=== PATIENT | male | born 1970 | race Caucasian/White ===

== ENCOUNTER 2023-08-09 13:11 | Inpatient (IN) ==
[2023-08-09] MEDS ORDERED: MULTI-VITAMIN INFUSION 10 ML, THIAMINE HCL 100 MG, FOLIC ACID 1 MG in SODIUM CHLORIDE 0... IV ONE (13:28)
[2023-08-09] MEDS ORDERED: SODIUM CHLORIDE 0.9% 1,000 ML IV ONE ×2 (13:28→15:31)
[2023-08-09] MEDS ORDERED: THIAMINE HCL 200 MG in SODIUM CHLORIDE 0.9% 50 ML IV STA (13:28)
[2023-08-09] MEDS ORDERED: ALBUT/IPRATROP 3MG/0.5MG NEB 3 ML VIAL NEB STA (13:29)
[2023-08-09] MEDS ORDERED: ALBUT/IPRATROP 3MG/0.5MG NEB 3 ML VIAL NEB SCH (13:29)
[2023-08-09] MEDS ORDERED: guaiFENesin 600 MG TABCR PO STA (13:29)
[2023-08-09] MEDS ORDERED: SODIUM CHLORIDE 0.65% NA SOLN 45 ML (OCEAN) ONE (13:29)
[2023-08-09] MEDS ORDERED: guaiFENesin 600 MG TABCR PO SCH (13:29)
[2023-08-09] MEDS ORDERED: SODIUM CHLORIDE 0.65% NA SOLN 45 ML (OCEAN) SCH (13:29)
--- NOTE | 2023-08-09 13:49 | Emergency Department Note ---
Impression & Plan Sepsis, Multifocal pneumonia, Hypokalemia, Hyponatremia, Hypomagnesemia, Influenza A, Pancytopenia, Hypoxia, Alcohol use ED Provider Note NAME: INDERJIT LO AGE: 52 SEX: M ARRIVES VIA: Walk-In INFORMANT: Patient ED PROVIDER(S): Garfield Haddad MD CHIEF COMPLAINT: Shortness of breath PLAN: Disposition: Admit MEDICAL DECISION MAKING: The patient is a pleasant 52-year-old gentleman with a past medical history of everyday smoking, frequent alcohol use, homelessness who presents to emergency department via walk-in for evaluation of worsening cough congestion, shortness of breath, body aches that he reports been going on for the past 2 weeks. He reports he also had a mechanical fall approximately 2 weeks ago when he tripped over a parking pillar hitting his face. He did not seek medical attention at that time. He reports over the past week his symptoms have worsened associated nausea vomiting diarrhea. He reports tightness in his chest where it is difficult to take a full breath. Of note, the patient did arrive to emergency department during time of high volume, acuity and prolonged emergency department waiting times. On my evaluation the patient is uncomfortable but no acute distress, afebrile with blood pressure initially 90s/60s in triage with heart in the 90s. O2 saturation was 90% on room air. He appears clinically dry. He has wheezes and rhonchi bilateral lower lung hare with normal respiratory effort. He has subacute left gita-obital ecchymosis and subacute 1cm linear left eyebrow laceration that has healed on its own. There is suspected possible old nasal fracture as well without nasal laceration. EKG without overt acute ischemia. Chest x-ray demonstrates multifocal pneumonia. WBC 4.4K with lymphopenia 0.72. There is mild left shift of 0.24 K. H/H 9.7/25.7 and platelets 66 K all without prior for comparison though could be related to viral illness as well as alcohol use. VBG is unremarkable. Chemistry without metabolic acidosis. Sodium 127 with relatively normal glucose likely related to poor solute intake and alcohol consumption. Potassium 2.8 with IV repletion initiated. Magnesium is 1.6 and phosphorus 1.9 with IV repletion initiated. LFTs with total Rishi 3.0 and direct bilirubin 1.6 with AST 75 but with normal alk phos and so nonspecific. Initial high-sensitivity troponin is 23, mildly above upper limit of normal with repeat 26.7, essentially unchanged. Lipase is not elevated. Procalcitonin is elevated at 0.9 consistent with suspicion for bacterial pneumonia in the setting of influenza A H1 2009 infection confirmed on PCR testing. Patient was treated with IV fluid hydration with 30 cc/kg including 2 L of normal saline and 1 L of normal saline via banana bag. Blood pressure had stabilized and heart rate improved to the 80s. Patient was treated for pneumonia with initial dose of IV Zosyn as well as IV doxycycline for atypical coverage. MRSA swab was ordered. Additional treatment with DuoNeb and Solu- Medrol for component of COPD exacerbation. Findings reviewed with the patient and he does agree with plan for admission for further management. CT imaging ordered for additional characterization of the patient's presentation. Case was discussed with Rosalba Viramontes, with Dr. Brent cmcraryist who will evaluate the patient for admission. Respiratory viral panel/[employer] did subsequently result was positive for influenza A per above. Admitting team was aware. Additionally, CT of the head was negative for ICH. Note is made of likely subacute nasal fracture given the clinical context. Pansinus disease is also seen. CT of the chest was negative for PE. Multifocal pneumonia is further characterized. Lymphadenopathy likely reactive to this. CT of the abdomen pelvis was negative for acute intra- abdominal process. Note is made of hepatic steatosis as well as cholelithiasis without evidence of cholecystitis. Trace small amount of ascites is noted. Further management per admitting team. Triage Nursing notes reviewed and agree them. Prior/external medical records reviewed Vital Signs: reviewed Differential diagnosis: Sepsis, UTI, pneumonia, metabolic, electrolyte abnormalities, cardiac sources, intracerebral event, toxicologic, neurologic, as well as other pathologies. ER treatment provided: See below. Diagnostics interpreted by me: ECG: Sinus rhythm with PACs, 86 bpm, no ectopy, no overt ST elevation or depression, QTc 509, QRS 102. Cardiac Monitoring: An order for continuous cardiac monitoring was placed and demonstrated Sinus rhythm with PACs, 86 bpm, no ectopy. Laboratory studies: See below Imaging studies: See below Consultation(s): Rosalba Viramontes, with Dr. Brent Navarrete hospitalist HPI: The patient is a pleasant 52-year-old gentleman with a past medical history of everyday smoking, frequent alcohol use, homelessness who presents to emergency department via walk-in for evaluation of worsening cough congestion, shortness of breath, body aches that he reports been going on for the past 2 weeks. He reports he also had a mechanical fall approximately 2 weeks ago when he tripped over a parking pillar hitting his face. He did not seek medical attention at that time. He reports over the past week his symptoms have worsened associated nausea vomiting diarrhea. He reports tightness in his chest where it is difficult to take a full breath. ROS: See above HPI for pertinent positives & negatives. A total of 10 systems reviewed and were otherwise negative. VITALS:See Below PHYSICAL EXAMINATION: GENERAL: Awake, alert, unkempt, ill-appearing, in no distress HENT: Normocephalic, atraumatic. Subacute left gita-obital ecchymosis and subacute 1cm linear left eyebrow laceration that has healed on its own. There is suspected possible old nasal fracture as well without nasal laceration. Oropharynx with dry mucous membranes and otherwise unremarkable. EYES: Normal conjunctiva. Sclera non-icteric. NECK: Supple. No nuchal rigidity. FROM. No JVD. RESPIRATORY: Wheezing rhonchi bilateral lower lung hare. No significant increased work of breathing. CARDIAC: Regular rate, normal rhythm. Extremities warm and well perfused. Pulses equal. ABDOMEN: Soft, non-distended. No tenderness to palpation. No rebound or guarding. No masses. RECTAL: Deferred. MUSCULOSKELETAL: Chest examination reveals no tenderness. The back is symmetrical on inspection without obvious abnormality. There is no CVA tenderness to palpation. No joint edema. LOWER EXTREMITIES: Calves are equal size bilaterally and non-tender. No edema. No discoloration. NEURO: Normal sensorium. No sensory or motor deficits noted. SKIN: No rash or jaundice noted. ED COURSE: Critical Care: I have personally spent greater than 65 minutes of critical care time in the direct management of this patient. This includes bedside care, interpretation of diagnostic studies, and testing, discussion with consultants, patient, and family members, and other required patient management activities. This 65 minutes is in excess of all separately billable procedures. Garfield Haddad MD Past Med/Surg History Medical History Homeless Current every day smoker Alcohol use Patient denies significant medical history Surgical History S/P cataract extraction right eye History of tonsillectomy History of hernia surgery INFANCY Family History Mother Stroke Diabetes Other Colorectal cancer Heart disease Social History Smoking Status: Current every day smoker Cigarettes Per Day: 1 PPD/ADVISED NPO; Second Hand Exposure: No; Do You Dip or Chew Tobacco: No; Hx Alcohol Use: Yes (6 PACK PER WEEK) Hx Substance Use: No Preferred Language: Lao Communication Ability: Effective Imitation Marble Mechanic Required: No Beliefs That Will Affect Care: None Current Living Situation: Other Current Living Situation Comment: STAYING BETWEEN PEOPLE NOW FAMILY/FRIENDS Feels Safe at Home: Yes Safety Concerns: Feels Safe At This Time Assistive Devices: None Allergies Allergies Allergy/AdvReac Type Severity Reaction Status Date / Time Penicillins Allergy Unknown PT WOULD Verified 08/09/23 16:03 NOT SAY WHAT HIS REACTION WAS. Home Meds Home Medications Medication Instructions Recorded Confirmed No Known Home Medications 08/09/23 08/09/23 Results & Data (ED) Vital Signs Vital Signs - 24 hr 08/09/23 13:15 08/09/23 14:12 08/09/23 14:14 Temperature 36.1 C L Temperature Source Temporal Artery Scan Pulse Rate 92 H Pulse Rate [Apical] 83 Respiratory Rate 20 22 Blood Pressure 96/66 L Blood Pressure [Right Arm] 119/76 Blood Pressure Mean 76 Blood Pressure Mean [Right Arm] 90 Pulse Oximetry 90 91 91 Oxygen Delivery Method Room Air Room Air Room Air Sepsis Recent Fever Within 48 Hours No Sepsis New/Unexplained Change in Mental Status N/A Sepsis Action Taken by Nursing No Action Required 08/09/23 14:27 Temperature Temperature Source Pulse Rate 80 Pulse Rate [Apical] Respiratory Rate Blood Pressure Blood Pressure [Right Arm] Blood Pressure Mean Blood Pressure Mean [Right Arm] Pulse Oximetry Oxygen Delivery Method Sepsis Recent Fever Within 48 Hours Sepsis New/Unexplained Change in Mental Status Sepsis Action Taken by Nursing Laboratory Data Attestation: I reviewed the patient's lab results. 08/09/23 13:45 01/10/24 13:45 Lab Results 08/09/23 08/09/23 08/09/23 Range/Units 13:45 14:15 14:49 WBC 4.48 L (4.8-10.8) K/ul RBC 2.28 L (4.70-6.10) M/uL Hgb 9.7 L (14.0-18.0) g/dl Hct 25.7 L (42.0-52.0) % MCV 112.7 H (80.0-100.0) fL MCH 42.5 H (25.0-34.0) pg MCHC 37.7 H (32.0-36.0) g/dL RDW Std Deviation 65.6 H (36.4-46.3) fL RDW Coeff of Ham 16.0 H (11.5-14.5) % Plt Count 66 L (130-400) K/uL MPV 12.0 (9.4-12.4) fL Immature Gran % (Auto) 5.4 % Neut % (Auto) 73.0 % Lymph % (Auto) 16.1 % Hodgeman % (Auto) 4.7 % Eos % (Auto) 0.4 % Baso % (Auto) 0.4 % Neut # (Auto) 3.27 (1.40-6.50) K/uL Lymph # (Auto) 0.72 L (1.20-3.40) K/uL Hodgeman # (Auto) 0.21 (0.11-0.59) K/uL Eos # (Auto) 0.02 (0.00-0.50) K/uL Baso # (Auto) 0.02 (0.00-0.20) K/uL Immature Gran # (Auto) 0.24 H (0.01-0.20) K/uL Absolute Nucleated RBC 0.11 (0.00-0.12) K/uL Nucleated RBC % (auto) 2.5 % Dohle Bodies 1+ Platelet Estimate Decreased L (Normal) Polychromasia 1+ Macrocytosis Present VBG pH 7.39 (7.36-7.41) VBG pCO2 48 (38-50) mmHg VBG pO2 21 mmHg VBG HCO3 29 mmol/L VBG O2 Saturation < 60.0 % VBG Base Excess 3.3 mEq/L Sodium 127 L (136-145) mmol/L Potassium 2.8 L (3.5-5.1) mmol/L Chloride 89 L (98-107) mmol/L Carbon Dioxide 27 (21-32) mmol/L Anion Gap 11 (3-11) BUN 18 (6-23) mg/dl Creatinine 1.18 (0.6-1.4) mg/dl Est Cr Clr Drug Dosing 91.4 ml/min Est GFR ( Amer) 82.9 ml/min Est GFR (Non-Af Amer) 71.5 ml/min BUN/Creatinine Ratio 15.3 (10-20) Glucose 119 H (70-99(Fasting)) mg/dl Osmolality 270 L (280-300) mOsm/kg Lactate 3.9 H* (0.4-2.0) mmol/L Calcium 7.4 L (8.6-10.3) mg/dl Phosphorus 1.9 L (2.5-4.9) mg/dl Magnesium 1.6 L (1.7-2.4) mg/dl Total Bilirubin 3.0 H (0.2-1.0) mg/dl Direct Bilirubin 1.6 H (0-0.2) mg/dl AST 75 H (13-39) U/L ALT 25 (7-52) U/L Alkaline Phosphatase 37 (34-104) U/L Troponin I High Sens 23.9 H (0-20) pg/ml Total Protein 6.1 (6.0-8.3) gm/dl Albumin 2.6 L (3.4-5.0) gm/dl Lipase 21 (11-82) U/L Vitamin B12 (180-914) pg/ml Folate (>5.38) ng/ml Procalcitonin 0.90 H (0-0.5) ng/ml TSH 0.840 (0.300-4.500) uIu/ml Nasal Influ A H1 2008 PCR DETECTED A* (NotDetected) Ethyl Alcohol mg/dL < 10.0 (<10.0) mg/dl Adenovirus (PCR) Not Detected (NotDetected) Anaplasma Smear See Comment Babesia Smear See Comment B. pertussis DNA (PCR) Not Detected (NotDetected) B.parapertussis DNA PCR Not Detected (NotDetected) Lyme Disease IgG Ab Negative (Negative) Lyme Disease IgM Ab Negative (Negative) C. pneumoniae DNA (PCR) Not Detected (NotDetected) Coronavirus OC43 (PCR) Not Detected (NotDetected) Coronavirus HKU1 (PCR) Not Detected (NotDetected) Coronavirus 229E (PCR) Not Detected (NotDetected) SARS-CoV-2 (PCR) Not Detected (NotDetected) Coronavirus NL63 (PCR) Not Detected (NotDetected) Human Metapneumovir PCR Not Detected (NotDetected) Influenza Type B (PCR) Not Detected (NotDetected) M. pneumoniae (PCR) Not Detected (NotDetected) Parainfluenza 1 (PCR) Not Detected (NotDetected) Parainfluenza 2 (PCR) Not Detected (NotDetected) Parainfluenza 3 (PCR) Not Detected (NotDetected) Parainfluenza 4 (PCR) Not Detected (NotDetected) RSV (PCR) Not Detected (NotDetected) Entero/Rhino (PCR) Not Detected (NotDetected) 08/09/23 Range/Units 15:25 WBC (4.8-10.8) K/ul RBC (4.70-6.10) M/uL Hgb (14.0-18.0) g/dl Hct (42.0-52.0) % MCV (80.0-100.0) fL MCH (25.0-34.0) pg MCHC (32.0-36.0) g/dL RDW Std Deviation (36.4-46.3) fL RDW Coeff of Ham (11.5-14.5) % Plt Count (130-400) K/uL MPV (9.4-12.4) fL Immature Gran % (Auto) % Neut % (Auto) % Lymph % (Auto) % Hodgeman % (Auto) % Eos % (Auto) % Baso % (Auto) % Neut # (Auto) (1.40-6.50) K/uL Lymph # (Auto) (1.20-3.40) K/uL Hodgeman # (Auto) (0.11-0.59) K/uL Eos # (Auto) (0.00-0.50) K/uL Baso # (Auto) (0.00-0.20) K/uL Immature Gran # (Auto) (0.01-0.20) K/uL Absolute Nucleated RBC (0.00-0.12) K/uL Nucleated RBC % (auto) % Dohle Bodies Platelet Estimate (Normal) Polychromasia Macrocytosis VBG pH (7.36-7.41) VBG pCO2 (38-50) mmHg VBG pO2 mmHg VBG HCO3 mmol/L VBG O2 Saturation % VBG Base Excess mEq/L Sodium (136-145) mmol/L Potassium (3.5-5.1) mmol/L Chloride (98-107) mmol/L Carbon Dioxide (21-32) mmol/L Anion Gap (3-11) BUN (6-23) mg/dl Creatinine (0.6-1.4) mg/dl Est Cr Clr Drug Dosing ml/min Est GFR ( Amer) ml/min Est GFR (Non-Af Amer) ml/min BUN/Creatinine Ratio (10-20) Glucose (70-99(Fasting)) mg/dl Osmolality (280-300) mOsm/kg Lactate (0.4-2.0) mmol/L Calcium (8.6-10.3) mg/dl Phosphorus (2.5-4.9) mg/dl Magnesium (1.7-2.4) mg/dl Total Bilirubin (0.2-1.0) mg/dl Direct Bilirubin 1.6 H (0-0.2) mg/dl AST (13-39) U/L ALT (7-52) U/L Alkaline Phosphatase (34-104) U/L Troponin I High Sens 26.7 H (0-20) pg/ml Total Protein (6.0-8.3) gm/dl Albumin (3.4-5.0) gm/dl Lipase (11-82) U/L Vitamin B12 1012 H (180-914) pg/ml Folate 7.08 (>5.38) ng/ml Procalcitonin (0-0.5) ng/ml TSH (0.300-4.500) uIu/ml Nasal Influ A H1 2008 PCR (NotDetected) Ethyl Alcohol mg/dL (<10.0) mg/dl Adenovirus (PCR) (NotDetected) Anaplasma Smear Babesia Smear B. pertussis DNA (PCR) (NotDetected) B.parapertussis DNA PCR (NotDetected) Lyme Disease IgG Ab (Negative) Lyme Disease IgM Ab (Negative) C. pneumoniae DNA (PCR) (NotDetected) Coronavirus OC43 (PCR) (NotDetected) Coronavirus HKU1 (PCR) (NotDetected) Coronavirus 229E (PCR) (NotDetected) SARS-CoV-2 (PCR) (NotDetected) Coronavirus NL63 (PCR) (NotDetected) Human Metapneumovir PCR (NotDetected) Influenza Type B (PCR) (NotDetected) M. pneumoniae (PCR) (NotDetected) Parainfluenza 1 (PCR) (NotDetected) Parainfluenza 2 (PCR) (NotDetected) Parainfluenza 3 (PCR) (NotDetected) Parainfluenza 4 (PCR) (NotDetected) RSV (PCR) (NotDetected) Entero/Rhino (PCR) (NotDetected) Administered Medications Albuterol (Albut/Ipratrop 3mg/0.5mg Neb 3 Ml Vial) 3 ml NEB Q4R FOR[facility]LY [facility], 1928–1983; Protocol Stop: 09/08/23 18:59 Last Admin: 08/09/23 19:41 Dose: 3 ml Documented By: FLORESITA Benzonatate (Benzonatate 100 Mg Capsule) 100 mg PO TID FOR[facility]LY [facility], [facility]–1983 Stop: 09/08/23 20:59 Last Admin: 08/09/23 20:39 Dose: 100 mg Documented By: DAMASO Sodium Chloride (Nss) 1,000 mls @ 125 mls/hr IV .Q8H FOR[facility], [facility]–1983 Stop: 08/10/23 02:07 Last Admin: 08/09/23 20:06 Dose: 125 mls/hr Documented By: DAMASO Potassium Chloride (Potassium Chloride Crtab 20 Meq Tabcr) 40 meq PO Q4H FOR[facility], 1928–1983 Stop: 08/09/23 23:31 Last Admin: 08/09/23 20:39 Dose: 40 meq Documented By: DAMASO Discontinued Medications Albuterol (Albut/Ipratrop 3mg/0.5mg Neb 3 Ml Vial) 3 ml NEB TODAY@1329 FOR[facility], 1928–1983; Protocol Stop: 08/09/23 18:00 Last Admin: 08/09/23 16:23 Dose: 3 ml Documented By: CHASTITY Guaifenesin (Guaifenesin 600 Mg Tabcr) 1,200 mg PO TODAY@1329 FOR[facility], [facility]–1983 Stop: 08/09/23 18:00 Last Admin: 08/09/23 16:23 Dose: 1,200 mg Documented By: CHASTITY Sodium Chloride (Nss) 1,000 mls @ 999 mls/hr IV .Q1H1M ONE Stop: 08/09/23 14:28 Last Infusion: 08/09/23 15:36 Dose: Infused Documented By: Admin: 08/09/23 14:09 Dose: 999 mls/hr Documented By: CAYDEN Multivitamins 10 ml/ Thiamine HCl 100 mg/ Folic Acid 1 mg/Sodium Chloride 1,011.2 mls @ 500 mls/hr IV .Q2H2M ONE Stop: 08/09/23 15:29 Last Infusion: 08/09/23 16:17 Dose: Infused Documented By: Admin: 08/09/23 14:09 Dose: 500 mls/hr Documented By: CAYDEN Thiamine HCl 200 mg/ Sodium (Chloride) 52 mls @ 210 mls/hr IV NOW STA Stop: 08/09/23 13:42 Last Infusion: 08/09/23 16:17 Dose: Infused Documented By: Admin: 08/09/23 15:55 Dose: 210 mls/hr Documented By: CHASTITY Doxycycline Hyclate 100 mg/ (Dextrose) 100 mls @ 50 mls/hr IV NOW STA Stop: 08/09/23 16:45 Last Infusion: 08/09/23 19:45 Dose: Infused Documented By: Admin: 08/09/23 15:59 Dose: 50 mls/hr Documented By: CHASTITY Cefepime HCl (Maxipime) 2,000 mg in 20 mls @ 5 mls/min IV NOW STA; Protocol Stop: 08/09/23 14:50 Last Admin: 08/09/23 15:53 Dose: 5 mls/min Documented By: CHASTITY Potassium Chloride (K Jani / Wtr) 10 meq in 100 mls @ 100 mls/hr IV Q1H GAIL Stop: 08/09/23 17:59 Last Admin: 08/09/23 20:34 Dose: 100 mls/hr Documented By: DAMASO Potassium Phosphate 9 mmol/ (Sodium Chloride) 253 mls @ 88 mls/hr IV ONE ONE Stop: 08/09/23 17:52 Last Infusion: 08/09/23 19:59 Dose: Infused Documented By: Admin: 08/09/23 16:48 Dose: 88 mls/hr Documented By: NRB Sodium Chloride (Nss) 1,000 mls @ 999 mls/hr IV .Q1H1M ONE Stop: 08/09/23 16:31 Last Admin: 08/09/23 19:18 Dose: Not Given Documented By: DTT Magnesium Sulfate/Dextrose (Magnesium Sulfate / D5w) 1 gm in 100 mls @ 200 mls/hr IV TODAY@1444,1514 [facility], [facility]–1983 Stop: 08/09/23 18:00 Last Infusion: 08/09/23 20:30 Dose: Infused Documented By: Admin: 08/09/23 20:00 Dose: 200 mls/hr Documented By: Infusion: 08/09/23 19:19 Dose: Infused Documented By: Admin: 08/09/23 18:40 Dose: 200 mls/hr Documented By: DTT Potassium Phosphate 15 mmol/ (Sodium Chloride) 255 mls @ 88 mls/hr IV ONE ONE Stop: 08/09/23 21:23 Last Admin: 08/09/23 20:03 Dose: 88 mls/hr Documented By: DAMASO Ioversol (Optiray 320 125ml) 116 ml IV ONCE ONE Stop: 08/09/23 15:43 Last Admin: 08/09/23 15:42 Dose: 116 ml Documented By: GEP Sodium Chloride (Sodium Chloride 0.65% Na Soln 45 Ml ([place])) 2 sprays NA TODAY@1329 FOR[facility], [facility]–1983 Stop: 08/09/23 18:00 Last Admin: 08/09/23 16:28 Dose: Not Given Documented By: NRB Imaging Data Radiologist's Impression: Chest X-Ray 08/09/23 13:24 XR chest 1V portable CLINICAL HISTORY: Sepsis. COMPARISON STUDY: Chest radiograph May 21, 2012. FINDINGS: Lung volumes are normal. No pneumothorax or pleural effusion is present. Bilateral lower lobe airspace opacities greater on the right. Patchy right upper lobe airspace opacity is also present. There is no evidence for pulmonary edema. Suspected hiatal hernia is present. IMPRESSION: Multifocal airspace opacities, greatest within the right lower lung. The findings favor multifocal pneumonia. Post radiographs to ensure resolution are recommended. ACT 112: Negative or not required by law. Electronically signed by: Frank Blevins M.D. 08/09/2023 1:59 PM Abdomen/Pelvis CT 08/09/23 14:47 CT OF THE ABDOMEN AND PELVIS WITH CONTRAST CLINICAL HISTORY: Sepsis, nausea and vomiting. COMPARISON STUDY: None. TECHNIQUE: Following IV administration of 116 mL of Optiray, axial images of the abdomen and pelvis were obtained from the lung bases to the proximal femurs. Images were reviewed in the axial, sagittal, and coronal planes. IV contrast was administered without complication. Automated exposure control was utilized for the study. A dose lowering technique was utilized adhering to the principles of ALARA. FINDINGS: Multifocal airspace opacities are noted within the visualized lungs. Please note that the chest CT will be reported separately. A small hiatal hernia is present. Several mildly enlarged lymph nodes within the inferior mediastinum measure up to 1.3 x 1.1 cm. No pneumatosis, free air or portal venous gas is present. There is hepatic steatosis. The liver is heterogeneous. There is no biliary or pancreatic ductal dilatation. Gallstones within the gallbladder are present. There is no evidence for acute cholecystitis. A small amount of abdominal and pelvic ascites is present. There is no proptosis. A 3 cm cystic lesion within the right kidney contains several septations with slightly thickened calcifications. No enhancing component is identified. Additional subcentimeter renal lesions are too small to characterize. There is sigmoid diverticulosis. No evidence for acute diverticulitis. No acute fractures are identified within the visualized skeletal structures IMPRESSION: 1. Findings suggestive of multifocal pneumonia, better depicted on the chest CT. Mildly enlarged mediastinal lymph nodes which are probably reactive but a follow-up chest CT in 3 months to ensure resolution is recommended. 2. No bowel obstruction. No bowel wall thickening. Colonic diverticulosis without evidence for acute diverticulitis. 3. Hepatic steatosis. Small amount of ascites within the abdomen and pelvis. 4. 3 cm cystic lesion within the lower pole of the right kidney. This reflects a mildly complicated cyst. This is considered Bosniak 2F. Follow-up renal protocol CT in 6 months to ensure stability is recommended. 5. Cholelithiasis. ACT 112: Positive. There are findings on this exam that require communication between the performing entity and the patient following Patient Test Result Information Act ([place] Act 112) guidelines. Electronically signed by: Frank Blevins M.D. 08/09/2023 4:41 PM Chest CTA 08/09/23 14:47 CHEST CTA for PULMONARY ARTERIES [address] DOSE: 3203.38 mGy.cm HISTORY: Shortness of breath, elevated troponin, r/o PE TECHNIQUE: Multiaxial CT images of the chest were performed following the intravenous administration of contrast to evaluate the pulmonary arteries. 3D/Maximal intensity projection images were also obtained. Sagittal and coronal reformations were also reviewed. A dose lowering technique was utilized adhering to the principles of ALARA. COMPARISON STUDY: Chest 08/09/2023. FINDINGS: The abdominal structures will be reported on the same day abdomen and pelvis CT. Normal caliber esophagus. The thyroid gland enhances normally. The heart is top normal in size. No pleural or pericardial effusions. Borderline enlarged mediastinal and bilateral hilar lymph nodes. Moderate coronary artery calcifications are present. There is distal paraesophageal lymphadenopathy with the dominant lymph node measuring 15 x 11 mm. Small fat-containing hiatal hernia is present. Normal caliber thoracic aorta with no evidence for a dissection. There is respiratory motion artifact. This results in nondiagnostic evaluation of the majority of the bilateral lower lobe subsegmental pulmonary arteries. However, the remaining pulmonary arteries show no filling defects to suggest a pulmonary embolus. No acute fractures within the chest. No pneumothorax. Mild paraseptal emphysema noted within the lung apices. Central bronchial wall thickening. There are multifocal patchy and nodular bilateral airspace opacities seen within the lungs. This is most pronounced within the right middle lobe. This favors a pneumonia. Dominant nodule within the right middle lobe on image 118 measures 7 mm. This likely represents a component of the inflammatory/infectious change. However, all recommended to ensure stability/resolution. IMPRESSION: 1. No evidence for a pulmonary embolus with limitations as described above. 2. Multifocal bilateral groundglass and nodular airspace opacities most pronounced within the right middle lobe. This favors a pneumonia. [address] follow-up recommended to ensure resolution of the small nodular densities. 3. Borderline enlarged mediastinal and bilateral hilar lymph nodes. There is also mild distal paraesophageal lymphadenopathy. This may be reactive. This also requires follow-up to ensure resolution/stability. ACT 112: Positive. There are findings on this exam that require communication between the performing entity and the patient following Patient Test Result Information Act ([place] Act 112) guidelines. Electronically signed by: Anil Lugo M.D. 08/09/2023 4:[address] 08/09/23 14:47 CT SCAN OF THE BRAIN WITHOUT IV CONTRAST CLINICAL HISTORY: Fall. COMPARISON STUDY: CT of the brain dated 05/19/2012. TECHNIQUE: Unenhanced axial CT scan of the brain is performed from the vertex to the skull base. A dose lowering technique was utilized adhering to the principles of ALARA. FINDINGS: Brain parenchyma: The brain parenchyma is normal in appearance. There is no hemorrhage, mass effect, or evidence of acute territorial ischemia by CT criteria. Delgadillo-white matter differentiation is preserved. No extra-axial fluid collection is seen. Ventricles, sulci, cisterns: Normal in configuration. Intracranial vasculature: There is atherosclerotic calcification of the cavernous carotid arteries. Calvarium: There is no depressed calvarial fracture. Age indeterminate nasal bone fractures are noted. Sinuses and mastoids: There is subtotal opacification of the maxillary, ethmoid, sphenoid, and left frontal sinuses. Thickening and sclerosis of the sinus john indicating chronicity. The mastoid air cells are well pneumatized. Orbits: The bony orbits are grossly intact. IMPRESSION: 1 No acute intracranial abnormality. 2. Pansinus disease as above. 3. Age indeterminate nasal bone fractures. Correlate clinically. ACT 112: Negative or not required by law. Electronically signed by: Taran Tam M.D. 08/09/2023 3:55 PM Discharge Plan Visit Data Chief Complaint: Flu Like Symptoms Stated Complaint: CONGESTION, FEVER ED Provider: Garfield Haddad Discharge Problem: Sepsis, Multifocal pneumonia, Hypokalemia, Hyponatremia, Hypomagnesemia, Influenza A, Pancytopenia, Hypoxia, Alcohol use Patient Disposition: Admitted As Inpatient Discharge Instructions Interventions: ED Discharge Assessment Last Done: 08/09/23 17:36 Discharge Problem: Sepsis Qualifiers: Sepsis type: sepsis due to unspecified organism Sepsis acute organ dysfunction status: unspecified Qualified Code(s): A41.9 - Sepsis, unspecified organism
--- NOTE | 2023-08-09 14:00 | XRay Report ---
XR chest 1V portable CLINICAL HISTORY: Sepsis. COMPARISON STUDY: Chest radiograph May 21, 2012. FINDINGS: Lung volumes are normal. No pneumothorax or pleural effusion is present. Bilateral lower lo be airspace opacities greater on the right. Patchy right upper lobe airspace opacity is also present. There is no evidence for pulmonary edema. Suspected hiatal hernia is present. IMPRESSION: Multifocal airspace opacities, greatest within the right lower lung. The findings favor multifocal pneumonia. Post radiographs to ensure resolution are recommended. ACT 112: Negative or not required by law. Electronically signed by: Frank Blevins M.D. 08/09/2023 1:59 PM
[2023-08-09 14:30] LABS: Albumin Level 2.6 gm/dl (3.4-5.0); BUN Creatinine Ratio 15.3 (10-20); Bilirubin Direct 1.6 mg/dl (0-0.2); Calcium 7.4 mg/dl (8.6-10.3); Creatinine Clr Calc Pharmacy 91.4 ml/min; Est GFR (African American) 82.9 ml/min; Est GFR (Non-African American) 71.5 ml/min; Magnesium 1.6 mg/dl (1.7-2.4); Phosphorus 1.9 mg/dl (2.5-4.9); Potassium 2.8 mmol/L (3.5-5.1); Total Protein 6.1 gm/dl (6.0-8.3)
[2023-08-09 14:34] LABS: Troponin I High Sensitivity 23.9 pg/ml (0-20)
[2023-08-09] MEDS ORDERED: POTASSIUM PHOS 3 MMOL/1 ML INFUSION IV STA ×2 (14:43→18:08)
[2023-08-09 14:44] LABS: Thyroid Stimulating Hormone 0.84 uIu/ml (0.300-4.500)
[2023-08-09] MEDS ORDERED: MAGNESIUM SULFATE / D5W 1 GM/100 ML BAG IV SCH (14:44)
[2023-08-09] MEDS ORDERED: DOXYCYCLINE HYCLATE 100 MG in DEXTROSE 5% MINI-B 100 ML IV STA (14:46)
[2023-08-09] MEDS ORDERED: CEFEPIME 2,000 MG/20 ML VIAL IV STA (14:47)
[2023-08-09 15:00] LABS: Base Excess VBG 3.3 mEq/L; HCO3 VBG 29 mmol/L; Oxygen Saturation VBG < 60.0 %; PCO2 VBG 48 mmHg (38-50); PO2 VBG 21 mmHg; pH VBG 7.39 (7.36-7.41)
[2023-08-09] MEDS ORDERED: POTASSIUM PHOSPHATE 9 MMOL in SODIUM CHLORIDE 0.9% 250 ML IV ONE (15:00)
[2023-08-09 15:17] LABS: Hematocrit (blood only) 25.7 % (42.0-52.0); Hemoglobin 9.7 g/dl (14.0-18.0); Mean Corpuscular Hemoglobin 42.5 pg (25.0-34.0); Mean Corpuscular Hgb Conc 37.7 g/dL (32.0-36.0); Mean Corpuscular Volume 112.7 fL (80.0-100.0); Nucleated RBC # (auto) 0.11 K/uL (0.00-0.12); Nucleated RBC % (auto) 2.5 %; Platelet Count 66 K/uL (130-400); RDW Standard Deviation 65.6 fL (36.4-46.3); Red Blood Count 2.28 M/uL (4.70-6.10); White Blood Count 4.48 K/ul (4.8-10.8)
[2023-08-09 15:27] LABS: Adenovirus PCR Not Detected (NotDetected); Bordetella parapertussis PCR Not Detected (NotDetected); Bordetella pertussis PCR Not Detected (NotDetected); Chlamydia pneumoniae PCR Not Detected (NotDetected); Coronavirus 229E PCR Not Detected (NotDetected); Coronavirus CoV-2 (COVID19)PCR Not Detected (NotDetected); Coronavirus HKU1 PCR Not Detected (NotDetected); Coronavirus NL63 PCR Not Detected (NotDetected); Coronavirus OC43PCR Not Detected (NotDetected); Human Metapneumovirus PCR Not Detected (NotDetected); Influenza B PCR Not Detected (NotDetected); Mycoplasma pneumoniae PCR Not Detected (NotDetected); Parainfluenza Virus 1 PCR Not Detected (NotDetected); Parainfluenza Virus 2 PCR Not Detected (NotDetected); Parainfluenza Virus 3 PCR Not Detected (NotDetected); Parainfluenza Virus 4 PCR Not Detected (NotDetected); Respiratory Syncytial VirusPCR Not Detected (NotDetected); Rhinovirus/Enterovirus PCR Not Detected (NotDetected)
[2023-08-09 15:38] LABS: Influenza A (H1 2009) PCR DETECTED (NotDetected)
[2023-08-09 15:41] LABS: Basophils # (auto) 0.02 K/uL (0.00-0.20); Basophils % (auto) 0.4 %; Dohle Bodies 1+; Eosinophils # (auto) 0.02 K/uL (0.00-0.50); Eosinophils % (auto) 0.4 %; Immature Granulocytes # (auto) 0.24 K/uL (0.01-0.20); Immature Granulocytes % (auto) 5.4 %; Lymphocytes # (auto) 0.72 K/uL (1.20-3.40); Lymphocytes % (auto) 16.1 %; Macrocytosis Present; Monocytes # (auto) 0.21 K/uL (0.11-0.59); Monocytes % (auto) 4.7 %; Neutrophils # (auto) 3.27 K/uL (1.40-6.50); Platelet Estimate Decreased (Normal); Polychromasia 1+
[2023-08-09] MEDS ORDERED: OPTIRAY 320 125ml IV ONE (15:42)
--- NOTE | 2023-08-09 15:49 | History & Physical Report ---
Date of Service August 09, 2023 Assessment & Plan (1) Sepsis: (2) Hypoxia: (3) Multifocal pneumonia: (4) Influenza A: Plan: - Admit to tele - CXR reviewed personally showing: Multifocal airspace opacities, greatest within the right lower lung. - CTA chest was reviewed personally, negative for pulmonary embolism, shows borderline enlarged mediastinal and bilateral hilar lymph nodes, should have follow-up chest imaging in 6 months to show that this resolves - Influenza A positive on serology - Upon my eval, pt hypoxic with O2 at 88% on room air, will add O2 via oximask as he has tissue placed up nostrils bilaterally as reports severe rhinorrhea/congestion recently - Hypotensive initially with BP 90s/60s improved s/p 2 L fluids, continue NSS at 125ml/hr, lactic acid initially 3.9, recheck 2.4 - Noted all CBC counts are pancytopenic : wbc 4.48, hgb 9.7, plt 66 - may be explained by acute viral illness? checking tick borne illnesses, check peripheral smear, folic acid, thiamine - Continue supportive care with mucinex, incentive spirometry, flutter, tessalon pearls, duonebs, no tamiflu as pt with sx x 10 days - Started on cefepime and doxycycline IV, continue - Pro-Henry 0.9 (5) Fall: Plan: - CT head obtained due to fall with Left orbital ecchymosis, shows age indeterminate nasal fracture and sinus opacification - thickening/sclerosis - Seizure precautions - Consult oromaxillofacial surg for evaluation (6) Hypokalemia: (7) Hyponatremia: (8) Hypomagnesemia: Plan: - Replace electolyte abnormalities, monitor on tele - Given in the ED: K 2.8-- 20 meq IV, Mag 1.6--2 g IV o, phos 1.9 --potassium phos 9 mmol... Will add additional 15 mmol potassium phosphate IV - Na 127 - fluids as above already given, urine osm, urine sodium ordered in the ER, add urine creatinine - Recheck lytes on labs at 2200 - EKG without acute abnormalities, QTc is noted to be prolonged at 509, repeat am EKG, hold QTc prolonging agents such as Zofran, pt is not on meds that would have caused such - Consider Echo (9) Pancytopenia: Plan: - MCV elevated, anemia present - check folic acid and thiamine levels now - Peripheral smear in am - Possibly due to alcohol use? Follow tick borne illnesses (10) Tobacco use: Plan: - Nicotine patch ordered, smokes 1/2 ppd currently, weaning himself down. Started smoking at age 17, cessation encouraged at bedside (11) Alcohol use: Plan: -Patient states he drinks every 4 to days on average, several beers, Last drink he reports was over 7 days ago, alcohol level on admission is zero. Denies hx of withdrawal. - Alcohol withdrawal scoring ordered, monitor - cessation encouraged DVT PPx: teds, scds Lines: 2 PIV FEN/GI allow heart healthy diet CODE: Conditional: Okay with CPR, no intubation or BiPAP Dispo: Homeless, stays in the Out of the cold half-way, likely to remain in the hospital x 1-2 days History of Present Illness Chief Complaint: Flu like symptoms x 2 weeks Primary Care Provider: NO PCP This is a 52 yo M with PMHX of chronic tobacco use, homelessness and is helped by "Out of the Cold", smokes 1/2 ppd and is attempting to wean down, alcohol use occasionally with beer ( last drink was over a week ago), and sustained a fall on Jul 31 due to coughing very hard after taking 2 drags off a cigarette, and fell down outside hitting his face. He has a ecchymotic area under the left eye orbit who presents with worsening flulike symptoms including cough, congestion, fever/chills, nausea and vomiting for the past 10 days. He states that he feels very ill, generalized malaise, and has had difficulty with keeping down oral intake, states that every time he attempts to eat or drink something he feels dry heaves and has vomited. Feels dehydrated currently. Denies any abdominal pain, no diarrhea or constipation. He admits to having fevers although does not have a thermometer to take his temperature. He does not take any medications routinely. He states overall he has been a very healthy person in life, has never had something like this happen before. Findings upon initial presentation to the ER significant as the patient is pancytopenic with a WBC of 4.48, Hgb 9.7, HCT 25.7, platelets 66, hyponatremic 127, hypokalemic 2.8, Phos 1.9 and magnesium of 1.6. He has elevated bilirubin of 3.0, direct 1.6, AST 75 concerning for for alcohol use although that is negative upon presentation today. His procalcitonin is 0.9 and troponin is mildly elevated at 23.9 he has been started on prophylactic antibiotics with IV Zosyn for concern for possible aspiration, has been administered 2 L of fluids, 1 was a banana bag. Lactic acid of 3.[address] abdomen pelvis and head are pending.Respiratory bio fire is positive for influenza. Initially he was hypotensive at 90s/60s, which has improved status post fluid administration to L. Allergies Allergy/AdvReac Type Severity Reaction Status Date / Time Penicillins Allergy Unknown PT WOULD Verified 08/09/23 16:03 NOT SAY WHAT HIS REACTION WAS. Home Medications Medication Instructions Recorded Confirmed Type No Known Home Medications 08/09/23 08/09/23 History Past Med/Surg History Medical History Homeless Current every day smoker Alcohol use Patient denies significant medical history Surgical History S/P cataract extraction right eye History of tonsillectomy History of hernia surgery INFANCY Family History Mother Stroke Diabetes Other Colorectal cancer Heart disease Social History Smoking Status: Current every day smoker Cigarettes Per Day: 1 PPD/ADVISED NPO; Second Hand Exposure: No; Do You Dip or Chew Tobacco: No; Hx Alcohol Use: Yes (6 PACK PER WEEK) Hx Substance Use: No Preferred Language: Japanese Communication Ability: Effective Authorization Representative Required: No Beliefs That Will Affect Care: None Current Living Situation: Other Current Living Situation Comment: STAYING BETWEEN PEOPLE NOW FAMILY/FRIENDS Feels Safe at Home: Yes Safety Concerns: Feels Safe At This Time Assistive Devices: None Review of Systems Review of Systems: Constitutional: + fever, sweats and chills, + generalized malaise, +fatigue Eyes: No diplopia, no worsening or blurred vision ENT: normal hearing, no trouble swallowing Respiratory: +cough, sputum is yellow/green, no hemoptysis, dyspnea on exertion Cardiovascular: No chest pain, tightness or palpitations Abdomen: No pain, +poor oral intake, + nausea, +vomiting, no diarrhea or constipation Musculoskeletal: No joint pain, calf pain, swelling Neurologic: As per HPI, + recent fall, + generalized weakness, no numbness/tingling, or balance problems Psychiatric: No anxiety or depression Skin: No rash or itch Physical Exam Physical Exam: General: awake, alert, no apparent distress, white, male Head: Normocephalic, ecchymosis around the left orbit status post fall ENT: PERRL, EOMI, no pharyngeal exudate, mucous membranes very dry Chest: On room air patient has O2 sats at 88%, will place on oxygen, rales at right lower lobe, diminished breath sounds throughout, no wheeze or rhonchi Cardiac: Regular rate and rhythm, no murmur, no JVD, normal peripheral pulses, good capillary refill Abdominal: NABS x 4 quadrants, soft, nondistended, nontender to palpation, no rebound or guarding Extremities: Normal inspection, no peripheral edema or erythema, calfs nontender to palpation Psych: Normal mood and affect Neuro: AAO x 3, strength intact bilaterally and rated 5/5, no motor deficits, speech is clear, no peripheral sensory deficits Results & Data Results & Data Vital Signs (Past 12 Hours) Vital Signs Temp Pulse Pulse Resp BP BP Pulse Ox 08/09/23 14:27 80 08/09/23 14:14 91 08/09/23 14:12 83 22 119/76 91 08/09/23 13:15 36.1 C L 92 H 20 96/66 L 90 O2 Del Method 08/09/23 14:27 08/09/23 14:14 Room Air 08/09/23 14:12 Room Air 08/09/23 13:15 Room Air Laboratory Results 08/09/23 14:49 Aerobic Blood Culture - Pending Blood Anaerobic Blood Culture - Pending 08/09/23 13:45 Aerobic Blood Culture - Pending Blood Anaerobic Blood Culture - Pending 08/09/23 08/09/23 08/09/23 15:25 14:49 14:15 WBC RBC Hgb Hct MCV MCH MCHC RDW Std Deviation RDW Coeff of Ham Plt Count MPV Immature Gran % (Auto) Neut % (Auto) Lymph % (Auto) [place] % (Auto) Eos % (Auto) Baso % (Auto) Neut # (Auto) Lymph # (Auto) [place] # (Auto) Eos # (Auto) Baso # (Auto) Immature Gran # (Auto) Absolute Nucleated RBC Nucleated RBC % (auto) Dohle Bodies Platelet Estimate Polychromasia Macrocytosis VBG pH 7.39 VBG pCO2 48 VBG pO2 21 VBG HCO3 29 VBG O2 Saturation < 60.0 VBG Base Excess 3.3 Sodium Potassium Chloride Carbon Dioxide Anion Gap BUN Creatinine Est Cr Clr Drug Dosing Est GFR ( Amer) Est GFR (Non-Af Amer) BUN/Creatinine Ratio Glucose Osmolality Lactate Calcium Phosphorus Magnesium Total Bilirubin Direct Bilirubin 1.6 H AST ALT Alkaline Phosphatase Troponin I High Sens 26.7 H Total Protein Albumin Lipase Procalcitonin TSH Nasal Influ A H1 2008 PCR DETECTED A* Ethyl Alcohol mg/dL Adenovirus (PCR) Not Detected Anaplasma Smear Babesia Smear B. pertussis DNA (PCR) Not Detected B.parapertussis DNA PCR Not Detected C. pneumoniae DNA (PCR) Not Detected Coronavirus OC43 (PCR) Not Detected Coronavirus HKU1 (PCR) Not Detected Coronavirus 229E (PCR) Not Detected SARS-CoV-2 (PCR) Not Detected Coronavirus NL63 (PCR) Not Detected Human Metapneumovir PCR Not Detected Influenza Type B (PCR) Not Detected M. pneumoniae (PCR) Not Detected Parainfluenza 1 (PCR) Not Detected Parainfluenza 2 (PCR) Not Detected Parainfluenza 3 (PCR) Not Detected Parainfluenza 4 (PCR) Not Detected RSV (PCR) Not Detected Entero/Rhino (PCR) Not Detected 08/09/23 13:45 WBC 4.48 L RBC 2.28 L Hgb 9.7 L Hct 25.7 L MCV 112.7 H MCH 42.5 H MCHC 37.7 H RDW Std Deviation 65.6 H RDW Coeff of Ham 16.0 H Plt Count 66 L MPV 12.0 Immature Gran % (Auto) 5.4 Neut % (Auto) 73.0 Lymph % (Auto) 16.1 [place] % (Auto) 4.7 Eos % (Auto) 0.4 Baso % (Auto) 0.4 Neut # (Auto) 3.27 Lymph # (Auto) 0.72 L [place] # (Auto) 0.21 Eos # (Auto) 0.02 Baso # (Auto) 0.02 Immature Gran # (Auto) 0.24 H Absolute Nucleated RBC 0.11 Nucleated RBC % (auto) 2.5 Dohle Bodies 1+ Platelet Estimate Decreased L Polychromasia 1+ Macrocytosis Present VBG pH VBG pCO2 VBG pO2 VBG HCO3 VBG O2 Saturation VBG Base Excess Sodium 127 L Potassium 2.8 L Chloride 89 L Carbon Dioxide 27 Anion Gap 11 BUN 18 Creatinine 1.18 Est Cr Clr Drug Dosing 91.4 Est GFR ( Amer) 82.9 Est GFR (Non-Af Amer) 71.5 BUN/Creatinine Ratio 15.3 Glucose 119 H Osmolality 270 L Lactate 3.9 H* Calcium 7.4 L Phosphorus 1.9 L Magnesium 1.6 L Total Bilirubin 3.0 H Direct Bilirubin 1.6 H AST 75 H ALT 25 Alkaline Phosphatase 37 Troponin I High Sens 23.9 H Total Protein 6.1 Albumin 2.6 L Lipase 21 Procalcitonin 0.90 H TSH 0.840 Nasal Influ A H1 2008 PCR Ethyl Alcohol mg/dL < 10.0 Adenovirus (PCR) Anaplasma Smear See Comment Babesia Smear See Comment B. pertussis DNA (PCR) B.parapertussis DNA PCR C. pneumoniae DNA (PCR) Coronavirus OC43 (PCR) Coronavirus HKU1 (PCR) Coronavirus 229E (PCR) SARS-CoV-2 (PCR) Coronavirus NL63 (PCR) Human Metapneumovir PCR Influenza Type B (PCR) M. pneumoniae (PCR) Parainfluenza 1 (PCR) Parainfluenza 2 (PCR) Parainfluenza 3 (PCR) Parainfluenza 4 (PCR) RSV (PCR) Entero/Rhino (PCR) Diagnostic Findings Chest X-Ray 08/09/23 13:24 XR chest 1V portable CLINICAL HISTORY: Sepsis. COMPARISON STUDY: Chest radiograph May 21, 2012. FINDINGS: Lung volumes are normal. No pneumothorax or pleural effusion is present. Bilateral lower lobe airspace opacities greater on the right. Patchy right upper lobe airspace opacity is also present. There is no evidence for pulmonary edema. Suspected hiatal hernia is present. IMPRESSION: Multifocal airspace opacities, greatest within the right lower lung. The findings favor multifocal pneumonia. Post radiographs to ensure resolution are recommended. ACT 112: Negative or not required by law. Electronically signed by: Frank Blevins M.D. 08/09/2023 1:59 PM Chest CTA 08/09/23 14:47 CHEST CTA for PULMONARY ARTERIES CT DOSE: 3203.38 mGy.cm HISTORY: Shortness of breath, elevated troponin, r/o PE TECHNIQUE: Multiaxial CT images of the chest were performed following the intravenous administration of contrast to evaluate the pulmonary arteries. 3D/Maximal intensity projection images were also obtained. Sagittal and coronal reformations were also reviewed. A dose lowering technique was utilized adhering to the principles of ALARA. COMPARISON STUDY: Chest 08/09/2023. FINDINGS: The abdominal structures will be reported on the same day abdomen and pelvis CT. Normal caliber esophagus. The thyroid gland enhances normally. The heart is top normal in size. No pleural or pericardial effusions. Borderline enlarged mediastinal and bilateral hilar lymph nodes. Moderate coronary artery calcifications are present. There is distal paraesophageal lymphadenopathy with the dominant lymph node measuring 15 x 11 mm. Small fat-containing hiatal hernia is present. Normal caliber thoracic aorta with no evidence for a dissection. There is respiratory motion artifact. This results in nondiagnostic evaluation of the majority of the bilateral lower lobe subsegmental pulmonary arteries. However, the remaining pulmonary arteries show no filling defects to suggest a pulmonary embolus. No acute fractures within the chest. No pneumothorax. Mild paraseptal emphysema noted within the lung apices. Central bronchial wall thickening. There are multifocal patchy and nodular bilateral airspace opacities seen within the lungs. This is most pronounced within the right middle lobe. This favors a pneumonia. Dominant nodule within the right middle lobe on image 118 measures 7 mm. This likely represents a component of the inflammatory/infectious change. However, all recommended to ensure stability/resolution. IMPRESSION: 1. No evidence for a pulmonary embolus with limitations as described above. 2. Multifocal bilateral groundglass and nodular airspace opacities most pronounced within the right middle lobe. This favors a pneumonia. [address] follow-up recommended to ensure resolution of the small nodular densities. 3. Borderline enlarged mediastinal and bilateral hilar lymph nodes. There is also mild distal paraesophageal lymphadenopathy. This may be reactive. This also requires follow-up to ensure resolution/stability. ACT 112: Positive. There are findings on this exam that require communication between the performing entity and the patient following Patient Test Result Information Act ([place] Act 112) guidelines. Electronically signed by: Anil Lugo M.D. 08/09/2023 4:[address] 08/09/23 14:47 CT SCAN OF THE BRAIN WITHOUT IV CONTRAST CLINICAL HISTORY: Fall. COMPARISON STUDY: CT of the brain dated 05/19/2012. TECHNIQUE: Unenhanced axial CT scan of the brain is performed from the vertex to the skull base. A dose lowering technique was utilized adhering to the principles of ALARA. FINDINGS: Brain parenchyma: The brain parenchyma is normal in appearance. There is no hemorrhage, mass effect, or evidence of acute territorial ischemia by CT criteria. Delgadillo-white matter differentiation is preserved. No extra-axial fluid collection is seen. Ventricles, sulci, cisterns: Normal in configuration. Intracranial vasculature: There is atherosclerotic calcification of the cavernous carotid arteries. Calvarium: There is no depressed calvarial fracture. Age indeterminate nasal bone fractures are noted. Sinuses and mastoids: There is subtotal opacification of the maxillary, ethmoid, sphenoid, and left frontal sinuses. Thickening and sclerosis of the sinus john indicating chronicity. The mastoid air cells are well pneumatized. Orbits: The bony orbits are grossly intact. IMPRESSION: 1 No acute intracranial abnormality. 2. Pansinus disease as above. 3. Age indeterminate nasal bone fractures. Correlate clinically. ACT 112: Negative or not required by law. Electronically signed by: Taran aTm M.D. 08/09/2023 3:55 PM ECG Additional Comments: Reviewed personally showing sinus, few PACs, prolonged QTc of 509 Code Status & VTE Plan Code Status -Conditional code: Patient is okay with CPR and IV medications but does not want intubation or BiPAP Supervising Physician Co-Signing Physician Notes I have seen and examined the patient and have discussed the case with the provider above. I agree with the assessment and plan as stated. 52-year-old homeless man who smokes presented with 10 days of persistent respiratory symptoms secondary to flu pneumonia. Clinical picture may be consistent with possible bacterial infection or aspiration pneumonia. Multiple electrolyte abnormalities were present. Patient reports access to food but reports low appetite and vomiting as a result of illness. He was resuscitated in the ER wit h IV fluids and placed on broad-spectrum antibiotics. Lactate was elevated. Imaging including chest abdomen pelvis CT with contrast reveals multifocal pneumonia, enlarged mediastinal lymph nodes, fatty liver, mild complicated cyst on the right kidney. Follow-up CT in 3 months is recommended for abnormalities noted above. He is hypoxic on exam and requiring supplemental oxygen via nasal cannula. He sounds congested. Wheezing and rhonchi are heard throughout all lung hare. As an aside, RN at bedside reports that when he took his oxygen off his oxygen saturations plummeted and is documented at 78%, improved with replacing oxygen supplementation. Cardiac exam is within normal limits. Patient is euvolemic to dry. He is fatigued and not fully participating with the exam. Pancytopenia with macrocytic anemia noted on CBC. Multiple electrolyte abnormalities as noted above including sodium 127, potassium 2.8, chloride 89, BUN 18, creatinine 1.18, mag of 1.6, Phos of 1.9. His elevated lactate is improving. 1. Severe sepsis secondary to multifocal flu pneumonia 2. Acute respiratory failure secondary to flu pneumonia. 3. Syncope with subsequent traumatic nasal fracture and periorbital ecchymosis on the left I 4. Multiple electrolyte abnormalities noted above 5. Pancytopenia with macrocytosis 6. Smoking 7. Homelessness/food insecurity No indication for Tamiflu given length of symptoms, continue with broad-spectrum antibiotics as noted above, continue oxygen supplementation. Patient does report a history of coughing with recently walking out in the cold and taking a few puffs of his cigarette prior to syncopal episode. Story does not seem consistent with seizures and he has no history of that. Continue telemetry monitoring. Mild elevation in trop without rise over time. Doubt any ACS with mild elevated troponin likley consistent with demand ischemia in the setting of sepsis. Echo pending. Cont replacement of electrolytes and advance diet as tolerated. Uncertain chronicity of pancytopenia. Trend CBC and anemia workup as noted above with peripheral smear. DO Brent (5) Fall Encounter type: initial encounter Qualified Code(s): W19.XXXA - Unspecified fall, initial encounter
--- NOTE | 2023-08-09 15:57 | CT Scan Report ---
CT SCAN OF THE BRAIN WITHOUT IV CONTRAST CLINICAL HISTORY: Fall. COMPARISON STUDY: CT of the brain dated 05/19/2012. TECHNIQUE: Unenhanced axial CT scan of the brain is performed from the vertex to the skull base. A d ose lowering technique was utilized adhering to the principles of ALARA. FINDINGS: Brain parenchyma: The brain parenchyma is normal in appearance. There is no hemorrhage, mass effect, or evidence of acute territorial ischemia by CT criteria. Delgadillo-white matter differentiation is preser rupali. No extra-axial fluid collection is seen. Ventricles, sulci, cisterns: Normal in configuration. Intracranial vasculature: There is atherosclerotic calcification of the cavernous carotid arteries. Calvarium: There is no depressed calvarial fracture. Age indeterminate nasal bone fractures are noted . Sinuses and mastoids: There is subtotal opacification of the maxillary, ethmoid, sphenoid, and left f rontal sinuses. Thickening and sclerosis of the sinus john indicating chronicity. The mastoid air ce lls are well pneumatized. Orbits: The bony orbits are grossly intact. IMPRESSION: 1 No acute intracranial abnormality. 2. Pansinus disease as above. 3. Age indeterminate nasal bone fractures. Correlate clinically. ACT 112: Negative or not required by law. Electronically signed by: Taran Tam M.D. 08/09/2023 3:55 PM
--- NOTE | 2023-08-09 15:59 | Electrocardiogram Report ---
Test Reason : Blood Pressure : / mmHG Vent. Rate : 086 BPM Atrial Rate : 086 BPM P-R Int : 174 ms QRS Dur : 102 ms QT Int : 426 ms P-R-T Axes : 055 064 066 degrees QTc Int : 509 ms Sinus rhythm with Premature atrial complexes Prolonged QT Abnormal ECG When compared with ECG of 21-MAY-2012 21:33, Premature atrial complexes are now Present QT has lengthened Confirmed by Ken Baumann ([id number]) on 08/09/2023 3:58:47 PM Referred By: REFERRED SELF Confirmed By:Ken Baumann
[2023-08-09 16:04] LABS: Bilirubin Direct 1.6 mg/dl (0-0.2)
--- NOTE | 2023-08-09 16:08 | CT Scan Report ---
CHEST CTA for PULMONARY ARTERIES CT DOSE: 3203.38 mGy.cm HISTORY: Shortness of breath, elevated troponin, r/o PE TECHNIQUE: Multiaxial CT images of the chest were performed following the intravenous administration of contrast to evaluate the pulmonary arteries. 3D/Maximal intensity projection images were also obta ined. Sagittal and coronal reformations were also reviewed. A dose lowering technique was utilized a dhering to the principles of ALARA. COMPARISON STUDY: Chest 08/09/2023. FINDINGS: The abdominal structures will be reported on the same day abdomen and pelvis CT. Normal filippo iber esophagus. The thyroid gland enhances normally. The heart is top normal in size. No pleural or p ericardial effusions. Borderline enlarged mediastinal and bilateral hilar lymph nodes. Moderate coron tremaine artery calcifications are present. There is distal paraesophageal lymphadenopathy with the domina nt lymph node measuring 15 x 11 mm. Small fat-containing hiatal hernia is present. Normal caliber tho racic aorta with no evidence for a dissection. There is respiratory motion artifact. This results in nondiagnostic evaluation of the majority of the bilateral lower lobe subsegmental pulmonary arteries. However, the remaining pulmonary arteries show no filling defects to suggest a pulmonary embolus. No acute fractures within the chest. No pneumothorax. Mild paraseptal emphysema noted within the lung a pices. Central bronchial wall thickening. There are multifocal patchy and nodular bilateral airspace opacities seen within the lungs. This is most pronounced within the right middle lobe. This favors a pneumonia. Dominant nodule within the right middle lobe on image 118 measures 7 mm. This likely repre sents a component of the inflammatory/infectious change. However, all recommended to ensure stability /resolution. IMPRESSION: 1. No evidence for a pulmonary embolus with limitations as described above. 2. Multifocal bilateral groundglass and nodular airspace opacities most pronounced within the right m iddle lobe. This favors a pneumonia. [address] follow-up recommended to ensure resolution of t he small nodular densities. 3. Borderline enlarged mediastinal and bilateral hilar lymph nodes. There is also mild distal paraeso phageal lymphadenopathy. This may be reactive. This also requires follow-up to ensure resolution/stab ility. ACT 112: Positive. There are findings on this exam that require communication between the performing entity and the patient following Patient Test Result Information Act ([place] Act 112) guidelines. Electronically signed by: Anil Lugo M.D. 08/09/2023 4:07 PM
[2023-08-09 16:09] LABS: Troponin I High Sensitivity 26.7 pg/ml (0-20)
--- NOTE | 2023-08-09 16:42 | CT Scan Report ---
CT OF THE ABDOMEN AND PELVIS WITH CONTRAST CLINICAL HISTORY: Sepsis, nausea and vomiting. COMPARISON STUDY: None. TECHNIQUE: Following IV administration of 116 mL of Optiray, axial images of the abdomen and pelvis w ere obtained from the lung bases to the proximal femurs. Images were reviewed in the axial, sagittal, and coronal planes. IV contrast was administered without complication. Automated exposure control w as utilized for the study. A dose lowering technique was utilized adhering to the principles of GLADIS Carter. FINDINGS: Multifocal airspace opacities are noted within the visualized lungs. Please note that the c hest CT will be reported separately. A small hiatal hernia is present. Several mildly enlarged lymph nodes within the inferior mediastinum measure up to 1.3 x 1.1 cm. No pneumatosis, free air or portal venous gas is present. There is hepatic steatosis. The liver is heterogeneous. There is no biliary or pancreatic ductal dilatation. Gallstones within the gallbladder are present. There is no evidence fo r acute cholecystitis. A small amount of abdominal and pelvic ascites is present. There is no proptos is. A 3 cm cystic lesion within the right kidney contains several septations with slightly thickened calcifications. No enhancing component is identified. Additional subcentimeter renal lesions are too small to characterize. There is sigmoid diverticulosis. No evidence for acute diverticulitis. No acut e fractures are identified within the visualized skeletal structures IMPRESSION: 1. Findings suggestive of multifocal pneumonia, better depicted on the chest CT. Mildly enlarged medi astinal lymph nodes which are probably reactive but a follow-up chest CT in 3 months to ensure resolu tion is recommended. 2. No bowel obstruction. No bowel wall thickening. Colonic diverticulosis without evidence for acute diverticulitis. 3. Hepatic steatosis. Small amount of ascites within the abdomen and pelvis. 4. 3 cm cystic lesion within the lower pole of the right kidney. This reflects a mildly complicated c yst. This is considered Bosniak 2F. Follow-up renal protocol CT in 6 months to ensure stability is re commended. 5. Cholelithiasis. ACT 112: Positive. There are findings on this exam that require communication between the performing entity and the patient following Patient Test Result Information Act ([place] Act 112) guidelines. Electronically signed by: Frank Blevins M.D. 08/09/2023 4:41 PM
[2023-08-09 17:06] LABS: Lyme Ab IgG w/WB Rflx Negative (Negative); Lyme Ab IgM w/WB Rflx Negative (Negative)
[2023-08-09] MEDS ORDERED: ACETAMINOPHEN 325 MG TAB PO PRN (18:08)
[2023-08-09] MEDS ORDERED: SODIUM CHLORIDE 0.9% 1,000 ML IV SCH (18:08)
[2023-08-09] MEDS ORDERED: POTASSIUM PHOSPHATE 15 MMOL in SODIUM CHLORIDE 0.9% 250 ML IV ONE (18:30)
[2023-08-09] MEDS: MAGNESIUM SULFATE / D5W 1 GM/100 ML BAG IV SCH ×2 (18:40→20:00)
[2023-08-09 19:33] LABS: Folate (Folic Acid),Ser orPlas 7.08 ng/ml (>5.38)
[2023-08-09] MEDS: ALBUT/IPRATROP 3MG/0.5MG NEB 3 ML VIAL NEB SCH ×2 (19:41→23:08)
[2023-08-09 20:24] LABS: Amphetamines+Metham, Urine Neg (Neg); Barbiturates, Urine Neg (Neg); Benzodiazepine, Urine Neg (Neg); Cocaine, Urine Neg (Neg); MDMA (Ecstacy), Urine Neg (Neg); Marijuana, Urine Neg (Neg); Methadone, Urine Neg (Neg); Opiate, Urine Neg (Neg); Phencyclidine, Urine Neg (Neg)
[2023-08-09] MEDS: POTASSIUM CHLORIDE / WTR 10 MEQ/100 ML PLCT IV SCH ×2 (20:34→22:04)
[2023-08-09] MEDS: BENZONATATE 100 MG CAPSULE PO SCH (20:39)
[2023-08-09] MEDS: POTASSIUM CHLORIDE CRTAB 20 MEQ TABCR PO SCH (20:39)
[2023-08-10] MEDS: POTASSIUM CHLORIDE CRTAB 20 MEQ TABCR PO SCH (00:02)
[2023-08-10] MEDS: CEFEPIME 2,000 MG in SYRINGE 0 ML IV SCH ×4 (00:02→23:29)
[2023-08-10 00:15] LABS: BUN Creatinine Ratio 17.2 (10-20); Calcium 6.7 mg/dl (8.6-10.3); Est GFR (African American) 110.6 ml/min; Est GFR (Non-African American) 95.4 ml/min; Magnesium 2.1 mg/dl (1.7-2.4); Phosphorus 2.8 mg/dl (2.5-4.9); Potassium 3.1 mmol/L (3.5-5.1)
[2023-08-10 00:22] LABS: Troponin I High Sensitivity 19.8 pg/ml (0-20)
[2023-08-10 01:03] LABS: Appearance Urine Clear (Clear); Bacteria Urine Automated Negative (Negative); Blood Urine Negative (Negative); Cast Urine Automated 0 /lpf (0-5); Color Urine Orange; Glucose Urine UA Negative (Negative); Ketones Urine Trace (Negative); Leukocyte Esterase Urine Negative (Negative); Nitrite Urine Negative (Negative); Protein Urine Trace (Negative); Specific Gravity Urine > 1.045 (1.000-1.030); Urobilinogen Urine Negative (Negative); pH Urine 6.5 (4.5-7.5)
[2023-08-10 01:12] LABS: Bilirubin Urine 1+ (Negative)
[2023-08-10] MEDS: ALBUT/IPRATROP 3MG/0.5MG NEB 3 ML VIAL NEB SCH ×6 (03:24→22:55)
[2023-08-10] MEDS: DOXYCYCLINE HYCLATE 100 MG in DEXTROSE 5% MINI-B 100 ML IV SCH ×2 (04:08→16:58)
[2023-08-10 07:12] LABS: Estimated Average Glucose 97 mg/dl
[2023-08-10 07:15] LABS: Anion Gap 9 (3-11); BUN Creatinine Ratio 19.5 (10-20); Blood Urea Nitrogen 16 mg/dl (6-23); Calcium 6.9 mg/dl (8.6-10.3); Carbon Dioxide 24 mmol/L (21-32); Chloride 98 mmol/L (98-107); Cholesterol 41 mg/dl (0-200); Creatinine Clr Calc Pharmacy 131.1 ml/min; Est GFR (African American) 119.5 ml/min; Est GFR (Non-African American) 103.1 ml/min; Ferritin 1191.9 ng/ml (8-388); Glucose 117 mg/dl (70-99(Fasting)); HDL Cholesterol < 3 mg/dl; Iron 146 mcg/dl (35-175); Magnesium 2.1 mg/dl (1.7-2.4); Phosphorus 2.3 mg/dl (2.5-4.9); Potassium 3.1 mmol/L (3.5-5.1); Sodium 131 mmol/L (136-145); Transferrin 115 mg/dl (200-360); Triglycerides 133 mg/dl (0-150); VLDL Cholesterol 27 mg/dl (0-30)
[2023-08-10 07:27] LABS: Hematocrit (blood only) 22.5 % (42.0-52.0); Mean Corpuscular Hgb Conc 35.6 g/dL (32.0-36.0); Mean Corpuscular Volume 112.5 fL (80.0-100.0); Mean Platelet Volume 11.5 fL (9.4-12.4); Platelet Count 55 K/uL (130-400); RDW Coefficient of Variation 16.2 % (11.5-14.5); RDW Standard Deviation 64.2 fL (36.4-46.3); White Blood Count 4.15 K/ul (4.8-10.8)
[2023-08-10 07:28] LABS: Platelet Estimate Decreased (Normal)
[2023-08-10] MEDS: FOLIC ACID 400 MCG TAB PO SCH (08:57)
[2023-08-10] MEDS: BENZONATATE 100 MG CAPSULE PO SCH ×3 (08:57→20:26)
[2023-08-10] MEDS: NICOTINE 14 MG/24 HR PATCH TD SCH (08:57)
[2023-08-10] MEDS: MULTIVITAMIN TAB PO SCH (08:57)
[2023-08-10] MEDS: THIAMINE HCL 100 MG TAB PO SCH (08:57)
[2023-08-10] MEDS ORDERED: POTASSIUM CHLORIDE CRTAB 20 MEQ TABCR PO STA (10:15)
[2023-08-10] MEDS ORDERED: POTASSIUM PHOS 3 MMOL/1 ML INFUSION IV STA (12:15)
[2023-08-10] MEDS ORDERED: POTASSIUM PHOSPHATE 15 MMOL in SODIUM CHLORIDE 0.9% 250 ML IV ONE (12:30)
--- NOTE | 2023-08-10 12:31 | Electrocardiogram Report ---
Test Reason : Blood Pressure : / mmHG Vent. Rate : 077 BPM Atrial Rate : 077 BPM P-R Int : 176 ms QRS Dur : 102 ms QT Int : 448 ms P-R-T Axes : 064 057 054 degrees QTc Int : 506 ms Normal sinus rhythm Low voltage QRS Prolonged QT Abnormal ECG When compared with ECG of 09-AUG-2023 13:38, Premature atrial complexes are no longer Present Confirmed by Ken Baumann ([id number]) on 08/10/2023 12:30:51 PM Referred By: REFERRED SELF Confirmed By:Ken Baumann
--- NOTE | 2023-08-10 13:02 | Hospitalist Progress Note ---
Date of Service August 10, 2023 Assessment & Plan (1) Multifocal pneumonia: Plan 52-year-old male with PMH of chronic tobacco use, homelessness and is helped by "out of the Cold", smokes half PPD/attempting to wean down, alcohol use occasionally with beer who sustained a fall on July 31 and fell down outside hitting his face/ecchymotic area under the left eye orbit presented to the ED 08/09 with complaint of worsening flulike symptoms including cough/congestion/fever/chills/nausea and vomiting for the past 10 days [employer]ER [employer]. He is being managed for the following: Multifocal pneumonia Superimposed bacterial pneumonia Influenza A positive Severe sepsis POA: Likely secondary to superimposed bacterial pneumonia. Respiratory rate/temperature/lactate elevated at presentation. Patient coming in with worsening flulike symptoms. See above. Admitting CXR with multifocal airspace opacities, greater in the right lower lobe. Admitting CT chest with no evidence of PE, CTA chest positive for multifocal bilateral airspace opacities most pronounced within the right middle lobe. Patient was hypoxic at presentation at 88% on room air. Continue with cefepime and doxycycline started 08/09. Patient reports improvement in his condition, improvement in his cough. WBC closer to normal, patient afebrile, blood pressure improving. Wean down oxygen as tolerated. Continue symptomatic management for influenza A. No tamiflu as patient with symptoms for 10 days. Continue with Mucinex, incentive spirometer, flutter, Tessalon Perles, DuoNebs. Follow-up CT scan of the chest in 3 months recommended. Sputum culture sent, follow admitting blood culture. Renal cyst: Admitting CTAP with 3 mm cystic lesion within the lower pole of the right kidney. Follow-up renal protocol CT scan in 6 months to ensure stability. Fall/Nasal bone fracture: CT head with no acute intracranial abnormality but suggestive of age-indeterminate nasal bone fracture. OMFS consulted, await recommendation. Electrolytes abnormalities [hypokalemia/hyponatremia/hypomagnesemia]: Admitting EKG without acute abnormalities, QTc prolonged at 509. Monitor and replete. Hyponatremia, likely secondary to poor appetite. Improving. Pancytopenia: MCV elevated, vitamin B12 level normal, folate low normal. Likely secondary to alcohol use. Will continue with folic acid supplement. Follow-up tickborne serology. Monitor. Tobacco use: Smokes half packs daily, currently weaning down by self. Nicotine patch. Cessation encouraged. Alcohol use: Drinks every 3 to 4 days on average, several beers, denies history of withdrawal or seizures. Continue with alcohol withdrawal scoring and monitoring. Cessation encouraged. DVT prophylaxis: SCDs, teds CODE STATUS: Conditional -okay with CPR, no intubation or BiPAP Dispo: Homeless, stays in the [facility] of the [facility] detention, likely to remain in the hospital x 2-3 days Admission and Anticipated Discharge Date Admission Date: August 09, 2023 Subjective Patient was seen and examined at bedside. Patient was lying in bed, on 5 L oxygen via nasal cannula, NAD, resting comfortably. Patient reports feeling better, reports improving cough. Patient reports eating okay and moving bowels okay. Physical Exam Physical Exam: GENERAL: Alert and oriented x3. NAD, on 5L O2 via NC. Appears ill/frail/weak. HEENT: No pallor, no icterus. Pupils equal, round and reactive to light. Oral mucosa moist. ecchymosis around the left orbit, stable. NECK: No JVD, no neck masses. HEART: S1 and S2 heard. Regular rate and rhythm. No murmur, no gallop. RESPIRATORY SYSTEM: Normal AP diameter. No accessory muscle use. No wheezing, bl crackles. ABDOMEN: Soft, bowel sounds present, nontender, no distention. CENTRAL NERVOUS SYSTEM: No facial droop. Speech is clear. Obeys simple commands. Moves extremities. EXTREMITIES: trace ble edema, no erythema seen. Results & Data Results & Data Vital Signs (Past 12 Hours) Vital Signs Temp Pulse Pulse Resp BP Pulse Ox O2 Del Method 08/10/23 11:48 36.8 C 84 20 111/62 93 Nasal Cannula 08/10/23 11:02 77 18 94 Nasal Cannula 08/10/23 09:00 Nasal Cannula 08/10/23 09:00 77 08/10/23 08:00 36.6 C 79 20 105/77 93 Nasal Cannula 08/10/23 06:41 77 22 96 Nasal Cannula 08/10/23 04:05 88 24 113/62 92 Nasal Cannula 08/10/23 03:47 37.9 C H 80 26 H 83/53 L 93 Room Air 08/10/23 03:24 80 22 92 Nasal Cannula O2 Flow Rate 08/10/23 11:48 5.0 01/11/24 11:02 5 08/10/23 09:00 5 08/10/23 09:00 08/10/23 08:00 5.0 08/10/23 06:41 5 08/10/23 04:05 6 08/10/23 03:47 08/10/23 03:24 6
[2023-08-10 13:53] LABS: Hematocrit (blood only) 23.8 % (42.0-52.0); Hemoglobin 8.6 g/dl (14.0-18.0)
[2023-08-10] MEDS ORDERED: COUGH DROP (SUGAR FREE) LOZ 24 LOZ/1 BOX BUCCAL PRN (15:26)
[2023-08-10] MEDS: guaiFENesin 600 MG TABCR PO SCH (20:27)
[2023-08-11] MEDS: DOXYCYCLINE HYCLATE 100 MG in DEXTROSE 5% MINI-B 100 ML IV SCH ×2 (03:20→15:59)
[2023-08-11] MEDS: ALBUT/IPRATROP 3MG/0.5MG NEB 3 ML VIAL NEB SCH ×4 (03:23→15:30)
[2023-08-11 06:12] LABS: Hematocrit (blood only) 21.6 % (42.0-52.0); Hemoglobin 7.8 g/dl (14.0-18.0); Mean Corpuscular Hemoglobin 42.4 pg (25.0-34.0); Mean Corpuscular Hgb Conc 36.1 g/dL (32.0-36.0); Mean Corpuscular Volume 117.4 fL (80.0-100.0); Mean Platelet Volume 12.5 fL (9.4-12.4); Nucleated RBC # (auto) 0.05 K/uL (0.00-0.12); Nucleated RBC % (auto) 0.8 %; Platelet Count 61 K/uL (130-400); RDW Coefficient of Variation 16.4 % (11.5-14.5); RDW Standard Deviation 70.4 fL (36.4-46.3); Red Blood Count 1.84 M/uL (4.70-6.10); White Blood Count 6.02 K/ul (4.8-10.8)
[2023-08-11 06:32] LABS: Calcium 7.2 mg/dl (8.6-10.3); Potassium 3.1 mmol/L (3.5-5.1)
[2023-08-11 06:38] LABS: BUN Creatinine Ratio 16.9 (10-20); Creatinine Clr Calc Pharmacy 151.4 ml/min; Est GFR (African American) 126.8 ml/min; Est GFR (Non-African American) 109.4 ml/min
[2023-08-11 06:42] LABS: Phosphorus 1.4 mg/dl (2.5-4.9)
[2023-08-11] MEDS ORDERED: POTASSIUM PHOS 3 MMOL/1 ML INFUSION IV STA (06:46)
[2023-08-11] MEDS ORDERED: POTASSIUM CHLORIDE CRTAB 20 MEQ TABCR PO STA (06:46)
[2023-08-11] MEDS ORDERED: POTASSIUM PHOSPHATE 40 MMOL in SODIUM CHLORIDE 0.9% 1,000 ML IV ONE (07:10)
[2023-08-11] MEDS: NICOTINE 14 MG/24 HR PATCH TD SCH (07:48)
[2023-08-11] MEDS: FOLIC ACID 400 MCG TAB PO SCH (07:49)
[2023-08-11] MEDS: guaiFENesin 600 MG TABCR PO SCH (07:49)
[2023-08-11] MEDS: THIAMINE HCL 100 MG TAB PO SCH (07:49)
[2023-08-11] MEDS: BENZONATATE 100 MG CAPSULE PO SCH ×3 (07:49→20:04)
[2023-08-11] MEDS: MULTIVITAMIN TAB PO SCH (07:50)
[2023-08-11] MEDS: CEFEPIME 2,000 MG in SYRINGE 0 ML IV SCH ×3 (08:45→22:50)
[2023-08-11 12:01] LABS: Toxic Granulation 1+
[2023-08-11 14:52] LABS: Hematocrit (blood only) 22.8 % (42.0-52.0); Hemoglobin 8.2 g/dl (14.0-18.0)
--- NOTE | 2023-08-11 16:17 | Hospitalist Progress Note ---
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 He is being managed for the following: Multifocal pneumonia Superimposed bacterial pneumonia Influenza A positive Severe sepsis POA: Likely secondary to superimposed bacterial pneumonia. Respiratory rate/temperature/lactate elevated at presentation. Patient coming in with worsening flulike symptoms. See above. Admitting CXR with multifocal airspace opacities, greater in the right lower lobe. Admitting CT chest with no evidence of PE, CTA chest positive for multifocal bilateral airspace opacities most pronounced within the right middle lobe. Patient was hypoxic at presentation at 88% on room air. Continue with cefepime and doxycycline started 08/09. Patient still with significant cough causing his abdominal pain. WBC WNL, patient afebrile, hemodynamically stable. Wean down oxygen as tolerated. Continue symptomatic management for influenza A. No tamiflu as patient with symptoms for 10 days. Continue with Mucinex, incentive spirometer, flutter, Tessalon Perles, DuoNebs. Follow-up CT scan of the chest in 3 months recommended. Sputum culture sent, follow admitting blood culture. Renal cyst: Admitting CTAP with 3 mm cystic lesion within the lower pole of the right kidney. Follow-up renal protocol CT scan in 6 months to ensure stability. Fall/Nasal bone fracture: CT head with no acute intracranial abnormality but suggestive of age-indeterminate nasal bone fracture. OMFS consulted, await recommendation. Electrolytes abnormalities [hypokalemia/hyponatremia/hypomagnesemia]: Admitting EKG without acute abnormalities, QTc prolonged at 509. Monitor and replete. Hyponatremia, likely secondary to poor appetite. Improving. Pancytopenia: MCV elevated, vitamin B12 level normal, folate low normal. Likely secondary to alcohol use. Will continue with folic acid supplement. Follow-up tickborne serology. Monitor. Tobacco use: Smokes half packs daily, currently weaning down by self. Nicotine patch. Cessation encouraged. Alcohol use: Drinks every 3 to 4 days on average, several beers, denies history of withdrawal or seizures. Continue with alcohol withdrawal scoring and monitoring. Cessation encouraged. DVT prophylaxis: SCDs, teds CODE STATUS: Conditional -okay with CPR, no intubation or BiPAP Dispo: Homeless, stays in the Out of the [facility] residential, likely to remain in the hospital x 2-3 days Admission and Anticipated Discharge Date Admission Date: August 09, 2023 Subjective Patient was seen and examined at bedside. Patient was lying in bed, on 5 L oxygen via nasal cannula, NAD, resting comfortably. Patient is eating okay and moving bowels okay, has a still cough and shortness o f breath. Reports abdominal pain from coughing. Will use antitussives. Physical Exam Physical Exam: GENERAL: Alert and oriented x3. NAD, on 5L O2 via NC. Appears ill/frail/weak. HEENT: No pallor, no icterus. Pupils equal, round and reactive to light. Oral mucosa moist. ecchymosis around the left orbit, stable. NECK: No JVD, no neck masses. HEART: S1 and S2 heard. Regular rate and rhythm. No murmur, no gallop. RESPIRATORY SYSTEM: Normal AP diameter. No accessory muscle use. No wheezing, bl crackles. ABDOMEN: Soft, bowel sounds present, nontender, no distention. CENTRAL NERVOUS SYSTEM: No facial droop. Speech is clear. Obeys simple commands. Moves extremities. EXTREMITIES: trace ble edema, no erythema seen. Results & Data Results & Data Vital Signs (Past 12 Hours) Vital Signs Temp Pulse Pulse Resp BP BP Pulse Ox 08/11/23 11:35 36.8 C 90 18 126/84 97 08/11/23 09:00 08/11/23 09:00 76 08/11/23 08:00 36.6 C 88 20 124/79 93 08/11/23 07:10 90 18 90 O2 Del Method O2 Flow Rate 08/11/23 11:35 Nasal Cannula 5 08/11/23 09:00 Nasal Cannula 5 08/11/23 09:00 08/11/23 08:00 Nasal Cannula 5 08/11/23 07:10 Nasal Cannula 5
[2023-08-11] MEDS ORDERED: ALBUT/IPRATROP 3MG/0.5MG NEB 3 ML VIAL NEB PRN (17:48)
[2023-08-11] MEDS: guaiFENesin/DEXTROM SYRUP 100MG/10MG 5ML UDC PO PRN (18:09)
[2023-08-12] MEDS: DOXYCYCLINE HYCLATE 100 MG in DEXTROSE 5% MINI-B 100 ML IV SCH ×2 (03:18→15:50)
[2023-08-12] MEDS: BENZONATATE 100 MG CAPSULE PO SCH ×3 (07:57→20:06)
[2023-08-12] MEDS: MULTIVITAMIN TAB PO SCH (07:57)
[2023-08-12] MEDS: FOLIC ACID 400 MCG TAB PO SCH (07:58)
[2023-08-12] MEDS: THIAMINE HCL 100 MG TAB PO SCH (07:58)
[2023-08-12] MEDS: NICOTINE 14 MG/24 HR PATCH TD SCH (07:58)
[2023-08-12] MEDS: guaiFENesin/DEXTROM SYRUP 100MG/10MG 5ML UDC PO PRN ×2 (08:02→14:25)
[2023-08-12 08:12] LABS: BUN Creatinine Ratio 14.8 (10-20); Calcium 7.2 mg/dl (8.6-10.3); Est GFR (Non-African American) 116.4 ml/min; Magnesium 1.8 mg/dl (1.7-2.4); Phosphorus 1.9 mg/dl (2.5-4.9); Potassium 3.5 mmol/L (3.5-5.1)
[2023-08-12] MEDS: CEFEPIME 2,000 MG in SYRINGE 0 ML IV SCH ×3 (08:15→23:43)
[2023-08-12] MEDS ORDERED: POTASSIUM PHOS 3 MMOL/1 ML INFUSION IV STA (08:16)
[2023-08-12 08:19] LABS: Hematocrit (blood only) 22.3 % (42.0-52.0); Hemoglobin 8.1 g/dl (14.0-18.0); Mean Corpuscular Hemoglobin 42.9 pg (25.0-34.0); Mean Corpuscular Hgb Conc 36.3 g/dL (32.0-36.0); Mean Platelet Volume 12.3 fL (9.4-12.4); Nucleated RBC # (auto) 0.04 K/uL (0.00-0.12); Nucleated RBC % (auto) 0.4 %; Platelet Count 82 K/uL (130-400); RDW Coefficient of Variation 17.2 % (11.5-14.5); RDW Standard Deviation 73.4 fL (36.4-46.3); Red Blood Count 1.89 M/uL (4.70-6.10); White Blood Count 10.87 K/ul (4.8-10.8)
[2023-08-12] MEDS ORDERED: POTASSIUM PHOSPHATE 15 MMOL in SODIUM CHLORIDE 0.9% 250 ML IV ONE (08:45)
--- NOTE | 2023-08-12 13:39 | Hospitalist Progress Note ---
Date of Service August 12, 2023 Assessment & Plan (1) Multifocal pneumonia: Plan 52-year-old male with PMH of chronic tobacco use, homelessness and is helped by "out of the Cold", smokes half PPD/attempting to wean down, alcohol use occasionally with beer who sustained a fall on July 31 and fell down outside hitting his face/ecchymotic area under the left eye orbit presented to the ED 08/09 with complaint of worsening flulike symptoms including cough/congestion/fever/chills/nausea and vomiting for the past 10 days [employer]. He is being managed for the following: Multifocal pneumonia Superimposed bacterial pneumonia Influenza A positive Severe sepsis POA: Likely secondary to superimposed bacterial pneumonia. Respiratory rate/temperature/lactate elevated at presentation. Patient coming in with worsening flulike symptoms. See above. Admitting CXR with multifocal airspace opacities, greater in the right lower lobe. Admitting CT chest with no evidence of PE, CTA chest positive for multifocal bilateral airspace opacities most pronounced within the right middle lobe. Patient was hypoxic at presentation at 88% on room air. Continue with cefepime and doxycycline started 08/09. Patient still with significant cough causing his abdominal pain. WBC WNL, patient afebrile, hemodynamically stable. Wean down oxygen as tolerated. Continue symptomatic management for influenza A. No tamiflu as patient with symptoms for 10 days. Continue with Mucinex, incentive spirometer, flutter, Tessalon Perles, DuoNebs. Follow-up CT scan of the chest in 3 months recommended. Sputum culture sent, follow admitting blood culture. Renal cyst: Admitting CTAP with 3 mm cystic lesion within the lower pole of the right kidney. Follow-up renal protocol CT scan in 6 months to ensure stability. Fall/Nasal bone fracture: CT head with no acute intracranial abnormality but suggestive of age-indeterminate nasal bone fracture. OMFS consulted, await recommendation. Electrolytes abnormalities [hypokalemia/hyponatremia/hypomagnesemia]: Admitting EKG without acute abnormalities, QTc prolonged at 509. Monitor and replete. Hyponatremia, likely secondary to poor appetite. Improving. Pancytopenia: MCV elevated, vitamin B12 level normal, folate low normal. Likely secondary to alcohol use. Will continue with folic acid supplement. Follow-up tickborne serology. Monitor. Tobacco use: Smokes half packs daily, currently weaning down by self. Nicotine patch. Cessation encouraged. Alcohol use: Drinks every 3 to 4 days on average, several beers, denies history of withdrawal or seizures. Continue with alcohol withdrawal scoring and monitoring. Cessation encouraged. DVT prophylaxis: SCDs, teds CODE STATUS: Conditional -okay with CPR, no intubation or BiPAP Dispo: Homeless, [facility], likely DC tomorrow pending clinical improvement. Admission and Anticipated Discharge Date Admission Date: August 09, 2023 Subjective Patient was seen and examined at bedside. Patient was lying in bed, on room air, feels lethargic/tired/wiped out. WBC slightly elevated today, will send procalcitonin. Patient is eating okay and moving bowels okay, cough minimally better. Physical Exam Physical Exam: GENERAL: Alert and oriented x3. NAD, on room air. Appears ill/frail/weak. HEENT: No pallor, no icterus. Pupils equal, round and reactive to light. Oral mucosa moist. ecchymosis around the left orbit, stable. NECK: No JVD, no neck masses. HEART: S1 and S2 heard. Regular rate and rhythm. No murmur, no gallop. RESPIRATORY SYSTEM: Normal AP diameter. No accessory muscle use. No wheezing, bl crackles. ABDOMEN: Soft, bowel sounds present, nontender, no distention. CENTRAL NERVOUS SYSTEM: No facial droop. Speech is clear. Obeys simple commands. Moves extremities. EXTREMITIES: trace ble edema, no erythema seen. Results & Data Results & Data Vital Signs (Past 12 Hours) Vital Signs Temp Pulse Pulse Resp BP Pulse Ox O2 Del Method 08/12/23 11:45 37.2 C 83 121/91 93 Room Air 08/12/23 11:03 37.2 C 83 19 96/62 L 93 Room Air 08/12/23 09:00 Room Air 08/12/23 09:00 77 08/12/23 07:41 37.0 C 84 19 132/95 90 Room Air 08/12/23 03:00 36.9 C 86 18 134/93 92 Nasal Cannula
[2023-08-13] MEDS: DOXYCYCLINE HYCLATE 100 MG in DEXTROSE 5% MINI-B 100 ML IV SCH ×2 (03:53→15:51)
[2023-08-13 06:29] LABS: Hematocrit (blood only) 22.3 % (42.0-52.0); Hemoglobin 8.4 g/dl (14.0-18.0); Mean Corpuscular Hemoglobin 43.1 pg (25.0-34.0); Mean Corpuscular Hgb Conc 37.7 g/dL (32.0-36.0); Mean Corpuscular Volume 114.4 fL (80.0-100.0); Mean Platelet Volume 11.6 fL (9.4-12.4); Nucleated RBC # (auto) 0.02 K/uL (0.00-0.12); Nucleated RBC % (auto) 0.1 %; Platelet Count 133 K/uL (130-400); RDW Coefficient of Variation 17.7 % (11.5-14.5); RDW Standard Deviation 73.9 fL (36.4-46.3); Red Blood Count 1.95 M/uL (4.70-6.10); White Blood Count 13.37 K/ul (4.8-10.8)
[2023-08-13 06:44] LABS: BUN Creatinine Ratio 15.6 (10-20); Calcium 7.5 mg/dl (8.6-10.3); Creatinine Clr Calc Pharmacy 167.7 ml/min; Est GFR (African American) 132.3 ml/min; Est GFR (Non-African American) 114.2 ml/min; Magnesium 1.8 mg/dl (1.7-2.4); Phosphorus 2.3 mg/dl (2.5-4.9); Potassium 3.6 mmol/L (3.5-5.1)
[2023-08-13] MEDS: NICOTINE 14 MG/24 HR PATCH TD SCH (08:15)
[2023-08-13] MEDS: CEFEPIME 2,000 MG in SYRINGE 0 ML IV SCH ×2 (08:15→15:51)
[2023-08-13] MEDS: MULTIVITAMIN TAB PO SCH (08:16)
[2023-08-13] MEDS: FOLIC ACID 400 MCG TAB PO SCH (08:16)
[2023-08-13] MEDS: THIAMINE HCL 100 MG TAB PO SCH (08:16)
[2023-08-13] MEDS: BENZONATATE 100 MG CAPSULE PO SCH ×3 (08:16→19:52)
[2023-08-13] MEDS: POT PHOSPHATE MONOBASIC W/ SOD TAB PO SCH ×4 (08:35→19:56)
[2023-08-13] MEDS: metroNIDAZOLE 500 MG/100 ML BAG IV SCH ×2 (10:07→18:03)
--- NOTE | 2023-08-13 15:25 | Hospitalist Progress Note ---
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 Respiratory rate/temperature/lactate elevated at presentation. Patient coming in with worsening flulike symptoms. See above. Admitting CXR with multifocal airspace opacities, greater in the right lower lobe. Admitting CT chest with no evidence of PE, CTA chest positive for multifocal bilateral airspace opacities most pronounced within the right middle lobe. Patient was hypoxic at presentation at 88% on room air. Continue with cefepime and doxycycline started 08/09. Added metron 08/13 due to uptrending wbc. Patient still with significant cough causing his abdominal pain. WBC uptrending, patient afebrile, hemodynamically stable. Looks tired/wiped out. Repeat CXR to ro Complication of pneumonia Continue symptomatic management for influenza A. No tamiflu as patient with symptoms for 10 days. Continue with Mucinex, incentive spirometer, flutter, Tessalon Perles, DuoNebs. Follow-up CT scan of the chest in 3 months recommended. Follow admitting blood culture. Renal cyst: Admitting CTAP with 3 mm cystic lesion within the lower pole of the right kidney. Follow-up renal protocol CT scan in 6 months to ensure stability. Fall/Nasal bone fracture: CT head with no acute intracranial abnormality but suggestive of age-indeterminate nasal bone fracture. OMFS consulted, await recommendation. Electrolytes abnormalities [hypokalemia/hyponatremia/hypomagnesemia]: Admitting EKG without acute abnormalities, QTc prolonged at 509. Monitor and replete. Hyponatremia, likely secondary to poor appetite. Improving. Pancytopenia: MCV elevated, vitamin B12 level normal, folate low normal. Likely secondary to alcohol use. Will continue with folic acid supplement. Follow-up tickborne serology. Monitor. Tobacco use: Smokes half packs daily, currently weaning down by self. Nicotine patch. Cessation encouraged. Alcohol use: Drinks every 3 to 4 days on average, several beers, denies history of withdrawal or seizures. Continue with alcohol withdrawal scoring and monitoring. Cessation encouraged. DVT prophylaxis: SCDs, teds CODE STATUS: Conditional -okay with CPR, no intubation or BiPAP Dispo: Homeless, stays in the [facility], pending clinical improvement. Admission and Anticipated Discharge Date Admission Date: August 09, 2023 Subjective Patient was seen and examined at bedside. Patient was lying in bed, on room air, feels lethargic/tired/wiped out. WBC uptrending, will add anaerobic coverage. Labs in AM. Patient reports ongoing cough but with clear mucus now. Patient is eating okay and moving bowels okay. Physical Exam Physical Exam: GENERAL: Alert and oriented x3. NAD, on room air. Appears ill/frail/weak. HEENT: No pallor, no icterus. Pupils equal, round and reactive to light. Oral mucosa moist. ecchymosis around the left orbit, stable. NECK: No JVD, no neck masses. HEART: S1 and S2 heard. Regular rate and rhythm. No murmur, no gallop. RESPIRATORY SYSTEM: Normal AP diameter. No accessory muscle use. No wheezing, bl crackles --improving. ABDOMEN: Soft, bowel sounds present, nontender, no distention. CENTRAL NERVOUS SYSTEM: No facial droop. Speech is clear. Obeys simple commands. Moves extremities. EXTREMITIES: trace ble edema, no erythema seen. Results & Data Results & Data Vital Signs (Past 12 Hours) Vital Signs Temp Pulse Pulse Resp BP BP Pulse Ox 08/13/23 11:36 36.3 C L 80 20 110/60 89 L 08/13/23 08:00 79 08/13/23 08:00 08/13/23 07:30 36.5 C 84 21 101/65 90 O2 Del Method 08/13/23 11:36 Room Air 08/13/23 08:00 08/13/23 08:00 Room Air 08/13/23 07:30 Room Air
--- NOTE | 2023-08-13 16:16 | XRay Report ---
SINGLE VIEW CHEST CLINICAL HISTORY: Follow-up pneumonia FINDINGS: An AP, portable, upright chest radiograph is compared to chest x-ray and chest CT dated 07/31. The heart is mildly enlarged noting atherosclerotic calcification of the thoracic aorta. Agai n seen is multifocal airspace consolidation with a lower lobe predominance. This has modestly cleared as compared to 08/09/2023. No large pleural effusion is identified. No pneumothorax is seen. The bony thorax is grossly intact. IMPRESSION: Lower lung predominant multifocal airspace consolidation has partially cleared as compare d to 08/09/2023. Continued follow-up to complete resolution is recommended. ACT 112: Negative or not required by law. Electronically signed by: Taran Tam M.D. 08/13/2023 4:14 PM
[2023-08-14] MEDS: CEFEPIME 2,000 MG in SYRINGE 0 ML IV SCH ×3 (00:17→16:03)
[2023-08-14] MEDS: metroNIDAZOLE 500 MG/100 ML BAG IV SCH ×3 (00:17→17:41)
[2023-08-14] MEDS: DOXYCYCLINE HYCLATE 100 MG in DEXTROSE 5% MINI-B 100 ML IV SCH ×2 (04:03→16:03)
[2023-08-14] MEDS: FOLIC ACID 400 MCG TAB PO SCH (08:22)
[2023-08-14] MEDS: THIAMINE HCL 100 MG TAB PO SCH (08:22)
[2023-08-14] MEDS: NICOTINE 14 MG/24 HR PATCH TD SCH (08:22)
[2023-08-14] MEDS: BENZONATATE 100 MG CAPSULE PO SCH ×3 (08:22→21:02)
[2023-08-14] MEDS: MULTIVITAMIN TAB PO SCH (08:22)
[2023-08-14 08:52] LABS: BUN Creatinine Ratio 16.7 (10-20); Calcium 7.5 mg/dl (8.6-10.3); Creatinine Clr Calc Pharmacy 149.1 ml/min; Est GFR (African American) 126.1 ml/min; Est GFR (Non-African American) 108.8 ml/min; Magnesium 1.8 mg/dl (1.7-2.4); Phosphorus 3.1 mg/dl (2.5-4.9)
[2023-08-14 08:55] LABS: Hematocrit (blood only) 21.8 % (42.0-52.0); Hemoglobin 7.9 g/dl (14.0-18.0); Mean Corpuscular Hemoglobin 42.7 pg (25.0-34.0); Mean Corpuscular Hgb Conc 36.2 g/dL (32.0-36.0); Mean Corpuscular Volume 117.8 fL (80.0-100.0); Platelet Count 161 K/uL (130-400); RDW Coefficient of Variation 18.1 % (11.5-14.5); RDW Standard Deviation 77.6 fL (36.4-46.3); Red Blood Count 1.85 M/uL (4.70-6.10); White Blood Count 13.24 K/ul (4.8-10.8)
[2023-08-14] MEDS: POT PHOSPHATE MONOBASIC W/ SOD TAB PO SCH ×4 (09:00→21:02)
[2023-08-14 09:31] LABS: Basophils # (auto) 0.05 K/uL (0.00-0.20); Basophils % (auto) 0.4 %; Eosinophils # (auto) 0.21 K/uL (0.00-0.50); Eosinophils % (auto) 1.6 %; Immature Granulocytes # (auto) 1.16 K/uL (0.01-0.20); Immature Granulocytes % (auto) 8.8 %; Lymphocytes # (auto) 1.59 K/uL (1.20-3.40); Macrocytosis Present; Monocytes # (auto) 0.66 K/uL (0.11-0.59); Neutrophils # (auto) 9.57 K/uL (1.40-6.50); Neutrophils % (auto) 72.2 %; Polychromasia 2+; Target Cells 2+
[2023-08-14 10:12] LABS: Ehrlichia chaff DNA Bld Negative (Negative)
[2023-08-14] MEDS: HEPARIN SOD 5,000 UNIT/0.5 ML VIAL SQ SCH ×2 (14:05→21:02)
--- NOTE | 2023-08-14 14:49 | Hospitalist Progress Note ---
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 Respiratory rate/temperature/lactate elevated at presentation. Patient coming in with worsening flulike symptoms. See above. Admitting CXR with multifocal airspace opacities, greater in the right lower lobe. Admitting CT chest with no evidence of PE, CTA chest positive for multifocal bilateral airspace opacities most pronounced within the right middle lobe. Patient was hypoxic at presentation at 88% on room air. Continue with cefepime and doxycycline started 08/09. Added metron 08/13 due to uptrending wbc and not improving cough. Today WBC though elevated disease stable, patient reports improvement in his cough. Patient is afebrile. Still looks tired/wiped out Repeat CXR to ro Complication of pneumonia -improving. Continue symptomatic management for influenza A. No tamiflu as patient with symptoms for 10 days. Continue with Mucinex, incentive spirometer, flutter, Tessalon Perles, DuoNebs. Follow-up CT scan of the chest in 3 months recommended. Follow admitting blood culture. Renal cyst: Admitting CTAP with 3 mm cystic lesion within the lower pole of the right kidney. Follow-up renal protocol CT scan in 6 months to ensure stability. Fall/Nasal bone fracture: CT head with no acute intracranial abnormality but suggestive of age-indeterminate nasal bone fracture. OMFS consulted, await recommendation. Electrolytes abnormalities [hypokalemia/hyponatremia/hypomagnesemia]: Admitting EKG without acute abnormalities, QTc prolonged at 509. Monitor and replete. Hyponatremia, likely secondary to poor appetite. Improving. Pancytopenia: MCV elevated, vitamin B12 level normal, folate low normal. Likely secondary to alcohol use. Will continue with folic acid supplement. Follow-up tickborne serology. Monitor. Tobacco use: Smokes half packs daily, currently weaning down by self. Nicotine patch. Cessation encouraged. Alcohol use: Drinks every 3 to 4 days on average, several beers, denies history of withdrawal or seizures. Continue with alcohol withdrawal scoring and monitoring. Cessation encouraged. DVT prophylaxis: SCDs, teds CODE STATUS: Conditional -okay with CPR, no intubation or BiPAP Dispo: Homeless, stays in the Out of the cold assisted, likely tomorrow. Patient encouraged to participate with physical therapy evaluation. Admission and Anticipated Discharge Date Admission Date: August 09, 2023 Subjective Patient was seen and examined at bedside. Patient was lying in bed, on room air, continues to feel lethargic/tired/wiped out. Declined PT per RN. WBC stable/high today,c/w anaerobic coverage. Labs in AM. Patient reports improving cough now. Patient is eating okay and moving bowels okay. Physical Exam Physical Exam: GENERAL: Alert and oriented x3. NAD, on room air. Appears ill/frail/weak. HEENT: No pallor, no icterus. Pupils equal, round and reactive to light. Oral mucosa moist. ecchymosis around the left orbit, stable. NECK: No JVD, no neck masses. HEART: S1 and S2 heard. Regular rate and rhythm. No murmur, no gallop. RESPIRATORY SYSTEM: Normal AP diameter. No accessory muscle use. No wheezing, bl crackles --improving. ABDOMEN: Soft, bowel sounds present, nontender, no distention. CENTRAL NERVOUS SYSTEM: No facial droop. Speech is clear. Obeys simple commands. Moves extremities. EXTREMITIES: trace ble edema, no erythema seen. Results & Data Results & Data Vital Signs (Past 12 Hours) Vital Signs Temp Pulse Pulse Resp BP BP Pulse Ox 08/14/23 11:53 36.6 C 80 20 136/87 92 08/14/23 08:00 08/14/23 07:49 36.6 C 74 21 113/67 90 08/14/23 07:09 85 08/14/23 02:59 36.4 C L 71 25 H 96/67 L 91 O2 Del Method 08/14/23 11:53 Room Air 08/14/23 08:00 Room Air 08/14/23 07:49 Room Air 08/14/23 07:09 08/14/23 02:59 Room Air
[2023-08-15] MEDS: metroNIDAZOLE 500 MG/100 ML BAG IV SCH ×2 (00:09→08:58)
[2023-08-15] MEDS: CEFEPIME 2,000 MG in SYRINGE 0 ML IV SCH ×2 (00:11→08:56)
[2023-08-15] MEDS: DOXYCYCLINE HYCLATE 100 MG in DEXTROSE 5% MINI-B 100 ML IV SCH (04:34)
[2023-08-15] MEDS: HEPARIN SOD 5,000 UNIT/0.5 ML VIAL SQ SCH ×2 (05:53→14:38)
[2023-08-15 06:48] LABS: Hematocrit (blood only) 22.8 % (42.0-52.0); Hemoglobin 8.1 g/dl (14.0-18.0); Mean Corpuscular Hemoglobin 42.9 pg (25.0-34.0); Mean Corpuscular Hgb Conc 35.5 g/dL (32.0-36.0); Mean Corpuscular Volume 120.6 fL (80.0-100.0); Mean Platelet Volume 10.6 fL (9.4-12.4); Platelet Count 196 K/uL (130-400); RDW Coefficient of Variation 17.6 % (11.5-14.5); Red Blood Count 1.89 M/uL (4.70-6.10); White Blood Count 11.55 K/ul (4.8-10.8)
[2023-08-15 07:16] LABS: BUN Creatinine Ratio 19.7 (10-20); Calcium 7.4 mg/dl (8.6-10.3); Creatinine Clr Calc Pharmacy 151.2 ml/min; Est GFR (African American) 126.8 ml/min; Est GFR (Non-African American) 109.4 ml/min; Magnesium 1.7 mg/dl (1.7-2.4); Phosphorus 3.2 mg/dl (2.5-4.9); Potassium 3.5 mmol/L (3.5-5.1)
[2023-08-15] MEDS: THIAMINE HCL 100 MG TAB PO SCH (08:57)
[2023-08-15] MEDS: MULTIVITAMIN TAB PO SCH (08:57)
[2023-08-15] MEDS: BENZONATATE 100 MG CAPSULE PO SCH ×2 (08:57→15:11)
[2023-08-15] MEDS: FOLIC ACID 400 MCG TAB PO SCH (08:57)
[2023-08-15] MEDS: NICOTINE 14 MG/24 HR PATCH TD SCH (08:58)
--- NOTE | 2023-08-15 12:34 | Discharge Summary ---
Date of Service August 15, 2023 Admission HPI Per Admitting Provider This is a 52 yo M with PMHX of chronic tobacco use, homelessness and is helped by "Out of the Cold", smokes 1/2 ppd and is attempting to wean down, alcohol use occasionally with beer ( last drink was over a week ago), and sustained a fall on Jul 31 due to coughing very hard after taking 2 drags off a cigarette, and fell down outside hitting his face. He has a ecchymotic area under the left eye orbit who presents with worsening flulike symptoms including cough, congestion, fever/chills, nausea and vomiting for the past 10 days. He states that he feels very ill, generalized malaise, and has had difficulty with keeping down oral intake, states that every time he attempts to eat or drink something he feels dry heaves and has vomited. Feels dehydrated currently. Denies any abdominal pain, no diarrhea or constipation. He admits to having fevers although does not have a thermometer to take his temperature. He does not take any medications routinely. He states overall he has been a very healthy person in life, has never had something like this happen before. Findings upon initial presentation to the ER significant as the patient is pancytopenic with a WBC of 4.48, Hgb 9.7, HCT 25.7, platelets 66, hyponatremic 127, hypokalemic 2.8, Phos 1.9 and magnesium of 1.6. He has elevated bilirubin of 3.0, direct 1.6, AST 75 concerning for for alcohol use although that is negative upon presentation today. His procalcitonin is 0.9 and troponin is mildly elevated at 23.9 he has been started on prophylactic antibiotics with IV Zosyn for concern for possible aspiration, has been administered 2 L of fluids, 1 was a banana bag. Lactic acid of 3.[address] abdomen pelvis and head are pending.Respiratory bio fire is positive for influenza. Initially he was hypotensive at 90s/60s, which has improved status post fluid administration to L. Admission Exam Per Admitting Provider General: awake, alert, no apparent distress, white, male Head: Normocephalic, ecchymosis around the left orbit status post fall ENT: PERRL, EOMI, no pharyngeal exudate, mucous membranes very dry Chest: On room air patient has O2 sats at 88%, will place on oxygen, rales at right lower lobe, diminished breath sounds throughout, no wheeze or rhonchi Cardiac: Regular rate and rhythm, no murmur, no JVD, normal peripheral pulses, good capillary refill Abdominal: NABS x 4 quadrants, soft, nondistended, nontender to palpation, no rebound or guarding Extremities: Normal inspection, no peripheral edema or erythema, calfs nontender to palpation Psych: Normal mood and affect Neuro: AAO x 3, strength intact bilaterally and rated 5/5, no motor deficits, speech is clear, no peripheral sensory deficits Principal Diagnosis Multifocal pneumonia Influenza A URTI Superimposed bacterial pneumonia Severe sepsis POA Renal cyst Nasal bone fracture Pancytopenia Discharge Exam GENERAL: Alert and oriented x3. NAD, on room air. HEENT: No pallor, no icterus. Pupils equal, round and reactive to light. Oral mucosa moist. ecchymosis around the left orbit, stable. NECK: No JVD, no neck masses. HEART: S1 and S2 heard. Regular rate and rhythm. No murmur, no gallop. RESPIRATORY SYSTEM: Normal AP diameter. No accessory muscle use. No wheezing, bl crackles --improving. ABDOMEN: Soft, bowel sounds present, nontender, no distention. CENTRAL NERVOUS SYSTEM: No facial droop. Speech is clear. Obeys simple commands. Moves extremities. EXTREMITIES: trace ble edema, no erythema seen. Discharge Data Allergies Allergy/AdvReac Type Severity Reaction Status Date / Time Penicillins Allergy Unknown PT WOULD Verified 08/09/23 16:03 NOT SAY WHAT HIS REACTION WAS. Consultations 08/09/23 15:31 ED Decision to Admit Stat 08/09/23 17:23 Consult Oromaxillofacial Surgery Routine Ordered Studies 08/09/23 14:47 CT abd pelvis IV con only Stat CT angio chest PE protocol Stat CT head/brain wo con Stat Hospital Course (1) Multifocal pneumonia: Plan 52-year-old male with PMH of chronic tobacco use, homelessness and is helped by "out of the Cold", smokes half PPD/attempting to wean down, alcohol use occasionally with beer who sustained a fall on July 31 and fell down outside hitting his face/ecchymotic area under the left eye orbit presented to the ED 08/09 with complaint of worsening flulike symptoms including cough/congest ion/fever/chills/nausea and 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 Respiratory rate/temperature/lactate elevated at presentation. Patient coming in with worsening flulike symptoms. See above. Admitting CXR with multifocal airspace opacities, greater in the right lower lobe. Admitting CT chest with no evidence of PE, CTA chest positive for multifocal bilateral airspace opacities most pronounced within the right middle lobe. Patient was hypoxic at presentation at 88% on room air. Continue with cefepime and doxycycline started 08/09. Added metron 08/13 due to uptrending wbc and not improving cough. Leukocytosis improved, patient reports improvement in his cough. Patient is afebrile. Patient able to make several laps around the nurses station with no shortness of breath. Repeat CXR to ro Complication of pneumonia -improving. Continue symptomatic management for influenza A. No tamiflu as patient with symptoms for 10 days. Continue with Mucinex, incentive spirometer, flutter, Tessalon Perles, DuoNebs. Follow-up CT scan of the chest in 3 months recommended. Patient has been made aware. Admitting blood culture negative. Renal cyst: Admitting CTAP with 3 mm cystic lesion within the lower pole of the right kidney. Follow-up renal protocol CT scan in 6 months to ensure stability. Patient has been made aware. He voiced understanding. Fall/Nasal bone fracture: CT head with no acute intracranial abnormality but suggestive of age-indeterminate nasal bone fracture. Patient to follow-up with ENT upon discharge. Patient has been made aware. Electrolytes abnormalities [hypokalemia/hyponatremia/hypomagnesemia]: Admitting EKG without acute abnormalities, QTc prolonged at 509. Monitor and replete. Hyponatremia, likely secondary to poor appetite. Improving. Pancytopenia: MCV elevated, vitamin B12 level normal, folate low normal. Likely secondary to alcohol use. Will continue with folic acid supplement. Improved cell lines. Patient advised to refrain from drinking alcohol and follow-up with PCP for long-term monitoring. Tobacco use: Smokes half packs daily, currently weaning down by self. Nicotine patch. Cessation encouraged. Alcohol use: Drinks every 3 to 4 days on average, several beers, denies history of withdrawal or seizures. Continue with alcohol withdrawal scoring and monitoring. Cessation encouraged. DVT prophylaxis: SCDs, teds CODE STATUS: Conditional -okay with CPR, no intubation or BiPAP Patient is being discharged with following instruction at the point of discharge: Follow-up with your primary care physician within a week time and likely you will need labs CBC/CMP/magnesium/phosphorus. You will be discharged on antibiotic to complete the course for your pneumonia. You will need repeat CT scan of the chest in 3 months to document resolution of pneumonia. For your nasal bone fracture, you will need follow-up with ENT surgeon as an outpatient. Coordinate with your PCP office to set up the referral. For your right lower pole kidney cyst, you will need follow-up renal protocol CT scan in 6 months to ensure stability. Coordinate with your PCP office to set up the test. For your pancytopenia, recommend complete cessation of alcohol. Recommend complete cessation of tobacco use. Take your medications as prescribed. Please make sure that you are able to get your medications today by calling your pharmacy before you leave the hospital so that your treatment continuity is not broken. Home Health Attestation I certify that this patient is under my care and that I, or a physicians mailing machine assistant working with me, had a face to-face encounter that meets the home health [id number] encounter requirements with this patient. The encounter with the patient was in whole, or in part, for the following medical condition, which is the primary reason for home health care (list medical condition): I certify that, based on my findings, the following services are medically necessary home health services: My clinical findings support the need for the above services because: Further, I certify that my clinical findings support that this patient is homebound (i.e. absences from home require considerable and taxing effort and are for medical reasons or restoration services or infrequently or of short duration when for other reasons) because: Certification for Home Health Services: Based on the above findings, I certify that this patient is confined to the home and needs intermittent residential care, physical therapy and/or speech therapy or continues to need occupational therapy. The patient is under my care, and I have initiated the establishment of the plan of care. This patient will be followed by a physician who will periodically review the plan of care. Total Time Total Time Spent Total Time Spent (In Minutes): 35 Discharge Plan Discharge Items Patient Disposition: Home - Self-Care Reason For Visit: SEPSIS, MULTIFOCAL PNA, FLU Discharge Diagnosis: Multifocal pneumonia Influenza A URTI Superimposed bacterial pneumonia Severe sepsis POA Renal cyst Nasal bone fracture Pancytopenia Activity: Resume your previous activity Non-emergency contact: Primary Care Provider Call non-emergency contact if: you have any medication questions, your symptoms worsen and your temperature is above 101.5 Follow-up/Referrals: PCP,NO [Primary Care Provider] - Diet: Heart Healthy Addtl Attending Provider Instructions: Follow-up with your primary care physician within a week time and likely you will need labs CBC/CMP/magnesium/phosphorus. You will be discharged on antibiotic to complete the course for your pneumonia. You will need repeat CT scan of the chest in 3 months to document resolution of pneumonia. For your nasal bone fracture, you will need follow-up with ENT surgeon as an outpatient. Coordinate with your PCP office to set up the referral. For your right lower pole kidney cyst, you will need follow-up renal protocol CT scan in 6 months to ensure stability. Coordinate with your PCP office to set up the test. For your pancytopenia, recommend complete cessation of alcohol. Recommend complete cessation of tobacco use. Take your medications as prescribed. Please make sure that you are able to get your medications today by calling your pharmacy before you leave the hospital so that your treatment continuity is not broken. Pending Studies at Discharge: Yes Stand-Alone Forms: My [facility], Smoking Cessation Medications and DC Order Prescriptions: New benzonatate 100 mg Capsule 100 mg PO TID 5 Days Qty: 15 0RF dextromethorphan-guaifenesin 10-100 mg/5 mL Syrup 5 ml PO Q6H PRN (Reason: cough) 5 Days Qty: 237 0RF multivitamin with folic acid [Daily-Irlanda (with folic acid)] 400 mcg Tablet 1 tab PO QAM Qty: 30 0RF thiamine HCl (vitamin B1) 100 mg Tablet 100 mg PO QAM 15 Days Qty: 15 0RF folic acid 1 mg tablet 1 mg PO DAILY Qty: 30 0RF cefdinir 300 mg capsule 300 mg PO BID 4 Days Qty: 8 0RF doxycycline hyclate 100 mg tablet 100 mg PO BID 4 Days Qty: 8 0RF metronidazole 500 mg tablet 500 mg PO TID 4 Days Qty: 12 0RF Probiotic 3 billion cell capsule 3,000 mmu cells PO DAILY 7 Days Qty: 7 0RF Rx Instructions: administer with a meal Discharge Orders: Discharge Order (Routine); Ordered 08/15/23 Ordered By: Ha Rodriguez Admission Data Admit Date/Time: 08/09/23 15:54 Attending Provider: Ha Rodriguez Admit Provider: Jolly Kennedy Primary Care Provider: PCP,NO Other Providers: Jolly Kennedy; Matias Ayala
[2023-08-15 22:52] LABS: Babesia microti DNA Not Detected (Not Detected); Q Fever IgG, Phase I NEGATIVE; Q Fever Phase I IgM Antibody NEGATIVE; Q Fever Phase II IgG Antibody NEGATIVE; Q Fever Phase II IgM Antibody NEGATIVE; R. typhi IgG Ab NOT DETECTED; R. typhi IgM Ab NOT DETECTED; RMSF IgG Ab NOT DETECTED; RMSF IgM Ab NOT DETECTED
== END 2023-08-15 16:30 | disposition home or self-care (01) | DRG 871 ==
LOC: ED 13:11 → 2E 15:54 → SUATTDRO 15:54 → 2E 17:36

== ENCOUNTER 2024-02-25 16:09 | Inpatient (IN) ==
--- OUTSIDE RECORDS SUMMARY | 2024-02-25 16:15 | External Medical Summary | Summary of Care ---
Author Name Unknown Organization [facility] Address [address] [place] [address] Phone [phone] Care Team Providers Care Loan Review Analyst Name Role Phone Kelsey PIERRE MD, John E Primary Care Provider [phone] Reason for Visit * Reason Onset Date Comments Test Results 11/22/2023 Encounter Details Date Type Department Care Team (Late st Contact Info) Description 11/22/2023 Telephone Family Practice [facility] [address] [place] [address] Fadi Cole III, MD [address] [place] [address] Test Results Allergies Active Allergy Reactions Criticality Noted Date Comments Penicillins Unknown 08/09/2023 documented as of this encounter (statuses as of 02/21/2024) Medications Medication Sig Dispensed Refills Start Date End Date Status Folic Acid 5 MG Oral Capsule Take 1 Capsule by mouth in the morning. 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 (Adult - for ages 18 years and over) Not on file 01/16/2024 Is your family able to pay t he heat, water, or electric bill? (Household - for ages 0-17 years) Not on file 01/16/2024 Does your family have access to good internet? (Household - for ages 0-17 years) Not on file 01/16/2024 Social Connections Answer Date Recorded How often do you feel lonely or isolated from those around you? (Adult - for ages 18 years and over) Not on file 01/16/2024 Sex and Gender Information Value Date Recorded Sex Assigned at Not on file Gender Identity Not on file Sexual Orientation Not on file Job Start Date Occupation Industry Not on file Not on file Not on file documented as of this encounter Miscellaneous Notes * Telephone Encounter - Lizy Cotter LPN - 11/22/2023 10:54 AM EDT ----- Message from Fadi Cole III, MD sent at 11/22/2023 10:10 AM EDT ----- Pulmonary function showing moderate obstructive lung disease let us know how the Anoro Ellipta inhaler is working Patient informed. Has been taking the anoro elipta. He has not noticed a difference as of yet. He has an upcoming appointment on December 17. He will continue with it and let us know then. documented in this encounter Plan of Treatment Upcoming Encounters Date Type Department Care Team (Late st Contact Info) Description 03/20/2024 2:20 PM EDT Office Visit Family Practice [facility] [address] [place], [place] [address] Rina Neil PA-C [address] [place] [address] 04/05/2024 1:00 PM EDT Office Visit Hepatology, [facility] [address] [facility] [place] [address] Sari Holder MD [address] [place] [address] 04/19/2024 2:00 PM EDT Telemedicine Nephrology, [place] [address] [place] [address] Victoria Boateng MD [address] [place] [address] 01/13/2025 1:45 PM EDT Imaging Radiology [facility] [address] [facility] [place] [address] 01/16/2025 3:00 PM EDT Office Visit Urology, [place] [address], [place] [id number] Brianna Segovia PA-C [address], [place] [id number] Health Maintenance Due Date Last Done Comments DISCUSS TOBACCO CESSATION (REFER TO SMARTSET #[id number]) 1972 Lipid Panel 1972 Pneumococcal Vaccine: Pediatrics (0 to 5 Years) and At-Risk Patients (6 to 64 Years) (1 of 2 - PCV) 1978 Depression Screening 1984 HIV Screening 1987 Alpha-1 Antitrypsin 1990 DTaP,Tdap,and Td Vaccines (1 - Tdap) 1991 Hepatitis B Vaccine (1 of 3 - 19+ 3-dose series) 1991 Cologuard 2017 Colonoscopy 2017 Colorectal Cancer Screening 2017 Fecal Occult Blood Test 2017 Sigmoidoscopy 2017 Lung Cancer Screening 2022 Zoster Vaccines (1 of 2) 2022 COVID-19 Vaccine ( - 2022-24 season) 2023 *CXR OR CT FOR COPD EVER 02/11/2024 *COPD SEVERITY VERIFIED BY PFT 02/15/2024 Influenza Vaccine (FLU shot) (#1) 2024 O2 ASSESSMENT COMPLETED IN PAST YEAR FOR COPD 02/13/2025 02/14/2024 Diabetes Screening 01/01/2027 01/02/2024, 0 12/26/2023, 12/19/2023, Additional history exists HPV (Gardasil) Vaccine Aged Out No lo nger eligible based on patient's age to complete this topic MENINGOCOCCAL (MENACTRA/MENVEO) Aged Out No longer eligible based on patient's age to complete this topic documented as of this encounter Medical Devices Not on filedocumented as of this encounter Additional Health Concerns Infection Onset Date Last Indicated Resolved Time C. difficile Rule-Out 12/20/2023 12/20/20232023 7:02 PM EDT Gastrointestinal Rule-Out 12/20/2023 12/20/2023 9:53 AM EDT documented as of this encounter Care Teams Loan Review Analyst Relationship Specialty Start Date End Date Fadi Cole III, MD [address] [place] [address] PCP - General Family Medicine 10/20/23 documented as of this encounter
--- OUTSIDE RECORDS SUMMARY | 2024-02-25 16:15 | External Medical Summary | Summary of Care ---
Author Name Unknown Organization [facility] Address [address] [place] [address] Phone [phone] Care Team Providers Care Ripsaw Operator Name Role Phone Kelsey PIERRE MD, Fadi Barker Primary Care Provider [phone] Reason for Visit * Reason Onset Date Comments Appointment 01/09/2024 Referral for Com plex renal cyst/ PT is requesting closer than [place]. Please advise. Encounter Details Date Type Department Care Team (Late st Contact Info) Description 01/09/2024 Telephone Urology, [facility] [address] [facility] [place] [address] Eduard Titus MD [address] [facility] [address] [place] [address] Appointment (Referral for Complex renal cy... Allergies Active Allergy Reactions Criticality Noted Date Comments Penicillins Unknown 08/09/2023 documented as of this encounter (statuses as of 01/09/2024) Medications Medication Sig Dispensed Refills Start Date End Date Status Folic Acid 5 MG Oral Capsule Take 1 Capsule by mouth in the morning. 100 Capsule 3 11/16/2023 Active Spironolactone 50 MG Oral Tablet (Aldactone)Indicatio ns:Localized edema Take 1 Tablet by mouth in the morning. 30 Tablet 11 12/19/2023 Active Midodrine HCl 5 MG Oral Tablet (Proamatine) Take 1 Tablet by mouth in the morning and 1 Tablet at noon and 1 Tablet in the evening. 90 Tablet 3 01/05/2024 Active Fluticasone Furoate 100 MCG/ACT Inhalation Aerosol Powder Breath Activated (ARNUITY ellipta) Inhale 1 Puff by mouth in the morning. 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 documented as of this encounter (statuses as of 01/09/2024) Social History Tobacco Use Types Packs/Day Years Used Date Smoking Tobacco: Every Day Cigarettes 1 33.4 Started: 1990 Smokeless Tobacco: Never Alcohol Use Standard Drinks/Week Comments Yes 0 (1 standard drink = 0.6 oz pur e alcohol) occasional Sex and Gender Information Value Date Recorded Sex Assigned at Not on file Gender Identity Not on file Sexual Orientation Not on file Job Start Date Occupation Industry Not on file Not on file Not on file documented as of this encounter Miscellaneous Notes * Telephone Encounter - Dian Morrison OSA - 01/09/2024 2:44 PM EDT I contacted patient to schedule. I Offered next opening to patient which is July, Pt declined and took opening in [place] on January 15 * Telephone Encounter - Jennifer Jeffery OSA - 01/09/2024 11:52 AM EDT Referral for Complex renal cyst/ PT is requesting closer than [place]. Please advise. documented in this encounter Plan of Treatment Upcoming Encounters Date Type Department Care Team (Late st Contact Info) Description 01/16/2024 2:00 PM EDT Office Visit Urology, [place] [address] [place] [facility] [place] [address] Brianna Segovia PA-C [address] [facility] [place] [address] 02/14/2024 10:20 AM EDT Office Visit Family Practice [place] [address] [place] [address] Rina Neil PA-C [address] [place] [address] 04/05/2024 1:00 PM EDT Office Visit Hepatology, [facility] [address] [place] [address] Sari Holder MD [address] [place] [phone] Health Maintenance Due Date Last Done Comments DISCUSS TOBACCO CESSATION (REFER TO SMARTSET #3290) 1972 Lipid Panel 1972 Pneumococcal Vaccine: Pediatrics (0 to 5 Years) and At-Risk Patients (6 to 64 Years) (1 of 2 - PCV) 1978 Depression Screening 1984 HIV Screening 1987 Alpha-1 Antitrypsin 1990 DTaP,Tdap,and Td Vaccines (1 - Tdap) 1991 Hepatitis B (1 of 3 - 19+ 3-dose series) 1991 Cologuard 2017 Colonoscopy 2017 Colorectal Cancer Screening 2017 Fecal Occult Blood Test 2017 Sigmoidoscopy 2017 Lung Cancer Screening 2022 Zoster Vaccines (1 of 2) 2022 COVID-19 Vaccine ( - season) 2023 Influenza Vaccine (FLU shot) (Season Ended) 2024 O2 ASSESSMENT COMPLETED IN PAST YEAR FOR COPD 01/01/2025 01/02/2024 Diabetes Screening 01/01/2027 01/02/2024, 0 12/26/2023, 12/19/2023, Additional history exists GARDASIL-HPV IMMUNIZATION SERIES Aged Out No longer eligible based on patient's age to complete this topic MENINGOCOCCAL (MENACTRA/MENVEO) Aged Out No longer eligible based on patient's age to complete this topic documented as of this encounter Medical Devices Not on filedocumented as of this encounter Care Teams Ripsaw Operator Relationship Specialty Start Date End Date Fadi Cole III, MD [address] [place] [address] PCP - General Family Medicine 10/20/23 documented as of this encounter
--- OUTSIDE RECORDS SUMMARY | 2024-02-25 16:15 | External Medical Summary | Summary of Care ---
Author Name Unknown Organization [facility] Address [address] [facility] [place] [address] Phone [phone] Care Team Providers Care Perioperative Manager Name Role Phone Kelsey PIERRE MD, Fadi Barker Primary Care Provider [phone] Reason for Visit * Reason Comments Follow Up Patient is here for a 4 week follow-up. Patient states that b/l legs feel like his legs are going numb and medication is not working for him. Encounter Details Date Type Department Care Team (Late st Contact Info) Description 02/14/2024 10:20 AM EDT Office Visit Family Practice [facility] [place] [address] [facility] [place] [address] Rina Neil PA-C [address] [facility] [place] [address] Alcoholic cirrhosis of liver with ascites (HCC)*; Localized edema; Ascites due to alcoholic cirrhosis (HCC); COPD, mild (HCC); Chronic bilateral low back pain with bilateral sciatica; Paresthesias Allergies Active Allergy Reactions Criticality Noted Date Comments Penicillins Unknown 08/09/2023 documented as of this encounter (statuses as of 02/14/2024) Medications Medication Sig Dispensed Refills Start Date End Date Status Folic Acid 5 MG Oral Capsule Take 1 Capsule by mouth in the morning. 100 Capsule 3 11/16/2023 Active Fluticasone Furoate 100 MCG/ACT Inhalation Aerosol Powder Breath Activated (ARNUITY ellipta) Inhale 1 Puff by mouth in the morning. 30 Each 5 01/05/2024 Active Midodrine HCl 5 MG Oral Tablet (Proamatine) Take 1 Tablet by mouth in the morning and 1 Tablet at noon and 1 Tablet in the evening. 90 Tablet 3 02/14/2024 Active Gabapentin 300 MG Oral Capsule (Neurontin)Nanda cations:Chronic bilateral low back pain with bilateral sciatica,Parest hesias Take 1 Capsule by mouth in the morning and 1 Capsule at noon and 1 Capsule before bedtime. 90 Capsule 5 02/14/2024 Active Spironolactone 100 MG Oral Tablet (Aldactone) Take 1 Tablet by mouth in the morning. 30 Tablet 11 02/14/2024 Active Spironolactone 50 MG Oral Tablet (Aldactone)Nanda cations:Localiz ed edema Take 1 Tablet by mouth in the morning. 30 Tablet 11 12/19/2023 4 Discontinued(Refi ll) Midodrine HCl 5 MG Oral Tablet (Proamatine) Take 1 Tablet by mouth in the morning and 1 Tablet at noon and 1 Tablet in the evening. 90 Tablet 3 01/05/2024 4 Discontinued(Refi ll) Spironolactone 50 MG Oral Tablet (Aldactone)Nanda cations:Localiz ed edema Take 1 Tablet by mouth in the morning. 90 Tablet 3 02/14/2024 4 Discontinued documented as of this encounter (statuses as of 02/14/2024) Active Problems Problem Noted Date Diagnosed Date Alcoholic cirrhosis 12/19/2023 Ascites due to alcoholic cirrhosis 12/19/2023 COPD, 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 documented as of this encounter (statuses as of 02/14/2024) Social History Tobacco Use Types Packs/Day Years Used Date Smoking Tobacco: Every Day Cigarettes 1 33.5 Started: 1990 Smokeless Tobacco: Never Alcohol Use [...] on file documented as of this encounter Last Filed Vital Signs Vital Sign Reading Time Taken Comments Blood Pressure 110/72 02/14/2024 10:47 AM EDT Pulse 79 02/14/2024 10:47 AM EDT Temperature 36.2 C (97.1 F) 02/14/2024 10:47 AM E DT Respiratory Rate 17 02/14/2024 10:47 AM EDT Oxygen Saturation 96% 02/14/2024 10:47 AM EDT Inhaled Oxygen Concentration - - Weight 108.9 kg (240 lb) 02/14/2024 10:47 AM EDT Height 173.5 cm (5' 8.31") 02/14/2024 10:47 AM E DT Body Mass Index 36.16 02/14/2024 10:47 AM EDT documented in this encounter Progress Notes * Rina Neil PA-C - 02/14/2024 11:09 AM EDT Images from the original note were not included. History of Present Illness Santiago Amador is a 53 year old male that presents for Follow Up (Patient is here for a 4 week follow-up. Patient states that b/l legs feel like his legs are going numb and medication is not working for him.) Patient is a 53 year old male who presents for a follow up. States swelling has gone down in his legs but now notes numbness in both legs.notes burning in legs. Has back pain Has cut smoking down to 5 cigarettes a day Etoh consumption almost daily. States is less. Declines therapy. Denies chest pain, sob. Palpitations, headaches, dizzy Appetite good Sleep diminish Urination/ bowel movements good. Significant other states he continues to drink alcohol Physical Exam Vitals: 02/14/24 1047 Temp: 36.2 C (97.1 F) Pulse: 79 Resp: 17 SpO2: 96% BP: 110/72 BMI: 36.16 BP Readings from Last 3 Encounters: 02/14/24 110/72 01/16/24 125/85 01/02/24 98/60 Wt Readings from Last 3 Encounters: 02/14/24 108.9 kg (240 lb) 01/02/24 109.8 kg (242 lb 1.9 oz) 12/19/23 111.6 kg (246 lb 0.6 oz) General: alert, no distress, well nourished, well developed, cooperative, and mild jaundice Head: Normocephalic, No masses, lesions, tenderness or abnormalities Eye Exam: PERRLA, extraocular movements intact, conjunctiva are pink and non- injected, sclera clear Oropharynx: no exudate, no erythema, lips, buccal mucosa, and tongue normal, and mucous membranes are moist Neck: supple, no adenopathy, no bruits, thyroid normal size, non-tender, without nodularity Heart: regular rate & rhythm, no murmur, and no gallops Lungs: chest symmetric with normal AP diameter, no chest deformities noted, normal respiratory rateand rhythm, no chest wall tenderness, diaphragmatic excursion normal, lungs clear to auscultation Abdomen: abdomen soft, non-tender, obese, normal bowel sounds, no rebound or guarding, no CVA tenderness, no bladder distention identified, and ascites Extremities: less than 2 second capillary refill, no joint deformities, effusion, or inflammation, no skin discoloration, no clubbing, no cyanosis, moderate bilateral lower extremity edema I have reviewed the following results: CMP and CBC Assessment and Plan Alcoholic cirrhosis of liver with ascites (HCC) (Primary) - COMPREHENSIVE METABOLIC PANEL; Future; Expected date: 02/14/2024 - CBC; Future; Expected date: 02/14/2024 Localized edema Ascites due to alcoholic cirrhosis (HCC) COPD, mild (HCC) Chronic bilateral low back pain with bilateral sciatica - XR L SPINE AP AND LATERAL - Gabapentin 300 MG Oral Capsule (Neurontin); Take 1 Capsule by mouth in the morning and 1 Capsule at noon and 1 Capsule before bedtime. Paresthesias - XR L SPINE AP AND LATERAL - Gabapentin 300 MG Oral Capsule (Neurontin); Take 1 Capsule by mouth in the morning and 1 Capsule at noon and 1 Capsule before bedtime. Other orders - Midodrine HCl 5 MG Oral Tablet (Proamatine); Take 1 Tablet by mouth in the morning and 1 Tablet at noon and 1 Tablet in the evening. - Spironolactone 100 MG Oral Tablet (Aldactone); Take 1 Tablet by mouth in the morning. Follow Up: Return in about 4 weeks (around 03/13/2024). Wrap-Up Time: I spent a total of 30-39 minutes (exact time 38 mins) on the date of service in preparation, delivery, and documentation of the care provided to Santiago Amador excluding any time spent in the performance of separately billed services. documented in this encounter Nursing Notes * Gayatri Villa MED ASSIST - 02/14/2024 10:46 AM EDT Chief Complaint Patient presents with Follow Up Patient is here for a 4 week follow-up. Patient states that b/l legs feel like his legs are going numb and medication is not working for him. documented in this encounter Plan of Treatment Upcoming Encounters Date Type Department Care Team (Late st Contact Info) Description 03/20/2024 2:20 PM EDT Office Visit Family Practice [facility] [address] [facility] [place] [address] Rina Neil PA-C [address] [facility] [place] [address] 04/05/2024 1:00 PM EDT Office Visit Hepatology, [facility] 132 [facility] [place] [address] Sari Holder MD 310 [facility] [place] [address] 04/19/2024 2:00 PM EDT Telemedicine Nephrology, [place] [address] [place] [address] Victoria Boateng MD [address] [place] [address] 01/13/2025 1:45 PM EDT Imaging Radiology [facility] [address] [place] [address] 01/16/2025 3:00 PM EDT Office Visit Urology, [place] [address] [place] [address] Brianna Segovia PA-C [address] [facility] [place] [address] Scheduled Orders Name Type Priority Associated Diagnoses Orde r Schedule XR L SPINE AP AND LATERAL Medical Imaging Routine Chronic bilateral low back pain with bilateral sciatica Paresthesias Ordered: 02/14/2024 COMPREHENSIVE METABOLIC PANEL Lab Routine Alcoholic cirrhosis of liver with ascites (HCC) Expected: 02/14/2024 (Approximate), Expires: 02/13/2025 CBC Lab Routine Alcoholic cirrhosis of liver with ascites (HCC) Expected: 02/14/2024 (Approximate), Expires: 02/13/2025 Health Maintenance Due Date Last Done Comments DISCUSS TOBACCO CESSATION (REFER TO SMARTSET #4093) 1972 Lipid Panel 1972 Pneumococcal Vaccine: Pediatrics [...] Vaccines (1 of 2) 2022 COVID-19 Vaccine (1 - 2022-24 season) 2023 *CXR OR CT FOR COPD EVER 02/11/2024 Influenza Vaccine (FLU shot) (#1) 2024 O2 [...] Not on filedocumented as of this encounter Visit Diagnoses Diagnosis Alcoholic cirrhosis of liver with ascites (HCC)- Primary Alcoholic cirrhosis of liver Localized edema Edema Ascites due to alcoholic cirrhosis (HCC) COPD, mild (HCC) Chronic airway obstruction, not elsewhere classified Chronic bilateral low back pain with bilateral sciatica Paresthesias Disturbance of skin sensation documented in this encounter Care Teams Perioperative Manager Relationship Specialty Start Date End Date Fadi Cole III, MD [address] [place] [address] PCP - General Family Medicine 10/20/23 documented as of this encounter
--- OUTSIDE RECORDS SUMMARY | 2024-02-25 16:15 | External Medical Summary | Summary of Care ---
Author Name Unknown Organization [facility] Address [address] [place] [address] Phone [phone] Care Team Providers Care Pepper Cutter Name Role Phone Kelsey PIERRE MD, John E Primary Care Provider [phone] Encounter Details Date Type Department Care Team (Late st Contact Info) Description 10/18/2023 Telephone Family Practice [facility] [place] [address] [place] [address] Fadi Cole III, MD [address] [facility] [address] Allergies Active Allergy Reactions Criticality Noted Date Comments Penicillins Unknown 08/09/2023 documented as of this encounter (statuses as of 01/17/2024) Medications No known medicationsdocumented as of this encounter (statuses as of 01/17/2024) Active Problems Problem Noted Date Diagnosed Date Alcoholic cirrhosis 12/19/2023 Ascites due to alcoholic cirrhosis 12/19/2023 COPD, 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 documented as of this encounter (statuses as of 01/17/2024) Social History Tobacco Use Types Packs/Day Years [...] encounter Miscellaneous Notes * Telephone Encounter - Fadi Cole III, MD - 10/18/2023 8:05 AM EDT Attempted to call read CT scan lab work has moderate ascites changes of cirrhosis patchy areas in the liver the radiologist has recommended an MR I of the belly abdomen to further assess the liver's will send ask a doc message to Urology in regards to the kidney lesion documented in this encounter Plan of Treatment Upcoming Encounters Date Type Department Care Team (Late st Contact Info) Description 02/14/2024 10:20 AM EDT Office Visit Family Practice [facility] [address] [facility] [place] [address] Rina Neil PA-C [address] [facility] [place] [address] 04/05/2024 1:00 PM EDT Office Visit Hepatology, [facility] [address] [place] [address] Sari Holder MD 310 [facility] [place] [address] 01/13/2025 1:45 PM EDT Imaging Radiology [facility] [address] [place] [address] 01/16/2025 3:00 PM EDT Office Visit Urology, [place] [address] [facility] [place] [address] Brianna Segovia PARachidC [address] [place] [address] Health Maintenance Due Date Last Done Comments DISCUSS TOBACCO CESSATION (REFER TO SMARTSET #3803) 1972 Lipid Panel 1972 Pneumococcal Vaccine: Pediatrics [...] documented as of this encounter Care Teams Pepper Cutter Relationship Specialty Start Date End Date Fadi Cole III, MD [address] [place] [address] PCP - General Family Medicine 10/20/23 documented as of this encounter
--- OUTSIDE RECORDS SUMMARY | 2024-02-25 16:15 | External Medical Summary | Summary of Care ---
Author Name Unknown Organization [facility] Address [address] [place] [address] Phone [phone] Care Team Providers Care Storage Manager Name Role Phone Kelsey PIERRE MD, John E Primary Care Provider Reason for Visit * Reason Onset Date Comments Other 01/05/2024 Status Check 01/05/2024 Encounter Details Date Type Department Care Team (Late st Contact Info) Description 01/05/2024 Telephone Family Practice [facility] [place] 200 [facility] [place] [address] Fadi Cole III, MD [address] [facility] [address] Other; Status Check Allergies Active Allergy Reactions Criticality Noted Date Comments Penicillins Unknown 08/09/2023 documented as of this encounter (statuses as of 01/05/2024) Medications Medication Sig Dispensed Refills Start Date End Date Status Folic Acid 5 MG Oral Capsule Take 1 Capsule by mouth in the morning. 100 Capsule 3 11/16/2023 Active Spironolactone 50 MG Oral Tablet (Aldactone)Indicat ions:Localized edema Take 1 Tablet by mouth in the morning. 30 Tablet 11 12/19/2023 Active Fluticasone Propionate HFA 110 MCG/ACT Inhalation Aerosol Inhale 2 Puffs by mouth in the morning and 2 Puffs before bedtime. 11 g 5 12/19/2023 Active Additional Information Patient not taking.Reported on 01/02/2024 Midodrine HCl 5 MG Oral Tablet (Proamatine) Take 1 Tablet by mouth in the morning and 1 Tablet at noon and 1 Tablet in the evening. 90 Tablet 3 12/28/2023 Active documented as of this encounter (statuses as of 01/05/2024) Active Problems Problem Noted Date Diagnosed Date Alcoholic cirrhosis 12/19/2023 Ascites due to alcoholic cirrhosis 12/19/2023 COPD, 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 documented as of this encounter (statuses as of 01/05/2024) Social History Tobacco Use Types Packs/Day Years [...] encounter Miscellaneous Notes * Telephone Encounter - Nancy Blevins OSA - 01/05/2024 1:10 PM EDT Pt.'s roommate has called in states she went to the pharmacy to sweet pickle maker a medication that was supposed to be filled for patient for an alternative & needs also the fluticasone inhalant. Please advise. Roommate Cheri states if this can be mailed to the pt. That would be great so she's not runningaround. * Telephone Encounter - Cyndi Ortiz CPhT - 01/05/2024 11:48 AM EDT Pt calling to check on status of a request for an alternative medication of Fluticasone Propionate HFA 110 MCG/ACT Inhalation Aerosol . Caller can be reached at [phone]. Thank you, Kirsten Ortiz CPhT Looper Operator II [facility] [address] [place] [address], [address] [place] [address] [phone] * Telephone Encounter - Barbara Garvey CPhT - 01/05/2024 11:39 AM EDT Patient calling in for another alternative for his Rx Fluticasone Propionate HFA 110 MCG/ACT Inhalation Aerosol . Rx would need a PA and pt stated he would rather another alternative to be sent into pharmacy. Please advise at your earliest convenience. Thank you, Barbara Garvey Ship Scaler [facility] 01/05/2024, 11:43 AM documented in this encounter Plan of Treatment Upcoming Encounters Date Type Department Care Team (Late st Contact Info) Description 02/14/2024 10:20 AM EDT Office Visit Family Practice [facility] 200 [place] [place] [address] Rina Neil PA-C 200 [facility] [place] [address] 04/05/2024 1:00 PM EDT Office Visit Hepatology, [facility] 132 [facility] [place] [address] Sari Holder MD [address] [place] [phone] Health Maintenance Due Date Last Done Comments DISCUSS TOBACCO CESSATION (REFER TO SMARTSET #3107) 1972 Lipid Panel 1972 Pneumococcal Vaccine: Pediatrics [...] of 2) 2022 COVID-19 Vaccine (1 - season) 2023 Influenza Vaccine (FLU shot) [...] filedocumented as of this encounter Care Teams Storage Manager Relationship Specialty Start Date End Date Fadi Cole III, MD 200 [facility] [place] [address] PCP - General Family Medicine 10/20/23 documented as of this encounter
--- OUTSIDE RECORDS SUMMARY | 2024-02-25 16:15 | External Medical Summary | Summary of Care ---
Author Name Unknown Organization [facility] Address [address] [place] [address] Phone [phone] Care Team Providers Care Dining Car Conductor Name Role Phone Kelsey PIERRE MD, John E Primary Care Provider Reason for Visit * Reason Onset Date Comments Other 01/05/2024 Status Check 01/05/2024 Encounter Details Date Type Department Care Team (Late st Contact Info) Description 01/05/2024 Telephone Family Practice [facility] [place] 200 [facility] [place] [address] Fadi Cole III, MD 200 [place] [address] Other; Status Check Allergies Active Allergy Reactions Criticality Noted Date Comments Penicillins Unknown 08/09/2023 documented as of this encounter (statuses as of 01/05/2024) Medications Medication Sig Dispensed Refills Start Date End Date Status Folic Acid 5 MG Oral Capsule Take 1 Capsule by mouth in the morning. 100 Capsule 3 11/16/2023 Active Spironolactone 50 MG Oral Tablet (Aldactone)Nanda [...] the morning. 30 Each 5 01/05/2024 Active Fluticasone Propionate HFA 110 MCG/ACT Inhalation Aerosol Inhale 2 Puffs by mouth in the morning and 2 Puffs before bedtime. 11 g 5 12/19/2023 06/07/202 4 Discontinued Midodrine HCl 5 MG Oral Tablet (Proamatine) Take 1 Tablet by mouth in the morning and 1 Tablet at noon and 1 Tablet in the evening. 90 Tablet 3 12/28/2023 4 Discontinued(Refi ll) documented as of this encounter (statuses as [...] as of this encounter Miscellaneous Notes * Addendum Note - Elizabeth Apodaca DO - 01/05/2024 3:01 PM EDTAddended by: ELIZABETH APODACA on: 01/05/2024 03:01 PM Modules accepted: Orders * Telephone Encounter - Elizabeth Apodaca DO - 01/05/2024 2:55 PM EDT I called over and discussed this with Santiago. We discussed his different meds. I resent Midodrine and sent for a different inhaler as his original one was not covered. * Telephone Encounter - Nancy Blevins OSA - 01/05/2024 1:10 PM EDT Pt.'s roommate has called in states she went to the pharmacy to moss picker a medication that was supposed to be [...] Aerosol . Caller can be reached at [phone]. Thank you, Kirsten Ortiz CPhT Residential Mortgage Manager II [facility] [address] [place] [address], [address] [place] [address] [place] [phone] * Telephone Encounter - Barbara Garvey CPhT - 01/05/2024 11:39 AM EDT Patient calling in for another alternative for his Rx Fluticasone Propionate HFA 110 MCG/ACT Inhalation Aerosol . Rx would need a PA and pt stated he would rather another alternative to be sent into pharmacy. Please advise at your earliest convenience. Thank you, Barbara Garvey Restaurant Kitchen Manager [facility] 01/05/2024, 11:43 AM documented in this encounter Plan of Treatment Upcoming Encounters Date Type Department Care Team (Late st Contact Info) Description 02/14/2024 10:20 AM EDT Office Visit Family Practice [facility] 200 [facility] [place] [address] Rina Neil PA-C [address] [facility] [place] [address] 04/05/2024 1:00 PM EDT Office Visit Hepatology, [facility] [address] [facility] [place] [address] Sari Holder MD 310 [facility] [place] [address] Health Maintenance Due Date Last Done Comments DISCUSS TOBACCO CESSATION (REFER TO SMARTSET #5485) 1972 Lipid Panel 1972 Pneumococcal Vaccine: Pediatrics [...] filedocumented as of this encounter Care Teams Dining Car Conductor Relationship Specialty Start Date End Date Fadi Cole III, MD 200 [facility] [place] [address] PCP - General Family Medicine 10/20/23 documented as of this encounter
--- OUTSIDE RECORDS SUMMARY | 2024-02-25 16:15 | External Medical Summary | Summary of Care ---
Author Name Unknown Organization [facility] Address [address] [place] [address] Phone [phone] Care Team Providers Care Real Estate Legal Assistant Name Role Phone Kelsey PIERRE MD, Fadi Barker Primary Care Provider [phone] Reason for Visit * Reason Comments Follow Up * Evaluate & Treat - Unlimited Visits (Within 10 days (routine)) - Authorized Specialty Diagnoses / Procedures Referred By Rick rodriguez Referred To Contact Urology Diagnoses Complex renal cyst Fadi Cole III, MD [address] [place] [address] Referral ID Status Reason Start Date Expiration Date Visits Requested Visits Authorized [id number] Authorized Specialty Services Required 10/18/2023 10/17/2024 [id number] Encounter Details Date Type Department Care Team (Late st Contact Info) Description 01/16/2024 2:00 PM EDT [facility] [address] [place] [address] Brianna Segovia PA-C [address] [place] [address] Complex renal cyst* Allergies Active Allergy Reactions Criticality Noted Date Comments Penicillins Unknown 08/09/2023 documented as of this encounter (statuses as of 01/16/2024) Medications Medication Sig Dispensed Refills Start Date [...] as of this encounter (statuses as of 01/16/2024) Active Problems Problem Noted Date Diagnosed Date Alcoholic cirrhosis 12/19/2023 Ascites due to alcoholic cirrhosis 12/19/2023 COPD, 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 documented as of this encounter (statuses as of 01/16/2024) Social History Tobacco Use Types Packs/Day Years [...] Sign Reading Time Taken Comments Blood Pressure 125/85 01/16/2024 2:10 PM EDT Pulse 97 01/16/2024 2:10 PM EDT Temperature 36.7 C (98 F) 01/16/2024 2:10 PM EDT Respiratory Rate - - Oxygen Saturation - - Inhaled Oxygen Concentration - - Weight - - Height - - Body Mass Index - - documented in this encounter Progress Notes * Brianna Segovia PA-C - 01/16/2024 2:06 PM EDT NEW PATIENT EXAMINATION - Urology Name: Santiago Amador Date: 01/16/2024 Time: 2:06 PM PCP: Fadi Cole III, MD 200 [place] [address] C/c complex renal cyst HPI: This 53 year old male presents to the clinic today 01/16/2024 for evaluation of complex renal cyst right. Pmhx significant for cirrhosis, smoking, ascites, COPD. He is smoking 1/2 ppd of cigarettes. He arrives to clinic alone. He states he cannot void in the office. No dysuria, no hematuria. Hestates as soon as he urinates, he will have to have a BM at the same time. CT ABD/PELVIS W IV AND W ORAL CONTRAST DATE and TIME: 10/17/2023 - 10/17/2023 2:10 pm KIDNEYS/URETERS: 3.2 cm complex cystic lesion in the lower pole of the right kidney with internal septations. Additional bilateral renal cyst. MRI ABDOMEN W WO CONTRAST IMPRESSION 1. Liver iron concentration is provided above. 2. Hepatic cirrhosis. Small foci of fat infiltration adjacent to the gallbladder fossa. The liver is diffusely heterogeneous. The dynamic sequences were significantly degraded by patient breathing motion artifacts. The liver was not adequately evaluated for HCC on this exam. A follow-up [address] or MRI is suggested for re-evaluation of the liver for HCC. 3. Gallstone and probable sludge in the gallbladder. 4. A mildly complex cyst with thin septations in the lower pole of the right kidney measuring 2.8 x2.9 cm. Consider continued surveillance. 5. Moderate ascites. Today, patient reports feeling not bad tired. Denies h/a, c/p, SOB, HALLMAN, Abdominal pain, N/V/D/C. Hx is as below. Denies h/o TIA/CVA, MA, pneumonia, sleep apnea, DVT/PE, DM, other cancers. Positive dialysis, constipation, pneumonia PAST MEDICAL HISTORY: Past Medical History: Diagnosis Date Alcoholic cirrhosis (HCC) 12/19/2023 Ascites due to alcoholic cirrhosis (HCC) 12/19/2023 COPD, mild (HCC) 12/19/2023 Current smoker Family history of colon cancer paternal grandfather PMHx has been reviewed and updated. PAST SURGICAL HISTORY: Past Surgical History: Procedure Laterality Date REMOVAL OF TONSILS, UNDER AGE 14 PSHx has been reviewed and updated. FAMILY HISTORY: Family History Problem Relation Name Age of Onset Stroke Mother Hypertension Mother Diabetes Mother Colon cancer Grandfather (Paternal) FMHx has been reviewed and updated. SOCIAL HISTORY: Works As: not working Lives with: roommates Social History Tobacco Use Smoking status: Every Day Current packs/day: 0.50 Average packs/day: 1 pack/day for 33.5 years (32.2 ttl pk-yrs) Types: Cigarettes Start date: 1990 Smokeless tobacco: Never Vaping Use Vaping status: Never Used Substance Use Topics Alcohol use: Yes Comment: occasional Drug use: Never SHx has been reviewed Current Outpatient Medications Medication Sig Dispense Refill Folic Acid 5 MG Oral Capsule Take 1 Capsule by mouth in the morning. 100 Capsule 3 Spironolactone 50 MG Oral Tablet (Aldactone) Take 1 Tablet by mouth in the morning. 30 Tablet 11 Midodrine HCl 5 MG Oral Tablet (Proamatine) Take 1 Tablet by mouth in the morning and 1 Tablet at noon and 1 Tablet in the evening. 90 Tablet 3 Fluticasone Furoate 100 MCG/ACT Inhalation Aerosol Powder Breath Activated (ARNUITY ellipta) Inhale1 Puff by mouth in the morning. 30 Each 5 No current facility-administered medications for this visit. Review of patient's allergies indicates: Allergen Reactions Penicillins Unknown ROS EXAM: CONSTITUTIONAL: No change in weight, No weakness, No fatigue, and No fevers, sweats, or chills ENT: (+) vertigo and (-) otherwise negative NECK: No lumps or masses, No swollen glands, No recent swelling in thyroid area, No significant pain in neck, and No h/o goiter or thyroid disease CARDIOVASCULAR: No chest pain and Positive for SOB, HALLMAN, lower extremity edema PULMONARY: No cough, sputum, or hemoptysis, No wheezing, No rales, No shortness of breath, and No recent change in breathing GASTROINTESTINAL: No abdominal pain, No change in bowel habits, and No significant heartburn : As above MUSCULOSKELETAL: (-) negative: no pain NEUROLOGIC: Decreased balance, No headaches, No seizures, and Positive for weakness, had recent fall tripped over cat Skin: Denies sweatiness, rash, itching, new/changing skin lesions, or bleeding All other systems normal/negative PHYSICAL EXAMINATION: Most Recent Vital Signs: BP 125/85 (BP Site: Right Arm, BP Position: Sitting, BP Cuff Size: Regular) | Pulse 97 | Temp 36.7 C (98 F) (Tympanic) General: alert, awake, oriented to person and place and situation Eyes: no scleral icterus, normal conjunctiva, Extra ocular muscles intact. No obvious pupil asymmetry. Skin: Warm, dry, w/o rash or diaphoresis Ears nose mouth throat: Normocephalic, atraumatic no masses Cardiovascular regular rate, regular rhythm, no murmur Respiratory: clear to auscultation bilaterally GI: soft, non-tender, palpable ascites, normal bowel sounds Musculoskeletal: no costo-vertebral angle tenderness 2+ pitting edema Urine Culture: he was unable to void in clinic Impression: 1. Right complex renal cyst 2. Current smoker 3. Cirrhosis 4. COPD 5. GRACIELA Plan: Strongly encouraged smoking cessation Referral to hepatology has been previously placed by hematology, I advised him to make an appointment His risk of cancer is higher given his smoking history Rtc in 1 year with renal US Patient discussed with Dr. Amy Segovia PA-C Department of Urology [facility] 01/16/2024 2:06 PM documented in this encounter Plan of Treatment Upcoming Encounters Date Type Department Care Team (Late st Contact Info) Description 02/14/2024 10:20 AM EDT Office Visit Family Practice [facility] 200 [facility] [place] [address] Rina Neil PA-C 200 [facility] [place] [address] 04/05/2024 1:00 PM EDT Office Visit Hepatology, [facility] [address] Sari Holder MD [address] [place], [place] [address] [address] 01/13/2025 1:45 PM EDT Imaging Radiology [facility] [address] 01/16/2025 3:00 PM EDT Office Visit Urology, [place] [address] [place] [address] Brianna Segovia PA-C [address] [place] [address] Scheduled Orders Name Type Priority Associated Diagnoses Orde r Schedule US RENAL Medical Imaging Routine Complex renal cyst Expected: 01/15/2025, Expires: 02/14/2025 Health Maintenance Due Date Last Done Comments DISCUSS TOBACCO CESSATION (REFER TO SMARTSET #3291) 1972 Lipid Panel 1972 Pneumococcal Vaccine: Pediatrics [...] as of this encounter Visit Diagnoses Diagnosis Complex renal cyst- Primary Other specified congenital cystic kidney disease documented in this encounter Care Teams Real Estate Legal Assistant Relationship Specialty Start Date End Date Fadi Cole III, MD 200 [place] [address] PCP - General Family Medicine 10/20/23 documented as of this encounter"
--- OUTSIDE RECORDS SUMMARY | 2024-02-25 16:15 | External Medical Summary | Summary of Care ---
Author Name Unknown Organization [facility] Address [address] [place] [address] Phone [phone] Care Team Providers Care Fire Behavior Analyst Name Role Phone Kelsey PIERRE MD, John E Primary Care Provider Reason for Visit * Reason Onset Date Comments Other 01/05/2024 Status Check 01/05/2024 Encounter Details Date Type Department Care Team (Late st Contact Info) Description 01/05/2024 Telephone Family Practice [facility] [place] 200 [facility] [place] [address] Fadi Cole III, MD [facility] [address] Other; Status Check Allergies Active Allergy Reactions [...] encounter Miscellaneous Notes * Telephone Encounter - Cyndi Ortiz CPhT - 01/05/2024 11:48 AM EDT Pt calling to check on status of a request for an alternative medication of Fluticasone Propionate HFA 110 MCG/ACT Inhalation Aerosol . Caller can be reached at [phone]. Thank you, Kirsten Ortiz CPhT Senior Inspector II [facility] [address] [place] [address], [address] [phone] * Telephone Encounter - Barbara Garvey CPhT - 01/05/2024 11:39 AM EDT Patient calling in for another alternative for his Rx Fluticasone Propionate HFA 110 MCG/ACT Inhalation Aerosol . Rx would need a PA and pt stated he would rather another alternative to be sent into pharmacy. Please advise at your earliest convenience. Thank you, Barbara Garvey Emergency Nurse [facility] 01/05/2024, 11:43 AM documented in this encounter Plan of Treatment Upcoming Encounters Date Type Department Care Team (Late st Contact Info) Description 02/14/2024 10:20 AM EDT Office Visit [facility] [address] [place] [address] [place] [address] Rina Neil PA-C [address] [place] [address] 04/05/2024 1:00 PM EDT Office Visit Hepatology, [facility] [address] [place] [address] Sari Holder MD [address] [place] [address] Health Maintenance Due Date Last Done Comments DISCUSS TOBACCO CESSATION (REFER TO SMARTSET #4307) 1972 Lipid Panel 1972 Pneumococcal Vaccine: Pediatrics [...] filedocumented as of this encounter Care Teams Fire Behavior Analyst Relationship Specialty Start Date End Date Fadi Cole III, MD [address] [place] [address] PCP - General Family Medicine 10/20/23 documented as of this encounter
--- OUTSIDE RECORDS SUMMARY | 2024-02-25 16:16 | External Medical Summary | Summary of Care ---
Author Name Unknown Organization [facility] Address [address] [place] [address] Phone [phone] Care Team Providers Care Lpn Care Manager Name Role Phone Kelsey PIERRE MD, Fadi Barker Primary Care Provider [phone] Reason for Visit * Reason Comments Outpatient Testing Encounter Details Date Type Department Care Team (Late st Contact Info) Description 12/20/2023 1:30 PM EDT Laboratory Laboratory [facility] [place] [address] [place] [phone] [place] [address] [place] [address] Diarrhea, unspecified type Allergies Active Allergy Reactions Criticality Noted Date Comments Penicillins Unknown 08/09/2023 documented as of this encounter (statuses as of 12/21/2023) Medications Medication Sig Dispensed Refills Start Date [...] before bedtime. 11 g 5 12/19/2023 Active documented as of this encounter (statuses as of 12/21/2023) Active Problems Problem Noted Date Diagnosed Date Alcoholic cirrhosis 12/19/2023 Ascites due to alcoholic cirrhosis 12/19/2023 COPD, 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 documented as of this encounter (statuses as of 12/21/2023) Social History Tobacco Use Types Packs/Day Years Used Date Smoking Tobacco: Every Day Cigarettes 1 33.4 Started: 1991 Smokeless Tobacco: Never Alcohol Use Standard Drinks/Week [...] as of this encounter Miscellaneous Notes * Result Encounter Note - Rina Neil PA-C - 12/20/2023 7:05 PM EDT Please send a lab letter stating results normal. documented in this encounter Plan of Treatment Upcoming Encounters Date Type Department Care Team (Late st Contact Info) Description 01/02/2024 1:00 PM EDT Office Visit Family Practice [facility] 200 [place] [address] Rina Neil PA-C 200 [facility] [place] [address] 04/05/2024 1:00 PM EDT Office Visit Hepatology, [facility] 132 [facility] [place] [address] Sari Holder MD [address] [place] [address] Pending Results Name Type Priority Associated Diagnoses Date /Time GASTROINTESTINAL PATHOGEN PANEL, STOOL Lab Routine Diarrhea, unspecified type 12/20/2023 1:28 PM EDT GASTROINTESTINAL PATHOGEN PANEL PCR Lab Routine Diarrhea, unspecified type 12/20/2023 1:28 PM EDT GASTROINTESTINAL PATHOGEN PANEL CULTURE Lab Routine Diarrhea, unspecified type 12/20/2023 1:28 PM EDT Health Maintenance Due Date Last Done Comments DISCUSS TOBACCO CESSATION (REFER TO SMARTSET #1280) 1972 Lipid Panel 1972 Pneumococcal Vaccine: Pediatrics [...] of 2) 2022 COVID-19 Vaccine (1 - 2022-2 4 season) 2023 Influenza Vaccine (FLU shot) (Season Ended) 2024 O2 ASSESSMENT COMPLETED IN PAST YEAR FOR COPD 12/18/2024 12/19/2023 Diabetes Screening 12/18/2026 12/19/2023, 10/17/2023 GARDASIL-HPV IMMUNIZATION SERIES Aged Out No longer eligible b ased on patient's age to complete this topic MENINGOCOCCAL (MENACTRA/MENVEO) Aged Out No longer eligible b ased on patient's age to complete this topic documented as of this encounter Medical Devices Not on filedocumented as of this encounter Procedures Procedure Name Priority Date/Time Associated Diagnosis Comments CLOSTRIDIUM DIFFICILE, PCR Routine 12/20/2023 1:28 PM EDT Diarrhea, unspecified type documented in this encounter Results * CLOSTRIDIUM DIFFICILE, PCR (12/20/2023 1:28 PM EDT) Stool Consistency Semi-liquid 12/20/2023 7:02 PM EDT [facility] Clostridium difficile Result Negative. No C. difficile toxin B gene DNA detected by PCR (Amplified Probe). Negative 12/20/2023 7:02 PM EDT [facility] Stool Stool specimen / Unknown Non-blood Collection / Unknown 12/20/2023 1:28 PM EDT 12/20/2023 1:28 PM EDT October Jolynn NEW LAB MICRO - GENERAL ORDERABLES [facility] [address] [place] [address] documented in this encounter Visit Diagnoses Diagnosis Diarrhea, unspecified type documented in this encounter Additional Health Concerns Infection Onset Date Last Indicated Resolved Time C. difficile Rule-Out 12/20/2023 12/20/20232023 7:02 PM EDT Gastrointestinal Rule-Out 12/20/2023 12/20/2023 documented as of this encounter Care Teams Lpn Care Manager Relationship Specialty Start Date End Date Fadi Cole III, MD [address] [place] [address] PCP - General Family Medicine 10/20/23 documented as of this encounter
--- OUTSIDE RECORDS SUMMARY | 2024-02-25 16:16 | External Medical Summary ---
Author Name Unknown Address Unknown Organization K09:[facility] [place] [address] Laboratory Report Ordering Provider Test Date Status CONSTANZA JOHNSON 12/26/2023 12:17:04 Final Observation Date Value Abnormality Reference (Units ) Status WBC, Total 12/26/2023 12:17:04 10.10 4.00-10.8 0 (K/uL) Final RBC 12/26/2023 12:17:04 1.99 4.50-5.25 (M/uL) Final Hemoglobin 12/26/2023 12:17:04 7.5 Below low normal 14 .0-16.8 (g/dL) Final HCT 12/26/2023 12:17:04 22.7 Below low normal 40. 0-48.4 (%) Final MCV 12/26/2023 12:17:04 114.1 82.0-99.5 (fL) Final MCH 12/26/2023 12:17:04 37.7 27.0-34.0 (pg) Final MCHC 12/26/2023 12:17:04 33.0 32.0-36.0 (g/dL) Final RDW 12/26/2023 12:17:04 15.2 11.5-15.5 (%) Final Platelets 12/26/2023 12:17:04 194 140-400 (K /uL) Final MPV 12/26/2023 12:17:04 9.9 6.6-11.1 ( fL) Final Performing Location [facility] [address]
--- OUTSIDE RECORDS SUMMARY | 2024-02-25 16:16 | External Medical Summary | Summary of Care ---
Author Name Unknown Organization [facility] Address [address] [place] [facility] [place] [place] [address] Phone [phone] Care Team Providers Care Red Hat Linux Administrator Name Role Phone Kelsey PIERRE MD, Fadi Barker Primary Care Provider [phone] [phone] Encounter Details Date Type Department Care Team (Late st Contact Info) Description 12/22/2023 Telephone Family Practice [facility] [place] [address] [facility] [place] [address] Shahram Booth, 200 [facility] [place] [address] Allergies Active Allergy Reactions Criticality Noted Date Comments Penicillins Unknown 08/09/2023 documented as of this encounter (statuses as of 12/22/2023) Medications Medication Sig Dispensed Refills Start Date [...] as of this encounter (statuses as of 12/22/2023) Active Problems Problem Noted Date Diagnosed Date Alcoholic cirrhosis 12/19/2023 Ascites due to alcoholic cirrhosis 12/19/2023 COPD, 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 documented as of this encounter (statuses as of 12/22/2023) Social History Tobacco Use Types Packs/Day Years [...] encounter Miscellaneous Notes * Telephone Encounter - Shahram Booth DO - 12/22/2023 12:37 PM EDT I called over to Mr. Amador. He has more energy and his swelling has gone down drastically. He says the last 2 days he feels better than he has in months. He says he cut back quite a bit on alcohol. 2 glasses spread through the day is much better from him. Considering his ARF and low blood count I considered sending him to the hospital. I'm really encouraged by the difference that less alcohol and adding aldactone has made. We discussed the risks of not cutting back more and not getting immediate care. He will come in for repeat blood work tomorrow at or Monday at and has close follow-up scheduled. * Telephone Encounter - Shahram Booth DO - 12/22/2023 12:29 PM EDT ----- Message from Rina Neil sent at 12/21/2023 9:33 PM EDT ----- Cody Omalley, This is the patient we talked about with the alcoholic cirrhosis. Should I send him to the ER for a transfusion. ?? ----- Message ----- From: Linda Rodríguez Automated Processing Sent: 12/19/2023 1:26 PM EDT To: Rina Neil PA-C documented in this encounter Plan of Treatment Upcoming Encounters Date Type Department Care Team (Late st Contact Info) Description 01/02/2024 1:00 PM EDT Office Visit Family [facility] Aime Manning [address] [place] [address] Rina Neil PA-C [address] [place] [address] [address] 04/05/2024 1:00 PM EDT Office Visit Hepatology, [facility] [address] [place] [address] Sari Holder MD [address] [place] [phone] Scheduled Orders Name Type Priority Associated Diagnoses Orde r Schedule COMPREHENSIVE METABOLIC PANEL Lab Routine Alcoholic cirrhosis of liver with ascites (HCC) Expected: 12/22/2023 (Approximate), Expires: 12/21/2024 CBC Lab Routine Alcoholic cirrhosis of liver with ascites (HCC) Expected: 12/22/2023 (Approximate), Expires: 12/21/2024 PT INR Lab Routine Alcoholic cirrhosis of liver with ascites (HCC) Expected: 12/22/2023 (Approximate), Expires: 12/21/2024 Health Maintenance Due Date Last Done Comments DISCUSS TOBACCO CESSATION (REFER TO SMARTSET #0939) 1972 Lipid Panel 1972 Pneumococcal Vaccine: Pediatrics [...] ascites (HCC)- Primary Alcoholic cirrhosis of liver documented in this encounter Care Teams Red [employer] Linux Administrator Relationship Specialty Start Date End Date Fadi Cole III, MD [address] [place] [address] PCP - General Family Medicine 10/20/23 documented as of this encounter
--- OUTSIDE RECORDS SUMMARY | 2024-02-25 16:16 | External Medical Summary | Summary of Care ---
Author Name Unknown Organization [facility] Address [address] [place] [facility] [place] [address] Phone [phone] Care Team Providers Care Cigarette Lighter Repairer Name Role Phone Kelsey PIERRE MD, John E Primary Care Provider [phone] Reason for Visit * Reason Onset Date Comments Test Results 11/22/2023 Encounter Details Date Type Department Care Team (Late st Contact Info) Description 11/22/2023 Telephone Family Practice [facility] [place] [address] [facility] [place] [address] Fadi Cole III, MD 200 [facility] [place] [address] Test Results Allergies Active Allergy Reactions Criticality Noted Date Comments Penicillins Unknown 08/09/2023 documented as of this encounter (statuses as of 11/22/2023) Medications Medication Sig Dispensed Refills Start Date End Date Status Folic Acid 5 MG Oral Capsule Take 1 Capsule by mouth in the morning. 100 Capsule 3 11/16/2023 Active Anoro Ellipta 62.5-25 MCG/ACT Inhalation Aerosol Powder Breath Activated (umeclidinium-vilant bill) Inhale 1 Puff by mouth in the morning. 30 Each 11 11/16/2023 Active documented as of this encounter (statuses as of 11/22/2023) Active Problems No known active problems documented as of this encounter (statuses as of 11/22/2023) Social History Tobacco Use Types Packs/Day Years Used Date Smoking Tobacco: Every Day Cigarettes 1 33.3 Started: 1990 Smokeless Tobacco: Never Alcohol Use [...] encounter Miscellaneous Notes * Telephone Encounter - Gayatri Villa MED ASSIST - 11/22/2023 10:52 AM EDT ----- Message from Fadi Cole III, MD sent at 11/22/2023 10:10 AM EDT ----- Pulmonary function showing moderate obstructive lung disease let us know how the Anoro Ellipta inhaler is working * Telephone Encounter - Fadi Cole III, MD - 11/22/2023 10:47 AM EDT This should be a message from Hematology that has already been sent back to the box in regards to the MR I please notify patient * Telephone Encounter - Jaimie Sauer LPN - 11/22/2023 9:56 AM EDT TEST RESULTS REQUEST Who is requesting: patient Test results that are being requested: MRI Date of testin11/20/23 Location of test: [facility] Ordering provider: Dr Pierce Results available in chart: Yes finalized documented in this encounter Plan of Treatment Upcoming Encounters Date Type Department Care Team (Late st Contact Info) Description 12/18/2023 11:40 AM EDT Office Visit Family Practice [facility] 200 [place] [address] Juana Elder PA-C 200 [place] [address] 04/05/2024 1:00 PM EDT Office Visit Hepatology, [facility] 132 [facility] [place] [address] Sari Holder MD [address] [place] [address] [place] [phone] Health Maintenance Due Date Last Done Comments Lipid Panel 1972 Pneumococcal Vaccine: Pediat rics (0 to 5 Years) and At-Risk Patients (6 to 64 Years) (1 of 2 - PCV) 1978 Depression Screening 1984 HIV Screening 1987 DTaP,Tdap,and Td Vaccines (1 - Tdap) 1991 Hepatitis B (1 of 3 - 19+ 3- dose series) 1991 Cologuard 2017 Colonoscopy 2017 Colorectal Cancer Screening 2017 Fecal Occult Blood Test 2017 Sigmoidoscopy 2017 Lung Cancer Screening 2022 Zoster Vaccines (1 of 2) 2022 COVID-19 Vaccine (1 - 2022-2 4 season) 2023 Influenza Vaccine (FLU shot) (Season Ended) 2024 Diabetes Screening 10/16/2026 10/17/2023 GARDASIL-HPV IMMUNIZATION SERIES Aged Out No longer eligible based on patient's age to complete this topic MENINGOCOCCAL (MENACTRA/MENVEO) Aged Out No longer eligible based on patient's age to complete this topic documented as of this encounter Medical Devices Not on filedocumented as of this encounter Care Teams Cigarette Lighter Repairer Relationship Specialty Start Date End Date Fadi Cole III, MD [address] [place] [address] PCP - General Family Medicine 10/20/23 documented as of this encounter
--- OUTSIDE RECORDS SUMMARY | 2024-02-25 16:16 | External Medical Summary | Summary of Care ---
Author Name Unknown Organization [facility] Address [address] [place] [address] Phone [phone] Care Team Providers Care Crack Off Person Name Role Phone Kelsey PIERRE MD, Fadi Barker Primary Care Provider [phone] Reason for Visit * Reason Comments Outpatient Testing Encounter Details Date Type Department Care Team (Late st Contact Info) Description 01/02/2024 1:40 PM EDT Laboratory Laboratory [facility] [place] [address] [place] [phone] [place], Lab Scenery [address] [place] [address] Anemia, unspecified type; Ascites due to alcoholic cirrhosis (HCC) Allergies Active Allergy Reactions Criticality Noted Date Comments Penicillins Unknown 08/09/2023 documented as of this encounter (statuses as of 01/02/2024) Medications Medication Sig Dispensed Refills Start Date [...] as of this encounter (statuses as of 01/02/2024) Active Problems Problem Noted Date Diagnosed Date Alcoholic cirrhosis 12/19/2023 Ascites due to alcoholic cirrhosis 12/19/2023 COPD, 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 documented as of this encounter (statuses as of 01/02/2024) Social History Tobacco Use Types Packs/Day Years [...] on file documented as of this encounter Plan of Treatment Upcoming Encounters Date Type Department Care Team (Late st Contact Info) Description 02/14/2024 11:40 AM EDT Office Visit Family Practice [facility] 200 [facility] [place] [address] Rina Neil PA-C 200 [facility] [place] [address] 04/05/2024 1:00 PM EDT Office Visit Hepatology, [facility] 132 [facility] [place] [address] Sari Holder MD 310 [facility] [place] [address] Pending Results Name Type Priority Associated Diagnoses Date /Time CBC Lab Routine Anemia, unspecified type 01/02/2024 1:41 PM EDT COMPREHENSIVE METABOLIC PANEL Lab Routine Ascites due to alcoholic cirrhosis (HCC) 01/02/2024 1:41 PM EDT Health Maintenance Due Date Last Done Comments DISCUSS TOBACCO CESSATION (REFER TO SMARTSET #6415) 1972 Lipid Panel 1972 Pneumococcal Vaccine: Pediatrics [...] YEAR FOR COPD 01/01/2025 01/02/2024 Diabetes Screening 12/25/2026 12/26/2023, 12/19/2023, 10/17/2023 GARDASIL-HPV IMMUNIZATION SERIES Aged Out No longer eligible b ased on patient's age to complete this topic MENINGOCOCCAL (MENACTRA/MENVEO) Aged Out No longer eligible b ased on patient's age to complete this topic documented as of this encounter Medical Devices Not on filedocumented as of this encounter Visit Diagnoses Diagnosis Anemia, unspecified type Ascites due to alcoholic cirrhosis (HCC) documented in this encounter Care Teams Crack Off Person Relationship Specialty Start Date End Date Fadi Cole III, MD [address] [place] [address] PCP - General Family Medicine 10/20/23 documented as of this encounter
--- OUTSIDE RECORDS SUMMARY | 2024-02-25 16:16 | External Medical Summary ---
Author Name Unknown Address Unknown Organization [id number] [address] [place] [address] Laboratory Report Ordering Provider Test Date Status 12/19/2023 13:03:49 Final Observation Date Value Abnormality Reference (Units ) Status BUN 12/19/2023 13:03:49 30 Above high normal 6-20 (mg/dL) Final Creatinine 12/19/2023 13:03:49 2.1 Above high normal 0.6-1.2 (mg/dL) Final Glomerular filtration rate/1.73 sq M.predicted [Volume Rate/Area] in Serum, Plasma or Blood by Creatinine-based formula (CKD-EPI) 12/19/2023 13:03:49 39 Below low normal >=60 (mL/min) Final eGFR is calculated based on the CKD-EPI 2020 equation Sodium 12/19/2023 13:03:49 133 Below low normal 135 -146 (mmol/L) Final Potassium 12/19/2023 13:03:49 3.3 Below low normal 3.5 -5.1 (mmol/L) Final Cl 12/19/2023 13:03:49 94 Below low normal 98- 107 (mmol/L) Final CO2 12/19/2023 13:03:49 25 22-32 (mmo l/L) Final Anion gap 12/19/2023 13:03:49 14 7-15 (mmol /L) Final Glucose 12/19/2023 13:03:49 97 70-120 (mg /dL) Final Albumin 12/19/2023 13:03:49 2.7 Below low normal 3.8 -5.0 (g/dL) Final AST (Aspartate aminotransferase) 12/19/2023 13:03:49 42 10-50 (U/L) Fin al Alk Phos 12/19/2023 13:03:49 65 35-130 (U/ L) Final Bilirubin, Total 12/19/2023 13:03:49 2.1 Above high no rmal <=1.2 (mg/dL) Final Calcium 12/19/2023 13:03:49 8.6 8.4-10.2 ( mg/dL) Final Protein 12/19/2023 13:03:49 7.2 6.0-8.3 (g /dL) Final ALT (Alanine aminotransferase) 12/19/2023 13:03:49 15 10-50 (U/L) Yohan thomas Performing Location [facility] [place] [address]
--- OUTSIDE RECORDS SUMMARY | 2024-02-25 16:16 | External Medical Summary ---
Author Name Unknown Address Unknown Organization [facility] [place] [address] [place] [address] Laboratory Report Ordering Provider Test Date Status CONSTANZA JOHNSON 12/26/2023 12:17:04 Final Warfarin Therapy
INR: 2 .0-3.0 conventional anticoagulation
INR: 2.5- 3.5 high intensity anticoagulation Observation Date Value Abnormality Reference (Units ) Status PT 12/26/2023 12:17:04 19.4 Above high normal 11 .6-15.2 (seconds) Final INR 12/26/2023 12:17:04 1.6 Above high normal 0. 8-1.2 Final Performing Location [facility] [place] [address]
--- OUTSIDE RECORDS SUMMARY | 2024-02-25 16:16 | External Medical Summary | Summary of Care ---
Author Name Unknown Organization [facility] Address [address] [place] [address] Phone [phone] Care Team Providers Care Cook Restaurant Name Role Phone Kelsey PIERRE MD, Fadi Barker Primary Care Provider [phone] Reason for Visit * Reason Comments Outpatient Testing Encounter Details Date Type Department Care Team (Late st Contact Info) Description 12/20/2023 1:30 PM EDT Laboratory Laboratory [facility] [place] [address] [place] [phone] [place], Lab Scenery [address] [place] [address] Diarrhea, unspecified type Allergies Active Allergy Reactions [...] Encounter Note - Rina Neil PA-C - 12/21/2023 9:01 PM EDT Please send a lab letter stating results normal. * Result Encounter Note - Rina Neil PA-C - 12/20/2023 7:05 PM EDT Please send a lab letter stating results normal. documented in this encounter Plan of Treatment Upcoming Encounters Date Type Department Care Team (Late st Contact Info) Description 01/02/2024 1:00 PM EDT Office Visit Family Practice [facility] 200 [facility] [place] [address] Rina Neil PA-C 200 [facility] [place] [address] 04/05/2024 1:00 PM EDT Office Visit Hepatology, [facility] 132 [facility] [place] [address] Sari Holder MD [address] [facility] [place] [address] Pending Results Name Type Priority Associated Diagnoses Date /Time GASTROINTESTINAL PATHOGEN PANEL, STOOL Lab Routine Diarrhea, unspecified type 12/20/2023 1:28 PM EDT GASTROINTESTINAL PATHOGEN PANEL CULTURE Lab Routine Diarrhea, unspecified type 12/20/2023 1:28 PM EDT Health Maintenance Due Date Last Done Comments DISCUSS TOBACCO CESSATION (REFER TO SMARTSET #6811) 1972 Lipid Panel 1972 Pneumococcal Vaccine: Pediatrics [...] Procedure Name Priority Date/Time Associated Diagnosis Comments GASTROINTESTINAL PATHOGEN PANEL PCR Routine 12/20/2023 1:28 PM EDT Diarrhea, unspecified type CLOSTRIDIUM DIFFICILE, PCR Routine 12/20/2023 1:28 PM EDT Diarrhea, unspecified type documented in this encounter Results * GASTROINTESTINAL PATHOGEN PANEL PCR (12/20/2023 1:28 PM EDT) Campylobacter group by PCR Negative Negative 12/21/2023 9:53 AM EDT [facility] Salmonella species by PCR Negative Negative 12/21/2023 9:53 AM EDT [facility] Shigella species by PCR Negative Negative 12/21/2023 9:53 AM EDT [facility] Vibrio group by PCR Negative Negative 12/21/2023 9:53 AM EDT [facility] Yersinia enterocolitica by PCR Negative Negative 12/21/2023 9:53 AM EDT [facility] Shiga Toxin 1 Gene by PCR Negative Negative 12/21/2023 9:53 AM EDT [facility] Shiga Toxin 2 Gene by PCR Negative Negative 12/21/2023 9:53 AM EDT [facility] Norovirus by PCR Negative Negative 12/21/19 9:53 AM EDT [facility] Rotavirus by PCR Negative Negative 12/21/19 9:53 AM EDT [facility] Stool Stool specimen / Unknown Non-blood Collection / Unknown 12/20/2023 1:28 PM EDT 12/20/2023 1:28 PM EDT Rina Raul Neil PA-C LAB MICRO - GENERAL ORDERABLES [facility] [address] [place] [address] * CLOSTRIDIUM DIFFICILE, PCR (12/20/2023 1:28 PM EDT) Stool Consistency Semi-liquid 12/20/2023 7:02 PM EDT [facility] Clostridium difficile Result Negative. No C. difficile toxin B gene DNA detected by PCR (Amplified Probe). Negative 12/20/2023 7:02 PM EDT LABORATORY C Stool Stool specimen / Unknown Non-blood Collection / Unknown 12/20/2023 1:28 PM EDT 12/20/2023 1:28 PM EDT Rina Neil PA-C LAB MICRO - GENERAL ORDERABLES [facility] [address] [place] [address] documented in this encounter Visit Diagnoses Diagnosis Diarrhea, unspecified type documented in this encounter Additional Health Concerns Infection Onset Date Last Indicated Resolved Time C. difficile Rule-Out 12/20/2023 12/20/20232023 7:02 PM EDT Gastrointestinal Rule-Out 12/20/2023 12/20/2023 9:53 AM EDT documented as of this encounter Care Teams Cook Restaurant Relationship Specialty Start Date End Date Fadi Cole III, MD [address] [place] [address] PCP - General Family Medicine 10/20/23 documented as of this encounter
--- OUTSIDE RECORDS SUMMARY | 2024-02-25 16:16 | External Medical Summary | Summary of Care ---
Author Name Unknown Organization [facility] Address [address] [place] [address] Phone [phone] Care Team Providers Care Company Doctor Name Role Phone Kelsey PIERRE MD, Fadi Barker Primary Care Provider [phone] Reason for Visit * Reason Comments Outpatient Testing Encounter Details Date Type Department Care Team (Late st Contact Info) Description 12/26/2023 12:20 PM EDT Laboratory Laboratory [facility] [place] [address] [place] [phone] [place], Lab Scenery [address] [place] [address] Alcoholic cirrhosis of liver with ascites (HCC) Allergies Active Allergy Reactions Criticality Noted Date Comments Penicillins Unknown 08/09/2023 documented as of this encounter (statuses as of 12/26/2023) Medications Medication Sig Dispensed Refills Start Date [...] as of this encounter (statuses as of 12/26/2023) Active Problems Problem Noted Date Diagnosed Date Alcoholic cirrhosis 12/19/2023 Ascites due to alcoholic cirrhosis 12/19/2023 COPD, 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 [place] [address] Sari Holder MD [address] [place] [phone] Pending Results Name Type Priority Associated Diagnoses Date /Time COMPREHENSIVE METABOLIC PANEL Lab Routine Alcoholic cirrhosis of liver with ascites (HCC) 12/26/2023 12:17 PM EDT PT INR Lab Routine Alcoholic cirrhosis of liver with ascites (HCC) 12/26/2023 12:17 PM EDT Health Maintenance Due Date Last Done Comments DISCUSS TOBACCO CESSATION (REFER TO SMARTSET #1365) 1972 Lipid Panel 1972 Pneumococcal Vaccine: Pediatrics [...] Procedure Name Priority Date/Time Associated Diagnosis Comments CBC Routine 12/26/2023 12:17 PM EDT Alcoholic cirrhosis of liver with ascites (HCC) documented in this encounter Results * (ABNORMAL) CBC (12/26/2023 12:17 PM EDT) WBC 10.10 4.00 - 10.80 K/uL 12/26/2023 12:27 PM EDT [facility]- RBC 1.99 4.50 - 5.25 M/uL 12/26/2023 12:27 PM EDT [facility] 56 HGB 7.5(L) 14.0 - 16.8 g/dL 12/26/2023 12:27 PM EDT [facility] 56- HCT 22.7(L) 40.0 - 48.4 % 12/26/2023 12:27 PM EDT [facility] 56- MCV 114.1 82.0 - 99.5 fL 12/26/2023 12:27 PM EDT [facility] 56- MCH 37.7 27.0 - 34.0 pg 12/26/2023 12:27 PM EDT [facility] 56- MCHC 33.0 32.0 - 36.0 g/dL 12/26/2023 12:27 PM EDT [facility] 56- RDW 15.2 11.5 - 15.5 % 12/26/2023 12:27 PM EDT [facility] 56- PLT 194 140 - 400 K/uL 12/26/2023 12:27 PM EDT [facility] MPV 9.9 6.6 - 11.1 fL 12/26/2023 12:27 PM EDT [facility] Blood Venous blood specimen / Unknown Venipuncture / Unknown 12/26/2023 12:17 PM EDT 12/26/2023 12:17 PM EDT Shahram Booth DO LAB BLOOD ORDERABLE S [facility] [address] [facility] [address] documented in this encounter Visit Diagnoses Diagnosis Alcoholic cirrhosis of liver with ascites (HCC) Alcoholic cirrhosis of liver documented in this encounter Care Teams Company Doctor Relationship Specialty Start Date End Date Fadi Cole III, MD 200 [facility] [place] [address] PCP - General Family Medicine 10/20/23 documented as of this encounter
--- OUTSIDE RECORDS SUMMARY | 2024-02-25 16:16 | External Medical Summary ---
Author Name Unknown Address Unknown Organization K01:[facility] - [address] [facility] [place] [address] Laboratory Report Ordering Provider Test Date Status 12/20/2023 13:28:25 Final Observation Date Value Abnormality Reference (Units ) Status Campylobacter sp DNA.diarrheagenic [Presence] in Stool by TALHA with probe detection 12/20/2023 13:28:25 Negative Negative Final Salmonella sp rpoD gene [Presence] in Stool by TALHA with probe detection 12/20/2023 13:28:25 Negative Negative Final Shigella species+EIEC invasion plasmid antigen H ipaH gene [Presence] in Stool by TALHA with probe detection 12/20/2023 13:28:25 Negative Negative Final Vibrio sp DNA [Identifier] in Specimen by TALHA with probe detection 12/20/2023 13:28:25 Negative Negative Final Yersinia enterocolitica recN gene [Presence] in Stool by TALHA with probe detection 12/20/2023 13:28:25 Negative Negative Final Escherichia coli Stx1 toxin stx1 gene [Presence] in Stool by TALHA with probe detection 12/20/2023 13:28:25 Negative Negative Final Escherichia coli Stx2 toxin stx2 gene [Presence] in Stool by TALHA with probe detection 12/20/2023 13:28:25 Negative Negative Final Norovirus genogroups I and II RNA panel - Stool by TALHA with probe detection 12/20/2023 13:28:25 Negative Negative Final Rotavirus A RNA [Presence] in Stool by TALHA with probe detection 12/20/2023 13:28:25 Negative Negative Final Performing Location LAB[facility]ATORY [facility] - [address] [place] [address]
--- OUTSIDE RECORDS SUMMARY | 2024-02-25 16:16 | External Medical Summary ---
Author Name Unknown Address Unknown Organization K09:[facility] [place] [address] [place] [address] Laboratory Report Ordering Provider Test Date Status 12/19/2023 13:03:49 Final Observation Date Value Abnormality Reference (Units ) Status WBC, Total 12/19/2023 13:03:49 10.40 4.00-10.8 0 (K/uL) Final RBC 12/19/2023 13:03:49 1.94 4.50-5.25 (M/uL) Final Hemoglobin 12/19/2023 13:03:49 7.3 Below low normal 14 .0-16.8 (g/dL) Final HCT 12/19/2023 13:03:49 22.8 Below low normal 40. 0-48.4 (%) Final MCV 12/19/2023 13:03:49 117.5 82.0-99.5 (fL) Final MCH 12/19/2023 13:03:49 37.6 27.0-34.0 (pg) Final MCHC 12/19/2023 13:03:49 32.0 32.0-36.0 (g/dL) Final RDW 12/19/2023 13:03:49 14.6 11.5-15.5 (%) Final Platelets 12/19/2023 13:03:49 197 140-400 (K /uL) Final MPV 12/19/2023 13:03:49 10.4 6.6-11.1 ( fL) Final Performing Location [facility] [place] [address]
--- OUTSIDE RECORDS SUMMARY | 2024-02-25 16:16 | External Medical Summary | Summary of Care ---
Author Name Unknown Organization [facility] Address [address] [place] [address] Phone [phone] Care Team Providers Care Trucking Contractor Name Role Phone Kelsey PIERRE MD, Fadi Barker Primary Care Provider [phone] Reason for Visit * Reason Comments Outpatient Testing Encounter Details Date Type Department Care Team (Late st Contact Info) Description 12/20/2023 1:30 PM EDT Laboratory Laboratory [facility] [place] [address] [place] [phone] [place], [address] [place] [address] Diarrhea, unspecified type Allergies Active Allergy Reactions Criticality Noted Date Comments Penicillins Unknown 08/09/2023 documented as of this encounter (statuses as of 12/20/2023) Medications Medication Sig Dispensed Refills Start Date [...] as of this encounter (statuses as of 12/20/2023) Active Problems Problem Noted Date Diagnosed Date Alcoholic cirrhosis 12/19/2023 Ascites due to alcoholic cirrhosis 12/19/2023 COPD, 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 132 [facility] [place] [address] Sari Holder MD [address] [place] [id number] Pending Results Name Type Priority Associated Diagnoses Date /Time CLOSTRIDIUM DIFFICILE, PCR Lab Routine Diarrhea, unspecified type 12/20/2023 1:28 PM EDT GASTROINTESTINAL PATHOGEN PANEL, STOOL Lab Routine Diarrhea, unspecified type 12/20/2023 1:28 PM EDT GASTROINTESTINAL PATHOGEN PANEL PCR Lab Routine Diarrhea, unspecified type 12/20/2023 1:28 PM EDT GASTROINTESTINAL PATHOGEN PANEL CULTURE Lab Routine Diarrhea, unspecified type 12/20/2023 1:28 PM EDT Health Maintenance Due Date Last Done Comments DISCUSS TOBACCO CESSATION (REFER TO SMARTSET #1703) 1972 Lipid Panel 1970 Pneumococcal Vaccine: Pediatrics [...] Vaccines (1 of 2) 2022 COVID-19 Vaccine (2022-2 4 season) 2023 Influenza Vaccine (FLU shot) [...] as of this encounter Visit Diagnoses Diagnosis Diarrhea, unspecified type documented in this encounter Additional Health Concerns Infection Onset Date Last Indicated Resolved Time C. difficile Rule-Out 12/20/2023 12/20/2023 Gastrointestinal Rule-Out 12/20/2023 12/20/2023 documented as of this encounter Care Teams Trucking Contractor Relationship Specialty Start Date End Date Fadi Cole III, MD 200 [facility] [place] [address] PCP - General Family Medicine 10/20/23 documented as of this encounter
--- OUTSIDE RECORDS SUMMARY | 2024-02-25 16:16 | External Medical Summary | Summary of Care ---
Author Name Unknown Organization [facility] Address [address] [place] [facility] [place] [place] [address] Phone [phone] Care Team Providers Care New Vehicle Sales Consultant Name Role Phone Kelsey PIERRE MD, Fadi Barker Primary Care Provider [phone] Reason for Visit * Reason Comments Follow Up 2 week follow up, pt states the swelling has gone down a lot; diarrhea has also improved; pt states he has not started midodrine or spironolactone yet. Encounter Details Date Type Department Care Team (Late st Contact Info) Description 01/02/2024 1:00 PM EDT Office Visit Family Practice [facility] [place] 200 [facility] [place] [address] Rina Neil PA-C 200 [facility] [place] [address] Ascites due to alcoholic cirrhosis (HCC)*; Anemia, unspecified type; Alcoholic cirrhosis of liver with ascites (HCC) [...] Sign Reading Time Taken Comments Blood Pressure 98/60 01/02/2024 1:06 PM EDT Pulse 84 01/02/2024 1:06 PM EDT Temperature 36.4 C (97.6 F) 01/02/2024 1:06 PM ED T Respiratory Rate - - Oxygen Saturation 97% 01/02/2024 1:06 PM EDT Inhaled Oxygen Concentration - - Weight 109.8 kg (242 lb 1.9 oz) 01/02/2024 1:06 PM EDT Height - - Body Mass Index 36.48 12/19/2023 12:00 PM EDT documented in this encounter Progress Notes * Rina Neil PA-C - 01/02/2024 1:16 PM EDT Images from the original note were not included. History of Present Illness Santiago Amador is a 53 year old male that presents for Follow Up (2 week follow up, pt states the swelling has gone down a lot; diarrhea has also improved; pt states he has not started midodrine or spironolactone yet. ) Patient is a 53 year old male who presents for a follow up. States he has not started his medication yet. Not feeling bad.he still feels heavy like everything weighs a ton. Denies sob, chest pain, palpitations, headaches, dizzy, nausea, vomiting, constipation. Less stooling. Urination normal Swelling in legs less. Physical Exam Vitals: 01/02/24 1306 Temp: 36.4 C (97.6 F) Pulse: 84 SpO2: 97% BP: 98/60 BP Readings from Last 3 Encounters: 01/02/24 98/60 12/19/23 112/70 11/16/23 110/70 Wt Readings from Last 3 Encounters: 01/02/24 109.8 kg (242 lb 1.9 oz) 12/19/23 111.6 kg (246 lb 0.6 oz) 11/16/23 107.4 kg (236 lb 12.8 oz) General: alert, no distress, well nourished, well developed, cooperative, and jaundice Head: Normocephalic, No masses, lesions, tenderness [...] soft, non-tender, obese, normal bowel sounds, no masses or organomegaly, no rebound or guarding, no CVA tenderness, and ascites Back: back symmetric, no curvature, no costovertebral angle tenderness, range of motion is normal Extremities: less than 2 second capillary refill, no joint deformities, effusion, or inflammation, no skin discoloration, no clubbing, no cyanosis, lower extremity edema I have reviewed the following results: CMP and CBC Assessment and Plan Ascites due to alcoholic cirrhosis (HCC) (Primary) - COMPREHENSIVE METABOLIC PANEL; Future; Expected date: 01/02/2024 Anemia, unspecified type - CBC; Future; Expected date: 01/02/2024 Alcoholic cirrhosis of liver with ascites (HCC) Follow Up: Return in about 4 weeks (around 01/30/2024) for Clinic Visit/ for 40. | For: Clinic Visit/for 40 Reinforced abstinence from alcohol and start medication. Wrap-Up Time: I spent a total of 30-39 minutes (exact time 35 mins) on the date of service in preparation, delivery, and documentation of the care provided to Santiago Amador excluding any time spent in the performance of separately billed services. documented in this encounter Plan of Treatment Upcoming Encounters Date Type Department Care Team (Late st Contact Info) Description 02/14/2024 11:40 AM EDT Office Visit Family Practice [facility] 200 [facility] [place] [address] Rina Neil PA-C 200 [facility] [place] [address] 04/05/2024 1:00 PM EDT Office Visit Hepatology, [facility] 132 [facility] [place] [address] Sari Holder MD 310 [facility] [place] [address] Pending Results Name Type Priority Associated Diagnoses Date /Time CBC Lab Routine Anemia, unspecified type 01/02/2024 1:41 PM EDT COMPREHENSIVE METABOLIC PANEL Lab Routine Ascites due to alcoholic cirrhosis (HCC) 01/02/2024 1:41 PM EDT Scheduled Orders Name Type Priority Associated Diagnoses Orde r Schedule CBC Lab Routine Anemia, unspecified type Expected: 01/02/2024 (Approximate), Expires: 01/01/2025 COMPREHENSIVE METABOLIC PANEL Lab Routine Ascites due to alcoholic cirrhosis (HCC) Expected: 01/02/2024 (Approximate), Expires: 01/01/2025 Health Maintenance Due Date Last Done Comments DISCUSS TOBACCO CESSATION (REFER TO SMARTSET #1628) 1972 Lipid Panel 1972 Pneumococcal Vaccine: Pediatrics [...] as of this encounter Visit Diagnoses Diagnosis Ascites due to alcoholic cirrhosis (HCC)- Primary Anemia, unspecified type Alcoholic cirrhosis of liver with ascites (HCC) Alcoholic cirrhosis of liver documented in this encounter Care Teams New Vehicle Sales Consultant Relationship Specialty Start Date End Date Fadi Cole III, MD 200 [place] [address] PCP - General Family Medicine 10/20/23 documented as of this encounter"
--- OUTSIDE RECORDS SUMMARY | 2024-02-25 16:16 | External Medical Summary | Summary of Care ---
Author Name Unknown Organization [facility] Address [address] [place] [address] Phone [phone] Care Team Providers Care Energy Attorney Name Role Phone Kelsey PIERRE MD, Fadi Barker Primary Care Provider [phone] Reason for Visit * Reason Comments Follow Up Patient is here for a 1 month follow-up Immunizations Patient would like t o receive Shingrix, Tdap, Hepatitis B, and Pneumococcal immunizations Encounter Details Date Type Department Care Team (Late st Contact Info) Description 12/19/2023 11:40 AM EDT Office Visit Family Practice [facility] 200 [place] [address] Rina Neil PA-C 200 [place] [address] Diarrhea, unspecified type*; Localized edema; Ascites due to alcoholic cirrhosis (HCC); Alcoholic cirrhosis of liver with ascites (HCC); COPD, mild (HCC) Allergies Active Allergy Reactions Criticality Noted Date Comments Penicillins Unknown 08/09/2023 documented as of this encounter (statuses as of 12/19/2023) Medications Medication Sig Dispensed Refills Start Date End Date Status Folic Acid 5 MG Oral Capsule Take 1 Capsule by mouth in the morning. 100 Capsule 3 11/16/2023 Active Spironolactone 50 MG Oral Tablet (Aldactone)Indica tions:Localized edema Take 1 Tablet by mouth in the morning. 30 Tablet 11 12/19/2023 Active Fluticasone Propionate HFA 110 MCG/ACT Inhalation Aerosol Inhale 2 Puffs by mouth in the morning and 2 Puffs before bedtime. 11 g 5 12/19/2023 Active Anoro Ellipta 62.5-25 MCG/ACT Inhalation Aerosol Powder Breath Activated (umeclidinium-cristian anterol) Inhale 1 Puff by mouth in the morning. 30 Each 11 11/16/2023 12/19/2023 Discontinued (Medication List Clean Up) documented as of this encounter (statuses as of 12/19/2023) Active Problems Problem Noted Date Diagnosed Date Alcoholic cirrhosis 12/19/2023 Ascites due to alcoholic cirrhosis 12/19/2023 COPD, 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 documented as of this encounter (statuses as of 12/19/2023) Social History Tobacco Use Types Packs/Day Years [...] Sign Reading Time Taken Comments Blood Pressure 112/70 12/19/2023 12:00 PM EDT Pulse 89 12/19/2023 12:00 PM EDT Temperature 36.1 C (97 F) 12/19/2023 12: 00 PM EDT Respiratory Rate - - Oxygen Saturation 96% 12/19/2023 12: 00 PM EDT Inhaled Oxygen Concentration - - Weight 111.6 kg (246 lb 0.6 oz) 024 12:00 PM EDT Height 173.5 cm (5' 8.31") 12/19/2023 1 2:00 PM EDT Body Mass Index 37.07 12/19/2023 12:00 PM EDT documented in this encounter Progress Notes * Rina Neil PA-C - 12/19/2023 12:14 PM EDT Images from the original note were not included. History of Present Illness Santiago Amador is a 53 year old male that presents for Follow Up (Patient is here for a 1 month follow-up) and Immunizations (Patient would like to receive Shingrix, Tdap, Hepatitis B, and Pneumococcal immunizations ) Patient is a 53 yearold male who presents for a follow up. He is concerned about swelling in his legs. Also swelling in his lower extremities. Diarrhea for months; 6 bms per day, stools don't have form. Denies sob, chest pain , headaches, dizzy Appetite good Sleep good Urination good Physical Exam Vitals: 12/19/23 1200 Temp: 36.1 C (97 F) Pulse: 89 SpO2: 96% BP: 112/70 BMI: 37.07 BP Readings from Last 3 Encounters: 12/19/23 112/70 11/16/23 110/70 10/31/23 108/72 Wt Readings from Last 3 Encounters: 12/19/23 111.6 kg (246 lb 0.6 oz) 11/16/23 107.4 kg (236 lb 12.8 oz) 11/14/23 104.4 kg (230 lb 2.6 oz) General: alert, no distress, well nourished, well developed, cooperative, and jaundiced Head: Normocephalic, No masses, lesions, tenderness or abnormalities Eye Exam: PERRLA, extraocular movements intact, conjunctiva are pink and non- injected, sclera clear Neck: supple, no adenopathy, no bruits, thyroid normal size, non-tender, without nodularity Heart: regular rate & rhythm, no murmur, and no gallops Lungs: chest symmetric with normal AP diameter, no chest deformities noted, normal respiratory rateand rhythm, no chest wall tenderness, diaphragmatic excursion normal, lungs clear to auscultation Abdomen: abdomen soft, non-tender, normal bowel sounds, no masses or organomegaly, no rebound or guarding, no CVA tenderness, no bladder distention identified, and ascites Extremities: less than 2 second capillary refill, no joint deformities, effusion, or inflammation, no skin discoloration, no clubbing, no cyanosis, moderate bilateral lower extremity edema. Neuro Exam: alert & oriented x 3 with fluent speech, no focal motor/sensory deficits I have reviewed the following results: CMP and CBC Assessment and Plan Diarrhea, unspecified type (Primary) - COMPREHENSIVE METABOLIC PANEL; Future; Expected date: 12/19/2023 - CBC; Future; Expected date: 12/19/2023 - CLOSTRIDIUM DIFFICILE, PCR; Future; Expected date: 12/19/2023 - GASTROINTESTINAL PATHOGEN PANEL, STOOL; Future; Expected date: 12/19/2023 Localized edema - Spironolactone 50 MG Oral Tablet (Aldactone); Take 1 Tablet by mouth in the morning. Ascites due to alcoholic cirrhosis (HCC) Alcoholic cirrhosis of liver with ascites (HCC) COPD, mild (HCC) Other orders - Fluticasone Propionate HFA 110 MCG/ACT Inhalation Aerosol; Inhale 2 Puffs by mouth in the morningand 2 Puffs before bedtime. Follow Up: Return in about 2 weeks (around 01/02/2024) for Clinic Visit for 40 . | For: Clinic Visit for 40 Continue current medications. Wrap-Up Time: I spent a total of 30-39 minutes (exact time 39 mins) on the date of service in preparation, delivery, and documentation of the care provided to Santiago Amador excluding any time spent in the performance of separately billed services. documented in this encounter Nursing Notes * Gayatri Villa MED ASSIST - 12/19/2023 12:00 PM EDT Chief Complaint Patient presents with Follow Up Patient is here for a 1 month follow-up Immunizations Patient would like to receive Shingrix, Tdap, Hepatitis B, and Pneumococcal immunizations documented in this encounter Plan of Treatment Upcoming Encounters Date Type Department Care Team (Late st Contact Info) Description 01/02/2024 1:00 PM EDT Office Visit Family Practice [facility] 200 [facility] [place] [address] Rina Neil PA-C 200 [facility] [place] [address] 04/05/2024 1:00 PM EDT Office Visit Hepatology, [facility] 132 [facility] [place] [address] Sari Holder MD [address] [place] [address] Scheduled Orders Name Type Priority Associated Diagnoses Orde r Schedule CLOSTRIDIUM DIFFICILE, PCR Lab Routine Diarrhea, unspecified type Expected: 12/19/2023 (Approximate), Expires: 12/18/2024 GASTROINTESTINAL PATHOGEN PANEL, STOOL Lab Routine Diarrhea, unspecified type Expected: 12/19/2023 (Approximate), Expires: 12/18/2024 Health Maintenance Due Date Last Done Comments DISCUSS TOBACCO CESSATION (REFER TO SMARTSET #[id number]) 1972 Lipid Panel 1972 Pneumococcal Vaccine: Pediatrics [...] Not on filedocumented as of this encounter Results * (ABNORMAL) CBC (12/19/2023 1:03 PM EDT) WBC 10.40 4.00 - 10.80 K/uL 12/19/2023 1:26 PM EDT [facility] [place] 56-02 RBC 1.94 4.50 - 5.25 M/uL 12/19/2023 1:26 PM EDT [facility] [place] 56-02 HGB 7.3(L) 14.0 - 16.8 g/dL 12/19/2023 1:26 PM EDT [facility] 56-02 HCT 22.8(L) 40.0 - 48.4 % 12/19/2023 1:26 PM EDT [facility] MCV 117.5 82.0 - 99.5 fL 12/19/2023 1:26 PM EDT [place] [address] MCH 37.6 27.0 - 34.0 pg 12/19/2023 1:26 PM EDT [place] [address] MCHC 32.0 32.0 - 36.0 g/dL 12/19/2023 1:26 PM EDT [place] [address] RDW 14.6 11.5 - 15.5 % 12/19/2023 1:26 PM EDT [place] [address] PLT 197 140 - 400 K/uL 12/19/2023 1:26 PM EDT [place] [address] MPV 10.4 6.6 - 11.1 fL 12/19/2023 1:26 PM EDT [facility] Blood Venous blood specimen / Unknown Venipuncture / Unknown 12/19/2023 1:03 PM EDT 12/19/2023 1:03 PM EDT October Jolynn NEW LAB BLOOD ORDERABLES [facility] [address] [place], [place] [id number] * (ABNORMAL) COMPREHENSIVE METABOLIC PANEL (12/19/2023 1:03 PM EDT) BUN 30(H) 6 - 20 mg/dL 12/19/2023 2:32 PM EDT [facility] Creatinine 2.1(H) 0.6 - 1.2 mg/dL 12/19/2023 2:32 PM EDT [facility] Estimated Glomerular Filtration Rate 39(L) >=60 mL/min 12/19/2023 2:32 PM EDT [facility] Comment:eGFR is calculated b ased on the CKD-EPI 2020 equation Sodium 133(L) 135 - 146 mmol/L 12/19/2023 2:32 PM EDT [facility] Potassium 3.3(L) 3.5 - 5.1 mmol/L 12/19/2023 2:32 PM EDT [facility] 56 Chloride 94(L) 98 - 107 mmol/L 12/19/2023 2:[address]T [address] CO2 25 22 - 32 mmol/L 12/19/2023 2:32 PM EDT [address] Anion Gap 14 7 - 15 mmol/L 12/19/2023 2:32 PM [address]T [address] Glucose 97 70 - 120 mg/dL 12/19/2023 2:32 PM EDT [address] Albumin 2.7(L) 3.8 - 5.0 g/dL 12/19/2023 2:[address] AST 42 10 - 50 U/L 12/19/2023 2:32 PM EDT [facility] 56 Alkaline Phosphatase 65 35 - 130 U/L 12/19/2023 2:32 PM EDT [address] Bilirubin, Total 2.1(H) <=1.2 mg/dL 12/19/2023 2:32 PM EDT [address] Calcium 8.6 8.4 - 10.2 mg/dL 12/19/2023 2:32 PM EDT [address] Protein 7.2 6.0 - 8.3 g/dL 12/19/2023 2:32 PM EDT [facility] 56 ALT 15 10 - 50 U/L 12/19/2023 2:32 PM EDT [facility] 56 Blood Venous blood specimen / Unknown Venipuncture / Unknown 12/19/2023 1:03 PM EDT 12/19/2023 1:03 PM EDT October Raul Neil PA-C LAB BLOOD ORDERABLES [facility] [address] [place] [address] documented in this encounter Visit Diagnoses Diagnosis Diarrhea, unspecified type- Primary Localized edema Edema Ascites due to alcoholic cirrhosis (HCC) Alcoholic cirrhosis of liver with ascites (HCC) Alcoholic cirrhosis of liver COPD, mild (HCC) Chronic airway obstruction, not elsewhere classified documented in this encounter Care Teams Energy Attorney Relationship Specialty Start Date End Date Fadi Cole III, MD 200 [place] [address] PCP - General Family Medicine 10/20/23 documented as of this encounter
--- OUTSIDE RECORDS SUMMARY | 2024-02-25 16:16 | External Medical Summary | Summary of Care ---
Author Name Unknown Organization [facility] Address [address] [facility] [place] [address] Phone [phone] Care Team Providers Care Crutching Contractor Name Role Phone Kelsey PIERRE MD, John E Primary Care Provider [phone] Reason for Visit * Reason Comments Follow Up Encounter Details Date Type Department Care Team (Late st Contact Info) Description 11/16/2023 11:40 AM EDT Office Visit Family Practice [place] 200 [facility] [place] [address] Fadi Cole III, MD [address] [facility] [place] [address] Edema, unspecified type*; COPD, mild (HCC); Alcoholic cirrhosis of liver with ascites (HCC) Allergies Active Allergy Reactions Criticality Noted Date Comments Penicillins Unknown 08/09/2023 documented as of this encounter (statuses as of 11/19/2023) Medications Medication Sig Dispensed Refills Start Date End Date Status Folic Acid 5 MG Oral Capsule Take 1 Capsule by mouth in the morning. 100 Capsule 3 11/16/2023 Active Anoro Ellipta 62.5-25 MCG/ACT Inhalation Aerosol Powder Breath Activated (umeclidinium-vilant bill) Inhale 1 Puff by mouth in the morning. 30 Each 11 11/16/2023 Active documented as of this encounter (statuses as of 11/19/2023) Active Problems No known active problems documented as of this encounter (statuses as of 11/19/2023) Social History Tobacco Use Types Packs/Day Years [...] Sign Reading Time Taken Comments Blood Pressure 110/70 11/16/2023 11:29 AM EDT Pulse 92 11/16/2023 11:29 AM EDT Temperature 36.9 C (98.5 F) 11/16/2023 1 1:29 AM EDT Respiratory Rate 16 11/16/2023 11:2 9 AM EDT Oxygen Saturation 93% 11/16/2023 11: 29 AM EDT Inhaled Oxygen Concentration - - Weight 107.4 kg (236 lb 12.8 oz) 2023 11:29 AM EDT Height - - Body Mass Index 35.68 11/14/2023 1:13 PM EDT documented in this encounter Progress Notes * Fadi Cole III, MD - 11/16/2023 12:12 PM EDT Santiago Amador is a 53 year old male. Chief Complaint Patient presents with Follow Up HPI: Follow-up hepatic cirrhosis alcohol related ascites status post PFTs preliminary reviewed consistent with at least mild COPD does have some dyspnea on exertion folate level was low iron saturation high but HFE testing negative hepatitis-C testing negative does have some swelling of his ankles denies chest pains PMH: There is no problem list on file for this patient. Current Outpatient Medications Medication Sig Dispense Refill Folic Acid 5 MG Oral Capsule Take 1 Capsule by mouth in the morning. 100 Capsule 3 Anoro Ellipta 62.5-25 MCG/ACT Inhalation Aerosol Powder Breath Activated (umeclidinium-vilanterol) Inhale 1 Puff by mouth in the morning. 30 Each 11 No current facility-administered medications for this visit. Review of patient's allergies indicates: Allergen Reactions Penicillins Unknown No past medical history on file. No past surgical history on file. Objective: The patient is a 53 year old male BP 110/70 | Pulse 92 | Temp 36.9 C (98.5 F) (Tympanic) | Resp 16 | Wt 107.4 kg (236 lb 12.8 oz)| SpO2 93% | BMI 35.68 kg/m | BSA 2.28 m General: alert and no distress Eye Exam: PERRLA, extraocular movements intact, conjunctiva are pink and non- injected, sclera clear Oropharynx: no exudate, no erythema, lips, buccal mucosa, and tongue normal, and mucous membranes are moist Lungs: Clear to auscultation Cor: Regular rate without murmur gallop or rub Abdomen somewhat distended no organomegaly appreciated possible fluid wave Extremities: Trace to +1 edema ASSESSMENT: R60.9 Edema, unspecified type (primary encounter diagnosis) J44.9 COPD, mild (HCC) K70.31 Alcoholic cirrhosis of liver with ascites (HCC) PLAN: Begin folate 5 mg daily Anoro Ellipta 1 puff daily has MRI pending Follow up in 1 month(s). Fadi Cole III, MD documented in this encounter Nursing Notes * Michaela Balbuena LPN - 11/16/2023 11:22 AM EDT Santiago Amador presents for 2 week recheck. Medications & HM reviewed. documented in this encounter Plan of Treatment Upcoming Encounters Date Type Department Care Team (Late st Contact Info) Description 11/20/2023 3:15 PM EDT Imaging Radiology [facility] [address] [place] [address] 12/18/2023 11:40 AM EDT Office Visit Family Practice [facility] [address] [facility] [place] [address] Juana Elder PA-C [address] [facility] [place] [address] 04/05/2024 1:00 PM EDT Office Visit Hepatology, [facility] 132 [facility] [place] [address] Sari Holder MD [address] [place] [address] Health Maintenance Due Date Last Done Comments [...] as of this encounter Visit Diagnoses Diagnosis Edema, unspecified type- Primary COPD, mild (HCC) Chronic airway obstruction, not elsewhere classified Alcoholic cirrhosis of liver with ascites (HCC) Alcoholic cirrhosis of liver documented in this encounter Care Teams Crutching Contractor Relationship Specialty Start Date End Date Fadi Cole III, MD [address] [facility] [place] [place] [address] PCP - General Family Medicine 10/20/23 documented as of this encounter"
--- OUTSIDE RECORDS SUMMARY | 2024-02-25 16:16 | External Medical Summary ---
Author Name Unknown Address Unknown Organization K09:[facility] [address] [place] [address] Laboratory Report Ordering Provider Test Date Status 01/02/2024 13:41:22 Final Observation Date Value Abnormality Reference (Units ) Status BUN 01/02/2024 13:41:22 30 Above high normal 6-20 (mg/dL) Final Creatinine 01/02/2024 13:41:22 2.8 Above high normal 0.6-1.2 (mg/dL) Final Glomerular filtration rate/1.73 sq M.predicted [Volume Rate/Area] in Serum, Plasma or Blood by Creatinine-based formula (CKD-EPI) 01/02/2024 13:41:22 26 Below low normal >=60 (mL/min) Final eGFR is calculated based on the CKD-EPI 2020 equation Sodium 01/02/2024 13:41:22 136 135-146 (m mol/L) Final Potassium 01/02/2024 13:41:22 3.9 3.5-5.1 (m mol/L) Final Cl 01/02/2024 13:41:22 97 Below low normal 98- 107 (mmol/L) Final CO2 01/02/2024 13:41:22 24 22-32 (mmo l/L) Final Anion gap 01/02/2024 13:41:22 15 7-15 (mmol /L) Final Glucose 01/02/2024 13:41:22 90 70-120 (mg /dL) Final Albumin 01/02/2024 13:41:22 2.7 Below low normal 3.8 -5.0 (g/dL) Final AST (Aspartate aminotransferase) 01/02/2024 13:41:22 41 10-50 (U/L) Fin al Alk Phos 01/02/2024 13:41:22 77 35-130 (U/ L) Final Bilirubin, Total 01/02/2024 13:41:22 2.6 Above high no rmal <=1.2 (mg/dL) Final Calcium 01/02/2024 13:41:22 8.6 8.4-10.2 ( mg/dL) Final Protein 01/02/2024 13:41:22 7.1 6.0-8.3 (g /dL) Final ALT (Alanine aminotransferase) 01/02/2024 13:41:22 13 10-50 (U/L) Yohan thomas Performing Location [facility] [address] [place] [address]
--- OUTSIDE RECORDS SUMMARY | 2024-02-25 16:16 | External Medical Summary ---
Author Name Unknown Address Unknown Organization K01:[facility] - [address] [place] [address] Laboratory Report Ordering Provider Test Date Status 12/20/2023 13:28:09 Final Observation Date Value Abnormality Reference (Units) Status Source 12/20/2023 13:28:09 Semi-liquid Final Clostridioides difficile toxin and [id number] strain DNA panel - Stool by TALHA with probe detection 12/20/2023 13:28:09 Negative. No C. difficile toxin B gene DNA detected by PCR (Amplified Probe). Negative Final Performing Location [facility] - [address] [place] [address]
--- OUTSIDE RECORDS SUMMARY | 2024-02-25 16:16 | External Medical Summary ---
Author Name Unknown Address Unknown Organization K09:[facility] [place] [address] Laboratory Report Ordering Provider Test Date Status 01/02/2024 13:41:22 Final Observation Date Value Abnormality Reference (Units ) Status WBC, Total 01/02/2024 13:41:22 11.40 Above high normal 4 .00-10.80 (K/uL) Final RBC 01/02/2024 13:41:22 1.99 4.50-5.25 (M/uL) Final Hemoglobin 01/02/2024 13:41:22 7.1 Below low normal 14 .0-16.8 (g/dL) Final HCT 01/02/2024 13:41:22 22.2 Below low normal 40. 0-48.4 (%) Final MCV 01/02/2024 13:41:22 111.6 82.0-99.5 (fL) Final MCH 01/02/2024 13:41:22 35.7 27.0-34.0 (pg) Final MCHC 01/02/2024 13:41:22 32.0 32.0-36.0 (g/dL) Final RDW 01/02/2024 13:41:22 15.6 11.5-15.5 (%) Final Platelets 01/02/2024 13:41:22 192 140-400 (K /uL) Final MPV 01/02/2024 13:41:22 10.6 6.6-11.1 ( fL) Final Performing Location [facility] [place] [address]
--- OUTSIDE RECORDS SUMMARY | 2024-02-25 16:16 | External Medical Summary | Summary of Care ---
Author Name Unknown Organization [facility] Address [address] [place] [address] Phone [phone] Care Team Providers Care Human Resources Associate Name Role Phone Kelsey PIERRE MD, Fadi Barker Primary Care Provider [phone] Encounter Details Date Type Department Care Team (Late st Contact Info) Description 12/25/2023 Orders Only PATIENT PORTAL DO NOT DELETE THIS DEPT USED BY [place] [id number] Allergies Active Allergy Reactions Criticality Noted Date Comments Penicillins Unknown 08/09/2023 documented as of this encounter (statuses as of 12/25/2023) Medications Medication Sig Dispensed Refills Start Date [...] as of this encounter (statuses as of 12/25/2023) Active Problems Problem Noted Date Diagnosed Date Alcoholic cirrhosis 12/19/2023 Ascites due to alcoholic cirrhosis 12/19/2023 COPD, 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 documented as of this encounter (statuses as of 12/25/2023) Social History Tobacco Use Types Packs/Day Years [...] 1:00 PM EDT Office Visit Family Practice [facility] [address] [place] [address] Rina Neil PA-C [address] [place] [address] 04/05/2024 1:00 PM EDT Office Visit Hepatology, [facility] [address] [place] [address] Sari Holder MD [address] [place] [address] Health Maintenance Due Date Last Done Comments DISCUSS TOBACCO CESSATION (REFER TO SMARTSET #5882) 1972 Lipid Panel 1970 Pneumococcal Vaccine: Pediatrics [...] filedocumented as of this encounter Care Teams Human Resources Associate Relationship Specialty Start Date End Date Fadi Cole III, MD 200 [facility] [place] [address] PCP - General Family Medicine 10/20/23 documented as of this encounter
--- OUTSIDE RECORDS SUMMARY | 2024-02-25 16:16 | External Medical Summary ---
Author Name Unknown Address Unknown Organization K01:[facility] - [address] [place] [address] Laboratory Report Ordering Provider Test Date Status 12/20/2023 13:28:25 Final Observation Date Value Abnormality Reference (Units) Status Bacteria identified in Specimen by Culture 12/20/2023 13:28:25 No Aeromonas species or Plesiomonas species isolated. Final Test: Gastrointestinal Patho gen Panel Culture
Specimen Source: Stool
Specimen Type: Stool
Specimen Date: 12/20/2023 1328
Result Date: 12/23/2023 1041
Result Status: Final result
Resulting Lab: [facility]
[address]
[place] [address]

CULTURE

No Aeromonas species or Plesiomonas species isolated.

null Performing Location [facility] - [address] [place] [address]
--- OUTSIDE RECORDS SUMMARY | 2024-02-25 16:16 | External Medical Summary | Summary of Care ---
Author Name Unknown Organization [facility] Address [address] [facility] [place] [address] Phone [phone] Care Team Providers Care Special Education Teachers Name Role Phone Kelsey PIERRE MD, John E Primary Care Provider [phone] Reason for Visit * Reason Onset Date Comments Test Results 12/22/2023 Encounter Details Date Type Department Care Team (Late st Contact Info) Description 12/22/2023 Telephone Family Practice [facility] [place] [address] [facility] [place] [address] Fadi [facility] III, MD [facility] [address] Test Results Allergies Active Allergy Reactions Criticality [...] encounter Miscellaneous Notes * Telephone Encounter - Alba Mathews LPN - 12/22/2023 9:12 AM EDT Letter sent. * Telephone Encounter - Alba Mathews LPN - 12/22/2023 9:12 AM EDT ----- Message from Rina Neil sent at 12/21/2023 9:01 PM EDT ----- Please send a lab letter stating results normal. documented in this encounter Plan of Treatment Upcoming Encounters Date Type Department Care Team (Late st Contact Info) Description 01/02/2024 1:00 PM EDT Office Visit Family Practice [facility] [address] [place] [address] Rina Neil PA-C 200 [place] [address] 04/05/2024 1:00 PM EDT Office Visit Hepatology, [facility] [address] [facility] [place] [address] Sari Holder MD [address] [place] [address] Health Maintenance Due Date Last Done Comments DISCUSS TOBACCO CESSATION (REFER TO SMARTSET #[id number]) 1970 Lipid Panel 1970 Pneumococcal Vaccine: Pediatrics [...] filedocumented as of this encounter Care Teams Special Education Teachers Relationship Specialty Start Date End Date Fadi Cole III, MD [address] [place] [address] PCP - General Family Medicine 10/20/23 documented as of this encounter
--- OUTSIDE RECORDS SUMMARY | 2024-02-25 16:16 | External Medical Summary | Summary of Care ---
Author Name Unknown Organization [facility] Address [address] [place] [address] Phone [phone] Care Team Providers Care Coverage Specialist Name Role Phone Kelsey PIERRE MD, aFdi Barker Primary Care Provider [phone] Reason for Visit * Reason Comments Outpatient Testing Encounter Details Date Type Department Care Team (Late st Contact Info) Description 12/19/2023 1:00 PM EDT Laboratory Laboratory [facility] [place] [address] [place] [phone] [place], [address] [place] [address] Diarrhea, unspecified type Allergies Active Allergy Reactions [...] 1:00 PM EDT Office Visit Family Practice [facility] 200 [facility] [place] [address] Rina Neil PA-C [address] [place] [address] 04/05/2024 1:00 PM EDT Office Visit Hepatology, [facility] 132 [facility] [place] [address] Sari Holder MD [address] [place] [phone] Pending Results Name Type Priority Associated Diagnoses Date /Time COMPREHENSIVE METABOLIC PANEL Lab Routine Diarrhea, unspecified type 12/19/2023 1:03 PM EDT CBC Lab Routine Diarrhea, unspecified type 12/19/2023 1:03 PM EDT Health Maintenance Due Date Last Done Comments DISCUSS TOBACCO CESSATION (Deonna HENSON SMARTSET #6120) 1970 Lipid Panel 1970 Pneumococcal Vaccine: Pediat rics [...] of 2) 2022 COVID-19 Vaccine (1 - 3-2 4 season) 2023 Influenza Vaccine (FLU shot) (Season Ended) 2024 O2 ASSESSMENT COMPLETED IN P AST YEAR FOR COPD 12/18/2024 12/19/2023 Diabetes Screening 10/16/2026 10/17/2023 GARDASIL-HPV IMMUNIZATION SERIES Aged Out No longer eligible based on patient's age to complete this topic MENINGOCOCCAL (MENACTRA/MENVEO) Aged Out No longer eligible based on patient's age to complete this topic documented as of this encounter Medical Devices Not on filedocumented as of this encounter Visit Diagnoses Diagnosis Diarrhea, unspecified type documented in this encounter Care Teams Coverage Specialist Relationship Specialty Start Date End Date Fadi Cole III, MD 200 [place] [address] PCP - General Family Medicine 10/20/23 documented as of this encounter
--- OUTSIDE RECORDS SUMMARY | 2024-02-25 16:16 | External Medical Summary | Summary of Care ---
Author Name Unknown Organization [facility] Address [address] [place] [address] Phone [phone] Care Team Providers Care Vba Developer Name Role Phone Kelsey PIERRE MD, Fadi Barker Primary Care Provider [phone] Reason for Visit * Reason Comments Outpatient Testing Encounter Details Date Type Department Care Team (Late st Contact Info) Description 12/19/2023 1:00 PM EDT Laboratory Laboratory [facility] [place] [address] [place] [phone] [place], [address] [place] [address] Diarrhea, unspecified type Allergies Active Allergy Reactions [...] 1:00 PM EDT Office Visit Family Practice [facility] 200 [facility] [place] [address] Rina Neil PA-C [address] [place] [address] 04/05/2024 1:00 PM EDT Office Visit Hepatology, [facility] 132 [facility] [place] [address] Sari Holder MD [address] [place] [phone] Pending Results Name Type Priority Associated Diagnoses Date /Time COMPREHENSIVE METABOLIC PANEL Lab Routine Diarrhea, unspecified type 12/19/2023 1:03 PM EDT CBC Lab Routine Diarrhea, unspecified type 12/19/2023 1:03 PM EDT Health Maintenance Due Date Last Done Comments DISCUSS TOBACCO CESSATION ([place]onna HENSON SMARTSET #[id number]) 1972 Lipid Panel 1972 Pneumococcal Vaccine: Pediat [...] type documented in this encounter Care Teams Vba Developer Relationship Specialty Start Date End Date Fadi Cole III, MD 200 [place] [address] PCP - General Family Medicine 10/20/23 documented as of this encounter
--- OUTSIDE RECORDS SUMMARY | 2024-02-25 16:16 | External Medical Summary ---
Author Name Unknown Address Unknown Organization K09:[facility] [address] [place] [address] Laboratory Report Ordering Provider Test Date Status NED JOHNSONDeonna 12/26/2023 12:17:04 Final Observation Date Value Abnormality Reference (Units ) Status BUN 12/26/2023 12:17:04 29 Above high normal 6-20 (mg/dL) Final Creatinine 12/26/2023 12:17:04 2.0 Above high normal 0.6-1.2 (mg/dL) Final Glomerular filtration rate/1.73 sq M.predicted [Volume Rate/Area] in Serum, Plasma or Blood by Creatinine-based formula (CKD-EPI) 12/26/2023 12:17:04 40 Below low normal >=60 (mL/min) Final eGFR is calculated based on the CKD-EPI 2020 equation Sodium 12/26/2023 12:17:04 137 135-146 (m mol/L) Final Potassium 12/26/2023 12:17:04 3.6 3.5-5.1 (m mol/L) Final Cl 12/26/2023 12:17:04 99 98-107 (mm ol/L) Final CO2 12/26/2023 12:17:04 27 22-32 (mmo l/L) Final Anion gap 12/26/2023 12:17:04 11 7-15 (mmol /L) Final Glucose 12/26/2023 12:17:04 107 70-120 (mg /dL) Final Albumin 12/26/2023 12:17:04 2.5 Below low normal 3.8 -5.0 (g/dL) Final AST (Aspartate aminotransferase) 12/26/2023 12:17:04 37 10-50 (U/L) Fin al Alk Phos 12/26/2023 12:17:04 68 35-130 (U/ L) Final Bilirubin, Total 12/26/2023 12:17:04 2.7 Above high no rmal <=1.2 (mg/dL) Final Calcium 12/26/2023 12:17:04 8.4 8.4-10.2 ( mg/dL) Final Protein 12/26/2023 12:17:04 6.7 6.0-8.3 (g /dL) Final ALT (Alanine aminotransferase) 12/26/2023 12:17:04 12 10-50 (U/L) Yohan thomas Performing Location [facility] [address] [place] [address]
--- OUTSIDE RECORDS SUMMARY | 2024-02-25 16:17 | External Medical Summary ---
Author Name Unknown Address Unknown Organization K01:[facility] - [address] [place] [address] Laboratory Report Ordering Provider Test Date Status TALAT MONTENEGRO III 10/17/2023 14:22:40 Final Observation Date Value Abnormality Reference (Units ) Status Erythrocyte sedimentation rate by Photometric method 10/17/2023 14:22:40 20 Above high normal <20 (mm/hour) Final Performing Location [facility] - [address] [place] [address]
--- OUTSIDE RECORDS SUMMARY | 2024-02-25 16:17 | External Medical Summary | Summary of Care ---
Author Name Unknown Organization [facility] Address [address] [place] [address] Phone [phone] Care Team Providers Care Assurance Senior Manager Insurance Name Role Phone Unavailable Primary Care Provider Unavailabl e Reason for Referral * Precert (Within 10 days (routine)) - Authorized Specialty Diagnoses / Procedures Referred By Rick rodriguez Referred To Contact Radiology Diagnoses Loss of weight LLQ pain Procedures CT ABD/PELVIS W IV AND W ORAL CONTRAST Fadi Cole III, MD 200 [facility] [place] [address] Referral ID Status Reason Start Date Expiration Date V isits Requested Visits Authorized [id number] Authorized Precert 10/17/2023 12/16/2023 999 999 Reason for Visit * Reason Comments NEW PATIENT Encounter Details Date Type Department Care Team (Late st Contact Info) Description 10/17/2023 9:40 AM EDT Office Visit Family Practice [facility] [place] 200 [facility] [place] [place] [address] Fadi Cole III, MD 200 [facility] [place] [address] Routine medical exam*; Loss of weight; LLQ pain; Dysphagia, unspecified type; Acquired renal cyst of right kidney Allergies No known active allergiesdocumented as of this encounter (statuses as of 10/23/2023) Medications No known medicationsdocumented as of this encounter (statuses as of 10/23/2023) Active Problems No known active problems documented as of this encounter (statuses as of 10/23/2023) Social History Tobacco Use Types Packs/Day Years Used Date Smoking Tobacco: Every Day Cigarettes 1 33.2 Started: 1990 Smokeless Tobacco: Never Alcohol Use [...] Sign Reading Time Taken Comments Blood Pressure 120/84 10/17/2023 9:56 AM EDT Pulse 86 10/17/2023 9:56 AM EDT Temperature 36.7 C (98.1 F) 10/17/2023 9:56 AM ED T Respiratory Rate 16 10/17/2023 9:56 AM EDT Oxygen Saturation 98% 10/17/2023 9:56 AM EDT Inhaled Oxygen Concentration - - Weight 104.6 kg (230 lb 9.6 oz) 10/17/2023 9:56 AM EDT Height 172.7 cm (5' 8") 10/17/2023 9:56 AM EDT Body Mass Index 35.06 10/17/2023 9:56 AM EDT documented in this encounter Progress Notes * Fadi Cole III, MD - 10/17/2023 10:55 AM EDT Subjective: Santiago Amador is a 53 year old male. Chief Complaint Patient presents with NEW PATIENT HPI: New patient physical examination concerns today are weight loss lost about 30 some lb over thelast 3-4 months was hospitalized for multifocal pneumonia back in July found to have a right kidney cyst follow-up CT scans were recommended has lower abdominal pain it seems to be titer down there has not noticed any bleeding urine or bowels still smoking about a half pack per alcohol 2 Monday and Monday nights not through the rest of the week has not noticed any bleeding urine or bowels noactual dysuria 1-2 bowel movements her previous had been much looser now more firm hospital discharge notes reviewed has diverticulosis can eat a lot feels full like things are catching in his throat PMH: There is no problem list on file for this patient. No current outpatient medications on file. No current facility-administered medications for this visit. Review of patient's allergies indicates: No Known Allergies No past medical history on file. No past surgical history on file. Objective: The patient is a 53 year old male BP 120/84 | Pulse 86 | Temp 36.7 C (98.1 F) (Tympanic) | Resp 16 | Ht 1.727 m (5' 8") | Wt 104.6 kg (230 lb 9.6 oz) | SpO2 98% | BMI 35.06 kg/m | BSA 2.24 m General: alert Eye Exam: PERRLA, extraocular movements intact, conjunctiva are pink and non- injected, sclera clear Ears: External ears normal, Canals clear, TM's Normal Oropharynx: no exudate, no erythema, lips, buccal mucosa, and tongue normal, and mucous membranes are moist Neck: supple, no adenopathy, no bruits, thyroid normal size, non-tender, without nodularity Heart: regular rate & rhythm, no murmur, and no gallops Lungs: lungs clear to auscultation Abdomen: normal bowel sounds, no masses or organomegaly, and lower abdominal tenderness most prominent on the left guarding and rebound tenderness on the left Extremities: no clubbing, no cyanosis, trace edema bilaterally ASSESSMENT: Z00.00 Routine medical exam (primary encounter diagnosis) R63.4 Loss of weight R10.32 LLQ pain R13.10 Dysphagia, unspecified type N28.1 Acquired renal cyst of right kidney PLAN: Get CT of the abdomen pelvis lab work video swallow Follow up in 2 week(s). Fadi Cole III, MD documented in this encounter Nursing Notes * Michaela Balbuena LPN - 10/17/2023 9:50 AM EDT Santiago Amador presents as new patient to get established. Medications & HM reviewed/updated. C/O losing muscle mass, no appetite has to force himself to eat, fatigue has no energy. Was in hospital in July for walking pneumonia. States he has lost over 30 pounds since July. Wanting xray to make sure pneumonia is cleared up. Hospital seen a mass in his back on xray he is concerned with documented in this encounter Plan of Treatment Upcoming Encounters Date Type Department Care Team (Late st Contact Info) Description 10/31/2023 10:20 AM EDT Office Visit [facility] Practice [facility] 200 [facility] [place] [address] Fadi Cole III, MD 200 [facility] [place] [address] 11/20/2023 3:15 PM EDT Imaging Radiology [facility] 1st [facility] 132 [facility] [place] [address] Scheduled Orders Name Type Priority Associated Diagnoses Orde r Schedule URINALYSIS, REFLEX TO MICROSCOPIC Lab Routine Loss of weight LLQ pain Dysphagia, unspecified type Expected: 10/17/2023, Expires: 10/16/2024 FLUORO SWALLOWING FUNCTION W VIDEO CINE Medical Imaging Routine Loss of weight LLQ pain Dysphagia, unspecified type Ordered: 10/17/2023 Health Maintenance Due Date Last Done Comments Lipid Panel 1972 Pneumococcal Vaccine: Pediat rics (0 to 5 Years) and At-Risk Patients (6 to 64 Years) (1 of 2 - PCV) 1978 Depression Screening 1984 HIV Screening 1987 Hepatitis C Screening 1990 DTaP,Tdap,and Td Vaccines (1 - Tdap) 1991 Hepatitis B (1 of 3 - 19+ 3- dose series) 1991 Cologuard 2017 Colonoscopy 2017 Colorectal Cancer Screening 2017 Fecal Occult Blood Test 2017 Sigmoidoscopy 2017 LUNG CANCER SCREENING - USE SMARTSET 80184 2022 Zoster Vaccines (1 of 2) 2022 COVID-19 Vaccine (1 - 2022-2 4 season) 2023 Influenza Vaccine (FLU shot) (#1) 2023 Diabetes Screening 10/16/2026 10/17/2023 GARDASIL-HPV IMMUNIZATION SERIES Aged Out No longer eligible based on patient's age to complete this topic MENINGOCOCCAL (MENACTRA/MENVEO) Aged Out No longer eligible based on patient's age to complete this topic documented as of this encounter Medical Devices Not on filedocumented as of this encounter Results * (ABNORMAL) VITAMIN B12 (10/17/2023 2:22 PM EDT) Vitamin B12 1,267(H) 232 - 1,245 pg/mL 10/18/2023 2:03 AM EDT [facility] Blood Venous blood specimen / Unknown Venipuncture / Unknown 10/17/2023 2:22 PM EDT 10/17/2023 2:22 PM EDT Fadi Cole III, MD LAB BLOOD ORDERABLE S Performing Organization Address [facility] de Phone Number LABORATORY [facility] [address] [place] [address] * (ABNORMAL) IRON SCREEN, INCLUDING TIBC (10/17/2023 2:22 PM EDT) Iron 103 45 - 176 ug/dL 10/18/2023 1:34 AM EDT [facility] Iron Binding Capacity 120(L) 250 - 425 ug/dL 10/18/2023 1:34 AM EDT [facility] Transferrin Saturation Percent 86(H) 15 - 55 % 10/18/2023 1:34 AM EDT [facility] Blood Venous blood specimen / Unknown Venipuncture / Unknown 10/17/2023 2:22 PM EDT 10/17/2023 2:22 PM EDT Fadi Cole III, MD LAB BLOOD ORDERABLE S Performing Organization Address [facility] de Phone Number LABORATORY [facility] [address] [place] [address] * PHOSPHORUS (10/17/2023 2:22 PM EDT) Phosphorus 3.9 2.5 - 4.8 mg/dL 10/18/2023 1:12 AM EDT [facility] Blood Venous blood specimen / Unknown Venipuncture / Unknown 10/17/2023 2:22 PM EDT 10/17/2023 2:22 PM EDT Fadi Cole III, MD LAB BLOOD ORDERABLE S Performing Organization Address City/[facility]/ZIP Co de Phone Number LABORATORY [facility] [address] [place] [address] * MAGNESIUM (10/17/2023 2:22 PM EDT) Pathologist [facility] Magnesium 1.5 1.5 - 2.6 mg/dL 10/18/2023 1:12 AM EDT LABORATORY [facility] Blood Venous blood specimen / Unknown Venipuncture / Unknown 10/17/2023 2:22 PM EDT 10/17/2023 2:22 PM EDT Fadi Cole III, MD LAB BLOOD ORDERABLE S Performing Organization Address [facility] Co de Phone Number LABORATORY [facility] [address] [place] [address] * (ABNORMAL) COMPREHENSIVE METABOLIC PANEL (10/17/2023 2:22 PM EDT) Pathologist [facility] BUN 18 6 - 20 mg/dL 10/17/2023 3:45 PM EDT LAB[facility]ATORY [place] [facility] Creatinine 1.0 0.6 - 1.2 mg/dL 10/17/2023 3:45 PM EDT LAB[facility]ATORY [place] [facility] Estimated Glomerular Filtration Rate >90 >=60 mL/min 10/17/2023 3:45 PM EDT LAB[facility]ATORY [place] [facility] Comment:eGFR is calculated b ased on the CKD-EPI 2020 equation Sodium 128(L) 135 - 146 mmol/L 10/17/2023 3:45 PM EDT LAB[facility]ATORY [place] [facility] Potassium 3.6 3.5 - 5.1 mmol/L 10/17/2023 3:45 PM EDT LAB[facility]ORY [place] [facility] Chloride 88(L) 98 - 107 mmol/L 10/17/2023 3:45 PM EDT LAB[facility]ORY [place] [facility] CO2 29 22 - 32 mmol/L 10/17/2023 3:45 PM EDT LAB[facility]ORY [place] [facility] Anion Gap 11 7 - 15 mmol/L 10/17/2023 3:45 PM EDT LAB[facility]ORY [place] [facility] Glucose 106 70 - 120 mg/dL 10/17/2023 3:45 PM EDT LAB[facility]ORY [place] [facility] Albumin 2.8(L) 3.8 - 5.0 g/dL 10/17/2023 3:45 PM EDT LAB[facility]ORY [place] [facility] AST 42 10 - 50 U/L 10/17/2023 3:45 PM EDT [facility] [place] [facility] Alkaline Phosphatase 59 35 - 130 U/L 10/17/2023 3:45 PM EDT [facility] [place] [facility] Bilirubin, Total 2.1(H) <=1.2 mg/dL 10/17/2023 3:45 PM EDT LAB[facility] [place] [facility] Calcium 8.1(L) 8.4 - 10.2 mg/dL 10/17/2023 3:45 PM EDT LAB[facility]ORY [place] [facility] Protein 6.4 6.0 - 8.3 g/dL 10/17/2023 3:45 PM EDT LAB[facility] [place] [facility] ALT 11 10 - 50 U/L 10/17/2023 3:45 PM EDT [facility] [place] [facility] Blood Venous blood specimen / Unknown Venipuncture / Unknown 10/17/2023 2:22 PM EDT 10/17/2023 2:22 PM EDT Fadi Cole III, MD LAB BLOOD ORDERABLE S LABORATORY [place] [address] [place] [id number] * (ABNORMAL) ERYTHROCYTE SEDIMENTATION RATE (ESR) (10/17/2023 2:22 PM EDT) ESR 20(H) <20 mm/hour 10/18/2023 1:14 AM EDT LABORATORY [facility] Blood Venous blood specimen / Unknown Venipuncture / Unknown 10/17/2023 2:22 PM EDT 10/17/2023 2:22 PM EDT Fadi Cole III, MD LAB BLOOD ORDERABLE S [facility] [address] [place] [address] * CT ABD/PELVIS W IV AND W ORAL CONTRAST (10/17/2023 2:10 PM EDT) Anatomical Region Laterality Modality Body, Abdomen, Pelvis Computed T omography 10/17/2023 2:18 PM EDT Impressions 10/17/2023 2:16 PM EDT IMPRESSION 1. Hepatic cirrhosis with diffuse heterogeneity and low attenuation areas within the liver. This may reflect steatosis, though underlying mass lesions difficult to exclude. Recommend MRI abdomen with gadolinium for further assessment. 2. Moderate ascites. Narrative 10/17/2023 2:16 PM EDT EXAM EXAM: CT ABD/PELVIS W IV AND W ORAL CONTRAST DATE and TIME: 10/17/2023 - 10/17/2023 2:10 pm HISTORY "LLQ PAIN REBOUND" TECHNIQUE Oral Contrast: Oral contrast was administered. IV Contrast: IV contrast was used. Abdomen/Pelvis: with intravenous contrast COMPARISON None. FINDINGS LOWER CHEST: HEART (visualized): Normal in size. LUNG BASES: Mild bibasilar atelectasis. Small hiatal hernia. Fluid within the hiatal hernia. ABDOMEN/PELVIS: LINES AND DEVICES: None. LIVER: Cirrhosis. Diffuse heterogeneity of the liver with areas of hypodensity, which may represent patchy areas of steatosis, though mass lesions cannot be excluded. BILE DUCTS: Unremarkable. GALLBLADDER: Cholelithiasis. PANCREAS: Unremarkable. SPLEEN: Unremarkable. ADRENALS: Unremarkable. KIDNEYS/URETERS: 3.2 cm complex cystic lesion in the lower pole of the right kidney with internal septations. Additional bilateral renal cyst. BLADDER: Unremarkable. BOWEL: Colonic diverticulosis. No bowel wall thickening or bowel obstruction. LYMPH NODES: No intra-abdominal or intrapelvic lymphadenopathy. VESSELS: Abdominal aorta is normal in caliber. REPRODUCTIVE ORGANS: Unremarkable. PERITONEUM/RETROPERITONEUM: Moderate ascites. No free air. ABDOMINAL WALL/SOFT TISSUES: Unremarkable. BONES: Mild degenerative changes in the spine. Procedure Note Theodore Kumari MD - 10/17/2023 EXAM EXAM: CT ABD/PELVIS W IV AND W ORAL CONTRAST DATE and TIME: 10/17/2023 - 10/17/2023 2:10 pm HISTORY "LLQ PAIN REBOUND" TECHNIQUE Oral Contrast: Oral contrast was administered. IV Contrast: IV contrast was used. Abdomen/Pelvis: with intravenous contrast COMPARISON None. FINDINGS LOWER CHEST: HEART (visualized): Normal in size. LUNG BASES: Mild bibasilar atelectasis. Small hiatal hernia. Fluid within the hiatal hernia. ABDOMEN/PELVIS: LINES AND DEVICES: None. LIVER: Cirrhosis. Diffuse heterogeneity of the liver with areas ofhypodensity, which may represent patchy areas of steatosis, though masslesions cannot be excluded. BILE DUCTS: Unremarkable. GALLBLADDER: Cholelithiasis. PANCREAS: Unremarkable. SPLEEN: Unremarkable. ADRENALS: Unremarkable. KIDNEYS/URETERS: 3.2 cm complex cystic lesion in the lower pole of theright kidney with internal septations. Additional bilateral renal cyst. BLADDER: Unremarkable. BOWEL: Colonic diverticulosis. No bowel wall thickening or bowelobstruction. LYMPH NODES: No intra-abdominal or intrapelvic lymphadenopathy. VESSELS: Abdominal aorta is normal in caliber. REPRODUCTIVE ORGANS: Unremarkable. PERITONEUM/RETROPERITONEUM: Moderate ascites. No free air. ABDOMINAL WALL/SOFT TISSUES: Unremarkable. BONES: Mild degenerative changes in the spine. IMPRESSION IMPRESSION 1. Hepatic cirrhosis with diffuse heterogeneity and low attenuation areaswithin the liver. This may reflect steatosis, though underlying masslesions difficult to exclude. Recommend MRI abdomen with gadolinium forfurther assessment. 2. Moderate ascites. Fadi Cole III, MD RAD CT documented in this encounter Visit Diagnoses Diagnosis Routine medical exam- Primary Routine general medical examination at a health care facility Loss of weight LLQ pain Abdominal pain, left lower quadrant Dysphagia, unspecified type Acquired renal cyst of right kidney Acquired cyst of kidney Loss of weight LLQ pain Abdominal pain, left lower quadrant documented in this encounter
--- OUTSIDE RECORDS SUMMARY | 2024-02-25 16:17 | External Medical Summary ---
Author Name Unknown Address Unknown Organization [id number]:[facility] - [address] [place] [address] Laboratory Report Ordering Provider Test Date Status TALAT MONTENEGRO III 10/17/2023 14:22:40 Final Observation Date Value Abnormality Reference (Units ) Status Ferritin 10/17/2023 14:22:40 1207 Above high normal 30 -400 (ng/mL) Final Performing Location [facility] - [address] [place] [address]
--- OUTSIDE RECORDS SUMMARY | 2024-02-25 16:17 | External Medical Summary | Summary of Care ---
Author Name Unknown Organization [facility] Address [address] [place] [address] Phone [phone] Care Team Providers Care Rehab Therapy Manager Name Role Phone Kelsey PIERRE MD, Fadi Barker Primary Care Provider [phone] Reason for Visit * Reason Comments Pulmonary Function Test Spirogram withou t bronchodilator Encounter Details Date Type Department Care Team (Latest Contact Info) Description 11/14/2023 1:00 PM EDT PulmDiagnostic Pulmonary Function Lab, [facility] [address] [facility] [place] [address] [place], [address] [facility] [place] [address] Dyspnea, unspecified type*; Cigarette smoker Allergies Active Allergy Reactions Criticality Noted Date Comments Penicillins Unknown 08/09/2023 documented as of this encounter (statuses as of 11/14/2023) Medications No known medicationsdocumented as of this encounter (statuses as of 11/14/2023) Active Problems No known active problems documented as of this encounter (statuses as of 11/14/2023) Social History Tobacco Use Types Packs/Day Years Used Date Smoking Tobacco: Every Day Cigarettes 1 33.3 Started: 1990 Smokeless Tobacco: Never Tobacco Cessation:Ready to Q uit: Not Asked; Counseling Given: Not Answered Alcohol Use Standard Drinks/Week Comments Yes 0 [...] Sign Reading Time Taken Comments Blood Pressure - - Pulse - - Temperature - - Respiratory Rate - - Oxygen Saturation - - Inhaled Oxygen Concentration - - Weight 104.4 kg (230 lb 2.6 oz) 11/14/2023 1:13 PM EDT Height 173.5 cm (5' 8.31") 11/14/2023 1:13 PM ED T Body Mass Index 34.68 11/14/2023 1:13 PM EDT documented in this encounter Nursing Notes * Bharti Panchal RRT - 11/14/2023 1:14 PM EDT Santiago Amador was identified by name, Date of : (1970), and . Vitals were obtained for testing. Body mass index is 34.68 kg/m. Pt has a 1 ppd for 31 years smoking history thencut back to .5 ppd for 2.3 years total average 1 ppd for 33 years. Pt is applying for disability. Spirometry performed without bronchodilator. documented in this encounter Plan of Treatment Upcoming Encounters Date Type Department Care Team (Late st Contact Info) Description 11/16/2023 11:40 AM EDT Office Visit Family Practice [facility] 200 [facility] [place] [address] Fadi Cole III, MD [facility] [address] 11/20/2023 3:15 PM EDT Imaging Radiology [facility] 1st [facility] 132 [facility] [place] [address] 04/05/2024 1:00 PM EDT Office Visit Hepatology, [facility] [address] [facility] [place] [address] Sari Holder MD [address] [place] [address] Pending Results Name Type Priority Associated Diagnoses Date /Time BASIC SPIROMETRY Procedures Routine Dyspnea, unspecified type Cigarette smoker 11/14/2023 1:17 PM EDT Health Maintenance Due Date Last [...] Procedure Name Priority Date/Time Associated Diagnosis Comments BASIC SPIROMETRY Routine 11/14/2023 1:17 PM EDT Dyspnea, unspecified type Cigarette smoker documented in this encounter Visit Diagnoses Diagnosis Dyspnea, unspecified type- Primary Cigarette smoker Tobacco use disorder documented in this encounter Care Teams Rehab Therapy Manager Relationship Specialty Start Date End Date Fadi Cole III, MD [address] [place] [address] PCP - General Family Medicine 10/20/23 documented as of this encounter
--- OUTSIDE RECORDS SUMMARY | 2024-02-25 16:17 | External Medical Summary ---
Author Name Unknown Address Unknown Organization K01:LABORATORY [facility] - [address] [place] [address] Laboratory Report Ordering Provider Test Date Status TALAT MONTENEGRO III 10/17/2023 14:22:40 Final Observation Date Value Abnormality Reference (Units ) Status Vitamin B12 10/17/2023 14:22:40 1267 Above high normal 232-1245 (pg/mL) Final Performing Location LAB[facility]ORY [facility] - [address] [place] [address]
--- OUTSIDE RECORDS SUMMARY | 2024-02-25 16:17 | External Medical Summary ---
Author Name Unknown Address Unknown Organization K01:[facility] - [address] [place] [address] Laboratory Report Ordering Provider Test Date Status TALAT MONTENEGRO III 10/17/2023 14:22:40 Final Observation Date Value Abnormality Reference (Units ) Status Iron 10/17/2023 14:22:40 103 45-176 (ug/dL) Final Iron-binding capacity 10/17/2023 14:22:40 120 Below low normal 250-425 (ug/dL) Final Transferrin Sat % 10/17/2023 14:22:40 86 Above high normal 15-55 (%) Final Performing Location LABORATORY [facility] - [address] [place] [address]
--- OUTSIDE RECORDS SUMMARY | 2024-02-25 16:17 | External Medical Summary ---
Author Name Unknown Address Unknown Organization K0G:[facility]ORY [place] [facility] - [address] [place] [address] Laboratory Report Ordering Provider Test Date Status TALAT MONTENEGRO III 10/17/2023 14:22:40 Final Observation Date Value Abnormality Reference (Units ) Status BUN 10/17/2023 14:22:40 18 6-20 (mg/dL) Final Creatinine 10/17/2023 14:22:40 1.0 0.6-1.2 (mg/dL) Final Glomerular filtration rate/1.73 sq M.predicted [Volume Rate/Area] in Serum, Plasma or Blood by Creatinine-based formula (CKD-EPI) 10/17/2023 14:22:40 >90 >=60 (mL/min) Final eGFR is calculated based on the CKD-EPI 2020 equation SODIUM 10/17/2023 14:22:40 128 Below low normal 135 -146 (mmol/L) Final Potassium 10/17/2023 14:22:40 3.6 3.5-5.1 (m mol/L) Final Cl 10/17/2023 14:22:40 88 Below low normal 98- 107 (mmol/L) Final CO2 10/17/2023 14:22:40 29 22-32 (mmo l/L) Final Anion gap 10/17/2023 14:22:40 11 7-15 (mmol /L) Final Glucose 10/17/2023 14:22:40 106 70-120 (mg /dL) Final Albumin 10/17/2023 14:22:40 2.8 Below low normal 3.8 -5.0 (g/dL) Final AST (Aspartate aminotransferase) 10/17/2023 14:22:40 42 10-50 (U/L) Fin al Alk Phos 10/17/2023 14:22:40 59 35-130 (U/ L) Final Bilirubin, Total 10/17/2023 14:22:40 2.1 Above high no rmal <=1.2 (mg/dL) Final Calcium 10/17/2023 14:22:40 8.1 Below low normal 8.4 -10.2 (mg/dL) Final Protein 10/17/2023 14:22:40 6.4 6.0-8.3 (g /dL) Final ALT (Alanine aminotransferase) 10/17/2023 14:22:40 11 10-50 (U/L) Yohan thomas Performing Location [facility]ORY [place] [facility] 0 - [address] [facility] [address]
--- OUTSIDE RECORDS SUMMARY | 2024-02-25 16:17 | External Medical Summary | Summary of Care ---
Author Name Unknown Organization [facility] Address [address] [facility] [place] [address] Phone [phone] Care Team Providers Care Manager Of Customer Billing Name Role Phone Unavailable Primary Care Provider Unavailabl e Reason for Visit * Reason Onset Date Comments Appointment 10/17/2023 Encounter Details Date Type Department Care Team (Late st Contact Info) Description 10/17/2023 Telephone Family Practice [facility] [place] [address] [facility] [place] [address] Fadi Cole III, MD [address] [facility] [place] [address] Appointment (/) Allergies No known active allergiesdocumented as of this encounter (statuses as of 10/17/2023) Medications No known medicationsdocumented as of this encounter (statuses as of 10/17/2023) Social History Tobacco Use Types Packs/Day Years [...] encounter Miscellaneous Notes * Telephone Encounter - Sammi Sierra OSA - 10/17/2023 10:37 AM EDT Pt needs to schedule FLUORO SWALLOWING FUNCTION W VIDEO CINE Associated Diagnoses Loss of weight [R63.4] LLQ pain [R10.32] Dysphagia, unspecified type [R13.10] Please contact pt to schedule appointment Thank You documented in this encounter Plan of Treatment Upcoming Encounters Date Type Department Care Team (Late st Contact Info) Description 10/17/2023 12:30 PM EDT Imaging Radiology [address] [place] [address] Health Maintenance Due Date Last Done Comments Lipid Panel 1972 Depression Screening 1984 HIV Screening 1987 Hepatitis C Screening 1990 DTaP,Tdap,and Td Vaccines (1 - Tdap) 1991 Hepatitis B (1 of 3 - 19+ 3- dose series) 1991 Cologuard 2017 Colonoscopy 2017 Colorectal Cancer Screening 2017 Fecal Occult Blood Test 2017 Sigmoidoscopy 2017 Zoster Vaccines (1 of 2) 2022 COVID-19 Vaccine (1 - 2022-2 4 season) 2023 Influenza Vaccine (FLU shot) (#1) 2023 GARDASIL-HPV IMMUNIZATION SERIES Aged Out No longer eligible based on patient's age to complete this topic MENINGOCOCCAL (MENACTRA/MENVEO) Aged Out No longer eligible based on patient's age to complete this topic Pneumococcal Vaccine: Pediat rics (0 to 5 Years) and At-Risk Patients (6 to 64 Years) Aged Out No longer eligible b ased on patient's age to complete this topic documented as of this encounter Medical Devices Not on filedocumented as of this encounter
--- OUTSIDE RECORDS SUMMARY | 2024-02-25 16:17 | External Medical Summary ---
Author Name Unknown Address Unknown Organization K0G:LABORATORY [facility] [address] [place] [address] Laboratory Report Ordering Provider Test Date Status TALAT MONTENEGRO GABBY 10/17/2023 14:22:40 Final Observation Date Value Abnormality Reference (Units ) Status SYNC LEUKOCYTES IN BLOOD BY AUTOMATED COUNT 10/17/2023 14:22:40 11.21 Above high normal 4.00-10.80 (K/uL) Final Neutrophils/100 leukocytes in Blood by Manual count 10/17/2023 14:22:40 73.0 40.0-75.0 (%) Final Lymphocytes/100 leukocytes in Blood by Manual count 10/17/2023 14:22:40 20.0 18.0-42.0 (%) Final Monocytes/100 leukocytes in Blood by Manual count 10/17/2023 14:22:40 7.0 1.0-11.0 (%) Final Neutrophils [#/volume] in Blood by Manual count 10/17/2023 14:22:40 8.18 Above high normal 1.80-7.70 (K/uL) Final Lymphocytes [#/volume] in Blood by Manual count 10/17/2023 14:22:40 2.24 1.00-4.80 (K/uL) Final Monocytes [#/volume] in Blood by Manual count 10/17/2023 14:22:40 0.78 0.00-1.10 (K/uL) Final Nucleated erythrocytes/100 leukocytes [Ratio] in Blood by Automated count 10/17/2023 14:22:40 Final Neutrophils.hypersegm ented [Presence] in Blood by Light microscopy 10/17/2023 14:22:40 Present Abnormal None Seen Final Performing Location LABORATORY [facility] [place] [address] [place] [address]
--- OUTSIDE RECORDS SUMMARY | 2024-02-25 16:17 | External Medical Summary ---
Author Name Unknown Address Unknown Organization [id number] [address] [place] [address] Laboratory Report Ordering Provider Test Date Status TALAT MONTENEGRO III 10/17/2023 14:22:40 Final Observation Date Value Abnormality Reference (Units ) Status WBC, Total 10/17/2023 14:22:40 11.21 Above high normal 4 .00-10.80 (K/uL) Final RBC 10/17/2023 14:22:40 2.42 4.50-5.25 (M/uL) Final Hemoglobin 10/17/2023 14:22:40 9.3 Below low normal 14 .0-16.8 (g/dL) Final HCT 10/17/2023 14:22:40 25.6 Below low normal 40. 0-48.4 (%) Final MCV 10/17/2023 14:22:40 105.8 82.0-99.5 (fL) Final MCH 10/17/2023 14:22:40 38.4 27.0-34.0 (pg) Final MCHC 10/17/2023 14:22:40 36.3 32.0-36.0 (g/dL) Final RDW 10/17/2023 14:22:40 17.6 11.5-15.5 (%) Final Platelets 10/17/2023 14:22:40 200 140-400 (K /uL) Final MPV 10/17/2023 14:22:40 9.7 6.6-11.1 ( fL) Final Performing Location LABORATORY [facility] [address] [place] [address]
--- OUTSIDE RECORDS SUMMARY | 2024-02-25 16:17 | External Medical Summary | Summary of Care ---
Author Name Unknown Organization [facility] Address [address] [place] [address] Phone [phone] Care Team Providers Care Heel Edge Inker Machine Name Role Phone Unavailable Primary Care Provider Unavailabl e Reason for Visit * Reason Onset Date Comments Mycode - Thinking About It But No Form Provided 10/17/2023 Encounter Details Date Type Department Care Team (Late st Contact Info) Description 10/17/2023 Orders Only Outcomes Research Department [address] [place] [address] Sean Lantigua CHRA MyCfabricio Nonconsent Documentation Allergies No known active allergiesdocumented as of this encounter (statuses as of 10/17/2023) Medications No known medicationsdocumented as of this encounter (statuses as of 10/17/2023) Social History Tobacco Use Types Packs/Day Years Used Date Smoking Tobacco: Every Day Cigarettes Smokeless Tobacco: Never Alcohol Use Standard Drinks/Week Comments Yes 0 (1 standard drink = 0.6 oz pur e alcohol) occasional Sex and Gender Information Value Date Recorded Sex Assigned at Not on file Gender Identity Not on file Sexual Orientation Not on file Job Start Date Occupation Industry Not on file Not on file Not on file documented as of this encounter Progress Notes * Sean Lantigua CHRA - 10/17/2023 9:54 AM EDT Margaritaode Nonconsent Documentation Santiago Amador was approached in the clinic regarding participation in the MyCode Project and did not consent. documented in this encounter Plan of Treatment Health Maintenance Due Date Last Done Comments Lipid Panel 1972 Depression Screening 1984 HIV Screening 1987 Hepatitis C Screening 1990 DTaP,Tdap,and Td Vaccines (1 - Tdap) 1991 Hepatitis B (1 of 3 - 19+ 3- dose series) 1991 Cologuard 2017 Colonoscopy 2017 Colorectal Cancer Screening 2017 Fecal Occult Blood Test 2017 Sigmoidoscopy 2017 Zoster Vaccines (1 of 2) 2022 COVID-19 Vaccine ( - 2022-2 4 season) 2023 Influenza Vaccine [...]
--- OUTSIDE RECORDS SUMMARY | 2024-02-25 16:17 | External Medical Summary ---
Author Name Unknown Address Unknown Organization [id number]:[facility] [place] [address] [place] [address] Laboratory Report Ordering Provider Test Date Status THAI MCLEAN 10/17/2023 14:22:40 Final Observation Date Value Abnormality Reference (Units ) Status Folic Acid 10/17/2023 14:22:40 <2.0 Below low normal >4 .5 (ng/mL) Final Performing Location LABORATORY [facility] - [address] [place] [address]
--- OUTSIDE RECORDS SUMMARY | 2024-02-25 16:17 | External Medical Summary | Summary of Care ---
Author Name Unknown Organization [facility] Address [address] [facility] [place] [address] Phone [phone] Care Team Providers Care Car Lubricator Name Role Phone Kelsey PIERRE MD, Fadi Barker Primary Care Provider Encounter Details Date Type Department Care Team (Late st Contact Info) Description 08/13/2023 Result Scan Unspecified Department <No scans attached> Allergies No known active allergiesdocumented as of this encounter (statuses as of 10/30/2023) Medications No known medicationsdocumented as of this encounter (statuses as of 10/30/2023) Active Problems No known active problems documented as of this encounter (statuses as of 10/30/2023) Social History Tobacco Use Types Packs/Day Years Used Date Smoking Tobacco: Never Assessed Sex and Gender Information Value Date Recorded [...] 10:20 AM EDT Office Visit Family Practice [facility] 200 [facility] [place] [address] Fadi Cole III, MD 200 [facility] [place] [address] 11/20/2023 3:15 PM EDT Imaging Radiology [facility] 1st [facility] [place] 132 [facility] [place] [address] Health Maintenance Due Date Last Done Comments [...] 2017 LUNG CANCER SCREENING - USE SMARTSET 41364 2022 Zoster Vaccines (1 of 2) 2022 [...] Procedure Name Priority Date/Time Associated Diagnosis Comments RADIOLOGY SCANNED RESULT 08/13/2023 documented in this encounter Results * RADIOLOGY SCANNED RESULT (08/13/2023) 08/13/2023 No Physician Data Unknown DIAGNOSTIC RAD IOLOGY SERVICES documented in this encounter Care Teams Car Lubricator Relationship Specialty Start Date End Date Fadi Cole III, MD 200 [place] [address] PCP - General Family Medicine 10/20/23 documented as of this encounter
--- OUTSIDE RECORDS SUMMARY | 2024-02-25 16:17 | External Medical Summary | Summary of Care ---
Author Name Unknown Organization [facility] Address [address] [place] [address] Phone [phone] Care Team Providers Care Cloth Finisher Name Role Phone Kelsey PIERRE MD, Fadi Barker Primary Care Provider [phone] Reason for Visit * Reason Onset Date Comments Appointment 11/18/2023 Encounter Details Date Type Department Care Team (Late st Contact Info) Description 11/18/2023 Telephone Radiology [address], [place] [address] [place] [address] Zari Lindsey TECH Appointment Allergies Active Allergy Reactions Criticality Noted Date Comments Penicillins Unknown 08/09/2023 documented as of this encounter (statuses as of 11/18/2023) Medications Medication Sig Dispensed Refills Start Date End Date Status Folic Acid 5 MG Oral Capsule Take 1 Capsule by mouth in the morning. 100 Capsule 3 11/16/2023 Active Anoro Ellipta 62.5-25 MCG/ACT Inhalation Aerosol Powder Breath Activated (umeclidinium-vilant bill) Inhale 1 Puff by mouth in the morning. 30 Each 11 11/16/2023 Active documented as of this encounter (statuses as of 11/18/2023) Active Problems No known active problems documented as of this encounter (statuses as of 11/18/2023) Social History Tobacco Use Types Packs/Day Years [...] encounter Miscellaneous Notes * Telephone Encounter - Zari Lindsey TECH - 11/18/2023 9:04 AM EDT Name: Santiago Amador Do you have any of the following: Pacemaker, stents, heart valves, aneurysm clips? No Have you ever worked with metal or have you ever gotten metal in your eyes? No Have you had a colonoscopy in the last 30 days? No On dialysis? No Do you have any dermals or body piercing's? No or ? Do you wear an insulin pump or diabetic monitor? No No new tattoos JESUS Barton documented in this encounter Plan of Treatment Upcoming Encounters Date Type Department Care Team (Late st Contact Info) Description 11/20/2023 3:15 PM EDT Imaging Radiology [address] 132 [facility] [place] [address] 12/18/2023 11:40 AM EDT Office Visit Family Practice [facility] 200 [facility] [place] [address] Juana Elder PA-C 200 [facility] [place] [address] 04/05/2024 1:00 PM EDT Office Visit Hepatology, [facility] 132 [facility] [place] [address] Sari Holder MD [address] [place] [address] Health Maintenance Due Date Last Done Comments [...] filedocumented as of this encounter Care Teams Cloth Finisher Relationship Specialty Start Date End Date Fadi Cole III, MD 200 [place] [address] PCP - General Family Medicine 10/20/23 documented as of this encounter
--- OUTSIDE RECORDS SUMMARY | 2024-02-25 16:17 | External Medical Summary | Summary of Care ---
Author Name Unknown Organization [facility] Address [address] [facility] [place] [address] Phone [phone] Care Team Providers Care Satellite Instruction Facilitator Name Role Phone Unavailable Primary Care Provider Unavailabl e Reason for Visit * Reason Onset Date Comments Test Results 10/17/2023 Unexpected or In determinate Result Encounter Details Date Type Department Care Team (Late st Contact Info) Description 10/17/2023 Telephone Family Practice [facility] [place] 200 [facility] [place] [address] Fadi Cole III, MD 200 [facility] [place] [address] Test Results (Unexpected or Indeterminate ... Allergies No known active allergiesdocumented as of this encounter (statuses as of 10/17/2023) Medications Hospital, Clinic, or Other Facility Administered Medication Ordered Dose Route Frequency Start Date End Date Status sodium chloride 0.9 % flush/inj 10 mL 10 mL IV PUSH ONCE 10/17/2023 10/18/2023 Active documented as of this encounter (statuses [...] encounter Miscellaneous Notes * Telephone Encounter - Sulma Adrian OSA - 10/17/2023 3:19 PM EDT Timothy- The radiologist discovered an unexpected or indeterminate finding on Santiago Amador ([id number]) and asks that you review the following report. Study Type: CT ABD/PELVIS W IV AND W ORAL CONTRAST Date of Study: 10/17/2023 IMPRESSION 1. Hepatic cirrhosis with diffuse heterogeneity and low attenuation areas within the liver. This may reflect steatosis, though underlying mass lesions difficult to exclude. Recommend MRI abdomen withgadolinium for further assessment. 2. Moderate ascites. Please respond to this encounter to acknowledge receipt of this message and take responsibility to ensure this report is reviewed. Thank you, EMERSON Bowling Client Service [facility] documented in this encounter Plan of Treatment Upcoming Encounters Date Type Department Care Team (Late st Contact Info) Description 10/17/2023 4:40 PM EDT Laboratory Laboratory, [facility] 132 [facility] [place] [phone] [facility] 132 [facility] [place] [address] Loss of weight; LLQ pain; Dysphagia, unspecified type Health Maintenance Due Date Last Done Comments Diabetes Screening 1972 10/17/2023 Lipid Panel 1972 Pneumococcal Vaccine: Pediat rics [...] 2017 LUNG CANCER SCREENING - USE SMARTSET 26819 2022 Zoster Vaccines (1 of 2) 2022 [...]
--- OUTSIDE RECORDS SUMMARY | 2024-02-25 16:17 | External Medical Summary | Summary of Care ---
Author Name Unknown Organization [facility] Address [address] [place] [address] Phone [phone] Care Team Providers Care Top Dyeing Machine Loader Name Role Phone Kelsey PIERRE MD, John E Primary Care Provider [phone] Reason for Visit * Reason Comments Outpatient Testing * Precert (Within 10 days (routine)) - Authorized Specialty Diagnoses / Procedures Referred By Contbetty t Referred To Contact Laboratory Diagnoses Elevated ferritin Procedures HFE MUTATION ANALYSIS, PCR Fadi Cole III, MD [address] [place] [place] [address] Referral ID Status Reason Start Date Expiration Date V isits Requested Visits Authorized [id number] Authorized Precert 10/20/2023 02/19/2024 [id number] Encounter Details Date Type Department Care Team (Late st Contact Info) Description 11/09/2023 10:50 AM EDT Laboratory Laboratory [facility] 200 [facility] [place] [id number] [place] [facility] 200 [facility] [place] [address] Elevated ferritin; Need for hepatitis C screening test Allergies Active Allergy Reactions Criticality Noted Date Comments Penicillins Unknown 08/09/2023 documented as of this encounter (statuses as of 11/09/2023) Medications No known medicationsdocumented as of this encounter (statuses as of 11/09/2023) Active Problems No known active problems documented as of this encounter (statuses as of 11/09/2023) Social History Tobacco Use Types Packs/Day Years [...] Care Team (Late st Contact Info) Description 11/14/2023 1:00 PM EDT PulmDiagnostic Pulmonary Function Lab, [facility] 132 [facility] [place] [address] [place] 132 [facility] [place] [address] 11/16/2023 11:40 AM EDT Office Visit Family Practice [facility] 200 [facility] [place] [address] Fadi Cole III, MD 200 [facility] [place] [address] 11/20/2023 3:15 PM EDT Imaging Radiology [facility] 1st Floor, [place] [address] [place] [address] 04/05/2024 1:00 PM EDT Office Visit Hepatology, [facility] 132 [facility] [place] [address] Sari Holder MD [address] [place] [address] Pending Results Name Type Priority Associated Diagnoses Date /Time HFE MUTATION ANALYSIS, PCR Lab Routine Elevated ferritin 11/09/2023 10:47 AM EDT HEPATITIS C ANTIBODY SCREEN WITH PROGRESSION TO HEPATITIS C RNA QUANTITATIVE Lab Routine Need for hepatitis C screening test 11/09/2023 10:47 AM EDT HEPATITIS C ANTIBODY Lab Routine Need for hepatitis C screening test 11/09/2023 10:47 AM EDT HEPATITIS C RNA ADD ON Lab Routine Need for hepatitis C screening test 11/09/2023 10:47 AM EDT Health Maintenance Due Date Last Done [...] 2017 LUNG CANCER SCREENING - USE SMARTSET 47796 2022 Zoster Vaccines (1 of 2) 2022 [...] as of this encounter Visit Diagnoses Diagnosis Elevated ferritin Other abnormal blood chemistry Need for hepatitis C screening test Special screening examination for other specified viral diseases documented in this encounter Care Teams Top Dyeing Machine Loader Relationship Specialty Start Date End Date Fadi Cole III, MD 200 [place] [address] PCP - General Family Medicine 10/20/23 documented as of this encounter
--- OUTSIDE RECORDS SUMMARY | 2024-02-25 16:17 | External Medical Summary | Summary of Care ---
Author Name Unknown Organization [facility] Address [address] [place] [address] Phone [phone] Care Team Providers Care Hospital Cook Name Role Phone Kelsey PIERRE MD, Fadi Barker Primary Care Provider [phone] Reason for Referral * Evaluate & Treat - Unlimited Visits (Within 10 days (routine)) - Pending Review Specialty Diagnoses / Procedures Referred By Rick rodriguez Referred To Contact Gastroenterology Diagnoses Alcoholic cirrhosis of liver with ascites (HCC) Fadi Cole III, MD 200 [place] [address] Referral ID Status Reason Start Date Expiration Date Visits Requested Visits Authorized [id number] Pending Review Specialty Services Required 10/31/2023 [id number] Question Answer Referral Priority Within 10 days (routine) Where should this appointment be scheduled? [facility] For what condition is the patient being referred? Liver conditions Reason for Visit * Reason Comments Follow Up 2 week follow up Encounter Details Date Type Department Care Team (Late st Contact Info) Description 10/31/2023 10:20 AM EDT Office Visit Family [facility] [place] [address] [place] [address] Fadi Cole III, MD 200 [facility] [place] [address] Alcoholic cirrhosis of liver with ascites (HCC)*; Need for hepatitis C screening test; Dyspnea, unspecified type; Cigarette smoker Allergies Active Allergy Reactions Criticality Noted Date Comments Penicillins Unknown 08/09/2023 documented as of this encounter (statuses as of 10/31/2023) Medications Hospital, Clinic, or Other Facility Administered Medication Ordered Dose Route Frequency Start Date End Date Status albuterol (VENTOLIN HFA/PROVENTIL HFA) inhalerIndications:Dyspnea, unspecified type,Cigarette smoker 2 Puff IN ONCE 11/01/2023 11/01/2023 Active documented as of this encounter (statuses as of 10/31/2023) Active Problems No known active problems documented as of this encounter (statuses as of 10/31/2023) Social History Tobacco Use Types Packs/Day Years [...] Sign Reading Time Taken Comments Blood Pressure 108/72 10/31/2023 10:30 AM EDT Pulse 98 10/31/2023 10:30 AM EDT Temperature 36.5 C (97.7 F) 10/31/2023 10:30 AM E DT Respiratory Rate 16 10/31/2023 10:30 AM EDT Oxygen Saturation 94% 10/31/2023 10:30 AM EDT Inhaled Oxygen Concentration - - Weight 104.8 kg (231 lb) 10/31/2023 10:30 AM EDT Height - - Body Mass Index 35.12 10/17/2023 9:56 AM EDT documented in this encounter Progress Notes * Kelsey III, Fadi Barker MD - 10/31/2023 10:57 AM EDT Subjective: Santiago Amador is a 53 year old male. Chief Complaint Patient presents with Follow Up 2 week follow up HPI: Follow-up cirrhosis alcoholic still drinking 1 alcoholic beverage per day he states smoking needs to come back in for hemochromatosis genetic testing next week check hepatitis-C as well feels like he is losing muscle strength not eating has cut back fluids as well no bleeding urine or bowels has a abdominal pressure with his ascites no current fever chills does have a cough productive of some thick clear sputum for several months now a little swelling of his ankles denies chest pain PMH: There is no problem list on file for this patient. No current outpatient medications on file. Current Facility-Administered Medications Medication Dose Route Frequency Provider Last Rate Last Admin [START ON 11/01/2023] albuterol (VENTOLIN HFA/PROVENTIL HFA) inhaler 2 Puff Inhalation Once Fadi Cole III, MD Review of patient's allergies indicates: Allergen Reactions Penicillins Unknown No past medical history on file. No past surgical history on file. Objective: The patient is a 53 year old male BP 108/72 | Pulse 98 | Temp 36.5 C (97.7 F) | Resp 16 | Wt 104.8 kg (231 lb) | SpO2 94% | BMI 35.12 kg/m | BSA 2.24 m General: alert, healthy, and no distress Eye Exam: PERRLA, extraocular movements intact, conjunctiva are pink and non- injected, sclera clear Oropharynx: no exudate, no erythema, lips, buccal mucosa, and tongue normal, and mucous membranes are moist Heart: regular rate & rhythm, no murmur, and no gallops Lungs: lungs clear to auscultation Abdomen: abdomen soft, non-tender, normal bowel sounds, no masses or organomegaly, and swelling fluid wave Extremities: no clubbing, no cyanosis, trace edema bilaterally ASSESSMENT: K70.31 Alcoholic cirrhosis of liver with ascites (HCC) (primary encounter diagnosis) Z11.59 Need for hepatitis C screening test R06.00 Dyspnea, unspecified type F17.210 Cigarette smoker PLAN: Will come in next week for hemochromatosis genetic testing get hepatitis-C antibody as well hepatology referral placed encourage smoking cessation try boost/ensure/carnation instant breakfast check PFTs follow-up after Follow up 2 weeks after PFTs. Fadi Cole III, MD documented in this encounter Nursing Notes * Mariana Yoo LPN - 10/31/2023 10:30 AM EDT The patient has been properly identified by confirmation of name and date of . Chief Complaint Patient presents with Follow Up 2 week follow up documented in this encounter Plan of Treatment Upcoming Encounters Date Type Department Care Team (Late st Contact Info) Description 11/14/2023 1:00 PM EDT PulmDiagnostic Pulmonary Function Lab, [facility] 132 [facility] [place] [address] [place], [address] 132 [facility] [place] [address] 11/16/2023 11:40 AM EDT Office Visit Family Practice [facility] 200 [facility] [place] [address] [place] Fadi PIERRE MD 200 [facility] [place] [address] 11/20/2023 3:15 PM EDT Imaging Radiology [address] 132 [facility] [place] [address] Scheduled Orders Name Type Priority Associated Diagnoses Orde r Schedule HEPATITIS C ANTIBODY SCREEN WITH PROGRESSION TO HEPATITIS C RNA QUANTITATIVE Lab Routine Need for hepatitis C screening test Expected: 10/31/2023 (Approximate), Expires: 10/30/2024 SPIROMETRY B/A BRONCHODILATOR Procedures Routine Dyspnea, unspecified type Cigarette smoker Expected: 10/31/2023 (Approximate), Expires: 11/29/2024 Scheduled Referrals Name Type Priority Associated Diagnoses Orde r Schedule HEPATOLOGY REFERRAL OP Referral Within 10 days (routine) Alcoholic cirrhosis of liver with ascites (HCC) Ordered: 10/31/2023 Health Maintenance Due Date Last Done Comments [...] 2017 LUNG CANCER SCREENING - USE SMARTSET [id number] 2022 Zoster Vaccines (1 of 2) 2022 [...] ascites (HCC)- Primary Alcoholic cirrhosis of liver Need for hepatitis C screening test Special screening examination for other specified viral diseases Dyspnea, unspecified type Cigarette smoker Tobacco use disorder documented in this encounter Care Teams Hospital Cook Relationship Specialty Start Date End Date Fadi Cole III, MD 200 [place] [address] PCP - General Family Medicine 10/20/23 documented as of this encounter"
--- OUTSIDE RECORDS SUMMARY | 2024-02-25 16:17 | External Medical Summary ---
Author Name Unknown Address Unknown Organization K01:LAB[facility] [place] - [address] [place] [address] Laboratory Report Ordering Provider Test Date Status THAI MCLEAN 10/17/2023 14:22:40 Final Observation Date Value Abnormality Reference (Units ) Status Retic, % (auto) 10/17/2023 14:22:40 2.63 Above high normal 0.80-1.90 (%) Final Reticulocytes, Absolute 10/17/2023 14:22:40 66.3 31.3-100.1 (K/uL) Final Reticulocyte fraction, immature 10/17/2023 14:22:40 23.0 Above high normal 2.5-20.6 (%) Final Reticulocyte HGB 10/17/2023 14:22:40 45.0 Above high normal 29.7-37.4 (pg) Final Performing Location LABORATORY [facility] [place] - [address] [place] [address]
--- OUTSIDE RECORDS SUMMARY | 2024-02-25 16:17 | External Medical Summary | Summary of Care ---
Author Name Unknown Organization [facility] Address [address] [facility] [place] [address] Phone [phone] Care Team Providers Care Duplicating Machine Mechanic Name Role Phone Unavailable Primary Care Provider Unavailabl e Reason for Visit * Reason Onset Date Comments Test Results 10/17/2023 Unexpected or In determinate Result Encounter Details Date Type Department Care Team (Late st Contact Info) Description 10/17/2023 Telephone Family Practice [facility] [address] [place] [address] Fadi Cole III, MD [address] [place] [address] Test Results (Unexpected or Indeterminate ... Allergies No known active allergiesdocumented as of this encounter (statuses as of 10/18/2023) Medications Hospital, Clinic, or Other Facility Administered Medication Ordered Dose Route Frequency Start Date End Date Status sodium chloride 0.9 % flush/inj 10 mL 10 mL IV PUSH ONCE 10/17/2023 10/18/2023 Ended documented as of this encounter (statuses as of 10/18/2023) Social History Tobacco Use Types Packs/Day Years [...] - Fadi Cole III, MD - 10/18/2023 8:02 AM EDT Noted * Telephone Encounter - Sulma Adrian OSA - 10/17/2023 3:19 PM EDT Hello- The radiologist discovered an unexpected or indeterminate finding on Santiago Amador ([id number]) and asks that you review the following [...] reviewed. Thank you, EMERSON Bowling Client Service [facility] documented in this encounter Plan of Treatment [...] 2017 LUNG CANCER SCREENING - USE SMARTSET 94690 2022 Zoster Vaccines (1 of 2) 2022 [...]
--- OUTSIDE RECORDS SUMMARY | 2024-02-25 16:17 | External Medical Summary ---
Author Name Unknown Address Unknown Organization K01:[facility] - [address] [place] [address] Laboratory Report Ordering Provider Test Date Status TALAT MONTENEGRO III 10/17/2023 14:22:40 Final Observation Date Value Abnormality Reference (Units ) Status Phosphate 10/17/2023 14:22:40 3.9 2.5-4.8 (m g/dL) Final Performing Location [facility] - [address] [place] [address]
--- OUTSIDE RECORDS SUMMARY | 2024-02-25 16:17 | External Medical Summary | Summary of Care ---
Author Name Unknown Organization [facility] Address [address] [place] [facility] [place] [address] Phone [phone] Care Team Providers Care Topology Teacher Name Role Phone Unavailable Primary Care Provider Unavailabl e Reason for Visit * Reason Comments Outpatient Testing Encounter Details Date Type Department Care Team (Late st Contact Info) Description 10/17/2023 4:40 PM EDT Laboratory [facility], [facility] [phone] [facility] [address] [facility] [address] Loss of weight; LLQ pain; Dysphagia, unspecified type Allergies No known active allergiesdocumented as of [...] as of this encounter Plan of Treatment Pending Results Name Type Priority Associated Diagnoses Date /Time CBC WITH WBC DIFFERENTIAL Lab Routine Loss of weight LLQ pain Dysphagia, unspecified type 10/17/2023 2:22 PM EDT ERYTHROCYTE SEDIMENTATION RATE (ESR) Lab Routine Loss of weight LLQ pain Dysphagia, unspecified type 10/17/2023 2:22 PM EDT COMPREHENSIVE METABOLIC PANEL Lab Routine Loss of weight LLQ pain Dysphagia, unspecified type 10/17/2023 2:22 PM EDT MAGNESIUM Lab Routine Loss of weight LLQ pain Dysphagia, unspecified type 10/17/2023 2:22 PM EDT PHOSPHORUS Lab Routine Loss of weight LLQ pain Dysphagia, unspecified type 10/17/2023 2:22 PM EDT IRON SCREEN, INCLUDING TIBC Lab Routine Loss of weight LLQ pain Dysphagia, unspecified type 10/17/2023 2:22 PM EDT VITAMIN B12 Lab Routine Loss of weight LLQ pain Dysphagia, unspecified type 10/17/2023 2:22 PM EDT CBC Lab Routine Loss of weight LLQ pain Dysphagia, unspecified type 10/17/2023 2:22 PM EDT DIFFERENTIAL, AUTOMATED Lab Routine Loss of weight LLQ pain Dysphagia, unspecified type 10/17/2023 2:22 PM EDT Health Maintenance Due Date Last Done Comments Diabetes Screening 1972 Lipid Panel 1972 Pneumococcal Vaccine: Pediat [...] 2017 LUNG CANCER SCREENING - USE SMARTSET [id number] 2022 Zoster Vaccines (1 of 2) 2022 [...] as of this encounter Visit Diagnoses Diagnosis Loss of weight LLQ pain Abdominal pain, left lower quadrant Dysphagia, unspecified type documented in this encounter
--- OUTSIDE RECORDS SUMMARY | 2024-02-25 16:17 | External Medical Summary ---
Author Name Unknown Address Unknown Organization K01:[facility] - [address] [place] [address] Laboratory Report Ordering Provider Test Date Status TALAT MONTENEGRO III 11/09/2023 10:47:01 Final Observation Date Value Abnormality Reference (Units ) Status Hep C Ab 11/09/2023 10:47:01 Negative Negative Final Further HCV quantitative lorena ting not performed per protocol. Performing Location [facility] - [address] [place] [address]
--- OUTSIDE RECORDS SUMMARY | 2024-02-25 16:17 | External Medical Summary ---
Author Name Unknown Address Unknown Organization K01:[facility] - [address] [place] [address] Laboratory Report Ordering Provider Test Date Status THAI MCLEAN 10/17/2023 14:22:40 Final Observation Date Value Abnormality Reference (Units ) Status Haptoglobin 10/17/2023 14:22:40 114 30-200 ( mg/dL) Final [facility] Location [facility] [address] [facility] [place] [address]
--- OUTSIDE RECORDS SUMMARY | 2024-02-25 16:17 | External Medical Summary | Summary of Care ---
Author Name Unknown Organization [facility] Address [address] [place] [address] Phone [phone] Care Team Providers Care Bacteriologist Food Name Role Phone Kelsey PIERRE MD, John E Primary Care Provider Encounter Details Date Type Department Care Team (Late st Contact Info) Description 10/30/2023 [facility] [place] [address] [place] [address] Fadi Cole III, MD [address] [facility] [place] [address] Allergies No known active allergiesdocumented as of [...] Description 10/31/2023 10:20 AM EDT Office Visit [facility] [address] [place] [address] [place] [address] Fadi Cole III, MD [address] [place] [address] 11/20/2023 3:15 PM EDT Imaging Radiology [facility], [address] [place] [address] Health Maintenance Due Date Last Done Comments [...] 2017 LUNG CANCER SCREENING - USE SMARTSET 17923 2022 Zoster Vaccines (1 of 2) 2022 [...] Procedure Name Priority Date/Time Associated Diagnosis Comments XR CHEST 1 VIEW Routine 08/09/2023 documented in this encounter Results * XR CHEST 1 VIEW (08/09/2023) Anatomical Region Laterality Modality Chest Other 08/09/2023 History Per Patient RADIOLOGY (RAD GENER AL) documented in this encounter Care Teams Bacteriologist Food Relationship Specialty Start Date End Date Fadi Cole III, MD [address] [place], [place] [address] PCP - General Family Medicine 10/20/23 documented as of this encounter
--- OUTSIDE RECORDS SUMMARY | 2024-02-25 16:17 | External Medical Summary | Summary of Care ---
Author Name Unknown Organization [facility] Address [address] [facility] [place] [address] Phone [phone] Care Team Providers Care Pit Furnace Operator Name Role Phone Unavailable Primary Care Provider Unavailabl e Encounter Details Date Type Department Care Team (Late Contact Info) Description 10/19/2023 Orders Only PATIENT PORTAL DO NOT DELETE THIS DEPT USED BY [place] [id number] Allergies No known active allergiesdocumented as of this encounter (statuses as of 10/19/2023) Medications No known medicationsdocumented as of this encounter (statuses as of 10/19/2023) Social History Tobacco Use Types Packs/Day Years [...] Encounters Date Type Department Care Team (Late Contact Info) Description 10/31/2023 10:20 AM EDT Office Visit Family Practice [address] [place] [place] [address] [place] [address] Fadi Cole III, MD [address] [place] [address] Health Maintenance Due Date Last Done Comments [...] 2017 LUNG CANCER SCREENING - USE SMARTSET [id number] 2022 Zoster Vaccines (1 of 2) 2022 [...]
--- OUTSIDE RECORDS SUMMARY | 2024-02-25 16:17 | External Medical Summary | Summary of Care ---
Author Name Unknown Organization [facility] Address [address] [facility] [place] [address] Phone [phone] Care Team Providers Care Edge Drummer Name Role Phone Unavailable Primary Care Provider Unavailabl e Reason for Referral * Precert (Within 10 days (routine)) - Pending Review Specialty Diagnoses / Procedures Referred By Rick rodriguez Referred To Contact Radiology Diagnoses Abnormal CT scan, kidney Procedures MRI ABDOMEN W WO CONTRAST Lan Gilliland III, MD [address] [facility] [place] [address] Referral ID Status Reason Start Date Expiration Date V isits Requested Visits Authorized [id number] Pending Review 10/19/2023 999 999 Reason for Visit * Reason Onset Date Comments Test Results 10/17/2023 Unexpected or In determinate Result Encounter Details Date Type Department Care Team (Late st Contact Info) Description 10/17/[address] [facility] [address] [facility] [place] [address] Lan Gilliland III, MD 200 [place] [address] Test Results (Unexpected or Indeterminate ... Allergies [...] encounter Miscellaneous Notes * Addendum Note - Lan Gilliland III, MD - 10/18/2023 8:08 AM EDTAddended by: LAN GILLILAND on: 10/18/2023 08:08 AM Modules accepted: Orders * Telephone Encounter - Lan Gilliland III, MD - 10/18/2023 8:02 AM EDT Noted * Telephone Encounter - Sulma Adrian OSA - 10/17/2023 3:19 PM EDT Hello- The radiologist discovered an unexpected or indeterminate finding on Santiago Amador ([id number]) and asks that you review the following [...] reviewed. Thank you, EMERSON Bowling Client Service [facility] documented in this encounter Plan of Treatment Scheduled Orders Name Type Priority Associated Diagnoses Orde r Schedule MRI ABDOMEN W WO CONTRAST Medical Imaging Routine Abnormal CT scan, kidney Expected: 10/19/2023, Expires: 11/17/2024 Health Maintenance Due Date Last Done Comments [...] 2017 LUNG CANCER SCREENING - USE SMARTSET 48958 2022 Zoster Vaccines (1 of 2) 2022 [...] as of this encounter Visit Diagnoses Diagnosis Abnormal CT scan, kidney- Primary Nonspecific (abnormal) findings on radiological and other examination of genitourinary organs documented in this encounter
--- OUTSIDE RECORDS SUMMARY | 2024-02-25 16:17 | External Medical Summary ---
Author Name Unknown Address Unknown Organization K01:LABORATORY [facility] - [address] [facility] [place] [address] Laboratory Report Ordering Provider Test Date Status TALAT MONTENEGRO III 11/09/2023 10:47:01 Final Observation Date Value Abnormality Reference (Units) Status HFE gene targeted mutation analysis in Blood or Tissue by Molecular genetics method 11/09/2023 10:47:01 Not Detected Not Detected Final Molecular diagnostic overall interpretation [Presence] in Blood or Tissue by Molecular genetics method 11/09/2023 10:47:01 No HFE C282Y, H63D or S65C mutation is detected in this sample. Final Molecular diagnostic overall interpretation [Presence] in Blood or Tissue by Molecular genetics method 11/09/2023 10:47:01 Final Molecular diagnostic overall interpretation [Presence] in Blood or Tissue by Molecular genetics method 11/09/2023 10:47:01 The methodology of this assay is real-time PCR. This result suggests a low risk for either a diagnosis of or predisposition for hereditary hemochromatosis (HH), however, the diagnosis of HH cannot be excluded as 5 to 8% of the patients with HH in the [place]- population do not carry these mutations. This test also does not rule out the presence of rare disease-causing mutations in other regions of the HFE gene or in other genes associated with hemochromatosis. Therefore, these findings should be interpreted in the context of the clinical presentation and results of other laboratory tests (e.g., serum transferrin-iron saturation and serum ferritin). If this molecular testing is being performed for a possible diagnosis of HH, or for carrier testing, the interpretation of this result should depend on the family history and genotype of the affected individuals. Final Additional comments [RFC] 11/09/2023 10:47:01 The performance characteristics of this assay have been validated by the Molecular Diagnostics Laboratory at [facility]. It has not been cleared or approved by the FDA. The laboratory is regulated under CLIA as qualified to perform high complexity testing. This test is used for clinical purposes. It should not be regarded as investigational or for research. Final Additional comments [RFC] 11/09/2023 10:47:01 Final Additional comments [RFC] 11/09/2023 10:47:01 Ref: Hayley KV, Bryan KE, Leandro J, Fernando V. JD [facility] Clinical Guideline: Hereditary Hemochromatosis. Am J Gastroenterol. 2019;114(8):2959-8456 . Final Additional comments [RFC] 11/09/2023 10:47:01 Final Pathologist review of results 11/09/2023 10:47:01 Dr. Shannan Hollingsworth Final Performing Location LABORATORY [facility] - [facility] [address] [place]. [facility] [address]
--- OUTSIDE RECORDS SUMMARY | 2024-02-25 16:17 | External Medical Summary ---
Author Name Unknown Address Unknown Organization [id number]:LABORATORY [facility] [place] [address] - [address] [place] [address] Laboratory Report Ordering Provider Test Date Status THAI MCLEAN 10/17/2023 14:22:40 Final Observation Date Value Abnormality Reference (Units ) Status Bilirubin, Direct 10/17/2023 14:22:40 0.7 Above high normal 0.0-0.3 (mg/dL) Final Performing Location LAB[facility]ATORY [facility] [place] [address] - [address] [place] [address]
--- OUTSIDE RECORDS SUMMARY | 2024-02-25 16:17 | External Medical Summary ---
Author Name Unknown Address Unknown Organization K01:[facility] - [address] [place] [address] Laboratory Report Ordering Provider Test Date Status THAI MCLEAN 10/17/2023 14:22:40 Final Observation Date Value Abnormality Reference (Units ) Status LDH 10/17/2023 14:22:40 137 <=250 (U/L ) Final Performing Location [facility] - [address] [place] [address]
--- OUTSIDE RECORDS SUMMARY | 2024-02-25 16:17 | External Medical Summary ---
Author Name Unknown Address Unknown Organization K01:[facility] - [address] [facility] [address] [place] [address] Laboratory Report Ordering Provider Test Date Status TALAT MONTENEGRO III 10/17/2023 14:22:40 Final Observation Date Value Abnormality Reference (Units ) Status Magnesium 10/17/2023 14:22:40 1.5 1.5-2.6 (m g/dL) Final Performing Location [facility] - [address] [place] [address]
--- NOTE | 2024-02-25 16:30 | Emergency Department Note ---
Impression & Plan Sepsis, Multifocal pneumonia, Abdominal ascites, Alcoholic cirrhosis of liver with ascites, Metabolic encephalopathy, Hyponatremia, Hypomagnesemia, Symptomatic anemia ED Provider Note NAME: INDERJIT LO AGE: 53 SEX: M : 1970 ARRIVES VIA: Ambulance INFORMANT: Patient ED PROVIDER(S): Garfield Haddad MD CHIEF COMPLAINT: AMS PLAN: Disposition: Admit MEDICAL DECISION MAKING: The patient is a 53-year-old gentleman with a past medical history of alcoholic liver cirrhosis who presents to the emergency department via EMS for altered mental status with unresponsiveness that happened abruptly per EMS report when he was sitting in his zero gravity chair at his sister's home where he lives. Details of the patient's recent health are not available. Patient is a poor historian. On evaluation the patient is ill-appearing but no acute distress, febrile with temperature of 39.3 and heart rate in the 100s and vital signs otherwise stable. Patient appears hypervolemic with 3+ bilateral extremity pitting edema with mild light blanchable erythema bilaterally without warmth or tenderness. Patient has wheezes and rhonchi of the mid to lower lung hare bilaterally. Patient has severely distended abdomen but is not tense and it is nontender. EKG without overt acute ischemia. Chest x-ray with suspicion for multifocal pneumonia per my preliminary independent interpretation. WBC 12 K with neutrophil predominance but no left shift. Hemoglobin and hematocrit are low at 5.6 and 16.5 and was confirmed on repeat lab draw. MCV 98. Down from a hemoglobin of 8 in July. Patient consented for blood transfusion with 3 units of PRBCs ordered and 2 units to transfer immediately. Platelets are within normal limits. INR is 1.3. VBG is unremarkable. Chemistry without metabolic acidosis. Sodium is 128 and creatinine is 2.69 which are new from July. Initial lactic acid 3.5 with repeat 3.3 however without IV fluid hydration due to hypervolemic appearance. Magnesium is 1.2. Iron is within normal limits. Total bilirubin is 2.2 with direct bilirubin 0.9 and AST 45 in setting of history of alcoholic cirrhosis and are similar to/improved from July of this year. Initial high-sensitivity troponin is 35, nonspecific with delta 3 hour HS troponin 42.9, not significantly changed. BNP is elevated at 648, consistent with patient's hypervolemia. Procalcitonin is elevated 2.2 consistent with suspicion for sepsis/infection. UA is without evidence of infection. Respiratory BioFire was negative. CT of the head was negative for acute abnormality. CT of the chest and abdomen pelvis were also performed. Note is made of multifocal pneumonia. Varicosities noted in the distal esophagus. No acute findings otherwise. Patient was treated empirically with IV cefepime on arrival due to septic presentation. 30cc/kg of IVF deferred and patient was administered only 250 cc of fluid and 2 units of PRBCs due to hypervolemic appearance. [facility] the patient for [facility]. Of note, patient was developing respiratory failure with blood transfusion in the setting of his acute renal failure. He was placed on BiPAP with stabilization of his respiratory status. Subsequently, paracentesis was performed and 6 L of yellow cloudy fluid was obtained and patient tolerated this well with improved respiratory status and abdominal discomfort. Studies were sent for cell counts and culture. Admitting team updated. Further management per admitting team. Gram stain of ascites fluid was negative. Cell count is not suggestive of SBP at this time with WBCs 48 and neutrophils 38% only. Triage Nursing notes reviewed and agree them. Prior/external medical records reviewed Vital Signs: reviewed Differential diagnosis: Infection, hypoglycemia, electrolyte abnormalities, overdose, toxicologic, cardiac sources, intracerebral event, neurologic, trauma, as well as other pathologies. ER treatment provided: See below. Diagnostics interpreted by me: ECG: Normal sinus rhythm, 96 bpm, no ectopy, no overt ST elevation or depression, QTc 404, QRS 88. Cardiac Monitoring: An order for continuous cardiac monitoring was placed and demonstrated Normal sinus rhythm, 96 bpm, no ectopy. Laboratory studies: See below Imaging studies: See below Consultation(s): [facility] will [facility] the patient for admission. HPI: The patient is a 53-year-old gentleman with a past medical history of alcoholic liver cirrhosis who presents to the emergency department via EMS for altered mental status with unresponsiveness that happened abruptly per EMS report when he was sitting in his zero gravity chair at his sister's home where he lives. Details of the patient's recent health are not available. Patient is a poor historian. ROS: See above HPI for pertinent positives & negatives. A total of 10 systems reviewed and were otherwise negative. VITALS:See Below PHYSICAL EXAMINATION: GENERAL: Awake, alert, ill-appearing, in no distress HENT: Normocephalic, atraumatic. Oropharynx unremarkable. EYES: Normal conjunctiva. Sclera non-icteric. NECK: Supple. No nuchal rigidity. FROM. No JVD. RESPIRATORY: Wheezes and rhonchi bilateral mid to lower lung hare. CARDIAC: Tachycardic rate, normal rhythm. Extremities warm and well perfused. Pulses equal. ABDOMEN: Severely distended but not tense. No tenderness to palpation. MUSCULOSKELETAL: Chest examination reveals no tenderness. The back is symmetrical on inspection without obvious abnormality. There is no CVA tenderness to palpation. No joint edema. LOWER EXTREMITIES: Calves are equal size bilaterally and non-tender. 3+ BLE pitting edema. Blanchable light erythema bilaterally without warmth or tenderness. NEURO: Confused. Poor attention. Moving all extremities equally with generalized weakness with 4+/5 strength and SILT x 4 extremities. SKIN: No rash or jaundice noted. ED COURSE: Procedures: Paracentesis Indication: Ascites Verbal consent was obtained after the risks and benefits were explained. The patient was placed in the supine position and the RLQ abdomen was prepped with chlorhexadine and draped in the standard fashion. Site was anesthetized locally with 1% lidocaine without epinephrine. Paracentesis needle was carefully advanced into peritoneal cavity. Yellow-clear fluid was obtained and the pigtail catheter was advanced while the needle was withdrawn. 6L of yellow cloudy fluid was obtained and sent for studies. A bandaid was placed. The patient tolerated the procedure well and there were no complications. Critical Care: I have personally spent greater than 95 minutes of critical care time in the direct management of this patient. This includes bedside care, interpretation of diagnostic studies, and testing, discussion with consultants, patient, and family members, and other required patient management activities. This 95 minutes is in excess of all separately billable procedures. Garfield Haddad MD Past Med/Surg History Problem List (Updated 02/26/24 @ 00:32 by Garfield Haddad MD) Symptomatic anemia (Acute) Metabolic encephalopathy (Acute) Alcoholic cirrhosis of liver with ascites (Acute) Abdominal ascites (Acute) Fall (Acute) Blunt trauma of nose Blunt trauma of face Alcohol use (Acute) Hypoxia (Acute) Pancytopenia (Acute) Influenza A (Acute) Tobacco use Hypomagnesemia (Acute) Hyponatremia (Acute) Hypokalemia (Acute) Multifocal pneumonia (Acute) Sepsis (Acute) Encounter for pre-operative examination Medical History Homeless Current every day smoker Patient denies significant medical history Surgical History S/P cataract extraction right eye History of tonsillectomy History of hernia surgery INFANCY Family History Mother Stroke Diabetes Other Colorectal cancer Heart disease Social History Smoking Status: Current every day smoker Tobacco Type: Cigarettes Cigarettes Per Day: 5-6; Second Hand Exposure: Yes; Do You Dip or Chew Tobacco: No; Tobacco Cessation Education Requested by Patient: No Hx Alcohol Use: Yes Alcohol type: beer and wine Hx Substance Use: No Preferred Language: Tuvaluan Communication Ability: Effective Orchestra Teacher Required: No Beliefs That Will Affect Care: None Current Living Situation: Other Current Living Situation Comment: Lives with Friend in an apartment Other Information That Helps Us Care for You: No Feels Safe at Home: Yes Safety Concerns: Feels Safe At This Time Assistive Devices: Glasses and Walker Allergies Allergies Allergy/AdvReac Type Severity Reaction Status Date / Time Penicillins Allergy Unknown PT WOULD Verified 02/25/24 19:50 NOT SAY WHAT HIS REACTION WAS. Home Meds Previous Rx's Medication Instructions Recorded folic acid 1 mg tablet 1 mg PO DAILY #30 tabs 08/15/23 Results & Data (ED) Vital Signs Vital Signs - 24 hr 02/25/24 16:13 02/25/24 16:30 02/25/24 18:00 Temperature 39.3 C H Temperature Source Oral Pulse Rate 108 H 109 H Pulse Rate [Left Finger] 117 H Respiratory Rate 14 20 Respiratory Effort / Characteristics Non-Labored Spontaneous Respiratory Depth Normal Respiratory Pattern Regular Blood Pressure 129/71 Blood Pressure [Left Arm] 132/99 Blood Pressure Mean 90 Blood Pressure Mean [Left Arm] 110 Blood Pressure Position Sitting Blood Pressure Position [Left Arm] Sitting Pulse Oximetry 94 96 Oxygen Delivery Method Room Air Room Air Sepsis Recent Fever Within 48 Hours Yes Sepsis New/Unexplained Change in Mental Status Yes Sepsis Action Taken by Nursing Physician Notified 02/25/24 18:31 02/25/24 18:32 02/25/24 18:46 Temperature 37.6 C H 37.6 C H Temperature Source Oral Oral Pulse Rate 112 H 103 H Pulse Rate [Left Finger] Respiratory Rate 22 20 Respiratory Effort / Characteristics Respiratory Depth Respiratory Pattern Blood Pressure 131/68 113/55 L Blood Pressure [Left Arm] Blood Pressure Mean 89 74 Blood Pressure Mean [Left Arm] Blood Pressure Position Blood Pressure Position [Left Arm] Pulse Oximetry 95 92 Oxygen Delivery Method Sepsis Recent Fever Within 48 Hours Sepsis New/Unexplained Change in Mental Status Sepsis Action Taken by Nursing 02/25/24 19:02 02/25/24 19:24 02/25/24 19:31 Temperature 38.2 C H 37.9 C H Temperature Source Oral Pulse Rate 101 H 154 H 154 H Pulse Rate [Left Finger] Respiratory Rate 24 26 H Respiratory Effort / Characteristics Respiratory Depth Respiratory Pattern Blood Pressure 97/62 L 121/66 Blood Pressure [Left Arm] Blood Pressure Mean 73 84 Blood Pressure Mean [Left Arm] Blood Pressure Position Blood Pressure Position [Left Arm] Pulse Oximetry 92 97 Oxygen Delivery Method Room Air Sepsis Recent Fever Within 48 Hours Sepsis New/Unexplained Change in Mental Status Sepsis Action Taken by Nursing 02/25/24 19:32 02/25/24 19:42 02/25/24 20:00 Temperature 37.9 C H Temperature Source Oral Pulse Rate 158 H 155 H 99 H Pulse Rate [Left Finger] Respiratory Rate 24 22 22 Respiratory Effort / Characteristics Respiratory Depth Respiratory Pattern Blood Pressure 121/66 92/63 L 92/60 L Blood Pressure [Left Arm] Blood Pressure Mean 84 72 75 Blood Pressure Mean [Left Arm] Blood Pressure Position Lying Blood Pressure Position [Left Arm] Pulse Oximetry 95 94 95 Oxygen Delivery Method Sepsis Recent Fever Within 48 Hours Sepsis New/Unexplained Change in Mental Status Sepsis Action Taken by Nursing 02/25/24 20:14 02/25/24 20:15 02/25/24 20:19 Temperature Temperature Source Pulse Rate 152 H 102 H Pulse Rate [Left Finger] 97 H Respiratory Rate 22 20 Respiratory Effort / Characteristics Spontaneous Respiratory Depth Respiratory Pattern Blood Pressure 113/62 113/62 Blood Pressure [Left Arm] Blood Pressure Mean 84 Blood Pressure Mean [Left Arm] Blood Pressure Position Blood Pressure Position [Left Arm] Pulse Oximetry 95 95 Oxygen Delivery Method Room Air Sepsis Recent Fever Within 48 Hours Sepsis New/Unexplained Change in Mental Status Sepsis Action Taken by Nursing 02/25/24 20:20 Temperature Temperature Source Pulse Rate 99 H Pulse Rate [Left Finger] Respiratory Rate 24 Respiratory Effort / Characteristics Respiratory Depth Respiratory Pattern Blood Pressure 106/82 Blood Pressure [Left Arm] Blood Pressure Mean 92 Blood Pressure Mean [Left Arm] Blood Pressure Position Blood Pressure Position [Left Arm] Pulse Oximetry 100 Oxygen Delivery Method Sepsis Recent Fever Within 48 Hours Sepsis New/Unexplained Change in Mental Status Sepsis Action Taken by Nursing Laboratory Data Attestation: I reviewed the patient's lab results. 02/25/24 17:06 02/25/24 22:36 Lab Results 02/25/24 02/25/24 02/25/24 Range/Units 16:14 16:18 16:35 WBC 12.14 H (4.8-10.8) K/ul RBC 1.67 L (4.70-6.10) M/uL Hgb 5.5 L* (14.0-18.0) g/dl POC Hgb (14.0-18.0) g/dl Hct 16.5 L* (42.0-52.0) % POC Hct (42-52) % MCV 98.8 (80.0-100.0) fL MCH 32.9 (25.0-34.0) pg MCHC 33.3 (32.0-36.0) g/dL RDW Std Deviation 59.8 H (36.4-46.3) fL RDW Coeff of Ham 16.7 H (11.5-14.5) % Plt Count 169 (130-400) K/uL MPV 10.4 (9.4-12.4) fL Immature Gran % (Auto) 0.5 % Neut % (Auto) 93.1 % Lymph % (Auto) 3.5 % [place] % (Auto) 2.5 % Eos % (Auto) 0.3 % Baso % (Auto) 0.1 % Reticulocyte % (Auto) 4.48 H (0.50-2.00) % Neut # (Auto) 11.31 H (1.40-6.50) K/uL Lymph # (Auto) 0.42 L (1.20-3.40) K/uL [place] # (Auto) 0.30 (0.11-0.59) K/uL Eos # (Auto) 0.04 (0.00-0.50) K/uL Baso # (Auto) 0.01 (0.00-0.20) K/uL Reticulocyte # 0.070 (0.020-0.100) 10^6/uL Immature Gran # (Auto) 0.06 (0.01-0.20) K/uL Polychromasia 1+ PT 14.1 H (9.0-12.0) Seconds INR 1.3 H (0.9-1.1) VBG pH 7.41 (7.36-7.41) VBG pCO2 32 L (38-50) mmHg VBG pO2 30 mmHg VBG HCO3 20 mmol/L VBG O2 Saturation < 60.0 % VBG Base Excess -3.4 mEq/L POC Sodium (135-144) mmol/L Sodium 128 L (136-145) mmol/L POC Potassium (3.3-5.0) mmol/L Potassium 5.3 H (3.5-5.1) mmol/L POC Chloride (101-112) mmol/L Chloride 98 (98-107) mmol/L Carbon Dioxide 21 (21-32) mmol/L POC Total CO2 (24-31) mmol/L Anion Gap 9 (3-11) POC Anion Gap (16-25) mmol/L POC BUN (7-18) mg/dl BUN 46 H (6-23) mg/dl Creatinine 2.69 H (0.6-1.4) mg/dl POC Creatinine (0.6-1.3) mg/dl Est Cr Clr Drug Dosing 43.0 ml/min Est GFR ( Amer) 30.4 ml/min Est GFR (Non-Af Amer) 26.2 ml/min BUN/Creatinine Ratio 17.1 (10-20) Glucose 115 H (70-99(Fasting)) mg/dl POC Glucose 123 H (70-99) mg/dl POC Glucose (other) (70-99) mg/dl Lactate 3.5 H* (0.4-2.0) mmol/L Calcium 8.0 L (8.6-10.3) mg/dl POC Ioniz Calcium Raymundo (1.12-1.32) mmol/l Phosphorus 3.3 (2.5-4.9) mg/dl Magnesium 1.2 L (1.7-2.4) mg/dl Iron 43 (35-175) mcg/dl Unsaturated IBC 66 L (155-355) mcg/dl Transferrin < 95 L (200-360) mg/dl Ferritin 1018.3 H (8-388) ng/ml Total Bilirubin 2.2 H (0.2-1.0) mg/dl Direct Bilirubin 0.9 H (0-0.2) mg/dl AST 45 H (13-39) U/L ALT 18 (7-52) U/L Alkaline Phosphatase 54 (34-104) U/L Ammonia 53.0 (18-72) umol/L Troponin I High Sens 37.2 H (0-20) pg/ml B-Natriuretic Peptide 648 H (0-100) pg/ml Total Protein 7.2 (6.0-8.3) gm/dl Albumin 2.3 L (3.4-5.0) gm/dl Vitamin B12 1020 H (180-914) pg/ml Folate > 22.30 (>5.38) ng/ml Procalcitonin 2.21 H (0-0.5) ng/ml TSH 2.555 (0.300-4.500) uIu/ml Nasal Screen MRSA (PCR) (Negative) Adenovirus (PCR) (NotDetected) B. pertussis DNA (PCR) (NotDetected) B.parapertussis DNA PCR (NotDetected) C. pneumoniae DNA (PCR) (NotDetected) Coronavirus OC43 (PCR) (NotDetected) Coronavirus HKU1 (PCR) (NotDetected) Coronavirus 229E (PCR) (NotDetected) SARS-CoV-2 (PCR) (NotDetected) Coronavirus NL63 (PCR) (NotDetected) Human Metapneumovir PCR (NotDetected) Influenza Type A (PCR) (NotDetected) Influenza Type B (PCR) (NotDetected) M. pneumoniae (PCR) (NotDetected) Parainfluenza 1 (PCR) (NotDetected) Parainfluenza 2 (PCR) (NotDetected) Parainfluenza 3 (PCR) (NotDetected) Parainfluenza 4 (PCR) (NotDetected) RSV (PCR) (NotDetected) Entero/Rhino (PCR) (NotDetected) Blood Type Blood Type Recheck Antibody Screen Crossmatch 02/25/24 02/25/24 02/25/24 Range/Units 16:44 16:53 17:06 WBC (4.8-10.8) K/ul RBC (4.70-6.10) M/uL Hgb 5.6 L* (14.0-18.0) g/dl POC Hgb 7.1 L (14.0-18.0) g/dl Hct 16.5 L* (42.0-52.0) % POC Hct 21 L (42-52) % MCV (80.0-100.0) fL MCH (25.0-34.0) pg MCHC (32.0-36.0) g/dL RDW Std Deviation (36.4-46.3) fL RDW Coeff of Ham (11.5-14.5) % Plt Count (130-400) K/uL MPV (9.4-12.4) fL Immature Gran % (Auto) % Neut % (Auto) % Lymph % (Auto) % [place] % (Auto) % Eos % (Auto) % Baso % (Auto) % Reticulocyte % (Auto) (0.50-2.00) % Neut # (Auto) (1.40-6.50) K/uL Lymph # (Auto) (1.20-3.40) K/uL [place] # (Auto) (0.11-0.59) K/uL Eos # (Auto) (0.00-0.50) K/uL Baso # (Auto) (0.00-0.20) K/uL Reticulocyte # (0.020-0.100) 10^6/uL Immature Gran # (Auto) (0.01-0.20) K/uL Polychromasia PT (9.0-12.0) Seconds INR (0.9-1.1) VBG pH (7.36-7.41) VBG pCO2 (38-50) mmHg VBG pO2 mmHg VBG HCO3 mmol/L VBG O2 Saturation % VBG Base Excess mEq/L POC Sodium 131 L (135-144) mmol/L Sodium (136-145) mmol/L POC Potassium 5.4 H (3.3-5.0) mmol/L Potassium (3.5-5.1) mmol/L POC Chloride 98 L (101-112) mmol/L Chloride (98-107) mmol/L Carbon Dioxide (21-32) mmol/L POC Total CO2 19 L (24-31) mmol/L Anion Gap (3-11) POC Anion Gap 20.0 (16-25) mmol/L POC BUN 39 H (7-18) mg/dl BUN (6-23) mg/dl Creatinine (0.6-1.4) mg/dl POC Creatinine 2.9 H (0.6-1.3) mg/dl Est Cr Clr Drug Dosing ml/min Est GFR ( Amer) ml/min Est GFR (Non-Af Amer) ml/min BUN/Creatinine Ratio (10-20) Glucose (70-99(Fasting)) mg/dl POC Glucose (70-99) mg/dl POC Glucose (other) 116 H (70-99) mg/dl Lactate (0.4-2.0) mmol/L Calcium (8.6-10.3) mg/dl POC Ioniz Calcium [place] 1.08 L (1.12-1.32) mmol/l Phosphorus (2.5-4.9) mg/dl Magnesium (1.7-2.4) mg/dl Iron (35-175) mcg/dl Unsaturated IBC (155-355) mcg/dl Transferrin (200-360) mg/dl Ferritin (8-388) ng/ml Total Bilirubin (0.2-1.0) mg/dl Direct Bilirubin (0-0.2) mg/dl AST (13-39) U/L ALT (7-52) U/L Alkaline Phosphatase (34-104) U/L Ammonia (18-72) umol/L Troponin I High Sens (0-20) pg/ml B-Natriuretic Peptide (0-100) pg/ml Total Protein (6.0-8.3) gm/dl Albumin (3.4-5.0) gm/dl Vitamin B12 (180-914) pg/ml Folate (>5.38) ng/ml Procalcitonin (0-0.5) ng/ml TSH (0.300-4.500) uIu/ml Nasal Screen MRSA (PCR) Negative (Negative) Adenovirus (PCR) Not Detected (NotDetected) B. pertussis DNA (PCR) Not Detected (NotDetected) B.parapertussis DNA PCR Not Detected (NotDetected) C. pneumoniae DNA (PCR) Not Detected (NotDetected) Coronavirus OC43 (PCR) Not Detected (NotDetected) Coronavirus HKU1 (PCR) Not Detected (NotDetected) Coronavirus 229E (PCR) Not Detected (NotDetected) SARS-CoV-2 (PCR) Not Detected (NotDetected) Coronavirus NL63 (PCR) Not Detected (NotDetected) Human Metapneumovir PCR Not Detected (NotDetected) Influenza Type A (PCR) Not Detected (NotDetected) Influenza Type B (PCR) Not Detected (NotDetected) M. pneumoniae (PCR) Not Detected (NotDetected) Parainfluenza 1 (PCR) Not Detected (NotDetected) Parainfluenza 2 (PCR) Not Detected (NotDetected) Parainfluenza 3 (PCR) Not Detected (NotDetected) Parainfluenza 4 (PCR) Not Detected (NotDetected) RSV (PCR) Not Detected (NotDetected) Entero/Rhino (PCR) Not Detected (NotDetected) Blood Type A Negative Blood Type Recheck Antibody Screen NEGATIVE Crossmatch See Detail 02/25/24 02/25/24 Range/Units 17:23 19:18 WBC (4.8-10.8) K/ul RBC (4.70-6.10) M/uL Hgb (14.0-18.0) g/dl POC Hgb (14.0-18.0) g/dl Hct (42.0-52.0) % POC Hct (42-52) % MCV (80.0-100.0) fL MCH (25.0-34.0) pg MCHC (32.0-36.0) g/dL RDW Std Deviation (36.4-46.3) fL RDW Coeff of Ham (11.5-14.5) % Plt Count (130-400) K/uL MPV (9.4-12.4) fL Immature Gran % (Auto) % Neut % (Auto) % Lymph % (Auto) % [place] % (Auto) % Eos % (Auto) % Baso % (Auto) % Reticulocyte % (Auto) (0.50-2.00) % Neut # (Auto) (1.40-6.50) K/uL Lymph # (Auto) (1.20-3.40) K/uL [place] # (Auto) (0.11-0.59) K/uL Eos # (Auto) (0.00-0.50) K/uL Baso # (Auto) (0.00-0.20) K/uL Reticulocyte # (0.020-0.100) 10^6/uL Immature Gran # (Auto) (0.01-0.20) K/uL Polychromasia PT (9.0-12.0) Seconds INR (0.9-1.1) VBG pH (7.36-7.41) VBG pCO2 (38-50) mmHg VBG pO2 mmHg VBG HCO3 mmol/L VBG O2 Saturation % VBG Base Excess mEq/L POC Sodium (135-144) mmol/L Sodium (136-145) mmol/L POC Potassium (3.3-5.0) mmol/L Potassium (3.5-5.1) mmol/L POC Chloride (101-112) mmol/L Chloride (98-107) mmol/L Carbon Dioxide (21-32) mmol/L POC Total CO2 (24-31) mmol/L Anion Gap (3-11) POC Anion Gap (16-25) mmol/L POC BUN (7-18) mg/dl BUN (6-23) mg/dl Creatinine (0.6-1.4) mg/dl POC Creatinine (0.6-1.3) mg/dl Est Cr Clr Drug Dosing ml/min Est GFR ( Amer) ml/min Est GFR (Non-Af Amer) ml/min BUN/Creatinine Ratio (10-20) Glucose (70-99(Fasting)) mg/dl POC Glucose (70-99) mg/dl POC Glucose (other) (70-99) mg/dl Lactate 3.3 H* (0.4-2.0) mmol/L Calcium (8.6-10.3) mg/dl POC Ioniz Calcium [place] (1.12-1.32) mmol/l Phosphorus (2.5-4.9) mg/dl Magnesium (1.7-2.4) mg/dl Iron (35-175) mcg/dl Unsaturated IBC (155-355) mcg/dl Transferrin (200-360) mg/dl Ferritin (8-388) ng/ml Total Bilirubin (0.2-1.0) mg/dl Direct Bilirubin (0-0.2) mg/dl AST (13-39) U/L ALT (7-52) U/L Alkaline Phosphatase (34-104) U/L Ammonia (18-72) umol/L Troponin I High Sens 42.9 H (0-20) pg/ml B-Natriuretic Peptide (0-100) pg/ml Total Protein (6.0-8.3) gm/dl Albumin (3.4-5.0) gm/dl Vitamin B12 (180-914) pg/ml Folate (>5.38) ng/ml Procalcitonin (0-0.5) ng/ml TSH (0.300-4.500) uIu/ml Nasal Screen MRSA (PCR) (Negative) Adenovirus (PCR) (NotDetected) B. pertussis DNA (PCR) (NotDetected) B.parapertussis DNA PCR (NotDetected) C. pneumoniae DNA (PCR) (NotDetected) Coronavirus OC43 (PCR) (NotDetected) Coronavirus HKU1 (PCR) (NotDetected) Coronavirus 229E (PCR) (NotDetected) SARS-CoV-2 (PCR) (NotDetected) Coronavirus NL63 (PCR) (NotDetected) Human Metapneumovir PCR (NotDetected) Influenza Type A (PCR) (NotDetected) Influenza Type B (PCR) (NotDetected) M. pneumoniae (PCR) (NotDetected) Parainfluenza 1 (PCR) (NotDetected) Parainfluenza 2 (PCR) (NotDetected) Parainfluenza 3 (PCR) (NotDetected) Parainfluenza 4 (PCR) (NotDetected) RSV (PCR) (NotDetected) Entero/Rhino (PCR) (NotDetected) Blood Type Blood Type Recheck A Negative Antibody Screen Crossmatch Administered Medications Magnesium Sulfate/Dextrose (Magnesium Sulfate / D5w) 1 gm in 100 mls @ 50 mls/hr IV Q2H GAIL Stop: 02/26/24 01:59 Last Admin: 02/25/24 23:38 Dose: 50 mls/hr Documented By: Infusion: 02/25/24 23:38 Dose: Infused Documented By: Admin: 02/25/24 21:42 Dose: 50 mls/hr Documented By: ALEX Discontinued Medications Gabapentin (Gabapentin 600 Mg Tab) 600 mg PO NOW STA Stop: 02/25/24 21:13 Last Admin: 02/25/24 23:38 Dose: Not Given Documented By: RIGOBERTO Acetaminophen 650 mg/ EMPTY (BAG) 65 mls @ 260 mls/hr IV NOW STA Stop: 02/25/24 16:28 Last Infusion: 02/25/24 18:13 Dose: Infused Documented By: Admin: 02/25/24 18:13 Dose: 260 mls/hr Documented By: CATINA Sodium Chloride (Nss) 1,000 mls @ 999 mls/hr IV .Q1H1M ONE Stop: 02/25/24 17:28 Last Admin: 02/25/24 16:56 Dose: 200 mls/hr Documented By: CATINA Cefepime HCl (Maxipime) 2,000 mg in 20 mls @ 5 mls/min IV NOW STA; Protocol Stop: 02/25/24 16:32 Last Admin: 02/25/24 16:43 Dose: 5 mls/min Documented By: ELVA Thiamine HCl 200 mg/ Sodium (Chloride) 52 mls @ 210 mls/hr IV NOW STA Stop: 02/25/24 17:03 Last Infusion: 02/25/24 18:28 Dose: Infused Documented By: Admin: 02/25/24 18:13 Dose: 210 mls/hr Documented By: CATINA Doxycycline Hyclate 100 mg/ (Dextrose) 100 mls @ 50 mls/hr IV NOW STA Stop: 02/25/24 21:09 Last Infusion: 02/25/24 21:39 Dose: Infused Documented By: Admin: 02/25/24 19:30 Dose: 50 mls/hr Documented By: RISA Albumin Human (Albumin 25%) 25 gm in 100 mls @ 50 mls/hr IV Q2H GAIL Stop: 02/25/24 23:58 Last Admin: 02/25/24 23:38 Dose: 50 mls/hr Documented By: Infusion: 02/25/24 23:38 Dose: Infused Documented By: Admin: 02/25/24 21:40 Dose: 50 mls/hr Documented By: ALEX Ertapenem (Invanz) 10 mls @ 2 mls/min IV NOW STA Stop: 02/25/24 20:10 Last Admin: 02/25/24 21:33 Dose: 2 mls/min Documented By: ALEX Pantoprazole Sodium 80 mg/ (Dextrose) 120 mls @ 480 mls/hr IV ONE STA Stop: 02/25/24 21:07 Last Infusion: 02/25/24 21:49 Dose: Infused Documented By: Admin: 02/25/24 21:34 Dose: 480 mls/hr Documented By: ALEX Ipratropium [place] (Ipratropium [place] Neb Soln 0.02% 0.5mg/2.5ml Vial) 0.5 mg INH NOW STA Stop: 02/25/24 20:54 Last Admin: 02/25/24 21:38 Dose: 0.5 mg Documented By: RITO Levalbuterol HCl (Levalbuterol Hcl 0.63 Mg/3 Ml Neb) 0.63 mg NEB NOW STA; Protocol Stop: 02/25/24 19:39 Last Admin: 02/25/24 20:14 Dose: 0.63 mg Documented By: RITO Levalbuterol HCl (Levalbuterol 1.25 Mg/3 Ml Neb) 1.25 mg NEB NOW STA Stop: 02/25/24 20:54 Last Admin: 02/25/24 21:33 Dose: Not Given Documented By: RITO Lorazepam (Lorazepam 1 Mg/1 Ml Syr Ed Inj Use) 1 mg IV ONE STA Stop: 02/25/24 19:37 Last Admin: 02/25/24 19:42 Dose: 1 mg Documented By: RIAS Metoprolol Tartrate (Metoprolol Tartrate 1 Mg/Ml Vial) 2.5 mg IV NOW STA Stop: 02/25/24 19:58 Last Admin: 02/25/24 20:19 Dose: 2.5 mg Documented By: [facility] Imaging Data Radiologist's Impression: Chest X-Ray 02/25/24 16:23 XR chest 1V portable HISTORY: 53 years-old Male Sepsis acute sepsis COMPARISON: 08/13/2023 TECHNIQUE: AP view the chest FINDINGS: Lungs are mildly hypoinflated. Cardiac silhouette is mildly enlarged. Atherosclerosis of the aorta. No pneumothorax or pleural effusion. Mild patchy bibasilar airspace opacities. Bones appear grossly intact. IMPRESSION: Hypoinflation with mild bibasilar densities which may represent atelectasis versus pneumonia. ACT 112: Negative or not required by law. The above report was generated using voice recognition software. It may contain grammatical, syntax or spelling errors. Electronically signed by: Colton Arango M.D. 02/25/2024 4:[address] 02/25/24 16:34 CT head/brain wo con CLINICAL HISTORY: 53 years-old Male with ams. Acutely altered mental status TECHNIQUE: Multiple axial CT images of the head were obtained without contrast. A dose lowering technique was utilized adhering to the principles of ALARA. COMPARISON: 08/09/2023 FINDINGS: Motion degraded exam. Involutional changes. No acute intracranial hemorrhage, midline shift, intracranial mass, hydrocephalus, territorial ischemia or abnormal extra-axial collection. The calvarium is intact. Prior bilateral lens are apparent. The paranasal sinuses, mastoid air cells, and middle ear cavities are clear. IMPRESSION: Motion degraded exam without acute intracranial abnormality identified. ACT 112: Negative or not required by law. The above report was generated using voice recognition software. It may contain grammatical, syntax or spelling errors. Electronically signed by: Colton Arango M.D. 02/25/2024 5:53 PM Abdomen/Pelvis CT 02/25/24 16:46 CT chest diagnostic wo con, CT abd pelvis wo con CT DOSE: 3077.74 mGy.cm CLINICAL HISTORY: 53 years-old Male with sepsis, sob, ascites, josea ngel. Acute sepsis with shortness of breath and abdominal pain TECHNIQUE: Multiaxial CT images of the chest, abdomen and pelvis were performed without contrast. A dose lowering technique was utilized adhering to the principles of ALARA. COMPARISON: 08/09/2023 FINDINGS: CT CHEST: Limited exam secondary to respiratory motion artifact, lack of contrast upper extremity positioning. Unremarkable thyroid. No pathologically enlarged lymph nodes. Mild generalized body wall edema. Heart is mildly enlarged. Decreased attenuation of the cardiac blood pool compatible with anemia. Moderate coronary artery calcifications. No thoracic aortic aneurysm. Trace right and small left pleural effusions. No pneumothorax. Pulmonary emphysema with bronchitis and mucous plugging. Mild patchy bilateral groundglass densities are most pronounced within the left lung. No acute fracture identified. Healing subacute nondisplaced fracture of the anterior right fifth rib. CT ABDOMEN/PELVIS: No free air. Extensive body wall edema. The unenhanced spleen, pancreas and adrenal glands are unremarkable. Hepatic steatosis with cirrhotic morphology. Cholelithiasis. Complex 3 cm cystic lesion with calcified septations within the inferior pole right kidney redemonstrated. There is no hydronephrosis. Decompressed urinary bladder with mild wall thickening. Small fat filled inguinal hernias. Atherosclerosis of the aorta. Borderline enlarged retroperitoneal lymph nodes measure up to 10 mm which are nonspecific. Mildly enlarged inguinal lymph nodes also present. Distal esophageal wall thickening. Large volume of abdominal pelvic ascites. Colonic diverticulosis. No small bowel obstruction. Small hiatal hernia. Varicosities noted near the distal esophagus. There is no acute fracture identified. IMPRESSION: 1. Mild multifocal pneumonia. 2. Cirrhosis with ascites, anasarca and small left pleural effusion. 3. Cholelithiasis. 4. Colonic diverticulosis. 5. Stable Bosniak IIF 3 cm cystic lesion of the right kidney. Six-month follow- up ultrasound recommended. 6. Additional findings as above. ACT 112: Negative or not required by law. Electronically signed by: Colton Arango M.D. 02/25/2024 6:[address] 02/25/24 16:46 CT chest diagnostic wo con, CT abd pelvis wo con CT DOSE: 3077.74 mGy.cm CLINICAL HISTORY: 53 years-old Male with sepsis, sob, ascites, jose angel. Acute sepsis with shortness of breath and abdominal pain TECHNIQUE: Multiaxial CT images of the chest, abdomen and pelvis were performed without contrast. A dose lowering technique was utilized adhering to the principles of ALARA. COMPARISON: 08/09/2023 FINDINGS: CT CHEST: Limited exam secondary to respiratory motion artifact, lack of contrast upper extremity positioning. Unremarkable thyroid. No pathologically enlarged lymph nodes. Mild generalized body wall edema. Heart is mildly enlarged. Decreased attenuation of the cardiac blood pool compatible with anemia. Moderate coronary artery calcifications. No thoracic aortic aneurysm. Trace right and small left pleural effusions. No pneumothorax. Pulmonary emphysema with bronchitis and mucous plugging. Mild patchy bilateral groundglass densities are most pronounced within the left lung. No acute fracture identified. Healing subacute nondisplaced fracture of the anterior right fifth rib. CT ABDOMEN/PELVIS: No free air. Extensive body wall edema. The unenhanced spleen, pancreas and adrenal glands are unremarkable. Hepatic steatosis with cirrhotic morphology. Cholelithiasis. Complex 3 cm cystic lesion with calcified septations within the inferior pole right kidney redemonstrated. There is no hydronephrosis. Decompressed urinary bladder with mild wall thickening. Small fat filled inguinal hernias. Atherosclerosis of the aorta. Borderline enlarged retroperitoneal lymph nodes measure up to 10 mm which are nonspecific. Mildly enlarged inguinal lymph nodes also present. Distal esophageal wall thickening. Large volume of abdominal pelvic ascites. Colonic diverticulosis. No small bowel obstruction. Small hiatal hernia. Varicosities noted near the distal esophagus. There is no acute fracture identified. IMPRESSION: 1. Mild multifocal pneumonia. 2. Cirrhosis with ascites, anasarca and small left pleural effusion. 3. Cholelithiasis. 4. Colonic diverticulosis. 5. Stable Bosniak IIF 3 cm cystic lesion of the right kidney. Six-month follow- up ultrasound recommended. 6. Additional findings as above. ACT 112: Negative or not required by law. Electronically signed by: Colton Arango M.D. 02/25/2024 6:06 PM Discharge Plan Visit Data Chief Complaint: Altered Mental Status ED Provider: Garfield Haddad Discharge Problem: Sepsis, Multifocal pneumonia, Abdominal ascites, Alcoholic cirrhosis of liver with ascites, Metabolic encephalopathy, Hyponatremia, Hypomagnesemia, Symptomatic anemia Patient Disposition: Admitted As Inpatient Discharge Instructions Interventions: ED Discharge Assessment Last Done: 02/25/24 21:59
[2024-02-25 16:43] LABS: Base Excess VBG -3.4 mEq/L; HCO3 VBG 20 mmol/L; Oxygen Saturation VBG < 60.0 %; PCO2 VBG 32 mmHg (38-50); PO2 VBG 30 mmHg; pH VBG 7.41 (7.36-7.41)
[2024-02-25] MEDS: CEFEPIME 2,000 MG/20 ML VIAL IV STA (16:43)
[2024-02-25] MEDS ORDERED: SODIUM CHLORIDE 0.9% 250 ML IV PRN ×2 (16:47→22:11)
[2024-02-25 16:48] LABS: Hematocrit (blood only) 16.5 % (42.0-52.0); Hemoglobin 5.5 g/dl (14.0-18.0); Mean Corpuscular Hemoglobin 32.9 pg (25.0-34.0); Mean Corpuscular Hgb Conc 33.3 g/dL (32.0-36.0); Mean Corpuscular Volume 98.8 fL (80.0-100.0); Mean Platelet Volume 10.4 fL (9.4-12.4); Platelet Count 169 K/uL (130-400); RDW Coefficient of Variation 16.7 % (11.5-14.5); RDW Standard Deviation 59.8 fL (36.4-46.3); Red Blood Count 1.67 M/uL (4.70-6.10); White Blood Count 12.14 K/ul (4.8-10.8)
[2024-02-25 16:53] LABS: Alanine Aminotransferase 18 U/L (7-52); Albumin Level 2.3 gm/dl (3.4-5.0); Alkaline Phosphatase 54 U/L (34-104); Anion Gap 9 (3-11); Aspartate Aminotransferase 45 U/L (13-39); BUN Creatinine Ratio 17.1 (10-20); Bilirubin Direct 0.9 mg/dl (0-0.2); Bilirubin,Total 2.2 mg/dl (0.2-1.0); Blood Urea Nitrogen 46 mg/dl (6-23); Carbon Dioxide 21 mmol/L (21-32); Chloride 98 mmol/L (98-107); Est GFR (African American) 30.4 ml/min; Est GFR (Non-African American) 26.2 ml/min; Glucose 115 mg/dl (70-99(Fasting)); Magnesium 1.2 mg/dl (1.7-2.4); Phosphorus 3.3 mg/dl (2.5-4.9); Potassium 5.3 mmol/L (3.5-5.1); Sodium 128 mmol/L (136-145); Total Protein 7.2 gm/dl (6.0-8.3)
[2024-02-25 16:56] LABS: Reticulocyte % 4.48 % (0.50-2.00)
[2024-02-25] MEDS: SODIUM CHLORIDE 0.9% 1,000 ML IV ONE (16:56)
[2024-02-25 16:57] LABS: iSTAT Creatinine 2.9 mg/dl (0.6-1.3); iSTAT Hemoglobin 7.1 g/dl (14.0-18.0); iSTAT Ionized Calcium 1.08 mmol/l (1.12-1.32); iSTAT Potassium 5.4 mmol/L (3.3-5.0)
[2024-02-25 16:59] LABS: Troponin I High Sensitivity 37.2 pg/ml (0-20)
--- NOTE | 2024-02-25 16:59 | XRay Report ---
XR chest 1V portable HISTORY: 53 years-old Male Sepsis acute sepsis COMPARISON: 08/13/2023 TECHNIQUE: AP view the chest FINDINGS: Lungs are mildly hypoinflated. Cardiac silhouette is mildly enlarged. Atherosclerosis of the aorta. N o pneumothorax or pleural effusion. Mild patchy bibasilar airspace opacities. Bones appear grossly in tact. IMPRESSION: Hypoinflation with mild bibasilar densities which may represent atelectasis versus pneumo miguel. ACT 112: Negative or not required by law. The above report was generated using voice recognition software. It may contain grammatical, syntax o r spelling errors. Electronically signed by: Colton Arango M.D. 02/25/2024 4:57 PM
[2024-02-25 17:06] LABS: Basophils # (auto) 0.01 K/uL (0.00-0.20); Basophils % (auto) 0.1 %; Eosinophils # (auto) 0.04 K/uL (0.00-0.50); Eosinophils % (auto) 0.3 %; Immature Granulocytes # (auto) 0.06 K/uL (0.01-0.20); Immature Granulocytes % (auto) 0.5 %; Lymphocytes # (auto) 0.42 K/uL (1.20-3.40); Lymphocytes % (auto) 3.5 %; Monocytes % (auto) 2.5 %; Neutrophils # (auto) 11.31 K/uL (1.40-6.50); Neutrophils % (auto) 93.1 %; Polychromasia 1+
[2024-02-25 17:08] LABS: Thyroid Stimulating Hormone 2.555 uIu/ml (0.300-4.500)
[2024-02-25 17:16] LABS: Iron 43 mcg/dl (35-175); Transferrin < 95 mg/dl (200-360); Unsaturated Iron Binding Cap 66 mcg/dl (155-355)
[2024-02-25 17:21] LABS: Hematocrit (blood only) 16.5 % (42.0-52.0); Hemoglobin 5.6 g/dl (14.0-18.0)
[2024-02-25 17:32] LABS: Ferritin 1018.3 ng/ml (8-388); Folate (Folic Acid),Ser orPlas > 22.30 ng/ml (>5.38)
[2024-02-25 17:33] LABS: Vitamin B12 1020 pg/ml (180-914)
[2024-02-25 17:54] LABS: Adenovirus PCR Not Detected (NotDetected); Bordetella parapertussis PCR Not Detected (NotDetected); Bordetella pertussis PCR Not Detected (NotDetected); Chlamydia pneumoniae PCR Not Detected (NotDetected); Coronavirus 229E PCR Not Detected (NotDetected); Coronavirus CoV-2 (COVID19)PCR Not Detected (NotDetected); Coronavirus HKU1 PCR Not Detected (NotDetected); Coronavirus NL63 PCR Not Detected (NotDetected); Coronavirus OC43PCR Not Detected (NotDetected); Human Metapneumovirus PCR Not Detected (NotDetected); Influenza A PCR Not Detected (NotDetected); Influenza B PCR Not Detected (NotDetected); Mycoplasma pneumoniae PCR Not Detected (NotDetected); Parainfluenza Virus 1 PCR Not Detected (NotDetected); Parainfluenza Virus 2 PCR Not Detected (NotDetected); Parainfluenza Virus 3 PCR Not Detected (NotDetected); Parainfluenza Virus 4 PCR Not Detected (NotDetected); Respiratory Syncytial VirusPCR Not Detected (NotDetected); Rhinovirus/Enterovirus PCR Not Detected (NotDetected)
--- NOTE | 2024-02-25 17:55 | CT Scan Report ---
CT head/brain wo con CLINICAL HISTORY: 53 years-old Male with ams. Acutely altered mental status TECHNIQUE: Multiple axial CT images of the head were obtained without contrast. A dose lowering tech nique was utilized adhering to the principles of ALARA. COMPARISON: 08/09/2023 FINDINGS: Motion degraded exam. Involutional changes. No acute intracranial hemorrhage, midline shift, intracra nial mass, hydrocephalus, territorial ischemia or abnormal extra-axial collection. The calvarium is intact. Prior bilateral lens are apparent. The paranasal sinuses, mastoid air cells, and middle ear cavities are clear. IMPRESSION: Motion degraded exam without acute intracranial abnormality identified. ACT 112: Negative or not required by law. The above report was generated using voice recognition software. It may contain grammatical, syntax o r spelling errors. Electronically signed by: Colton Arango M.D. 02/25/2024 5:53 PM
--- NOTE | 2024-02-25 18:08 | CT Scan Report ---
CT chest diagnostic wo con, CT abd pelvis wo con CT DOSE: 3077.74 mGy.cm CLINICAL HISTORY: 53 years-old Male with sepsis, sob, ascites, jose angel. Acute sepsis with shortness of b reath and abdominal pain TECHNIQUE: Multiaxial CT images of the chest, abdomen and pelvis were performed without contrast. A dose lowering technique was utilized adhering to the principles of ALARA. COMPARISON: 08/09/2023 FINDINGS: CT CHEST: Limited exam secondary to respiratory motion artifact, lack of contrast upper extremity pos itioning. Unremarkable thyroid. No pathologically enlarged lymph nodes. Mild generalized body wall ed monisha. Heart is mildly enlarged. Decreased attenuation of the cardiac blood pool compatible with anemia . Moderate coronary artery calcifications. No thoracic aortic aneurysm. Trace right and small left pleural effusions. No pneumothorax. Pulmonary emphysema with bronchitis an d mucous plugging. Mild patchy bilateral groundglass densities are most pronounced within the left mukund ng. No acute fracture identified. Healing subacute nondisplaced fracture of the anterior right fifth rib. CT ABDOMEN/PELVIS: No free air. Extensive body wall edema. The unenhanced spleen, pancreas and adrena l glands are unremarkable. Hepatic steatosis with cirrhotic morphology. Cholelithiasis. Complex 3 cm cystic lesion with calcified septations within the inferior pole right kidney redemonstr ated. There is no hydronephrosis. Decompressed urinary bladder with mild wall thickening. Small fat f illed inguinal hernias. Atherosclerosis of the aorta. Borderline enlarged retroperitoneal lymph nodes measure up to 10 mm which are nonspecific. Mildly enlarged inguinal lymph nodes also present. Distal esophageal wall thickening. Large volume of abdominal pelvic ascites. Colonic diverticulosis. No small bowel obstruction. Small hiatal hernia. Varicosities noted near the distal esophagus. There is no acute fracture identified. IMPRESSION: 1. Mild multifocal pneumonia. 2. Cirrhosis with ascites, anasarca and small left pleural effusion. 3. Cholelithiasis. 4. Colonic diverticulosis. 5. Stable Bosniak IIF 3 cm cystic lesion of the right kidney. Six-month follow-up ultrasound recommen ded. 6. Additional findings as above. ACT 112: Negative or not required by law. Electronically signed by: Colton Arango M.D. 02/25/2024 6:06 PM
[2024-02-25] MEDS: THIAMINE HCL 200 MG in SODIUM CHLORIDE 0.9% 50 ML IV STA (18:13)
[2024-02-25] MEDS: ACETAMINOPHEN 10MG/ML Custom 650 MG in EMPTY BAG 0 ML IV STA (18:13)
[2024-02-25 19:25] LABS: INR 1.3 (0.9-1.1); Prothrombin Time 14.1 Seconds (9.0-12.0)
[2024-02-25] MEDS: DOXYCYCLINE HYCLATE 100 MG in DEXTROSE 5% MINI-B 100 ML IV STA (19:30)
[2024-02-25] MEDS: LORazepam 1 MG/1 ML SYR ED Inj Use IV STA (19:42)
[2024-02-25] MEDS: LEVALBUTEROL HCL 0.63 MG/3 ML NEB NEB STA (20:14)
[2024-02-25] MEDS: METOPROLOL TARTRATE 1 MG/ML VIAL IV STA (20:19)
--- NOTE | 2024-02-25 20:19 | History & Physical Report ---
Date of Service February 25, 2024 Assessment & Plan (1) Severe sepsis: Plan: SIRS plus lactic acidosis plus encephalopathy Multifactorial: Possible aspiration pneumonia possible SBP Bilateral LE cellulitis rule out DVT Alcohol withdrawal Decompensated alcoholic cirrhosis Acute on chronic anemia, UGIB given heme positive dark stools on FOBT done at the ER COPD, some scattered wheezes on exam renal cyst, patient follows with [facility] urologist CRI, at baseline ongoing tobacco abuse Medical noncompliance Possible functional disability Admit to PCU CS, follow peritoneal fluid analysis from ascitic tap done by ED provider Ertapenem for possible aspiration pneumonia/SBP, doxycycline for cellulitis (Patient allergic to penicillin, clindamycin currently restricted use inpatient) IV albumin for possible SBP Monitor lactic acid response to IV albumin (Guideline recommended 30 cc/kg IBW fluid bolus administration over 3 hours currently precluded by third spacing from cirrhosis) IV PPI; GI consult for UGIB N.p.o. until patient seen by GI in anticipation of endoscopy Transfuse PRBC to maintain hemoglobin of at least 7 AWSS, DT precautions Nephrology consult Re: CKD LE venous Dopplers rule out DVT Nicotine patch as needed PT OT eval once medically stable DVT prophylaxis. SCDs if no blood clot on clot study Full code for now Attempted to contact patient's sister over the phone (Manuela Amador, contact #[phone]) to discuss plan of care and review code status given patient current confusion. Conditional CODE STATUS (no intubation but okay with CPR) noted from July 2023 confinement. No answer. Total critical care time was 45 minutes. Text document was generated using [employer] voice recognition software. It may contain grammatical or spelling errors. Kindly contact undersigned for clarification of any documentation item in question. History of Present Illness Chief Complaint: Unresponsiveness confusion as per records Primary Care Provider: Dr. Cole History obtained from patient, ED provider, and records. Limited history from patient secondary to disoriented state. s Medical history significant for COPD, alcoholic cirrhosis, renal cyst, CRI (baseline creatinine 2s), chronic anemia (baseline hemoglobin of 7), ongoing tobacco/alcohol abuse. Last confinement July 2023 for multifocal pneumonia/influenza. Patient found to have a renal cyst on imaging. Outpatient surveillance recommended. Patient with progressive abdominal distention and bilateral leg swelling over the last couple of months. Patient not compliant with spironolactone and midodrine Rx prescribed by outpatient providers. Continues to drink as per records. Patient was at home with his sister today when he was found to be unresponsive and more confused than usual. Patient with achy abdominal pain. Patient unaware of black/bloody stools/hematemesis/coffee-ground emesis.. Worsening junky cough symptoms. Admits to increased coughing with food/water intake. No chest pain, some SOB. Denies headache symptoms. Patient brought to ER for evaluation. Cefepime administered at the ER for sepsis. Medical History as above Surgical History : Tonsillectomy Family History : Colon cancer, DM, stroke Personal/Social history : Half pack daily, alcohol abuse Allergies Allergy/AdvReac Type Severity Reaction Status Date / Time Penicillins Allergy Unknown PT WOULD Verified 02/25/24 19:50 NOT SAY WHAT HIS REACTION WAS. Home Medications Medication Instructions Recorded Confirmed Type folic acid 1 mg tablet 1 mg PO DAILY #30 tabs 08/15/23 02/25/24 Rx Past Med/Surg History Problem List (Updated 02/26/24 @ 08:12 by Julio C Barr MD) Severe sepsis Symptomatic anemia (Acute) Metabolic encephalopathy (Acute) Alcoholic cirrhosis of liver with ascites (Acute) Abdominal ascites (Acute) Fall (Acute) Blunt trauma of nose Blunt trauma of face Alcohol use (Acute) Hypoxia (Acute) Pancytopenia (Acute) Influenza A (Acute) Tobacco use Hypomagnesemia (Acute) Hyponatremia (Acute) Hypokalemia (Acute) Multifocal pneumonia (Acute) Sepsis (Acute) Encounter for pre-operative examination Medical History Homeless Current every day smoker Patient denies significant medical history Surgical History S/P cataract extraction right eye History of tonsillectomy History of hernia surgery INFANCY Family History Mother Stroke Diabetes Other Colorectal cancer Heart disease Social History Smoking Status: Current every day smoker Tobacco Type: Cigarettes Cigarettes Per Day: 5-6; Second Hand Exposure: Yes; Do You Dip or Chew Tobacco: No; Tobacco Cessation Education Requested by Patient: No Hx Alcohol Use: Yes Alcohol type: beer and wine Hx Substance Use: No Preferred Language: [place] Communication Ability: Effective Analytical Lead Required: No Beliefs That Will Affect Care: None Current Living Situation: Other Current Living Situation Comment: Lives with Friend in an apartment Other Information That Helps Us Care for You: No Feels Safe at Home: Yes Safety Concerns: Feels Safe At This Time Assistive Devices: Glasses and Walker Review of Systems Review of Systems: Could not be reliably obtained secondary to disorientation Physical Exam Physical Exam: GENERAL: Disoriented, uncomfortable, chronically ill, no respiratory distress SKIN: Pallor, warm HEENT: Pale palpebral conjunctivae, no ptosis, dry buccal mucosa NECK : Supple, no tenderness CHEST : Decreased breath sounds, occasional expiratory wheezes, no tenderness HEART : Tachycardic no obvious murmurs ABDOMEN: Marked abdominal distention, positive fluid wave, minimal central tenderness RECTAL : Intact sphincter, dark stool (FOBT positive) EXTREMITIES : Bilateral LE in duration with minimal tenderness, no other conspicuous deformities noted NEUROLOGIC : Disoriented, no facial asymmetry, restless, no other gross focality Results & Data Results & Data Vital Signs (Past 12 Hours) Vital Signs Temp Pulse Pulse Resp BP BP Pulse Ox 02/25/24 20:14 97 H 22 95 02/25/24 19:32 37.9 C H 158 H 24 121/66 95 02/25/24 19:31 37.9 C H 154 H 26 H 121/66 97 02/25/24 19:24 154 H 02/25/24 19:02 38.2 C H 101 H 24 97/62 L 92 02/25/24 18:46 37.6 C H 103 H 20 113/55 L 92 02/25/24 18:32 37.6 C H 02/25/24 18:31 112 H 22 131/68 95 02/25/24 18:00 117 H 20 132/99 96 02/25/24 16:30 109 H 02/25/24 16:13 39.3 C H 108 H 14 129/71 94 O2 Del Method 02/25/24 20:14 Room Air 02/25/24 19:32 02/25/24 19:31 Room Air 02/25/24 19:24 02/25/24 19:02 02/25/24 18:46 02/25/24 18:32 02/25/24 18:31 02/25/24 18:00 Room Air 02/25/24 16:30 02/25/24 16:13 Room Air Laboratory Results Laboratory Results WBC 12.14 K/ul (4.8-10.8) H 02/25/24 16:18 RBC 1.67 M/uL (4.70-6.10) L 02/25/24 16:18 Hgb 5.6 g/dl (14.0-18.0) L* 02/25/24 17:06 POC Hgb 7.1 g/dl (14.0-18.0) L 02/25/24 16:44 Hct 16.5 % (42.0-52.0) L* 02/25/24 17:06 POC Hct 21 % (42-52) L 02/25/24 16:44 MCV 98.8 fL (80.0-100.0) 02/25/24 16:18 MCH 32.9 pg (25.0-34.0) 02/25/24 16:18 MCHC 33.3 g/dL (32.0-36.0) 02/25/24 16:18 RDW Std Deviation 59.8 fL (36.4-46.3) H 02/25/24 16:18 RDW Coeff of Ham 16.7 % (11.5-14.5) H 02/25/24 16:18 Plt Count 169 K/uL (130-400) 02/25/24 16:18 MPV 10.4 fL (9.4-12.4) 02/25/24 16:18 Immature Gran % (Auto) 0.5 % 02/25/24 16:18 Neut % (Auto) 93.1 % 02/25/24 16:18 Lymph % (Auto) 3.5 % 02/25/24 16:18 [place] % (Auto) 2.5 % 02/25/24 16:18 Eos % (Auto) 0.3 % 02/25/24 16:18 Baso % (Auto) 0.1 % 02/25/24 16:18 Reticulocyte % (Auto) 4.48 % (0.50-2.00) H 02/25/24 16:18 Neut # (Auto) 11.31 K/uL (1.40-6.50) H 02/25/24 16:18 Lymph # (Auto) 0.42 K/uL (1.20-3.40) L 02/25/24 16:18 [place] # (Auto) 0.30 K/uL (0.11-0.59) 02/25/24 16:18 Eos # (Auto) 0.04 K/uL (0.00-0.50) 02/25/24 16:18 Baso # (Auto) 0.01 K/uL (0.00-0.20) 02/25/24 16:18 Reticulocyte # 0.070 10^6/uL (0.020-0.100) 02/25/24 16:18 Immature Gran # (Auto) 0.06 K/uL (0.01-0.20) 02/25/24 16:18 Polychromasia 1+ 02/25/24 16:18 PT 14.1 Seconds (9.0-12.0) H 02/25/24 16:18 INR 1.3 (0.9-1.1) H 02/25/24 16:18 VBG pH 7.41 (7.36-7.41) 02/25/24 16:35 VBG pCO2 32 mmHg (38-50) L 02/25/24 16:35 VBG pO2 30 mmHg 02/25/24 16:35 VBG HCO3 20 mmol/L 02/25/24 16:35 VBG O2 Saturation < 60.0 % 02/25/24 16:35 VBG Base Excess -3.4 mEq/L 02/25/24 16:35 POC Sodium 131 mmol/L (135-144) L 02/25/24 16:44 Sodium 128 mmol/L (136-145) L 02/25/24 16:18 POC Potassium 5.4 mmol/L (3.3-5.0) H 02/25/24 16:44 Potassium 5.3 mmol/L (3.5-5.1) H 02/25/24 16:18 POC Chloride 98 mmol/L (101-112) L 02/25/24 16:44 Chloride 98 mmol/L (98-107) 02/25/24 16:18 Carbon Dioxide 21 mmol/L (21-32) 02/25/24 16:18 POC Total CO2 19 mmol/L (24-31) L 02/25/24 16:44 Anion Gap 9 (3-11) 02/25/24 16:18 POC Anion Gap 20.0 mmol/L (16-25) 02/25/24 16:44 POC BUN 39 mg/dl (7-18) H 02/25/24 16:44 BUN 46 mg/dl (6-23) H 02/25/24 16:18 Creatinine 2.69 mg/dl (0.6-1.4) H 02/25/24 16:18 POC Creatinine 2.9 mg/dl (0.6-1.3) H 02/25/24 16:44 Est Cr Clr Drug Dosing 43.0 ml/min 02/25/24 16:18 Est GFR ( Amer) 30.4 ml/min 02/25/24 16:18 Est GFR (Non-Af Amer) 26.2 ml/min 02/25/24 16:18 BUN/Creatinine Ratio 17.1 (10-20) 02/25/24 16:18 Glucose 115 mg/dl (70-99(Fasting)) H 02/25/24 16:18 POC Glucose 123 mg/dl (70-99) H 02/25/24 16:14 POC Glucose (other) 116 mg/dl (70-99) H 02/25/24 16:44 Lactate 3.3 mmol/L (0.4-2.0) H* 02/25/24 19:18 Calcium 8.0 mg/dl (8.6-10.3) L 02/25/24 16:18 POC Ioniz Calcium Raymundo 1.08 mmol/l (1.12-1.32) L 02/25/24 16:44 Phosphorus 3.3 mg/dl (2.5-4.9) 02/25/24 16:18 Magnesium 1.2 mg/dl (1.7-2.4) L 02/25/24 16:18 Iron 43 mcg/dl (35-175) 02/25/24 16:18 Unsaturated IBC 66 mcg/dl (155-355) L 02/25/24 16:18 Transferrin < 95 mg/dl (200-360) L 02/25/24 16:18 Ferritin 1018.3 ng/ml (8-388) H 02/25/24 16:18 Total Bilirubin 2.2 mg/dl (0.2-1.0) H 02/25/24 16:18 Direct Bilirubin 0.9 mg/dl (0-0.2) H 02/25/24 16:18 AST 45 U/L (13-39) H 02/25/24 16:18 ALT 18 U/L (7-52) 02/25/24 16:18 Alkaline Phosphatase 54 U/L (34-104) 02/25/24 16:18 Ammonia 53.0 umol/L (18-72) 02/25/24 16:35 Troponin I High Sens 42.9 pg/ml (0-20) H 02/25/24 19:18 B-Natriuretic Peptide 648 pg/ml (0-100) H 02/25/24 16:18 Total Protein 7.2 gm/dl (6.0-8.3) 02/25/24 16:18 Albumin 2.3 gm/dl (3.4-5.0) L 02/25/24 16:18 Vitamin B12 1020 pg/ml (180-914) H 02/25/24 16:18 Folate > 22.30 ng/ml (>5.38) 02/25/24 16:18 Procalcitonin 2.21 ng/ml (0-0.5) H 02/25/24 16:18 TSH 2.555 uIu/ml (0.300-4.500) 02/25/24 16:18 Nasal Screen MRSA (PCR) Negative (Negative) 02/25/24 16:53 Adenovirus (PCR) Not Detected (NotDetected) 02/25/24 16:53 B. pertussis DNA (PCR) Not Detected (NotDetected) 02/25/24 16:53 B.parapertussis DNA PCR Not Detected (NotDetected) 02/25/24 16:53 C. pneumoniae DNA (PCR) Not Detected (NotDetected) 02/25/24 16:53 Coronavirus OC43 (PCR) Not Detected (NotDetected) 02/25/24 16:53 Coronavirus HKU1 (PCR) Not Detected (NotDetected) 02/25/24 16:53 Coronavirus 229E (PCR) Not Detected (NotDetected) 02/25/24 16:53 SARS-CoV-2 (PCR) Not Detected (NotDetected) 02/25/24 16:53 Coronavirus NL63 (PCR) Not Detected (NotDetected) 02/25/24 16:53 Human Metapneumovir PCR Not Detected (NotDetected) 02/25/24 16:53 Influenza Type A (PCR) Not Detected (NotDetected) 02/25/24 16:53 Influenza Type B (PCR) Not Detected (NotDetected) 02/25/24 16:53 M. pneumoniae (PCR) Not Detected (NotDetected) 02/25/24 16:53 Parainfluenza 1 (PCR) Not Detected (NotDetected) 02/25/24 16:53 Parainfluenza 2 (PCR) Not Detected (NotDetected) 02/25/24 16:53 Parainfluenza 3 (PCR) Not Detected (NotDetected) 02/25/24 16:53 Parainfluenza 4 (PCR) Not Detected (NotDetected) 02/25/24 16:53 RSV (PCR) Not Detected (NotDetected) 02/25/24 16:53 Entero/Rhino (PCR) Not Detected (NotDetected) 02/25/24 16:53 Blood Type A Negative 02/25/24 17:06 Blood Type Recheck A Negative 02/25/24 17:23 Antibody Screen NEGATIVE 02/25/24 17:06 Crossmatch See Detail 02/25/24 17:06 Impressions Chest X-Ray 02/25/24 16:23 XR chest 1V portable HISTORY: 53 years-old Male Sepsis acute sepsis COMPARISON: 08/13/2023 TECHNIQUE: AP view the chest FINDINGS: Lungs are mildly hypoinflated. Cardiac silhouette is mildly enlarged. Atherosclerosis of the aorta. No pneumothorax or pleural effusion. Mild patchy bibasilar airspace opacities. Bones appear grossly intact. IMPRESSION: Hypoinflation with mild bibasilar densities which may represent atel ectasis versus pneumonia. ACT 112: Negative or not required by law. The above report was generated using voice recognition software. It may contain grammatical, syntax or spelling errors. Electronically signed by: Colton Arango M.D. 02/25/2024 4:[address] 02/25/24 16:34 CT head/brain wo con CLINICAL HISTORY: 53 years-old Male with ams. Acutely altered mental status TECHNIQUE: Multiple axial CT images of the head were obtained without contrast. A dose lowering technique was utilized adhering to the principles of ALARA. COMPARISON: 08/09/2023 FINDINGS: Motion degraded exam. Involutional changes. No acute intracranial hemorrhage, midline shift, intracranial mass, hydrocephalus, territorial ischemia or abnormal extra-axial collection. The calvarium is intact. Prior bilateral lens are apparent. The paranasal sinuses, mastoid air cells, and middle ear cavities are clear. IMPRESSION: Motion degraded exam without acute intracranial abnormality identified. ACT 112: Negative or not required by law. The above report was generated using voice recognition software. It may contain grammatical, syntax or spelling errors. Electronically signed by: Colton Arango M.D. 02/25/2024 5:53 PM Abdomen/Pelvis CT 02/25/24 16:46 CT chest diagnostic wo con, CT abd pelvis wo con CT DOSE: 3077.74 mGy.cm CLINICAL HISTORY: 53 years-old Male with sepsis, sob, ascites, jose angel. Acute sepsis with shortness of breath and abdominal pain TECHNIQUE: Multiaxial CT images of the chest, abdomen and pelvis were performed without contrast. A dose lowering technique was utilized adhering to the principles of ALARA. COMPARISON: 08/09/2023 FINDINGS: CT CHEST: Limited exam secondary to respiratory motion artifact, lack of contrast upper extremity positioning. Unremarkable thyroid. No pathologically enlarged lymph nodes. Mild generalized body wall edema. Heart is mildly enlarged. Decreased attenuation of the cardiac blood pool compatible with anemia. Moderate coronary artery calcifications. No thoracic aortic aneurysm. Trace right and small left pleural effusions. No pneumothorax. Pulmonary emphysema with bronchitis and mucous plugging. Mild patchy bilateral groundglass densities are most pronounced within the left lung. No acute fracture identified. Healing subacute nondisplaced fracture of the anterior right fifth rib. CT ABDOMEN/PELVIS: No free air. Extensive body wall edema. The unenhanced spleen, pancreas and adrenal glands are unremarkable. Hepatic steatosis with ci rrhotic morphology. Cholelithiasis. Complex 3 cm cystic lesion with calcified septations within the inferior pole right kidney redemonstrated. There is no hydronephrosis. Decompressed urinary bladder with mild wall thickening. Small fat filled inguinal hernias. Atherosclerosis of the aorta. Borderline enlarged retroperitoneal lymph nodes measure up to 10 mm which are nonspecific. Mildly enlarged inguinal lymph nodes also present. Distal esophageal wall thickening. Large volume of abdominal pelvic ascites. Colonic diverticulosis. No small bowel obstruction. Small hiatal hernia. Varicosities noted near the distal esophagus. There is no acute fracture identified. IMPRESSION: 1. Mild multifocal pneumonia. 2. Cirrhosis with ascites, anasarca and small left pleural effusion. 3. Cholelithiasis. 4. Colonic diverticulosis. 5. Stable Bosniak IIF 3 cm cystic lesion of the right kidney. Six-month follow- up ultrasound recommended. 6. Additional findings as above. ACT 112: Negative or not required by law. Electronically signed by: Colton Arango M.D. 02/25/2024 6:[address] 02/25/24 16:46 CT chest diagnostic wo con, CT abd pelvis wo con CT DOSE: 3077.74 mGy.cm CLINICAL HISTORY: 53 years-old Male with sepsis, sob, ascites, jose angel. Acute sepsis with shortness of breath and abdominal pain TECHNIQUE: Multiaxial CT images of the chest, abdomen and pelvis were performed without contrast. A dose lowering technique was utilized adhering to the principles of ALARA. COMPARISON: 08/09/2023 FINDINGS: CT CHEST: Limited exam secondary to respiratory motion artifact, lack of contrast upper extremity positioning. Unremarkable thyroid. No pathologically enlarged lymph nodes. Mild generalized body wall edema. Heart is mildly enlarged . Decreased attenuation of the cardiac blood pool compatible with anemia. Moderate coronary artery calcifications. No thoracic aortic aneurysm. Trace right and small left pleural effusions. No pneumothorax. Pulmonary emphysema with bronchitis and mucous plugging. Mild patchy bilateral groundglass densities are most pronounced within the left lung. No acute fracture identified. Healing subacute nondisplaced fracture of the anterior right fifth rib. CT ABDOMEN/PELVIS: No free air. Extensive body wall edema. The unenhanced spleen, pancreas and adrenal glands are unremarkable. Hepatic steatosis with cirrhotic morphology. Cholelithiasis. Complex 3 cm cystic lesion with calcified septations within the inferior pole right kidney redemonstrated. There is no hydronephrosis. Decompressed urinary bladder with mild wall thickening. Small fat filled inguinal hernias. Atherosclerosis of the aorta. Borderline enlarged retroperitoneal lymph nodes measure up to 10 mm which are nonspecific. Mildly enlarged inguinal lymph nodes also present. Distal esophageal wall thickening. Large volume of abdominal pelvic ascites. Colonic diverticulosis. No small bowel obstruction. Small hiatal hernia. Ham icosities noted near the distal esophagus. There is no acute fracture identified. IMPRESSION: 1. Mild multifocal pneumonia. 2. Cirrhosis with ascites, anasarca and small left pleural effusion. 3. Cholelithiasis. 4. Colonic diverticulosis. 5. Stable Bosniak IIF 3 cm cystic lesion of the right kidney. Six-month follow- up ultrasound recommended. 6. Additional findings as above. ACT 112: Negative or not required by law. Electronically signed by: Colton Arango M.D. 02/25/2024 6:06 PM Diagnostic Findings EKG as per my interpretation : Rate 110, sinus tachycardia, normal axis, nonspecific T wave abnormalities, low voltage
[2024-02-25] MEDS ORDERED: Ativan IV Alcohol Withdrawal--Active Protocol IV PRN (21:01)
[2024-02-25] MEDS ORDERED: LORazepam 3 MG in SYRINGE 1.5 ML IV PRN (21:01)
[2024-02-25] MEDS ORDERED: GABAPENTIN 600MG ALCOHOL WITHDRAWAL LOAD PO STA (21:01)
[2024-02-25] MEDS ORDERED: LORazepam 1 MG in SYRINGE 0.5 ML IV PRN (21:01)
[2024-02-25] MEDS ORDERED: LORazepam 2 MG in SYRINGE 1 ML IV PRN (21:01)
[2024-02-25] MEDS ORDERED: ACETAMINOPHEN 500 MG TAB PO PRN (21:04)
[2024-02-25] MEDS ORDERED: PROMETHAZINE HCL 6.25 MG in SODIUM CHLORIDE 0.9% 50 ML IV PRN (21:04)
[2024-02-25 21:07] LABS: Appearance Urine Cloudy (Clear); Bacteria Urine Automated None Seen (None Seen); Bilirubin Urine 1+ (Negative); Blood Urine Negative (Negative); Cast Urine Automated >20 /lpf (0-2); Color Urine Dark Yellow; Epithelial Cell Urine Auto 0-2 /hpf (0-2); Glucose Urine UA Negative (Negative); Ketones Urine Trace (Negative); Leukocyte Esterase Urine Trace (Negative); Mucus Urine Present (None Prsent); Nitrite Urine Negative (Negative); Protein Urine 1+ (Negative); RBC Urine Automated 0-2 /hpf (0-2); Specific Gravity Urine 1.019 (1.000-1.030); Urobilinogen Urine Negative (Negative); WBC Urine Automated 0-5 /hpf (0-5)
[2024-02-25] MEDS: ERTAPENEM SODIUM 10 ML IV STA (21:33)
[2024-02-25] MEDS: LEVALBUTEROL 1.25 MG/3 ML NEB NEB STA (21:33)
[2024-02-25] MEDS: PANTOprazole 80 MG in DEXTROSE 5% 100 ML IV STA (21:34)
[2024-02-25] MEDS: IPRATROPIUM BROMIDE NEB SOLN 0.02% 0.5MG/2.5ML VIAL INH STA (21:38)
[2024-02-25] MEDS: ALBUMIN 25% 25 GM/100 ML VIAL IV SCH (21:40)
[2024-02-25] MEDS: MAGNESIUM SULFATE / D5W 1 GM/100 ML BAG IV SCH (21:42)
[2024-02-25 21:53] LABS: Amphetamines+Metham, Urine Neg (Neg); Barbiturates, Urine Neg (Neg); Benzodiazepine, Urine Neg (Neg); Cocaine, Urine Neg (Neg); Fentanyl, Urine Neg (Neg); MDMA (Ecstacy), Urine Neg (Neg); Marijuana, Urine Pos (Neg); Methadone, Urine Neg (Neg); Opiate, Urine Neg (Neg); Phencyclidine, Urine Neg (Neg)
[2024-02-25 21:58] LABS: Albumin Peritoneal Fluid < 1.5 gm/dl
[2024-02-25 22:03] LABS: Total Protein Peritoneal Fluid < 3.0 gm/dl
[2024-02-25 22:54] LABS: Appearance Peritoneal Fluid Slightly Hazy; Color Peritoneal Fluid Pale Yellow; Lymphocytes, Fluid 18 %; Mono,Macrophage,Mesothelial 44 %; Neutrophils, Fluid 38 %; RBC Peritoneal Fluid Auto < 2000 /uL; WBC Peritoneal Fluid Auto 48 /ul (0-300)
[2024-02-25 23:12] LABS: BUN Creatinine Ratio 16.7 (10-20); Calcium 7.7 mg/dl (8.6-10.3); Creatinine Clr Calc Pharmacy 39.8 ml/min; Est GFR (African American) 28.8 ml/min; Est GFR (Non-African American) 24.9 ml/min; Potassium 5.1 mmol/L (3.5-5.1)
[2024-02-25 23:18] LABS: Troponin I High Sensitivity 41.4 pg/ml (0-20)
[2024-02-25] MEDS: GABAPENTIN 600 MG TAB PO STA (23:38)
[2024-02-26] MEDS: PANTOprazole 40 MG in DEXTROSE 5% MINI-B 100 ML IV SCH (01:41)
--- NOTE | 2024-02-26 02:54 | Ultrasound Report ---
Exam(s): US VENOUS BILATERAL LOWER EXTREMITIES EXAM: US Duplex Bilateral Lower Extremities Veins CLINICAL HISTORY: Reason for exam: leg swelling. TECHNIQUE: Real-time duplex ultrasound scan of the bilateral lower extremity veins integrating B-mode two-dimensional vascular structure, Doppler spectral analysis, color flow Doppler imaging and compression. COMPARISON: No relevant prior studies available. FINDINGS: Right deep veins: Unremarkable. The visualized deep veins of the right lower extremity are compressible with color flow. No visualized thrombus. Right superficial veins: Unremarkable. Left deep veins: Unremarkable. The visualized deep veins of the left lower extremity are compressible with color flow. No visualized thrombus. Left superficial veins: Unremarkable. Soft tissues: Extensive subcutaneous soft tissue edema. IMPRESSION: 1. No DVT within the lower extremities. 2. Extensive subcutaneous soft tissue edema. Electronically signed by: Bon Bronson MD 02/26/24 02:53 AM
[2024-02-26] MEDS: GABAPENTIN 100 MG CAP PO SCH (03:43)
[2024-02-26] MEDS ORDERED: IPRATROPIUM BROMIDE NEB SOLN 0.02% 0.5MG/2.5ML VIAL INH PRN (03:53)
[2024-02-26] MEDS ORDERED: LEVALBUTEROL 1.25 MG/3 ML NEB NEB PRN (03:53)
[2024-02-26] MEDS: IPRATROPIUM BROMIDE NEB SOLN 0.02% 0.5MG/2.5ML VIAL NEB STA (04:12)
[2024-02-26] MEDS: LEVALBUTEROL 1.25 MG/3 ML NEB NEB STA (04:12)
[2024-02-26] MEDS ORDERED: Nursing to Pharmacy Communication SCH (04:30)
[2024-02-26] MEDS: ALBUMIN 25% 25 GM/100 ML VIAL IV SCH ×2 (04:31→04:32)
[2024-02-26 04:35] LABS: A calco-baum cmplx NotReported Not Detected (NotDetected); Bact fragilis Not Reported Not Detected (NotDetected); Blood Culture Id Panel See PCR Comment (NotDetected); C auris Not Reported Not Detected (NotDetected); Calbicans Not Reported Not Detected (NotDetected); Candida glabrata Not Reported Not Detected (NotDetected); Candida krusei Not Reported Not Detected (NotDetected); Cneoformans/gatti Not Reported Not Detected (NotDetected); Cparapsilosis Not Reported Not Detected (NotDetected); E cloacae compx Not Reported Not Detected (NotDetected); Efaecalis Not Reported Not Detected (NotDetected); Efaecium Not Reported Not Detected (NotDetected); Enterobacterales Not Reported Not Detected (NotDetected); Escherichia coli Not Reported Not Detected (NotDetected); H influenzae Not Reported Not Detected (NotDetected); K aerogenes Not Reported Not Detected (NotDetected); Koxytoca Not Reported Not Detected (NotDetected); Kpneumoniae grp Not Reported Not Detected (NotDetected); Lmonocyt Not Reported Not Detected (NotDetected); N meningitidis Not Reported Not Detected (NotDetected); P aeruginosa Not Reported Not Detected (NotDetected); Proteus spp Not Reported Not Detected (NotDetected); Salmonella spp Not Reported Not Detected (NotDetected); Staph lugdunensis Not Reported Not Detected (NotDetected); Staph spp. Not Reported Not Detected (NotDetected); Staphaureus Not Reported Not Detected (NotDetected); Staphepi Not Reported Not Detected (NotDetected); Stenmaltophilia Not Reported Not Detected (NotDetected); Strep agal(GrpB) Not Reported Not Detected (NotDetected); Strep pneum Not Reported Not Detected (NotDetected); Strep pyog (GrpA) Not Reported Not Detected (NotDetected); Strep spp Not Reported DETECTED (NotDetected)
[2024-02-26 04:49] LABS: Streptococcus spp DETECTED (NotDetected)
[2024-02-26 06:05] LABS: Albumin Globulin Ratio 0.7 (0.9-2); Albumin Level 2.5 gm/dl (3.4-5.0); Bilirubin,Total 2.8 mg/dl (0.2-1.0); Calcium 7.7 mg/dl (8.6-10.3); Creatinine Clr Calc Pharmacy 40.4 ml/min; Est GFR (African American) 29.3 ml/min; Est GFR (Non-African American) 25.3 ml/min; Globulin 3.7 gm/dl (2.5-4.0); Magnesium 1.7 mg/dl (1.7-2.4); Total Protein 6.2 gm/dl (6.0-8.3)
[2024-02-26 06:17] LABS: Hematocrit (blood only) 17.4 % (42.0-52.0); Hemoglobin 5.9 g/dl (14.0-18.0); Mean Corpuscular Hemoglobin 31.6 pg (25.0-34.0); Mean Corpuscular Hgb Conc 33.9 g/dL (32.0-36.0); Mean Platelet Volume 10.1 fL (9.4-12.4); Platelet Count 113 K/uL (130-400); RDW Coefficient of Variation 16.9 % (11.5-14.5); RDW Standard Deviation 56.4 fL (36.4-46.3); Red Blood Count 1.87 M/uL (4.70-6.10); White Blood Count 7.59 K/ul (4.8-10.8)
[2024-02-26 06:18] LABS: Basophils # (auto) 0.01 K/uL (0.00-0.20); Basophils % (auto) 0.1 %; Dohle Bodies 1+; Eosinophils # (auto) 0.01 K/uL (0.00-0.50); Eosinophils % (auto) 0.1 %; Immature Granulocytes # (auto) 0.03 K/uL (0.01-0.20); Immature Granulocytes % (auto) 0.4 %; Lymphocytes # (auto) 0.56 K/uL (1.20-3.40); Lymphocytes % (auto) 7.4 %; Neutrophils # (auto) 6.68 K/uL (1.40-6.50); Target Cells 1+
[2024-02-26] MEDS ORDERED: SODIUM CHLORIDE 0.9% 250 ML IV PRN ×2 (06:34)
--- NOTE | 2024-02-26 07:18 | XRay Report ---
XR chest 1V portable HISTORY: 53 years-old Male sob (ffup) acute shortness breath with sepsis COMPARISON: Chest CT 02/25/2024 TECHNIQUE: AP view the chest FINDINGS: Cardiomediastinal and hilar silhouettes are unchanged. Emphysema with mild patchy bilateral airspace opacities redemonstrated. No significant change. No pneumothorax or pleural effusion. Bones appear in tact. Pulmonary vascular congestion suggested. IMPRESSION: Unchanged multifocal pneumonia. ACT 112: Negative or not required by law. The above report was generated using voice recognition software. It may contain grammatical, syntax o r spelling errors. Electronically signed by: Colton Arango M.D. 02/26/2024 7:17 AM
--- NOTE | 2024-02-26 07:26 | XRay Report ---
XR chest 1V portable HISTORY: 53 years-old Male wheeze acute shortness breath with wheezing COMPARISON: 02/25/2024 TECHNIQUE: AP view of the chest FINDINGS: Cardiomediastinal and hilar silhouettes are unchanged. Emphysema with mild patchy bilateral airspace opacities redemonstrated. No significant change. No pneumothorax or pleural effusion. Bones appear intact. Pulmonary vascular congestion suggested. IMPRESSION: Unchanged multifocal pneumonia. ACT 112: Negative or not required by law. The above report was generated using voice recognition software. It may contain grammatical, syntax o r spelling errors. Electronically signed by: Colton Arango M.D. 02/26/2024 7:25 AM
--- NOTE | 2024-02-26 08:15 | Hospitalist Progress Note ---
Date of Service February 26, 2024 Assessment & Plan (1) Severe sepsis: Plan Pt is a 53yoM with PMHx significant for alcoholic cirrhosis, COPD, renal cyst, CKD (baseline creatinine 2s), chronic anemia (baseline hemoglobin of 7) presenting with altered mental status. Bacteremia Severe sepsis, POA Pneumonia, possible aspiriation Possible cellulitis Pt presenting with altered mental status Febrile with tachycardia on arrival lactate elevated at 3.3 with decrease to normal after fluid resuscitation procalcitonin elevated at 2.[address] chest concerning for pneumonia UA without infectious signs possible SBP Bilateral LE cellulitis rule out DVT Blood culture 1/4 bottles growing gram positive cocci in chains currently serology pcr notes strep Echo pending, r/o endocarditis Continue IV ertapenem and doxycycline ID consulted, appreciate recs Acute on chronic blood loss anemia Esophageal Varices Upper GI Bleed Hgb of 5.5 on arrival with transfusion of 2U pRBCs so far Currently hgb at 5.9 likely UGIB given heme positive dark stools on FOBT done at the ER pt with noted varicosities on imaging Anemia panel noting iron, b12 and folate levels wnl Continue to transfuse as needed, Transfuse PRBC to maintain hemoglobin of at least 7 IV ppi GI consulted, appreciate recs Cirrhosis, decompensated Pt with Hx CT chest and abd/pelvis concerning for ascites and anasarca Occasional hypotension IV albumin for possible SBP s/p paracentesis on 02/24 -?6L removed yellow cloudy fluid -follow culture and cell counts GI consulted, appreciate recs Acute Kidney Injury Cr elevated above baseline from july at 2.9 -2.8 Limited fluid use in setting of above Nephrology consulted, appreciate further recs -Discussed with Dr Fontaine, IV Lasix 20mg QID ordered with albumin Hyponatremia Sodium of 128-129 Nephrology consulted, appreciate recs Hypocalcemia Ionized filippo pending Thrombocytopenia Plates of 113 Likely in setting of chronic alcohol use Elevated trop Demand ischemia Trop elevated at 42.9 to 41.4 EKG with sinus tachycardia Echo ordered and pending above Likely demand in setting of above, doubt ACS R kidney Cystic Lesion Noted on imaging patient follows with [facility] [place] urologist 6 month follow up US recommended PCP followup Chronic alcohol use AWSS, DT precautions Encourage cessation Diet: currently NPO for possible endoscopy DVT prophylaxis: SCDs Dispo: PT/OT for further recs once more stable Admission and Anticipated Discharge Date Admission Date: February 25, 2024 Subjective pt was seen while laying in bed. Bipap on face, unresponsive. Per nursing had run of v tach Review of Systems Review of Systems: Unobtainable due to cognitive status Physical Exam Physical Exam: General: unarousable Skin: erythema and ?petechiae on lower extremities Psych: mood and affect could not be determined Neuro:unarousable HEENT: NC/AT, bipap CV: RRR Resp: using bipap Abdomen: tender, distended Extremities: edema in lower extremities bilaterally. Results & Data Results & Data Vital Signs (Past 12 Hours) Vital Signs Temp Pulse Pulse Resp BP BP Pulse Ox 02/26/24 07:59 36.7 C 81 21 100/62 98 02/26/24 07:44 81 19 95 02/26/24 04:47 83 17 97 02/26/24 04:12 85 14 96 02/26/24 02:18 37.1 C 77 16 91/47 L 91 02/26/24 01:18 37.1 C 86 17 98/61 L 96 02/26/24 00:18 37.2 C 86 16 97/60 L 95 02/26/24 00:03 37.2 C 87 16 100/64 93 02/25/24 23:48 37.2 C 83 16 98/58 L 92 02/25/24 23:33 37.2 C 89 16 106/71 97 02/25/24 23:30 87 02/25/24 23:17 37.2 C 90 16 109/72 94 02/25/24 22:35 02/25/24 22:32 36.7 C 97 H 20 102/63 96 02/25/24 21:55 98 H 20 105/58 L 99 02/25/24 21:50 99 H 18 98/74 L 99 02/25/24 21:43 95 H 108/67 02/25/24 21:39 95 H 17 100 02/25/24 21:30 96 H 18 108/62 98 02/25/24 21:22 37.2 C 96 H 20 108/67 100 02/25/24 21:21 97 H 18 108/67 100 02/25/24 21:15 95 H 18 118/67 100 02/25/24 21:00 98 H 20 119/69 95 02/25/24 20:56 98 H 17 99 02/25/24 20:45 93 H 22 112/76 100 02/25/24 20:35 105/73 02/25/24 20:32 37.9 C H 96 H 24 105/73 99 02/25/24 20:25 99 H 22 114/69 100 02/25/24 20:20 99 H 24 106/82 100 02/25/24 20:19 102 H 113/62 02/25/24 20:15 152 H 20 113/62 95 02/25/24 20:14 97 H 22 95 O2 Del Method FiO2 02/26/24 07:59 BiPAP 02/26/24 07:44 21 02/26/24 04:47 21 02/26/24 04:12 Room Air 02/26/24 02:18 02/26/24 01:18 02/26/24 00:18 02/26/24 00:03 02/25/24 23:48 02/25/24 23:33 02/25/24 23:30 02/25/24 23:17 02/25/24 22:35 Room Air 02/25/24 22:32 Room Air 02/25/24 21:55 02/25/24 21:50 02/25/24 21:43 02/25/24 21:39 BiPAP 21 02/25/24 21:30 02/25/24 21:22 02/25/24 21:21 02/25/24 21:15 02/25/24 21:00 02/25/24 20:56 21 02/25/24 20:45 02/25/24 20:35 02/25/24 20:32 02/25/24 20:25 02/25/24 20:20 02/25/24 20:19 02/25/24 20:15 02/25/24 20:14 Room Air Diagnostic Findings Chest X-Ray 02/25/24 16:23 XR chest 1V portable HISTORY: 53 years-old Male Sepsis acute sepsis COMPARISON: 08/13/2023 TECHNIQUE: AP view the chest FINDINGS: Lungs are mildly hypoinflated. Cardiac silhouette is mildly enlarged. Atherosclerosis of the aorta. No pneumothorax or pleural effusion. Mild patchy bibasilar airspace opacities. Bones appear grossly intact. IMPRESSION: Hypoinflation with mild bibasilar densities which may represent atelectasis versus pneumonia. ACT 112: Negative or not required by law. The above report was generated using voice recognition software. It may contain grammatical, syntax or spelling errors. Electronically signed by: Colton Arango M.D. 02/25/2024 4:[address] 02/25/24 16:34 CT head/brain wo con CLINICAL HISTORY: 53 years-old Male with ams. Acutely altered mental status TECHNIQUE: Multiple axial CT images of the head were obtained without contrast. A dose lowering technique was utilized adhering to the principles of ALARA. COMPARISON: 08/09/2023 FINDINGS: Motion degraded exam. Involutional changes. No acute intracranial hemorrhage, midline shift, intracranial mass, hydrocephalus, territorial ischemia or abnormal extra-axial collection. The calvarium is intact. Prior bilateral lens are apparent. The paranasal sinuses, mastoid air cells, and middle ear cavities are clear. IMPRESSION: Motion degraded exam without acute intracranial abnormality paula ntified. ACT 112: Negative or not required by law. The above report was generated using voice recognition software. It may contain grammatical, syntax or spelling errors. Electronically signed by: Colton Arango M.D. 02/25/2024 5:53 PM Abdomen/Pelvis CT 02/25/24 16:46 CT chest diagnostic wo con, CT abd pelvis wo con CT DOSE: 3077.74 mGy.cm CLINICAL HISTORY: 53 years-old Male with sepsis, sob, ascites, jose angel. Acute sepsis with shortness of breath and abdominal pain TECHNIQUE: Multiaxial CT images of the chest, abdomen and pelvis were performed without contrast. A dose lowering technique was utilized adhering to the principles of ALARA. COMPARISON: 08/09/2023 FINDINGS: CT CHEST: Limited exam secondary to respiratory motion artifact, lack of contrast upper extremity positioning. Unremarkable thyroid. No pathologically enlarged lymph nodes. Mild generalized body wall edema. Heart is mildly enlarged. Decreased attenuation of the cardiac blood pool compatible with anemia. Moderate coronary artery calcifications. No thoracic aortic aneurysm. Trace right and small left pleural effusions. No pneumothorax. Pulmonary emphysema with bronchitis and mucous plugging. Mild patchy bilateral groundglass densities are most pronounced within the left lung. No acute fracture identified. Healing subacute nondisplaced fracture of the anterior right fifth rib. CT ABDOMEN/PELVIS: No free air. Extensive body wall edema. The unenhanced spleen, pancreas and adrenal glands are unremarkable. Hepatic steatosis with cirrhotic morphology. Cholelithiasis. Complex 3 cm cystic lesion with calcified septations within the inferior pole right kidney redemonstrated. There is no hydronephrosis. Decompressed urinary bladder with mild wall thickening. Small fat filled inguinal hernias. Atherosclerosis of the aorta. Borderline enlarged retroperitoneal lymph nodes measure up to 10 mm which are nonspecific. Mildly enlarged inguinal lymph nodes also present. Distal esophageal wall thickening. Large volume of abdominal pelvic ascites. Colonic diverticulosis. No small bowel obstruction. Small hiatal hernia. Varicosities noted near the distal esophagus. There is no acute fracture identified. IMPRESSION: 1. Mild multifocal pneumonia. 2. Cirrhosis with ascites, anasarca and small left pleural effusion. 3. Cholelithiasis. 4. Colonic diverticulosis. 5. Stable Bosniak IIF 3 cm cystic lesion of the right kidney. Six-month follow- up ultrasound recommended. 6. Additional findings as above. ACT 112: Negative or not required by law. Electronically signed by: Colton Arango M.D. 02/25/2024 6:[address] 02/25/24 16:46 CT chest diagnostic wo con, CT abd pelvis wo con CT DOSE: 3077.74 mGy.cm CLINICAL HISTORY: 53 years-old Male with sepsis, sob, ascites, jose angel. Acute sepsis with shortness of breath and abdominal pain TECHNIQUE: Multiaxial CT images of the chest, abdomen and pelvis were performed without contrast. A dose lowering technique was utilized adhering to the principles of ALARA. COMPARISON: 08/09/2023 FINDINGS: CT CHEST: Limited exam secondary to respiratory motion artifact, lack of contrast upper extremity positioning. Unremarkable thyroid. No pathologically enlarged lymph nodes. Mild generalized body wall edema. Heart is mildly enlarged. Decreased attenuation of the cardiac blood pool compatible with anemia. Moderate coronary artery calcifications. No thoracic aortic aneurysm. Trace right and small left pleural effusions. No pneumothorax. Pulmonary emphy sema with bronchitis and mucous plugging. Mild patchy bilateral groundglass densities are most pronounced within the left lung. No acute fracture identified. Healing subacute nondisplaced fracture of the anterior right fifth rib. CT ABDOMEN/PELVIS: No free air. Extensive body wall edema. The unenhanced spleen, pancreas and adrenal glands are unremarkable. Hepatic steatosis with cirrhotic morphology. Cholelithiasis. Complex 3 cm cystic lesion with calcified septations within the inferior pole right kidney redemonstrated. There is no hydronephrosis. Decompressed urinary bladder with mild wall thickening. Small fat filled inguinal hernias. Atherosclerosis of the aorta. Borderline enlarged retroperitoneal lymph nodes measure up to 10 mm which are nonspecific. Mildly enlarged inguinal lymph nodes also present. Distal esophageal wall thickening. Large volume of abdominal pelvic ascites. Colonic diverticulosis. No small bowel obstruction. Small hiatal hernia. Varicosities noted near the distal esophagus. There is no acute fracture identified. IMPRESSION: 1. Mild multifocal pneumonia. 2. Cirrhosis with ascites, anasarca and small left pleural effusion. 3. Cholelithiasis. 4. Colonic diverticulosis. 5. Stable Bosniak IIF 3 cm cystic lesion of the right kidney. Six-month follow- up ultrasound recommended. 6. Additional findings as above. ACT 112: Negative or not required by law. Electronically signed by: Colton Arango M.D. 02/25/2024 6:06 PM Chest X-Ray 02/25/24 20:52 XR chest 1V portable HISTORY: 53 years-old Male sob (ffup) acute shortness breath with sepsis COMPARISON: Chest CT 02/25/2024 TECHNIQUE: AP view the chest FINDINGS: Cardiomediastinal and hilar silhouettes are unchanged. Emphysema with mild patchy bilateral airspace opacities redemonstrated. No significant change. No pneumothorax or pleural effusion. Bones appear intact. Pulmonary vascular congestion suggested. IMPRESSION: Unchanged multifocal pneumonia. ACT 112: Negative or not required by law. The above report was generated using voice recognition software. It may contain grammatical, syntax or spelling errors. Electronically signed by: Colton Arango M.D. 02/26/2024 7:17 AM Venous Doppler Study 02/25/24 23:12 Exam(s): US VENOUS BILATERAL LOWER EXTREMITIES EXAM: US Duplex Bilateral Lower Extremities Veins CLINICAL HISTORY: Reason for exam: leg swelling. TECHNIQUE: Real-time duplex ultrasound scan of the bilateral lower extremity veins integrating B-mode two-dimensional vascular structure, Doppler spectral analysis, color flow Doppler imaging and compression. COMPARISON: No relevant prior studies available. FINDINGS: Right deep veins: Unremarkable. The visualized deep veins of the right lower extremity are compressible with color flow. No visualized thrombus. Right superficial veins: Unremarkable. Left deep veins: Unremarkable. The visualized deep veins of the left lower extremity are compressible with color flow. No visualized thrombus. Left superficial veins: Unremarkable. Soft tissues: Extensive subcutaneous soft tissue edema. IMPRESSION: 1. No DVT within the lower extremities. 2. Extensive subcutaneous soft tissue edema. Electronically signed by: Bon Bronson MD 02/26/24 02:53 AM Chest X-Ray 02/26/24 03:53 XR chest 1V portable HISTORY: 53 years-old Male wheeze acute shortness breath with wheezing COMPARISON: 02/25/2024 TECHNIQUE: AP view of the chest FINDINGS: Cardiomediastinal and hilar silhouettes are unchanged. Emphysema with mild patchy bilateral airspace opacities redemonstrated. No significant change. No pneumothorax or pleural effusion. Bones appear intact. Pulmonary vascular congestion suggested. IMPRESSION: Unchanged multifocal pneumonia. ACT 112: Negative or not required by law. The above report was generated using voice recognition software. It may contain grammatical, syntax or spelling errors. Electronically signed by: Colton Arango M.D. 02/26/2024 7:25 AM
[2024-02-26] MEDS: MULTIVITAMIN TAB PO SCH (10:07)
[2024-02-26] MEDS: DOXYCYCLINE HYCLATE 100 MG CAP PO SCH (10:07)
[2024-02-26] MEDS: FOLIC ACID 1 MG TAB PO SCH ×2 (10:07)
[2024-02-26] MEDS: THIAMINE HCL 100 MG TAB PO SCH (10:07)
--- NOTE | 2024-02-26 11:30 | Nephrology Consultation ---
Date of Consultation February 26, 2024 Assessment & Plan (1) CKD (chronic kidney disease) stage 4, GFR 15-29 ml/min: creatinine in high 2's since late November >> so not technically CKD 4 unless he stays in this range for another month; but CKD 4 is most appropriate available diagnosis at this time; subacute kidney injury would be best descriptor. very rapidly progressive since according to eGFR he had marginal ckd as recently as September (given creat as low as 0.6 in July). actually his presenting GFR of 25 is likely a significant underestimate of his actual renal function given cirrhosis and anasarca he could easily be ESRD. Not a dialysis candidate with active alcohol abuse due to risks of bleeding and complications of hypotension. high risk to worsen in current clinical setting of severe sepsis, decompensated cirrhosis >needs complete EtOH abstinence and nsaid avoidance >w/o respiratory issues recommend albumin 25 gm q6h x 48 hrs plus more if bleeding > for now recommend albumin plus lasix 40 mg IV tid along w/ albumin as previously mentioned >transfuse prn; may give lasix after transfusion >check bmp, mag daily >>NPO currently > if/when taking po needs low K, low Na diet with 1.5L FR -low threshold for palliative consultation, for goals of care discussion w/ family Care d/w Dr Churchill re resuscitation and lasix, labs, goals of care. (2) Severe sepsis: per primary service; febrile w/ tachycardia on arrival > covering for sbp versus aspiration or other pneumonia; ? bacteremia >> TTE pending; Strep on PCR (3) Alcoholic cirrhosis of liver with ascites: per primary service > c/b esophageal varices, encephalopathy History of Present Illness Reason for Consultation: Acute on chronic renal failure Requesting Physician: Dr Barr Attending Physician: Shauna Brantley MD History of Present Illness 53-year-old male whom I am asked to evaluate for acute on chronic renal failure was admitted last night for severe sepsis of unclear etiology (aspiration PNA versus SBP) in the setting of alcohol withdrawal; his family brought him to hospital to evaluate worsening confusion/ unresponsiveness. Past medical history includes rapidly progressive renal dysfunction in 2023, active tobacco abuse, active alcohol abuse, COPD, liver cirrhosis, significant chronic anemia with baseline hemoglobin averaging in the low sevens, complex renal cyst or annual follow-up with Urology. his baseline creatinine is somewhat labile ranging from 0.6-1.2 from July 2023 through October 17, 2023. He received IV contrast October 16 for evaluation of his liver; creatinine was 1.0 on that date. His next labs are November- with a creatinine of 2.1 down to 2.0 a week later and on January 01 with creatinine 2.8. he takes spironolactone and midodrine as an outpatient but compliance with these is spotty per report. Patient on presentation per report endorsed progressive abdominal distention and bilateral lower extremity edema over the past few months. he presented with abdominal discomfort and worsening productive thick cough including with drinking or eating. some mild dypsnea on presentation. No report of tarry stools or coffee ground emesis. He had a dose of cefepime and doxycyline in the ER, as well as 1000 mL normal saline. On admission antibiotics were changed to ertapenem and doxycycline. He received 3 doses of 25 g albumin. No standing albumin ordered currently. Pt's sats were dropping and he is currently on bipap and difficult to arouse, opens eyes but unable to give history. Allergies Allergy/AdvReac Type Severity Reaction Status Date / Time Penicillins Allergy Unknown PT WOULD Verified 02/25/24 19:50 NOT SAY WHAT HIS REACTION WAS. Home Medications Medication Instructions Recorded Confirmed Type folic acid 1 mg tablet 1 mg PO DAILY #30 tabs 08/15/23 02/25/24 Rx Patient History Medical History Homeless Current every day smoker Patient denies significant medical history Surgical History S/P cataract extraction right eye History of tonsillectomy History of hernia surgery INFANCY Family History Mother Stroke Diabetes Other Colorectal cancer Heart disease Social History Smoking Status: Current every day smoker Tobacco Type: Cigarettes Cigarettes Per Day: 5-6; Second Hand Exposure: Yes; Do You Dip or Chew Tobacco: No; Tobacco Cessation Education Requested by Patient: No Hx Alcohol Use: Yes Alcohol type: beer and wine Hx Substance Use: No Preferred Language: Yoruba Communication Ability: Effective Traveling Passenger Agent Required: No Beliefs That Will Affect Care: None Current Living Situation: Other Current Living Situation Comment: Lives with Friend in an apartment Other Information That Helps Us Care for You: No Feels Safe at Home: Yes Safety Concerns: Feels Safe At This Time Assistive Devices: Glasses and Walker Review of Systems 2 Review of Systems: Unobtainable due to endotracheal tube (d/t bipap and reduced consciousness) Physical Exam 2 Constitutional: well developed, + cachectic, + altered mental status, + frail appearing and + mechanically ventilated (bipap); no acute distress Eyes: EOM intact bilaterally ENMT: Ears: no external ear abnormality Nose: no external nose abnormality Mouth: + dry oral mucous membranes Neck: no nuchal rigidity Respiratory: normal respiratory effort Auscultation: + diminished lung sounds Cardiovascular: Rate/Rhythm: regular rate and regular rhythm Extremities: + edema Gastrointestinal (Abdomen): Inspection/Auscultation: + abdomen distended, normal bowel sounds and + abdominal edema Percussion/Palpation: abdomen soft and + ascites; abdomen nontender Musculoskeletal: Extremities: + abnormal strength Skin: no rashes, warm and dry Neurologic: dc, does not wake up to assess speech, no tremor Results & Data Vital Signs (Past 12 Hours) Vital Signs Temp Pulse Pulse Resp BP BP Pulse Ox 02/26/24 11:21 76 18 98 02/26/24 10:46 36.5 C 76 20 100/67 100 02/26/24 10:16 36.5 C 77 18 99/64 L 98 02/26/24 10:01 36.7 C 80 20 95/59 L 98 02/26/24 09:41 36.7 C 77 20 96/59 L 02/26/24 07:59 36.7 C 81 21 100/62 98 02/26/24 07:44 81 19 95 02/26/24 04:47 83 17 97 02/26/24 04:12 85 14 96 02/26/24 02:18 37.1 C 77 16 91/47 L 91 02/26/24 01:18 37.1 C 86 17 98/61 L 96 02/26/24 00:18 37.2 C 86 16 97/60 L 95 02/26/24 00:03 37.2 C 87 16 100/64 93 02/25/24 23:48 37.2 C 83 16 98/58 L 92 02/25/24 23:33 37.2 C 89 16 106/71 97 02/25/24 23:30 87 O2 Del Method FiO2 02/26/24 11:21 21 02/26/24 10:46 02/26/24 10:16 02/26/24 10:01 02/26/24 09:41 02/26/24 07:59 BiPAP 02/26/24 07:44 21 02/26/24 04:47 21 02/26/24 04:12 Room Air 02/26/24 02:18 02/26/24 01:18 02/26/24 00:18 02/26/24 00:03 02/25/24 23:48 02/25/24 23:33 02/25/24 23:30 Laboratory Results 02/26/24 05:31 02/26/24 05:31 Urinalysis specific gravity 10 19 with cloudy urine 1+ protein and bilirubin with trace ketones and leukocyte esterase and no bacteria Diagnostic Findings CT abdomen pelvis no contrast 1. Mild multifocal pneumonia. 2. Cirrhosis with (large) ascites, anasarca and small left pleural effusion. 3. Cholelithiasis. 4. Colonic diverticulosis. 5. Stable Bosniak IIF 3 cm cystic lesion of the right kidney. Six-month follow- up ultrasound recommended. 6. Additional findings as above.
--- NOTE | 2024-02-26 12:55 | Gastrointestinal Consultation ---
<Statement entered by Ailyn Nix MD - 02/26/24 17:56> I have examined the patient, reviewed the History & Physical and in the interval since the performance of the History & Physical I have noted the following changes of clinical significance: no changes noted. I agree with the documentation provided by DORENE Duran. On exam, it appears he may have LLE cellulitis. He attributes this to sunburn and asks to go home. He has poor insight into his illness. Recommend broad spectrum abx, nephrology following, trend hgb and transfuse to hgb ~7-8. Currently, he has no evidence of acute bleeding but does warrant an egd and colonoscopy when stable to do so; in vs outpatient. Currently the risks outweigh the benefit. Date of Consultation February 26, 2024 Assessment & Plan (1) Alcoholic cirrhosis of liver with ascites: -Patient is currently on IV Ertapenem and Doxy which would minimize the value of ascitic fluid studies to assess for SBP, however could consider IR guided paracentesis for therapeutic purposes if nephrology was okay with this. In the interim, will defer diuretic management to nephrology. It appears he is presently on Lasix 40 mg TID with albumin as well. -Patient has CT imaging findings of portal hypertension including splenomegaly & concern for esophageal varices. In the absence of acute GI bleeding and in the presence of pneumonia/bipap use, would avoid EGD if possible. -Can obtain acute hepatitis studies at present. -AFP ordered. Will need outpatient hepatology follow-up if/when he improves. If acute concern for HRS arises, consider transfer to a liver center. -Calculated MELD at 26. Trend PT/INR, CMP. -Avoid NSAIDS -Alcohol abstinence (2) Symptomatic anemia: -In the absence of acute GI bleeding and in the presence of pneumonia/bipap use, would avoid EGD if possible. Patient does have esophageal varices. He is on IV Pantoprazole gtt, but can add Octreotide if concern for overt GI bleeding presents itself. -Continue transfusion per primary team -Continue to monitor H/H -Can have EGD & colonoscopy as outpatient if/when acute picture resolves. Plan Treatment of pneumonia & sepsis per primary team. History of Present Illness Reason for Consultation: anemia, decompensated cirrhosis Attending Physician: Shauna Brantley MD History of Present Illness Patient is a 53 yo male with COPD, alcoholic cirrhosis, renal cyst, & chronic anemia (baseline hemoglobin 7) who presented to the ED for unresponsiveness. He reportedly has had progressive abdominal distention and bilateral leg swelling over the last couple of months. Patient not compliant with Spironolactone and Midodrine prescribed by outpatient providers and according to the chart has continued to consume alcohol. There is no reported history from family of overt GI bleeding including black/bloody stools, hematemesis/coffee ground emesis. Patient was noted to have worsening cough. In the ED, patient had a CT abdomen/pelvis/chest that indicated esophageal varices, concern for pneumonia, anasarca & large volume ascites as well as a known kidney lesion. There is clinical concern for alcohol withdrawal. He is currently on Doxycycline & Ertapenem. He had a CT abdomen/pelvis in July 2023 that showed hepatic steatosis. His H/H is 5.9/17.4. D bili 0.9, T bili 2.8, INR 1.3. AST 36, ALT 14. BUN/Cr 47/2.77. Upon my arrival, patient is on Bipap. Allergies Allergy/AdvReac Type Severity Reaction Status Date / Time Penicillins Allergy Unknown PT WOULD Verified 02/25/24 19:50 NOT SAY WHAT HIS REACTION WAS. Home Medications Medication Instructions Recorded Confirmed Type folic acid 1 mg tablet 1 mg PO DAILY #30 tabs 08/15/23 02/25/24 Rx Patient History Medical History Homeless Current every day smoker Patient denies significant medical history Surgical History S/P cataract extraction right eye History of tonsillectomy History of hernia surgery INFANCY Family History Mother Stroke Diabetes Other Colorectal cancer Heart disease Social History Smoking Status: Current every day smoker Tobacco Type: Cigarettes Cigarettes Per Day: 5-6; Second Hand Exposure: Yes; Do You Dip or Chew Tobacco: No; Tobacco Cessation Education Requested by Patient: No Hx Alcohol Use: Yes Alcohol type: beer and wine Hx Substance Use: No Preferred Language: [place] Communication Ability: Effective [employer] Clerk Required: No Beliefs That Will Affect Care: None Current Living Situation: Other Current Living Situation Comment: Lives with Friend in an apartment Other Information That Helps Us Care for You: No Feels Safe at Home: Yes Safety Concerns: Feels Safe At This Time Assistive Devices: Glasses and Walker Review of Systems Review of Systems: Other (patient on bipap at time of visit) Physical Exam Constitutional: + ill appearing Respiratory: Patient on bipap Gastrointestinal (Abdomen): Inspection/Auscultation: + abdomen distended and normal bowel sounds Psychiatric: Orientation: + not alert Results & Data Vital Signs (Past 12 Hours) Vital Signs Temp Pulse Pulse Resp BP BP Pulse Ox 02/26/24 12:22 36.4 C L 76 20 109/70 100 02/26/24 11:41 36.7 C 77 18 103/69 100 02/26/24 11:31 79 02/26/24 11:21 76 18 98 02/26/24 10:46 36.5 C 76 20 100/67 100 02/26/24 10:16 36.5 C 77 18 99/64 L 98 02/26/24 10:01 36.7 C 80 20 95/59 L 98 02/26/24 09:41 36.7 C 77 20 96/59 L 02/26/24 07:59 36.7 C 81 21 100/62 98 02/26/24 07:44 81 19 95 02/26/24 04:47 83 17 97 02/26/24 04:12 85 14 96 02/26/24 02:18 37.1 C 77 16 91/47 L 91 02/26/24 01:18 37.1 C 86 17 98/61 L 96 O2 Del Method O2 Flow Rate FiO2 02/26/24 12:22 21 02/26/24 11:41 02/26/24 11:31 02/26/24 11:21 21 02/26/24 10:46 02/26/24 10:16 02/26/24 10:01 02/26/24 09:41 02/26/24 07:59 BiPAP 02/26/24 07:44 21 02/26/24 04:47 21 02/26/24 04:12 Room Air 02/26/24 02:18 02/26/24 01:18 PG Care Time/CCT Total # of Minutes Spent Total Time Spent with Patient: Total time spent is greater than 50% in coordination of care (as documented) at patient's floor/unit and/or counseling patient: Coding Level of Care Code 62586 IN/OBS CONSULT LVL 4,60M Diagnoses Alcoholic cirrhosis of liver with ascites K70.31 Symptomatic anemia D64.9
[2024-02-26] MEDS: FUROSEMIDE INJ 20 MG/2 ML VIAL IV SCH ×2 (14:05→22:06)
--- NOTE | 2024-02-26 16:24 | Infectious Disease Consult ---
Date of Service February 26, 2024 Telehealth Information I performed this visit using a real-time telehealth connection between my location and the patients location ([facility]). After connecting through interactive tele-video, patient was identified by name and date of and/or wristband check.Patient (or authorized healthcare inbound call center representative) was informed that this was a telemedicine visit and it was being conducted confidentially over secure lines. My office door was closed and no one else was present in the room with me.Patient (or authorized healthcare inbound call center representative) provided consent to proceed with the visit, expressed an understanding of privacy and security of the telemedicine visit, and gave permission to have a hospital inbound call center representative in the room in order to assist with the visit and to conduct portions of the visit, as needed. I informed the patient (or authorized healthcare inbound call center representative) that I reviewed their record and presented the opportunity for them to ask any questions regarding the visit today. The patient agreed to participate. Assessment & Plan (1) Positive blood culture: Plan: The culture from 02/24 shows only 1 of 4 bottles with Strep species. [facility] did not ID it further. If this is just a viridans Strep, then it is likely not clinically relevant unless more bottles turn positive. If it is a beta-hemolytic Strep, then it is relevant and would have likely come from his LE. (2) Alcoholic cirrhosis of liver with ascites: Plan: His cirrhosis appears not well compensated, though the peritoneal fluid shows no signs of peritonitis at this time. It is contributing to his significant LE edema. (3) Multifocal pneumonia: Plan: He has mild respiratory symptoms, but the chest CT suggests multifocal pneumonia. I suspect this is due to recurrent aspiration. Plan At this time, I would suggest we D/C the ertapenem and doxycycline and instead start ceftriaxone 2g IV qd. If the blood culture turns out to just be 1 of 4 bottles with viridans Strep, then this should not require further evaluation or therapy. If it is a beta-Strep, however, our approach may need to be adjusted. Treating him for at least 5 days with abx for his pneumonia is not unreasonable regardless. This could potentially be narrowed to a PO option however based on further micro testing. Final abx plans remain pending at this time. History of Present Illness History of Present Illness Mr. Amador is a 53yo male with a h/o COPD, EtOH abuse, cirrhosis and CKD. He was brought to the [facility] ED when his sister noted him to be increasingly weak and lethargic. In the ED he was diagnosed with pneumonia and possible LE cellulitis. He was started on ertapenem and doxycycline. Blood cultures subsequently turned positive in 1 of 4 bottles for Strep species. He states that he was having increasing pain and swelling in his legs at home. Although he feels better now, he still has pain in his legs. He denies feeling SOB, but states he occasionally feels a little "tight." He has chronic cough which he attributes to smoking. No chest pains or fevers at home. He expresses a strong desire to be discharged soon, but has yet to get out of bed today. No N/V or diarrhea, but has loose stools intermittently. Allergies Allergy/AdvReac Type Severity Reaction Status Date / Time Penicillins Allergy Unknown PT WOULD Verified 02/25/24 19:50 NOT SAY WHAT HIS REACTION WAS. Home Medications Medication Instructions Recorded Confirmed Type folic acid 1 mg tablet 1 mg PO DAILY #30 tabs 08/15/23 02/25/24 Rx Patient History Medical History Homeless Current every day smoker Patient denies significant medical history Surgical History S/P cataract extraction right eye History of tonsillectomy History of hernia surgery INFANCY Family History Mother Stroke Diabetes Other Colorectal cancer Heart disease Social History Smoking Status: Current every day smoker Tobacco Type: Cigarettes Cigarettes Per Day: 5-6; Second Hand Exposure: Yes; Do You Dip or Chew Tobacco: No; Tobacco Cessation Education Requested by Patient: No Hx Alcohol Use: Yes Alcohol type: beer and wine Hx Substance Use: No Preferred Language: Greek Communication Ability: Effective [employer] Team Member Required: No Beliefs That Will Affect Care: None Current Living Situation: Other Current Living Situation Comment: Lives with Friend in an apartment Other Information That Helps Us Care for You: No Feels Safe at Home: Yes Safety Concerns: Feels Safe At This Time Assistive Devices: None Review of Systems Gen- Generalized weakness HEENT- no headache, sore throat or visual changes Resp- Feels a little "tight", + chronic cough CV- No chest pain GI- No N/V, some loose stool - No dysuria MSK- Pain in bilateral legs Ext- Positive edema Skin- No rash Physical Exam Gen- Chronically ill HEENT- NC AT, neck with normal ROM Resp- Normal respiratory rate on room air Abd- Mild distension Ext- 2+ edema bilaterally Skin- No rash Neuro- Lethargic, but alert and oriented x 3 Results & Data Vital Signs (Past 12 Hours) Vital Signs Temp Pulse Pulse Resp BP BP Pulse Ox 02/26/24 15:10 36.6 C 79 21 111/74 98 02/26/24 14:31 74 02/26/24 12:22 36.4 C L 76 20 109/70 100 02/26/24 11:41 36.7 C 77 18 103/69 100 02/26/24 11:31 79 02/26/24 11:21 76 18 98 02/26/24 10:46 36.5 C 76 20 100/67 100 02/26/24 10:16 36.5 C 77 18 99/64 L 98 02/26/24 10:01 36.7 C 80 20 95/59 L 98 02/26/24 09:41 36.7 C 77 20 96/59 L 02/26/24 07:59 36.7 C 81 21 100/62 98 02/26/24 07:50 02/26/24 07:44 81 19 95 02/26/24 04:47 83 17 97 O2 Del Method O2 Flow Rate FiO2 02/26/24 15:10 Room Air 02/26/24 14:31 02/26/24 12:22 21 02/26/24 11:41 02/26/24 11:31 02/26/24 11:21 21 02/26/24 10:46 02/26/24 10:16 02/26/24 10:01 02/26/24 09:41 02/26/24 07:59 BiPAP 02/26/24 07:50 Room Air 02/26/24 07:44 21 02/26/24 04:47 21 Laboratory Results WBC 12.14 -> 7.59 Hgb 5.9 Platelets 113 Na 129 Creatinine 2.77 BUN 47 Total bili 2.8 ALT 14 Albumin 2.5 Lactate 2.5 -> 1.1 UA with 0-5 WBC, 0-2 RBC Peritoneal fluid: 48 WBC (38% polys) Diagnostic Findings RVP negative Blood cultures 02/25/24 with 1 of [address] chest from 02/25/24 reviewed by me: likely multifocal pneumonia, ascites, cirrhosis
[2024-02-26] MEDS: oxyCODONE HCL IR 5 MG TAB (IMMEDIATE RELEASE) PO PRN (16:58)
[2024-02-26 17:07] LABS: Hematocrit (blood only) 23.4 % (42.0-52.0); Hemoglobin 7.7 g/dl (14.0-18.0)
[2024-02-26 17:50] LABS: Hep B Surface Ag with confirm Negative (Negative)
[2024-02-26 17:56] LABS: Hep C Ab Rflx HepCQuant RNA Negative (Negative)
[2024-02-26] MEDS ORDERED: FUROSEMIDE INJ 20 MG/2 ML VIAL IV SCH (21:00)
[2024-02-26] MEDS ORDERED: GABAPENTIN 600 MG TAB PO SCH (21:15)
--- NOTE | 2024-02-26 21:47 | Electrocardiogram Report ---
Test Reason : Blood Pressure : / mmHG Vent. Rate : 109 BPM Atrial Rate : 109 BPM P-R Int : 132 ms QRS Dur : 090 ms QT Int : 332 ms P-R-T Axes : 031 062 049 degrees QTc Int : 447 ms Sinus tachycardia Low voltage QRS Borderline ECG When compared with ECG of 10-AUG-2023 06:32, Non-specific change in ST segment in Anterior leads QT has shortened Confirmed by Gen Mazariegos ([id number]) on 02/26/2024 9:47:47 PM Referred By: REFERRED SELF Confirmed By:Gen Mazariegos
--- NOTE | 2024-02-26 21:49 | Electrocardiogram Report ---
Test Reason : Blood Pressure : / mmHG Vent. Rate : 096 BPM Atrial Rate : 096 BPM P-R Int : 150 ms QRS Dur : 088 ms QT Int : 320 ms P-R-T Axes : 028 060 033 degrees QTc Int : 404 ms Normal sinus rhythm Low voltage QRS Borderline ECG When compared with ECG of 25-FEB-2024 19:32, Vent. rate has decreased BY 58 BPM Sinus rhythm has replaced Supraventricular tachycardia Confirmed by Gen Mazariegos ([id number]) on 02/26/2024 9:49:14 PM Referred By: REFERRED SELF Confirmed By:Gen Mazariegos
--- NOTE | 2024-02-26 21:49 | Electrocardiogram Report ---
Test Reason : Blood Pressure : / mmHG Vent. Rate : 154 BPM Atrial Rate : 000 BPM P-R Int : 000 ms QRS Dur : 080 ms QT Int : 296 ms P-R-T Axes : 000 058 026 degrees QTc Int : 474 ms Supraventricular tachycardia Low voltage QRS Nonspecific ST abnormality Abnormal ECG When compared with ECG of 25-FEB-2024 16:15, Supraventricular tachycardia has replaced Sinus rhythm Confirmed by Gen Mazariegos ([id number]) on 02/26/2024 9:48:56 PM Referred By: REFERRED SELF Confirmed By:Gen Mazariegos
[2024-02-26] MEDS: ERTAPENEM SODIUM 1,000 MG in SYRINGE 0 ML IV SCH (22:03)
[2024-02-26 22:53] LABS: Hematocrit (blood only) 21.4 % (42.0-52.0); Hemoglobin 7.2 g/dl (14.0-18.0)
--- NOTE | 2024-02-27 01:54 | Communication Note ---
Date of Service: February 27, 2024 Patient with rapid A-fib on the monitor heart rate 110s SBP 100s AP New onset A-fib Digoxin 1 dose now given borderline BP Initiate low-dose beta-demetris in a.m. if BP will tolerate Cardiology consult Re: New onset A-fib
[2024-02-27] MEDS: DIGOXIN 125 MCG in SYRINGE 9.5 ML IV STA (02:20)
[2024-02-27] MEDS: MAGNESIUM SULFATE / D5W 1 GM/100 ML BAG IV ONE (02:29)
--- NOTE | 2024-02-27 06:27 | Gastroenterology Progress Note ---
<Statement entered by Ailyn Nix MD - 02/27/24 15:29> I have examined the patient, reviewed the History & Physical and in the interval since the performance of the History & Physical I have noted the following changes of clinical significance: no changes noted. I agree with the documentation provided by DORENE Duran with no additional comments. Anticipate EGD in the next 1-2 days pending other acute issues. Kidney injury treatment as per nephrology. Receiving albumin; defer to nephrology re octreotide or midodrine. Date of Service February 27, 2024 Assessment & Plan (1) Symptomatic anemia: Plan: -Continue to monitor H/H -Continue to monitor for overt GI bleeding -Will need EGD & colonoscopy when medical issues improve -Continue IV Protonix gtt for now (2) Alcoholic cirrhosis of liver with ascites: Plan: -Will need ongoing outpatient management/HCC surveillance with hepatology services -Alcohol abstinence is advised -Diuretics being managed by nephrology -Will need EGD to assess probable varices when recovered from pneumonia & bacteremia -2 gm Na restricted diet -Avoidance of NSAIDs; Ok to use Tylenol up to 2000 mg in divided q 6 hr doses da marti prn. -Follow LFTs, INR Admission and Anticipated Discharge Date Admission Date: February 25, 2024 Subjective Patient is a 53 yo male with cellulitis, alcohol withdrawal, sepsis, & pneumonia whom GI is following for his decompensating liver disease as well as anemia. H/H presently stable at 7.2/21.4. No overt GI bleeding. Patient is currently on room air. He is tachycardic. He continues IV antibiotics under the advisement of ID services. Nephrology is following due to his CKD4. He notes he is tired this AM. NO overt bleeding. Review of Systems Gastrointestinal: no abdominal pain, no coffee ground emesis, no hematemesis, no blood in stools and no melena Physical Exam Constitutional: + ill appearing Respiratory: no respiratory distress Gastrointestinal (Abdomen): Inspection/Auscultation: + abdomen distended Percussion/Palpation: abdomen nontender Psychiatric: Orientation: alert and oriented x 3 Results & Data Results & Data Vital Signs (Past 12 Hours) Vital Signs Temp Pulse Pulse Resp BP Pulse Ox O2 Del Method 02/27/24 02:26 36.6 C 122 H 19 100/72 97 Room Air 02/27/24 02:20 108 H 02/26/24 23:04 36.7 C 108 H 18 100/67 98 Room Air 02/26/24 22:15 Room Air 02/26/24 21:49 78 02/26/24 19:00 36.7 C 76 18 100/64 99 Room Air PG Care Time/CCT Total # of Minutes Spent Total Time Spent with Patient: Total time spent is greater than 50% in coordination of care (as documented) at patient's floor/unit and/or counseling patient: Coding Level of Care Code 39609 SUB INP/OBS CARE 3/50MIN Diagnoses Symptomatic anemia D64.9 Alcoholic cirrhosis of liver with ascites K70.31
[2024-02-27 06:30] LABS: Basophils # (auto) 0.01 K/uL (0.00-0.20); Basophils % (auto) 0.1 %; Eosinophils # (auto) 0.17 K/uL (0.00-0.50); Eosinophils % (auto) 1.8 %; Hematocrit (blood only) 22.2 % (42.0-52.0); Hemoglobin 7.4 g/dl (14.0-18.0); Immature Granulocytes # (auto) 0.11 K/uL (0.01-0.20); Immature Granulocytes % (auto) 1.1 %; Lymphocytes # (auto) 1.05 K/uL (1.20-3.40); Lymphocytes % (auto) 10.9 %; Mean Corpuscular Hemoglobin 31.6 pg (25.0-34.0); Mean Corpuscular Hgb Conc 33.3 g/dL (32.0-36.0); Mean Corpuscular Volume 94.9 fL (80.0-100.0); Mean Platelet Volume 10.4 fL (9.4-12.4); Monocytes % (auto) 5.2 %; Neutrophils # (auto) 7.75 K/uL (1.40-6.50); Neutrophils % (auto) 80.9 %; Platelet Count 115 K/uL (130-400); RDW Coefficient of Variation 17.2 % (11.5-14.5); Red Blood Count 2.34 M/uL (4.70-6.10); White Blood Count 9.59 K/ul (4.8-10.8)
[2024-02-27 06:50] LABS: Albumin Globulin Ratio 0.8 (0.9-2); BUN Creatinine Ratio 17.8 (10-20); Bilirubin,Total 2.8 mg/dl (0.2-1.0); Calcium 8.2 mg/dl (8.6-10.3); Creatinine Clr Calc Pharmacy 42.6 ml/min; Est GFR (African American) 31.1 ml/min; Est GFR (Non-African American) 26.8 ml/min; Globulin 3.6 gm/dl (2.5-4.0); Phosphorus 4.8 mg/dl (2.5-4.9); Potassium 4.7 mmol/L (3.5-5.1); Total Protein 6.6 gm/dl (6.0-8.3)
[2024-02-27 06:59] LABS: Acanthocytes 1+; Echinocytes 1+; Polychromasia 1+
--- NOTE | 2024-02-27 07:06 | Electrocardiogram Report ---
Test Reason : Blood Pressure : / mmHG Vent. Rate : 133 BPM Atrial Rate : 122 BPM P-R Int : 000 ms QRS Dur : 084 ms QT Int : 312 ms P-R-T Axes : 000 098 038 degrees QTc Int : 464 ms Atrial fibrillation with rapid ventricular response Rightward axis Low voltage QRS Abnormal ECG When compared with ECG of 25-FEB-2024 19:33, Atrial fibrillation has replaced Sinus rhythm Confirmed by Gen Mazariegos ([id number]) on 02/27/2024 7:05:37 AM Referred By: REFERRED SELF Confirmed By:Gen Mazariegos
[2024-02-27] MEDS: METOPROLOL TARTRATE 25 MG TAB PO SCH (09:14)
--- NOTE | 2024-02-27 10:03 | Hospitalist Progress Note ---
Date of Service February 27, 2024 Assessment & Plan (1) Severe sepsis: Plan Pt is a 53yoM with PMHx significant for alcoholic cirrhosis, COPD, renal cyst, CKD (baseline creatinine 2s), chronic anemia (baseline hemoglobin of 7) presenting with altered mental status. Bacteremia Severe sepsis, POA Pneumonia, possible aspiration Possible cellulitis Pt presenting with altered mental status Febrile with tachycardia on arrival lactate elevated at 3.3 with decrease to normal after fluid resuscitation procalcitonin elevated at 2.[address] chest concerning for pneumonia UA without infectious signs possible SBP Bilateral LE cellulitis rule out DVT Blood culture 1/4 bottles growing Group C beta strep serology pcr notes strep TTE with no signs of endocarditis Treated initially with IV ertapenem and doxycycline ID consulted, appreciate recs. recommended/stated the following: -"At this time, I would suggest we D/C the ertapenem and doxycycline and instead start ceftriaxone 2g IV qd. If the blood culture turns out to just be 1 of 4 bottles with viridans Strep, then this should not require further evaluation or therapy. If it is a beta-Strep, however, our approach may need to be adjusted. Treating him for at least 5 days with abx for his pneumonia is not unreasonable regardless. This could potentially be narrowed to a PO option however based on further micro testing. Final abx plans remain pending at this time." 02/26- Pt started on IV Ceftriaxone 2g daily per ID recs. PO Flagyl added for aspiration pneumonia anaerobic coverage. Will likely need further ID followup/recs. Cognizant of blood Cx shortage, consider repeating blood Cx. Acute on chronic blood loss anemia Esophageal Varices Upper GI Bleed Hgb of 5.5 on arrival with transfusion of 2U pRBCs so far Currently hgb at 5.9 likely UGIB given heme positive dark stools on FOBT done at the ER pt with noted varicosities on imaging Anemia panel noting iron, b12 and folate levels wnl Continue to transfuse as needed, Transfuse PRBC to maintain hemoglobin of at least 7 ppi drip GI consulted, appreciate recs. Recommended or stated the following: -"Continue to monitor H/H -Continue to monitor for overt GI bleeding -Will need EGD & colonoscopy when medical issues improve -Continue IV Protonix gtt for now" Continue to monitor Cirrhosis, decompensated Pt with Hx CT chest and abd/pelvis concerning for ascites and anasarca Occasional hypotension IV albumin for possible SBP s/p paracentesis on 02/24 -?6L removed yellow cloudy fluid -follow culture and cell counts GI consulted, appreciate recs "Will need ongoing outpatient management/HCC surveillance with hepatology services -Alcohol abstinence is advised -Diuretics being managed by nephrology -Will need EGD to assess probable varices when recovered from pneumonia & bacteremia -2 gm Na restricted diet -Avoidance of NSAIDs; Ok to use Tylenol up to 2000 mg in divided q 6 hr doses daily prn. -Follow LFTs, INR Continue to monitor Acute Kidney Injury Cr elevated above baseline from july at 2.9 -2.8 Limited fluid use in setting of above Nephrology consulted, appreciate further recs -Discussed with Dr Fontaine, IV Lasix 20mg QID ordered with albumin Stable Hyponatremia Sodium of 128-129 Nephrology consulted, appreciate recs Hypocalcemia Ionized filippo normal Thrombocytopenia Plates of 113 on admission Likely in setting of chronic alcohol use Elevated trop Demand ischemia Trop elevated at 42.9 to 41.4 EKG with sinus tachycardia Echo as above Likely demand in setting of above, doubt ACS R kidney Cystic Lesion Noted on imaging patient follows with [facility] urologist 6 month follow up US recommended PCP followup Chronic alcohol use AWSS, DT precautions Encourage cessation Diet: hh/low sodium DVT prophylaxis: SCDs Dispo: PT/OT for further recs once more stable Admission and Anticipated Discharge Date Admission Date: February 25, 2024 Subjective Pt was seen multiple times during the day. Initially in the AM awake and alert. States sleepy. Pt's sister was contacted by telephone in the AM and then later was present in pt's room. called to bedside to discuss pt's code status with pt and sister present. Pt AAOx3 (knew the year but was confused about month and date) pt states that he wants to be a full code, would like CPR, defibrillation and intubation if needed. Review of Systems Review of Systems: All systems reviewed & are unremarkable except as noted in Subjective Physical Exam Physical Exam: General: alert and oriented Skin: erythema and swelling of lower extremities bilaterally Psych: appropriate mood and affect Neuro: difficulty with movements in the bed HEENT: NC/AT CV: irregular Resp: breath sounds with wheezes bilaterally Abdomen: tender, distended Extremities: edema in lower extremities bilaterally. Results & Data Results & Data Vital Signs (Past 12 Hours) Vital Signs Temp Pulse Pulse Resp BP Pulse Ox O2 Del Method 02/27/24 07:39 79 02/27/24 07:25 36.4 C L 81 20 101/64 97 Room Air 02/27/24 02:26 36.6 C 122 H 19 100/72 97 Room Air 02/27/24 02:20 108 H 02/26/24 23:04 36.7 C 108 H 18 100/67 98 Room Air 02/26/24 22:15 Room Air
--- NOTE | 2024-02-27 10:35 | Cardiology Consultation ---
Date of Consultation February 27, 2024 Assessment & Plan (1) PAF (paroxysmal atrial fibrillation): (2) Hypervolemia: (3) Metabolic encephalopathy: (4) Severe sepsis: (5) CKD (chronic kidney disease) stage 4, GFR 15-29 ml/min: (6) Alcoholic cirrhosis of liver with ascites: (7) Abdominal ascites: (8) Tobacco use: Plan Pneumonia. Cellulitis. Bacteremia. Sepsis. As per Hospitalist Hypervolemia. Diuretics are being managed by Nephrology Paroxysmal atrial fibrillation. Not unexpected given acute stressors. Currently in sinus rhythm. Agree with addition of low-dose beta-demetris therapy; continue low dose beta-demetris therapy long-term in the form of metoprolol succi shahnaz. Patient with contraindications to anticoagulation. Coronary artery calcifications via CT imaging. If able from a GI standpoint, recommend aspirin 81 mg/day and statin therapy, targeting an LDL cholesterol goal of less than 70 mg/dL. I spent a total of 35 minutes on the date of service in preparation, delivery, and documentation of the care provided to this patient excluding any time spent in the performance of separately billed services. This visit was a split-shared visit with the substantive portion of the medical decision making performed by the supervising stock selector/billing provider. Supervising Physician Co-Signing Physician Notes Patient was seen and personally examined. Assessment and plan as extensively outlined above. Care and management discussed with advanced provider and personally endorsed Acutely and chronically ill 53-year-old male had transient atrial fibrillation last evening as culmination and multiple medical stressors. Spontaneously converted to sinus rhythm. Echocardiogram as noted preserved LV systolic function no left atrial dilatation. Patient with multiple contraindications to anticoagulation Recommendations: As above continue beta-demetris therapy to aid in arrhythmias as well as possible portal hypertension. At risk for recurrence due to medical morbidities. I spent a total of 35 minutes on the date of service in preparation, delivery, and documentation of the care provided to this patient excluding any time spent in the performance of separately billed services History of Present Illness Reason for Consultation: Atrial fibrillation Requesting Physician: Dr. Barr Attending Physician: Dr. Shauna Brantley MD History of Present Illness Rashel Amador is a 53-year-old male who was admitted to [facility] on February 25, 2024, presenting to the ER via EMS with altered mental status. History notable for alcoholic cirrhosis with ascites and esophageal varices, chronic anemia, COPD with continued tobacco abuse, stage III-IV chronic kidney disease Workup revealed possible aspiration pneumonia, bilateral lower extremity cellulitis, bacteremia with 1 of 4 cultures growing gram-positive cocci in chains, acute on chronic anemia with hemoglobin of 5.5 g/dL, suspected upper GI bleeding status post transfusion of 2 units packed red blood cells. Patient without prior cardiac history. Initial EKG on presentation revealed sinus tachycardia without acute ST segment change. A second EKG on February 25, 2024 revealed SVT versus 2-1 atrial flutter with ventricular rate of 154 bpm. Last evening, via telemetry, patient was noted to be in atrial fibrillation with a rapid ventricular response (133 bpm). Patient received 125 mcg of IV digoxin. Review of patient's continuous lunchroom monitor reveals paroxysmal atrial fibrillation with initiation at 22:53 and conversion back to sinus rhythm at 4:54. He is currently in sinus rhythm in the 70s. The patient noted he was tired and wanted to be left alone. He would not answer most of my questions. He denies prior cardiac history. He denies palpitations. He denies chest pain. Family History: Mother had a stroke. Paternal grandfather with colon cancer. Social History: Smoker. Alcoholic. Originally from [place]. Sister Manuela. Allergies Allergy/AdvReac Type Severity Reaction Status Date / Time Penicillins Allergy Unknown PT WOULD Verified 02/25/24 19:50 NOT SAY WHAT HIS REACTION WAS. Home Medications Medication Instructions Recorded Confirmed Type folic acid 1 mg tablet 1 mg PO DAILY #30 tabs 08/15/23 02/25/24 Rx Patient History Medical History Homeless Current every day smoker Patient denies significant medical history Surgical History S/P cataract extraction right eye History of tonsillectomy History of hernia surgery INFANCY Family History Mother Stroke Diabetes Other Colorectal cancer Heart disease Social History Smoking Status: Current every day smoker Tobacco Type: Cigarettes Cigarettes Per Day: 5-6; Second Hand Exposure: Yes; Do You Dip or Chew Tobacco: No; Tobacco Cessation Education Requested by Patient: No Hx Alcohol Use: Yes Alcohol type: beer and wine Hx Substance Use: No Preferred Language: Bangladeshi Communication Ability: Effective Hand Zipper Trimmer Required: No Beliefs That Will Affect Care: None Current Living Situation: Other Current Living Situation Comment: Lives with Friend in an apartment Other Information That Helps Us Care for You: No Feels Safe at Home: Yes Safety Concerns: Feels Safe At This Time Assistive Devices: None Review of Systems Review of Systems: Unable to be obtained. Physical Exam Physical Exam: General: Alert to person and place. Lethargic. Chronically ill appearing. HENT: Normocephalic. Atraumatic. Eyes: PER. Conjunctiva pink, sclera pale Neck: JVD. HJR. No carotid bruits. Heart: RRR, 70 bpm. No murmur. No rub. Lungs: Diminished. Decreased. Diffuse expiratory wheezing. Abdomen: +BS. Distended. No masses. Extremities: 2+ left greater than right lower extremity edema with left greater than right lower extremity erythema, cellulitis. Limited neurological examination is without focal deficits. Pulses: posterior tibial=0/4. Results & Data Vital Signs (Past 12 Hours) Vital Signs Temp Pulse Pulse Resp BP Pulse Ox O2 Del Method 02/27/24 07:39 79 02/27/24 07:25 36.4 C L 81 20 101/64 97 Room Air 02/27/24 02:26 36.6 C 122 H 19 100/72 97 Room Air 02/27/24 02:20 108 H 02/26/24 23:04 36.7 C 108 H 18 100/67 98 Room Air Laboratory Results Cardiac Enzymes 02/27/24 Range/Units 06:04 AST 29 (13-39) U/L CBC 02/26/24 02/26/24 02/27/24 Range/Units 16:41 22:38 06:04 WBC 9.59 (4.8-10.8) K/ul RBC 2.34 L (4.70-6.10) M/uL Hgb 7.7 L 7.2 L 7.4 L (14.0-18.0) g/dl Hct 23.4 L 21.4 L 22.2 L (42.0-52.0) % Plt Count 115 L (130-400) K/uL Neut # (Auto) 7.75 H (1.40-6.50) K/uL Lymph # (Auto) 1.05 L (1.20-3.40) K/uL [place] # (Auto) 0.50 (0.11-0.59) K/uL Eos # (Auto) 0.17 (0.00-0.50) K/uL Baso # (Auto) 0.01 (0.00-0.20) K/uL Comprehensive Metabolic Panel 02/27/24 Range/Units 06:04 Sodium 130 L (136-145) mmol/L Potassium 4.7 (3.5-5.1) mmol/L Chloride 100 (98-107) mmol/L Carbon Dioxide 23 (21-32) mmol/L BUN 47 H (6-23) mg/dl Creatinine 2.64 H (0.6-1.4) mg/dl Glucose 107 H (70-99(Fasting)) mg/dl Calcium 8.2 L (8.6-10.3) mg/dl AST 29 (13-39) U/L ALT 12 (7-52) U/L Alkaline Phosphatase 32 L (34-104) U/L Total Protein 6.6 (6.0-8.3) gm/dl Albumin 3.0 L (3.4-5.0) gm/dl Intake and Output 02/26/24 02/27/24 02/27/24 22:59 06:59 14:59 Intake Total 316.333 / 1512.333 686.000 / 1512.333 Output Total 600 / 1150 550 / 1150 Balance -283.667 / 362.333 136.000 / 362.333 Intake: IV 196.333 / 882.333 486.000 / 882.333 Albumin 25% 25 gm In 100 ml @ 200 / 300 50 mls/hr IV Q8H GAIL Rx#: [id number] Magnesium Sulfate / D5w 1 gm In 100 / 100 100 ml @ 50 mls/hr IV ONE ONE Rx#:[id number] PANTOprazole 40 mg In Dextrose 196.333 / 482.333 186.000 / 482.333 5% Mini-B 100 ml @ 8 MG/HR 20 mls/hr IV Q5H GAIL Rx#:[id number] Oral 120 / 320 200 / 320 Output: Urine Amount (Catheter) 600 / 1150 550 / 1150 [place]/Indwelling 600 / 1150 550 / 1150 Other: Weight 110.8 kg Weight Measurement Method Built in [facility] Diagnostic Findings February 26, 2024 TTE ([facility], Dr. Martinez): Normal size LV. Mild concentric LVH. Normal LV wall motion. EF 60 to 65%. Normal size left atrium. No valvular disease observed with normal Doppler examination in 2D imaging within the limitations of transthoracic study of good technical quality.
--- NOTE | 2024-02-27 14:07 | Nephrology Progress Note ---
Date of Service February 27, 2024 Assessment & Plan (1) CKD (chronic kidney disease) stage 4, GFR 15-29 ml/min: Plan: creatinine in high 2's since late November >> so not technically CKD 4 unless he stays in this range for another month; but CKD 4 is most appropriate available diagnosis at this time; although subacute kidney injury would be best descriptor. very rapidly progressive since according to eGFR he had marginal ckd as recently as September (given creat as low as 0.6 in July). actually his presenting GFR of 25 is likely a significant underestimate of his actual renal function given cirrhosis and anasarca he could easily be ESRD. Not a dialysis candidate with active alcohol abuse due to risks of bleeding and complications of hypotension. high risk to worsen in current clinical setting of severe sepsis, decompensated cirrhosis miminally improved creatinine today >needs complete EtOH abstinence and nsaid avoidance >w/o respiratory issues recommend albumin 25 gm q6h x 48 hrs plus more if bleeding > for now recommend albumin plus lasix increased to 30 mg IV qid >transfuse prn; may give extra lasix after transfusion >check bmp, mag daily >>continue low K, low Na diet with 1.5L FR -low threshold for palliative consultation, for goals of care discussion w/ family Care d/w Dr Brantley re resuscitation and lasix, labs (2) Severe sepsis: Plan: per primary service; febrile w/ tachycardia on arrival > F for now resolved; covering for sbp versus aspiration or other pneumonia; ? bacteremia; LE wound >> TTE unremarkable; Strep on PCR; ID following (3) Alcoholic cirrhosis of liver with ascites: Plan: per primary service > c/b esophageal varices, encephalopathy Admission and Anticipated Discharge Date Admission Date: February 25, 2024 Subjective ID following and recommending narrowed abtx; AF w/ RVR ON > on low dose BB. more awake today but still lethargic, answers appropriately only at times. denies pain; denies sob; denies broken skin lower leg. tells me he wants to get dressed now. Review of Systems 2 Review of Systems: All systems reviewed & are unremarkable except as noted in Subjective (limited by at least mild encephalopathy) Physical Exam 2 Constitutional: well developed, + cachectic, + altered mental status and + frail appearing; no acute distress Eyes: EOM intact bilaterally; sclerae not anicteric ENMT: Ears: no external ear abnormality Nose: no external nose abnormality Mouth: + dry oral mucous membranes Neck: no nuchal rigidity Respiratory: normal respiratory effort Auscultation: + diminished lung sounds Cardiovascular: Rate/Rhythm: regular rate and regular rhythm Extremities: + edema (3+ BLE) Gastrointestinal (Abdomen): Inspection/Auscultation: + abdomen distended, normal bowel sounds and + abdominal edema Percussion/Palpation: abdomen soft and + ascites; abdomen nontender Musculoskeletal: Extremities: + abnormal strength Skin: no rashes, warm and dry Neurologic: arouseable; fluent speech but not on topic really, dc Results & Data Vital Signs (Past 12 Hours) Vital Signs Temp Pulse Pulse Resp BP Pulse Ox O2 Del Method 02/27/24 10:57 36.6 C 66 20 100/55 L 98 Room Air 02/27/24 07:39 79 02/27/24 07:25 36.4 C L 81 20 101/64 97 Room Air 02/27/24 02:26 36.6 C 122 H 19 100/72 97 Room Air 02/27/24 02:20 108 H Laboratory Results 02/27/24 06:04 02/27/24 06:04
[2024-02-27] MEDS: cefTRIAXone SODIUM 2,000 MG/50 ML BAG IV SCH (15:02)
[2024-02-27] MEDS: FUROSEMIDE 40 MG/4 ML VIAL IV SCH (16:54)
[2024-02-27] MEDS: metroNIDAZOLE 500 MG/100 ML BAG IV SCH (16:57)
[2024-02-27] MEDS ORDERED: GABAPENTIN 400 MG CAP PO SCH (21:15)
[2024-02-27 22:57] LABS: Marijuana Quant, GCMS Urine 81 ng/mL (<5)
[2024-02-28 06:39] LABS: Hemoglobin 6.5 g/dl (14.0-18.0); Mean Corpuscular Hemoglobin 31.9 pg (25.0-34.0); Mean Corpuscular Hgb Conc 34.2 g/dL (32.0-36.0); Mean Corpuscular Volume 93.1 fL (80.0-100.0); Mean Platelet Volume 10.4 fL (9.4-12.4); Platelet Count 97 K/uL (130-400); RDW Coefficient of Variation 16.7 % (11.5-14.5); RDW Standard Deviation 54.8 fL (36.4-46.3); Red Blood Count 2.04 M/uL (4.70-6.10)
[2024-02-28] MEDS ORDERED: SODIUM CHLORIDE 0.9% 250 ML IV PRN (06:41)
[2024-02-28 06:42] LABS: BUN Creatinine Ratio 19.1 (10-20); Bilirubin,Total 2.1 mg/dl (0.2-1.0); Calcium 8.2 mg/dl (8.6-10.3); Creatinine Clr Calc Pharmacy 47.1 ml/min; Est GFR (African American) 35.6 ml/min; Est GFR (Non-African American) 30.7 ml/min; Globulin 3.1 gm/dl (2.5-4.0); Magnesium 1.7 mg/dl (1.7-2.4); Potassium 4.6 mmol/L (3.5-5.1); Total Protein 6.1 gm/dl (6.0-8.3)
[2024-02-28 06:47] LABS: INR 1.5 (0.9-1.1); Prothrombin Time 15.8 Seconds (9.0-12.0)
[2024-02-28 07:12] LABS: Basophils # (auto) 0.01 K/uL (0.00-0.20); Basophils % (auto) 0.2 %; Echinocytes 1+; Eosinophils # (auto) 0.17 K/uL (0.00-0.50); Eosinophils % (auto) 2.6 %; Immature Granulocytes # (auto) 0.11 K/uL (0.01-0.20); Immature Granulocytes % (auto) 1.7 %; Lymphocytes % (auto) 15.2 %; Monocytes # (auto) 0.42 K/uL (0.11-0.59); Monocytes % (auto) 6.4 %; Neutrophils # (auto) 4.89 K/uL (1.40-6.50); Neutrophils % (auto) 73.9 %
--- NOTE | 2024-02-28 10:03 | Nephrology Progress Note ---
Date of Service February 28, 2024 Assessment & Plan (1) CKD (chronic kidney disease) stage 4, GFR 15-29 ml/min: Plan: since arrival here stable CKD; creatinine in high 2's since late November >> so not technically CKD 4 unless he stays in this range until late February; but CKD 4 is most appropriate available diagnosis at this time; although subacute kidney injury would be best descriptor. very rapidly progressive since according to eGFR he had only marginal ckd as recently as September (given creat as low as 0.6 in July). actually his presenting GFR here of 25 is likely a significant underestimate of his actual renal function given cirrhosis and anasarca he could easily be ESRD. Not a dialysis candidate with active alcohol abuse due to bleeding/hypotension complications. high risk to worsen in current clinical setting of severe sepsis, decompensated cirrhosis hepatorenal syndrome would be on differential here but he needs diuretics > unable to stop them at this time; would not hurt to treat empirically though will need to continue diuretics as well miminally improved creatinine again today >needs complete EtOH abstinence and nsaid avoidance >continue albumin and midodrine and octreotide >cont lasix 30 mg IV qid >transfuse prn; pls give extra lasix dose after every unit pRBC 30 or even 40 mg IV >check bmp, mag daily >>continue low K, low Na diet with 1.5L FR -low threshold for palliative consultation, for goals of care discussion w/ family (2) Severe sepsis: Plan: per primary service; febrile w/ tachycardia on arrival > F for now resolved; covering for sbp versus aspiration or other pneumonia; ? bacteremia; LE wound >> TTE unremarkable; Strep on PCR; ID following; multifocal PNA on CXR (3) Alcoholic cirrhosis of liver with ascites: Plan: per primary service > c/b esophageal varices, encephalopathy Admission and Anticipated Discharge Date Admission Date: February 25, 2024 Subjective no acute interval events > except hgb dropped again, getting more pRBC. GI evaluated > for EGD in AM. no c/o pain except pretibial area BLE; no sob, denies cough. still encephalopathic though seems a bit better today Review of Systems 2 Review of Systems: All systems reviewed & are unremarkable except as noted in Subjective Physical Exam 2 Constitutional: well developed, + cachectic, + altered mental status, + frail appearing and + mechanically ventilated (bipap); no acute distress Eyes: EOM intact bilaterally; sclerae not anicteric ENMT: Ears: no external ear abnormality Nose: no external nose abnormality Mouth: + dry oral mucous membranes Neck: no nuchal rigidity Respiratory: normal respiratory effort Auscultation: + diminished lung sounds Cardiovascular: Rate/Rhythm: regular rate and regular rhythm Extremities: + edema (3+ BLE) Gastrointestinal (Abdomen): Inspection/Auscultation: + abdomen distended, normal bowel sounds and + abdominal edema Percussion/Palpation: abdomen soft and + ascites; abdomen nontender Musculoskeletal: Extremities: + abnormal strength Skin: no rashes, warm and dry Results & Data Vital Signs (Past 12 Hours) Vital Signs Temp Pulse Pulse Resp BP BP Pulse Ox 02/28/24 09:30 37.0 C 81 18 90/52 L 94 02/28/24 09:15 36.7 C 80 19 96/50 L 93 02/28/24 08:57 36.7 C 86 18 98/64 L 02/28/24 07:25 37.1 C 85 19 96/57 L 92 02/28/24 03:43 36.8 C 78 18 101/56 L 91 02/27/24 23:00 36.7 C 75 18 94/59 L 95 O2 Del Method 02/28/24 09:30 02/28/24 09:15 02/28/24 08:57 02/28/24 07:25 Room Air 02/28/24 03:43 Room Air 02/27/24 23:00 Room Air Laboratory Results 02/28/24 05:36 02/28/24 05:36
--- NOTE | 2024-02-28 10:44 | Hospitalist Progress Note ---
Date of Service February 28, 2024 Assessment & Plan (1) Severe sepsis: Plan Mr Amador is a 53yoM with PMHx significant for alcoholic cirrhosis, COPD, renal cyst, CKD (baseline creatinine 2s), chronic anemia (baseline hemoglobin of 7) admitted for management of decompensated cirrhosis, complicated by ongoing acute on chronic anemia and sepsis. #Acute toxic metabolic encephalopathy iso sepsis and decompensated cirrhosis B12 and folate WNL, TSH 2.55 on admission Start thiamine supplementation Ammonia level repeat today Delirium precautions Treat below #Bacteremia 2/2 Group C beta Strep 1/4 #Severe sepsis, POA #Pneumonia, possible aspiration #Possible cellulitis, R>L Febrile with tachycardia on arrival lactate elevated at 3.3 with decrease to normal after fluid resuscitation procalcitonin elevated at 2.[address] chest concerning for pneumonia UA without infectious signs Bilateral LE cellulitis, R > L, doppler negative Blood culture 1/4 bottles growing Group C beta strep serology pcr notes strep TTE with no signs of endocarditis Treated initially with IV ertapenem and doxycycline ID consulted, appreciate recs. recommended/stated the following: -"At this time, I would suggest we D/C the ertapenem and doxycycline and instead start ceftriaxone 2g IV qd. If the blood culture turns out to just be 1 of 4 bottles with viridans Strep, then this should not require further evaluation or therapy. If it is a beta-Strep, however, our approach may need to be adjusted. Treating him for at least 5 days with abx for his pneumonia is not unreasonable regardless. This could potentially be narrowed to a PO option however based on further micro testing. Final abx plans remain pending at this time." Continued on CTX/flagyl at this time #Acute on chronic blood loss anemia, c/f UGIB #Esophageal Varices #Coagulopathy of Cirrhosis #Thrombocytopenia Hgb of 5.5 on arrival with transfusion of 2U pRBCs, additional unit 02/25 FOBT + on admission, imaging c/f varicosites, thickening of esophagus Anemia panel noting iron, b12 and folate levels wnl Continue to transfuse as needed, Transfuse PRBC to maintain hemoglobin of at least 7 -1UPRBC ordered for today GI consulted -Discussed over TT if scope would be warranted sooner secondary to continued bleeding Fibrinogen level ordered Continue PPI drip, add octreotide #Cirrhosis 2/2 EtOH, decompensated - MELD-Na: 26 on admission, MELD today 29 - Last EGD: Never , CT ABD c/f varicosities - PSE: Denies h/o HE, enceohalopathic on exam, repeat ammonia level today (Ammonia 53 on 02/24) - Ascites: s/p IR 02/25, ~6L reported, Fluid analysis without SBP, negative cultures - SBP: c/w Rocephin given sepsis on presentation and ?bleeding - EV: c/w CTX, continue PPI ggt, start ocreotide drip until GI eval given drop in hgb - HRS: Cr on admission 2.6 (baseline ~2.5 since 11/2023]), nephrology consulted - Daily CMP + INR to calculate MELD; low Na diet - Avoidance of NSAIDs; Ok to use Tylenol up to 2000 mg in divided q 6 hr doses daily prn. - GI consult -Discussion if scope necessary given continued hgb drop -Start of midodrine #CKD stage 4 -Subacute injury per nephrology Continue lasix 30mg qid Stop albumin now given 48 hours therapy with minimal improvement #Hyponatremia iso cirrhosis Sodium of 128-129 ion admission, now 132 Nephrology consulted, appreciate recs Trend BMP #Elevated trop 2/2 Demand ischemia Trop elevated at 42.9 to 41.4 EKG with sinus tachycardia Echo as above Likely demand in setting of above, doubt ACS #R kidney Cystic Lesion Noted on imaging patient follows with [facility] urologist 6 month follow up US recommended PCP followup #Chronic alcohol use AWSS, DT precautions Encourage cessation Diet: CLD diet tof DVT prophylaxis: SCDs Dispo: PT/OT for further recs once more stable Admission and Anticipated Discharge Date Admission Date: February 25, 2024 Subjective Hgb at 6.5 this am, transfusion started 1 U PRBC Patient alert to self and fact he is in hospital, but unable to answer specifics reports feeling very tired, no pain, nausea, vomiting, or other concerns Denies any changes in bowel movements--notes that he felt his BM last evening "was fine." Very lethargic on exam Physical Exam Constitutional: lethargic, will interact but slow to respond Respiratory: normal respiratory effort, lungs clear to auscultation Gastrointestinal (Abdomen): protuberant, but soft Skin: diffuse BLE edema to knees, pitting predominately around ankle, small right anteriolateral leg ulcerations, small abrasion on 3 digit of RLE, right leg skin with more erythematous skin changes then left Results & Data Results & Data Vital Signs (Past 12 Hours) Vital Signs Temp Pulse Pulse Resp BP BP Pulse Ox 02/28/24 10:30 37.1 C 81 19 96/55 L 95 02/28/24 10:29 37.1 C 81 19 96/55 L 95 02/28/24 10:00 82 02/28/24 10:00 37.1 C 79 19 92/57 L 93 02/28/24 09:30 37.0 C 81 18 90/52 L 94 02/28/24 09:15 36.7 C 80 19 96/50 L 93 02/28/24 08:57 36.7 C 86 18 98/64 L 02/28/24 07:25 37.1 C 85 19 96/57 L 92 02/28/24 03:43 36.8 C 78 18 101/56 L 91 02/27/24 23:00 36.7 C 75 18 94/59 L 95 O2 Del Method 02/28/24 10:30 02/28/24 10:29 02/28/24 10:00 02/28/24 10:00 02/28/24 09:30 02/28/24 09:15 02/28/24 08:57 02/28/24 07:25 Room Air 02/28/24 03:43 Room Air 02/27/24 23:00 Room Air Laboratory Results Short CBC 02/28/24 Range/Units 05:36 WBC 6.60 (4.8-10.8) K/ul Hgb 6.5 L* (14.0-18.0) g/dl Hct 19.0 L* (42.0-52.0) % Plt Count 97 L (130-400) K/uL BMP 02/28/24 05:36 Sodium 132 L Potassium 4.6 Chloride 101 Carbon Dioxide 24 BUN 45 H Creatinine 2.36 H Glucose 84 Calcium 8.2 L Liver Function 02/28/24 Range/Units 05:36 Total Bilirubin 2.1 H (0.2-1.0) mg/dl AST 30 (13-39) U/L ALT 11 (7-52) U/L Alkaline Phosphatase 38 (34-104) U/L Albumin 3.0 L (3.4-5.0) gm/dl Medications Administered Home Medications Medication Instructions Recorded Confirmed Last Taken folic acid 1 mg tablet 1 mg PO DAILY #30 tabs 08/15/23 02/25/24 Unknown Active Medications Generic Name Dose Route Start Last Admin Trade Name Walt PRN Reason Stop Dose Admin Folic Acid 1 mg 02/26/24 09:00 02/28/24 08:42 Folic Acid 1 Mg Tab PO 03/27/24 08:59 1 mg QAM GAIL Administration Furosemide 30 mg 02/27/24 17:00 02/27/24 20:52 Furosemide 40 Mg/4 Ml Vial IV 03/28/24 16:59 30 mg QID GAIL Administration Pantoprazole Sodium 40 mg/ 100 mls @ 20 mls/hr 02/26/24 00:45 02/28/24 08:37 Dextrose IV 03/27/24 00:44 8 mg/hr Q5H GAIL 20 mls/hr Administration 8 MG/HR Albumin Human 25 gm in 100 mls @ 50 mls/hr 02/26/24 04:25 02/28/24 06:39 Albumin 25% IV 02/29/24 04:24 Infused Q8H GAIL Infusion Ceftriaxone Sodium 2,000 mg in 50 mls @ 100 mls/hr 02/27/24 14:00 02/27/24 15:51 Rocephin IV 03/12/24 13:59 Infused Q24H GAIL Infusion Metronidazole 500 mg in 100 mls @ 100 mls/hr 02/27/24 16:00 02/28/24 09:37 Flagyl IV 03/05/24 15:59 Infused Q8H GAIL Infusion Protocol Metoprolol Tartrate 12.5 mg 02/27/24 09:00 02/28/24 09:37 Metoprolol Tartrate 25 Mg Tab PO 03/28/24 08:59 12.5 mg BID GAIL Administration Multivitamins 1 tab 02/26/24 09:00 02/28/24 08:42 Multivitamin Tab PO 03/27/24 08:59 1 tab QAM GAIL Administration Oxycodone HCl 5 mg 02/25/24 21:04 02/26/24 22:04 Oxycodone Hcl Ir 5 Mg Tab (Immediate Release) PO 03/10/24 21:03 5 mg Q4H PRN Administration Pain Thiamine HCl 100 mg 02/26/24 09:00 02/28/24 08:42 Thiamine Hcl 100 Mg Tab PO 03/27/24 08:59 100 mg QAM GAIL Administration
[2024-02-28] MEDS ORDERED: STAT IV/IM STA (11:01)
[2024-02-28] MEDS: MIDODRINE HCL 2.5 MG TAB PO SCH (11:31)
[2024-02-28] MEDS: OCTREOTIDE ACETATE 500 MCG in 0.9 % SODIUM CHLORIDE 100 ML IV SCH (11:35)
[2024-02-28] MEDS: THIAMINE HCL 100 MG in SYRINGE 9 ML IV STA (11:38)
[2024-02-28] MEDS: metroNIDAZOLE 500 MG TAB PO SCH (11:59)
[2024-02-28 13:11] LABS: Hematocrit (blood only) 23.8 % (42.0-52.0); Hemoglobin 7.8 g/dl (14.0-18.0)
[2024-02-28 13:56] LABS: Fibrinogen 214 mg/dl (184-400)
--- NOTE | 2024-02-28 15:39 | Gastroenterology Progress Note ---
<Statement entered by Ailyn Nix MD - 02/28/24 16:11> I have examined the patient, reviewed the History & Physical and in the interval since the performance of the History & Physical I have noted the following changes of clinical significance: no changes noted. I agree with the documentation provided by DORENE Duran with no additional comments. Date of Service February 28, 2024 Assessment & Plan (1) Symptomatic anemia: Plan: -Keep NPO after midnight for EGD on 02/29/24. -Continue to monitor H/H -Continue to monitor for overt GI bleeding (2) Alcoholic cirrhosis of liver with ascites: Plan: No new changes; refer to previous GI recommendations. Nephrology managing diuretics. Admission and Anticipated Discharge Date Admission Date: February 25, 2024 Subjective Patient is a 53 yo male GI is following for anemia and decompensating cirrhosis. He was alert during my encounter, though easily confused. He did have a drop of his hemoglobin to 6.5 without evidence of overt GI bleeding. BUN/Cr improving to 45/2.36. He was transfused and H/H did improve to 7.8/23.8. Review of Systems Gastrointestinal: no abdominal pain Physical Exam Constitutional: + ill appearing Gastrointestinal (Abdomen): Percussion/Palpation: abdomen soft; abdomen nontender Psychiatric: Orientation: alert Results & Data Results & Data Vital Signs (Past 12 Hours) Vital Signs Temp Pulse Pulse Resp BP BP Pulse Ox 02/28/24 13:07 106/58 L 96 02/28/24 11:10 37.0 C 86 19 103/67 96 02/28/24 11:10 37.0 C 86 19 103/67 96 02/28/24 11:00 36.9 C 83 19 107/67 96 02/28/24 10:30 37.1 C 81 19 96/55 L 95 02/28/24 10:29 37.1 C 81 19 96/55 L 95 02/28/24 10:00 82 02/28/24 10:00 37.1 C 79 19 92/57 L 93 02/28/24 09:30 37.0 C 81 18 90/52 L 94 02/28/24 09:15 36.7 C 80 19 96/50 L 93 02/28/24 08:57 36.7 C 86 18 98/64 L 02/28/24 07:25 37.1 C 85 19 96/57 L 92 02/28/24 03:43 36.8 C 78 18 101/56 L 91 O2 Del Method 02/28/24 13:07 Room Air 02/28/24 11:10 02/28/24 11:10 02/28/24 11:00 02/28/24 10:30 02/28/24 10:29 02/28/24 10:00 02/28/24 10:00 02/28/24 09:30 02/28/24 09:15 02/28/24 08:57 02/28/24 07:25 Room Air 02/28/24 03:43 Room Air PG Care Time/CCT Total # of Minutes Spent Total Time Spent with Patient: Total time spent is greater than 50% in coordination of care (as documented) at patient's floor/unit and/or counseling patient: Coding Level of Care Code 86940 SUB INP/OBS CARE 3/50MIN Diagnoses Symptomatic anemia D64.9 Alcoholic cirrhosis of liver with ascites K70.31
[2024-02-28 16:46] LABS: AFP Tumor Marker Serum 2.7 ng/mL (<6.1); Hepatitis A Antibody IgM NON-REACTIVE (NON-REACTIVE); Hepatitis B Core Antibody IgM NON-REACTIVE (NON-REACTIVE)
[2024-02-28] MEDS ORDERED: GABAPENTIN 100 MG CAP PO SCH (21:15)
[2024-02-29 06:34] LABS: Basophils # (auto) 0.03 K/uL (0.00-0.20); Basophils % (auto) 0.4 %; Eosinophils % (auto) 4.4 %; Hematocrit (blood only) 24.1 % (42.0-52.0); Hemoglobin 7.9 g/dl (14.0-18.0); Immature Granulocytes # (auto) 0.06 K/uL (0.01-0.20); Immature Granulocytes % (auto) 0.9 %; Lymphocytes # (auto) 1.25 K/uL (1.20-3.40); Lymphocytes % (auto) 18.3 %; Mean Corpuscular Hemoglobin 31.5 pg (25.0-34.0); Mean Corpuscular Hgb Conc 32.8 g/dL (32.0-36.0); Mean Platelet Volume 10.6 fL (9.4-12.4); Monocytes # (auto) 0.47 K/uL (0.11-0.59); Monocytes % (auto) 6.9 %; Neutrophils # (auto) 4.72 K/uL (1.40-6.50); Neutrophils % (auto) 69.1 %; Platelet Count 113 K/uL (130-400); RDW Coefficient of Variation 16.6 % (11.5-14.5); RDW Standard Deviation 56.6 fL (36.4-46.3); Red Blood Count 2.51 M/uL (4.70-6.10); White Blood Count 6.83 K/ul (4.8-10.8)
[2024-02-29 06:45] LABS: Albumin Globulin Ratio 0.8 (0.9-2); Albumin Level 2.8 gm/dl (3.4-5.0); BUN Creatinine Ratio 18.8 (10-20); Bilirubin,Total 2.8 mg/dl (0.2-1.0); Calcium 8.1 mg/dl (8.6-10.3); Creatinine Clr Calc Pharmacy 54.7 ml/min; Est GFR (Non-African American) 37.1 ml/min; Globulin 3.4 gm/dl (2.5-4.0); Magnesium 1.5 mg/dl (1.7-2.4); Phosphorus 3.6 mg/dl (2.5-4.9); Potassium 4.3 mmol/L (3.5-5.1); Total Protein 6.2 gm/dl (6.0-8.3)
[2024-02-29 06:49] LABS: INR 1.6 (0.9-1.1); Prothrombin Time 16.7 Seconds (9.0-12.0)
[2024-02-29 07:05] LABS: Acanthocytes 1+; Echinocytes 1+
[2024-02-29] MEDS: MAGNESIUM SULFATE / D5W 1 GM/100 ML BAG IV SCH (08:20)
--- NOTE | 2024-02-29 08:24 | Hospitalist Progress Note ---
Date of Service February 29, 2024 Assessment & Plan (1) Severe sepsis: Plan Mr Amador is a 53yoM with PMHx significant for alcoholic cirrhosis, COPD, renal cyst, CKD (baseline creatinine 2s), chronic anemia (baseline hemoglobin of 7) admitted for management of decompensated cirrhosis, complicated by ongoing acute on chronic anemia and sepsis. Patient to undergo EGD today for acute anemia. #Acute toxic metabolic encephalopathy iso sepsis and decompensated cirrhosis B12 and folate WNL, TSH 2.55 on admission Start thiamine supplementation Ammonia level repeat today Delirium precautions Treat below #Bacteremia 2/2 Group C beta Strep 1/4 #Severe sepsis, POA #Pneumonia, possible aspiration #Possible cellulitis, R>L Febrile with tachycardia on arrival lactate elevated at 3.3 with decrease to normal after fluid resuscitation procalcitonin elevated at 2.[address] chest concerning for pneumonia UA without infectious signs Bilateral LE cellulitis, R > L, doppler negative Blood culture 1/4 bottles growing Group C beta strep serology pcr notes strep TTE with no signs of endocarditis Treated initially with IV ertapenem and doxycycline ID consulted, appreciate recs. recommended/stated the following: -"At this time, I would suggest we D/C the ertapenem and doxycycline and instead start ceftriaxone 2g IV qd. If the blood culture turns out to just be 1 of 4 bottles with viridans Strep, then this should not require further evaluation or therapy. If it is a beta-Strep, however, our approach may need to be adjusted. Treating him for at least 5 days with abx for his pneumonia is not unreasonable regardless. This could potentially be narrowed to a PO option however based on further micro testing. Final abx plans remain pending at this time." Continued on CTX/flagyl at this time #Acute on chronic blood loss anemia, c/f UGIB #Esophageal Varices #Coagulopathy of Cirrhosis #Thrombocytopenia Hgb of 5.5 on arrival with transfusion of 2U pRBCs, additional unit 02/25 FOBT + on admission, imaging c/f varicosites, thickening of esophagus Anemia panel noting iron, b12 and folate levels wnl Continue to transfuse as needed, Transfuse PRBC to maintain hemoglobin of at least 7 -1UPRBC ordered for today GI consulted -Discussed over TT if scope would be warranted sooner secondary to continued bleeding Fibrinogen level ordered Continue PPI drip, add octreotide #Cirrhosis 2/2 EtOH, decompensated - MELD-Na: 26 on admission, MELD today 29 - Last EGD: Never , CT ABD c/f varicosities - PSE: Denies h/o HE, enceohalopathic on exam, repeat ammonia level today (Ammonia 53 on 02/24) - Ascites: s/p IR 02/25, ~6L reported, Fluid analysis without SBP, negative cultures - SBP: c/w Rocephin given sepsis on presentation and ?bleeding - EV: c/w CTX, continue PPI ggt, start ocreotide drip until GI eval given drop in hgb - HRS: Cr on admission 2.6 (baseline ~2.5 since 11/2023]), nephrology consulted - Daily CMP + INR to calculate MELD; low Na diet - Avoidance of NSAIDs; Ok to use Tylenol up to 2000 mg in divided q 6 hr doses daily prn. - GI consult Plan for EGD today -Continue midodrine #CKD stage 4 -Subacute injury per nephrology Continue lasix 30mg qid Stop albumin 02/27 Cr downtrending #Hyponatremia iso cirrhosis Sodium of 128-129 ion admission, now 132 Nephrology consulted, appreciate recs Trend BMP #Elevated trop 2/2 Demand ischemia Trop elevated at 42.9 to 41.4 EKG with sinus tachycardia Echo as above Likely demand in setting of above, doubt ACS #R kidney Cystic Lesion Noted on imaging patient follows with [facility] urologist 6 month follow up US recommended PCP followup #Chronic alcohol use AWSS, DT precautions Encourage cessation Diet:NPO DVT prophylaxis: SCDs Dispo: PT/OT for further recs once more stable Admission and Anticipated Discharge Date Admission Date: February 25, 2024 Subjective NAEO Hgb stable this am Evalauted prior to EGD Reports just feeling tired, denies any acute concerns Able to state he is at [facility] Denies nausea, vomiting--just reports he feels "fatigued" Physical Exam Constitutional: weak, ill appearing man Respiratory: normal respiratory effort, lungs clear to auscultation Cardiovascular: RRR Gastrointestinal (Abdomen): protuberant abdomen but soft Musculoskeletal: diffuse edema BLE Results & Data Results & Data Vital Signs (Past 12 Hours) Vital Signs Temp Pulse Pulse Resp BP Pulse Ox O2 Del Method 02/29/24 07:09 36.5 C 76 18 121/82 96 Room Air 02/29/24 03:43 36.7 C 74 17 111/64 96 Room Air 02/28/24 22:23 36.8 C 77 18 108/84 96 Room Air 02/28/24 22:03 77 02/28/24 20:40 Room Air Laboratory Results Short CBC 02/28/24 02/29/24 Range/Units 12:54 05:57 WBC 6.83 (4.8-10.8) K/ul Hgb 7.8 L 7.9 L (14.0-18.0) g/dl Hct 23.8 L 24.1 L (42.0-52.0) % Plt Count 113 L (130-400) K/uL BMP 02/29/24 05:57 Sodium 135 L Potassium 4.3 Chloride 103 Carbon Dioxide 25 BUN 38 H Creatinine 2.02 H D Glucose 112 H Calcium 8.1 L Liver Function 02/29/24 Range/Units 05:57 Total Bilirubin 2.8 H (0.2-1.0) mg/dl AST 39 (13-39) U/L ALT 12 (7-52) U/L Alkaline Phosphatase 35 (34-104) U/L Albumin 2.8 L (3.4-5.0) gm/dl Medications Administered Home Medications Medication Instructions Recorded Confirmed Last Taken folic acid 1 mg tablet 1 mg PO DAILY #30 tabs 08/15/23 02/25/24 Unknown Active Medications Generic Name Dose Route Start Last Admin Trade Name Walt PRN Reason Stop Dose Admin Folic Acid 1 mg 02/26/24 09:00 02/28/24 08:42 Folic Acid 1 Mg Tab PO 03/27/24 08:59 1 mg QAM GAIL Administration Furosemide 30 mg 02/27/24 17:00 02/28/24 20:35 Furosemide 40 Mg/4 Ml Vial IV 03/28/24 16:59 30 mg QID GAIL Administration Pantoprazole Sodium 40 mg/ 100 mls @ 20 mls/hr 02/26/24 00:45 02/29/24 07:56 Dextrose IV 03/27/24 00:44 8 mg/hr Q5H GAIL 20 mls/hr Administration 8 MG/HR Ceftriaxone Sodium 2,000 mg in 50 mls @ 100 mls/hr 02/27/24 14:00 02/28/24 14:10 Rocephin IV 03/12/24 13:59 Infused Q24H GAIL Infusion Metronidazole 500 mg in 100 mls @ 100 mls/hr 02/27/24 16:00 02/29/24 07:54 Flagyl IV 03/05/24 15:59 100 mls/hr Q8H GAIL Administration Protocol Octreotide Acetate 500 mcg/ 100.5 mls @ 10.05 mls/hr 02/28/24 11:15 02/29/24 05:28 Sodium Chloride IV 03/29/24 11:14 50 mcg/hr .Q10H GAIL 10.1 mls/hr Administration 50 MCG/HR Magnesium Sulfate/Dextrose 1 gm in 100 mls @ 50 mls/hr 02/29/24 08:00 02/29/24 08:20 Magnesium Sulfate / D5w IV 02/29/24 11:59 50 mls/hr Q2H GAIL Administration Metoprolol Tartrate 12.5 mg 02/27/24 09:00 02/28/24 20:35 Metoprolol Tartrate 25 Mg Tab PO 03/28/24 08:59 12.5 mg BID GAIL Administration Midodrine 2.5 mg 02/28/24 12:00 02/28/24 17:11 Midodrine Hcl 2.5 Mg Tab PO 03/29/24 11:59 2.5 mg TID@0800,1200,1700 GAIL Administration Multivitamins 1 tab 02/26/24 09:00 02/28/24 08:42 Multivitamin Tab PO 03/27/24 08:59 1 tab QAM GAIL Administration Oxycodone HCl 5 mg 02/25/24 21:04 02/26/24 22:04 Oxycodone Hcl Ir 5 Mg Tab (Immediate Release) PO 03/10/24 21:03 5 mg Q4H PRN Administration Pain Thiamine HCl 100 mg 02/26/24 09:00 02/28/24 08:42 Thiamine Hcl 100 Mg Tab PO 03/27/24 08:59 100 mg QAM GAIL Administration
--- NOTE | 2024-02-29 08:52 | History & Physical Bridge Note ---
<Statement entered by Ailyn Nix MD - 02/29/24 09:11> I agree with the documentation provided by DORENE Duran with no additional comments. Date of Service February 29, 2024 History & Physical Bridge Note I have reviewed the History & Physical and in the interval since the performance of the History & Physical I have noted the following changes of clinical significance: no changes noted Patient's H/H is 7.9/24.1. He has been NPO. Proceed with EGD today.
[2024-02-29] MEDS ORDERED: THIAMINE HCL 100 MG TAB PO SCH (09:00)
[2024-02-29] MEDS: SODIUM CHLORIDE 0.9% 1,000 ML IV SCH (13:20)
[2024-02-29] MEDS ORDERED: ONDANSETRON INJ 2 MG/ML 2 ML VIAL IV PRN (13:38)
[2024-02-29] MEDS ORDERED: fentaNYL citrate PF 100 MCG/2 ML VIAL IV PRN (13:38)
[2024-02-29] MEDS ORDERED: HYDROmorphone INJ 1 MG/ML SYRINGE IV PRN (13:38)
[2024-02-29] MEDS ORDERED: ATROPINE SULFATE 0.1 MG/ML 10ML SYR IV PRN (13:38)
[2024-02-29] MEDS ORDERED: ePHEDrine sulfate 50 MG/ML AMP IV PRN (13:38)
--- NOTE | 2024-02-29 13:38 | Anesthesiology Consultation ---
Date of Service February 29, 2024 Assessment & Plan ASA ASA4 Proposed Anesthesia Anesthesia Type: General Risk / Benefits Reviewed With: PT / POA / Parent / Guardian, Accepts Plan and Informed Consent Obtained Additional Comments: pt with ascites and possible arices. will intubate History Surgery Operation Date: 02/29/24 10:35 Proposed Procedures p Esophagogastroduodenoscopy - Ailyn Nix MD Operation Date: 02/29/24 16:55 Proposed Procedures p Esophagogastroduodenoscopy iDnah Nix MD Height/Weight Height: 6 ft Weight: 107.2 kg Allergies Allergy/AdvReac Type Severity Reaction Status Date / Time Penicillins Allergy Unknown PT WOULD Verified 02/25/24 19:50 NOT SAY WHAT HIS REACTION WAS. Medications Home Medications Medication Instructions Recorded Confirmed Last Taken folic acid 1 mg tablet 1 mg PO DAILY #30 tabs 08/15/23 02/25/24 Unknown Active Medications Generic Name Dose Route Start Last Admin Trade Name Freq PRN Reason Stop Dose Admin Folic Acid 1 mg 02/26/24 09:00 02/29/24 11:00 Folic Acid 1 Mg Tab PO 03/27/24 08:59 1 mg QAM GAIL Administration Furosemide 30 mg 02/27/24 17:00 02/29/24 10:13 Furosemide 40 Mg/4 Ml Vial IV 03/28/24 16:59 30 mg QID GAIL Administration Pantoprazole Sodium 40 mg/ 100 mls @ 20 mls/hr 02/26/24 00:45 02/29/24 07:56 Dextrose IV 03/27/24 00:44 8 mg/hr Q5H GAIL 20 mls/hr Administration 8 MG/HR Ceftriaxone Sodium 2,000 mg in 50 mls @ 100 mls/hr 02/27/24 14:00 02/28/24 14:10 Rocephin IV 03/12/24 13:59 Infused Q24H GAIL Infusion Metronidazole 500 mg in 100 mls @ 100 mls/hr 02/27/24 16:00 02/29/24 10:07 Flagyl IV 03/05/24 15:59 Infused Q8H GAIL Infusion Protocol Octreotide Acetate 500 mcg/ 100.5 mls @ 10.05 mls/hr 02/28/24 11:15 02/29/24 05:28 Sodium Chloride IV 03/29/24 11:14 50 mcg/hr .Q10H GAIL 10.1 mls/hr Administration 50 MCG/HR Sodium Chloride 1,000 mls @ 15 mls/hr 02/29/24 13:15 02/29/24 13:20 Nss IV 03/30/24 13:14 15 mls/hr .Q24H GAIL Administration Metoprolol Tartrate 12.5 mg 02/27/24 09:00 02/29/24 11:00 Metoprolol Tartrate 25 Mg Tab PO 03/28/24 08:59 12.5 mg BID GAIL Administration Midodrine 2.5 mg 02/28/24 12:00 02/29/24 13:01 Midodrine Hcl 2.5 Mg Tab PO 03/29/24 11:59 Not Given TID@0800,1200,1700 GAIL Multivitamins 1 tab 02/26/24 09:00 02/29/24 11:00 Multivitamin Tab PO 03/27/24 08:59 1 tab QAM GAIL Administration Oxycodone HCl 5 mg 02/25/24 21:04 02/26/24 22:04 Oxycodone Hcl Ir 5 Mg Tab (Immediate Release) PO 03/10/24 21:03 5 mg Q4H PRN Administration Pain Thiamine HCl 100 mg 02/26/24 09:00 02/29/24 11:01 Thiamine Hcl 100 Mg Tab PO 03/27/24 08:59 100 mg QAM GAIL Administration NPO Date Last Intake of Fluids: 02/27/24 Last Intake of Fluids Comment: pt states he drank two days Date Last Intake of Solids: 02/27/24 Past Medical History Medical History Homeless Current every day smoker Patient denies significant medical history Exercise / Class Metabolic Activity II 4-5 Yardwork/Stairs/Walk up hill Past Family History Family History Mother Stroke Diabetes Other Colorectal cancer Heart disease Past Surgical History Surgical History S/P cataract extraction right eye History of tonsillectomy History of hernia surgery INFANCY Past Anesthesia History No Hx of Anesthesia Complications and No Family Hx of Anesthesia Complications History of PONV No Hx of PONV and No Hx of Motion Sickness Social History Smoking Status: Current every day smoker tobacco type: cigarettes Smoking cigarettes per day: 5-6 Do You Dip or Chew Tobacco: No Hx Alcohol Use: Yes Alcohol type: beer and wine alcohol intake frequency: 0-2 drinks per day Alcohol Intake Frequency Comment: pt states he has not had a drink in the last 15 days Hx Substance Use: No substance use type: does not use Review of Systems denies fever/cough/ colds/ chest pain/ SOB/ EMERSON denies EMERSON Physical Exam Vital Signs Last Vital Signs Temp 36.5 C 02/29/24 13:15 Pulse 76 02/29/24 11:44 Resp 20 02/29/24 13:15 BP 101/68 02/29/24 11:44 Pulse Ox 97 02/29/24 11:44 O2 Del Method Room Air 02/29/24 11:44 O2 Flow Rate 21 02/26/24 12:22 FiO2 21 02/26/24 11:21 ENMT Mouth: + poor dentition; no TMJ abnormality and no dentition abnormality Thyromental Distance: > or= 3.5 Finger Breadths Mallampati Class: II Neck neck extension not limited Respiratory normal respiratory effort; no respiratory distress Auscultation: lungs clear to auscultation bilaterally Cardiovascular Rate/Rhythm: regular rate and regular rhythm Neurologic moves all extremities Psychiatric Orientation: alert and oriented x 3 Testing Laboratory Results 02/29/24 05:57 02/29/24 05:57 PT 16.7 Seconds (9.0-12.0) H 02/29/24 05:57 INR 1.6 (0.9-1.1) H 02/29/24 05:57 Urine Color Dark Yellow 02/25/24 20:45 Urine Appearance Cloudy (Clear) A 02/25/24 20:45 Urine pH 5.0 (4.5-7.5) 02/25/24 20:45 Ur Specific [place]coe 1.019 (1.000-1.030) 02/25/24 20:45 Urine Protein 1+ (Negative) H 02/25/24 20:45 Urine Glucose (UA) Negative (Negative) 02/25/24 20:45 Urine Ketones Trace (Negative) H 02/25/24 20:45 Urine Nitrite Negative (Negative) 02/25/24 20:45 Ur Leukocyte Esterase Trace (Negative) H 02/25/24 20:45 Urine WBC (Auto) 0-5 /hpf (0-5) 02/25/24 20:45 Urine RBC (Auto) 0-2 /hpf (0-2) 02/25/24 20:45 U Hyaline Cast (Auto) >20 /lpf (0-2) H 02/25/24 20:45 U Epithel Cells (Auto) 0-2 /hpf (0-2) 02/25/24 20:45 Urine Bacteria (Auto) None Seen (None Seen) 02/25/24 20:45 Blood Type A Negative 02/25/24 17:06 Antibody Screen NEGATIVE 02/25/24 17:06 02/25/24 21:15 Gram Stain - Final Peritoneal Fluid Aerobic and Anaerobic Culture - Preliminary No growth to date. 02/25/24 17:06 Aerobic Blood Culture - Preliminary Blood No growth in Aerobic bottle after 48 hours. Anaerobic Blood Culture - Preliminary No growth in Anaerobic bottle after 48 hours. 02/25/24 16:18 Aerobic Blood Culture - Preliminary Blood No growth in Aerobic bottle after 48 hours. Anaerobic Blood Culture - Preliminary Group C Beta Strep
[2024-02-29] MEDS ORDERED: fentaNYL citrate PF 100 MCG/2 ML VIAL ONE (13:42)
[2024-02-29] MEDS ORDERED: PROPOFOL IV EMULSION 10 MG/ML 20 ML VIAL IV ONE (13:44)
[2024-02-29] MEDS ORDERED: LIDOCAINE 2% 2 ML VIAL/AMP(20MG/ML) INFIL ONE (13:44)
[2024-02-29] MEDS ORDERED: ONDANSETRON INJ 2 MG/ML 2 ML VIAL ONE (14:07)
--- NOTE | 2024-02-29 14:34 | GI REPORT ---
[facility] Patient: INDERJIT LO : 1970 Sex at : Male Age: 53 Years Procedure: Upper GI endoscopy Date: 02/29/2024 Attending Physician: Ailyn Nix MD Referring MD: Yi Mark Md Indications: - Suspected upper gastrointestinal bleeding Medications: - General Anesthesia Complications: - No immediate complications. Estimated Blood Loss: - Estimated blood loss: None. Procedure: - Prior to the procedure, a History and Physical was performed, and patient medications and allergies were reviewed. The patient's tolerance of previous anesthesia was also reviewed. The risks and benefits of the procedure and the sedation options and risks were discussed with the patient. All questions were answered, and informed consent was obtained. Prior Anticoagulants: The patient has taken no anticoagulant or antiplatelet agents. ASA Grade Assessment: IV - A patient with severe systemic disease that is a constant threat to life. After reviewing the risks and benefits, the patient was deemed in satisfactory condition to undergo the procedure. - The egd scope was introduced through the mouth and advanced to the third part of the duodenum. - The upper GI endoscopy was accomplished without difficulty. - The patient tolerated the procedure well. Findings: - A single small mucosal nodule with a localized distribution was found at the gastroesophageal junction. The nodule was Yolis classification Isp (subpedunculated). Biopsy is contraindicated because of underlying liver disease and portal hypertension. - LA Grade B (one or more mucosal breaks greater than 5 mm, not extending between the tops of two mucosal folds) esophagitis with no bleeding was found at the gastroesophageal junction. Biopsy is contraindicated because of underlying liver disease and portal hypertension. - A large amount of food (residue) was found in the gastric fundus and in the gastric body. - Moderate portal hypertensive gastropathy was found in the entire examined stomach. 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 Coagulation for bleeding prevention using argon plasma was successful. - Diffuse moderately erythematous mucosa without active bleeding and with no stigmata of bleeding was found in the entire duodenum. Impression: - Mucosal nodule found in the esophagus. Biopsy is contraindicated. - LA Grade B reflux esophagitis with no bleeding. Biopsy is contraindicated. - A large amount of food (residue) in the stomach. - Portal hypertensive gastropathy. - Gastric antral vascular ectasia without bleeding. Treated with argon plasma coagulation (APC). - Erythematous duodenopathy. - No specimens collected. Recommendation: - Resume previous diet. - Continue present medications. - Repeat upper endoscopy in 4 weeks for retreatment. Procedure Code(s): - 45046, Esophagogastroduodenoscopy, flexible, transoral; with control of bleeding, any method Diagnosis Code(s): - K22.89, Other specified disease of esophagus - K21.00, Gastro-esophageal reflux disease with esophagitis, without bleeding - K76.6, Portal hypertension - K31.89, Other diseases of stomach and duodenum - K31.819, Angiodysplasia of stomach and duodenum without bleeding CPT(R) - 2023 copyright [employer]. All Rights Reserved. The CPT codes, CCI edits and ICD codes generated are intended as suggestions and were generated based on input data. These codes are preliminary and upon meatman review may be revised to meet current compliance and payer requirements. The provider is responsible for the final determination of appropriate codes, and modifiers. Ailyn Nix MD This document has been electronically signed. Note Initiated:02/29/2024 Note Completed:02/29/2024 2:32 PM [id number]
[2024-02-29] MEDS ORDERED: ePHEDrine sulfate 50 MG/5 ML SYR ONE (14:36)
--- NOTE | 2024-02-29 14:51 | Anesthesiology Progress Note ---
Date of Service February 29, 2024 Anesthesia Post Procedure Vital Signs Vital Signs: Temp Pulse Pulse Pulse Resp BP Pulse Ox 02/29/24 14:50 70 22 100/62 97 02/29/24 14:40 71 22 108/69 96 02/29/24 14:30 36 C L 71 16 111/72 94 02/29/24 13:15 36.5 C 20 02/29/24 11:44 36.5 C 76 17 101/68 97 02/29/24 11:08 02/29/24 07:09 36.5 C 76 18 121/82 96 02/29/24 03:43 36.7 C 74 17 111/64 96 02/28/24 22:23 36.8 C 77 18 108/84 96 02/28/24 22:03 77 02/28/24 20:40 02/28/24 19:42 36.6 C 86 18 117/76 97 02/28/24 17:06 89 129/83 02/28/24 15:49 36.7 C 76 18 110/70 97 O2 Del Method O2 Flow Rate 02/29/24 14:50 Oxymask 3 02/29/24 14:40 Oxymask 7 02/29/24 14:30 Oxymask 7 02/29/24 13:15 02/29/24 11:44 Room Air 02/29/24 11:08 Room Air 02/29/24 07:09 Room Air 02/29/24 03:43 Room Air 02/28/24 22:23 Room Air 02/28/24 22:03 02/28/24 20:40 Room Air 02/28/24 19:42 Room Air 02/28/24 17:06 02/28/24 15:49 Room Air Pain Intensity Bilateral Leg: Pain Intensity: 7 Transfer of Care Handoff Completed per policy Notes Mental Status: alert / awake / arousable and participated in evaluation Patient Amnestic to Procedure: Yes Nausea / Vomiting: adequately controlled Pain: adequately controlled Airway Patency, RR, SpO2: stable & adequate BP & HR: stable & adequate Hydration State: stable & adequate Anesthetic Complications: no major complications apparent and Pt Satisfied with anesthetic care
[2024-03-01 05:53] LABS: Hematocrit (blood only) 21.7 % (42.0-52.0); Hemoglobin 7.2 g/dl (14.0-18.0); Mean Corpuscular Hemoglobin 31.6 pg (25.0-34.0); Mean Corpuscular Hgb Conc 33.2 g/dL (32.0-36.0); Mean Corpuscular Volume 95.2 fL (80.0-100.0); Mean Platelet Volume 10.3 fL (9.4-12.4); Platelet Count 119 K/uL (130-400); RDW Coefficient of Variation 16.8 % (11.5-14.5); RDW Standard Deviation 56.9 fL (36.4-46.3); Red Blood Count 2.28 M/uL (4.70-6.10); White Blood Count 7.92 K/ul (4.8-10.8)
[2024-03-01 06:05] LABS: Albumin Globulin Ratio 0.8 (0.9-2); Albumin Level 2.5 gm/dl (3.4-5.0); Bilirubin,Total 1.9 mg/dl (0.2-1.0); Calcium 8.2 mg/dl (8.6-10.3); Creatinine Clr Calc Pharmacy 60.1 ml/min; Est GFR (African American) 48.1 ml/min; Est GFR (Non-African American) 41.5 ml/min; Globulin 3.3 gm/dl (2.5-4.0); Magnesium 1.6 mg/dl (1.7-2.4); Phosphorus 3.6 mg/dl (2.5-4.9); Potassium 4.2 mmol/L (3.5-5.1); Total Protein 5.8 gm/dl (6.0-8.3)
[2024-03-01 06:21] LABS: INR 1.5 (0.9-1.1); Prothrombin Time 16.1 Seconds (9.0-12.0)
[2024-03-01] MEDS: MAGNESIUM SULFATE / D5W 1 GM/100 ML BAG IV SCH (08:27)
[2024-03-01] MEDS: MAGNESIUM CHLORIDE W/CALCIUM 64MG DELAYED REL TAB PO SCH (09:45)
--- NOTE | 2024-03-01 11:36 | Gastroenterology Progress Note ---
<Statement entered by Ailyn Nix MD - 03/01/24 14:57> I have examined the patient, reviewed the History & Physical and in the interval since the performance of the History & Physical I have noted the following changes of clinical significance: no changes noted. I agree with the documentation provided by DORENE Duran with no additional comments. Date of Service March 01, 2024 Assessment & Plan (1) Esophagitis: (2) GAVE (gastric antral vascular ectasia): (3) Cirrhosis: Plan -Continue Protonix 40 mg BID moving forward -Continue previous recommendations for cirrhosis; Patient will need hepatology follow-up upon discharge. Our outpatient clinic is working to arrange this at present. -Continue to monitor H/H -Will need retreatment with an EGD in 4 weeks; Our office will schedule. Admission and Anticipated Discharge Date Admission Date: February 25, 2024 Subjective Patient is a 53 yo male with cirrhosis amongst other issues. He underwent an EGD on 02/29/24. This indicated esophagitis, portal hypertensive gastropathy/GAVE. His H/H is 7.2/21.7. He is not having overt GI bleeding. He denies any issues at present. BP 91/48 today. Review of Systems Gastrointestinal: no abdominal pain, no melena and no problem reported Physical Exam Constitutional: no acute distress Gastrointestinal (Abdomen): normal bowel sounds, soft, nontender, no hepatosplenomegaly Results & Data Results & Data Vital Signs (Past 12 Hours) Vital Signs Temp Pulse Pulse Resp BP Pulse Ox O2 Del Method 03/01/24 11:24 36.4 C L 61 18 91/48 L 94 Room Air 03/01/24 08:03 36.7 C 66 18 114/76 93 Room Air 03/01/24 08:00 Room Air 03/01/24 02:58 36.6 C 70 18 92/51 L 90 Room Air PG Care Time/CCT Total # of Minutes Spent Total Time Spent with Patient: Total time spent is greater than 50% in coordination of care (as documented) at patient's floor/unit and/or counseling patient: Coding Level of Care Code 31647 SUB INP/OBS CARE 3/50MIN Diagnoses Esophagitis K20.90 GAVE (gastric antral vascular ectasia) K31.819 Cirrhosis K74.60
--- NOTE | 2024-03-01 11:51 | Hospitalist Progress Note ---
Date of Service March 01, 2024 Assessment & Plan (1) Severe sepsis: Plan Mr Amador is a 53yoM with PMHx significant for alcoholic cirrhosis, COPD, renal cyst, CKD (baseline creatinine 2s), chronic anemia (baseline hemoglobin of 7) admitted for management of decompensated cirrhosis, complicated by ongoing acute on chronic anemia and sepsis. Patient to underwent EGD 02/28 for acute anemia. Noted to have esophagitis and GAVE. Patient still requiring lasix QID #Acute toxic metabolic encephalopathy iso sepsis and decompensated cirrhosis B12 and folate WNL, TSH 2.55 on admission Start thiamine supplementation Ammonia level stable Delirium precautions Treat below #Bacteremia 2/2 Group C beta Strep 1/4 #Severe sepsis, POA #Pneumonia, possible aspiration #Possible cellulitis, R>L Febrile with tachycardia on arrival lactate elevated at 3.3 with decrease to normal after fluid resuscitation procalcitonin elevated at 2.[address] chest concerning for pneumonia UA without infectious signs Bilateral LE cellulitis, R > L, doppler negative Blood culture 1/4 bottles growing Group C beta strep serology pcr notes strep TTE with no signs of endocarditis Treated initially with IV ertapenem and doxycycline ID consulted, appreciate recs. recommended/stated the following: -"At this time, I would suggest we D/C the ertapenem and doxycycline and instead start ceftriaxone 2g IV qd. If the blood culture turns out to just be 1 of 4 bottles with viridans Strep, then this should not require further evaluation or therapy. If it is a beta-Strep, however, our approach may need to be adjusted. Treating him for at least 5 days with abx for his pneumonia is not unreasonable regardless. This could potentially be narrowed to a PO option however based on further micro testing. Final abx plans remain pending at this time." Continued on CTX/flagyl at this time, will continue for total 7 days (EOT 03/05) #Acute on chronic blood loss anemia, c/f UGIB #Portal hypertensive gastropathy/GAVE s/p APC 02/28 #Esophagitis #Coagulopathy of Cirrhosis #Thrombocytopenia Hgb of 5.5 on arrival with transfusion of 2U pRBCs, additional unit 02/25 FOBT + on admission, imaging c/f varicosites, thickening of esophagus Anemia panel noting iron, b12 and folate levels wnl Continue to transfuse as needed, Transfuse PRBC to maintain hemoglobin of at least 7 -1UPRBC ordered 02/27 GI consulted -EGD 02/28, notable for esophagitis, portal hypertensive gastropathy/GAVE -Follow up OP GI/Hepatology Fibrinogen level stable Discontinue octreotide/PPI drip -Transitioned to PPI BID #Cirrhosis 2/2 EtOH, decompensated - MELD-Na: 26 on admission, MELD today 22 - Last EGD: 02/28, PH gastropathy/GAVE, esophagitis - PSE: Denies h/o HE, enceohalopathic on exam, repeat ammonia level today (Ammonia 53 on 02/24) - Ascites: s/p IR 02/25, ~6L reported, Fluid analysis without SBP, negative cultures - SBP: c/w Rocephin given sepsis on presentation and ?bleeding - EV: c/w CTX, continue PPI ggt, start ocreotide drip until GI eval given drop in hgb - HRS: Cr on admission 2.6 (baseline ~2.5 since 11/2023]), nephrology consulted - Daily CMP + INR to calculate MELD; low Na diet - Avoidance of NSAIDs; Ok to use Tylenol up to 2000 mg in divided q 6 hr doses daily prn. -Continue midodrine #CKD stage 4 -Subacute injury per nephrology Continue lasix 30mg qid Stop albumin 02/27 Cr downtrending #Hyponatremia iso cirrhosis Sodium of 128-129 ion admission, now 132 Nephrology consulted, appreciate recs Trend BMP #Elevated trop 2/2 Demand ischemia Trop elevated at 42.9 to 41.4 EKG with sinus tachycardia Echo as above Likely demand in setting of above, doubt ACS #R kidney Cystic Lesion Noted on imaging patient follows with [facility] [place] urologist 6 month follow up US recommended PCP followup #Chronic alcohol use AWSS, DT precautions Encourage cessation Diet: Full liquid, advance as tolerated DVT prophylaxis: SCDs Dispo: PT/OT for further recs once more stable Admission and Anticipated Discharge Date Admission Date: February 25, 2024 Subjective NAEO Reports no acute concerns, doesn't engage in much questioning as he is "too tired" however per nursing min assist in most activities Requested PT/OT to eval again Physical Exam Constitutional: ill appearing Respiratory: normal respiratory effort, lungs clear to auscultation Cardiovascular: RRR Gastrointestinal (Abdomen): protuberant but soft Musculoskeletal: diffuse edema bilaterally Results & Data Results & Data Vital Signs (Past 12 Hours) Vital Signs Temp Pulse Pulse Resp BP Pulse Ox O2 Del Method 03/01/24 11:24 36.4 C L 61 18 91/48 L 94 Room Air 03/01/24 08:03 36.7 C 66 18 114/76 93 Room Air 03/01/24 08:00 Room Air 03/01/24 02:58 36.6 C 70 18 92/51 L 90 Room Air Laboratory Results Short CBC 03/01/24 Range/Units 05:33 WBC 7.92 (4.8-10.8) K/ul Hgb 7.2 L (14.0-18.0) g/dl Hct 21.7 L (42.0-52.0) % Plt Count 119 L (130-400) K/uL BMP 03/01/24 05:33 Sodium 133 L Potassium 4.2 Chloride 104 Carbon Dioxide 24 BUN 35 H Creatinine 1.84 H Glucose 136 H Calcium 8.2 L Liver Function 03/01/24 Range/Units 05:33 Total Bilirubin 1.9 H (0.2-1.0) mg/dl AST 30 (13-39) U/L ALT 11 (7-52) U/L Alkaline Phosphatase 32 L (34-104) U/L Albumin 2.5 L (3.4-5.0) gm/dl Medications Administered Home Medications Medication Instructions Recorded Confirmed Last Taken folic acid 1 mg tablet 1 mg PO DAILY #30 tabs 08/15/23 02/25/24 Unknown Active Medications Generic Name Dose Route Start Last Admin Trade Name Walt PRN Reason Stop Dose Admin Folic Acid 1 mg 02/26/24 09:00 03/01/24 08:30 Folic Acid 1 Mg Tab PO 03/27/24 08:59 1 mg QAM GAIL Administration Furosemide 30 mg 02/27/24 17:00 03/01/24 08:31 Furosemide 40 Mg/4 Ml Vial IV 03/28/24 16:59 30 mg QID GAIL Administration Ceftriaxone Sodium 2,000 mg in 50 mls @ 100 mls/hr 02/27/24 14:00 02/29/24 15:42 Rocephin IV 03/12/24 13:59 Not Given Q24H GAIL Metronidazole 500 mg in 100 mls @ 100 mls/hr 02/27/24 16:00 03/01/24 09:01 Flagyl IV 03/05/24 15:59 Infused Q8H GAIL Infusion Protocol Magnesium Sulfate/Dextrose 1 gm in 100 mls @ 50 mls/hr 03/01/24 08:00 03/01/24 10:18 Magnesium Sulfate / D5w IV 03/01/24 13:59 50 mls/hr Q2H GAIL Administration Magnesium Chloride 64 mg 03/01/24 09:00 03/01/24 09:45 Magnesium Chloride W/Calcium 64mg Delayed Rel Tab PO 03/31/24 08:59 64 mg QAM GAIL Administration Metoprolol Tartrate 12.5 mg 02/27/24 09:00 03/01/24 08:30 Metoprolol Tartrate 25 Mg Tab PO 03/28/24 08:59 12.5 mg BID GAIL Administration Midodrine 2.5 mg 02/28/24 12:00 03/01/24 07:24 Midodrine Hcl 2.5 Mg Tab PO 03/29/24 11:59 2.5 mg TID@0800,1200,1700 GAIL Administration Multivitamins 1 tab 02/26/24 09:00 03/01/24 08:30 Multivitamin Tab PO 03/27/24 08:59 1 tab QAM GAIL Administration Oxycodone HCl 5 mg 02/25/24 21:04 02/26/24 22:04 Oxycodone Hcl Ir 5 Mg Tab (Immediate Release) PO 03/10/24 21:03 5 mg Q4H PRN Administration Pain Thiamine HCl 100 mg 02/26/24 09:00 03/01/24 08:30 Thiamine Hcl 100 Mg Tab PO 03/27/24 08:59 100 mg QAM GAIL Administration
[2024-03-01] MEDS: PANTOprazole 40 MG TAB PO SCH (12:07)
--- NOTE | 2024-03-01 18:50 | Nephrology Progress Note ---
Date of Service March 01, 2024 Assessment & Plan (1) CKD (chronic kidney disease) stage 4, GFR 15-29 ml/min: Plan: since arrival here slowly improving kidney function ; creatinine in high 2's since late November >> so not technically CKD 4 unless he stays in this range until late February; but CKD 4 is most appropriate available diagnosis at this time; although subacute kidney injury would be best descriptor. very rapidly progressive since according to eGFR he had only marginal ckd as recently as September (given creat as low as 0.6 in July). actually his presenting GFR here of 25 is likely a significant underestimate of his actual renal function given cirrhosis and anasarca he could easily be ESRD. Not a dialysis candidate with active alcohol abuse due to bleeding/hypotension complications. high risk to worsen in current clinical setting of severe sepsis from aspiration PNA ? cellullitis, decompensated cirrhosis hepatorenal syndrome would be on differential here but he needs diuretics > unable to stop them at this time; would not hurt to treat empirically though will need to continue diuretics as well miminally improved creatinine again today >needs complete EtOH abstinence and nsaid avoidance >continue midodrine >cont lasix 30 mg IV qid -eventually as tolerated look to add spironolactone >transfuse prn; pls give extra lasix dose after every unit pRBC 30 or even 40 mg IV >check bmp, mag daily >>continue low K, low Na diet with 1.5L FR -low threshold for palliative consultation, for goals of care discussion w/ family (2) Severe sepsis: Plan: per primary service; febrile w/ tachycardia on arrival > F for now resolved; covering for sbp versus aspiration or other pneumonia; ? bacteremia; LE wound >> TTE unremarkable; Strep on PCR; ID following; multifocal PNA on CXR (3) Alcoholic cirrhosis of liver with ascites: Plan: per primary service > c/b esophageal varices, encephalopathy Admission and Anticipated Discharge Date Admission Date: February 25, 2024 Subjective seen on midday rounds. EGD results reviewed; no changes in pt sx Review of Systems 2 Review of Systems: All systems reviewed & are unremarkable except as noted in Subjective Physical Exam 2 Constitutional: well developed, + cachectic, + altered mental status (intermittently) and + frail appearing; no acute distress Eyes: EOM intact bilaterally; sclerae not anicteric ENMT: Ears: no external ear abnormality Nose: no external nose abnormality Mouth: + dry oral mucous membranes Neck: no nuchal rigidity Respiratory: normal respiratory effort Auscultation: + diminished lung sounds Cardiovascular: Rate/Rhythm: regular rate and regular rhythm Extremities: + edema (3+ BLE) Gastrointestinal (Abdomen): Inspection/Auscultation: + abdomen distended, normal bowel sounds and + abdominal edema Percussion/Palpation: abdomen soft and + ascites; abdomen nontender Musculoskeletal: Extremities: + abnormal strength Skin: no rashes, warm and dry Results & Data Vital Signs (Past 12 Hours) Vital Signs Temp Pulse Resp BP Pulse Ox O2 Del Method 03/01/24 15:41 36.5 C 64 18 102/67 92 Room Air 03/01/24 11:24 36.4 C L 61 18 91/48 L 94 Room Air 03/01/24 08:03 36.7 C 66 18 114/76 93 Room Air 03/01/24 08:00 Room Air Laboratory Results 03/01/24 05:33 03/01/24 05:33
[2024-03-02 06:46] LABS: Hematocrit (blood only) 23.8 % (42.0-52.0); Hemoglobin 7.8 g/dl (14.0-18.0); Mean Corpuscular Hemoglobin 31.5 pg (25.0-34.0); Mean Corpuscular Hgb Conc 32.8 g/dL (32.0-36.0); Mean Platelet Volume 10.3 fL (9.4-12.4); Platelet Count 124 K/uL (130-400); RDW Coefficient of Variation 16.7 % (11.5-14.5); RDW Standard Deviation 56.8 fL (36.4-46.3); Red Blood Count 2.48 M/uL (4.70-6.10)
[2024-03-02 07:10] LABS: Albumin Globulin Ratio 0.7 (0.9-2); Albumin Level 2.4 gm/dl (3.4-5.0); Bilirubin,Total 1.6 mg/dl (0.2-1.0); Calcium 7.8 mg/dl (8.6-10.3); Creatinine Clr Calc Pharmacy 66.9 ml/min; Est GFR (African American) 54.1 ml/min; Est GFR (Non-African American) 46.7 ml/min; Globulin 3.6 gm/dl (2.5-4.0); Magnesium 1.7 mg/dl (1.7-2.4); Potassium 4.2 mmol/L (3.5-5.1)
[2024-03-02 07:22] LABS: INR 1.6 (0.9-1.1)
--- NOTE | 2024-03-02 12:45 | Hospitalist Progress Note ---
Date of Service March 02, 2024 Assessment & Plan (1) Severe sepsis: Plan Mr Amador is a 53yoM with PMHx significant for alcoholic cirrhosis, COPD, renal cyst, CKD (baseline creatinine 2s), chronic anemia (baseline hemoglobin of 7) admitted for management of decompensated cirrhosis, complicated by ongoing acute on chronic anemia and sepsis. Patient to underwent EGD 02/28 for acute anemia. Noted to have esophagitis and GAVE. Patient still requiring lasix QID Spoke with Sister for update. Reports that patient has never expressed any goals of care previously, agreeable for family meeting on Monday. #Acute toxic metabolic encephalopathy iso sepsis and decompensated cirrhosis B12 and folate WNL, TSH 2.55 on admission Start thiamine supplementation Ammonia level stable Delirium precautions Treat below #Bacteremia 2/2 Group C beta Strep 1/4 #Severe sepsis, POA #Pneumonia, possible aspiration #Possible cellulitis, R>L Febrile with tachycardia on arrival lactate elevated at 3.3 with decrease to normal after fluid resuscitation procalcitonin elevated at 2.[address] chest concerning for pneumonia UA without infectious signs Bilateral LE cellulitis, R > L, doppler negative Blood culture 1/4 bottles growing Group C beta strep serology pcr notes strep TTE with no signs of endocarditis Treated initially with IV ertapenem and doxycycline ID consulted, appreciate recs. recommended/stated the following: -"At this time, I would suggest we D/C the ertapenem and doxycycline and instead start ceftriaxone 2g IV qd. If the blood culture turns out to just be 1 of 4 bottles with viridans Strep, then this should not require further evaluation or therapy. If it is a beta-Strep, however, our approach may need to be adjusted. Treating him for at least 5 days with abx for his pneumonia is not unreasonable regardless. This could potentially be narrowed to a PO option however based on further micro testing. Final abx plans remain pending at this time." Continued on CTX/flagyl at this time, will continue for total 7 days (EOT 03/05) #Acute on chronic blood loss anemia, c/f UGIB #Portal hypertensive gastropathy/GAVE s/p APC 02/28 #Esophagitis #Coagulopathy of Cirrhosis #Thrombocytopenia Hgb of 5.5 on arrival with transfusion of 2U pRBCs, additional unit 02/25 FOBT + on admission, imaging c/f varicosites, thickening of esophagus Anemia panel noting iron, b12 and folate levels wnl Continue to transfuse as needed, Transfuse PRBC to maintain hemoglobin of at least 7 -1UPRBC ordered 02/27 GI consulted -EGD 02/28, notable for esophagitis, portal hypertensive gastropathy/GAVE -Follow up OP GI/Hepatology Fibrinogen level stable Discontinue octreotide/PPI drip -Transitioned to PPI BID, continue #Cirrhosis 2/2 EtOH, decompensated - MELD-Na: 26 on admission, MELD today 22 - Last EGD: 02/28, PH gastropathy/GAVE, esophagitis - PSE: Denies h/o HE, encephalopathic on exam, repeat ammonia level today (Ammonia 53 on 02/24) - Ascites: s/p IR 02/25, ~6L reported, Fluid analysis without SBP, negative cultures - SBP: c/w Rocephin given sepsis on presentation and ?bleeding - EV: c/w CTX, continue PPI ggt, start ocreotide drip until GI eval given drop in hgb - HRS: Cr on admission 2.6 (baseline ~2.5 since 11/2023]), nephrology consulted - Daily CMP + INR to calculate MELD; low Na diet - Avoidance of NSAIDs; Ok to use Tylenol up to 2000 mg in divided q 6 hr doses daily prn. -Continue midodrine #CKD stage 4 -Subacute injury per nephrology Continue lasix IV 30mg qid Stop albumin 02/27 Cr downtrending #Hyponatremia iso cirrhosis Sodium of 128-129 ion admission, now 132 Nephrology consulted, appreciate recs Trend BMP #Elevated trop 2/2 Demand ischemia Trop elevated at 42.9 to 41.4 EKG with sinus tachycardia Echo as above Likely demand in setting of above, doubt ACS #R kidney Cystic Lesion Noted on imaging patient follows with [facility] [place] urologist 6 month follow up US recommended PCP followup #Chronic alcohol use AWSS, DT precautions Encourage cessation Diet:low sodium, FR 1.5L DVT prophylaxis: SCDs Dispo: PT/OT: home, encouraged Rehab/SNF given concern about ability to care for self Admission and Anticipated Discharge Date Admission Date: February 25, 2024 Subjective NAEO 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 Just states he is tired but better--more coherent today, but still deflects during conversations Physical Exam Constitutional: lethargic Respiratory: normal respiratory effort, lungs clear to auscultation Cardiovascular: RRR Gastrointestinal (Abdomen): protuberant but soft, nontender Musculoskeletal: BLE 2-3+, marginal improvement Results & Data Results & Data Vital Signs (Past 12 Hours) Vital Signs Temp Pulse Pulse Pulse Resp BP Pulse Ox 03/02/24 11:47 36.3 C L 66 20 104/68 89 L 03/02/24 08:00 03/02/24 07:52 36.5 C 70 18 103/66 92 03/02/24 06:00 69 03/02/24 03:00 36.6 C 66 18 100/56 L 90 03/02/24 02:00 Pulse Ox O2 Del Method O2 Del Method 03/02/24 11:47 Room Air 03/02/24 08:00 Room Air 03/02/24 07:52 Room Air 03/02/24 06:00 03/02/24 03:00 Room Air 03/02/24 02:00 90 Room Air Laboratory Results Short CBC 03/02/24 Range/Units 06:19 WBC 8.40 (4.8-10.8) K/ul Hgb 7.8 L (14.0-18.0) g/dl Hct 23.8 L (42.0-52.0) % Plt Count 124 L (130-400) K/uL BMP 03/02/24 06:19 Sodium 135 L Potassium 4.2 Chloride 104 Carbon Dioxide 26 BUN 30 H Creatinine 1.67 H Glucose 85 Calcium 7.8 L Liver Function 03/02/24 Range/Units 06:19 Total Bilirubin 1.6 H (0.2-1.0) mg/dl AST 22 (13-39) U/L ALT 9 (7-52) U/L Alkaline Phosphatase 34 (34-104) U/L Albumin 2.4 L (3.4-5.0) gm/dl Medications Administered Home Medications Medication Instructions Recorded Confirmed Last Taken folic acid 1 mg tablet 1 mg PO DAILY #30 tabs 08/15/23 02/25/24 Unknown Active Medications Generic Name Dose Route Start Last Admin Trade Name Freq PRN Reason Stop Dose Admin Folic Acid 1 mg 02/26/24 09:00 03/02/24 08:36 Folic Acid 1 Mg Tab PO 03/27/24 08:59 1 mg QAM GAIL Administration Furosemide 30 mg 02/27/24 17:00 03/02/24 12:26 Furosemide 40 Mg/4 Ml Vial IV 03/28/24 16:59 30 mg QID GAIL Administration Ceftriaxone Sodium 2,000 mg in 50 mls @ 100 mls/hr 02/27/24 14:00 03/02/24 14:03 Rocephin IV 03/05/24 13:59 100 mls/hr Q24H GAIL Administration Metronidazole 500 mg in 100 mls @ 100 mls/hr 02/27/24 16:00 03/02/24 09:35 Flagyl IV 03/05/24 15:59 Infused Q8H GAIL Infusion Protocol Magnesium Chloride 64 mg 03/01/24 09:00 03/02/24 08:37 Magnesium Chloride W/Calcium 64mg Delayed Rel Tab PO 03/31/24 08:59 64 mg QAM GAIL Administration Metoprolol Tartrate 12.5 mg 02/27/24 09:00 03/02/24 08:34 Metoprolol Tartrate 25 Mg Tab PO 03/28/24 08:59 12.5 mg BID GAIL Administration Midodrine 2.5 mg 02/28/24 12:00 03/02/24 12:26 Midodrine Hcl 2.5 Mg Tab PO 03/29/24 11:59 2.5 mg TID@0800,1200,1700 GAIL Administration Multivitamins 1 tab 02/26/24 09:00 03/02/24 08:37 Multivitamin Tab PO 03/27/24 08:59 1 tab QAM GAIL Administration Oxycodone HCl 5 mg 02/25/24 21:04 02/26/24 22:04 Oxycodone Hcl Ir 5 Mg Tab (Immediate Release) PO 03/10/24 21:03 5 mg Q4H PRN Administration Pain Pantoprazole Sodium 40 mg 03/01/24 11:45 03/02/24 08:35 Pantoprazole 40 Mg Tab PO 03/31/24 11:44 40 mg BID GAIL Administration Thiamine HCl 100 mg 02/26/24 09:00 03/02/24 08:37 Thiamine Hcl 100 Mg Tab PO 03/27/24 08:59 100 mg QAM GAIL Administration
--- NOTE | 2024-03-02 13:29 | Gastroenterology Progress Note ---
Date of Service March 02, 2024 Assessment & Plan (1) Esophagitis: (2) GAVE (gastric antral vascular ectasia): (3) Cirrhosis: Plan -Continue Protonix 40 mg BID moving forward -Continue previous recommendations for cirrhosis; Patient will need hepatology follow-up upon discharge. Our outpatient clinic is working to arrange this at present. -Continue to monitor H/H -Will need retreatment with an EGD in 4 weeks; Our office will schedule. -nephrology following; appreciate assistance -he's quite ill and doesnt seem to have insight into the degree of his disease state; while I do suggest hepatology eval on discharge given his young age, I also recommend palliative care discussions to assist with his goals of care as its not clear to me that he is motivated to pursue something as major as a liver transplant Admission and Anticipated Discharge Date Admission Date: February 25, 2024 Subjective Requesting to go home as he has many things to take care of at home. Review of Systems Gastrointestinal: no abdominal pain, no melena and no problem reported Physical Exam Constitutional: WD/WN, vitals as above Eyes: PERRL, conjunctivae normal, anicteric sclerae Cardiovascular: Extremities: + edema Gastrointestinal (Abdomen): Percussion/Palpation: abdomen soft and + ascites Skin: LLE erythema Results & Data Results & Data Vital Signs (Past 12 Hours) Vital Signs Temp Pulse Pulse Pulse Resp BP Pulse Ox 03/02/24 11:47 36.3 C L 66 20 104/68 89 L 03/02/24 08:00 03/02/24 07:52 36.5 C 70 18 103/66 92 03/02/24 06:00 69 03/02/24 03:00 36.6 C 66 18 100/56 L 90 03/02/24 02:00 Pulse Ox O2 Del Method O2 Del Method 03/02/24 11:47 Room Air 03/02/24 08:00 Room Air 03/02/24 07:52 Room Air 03/02/24 06:00 03/02/24 03:00 Room Air 03/02/24 02:00 90 Room Air Laboratory Results Laboratory Results - last 48 hr 03/01/24 03/02/24 05:33 06:19 WBC 7.92 8.40 RBC 2.28 L 2.48 L Hgb 7.2 L 7.8 L Hct 21.7 L 23.8 L MCV 95.2 96.0 MCH 31.6 31.5 MCHC 33.2 32.8 RDW Std Deviation 56.9 H 56.8 H RDW Coeff of Ham 16.8 H 16.7 H Plt Count 119 L 124 L MPV 10.3 10.3 PT 16.1 H 17.0 H INR 1.5 H 1.6 H Sodium 133 L 135 L Potassium 4.2 4.2 Chloride 104 104 Carbon Dioxide 24 26 Anion Gap 5 5 BUN 35 H 30 H Creatinine 1.84 H 1.67 H Est Cr Clr Drug Dosing 60.1 66.9 Est GFR ( Amer) 48.1 54.1 Est GFR (Non-Af Amer) 41.5 46.7 BUN/Creatinine Ratio 19.0 18.0 Glucose 136 H 85 Calcium 8.2 L 7.8 L Phosphorus 3.6 3.0 Magnesium 1.6 L 1.7 Total Bilirubin 1.9 H 1.6 H AST 30 22 ALT 11 9 Alkaline Phosphatase 32 L 34 Total Protein 5.8 L 6.0 Albumin 2.5 L 2.4 L Globulin 3.3 3.6 Albumin/Globulin Ratio 0.8 L 0.7 L PG Care Time/CCT Total # of Minutes Spent Total Time Spent with Patient: Total time spent is greater than 50% in coordination of care (as documented) at patient's floor/unit and/or counseling patient: Coding Level of Care Code 72214 SUB INP/OBS CARE MIN Diagnoses Esophagitis K20.90 GAVE (gastric antral vascular ectasia) K31.819 Alcoholic cirrhosis of liver with ascites K70.31 Hepatic cirrhosis type: alcoholic cirrhosis Ascites presence: with ascites (3) Cirrhosis Hepatic cirrhosis type: alcoholic cirrhosis Ascites presence: with ascites Qualified Code(s): K70.31 - Alcoholic cirrhosis of liver with ascites
[2024-03-02] MEDS: LOPERAMIDE HCL 2 MG CAP PO STA (21:46)
[2024-03-03 06:42] LABS: Hematocrit (blood only) 24.8 % (42.0-52.0); Mean Corpuscular Hemoglobin 31.4 pg (25.0-34.0); Mean Corpuscular Hgb Conc 32.3 g/dL (32.0-36.0); Mean Corpuscular Volume 97.3 fL (80.0-100.0); Mean Platelet Volume 10.2 fL (9.4-12.4); Platelet Count 129 K/uL (130-400); RDW Coefficient of Variation 17.2 % (11.5-14.5); RDW Standard Deviation 59.5 fL (36.4-46.3); Red Blood Count 2.55 M/uL (4.70-6.10); White Blood Count 7.85 K/ul (4.8-10.8)
[2024-03-03 07:02] LABS: Albumin Globulin Ratio 0.7 (0.9-2); Albumin Level 2.5 gm/dl (3.4-5.0); BUN Creatinine Ratio 19.6 (10-20); Bilirubin,Total 1.5 mg/dl (0.2-1.0); Calcium 7.9 mg/dl (8.6-10.3); Creatinine Clr Calc Pharmacy 70.8 ml/min; Est GFR (African American) 60.1 ml/min; Est GFR (Non-African American) 51.9 ml/min; Globulin 3.8 gm/dl (2.5-4.0); Potassium 4.1 mmol/L (3.5-5.1); Total Protein 6.3 gm/dl (6.0-8.3)
[2024-03-03 07:23] LABS: INR 1.6 (0.9-1.1)
--- NOTE | 2024-03-03 11:59 | Hospitalist Progress Note ---
Date of Service March 03, 2024 Assessment & Plan (1) Severe sepsis: Plan Mr Amador is a 53yoM with PMHx significant for alcoholic cirrhosis, COPD, renal cyst, CKD (baseline creatinine 2s), chronic anemia (baseline hemoglobin of 7) admitted for management of decompensated cirrhosis, complicated by ongoing acute on chronic anemia and sepsis. Patient to underwent EGD 02/28 for acute anemia. Noted to have esophagitis and GAVE. Spoke with Sister for update on 03/02. Reports that patient has never expressed any goals of care previously, agreeable for family meeting on Monday at 1 pm Patient still requiring lasix QID, continue current management #Acute toxic metabolic encephalopathy iso sepsis and decompensated cirrhosis B12 and folate WNL, TSH 2.55 on admission continue thiamine supplementation Ammonia level stable Delirium precautions Treat below #Bacteremia 2/2 Group C beta Strep / #Severe sepsis, POA #Pneumonia, possible aspiration #Possible cellulitis, R>L Febrile with tachycardia on arrival lactate elevated at 3.3 with decrease to normal after fluid resuscitation procalcitonin elevated at 2.[address] chest concerning for pneumonia UA without infectious signs Bilateral LE cellulitis, R > L, doppler negative Blood culture 1/4 bottles growing Group C beta strep serology pcr notes strep TTE with no signs of endocarditis Treated initially with IV ertapenem and doxycycline ID consulted, appreciate recs. recommended/stated the following: -"At this time, I would suggest we D/C the ertapenem and doxycycline and instead start ceftriaxone 2g IV qd. If the blood culture turns out to just be 1 of 4 bottles with viridans Strep, then this should not require further evaluation or therapy. If it is a beta-Strep, however, our approach may need to be adjusted. Treating him for at least 5 days with abx for his pneumonia is not unreasonable regardless. This could potentially be narrowed to a PO option however based on further micro testing. Final abx plans remain pending at this time." Continued on CTX/flagyl at this time, will continue for total 7 days (EOT 03/05) #Acute on chronic blood loss anemia, c/f UGIB *stable #Portal hypertensive gastropathy/GAVE s/p APC 02/28 #Esophagitis #Coagulopathy of Cirrhosis #Thrombocytopenia Hgb of 5.5 on arrival with transfusion of 2U pRBCs, additional unit 02/25 FOBT + on admission, imaging c/f varicosites, thickening of esophagus Anemia panel noting iron, b12 and folate levels wnl Continue to transfuse as needed, Transfuse PRBC to maintain hemoglobin of at least 7 -1UPRBC ordered 02/27 GI consulted -EGD 02/28, notable for esophagitis, portal hypertensive gastropathy/GAVE -Follow up OP GI/Hepatology Fibrinogen level stable Discontinue octreotide/PPI drip -Transitioned to PPI BID, continue #Cirrhosis 2/2 EtOH, decompensated - MELD-Na: 26 on admission, MELD today 18 - Last EGD: 02/28, PH gastropathy/GAVE, esophagitis - PSE: Denies h/o HE, encephalopathic on exam, repeat ammonia level today (Ammonia 53 on 02/24) - Ascites: s/p IR 02/25, ~6L reported, Fluid analysis without SBP, negative cultures - SBP: c/w Rocephin given sepsis on presentation and ?bleeding - EV: c/w CTX, continue PPI BID (drips discontinued) - HRS: Cr on admission 2.6 (baseline ~2.5 since 11/2023]), nephrology consulted, downtrending with IV lasix - Daily CMP + INR to calculate MELD; low Na diet - Avoidance of NSAIDs; Ok to use Tylenol up to 2000 mg in divided q 6 hr doses daily prn. -Continue midodrine #CKD stage 4 -Subacute injury per nephrology Continue lasix IV 30mg qid Stopped albumin 02/27 Cr downtrending #Hyponatremia iso cirrhosis *resolved Sodium of 128-129 ion admission, now 132 Nephrology consulted, appreciate recs Trend BMP #Elevated trop 2/2 Demand ischemia resolved Trop elevated at 42.9 to 41.4 EKG with sinus tachycardia Echo as above Likely demand in setting of above, doubt ACS #R kidney Cystic Lesion Noted on imaging patient follows with [facility] [place] urologist 6 month follow up US recommended PCP followup #Chronic alcohol use AWSS, DT precautions Encourage cessation Diet:low sodium, FR 1.5L DVT prophylaxis: SCDs Dispo: PT/OT: home, encouraged Rehab/SNF given concern about ability to care for self Admission and Anticipated Discharge Date Admission Date: February 25, 2024 Subjective NAEO States he is starting to feel better. Reports relief when explained update given to sister and roommate Agreed to family meeting tomorrow Denies any new symptoms at this time Ongoing IV diuersis Physical Exam Constitutional: ill appearing Respiratory: normal respiratory effort, lungs clear to auscultation Cardiovascular: RRR Gastrointestinal (Abdomen): protuberant abdomen, soft Musculoskeletal: diffuse BLE, however, continued improvement with signs of reduction in swelling and erythema Results & Data Results & Data Vital Signs (Past 12 Hours) Vital Signs Temp Pulse Pulse Resp BP Pulse Ox Pulse Ox 03/03/24 10:31 36.5 C 64 17 110/70 94 03/03/24 07:57 36.6 C 70 19 100/62 92 03/03/24 07:25 03/03/24 06:00 70 03/03/24 02:40 36.7 C 69 18 100/60 91 03/03/24 02:00 92 03/03/24 00:00 61 O2 Del Method O2 Del Method 03/03/24 10:31 Room Air 03/03/24 07:57 Room Air 03/03/24 07:25 Room Air 03/03/24 06:00 03/03/24 02:40 Room Air 03/03/24 02:00 Room Air 03/03/24 00:00 Laboratory Results Short CBC 03/03/24 Range/Units 05:50 WBC 7.85 (4.8-10.8) K/ul Hgb 8.0 L (14.0-18.0) g/dl Hct 24.8 L (42.0-52.0) % Plt Count 129 L (130-400) K/uL BMP 03/03/24 05:50 Sodium 136 Potassium 4.1 Chloride 104 Carbon Dioxide 27 BUN 30 H Creatinine 1.53 H Glucose 99 Calcium 7.9 L Liver Function 03/03/24 Range/Units 05:50 Total Bilirubin 1.5 H (0.2-1.0) mg/dl AST 20 (13-39) U/L ALT 9 (7-52) U/L Alkaline Phosphatase 36 (34-104) U/L Albumin 2.5 L (3.4-5.0) gm/dl Medications Administered Home Medications Medication Instructions Recorded Confirmed Last Taken folic acid 1 mg tablet 1 mg PO DAILY #30 tabs 08/15/23 02/25/24 Unknown Active Medications Generic Name Dose Route Start Last Admin Trade Name Freq PRN Reason Stop Dose Admin Folic Acid 1 mg 02/26/24 09:00 03/03/24 08:41 Folic Acid 1 Mg Tab PO 03/27/24 08:59 1 mg QAM GAIL Administration Furosemide 30 mg 02/27/24 17:00 03/03/24 08:40 Furosemide 40 Mg/4 Ml Vial IV 03/28/24 16:59 30 mg QID GAIL Administration Ceftriaxone Sodium 2,000 mg in 50 mls @ 100 mls/hr 02/27/24 14:00 03/02/24 15:30 Rocephin IV 03/05/24 13:59 Infused Q24H GAIL Infusion Metronidazole 500 mg in 100 mls @ 100 mls/hr 02/27/24 16:00 03/03/24 08:20 Flagyl IV 03/05/24 15:59 Infused Q8H GAIL Infusion Protocol Magnesium Chloride 64 mg 03/01/24 09:00 03/03/24 08:40 Magnesium Chloride W/Calcium 64mg Delayed Rel Tab PO 03/31/24 08:59 64 mg QAM GAIL Administration Metoprolol Tartrate 12.5 mg 02/27/24 09:00 03/03/24 08:41 Metoprolol Tartrate 25 Mg Tab PO 03/28/24 08:59 12.5 mg BID GAIL Administration Midodrine 2.5 mg 02/28/24 12:00 03/03/24 07:21 Midodrine Hcl 2.5 Mg Tab PO 03/29/24 11:59 2.5 mg TID@0800,1200,1700 GAIL Administration Multivitamins 1 tab 02/26/24 09:00 03/03/24 08:41 Multivitamin Tab PO 03/27/24 08:59 1 tab QAM GAIL Administration Oxycodone HCl 5 mg 02/25/24 21:04 02/26/24 22:04 Oxycodone Hcl Ir 5 Mg Tab (Immediate Release) PO 03/10/24 21:03 5 mg Q4H PRN Administration Pain Pantoprazole Sodium 40 mg 03/01/24 11:45 03/03/24 08:40 Pantoprazole 40 Mg Tab PO 03/31/24 11:44 40 mg BID GAIL Administration Thiamine HCl 100 mg 02/26/24 09:00 03/03/24 08:41 Thiamine Hcl 100 Mg Tab PO 03/27/24 08:59 100 mg QAM GAIL Administration
--- NOTE | 2024-03-03 13:48 | Gastroenterology Progress Note ---
Date of Service March 03, 2024 Assessment & Plan (1) Esophagitis: (2) GAVE (gastric antral vascular ectasia): (3) Cirrhosis: Plan -Continue Protonix 40 mg BID -Continue previous recommendations for cirrhosis; Patient will need hepatology follow-up upon discharge. Our outpatient clinic is working to arrange this at present. -Continue to monitor H/H -Will need retreatment with an EGD in 4 weeks; Our office will schedule. -nephrology following; appreciate assistance -he's quite ill and doesnt seem to have insight into the degree of his disease state; while I do suggest hepatology eval on discharge given his young age, I also recommend palliative care discussions to assist with his goals of care as its not clear to me that he is motivated to pursue something as major as a liver transplant - monitor closely for evidence of HE; no evidence of such on exam at this time Admission and Anticipated Discharge Date Admission Date: February 25, 2024 Subjective Review of chart notable for nursing documentation of confusion. Patient denies confusion. Would like chocolate milk, otherwise does not have much of an appetite. Review of Systems Review of Systems: All systems reviewed & are unremarkable except as noted in HPI & below Physical Exam Constitutional: Chronically ill appearing, NAD. Eyes: PERRL, conjunctivae normal, anicteric sclerae Cardiovascular: Extremities: + edema Gastrointestinal (Abdomen): Percussion/Palpation: abdomen soft and + ascites Skin: LLE erythema, non-tender Neurologic: no asterixis Results & Data Results & Data Vital Signs (Past 12 Hours) Vital Signs Temp Pulse Pulse Resp BP Pulse Ox Pulse Ox 03/03/24 10:31 36.5 C 64 17 110/70 94 03/03/24 07:57 36.6 C 70 19 100/62 92 03/03/24 07:25 03/03/24 06:00 70 03/03/24 02:40 36.7 C 69 18 100/60 91 03/03/24 02:00 92 O2 Del Method O2 Del Method 03/03/24 10:31 Room Air 03/03/24 07:57 Room Air 03/03/24 07:25 Room Air 03/03/24 06:00 03/03/24 02:40 Room Air 03/03/24 02:00 Room Air Laboratory Results Laboratory Results - last 48 hr 03/02/24 03/03/24 06:19 05:50 WBC 8.40 7.85 RBC 2.48 L 2.55 L Hgb 7.8 L 8.0 L Hct 23.8 L 24.8 L MCV 96.0 97.3 MCH 31.5 31.4 MCHC 32.8 32.3 RDW Std Deviation 56.8 H 59.5 H RDW Coeff of Ham 16.7 H 17.2 H Plt Count 124 L 129 L MPV 10.3 10.2 PT 17.0 H 17.0 H INR 1.6 H 1.6 H Sodium 135 L 136 Potassium 4.2 4.1 Chloride 104 104 Carbon Dioxide 26 27 Anion Gap 5 5 BUN 30 H 30 H Creatinine 1.67 H 1.53 H Est Cr Clr Drug Dosing 66.9 70.8 Est GFR ( Amer) 54.1 60.1 Est GFR (Non-Af Amer) 46.7 51.9 BUN/Creatinine Ratio 18.0 19.6 Glucose 85 99 Calcium 7.8 L 7.9 L Phosphorus 3.0 Magnesium 1.7 Total Bilirubin 1.6 H 1.5 H AST 22 20 ALT 9 9 Alkaline Phosphatase 34 36 Total Protein 6.0 6.3 Albumin 2.4 L 2.5 L Globulin 3.6 3.8 Albumin/Globulin Ratio 0.7 L 0.7 L PG Care Time/CCT Total # of Minutes Spent Total Time Spent with Patient: Total time spent is greater than 50% in coordination of care (as documented) at patient's floor/unit and/or counseling patient: Coding Level of Care Code 50493 SUB INP/OBS CARE 2/35MIN Diagnoses Esophagitis K20.90 GAVE (gastric antral vascular ectasia) K31.819 Alcoholic cirrhosis of liver with ascites K70.31 Hepatic cirrhosis type: alcoholic cirrhosis Ascites presence: with ascites (3) Cirrhosis Hepatic cirrhosis type: alcoholic cirrhosis Ascites presence: with ascites Qualified Code(s): K70.31 - Alcoholic cirrhosis of liver with ascites
[2024-03-04 06:45] LABS: Hematocrit (blood only) 25.8 % (42.0-52.0); Hemoglobin 8.4 g/dl (14.0-18.0); Mean Corpuscular Hemoglobin 31.5 pg (25.0-34.0); Mean Corpuscular Hgb Conc 32.6 g/dL (32.0-36.0); Mean Corpuscular Volume 96.6 fL (80.0-100.0); Mean Platelet Volume 10.4 fL (9.4-12.4); Platelet Count 146 K/uL (130-400); RDW Coefficient of Variation 17.3 % (11.5-14.5); RDW Standard Deviation 59.9 fL (36.4-46.3); Red Blood Count 2.67 M/uL (4.70-6.10); White Blood Count 8.06 K/ul (4.8-10.8)
[2024-03-04 07:01] LABS: Albumin Globulin Ratio 0.6 (0.9-2); Albumin Level 2.6 gm/dl (3.4-5.0); BUN Creatinine Ratio 20.1 (10-20); Bilirubin,Total 1.6 mg/dl (0.2-1.0); Calcium 7.9 mg/dl (8.6-10.3); Creatinine Clr Calc Pharmacy 77.7 ml/min; Est GFR (African American) 67.5 ml/min; Est GFR (Non-African American) 58.3 ml/min; Globulin 4.1 gm/dl (2.5-4.0); Total Protein 6.7 gm/dl (6.0-8.3)
[2024-03-04 07:23] LABS: INR 1.6 (0.9-1.1); Prothrombin Time 16.9 Seconds (9.0-12.0)
--- NOTE | 2024-03-04 10:41 | Nephrology Progress Note ---
Date of Service March 04, 2024 Assessment & Plan Admission and Anticipated Discharge Date Admission Date: February 25, 2024 Subjective Assessment & Plan (1) Favian with CKD---Creat now down to near normal range so FAVIAN has resolved. On lasix 30 qid for many days now. Can consider changing over to oral agents. use torsemide 40 bid + Aldactone 50 daily--will be difficult to use this as outpt but he does need diuretics. he was not on any before. (2) Severe sepsis: Plan: Seems better now (3) Alcoholic cirrhosis of liver with ascites: Plan: Still has massive ascites Subjective He feels fine. Says much less edema. Review of Systems Review of Systems: All systems reviewed & are unremarkable except as noted in Subjective Physical Exam Constitutional: well developed, + cachectic, + altered mental status (intermittently) and + frail appearing; no acute distress Eyes: EOM intact bilaterally; sclerae not anicteric ENMT: Ears: no external ear abnormality Nose: no external nose abnormality Mouth: + dry oral mucous membranes Neck: no nuchal rigidity Respiratory: normal respiratory effort Auscultation: + diminished lung sounds Cardiovascular: Rate/Rhythm: regular rate and regular rhythm Extremities: + edema (3+ BLE) Gastrointestinal (Abdomen): Inspection/Auscultation: + abdomen distended, normal bowel sounds and + abdominal edema Percussion/Palpation: abdomen soft and + ascites; abdomen nontender Musculoskeletal: Extremities: + abnormal strength Skin: no rashes, warm and dry Results & Data Vital Signs (Past 12 Hours) Vital Signs Temp Pulse Pulse Resp BP Pulse Ox O2 Del Method 03/04/24 07:46 36.9 C 68 18 107/68 93 Room Air 03/04/24 05:45 71 03/04/24 03:26 36.6 C 66 18 100/66 95 Room Air 03/03/24 23:38 59 L 03/03/24 22:49 Room Air
[2024-03-04] MEDS: TORSEMIDE 20 MG TAB PO SCH (11:41)
[2024-03-04] MEDS: SPIRONOLACTONE 25 MG TAB PO SCH (11:41)
--- NOTE | 2024-03-04 13:26 | Hospitalist Progress Note ---
Date of Service March 04, 2024 Assessment & Plan (1) Severe sepsis: Plan Mr Amador is a 53yoM with PMHx significant for alcoholic cirrhosis, COPD, renal cyst, CKD (baseline creatinine 2s), chronic anemia (baseline hemoglobin of 7) admitted for management of decompensated cirrhosis, complicated by ongoing acute on chronic anemia and sepsis. Patient to underwent EGD 02/28 for acute anemia. Noted to have esophagitis and GAVE. Spoke with Sister for update on 03/02. Reports that patient has never expressed any goals of care previously, agreeable for family meeting on Monday at 1 pm Patient still requiring lasix QID for many days, but nephrology transitioned to oral regimen today. 45 minutes spent at bedside with patient, sister, and roommate to discuss goals of care. [place] of patients liver disease was emphasized. Encouraged patient to consider rehab. Patient wishes to go home, but sister and roommate stayed to discuss and encourage patient to pursue rehab per PT/OT #Acute toxic metabolic encephalopathy iso sepsis and decompensated cirrhosis B12 and folate WNL, TSH 2.55 on admission continue thiamine supplementation Ammonia level stable Delirium precautions Treat below #Bacteremia 2/2 Group C beta Strep 1/4 #Severe sepsis, POA #Pneumonia, possible aspiration #Possible cellulitis, R>L Febrile with tachycardia on arrival lactate elevated at 3.3 with decrease to normal after fluid resuscitation procalcitonin elevated at 2.[address] chest concerning for pneumonia UA without infectious signs Bilateral LE cellulitis, R > L, doppler negative Blood culture 1/4 bottles growing Group C beta strep serology pcr notes strep TTE with no signs of endocarditis Treated initially with IV ertapenem and doxycycline ID consulted, appreciate recs. recommended/stated the following: -"At this time, I would suggest we D/C the ertapenem and doxycycline and instead start ceftriaxone 2g IV qd. If the blood culture turns out to just be 1 of 4 bottles with viridans Strep, then this should not require further evaluation or therapy. If it is a beta-Strep, however, our approach may need to be adjusted. Treating him for at least 5 days with abx for his pneumonia is not unreasonable regardless. This could potentially be narrowed to a PO option however based on further micro testing. Final abx plans remain pending at this time." Continued on CTX/flagyl at this time, will continue for total 7 days (EOT 03/05) tomorrow #Acute on chronic blood loss anemia, c/f UGIB *stable #Portal hypertensive gastropathy/GAVE s/p APC 02/28 #Esophagitis #Coagulopathy of Cirrhosis #Thrombocytopenia Hgb of 5.5 on arrival with transfusion of 2U pRBCs, additional unit 02/25 FOBT + on admission, imaging c/f varicosites, thickening of esophagus Anemia panel noting iron, b12 and folate levels wnl Continue to transfuse as needed, Transfuse PRBC to maintain hemoglobin of at least 7 -1UPRBC ordered 02/27 GI consulted -EGD 02/28, notable for esophagitis, portal hypertensive gastropathy/GAVE -Follow up OP GI/Hepatology Fibrinogen level stable Discontinue octreotide/PPI drip -Transitioned to PPI BID, continue #Cirrhosis 2/2 EtOH, decompensated - MELD-Na: 26 on admission, MELD today 18 - Last EGD: 02/28, PH gastropathy/GAVE, esophagitis - PSE: Denies h/o HE, encephalopathic on exam, repeat ammonia level today (A mmonia 53 on 02/24) - Ascites: s/p IR 02/25, ~6L reported, Fluid analysis without SBP, negative cultures - SBP: c/w Rocephin given sepsis on presentation and ?bleeding - EV: c/w CTX, continue PPI BID (drips discontinued) - HRS: Cr on admission 2.6 (baseline ~2.5 since 11/2023]), nephrology consulted, downtrending with IV lasix - Daily CMP + INR to calculate MELD; low Na diet - Avoidance of NSAIDs; Ok to use Tylenol up to 2000 mg in divided q 6 hr doses daily prn. -Continue midodrine -Start 40mg BID torsemide, Spironolactone 50mg daily #CKD stage 4 -Subacute injury per nephrology Continue lasix IV 30mg qid Stopped albumin 02/27 Cr downtrending #Hyponatremia iso cirrhosis *resolved Sodium of 128-129 ion admission, now 132 Nephrology consulted, appreciate recs Trend BMP #Elevated trop 2/2 Demand ischemia resolved Trop elevated at 42.9 to 41.4 EKG with sinus tachycardia Echo as above Likely demand in setting of above, doubt ACS #R kidney Cystic Lesion Noted on imaging patient follows with [facility] [place] 6 month follow up US recommended PCP followup #Chronic alcohol use AWSS, DT precautions Encourage cessation Diet:low sodium, FR 1.5L DVT prophylaxis: SCDs Dispo: PT/OT: home, encouraged Rehab/SNF given concern about ability to care for self Admission and Anticipated Discharge Date Admission Date: February 25, 2024 Subjective NAEO patient with continued improvement however, patient still weak Patient resistent for rehab and dispo will likely be to home No acute concerns at this time Physical Exam Constitutional: WD/WN, vitals as above Respiratory: normal respiratory effort, lungs clear to auscultation Cardiovascular: RRR Gastrointestinal (Abdomen): protuberant but soft Skin: diffuse edema BLE with notable skin changes consistent with venous stasis changed, no signs of superimposed infection at this time Results & Data Results & Data Vital Signs (Past 12 Hours) Vital Signs Temp Pulse Pulse Resp BP Pulse Ox O2 Del Method 03/04/24 11:13 36.6 C 92 H 18 119/75 92 Room Air 03/04/24 07:46 36.9 C 68 18 107/68 93 Room Air 03/04/24 05:45 71 03/04/24 03:26 36.6 C 66 18 100/66 95 Room Air Laboratory Results Short CBC 03/04/24 Range/Units 06:14 WBC 8.06 (4.8-10.8) K/ul Hgb 8.4 L (14.0-18.0) g/dl Hct 25.8 L (42.0-52.0) % Plt Count 146 (130-400) K/uL BMP 03/04/24 06:14 Sodium 136 Potassium 4.0 Chloride 104 Carbon Dioxide 27 BUN 28 H Creatinine 1.39 Glucose 92 Calcium 7.9 L Liver Function 03/04/24 Range/Units 06:14 Total Bilirubin 1.6 H (0.2-1.0) mg/dl AST 20 (13-39) U/L ALT 8 (7-52) U/L Alkaline Phosphatase 37 (34-104) U/L Albumin 2.6 L (3.4-5.0) gm/dl Medications Administered Home Medications Medication Instructions Recorded Confirmed Last Taken folic acid 1 mg tablet 1 mg PO DAILY #30 tabs 08/15/23 02/25/24 Unknown Active Medications Generic Name Dose Route Start Last Admin Trade Name Freq PRN Reason Stop Dose Admin Folic Acid 1 mg 02/26/24 09:00 03/04/24 08:01 Folic Acid 1 Mg Tab PO 03/27/24 08:59 1 mg QAM GAIL Administration Ceftriaxone Sodium 2,000 mg in 50 mls @ 100 mls/hr 02/27/24 14:00 03/03/24 13:26 Rocephin IV 03/05/24 13:59 Infused Q24H GAIL Infusion Metronidazole 500 mg in 100 mls @ 100 mls/hr 02/27/24 16:00 03/04/24 08:58 Flagyl IV 03/05/24 15:59 Infused Q8H GAIL Infusion Protocol Magnesium Chloride 64 mg 03/01/24 09:00 03/04/24 08:01 Magnesium Chloride W/Calcium 64mg Delayed Rel Tab PO 03/31/24 08:59 64 mg QAM GAIL Administration Metoprolol Tartrate 12.5 mg 02/27/24 09:00 03/04/24 08:00 Metoprolol Tartrate 25 Mg Tab PO 03/28/24 08:59 12.5 mg BID GAIL Administration Midodrine 2.5 mg 02/28/24 12:00 03/04/24 11:40 Midodrine Hcl 2.5 Mg Tab PO 03/29/24 11:59 2.5 mg TID@0800,1200,1700 GAIL Administration Multivitamins 1 tab 02/26/24 09:00 03/04/24 08:00 Multivitamin Tab PO 03/27/24 08:59 1 tab QAM GAIL Administration Oxycodone HCl 5 mg 02/25/24 21:04 02/26/24 22:04 Oxycodone Hcl Ir 5 Mg Tab (Immediate Release) PO 03/10/24 21:03 5 mg Q4H PRN Administration Pain Pantoprazole Sodium 40 mg 03/01/24 11:45 03/04/24 08:00 Pantoprazole 40 Mg Tab PO 03/31/24 11:44 40 mg BID GAIL Administration Spironolactone 50 mg 03/04/24 10:45 03/04/24 11:41 Spironolactone 25 Mg Tab PO 04/03/24 10:44 50 mg QAM GAIL Administration Thiamine HCl 100 mg 02/26/24 09:00 03/04/24 08:00 Thiamine Hcl 100 Mg Tab PO 03/27/24 08:59 100 mg QAM GAIL Administration Torsemide 40 mg 03/04/24 10:45 03/04/24 11:41 Torsemide 20 Mg Tab PO 04/03/24 10:44 40 mg BID GAIL Administration
[2024-03-05 07:59] LABS: Hematocrit (blood only) 24.3 % (42.0-52.0); Mean Corpuscular Hgb Conc 32.9 g/dL (32.0-36.0); Mean Corpuscular Volume 94.2 fL (80.0-100.0); Mean Platelet Volume 10.5 fL (9.4-12.4); Platelet Count 147 K/uL (130-400); RDW Coefficient of Variation 17.2 % (11.5-14.5); RDW Standard Deviation 57.8 fL (36.4-46.3); Red Blood Count 2.58 M/uL (4.70-6.10); White Blood Count 9.11 K/ul (4.8-10.8)
[2024-03-05 08:11] LABS: Albumin Globulin Ratio 0.6 (0.9-2); Albumin Level 2.5 gm/dl (3.4-5.0); BUN Creatinine Ratio 17.8 (10-20); Bilirubin,Total 1.6 mg/dl (0.2-1.0); Calcium 7.7 mg/dl (8.6-10.3); Est GFR (African American) 53.3 ml/min; Globulin 4.1 gm/dl (2.5-4.0); INR 1.7 (0.9-1.1); Magnesium 1.4 mg/dl (1.7-2.4); Prothrombin Time 17.5 Seconds (9.0-12.0); Total Protein 6.6 gm/dl (6.0-8.3)
--- NOTE | 2024-03-05 09:54 | Nephrology Progress Note ---
Date of Service March 05, 2024 Assessment & Plan Admission and Anticipated Discharge Date Admission Date: February 25, 2024 Subjective Assessment & Plan (1) Favian with CKD---Creat now down to near normal range so FAVIAN has resolved. I changed to oral agents yesterday as we do have to start making plan for Discharge. Will not be possible to make him edema/Ascites free just with Diuretics. use torsemide 40 bid + Aldactone 50 daily--will be difficult to use this as outpt but he does need diuretics. he was not on any before. Creat is up a bit today from yesterday to 1.7. Will follow for now. K is normal even after starting aldactone. will monitor K and renal function given Diuretics change/Addition (2) Severe sepsis: Plan: Seems much better now. BP is better but still borderline so continue Midodrine for BP support. (3) Alcoholic cirrhosis of liver with ascites: Plan: Still has massive ascites. defer to GI about further Ascitic tap. he likely needs some periodic tap. plan for Family meeting to establish level of care Subjective He feels fine. Says much less edema. Review of Systems Review of Systems: All systems reviewed & are unremarkable except as noted in Subjective Physical Exam Constitutional: well developed, + cachectic, + altered mental status (intermittently) and + frail appearing; no acute distress Eyes: EOM intact bilaterally; sclerae not anicteric ENMT: Ears: no external ear abnormality Nose: no external nose abnormality Mouth: + dry oral mucous membranes Neck: no nuchal rigidity Respiratory: normal respiratory effort Auscultation: + diminished lung sounds Cardiovascular: Rate/Rhythm: regular rate and regular rhythm Extremities: + edema (3+ BLE) Gastrointestinal (Abdomen): Inspection/Auscultation: + abdomen distended, normal bowel sounds and + abdominal edema Percussion/Palpation: abdomen soft and + ascites; abdomen nontender Musculoskeletal: Extremities: + abnormal strength Skin: no rashes, warm and dry Results & Data Vital Signs (Past 12 Hours) Vital Signs Temp Pulse Pulse Resp BP Pulse Ox Pulse Ox 03/05/24 07:29 36.9 C 67 16 107/65 97 03/05/24 07:15 03/05/24 02:58 36.6 C 65 18 93/53 L 87 L 03/05/24 02:00 94 03/04/24 22:54 36.7 C 63 18 115/77 94 O2 Del Method O2 Del Method 03/05/24 07:29 Room Air 03/05/24 07:15 Room Air 03/05/24 02:58 Room Air 03/05/24 02:00 Room Air 03/04/24 22:54 Room Air
--- NOTE | 2024-03-05 11:59 | Hospitalist Progress Note ---
Date of Service March 05, 2024 Assessment & Plan (1) Severe sepsis: Plan Mr Amador is a 53yoM with PMHx significant for alcoholic cirrhosis, COPD, renal cyst, CKD (baseline creatinine 2s), chronic anemia (baseline hemoglobin of 7) admitted for management of decompensated cirrhosis, complicated by ongoing acute on chronic anemia and sepsis. Patient to underwent EGD 02/28 for acute anemia. Noted to have esophagitis and GAVE. Spoke with Sister for update on 03/02. Reports that patient has never expressed any goals of care previously, agreeable for family meeting on Monday at 1 pm Patient still requiring lasix QID for many days, but nephrology transitioned to oral regimen today. On 03/04, 45 minutes spent at bedside with patient, sister, and roommate to discuss goals of care. [place] of patients liver disease was emphasized. Encouraged patient to consider rehab. Patient wishes to go home, but sister and roommate stayed to discuss and encourage patient to pursue rehab per PT/OT Today, discussed with patient his plans--he is considering SNF. Abdomen seemingly more firm but nontender, will order US and discuss LVP with IR #Acute toxic metabolic encephalopathy iso sepsis and decompensated cirrhosis B12 and folate WNL, TSH 2.55 on admission continue thiamine supplementation Ammonia level stable Delirium precautions Treat below #Bacteremia 2/2 Group C beta Strep 1/4 #Severe sepsis, POA #Pneumonia, possible aspiration #Possible cellulitis, R>L Febrile with tachycardia on arrival lactate elevated at 3.3 with decrease to normal after fluid resuscitation procalcitonin elevated at 2.[address] chest concerning for pneumonia UA without infectious signs Bilateral LE cellulitis, R > L, doppler negative Blood culture 1/4 bottles growing Group C beta strep serology pcr notes strep TTE with no signs of endocarditis Treated initially with IV ertapenem and doxycycline ID consulted, appreciate recs. recommended/stated the following: -"At this time, I would suggest we D/C the ertapenem and doxycycline and instead start ceftriaxone 2g IV qd. If the blood culture turns out to just be 1 of 4 bottles with viridans Strep, then this should not require further evaluation or therapy. If it is a beta-Strep, however, our approach may need to be adjusted. Treating him for at least 5 days with abx for his pneumonia is not unreasonable regardless. This could potentially be narrowed to a PO option however based on further micro testing. Final abx plans remain pending at this time." completed course of abx 03/05 #Acute on chronic blood loss anemia, c/f UGIB *stable #Portal hypertensive gastropathy/GAVE s/p APC 02/28 #Esophagitis #Coagulopathy of Cirrhosis #Thrombocytopenia Hgb of 5.5 on arrival with transfusion of 2U pRBCs, additional unit 02/25 FOBT + on admission, imaging c/f varicosites, thickening of esophagus Anemia panel noting iron, b12 and folate levels wnl Continue to transfuse as needed, Transfuse PRBC to maintain hemoglobin of at least 7 -1UPRBC ordered 02/27 GI consulted -EGD 02/28, notable for esophagitis, portal hypertensive gastropathy/GAVE -Follow up OP GI/Hepatology Fibrinogen level stable Discontinue octreotide/PPI drip -Transitioned to PPI BID, continue #Cirrhosis 2/2 EtOH, decompensated - MELD-Na: 26 on admission, MELD today 18 - Last EGD: 02/28, PH gastropathy/GAVE, esophagitis - PSE: Denies h/o HE, encephalopathic on exam, repeat ammonia level today (Ammonia 53 on 02/24) - Ascites: s/p IR 02/25, ~6L reported, Fluid analysis without SBP, negative cultures - SBP: c/w Rocephin given sepsis on presentation and ?bleeding - EV: c/w CTX, continue PPI BID (drips discontinued) - HRS: Cr on admission 2.6 (baseline ~2.5 since 11/2023]), nephrology consult ed, downtrending with IV lasix - Daily CMP + INR to calculate MELD; low Na diet - Avoidance of NSAIDs; Ok to use Tylenol up to 2000 mg in divided q 6 hr doses daily prn. -Continue midodrine -Start 40mg BID torsemide, Spironolactone 50mg daily -US abdomen for ascites assessment for possible LVP prior to dispo #CKD stage 4 -Subacute injury per nephrology Discontinued lasix IV 30mg qid 03/04, transitioned to PO Stopped albumin 02/27 Continue torsemide 40mg BID, CTM #Hyponatremia iso cirrhosis *resolved Sodium of 128-129 ion admission, now 132 Nephrology consulted, appreciate recs Trend BMP #Elevated trop 2/2 Demand ischemia resolved Trop elevated at 42.9 to 41.4 EKG with sinus tachycardia Echo as above Likely demand in setting of above, doubt ACS #R kidney Cystic Lesion Noted on imaging patient [place] [facility] [place] 6 month follow up US recommended PCP followup #Hypomagnesemia started on oral replacement, increased to BID #Chronic alcohol use AWSS, DT precautions Encourage cessation Diet:low sodium, FR 1.5L DVT prophylaxis: SCDs Dispo: PT/OT: home, encouraged Rehab/SNF given concern about ability to care for self Admission and Anticipated Discharge Date Admission Date: February 25, 2024 Subjective NAEO Reports still not sure if he wants to go to rehab, discussing with sister and roommate Denies any new acute concerns, just continued fatigue Physical Exam Constitutional: WD/WN, vitals as above Respiratory: normal respiratory effort, lungs clear to auscultation Cardiovascular: RRR, no murmur, no edema Gastrointestinal (Abdomen): protuberant abdomen Musculoskeletal: diffusely edematous legs with venous stasis changes Results & Data Results & Data Vital Signs (Past 12 Hours) Vital Signs Temp Pulse Pulse Resp BP Pulse Ox Pulse Ox 03/05/24 10:59 36.6 C 63 16 94/62 L 94 03/05/24 07:29 36.9 C 67 16 107/65 97 03/05/24 07:15 03/05/24 02:58 36.6 C 65 18 93/53 L 87 L 03/05/24 02:00 94 O2 Del Method O2 Del Method 03/05/24 10:59 Room Air 03/05/24 07:29 Room Air 03/05/24 07:15 Room Air 03/05/24 02:58 Room Air 03/05/24 02:00 Room Air Laboratory Results Short CBC 03/05/24 Range/Units 06:26 WBC 9.11 (4.8-10.8) K/ul Hgb 8.0 L (14.0-18.0) g/dl Hct 24.3 L (42.0-52.0) % Plt Count 147 (130-400) K/uL BMP 03/05/24 06:26 Sodium 136 Potassium 4.0 Chloride 104 Carbon Dioxide 27 BUN 30 H Creatinine 1.69 H D Glucose 85 Calcium 7.7 L Liver Function 03/05/24 Range/Units 06:26 Total Bilirubin 1.6 H (0.2-1.0) mg/dl AST 19 (13-39) U/L ALT 7 (7-52) U/L Alkaline Phosphatase 37 (34-104) U/L Albumin 2.5 L (3.4-5.0) gm/dl Medications Administered Home Medications Medication Instructions Recorded Confirmed Last Taken folic acid 1 mg tablet 1 mg PO DAILY #30 tabs 08/15/23 02/25/24 Unknown Active Medications Generic Name Dose Route Start Last Admin Trade Name Walt PRN Reason Stop Dose Admin Folic Acid 1 mg 02/26/24 09:00 03/05/24 08:48 Folic Acid 1 Mg Tab PO 03/27/24 08:59 1 mg QAM GAIL Administration Ceftriaxone Sodium 2,000 mg in 50 mls @ 100 mls/hr 02/27/24 14:00 03/04/24 16:15 Rocephin IV 03/05/24 13:59 Infused Q24H GAIL Infusion Metronidazole 500 mg in 100 mls @ 100 mls/hr 02/27/24 16:00 03/05/24 08:20 Flagyl IV 03/05/24 15:59 Infused Q8H GAIL Infusion Protocol Magnesium Chloride 64 mg 03/01/24 09:00 03/05/24 08:48 Magnesium Chloride W/Calcium 64mg Delayed Rel Tab PO 03/31/24 08:59 64 mg QAM GAIL Administration Metoprolol Tartrate 12.5 mg 02/27/24 09:00 03/05/24 08:48 Metoprolol Tartrate 25 Mg Tab PO 03/28/24 08:59 12.5 mg BID GAIL Administration Midodrine 2.5 mg 02/28/24 12:00 03/05/24 07:19 Midodrine Hcl 2.5 Mg Tab PO 03/29/24 11:59 2.5 mg TID@0800,1200,1700 GAIL Administration Multivitamins 1 tab 02/26/24 09:00 03/05/24 08:50 Multivitamin Tab PO 03/27/24 08:59 1 tab QAM GAIL Administration Oxycodone HCl 5 mg 02/25/24 21:04 02/26/24 22:04 Oxycodone Hcl Ir 5 Mg Tab (Immediate Release) PO 03/10/24 21:03 5 mg Q4H PRN Administration Pain Pantoprazole Sodium 40 mg 03/01/24 11:45 03/05/24 08:51 Pantoprazole 40 Mg Tab PO 03/31/24 11:44 40 mg BID GAIL Administration Spironolactone 50 mg 03/04/24 10:45 03/05/24 08:48 Spironolactone 25 Mg Tab PO 04/03/24 10:44 50 mg QAM GAIL Administration Thiamine HCl 100 mg 02/26/24 09:00 03/05/24 08:47 Thiamine Hcl 100 Mg Tab PO 03/27/24 08:59 100 mg QAM GAIL Administration Torsemide 40 mg 03/04/24 10:45 03/05/24 09:43 Torsemide 20 Mg Tab PO 04/03/24 10:44 40 mg BID GAIL Administration
[2024-03-05] MEDS: MAGNESIUM SULFATE / D5W 1 GM/100 ML BAG IV SCH (13:16)
--- NOTE | 2024-03-05 17:08 | Ultrasound Report ---
ULTRASOUND-GUIDED PARACENTESIS CLINICAL HISTORY: Ascites PROCEDURE: Procedure and risks were explained. Informed consent was obtained. A final timeout was com pleted. A pocket of ascites was identified in the left lower quadrant. The left lower quadrant was pr epped and draped in sterile fashion. 1% lidocaine was utilized for skin anesthesia. Utilizing ultrasound guidance, a 5 [place] safety centesis catheter was advanced into the pocket of as cites. Ultrasound image was obtained. A total of 8000 mL of yellow ascites fluid was removed and disc arded. The catheter was removed and Band-Aid applied. The patient tolerated the procedure well. Vital signs will be monitored postprocedure. IMPRESSION: Ultrasound-guided paracentesis as above. Performed, dictated, and signed by Colten Rivas PA-C; to be co-signed by Dr. Frank Blevins. Electronically signed by: Frank Blevins M.D. 03/05/2024 5:15 PM
[2024-03-05] MEDS: MAGNESIUM CHLORIDE W/CALCIUM 64MG DELAYED REL TAB PO SCH (20:42)
[2024-03-06] MEDS ORDERED: PROMETHAZINE 12.5 MG/50.5 ML BAG IV PRN (07:01)
--- NOTE | 2024-03-06 14:04 | Hospitalist Progress Note ---
Date of Service March 06, 2024 Assessment & Plan (1) Alcoholic cirrhosis of liver with ascites: (2) GAVE (gastric antral vascular ectasia): (3) Symptomatic anemia: (4) CKD (chronic kidney disease) stage 4, GFR 15-29 ml/min: (5) PAF (paroxysmal atrial fibrillation): Plan Patient seems to be tolerating diuresis. There does not appear to be rapid accumulation of ascites Continue oral medications Continue therapies Awaiting authorization for possible rehab placement, communication with care management Admission and Anticipated Discharge Date Admission Date: February 25, 2024 Subjective No acute issues overnight. Patient denies any pain or abdominal fullness Physical Exam Physical Exam: Constitutional: Alert HEENT: Mucous membranes moist. Lungs: Clear to auscultation, decreased, no wheezes rales or rhonchi CV: S1-S2, regular Abdomen: Soft, not distended, mild fluid wave, nontender Extremities: No significant edema Neuro: No focal deficits Psych: Cooperative, normal mood Results & Data Results & Data Vital Signs (Past 12 Hours) Vital Signs Temp Pulse Pulse Pulse Resp BP BP 03/06/24 11:06 36.8 C 63 16 118/68 03/06/24 07:35 66 03/06/24 07:10 36.7 C 66 16 104/58 L 03/06/24 02:48 36.9 C 67 18 97/57 L Pulse Ox O2 Del Method 03/06/24 11:06 94 Room Air 03/06/24 07:35 03/06/24 07:10 93 Room Air 03/06/24 02:48 93 Room Air Diagnostic Findings Reviewed imaging, laboratory and diagnostic studies. Pertinent findings as below.
[2024-03-07 06:26] LABS: Hematocrit (blood only) 23.1 % (42.0-52.0); Hemoglobin 7.8 g/dl (14.0-18.0); Mean Corpuscular Hemoglobin 31.8 pg (25.0-34.0); Mean Corpuscular Hgb Conc 33.8 g/dL (32.0-36.0); Mean Corpuscular Volume 94.3 fL (80.0-100.0); Mean Platelet Volume 10.8 fL (9.4-12.4); Platelet Count 142 K/uL (130-400); RDW Coefficient of Variation 17.5 % (11.5-14.5); RDW Standard Deviation 59.1 fL (36.4-46.3); Red Blood Count 2.45 M/uL (4.70-6.10); White Blood Count 9.35 K/ul (4.8-10.8)
[2024-03-07 06:37] LABS: BUN Creatinine Ratio 20.7 (10-20); Calcium 7.6 mg/dl (8.6-10.3); Creatinine Clr Calc Pharmacy 61.8 ml/min; Est GFR (African American) 53.3 ml/min; Magnesium 1.4 mg/dl (1.7-2.4); Potassium 3.9 mmol/L (3.5-5.1)
[2024-03-07] MEDS: MAGNESIUM SULFATE / D5W 1 GM/100 ML BAG IV SCH (07:44)
--- NOTE | 2024-03-07 09:15 | Discharge Summary ---
Discharge Summary Date of Service March 07, 2024 Principal Dx & Hospital Course #1 = Principal Diagnosis (1) Alcoholic cirrhosis of liver with ascites: (2) GAVE (gastric antral vascular ectasia): (3) Symptomatic anemia: (4) CKD (chronic kidney disease) stage 4, GFR 15-29 ml/min: (5) PAF (paroxysmal atrial fibrillation): Plan Patient was cared for in the hospital. He was seen by gastroenterology. He underwent paracentesis with 8 L of ascites removed. He was treated with antibiotics for bacteremia possible pneumonia. He underwent EGD for his anemia evaluation. Noted to have GAVE stomach due to his cirrhosis. Infectious disease consultation was obtained because of the bacteremia. Ultimately determined bacteremia is most likely contaminant and was treated for pneumonia. He completed a course of antibiotics here in the hospital. Patient was started on diuretic regimen to minimize accumulation of the ascites. This was successful. He was started on midodrine to help support his blood pressure. He was seen by therapies.He was also evaluated by cardiology and nephrology while here in the hospital. His laboratory studies stabilized. His vital signs stabilized. His strength improved and he was able to ambulate throughout the hallways of the hospital. On the day of discharge patient was tolerating his current medical regimen. He had arranged for care at home and we will set him up with outpatient follow-up with GI to follow his chronic liver issues. He may need intermittent paracentesis but this time it appears that his diuretic regimen is definitely helping with the rapid accumulation of the ascites. Patient reports that he already discussed with his sister plans for discharge home. He will follow-up with her in anticipation for discharge today Notes For Next Care Provider May need intermittent outpatient paracentesis Medication Changes From Visit Diuretics added to his medical regimen Magnesium replacement added PPI added to his medical regimen Admission HPI Per Admitting Provider History obtained from patient, ED provider, and records. Limited history from patient secondary to disoriented state. s Medical history significant for COPD, alcoholic cirrhosis, renal cyst, CRI (baseline creatinine 2s), chronic anemia (baseline hemoglobin of 7), ongoing tobacco/alcohol abuse. Last confinement July 2023 for multifocal pneumonia/influenza. Patient found to have a renal cyst on imaging. Outpatient surveillance recommended. Patient with progressive abdominal distention and bilateral leg swelling over the last couple of months. Patient not compliant with spironolactone and midodrine Rx prescribed by outpatient providers. Continues to drink as per records. Patient was at home with his sister today when he was found to be unresponsive and more confused than usual. Patient with achy abdominal pain. Patient unaware of black/bloody stools/hematemesis/coffee-ground emesis.. Worsening junky cough symptoms. Admits to increased coughing with food/water intake. No chest pain, some SOB. Denies headache symptoms. Patient brought to ER for evaluation. Cefepime administered at the ER for sepsis. Medical History as above Surgical History : Tonsillectomy Family History : Colon cancer, DM, stroke Personal/Social history : Half pack daily, alcohol abuse Admission Exam Per Admitting Provider I refer you to the H&P Discharge Exam Constitutional: Alert HEENT: Mucous membranes moist. Lungs: Clear to auscultation, decreased, no wheezes rales or rhonchi CV: S1-S2, regular Abdomen: Soft, nontender, minimal fluid wave, abdomen is not tight with ascites. Extremities: No significant edema Neuro: No focal deficits Psych: Cooperative, normal mood Updated Medication List Medication Instructions Recorded Confirmed Type folic acid 1 mg tablet 1 mg PO DAILY #30 tabs 08/15/23 02/25/24 Rx magnesium chloride 64 mg 64 mg PO BID #60 tabs 03/06/24 Rx (magnesium chloride) tablet,delayed release (Mag 64) pantoprazole 40 mg tablet,delayed 40 mg PO BID #60 tabs 03/06/24 Rx release spironolactone 25 mg tablet 50 mg (2 x 25 mg) PO QAM #30 tabs 03/06/24 Rx torsemide 20 mg tablet 40 mg (2 x 20 mg) PO BID #60 tabs 03/06/24 Rx midodrine 5 mg tablet 5 mg PO TID #90 tabs 03/07/24 Rx Hospital Stay Data Consultations 02/25/24 19:09 ED Decision to Admit Stat 02/25/24 23:12 Consult Gastroenterology Routine 02/26/24 06:33 Consult Nephrology Routine 02/26/24 08:26 Consult Infectious Diseases Routine 02/27/24 01:57 Consult Cardiology Routine Procedures Performed Operation Date: 02/29/24 16:55 <No data on this case meets the specified criteria> Diagnostic Imagining Performed Reviewed imaging, laboratory and diagnostic studies. Pertinent findings as below. Hemoglobin 7.8 Sodium 135 Creatinine 1.691 blood culture grew out beta strep group C, most likely contaminant Echocardiogram showed ejection fraction 6065%, no ASD detected, right ventricular function normal I refer you to the EGD report for details 02/25/24 16:34 CT head/brain wo con Stat 02/25/24 16:46 CT abd pelvis wo con Stat CT chest diagnostic wo con Stat 02/25/24 23:12 US venous doppler LE BI Routine 03/05/24 12:10 IR paracentesis abd w/img US Routine Pending Results Patient Have Any Pending Studies at Discharge: No Discharge Instructions Given to Patient (Per Discharging Provider) Contact gastroenterology and/or interventional radiology if you start to feel that your abdomen is getting full of fluid Total Time Total Time Spent Total Time Spent (In Minutes): 36
== END 2024-03-07 17:55 | disposition home health service (06) | DRG 871 ==
LOC: ED 16:09 → 2S 20:24 → SUATTDRO 20:24 → 2S 21:59

== ENCOUNTER 2024-04-12 10:08 | Inpatient (IN) ==
[2024-04-12 10:46] LABS: Hematocrit (blood only) 15.1 % (42.0-52.0); Hemoglobin 4.5 g/dl (14.0-18.0); Mean Corpuscular Hemoglobin 31.7 pg (25.0-34.0); Mean Corpuscular Hgb Conc 29.8 g/dL (32.0-36.0); Mean Corpuscular Volume 106.3 fL (80.0-100.0); Mean Platelet Volume 9.7 fL (9.4-12.4); Platelet Count 228 K/uL (130-400); RDW Coefficient of Variation 17.3 % (11.5-14.5); RDW Standard Deviation 66.6 fL (36.4-46.3); Red Blood Count 1.42 M/uL (4.70-6.10); White Blood Count 8.32 K/ul (4.8-10.8)
[2024-04-12] MEDS ORDERED: SODIUM CHLORIDE 0.9% 250 ML IV PRN ×2 (11:05→19:24)
[2024-04-12 11:15] LABS: Potassium 4.5 mmol/L (3.5-5.1)
[2024-04-12 11:21] LABS: BUN Creatinine Ratio 25.3 (10-20); Creatinine Clr Calc Pharmacy 40.6 ml/min; Est GFR (African American) 33.4 ml/min; Est GFR (Non-African American) 28.8 ml/min
--- NOTE | 2024-04-12 11:43 | Emergency Department Note ---
History of Present Illness General Chief Complaint: Referred by Doctor Stated Complaint: REF FOR BLOOD TRANSFUSION, LOW HEMAGLOBIN Time Seen by Provider: 04/12/24 11:04 History of Present Illness Provider Complaint: + abnormal lab Returns today for: + called because of abnormal lab/test Description of abnormal result: Low hemoglobin Associated symptoms: no fever, no chest pain, no shortness of breath or no abdominal pain HPI narrative: [place]. Patient denies any nausea or vomiting. No hematemesis coffee-ground emesis or bilious vomiting. No abdominal pain. Home Medications Medication Instructions Recorded Confirmed Type folic acid 1 mg tablet 1 mg PO DAILY #30 tabs 08/15/23 03/27/24 Rx magnesium chloride 64 mg 64 mg PO BID #60 tabs 03/06/24 03/27/24 Rx (magnesium chloride) tablet,delayed release (Mag 64) spironolactone 25 mg tablet 50 mg (2 x 25 mg) PO QAM #30 tabs 03/06/24 03/27/24 Rx torsemide 20 mg tablet 40 mg (2 x 20 mg) PO BID #60 tabs 03/06/24 03/27/24 Rx midodrine 5 mg tablet 5 mg PO TID #90 tabs 03/07/24 03/27/24 Rx pantoprazole 40 mg tablet,delayed 40 mg PO BID 3 months #180 tabs 03/15/24 03/27/24 Rx release Allergies Allergy/AdvReac Type Severity Reaction Status Date / Time Penicillins Allergy Unknown pt unsure Verified 04/02/24 12:32 of reaction Past Med/Surg History Problem List (Updated 04/12/24 @ 12:20 by Ranjith Shafer MD) UGIB (upper gastrointestinal bleed) GAVE (gastric antral vascular ectasia) Esophagitis PAF (paroxysmal atrial fibrillation) Positive blood culture CKD (chronic kidney disease) stage 4, GFR 15-29 ml/min Severe sepsis Symptomatic anemia (Acute) Metabolic encephalopathy (Acute) Alcoholic cirrhosis of liver with ascites (Acute) Abdominal ascites (Acute) Blunt trauma of nose Blunt trauma of face Hypoxia (Acute) Pancytopenia (Acute) Influenza A (Acute) Tobacco use Hypomagnesemia (Acute) Hyponatremia (Acute) Hypokalemia (Acute) Multifocal pneumonia (Acute) Sepsis (Acute) Encounter for pre-operative examination Alcohol use (Acute) Fall (Acute) Medical History Hypervolemia Symptomatic anemia hospitalized [facility] 02/26/24 for issues related to this Poor historian main details obtained from [place] Alcoholic cirrhosis of liver with ascites hospitalized [facility] 02/26/24 for issues related to this Metabolic encephalopathy hospitalized [facility] 02/26/24 for issues related to this PAF (paroxysmal atrial fibrillation) pt denies; hospitalized [facility] 02/26/24, evaluated by tae garcia per cardio consult Esophagitis History of severe sepsis hospitalized 02/26/24, [facility] 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 per med record; hospitalized [facility] 02/26/24 for issues related to this Orthostatic hypotension "he thinks" COPD (chronic obstructive pulmonary disease) History of pneumonia 07/2023, 02/26/24, hospitalized [facility] 02/26/24 for issues related to this Chronic kidney disease, stage 4 (severe) S/P abdominal paracentesis 03/21/2024, [facility] Current every day smoker Surgical History History of esophagogastroduodenoscopy (EGD) S/P cataract extraction right eye/left History of tonsillectomy History of hernia surgery infancy Family History Mother Stroke Diabetes Other Colorectal cancer Heart disease Social History Smoking Status: Current every day smoker Tobacco Type: Cigarettes Cigarettes Per Day: 10; Second Hand Exposure: Yes; Do You Dip or Chew Tobacco: No; Hx Alcohol Use: Yes (quit 02/2024) Alcohol type: beer and wine Hx Substance Use: No Preferred Language: Barbadian Communication Ability: Effective Combination Operator Required: No Beliefs That Will Affect Care: None Current Living Situation: Other Current Living Situation Comment: roommate-dia Feels Safe at Home: Yes Assistive Devices: Glasses Physical Exam 2 Vital Signs: Vital Signs - 24 hr 04/12/24 10:16 04/12/24 11:00 04/12/24 11:00 Temperature 36.3 C L Temperature Source Temporal Artery Sc an Pulse Rate 68 Pulse Rate [Apical ] 65 Respiratory Rate 19 18 Blood Pressure 111/68 Blood Pressure [Le ft Arm] 120/78 Blood Pressure Monica n 82 Blood Pressure Monica n [Left Arm] 92 Pulse Oximetry 100 100 100 Oxygen Delivery Me thod Room Air Sepsis Recent Feve r Within 48 Hours No Sepsis New/Unexpla ined Change in Men nuria Status N/A Sepsis Action Take n by Nursing No Action Required 04/12/24 12:03 Temperature 36.6 C Temperature Source Oral Pulse Rate 67 Pulse Rate [Apical ] Respiratory Rate 18 Blood Pressure 129/70 Blood Pressure [Le ft Arm] Blood Pressure Monica n 89 Blood Pressure Monica n [Left Arm] Pulse Oximetry 99 Oxygen Delivery Me thod Sepsis Recent Feve r Within 48 Hours Sepsis New/Unexpla ined Change in Men nuria Status Sepsis Action Take n by Nursing Physical Exam: Physical Exam HENT: Exam performed. - Head: Normocephalic and atraumatic. NECK: Normal range of motion. Neck supple. No JVD present. CV: Normal rate, regular rhythm, normal heart sounds and intact distal pulses. There is no peripheral edema. Palpable radial pulses bue. PULM/CHEST: Effort normal and breath sounds normal. No respiratory distress. No stridor. He has no wheezes. He has no rales. ABD: The abdomen is soft and distended. No fluid wave. There is no tenderness. There is no rebound, no guarding. Rectal: Black tarry stools. Hemoccult positive NEURO: He is alert and oriented to person, place, and time. He has normal strength. No cranial nerve deficit or sensory deficit. SKIN: Ecchymosis over the bilateral upper extremities. Course Course 1104: The patient was evaluated in room C11. A complete history and physical exam was performed Administered Medications Sodium Chloride (Nss) 1,000 mls @ 125 mls/hr IV .Q8H [facility] Stop: 05/12/24 11:14 Last Admin: 04/12/24 11:53 Dose: 125 mls/hr Documented By: MR Discontinued Medications Pantoprazole Sodium 80 mg/ (Dextrose) 120 mls @ 480 mls/hr IV NOW ONE Stop: 04/12/24 11:37 Last Admin: 04/12/24 11:52 Dose: 480 mls/hr Documented By: Medical Decision Making Medical Records Attestation: I reviewed the patient's medical records. External medical records reviewed. Patient had an EGD performed on April 02, 2024, [address] Lang which showed no esophageal varices. Patient also had a EGD performed on February 29, 2024 which showed no esophageal varices. Laboratory Data Attestation: I reviewed the patient's lab results. 04/12/24 10:24 04/12/24 10:24 Lab Results 04/12/24 04/12/24 Range/Units 10:24 11:35 WBC 8.32 (4.8-10.8) K/ul RBC 1.42 L (4.70-6.10) M/uL Hgb 4.5 L* (14.0-18.0) g/dl Hct 15.1 L* (42.0-52.0) % MCV 106.3 H (80.0-100.0) fL MCH 31.7 (25.0-34.0) pg MCHC 29.8 L (32.0-36.0) g/dL RDW Std Deviation 66.6 H (36.4-46.3) fL RDW Coeff of Ham 17.3 H (11.5-14.5) % Plt Count 228 (130-400) K/uL MPV 9.7 (9.4-12.4) fL PT 11.5 (9.0-12.0) Seconds INR 1.1 (0.9-1.1) APTT 23 (21-31) Seconds PTT Ratio 0.9 Sodium 127 L (136-145) mmol/L Potassium 4.5 (3.5-5.1) mmol/L Chloride 101 (98-107) mmol/L Carbon Dioxide 19 L (21-32) mmol/L Anion Gap 7 (3-11) BUN 63 H (6-23) mg/dl Creatinine 2.49 H (0.6-1.4) mg/dl Est Cr Clr Drug Dosing 40.6 ml/min Est GFR ( Amer) 33.4 ml/min Est GFR (Non-Af Amer) 28.8 ml/min BUN/Creatinine Ratio 25.3 H (10-20) Glucose 110 H (70-99(Fasting)) mg/dl Calcium 8.0 L (8.6-10.3) mg/dl Total Bilirubin 0.7 (0.2-1.0) mg/dl Direct Bilirubin 0.3 H (0-0.2) mg/dl AST 34 (13-39) U/L ALT 15 (7-52) U/L Alkaline Phosphatase 87 (34-104) U/L Ammonia 46.0 (18-72) umol/L Total Protein 6.8 (6.0-8.3) gm/dl Albumin 2.5 L (3.4-5.0) gm/dl Lipase 153 H (11-82) U/L Blood Type A Negative Antibody Screen NEGATIVE Crossmatch See Detail MDM Narrative Cardiac monitoring: An order was placed for continuous cardiac monitoring. The monitor shows a rate of 70 with sinus rhythm interpreted by me Patient was seen during a time of extreme volume and extreme acuity in the emergency department. Nursing triage protocols were initiated and labs were drawn by protocol in the triage area. Labs show hemoglobin of 4.5. Sodium 127. Creatinine 2.49. Total bilirubin within normal limits. Lipase 153. Patient will be started on Protonix bolus and drip and transfused 2 units of packed red blood cells. No need for octreotide as the last 2 endoscopies in last 2 months showed no esophageal varices. [facility]. Impression & Plan Acute GI bleeding, Hyponatremia, Acute kidney injury superimposed on CKD Critical Care Time Critical Care Time: Yes Total Critical Care Time: 51 I have personally spent greater than 51 minutes of critical care time in the direct management of this patient. This includes bedside care, interpretation of diagnostic studies, and testing, discussion with consultants, patient, and family members, and other required patient management activities. This 51 minutes is in excess of all separately billable procedures. Discharge Plan Visit Data Chief Complaint: Referred by Doctor Stated Complaint: REF FOR BLOOD TRANSFUSION, LOW HEMAGLOBIN ED Provider: Fernie Betancourt Discharge Problem: Acute GI bleeding, Hyponatremia, Acute kidney injury superimposed on CKD Patient Disposition: Admitted As Inpatient Forms Stand Alone Forms: My [facility] Prescriptions Prescriptions: No Action pantoprazole 40 mg tablet,delayed release (DR/EC) 40 mg PO BID 90 Days Qty: 180 3RF folic acid 1 mg tablet 1 mg PO DAILY Qty: 30 0RF torsemide 20 mg Tablet 40 mg PO BID Qty: 60 0RF spironolactone 25 mg Tablet 50 mg PO QAM Qty: 30 0RF magnesium chloride [Mag 64] 64 mg Tablet,Delayed Release (Dr/Ec) 64 mg PO BID Qty: 60 0RF midodrine 5 mg tablet 5 mg PO TID Qty: 90 0RF Rx Instructions: do not give last dose of day after 6PM or within 4 hrs of bedtime Referrals Referrals: Fadi Cole MD [Outside Practitioners] -
[2024-04-12 11:45] LABS: INR 1.1 (0.9-1.1); Partial Thromboplastin Ratio 0.9; Partial Thromboplastin Time 23 Seconds (21-31); Prothrombin Time 11.5 Seconds (9.0-12.0)
[2024-04-12] MEDS: PANTOprazole 80 MG in DEXTROSE 5% 100 ML IV ONE (11:52)
[2024-04-12] MEDS: SODIUM CHLORIDE 0.9% 1,000 ML IV SCH (11:53)
[2024-04-12 12:01] LABS: Albumin Level 2.5 gm/dl (3.4-5.0); Bilirubin Direct 0.3 mg/dl (0-0.2); Bilirubin,Total 0.7 mg/dl (0.2-1.0)
--- NOTE | 2024-04-12 12:05 | History & Physical Report ---
Date of Service April 12, 2024 Assessment & Plan (1) UGIB (upper gastrointestinal bleed): Plan #Acute on chronic normocytic anemia likely 2/2 UGIB vs. LGIB in the setting of EtOH cirrhosis -transfuse 2U -trend LA -trend H&H -GI consult for potential EGD/colon -PPI ggt -home meds, trend VS #Hepatic encephalopathy as reported by room mate -lactulose titrate to TID BM once taking PO, will hold meals for now prior to GI consult -rifaximin same as above -per GI once seen #Abdominal distention likely 2/2 decompensated cirrhosis -IR drainage once hgb has improved -home meds #Decompensated etoh cirrhosis -will prophylax against SBP given increased abd distention -rocephin #SOB likely 2/2 abd distention w/hx CAP -CXR #Hyponatremia #Acute on chronic CKD, worsened -monitor for now No IVF given abd distention NPO for now PPI ggt SCDs, hold pharmacologic prophylaxis given anemia History of Present Illness Chief Complaint: sent from PCP due to anemia Primary Care Provider: Fadi Cole MD 53M pmh EtOH cirrhosis last drink 1 mo ago, COPD, renal cyst, CKD, chronic anemia who presented to the ED on the request of his PCP due to anemia. On my exam patient endorses intermittent vertigo, no other major symptoms. Is accompanied by his room mate who states he has also been increasingly forgetful recently. Also with abd distention despite recent paracentesis. States he has been compliant with his medications and his last drink was 1 month ago. Some SOB due to abdominal distention. No melena in the last 3 months. Allergies Allergy/AdvReac Type Severity Reaction Status Date / Time Penicillins Allergy Unknown pt unsure Verified 04/02/24 12:32 of reaction Home Medications Medication Instructions Recorded Confirmed Type folic acid 1 mg tablet 1 mg PO DAILY #30 tabs 08/15/23 03/27/24 Rx magnesium chloride 64 mg 64 mg PO BID #60 tabs 03/06/24 03/27/24 Rx (magnesium chloride) tablet,delayed release (Mag 64) spironolactone 25 mg tablet 50 mg (2 x 25 mg) PO QAM #30 tabs 03/06/24 03/27/24 Rx torsemide 20 mg tablet 40 mg (2 x 20 mg) PO BID #60 tabs 03/06/24 03/27/24 Rx midodrine 5 mg tablet 5 mg PO TID #90 tabs 03/07/24 03/27/24 Rx pantoprazole 40 mg tablet,delayed 40 mg PO BID 3 months #180 tabs 03/15/24 03/27/24 Rx release Past Med/Surg History Problem List (Updated 04/12/24 @ 12:20 by Ranjith Shafer MD) UGIB (upper gastrointestinal bleed) GAVE (gastric antral vascular ectasia) Esophagitis PAF (paroxysmal atrial fibrillation) Positive blood culture CKD (chronic kidney disease) stage 4, GFR 15-29 ml/min Severe sepsis Symptomatic anemia (Acute) Metabolic encephalopathy (Acute) Alcoholic cirrhosis of liver with ascites (Acute) Abdominal ascites (Acute) Blunt trauma of nose Blunt trauma of face Hypoxia (Acute) Pancytopenia (Acute) Influenza A (Acute) Tobacco use Hypomagnesemia (Acute) Hyponatremia (Acute) Hypokalemia (Acute) Multifocal pneumonia (Acute) Sepsis (Acute) Encounter for pre-operative examination Alcohol use (Acute) Fall (Acute) Medical History Hypervolemia Symptomatic anemia hospitalized [facility] 02/26/24 for issues related to this Poor historian main details obtained from [place] Alcoholic cirrhosis of liver with ascites hospitalized [facility] 02/26/24 for issues related to this Metabolic encephalopathy hospitalized [facility] 02/26/24 for issues related to this PAF (paroxysmal atrial fibrillation) pt denies; hospitalized [facility] 02/26/24, evaluated by tae garcia per cardio consult Esophagitis History of severe sepsis hospitalized 02/26/24, [facility] 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 per med record; hospitalized [facility] 02/26/24 for issues related to this Orthostatic hypotension "he thinks" COPD (chronic obstructive pulmonary disease) History of pneumonia 07/2023, 02/26/24, hospitalized [facility] 02/26/24 for issues related to this Chronic kidney disease, stage 4 (severe) S/P abdominal paracentesis 03/21/2024, [facility] Current every day smoker Surgical History History of esophagogastroduodenoscopy (EGD) S/P cataract extraction right eye/left History of tonsillectomy History of hernia surgery infancy Family History Mother Stroke Diabetes Other Colorectal cancer Heart disease Social History Smoking Status: Current every day smoker Tobacco Type: Cigarettes Cigarettes Per Day: 10; Second Hand Exposure: Yes; Do You Dip or Chew Tobacco: No; Hx Alcohol Use: Yes (quit 02/2024) Alcohol type: beer and wine Hx Substance Use: No Preferred Language: Spanish Communication Ability: Effective Bruise Trimmer Required: No Beliefs That Will Affect Care: None Current Living Situation: Other Current Living Situation Comment: roommate-dia Feels Safe at Home: Yes Assistive Devices: Glasses Review of Systems Constitutional: no fever, no chills, no sweats, no body aches, no fatigue, no malaise and no weakness Gastrointestinal: + abdominal pain and + diarrhea/loose st ools; no nausea, no hematemesis, no dysphagia and no melena Psychiatric: + confusion; no irritability and no anxi ety Physical Exam Constitutional: WD/WN, vitals as above jaundiced Gastrointestinal (Abdomen): Inspection/Auscultation: + abdomen distended Percussion/Palpation: + ascites Psychiatric: A+Ox3, euthymic affect Results & Data Results & Data Vital Signs (Past 12 Hours) Vital Signs Temp Pulse Pulse Resp BP BP Pulse Ox 04/12/24 11:00 100 04/12/24 11:00 65 18 120/78 100 04/12/24 10:16 36.3 C L 68 19 111/68 100 O2 Del Method 04/12/24 11:00 04/12/24 11:00 04/12/24 10:16 Room Air Laboratory Results Abnormal lab results 04/12/24 Range/Units 10:24 RBC 1.42 L (4.70-6.10) M/uL Hgb 4.5 L* (14.0-18.0) g/dl Hct 15.1 L* (42.0-52.0) % MCV 106.3 H (80.0-100.0) fL MCHC 29.8 L (32.0-36.0) g/dL RDW Std Deviation 66.6 H (36.4-46.3) fL RDW Coeff of Ham 17.3 H (11.5-14.5) % Sodium 127 L (136-145) mmol/L Carbon Dioxide 19 L (21-32) mmol/L BUN 63 H (6-23) mg/dl Creatinine 2.49 H (0.6-1.4) mg/dl BUN/Creatinine Ratio 25.3 H (10-20) Glucose 110 H (70-99(Fasting)) mg/dl Calcium 8.0 L (8.6-10.3) mg/dl Direct Bilirubin 0.3 H (0-0.2) mg/dl Albumin 2.5 L (3.4-5.0) gm/dl Lipase 153 H (11-82) U/L Crossmatch See Detail Code Status & VTE Plan Code Status full code VTE Prophylaxis Plan Reason for no VTE drug order: Contraindicated
[2024-04-12 12:07] LABS: Total Protein 6.8 gm/dl (6.0-8.3)
--- OUTSIDE RECORDS SUMMARY | 2024-04-12 12:20 | External Medical Summary | Summary of Care ---
Author Name Unknown Organization [facility] Address [address] [place] [address] Phone [phone] Care Team Providers Care Laboratory Coordinator Name Role Phone Rina Neil PA-C Primary Care Provider [phone] Reason for Visit * Reason Onset Date Comments Referral 04/11/2024 SP 3-Day Encounter Details Date Type Department Care Team (Late st Contact Info) Description 04/11/2024 New Patient Triage (CORRUGATED SHEET MATERIAL SHEETER USE ONLY) Hematology/Oncology [facility] [address] [place] [address] Alba Hernandez CRNP [address] [place] [address] Referral (SP 3-Day) Allergies Active Allergy Reactions Criticality Noted Date Comments Penicillins Unknown 08/09/2023 documented as of this encounter (statuses as of 04/11/2024) Medications Medication Sig Dispensed Refills Start Date End Date Status Folic Acid 5 MG Oral Capsule Take 1 Capsule by mouth in the morning. 100 Capsule 3 11/16/2023 Active Midodrine HCl 5 MG Oral Tablet (Proamatine) Take 1 Tablet by mouth in the morning and 1 Tablet at noon and 1 Tablet in the evening. 90 Tablet 3 02/14/2024 Active Pantoprazole Sodium 40 MG Oral Tablet Delayed Release (Protonix) Take 1 Tablet by mouth in the morning and 1 Tablet in the evening. 60 Tablet 5 04/03/2024 Active Gabapentin 300 MG Oral Capsule (Neurontin)Indicatio ns:Chronic bilateral low back pain with bilateral sciatica,Paresthesia s Take 1 Capsule by mouth in the morning and 1 Capsule at noon and 1 Capsule before bedtime. 90 Capsule 5 04/03/2024 Active Fluticasone Furoate 100 MCG/ACT Inhalation Aerosol Powder Breath Activated (ARNUITY ellipta) Inhale 1 Puff by mouth in the morning. 30 Each 5 04/03/2024 Active Spironolactone 100 MG Oral Tablet (Aldactone) Take 1 Tablet by mouth in the morning. 90 Tablet 3 04/03/2024 Active Torsemide 20 MG Oral Tablet (Demadex) Take 2 Tablets by mouth in the morning and 2 Tablets before bedtime. 360 Tablet 3 04/03/2024 Active Doxepin HCl 6 MG Oral Tablet (Silenor) Take 6 mg by mouth at bedtime as needed for Insomnia. 30 Tablet 1 04/03/2024 Active Carvedilol 6.25 MG Oral Tablet (Coreg) Take 1 Tablet by mouth in the morning. 30 Tablet 04/05/2024 Active documented as of this encounter (statuses as of 04/11/2024) Active Problems Problem Noted Date Diagnosed Date Chronic kidney disease, stage 3a 04/08/2024 Overview: Per CKD protocol Alcoholic cirrhosis 12/19/2023 Ascites due to alcoholic cirrhosis 12/19/2023 COPD, 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 documented as of this encounter (statuses as of 04/11/2024) Immunizations Name Administration Dates Next Due Seasonal Influenza, Trivalent, (IIV3), PF, (Fluz one) 04/03/2024 documented as of this encounter Social History Tobacco Use Types Packs/Day Years Used Date Smoking Tobacco: Every Day Cigarettes 1 33.7 Started: 1990 Smokeless Tobacco: Never Alcohol Use Standard Drinks/Week Comments Not Currently 0 (1 standard drink = 0.6 oz pur e alcohol) last drink5 weeks ago Utilities Answer Date Recorded Do you have [...] as of this encounter Progress Notes * Usha Wong LPN - 04/11/2024 10:[address] Kumari- Called and spoke with patient. Made patient aware due to his blood work results on that he needs to go the [facility] ER. Patient verbalized understanding, stating he "has to take his cat" to the [facility] "[facility]"; He denies any SOB or other s/s of distress at this time. Reviewed lab results with patient from 04/03/2024 Hgb: 5.2 and educated patient on signs and symptoms of a low hemoglobin level. Patient reports he has been "fatigued" every day. Patient states he plans to go to the ER as advised, he denies any further questions at this time. * Usha Wong LPN - 04/11/2024 10:58 AM EDT * Usha Wong LPN - 04/11/2024 10:35 AM EDT Images from the original note were not included. New Patient Triage What is the diagnosis/reason for referral?: Anemia Enter order ID here: [id number] Specialty specific documentation: Hematology/Oncology NEW PATIENT - HEMATOLOGY/ONCOLOGY SPECIALTY TRIAGE Triage needed?: Yes Referring provider name: Dr. Kelsey MD Confirmation of diagnosis: No TRIAGE PLAN: Baseline/staging imaging complete: No Labs available: Yes Referral to other specialty recommended (ie. Surgery, outpatient infusion): No Additional triage comments: Please refer to TE from 04/08/2024, Dr. Cole documented in this encounter Plan of Treatment Upcoming Encounters Date Type Department Care Team (Late st Contact Info) Description 04/19/2024 2:00 PM EDT Telemedicine Nephrology, [place] [address] [place] [address] Victoria Boateng MD [address] [place] [address] 04/25/2024 1:00 PM EDT Appointment Radiology, [address] [address] 04/26/2024 1:15 PM EDT Imaging Radiology [address] [place] [address] 07/03/2024 10:00 AM EST Office Visit Family Practice [facility] [address] [place] [address] Rina Neil PA-C [address] [place] [address] 08/27/2024 10:20 AM EST Office Visit Hepatology, [facility] [address] [place] [address] Sari Holder MD [address] [place] [id number] 01/13/2025 1:45 PM EDT Imaging Radiology [facility] [address] [place] [address] 01/16/2025 3:00 PM EDT Office Visit Urology, [place] [address] [place] [address] Brianna Segovia PA-C [address] [place] [address] Health Maintenance Due Date Last Done Comments DISCUSS TOBACCO CESSATION (REFER TO SMARTSET #[id number]) 1972 Lipid Panel 1972 Pneumococcal Vaccine: Pediatrics (0 to 5 Years) and At-Risk Patients (6 to 64 Years) (1 of 2 - PCV) 1978 Depression Screening 1984 HIV Screening 1987 Albumin/Creatinine Ratio 1990 Alpha-1 Antitrypsin 1990 DTap/Tdap Vaccines (1 - Tdap) 1991 Hepatitis B Vaccine (1 of 3 - 19+ 3-dose series) 1991 Cologuard 2017 Colonoscopy 2017 Colorectal Cancer Screening 2017 Fecal Occult Blood Test 2017 Sigmoidoscopy 2017 Lung Cancer Screening 2022 Zoster Vaccines (1 of 2) 2022 COVID-19 Vaccine (1 - season) 2024 GFR 10/01/2024 04/03/2024, 06/0 10/2023, 12/26/2023, Additional history exists CKD HGB USE SMARTSET 06324 04/03/202504/03, 01/02/2024, 12/26/2023, Additional history exists CKD PHOS USE SMARTSET 35116 04/03/2025 04/03/2024, 0 10/17/2023 O2 ASSESSMENT COMPLETED IN PAST YEAR FOR COPD 04/03/2025 04/03/2024 Diabetes Screening 04/03/2027 04/03/2024, 0 01/02/2024, 12/26/2023, Additional history exists Influenza Vaccine (FLU shot) Completed 04/03/2024 HPV (Gardasil) Vaccine Aged Out No lo nger eligible based on patient's age to complete this topic MENINGOCOCCAL (MENACTRA/MENVEO) Aged Out No longer eligible based on patient's age to complete this topic documented as of this encounter Medical Devices Not on filedocumented as of this encounter Care Teams Laboratory Coordinator Relationship Specialty Start Date End Date JolynnOctober SHAQ Carter [address] [place] [address] PCP - General Physician Savings Teller 04/10/24 documented as of this encounter
--- OUTSIDE RECORDS SUMMARY | 2024-04-12 12:21 | External Medical Summary | Summary of Care ---
Author Name Unknown Organization [facility] Address [address] [facility] [place] [address] Phone [phone] Care Team Providers Care Photography Spotter Name Role Phone Rina Jaimes PA-C Primary Care Provider [phone] Reason for Referral * Evaluate & Treat - Unlimited Visits (Within 3 days (urgent)) - Pending Review Specialty Diagnoses / Procedures Referred By Rick t Referred To Contact Hematology/Oncology / Hematology Oncology Diagnoses Anemia, unspecified type Rina Jaimes PA-C [address] [place] [address] Referral ID Status Reason Start Date Expiration Date Visits Requested Visits Authorized [id number] Pending Review Specialty Services Required 04/10/2024 [id number] Question Answer Referral Priority Within 3 days (urgent) Where should this appointment be scheduled? [facility] Reason for Referral Anemia Reason for Visit * Reason Onset Date Comments Appointment 04/08/2024 Encounter Details Date Type Department Care Team (Late st Contact Info) Description 04/08/2024 Telephone Family Practice [place] Aime Manning [address] [place] [address] [place] Fadi PIERRE MD [address] [place] [address] Appointment Allergies Active Allergy Reactions Criticality Noted [...] encounter Miscellaneous Notes * Telephone Encounter - Nicole Gordon OSA - 04/11/2024 7:15 AM EDT Okay Great! I will get patient scheduled * Addendum Note - Rina Jaimes PA-C - 04/10/2024 6:32 PM EDTAddended by: RINA JAIMES on: 04/10/2024 06:32 PM Modules accepted: Orders * Telephone Encounter - Rina Jaimes PA-C - 04/10/2024 6:31 PM EDT There were referrals placed in 10/23/23, just placed another. Needs transfused. * Telephone Encounter - Nicole Gordon OSA - 04/10/2024 10:19 AM EDT I don't see a hematology referral in for this patient?? * Telephone Encounter - Nicole Gordon OSA - 04/10/2024 10:17 AM EDT Contacted patient to make them aware that Hematology department would be reaching out to schedule with them. * Telephone Encounter - Mariana Kaufman LPN - 04/09/2024 10:42 AM EDT Spoke to patient,he is agreeable to seeing Hematology, he has not seen them yet. He is asking if someone can call him with an appointment-phone number updated in chart * Telephone Encounter - Rina Jaimes PA-C - 04/08/2024 6:06 PM EDT Can we please see if he has seen hematology?? He needs transfused * Telephone Encounter - Marcelo Pizarro CMA - 04/08/2024 3:46 PM EDT ----- Message from Rina Jaimes sent at 04/03/2024 6:31 PM EDT ----- Showing low hemoglobin and hematocrit. Has he has seen Hematology was was suggested earlier? documented in this encounter Plan of Treatment Upcoming Encounters Date Type Department Care Team (Late st Contact Info) Description 04/19/2024 2:00 PM EDT [facility] [address] [place] [address] Victoria Boateng MD [address] [place] [address] 04/25/2024 1:00 PM EDT Appointment Radiology, [facility] [address] [place] [address] 04/26/2024 1:15 PM EDT Imaging Radiology [address] 132 [facility] [place] [address] 07/03/2024 10:00 AM EST Office Visit Family Practice [facility] 200 [facility] [place] [address] Rina Jaimes PA-C 200 [facility] [place] [address] 08/27/2024 10:20 AM EST Office Visit Hepatology, [facility] 132 [facility] [place] [address] Sari Holder MD [address] [place] [address] [place] [address] 01/13/2025 1:45 PM EDT Imaging Radiology [facility] 132 [facility] [place] [address] 01/16/2025 3:00 PM EDT Office Visit Urology, [place] [address] [place] [address] Brianna Segovia PA-C [address] [place] [address] Scheduled Referrals Name Type Priority Associated Diagnoses Orde r Schedule HEMATOLOGY/ONCOLOGY REFERRAL OP Referral Within 3 days (urgent) Anemia, unspecified type Ordered: 04/10/2024 Health Maintenance Due Date Last Done Comments DISCUSS TOBACCO CESSATION (REFER TO SMARTSET #[id number]) 1972 Lipid Panel 1972 Pneumococcal Vaccine: Pediatrics [...] of 2) 2022 COVID-19 Vaccine (1 - 2023- season) 2024 GFR 10/01/2024 04/03/2024, 06/0 10/2023, 12/26/2023, Additional history exists O2 ASSESSMENT COMPLETED IN PAST YEAR FOR [...] this encounter Visit Diagnoses Diagnosis Anemia, unspecified type- Primary documented in this encounter Care Teams Photography Spotter Relationship Specialty Start Date End Date Jolynn October SHAQ Carter [address] [place] [address] PCP - General Physician Systems Program Manager 04/10/24 documented as of this encounter
--- OUTSIDE RECORDS SUMMARY | 2024-04-12 12:21 | External Medical Summary | Summary of Care ---
Author Name Unknown Organization [facility] Address [address] [place] [address] Phone [phone] Care Team Providers Care Jewelry Coater Name Role Phone Kelsey PIERRE MD, Fadi Barker Primary Care Provider [phone] Reason for Referral * Evaluate & Treat - Unlimited Visits (Within 30 days (routine)) - Pending Review Specialty Diagnoses / Procedures Referred By Rick rodriguez Referred To Contact [facility] / Transplant Surgery Diagnoses Other cirrhosis of liver (HCC) [place] [address] Referral ID Status Reason Start Date Expiration Date Visits Requested Visits Authorized [id number] Pending Review Specialty Services Required 04/05/2024 [id number] Question Answer Referral Priority Within 30 days (routine) [facility] be [facility] What is the patient being referred for? Solid Organ Transplant Evaluation Comments Decompensated liver disease with ascites - meld is 22, last drink 1.5 months ago - consideration of liver transplant opinion. * Precert (Within 10 days (routine)) - Pending Review Specialty Diagnoses / Procedures Referred By Rick rodriguez Referred To Contact Radiology Diagnoses Other cirrhosis of liver (HCC) Procedures MRI LIVER W WO CONTRAST [place] [address] Referral ID Status Reason Start Date Expiration Date V isits Requested Visits Authorized [id number] Pending Review 04/06/2024 [id number] Reason for Visit * Reason Comments NEW PATIENT Pt reports that his stomach is really tight. Had paracentesis 2-3 weeks ago. He was going weekly. Former patient of Dr. Real Lang. * Evaluate & Treat - Unlimited Visits (Within 10 days (routine)) - Pending Review Specialty Diagnoses / Procedures Referred By Rick rodriguez Referred To Contact Gastroenterology Diagnoses Alcoholic cirrhosis of liver with ascites (HCC) Fadi Cole III, MD [address] [place] [place] [address] Referral ID Status Reason Start Date Expiration Date Visits Requested Visits Authorized [id number] Pending Review Specialty Services Required 10/31/2023 [id number] Encounter Details Date Type Department Care Team (Late st Contact Info) Description 04/05/2024 1:00 PM EDT Office Visit Hepatology, [facility] 132 [facility] [place] [address] Sari Holder MD [address] [place] [address] Other cirrhosis of liver (HCC)*; Other ascites Allergies Active Allergy Reactions Criticality Noted Date Comments Penicillins Unknown 08/09/2023 documented as of this encounter (statuses as of 04/05/2024) Medications Medication Sig Dispensed Refills Start Date [...] as of this encounter (statuses as of 04/05/2024) Active Problems Problem Noted Date Diagnosed Date Alcoholic cirrhosis 12/19/2023 Ascites due to alcoholic cirrhosis 12/19/2023 COPD, 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 documented as of this encounter (statuses as of 04/05/2024) Immunizations Name Administration Dates Next Due Seasonal [...] Sign Reading Time Taken Comments Blood Pressure 130/69 04/05/2024 12:55 PM EDT Pulse 88 04/05/2024 12:55 PM EDT Temperature 36.6 C (97.9 F) 04/05/2024 1 2:55 PM EDT Respiratory Rate - - Oxygen Saturation - - Inhaled Oxygen Concentration - - Weight 103.1 kg (227 lb 6.4 oz) 024 12:55 PM EDT Height 173.5 cm (5' 8.31") 04/05/2024 1 2:55 PM EDT Body Mass Index 34.27 04/05/2024 12:55 PM EDT documented in this encounter Progress Notes * Sari Holder MD - 04/05/2024 12:58 PM EDT Hepatology Mikey Padron CC: decompensated cirrhosis Referred by Dr. 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 Followed by Dr. Lang from [facility] in the past. This is the first office visit with me today. With his roommate today. He arrives today already on water pills - these have been being prescribed by [facility] - demadex and also aldactone thru his pcp's office. Last drink was 1.5 months ago (1 gallon of wine, prior to that was beer and Killian Beam in the quantity of about 1 gallon when drinking) - has had 3 dui or dwi's in the past. He was told of his diagnosis of cirrhosis earlier this year - in the spring. He states he has been seeing Dr. Lang who has been ordering his paracentesis but states they told him he had to come here for any further orders for paracentesis. He has been decompensated wtih ascites since the spring requiring paracentesis at [facility] - drained 3 times reportedly at [facility] ( liters in terms of drainage - spread over the last month richard half). No hematemesis, no hematochezia, no passing of blood overtly he reports to me today. He is occasionally dizzy at times. Does not feel confused. Feels swollen in his belly and legs. He stopped drinking 1.5 months ago and states today that was the last time ever he was going to drink bc he needs to save his own life. No ethanol at home. His roommate Cheri is with him today and she used to drink but has also stopped. Pmhx: Cirrhosis - informed in spring of diagnosis by mngi per history today when he was hospitalized at [facility] when the diagnosis was made Decompensated with ascites requiring paracentesis (lvp 6,8,8 liters in terms of the amount over thelast 1.5 months) Pshx: None Soc hx: Lives in [place] Has a roommate Smokes 8-10 cigarettes a day No marijuana No current ethanol Fam hx: None Past Medical History: Diagnosis Date Alcoholic cirrhosis (HCC) 12/19/2023 Alcoholism (HCC) Ascites due to alcoholic cirrhosis (HCC) 12/19/2023 COPD, mild (HCC) 12/19/2023 Current smoker Family history of colon cancer paternal grandfather Current Outpatient Medications Medication Sig Dispense Refill Folic Acid 5 MG Oral Capsule Take 1 Capsule by mouth in the morning. 100 Capsule 3 Midodrine HCl 5 MG Oral Tablet (Proamatine) Take 1 Tablet by mouth in the morning and 1 Tablet at noon and 1 Tablet in the evening. 90 Tablet 3 Pantoprazole Sodium 40 MG Oral Tablet Delayed Release (Protonix) Take 1 Tablet by mouth in the morning and 1 Tablet in the evening. 60 Tablet 5 Gabapentin 300 MG Oral Capsule (Neurontin) Take 1 Capsule by mouth in the morning and 1 Capsule at noon and 1 Capsule before bedtime. 90 Capsule 5 Fluticasone Furoate 100 MCG/ACT Inhalation Aerosol Powder Breath Activated (ARNUITY ellipta) Inhale1 Puff by mouth in the morning. 30 Each 5 Spironolactone 100 MG Oral Tablet (Aldactone) Take 1 Tablet by mouth in the morning. 90 Tablet 3 Torsemide 20 MG Oral Tablet (Demadex) Take 2 Tablets by mouth in the morning and 2 Tablets before bedtime. 360 Tablet 3 Doxepin HCl 6 MG Oral Tablet (Silenor) Take 6 mg by mouth at bedtime as needed for Insomnia. 30 Tablet 1 No current facility-administered medications for this visit. Review of patient's allergies indicates: Allergen Reactions Penicillins Unknown Social History Socioeconomic History Marital status: Single Spouse name: Not on file Number of children: Not on file Years of education: Not on file Highest education level: Not on file Occupational History Not on file Tobacco Use Smoking status: Every Day Current packs/day: 0.50 Average packs/day: 1 pack/day for 33.7 years (32.3 ttl pk-yrs) Types: Cigarettes Start date: 1990 Smokeless tobacco: Never Vaping Use Vaping status: Never Used Substance and Sexual Activity Alcohol use: Not Currently Comment: last drink5 weeks ago Drug use: Never Sexual activity: Yes Other Topics Concern Not on file Social History Narrative Not on file Social Determinants of Health Financial Resource Strain: Not on file Food Insecurity: Not on file Transportation Needs: Not on file Social Connections: Unknown (01/16/2024) Social Connections How often do you feel lonely or isolated from those around you? (Adult - for ages 18 years and over): Not on file Housing Stability: Not on file Family History Problem Relation Name Age of Onset Stroke Mother Hypertension Mother Diabetes Mother Other (stroke) Mother Heart block Father Colon cancer Grandfather (Paternal) ROS: Constitutional: No report of fever, chills, night sweats. There have been no non-intentional weightchanges. Eyes: No recent changes in visual acuity or blurring of vision. ENT: No change in auditory acuity, sense of smell or taste. CV: No chest pain, palpitations, dyspnea on exertion. Respiratory: No wheezing, cough, sputum production. : No dysuria, polyuria, change in urinary frequency. GI: Per HPI, otherwise negative. Psychiatric: No chronic changes in mood, affect or sensorium. Musculoskeletal: No myalgias, arthralgias, or joint pains. Neurological: No change in gait, change in maintenance of balance, neurologic injuries. Physical Exam Constitutional: BP 130/69 | Pulse 88 | Temp 36.6 C (97.9 F) | Ht 1.735 m (5' 8.31") | Wt 103.1 kg (227 lb 6.4 oz) | BMI 34.27 kg/m | BSA 2.23 m Commercial Fisherman Documentation Patient offered first line supervisor and declined. Pale appearing, sick white male in nad Eyes: Conjunctivae and sclerae are clear and non-icteric. Pupils are equally round and reactive to light, extra-ocular movements intact. ENT: Nares are patent and without discharge. Oropharynx is clear and without erythema or exudates. Buccal mucosa is moist. CV: Heart is regular without murmur, rub or katia. Pulm: Clear to percussion and auscultation. GI: Abdomen is distended with ascites - moderate in distension, not taut but approaching Psychiatric: The patient is alert and oriented in all four spheres. Mood is euthymic. Affect is appropriate for the situation. Skin: No rashes were noted. Musculoskeletal: Gait is normal. Patient is able to transfer from sitting position to exam table without assistance. Ext: swollen lower legs Labs reviewed: Meld 3.0 as of 04/23 was 21 Anemia - macrocytic with recent hbg noted to be in the high 5's - but denies overt bleeding no significant rise in bun however he has had issues with renal failure in the past few months Last imaging: MRI 11/21 - cirrhosis, sludge in gb, Last egd in 03/23 thru [facility] - done by [facility] physician there - food in the stomach, moderate phg, gave treated with apc, no visible varices reported in th esophagus or stomach A/P: Ethanol cirrhosis- meld is 21 1.5 months ago was his last drink He is d/w ascites on torsemide/aldactone and also requiring lvp (3 taps over 5 liters in the last 2months thru [facility]) Transplant surgery referral placed Due for hcc screening next month - MRI Liver ordered. Ascites - on torsemide and aldactone, therapeutic paracentesis ordered for potentially [facility] given he is approaching more severe distension Anemia - macrocytic anemia on folic acid and reportedly thiamine, he overall is not reporting any active bleeding, however his recent hgb is lower than before, will attempt to help arrange a blood transfusion for him. Did also communicate with Rina Neil who the patient states he has seen before about potential transfusion need. He was advised if he becomes sob or notices overt bleeding to consider seeking ER attention. Portal htn in the form of moderate phg and gave per endoscopy in 03/23- would recommneded starting coreg 6.25 mg po daily to help reduce portal pressures- advised to not take the medication if he is dizzy or if he doesn't eat Encouraged boost or ensure daily 3 month fup Sari Holder MD documented in this encounter Nursing Notes * Erica Peña LPN - 04/05/2024 12:53 PM EDT Chief Complaint Patient presents with NEW PATIENT Pt reports that his stomach is really tight. Had paracentesis 2-3 weeks ago. He was going weekly. Former patient of Dr. Real Lang. documented in this encounter Plan of Treatment Upcoming Encounters Date Type Department Care Team (Late st Contact Info) Description 04/19/2024 2:00 PM EDT Telemedicine Nephrology, [place] [address] [facility] [place] [address] Victoria Boateng MD [address] [facility] [place] [address] 04/26/2024 1:15 PM EDT Imaging Radiology [facility] 132 [facility] [place] [address] 07/03/2024 10:00 AM EST Office Visit [facility] 200 [facility] [place] [address] Rina Neil PA-C 200 [facility] [place] [address] 08/27/2024 10:20 AM EST Office Visit Hepatology, [address] [place] [address] Sari Holder MD [address] [place], [place] [address] [address] 01/13/2025 1:45 PM EDT Imaging Radiology [facility] 132 [facility] [place] [address] 01/16/2025 3:00 PM EDT Office Visit [facility]rology, [place] [address] [facility] [address] Brianna Segovia PA-C [address] [place] [address] Scheduled Orders Name Type Priority Associated Diagnoses Orde r Schedule MRI LIVER W WO CONTRAST Medical Imaging Routine Other cirrhosis of liver (HCC) Expected: 04/06/2024, Expires: 05/05/2025 IR PARACENTESIS Medical Imaging Routine Other ascites Ordered: 04/05/2024 Scheduled Referrals Name Type Priority Associated Diagnoses Orde r Schedule TRANSPLANT SURGERY REFERRAL OP Referral Within 30 days (routine) Other cirrhosis of liver (HCC) Ordered: 04/05/2024 Health Maintenance Due Date Last Done Comments DISCUSS TOBACCO CESSATION (REFER TO SMARTSET #[id number]) 1972 Lipid Panel 1972 Pneumococcal Vaccine: Pediatrics (0 to 5 Years) and At-Risk Patients (6 to 64 Years) (1 of 2 - PCV) 1978 Depression Screening 1984 HIV Screening 1987 Alpha-1 Antitrypsin 1990 DTap/Tdap Vaccines (1 - Tdap) 1991 Hepatitis B Vaccine (1 of 3 - 19+ 3-dose series) 1991 Cologuard 2017 Colonoscopy 2017 Colorectal Cancer Screening 2017 Fecal Occult Blood Test 2017 Sigmoidoscopy 2017 Lung Cancer Screening 2022 Zoster Vaccines (1 of 2) 2022 COVID-19 Vaccine (1 - 24 season) 2024 O2 ASSESSMENT COMPLETED IN PAST YEAR [...] as of this encounter Visit Diagnoses Diagnosis Other cirrhosis of liver (HCC)- Primary Other ascites documented in this encounter Care Teams Jewelry Coater Relationship Specialty Start Date End Date Fadi Cole III, MD [address] [facility], [place] [id number] PCP - General Family Medicine 10/20/23 documented as of this encounter
--- OUTSIDE RECORDS SUMMARY | 2024-04-12 12:21 | External Medical Summary | Summary of Care ---
Author Name Unknown Organization [facility] Address [address] [facility] [place] [address] Phone [phone] Care Team Providers Care Coin Machine Service Repairer Name Role Phone Rina Neil PA-C Primary Care Provider [phone] Reason for Visit * Reason Onset Date Comments Appointment 04/08/2024 Encounter Details Date Type Department Care Team (Late st Contact Info) Description 04/08/2024 Telephone Family Practice [facility] 200 [place] [address] Fadi Cole III, MD 200 [facility] [place] [address] Appointment Allergies Active Allergy Reactions Criticality Noted Date Comments Penicillins Unknown 08/09/2023 documented as of this encounter (statuses as of 04/10/2024) Medications Medication Sig Dispensed Refills Start Date [...] as of this encounter (statuses as of 04/10/2024) Active Problems Problem Noted Date Diagnosed Date Alcoholic cirrhosis 12/19/2023 Ascites due to alcoholic cirrhosis 12/19/2023 COPD, 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 documented as of this encounter (statuses as of 04/10/2024) Immunizations Name Administration Dates Next Due Seasonal [...] in chart * Telephone Encounter - Rina Neil PA-C - 04/08/2024 6:06 PM EDT Can we please see if he has seen hematology?? He needs transfused * Telephone Encounter - Marcelo Pizarro CMA - 04/08/2024 3:46 PM EDT ----- Message from Rina Neil sent at 04/03/2024 6:31 PM EDT ----- Showing low hemoglobin and hematocrit. Has he has seen Hematology was was suggested earlier? documented in this encounter Plan of Treatment Upcoming Encounters Date Type Department Care Team (Late st Contact Info) Description 04/19/2024 2:00 PM EDT Telemedicine Nephrology, [place] [address] [facility] [place] [address] Victoria Boateng MD [address] [facility] [place] [address] 04/26/2024 1:15 PM EDT Imaging Radiology [facility]st [facility] 132 [place] [address] 07/03/2024 10:00 AM EST Office Visit Family Practice [facility] 200 [facility] [place] [address] Rina Neil PA-C 200 [facility] [place] [address] 08/27/2024 10:20 AM EST Office Visit Hepatology, [facility] 132 [facility] [address] Sari Holder MD [facility] [place] [address] 01/13/2025 1:45 PM EDT Imaging Radiology [facility] 132 [place] [address] 01/16/2025 3:00 PM EDT Office Visit Urology, [place] [address] [facility] [place] [address] Brianna Segovia PA-C [address] [facility] [place] [address] Health Maintenance Due Date Last Done Comments DISCUSS TOBACCO CESSATION (REFER TO SMARTSET #[id number]) 1972 Lipid Panel 1972 Pneumococcal Vaccine: Pediatrics [...] 2022 COVID-19 Vaccine (1 - season) 2024 O2 ASSESSMENT COMPLETED IN PAST [...] filedocumented as of this encounter Care Teams Coin Machine Service Repairer Relationship Specialty Start Date End Date Jolynn October SHAQ Carter [address] [place] [address] PCP - General Physician Puppet Maker 04/10/24 documented as of this encounter
--- OUTSIDE RECORDS SUMMARY | 2024-04-12 12:21 | External Medical Summary | Summary of Care ---
Author Name Unknown Organization [facility] Address [address] [facility] [place] [address] Phone [phone] Care Team Providers Care Surgical Services Asst Name Role Phone Rina Neil PA-C Primary Care Provider [phone] Reason for Visit * Reason Onset Date Comments Appointment 04/08/2024 Encounter Details Date Type Department Care Team (Late st Contact Info) Description 04/08/2024 Telephone Family Practice [facility] 200 [place] [address] Fadi Cole III, MD 200 [facility] [place] [address] Appointment Allergies Active Allergy Reactions Criticality Noted [...] Description 04/19/2024 2:00 PM EDT Telemedicine Nephrology, [place] [address] [place] [facility] [place] [address] Victoria Boateng MD [address] [place] [facility] [place] [address] 04/26/2024 1:15 PM EDT Imaging Radiology [facility]st [facility] [address] [place] [address] 07/03/2024 10:00 AM EST Office Visit Family Practice [facility] 200 [place] [address] Rina Neil PA-C 200 [facility] [place] [address] 08/27/2024 10:20 AM EST Office Visit Hepatology, [facility] 132 [place] [address] Sari Holder MD [facility] [place] [address] 01/13/2025 1:45 PM EDT Imaging Radiology [facility] 132 [facility] [place] [address] 01/16/2025 3:00 PM EDT Office Visit Urology, [place] [address] [place] [facility] [place] [address] Brianna Segovia PA-C [address] [facility] [place] [address] Health Maintenance Due Date Last Done Comments DISCUSS TOBACCO CESSATION (REFER TO SMARTSET #0622) 1972 Lipid Panel 1972 Pneumococcal Vaccine: Pediatrics [...] filedocumented as of this encounter Care Teams Surgical Services Asst Relationship Specialty Start Date End Date Jolynn October SHAQ Carter [address] [place] [address] PCP - General Physician Mixer Blender 04/10/24 documented as of this encounter
--- OUTSIDE RECORDS SUMMARY | 2024-04-12 12:21 | External Medical Summary | Summary of Care ---
Author Name Unknown Organization [facility] Address [address] [facility] [place] [address] Phone [phone] Care Team Providers Care Engineering Operator Name Role Phone Kelsey PIERRE MD, Fadi Barker Primary Care Provider [phone] Reason for Visit * Reason Comments Outpatient Testing Encounter Details Date Type Department Care Team (Late st Contact Info) Description 04/03/2024 12:50 PM EDT Laboratory [facility] [place] [address] [place] [phone] [facility] 200 [facility] [place] [address] Alcoholic cirrhosis of liver with ascites (HCC) Allergies Active Allergy Reactions Criticality Noted Date Comments Penicillins Unknown 08/09/2023 documented as of this encounter (statuses as of 04/03/2024) Medications Medication Sig Dispensed Refills Start Date [...] for Insomnia. 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 documented as of this encounter (statuses as of 04/03/2024) Immunizations Name Administration Dates Next Due Seasonal [...] 04/05/2024 1:00 PM EDT Office Visit Hepatology, [facility] [address] [place] [address] Sari Holder MD [address] [place] [address] 04/19/2024 2:00 PM EDT Telemedicine Nephrology, [place] [address] [place] [address] Victoria Boateng MD [address] [place], [place] [id number] 07/03/2024 10:00 AM EST Office Visit [facility] 200 [place] [address] Rina Neil PA-C 200 [facility] [place] [address] 01/13/2025 1:45 PM EDT Imaging Radiology [facility] 132 [facility] [place] [address] 01/16/2025 3:00 PM EDT Office Visit Urology, [place] [address] [place], [place] [phone] Brianna Segovia PA-C [address] [facility] [place] [id number] Pending Results Name Type Priority Associated Diagnoses Date /Time COMPREHENSIVE METABOLIC PANEL Lab Routine Alcoholic cirrhosis of liver with ascites (HCC) 04/03/2024 12:51 PM EDT Health Maintenance Due Date Last Done Comments DISCUSS TOBACCO CESSATION (REFER TO SMARTSET #5879) 1972 Lipid Panel 1970 Pneumococcal Vaccine: Pediatrics [...] 2022 COVID-19 Vaccine (1 - 2022-24 season) 2024 O2 ASSESSMENT COMPLETED IN PAST YEAR FOR COPD 04/03/2025 04/03/2024 Diabetes Screening 01/01/2027 01/02/2024, 0 12/26/2023, 12/19/2023, Additional history exists Influenza Vaccine (FLU shot) [...] Priority Date/Time Associated Diagnosis Comments CBC Routine 04/03/2024 12:51 PM EDT Alcoholic cirrhosis of liver with ascites (HCC) documented in this encounter Results * (ABNORMAL) CBC (04/03/2024 12:51 PM EDT) WBC 8.49 4.00 - 10.80 K/uL 04/03/2024 1:03 PM EDT [facility] [place] 56-02 RBC 1.53 4.50 - 5.25 M/uL 04/03/2024 1:03 PM EDT [facility] [place] 56-02 HGB 5.2(LL) 14.0 - 16.8 g/dL 04/03/2024 1:03 PM EDT [facility] [place] 56-02 HCT 17.5(L) 40.0 - 48.4 % 04/03/2024 1:03 PM EDT [facility] [place] 56-02 MCV 114.4 82.0 - 99.5 fL 04/03/2024 1:03 PM EDT [facility] [place] 56-02 MCH 34.0 27.0 - 34.0 pg 04/03/2024 1:03 PM EDT [facility] 56 MCHC 29.7 32.0 - 36.0 g/dL 04/03/2024 1:03 PM EDT [facility] 56 RDW 21.7 11.5 - 15.5 % 04/03/2024 1:03 PM EDT [facility] 56 PLT 196 140 - 400 K/uL 04/03/2024 1:03 PM EDT [place] [address] MPV 9.6 6.6 - 11.1 fL 04/03/2024 1:03 PM EDT [facility] 56 Blood Venous blood specimen / Unknown Venipuncture / Unknown 04/03/2024 12:51 PM EDT 04/03/2024 12:51 PM EDT October Jolynn NEW LAB BLOOD ORDERABLES [facility] 200 [facility] [place] [address] documented in this encounter Visit Diagnoses Diagnosis Alcoholic cirrhosis of liver with ascites (HCC) Alcoholic cirrhosis of liver documented in this encounter Care Teams Engineering Operator Relationship Specialty Start Date End Date Fadi Cole III, MD 200 [facility] [place] [address] PCP - General Family Medicine 10/20/23 documented as of this encounter
--- OUTSIDE RECORDS SUMMARY | 2024-04-12 12:21 | External Medical Summary | Summary of Care ---
Author Name Unknown Organization [facility] Address [address] [facility] [place] [address] Phone [phone] Care Team Providers Care Calendar Control Clerk Blood Bank Name Role Phone Kelsey PIERRE MD, Fadi Barker Primary Care Provider [phone] Reason for Referral * Evaluate & Treat - Unlimited Visits (Within 30 days (routine)) - Pending Review Specialty Diagnoses / Procedures Referred By Rick rodriguez Referred To Contact Nephrology Diagnoses GRACIELA (acute kidney injury) (HCC) Alcoholic cirrhosis of liver with ascites (HCC) Shahram Booth DO [address] [place] [address] Referral ID Status Reason Start Date Expiration Date Visits Requested Visits Authorized [id number] Pending Review Specialty Services Required 01/05/[phone] Question Answer Referral Priority Within 30 days (routine) Where should this appointment be scheduled? [facility] What condition is this patient being seen for? Acute kidney injury Reason for Visit * Reason Onset Date Comments Appointment 01/05/2024 Nephrology appt Encounter Details Date Type Department Care Team (Late st Contact Info) Description 01/05/2024 Telephone Family Practice [place] [facility] [place] [address] [place] [address] Shahram Booth DO [address] [place] [address] [address] Appointment (Nephrology appt ) Allergies Active Allergy Reactions Criticality Noted Date [...] of this encounter (statuses as of 04/05/2024) Social History Tobacco Use Types Packs/Day Years [...] encounter Miscellaneous Notes * Telephone Encounter - Jennyfer Sauer OSA - 01/05/2024 3:44 PM EDT As of right now there are no open spots within [facility] that I am able to schedule in for at least the next year. 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 Thank you. * Telephone Encounter - Shahram Booth DO - 01/05/2024 3:02 PM EDT I called over and discussed Santiago's blood work and how bad it looks. I want to get him in with nephrology considering how his kidney function continues to decline. We won't get help from hepatology for awhile still. Please call to schedule visit with nephrology * Telephone Encounter - Shahram Booth DO - 01/05/2024 2:51 PM EDT ----- Message from October Raul Neil sent at 01/02/2024 7:33 PM EDT ----- Now what?? ----- Message ----- From: Linad Rodríguez Automated Processing Sent: 01/02/2024 2:09 PM EDT To: Rina Neil PA-C * Telephone Encounter - Shahram Booth DO - 01/05/2024 10:06 AM EDT ----- Message from October Raul Neil sent at 01/02/2024 7:33 PM EDT ----- Now what?? ----- Message ----- From: Linda Rodríguez Automated Processing Sent: 01/02/2024 2:09 PM EDT To: Rina Neil PA-C documented in this encounter Plan of Treatment Upcoming Encounters Date Type Department Care Team (Late st Contact Info) Description 04/19/2024 2:00 PM EDT Telemedicine Nephrology, [place] [address] [place] [address] Victoria Boateng MD [address] [place] [address] 04/26/2024 1:15 PM EDT Imaging Radiology [address], [address] [place] [address] 07/03/2024 10:00 AM EST Office Visit Family Practice [facility] [address] [place] [address] Rina Neil PA-C 200 [facility] [place] [place] [address] 08/27/2024 10:20 AM EST Office Visit Hepatology, [facility] 132 [facility] [place] [address] Sari Holder MD [address] [place] [address] [place] [address] 01/13/2025 1:45 PM EDT Imaging Radiology [facility] 132 [facility] [place] [address] 01/16/2025 3:00 PM EDT Office Visit Urology, [place] [address] [place] [address] Brianna Segovia PA-C [address] [place] [address] Scheduled Orders Name Type Priority Associated Diagnoses Orde r Schedule URINALYSIS, REFLEX TO MICROSCOPIC Lab Routine GRACIELA (acute kidney injury) (HCC) Alcoholic cirrhosis of liver with ascites (HCC) Expected: 01/05/2024, Expires: 01/04/2025 ALBUMIN / CREATININE RATIO, URINE Lab Routine GRACIELA (acute kidney injury) (HCC) Alcoholic cirrhosis of liver with ascites (HCC) Expected: 01/05/2024, Expires: 01/04/2025 Scheduled Referrals Name Type Priority Associated Diagnoses Orde r Schedule NEPHROLOGY REFERRAL OP Referral Within 30 days (routine) GRACIELA (acute kidney injury) (HCC) Alcoholic cirrhosis of liver with ascites (HCC) Ordered: 01/05/2024 Health Maintenance Due Date Last Done Comments DISCUSS TOBACCO CESSATION (REFER TO SMARTSET #5343) 1972 Lipid Panel 1972 Pneumococcal Vaccine: Pediatrics [...] filedocumented as of this encounter Results * HEPATITIS B SURFACE ANTIGEN (04/03/2024 12:51 PM EDT) Hepatitis B Surface Antigen Negative Negative 04/04/2024 2:02 AM EDT LABORATORY [facility] Blood Venous blood specimen / Unknown Venipuncture / Unknown 04/03/2024 12:51 PM EDT 04/03/2024 12:51 PM EDT Shahram Booth DO LAB BLOOD ORDERABLE S LABORATORY [facility] [address] [place] [address] documented in this encounter Visit Diagnoses Diagnosis GRACIELA (acute kidney injury) (HCC)- Primary Acute kidney failure, unspecified Alcoholic cirrhosis of liver with ascites (HCC) Alcoholic cirrhosis of liver documented in this encounter Care Teams Calendar Control Clerk Blood Bank Relationship Specialty Start Date End Date Fadi Cole III, MD [address] [place] [address] PCP - General Family Medicine 10/20/23 documented as of this encounter
--- OUTSIDE RECORDS SUMMARY | 2024-04-12 12:21 | External Medical Summary | Summary of Care ---
Author Name Unknown Organization [facility] Address [address] [place] [address] Phone [phone] Care Team Providers Care Aws Solution Architect Name Role Phone Kelsey PIERRE MD, Fadi Barker Primary Care Provider [phone] Reason for Visit * Reason Onset Date Comments Scheduling 04/09/2024 Encounter Details Date Type Department Care Team (Late st Contact Info) Description 04/09/2024 Telephone Gastroenterology, [address] [address] Sari Holder MD [address] [place] [address] Scheduling Allergies Active Allergy Reactions Criticality Noted Date Comments Penicillins Unknown 08/09/2023 documented as of this encounter (statuses as of 04/09/2024) Medications Medication Sig Dispensed Refills Start Date [...] as of this encounter (statuses as of 04/09/2024) Active Problems Problem Noted Date Diagnosed Date Alcoholic cirrhosis 12/19/2023 Ascites due to alcoholic cirrhosis 12/19/2023 COPD, 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 documented as of this encounter (statuses as of 04/09/2024) Immunizations Name Administration Dates Next Due Seasonal [...] encounter Miscellaneous Notes * Telephone Encounter - Carmita Collado OSA - 04/09/2024 11:14 AM EDT Attempted to reach patient with the old phone number was not in service and called the patients Manuela to get the updated number , she said if I didn't get him that she could go to his house to givehim the message but I did try the new number and talked to the patient about scheduling the Paracentesis but here he was on his way to [facility] for the Paracentesis. I offered him 04/18 but we didn't have a Tues opening, he will see what [facility] [place] has and may continue over there for the paracentesis. documented in this encounter Plan of Treatment Upcoming Encounters Date Type Department Care Team (Late st Contact Info) Description 04/19/2024 2:00 PM EDT Telemedicine Nephrology, [place] [address] [place] [address] Victoria Boateng MD [address] [place] [address] 04/26/2024 1:15 PM EDT Imaging Radiology [facility]st [facility] 132 [facility] [place] [address] 07/03/2024 10:00 AM EST Office [facility] [address] [place] [address] Rina Neil PA-C [address] [place] [address] 08/27/2024 10:20 AM EST Office Visit Hepatology, [facility] 132 [facility] [place] [address] Sari Holder MD [address] [facility] [place] [address] 01/13/2025 1:45 PM EDT Imaging Radiology [facility] [address] [place] [address] 01/16/2025 3:00 PM EDT Office Visit Urology, [place] [address] [place] [address] Brianna Segovia PA-C [address] [place] [address] Health Maintenance Due Date Last Done Comments DISCUSS TOBACCO CESSATION (REFER TO SMARTSET #1693) 1972 Lipid Panel 1972 Pneumococcal Vaccine: Pediatrics [...] filedocumented as of this encounter Care Teams Aws Solution Architect Relationship Specialty Start Date End Date Fadi Cole III, MD [address] [place] [address] PCP - General Family Medicine 10/20/23 documented as of this encounter
--- OUTSIDE RECORDS SUMMARY | 2024-04-12 12:21 | External Medical Summary | Summary of Care ---
Author Name Unknown Organization [facility] Address [address] [facility] [place] [address] Phone [phone] Care Team Providers Care Emergency Medicine Physician Assistant Name Role Phone Rina Jaimes PA-C Primary Care Provider [phone] Reason for Referral * Evaluate & Treat - Unlimited Visits (Within 3 days (urgent)) - Pending Review Specialty Diagnoses / Procedures Referred By Rick t Referred To Contact Hematology/Oncology / Hematology Oncology Diagnoses Anemia, unspecified type Rina Jaimes PA-C [address] [place] [address] [address] Referral ID Status Reason Start Date Expiration Date Visits Requested Visits Authorized [id number] Pending Review Specialty Services Required 04/10/[phone] Question Answer Referral Priority Within 3 days (urgent) Where should this appointment be scheduled? [facility] Reason for Referral Anemia Reason for Visit * Reason Onset Date Comments Appointment 04/08/2024 Encounter Details Date Type Department Care Team (Late st Contact Info) Description 04/08/2024 Telephone Family Practice [place] [facility] [place] [address] [place] [address] [place] Fadi PIERRE MD [address] [place] [address] [address] Appointment Allergies Active Allergy Reactions Criticality Noted [...] Encounter - Nicole Gordon OSA - 04/11/2024 7:24 AM EDT Denied scheduling to schedule Hematology, The Hematology department will be reaching out in regardsto getting patient scheduled. * Telephone Encounter - Nicole Gordon OSA [...] Description 04/19/2024 2:00 PM EDT Telemedicine Nephrology, [place] [address] [place] [address] Victoria Boateng MD [address] [place] [address] 04/25/2024 1:00 PM EDT Appointment Radiology, [facility] [address] [place] [address] 04/26/2024 1:15 PM EDT Imaging Radiology [facility] 1st [facility] [address] 07/03/2024 10:00 AM EST Office Visit [facility] [address] [facility] [place] [address] Rina Jaimes PA-C [facility] [address] 08/27/2024 10:20 AM EST Office Visit Hepatology, [facility] 132 [facility] [place] [address] Sari Holder MD [address] [place] [address] 01/13/2025 1:45 PM EDT Imaging Radiology [facility] 132 [facility] [place] [address] 01/16/2025 3:00 PM EDT Office Visit [facility]rology, [place] [facility] [address] Brianna Segovia PA-C 100 [address] [facility] [place] [address] Scheduled Referrals Name Type Priority Associated Diagnoses Orde r Schedule HEMATOLOGY/ONCOLOGY REFERRAL OP Referral Within 3 days (urgent) Anemia, unspecified type Ordered: 04/10/2024 Health Maintenance Due Date Last Done Comments DISCUSS TOBACCO CESSATION (REFER TO SMARTSET #0603) 1972 Lipid Panel 1972 Pneumococcal Vaccine: Pediatrics [...] 2) 2022 COVID-19 Vaccine ( - season) 2024 GFR 10/01/2024 04/03/2024, 06/0 10/2023, 12/26/2023, Additional history exists CKD HGB USE SMARTSET 54605 04/03/202504/03, 01/02/2024, 12/26/2023, Additional history exists CKD PHOS USE SMARTSET 91201 04/03/2025 04/03/2024, 0 10/17/2023 O2 ASSESSMENT COMPLETED [...] Primary documented in this encounter Care Teams Emergency Medicine Physician Assistant Relationship Specialty Start Date End Date [place] Rina SHAQ Carter [address] [place] [address] PCP - General Physician Crown Perforator Operator 04/10/24 documented as of this encounter
--- OUTSIDE RECORDS SUMMARY | 2024-04-12 12:21 | External Medical Summary | Summary of Care ---
Author Name Unknown Organization [facility] Address [address] [facility] [place] [address] Phone [phone] Care Team Providers Care Storage Garage Attendant Name Role Phone Kelsey PIERRE MD, Fadi Barker Primary Care Provider [phone] Reason for Visit * Reason Onset Date Comments Re-Check Medication Administration 04/03/2024 Flu an d/or Pneumo Inj Encounter Details Date Type Department Care Team (Late st Contact Info) Description 04/03/2024 11:40 AM EDT Office Visit Family Practice [facility] [place] [address] [facility] [place] [address] Rina Neil PA-C [address] [place] [address] Need for prophylactic vaccination and inoculation against influenza*; Alcoholic cirrhosis of liver with ascites (HCC); Ascites due to alcoholic cirrhosis (HCC); COPD, mild (HCC); Chronic bilateral low back pain with bilateral sciatica; Paresthesias; Diarrhea, unspecified type Allergies Active Allergy Reactions [...] 04/03/2024 Active Gabapentin 300 MG Oral Capsule (Neurontin)Indica tions:Chronic bilateral low back pain with bilateral sciatica,Paresthe maren Take 1 Capsule by mouth in the [...] for Insomnia. 30 Tablet 1 04/03/2024 Active Fluticasone Furoate 100 MCG/ACT Inhalation Aerosol Powder Breath Activated (ARNUITY ellipta) Inhale 1 Puff by mouth in the morning. 30 Each 5 01/05/2024 04/03/2024 Discontinued (Refill) Gabapentin 300 MG Oral Capsule (Neurontin)Indica tions:Chronic bilateral low back pain with bilateral sciatica,Paresthe maren Take 1 Capsule by mouth in the morning and 1 Capsule at noon and 1 Capsule before bedtime. 90 Capsule 5 02/14/2024 04/03/2024 Discontinued (Refill) Spironolactone 100 MG Oral Tablet (Aldactone) Take 1 Tablet by mouth in the morning. 30 Tablet 11 02/14/2024 04/03/2024 Discontinued (Refill) Pantoprazole Sodium 40 MG Oral Tablet Delayed Release (Protonix) Take 1 Tablet by mouth in the morning. 04/02/2024 04/03/2024 Discontinued (Refill) Torsemide 20 MG Oral Tablet (Demadex) Take 2 Tablets by mouth in the morning and 2 Tablets before bedtime. 03/06/2024 04/03/2024 Discontinued (Refill) documented as of this encounter (statuses as [...] Sign Reading Time Taken Comments Blood Pressure 130/84 04/03/2024 11:42 AM EDT Pulse 84 04/03/2024 11:42 AM EDT Temperature 35.8 C (96.5 F) 04/03/2024 1 1:42 AM EDT Respiratory Rate 18 04/03/2024 11:4 2 AM EDT Oxygen Saturation 99% 04/03/2024 11: 42 AM EDT Inhaled Oxygen Concentration - - Weight 100.8 kg (222 lb 1.9 oz) 024 11:42 AM EDT Height - - Body Mass Index 33.47 02/14/2024 10:47 AM EDT documented in this encounter Progress Notes * Rina Neil PA-C - 04/03/2024 12:19 PM EDT Images from the original note were not included. History of Present Illness Santiago Amador is a 53 year old male that presents for Re-Check and Medication Administration (Flu and/or Pneumo Inj) Patient is a 53 year old male who presents for a follow up. Seeing gastroenterology at [facility]. Dr Lang. Gets paracentesis every 2-3 weeks. First procedure 8L. Feeling better Looses balance. Itchy rash on arms, neck , and face. For 3 weeks. Denies chest pain, sob, palpitations, headaches Some edema of feet Appetite good Sleep diminished Urination/ bowel movements good . Has dirrehea for past week. Limited control Physical Exam Vitals: 04/03/24 1142 Temp: 35.8 C (96.5 F) Pulse: 84 Resp: 18 SpO2: 99% BP: 130/84 BP Readings from Last 3 Encounters: 04/03/24 130/84 02/14/24 110/72 01/16/24 125/85 Wt Readings from Last 3 Encounters: 04/03/24 100.8 kg (222 lb 1.9 oz) 02/14/24 108.9 kg (240 lb) 01/02/24 109.8 kg (242 lb 1.9 oz) General: alert, no distress, well nourished, well developed, cooperative, ill looking, and pale Head: Normocephalic, No masses, lesions, tenderness or [...] excursion normal, lungs clear to auscultation Abdomen: non-tender, obese, no masses or organomegaly, ascites, and distended Extremities: less than 2 second capillary refill, no joint deformities, effusion, or inflammation, no edema, no skin discoloration, no clubbing, no cyanosis Neuro Exam: alert & oriented x 3 with fluent speech, no focal motor/sensory deficits, gait normal I have reviewed the following results: None Assessment and Plan Need for prophylactic vaccination and inoculation against influenza (Primary) - INFLUENZA VAC, TRIVALENT, (IIV3), PF, 0.5 ML (FLUZONE) Alcoholic cirrhosis of liver with ascites (HCC) Ascites due to alcoholic cirrhosis (HCC) COPD, mild (HCC) Chronic bilateral low back pain with bilateral sciatica - Gabapentin 300 MG Oral Capsule (Neurontin); Take 1 Capsule by mouth in the morning and 1 Capsule at noon and 1 Capsule before bedtime. Paresthesias - Gabapentin 300 MG Oral Capsule (Neurontin); Take 1 Capsule by mouth in the morning and 1 Capsule at noon and 1 Capsule before bedtime. Diarrhea, unspecified type - CLOSTRIDIUM DIFFICILE, PCR; Future; Expected date: 04/03/2024 - GASTROINTESTINAL PATHOGEN PANEL, STOOL; Future; Expected date: 04/03/2024 Other orders - Pantoprazole Sodium 40 MG Oral Tablet Delayed Release (Protonix); Take 1 Tablet by mouth in the morning and 1 Tablet in the evening. - Fluticasone Furoate 100 MCG/ACT Inhalation Aerosol Powder Breath Activated (ARNUITY ellipta); Inhale 1 Puff by mouth in the morning. - Spironolactone 100 MG Oral Tablet (Aldactone); Take 1 Tablet by mouth in the morning. - Torsemide 20 MG Oral Tablet (Demadex); Take 2 Tablets by mouth in the morning and 2 Tablets before bedtime. - Doxepin HCl 6 MG Oral Tablet (Silenor); Take 6 mg by mouth at bedtime as needed for Insomnia. Follow Up: Return in about 3 months (around 07/03/2024) for Clinic Visit/for 40 . | For: Clinic Visit/for 40 Wrap-Up Time: I spent a total of 30-39 minutes (exact time 38 mins) on the date of service in preparation, delivery, and documentation of the care provided to Santiago Amador excluding any time spent in the performance of separately billed services. * Michaela Balbuena LPN - 04/03/2024 11:46 AM EDT PRE - ADMINISTRATION DOCUMENTATION Are you experiencing any cold symptoms or fever? No Have you had Guillain-[place]ak[place] Syndrome (an illness that causes paralysis) within the last 6 weeks? No Have you had the flu shot in the past? YES Have you ever had a reaction to the flu shot? No Michaela Balbuena LPN, 04/03/2024 11:46 AM Immunization Administration Documentation Time Out Procedure Performed: Yes Patient Identified (Ask Name/Date of ): Yes Does the patient have a fever greater than 101 degrees today? No Patient allergic to latex? No VFC Stock: No Immunization(s) verified: Yes, Immunization Name: Flu, VIS Sheet(s) given: Yes Verified Side and Site: Yes Verified Shot(s) with Parent(s)/Patient: Yes documented in this encounter Nursing Notes * Michaela Balbuena LPN - 04/03/2024 11:39 AM EDT Santiago Amador presents for 1 month recheck. Medications & HM reviewed. Concerned about weight loss. Also states his skin is thin and anytime he scratched or bumps into something he bleeds documented in this encounter Miscellaneous Notes * Addendum Note - Rina Neil PA-C - 04/03/2024 1:21 PM EDTAddended by: RINA NEIL on: 04/03/2024 01:21 PM Modules accepted: Level of Service documented in this encounter Plan of Treatment Upcoming Encounters Date Type Department Care Team (Late st Contact Info) Description 04/05/2024 1:00 PM EDT Office Visit Hepatology, [facility] [address] [facility] [place] [address] Sari Holder MD [address] [facility] [place] [id number] 04/19/2024 2:00 PM EDT Telemedicine Nephrology, [place] [address] [place] [address] Victoria Boateng MD [address] [place] [address] 07/03/2024 10:00 AM EST Office Visit Family Practice [facility] [address] [place] [address] Rina Neil PA-C [address] [facility] [place] [address] 01/13/2025 1:45 PM EDT Imaging Radiology [facility] [address] [facility] [place] [address] 01/16/2025 3:00 PM EDT Office Visit Urology, [place] [address] [place] [address] Brianna Segovia PA-C [address] [place] [address] Scheduled Orders Name Type Priority Associated Diagnoses Orde r Schedule CLOSTRIDIUM DIFFICILE, PCR Lab Routine Diarrhea, unspecified type Expected: 04/03/2024 (Approximate), Expires: 04/03/2025 GASTROINTESTINAL PATHOGEN PANEL, STOOL Lab Routine Diarrhea, unspecified type Expected: 04/03/2024 (Approximate), Expires: 04/03/2025 Health Maintenance Due Date Last Done Comments DISCUSS TOBACCO CESSATION (REFER TO SMARTSET #6800) 1972 Lipid Panel 1972 Pneumococcal Vaccine: Pediatrics [...] as of this encounter Visit Diagnoses Diagnosis Need for prophylactic vaccination and inoculation against influenza- Primary Alcoholic cirrhosis of liver with ascites (HCC) Alcoholic cirrhosis of liver Ascites due to alcoholic cirrhosis (HCC) COPD, mild (HCC) Chronic airway obstruction, not elsewhere classified Chronic bilateral low back pain with bilateral sciatica Paresthesias Disturbance of skin sensation Diarrhea, unspecified type documented in this encounter Care Teams Storage Garage Attendant Relationship Specialty Start Date End Date Fadi Cole III, MD [address] [facility] [place] [address] PCP - General Family Medicine 10/20/23 documented as of this encounter"
--- OUTSIDE RECORDS SUMMARY | 2024-04-12 12:21 | External Medical Summary | Summary of Care ---
Author Name Unknown Organization [facility] Address [address] [place] [address] Phone [phone] Care Team Providers Care Pigeon Fancier Name Role Phone Rina Neil PA-C Primary Care Provider [phone] Reason for Visit * Reason Onset Date Comments Scheduling 04/10/2024 Encounter Details Date Type Department Care Team (Late st Contact Info) Description 04/10/2024 Telephone Gastroenterology, [facility] [address] [address] Sari Holder MD [address] [place] [address] Scheduling Allergies Active Allergy Reactions Criticality [...] Telephone Encounter - Carmita Collado OSA - 04/10/2024 2:38 PM EDT Patient scheduled for the Paracentesis for 04/25 at [facility] documented in this encounter Plan of Treatment Upcoming Encounters Date Type Department Care Team (Late st Contact Info) Description 04/19/2024 2:00 PM EDT Telemedicine Nephrology, [place] [address] [place] [address] Victoria Boateng MD [address] [place] [address] 04/25/2024 1:00 PM EDT Appointment Radiology, [facility] [address] [place] [address] 04/26/2024 1:15 PM EDT Imaging Radiology [facility] [address]st [address] [address] 07/03/2024 10:00 AM EST Office Visit Family Practice [facility] [address] [facility] [place] [address] Rina Neil PA-C [address] [facility] [address] [place] [address] 08/27/2024 10:20 AM EST Office Visit Hepatology, [address] [place] [address] Sari Holder MD [address] [place] [address] 01/13/2025 1:45 PM EDT Imaging Radiology [address] [facility] [place] [address] 01/16/2025 3:00 PM EDT Office Visit Urology, [place] [address] [place] [address] Brianna Segovia PA-C [address] [place] [address] Health Maintenance Due Date Last Done Comments [...] 2022 COVID-19 Vaccine ( - season) 2024 O2 ASSESSMENT COMPLETED IN [...] filedocumented as of this encounter Care Teams Pigeon Fancier Relationship Specialty Start Date End Date Mary Jooctober SHAQ Carter [address] [place] [address] PCP - General Physician Operator Supply 04/10/24 documented as of this encounter
--- OUTSIDE RECORDS SUMMARY | 2024-04-12 12:21 | External Medical Summary ---
Author Name Unknown Address Unknown Organization K09[facility] [place] [address] Laboratory Report Ordering Provider Test Date Status CONSTANZA JOHNSON 04/03/2024 12:51:21 Final Observation Date Value Abnormality Reference (Units ) Status Phosphate 04/03/2024 12:51:21 3.7 2.5-4.8 (m g/dL) Final Performing Location [facility] [place] [address]
--- OUTSIDE RECORDS SUMMARY | 2024-04-12 12:21 | External Medical Summary | Summary of Care ---
Author Name Unknown Organization [facility] Address [address] [place] [address] Phone [phone] Care Team Providers Care Fire Lieutenant Marine Name Role Phone Kelsey PIERRE MD, Fadi Barker Primary Care Provider [phone] Reason for Referral * Precert (Within 10 days (routine)) - Pending Review Specialty Diagnoses / Procedures Referred By Rick t Referred To Contact [facility] Diagnoses Cirrhosis (HCC) Sari Holder MD [address] [place] [address] Referral ID Status Reason Start Date Expiration Date Visits Requested Visits Authorized [id number] Pending Review Specialty Services Required 04/05/[phone] Question Answer Referral Priority Within 10 days (routine) Where should this appointment be scheduled? [facility] Encounter Details Date Type Department Care Team (Late st Contact Info) Description 04/05/2024 Abstract Transplant Clinic, [place] [address] [place] [address] Nicolle Liu RN Cirrhosis (HCC)* Allergies Active Allergy Reactions Criticality Noted Date [...] Description 04/19/2024 2:00 PM EDT Telemedicine Nephrology, [place] [address] [facility] [place] [id number] Victoria Boateng MD [address] [place] [facility] [id number] 04/26/2024 1:15 PM EDT Imaging Radiology [facility] 1st [facility] [address] 07/03/2024 10:00 AM EST Office [facility] [address] [place] [id number] Rina Neil PA-C [address] [place] [address] 08/27/2024 10:20 AM EST Office Visit Hepatology, [facility] [address] [facility] [place] [address] Sari Holder MD 310 [facility] [place] [address] 01/13/2025 1:45 PM EDT Imaging Radiology [facility] 132 [facility] [place] [address] 01/16/2025 3:00 PM EDT Office Visit Urology, [place] [address] [place] [address] Brianna Segovia PA-C [address] [place] [address] Scheduled Referrals Name Type Priority Associated Diagnoses Orde r Schedule [facility] [employer] REFERRAL OP Referral Within 10 days (routine) Cirrhosis (HCC) Ordered: 04/05/2024 Health Maintenance Due Date [...] of 2) 2022 COVID-19 Vaccine ( - 2022- season) 2024 O2 ASSESSMENT COMPLETED IN PAST [...] as of this encounter Visit Diagnoses Diagnosis Cirrhosis (HCC)- Primary Cirrhosis of liver without mention of alcohol documented in this encounter Care Teams Fire Lieutenant Marine Relationship Specialty Start Date End Date Fadi Cole III, MD [address] [place] [address] PCP - General Family Medicine 10/20/23 documented as of this encounter
--- OUTSIDE RECORDS SUMMARY | 2024-04-12 12:21 | External Medical Summary | Summary of Care ---
Author Name Unknown Organization [facility] Address [address] [facility] [place] [address] Phone [phone] Care Team Providers Care Application Design Engineer Name Role Phone Rina Jaimes PA-C Primary Care Provider Reason for Referral * Evaluate & Treat - Unlimited Visits (Within 3 days (urgent)) - Pending Review Specialty Diagnoses / Procedures Referred By Rick t Referred To Contact Hematology/Oncology / Hematology Oncology Diagnoses Anemia, unspecified type Rina Jaimes PA-C [address] [place] [address] Referral ID Status Reason Start Date Expiration Date Visits Requested Visits Authorized [id number] Pending Review Specialty Services Required 04/10/[phone] Question Answer Referral Priority Within 3 days (urgent) Where should this appointment be scheduled? [facility] Reason for Referral Anemia Reason for Visit * Reason Onset Date Comments Appointment 04/08/2024 Encounter Details Date Type Department Care Team (Late st Contact Info) Description 04/08/2024 Telephone Family Practice [facility] [address] [place] [address] [address] [place] Fadi PIERRE MD [address] [place] [address] [address] Appointment Allergies Active Allergy Reactions Criticality Noted [...] Miscellaneous Notes * Addendum Note - Rina Jaimes PA-C [...] Description 04/19/2024 2:00 PM EDT Telemedicine [facility]phrology, [place] [address] [facility] [address] Victoria Boateng MD [address] [facility] [place] [address] 04/25/2024 1:00 PM EDT Appointment Radiology, [facility] [address] [place] [address] 04/26/2024 1:15 PM EDT Imaging Radiology [address], [place] 132 [facility] [place] [address] 07/03/2024 10:00 AM EST Office Visit Family Practice [facility] [address] [facility] [place] [address] Rina Jaimes PA-C 200 [facility] [place] [address] 08/27/2024 10:20 AM EST Office Visit Hepatology, [facility] 132 [place] [address] Sari Holder MD 310 [facility] [place] [address] 01/13/2025 1:45 PM EDT Imaging Radiology [facility] [address] [place] [address] 01/16/2025 3:00 PM EDT Office Visit Urology, [place] [address] [place] [address] Brianna Segovia PA-C [address] [place] [address] Scheduled Referrals Name Type Priority Associated Diagnoses Orde r Schedule HEMATOLOGY/ONCOLOGY REFERRAL OP Referral Within 3 days (urgent) Anemia, unspecified type Ordered: 04/10/2024 Health Maintenance Due Date Last Done Comments DISCUSS TOBACCO CESSATION (REFER TO SMARTSET #7099) 1972 Lipid Panel 1972 Pneumococcal Vaccine: Pediatrics [...] of 2) 2022 COVID-19 Vaccine (1 - 2023-24 season) 2024 O2 ASSESSMENT COMPLETED IN PAST [...] Primary documented in this encounter Care Teams Application Design Engineer Relationship Specialty Start Date End Date Jolynn October SHAQ Carter [address] [place], [place] [address] PCP - General Physician Talent Development Manager 04/10/24 documented as of this encounter
--- OUTSIDE RECORDS SUMMARY | 2024-04-12 12:21 | External Medical Summary ---
Author Name Unknown Address Unknown Organization K09[facility] [address] [place] [address] Laboratory Report Ordering Provider Test Date Status 04/03/2024 12:51:21 Final Observation Date Value Abnormality Reference (Units ) Status BUN 04/03/2024 12:51:21 42 Above high normal 6-20 (mg/dL) Final Creatinine 04/03/2024 12:51:21 1.8 Above high normal 0.6-1.2 (mg/dL) Final Glomerular filtration rate/1.73 sq M.predicted [Volume Rate/Area] in Serum, Plasma or Blood by Creatinine-based formula (CKD-EPI) 04/03/2024 12:51:21 45 Below low normal >=60 (mL/min) Final eGFR is calculated based on the CKD-EPI 2020 equation. Sodium 04/03/2024 12:51:21 133 Below low normal 135 -146 (mmol/L) Final Potassium 04/03/2024 12:51:21 4.6 3.5-5.1 (m mol/L) Final Cl 04/03/2024 12:51:21 101 98-107 (mm ol/L) Final CO2 04/03/2024 12:51:21 21 Below low normal 22- 32 (mmol/L) Final Anion gap 04/03/2024 12:51:21 11 7-15 (mmol /L) Final Glucose 04/03/2024 12:51:21 115 70-120 (mg /dL) Final Albumin 04/03/2024 12:51:21 2.8 Below low normal 3.8 -5.0 (g/dL) Final AST (Aspartate aminotransferase) 04/03/2024 12:51:21 36 10-50 (U/L) Fin al Alk Phos 04/03/2024 12:51:21 101 35-130 (U/ L) Final Bilirubin, Total 04/03/2024 12:51:21 0.9 <=1 .2 (mg/dL) Final Calcium 04/03/2024 12:51:21 8.2 Below low normal 8.4 -10.2 (mg/dL) Final Protein 04/03/2024 12:51:21 7.2 6.0-8.3 (g /dL) Final ALT (Alanine aminotransferase) 04/03/2024 12:51:21 16 10-50 (U/L) Yohan thomas Performing Location [facility] [address] [place] [address]
--- OUTSIDE RECORDS SUMMARY | 2024-04-12 12:21 | External Medical Summary | Summary of Care ---
Author Name Unknown Organization [facility] Address [address] [facility] [place] [address] Phone [phone] Care Team Providers Care Retail Advertising Account Executive Name Role Phone Kelsey PIERRE MD, Fadi Barker Primary Care Provider [phone] Reason for Visit * Reason Onset Date Comments Re-Check Medication Administration 04/03/2024 Flu an d/or Pneumo Inj Encounter Details Date Type Department Care Team (Late st Contact Info) Description 04/03/2024 11:40 AM EDT Office Visit Family Practice [facility] [place] 200 [facility] [place] [address] Rina Neil PA-C [address] [place] [address] Need for prophylactic vaccination and inoculation against [...] for a follow up. Seeing gastroenterology at [facility]. Dr Lang. Gets paracentesis every 2-3 [...] symptoms or fever? No Have you had Guillain-[place] Syndrome (an illness that causes paralysis) within [...] something he bleeds documented in this encounter Plan of Treatment Upcoming Encounters Date Type Department Care Team (Late st Contact Info) Description 04/05/2024 1:00 PM EDT Office Visit Hepatology, [facility] 132 [facility] [place] [address] Sari Holder MD [address] [place] [address] [place] [address] 04/19/2024 2:00 PM EDT Telemedicine Nephrology, [place] [address] [place] [address] Victoria Boateng MD [address] [place] [address] 07/03/2024 10:00 AM EST [facility] [address] [place] [address] Rina Neil PA-C [address] [place] [address] 01/13/2025 1:45 PM EDT Imaging Radiology [facility] 132 [facility] [place] [address] 01/16/2025 3:00 PM EDT Office Visit Urology, [place] [address] [place] [address] Brianna Segovia PA-C [address] [place], [place] [id number] Scheduled Orders Name Type Priority Associated Diagnoses Orde r Schedule CLOSTRIDIUM DIFFICILE, PCR Lab Routine Diarrhea, unspecified type Expected: 04/03/2024 (Approximate), Expires: 04/03/2025 GASTROINTESTINAL PATHOGEN PANEL, STOOL Lab Routine Diarrhea, unspecified type Expected: 04/03/2024 (Approximate), Expires: 04/03/2025 Health Maintenance Due Date Last Done Comments DISCUSS TOBACCO CESSATION (REFER TO SMARTSET #2257) 1972 Lipid Panel 1972 Pneumococcal Vaccine: Pediatrics [...] type documented in this encounter Care Teams Retail Advertising Account Executive Relationship Specialty Start Date End Date Fadi Cole III, MD 200 [facility] [place] [address] PCP - General Family Medicine 10/20/23 documented as of this encounter"
--- OUTSIDE RECORDS SUMMARY | 2024-04-12 12:21 | External Medical Summary | Summary of Care ---
Author Name Unknown Organization [facility] Address [address] [place] [address] Phone [phone] Care Team Providers Care Rubber Tile Floor Layer Name Role Phone Kelsey PIERRE MD, Fadi Barker Primary Care Provider [phone] Reason for Visit * Reason Onset Date Comments Appointment 04/05/2024 Encounter Details Date Type Department Care Team (Late st Contact Info) Description 04/05/2024 Telephone Hepatology, [facility] [address] [place] [address] Specified, Jammie No Resource [address] [place] [address] Appointment Allergies Active Allergy Reactions Criticality Noted [...] encounter Miscellaneous Notes * Telephone Encounter - Ellen Claudio OSA - 04/05/2024 1:50 PM EDT Pt seen by dr leal today in hepatology and she ordered a transplant surg referral please call pt to schedule appt. documented in this encounter Plan of Treatment Upcoming Encounters Date Type Department Care Team (Late st Contact Info) Description 04/19/2024 2:00 PM EDT Telemedicine Nephrology, [place] [address] [place] [address] Victoria Boateng MD [address] [place] [address] 04/26/2024 1:15 PM EDT Imaging Radiology [facility] [address] [place] [address] 07/03/2024 10:00 AM EST Office Visit Family Practice [facility] [address] [place] [address] Rina Neil PA-C [address] [place] [address] 08/27/2024 10:20 AM EST Office Visit Hepatology, [address] [place] [address] Sari Leal MD [address] [place], [place] [address] [address] 01/13/2025 1:45 PM EDT Imaging Radiology [address] [place] [address] 01/16/2025 3:00 PM EDT Office Visit Urology, [place] [address] [place] [address] Brianna Segovia PA-Armando [address] [place] [address] Health Maintenance Due Date Last Done Comments DISCUSS TOBACCO CESSATION (REFER TO SMARTSET #[id number]) 1972 Lipid Panel 1972 Pneumococcal Vaccine: Pediatrics [...] filedocumented as of this encounter Care Teams Rubber Tile Floor Layer Relationship Specialty Start Date End Date Fadi Cole III, MD [address] [place], [place] [address] PCP - General Family Medicine 10/20/23 documented as of this encounter
--- OUTSIDE RECORDS SUMMARY | 2024-04-12 12:21 | External Medical Summary | Summary of Care ---
Author Name Unknown Organization [facility] Address [address] [facility] [place] [address] Phone [phone] Care Team Providers Care Refrigerator Crater Name Role Phone Rina Neil PA-C Primary Care Provider [phone] Reason for Visit * Reason Onset Date Comments Referral 04/11/2024 SP 3-Day Encounter Details Date Type Department Care Team (Late st Contact Info) Description 04/11/2024 New Patient Triage (HOLISTIC PULSER USE ONLY) Hematology/Oncology [facility] [address] [place] [address] Alba Hernandez CRNP [address] [place] [address] Referral (SP 3-Day) Allergies Active [...] on that he needs to go the [facility] ER. Patient verbalized understanding, stating he [...] for referral?: Anemia Enter order ID here: [id number] Specialty specific documentation: Hematology/Oncology NEW PATIENT - [...] Description 04/19/2024 2:00 PM EDT Telemedicine Nephrology, [place] [address] [place] [address] Victoria Boateng MD [address] [place] [address] 04/25/2024 1:00 PM EDT Appointment Radiology, [address] [address] 04/26/2024 1:15 PM EDT Imaging Radiology [address] [place] [address] 07/03/2024 10:00 AM EST Office Visit Family Practice [facility] 200 [facility] [place] [address] Rina Neil PA-C [address] [facility] [place] [address] 08/27/2024 10:20 AM EST Office Visit Hepatology, [facility] [address] [place] [address] Sari Holder MD [address] [place] [address] 01/13/2025 1:45 PM EDT Imaging Radiology [facility] [address] [place] [address] 01/16/2025 3:00 PM EDT Office Visit Urology, [place] [address] [place] [address] Brianna Segovia PA-C [address] [place] [address] Health Maintenance Due Date Last Done Comments DISCUSS TOBACCO CESSATION (REFER TO SMARTSET #[id number]) 1972 Lipid Panel 1972 Pneumococcal Vaccine: Pediatrics [...] Additional history exists CKD HGB USE SMARTSET 05513 04/03/202504/03, 01/02/2024, 12/26/2023, Additional history exists CKD PHOS USE SMARTSET 09006 04/03/2025 04/03/2024, 0 10/17/2023 O2 ASSESSMENT COMPLETED [...] filedocumented as of this encounter Care Teams Refrigerator Crater Relationship Specialty Start Date End Date JolynnOctober SHAQ Carter [address] [place] [address] PCP - General Physician Mental Health Orderly 04/10/24 documented as of this encounter
--- OUTSIDE RECORDS SUMMARY | 2024-04-12 12:21 | External Medical Summary ---
Author Name Unknown Address Unknown Organization [facility] - [address] [facility] [place] [address] Laboratory Report Ordering Provider Test Date Status CONSTANZA JOHNSON 04/03/2024 12:51:21 Final Observation Date Value Abnormality Reference (Units ) Status Hep B surface Ag 04/03/2024 12:51:21 Negative Neg ative Final Performing Location [facility] - [address] [place] [address]
--- OUTSIDE RECORDS SUMMARY | 2024-04-12 12:21 | External Medical Summary | Summary of Care ---
Author Name Unknown Organization [facility] Address [address] [place] [address] Phone [phone] Care Team Providers Care Engineer Second Assistant Name Role Phone Kelsey PIERRE MD, Fadi Barker Primary Care Provider [phone] Reason for Visit * Reason Onset Date Comments Appointment 04/05/2024 Encounter Details Date Type Department Care Team (Late st Contact Info) Description 04/05/2024 Telephone Hepatology, [facility] [address] [place] [address] Specified, Jammie No Resource [address] [place] [address] Appointment Allergies Active Allergy Reactions [...] Encounter - Ellen Claudio OSA - 04/05/2024 1:45 PM EDT Pt seen dr leal today in office and she ordered an ir paracentesis please call pt to schedule. documented in this encounter Plan of Treatment Upcoming Encounters Date Type Department Care Team (Late st Contact Info) Description 04/19/2024 2:00 PM EDT Telemedicine Nephrology, [place] [address] [place] [address] Victoria Boateng MD [address] [place] [address] 04/26/2024 1:15 PM EDT Imaging Radiology [facility] [address] [place] [address] 07/03/2024 10:00 AM EST Office Visit Family Practice [facility] [address] [place] [address] Rina Neil PA-C [address] [place] [address] 08/27/2024 10:20 AM EST Office Visit Hepatology, [address] [place] [address] Sari Leal MD [address] [place], [place] [address] [address] 01/13/2025 1:45 PM EDT Imaging Radiology [address] [place] [address] 01/16/2025 3:00 PM EDT Office Visit Urology, [place] [address] [place] [address] Brianna Segovia PA-C [address] [place] [address] Health Maintenance Due Date Last Done Comments DISCUSS TOBACCO CESSATION (REFER TO SMARTSET #4267) 1972 Lipid Panel 1972 Pneumococcal Vaccine: Pediatrics [...] filedocumented as of this encounter Care Teams Engineer Second Assistant Relationship Specialty Start Date End Date Fadi Cole III, MD [address] [place] [address] PCP - General Family Medicine 10/20/23 documented as of this encounter
[2024-04-12] MEDS: PANTOPRAZOLE BOLUS/DRIP IV STA (12:23)
[2024-04-12] MEDS: PANTOprazole 40 MG in DEXTROSE 5% MINI-B 100 ML IV SCH (12:23)
--- NOTE | 2024-04-12 13:24 | XRay Report ---
XR chest 1V portable HISTORY: 53 years-old Male post-operative coughing and wheezing COMPARISON: 02/26/2024 TECHNIQUE: AP view of the chest FINDINGS: Heart is upper limits of normal in size. Vascular congestion. Mild subsegmental left basilar and left midlung linear opacities. No pneumothorax. Probable trace pleural effusions. Atherosclerosis of the aorta. Bones appear intact. IMPRESSION: 1. Suggestion of pulmonary vascular congestion. 2. Subsegmental and linear left basilar and left midlung opacities favor atelectasis. Pneumonitis con sidered less likely. ACT 112: Negative or not required by law. The above report was generated using voice recognition software. It may contain grammatical, syntax o r spelling errors. Electronically signed by: Colton Arango M.D. 04/12/2024 1:23 PM
[2024-04-12] MEDS: cefTRIAXone SODIUM 2000MG/50ML D5W IV ONE (13:52)
[2024-04-12] MEDS ORDERED: ACETAMINOPHEN 325 MG TAB PO PRN (15:51)
[2024-04-12] MEDS ORDERED: ONDANSETRON INJ 2 MG/ML 2 ML VIAL IV PRN (15:51)
[2024-04-12] MEDS: MIDODRINE HCL 2.5 MG TAB PO SCH (18:12)
[2024-04-12] MEDS: ACETAMINOPHEN 325 MG TAB PO ONE (19:59)
[2024-04-12] MEDS: TORSEMIDE 20 MG TAB PO SCH (20:00)
[2024-04-12] MEDS: MIDODRINE HCL 2.5 MG TAB PO STA (22:57)
[2024-04-12] MEDS ORDERED: FUROSEMIDE INJ 20 MG/2 ML VIAL IV ONE (23:00)
--- NOTE | 2024-04-13 01:25 | CT Scan Report ---
Exam(s): CT ABDOMEN + PELVIS Without Contrast EXAM: CT Abdomen and Pelvis Without Intravenous Contrast CLINICAL HISTORY: Reason for exam: abdominal distension. TECHNIQUE: Axial computed tomography images of the abdomen and pelvis without intravenous contrast. CTDI is 26.5 mGy and DLP is 1393.07 mGy-cm. Automated exposure control was utilized for the study. A dose lowering technique was utilized adhering to the principles of ALARA. COMPARISON: 02/25/2024. FINDINGS: Exam is limited due to lack of contrast material. Lung bases: There is a small left pleural effusion. There are bibasilar areas of atelectasis. The heart contains coronary artery calcifications. There is a 5 cm fluid collection noted in the retrocardiac region. ABDOMEN: Liver: The liver is enlarged and lobulated. Gallbladder and bile ducts: There are gallstones noted within the gallbladder.. No ductal dilation. Pancreas: The visualized portions of the pancreas, on this noncontrast study, are grossly unremarkable.. Spleen: No splenomegaly. Adrenals: No mass. Kidneys and ureters: No obstructing stones. No hydronephrosis. There is a 3 cm complex cystic structure noted in the right kidney which contains calcifications. Stomach and bowel: There is air and fluid within the stomach. There is air and stool noted in the colon. There are diverticula present on the colon. No significant inflammatory changes are seen.. PELVIS: Appendix: The appendix is not visualized.. Bladder: Urinary bladder is distended. No bladder calculi are seen.. Reproductive: Unremarkable as visualized. ABDOMEN and PELVIS: Intraperitoneal space: No free air. There is a large amount of free fluid in the abdomen and pelvis.. Bones/joints: There are degenerative changes in the spine. Soft tissues: There is increased density noted within the soft tissues. Vasculature: There are atherosclerotic changes. No abdominal aortic aneurysm. Lymph nodes: No enlarged lymph nodes. IMPRESSION: There is a large amount of ascites present. The liver is enlarged and lobulated which may be related to cirrhotic changes. Probable anasarca. There is a small left pleural effusion with bibasilar areas of atelectasis. Again noted is a 3 cm complex cystic structure in the right kidney. Diverticulosis. See discussion above Electronically signed by: Horace Maki MD 04/13/24 01:24 AM
[2024-04-13 03:46] LABS: Albumin Globulin Ratio 0.6 (0.9-2); Albumin Level 2.1 gm/dl (3.4-5.0); BUN Creatinine Ratio 25.3 (10-20); Bilirubin,Total 2.2 mg/dl (0.2-1.0); Calcium 7.7 mg/dl (8.6-10.3); Creatinine Clr Calc Pharmacy 44.2 ml/min; Est GFR (African American) 36.9 ml/min; Est GFR (Non-African American) 31.9 ml/min; Globulin 3.6 gm/dl (2.5-4.0); Potassium 4.2 mmol/L (3.5-5.1); Total Protein 5.7 gm/dl (6.0-8.3)
[2024-04-13 04:09] LABS: Hematocrit (blood only) 20.7 % (42.0-52.0); Hemoglobin 6.7 g/dl (14.0-18.0); Mean Corpuscular Hemoglobin 30.7 pg (25.0-34.0); Mean Corpuscular Hgb Conc 32.4 g/dL (32.0-36.0); Mean Platelet Volume 9.5 fL (9.4-12.4); Platelet Count 175 K/uL (130-400); RDW Coefficient of Variation 19.5 % (11.5-14.5); RDW Standard Deviation 66.6 fL (36.4-46.3); Red Blood Count 2.18 M/uL (4.70-6.10); White Blood Count 6.61 K/ul (4.8-10.8)
[2024-04-13] MEDS: MAGNESIUM CHLORIDE W/CALCIUM 64MG DELAYED REL TAB PO SCH (07:45)
[2024-04-13] MEDS: SPIRONOLACTONE 25 MG TAB PO SCH (07:45)
[2024-04-13] MEDS: FOLIC ACID 1 MG TAB PO SCH (07:45)
[2024-04-13 08:06] LABS: Hematocrit (blood only) 22.1 % (42.0-52.0); Hemoglobin 7.2 g/dl (14.0-18.0)
--- NOTE | 2024-04-13 10:01 | Gastrointestinal Consultation ---
Date of Consultation April 13, 2024 Assessment & Plan (1) Symptomatic anemia: He has significant anemia without visible bleeding. He has had two EGD's in the past few months which have fairly different interpretations. I don't think repeat EGD is needed now. I do think he needs colonoscopy but he would prefer to do this as an outpatient if he has to do it. I will discuss with him as his hospitalization progresses and can set it up if conditions warrant or he changes his mind. I think it can be done electively as he didn't seem to be having visible bleeding according to his history. He probably could use a therapeutic paracentesis but it is always better to manage ascites medically as an outpatient. History of Present Illness Reason for Consultation: anemia Attending Physician: Adelaida Rubio MD History of Present Illness 53 year old man with known alcohol related liver disease who was admitted to the hospital after his PCP sent him because of anemia. His hemoglobin was 4.5 whereas it normally runs in the 8's. He had an EGD by Dr. Lang last week that showed esophagitis and some gastritis with biopsies showing aburto's esophagus but normal stomach. EGD done several weeks ago suggested portal hypertensive gastropathy and gastric antral vascular ectasia. He tells me that since his procedure last week he has not been bleeding. His bowel movements are normal to him but they are dark because he says he "lives on peptobismol". He denies abdominal pain other than the discomfort of having ascites. He has never had a colonoscopy and "doesn't want one". Allergies Allergy/AdvReac Type Severity Reaction Status Date / Time Penicillins Allergy Unknown pt unsure Verified 04/02/24 12:32 of reaction Home Medications Medication Instructions Recorded Confirmed Type folic acid 1 mg tablet 1 mg PO DAILY #30 tabs 08/15/23 04/12/24 Rx magnesium chloride 64 mg 64 mg PO BID #60 tabs 03/06/24 04/12/24 Rx (magnesium chloride) tablet,delayed release (Mag 64) torsemide 20 mg tablet 40 mg (2 x 20 mg) PO BID #60 tabs 03/06/24 04/12/24 Rx midodrine 5 mg tablet 5 mg PO TID #90 tabs 03/07/24 04/12/24 Rx pantoprazole 40 mg tablet,delayed 40 mg PO BID 3 months #180 tabs 03/15/24 04/12/24 Rx release fluticasone furoate 100 1 inh inhalation QAM 04/12/24 04/12/24 History mcg/actuation blister powder for inhalation (Arnuity Ellipta) gabapentin 300 mg capsule 300 mg PO TID 04/12/24 04/12/24 History spironolactone 25 mg tablet 100 mg PO QAM 04/12/24 04/12/24 History Patient History Medical History Hypervolemia Symptomatic anemia hospitalized [facility] 02/26/24 for issues related to this Poor historian main details obtained from [facility] med record Alcoholic cirrhosis of liver with ascites hospitalized [facility] 02/26/24 for issues related to this Metabolic encephalopathy hospitalized [facility] 02/26/24 for issues related to this PAF (paroxysmal atrial fibrillation) pt denies; hospitalized [facility] 02/26/24, evaluated by tae garcia per cardio consult Esophagitis History of severe sepsis hospitalized 02/26/24, [facility] 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 per med record; hospitalized [facility] 02/26/24 for issues related to this Orthostatic hypotension "he thinks" COPD (chronic obstructive pulmonary disease) History of pneumonia 07/2023, 02/26/24, hospitalized [facility] 02/26/24 for issues related to this Chronic kidney disease, stage 4 (severe) S/P abdominal paracentesis 03/21/2024, [facility] Current every day smoker Surgical History History of esophagogastroduodenoscopy (EGD) S/P cataract extraction right eye/left History of tonsillectomy History of hernia surgery infancy Family History Mother Stroke Diabetes Other Colorectal cancer Heart disease Social History Smoking Status: Current every day smoker Tobacco Type: Cigarettes Cigarettes Per Day: 4; Second Hand Exposure: Yes; Do You Dip or Chew Tobacco: No; Tobacco Cessation Education Requested by Patient: No Hx Alcohol Use: Yes Alcohol type: wine Hx Substance Use: No Preferred Language: [place] Communication Ability: Effective Sandwich Artist Required: No Beliefs That Will Affect Care: None Current Living Situation: Other Current Living Situation Comment: room mate apt Other Information That Helps Us Care for You: No Feels Safe at Home: Yes Safety Concerns: Feels Safe At This Time Assistive Devices: None Review of Systems Review of Systems: All systems reviewed & are unremarkable except as noted in HPI & below Physical Exam Constitutional: + ill appearing and + thin Eyes: sclerae not anicteric Neck: trachea midline, no thyromegaly Respiratory: normal respiratory effort, lungs clear to auscultation Cardiovascular: RRR, no murmur, no edema Gastrointestinal (Abdomen): Inspection/Auscultation: + abdomen distended Percussion/Palpation: + abdomen tender Results & Data Vital Signs (Past 12 Hours) Vital Signs Temp Pulse Pulse Resp BP BP Pulse Ox 04/13/24 08:17 36.3 C L 56 L 19 110/71 96 04/13/24 05:00 108/72 04/13/24 02:33 36.4 C L 54 L 15 99/65 L 95 04/13/24 01:36 36.1 C L 54 L 15 112/66 96 04/13/24 00:36 36.5 C 53 L 14 94/59 L 98 04/13/24 00:06 36.3 C L 52 L 15 91/61 L 96 04/12/24 23:53 36.2 C L 53 L 15 97/65 L 98 04/12/24 23:51 36.2 C L 53 L 15 97/65 L 98 04/12/24 23:32 36.5 C 56 L 14 94/70 L 97 04/12/24 23:00 36.5 C 58 L 21 98/77 L 98 04/12/24 22:52 36.5 C 57 L 14 90/53 L 96 04/12/24 22:15 36.9 C 57 L 18 91/55 L 94 04/12/24 22:15 36.5 C 59 L 21 98/77 L 95 O2 Del Method 04/13/24 08:17 Room Air 04/13/24 05:00 04/13/24 02:33 04/13/24 01:36 04/13/24 00:36 04/13/24 00:06 04/12/24 23:53 04/12/24 23:51 04/12/24 23:32 04/12/24 23:00 04/12/24 22:52 Room Air 04/12/24 22:15 04/12/24 22:15 Laboratory Results 04/13/24 04/13/24 04/12/24 Range/Units 07:38 03:06 18:17 WBC 6.61 (4.8-10.8) K/ul RBC 2.18 L (4.70-6.10) M/uL Hgb 7.2 L 6.7 L* 6.0 L* (14.0-18.0) g/dl Hct 22.1 L 20.7 L* 19.0 L* (42.0-52.0) % MCV 95.0 D (80.0-100.0) fL MCH 30.7 (25.0-34.0) pg MCHC 32.4 (32.0-36.0) g/dL RDW Std Deviation 66.6 H (36.4-46.3) fL RDW Coeff of Ham 19.5 H (11.5-14.5) % Plt Count 175 (130-400) K/uL MPV 9.5 (9.4-12.4) fL PT (9.0-12.0) Seconds INR (0.9-1.1) APTT (21-31) Seconds PTT Ratio Sodium 129 L (136-145) mmol/L Potassium 4.2 (3.5-5.1) mmol/L Chloride 104 (98-107) mmol/L Carbon Dioxide 20 L (21-32) mmol/L Anion Gap 5 (3-11) BUN 58 H (6-23) mg/dl Creatinine 2.29 H (0.6-1.4) mg/dl Est Cr Clr Drug Dosing 44.2 ml/min Est GFR ( Amer) 36.9 ml/min Est GFR (Non-Af Amer) 31.9 ml/min BUN/Creatinine Ratio 25.3 H (10-20) Glucose 89 (70-99(Fasting)) mg/dl Lactate 1.1 (0.4-2.0) mmol/L Calcium 7.7 L (8.6-10.3) mg/dl Total Bilirubin 2.2 H D (0.2-1.0) mg/dl Direct Bilirubin (0-0.2) mg/dl AST 24 (13-39) U/L ALT 11 (7-52) U/L Alkaline Phosphatase 46 (34-104) U/L Ammonia (18-72) umol/L Total Protein 5.7 L (6.0-8.3) gm/dl Albumin 2.1 L (3.4-5.0) gm/dl Globulin 3.6 (2.5-4.0) gm/dl Albumin/Globulin Ratio 0.6 L (0.9-2) Lipase (11-82) U/L Blood Type Antibody Screen Crossmatch 04/12/24 04/12/24 Range/Units 11:35 10:24 WBC 8.32 (4.8-10.8) K/ul RBC 1.42 L (4.70-6.10) M/uL Hgb 4.5 L* (14.0-18.0) g/dl Hct 15.1 L* (42.0-52.0) % MCV 106.3 H (80.0-100.0) fL MCH 31.7 (25.0-34.0) pg MCHC 29.8 L (32.0-36.0) g/dL RDW Std Deviation 66.6 H (36.4-46.3) fL RDW Coeff of Ham 17.3 H (11.5-14.5) % Plt Count 228 (130-400) K/uL MPV 9.7 (9.4-12.4) fL PT 11.5 (9.0-12.0) Seconds INR 1.1 (0.9-1.1) APTT 23 (21-31) Seconds PTT Ratio 0.9 Sodium 127 L (136-145) mmol/L Potassium 4.5 (3.5-5.1) mmol/L Chloride 101 (98-107) mmol/L Carbon Dioxide 19 L (21-32) mmol/L Anion Gap 7 (3-11) BUN 63 H (6-23) mg/dl Creatinine 2.49 H (0.6-1.4) mg/dl Est Cr Clr Drug Dosing 40.6 ml/min Est GFR ( Amer) 33.4 ml/min Est GFR (Non-Af Amer) 28.8 ml/min BUN/Creatinine Ratio 25.3 H (10-20) Glucose 110 H (70-99(Fasting)) mg/dl Lactate (0.4-2.0) mmol/L Calcium 8.0 L (8.6-10.3) mg/dl Total Bilirubin 0.7 (0.2-1.0) mg/dl Direct Bilirubin 0.3 H (0-0.2) mg/dl AST 34 (13-39) U/L ALT 15 (7-52) U/L Alkaline Phosphatase 87 (34-104) U/L Ammonia 46.0 (18-72) umol/L Total Protein 6.8 (6.0-8.3) gm/dl Albumin 2.5 L (3.4-5.0) gm/dl Globulin (2.5-4.0) gm/dl Albumin/Globulin Ratio (0.9-2) Lipase 153 H (11-82) U/L Blood Type A Negative Antibody Screen NEGATIVE Crossmatch See Detail Diagnostic Findings Chest X-Ray 04/12/24 12:32 XR chest 1V portable HISTORY: 53 years-old Male post-operative coughing and wheezing COMPARISON: 02/26/2024 TECHNIQUE: AP view of the chest FINDINGS: Heart is upper limits of normal in size. Vascular congestion. Mild subsegmental left basilar and left midlung linear opacities. No pneumothorax. Probable trace pleural effusions. Atherosclerosis of the aorta. Bones appear intact. IMPRESSION: 1. Suggestion of pulmonary vascular congestion. 2. Subsegmental and linear left basilar and left midlung opacities favor atelectasis. Pneumonitis considered less likely. ACT 112: Negative or not required by law. The above report was generated using voice recognition software. It may contain grammatical, syntax or spelling errors. Electronically signed by: Colton Arango M.D. 04/12/2024 1:23 PM Abdomen/Pelvis CT 04/12/24 22:43 Exam(s): CT ABDOMEN + PELVIS Without Contrast EXAM: CT Abdomen and Pelvis Without Intravenous Contrast CLINICAL HISTORY: Reason for exam: abdominal distension. TECHNIQUE: Axial computed tomography images of the abdomen and pelvis without intravenous contrast. CTDI is 26.5 mGy and DLP is 1393.07 mGy-cm. Automated exposure control was utilized for the study. A dose lowering technique was utilized adhering to the principles of ALARA. COMPARISON: 02/25/2024. FINDINGS: Exam is limited due to lack of contrast material. Lung bases: There is a small left pleural effusion. There are bibasilar areas of atelectasis. The heart contains coronary artery calcifications. There is a 5 cm fluid collection noted in the retrocardiac region. ABDOMEN: Liver: The liver is enlarged and lobulated. Gallbladder and bile ducts: There are gallstones noted within the gallbladder.. No ductal dilation. Pancreas: The visualized portions of the pancreas, on this noncontrast study, are grossly unremarkable.. Spleen: No splenomegaly. Adrenals: No mass. Kidneys and ureters: No obstructing stones. No hydronephrosis. There is a 3 cm complex cystic structure noted in the right kidney which contains calcifications. Stomach and bowel: There is air and fluid within the stomach. There is air and stool noted in the colon. There are diverticula present on the colon. No significant inflammatory changes are seen.. PELVIS: Appendix: The appendix is not visualized.. Bladder: Urinary bladder is distended. No bladder calculi are seen.. Reproductive: Unremarkable as visualized. ABDOMEN and PELVIS: Intraperitoneal space: No free air. There is a large amount of free fluid in the abdomen and pelvis.. Bones/joints: There are degenerative changes in the spine. Soft tissues: There is increased density noted within the soft tissues. Vasculature: There are atherosclerotic changes. No abdominal aortic aneurysm. Lymph nodes: No enlarged lymph nodes. IMPRESSION: There is a large amount of ascites present. The liver is enlarged and lobulated which may be related to cirrhotic changes. Probable anasarca. There is a small left pleural effusion with bibasilar areas of atelectasis. Again noted is a 3 cm complex cystic structure in the right kidney. Diverticulosis. See discussion above Electronically signed by: Horace Maki MD 04/13/24 01:24 AM
--- NOTE | 2024-04-13 10:32 | Nephrology Consultation ---
Date of Consultation April 13, 2024 Assessment & Plan (1) GRACIELA (acute kidney injury): GRACIELA due to acute blood loss anemia and decompensated cirrhosis. Cr 2.3 today. he had GRACIELA in January/February with cr in the 2's but improved to 1.6. sodium is 129 today. -Recommend another unit of blood. -Continue current dose of torsemide -Hold aldactone due to hyponatremia. we can restart later. -Daily BMP Avoid contrasted studies (2) Alcoholic cirrhosis of liver with ascites: he has abdominal distension and needs therapeutic paracentesis (3) UGIB (upper gastrointestinal bleed): s/p unit of blood. He needs another unit of blood. GI following. Continue PPIs History of Present Illness Reason for Consultation: GRACIELA, decompensated cirrhosis Requesting Physician: Adelaida Rubio MD Attending Physician: Adelaida Rubio MD History of Present Illness This is 53 year old male with decompesated alcoholic cirrhosis, recurrent GRACIELA who was admitted with acute blood loss anemia with Hb of 4.5 on PCp labs. Patient reported dizziness for the past couple of weeka. he also may have had melena stools but thought the color was due to what he was eating. He has abdominal distension and leg swelling. No SOB. he takes diuretics as prescribed. He denied NSAID use. Admission labs notable for Hb 4.5, cr 2.49 up from 1.6 last month and hyponatremia with sodium of 127. Sodium is up to 129 today and cr down to 2.3. he is making urine. Hb is 7.2 today Allergies Allergy/AdvReac Type Severity Reaction Status Date / Time Penicillins Allergy Unknown pt unsure Verified 04/02/24 12:32 of reaction Home Medications Medication Instructions Recorded Confirmed Type folic acid 1 mg tablet 1 mg PO DAILY #30 tabs 08/15/23 04/12/24 Rx magnesium chloride 64 mg 64 mg PO BID #60 tabs 03/06/24 04/12/24 Rx (magnesium chloride) tablet,delayed release (Mag 64) torsemide 20 mg tablet 40 mg (2 x 20 mg) PO BID #60 tabs 03/06/24 04/12/24 Rx midodrine 5 mg tablet 5 mg PO TID #90 tabs 03/07/24 04/12/24 Rx pantoprazole 40 mg tablet,delayed 40 mg PO BID 3 months #180 tabs 03/15/24 04/12/24 Rx release fluticasone furoate 100 1 inh inhalation QAM 04/12/24 04/12/24 History mcg/actuation blister powder for inhalation (Arnuity Ellipta) gabapentin 300 mg capsule 300 mg PO TID 04/12/24 04/12/24 History spironolactone 25 mg tablet 100 mg PO QAM 04/12/24 04/12/24 History Patient History Medical History Hypervolemia Symptomatic anemia hospitalized [facility] 02/26/24 for issues related to this Poor historian main details obtained from [place] med record Alcoholic cirrhosis of liver with ascites hospitalized [facility] 02/26/24 for issues related to this Metabolic encephalopathy hospitalized [facility] 02/26/24 for issues related to this PAF (paroxysmal atrial fibrillation) pt denies; hospitalized [facility] 02/26/24, evaluated by tae garcia per cardio consult Esophagitis History of severe sepsis hospitalized 02/26/24, [facility] 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 per med record; hospitalized [facility] 02/26/24 for issues related to this Orthostatic hypotension "he thinks" COPD (chronic obstructive pulmonary disease) History of pneumonia 07/2023, 02/26/24, hospitalized [facility] 02/26/24 for issues related to this Chronic kidney disease, stage 4 (severe) S/P abdominal paracentesis 03/21/2024, [facility] Current every day smoker Surgical History History of esophagogastroduodenoscopy (EGD) S/P cataract extraction right eye/left History of tonsillectomy History of hernia surgery infancy Family History Mother Stroke Diabetes Other Colorectal cancer Heart disease Social History Smoking Status: Current every day smoker Tobacco Type: Cigarettes Cigarettes Per Day: 4; Second Hand Exposure: Yes; Do You Dip or Chew Tobacco: No; Tobacco Cessation Education Requested by Patient: No Hx Alcohol Use: Yes Alcohol type: wine Hx Substance Use: No Preferred Language: Trinidadian Communication Ability: Effective Leak Inspector Required: No Beliefs That Will Affect Care: None Current Living Situation: Other Current Living Situation Comment: room mate apt Other Information That Helps Us Care for You: No Feels Safe at Home: Yes Safety Concerns: Feels Safe At This Time Assistive Devices: None Review of Systems 2 Review of Systems: All other systems were reviewed and negative except as noted in HPI Physical Exam 2 Physical Exam: General exam: Appears comfortable, no acute distress HEENT: Pupils are equal and reactive to light Neck: No JVD, neck is supple trachea is midline Respiratory system: Clear breath sounds bilaterally. Gastrointestinal: Abdomen is soft, distended, non tender, bowel sounds are present CVS: Regular rate and rhythm. No murmurs, rubs or gallops Musculoskeletal: No joint or muscle tenderness Extremities: Non tender, 2+ edema, peripheral pulses are present Neuro: Oriented, no tremors, no focal neurological deficits Skin: No rashes Results & Data Vital Signs (Past 12 Hours) Vital Signs Temp Pulse Pulse Resp BP BP Pulse Ox 04/13/24 08:17 36.3 C L 56 L 19 110/71 96 04/13/24 05:00 108/72 04/13/24 02:33 36.4 C L 54 L 15 99/65 L 95 04/13/24 01:36 36.1 C L 54 L 15 112/66 96 04/13/24 00:36 36.5 C 53 L 14 94/59 L 98 04/13/24 00:06 36.3 C L 52 L 15 91/61 L 96 04/12/24 23:53 36.2 C L 53 L 15 97/65 L 98 04/12/24 23:51 36.2 C L 53 L 15 97/65 L 98 04/12/24 23:32 36.5 C 56 L 14 94/70 L 97 04/12/24 23:00 36.5 C 58 L 21 98/77 L 98 04/12/24 22:52 36.5 C 57 L 14 90/53 L 96 O2 Del Method 04/13/24 08:17 Room Air 04/13/24 05:00 04/13/24 02:33 04/13/24 01:36 04/13/24 00:36 04/13/24 00:06 04/12/24 23:53 04/12/24 23:51 04/12/24 23:32 04/12/24 23:00 04/12/24 22:52 Room Air Laboratory Results 04/13/24 03:06 04/12/24 04/13/24 10:24 03:06 WBC 8.32 6.61 RBC 1.42 L 2.18 L MCV 106.3 H 95.0 D MCH 31.7 30.7 MCHC 29.8 L 32.4 RDW Std Deviation 66.6 H 66.6 H RDW Coeff of Ham 17.3 H 19.5 H Plt Count 228 175 MPV 9.7 9.5 Albumin 2.5 L 2.1 L
--- NOTE | 2024-04-13 12:29 | Hospitalist Progress Note ---
Date of Service April 13, 2024 Assessment & Plan (1) Symptomatic anemia: (2) GRACIELA (acute kidney injury): (3) Alcoholic cirrhosis of liver with ascites: (4) Abdominal ascites: Plan #Acute on chronic normocytic anemia Due to UGIB in setting of cirrhosis Hb was 4.5 on presentation S/P 4 PRBC Hb is 7.2 today Monitor H/H Recent EGD from 02/29/24 showed LA grade B reflux esophagitis without bleeding, Gastric antral vascular ectasia without bleeding s/p APC, erythematous duode nopathy, portal hypertensive gastropathy, mucosal nodule in esophagus GI evaluation noted EGD not recommended at this time. Patient prefers to have colonoscopy outpatient Will monitor clinical status/improvement to determine if scopes will be needed inpatient IV PPI BID Start on clears for now and monitor #Decompensated Alcoholic cirrhosis with ascites No Hepatic encephalopathy at this time Start lactulose po to ensure 3 BM per day Continue rifaximin started Counseled patient on need to stay away from alcohol IR paracentesis ordered. No IR availability over the weekend so will be on monday Continue Ceftriaxone for SBP prophylaxis for now #Hyponatremia, hypervolemic #Acute on chronic CKD 3 Cloth Folder Hand consulted Continue home torsemide Aldactone on hold for now per Nephro #Smoking Counseled regarding smoking cessation Nicotine patch Code status: FULL I spent a total of 55 minutes coordinating, documenting and providing care for this patient excluding time spent in performance of separately billed services Admission and Anticipated Discharge Date Admission Date: April 12, 2024 Subjective Patient seen and examined Reports feeling better Reports some dry cough, abd distention Denied abd pain but stated they can be uncomfortable with the distention Denied melena, hematochezia, hematuria, hematemesis, hemoptysis Denied fever, chills, nausea, vomiting Physical Exam Constitutional: no acute distress Chronically ill looking Eyes: PERRL and EOM intact bilaterally ENMT: external ear and nose normal, oropharynx normal Respiratory: normal respiratory effort, lungs clear to auscultation Cardiovascular: Rate/Rhythm: regular rhythm and + bradycardic Gastrointestinal (Abdomen): Soft, markedly distended, nontender, normal bowel sounds Musculoskeletal: +Pedal edema Neurologic: PERRL, EOMI, accommodation nl, no face palsy, no dysarthria Psychiatric: A+Ox3, euthymic affect Results & Data Results & Data Vital Signs (Past 12 Hours) Vital Signs Temp Pulse Pulse Resp BP BP Pulse Ox 04/13/24 12:00 36.8 C 56 L 20 131/83 97 04/13/24 08:17 36.3 C L 56 L 19 110/71 96 04/13/24 08:00 55 L 04/13/24 05:00 108/72 04/13/24 02:33 36.4 C L 54 L 15 99/65 L 95 04/13/24 01:36 36.1 C L 54 L 15 112/66 96 04/13/24 00:36 36.5 C 53 L 14 94/59 L 98 O2 Del Method 04/13/24 12:00 Room Air 04/13/24 08:17 Room Air 04/13/24 08:00 04/13/24 05:00 04/13/24 02:33 04/13/24 01:36 04/13/24 00:36 Laboratory Results Abnormal lab results 04/12/24 04/12/24 04/13/24 Range/Units 10:24 18:17 03:06 RBC 2.18 L (4.70-6.10) M/uL Hgb 6.0 L* 6.7 L* (14.0-18.0) g/dl Hct 19.0 L* 20.7 L* (42.0-52.0) % RDW Std Deviation 66.6 H (36.4-46.3) fL RDW Coeff of Ham 19.5 H (11.5-14.5) % Sodium 129 L (136-145) mmol/L Carbon Dioxide 20 L (21-32) mmol/L BUN 58 H (6-23) mg/dl Creatinine 2.29 H (0.6-1.4) mg/dl BUN/Creatinine Ratio 25.3 H (10-20) Calcium 7.7 L (8.6-10.3) mg/dl Total Bilirubin 2.2 H D (0.2-1.0) mg/dl Total Protein 5.7 L (6.0-8.3) gm/dl Albumin 2.1 L (3.4-5.0) gm/dl Albumin/Globulin Ratio 0.6 L (0.9-2) Crossmatch See Detail 04/13/24 Range/Units 07:38 RBC (4.70-6.10) M/uL Hgb 7.2 L (14.0-18.0) g/dl Hct 22.1 L (42.0-52.0) % RDW Std Deviation (36.4-46.3) fL RDW Coeff of Ham (11.5-14.5) % Sodium (136-145) mmol/L Carbon Dioxide (21-32) mmol/L BUN (6-23) mg/dl Creatinine (0.6-1.4) mg/dl BUN/Creatinine Ratio (10-20) Calcium (8.6-10.3) mg/dl Total Bilirubin (0.2-1.0) mg/dl Total Protein (6.0-8.3) gm/dl Albumin (3.4-5.0) gm/dl Albumin/Globulin Ratio (0.9-2) Crossmatch
[2024-04-13] MEDS: cefTRIAXone SODIUM 2,000 MG/50 ML BAG IV SCH (12:54)
[2024-04-13] MEDS: PANTOprazole 40 MG in SYRINGE 0 ML IV SCH (12:54)
[2024-04-13] MEDS: NICOTINE 21 MG/24 HR TDSY TD SCH (14:27)
[2024-04-13] MEDS: LACTULOSE SYRUP 20 GM/30 ML UDC PO SCH (14:57)
[2024-04-13 16:47] LABS: Hematocrit (blood only) 24.5 % (42.0-52.0); Hemoglobin 7.8 g/dl (14.0-18.0); Mean Corpuscular Hemoglobin 30.7 pg (25.0-34.0); Mean Corpuscular Hgb Conc 31.8 g/dL (32.0-36.0); Mean Corpuscular Volume 96.5 fL (80.0-100.0); Mean Platelet Volume 9.4 fL (9.4-12.4); Platelet Count 191 K/uL (130-400); RDW Coefficient of Variation 19.8 % (11.5-14.5); Red Blood Count 2.54 M/uL (4.70-6.10); White Blood Count 6.76 K/ul (4.8-10.8)
[2024-04-14 06:48] LABS: Hematocrit (blood only) 23.7 % (42.0-52.0); Hemoglobin 7.8 g/dl (14.0-18.0); Mean Corpuscular Hgb Conc 32.9 g/dL (32.0-36.0); Mean Platelet Volume 9.6 fL (9.4-12.4); Platelet Count 203 K/uL (130-400); RDW Coefficient of Variation 18.5 % (11.5-14.5); RDW Standard Deviation 63.9 fL (36.4-46.3); Red Blood Count 2.52 M/uL (4.70-6.10); White Blood Count 7.12 K/ul (4.8-10.8)
[2024-04-14 07:14] LABS: Albumin Globulin Ratio 0.6 (0.9-2); Albumin Level 2.3 gm/dl (3.4-5.0); BUN Creatinine Ratio 25.4 (10-20); Bilirubin,Total 1.3 mg/dl (0.2-1.0); Calcium 8.1 mg/dl (8.6-10.3); Creatinine Clr Calc Pharmacy 48.7 ml/min; Est GFR (African American) 42.2 ml/min; Est GFR (Non-African American) 36.4 ml/min; Magnesium 1.9 mg/dl (1.7-2.4); Phosphorus 4.1 mg/dl (2.5-4.9); Potassium 4.4 mmol/L (3.5-5.1); Total Protein 6.3 gm/dl (6.0-8.3)
[2024-04-14 07:38] LABS: INR 1.2 (0.9-1.1); Prothrombin Time 12.4 Seconds (9.0-12.0)
--- NOTE | 2024-04-14 08:45 | Gastroenterology Progress Note ---
Date of Service April 14, 2024 Assessment & Plan (1) Symptomatic anemia: Plan: He had an EGD last week by Dr. Lang which other than esophagitis was unremarkable. He does not need another EGD. He does need a colonoscopy but he still wants to do that as an outpatient. From anemia standpoint he can go home to arrange these as an outpatient. If he stays till tomorrow for paracentesis primary GI team can decide if they want to talk him into inpatient colonoscopy Admission and Anticipated Discharge Date Admission Date: April 12, 2024 Subjective Feels better. Hemoglobin over 7. No complaints. Tells me he is to have paracentesis tomorrow and "somebody is planning to do an endoscopy" Physical Exam Physical Exam: Pleasant and cooperative Constitutional: + ill appearing Results & Data Vital Signs (Past 12 Hours) Vital Signs Temp Pulse Pulse Resp BP BP Pulse Ox 04/14/24 07:57 36.3 C L 63 16 86/62 L 97 04/14/24 03:12 36.6 C 65 18 104/65 97 04/13/24 23:11 36.7 C 65 16 117/74 98 04/13/24 22:01 65 O2 Del Method 04/14/24 07:57 Room Air 04/14/24 03:12 Room Air 04/13/24 23:11 Room Air 04/13/24 22:01
--- NOTE | 2024-04-14 09:58 | Nephrology Progress Note ---
Date of Service April 14, 2024 Assessment & Plan (1) GRACIELA (acute kidney injury): Plan: GRACIELA due to acute blood loss anemia and decompensated cirrhosis. Cr 2 today. he had GRACIELA in with cr in the 2's but improved to 1.6. sodium is 129 today. -Continue current dose of torsemide -Hold aldactone due to hyponatremia. we can restart as outpt. -Daily BMP Avoid contrasted studies From renal standpoint, he can be discharged on current regimen, fluid limit of 1.2 litres daily (2) Alcoholic cirrhosis of liver with ascites: Plan: he has abdominal distension and needs therapeutic paracentesis. BP is on the lower side. Increase midodrine to 10mg tid (3) UGIB (upper gastrointestinal bleed): Plan: s/p unit of blood. Hb7.8 today Continue PPIs Admission and Anticipated Discharge Date Admission Date: April 12, 2024 Subjective No nausea or vomiting. Has Diarrhea. Complains of leg swelling. Overall feels better. Review of Systems 2 Review of Systems: All other systems were reviewed and negative except as noted in HPI Physical Exam 2 Physical Exam: General exam: Appears comfortable, no acute distress HEENT: Pupils are equal and reactive to light Neck: No JVD, neck is supple trachea is midline Respiratory system: Clear breath sounds bilaterally. Gastrointestinal: Abdomen is soft, distended, non tender, bowel sounds are present CVS: Regular rate and rhythm. No murmurs, rubs or gallops Musculoskeletal: No joint or muscle tenderness Extremities: Non tender, 2+ edema, peripheral pulses are present Neuro: Oriented, no tremors, no focal neurological deficits Skin: No rashes Results & Data Vital Signs (Past 12 Hours) Vital Signs Temp Pulse Pulse Resp BP BP Pulse Ox 04/14/24 07:57 36.3 C L 63 16 86/62 L 97 04/14/24 03:12 36.6 C 65 18 104/65 97 04/13/24 23:11 36.7 C 65 16 117/74 98 04/13/24 22:01 65 O2 Del Method 04/14/24 07:57 Room Air 04/14/24 03:12 Room Air 04/13/24 23:11 Room Air 04/13/24 22:01 Laboratory Results 04/14/24 05:50 04/13/24 04/14/24 16:22 05:50 WBC 6.76 7.12 RBC 2.54 L 2.52 L MCV 96.5 94.0 MCH 30.7 31.0 MCHC 31.8 L 32.9 RDW Std Deviation 69.0 H 63.9 H RDW Coeff of Ham 19.8 H 18.5 H Plt Count 191 203 MPV 9.4 9.6 Phosphorus 4.1 Albumin 2.3 L
[2024-04-14] MEDS: MIDODRINE HCL 10 MG TAB PO SCH (12:59)
--- NOTE | 2024-04-14 13:00 | Hospitalist Progress Note ---
Date of Service April 14, 2024 Assessment & Plan (1) Symptomatic anemia: (2) GRACIELA (acute kidney injury): (3) Alcoholic cirrhosis of liver with ascites: (4) Abdominal ascites: Plan #Acute on chronic normocytic anemia Due to UGIB in setting of cirrhosis Hb was 4.5 on presentation S/P 4 PRBC Hb is stable in 7s so far Monitor H/H Recent EGD from 02/29/24 showed LA grade B reflux esophagitis without bleeding, Gastric antral vascular ectasia without bleeding s/p APC, erythematous duodenopathy, portal hypertensive gastropathy, mucosal nodule in esophagus GI evaluation noted EGD not recommended at this time. Patient prefers to have colonoscopy outpatient IV PPI BID #Decompensated Alcoholic cirrhosis with ascites No Hepatic encephalopathy at this time Started on lactulose po to ensure 3 BM per day Continue rifaximin started Counseled patient on need to stay away from alcohol Plan for IR paracentesis tomorrow Continue Ceftriaxone for SBP prophylaxis for now #Hyponatremia, hypervolemic #Acute on chronic CKD 3 [employer] Inspector consulted Continue home torsemide Aldactone on hold for now per Nephro. Resume on discharge Continue 1.2L fluid restriction #Smoking Counseled regarding smoking cessation Nicotine patch Code status: FULL I spent a total of 45 minutes coordinating, documenting and providing care for this patient excluding time spent in performance of separately billed services Admission and Anticipated Discharge Date Admission Date: April 12, 2024 Subjective Patient seen and examined Reports feeling better Reports cough, abd distention Reports some SOB due to abd distention Denied melena, hematochezia, hematuria, hematemesis, hemoptysis Physical Exam Constitutional: no acute distress Eyes: PERRL and EOM intact bilaterally ENMT: external ear and nose normal, oropharynx normal Respiratory: normal respiratory effort, lungs clear to auscultation Cardiovascular: Rate/Rhythm: regular rate and regular rhythm Gastrointestinal (Abdomen): Soft, markedly distended, nontender, normal bowel sounds Musculoskeletal: +pedal edema Neurologic: PERRL, EOMI, accommodation nl, no face palsy, no dysarthria Psychiatric: A+Ox3, euthymic affect Results & Data Results & Data Vital Signs (Past 12 Hours) Vital Signs Temp Pulse Resp BP BP Pulse Ox O2 Del Method 04/14/24 11:39 36.3 C L 64 18 133/87 98 Room Air 04/14/24 07:57 36.3 C L 63 16 86/62 L 97 Room Air 04/14/24 07:45 Room Air 04/14/24 03:12 36.6 C 65 18 104/65 97 Room Air Laboratory Results Abnormal lab results 04/13/24 04/14/24 Range/Units 16:22 05:50 RBC 2.54 L 2.52 L (4.70-6.10) M/uL Hgb 7.8 L 7.8 L (14.0-18.0) g/dl Hct 24.5 L 23.7 L (42.0-52.0) % MCHC 31.8 L (32.0-36.0) g/dL RDW Std Deviation 69.0 H 63.9 H (36.4-46.3) fL RDW Coeff of Ham 19.8 H 18.5 H (11.5-14.5) % PT 12.4 H (9.0-12.0) Seconds INR 1.2 H (0.9-1.1) Sodium 129 L (136-145) mmol/L BUN 52 H (6-23) mg/dl Creatinine 2.05 H (0.6-1.4) mg/dl BUN/Creatinine Ratio 25.4 H (10-20) Glucose 103 H (70-99(Fasting)) mg/dl Calcium 8.1 L (8.6-10.3) mg/dl Total Bilirubin 1.3 H (0.2-1.0) mg/dl Albumin 2.3 L (3.4-5.0) gm/dl Albumin/Globulin Ratio 0.6 L (0.9-2)
[2024-04-15 06:54] LABS: Hematocrit (blood only) 22.5 % (42.0-52.0); Hemoglobin 7.1 g/dl (14.0-18.0); Mean Corpuscular Hemoglobin 30.3 pg (25.0-34.0); Mean Corpuscular Hgb Conc 31.6 g/dL (32.0-36.0); Mean Corpuscular Volume 96.2 fL (80.0-100.0); Mean Platelet Volume 9.5 fL (9.4-12.4); Platelet Count 182 K/uL (130-400); RDW Coefficient of Variation 18.6 % (11.5-14.5); RDW Standard Deviation 65.5 fL (36.4-46.3); Red Blood Count 2.34 M/uL (4.70-6.10); White Blood Count 6.53 K/ul (4.8-10.8)
[2024-04-15 07:17] LABS: Albumin Globulin Ratio 0.6 (0.9-2); Albumin Level 2.2 gm/dl (3.4-5.0); BUN Creatinine Ratio 24.6 (10-20); Bilirubin,Total 0.7 mg/dl (0.2-1.0); Calcium 7.7 mg/dl (8.6-10.3); Creatinine Clr Calc Pharmacy 52.2 ml/min; Est GFR (Non-African American) 39.7 ml/min; Globulin 3.7 gm/dl (2.5-4.0); Magnesium 1.8 mg/dl (1.7-2.4); Phosphorus 3.8 mg/dl (2.5-4.9); Potassium 4.1 mmol/L (3.5-5.1); Total Protein 5.9 gm/dl (6.0-8.3)
[2024-04-15 07:36] LABS: INR 1.2 (0.9-1.1); Prothrombin Time 12.9 Seconds (9.0-12.0)
--- NOTE | 2024-04-15 10:10 | Communication Note ---
Date of Service: April 15, 2024 Patient is a 53 yo male with alcoholic cirrhosis hospitalized due to symptomatic anemia at the request of his PCP. Patient has been evaluated by GI during this admission for this issue. He has had 2 recent EGDs, with the last being on 04/02/24 without significant findings. He has declined inpatient colonoscopy. H/H 7.1/22.5 at present. No overt GI bleeding. Due to his portal hypertension, he has required frequent paracentesis and is undergoing a paracentesis today. Nephrology involved as well for diuretic management. He will need to follow-up with his representative phlebotomy services Dr. Sari Holder. He has been contacting the [facility] office repeatedly asking for things ordered by his representative phlebotomy services, not realizing that we are not the same providers, so it is important that he be provided with Dr. Holder's contact information at discharge.
--- NOTE | 2024-04-15 10:26 | Nephrology Progress Note ---
Date of Service April 15, 2024 Assessment & Plan (1) GRACIELA (acute kidney injury): Plan: resolved stage one GRACIELA on Advanced CKD 3B w/ actual baseline 1.9 > GRACIELA due to acute blood loss anemia and decompensated cirrhosis. Cr essentially unchanged at 1.9 today, which is his baseline creatinine based on OP labs since November 2023. he had GRACIELA in January/February with cr in the high 2's. sodium is down slightly to 128 today. -Continue current dose of torsemide >>agree w/ albumin after/periprocedural for paracentesis -Hold aldactone due to hyponatremia. we can restart as outpt. -Daily BMP -Avoid IV contrast studies unless life/limb-saving From renal standpoint, he can be discharged on current regimen, fluid limit of 1.2 liters daily Will sign off. NEPHRO D/C RECS -bmp, hgb at pcp f/u visit -PCP versus hepatology to manage OP paracenteses -d/c on current torsemide dose -hold aldactone at d/c until we know BMP stable after d/c -continue / educate on 1.2 L fluid limit daily as well as <2 gm daily sodium diet -needs OP hospital d/[facility] appt [facility] w/ Dr Sutherland at [facility] 2-3 wks after d/c w/ bmp, uacm, ACR, pth, urine electrolytes, serum and urine osms, cystatin C to be ordered by neph nurse and drawn no more than 72 hrs before neph office visit (2) Alcoholic cirrhosis of liver with ascites: Plan: he has abdominal distension and is today for therapeutic paracentesis. BP is on the lower side. -continue Increased midodrine at 10mg tid (3) UGIB (upper gastrointestinal bleed): Plan: s/p unit of blood. Hb7.1 today Continue PPIs Admission and Anticipated Discharge Date Admission Date: April 12, 2024 Subjective follows w/ [facility] hepatology; 2 recent EGD unremarkable, most recenly 93; refusing IP colonoscopy this admission. s/p paracentesis today >> pt reports was for 9L; and getting albumin currently; states he's for d/c today; wondering who will arrange OP paracenteses. feeling well > denies abd or chest pain, no sob or cough; tolerating lunch, no sob, no LE edema; no new/worrisome voiding sx.. Review of Systems 2 Review of Systems: All systems reviewed & are unremarkable except as noted in Subjective Physical Exam 2 Constitutional: well developed, + thin, cooperative and + malnourished; no acute distress ENMT: Mouth: + dry oral mucous membranes Respiratory: normal respiratory effort Auscultation: + diminished lung sounds Cardiovascular: Rate/Rhythm: regular rate and regular rhythm Heart Sounds: + murmur Extremities: no edema Gastrointestinal (Abdomen): Inspection/Auscultation: normal bowel sounds P ercussion/Palpation: abdomen soft and + ascites; abdomen nontender Musculoskeletal: Extremities: strength 5/5 throughout Neurologic: dc, fluent speech, no tremor Results & Data Vital Signs (Past 12 Hours) Vital Signs Temp Pulse Resp BP BP Pulse Ox O2 Del Method 04/15/24 07:53 36.5 C 65 18 96/62 L 96 Room Air 04/15/24 04:33 36.6 C 66 17 121/76 97 Room Air 04/14/24 23:47 36.7 C 71 16 106/66 96 Room Air Laboratory Results 04/15/24 06:07 04/15/24 06:07
[2024-04-15] MEDS ORDERED: ALBUMIN 25% 12.5 GM/50 ML VIAL IV SCH (10:30)
[2024-04-15 11:20] VITALS: RESP 18
[2024-04-15 11:23] VITALS: TEMP 97.9; O2SAT 100
[2024-04-15] MEDS: ALBUMIN 25% 25 GM/100 ML VIAL IV SCH (11:25)
[2024-04-15 11:40] LABS: Albumin Peritoneal Fluid < 1.5 gm/dl
[2024-04-15 11:55] LABS: Total Protein Peritoneal Fluid < 3.0 gm/dl
[2024-04-15 12:14] LABS: Appearance Peritoneal Fluid Clear; Basophils, Fluid 1 %; Color Peritoneal Fluid Yellow; Lymphocytes, Fluid 44 %; Mono,Macrophage,Mesothelial 55 %; Neutrophils, Fluid 0 %; RBC Peritoneal Fluid Auto < 2000 /uL; WBC Peritoneal Fluid Auto 83 /ul (0-300)
[2024-04-15 12:59] VITALS: PULSE 74
--- NOTE | 2024-04-15 13:56 | Ultrasound Report ---
ULTRASOUND-GUIDED PARACENTESIS CLINICAL HISTORY: Ascites PROCEDURE: Procedure and risks were explained. Informed consent was obtained. A final timeout was com pleted. The abdomen was prepped and draped in sterile fashion. 1% buffered lidocaine was utilized for skin anesthesia. Utilizing ultrasound guidance, a 5 Thai safety centesis catheter was advanced into the right lower quadrant pocket of ascites. Ultrasound images were obtained. A total of 9.3 L of ascites fluid was re moved with 1 L sent to the lab. The catheter was removed and Band-Aid applied. The patient tolerated the procedure well. Vital signs will be monitored postprocedure. IMPRESSION: Ultrasound-guided paracentesis as above. Performed, dictated, and signed by Colten Rivas PA-C; to be co-signed by Dr. Colton Arango. Electronically signed by: Colton Arango M.D. 04/15/2024 2:16 PM
[2024-04-15 15:19] VITALS: BP 117/60
--- NOTE | 2024-04-15 16:41 | Discharge Summary ---
Date of Service April 15, 2024 Admission HPI Per Admitting Provider 53M pmh EtOH cirrhosis last drink 1 mo ago, COPD, renal cyst, CKD, chronic anemia who presented to the ED on the request of his PCP due to anemia. On my exam patient endorses intermittent vertigo, no other major symptoms. Is accompanied by his room mate who states he has also been increasingly forgetful recently. Also with abd distention despite recent paracentesis. States he has been compliant with his medications and his last drink was 1 month ago. Some SOB due to abdominal distention. No melena in the last 3 months. Admission Exam Per Admitting Provider Gastrointestinal (Abdomen): Inspection/Auscultation: + abdomen distended Percussion/Palpation: + ascites Psychiatric: A+Ox3, euthymic affect Principal Diagnosis Symptomatic anemia Hyponatremia Decompensated cirrhosis with ascites Acute on chronic kidney disease stage 3 Discharge Exam Constitutional no acute distress Eyes PERRL and EOM intact bilaterally ENMT external ear and nose normal, oropharynx normal Respiratory normal respiratory effort, lungs clear to auscultation Cardiovascular Rate/Rhythm: regular rate and regular rhythm Gastrointestinal (Abdomen) Soft, abd distention significantly improved with paracentesis, nontender, normal bowel sounds Musculoskeletal +pedal edema Neurologic PERRL, EOMI, accommodation nl, no face palsy, no dysarthria Psychiatric A+Ox3, euthymic affect Discharge Data Allergies Allergy/AdvReac Type Severity Reaction Status Date / Time Penicillins Allergy Unknown pt unsure Verified 04/02/24 12:32 of reaction Consultations 04/12/24 11:26 ED Decision to Admit Stat 04/12/24 15:51 Consult Gastroenterology Routine 04/13/24 08:03 Consult Nephrology Routine Ordered Studies 04/12/24 22:43 CT Abd and Pelvis [CT abd pelvis wo con] Urgent 04/15/24 IR paracentesis abd w/img US Urgent Hospital Course (1) Symptomatic anemia: (2) GRACIELA (acute kidney injury): (3) Alcoholic cirrhosis of liver with ascites: (4) Abdominal ascites: Plan #Acute on chronic normocytic anemia Due to Possible Upper GI bleed in setting of cirrhosis Hb was 4.5 on presentation S/P 4 PRBC Hb is stable in 7s so far. 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 Patient declined endoscopies inpatient and prefer to do them outpatient with his Relay Technician Was managed with IV PPI Continue home PPI BID Patient needs to follow up with his Gastroenterology outpatient #Decompensated Alcoholic cirrhosis with ascites No Hepatic encephalopathy at this time Started on lactulose po to ensure 3 BM per day Counseled patient on need to stay away from alcohol S/P IR Paracentesis with 9.3 L drained today Received IV albumin after paracentesis He stated he gets scheduled paracentesis with IR by his Relay Technician #Hyponatremia, hypervolemic #Acute on chronic CKD 3 River Boat Captain evaluated Continue home torsemide Patient is to continue to hold aldactone for now until follow up with Nephrology in office with labs. River Boat Captain Dr Fontaine to make arrangements Continue 1.2L fluid restriction #Smoking Counseled regarding smoking cessation Total Time Total Time Spent Total Time Spent (In Minutes): 35 Total Time Includes: Examination of the Patient, Discharge Planning, Medication Reconciliation and Communication With Other Providers Discharge Plan Discharge Items Patient Disposition: Home - Self-Care Reason For Visit: UGIB, ANEMIA Discharge Diagnosis: Symptomatic anemia Hyponatremia Decompensated cirrhosis with ascites Acute on chronic kidney disease stage 3 Activity: Resume your previous activity Non-emergency contact: Primary Care Provider, Relay Technician and River Boat Captain Call non-emergency contact if: you have any medication questions Follow-up/Referrals: Rina Neil PA-C [Primary Care Provider] - 04/18/24 2:40 pm Alessandra Sutherland MD [Physician] - (Call for follow up appt) Diet: Heart Healthy and Low Sodium (2gm) Fluids: 1200ml (5 cups) Addtl Attending Provider Instructions: Mr Amador You were admitted and managed for the above diagnoses You required 4 units of blood You declined endoscopy in the hospital and will prefer that with your Relay Technician. You had paracentesis with 9.3L of fluid removed. Please ensure you follow up with your Relay Technician for continued managem ent. Continue pantoprazole 40mg twice a day. Please take lactulose to ensure 3 bowel movement per day as we discussed. Due to your low sodium and acute kidney injury, the River Boat Captain (kidney doctor) recommends you stop your spironolactone for now until they see you in the office. Please continue your torsemide. Please adhere to fluid restriction of 1.2Liters per day. Please ensure you follow up with Nephrology office at [facility] in 2-3 weeks. You will need to do some blood tests which the office can help you arrange prior to your visit. Please ensure followup with your Family Doctor. It was a pleasure taking care of you. Pending Studies at Discharge: No Stand-Alone Forms: [facility], Smoking Cessation Medications and DC Order Prescriptions: New lactulose 20 gram/30 mL Solution 20 g PO BID Qty: 3000 0RF Rx Instructions: Goal of 3 bowel movements per day. Can hold further doses afterwards Continued pantoprazole 40 mg tablet,delayed release (DR/EC) 40 mg PO BID 90 Days Qty: 180 3RF folic acid 1 mg tablet 1 mg PO DAILY Qty: 30 0RF torsemide 20 mg Tablet 40 mg PO BID Qty: 60 0RF Rx Instructions: pt didnt seem too sure of this medication magnesium chloride [Mag 64] 64 mg Tablet,Delayed Release (Dr/Ec) 64 mg PO BID Qty: 60 0RF gabapentin 300 mg capsule 300 mg PO TID Arnuity Ellipta 100 mcg/actuation blister with device 1 inh INHALATION QAM Changed midodrine 5 mg tablet 10 mg PO TID Qty: 180 0RF Rx Instructions: do not give last dose of day after 6PM or within 4 hrs of bedtime Discontinued spironolactone 25 mg tablet 100 mg PO QAM Discharge Orders: Discharge Order (Routine); Ordered 04/15/24 Ordered By: Adelaida Muniz/Other Patient Handouts: Kidney Disease Fluid Intake, Kidney Disease Limiting Sodium Admission Data Admit Date/Time: 04/12/24 11:39 Attending Provider: Adelaida Rubio I. Admit Provider: Ranjith Shafer Primary Care Provider: Rina Neil Other Providers: Ranjith Shafer; Lamont Gallegos; Alessandra Sutherland Other Interventions: Discharge Summary Assessment (RN) Last Done: 04/15/24 15:18
== END 2024-04-15 16:19 | disposition home or self-care (01) | DRG 378 ==
LOC: ED 10:08 → EDINP 11:39 → SUATTDRO 11:39 → 2E 14:27

== ENCOUNTER 2024-04-26 12:15 | Inpatient (IN) ==
--- NOTE | 2024-04-26 13:11 | XRay Report ---
XR chest 1V portable CLINICAL HISTORY: Abdominal Pain TECHNIQUE: Single frontal radiograph of the chest was obtained. Comparison: Comparison is made to chest radiograph 04/12/2024 FINDINGS: No lines and tubes are seen. Calcified aortic knob is seen. The lungs are clear. No evidence of pleur al effusion or pneumothorax. IMPRESSION: No acute chest disease. ACT 112: Negative or not required by law. Electronically signed by: Carlos Bales M.D. 04/26/2024 1:10 PM
[2024-04-26 13:19] LABS: Mean Platelet Volume 9.8 fL (9.4-12.4); Platelet Count 205 K/uL (130-400); White Blood Count 10.06 K/ul (4.8-10.8)
[2024-04-26 13:20] LABS: Basophils # (auto) 0.08 K/uL (0.00-0.20); Basophils % (auto) 0.8 %; Eosinophils # (auto) 0.88 K/uL (0.00-0.50); Eosinophils % (auto) 8.7 %; Hemoglobin 6.5 g/dl (14.0-18.0); Immature Granulocytes # (auto) 0.14 K/uL (0.01-0.20); Immature Granulocytes % (auto) 1.4 %; Lymphocytes # (auto) 1.74 K/uL (1.20-3.40); Lymphocytes % (auto) 17.3 %; Mean Corpuscular Hemoglobin 31.7 pg (25.0-34.0); Mean Corpuscular Hgb Conc 32.5 g/dL (32.0-36.0); Mean Corpuscular Volume 97.6 fL (80.0-100.0); Monocytes # (auto) 0.92 K/uL (0.11-0.59); Monocytes % (auto) 9.1 %; Neutrophils % (auto) 62.7 %; RDW Coefficient of Variation 17.6 % (11.5-14.5); RDW Standard Deviation 62.4 fL (36.4-46.3); Red Blood Count 2.05 M/uL (4.70-6.10)
[2024-04-26 13:34] LABS: Polychromasia 1+
[2024-04-26 13:45] LABS: Alanine Aminotransferase 14 U/L (7-52); Albumin Globulin Ratio 0.6 (0.9-2); Albumin Level 2.8 gm/dl (3.4-5.0); Alkaline Phosphatase 63 U/L (34-104); Anion Gap 8 (3-11); Aspartate Aminotransferase 33 U/L (13-39); BUN Creatinine Ratio 28.4 (10-20); Bilirubin,Total 0.8 mg/dl (0.2-1.0); Blood Urea Nitrogen 71 mg/dl (6-23); Calcium 8.5 mg/dl (8.6-10.3); Carbon Dioxide 23 mmol/L (21-32); Chloride 95 mmol/L (98-107); Est GFR (African American) 33.2 ml/min; Est GFR (Non-African American) 28.7 ml/min; Globulin 4.6 gm/dl (2.5-4.0); Glucose 105 mg/dl (70-99(Fasting)); Lipase 93 U/L (11-82); Potassium 4.1 mmol/L (3.5-5.1); Sodium 126 mmol/L (136-145); Total Protein 7.4 gm/dl (6.0-8.3)
[2024-04-26] MEDS ORDERED: SODIUM CHLORIDE 0.9% 250 ML IV PRN (13:55)
--- NOTE | 2024-04-26 15:41 | History & Physical Report ---
Date of Service April 26, 2024 Assessment & Plan (1) Abdominal distension: Plan #Abdominal distention likely 2/2 decompensated cirrhosis with similar recent admission #Hypervolemic hyponatremia #GRACIELA on CKD3 -IR paracentesis when able, likely not until Monday -tele admission -continue home diuretic -nephro consult for history tenuous volume status & GRACIELA on CKD -GS evaluation for abdominal drain in the setting of frequent inpatient admissions for paracentesis #Symptomatic anemia <7 with weakness potentially 2/2 UGIB -No bloody stools/melena noted -Recent EGD from 02/29/24 showed LA grade B reflux esophagitis without bleeding, 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 Patient is a frequent flier to this hospital, was discharged 10 days ago. During that admission had paracentesis via IR removing 9L. GI saw him and he declined EGD, and stated that he would schedule an outpatient EGD with his GI doctor, which he has been unable to complete. On this presentation patient complains of significantly increased abdominal distention, similar to his previous admission. No other complaints including melena, other signs of bleeding, diarrhea constipation. Allergies Allergy/AdvReac Type Severity Reaction Status Date / Time Penicillins Allergy Unknown pt unsure Verified 04/02/24 12:32 of reaction Home Medications Medication Instructions Recorded Confirmed Type folic acid 1 mg tablet 1 mg PO DAILY #30 tabs 08/15/23 04/12/24 Rx magnesium chloride 64 mg 64 mg PO BID #60 tabs 03/06/24 04/12/24 Rx (magnesium chloride) tablet,delayed release (Mag 64) torsemide 20 mg tablet 40 mg (2 x 20 mg) PO BID #60 tabs 03/06/24 04/12/24 Rx pantoprazole 40 mg tablet,delayed 40 mg PO BID 3 months #180 tabs 03/15/24 04/12/24 Rx release fluticasone furoate 100 1 inh inhalation QAM 04/12/24 04/12/24 History mcg/actuation blister powder for inhalation (Arnuity Ellipta) gabapentin 300 mg capsule 300 mg PO TID 04/12/24 04/12/24 History lactulose 20 gram/30 mL oral 20 g (30 mL) PO BID #3,000 mL 04/15/24 Rx solution midodrine 5 mg tablet 10 mg (2 x 5 mg) PO TID #180 tabs 04/15/24 Rx Past Med/Surg History Problem List (Updated 04/26/24 @ 15:44 by Ranjith Shafer MD) Abdominal distension GRACIELA (acute kidney injury) UGIB (upper gastrointestinal bleed) GAVE (gastric antral vascular ectasia) Esophagitis PAF (paroxysmal atrial fibrillation) Positive blood culture CKD (chronic kidney disease) stage 4, GFR 15-29 ml/min Severe sepsis Symptomatic anemia (Acute) Metabolic encephalopathy (Acute) Alcoholic cirrhosis of liver with ascites (Acute) Abdominal ascites (Acute) Blunt trauma of nose Blunt trauma of face Hypoxia (Acute) Pancytopenia (Acute) Influenza A (Acute) Tobacco use Hypomagnesemia (Acute) Hyponatremia (Acute) Hypokalemia (Acute) Multifocal pneumonia (Acute) Sepsis (Acute) Encounter for pre-operative examination Alcohol use (Acute) Fall (Acute) Medical History Hypervolemia Symptomatic anemia hospitalized [facility] 02/26/24 for issues related to this Poor historian main details obtained from [place] med record Alcoholic cirrhosis of liver with ascites hospitalized [facility] 02/26/24 for issues related to this Metabolic encephalopathy hospitalized [facility] 02/26/24 for issues related to this PAF (paroxysmal atrial fibrillation) pt denies; hospitalized [facility] 02/26/24, evaluated by tae garcia per cardio consult Esophagitis History of severe sepsis hospitalized 02/26/24, [facility] 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 per med record; hospitalized [facility] 02/26/24 for issues related to this Orthostatic hypotension "he thinks" COPD (chronic obstructive pulmonary disease) History of pneumonia 07/2023, 02/26/24, hospitalized [facility] 02/26/24 for issues related to this Chronic kidney disease, stage 4 (severe) S/P abdominal paracentesis 03/21/2024, [facility] Current every day smoker Surgical History History of esophagogastroduodenoscopy (EGD) S/P cataract extraction right eye/left History of tonsillectomy History of hernia surgery infancy Family History Mother Stroke Diabetes Other Colorectal cancer Heart disease Social History Smoking Status: Current every day smoker Tobacco Type: Cigarettes Cigarettes Per Day: 4; Second Hand Exposure: Yes; Do You Dip or Chew Tobacco: No; Hx Alcohol Use: Yes Alcohol type: wine Hx Substance Use: No Preferred Language: Filipino Communication Ability: Effective Insulation Hoseman Required: No Beliefs That Will Affect Care: None Current Living Situation: Other Current Living Situation Comment: room mate apt Feels Safe at Home: Yes Assistive Devices: None Review of Systems Constitutional: + body aches and + malaise; no sweats Gastrointestinal: as per Subjective / HPI, + abdominal pain and + bloating Physical Exam Constitutional: WD/WN, vitals as above Gastrointestinal (Abdomen): Inspection/Auscultation: + abdomen distended Percussion/Palpation: + abdomen tender Results & Data Results & Data Vital Signs (Past 12 Hours) Vital Signs Temp Pulse Pulse Resp BP BP Pulse Ox 04/26/24 15:24 65 19 122/80 98 04/26/24 13:04 63 04/26/24 13:03 62 20 128/83 04/26/24 12:27 36.6 C 72 18 114/73 99 O2 Del Method 04/26/24 15:24 Room Air 04/26/24 13:04 04/26/24 13:03 Room Air 04/26/24 12:27 Room Air Laboratory Results Abnormal lab results 04/26/24 04/26/24 Range/Units 12:52 14:42 RBC 2.05 L (4.70-6.10) M/uL Hgb 6.5 L* (14.0-18.0) g/dl Hct 20.0 L* (42.0-52.0) % RDW Std Deviation 62.4 H (36.4-46.3) fL RDW Coeff of Ham 17.6 H (11.5-14.5) % [place] # (Auto) 0.92 H (0.11-0.59) K/uL Eos # (Auto) 0.88 H (0.00-0.50) K/uL Sodium 126 L (136-145) mmol/L Chloride 95 L (98-107) mmol/L BUN 71 H (6-23) mg/dl Creatinine 2.50 H (0.6-1.4) mg/dl BUN/Creatinine Ratio 28.4 H (10-20) Glucose 105 H (70-99(Fasting)) mg/dl Calcium 8.5 L (8.6-10.3) mg/dl Albumin 2.8 L (3.4-5.0) gm/dl Globulin 4.6 H (2.5-4.0) gm/dl Albumin/Globulin Ratio 0.6 L (0.9-2) Lipase 93 H (11-82) U/L Antibody Screen POSITIVE A Crossmatch See Detail Diagnostic Findings Chest X-Ray 04/26/24 12:31 XR chest 1V portable CLINICAL HISTORY: Abdominal Pain TECHNIQUE: Single frontal radiograph of the chest was obtained. Comparison: Comparison is made to chest radiograph 04/12/2024 FINDINGS: No lines and tubes are seen. Calcified aortic knob is seen. The lungs are clear. No evidence of pleural effusion or pneumothorax. IMPRESSION: No acute chest disease. ACT 112: Negative or not required by law. Electronically signed by: Carlos Bales M.D. 04/26/2024 1:10 PM Code Status & VTE Plan VTE Prophylaxis Plan VTE Prophylaxis will be ordered: No Reason for no VTE drug order: Treatment not tolerated
[2024-04-26 16:02] LABS: Appearance Urine Clear (Clear); Bilirubin Urine Negative (Negative); Blood Urine Negative (Negative); Color Urine Yellow; Glucose Urine UA Negative (Negative); Ketones Urine Negative (Negative); Leukocyte Esterase Urine Negative (Negative); Nitrite Urine Negative (Negative); Protein Urine Negative (Negative); Specific Gravity Urine 1.008 (1.000-1.030); Urobilinogen Urine Negative (Negative); pH Urine 5.5 (4.5-7.5)
[2024-04-26 16:52] LABS: Prothrombin Time 11.1 Seconds (9.0-12.0)
[2024-04-26] MEDS ORDERED: ACETAMINOPHEN 325 MG TAB PO PRN (17:38)
[2024-04-26] MEDS: MoRPHine SULFATE 2 MG/ML CARP IV PRN (17:56)
[2024-04-26] MEDS: MIDODRINE HCL 10 MG TAB PO SCH (18:45)
--- NOTE | 2024-04-26 18:56 | Emergency Department Note ---
Impression & Plan SOB (shortness of breath), Abdominal ascites, Anemia ED Provider Note NAME: INDERJIT LO AGE: 53 SEX: Male INFORMANT: Patient ED PROVIDER(S): Fadi Callahan MD CHIEF COMPLAINT: Shortness of breath, ascites PLAN: Disposition: Admitted Outpatient prescription management: none Referral: None MEDICAL DECISION MAKING: Patient presented because of shortness of breath and recurrent abdominal ascites. Vital signs are stable. Patient had an unremarkable chest x-ray. EKG was unremarkable. Patient's blood work revealed a severe anemia which has worsened slightly than prior. Patient has chronic renal insufficiency. Physical examination reveals a fluid wave consistent with ascites. Patient will likely need therapeutic paracentesis and consideration for transfusion again. [facility] Case discussed and diagnostics were reviewed. Patient was evaluated in the ER and admitted for further management. Care/management discussed with: life manager Level of care consideration(s): After review of the information above and other included data, I feel the patient requires escalation of care to admission Triage Nursing notes: reviewed and agree them. Vital Signs: reviewed and remarkable for no significant abnormalities Additional History obtained from: none Chronic Medical/Social Conditions affecting care: Alcoholic cirrhosis with ascites Prior/ Outside/ External records reviewed: none Differential Diagnosis: Functional compression from ascites, anemia, reactive airway disease, pneumonia, pneumothorax, COPD, CHF, infections, cardiac ischemia, pulmonary embolism, musculoskeletal, gastrointestinal, as well as other pathologies. Diagnostics, independently interpreted by me: EC Lead ECG performed and revealed Normal sinus rhythm at 68, normal Vernon, QRS normal. No elevation or depression. No PACs or PVCs Cardiac Monitoring: Cardiac monitoring ordered by me: The patient was placed on continuous cardiac monitoring and observed. It revealed a normal sinus rhythm at 64 beats per minute without ectopy or evidence of dysrhythmia. Medical decision rules: none Imaging studies: Chest x-ray. Findings: A chest x-ray was performed and revealed no pneumothorax, effusion, infiltrate, pulmonary edema, free air under the diaphragm, or wide mediastinum. Impression: No acute disease. HPI: 53 year old Male arrives for evaluation of shortness of breath. This started to worsen over the last few days and is related to his abdomen becoming more distended. Patient was recently in the hospital and had over 9 L of ascites removed. He notes the ascites has reaccumulated.. The patient also notes the following associated symptoms, fatigue. The patient has taken no medication for relieving factors. Current pain is rated as 0/10. Pt denies LOC, headache, fevers, chills, diaphoresis, visual changes, neck pain, chest pain,nausea, vomiting, abdominal pain, back pain, melena, hematochezia, urinary symptoms, numbness, focal weakness, lymphadenopathy, rash, or other complaints.. PAST MEDICAL HISTORY: Alcoholic cirrhosis,, see below PAST SURGICAL HISTORY: See Below, SOCIAL HISTORY: See Below, former alcoholic. Has not had alcohol consumption for 3 months. HOME MEDICATIONS: See Below ALLERGIES: See Below VITALS: See Below PHYSICAL EXAMINATION: GENERAL: Awake, alert, well-appearing, in no distress HENT: Normocephalic, atraumatic. Oropharynx unremarkable. EYES: Pale conjunctiva. Sclera non-icteric. NECK: Inspection normal. Non-tender. Supple. No nuchal rigidity. FROM. No masses. RESPIRATORY: Clear to auscultation. No wheezes. No rales. Normal respiratory effort. CARDIAC: Normal rate. Normal rhythm. No murmurs. No rubs. Extremities warm and well perfused. Pulses equal. No JVD. GI: Soft, significantly-distended. Positive fluid wave. No tenderness to palpation. No rebound or guarding. No masses. RECTAL: Deferred. MUSCULOSKELETAL: Atraumatic. Chest examination reveals no tenderness. The back is symmetrical on inspection without obvious abnormality. There is no CVA tenderness to palpation. No joint edema. LOWER EXTREMITIES: Calves are equal size bilaterally and non-tender. 2-3+ edema. No discoloration. NEURO: Normal sensorium. No sensory or motor deficits noted. SKIN: No rash or jaundice noted. PROCEDURES: none CRITICAL CARE: none OBSERVATION NOTE: none Past Med/Surg History Problem List (Updated 04/26/24 @ 18:56 by Fadi Callahan MD) Anemia (Acute) Abdominal ascites (Acute) SOB (shortness of breath) (Acute) Abdominal distension GRACIELA (acute kidney injury) UGIB (upper gastrointestinal bleed) GAVE (gastric antral vascular ectasia) Esophagitis PAF (paroxysmal atrial fibrillation) Positive blood culture CKD (chronic kidney disease) stage 4, GFR 15-29 ml/min Severe sepsis Symptomatic anemia (Acute) Metabolic encephalopathy (Acute) Alcoholic cirrhosis of liver with ascites (Acute) Abdominal ascites (Acute) Blunt trauma of nose Blunt trauma of face Hypoxia (Acute) Pancytopenia (Acute) Influenza A (Acute) Tobacco use Hypomagnesemia (Acute) Hyponatremia (Acute) Hypokalemia (Acute) Multifocal pneumonia (Acute) Sepsis (Acute) Encounter for pre-operative examination Alcohol use (Acute) Fall (Acute) Medical History Hypervolemia Symptomatic anemia hospitalized [facility] 02/26/24 for issues related to this Poor historian main details obtained from [place] med record Alcoholic cirrhosis of liver with ascites hospitalized [facility] 02/26/24 for issues related to this Metabolic encephalopathy hospitalized [facility] 02/26/24 for issues related to this PAF (paroxysmal atrial fibrillation) pt denies; hospitalized [facility] 02/26/24, evaluated by tae garcia per cardio consult Esophagitis History of severe sepsis hospitalized 02/26/24, [facility] 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 per med record; hospitalized [facility] 02/26/24 for issues related to this Orthostatic hypotension "he thinks" COPD (chronic obstructive pulmonary disease) History of pneumonia 07/2023, 02/26/24, hospitalized [facility] 02/26/24 for issues related to this Chronic kidney disease, stage 4 (severe) S/P abdominal paracentesis 03/21/2024, [facility] Current every day smoker Surgical History History of esophagogastroduodenoscopy (EGD) S/P cataract extraction right eye/left History of tonsillectomy History of hernia surgery infancy Family History Mother Stroke Diabetes Other Colorectal cancer Heart disease Social History Smoking Status: Current every day smoker Tobacco Type: Cigarettes Cigarettes Per Day: 4; Second Hand Exposure: Yes; Do You Dip or Chew Tobacco: No; Tobacco Cessation Education Requested by Patient: No Hx Alcohol Use: No Hx Substance Use: No Preferred Language: Angolan Communication Ability: Effective Sandwich Machine Operator Required: No Beliefs That Will Affect Care: None Current Living Situation: Other Current Living Situation Comment: room mate apt Feels Safe at Home: Yes Safety Concerns: Feels Safe At This Time Assistive Devices: Glasses Allergies Allergies Allergy/AdvReac Type Severity Reaction Status Date / Time Penicillins Allergy Unknown pt unsure Verified 04/02/24 12:32 of reaction Home Meds Home Medications Medication Instructions Recorded Confirmed fluticasone furoate 100 1 inh inhalation QAM 04/12/24 04/26/24 mcg/actuation blister powder for inhalation (Arnuity Ellipta) gabapentin 300 mg capsule 300 mg PO TID 04/12/24 04/26/24 Previous Rx's Medication Instructions Recorded folic acid 1 mg tablet 1 mg PO DAILY #30 tabs 08/15/23 magnesium chloride 64 mg 64 mg PO BID #60 tabs 03/06/24 (magnesium chloride) tablet,delayed release (Mag 64) torsemide 20 mg tablet 40 mg (2 x 20 mg) PO BID #60 tabs 03/06/24 pantoprazole 40 mg tablet,delayed 40 mg PO BID 3 months #180 tabs 03/15/24 release lactulose 20 gram/30 mL oral 20 g (30 mL) PO BID #3,000 mL 04/15/24 solution midodrine 5 mg tablet 10 mg (2 x 5 mg) PO TID #180 tabs 04/15/24 Results & Data (ED) Vital Signs Vital Signs - 24 hr 04/26/24 12:27 04/26/24 13:03 04/26/24 13:04 Temperature 36.6 C Temperature Source Skin Pulse Rate 72 63 Pulse Rate [Finger] 62 Pulse Rhythm Regular Pulse Strength Normal Respiratory Rate 18 20 Respiratory Effort / Characteristics Non-Labored Spontaneous Non-Labored Respiratory Depth Normal Normal Respiratory Pattern Regular Blood Pressure 114/73 Blood Pressure [Right Arm] 128/83 Blood Pressure Mean 86 Blood Pressure Mean [Right Arm] 98 Blood Pressure Position [Right Arm] Semi-fowlers Pulse Oximetry 99 Oxygen Delivery Method Room Air Room Air Sepsis Recent Fever Within 48 Hours No Sepsis New/Unexplained Change in Mental Status No Sepsis Action Taken by Nursing No Action Required 04/26/24 15:24 Temperature Temperature Source Pulse Rate Pulse Rate [Finger] 65 Pulse Rhythm Pulse Strength Respiratory Rate 19 Respiratory Effort / Characteristics Respiratory Depth Respiratory Pattern Blood Pressure Blood Pressure [Right Arm] 122/80 Blood Pressure Mean Blood Pressure Mean [Right Arm] 94 Blood Pressure Position [Right Arm] Pulse Oximetry 98 Oxygen Delivery Method Room Air Sepsis Recent Fever Within 48 Hours Sepsis New/Unexplained Change in Mental Status Sepsis Action Taken by Nursing Laboratory Data 04/26/24 12:52 04/26/24 12:52 Lab Results 04/26/24 04/26/24 Range/Units 12:52 14:42 WBC 10.06 (4.8-10.8) K/ul RBC 2.05 L (4.70-6.10) M/uL Hgb 6.5 L* (14.0-18.0) g/dl Hct 20.0 L* (42.0-52.0) % MCV 97.6 (80.0-100.0) fL MCH 31.7 (25.0-34.0) pg MCHC 32.5 (32.0-36.0) g/dL RDW Std Deviation 62.4 H (36.4-46.3) fL RDW Coeff of Ham 17.6 H (11.5-14.5) % Plt Count 205 (130-400) K/uL MPV 9.8 (9.4-12.4) fL Immature Gran % (Auto) 1.4 % Neut % (Auto) 62.7 % Lymph % (Auto) 17.3 % Knox % (Auto) 9.1 % Eos % (Auto) 8.7 % Baso % (Auto) 0.8 % Neut # (Auto) 6.30 (1.40-6.50) K/uL Lymph # (Auto) 1.74 (1.20-3.40) K/uL Knox # (Auto) 0.92 H (0.11-0.59) K/uL Eos # (Auto) 0.88 H (0.00-0.50) K/uL Baso # (Auto) 0.08 (0.00-0.20) K/uL Immature Gran # (Auto) 0.14 (0.01-0.20) K/uL Polychromasia 1+ PT 11.1 (9.0-12.0) Seconds INR 1.0 (0.9-1.1) Sodium 126 L (136-145) mmol/L Potassium 4.1 (3.5-5.1) mmol/L Chloride 95 L (98-107) mmol/L Carbon Dioxide 23 (21-32) mmol/L Anion Gap 8 (3-11) BUN 71 H (6-23) mg/dl Creatinine 2.50 H (0.6-1.4) mg/dl Est Cr Clr Drug Dosing Not Reportable Est GFR ( Amer) 33.2 ml/min Est GFR (Non-Af Amer) 28.7 ml/min BUN/Creatinine Ratio 28.4 H (10-20) Glucose 105 H (70-99(Fasting)) mg/dl Calcium 8.5 L (8.6-10.3) mg/dl Total Bilirubin 0.8 (0.2-1.0) mg/dl AST 33 (13-39) U/L ALT 14 (7-52) U/L Alkaline Phosphatase 63 (34-104) U/L Total Protein 7.4 (6.0-8.3) gm/dl Albumin 2.8 L (3.4-5.0) gm/dl Globulin 4.6 H (2.5-4.0) gm/dl Albumin/Globulin Ratio 0.6 L (0.9-2) Lipase 93 H (11-82) U/L Blood Type A Negative Antibody Screen NEGATIVE Antibody Identification Cancelled Antibody ID Comment Cancelled Antigen Identification Cancelled Crossmatch See Detail Administered Medications Midodrine (Midodrine Hcl 10 Mg Tab) 10 mg PO TID@0700,1200,1800 GAIL Stop: 05/26/24 17:59 Last Admin: 04/26/24 18:45 Dose: 10 mg Documented By: Morphine Sulfate (Morphine Sulfate 2 Mg/Ml Carp) 2 mg IV Q30M PRN PRN Reason: Chest Pain Stop: 05/10/24 17:37 Last Admin: 04/26/24 17:56 Dose: 2 mg Documented By: Imaging Data Radiologist's Impression: Chest X-Ray 04/26/24 12:31 XR chest 1V portable CLINICAL HISTORY: Abdominal Pain TECHNIQUE: Single frontal radiograph of the chest was obtained. Comparison: Comparison is made to chest radiograph 04/12/2024 FINDINGS: No lines and tubes are seen. Calcified aortic knob is seen. The lungs are clear. No evidence of pleural effusion or pneumothorax. IMPRESSION: No acute chest disease. ACT 112: Negative or not required by law. Electronically signed by: Carlos Bales M.D. 04/26/2024 1:10 PM Discharge Plan Visit Data Chief Complaint: Abdominal Pain Stated Complaint: FLUID IN STOMACH ED Provider: Fadi Callahan Discharge Problem: SOB (shortness of breath), Abdominal ascites, Anemia Patient Disposition: Admitted As Inpatient Discharge Instructions Interventions: ED Discharge Assessment Last Done: 04/26/24 17:17
--- NOTE | 2024-04-26 19:03 | Communication Note ---
Date of Service: April 26, 2024 General surgery was counseled on this patient as he has frequent paracentesis. The hospital service was inquiring if general surgery placed some type of permanent drain to avoid recurrent paracentesis. I did discuss with my attending, Dr. Taylor and she does not perform such a procedure. I did notify the hospitalist that the on-call general surgical provider does not perform this procedure and that they will likely need to reach out to a different service line if they are still interested in having an abdominal drain placed.
[2024-04-26] MEDS: NICOTINE 21 MG/24 HR TDSY TD SCH (19:32)
[2024-04-26] MEDS: PANTOprazole 40 MG in SYRINGE 0 ML IV SCH (20:27)
[2024-04-26] MEDS: LACTULOSE SYRUP 20 GM/30 ML UDC PO SCH (20:27)
[2024-04-26] MEDS: MAGNESIUM CHLORIDE W/CALCIUM 64MG DELAYED REL TAB PO SCH (20:27)
[2024-04-26] MEDS: TORSEMIDE 20 MG TAB PO SCH (20:28)
[2024-04-26] MEDS: GABAPENTIN 300 MG CAP PO SCH (20:28)
[2024-04-26] MEDS: ALBUT/IPRATROP 3MG/0.5MG NEB 3 ML VIAL NEB SCH (20:45)
--- NOTE | 2024-04-26 22:50 | Electrocardiogram Report ---
Test Reason : Blood Pressure : */* mmHG Vent. Rate : 68 BPM Atrial Rate : 68 BPM P-R Int : 172 ms QRS Dur : 96 ms QT Int : 430 ms P-R-T Axes : 9 -5 6 degrees QTcB Int : 457 ms Normal sinus rhythm Normal ECG When compared with ECG of 27-Feb-2024 02:22, Sinus rhythm has replaced Atrial fibrillation Vent. rate has decreased by 65 bpm Questionable change in QRS axis T wave amplitude has increased in Lateral leads Confirmed by Gen Mazariegos ([id number]) on 04/26/2024 10:50:18 PM Referred By: REFERRED SELF Confirmed By: Gen Mazariegos
--- OUTSIDE RECORDS SUMMARY | 2024-04-26 22:59 | External Medical Summary | Summary of Care ---
Author Name Unknown Organization [facility] Address [address] [place] [address] Phone [phone] Care Team Providers Care Thiokol Operator Name Role Phone Rina Neil PA-C Primary Care Provider [phone] Reason for Visit * Reason Onset Date Comments Outpatient Testing 04/16/2024 Encounter Details Date Type Department Care Team (Late st Contact Info) Description 04/16/2024 Telephone Nephrology, [address] [address] Alessandra Sutherland MD [address] [place] [address] Outpatient Testing Allergies Active Allergy Reactions Criticality Noted Date Comments Penicillins Unknown 08/09/2023 documented as of this encounter (statuses as of 04/16/2024) Medications Medication Sig Dispensed Refills Start Date [...] as of this encounter (statuses as of 04/16/2024) Active Problems Problem Noted Date Diagnosed Date Chronic kidney disease, stage 3a 04/08/2024 Overview: Per CKD protocol Alcoholic cirrhosis 12/19/2023 Ascites due to alcoholic cirrhosis 12/19/2023 COPD, 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 documented as of this encounter (statuses as of 04/16/2024) Immunizations Name Administration Dates Next Due Seasonal [...] encounter Miscellaneous Notes * Telephone Encounter - Tiara Chacko RN - 04/16/2024 1:20 PM EDT Pt aware to to complete labs prior to 05/09 appointment. * Telephone Encounter - Tiara Chacko RN - 04/16/2024 1:20 PM EDT ----- Message from Radha Monsalve sent at 04/16/2024 10:51 AM EDT ----- Regarding: RE: needs labs for hosp d/c appt Patient is scheduled on 05/09/[address] Sutherland for hospital discharge. Called patient already andconfirmed. Patient is aware of lab orders needs completed no more than 3 days prior to appointment.Neph nurse, please place lab orders listed below and contact patient once they have been placed. ----- Message ----- From: Grisel Fontaine MD Sent: 04/16/2024 9:21 AM EDT To: Reinaldo Norwood RN; EMERSON Salazar; # Subject: needs labs for hosp d/c appt Needs bmp, uacm, ACR, pth, urine electrolytes, serum and urine osms, cystatin C to be ordered by neph nurse and drawn no more than 72 hrs before neph office / hospital d/c visit documented in this encounter Plan of Treatment Upcoming Encounters Date Type Department Care Team (Late st Contact Info) Description 04/18/2024 2:40 PM EDT Office Visit [facility] [address] [place] [place] [address] [facility] [place] [address] Rina Neil PA-C [address] [facility] [place] [address] 04/25/2024 1:00 PM EDT Appointment Radiology, [facility] [address] [place] [address] 04/26/2024 1:15 PM EDT Imaging Radiology [facility] [address] [facility] [address] [facility] [place] [address] 05/09/2024 10:40 AM EDT Office Visit Nephrology, [facility] [address] [facility] [place] [address] Alessandra Sutherland MD [address] [place] [address] 07/03/2024 10:00 AM EST Office Visit Family Practice [facility] 200 [facility] [place] [address] Rina Neil PA-C 200 [facility] [place] [address] 08/27/2024 10:20 AM EST Office Visit Hepatology, [facility] 132 [facility] [place] [address] Sari Holder MD [address] [place] [address] [place] [address] 01/13/2025 1:45 PM EDT Imaging Radiology [facility] 132 [facility] [place] [address] 01/16/2025 3:00 PM EDT Office Visit Urology, [place] [facility] [address] Brianna Segovia PA-C [address] [facility] [place] [id number] Health Maintenance Due Date Last Done Comments DISCUSS TOBACCO CESSATION (REFER TO SMARTSET #9155) 1972 Lipid Panel 1970 Pneumococcal Vaccine: Pediatrics [...] Additional history exists CKD HGB USE SMARTSET 27954 04/03/202504/03, 01/02/2024, 12/26/2023, Additional history exists CKD PHOS USE SMARTSET 09619 04/03/2025 04/03/2024, 0 10/17/2023 O2 ASSESSMENT COMPLETED [...] filedocumented as of this encounter Care Teams Thiokol Operator Relationship Specialty Start Date End Date Jolynn October SHAQ Carter [address] [place] [address] PCP - General Physician Saxophone Teacher 04/10/24 documented as of this encounter
--- OUTSIDE RECORDS SUMMARY | 2024-04-26 22:59 | External Medical Summary | Summary of Care ---
Author Name Unknown Organization [facility] Address [address] [place] [address] Phone [phone] Care Team Providers Care Restaurant Supervisor Name Role Phone Rina Neil PA-C Primary Care Provider [phone] Reason for Visit * Reason Onset Date Comments Outpatient Testing 04/16/2024 Encounter Details Date Type Department Care Team (Late st Contact Info) Description 04/16/2024 Telephone Nephrology, [address] [address] Alessandra Sutherland MD [address] [place] [address] Outpatient Testing Allergies Active Allergy Reactions [...] Encounter - Tiara Chacko RN - 04/16/2024 12:47 PM EDT ----- Message from Grisel Fontaine MD sent at 04/16/2024 9:19 AM EDT ----- Regarding: needs labs for hosp d/c appt Needs [...] Description 04/18/2024 2:40 PM EDT Office Visit [facility] 200 [facility] [place] [address] Rina Neil PA-C [address] [facility] [place] [address] 04/25/2024 1:00 PM EDT Appointment Radiology, [facility] [address] [place] [address] 04/26/2024 1:15 PM EDT Imaging Radiology [address] [facility] [place] [address] 05/09/2024 10:40 AM EDT Office Visit Nephrology, [facility] [place] [address] Alessandra Sutherland MD [address] [facility] [place] [address] 07/03/2024 10:00 AM EST Office Visit [facility] 200 [facility] [place] [address] Rina Neil PA-C [address] [facility] [place] [address] 08/27/2024 10:20 AM EST Office Visit Hepatology, [facility] 132 [place] [address] Sari Holder MD [address] [place], [place] [address] [address] 01/13/2025 1:45 PM EDT Imaging Radiology [facility] 132 [facility] [place] [address] 01/16/2025 3:00 PM EDT Office Visit Urology, [place] [address] [place] [address] Brianna Segovia PA-C [address] [place] [address] Scheduled Orders Name Type Priority Associated Diagnoses Orde r Schedule BASIC METABOLIC PANEL Lab Routine Chronic kidney disease, stage 3a (HCC) Expected: 04/29/2024 (Approximate), Expires: 04/16/2025 URINALYSIS WITH MICROSCOPIC EXAM Lab Routine Chronic kidney disease, stage 3a (HCC) Expected: 04/29/2024 (Approximate), Expires: 04/16/2025 ALBUMIN / CREATININE RATIO, URINE Lab Routine Chronic kidney disease, stage 3a (HCC) Expected: 04/29/2024 (Approximate), Expires: 04/16/2025 PTH Lab Routine Chronic kidney disease, stage 3a (HCC) Expected: 04/29/2024 (Approximate), Expires: 04/16/2025 ELECTROLYTES, RANDOM URINE Lab Routine Chronic kidney disease, stage 3a (HCC) Expected: 04/29/2024 (Approximate), Expires: 04/16/2025 OSMOLALITY, SERUM Lab Routine Chronic kidney disease, stage 3a (HCC) Expected: 04/29/2024 (Approximate), Expires: 04/16/2025 OSMOLALITY, URINE Lab Routine Chronic kidney disease, stage 3a (HCC) Expected: 04/29/2024 (Approximate), Expires: 04/16/2025 CREATININE AND CYSTATIN C WITH EGFR Lab Routine Chronic kidney disease, stage 3a (HCC) Expected: 04/29/2024 (Approximate), Expires: 04/16/2025 Health Maintenance Due Date Last Done Comments DISCUSS TOBACCO CESSATION (REFER TO SMARTSET #5657) 1972 Lipid Panel 1970 Pneumococcal Vaccine: Pediatrics [...] (1 of 2) 2022 COVID-19 Vaccine ( season) 2024 GFR 10/01/2024 04/03/2024, 06/10/2023, 12/26/2023, Additional history exists CKD HGB USE SMARTSET 80132 04/03/202504/03, 01/02/2024, 12/26/2023, Additional history exists CKD PHOS USE SMARTSET 12283 04/03/2025 04/03/2024, 0 10/17/2023 O2 ASSESSMENT COMPLETED [...] as of this encounter Visit Diagnoses Diagnosis Chronic kidney disease, stage 3a (HCC)- Primary documented in this encounter Care Teams Restaurant Supervisor Relationship Specialty Start Date End Date Jolynn Rina SHAQ Carter [address] [place] [address] PCP - General Physician Spectacle Truer 04/10/24 documented as of this encounter
--- OUTSIDE RECORDS SUMMARY | 2024-04-26 22:59 | External Medical Summary | Summary of Care ---
Author Name Unknown Organization [facility] Address [address] [facility] [address] Phone [phone] Care Team Providers Care Clerk Funeral Detail Name Role Phone Jolynn October PAStone Primary Care Provider [phone] Reason for Visit * Reason Onset Date Comments Referral 04/11/2024 SP 3-Day Encounter Details Date Type Department Care Team (Late st Contact Info) Description 04/11/2024 New Patient Triage (PMP USE ONLY) Hematology/Oncology [facility] 200 [facility] [place] [address] Alba Hernandez CRNP [address] [place] [address] Referral (SP 3-Day) Allergies Active Allergy Reactions Criticality Noted Date Comments Penicillins Unknown 08/09/2023 documented as of this encounter (statuses as of 04/18/2024) Medications Medication Sig Dispensed Refills Start Date [...] the morning. 30 Each 5 04/03/2024 Active Torsemide 20 MG Oral Tablet (Demadex) Take 2 Tablets by mouth in the morning and 2 Tablets before bedtime. 360 Tablet 3 04/03/2024 Active Doxepin HCl 6 MG Oral Tablet (Silenor) Take 6 mg by mouth at bedtime as needed for Insomnia. 30 Tablet 1 04/03/2024 Active Spironolactone 100 MG Oral Tablet (Aldactone) Take 1 Tablet by mouth in the morning. 90 Tablet 3 04/03/2024 04/16/2024 Discontinued (Medication List Clean Up) Carvedilol 6.25 MG Oral Tablet (Coreg) Take 1 Tablet by mouth in the morning. 30 Tablet 04/05/2024 04/16/2024 Discontinued (Medication List Clean Up) documented as of this encounter (statuses as of 04/18/2024) Active Problems Problem Noted Date Diagnosed Date Chronic kidney disease, stage 3a 04/08/2024 Overview: Per CKD protocol Alcoholic cirrhosis 12/19/2023 Ascites due to alcoholic cirrhosis 12/19/2023 COPD, 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 documented as of this encounter (statuses as of 04/18/2024) Immunizations Name Administration Dates Next Due Seasonal [...] as of this encounter Progress Notes * Lewis Wong LPN - 04/18/2024 1:39 PM EDT Discussed care plan with patient or proxy?: Yes LM for patient, return phone number provided. Sent to : Please offer first available with Segun MONTAÑO Hematology, "Severe Anemia", Please also schedule patient for lab work "CBCd, iron screen, ferritin, retic panel, ldh, vitamin b12 and folic acid" two days prior to appointment. Patient can also do lab work 1-hour prior to the appointment as well. Communicated with patient on Date (mm/dd/yyyy): 04/18/2024 at Time ([facility]): 1:43 pm Additional imaging needed: no Additional imaging orders pended: No Further labs recommended and ordered: Yes Bone Marrow biopsy recommended:No [facility] clinic review recommended: No * Alba Hernandez CRNP - 04/18/2024 12:39 PM EDT Hematology New Referral Triage Note 53 y/o male referred for severe anemia. Patient with PMH of alcoholic liver cirrhosis, COPD, and CKD. Patient was admitted to [facility] 04/12/24 - 04/15/24 for severe anemia and GRACIELA. Hgb 4.5 on admission. Received 4 units of PRBC. Hgb 7.1 on discharge. 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 On high dose PPI. Taking folic acid 5 mg daily. Follows with hepatology. Does not appear any iron studies were drawn during admission. Timeframe to be seen: 3 days Can the patient be seen by an advanced practitioner? no Are additional labs or studies needed prior to initial visit? Yes - CBCd, iron screen, ferritin, retic panel, ldh, vitamin b12 and folic acid Is an infusion appointment needed after initial visit? Pending lab results Discussed care plan with patient or proxy?: No Nurse to call. Previously seen hematology? No. Alba Katia LILI Hernandez Hematology * Lewis Wong LPN - 04/18/2024 10:38 AM EDT Alba: Patient admitted to [facility] on 04/12/2024, discharged on 04/15/2024. Patient cancelled follow up appt with PCP today, 04/18/2024. He is rescheduled to 04/22/2024 with Rina Neil PA-C at 12:00 pm Please see [facility] records scanned in starting 04/12/2024 * Lewis Wong LPN - 04/11/2024 10:[address] Kumari- Called and spoke with patient. Made patient aware due to his blood work results on that he needs to go the [facility] ER. Patient verbalized understanding, stating he "has [...] any further questions at this time. * Lewis Wong LPN - 04/11/2024 10:58 AM EDT * Lewis Wong LPN - 04/11/2024 10:35 AM EDT Images from the original note were not included. New Patient Triage What is the diagnosis/reason for referral?: Anemia Enter order ID here: [id number] Specialty specific documentation: Hematology/Oncology NEW PATIENT - HEMATOLOGY/ONCOLOGY SPECIALTY TRIAGE Triage needed?: Yes Referring provider name: Dr. Kelsey MD Confirmation of diagnosis: No TRIAGE PLAN: Baseline/staging imaging complete: No Labs available: Yes Referral to other specialty recommended (ie. Surgery, outpatient infusion): No Additional triage comments: Please refer to TE from 04/08/2024, Dr. Cole documented in this encounter Miscellaneous Notes * Addendum Note - Lewis Wong LPN - 04/18/2024 1:50 PM EDTAddended by: LEWIS WONG on: 04/18/2024 01:50 PM Modules accepted: Orders documented in this encounter Plan of Treatment Upcoming Encounters Date Type Department Care Team (Late st Contact Info) Description 04/22/2024 12:00 PM EDT Office Visit [facility] [address] [place] [place] [address] Rina Neil PA-C [address] [place] [address] 04/26/2024 1:15 PM EDT Imaging Radiology [facility] 1st [facility] 132 [facility] [place] [address] 05/09/2024 10:40 AM EDT Office Visit Nephrology, [facility] [address] [place] [address] [address] Alessandra Sutherland MD [address] [place] [address] [place] [address] 07/03/2024 10:00 AM EST Office Visit [facility] 200 [facility] [address] [place] [address] Rina Neil PA-C [address] [place] [address] 08/27/2024 10:20 AM EST Office Visit Hepatology, [facility] 132 [facility] [address] Sari Holder MD [address] [place], [place] [address] [address] 01/13/2025 1:45 PM EDT Imaging Radiology [facility] 132 [facility] [place] [address] 01/16/2025 3:00 PM EDT Office Visit Urology, [place] [address] [place] [address] Brianna Segovia PA-C [address] [place] [address] Scheduled Orders Name Type Priority Associated Diagnoses Orde r Schedule CBC WITH WBC DIFFERENTIAL Lab STAT Anemia, unspecified type Expected: 04/18/2024 (Approximate), Expires: 06/30/2024 IRON SCREEN, INCLUDING TIBC Lab STAT Anemia, unspecified type Expected: 04/18/2024 (Approximate), Expires: 06/30/2024 FERRITIN Lab STAT Anemia, unspecified type Expected: 04/18/2024 (Approximate), Expires: 06/30/2024 RETICULOCYTE PANEL Lab STAT Anemia, unspecified type Expected: 04/18/2024 (Approximate), Expires: 06/30/2024 LD Lab STAT Anemia, unspecified type Expected: 04/18/2024 (Approximate), Expires: 06/30/2024 VITAMIN B12 Lab STAT Anemia, unspecified type Encounter for long-term (current) use of medications Expected: 04/18/2024 (Approximate), Expires: 06/30/2024 FOLIC ACID Lab STAT Anemia, unspecified type Encounter for long-term (current) use of medications Expected: 04/18/2024 (Approximate), Expires: 06/30/2024 Health Maintenance Due Date Last Done Comments DISCUSS TOBACCO CESSATION (REFER TO SMARTSET #8304) 1972 Lipid Panel 1970 Pneumococcal Vaccine: Pediatrics [...] Vaccine ( season) 2024 GFR 10/01/2024 04/03/2024, 06/0 10/2023, 12/26/2023, Additional history exists CKD HGB USE SMARTSET 94483 04/03/202504/03, 01/02/2024, 12/26/2023, Additional history exists CKD PHOS USE SMARTSET 70345 04/03/2025 04/03/2024, 0 10/17/2023 O2 ASSESSMENT COMPLETED [...] Visit Diagnoses Diagnosis Anemia, unspecified type- Primary Thrombocytopenia, congenital and hereditary (HCC) Congenital and hereditary thrombocytopenic purpura Erythrocytosis Polycythemia, secondary Encounter for long-term (current) use of medications Encounter for long-term (current) use of other medications documented in this encounter Care Teams Clerk Funeral Detail Relationship Specialty Start Date End Date Rina Neil, SHAQ [address] [place] [address] PCP - General Physician Asphalt Screed Operator 04/10/24 documented as of this encounter
--- OUTSIDE RECORDS SUMMARY | 2024-04-26 22:59 | External Medical Summary | Summary of Care ---
Author Name Unknown Organization [facility] Address [address] [facility] [place] [address] Phone [phone] Care Team Providers Care Tool And Fixture Repairer Name Role Phone Jolynn October PAStone Primary Care Provider [phone] Reason for Visit * Reason Onset Date Comments Referral 04/11/2024 SP 3-Day Encounter Details Date Type Department Care Team (Late st Contact Info) Description 04/11/2024 New Patient Triage (SPIKE MACHINE OPERATOR USE ONLY) Hematology/Oncology [facility] [place] 200 [place] [address] Alba Hernandez CRNP [address] [place] [address] Referral (SP 3-Day) Allergies Active [...] Progress Notes * Usha Wong LPN - 04/18/2024 10:38 AM EDT Alba: Patient admitted to [facility] on 04/12/2024, discharged on 04/15/2024. Patient cancelled follow up appt with PCP today, 04/18/2024. He is rescheduled to 04/22/2024 with Rina Neil PA-C at 12:00 pm Please see [facility] Discharge note scanned in * Usha Wong LPN - 04/11/2024 10:[address] Kumari- Called and spoke with patient. Made patient aware due to his blood work results on that he needs to go the [facility] ER. Patient verbalized understanding, stating he "has [...] for referral?: Anemia Enter order ID here: [id number] Specialty specific documentation: Hematology/Oncology NEW PATIENT - [...] Description 04/22/2024 12:00 PM EDT Office Visit [facility] [address] [place] [address] [address] Rina Neil PA-C [address] [place] [address] [place] [address] 04/26/2024 1:15 PM EDT Imaging Radiology [address] [address] 05/09/2024 10:40 AM EDT Office Visit Nephrology, [facility] [address] [place] [address] [address] Alessandra Sutherland MD [address] [place] [address] 07/03/2024 10:00 AM EST Office Visit [facility] [place] [address] [place] [address] Rina Neil PA-C [address] [place] [address] [address] 08/27/2024 10:20 AM EST Office Visit Hepatology, [address] [place] [address] Sari Holder MD [address] [place] [address] 01/13/2025 1:45 PM EDT Imaging Radiology [facility] 132 [facility] [place] [address] 01/16/2025 3:00 PM EDT Office Visit Urology, [place] [address] [place] [address] Brianna Segovia PA-C [address] [place], [place] [id number] Health Maintenance Due Date Last Done Comments DISCUSS TOBACCO CESSATION (REFER TO SMARTSET #5969) 1972 Lipid Panel 1972 Pneumococcal Vaccine: Pediatrics [...] Additional history exists CKD HGB USE SMARTSET 40584 04/03/202504/03, 01/02/2024, 12/26/2023, Additional history exists CKD PHOS USE SMARTSET 86048 04/03/2025 04/03/2024, 0 10/17/2023 O2 ASSESSMENT COMPLETED [...] filedocumented as of this encounter Care Teams Tool And Fixture Repairer Relationship Specialty Start Date End Date Jolynn October Raul, SHAQ [address] [place] [address] PCP - General Physician Planing Machine Operator 04/10/24 documented as of this encounter
--- OUTSIDE RECORDS SUMMARY | 2024-04-26 22:59 | External Medical Summary | Summary of Care ---
Author Name Unknown Organization [facility] Address [address] [facility] [place] [address] Phone [phone] Care Team Providers Care Bench Worker Apprentice Name Role Phone Jolynn October PAStone Primary Care Provider [phone] Reason for Visit * Reason Onset Date Comments Referral 04/11/2024 SP 3-Day Encounter Details Date Type Department Care Team (Late st Contact Info) Description 04/11/2024 New Patient Triage (LEATHER GRADER USE ONLY) Hematology/Oncology [facility] [place] 200 [place] [address] Alba Hernandez CRNP [address] [place] [address] Referral (SP 3-Day) Allergies Active [...] 10:38 AM EDT Alba: Patient admitted to [facility] on 04/12/2024, discharged on 04/15/2024. Patient cancelled follow up appt with PCP today, 04/18/2024. He is rescheduled to 04/22/2024 with Rina Neil PA-C at 12:00 pm Please see [facility] records scanned in starting 04/12/2024 * Usha Wong LPN - 04/11/2024 10:[address] Kumari- Called and spoke with patient. Made patient aware due to his blood work results on that he needs to go the [facility] ER. Patient verbalized understanding, stating he "has [...] for referral?: Anemia Enter order ID here: [id number] Specialty specific documentation: Hematology/Oncology NEW PATIENT - [...] Description 04/22/2024 12:00 PM EDT Office Visit [facility] [address] [place] [address] Rina Neil PA-C [address] [facility] [place] [address] 04/26/2024 1:15 PM EDT Imaging Radiology [address] 132 [facility] [place] [address] 05/09/2024 10:40 AM EDT Office Visit Nephrology, [facility] [address] [place] [address] [address] Alessandra Sutherland MD [address] [place], [place] [address] [address] 07/03/2024 10:00 AM EST Office Visit [facility] [address] [place] [address] [address] Rina Neil PA-C [address] [place] [address] 08/27/2024 10:20 AM EST Office Visit Hepatology, [facility] [address] [place] [address] Sari Holder MD [address] [facility] [place] [address] 01/13/2025 1:45 PM EDT Imaging Radiology [facility] [place] [address] 01/16/2025 3:00 PM EDT Office Visit Urology, [place] [address] [place] [address] Brianna Segovia PA-C [address] [place], [place] [phone] Health Maintenance Due Date Last Done Comments DISCUSS TOBACCO CESSATION (REFER TO SMARTSET #5394) 1972 Lipid Panel 1972 Pneumococcal Vaccine: Pediatrics [...] Additional history exists CKD HGB USE SMARTSET 70778 04/03/202504/03, 01/02/2024, 12/26/2023, Additional history exists CKD PHOS USE SMARTSET 48734 04/03/2025 04/03/2024, 0 10/17/2023 O2 ASSESSMENT COMPLETED [...] filedocumented as of this encounter Care Teams Bench Worker Apprentice Relationship Specialty Start Date End Date JolynnOctober SHAQ [place] [address] [place] [address] PCP - General Physician Brick Pointer 04/10/24 documented as of this encounter
--- OUTSIDE RECORDS SUMMARY | 2024-04-26 22:59 | External Medical Summary | Summary of Care ---
Author Name Unknown Organization [facility] Address [address] [facility] [place] [address] Phone [phone] Care Team Providers Care Third Cook Name Role Phone Rina Neil PA-C Primary Care Provider [phone] Reason for Visit * Reason Onset Date Comments Hospital Follow-Up 04/16/2024 [facility] d/c Encounter Details Date Type Department Care Team (Late st Contact Info) Description 04/16/2024 Telephone Family Practice [facility] [place] 200 [facility] [place] [address] Clarita Rivas, RN Hospital Follow-Up ([facility] d/c) Allergies Active Allergy Reactions Criticality Noted Date [...] for Insomnia. 30 Tablet 1 04/03/2024 Active Constulose 10 GM/15ML Oral Solution 04/15/2024 Active Spironolactone 100 MG Oral Tablet (Aldactone) [...] encounter Miscellaneous Notes * Telephone Encounter - Clarita Rivas RN - 04/16/2024 2:58 PM EDT Transitions of Care Note Reason for Referral:Recent Admission Phone visit for follow up: ANAID Admitted to: [facility], Date: 04/12 Discharged to: home, Date: 04/15 Diagnosis driving hospitalization: anemia Source/Contact: Patient SUBJECTIVE Consent: Verbal consent for review of hospital discharge: Yes REVIEW OF SYSTEMS Patient/Other Reports: Current patient/caregiver problems or concerns: none reported CV: Denies problems Pulmonary: Denies problems Chills/Sweats/Fever:Denies chills/sweats Denies fever Appetite: denies problems Current diet: regular Bowel: titrating lactulose to aim for 3 bowel movements a day Bladder: denies problems Wound (If applicable): N/A Pain:Denies Sleep:Denies problems FUNCTIONAL STATUS: ADL'S: Needs Assistance With:All ADL's as pt is completely dependent IADL'S: Needs Assistance With:N/A as pt is independent Cognitive and Mental Health: denies problems, alert and oriented x 3, and able to communicate, understand instructions, process information. MEDICATION RECONCILIATION Medications: Discharge med list reviewed with patient or caregiver New medication(s) filled since hospitalization- lactulose 20G/30mL Discontinued medication(s) since hospitalization- spironolactone OBJECTIVE ASSESSMENT Medication Risk Assessment: No risks identified Did patient fail outpatient treatment? No Discharge instructions available for review? Yes PLAN Symptom Monitoring Interventions:Member/caregiver education - signs and symptoms to contact PrimaryCare (DO NOT DELETE-Three ramirez symptoms patient is to report to PCP) 1. Black or tarry stools 2. Hematemesis 3. SOB, weakness Human Relations ManagerHealth Promotion Coordinator of Care interventions/Action Plan: 5 - 7 day follow-up with PCP in place - Date: 04/18 Educated on role of ANAID completed with patient/caregiver. Educated patient/caregiver on patient right to have input on ANAID plan of care. Verification of Home Health/DME if indicated: NO not applicable Identified Care Gaps: Yes Care Gaps closed this call: Appointment made or confirmed, Medication optimization, Safety and selfcare issues addressed, and Transition of Care follow-up communication Re-evaluation of Plan of Care and progress towards goals achievement: Patient education this visit: Verbal, as above Plan to instructed to call Primary Care Provider with change in symptoms or as needed before next follow-up, discharge needs met, verbalizes understanding and agrees with plan. Clarita Rivas RN documented in this encounter Plan of Treatment Upcoming Encounters Date Type Department Care Team (Late st Contact Info) Description 04/18/2024 2:40 PM EDT Office Visit [facility] [place] [address] [place] [address] [address] Rina Neil PA-C [address] [place] [address] [place] [address] 04/25/2024 1:00 PM EDT Appointment Radiology, [facility] 400 [place] [address] 04/26/2024 1:15 PM EDT Imaging Radiology [facility] 1st [facility] [address] [place] [address] 05/09/2024 10:40 AM EDT Office Visit Nephrology, [facility] [address] [place] [address] [address] Alessandra Sutherland MD 400 [place] [address] 07/03/2024 10:00 AM EST Office Visit [facility] [place] [address] [place] [address] [address] Rina Neil PA-C [address] [place] [address] 08/27/2024 10:20 AM EST Office Visit Hepatology, [facility] [address] [place] [address] Sari Hloder MD [address] [place] [address] 01/13/2025 1:45 PM EDT Imaging Radiology [facility] [address] [place] [address] 01/16/2025 3:00 PM EDT Office Visit Urology, [place] [address] [place] [address] Brianna Segovia PA-C [address] [place], [place] [phone] Health Maintenance Due Date Last Done Comments DISCUSS TOBACCO CESSATION (REFER TO SMARTSET #5923) 1972 Lipid Panel 1972 Pneumococcal Vaccine: Pediatrics [...] Additional history exists CKD HGB USE SMARTSET 30946 04/03/202504/03, 01/02/2024, 12/26/2023, Additional history exists CKD PHOS USE SMARTSET 08435 04/03/2025 04/03/2024, 0 10/17/2023 O2 ASSESSMENT COMPLETED [...] filedocumented as of this encounter Care Teams Third Cook Relationship Specialty Start Date End Date Jolynn October Raul, SHAQ [address] [place] [address] PCP - General Physician Key Account Coordinator 04/10/24 documented as of this encounter
--- OUTSIDE RECORDS SUMMARY | 2024-04-26 22:59 | External Medical Summary | Summary of Care ---
Author Name Unknown Organization [facility] Address [address] [facility] [place] [address] Phone [phone] Care Team Providers Care Utilities Service Investigator Name Role Phone Jolynn October PAStone Primary Care Provider [phone] Reason for Visit * Reason Onset Date Comments Referral 04/11/2024 SP 3-Day Encounter Details Date Type Department Care Team (Late st Contact Info) Description 04/11/2024 New Patient Triage (PADDER CUSHION USE ONLY) Hematology/Oncology [facility] [place] 200 [facility] [place] [address] Alba Hernandez CRNP [address] [place] [address] Referral (SP 3-Day) Allergies Active [...] as of this encounter Progress Notes * Alba Hernandez CRNP - 04/18/2024 12:39 PM EDT Hematology New Referral Triage Note 53 y/o male referred for severe anemia. Patient with PMH of alcoholic liver cirrhosis, COPD, and CKD. Patient was admitted to [facility] 04/12/24 - 04/15/24 for severe anemia and [...] Nurse to call. Previously seen hematology? No. LILI Howard Hematology * Usha Wong LPN - 04/18/2024 10:38 AM EDT Alba: Patient admitted to [facility] on 04/12/2024, discharged on 04/15/2024. Patient cancelled follow up appt with PCP today, 04/18/2024. He is rescheduled to 04/22/2024 with Rina Neil PA-C at 12:00 pm Please see [facility] records scanned in starting 04/12/2024 * Usha Wong LPN - 04/11/2024 10:[address] Kumari- Called and spoke with patient. Made patient aware due to his blood work results on that he needs to go the [facility] ER. Patient verbalized understanding, stating [...] for referral?: Anemia Enter order ID here: [id number] Specialty specific documentation: Hematology/Oncology NEW PATIENT - [...] Description 04/22/2024 12:00 PM EDT Office Visit [facility] [address] [place] [address] Rina Neil PA-C [address] [facility] [place] [address] 04/26/2024 1:15 PM EDT Imaging Radiology [facility] 1st [facility] 132 [facility] [place] [address] 05/09/2024 10:40 AM EDT Office Visit Nephrology, [facility] [address] [place] [address] Alessandra Sutherland MD [address] [place] [address] [place] [address] 07/03/2024 10:00 AM EST Office Visit [facility] [address] [place] [address] Rina Neil PA-C [address] [facility] [place] [address] 08/27/2024 10:20 AM EST Office Visit Hepatology, [facility] 132 [facility] [place] [address] Sari Holder MD [address] [place] [address] 01/13/2025 1:45 PM EDT Imaging Radiology [facility] 132 [facility] [place] [address] 01/16/2025 3:00 PM EDT Office Visit Urology, [place] [address] [place], [place] [phone] Brianna Segovia PA-C [address] [place], [place] [phone] Health Maintenance Due Date Last Done Comments [...] Additional history exists CKD HGB USE SMARTSET 31487 04/03/202504/03, 01/02/2024, 12/26/2023, Additional history exists CKD PHOS USE SMARTSET 15048 04/03/2025 04/03/2024, 0 10/17/2023 O2 ASSESSMENT COMPLETED [...] filedocumented as of this encounter Care Teams Utilities Service Investigator Relationship Specialty Start Date End Date Jolynn October SHAQ [place] [address] [place] [address] PCP - General Physician Title I Coordinator 04/10/24 documented as of this encounter
[2024-04-27 00:29] LABS: Hematocrit (blood only) 18.4 % (42.0-52.0); Hemoglobin 5.9 g/dl (14.0-18.0)
[2024-04-27] MEDS ORDERED: SODIUM CHLORIDE 0.9% 250 ML IV PRN (00:42)
--- OUTSIDE RECORDS SUMMARY | 2024-04-27 05:55 | External Medical Summary | Summary of Care ---
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 Production Plant Operator Name Role Phone Jolynn Rina Raul NEW Primary Care Provider [phone] Reason for Visit * Reason Onset Date Comments Pre-Transplant Evaluation 04/23/2024 Encounter Details Date Type Department Care Team (Late st Contact Info) Description 04/23[facility]20[facility] [address] [place] [address] Nicolle Liu RN Pre-Transplant Evaluation Allergies Active Allergy Reactions Criticality Noted Date Comments Penicillins Unknown 08/09/2023 documented as of this encounter (statuses as of 04/26/2024) Medications Medication Sig Dispensed Refills Start Date [...] Constulose 10 GM/15ML Oral Solution 04/15/2024 Active documented as of this encounter (statuses as of 04/26/2024) Active Problems Problem Noted Date Diagnosed Date Chronic kidney disease, stage 3a 04/08/2024 Overview: Per CKD protocol Alcoholic cirrhosis 12/19/2023 Ascites due to alcoholic cirrhosis 12/19/2023 COPD, 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 documented as of this encounter (statuses as of 04/26/2024) Immunizations Name Administration Dates Next Due Seasonal [...] encounter Miscellaneous Notes * Telephone Encounter - Nathaly Montalvo, [place] - 04/23/2024 1:44 PM EDT Patient's roommate answered phone. Patient is in bed but will have him return call when he wakes. Contact information provided to roommate. documented in this encounter Plan of Treatment Upcoming Encounters Date Type Department Care Team (Late st Contact Info) Description 04/26/2024 1:15 PM EDT Imaging Radiology [facility] 1st [facility] [address] [facility] [place] [address] 05/09/2024 10:40 AM EDT Office Visit Nephrology, [facility] [address] [facility] [place] [address] Alessandra Sutherland MD [address] [place] [address] 07/03/2024 10:00 AM EST Office Visit Family Practice [facility] [address] [facility] [place] [address] Rina Neil PA-C [address] [facility] [place] [address] 08/27/2024 10:20 AM EST Office Visit Hepatology, [facility] [address] [facility] [place] [address] Sari Holder MD [address] [place], [place] [address] [address] 01/13/2025 1:45 PM EDT Imaging Radiology [facility] [address] [facility] [place] [address] 01/16/2025 3:00 PM EDT Office Visit Urology, [place] [address] [place] [address] Brianna Segovia PA-C [address] [place], [place] [id number] Health Maintenance Due Date Last Done Comments DISCUSS TOBACCO CESSATION (REFER TO SMARTSET #[id number]) 1972 Lipid Panel 1972 Pneumococcal Vaccine: Pediatrics [...] Additional history exists CKD HGB USE SMARTSET 45173 04/03/202504/03, 01/02/2024, 12/26/2023, Additional history exists CKD PHOS USE SMARTSET 93417 04/03/2025 04/03/2024, 0 10/17/2023 O2 ASSESSMENT COMPLETED [...] filedocumented as of this encounter Care Teams Cement Production Plant Operator Relationship Specialty Start Date End Date JolynnOctober SHAQ Carter [address] [place], [place] [address] PCP - General Physician Fuel Testing Technician 04/10/24 documented as of this encounter
--- OUTSIDE RECORDS SUMMARY | 2024-04-27 05:55 | External Medical Summary | Summary of Care ---
Author Name Unknown Organization [facility] Address [address] [place] [address] Phone [phone] Care Team Providers Care Emergency Room Clerk Name Role Phone Jolynn Rina Raul NEW Primary Care Provider [phone] Reason for Visit * Reason Onset Date Comments Pre-Transplant Evaluation 04/26/2024 Encounter Details Date Type Department Care Team (Late st Contact Info) Description 04/26/2024 [facility] [address] [place] [address] Nicolle Liu RN Pre-Transplant Evaluation [...] Telephone Encounter - Nathaly Montalvo, [place] - 04/26/2024 12:43 PM EDT Contacted patient. Unable to take call as he was at an appointment. Will try later. documented in this encounter Plan of Treatment Upcoming Encounters Date Type Department Care Team (Late st Contact Info) Description 04/26/2024 1:15 PM EDT Imaging Radiology [facility] 1st [facility] [address] [facility] [place] [address] 05/09/2024 10:40 AM EDT Office Visit Nephrology, [facility] [address] [facility] [place] [address] Alessandra Sutherland [facility] [place] [address] 07/03/2024 10:00 AM EST Office Visit Family Practice [facility] [address] [facility] [place] [address] Rina Neil PA-C [address] [facility] [place] [address] 08/27/2024 10:20 AM EST Office Visit Hepatology, [facility] [address] [facility] [place] [address] Sari Holder MD [address] [place] [address] [place] [address] 01/13/2025 1:45 PM EDT Imaging Radiology [facility] [address] [facility] [place] [address] 01/16/2025 3:00 PM EDT Office Visit Urology, [facility] [address], [place] [id number] Brianna Segovia PA-C [address] [place], [place] [phone] Health Maintenance Due Date Last Done Comments DISCUSS TOBACCO CESSATION (REFER TO SMARTSET #8502) 1972 Lipid Panel 1972 Pneumococcal Vaccine: Pediatrics [...] Additional history exists CKD HGB USE SMARTSET 91459 04/03/202504/03, 01/02/2024, 12/26/2023, Additional history exists CKD PHOS USE SMARTSET 00298 04/03/2025 04/03/2024, 0 10/17/2023 O2 ASSESSMENT COMPLETED [...] filedocumented as of this encounter Care Teams Emergency Room Clerk Relationship Specialty Start Date End Date JolynnOctober SHAQ Carter [address] [place] [address] PCP - General Physician Associate Accountant 04/10/24 documented as of this encounter
[2024-04-27] MEDS: FOLIC ACID 1 MG TAB PO SCH (08:17)
[2024-04-27] MEDS: FLUTICASONE FUROATE 100MCG 14 PUFFS/INHALER INH SCH (08:17)
[2024-04-27 09:40] LABS: Basophils # (auto) 0.12 K/uL (0.00-0.20); Basophils % (auto) 1.1 %; Eosinophils # (auto) 0.95 K/uL (0.00-0.50); Eosinophils % (auto) 8.6 %; Hematocrit (blood only) 23.4 % (42.0-52.0); Hematocrit (blood only) 23.6 % (42.0-52.0); Hemoglobin 8.1 g/dl (14.0-18.0); Immature Granulocytes # (auto) 0.11 K/uL (0.01-0.20); Lymphocytes # (auto) 1.54 K/uL (1.20-3.40); Mean Corpuscular Hemoglobin 31.4 pg (25.0-34.0); Mean Corpuscular Hgb Conc 34.3 g/dL (32.0-36.0); Mean Corpuscular Volume 91.5 fL (80.0-100.0); Mean Platelet Volume 9.7 fL (9.4-12.4); Monocytes # (auto) 1.31 K/uL (0.11-0.59); Monocytes % (auto) 11.9 %; Neutrophils # (auto) 6.98 K/uL (1.40-6.50); Neutrophils % (auto) 63.4 %; Platelet Count 150 K/uL (130-400); RDW Coefficient of Variation 17.2 % (11.5-14.5); Red Blood Count 2.58 M/uL (4.70-6.10); White Blood Count 11.01 K/ul (4.8-10.8)
[2024-04-27 10:11] LABS: Albumin Globulin Ratio 0.6 (0.9-2); Albumin Level 2.4 gm/dl (3.4-5.0); BUN Creatinine Ratio 32.9 (10-20); Bilirubin,Total 2.9 mg/dl (0.2-1.0); Calcium 8.4 mg/dl (8.6-10.3); Creatinine Clr Calc Pharmacy 42.1 ml/min; Est GFR (African American) 37.7 ml/min; Est GFR (Non-African American) 32.5 ml/min; Globulin 3.7 gm/dl (2.5-4.0); Potassium 3.9 mmol/L (3.5-5.1); Total Protein 6.1 gm/dl (6.0-8.3)
[2024-04-27] MEDS: SPIRONOLACTONE 100 MG TAB PO SCH (11:19)
--- NOTE | 2024-04-27 11:19 | Gastrointestinal Consultation ---
Date of Consultation April 27, 2024 Assessment & Plan (1) Anemia: Patient is anemic he has been anemic with a baseline hemoglobin ranging between 7 and 8 of note he has had 2 EGDs in the last 2 months the first EGD showed he had GAVE and portal hypertensive gastropathy in the record again EGD showed he had esophagitis and gastritis currently he is not actively bleeding I did a rectal myself and the rectal showed he had dark brown stools he has had a good response to 2 units of blood and his hemoglobin has come up to 8.2 from 5.9 at the current time I would 1. Continue on PPI twice daily 2. Plan for an EGD colonoscopy on Monday as he is having this recurrent anemia to find out if there is any other lesion that may be contributing to it 3. Monitor H&H every 8 hours 4. If the patient's hemoglobin falls we will plan for an emergent EGD Cirrhosis Patient has decompensated cirrhosis he has need for recurrent peritoneal taps he may need another tap on this hospitalization also he has renal insufficiency along with that he may benefit from evaluation for shunt as well as workup for transplant though he has been drinking a few weeks ago but he may be a candidate to start the workup for transplant would place on Aldactone endorgan agree with renal input History of Present Illness Reason for Consultation: Anemia Requesting Physician: We will consult Attending Physician: Mike Crane MD History of Present Illness 53-year-old male who is well-known to our service and has had multiple admissions recently who was readmitted with anemia. he has a history of alcohol induced cirrhosis and has been drinking 6 weeks ago COPD, renal cyst, CKD, chronic anemia who presented to the ED on the request of his PCP due to anemia. On admission he was found to have a hemoglobin of 5.9 of note he has had 2 recent EGDs which have somewhat different findings he had a recent EGD at the beginning of the month which showed esophagitis and gastritis he had a previous EGD about a couple of months ago which showed Portal hypertensive gastropathy and GAVE currently the patient himself states that he does not have any specific complaints he denies any dysphagia nausea or vomiting he does have abdominal distention of note he has been getting multiple paracentesis and he is on diuretics and Aldactone as per the notes however not getting Aldactone in the hospital currently he himself states that he has not had any bleeding per se he is having variable amount of bowel movements depending upon the amount of lactulose that he takes currently he appears stable Allergies Allergy/AdvReac Type Severity Reaction Status Date / Time Penicillins Allergy Unknown pt unsure Verified 04/02/24 12:32 of reaction Home Medications Medication Instructions Recorded Confirmed Type folic acid 1 mg tablet 1 mg PO DAILY #30 tabs 08/15/23 04/26/24 Rx magnesium chloride 64 mg 64 mg PO BID #60 tabs 03/06/24 04/26/24 Rx (magnesium chloride) tablet,delayed release (Mag 64) torsemide 20 mg tablet 40 mg (2 x 20 mg) PO BID #60 tabs 03/06/24 04/26/24 Rx pantoprazole 40 mg tablet,delayed 40 mg PO BID 3 months #180 tabs 03/15/24 04/26/24 Rx release fluticasone furoate 100 1 inh inhalation QAM 04/12/24 04/26/24 History mcg/actuation blister powder for inhalation (Arnuity Ellipta) gabapentin 300 mg capsule 300 mg PO TID 04/12/24 04/26/24 History lactulose 20 gram/30 mL oral 20 g (30 mL) PO BID #3,000 mL 04/15/24 04/26/24 Rx solution midodrine 5 mg tablet 10 mg (2 x 5 mg) PO TID #180 tabs 04/15/24 04/26/24 Rx Patient History Medical History Hypervolemia Symptomatic anemia hospitalized [facility] 02/26/24 for issues related to this Poor historian main details obtained from [place] med record Alcoholic cirrhosis of liver with ascites hospitalized [facility] 02/26/24 for issues related to this Metabolic encephalopathy hospitalized [facility] 02/26/24 for issues related to this PAF (paroxysmal atrial fibrillation) pt denies; hospitalized [facility] 02/26/24, evaluated by tae garcia per cardio consult Esophagitis History of severe sepsis hospitalized 02/26/24, [facility] 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 per med record; hospitalized [facility] 02/26/24 for issues related to this Orthostatic hypotension "he thinks" COPD (chronic obstructive pulmonary disease) History of pneumonia 07/2023, 02/26/24, hospitalized [facility] 02/26/24 for issues related to this Chronic kidney disease, stage 4 (severe) S/P abdominal paracentesis 03/21/2024, [facility] Current every day smoker Surgical History History of esophagogastroduodenoscopy (EGD) S/P cataract extraction right eye/left History of tonsillectomy History of hernia surgery infancy Family History Mother Stroke Diabetes Other Colorectal cancer Heart disease Social History Smoking Status: Current every day smoker Tobacco Type: Cigarettes Cigarettes Per Day: 4; Second Hand Exposure: Yes; Do You Dip or Chew Tobacco: No; Tobacco Cessation Education Requested by Patient: No Hx Alcohol Use: No Hx Substance Use: No Preferred Language: Grenadian Communication Ability: Effective 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 Grinding 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 Operator Required: No Beliefs That Will Affect Care: None Current Living Situation: Other Current Living Situation Comment: room mate apt Feels Safe at Home: Yes Safety Concerns: Feels Safe At This Time Assistive Devices: Glasses Review of Systems Review of Systems: A 10 point review of systems was done Physical Exam Constitutional: Cachectic appearing male who appears comfortable Eyes: Mild icterus Neck: Supple Cardiovascular: RRR, no murmur, no edema Gastrointestinal (Abdomen): Abdomen is distended however it is not tender it is soft positive for ascites Results & Data Vital Signs (Past 12 Hours) Vital Signs Temp Pulse Pulse Resp BP BP Pulse Ox 04/27/24 08:09 36.7 C 73 18 116/61 98 04/27/24 07:40 66 16 97 04/27/24 07:31 04/27/24 06:40 36.6 C 65 17 129/78 98 04/27/24 06:37 36.7 C 65 129/78 97 04/27/24 06:14 36.4 C L 64 16 127/80 99 04/27/24 05:14 36.7 C 68 17 122/78 99 04/27/24 04:44 36.7 C 67 16 121/78 97 04/27/24 04:29 36.7 C 69 17 130/72 97 04/27/24 04:29 36.7 C 69 17 130/72 97 04/27/24 04:14 36.5 C 70 16 114/62 98 09/28/24 04:08 36.5 C 72 16 114/62 98 04/27/24 03:39 36.4 C L 72 18 114/71 98 04/27/24 02:42 36.7 C 69 16 114/69 98 04/27/24 02:12 36.4 C L 65 16 121/80 98 04/27/24 01:57 36.4 C 65 18 130/83 98 04/27/24 01:36 36.5 C 65 16 146/87 H 100 04/27/24 00:19 70 O2 Del Method 04/27/24 08:09 Room Air 04/27/24 07:40 Room Air 04/27/24 07:31 Room Air 04/27/24 06:40 04/27/24 06:37 04/27/24 06:14 04/27/24 05:14 04/27/24 04:44 04/27/24 04:29 04/27/24 04:29 04/27/24 04:14 04/27/24 04:08 04/27/24 03:39 04/27/24 02:42 04/27/24 02:12 04/27/24 01:57 04/27/24 01:36 04/27/24 00:19 PG Care Time/CCT Total # of Minutes Spent Total Time Spent with Patient: Total time spent is greater than 50% in coordination of care (as documented) at patient's floor/unit and/or counseling patient: Coding Level of Care Code 00820 IN/OBS CONSULT LVL 3,45M Diagnoses Anemia D64.9
[2024-04-27 13:06] LABS: Basophils # (auto) 0.11 K/uL (0.00-0.20); Basophils % (auto) 1.2 %; Eosinophils # (auto) 0.84 K/uL (0.00-0.50); Hemoglobin 7.7 g/dl (14.0-18.0); Immature Granulocytes # (auto) 0.12 K/uL (0.01-0.20); Immature Granulocytes % (auto) 1.3 %; Lymphocytes # (auto) 1.17 K/uL (1.20-3.40); Lymphocytes % (auto) 12.5 %; Mean Corpuscular Hemoglobin 30.2 pg (25.0-34.0); Mean Corpuscular Hgb Conc 32.1 g/dL (32.0-36.0); Mean Corpuscular Volume 94.1 fL (80.0-100.0); Mean Platelet Volume 9.6 fL (9.4-12.4); Monocytes % (auto) 9.6 %; Neutrophils # (auto) 6.24 K/uL (1.40-6.50); Neutrophils % (auto) 66.4 %; Platelet Count 161 K/uL (130-400); RDW Coefficient of Variation 17.7 % (11.5-14.5); RDW Standard Deviation 58.7 fL (36.4-46.3); Red Blood Count 2.55 M/uL (4.70-6.10); White Blood Count 9.38 K/ul (4.8-10.8)
[2024-04-27 13:31] LABS: RBC Morphology Unremarkable
--- NOTE | 2024-04-27 14:51 | Hospitalist Progress Note ---
Date of Service April 27, 2024 Assessment & Plan (1) Abdominal distension: (2) Alcoholic cirrhosis of liver with ascites: Plan Decompensated EtOH cirrhosis w/ascites Patient presented with abdominal distention History of frequent paracentesis needed for last couple of months Last paracentesis was on 04/15; had 9.3 L removed Plan for paracentesis on Monday On torsemide; added Aldactone as well Continue lactulose Symptomatic anemia Possible UGI bleed Status post 3 units of packed RBC transfusion No bloody stools/melena noted Recent EGD from 02/29/24 showed LA grade B reflux esophagitis without bleeding, Gastric antral vascular ectasia without bleeding s/p APC, erythematous duodenopathy, portal hypertensive gastropathy, mucosal nodule in esophagus Transfuse if hemoglobin is less than 7 Discussed with GI; possible endoscopy/colonoscopy on Monday. CBC every 8 hours Full liquid diet Continue IV Protonix twice daily Hypervolemic hyponatremia GRACIELA on CKD III Progressive elevation in creatinine over the last several months Also appears to have hypervolemic hyponatremia Creatinine of 2.50 on admission; Will give trial of IV albumin every 8 hours Fluid restriction of 1500cc for hyponatremia Nephrology on consult; appreciate recommendation DVT prophylaxis SCDs Full code Time spent evaluating patient, direct bedside care, chart review, placing orders, interpretation of diagnostic studies, discussion with consultants, patient, , as well as other required patient management activities is 50 minutes Please note the above document was generated using voice recognition software. It may contain grammatical, syntax or spelling errors. Any formal questions or concerns about the content, text or information contained within the body of this dictation should be directly addressed to the provider for clarification Admission and Anticipated Discharge Date Admission Date: April 26, 2024 Subjective Patient seen and examined at bedside Reports abdominal discomfort; denies any other complaint Denies fever, chills, chest pain or shortness of breath No significant events overnight Review of Systems Review of Systems: All systems reviewed & are unremarkable except as noted in Subjective Physical Exam Physical Exam: Constitutional: Awake, alert oriented x 3 Respiratory: normal respiratory effort, lungs clear to auscultation, no wheeze, rales, rhonchi. Normal insp/exp effort, no accessory muscle use Cardiovascular: RRR, no murmur, no edema Vessels: no JVD or carotid bruit Chest: normal inspection of chest Abdomen: Distended, nontender. Musculoskeletal: no cyanosis or clubbing, extremities motor strength 5/5 Skin: no rashes, warm and dry normal turgor Neurologic: PERRL, EOMI, accommodation nl, no face palsy, no dysarthria CN's II- XI intact bilaterally and moves all extremities Psychiatric: A+Ox3, euthymic affect Results & Data Results & Data Vital Signs (Past 12 Hours) Vital Signs Temp Pulse Pulse Resp BP BP Pulse Ox 04/27/24 11:44 36.6 C 70 19 132/80 97 04/27/24 08:09 36.7 C 73 18 116/61 98 04/27/24 07:40 66 16 97 04/27/24 07:31 04/27/24 06:40 36.6 C 65 17 129/78 98 04/27/24 06:37 36.7 C 65 129/78 97 04/27/24 06:14 36.4 C L 64 16 127/80 99 04/27/24 05:14 36.7 C 68 17 122/78 99 04/27/24 04:44 36.7 C 67 16 121/78 97 04/27/24 04:29 36.7 C 69 17 130/72 97 04/27/24 04:29 36.7 C 69 17 130/72 97 04/27/24 04:14 36.5 C 70 16 114/62 98 04/27/24 04:08 36.5 C 72 16 114/62 98 04/27/24 03:39 36.4 C L 72 18 114/71 98 O2 Del Method 04/27/24 11:44 Room Air 04/27/24 08:09 Room Air 04/27/24 07:40 Room Air 04/27/24 07:31 Room Air 04/27/24 06:40 04/27/24 06:37 04/27/24 06:14 04/27/24 05:14 04/27/24 04:44 04/27/24 04:29 04/27/24 04:29 04/27/24 04:14 04/27/24 04:08 04/27/24 03:39
--- NOTE | 2024-04-27 15:46 | Nephrology Consultation ---
Date of Consultation April 27, 2024 Assessment & Plan (1) GRACIELA (acute kidney injury): Advanced CKD 3B w/ actual baseline 1.9 > GRACIELA due to acute blood loss anemia and decompensated cirrhosis. He needs paracentesis but this would be done only on Monday Continue on present dose of furosemide and spirolactone, albumin and midodrine, His BP is acceptable. Hypervolemic hyponatremia - Diuretics as above (2) Anemia: Possible UGI bleed Status post 3 units of packed RBC transfusion No bloody stools/melena noted Recent EGD from 02/29/24 showed LA grade B reflux esophagitis without bleeding, Gastric antral vascular ectasia without bleeding s/p APC, erythematous duodenopathy, portal hypertensive gastropathy, mucosal nodule in esophagus Transfuse if hemoglobin is less than 7 possible endoscopy/colonoscopy on Monday. CBC every 8 hours Full liquid diet Continue IV Protonix twice daily (3) Alcoholic cirrhosis of liver with ascites: GI on board. History of Present Illness Reason for Consultation: Acute kidney injury. Hyponatremia on a cirrhotic patient Attending Physician: Mike Crane MD History of Present Illness 53-year-old male who p/w grossly distended abdomen and Anemia( hB -6.5)He was recently discharged when he had paracentesis and had refused EGD. Past medical history includes rapidly progressive renal dysfunction in 2023, active tobacco abuse, active alcohol abuse, COPD, liver cirrhosis, significant chronic anemia, complex renal cyst or annual follow-up with Urology. His baseline creatinine is somewhat labile ranging from 0.6-1.2 from July 2023 through October 17, 2023. He takes spironolactone and midodrine as an outpatient but compliance. Patient on presentation per report endorsed progressive abdominal distention.He presented with abdominal discomfort W/ mild dypsnea on presentation. No report of tarry stools or coffee ground emesis.Admitting cr was 2.5 w/ Na 126, normal potassium. Allergies Allergy/AdvReac Type Severity Reaction Status Date / Time Penicillins Allergy Unknown pt unsure Verified 04/02/24 12:32 of reaction Home Medications Medication Instructions Recorded Confirmed Type folic acid 1 mg tablet 1 mg PO DAILY #30 tabs 08/15/23 04/26/24 Rx magnesium chloride 64 mg 64 mg PO BID #60 tabs 03/06/24 04/26/24 Rx (magnesium chloride) tablet,delayed release (Mag 64) torsemide 20 mg tablet 40 mg (2 x 20 mg) PO BID #60 tabs 03/06/24 04/26/24 Rx pantoprazole 40 mg tablet,delayed 40 mg PO BID 3 months #180 tabs 03/15/24 04/26/24 Rx release fluticasone furoate 100 1 inh inhalation QAM 04/12/24 04/26/24 History mcg/actuation blister powder for inhalation (Arnuity Ellipta) gabapentin 300 mg capsule 300 mg PO TID 04/12/24 04/26/24 History lactulose 20 gram/30 mL oral 20 g (30 mL) PO BID #3,000 mL 04/15/24 04/26/24 Rx solution midodrine 5 mg tablet 10 mg (2 x 5 mg) PO TID #180 tabs 04/15/24 04/26/24 Rx Patient History Medical History Hypervolemia Symptomatic anemia hospitalized [facility] 02/26/24 for issues related to this Poor historian main details obtained from [place] med record Alcoholic cirrhosis of liver with ascites hospitalized [facility] 02/26/24 for issues related to this Metabolic encephalopathy hospitalized [facility] 02/26/24 for issues related to this PAF (paroxysmal atrial fibrillation) pt denies; hospitalized [facility] 02/26/24, evaluated by tae garcia per cardio consult Esophagitis History of severe sepsis hospitalized 02/26/24, [facility] 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 per med record; hospitalized [facility] 02/26/24 for issues related to this Orthostatic hypotension "he thinks" COPD (chronic obstructive pulmonary disease) History of pneumonia 07/2023, 02/26/24, hospitalized [facility] 02/26/24 for issues related to this Chronic kidney disease, stage 4 (severe) S/P abdominal paracentesis 03/21/2024, [facility] Current every day smoker Surgical History History of esophagogastroduodenoscopy (EGD) S/P cataract extraction right eye/left History of tonsillectomy History of hernia surgery infancy Family History Mother Stroke Diabetes Other Colorectal cancer Heart disease Social History Smoking Status: Current every day smoker Tobacco Type: Cigarettes Cigarettes Per Day: 4; Second Hand Exposure: Yes; Do You Dip or Chew Tobacco: No; Tobacco Cessation Education Requested by Patient: No Hx Alcohol Use: No Hx Substance Use: No Preferred Language: Thai Communication Ability: Effective Superintendent Menagerie Required: No Beliefs That Will Affect Care: None Current Living Situation: Other Current Living Situation Comment: room mate apt Feels Safe at Home: Yes Safety Concerns: Feels Safe At This Time Assistive Devices: None Review of Systems 2 Review of Systems: Icteric look in mild respiratory distress Grossly distended abdomen. Physical Exam 2 Physical Exam: Constitutional: Awake, alert oriented x 3 Respiratory: normal respiratory effort, lungs clear to auscultation, no wheeze, rales, rhonchi. Cardiovascular: RRR, no murmur, no edema Vessels: no JVD or carotid bruit Chest: normal inspection of chest Abdomen: Distended, nontender. Musculoskeletal: no cyanosis or clubbing, extremities motor strength 5/5 Skin: no rashes, warm and dry normal turgor Neurologic: PERRL, EOMI, Results & Data Vital Signs (Past 12 Hours) Vital Signs Temp Pulse Pulse Resp BP BP Pulse Ox 04/27/24 15:10 72 17 96 04/27/24 11:44 36.6 C 70 19 132/80 97 04/27/24 08:09 36.7 C 73 18 116/61 98 04/27/24 07:40 66 16 97 04/27/24 07:31 04/27/24 06:40 36.6 C 65 17 129/78 98 04/27/24 06:37 36.7 C 65 129/78 97 04/27/24 06:14 36.4 C L 64 16 127/80 99 04/27/24 05:14 36.7 C 68 17 122/78 99 04/27/24 04:44 36.7 C 67 16 121/78 97 04/27/24 04:29 36.7 C 69 17 130/72 97 04/27/24 04:29 36.7 C 69 17 130/72 97 04/27/24 04:14 36.5 C 70 16 114/62 98 04/27/24 04:08 36.5 C 72 16 114/62 98 O2 Del Method 04/27/24 15:10 Room Air 04/27/24 11:44 Room Air 04/27/24 08:09 Room Air 04/27/24 07:40 Room Air 04/27/24 07:31 Room Air 04/27/24 06:40 04/27/24 06:37 04/27/24 06:14 04/27/24 05:14 04/27/24 04:44 04/27/24 04:29 04/27/24 04:29 04/27/24 04:14 04/27/24 04:08 Laboratory Results 04/27/24 12:43 04/27/24 09:27
[2024-04-27] MEDS: ALBUMIN 25% 25 GM/100 ML VIAL IV SCH (16:13)
[2024-04-27 21:41] LABS: Basophils # (auto) 0.07 K/uL (0.00-0.20); Basophils % (auto) 0.7 %; Eosinophils # (auto) 0.78 K/uL (0.00-0.50); Hematocrit (blood only) 22.4 % (42.0-52.0); Hemoglobin 7.3 g/dl (14.0-18.0); Immature Granulocytes # (auto) 0.09 K/uL (0.01-0.20); Immature Granulocytes % (auto) 0.9 %; Lymphocytes # (auto) 1.47 K/uL (1.20-3.40); Mean Corpuscular Hemoglobin 30.8 pg (25.0-34.0); Mean Corpuscular Hgb Conc 32.6 g/dL (32.0-36.0); Mean Corpuscular Volume 94.5 fL (80.0-100.0); Mean Platelet Volume 9.5 fL (9.4-12.4); Monocytes # (auto) 0.96 K/uL (0.11-0.59); Monocytes % (auto) 9.8 %; Neutrophils % (auto) 65.6 %; Platelet Count 163 K/uL (130-400); RDW Coefficient of Variation 17.8 % (11.5-14.5); RDW Standard Deviation 59.5 fL (36.4-46.3); Red Blood Count 2.37 M/uL (4.70-6.10); White Blood Count 9.77 K/ul (4.8-10.8)
[2024-04-27 22:22] LABS: RBC Morphology Unremarkable
[2024-04-27] MEDS: oxyCODONE HCL IR 5 MG TAB (IMMEDIATE RELEASE) PO PRN (23:19)
[2024-04-28] MEDS ORDERED: ALBUT/IPRATROP 3MG/0.5MG NEB 3 ML VIAL NEB PRN (03:47)
[2024-04-28] MEDS: ALBUT/IPRATROP 3MG/0.5MG NEB 3 ML VIAL NEB STA ×2 (03:56→14:28)
[2024-04-28 04:41] LABS: BUN Creatinine Ratio 38.8 (10-20); Calcium 8.3 mg/dl (8.6-10.3); Creatinine Clr Calc Pharmacy 47.1 ml/min; Est GFR (African American) 43.2 ml/min; Est GFR (Non-African American) 37.3 ml/min; Potassium 4.4 mmol/L (3.5-5.1)
[2024-04-28 04:51] LABS: INR 1.1 (0.9-1.1)
[2024-04-28 05:22] LABS: Hematocrit (blood only) 19.7 % (42.0-52.0); Hemoglobin 6.6 g/dl (14.0-18.0); Mean Corpuscular Hemoglobin 30.8 pg (25.0-34.0); Mean Corpuscular Hgb Conc 33.5 g/dL (32.0-36.0); Mean Corpuscular Volume 92.1 fL (80.0-100.0); Mean Platelet Volume 9.8 fL (9.4-12.4); Platelet Count 153 K/uL (130-400); RDW Coefficient of Variation 17.5 % (11.5-14.5); RDW Standard Deviation 57.7 fL (36.4-46.3); Red Blood Count 2.14 M/uL (4.70-6.10)
[2024-04-28 05:23] LABS: Basophils # (auto) 0.08 K/uL (0.00-0.20); Basophils % (auto) 0.8 %; Eosinophils # (auto) 0.86 K/uL (0.00-0.50); Eosinophils % (auto) 8.1 %; Hypochromasia Present; Immature Granulocytes # (auto) 0.11 K/uL (0.01-0.20); Lymphocytes # (auto) 1.64 K/uL (1.20-3.40); Lymphocytes % (auto) 15.5 %; Monocytes # (auto) 1.02 K/uL (0.11-0.59); Monocytes % (auto) 9.6 %; Neutrophils # (auto) 6.89 K/uL (1.40-6.50); Polychromasia 1+
[2024-04-28] MEDS ORDERED: SODIUM CHLORIDE 0.9% 250 ML IV PRN (05:27)
--- NOTE | 2024-04-28 08:12 | XRay Report ---
SINGLE VIEW CHEST CLINICAL HISTORY: Wheezing FINDINGS: 2 AP, portable, upright chest radiographs are compared to study dated 04/26/2024. The examin ation is degraded by portable technique and apical lordotic positioning. The the heart is mildly enla rged and noting atherosclerotic calcification of the thoracic aorta. The pulmonary vasculature is non congested. Emphysema and chronic interstitial thickening is similar to previous. There are low lung v olumes. Mild patchy airspace opacities are seen at the left lung base. No large pleural effusion or p neumothorax is seen. The skeletal structures appear osteopenic. The bony thorax is grossly intact. IMPRESSION: 1. Cardiomegaly and emphysema without radiographic evidence of congestive failure. 2. Mild patchy airspace consolidation of the left lung base suggests an infectious/inflammatory pneum onitis. Clinical correlation will be required and radiographic follow-up to resolution is recommended . ACT 112: Negative or not required by law. Electronically signed by: Taran Tam M.D. 04/28/2024 8:11 AM
--- NOTE | 2024-04-28 11:35 | Hospitalist Progress Note ---
Date of Service April 28, 2024 Assessment & Plan (1) Abdominal distension: (2) Alcoholic cirrhosis of liver with ascites: Plan Decompensated EtOH cirrhosis w/ascites Patient presented with abdominal distention History of frequent paracentesis needed for last couple of months Last paracentesis was on 04/15; had 9.3 L removed Plan for paracentesis on Monday On torsemide; added Aldactone as well Continue lactulose Symptomatic anemia Possible UGI bleed Status post 4 units of packed RBC transfusion No bloody stools/melena noted Recent EGD from 02/29/24 showed LA grade B reflux esophagitis without bleeding, 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 Possible colonoscopy tomorrow CBC to be repeated after transfusion N.p.o. for now Continue IV Protonix twice daily Hypervolemic hyponatremia GRACIELA on CKD III Progressive elevation in creatinine over the last several months Also appears to have hypervolemic hyponatremia Creatinine of 2.50 on admission; Will give trial of IV albumin every 8 hours Fluid restriction of 1500cc for hyponatremia Nephrology on consult; recommend to continue diuretics DVT prophylaxis SCDs Full code Time spent evaluating patient, direct bedside care, chart review, placing orders, interpretation of diagnostic studies, discussion with consultants, patient, , as well as other required patient management activities is 50 minutes Please note the above document was generated using voice recognition software. It may contain grammatical, syntax or spelling errors. Any formal questions or concerns about the content, text or information contained within the body of this dictation should be directly addressed to the provider for clarification Admission and Anticipated Discharge Date Admission Date: April 26, 2024 Subjective Patient seen and examined at bedside He is comfortable; not in distress Hemoglobin down trended to 6.6 today; currently receiving transfusion Denies any vomiting, dark stool or hematochezia Review of Systems Review of Systems: All systems reviewed & are unremarkable except as noted in Subjective Physical Exam Physical Exam: Constitutional: Awake, alert oriented x 3 Respiratory: normal respiratory effort, lungs clear to auscultation, no wheeze, rales, rhonchi. Normal insp/exp effort, no accessory muscle use Cardiovascular: RRR, no murmur, no edema Vessels: no JVD or carotid bruit Chest: normal inspection of chest Abdomen: Distended, nontender. Musculoskeletal: no cyanosis or clubbing, extremities motor strength 5/5 Skin: no rashes, warm and dry normal turgor Neurologic: PERRL, EOMI, accommodation nl, no face palsy, no dysarthria CN's II- XI intact bilaterally and moves all extremities Psychiatric: A+Ox3, euthymic affect Results & Data Results & Data Vital Signs (Past 12 Hours) Vital Signs Temp Pulse Pulse Resp BP BP Pulse Ox 04/28/24 11:07 77 18 96 04/28/24 10:37 36.3 C L 70 20 144/89 H 100 04/28/24 10:17 36.3 C L 70 18 144/89 H 100 04/28/24 09:17 71 18 107/71 98 04/28/24 08:47 36.5 C 70 18 137/88 97 04/28/24 08:32 36.5 C 72 18 104/68 96 04/28/24 08:16 36.5 C 76 18 111/62 97 04/28/24 07:28 04/28/24 07:20 80 04/28/24 07:13 77 17 96 04/28/24 03:40 36.8 C 82 22 102/62 92 O2 Del Method 04/28/24 11:07 Room Air 04/28/24 10:37 04/28/24 10:17 04/28/24 09:17 04/28/24 08:47 04/28/24 08:32 04/28/24 08:16 04/28/24 07:28 Room Air 04/28/24 07:20 04/28/24 07:13 Room Air 04/28/24 03:40 Room Air
[2024-04-28] MEDS ORDERED: cefTRIAXone SODIUM 2,000 MG/50 ML BAG IV SCH (11:45)
--- NOTE | 2024-04-28 11:53 | Gastroenterology Progress Note ---
Date of Service April 28, 2024 Assessment & Plan (1) Anemia: Plan: Patient has had a fall in his hemoglobin though there is no evidence of active bleeding he has had 2 EGDs in the last few months with different findings he is on a PPI twice daily he got 1 unit of blood this morning at the current time I would 1. Continue with PPI twice daily 2. Plan for EGD today and based upon results Priyanka will also plan for colonoscopy 3. Transfuse to keep hemoglobin above 7 Ascites Evaluated by renal who prescribed diuretics in the future may benefit from TIPS as he is requiring repeated episodes of paracentesis Cirrhosis Patient has a meld of 19 he may benefit from transplant evaluation though he was drinking until recently but still he seems quite convinced that he is going to stop drinking in the future and he may benefit from a full evaluation Thank you for allowing us to take part in the care of your patient will give further recs after EGD Admission and Anticipated Discharge Date Admission Date: April 26, 2024 Subjective Patient appears comfortable he states he has some mild discomfort in his abdomen otherwise he is feeling okay he denies any dysphagia or reflux nausea vomiting he states he had 2 bowel movements yesterday states they were dark brown in color no evidence of any GI bleeding however his hemoglobin continues to trend lower Review of Systems Constitutional: A 10 point review of systems was done Physical Exam Constitutional: Slightly cachectic male appears comfortable Neck: Supple Respiratory: Clear anteriorly Cardiovascular: Soft distended no tenderness appreciated positive for ascites Results & Data Results & Data Vital Signs (Past 12 Hours) Vital Signs Temp Pulse Pulse Resp BP BP BP 04/28/24 11:36 36.4 C L 73 18 112/73 04/28/24 11:07 77 18 04/28/24 10:37 36.3 C L 70 20 144/89 H 04/28/24 10:17 36.3 C L 70 18 144/89 H 04/28/24 09:17 71 18 107/71 04/28/24 08:47 36.5 C 70 18 137/88 04/28/24 08:32 36.5 C 72 18 104/68 04/28/24 08:16 36.5 C 76 18 111/62 04/28/24 07:28 04/28/24 07:20 80 04/28/24 07:13 77 17 04/28/24 03:40 36.8 C 82 22 102/62 Pulse Ox O2 Del Method 04/28/24 11:36 98 Room Air 04/28/24 11:07 96 Room Air 04/28/24 10:37 100 04/28/24 10:17 100 04/28/24 09:17 98 04/28/24 08:47 97 04/28/24 08:32 96 04/28/24 08:16 97 04/28/24 07:28 Room Air 04/28/24 07:20 04/28/24 07:13 96 Room Air 04/28/24 03:40 92 Room Air PG Care Time/CCT Total # of Minutes Spent Total Time Spent with Patient: Total time spent is greater than 50% in coordination of care (as documented) at patient's floor/unit and/or counseling patient: Coding Level of Care Code 18166 SUB INP/OBS CARE 2/35MIN Diagnoses Anemia D64.9
[2024-04-28] MEDS ORDERED: fentaNYL citrate PF 100 MCG/2 ML VIAL ONE (12:17)
[2024-04-28] MEDS ORDERED: PROPOFOL IV EMULSION 10 MG/ML 20 ML VIAL IV ONE (12:23)
[2024-04-28] MEDS ORDERED: LIDOCAINE 2% 2 ML VIAL/AMP(20MG/ML) INFIL ONE (12:24)
[2024-04-28] MEDS ORDERED: SUCCINYLCHOLINE CHLORIDE 20 MG/ML 10 ML VIAL IV ONE (12:24)
[2024-04-28] MEDS ORDERED: fentaNYL citrate PF 100 MCG/2 ML VIAL IV PRN (12:49)
[2024-04-28] MEDS ORDERED: ePHEDrine sulfate 50 MG/ML AMP IV PRN (12:49)
[2024-04-28] MEDS ORDERED: ATROPINE SULFATE 0.1 MG/ML 10ML SYR IV PRN (12:49)
[2024-04-28] MEDS ORDERED: ONDANSETRON INJ 2 MG/ML 2 ML VIAL IV PRN (12:49)
--- NOTE | 2024-04-28 12:49 | Anesthesiology Consultation ---
Date of Service April 28, 2024 Assessment & Plan ASA ASA4E Proposed Anesthesia Anesthesia Type: General Risk / Benefits Reviewed With: PT / POA / Parent / Guardian, Accepts Plan and Informed Consent Obtained Additional Comments: pt is not optimized but d/t dropping hemoglobin the patient needs the surgery before optimization. History Surgery Operation Date: 04/28/24 13:00 Proposed Procedures p Esophagogastroduodenoscopy - Kendall Cowan MD Height/Weight Height: 5 ft 8 in Weight: 102.4 kg Allergies Allergy/AdvReac Type Severity Reaction Status Date / Time Penicillins Allergy Unknown pt unsure Verified 04/02/24 12:32 of reaction Medications Home Medications Medication Instructions Recorded Confirmed Last Taken folic acid 1 mg tablet 1 mg PO DAILY #30 tabs 08/15/23 04/26/24 04/01/24 magnesium chloride 64 mg 64 mg PO BID #60 tabs 03/06/24 04/26/24 04/01/24 (magnesium chloride) tablet,delayed release (Mag 64) torsemide 20 mg tablet 40 mg (2 x 20 mg) PO BID #60 tabs 03/06/24 04/26/24 04/01/24 pantoprazole 40 mg tablet,delayed 40 mg PO BID 3 months #180 tabs 03/15/24 04/26/24 04/01/24 release fluticasone furoate 100 1 inh inhalation QAM 04/12/24 04/26/24 Unknown mcg/actuation blister powder for inhalation (Arnuity Ellipta) gabapentin 300 mg capsule 300 mg PO TID 04/12/24 04/26/24 Unknown lactulose 20 gram/30 mL oral 20 g (30 mL) PO BID #3,000 mL 04/15/24 04/26/24 Unknown solution midodrine 5 mg tablet 10 mg (2 x 5 mg) PO TID #180 tabs 04/15/24 04/26/24 Unknown Active Medications Generic Name Dose Route Start Last Admin Trade Name Freq PRN Reason Stop Dose Admin Albuterol 3 ml 04/26/24 19:00 04/28/24 11:07 Albut/Ipratrop 3mg/0.5mg Neb 3 Ml Vial NEB 05/26/24 18:59 3 ml QIDR GAIL Administration Protocol Fluticasone Furoate 1 puffs 04/27/24 09:00 04/28/24 08:20 Fluticasone Furoate 100mcg 14 Puffs/Inhaler INH 05/27/24 08:59 1 puffs QAM GAIL Administration Folic Acid 1 mg 04/27/24 09:00 04/28/24 08:17 Folic Acid 1 Mg Tab PO 05/27/24 08:59 Not Given DAILY GAIL Gabapentin 300 mg 04/26/24 21:00 04/28/24 08:20 Gabapentin 300 Mg Cap PO 05/26/24 20:59 300 mg TID GAIL Administration Pantoprazole Sodium 40 mg/ 10 mls @ 5 mls/min 04/26/24 21:00 04/28/24 08:20 Syringe IV 05/26/24 20:59 5 mls/min BID GAIL Administration Albumin Human 25 gm in 100 mls @ 50 mls/hr 04/27/24 15:00 04/28/24 08:43 Albumin 25% IV 04/30/24 14:59 Infused Q8H GAIL Infusion Lactulose 20 gm 04/26/24 21:00 04/28/24 08:20 Lactulose Syrup 20 Gm/30 Ml Udc PO 05/26/24 20:59 20 gm BID GAIL Administration Magnesium Chloride 64 mg 04/26/24 21:00 04/28/24 08:17 Magnesium Chloride W/Calcium 64mg Delayed Rel Tab PO 05/26/24 20:59 Not Given BID GAIL Midodrine 10 mg 04/26/24 18:00 04/28/24 12:19 Midodrine Hcl 10 Mg Tab PO 05/26/24 17:59 Not Given TID@0700,1200,1800 [facility] Miscellaneous 1 each 04/27/24 08:59 04/28/24 10:02 Remove Nicoderm Patch N/A 05/27/24 08:58 Not Given DAILY@0859 [facility] Nicotine 1 patch 04/26/24 18:30 04/28/24 08:20 Nicotine 21 Mg/24 Hr Tdsy TD 05/26/24 18:29 1 patch QAM GAIL Administration Oxycodone HCl 5 - 10 mg 04/27/24 22:42 04/27/24 23:19 Oxycodone Hcl Ir 5 Mg Tab (Immediate Release) PO 05/11/24 22:41 10 mg QID PRN Administration Pain Spironolactone 100 mg 04/27/24 11:00 04/28/24 08:20 Spironolactone 100 Mg Tab PO 05/27/24 10:59 100 mg QAM GAIL Administration Torsemide 40 mg 04/26/24 21:00 04/28/24 08:20 Torsemide 20 Mg Tab PO 05/26/24 20:59 40 mg BID GAIL Administration NPO Date Last Intake of Fluids: 04/28/24 Last Intake of Fluids Comment: sip with pills this am Date Last Intake of Solids: 04/25/24 Past Medical History Medical History Hypervolemia Symptomatic anemia hospitalized [facility] 02/26/24 for issues related to this Poor historian main details obtained from MD med record Alcoholic cirrhosis of liver with ascites hospitalized [facility] 02/26/24 for issues related to this Metabolic encephalopathy hospitalized [facility] 02/26/24 for issues related to this PAF (paroxysmal atrial fibrillation) pt denies; hospitalized [facility] 02/26/24, evaluated by tae garcia per cardio consult Esophagitis History of severe sepsis hospitalized 02/26/24, [facility] 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 per med record; hospitalized [facility] 02/26/24 for issues related to this Orthostatic hypotension "he thinks" COPD (chronic obstructive pulmonary disease) History of pneumonia 07/2023, 02/26/24, hospitalized [facility] 02/26/24 for issues related to this Chronic kidney disease, stage 4 (severe) S/P abdominal paracentesis 03/21/2024, [facility] Current every day smoker Exercise / Class Metabolic Activity II 4-5 Yardwork/Stairs/Walk up hill Past Family History Family History Mother Stroke Diabetes Other Colorectal cancer Heart disease Past Surgical History Surgical History History of esophagogastroduodenoscopy (EGD) S/P cataract extraction right eye/left History of tonsillectomy History of hernia surgery infancy Past Anesthesia History No Hx of Anesthesia Complications and No Family Hx of Anesthesia Complications History of PONV No Hx of PONV and No Hx of Motion Sickness Social History Smoking Status: Current every day smoker tobacco type: cigarettes Smoking cigarettes per day: 4 Do You Dip or Chew Tobacco: No Hx Alcohol Use: No Alcohol type: wine alcohol intake frequency: 3 or more drinks per day Hx Substance Use: No substance use type: does not use Review of Systems denies fever/cough/ colds/ chest pain/ SOB/ EMERSON denies EMERSON Physical Exam Vital Signs Last Vital Signs Temp 36.4 C L 04/28/24 11:36 Pulse 73 04/28/24 11:36 Resp 18 04/28/24 11:36 BP 112/73 04/28/24 11:36 Pulse Ox 98 04/28/24 11:36 O2 Del Method Room Air 04/28/24 11:36 ENMT Mouth: no TMJ abnormality and no dentition abnormality Thyromental Distance: > or= 3.5 Finger Breadths Mallampati Class: II Neck + facial hair; neck extension not limited Respiratory normal respiratory effort; no respiratory distress Auscultation: lungs clear to auscultation bilaterally Cardiovascular Rate/Rhythm: regular rate and regular rhythm Neurologic moves all extremities Psychiatric Orientation: alert and oriented x 3 Testing Laboratory Results 04/28/24 04:02 04/28/24 04:02 PT 12.0 Seconds (9.0-12.0) 04/28/24 04:02 INR 1.1 (0.9-1.1) 04/28/24 04:02 Urine Color Yellow 04/26/24 15:49 Urine Appearance Clear (Clear) 04/26/24 15:49 Urine pH 5.5 (4.5-7.5) 04/26/24 15:49 Ur Specific [place] 1.008 (1.000-1.030) 04/26/24 15:49 Urine Protein Negative (Negative) 04/26/24 15:49 Urine Glucose (UA) Negative (Negative) 04/26/24 15:49 Urine Ketones Negative (Negative) 04/26/24 15:49 Urine Nitrite Negative (Negative) 04/26/24 15:49 Ur Leukocyte Esterase Negative (Negative) 04/26/24 15:49 Blood Type A Negative 04/26/24 14:42 Antibody Screen NEGATIVE 04/26/24 14:42
[2024-04-28] MEDS ORDERED: STAT IV/IM STA (13:56)
--- NOTE | 2024-04-28 14:10 | GI REPORT ---
[facility] Patient: INDERJIT LO : 1970 Sex at : Male Age: 53 Years Procedure: Upper GI endoscopy Date: 04/28/2024 Attending Physician: Kendall Cowan MD Referring MD: Mike Crane Md Indications: - GI bleed Medications: - See the Anesthesia note for documentation of the administered medications Complications: - No immediate complications. Estimated Blood Loss: - Estimated blood loss was minimal. Procedure: - The egd scope was introduced through the mouth and advanced to the second part of the duodenum. Findings: - In the stomach there was old blood. There was active oozing from portal hypertensive gastropathy there was also active oozing from site of GAVE all the old blood was washed and sucked and APC was used and the GAVE as well as the area of active bleeding from the portal hypertensive gastropathy were treated with APC. 1 Hemoclip was also placed. At the end of the procedure there was no bleeding that was seen - Small esophageal varices that flattened with insufflation Impression: - Small esophageal varices that flattened with insufflation - In the stomach there was old blood. There was active oozing from portal hypertensive gastropathy there was also active oozing from site of GAVE all the old blood was washed and sucked and APC was used and the GAVE as well as the area of active bleeding from the portal hypertensive gastropathy were treated with APC. 1 Hemoclip was also placed. At the end of the procedure there was no bleeding that was seen Recommendation: - Transfer patient to ICU. Monitor H&H every 6 hours and transfuse to keep above 7. Start on octreotide bolus and then 50 mcg/h. Start on ceftriaxone. If bleeding continues would do repeat EGD and if he still continues to bleed would consider TIPS. Case discussed with primary team who will arrange transfer and implement all the orders Procedure Code(s): - 20971, Esophagogastroduodenoscopy, flexible, transoral; diagnostic, including collection of specimen(s) by brushing or washing, when performed (separate procedure) CPT(R) - 2023 copyright [employer]. All Rights Reserved. The CPT codes, CCI edits and ICD codes generated are intended as suggestions and were generated based on input data. These codes are preliminary and upon general machine operator review may be revised to meet current compliance and payer requirements. The provider is responsible for the final determination of appropriate codes, and modifiers. Kendall Cowan MD This document has been electronically signed. Note Initiated:04/28/2024 Note Completed:04/28/2024 2:09 PM \\[email or web address]\Provation\Results\LIVE\[id number]
[2024-04-28] MEDS ORDERED: OCTREOTIDE ACETATE IV STA (14:20)
--- NOTE | 2024-04-28 14:26 | Critical Care Consultation ---
Date of Consultation April 28, 2024 Assessment & Plan (1) UGIB (upper gastrointestinal bleed): Patient's status post APC and clip placement. No active signs of bleeding. Patient with 1-18 gauge IV and 1 20-gauge IV. Will ask IV team to place another 18-gauge IV if large volume resuscitation required. Repeat hemoglobin now. Then repeat CBC every 6 hours per GI recommendation. Hold antiplatelets or chemical DVT prophylaxis at this time. (2) GAVE (gastric antral vascular ectasia): Status post APC and clip as noted above. If he has significantly worsening bleeding, will recontact GI and may require intubation for airway protection. At this time he is stable. (3) Abdominal ascites: Patient with evidence of massive ascites and significant bilateral lower extremity edema. Given complex GI procedures today, will hold off on paracentesis today. Recommend IR consultation tomorrow for paracentesis. Will hold diuresis today given GRACIELA and recent GI bleeding. Should he develop worsening hypotension, will transfuse as appropriate and consider administration of albumin. (4) Hyponatremia: Stable. Likely hypervolemic hyponatremia. Continue to monitor mental status closely. Repeat BMP daily. (5) Hepatorenal syndrome: Hepatorenal syndrome appears subacute to chronic since January. Patient currently n.p.o. and unable to receive midodrine. Consider Levophed if maps drop. Plan Thank you for the consult. ICU team will continue to follow. Please call with questions. History of Present Illness Reason for Consultation: Upper GI bleed requiring close ICU monitoring Attending Physician: Mike Crane MD History of Present Illness 53-year-old male who was admitted to the hospitalist service 04/26/2024 due to concerns of decompensated liver failure related to alcoholism and symptomatic anemia. Patient is status post 4 units of packed RBCs this admission. He underwent EGD today. Small esophageal varices were noted. Old blood was noted in the stomach with active oozing from portal hypertensive gastropathy. APC was used and 1 Hemoclip was placed per the EGD note. Patient was requested to be transferred to the ICU by the fire warden for close monitoring with hemoglobins every 6 hours and transfusion to maintain hemoglobin above 7. Patient has been started on octreotide drip and ceftriaxone was also requested. His last hemoglobin was 6.6 from 04/28/2024. Platelet count of 153,000. INR is 1.1 as of today. Paracentesis completed 04/15/2024 resulted in 9.3 L of ascitic fluid removed. Chest x-ray today revealed mild patchy airspace consolidation of the left lung. Chemistries revealing for hyponatremia with a sodium of 129. Creatinine is 2.01 which is down from yesterday and the day before. AST and ALT performed yesterday are unremarkable. T. bili yesterday was 2.9. Lipase 93 performed on the . Patient endorses mild abdominal discomfort. No nausea or vomiting. No shortness of breath or chest pain. Allergies Allergy/AdvReac Type Severity Reaction Status Date / Time Penicillins Allergy Unknown pt unsure Verified 04/02/24 12:32 of reaction Home Medications Medication Instructions Recorded Confirmed Type folic acid 1 mg tablet 1 mg PO DAILY #30 tabs 08/15/23 04/26/24 Rx magnesium chloride 64 mg 64 mg PO BID #60 tabs 03/06/24 04/26/24 Rx (magnesium chloride) tablet,delayed release (Mag 64) torsemide 20 mg tablet 40 mg (2 x 20 mg) PO BID #60 tabs 03/06/24 04/26/24 Rx pantoprazole 40 mg tablet,delayed 40 mg PO BID 3 months #180 tabs 03/15/24 04/26/24 Rx release fluticasone furoate 100 1 inh inhalation QAM 04/12/24 04/26/24 History mcg/actuation blister powder for inhalation (Arnuity Ellipta) gabapentin 300 mg capsule 300 mg PO TID 04/12/24 04/26/24 History lactulose 20 gram/30 mL oral 20 g (30 mL) PO BID #3,000 mL 04/15/24 04/26/24 Rx solution midodrine 5 mg tablet 10 mg (2 x 5 mg) PO TID #180 tabs 04/15/24 04/26/24 Rx Patient History Medical History Hypervolemia Symptomatic anemia hospitalized [facility] 02/26/24 for issues related to this Poor historian main details obtained from [place] med record Alcoholic cirrhosis of liver with ascites hospitalized [facility] 02/26/24 for issues related to this Metabolic encephalopathy hospitalized [facility] 02/26/24 for issues related to this PAF (paroxysmal atrial fibrillation) pt denies; hospitalized [facility] 02/26/24, evaluated by tae garcia per cardio consult Esophagitis History of severe sepsis hospitalized 02/26/24, 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 02/26/24 for issues related to this Orthostatic hypotension "he thinks" COPD (chronic obstructive pulmonary disease) History of pneumonia 07/2023, 02/26/24, hospitalized [facility] 02/26/24 for issues related to this Chronic kidney disease, stage 4 (severe) S/P abdominal paracentesis 03/21/2024, [facility] Current every day smoker Surgical History History of esophagogastroduodenoscopy (EGD) S/P cataract extraction right eye/left History of tonsillectomy History of hernia surgery infancy Family History Mother Stroke Diabetes Other Colorectal cancer Heart disease Social History Smoking Status: Current every day smoker Tobacco Type: Cigarettes Cigarettes Per Day: 4; Second Hand Exposure: Yes; Do You Dip or Chew Tobacco: No; Tobacco Cessation Education Requested by Patient: No Hx Alcohol Use: No Hx Substance Use: No Preferred Language: Bulgarian Communication Ability: Effective Dust Puller Required: No Beliefs That Will Affect Care: None Current Living Situation: Other Current Living Situation Comment: room mate apt Feels Safe at Home: Yes Safety Concerns: Feels Safe At This Time Assistive Devices: None Review of Systems Review of Systems: All systems reviewed & are unremarkable except as noted in HPI & below Physical Exam Physical Exam: Constitutional: Patient appears to be of their stated age. Patient is in no apparent distress. Patient is well-developed. Eyes: Pupils are equal round and reactive to light. Conjunctivae are normal. Anicteric sclera. Ears nose, mouth and throat: Mallampati class 2. Normal posterior oropharynx. Uvula is midline. Neck: Trachea is midline. Visual inspection is normal. Respiratory: Diminished at the bases bilaterally. Cardiovascular: Regular rate and rhythm. No murmurs. 4+ pitting edema in the lower extremities bilaterally. Gastrointestinal: Positive fluid wave. Abdomen is very distended. Musculoskeletal: No cyanosis. Patient is able to move all extremities. Strength is 5 out of 5 in the upper and lower extremities. Skin: No rashes, warm dry and intact. Neurologic: No obvious focal neurological deficits seen. Psychiatric: Alert and oriented x3 with a euthymic affect. Results & Data Results & Data Vital Signs (Past 12 Hours) Vital Signs Temp Pulse Pulse Pulse Resp BP BP 04/28/24 14:10 87 14 123/84 04/28/24 14:00 82 14 130/80 04/28/24 13:48 36 C L 78 14 104/66 04/28/24 11:36 36.4 C L 73 18 112/73 04/28/24 11:07 77 18 04/28/24 10:37 36.3 C L 70 20 144/89 H 04/28/24 10:17 36.3 C L 70 18 144/89 H 04/28/24 09:17 71 18 107/71 04/28/24 08:47 36.5 C 70 18 137/88 04/28/24 08:32 36.5 C 72 18 104/68 04/28/24 08:16 36.5 C 76 18 111/62 04/28/24 07:28 04/28/24 07:20 80 04/28/24 07:13 77 17 04/28/24 03:40 36.8 C 82 22 BP Pulse Ox O2 Del Method O2 Flow Rate 04/28/24 14:10 93 Nasal Cannula 2 04/28/24 14:00 98 Oxymask 3 04/28/24 13:48 96 Oxymask 6 04/28/24 11:36 98 Room Air 04/28/24 11:07 96 Room Air 04/28/24 10:37 100 04/28/24 10:17 100 04/28/24 09:17 98 04/28/24 08:47 97 04/28/24 08:32 96 04/28/24 08:16 97 04/28/24 07:28 Room Air 04/28/24 07:20 04/28/24 07:13 96 Room Air 04/28/24 03:40 102/62 92 Room Air Coding Level of Care Code 27612 IN/OBS CONSULT LVL 4,60M Diagnoses UGIB (upper gastrointestinal bleed) K92.2 GAVE (gastric antral vascular ectasia) K31.819 Abdominal ascites R18.8 Hyponatremia E87.1 Hepatorenal syndrome K76.7
--- NOTE | 2024-04-28 14:41 | Anesthesiology Progress Note ---
Date of Service April 28, 2024 Anesthesia Post Procedure Vital Signs Vital Signs: Temp Pulse Pulse Pulse Resp BP BP 04/28/24 14:30 77 12 116/82 04/28/24 14:20 82 14 125/89 04/28/24 14:10 87 14 123/84 04/28/24 14:00 82 14 130/80 04/28/24 13:48 36 C L 78 14 104/66 04/28/24 11:36 36.4 C L 73 18 112/73 04/28/24 11:07 77 18 04/28/24 10:37 36.3 C L 70 20 144/89 H 04/28/24 10:17 36.3 C L 70 18 144/89 H 04/28/24 09:17 71 18 107/71 04/28/24 08:47 36.5 C 70 18 137/88 04/28/24 08:32 36.5 C 72 18 104/68 04/28/24 08:16 36.5 C 76 18 111/62 04/28/24 07:28 04/28/24 07:20 80 04/28/24 07:13 77 17 04/28/24 03:40 36.8 C 82 22 04/27/24 22:54 36.7 C 79 16 136/78 04/27/24 21:49 78 04/27/24 21:06 04/27/24 20:05 36.9 C 88 18 138/81 04/27/24 19:35 85 18 04/27/24 16:43 66 04/27/24 15:48 36.7 C 73 18 121/77 04/27/24 15:10 72 17 BP Pulse Ox O2 Del Method O2 Flow Rate 04/28/24 14:30 98 Nebulizer 04/28/24 14:20 92 Nasal Cannula 2 04/28/24 14:10 93 Nasal Cannula 2 04/28/24 14:00 98 Oxymask 3 04/28/24 13:48 96 Oxymask 6 04/28/24 11:36 98 Room Air 04/28/24 11:07 96 Room Air 04/28/24 10:37 100 04/28/24 10:17 100 04/28/24 09:17 98 04/28/24 08:47 97 04/28/24 08:32 96 04/28/24 08:16 97 04/28/24 07:28 Room Air 04/28/24 07:20 04/28/24 07:13 96 Room Air 04/28/24 03:40 102/62 92 Room Air 04/27/24 22:54 96 Room Air 04/27/24 21:49 04/27/24 21:06 Room Air 04/27/24 20:05 95 Room Air 04/27/24 19:35 94 Room Air 04/27/24 16:43 04/27/24 15:48 99 Room Air 04/27/24 15:10 96 Room Air Pain Intensity Abdomen: Pain Intensity: 4 Transfer of Care Handoff Completed per policy Notes Mental Status: alert / awake / arousable and participated in evaluation Patient Amnestic to Procedure: Yes Nausea / Vomiting: adequately controlled Pain: adequately controlled Airway Patency, RR, SpO2: stable & adequate BP & HR: stable & adequate Hydration State: stable & adequate Anesthetic Complications: no major complications apparent and Pt Satisfied with anesthetic care
[2024-04-28] MEDS: OCTREOTIDE ACETATE 500 MCG in 0.9 % SODIUM CHLORIDE 100 ML IV SCH (15:54)
[2024-04-28] MEDS: OCTREOTIDE ACETATE 50 MCG in SYRINGE 9.5 ML IV STA (15:54)
[2024-04-28 15:55] LABS: Basophils # (auto) 0.09 K/uL (0.00-0.20); Basophils % (auto) 0.8 %; Eosinophils # (auto) 0.56 K/uL (0.00-0.50); Eosinophils % (auto) 4.9 %; Hematocrit (blood only) 23.4 % (42.0-52.0); Hemoglobin 7.6 g/dl (14.0-18.0); Immature Granulocytes # (auto) 0.11 K/uL (0.01-0.20); Lymphocytes # (auto) 1.04 K/uL (1.20-3.40); Lymphocytes % (auto) 9.1 %; Mean Corpuscular Hemoglobin 30.8 pg (25.0-34.0); Mean Corpuscular Hgb Conc 32.5 g/dL (32.0-36.0); Mean Corpuscular Volume 94.7 fL (80.0-100.0); Monocytes # (auto) 0.65 K/uL (0.11-0.59); Monocytes % (auto) 5.7 %; Neutrophils # (auto) 8.97 K/uL (1.40-6.50); Neutrophils % (auto) 78.5 %; Platelet Count 142 K/uL (130-400); RDW Coefficient of Variation 17.5 % (11.5-14.5); RDW Standard Deviation 58.7 fL (36.4-46.3); Red Blood Count 2.47 M/uL (4.70-6.10); White Blood Count 11.42 K/ul (4.8-10.8)
[2024-04-28] MEDS: cefTRIAXone SODIUM 2,000 MG/50 ML BAG IV SCH (16:07)
[2024-04-28 21:49] LABS: Basophils # (auto) 0.09 K/uL (0.00-0.20); Basophils % (auto) 0.7 %; Eosinophils # (auto) 0.78 K/uL (0.00-0.50); Eosinophils % (auto) 6.5 %; Hematocrit (blood only) 22.4 % (42.0-52.0); Hemoglobin 7.8 g/dl (14.0-18.0); Immature Granulocytes # (auto) 0.11 K/uL (0.01-0.20); Immature Granulocytes % (auto) 0.9 %; Lymphocytes # (auto) 1.19 K/uL (1.20-3.40); Lymphocytes % (auto) 9.9 %; Mean Corpuscular Hemoglobin 32.2 pg (25.0-34.0); Mean Corpuscular Hgb Conc 34.8 g/dL (32.0-36.0); Mean Corpuscular Volume 92.6 fL (80.0-100.0); Mean Platelet Volume 9.8 fL (9.4-12.4); Monocytes # (auto) 0.79 K/uL (0.11-0.59); Monocytes % (auto) 6.6 %; Neutrophils % (auto) 75.4 %; Platelet Count 154 K/uL (130-400); RDW Coefficient of Variation 17.7 % (11.5-14.5); RDW Standard Deviation 58.3 fL (36.4-46.3); Red Blood Count 2.42 M/uL (4.70-6.10); White Blood Count 12.06 K/ul (4.8-10.8)
[2024-04-28 22:20] LABS: Anisocytosis Present
[2024-04-29 02:31] LABS: BUN Creatinine Ratio 36.2 (10-20); Calcium 8.7 mg/dl (8.6-10.3); Creatinine Clr Calc Pharmacy 57.3 ml/min; Est GFR (African American) 50.4 ml/min; Est GFR (Non-African American) 43.5 ml/min
[2024-04-29 02:39] LABS: Basophils # (auto) 0.07 K/uL (0.00-0.20); Basophils % (auto) 0.7 %; Eosinophils # (auto) 0.99 K/uL (0.00-0.50); Eosinophils % (auto) 10.4 %; Hematocrit (blood only) 21.7 % (42.0-52.0); Immature Granulocytes # (auto) 0.05 K/uL (0.01-0.20); Immature Granulocytes % (auto) 0.5 %; Lymphocytes # (auto) 0.88 K/uL (1.20-3.40); Lymphocytes % (auto) 9.2 %; Mean Corpuscular Hgb Conc 32.3 g/dL (32.0-36.0); Mean Platelet Volume 9.5 fL (9.4-12.4); Monocytes % (auto) 5.3 %; Neutrophils # (auto) 7.03 K/uL (1.40-6.50); Neutrophils % (auto) 73.9 %; Platelet Count 151 K/uL (130-400); RDW Coefficient of Variation 17.9 % (11.5-14.5); RDW Standard Deviation 60.8 fL (36.4-46.3); Red Blood Count 2.26 M/uL (4.70-6.10); White Blood Count 9.52 K/ul (4.8-10.8)
[2024-04-29 03:20] LABS: Polychromasia 2+
[2024-04-29 08:40] LABS: Basophils # (auto) 0.09 K/uL (0.00-0.20); Eosinophils # (auto) 0.98 K/uL (0.00-0.50); Hematocrit (blood only) 22.8 % (42.0-52.0); Hemoglobin 7.5 g/dl (14.0-18.0); Immature Granulocytes # (auto) 0.05 K/uL (0.01-0.20); Immature Granulocytes % (auto) 0.6 %; Lymphocytes # (auto) 0.86 K/uL (1.20-3.40); Lymphocytes % (auto) 9.7 %; Mean Corpuscular Hemoglobin 31.5 pg (25.0-34.0); Mean Corpuscular Hgb Conc 32.9 g/dL (32.0-36.0); Mean Corpuscular Volume 95.8 fL (80.0-100.0); Mean Platelet Volume 9.6 fL (9.4-12.4); Monocytes % (auto) 7.9 %; Neutrophils # (auto) 6.23 K/uL (1.40-6.50); Neutrophils % (auto) 69.8 %; Platelet Count 156 K/uL (130-400); RDW Coefficient of Variation 18.1 % (11.5-14.5); RDW Standard Deviation 59.8 fL (36.4-46.3); Red Blood Count 2.38 M/uL (4.70-6.10); White Blood Count 8.91 K/ul (4.8-10.8)
[2024-04-29 09:00] LABS: Polychromasia 1+
[2024-04-29] MEDS ORDERED: ALBUT/IPRATROP 3MG/0.5MG NEB 3 ML VIAL NEB PRN (09:48)
--- NOTE | 2024-04-29 09:54 | Gastroenterology Progress Note ---
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 I spent a total of 55 minutes on the date of service in review of patient's record, and previously obtained information in person and appropriate medical visit, discussion and education of plan, with patient and/or caregiver, placing orders for tests/referral/procedures as medically necessary and documentation of pertinent clinical information in patient's medical records for their visit today. Admission and Anticipated Discharge Date Admission Date: April 26, 2024 Supervising Physician Co-Signing Physician Notes I examined the patient and reviewed patient's chart , laboratory data and imaging studies. I agree with with assessment and plan of care as suggested by advanced practice provider. Subjective Pt was seen and evaluated, chart reviewed. Feeling well. Awake, alert, answering questions appropriately. Suggest last ETOH use was over three months ago when he was first notified about his liver disease. Had a brown BM this AM. No fever, chills, CP, SOB. Review of Systems Review of Systems: All other findings negative except as noted in HPI. Physical Exam Constitutional: WD/WN, vitals as above Respiratory: normal respiratory effort, lungs clear to auscultation Cardiovascular: Rate/Rhythm: regular rate and regular rhythm Gastrointestinal (Abdomen): normal bowel sounds, soft, nontender, no hepatosplenomegaly Skin: no rashes, warm and dry Results & Data Results & Data Vital Signs (Past 12 Hours) Vital Signs Temp Pulse Pulse Resp BP Pulse Ox O2 Del Method 04/29/24 09:07 36.7 C 04/29/24 09:03 75 18 95 04/29/24 09:00 108/68 04/29/24 09:00 108/68 04/29/24 09:00 108/68 04/29/24 08:54 85 14 95 Room Air 04/29/24 08:00 71 14 04/29/24 08:00 111/70 04/29/24 08:00 111/70 04/29/24 08:00 111/70 04/29/24 07:26 Room Air 04/29/24 07:12 71 16 96 Room Air 04/29/24 07:00 123/88 04/29/24 07:00 123/88 04/29/24 07:00 75 15 97 04/29/24 06:06 77 17 124/78 94 04/29/24 05:57 76 17 94 04/29/24 05:18 75 14 96 04/29/24 05:00 111/60 04/29/24 04:36 82 16 95 04/29/24 04:00 90/55 L 04/29/24 04:00 67 15 94 04/29/24 03:45 36.7 C 04/29/24 03:06 83 27 H 130/79 97 04/29/24 02:51 73 17 98 04/29/24 02:00 96/62 L 04/29/24 02:00 77 18 94 04/29/24 01:35 71 04/29/24 01:09 71 13 114/79 95 04/29/24 00:48 69 13 94 04/29/24 00:03 74 11 L 108/67 94 04/28/24 23:33 73 12 96 04/28/24 23:07 36.7 C 04/28/24 23:06 79 17 104/64 97 04/28/24 22:51 83 13 95 04/28/24 22:45 107/66 04/28/24 22:33 82 22 121/69 97 04/28/24 22:15 75 13 98/70 L 95 04/28/24 22:06 75 11 L 108/65 95 04/28/24 21:51 75 10 L 96 PG Care Time/CCT Total # of Minutes Spent Total Time Spent with Patient: Total time spent is greater than 50% in coordination of care (as documented) at patient's floor/unit and/or counseling patient: Coding Level of Care Code 92350 SUB INP/OBS CARE 3/50MIN Diagnoses Anemia D64.9 Anemia type: iron deficiency (1) Anemia Anemia type: iron deficiency
--- NOTE | 2024-04-29 10:19 | Critical Care Progress Note ---
Date of Service April 29, 2024 Assessment & Plan (1) UGIB (upper gastrointestinal bleed): Plan: H&H has remained stable. (2) GAVE (gastric antral vascular ectasia): (3) Abdominal ascites: Plan: Patient receiving serial paracentesis, plan for paracentesis today with interventional radiology (4) Hyponatremia: Plan: Stable. Likely hypervolemic hyponatremia. (5) Hepatorenal syndrome: Plan: Hepatorenal syndrome appears subacute to chronic since January. Creatinine currently improving, reinitiate midodrine when able to take p.o. Plan Critical care issues appear to have resolved stable for downgrade out of ICU Admission and Anticipated Discharge Date Admission Date: April 26, 2024 Subjective Resting comfortably in room Physical Exam Physical Exam: General: Alert. nontoxic. Skin: Warm, dry, Head: Atraumatic Ears, nose, mouth and throat: airway patent Cardiovascular: Normal peripheral perfusion Respiratory: no respiratory distress Gastrointestinal: Non distended Musculoskeletal: No deformity Results & Data Results & Data Vital Signs (Past 12 Hours) Vital Signs Temp Pulse Pulse Resp BP Pulse Ox O2 Del Method 04/29/24 09:07 36.7 C 04/29/24 09:03 75 18 95 04/29/24 09:00 108/68 04/29/24 09:00 108/68 04/29/24 09:00 108/68 04/29/24 08:54 85 14 95 Room Air 04/29/24 08:00 71 14 04/29/24 08:00 111/70 04/29/24 08:00 111/70 04/29/24 08:00 111/70 04/29/24 07:26 Room Air 04/29/24 07:12 71 16 96 Room Air 04/29/24 07:00 123/88 04/29/24 07:00 123/88 04/29/24 07:00 75 15 97 04/29/24 06:06 77 17 124/78 94 04/29/24 05:57 76 17 94 04/29/24 05:18 75 14 96 04/29/24 05:00 111/60 04/29/24 04:36 82 16 95 04/29/24 04:00 90/55 L 04/29/24 04:00 67 15 94 04/29/24 03:45 36.7 C 04/29/24 03:06 83 27 H 130/79 97 04/29/24 02:51 73 17 98 04/29/24 02:00 96/62 L 04/29/24 02:00 77 18 94 04/29/24 01:35 71 04/29/24 01:09 71 13 114/79 95 04/29/24 00:48 69 13 94 04/29/24 00:03 74 11 L 108/67 94 04/28/24 23:33 73 12 96 04/28/24 23:07 36.7 C 04/28/24 23:06 79 17 104/64 97 04/28/24 22:51 83 13 95 04/28/24 22:45 107/66 04/28/24 22:33 82 22 121/69 97 Critical Care Results & Data Vital Signs (Past 12 Hours) Vital Signs Temp Pulse Pulse Resp BP Pulse Ox O2 Del Method 04/29/24 09:07 36.7 C 04/29/24 09:03 75 18 95 04/29/24 09:00 108/68 04/29/24 09:00 108/68 04/29/24 09:00 108/68 04/29/24 08:54 85 14 95 Room Air 04/29/24 08:00 71 14 04/29/24 08:00 111/70 04/29/24 08:00 111/70 04/29/24 08:00 111/70 04/29/24 07:26 Room Air 04/29/24 07:12 71 16 96 Room Air 04/29/24 07:00 123/88 04/29/24 07:00 123/88 04/29/24 07:00 75 15 97 04/29/24 06:06 77 17 124/78 94 04/29/24 05:57 76 17 94 04/29/24 05:18 75 14 96 04/29/24 05:00 111/60 04/29/24 04:36 82 16 95 04/29/24 04:00 90/55 L 04/29/24 04:00 67 15 94 04/29/24 03:45 36.7 C 04/29/24 03:06 83 27 H 130/79 97 04/29/24 02:51 73 17 98 04/29/24 02:00 96/62 L 04/29/24 02:00 77 18 94 04/29/24 01:35 71 04/29/24 01:09 71 13 114/79 95 04/29/24 00:48 69 13 94 04/29/24 00:03 74 11 L 108/67 94 04/28/24 23:33 73 12 96 04/28/24 23:07 36.7 C 04/28/24 23:06 79 17 104/64 97 04/28/24 22:51 83 13 95 04/28/24 22:45 107/66 04/28/24 22:33 82 22 121/69 97 Lab & Micro Results (Past 24 Hours) RBC 2.38 M/uL (4.70-6.10) L 04/29/24 WBC 8.91 K/ul (4.8-10.8) 04/29/24 Hgb 7.5 g/dl (14.0-18.0) L 04/29/24 Hct 22.8 % (42.0-52.0) L 04/29/24 MCV 95.8 fL (80.0-100.0) 04/29/24 MCH 31.5 pg (25.0-34.0) 04/29/24 MCHC 32.9 g/dL (32.0-36.0) 04/29/24 RDW Standard Deviation 59.8 fL (36.4-46.3) H 04/29/24 RDW Coefficient of Variation 18.1 % (11.5-14.5) H 04/29/24 Plt Count 156 K/uL (130-400) 04/29/24 MPV 9.6 fL (9.4-12.4) 04/29/24 Neutrophils (%) (Auto) 69.8 % 04/29/24 Lymphocytes (%) (Auto) 9.7 % 04/29/24 Monocytes # (Auto) 0.70 K/uL (0.11-0.59) H 04/29/24 Eosinophils # (Auto) 0.98 K/uL (0.00-0.50) H 04/29/24 Immature Granulocyte % (Auto) 0.6 % 04/29/24 Neutrophils # (Auto) 6.23 K/uL (1.40-6.50) 04/29/24 Lymphocytes # (Auto) 0.86 K/uL (1.20-3.40) L 04/29/24 Monocytes # (Auto) 0.70 K/uL (0.11-0.59) H 04/29/24 Eosinophils # (Auto) 0.98 K/uL (0.00-0.50) H 04/29/24 Basophils # (Auto) 0.09 K/uL (0.00-0.20) 04/29/24 Immature Granulocyte # (Auto) 0.05 K/uL (0.01-0.20) 4 Polychromasia 1+ 04/29/24 Anisocytosis Present 04/28/24 Na 130 mmol/L (136-145) L 04/29/24 K 4.0 mmol/L (3.5-5.1) 04/29/24 Cl 97 mmol/L (98-107) L 04/29/24 CO2 25 mmol/L (21-32) 04/29/24 Anion Gap 8 (3-11) 04/29/24 BUN 64 mg/dl (6-23) H 04/29/24 Creatinine 1.77 mg/dl (0.6-1.4) H 04/29/24 Estimated GFR ( Amer) 50.4 ml/min 04/29/24 Estimated GFR (Non-Af Amer) 43.5 ml/min 04/29/24 BUN/Creatinine Ratio 36.2 (10-20) H 04/29/24 Glu 113 mg/dl (70-99(Fasting)) H 04/29/24 Ca 8.7 mg/dl (8.6-10.3) 04/29/24 Calcium Level 8.7 mg/dl (8.6-10.3) 04/29/24 01:57 I & O Totals 24 Hours 04/28/24 04/29/24 04/30/24 06:59 06:59 06:59 Intake Total 920 / 920 1772.483 / 1772.483 98.475 / 98.475 Output Total 900 / 900 3950 / 3950 Balance -2177.517 / -2177.517 98.475 / 98.475 Cumulative 04/26/24 12:15 thru 04/29/24 09:49 Intake Total 4120.958 Output Total 5301 Balance -1180.042 RT Ventilator Mngmt (Last Documented) Ventilator Ordered Settings Respiratory Rate 18 04/29/24 09:03 Ventilator - PT Measurements Respiratory Rate 18 Coding Level of Care Code 42765 SUB INP/OBS CARE 3/50MIN Diagnoses UGIB (upper gastrointestinal bleed) K92.2 GAVE (gastric antral vascular ectasia) K31.819 Abdominal ascites R18.8 Hyponatremia E87.1 Hepatorenal syndrome K76.7
--- NOTE | 2024-04-29 11:17 | Nephrology Progress Note ---
Date of Service April 29, 2024 Assessment & Plan Admission and Anticipated Discharge Date Admission Date: April 26, 2024 Subjective Assessment & Plan (1) GRACIELA (acute kidney injury): Advanced CKD 3B w/ actual baseline 1.9. GRACIELA due to acute blood loss anemia and decompensated cirrhosis. Creat now trending down towards baseline Continue on present dose of furosemide and spironolactone, albumin and midodrine, His BP is acceptable. Hypervolemic hyponatremia. Na+ is rising slowly and now 130 which might be as good as it gets Diuretics as above (2) Anemia: UGI bleed Status post 3 units of packed RBC transfusion on octreotide drip also. S--Overall better, making urine. Now comfortable. had emergent Scope yesterday. Physical Exam Physical Exam: General: Alert. nontoxic. Head: Atraumatic Cardiovascular: Normal peripheral perfusion Respiratory: no respiratory distress Gastrointestinal: Non distended Musculoskeletal: No deformity Results & Data Vital Signs (Past 12 Hours) Vital Signs Temp Pulse Pulse Resp BP Pulse Ox O2 Del Method 04/29/24 09:07 36.7 C 04/29/24 09:03 75 18 95 04/29/24 09:00 108/68 04/29/24 09:00 108/68 04/29/24 09:00 108/68 04/29/24 08:54 85 14 95 Room Air 04/29/24 08:00 71 14 04/29/24 08:00 111/70 04/29/24 08:00 111/70 04/29/24 08:00 111/70 04/29/24 07:26 Room Air 04/29/24 07:12 71 16 96 Room Air 04/29/24 07:00 123/88 04/29/24 07:00 123/88 04/29/24 07:00 75 15 97 04/29/24 06:06 77 17 124/78 94 04/29/24 05:57 76 17 94 04/29/24 05:18 75 14 96 04/29/24 05:00 111/60 04/29/24 04:36 82 16 95 04/29/24 04:00 90/55 L 04/29/24 04:00 67 15 94 04/29/24 03:45 36.7 C 04/29/24 03:06 83 27 H 130/79 97 04/29/24 02:51 73 17 98 04/29/24 02:00 96/62 L 04/29/24 02:00 77 18 94 04/29/24 01:35 71 04/29/24 01:09 71 13 114/79 95 04/29/24 00:48 69 13 94 04/29/24 00:03 74 11 L 108/67 94 04/28/24 23:33 73 12 96
--- NOTE | 2024-04-29 11:37 | Hospitalist Progress Note ---
Date of Service April 29, 2024 Assessment & Plan (1) Abdominal distension: (2) Alcoholic cirrhosis of liver with ascites: Plan Symptomatic anemia Possible UGI bleed Status post 4 units of packed RBC transfusion Patient presented with a hemoglobin of 6.5 Required 4 units of transfusion Underwent endoscopy on 04/28; was found to have active oozing from portal hypertensive gastropathy. Patient underwent APC and Hemoclip placement. Hemoglobin currently stable around 7.5 Currently on octreotide drip; continue Continue on Protonix Monitor CBC; transfuse if hemoglobin less than 7 Decompensated EtOH cirrhosis w/ascites Patient presented with abdominal distention History of frequent paracentesis needed for last couple of months Last paracentesis was on 04/15; had 9.3 L removed Plan for paracentesis on today On torsemide; added Aldactone as well- on hold for today Continue lactulose Hypervolemic hyponatremia GRACIELA on CKD III Progressive elevation in creatinine over the last several months Also appears to have hypervolemic hyponatremia Creatinine of 2.50 on admission; improvement noted Continue on IV albumin every 8 hours Fluid restriction of 1500cc for hyponatremia Nephrology on consult; recommend to continue diuretics, albumin DVT prophylaxis SCDs Full code Dispositionpatient is clinically stable for now; will transfer out of ICU to PCU. Time spent evaluating patient, direct bedside care, chart review, placing orders, interpretation of diagnostic studies, discussion with consultants, patient, , as well as other required patient management activities is 50 minutes Please note the above document was generated using voice recognition software. It may contain grammatical, syntax or spelling errors. Any formal questions or concerns about the content, text or information contained within the body of this dictation should be directly addressed to the provider for clarification Admission and Anticipated Discharge Date Admission Date: April 26, 2024 Subjective Patient seen and examined at bedside He is comfortable; not in distress Denies any pain or discomfort No episode of hematemesis/dark stool No significant events overnight Review of Systems Review of Systems: All systems reviewed & are unremarkable except as noted in Subjective Physical Exam Physical Exam: Constitutional: Awake, alert oriented x 3 Respiratory: normal respiratory effort, lungs clear to auscultation, no wheeze, rales, rhonchi. Normal insp/exp effort, no accessory muscle use Cardiovascular: RRR, no murmur, no edema Vessels: no JVD or carotid bruit Chest: normal inspection of chest Abdomen: Distended, nontender. Musculoskeletal: no cyanosis or clubbing, extremities motor strength 5/5 Skin: no rashes, warm and dry normal turgor Neurologic: PERRL, EOMI, accommodation nl, no face palsy, no dysarthria CN's II- XI intact bilaterally and moves all extremities Psychiatric: A+Ox3, euthymic affect Results & Data Results & Data Vital Signs (Past 12 Hours) Vital Signs Temp Pulse Pulse Resp BP Pulse Ox O2 Del Method 04/29/24 09:07 36.7 C 04/29/24 09:03 75 18 95 04/29/24 09:00 108/68 04/29/24 09:00 108/68 04/29/24 09:00 108/68 04/29/24 08:54 85 14 95 Room Air 04/29/24 08:00 71 14 04/29/24 08:00 111/70 04/29/24 08:00 111/70 04/29/24 08:00 111/70 04/29/24 07:26 Room Air 04/29/24 07:12 71 16 96 Room Air 04/29/24 07:00 123/88 04/29/24 07:00 123/88 04/29/24 07:00 75 15 97 04/29/24 06:06 77 17 124/78 94 04/29/24 05:57 76 17 94 04/29/24 05:18 75 14 96 04/29/24 05:00 111/60 04/29/24 04:36 82 16 95 04/29/24 04:00 90/55 L 04/29/24 04:00 67 15 94 04/29/24 03:45 36.7 C 04/29/24 03:06 83 27 H 130/79 97 04/29/24 02:51 73 17 98 04/29/24 02:00 96/62 L 04/29/24 02:00 77 18 94 04/29/24 01:35 71 04/29/24 01:09 71 13 114/79 95 04/29/24 00:48 69 13 94 04/29/24 00:03 74 11 L 108/67 94 04/28/24 23:33 73 12 96
--- NOTE | 2024-04-29 13:00 | Ultrasound Report ---
ULTRASOUND-GUIDED PARACENTESIS CLINICAL HISTORY: Ascites PROCEDURE: Procedure and risks were explained. Informed consent was obtained. A final timeout was com pleted. The abdomen was prepped and draped in sterile fashion. 1% buffered lidocaine was utilized for skin anesthesia. Utilizing ultrasound guidance, a 5 [place] safety centesis catheter was advanced into the left lower q uadrant pocket of ascites. Ultrasound images were obtained. A total of 9 L of ascites fluid was remov ed with 1 L sent to the lab. The catheter was removed and Band-Aid applied. The patient tolerated the procedure well. Vital signs will be monitored postprocedure. IMPRESSION: Ultrasound-guided paracentesis as above. Performed, dictated, and signed by Colten Rivas PA-C; to be co-signed by Dr. Colton Arango. Electronically signed by: Colton Arango M.D. 04/29/2024 2:53 PM
[2024-04-29 14:29] LABS: Appearance Peritoneal Fluid Slightly Hazy; Color Peritoneal Fluid Yellow; RBC Peritoneal Fluid Auto < 2000 /uL; WBC Peritoneal Fluid Auto 84 /ul (0-300)
[2024-04-29 14:47] LABS: LDH Peritoneal Fluid 58 U/L; Lipase Peritoneal Fluid 30 U/L; Total Protein Peritoneal Fluid < 3.0 gm/dl
[2024-04-29 15:01] LABS: Eosinophils, Fluid 1 %; Lymphocytes, Fluid 47 %; Mono,Macrophage,Mesothelial 50 %; Neutrophils, Fluid 2 %
[2024-04-29 16:39] LABS: Basophils # (auto) 0.09 K/uL (0.00-0.20); Basophils % (auto) 1.2 %; Eosinophils # (auto) 0.85 K/uL (0.00-0.50); Eosinophils % (auto) 10.9 %; Hematocrit (blood only) 22.2 % (42.0-52.0); Hemoglobin 7.3 g/dl (14.0-18.0); Immature Granulocytes # (auto) 0.06 K/uL (0.01-0.20); Immature Granulocytes % (auto) 0.8 %; Lymphocytes # (auto) 0.57 K/uL (1.20-3.40); Lymphocytes % (auto) 7.3 %; Mean Corpuscular Hemoglobin 31.3 pg (25.0-34.0); Mean Corpuscular Hgb Conc 32.9 g/dL (32.0-36.0); Mean Corpuscular Volume 95.3 fL (80.0-100.0); Mean Platelet Volume 9.5 fL (9.4-12.4); Monocytes # (auto) 0.51 K/uL (0.11-0.59); Monocytes % (auto) 6.5 %; Neutrophils # (auto) 5.73 K/uL (1.40-6.50); Neutrophils % (auto) 73.3 %; Platelet Count 167 K/uL (130-400); RDW Standard Deviation 59.5 fL (36.4-46.3); Red Blood Count 2.33 M/uL (4.70-6.10); White Blood Count 7.81 K/ul (4.8-10.8)
[2024-04-29 17:02] LABS: Polychromasia 1+
[2024-04-29 21:26] LABS: Basophils # (auto) 0.11 K/uL (0.00-0.20); Basophils % (auto) 1.3 %; Eosinophils # (auto) 0.94 K/uL (0.00-0.50); Eosinophils % (auto) 11.4 %; Hematocrit (blood only) 23.8 % (42.0-52.0); Hemoglobin 7.7 g/dl (14.0-18.0); Immature Granulocytes # (auto) 0.06 K/uL (0.01-0.20); Immature Granulocytes % (auto) 0.7 %; Lymphocytes # (auto) 0.83 K/uL (1.20-3.40); Lymphocytes % (auto) 10.1 %; Mean Corpuscular Hemoglobin 31.3 pg (25.0-34.0); Mean Corpuscular Hgb Conc 32.4 g/dL (32.0-36.0); Mean Corpuscular Volume 96.7 fL (80.0-100.0); Mean Platelet Volume 9.5 fL (9.4-12.4); Monocytes # (auto) 0.59 K/uL (0.11-0.59); Monocytes % (auto) 7.2 %; Neutrophils % (auto) 69.3 %; Platelet Count 172 K/uL (130-400); RDW Coefficient of Variation 18.3 % (11.5-14.5); RDW Standard Deviation 62.3 fL (36.4-46.3); Red Blood Count 2.46 M/uL (4.70-6.10); White Blood Count 8.23 K/ul (4.8-10.8)
[2024-04-29 22:22] LABS: Polychromasia 1+
[2024-04-30 04:36] LABS: Calcium 8.3 mg/dl (8.6-10.3); Creatinine Clr Calc Pharmacy 67.3 ml/min; Est GFR (African American) 63.1 ml/min; Est GFR (Non-African American) 54.5 ml/min; Potassium 3.9 mmol/L (3.5-5.1)
[2024-04-30 05:33] LABS: Hemoglobin 6.9 g/dl (14.0-18.0); Mean Corpuscular Hemoglobin 31.2 pg (25.0-34.0); Mean Corpuscular Hgb Conc 32.9 g/dL (32.0-36.0); Mean Platelet Volume 9.4 fL (9.4-12.4); Platelet Count 170 K/uL (130-400); RDW Coefficient of Variation 17.9 % (11.5-14.5); RDW Standard Deviation 58.9 fL (36.4-46.3); Red Blood Count 2.21 M/uL (4.70-6.10); White Blood Count 7.74 K/ul (4.8-10.8)
[2024-04-30 05:38] LABS: Basophils # (auto) 0.08 K/uL (0.00-0.20); Eosinophils # (auto) 1.03 K/uL (0.00-0.50); Eosinophils % (auto) 13.3 %; Immature Granulocytes # (auto) 0.05 K/uL (0.01-0.20); Immature Granulocytes % (auto) 0.6 %; Lymphocytes # (auto) 0.93 K/uL (1.20-3.40); Monocytes # (auto) 0.53 K/uL (0.11-0.59); Monocytes % (auto) 6.8 %; Neutrophils # (auto) 5.12 K/uL (1.40-6.50); Neutrophils % (auto) 66.3 %; Polychromasia 1+
[2024-04-30] MEDS ORDERED: SODIUM CHLORIDE 0.9% 250 ML IV PRN (05:41)
[2024-04-30] MEDS: TORSEMIDE 20 MG TAB PO SCH (08:59)
--- NOTE | 2024-04-30 10:15 | Nephrology Progress Note ---
Date of Service April 30, 2024 Assessment & Plan Admission and Anticipated Discharge Date Admission Date: April 26, 2024 Subjective Assessment & Plan (1) GRACIELA (acute kidney injury): Advanced CKD 3B w/ actual baseline 1.9. GRACIELA due to acute blood loss anemia and decompensated cirrhosis. Creat now trending down towards baseline Continue on present dose of furosemide and spironolactone, albumin and midodrine, His BP is acceptable. Hypervolemic hyponatremia. Na+ is rising slowly and now 133. Diuretics as above and renal function still getting better and even better than his regular baseline. (2) Anemia: UGI bleed Status post 3 units of packed RBC transfusion on octreotide drip also. hgb < 7 again and getting PRBC S--Overall better, making urine. Had paracentesis yesterday. Feels better with abdomen. Now comfortable. hgb dropped again < 7 and getting PRBC. Physical Exam Physical Exam: General: Alert. nontoxic. Head: Atraumatic Cardiovascular: s1 and s2. edema 1+ Respiratory: no respiratory distress Gastrointestinal: Non distended Musculoskeletal: No deformity Results & Data Vital Signs (Past 12 Hours) Vital Signs Temp Pulse Resp BP Pulse Ox O2 Del Method 04/30/24 09:00 36.9 C 72 96 Room Air 04/30/24 09:00 102/73 04/30/24 08:30 Room Air 04/30/24 08:00 63 97 04/30/24 06:00 103/53 L 04/30/24 06:00 73 15 103/53 L 97 04/30/24 05:06 65 12 94 04/30/24 05:00 92/53 L 04/30/24 04:54 65 12 95 04/30/24 04:12 71 12 94 04/30/24 04:00 36.4 C L 95/56 L 04/30/24 03:54 68 14 94 04/30/24 03:00 64 13 95 04/30/24 03:00 101/62 04/30/24 02:00 105/68 04/30/24 02:00 64 17 98 04/30/24 01:00 110/67 04/30/24 01:00 66 16 98 04/30/24 00:00 113/74 04/30/24 00:00 36.9 C 66 14 113/74 95 04/29/24 23:09 69 16 97 04/29/24 23:07 68
--- NOTE | 2024-04-30 12:22 | Hospitalist Progress Note ---
Date of Service April 30, 2024 Assessment & Plan (1) Abdominal distension: (2) Alcoholic cirrhosis of liver with ascites: Plan Symptomatic anemia UGI bleed Secondary to portal gastropathy Status post 4 units of packed RBC transfusion Patient presented with a hemoglobin of 6.5 Required 4 units of transfusion Underwent endoscopy on 04/28; was found to have active oozing from portal hypertensive gastropathy. Patient underwent APC and Hemoclip placement. Hemoglobin today of 6.9; no active signs or symptoms of bleeding. Continue octreotide drip, Protonix On empiric antibiotic with ceftriaxone Will transfuse 1 unit of blood. Continue to monitor CBC; transfuse if hemoglobin less than 7 Decompensated EtOH cirrhosis w/ascites Patient presented with abdominal distention History of frequent paracentesis needed for last couple of months Last paracentesis was on 04/15; had 9.3 L removed Had paracentesis done on 04/29; 9 L fluid taken off Reviewed peritoneal fluid analysis; no suggestion of SBP. Continue on torsemide and Aldactone Continue on lactulose Hypervolemic hyponatremia GRACIELA on CKD III Progressive elevation in creatinine over the last several months Also appears to have hypervolemic hyponatremia Creatinine of 2.50 on admission; improvement noted Fluid restriction of 1500cc for hyponatremia Nephrology on consult; recommend to continue diuretics, albumin DVT prophylaxis SCDs Full code DispositionCurrently on octreotide drip, IV Protonix. He will receive 1 unit of blood today. Monitor for any signs of rebleeding. Time spent evaluating patient, direct bedside care, chart review, placing orders, interpretation of diagnostic studies, discussion with consultants, patient, , as well as other required patient management activities is 50 minutes Please note the above document was generated using voice recognition software. It may contain grammatical, syntax or spelling errors. Any formal questions or concerns about the content, text or information contained within the body of this dictation should be directly addressed to the provider for clarification Admission and Anticipated Discharge Date Admission Date: April 26, 2024 Subjective Patient seen and examined at bedside He is comfortable; not in distress He reports that he is feeling much better compared to previous days No significant events overnight Review of Systems Review of Systems: All systems reviewed & are unremarkable except as noted in Subjective Physical Exam Physical Exam: Constitutional: Awake, alert oriented x 3 Respiratory: normal respiratory effort, lungs clear to auscultation, no wheeze, rales, rhonchi. Normal insp/exp effort, no accessory muscle use Cardiovascular: RRR, no murmur, no edema Vessels: no JVD or carotid bruit Chest: normal inspection of chest Abdomen:less distended compared to yesterday. Nontender Musculoskeletal: no cyanosis or clubbing, extremities motor strength 5/5 Skin: no rashes, warm and dry normal turgor Neurologic: PERRL, EOMI, accommodation nl, no face palsy, no dysarthria CN's II- XI intact bilaterally and moves all extremities Psychiatric: A+Ox3, euthymic affect Results & Data Results & Data Vital Signs (Past 12 Hours) Vital Signs Temp Pulse Resp BP Pulse Ox 04/30/24 06:00 103/53 L 04/30/24 06:00 73 15 103/53 L 97 04/30/24 05:06 65 12 94 04/30/24 05:00 92/53 L 04/30/24 04:54 65 12 95 04/30/24 04:12 71 12 94 04/30/24 04:00 36.4 C L 95/56 L 04/30/24 03:54 68 14 94 04/30/24 03:00 64 13 95 04/30/24 03:00 101/62 04/30/24 02:00 105/68 04/30/24 02:00 64 17 98 04/30/24 01:00 110/67 04/30/24 01:00 66 16 98 04/30/24 00:00 113/74 04/30/24 00:00 36.9 C 66 14 113/74 95 04/29/24 23:09 69 16 97 04/29/24 23:07 68 04/29/24 22:03 71 13 97 04/29/24 22:00 111/70 04/29/24 22:00 111/70 04/29/24 21:54 72 15 98 04/29/24 21:06 71 13 99 04/29/24 21:00 126/82 04/29/24 20:57 71 15 98 04/29/24 20:00 116/93 04/29/24 20:00 77 17 99
[2024-04-30 16:13] LABS: Basophils # (auto) 0.09 K/uL (0.00-0.20); Basophils % (auto) 1.1 %; Eosinophils # (auto) 1.02 K/uL (0.00-0.50); Eosinophils % (auto) 12.5 %; Hematocrit (blood only) 24.8 % (42.0-52.0); Hemoglobin 8.3 g/dl (14.0-18.0); Immature Granulocytes # (auto) 0.04 K/uL (0.01-0.20); Immature Granulocytes % (auto) 0.5 %; Lymphocytes # (auto) 0.81 K/uL (1.20-3.40); Lymphocytes % (auto) 9.9 %; Mean Corpuscular Hemoglobin 31.8 pg (25.0-34.0); Mean Corpuscular Hgb Conc 33.5 g/dL (32.0-36.0); Mean Platelet Volume 9.4 fL (9.4-12.4); Monocytes # (auto) 0.69 K/uL (0.11-0.59); Monocytes % (auto) 8.4 %; Neutrophils # (auto) 5.52 K/uL (1.40-6.50); Neutrophils % (auto) 67.6 %; Platelet Count 162 K/uL (130-400); RDW Coefficient of Variation 17.9 % (11.5-14.5); RDW Standard Deviation 59.1 fL (36.4-46.3); Red Blood Count 2.61 M/uL (4.70-6.10); White Blood Count 8.17 K/ul (4.8-10.8)
[2024-05-01 09:05] LABS: Basophils # (auto) 0.07 K/uL (0.00-0.20); Basophils % (auto) 0.8 %; Eosinophils # (auto) 1.02 K/uL (0.00-0.50); Eosinophils % (auto) 12.1 %; Hematocrit (blood only) 24.2 % (42.0-52.0); Hemoglobin 7.9 g/dl (14.0-18.0); Immature Granulocytes # (auto) 0.05 K/uL (0.01-0.20); Immature Granulocytes % (auto) 0.6 %; Lymphocytes # (auto) 1.12 K/uL (1.20-3.40); Lymphocytes % (auto) 13.3 %; Mean Corpuscular Hemoglobin 31.5 pg (25.0-34.0); Mean Corpuscular Hgb Conc 32.6 g/dL (32.0-36.0); Mean Corpuscular Volume 96.4 fL (80.0-100.0); Mean Platelet Volume 9.7 fL (9.4-12.4); Monocytes # (auto) 0.71 K/uL (0.11-0.59); Monocytes % (auto) 8.4 %; Neutrophils # (auto) 5.47 K/uL (1.40-6.50); Neutrophils % (auto) 64.8 %; Platelet Count 165 K/uL (130-400); RDW Coefficient of Variation 18.2 % (11.5-14.5); RDW Standard Deviation 61.3 fL (36.4-46.3); Red Blood Count 2.51 M/uL (4.70-6.10); White Blood Count 8.44 K/ul (4.8-10.8)
[2024-05-01 09:33] LABS: BUN Creatinine Ratio 27.2 (10-20); Calcium 8.3 mg/dl (8.6-10.3); Creatinine Clr Calc Pharmacy 62.4 ml/min; Est GFR (African American) 61.1 ml/min; Est GFR (Non-African American) 52.7 ml/min; Potassium 3.9 mmol/L (3.5-5.1)
[2024-05-01 09:37] LABS: Polychromasia 1+
--- NOTE | 2024-05-01 17:16 | Hospitalist Progress Note ---
Date of Service May 01, 2024 Assessment & Plan (1) Abdominal distension: (2) Alcoholic cirrhosis of liver with ascites: Plan Symptomatic anemia Upper GI bleed Secondary to portal gastropathy S/P 5 units PRBCs S/P Endoscopy on 04/28; was found to have active oozing from portal hypertensive gastropathy. Patient underwent APC and Hemoclip placement. -- Octreotide, Protonix drip discontinued Transition IV Protonix to p.o. tomorrow Monitor H&H and transfuse as needed Empirically on IV Rocephin Appreciate GI input Advance diet as tolerated Decompensated EtOH cirrhosis w/ascites Patient presented with abdominal distention H/O frequent paracentesis needed for last couple of months Had paracentesis done on 04/29; 9 L fluid taken off Reviewed peritoneal fluid analysis; no signs of SBP Peritoneal fluid culture negative to date Continue lactulose, diuretics Hypervolemic hyponatremia GRACIELA on CKD III Creatinine levels improving Continue torsemide, spironolactone, albumin and midodrine Sodium improved to 133 Appreciate nephrology input Monitor renal function, electrolytes Also on fluid restriction DVT Px: SCDs Re:GI bleed Code Status Full code Disposition Likely discharge home when stable Admission and Anticipated Discharge Date Admission Date: April 26, 2024 Subjective Patient is seen and examined at bedside States feeling better today Denies any recurrence of bleeding Also denies any chest pain, dyspnea, nausea, vomiting, abdominal pain On IV octreotide Review of Systems Review of Systems: All systems reviewed & are unremarkable except as noted in Subjective Physical Exam Physical Exam: Physical Exam: Vitals signs as noted above General Appearance:Moderately built and nourished, chronically ill appearing, no apparent distress Head: normocephalic, Atraumatic Eyes: normal inspection, EOMI Neck: supple, Trachea midline Respiratory/Chest: Normal breath sounds, CTA, No accessory muscle use Cardiovascular: S1, S2, No murmur Abdomen/GI:Soft, Non tender, mildly distended, bowel sounds present Extremities/Musculoskeletal:normal inspection, 1+ edema Neurologic/Psych:AAOX3, grossly no focal neurological deficits Skin: normal color, warm Results & Data Results & Data Vital Signs (Past 12 Hours) Vital Signs Temp Pulse Pulse Resp BP BP Pulse Ox 05/01/24 15:15 36.7 C 64 16 142/88 H 100 05/01/24 11:05 36.8 C 64 14 130/85 96 05/01/24 09:05 05/01/24 07:33 37.0 C 58 L 16 106/72 95 05/01/24 06:34 64 O2 Del Method O2 Flow Rate 05/01/24 15:15 Room Air 05/01/24 11:05 Room Air 05/01/24 09:05 Room Air, Nasal Cannula 2 05/01/24 07:33 Room Air 05/01/24 06:34 Laboratory Results Short CBC 05/01/24 Range/Units 06:26 WBC 8.44 (4.8-10.8) K/ul Hgb 7.9 L (14.0-18.0) g/dl Hct 24.2 L (42.0-52.0) % Plt Count 165 (130-400) K/uL BMP 05/01/24 06:26 Sodium 133 L Potassium 3.9 Chloride 99 Carbon Dioxide 27 BUN 41 H Creatinine 1.51 H Glucose 118 H Calcium 8.3 L
[2024-05-02 06:08] LABS: Hematocrit (blood only) 24.2 % (42.0-52.0); Hemoglobin 7.8 g/dl (14.0-18.0)
[2024-05-02 06:21] LABS: BUN Creatinine Ratio 21.8 (10-20); Calcium 8.2 mg/dl (8.6-10.3); Potassium 3.9 mmol/L (3.5-5.1)
--- NOTE | 2024-05-02 09:40 | Nephrology Progress Note ---
Date of Service May 02, 2024 Assessment & Plan Admission and Anticipated Discharge Date Admission Date: April 26, 2024 Subjective Assessment & Plan (1) GRCAIELA (acute kidney injury): Advanced CKD 3B w/ actual baseline 1.9. GRACIELA due to acute blood loss anemia and decompensated cirrhosis. Creat now trending down towards baseline Continue on present dose of furosemide and spironolactone, albumin and midodrine, His BP is acceptable. Hypervolemic hyponatremia. Na+ is 131--acceptable for him. Diuretics as above for now. renal function again worsening with creat rising for last 2 days and now 1.9. started getting worse after big drop in hgb to <7 on 04/30/2024 this type of Acute drop can be enough to cause ATN in succeptible liver cirrhosis patient. But his baseline creat pre admission was around 1.9 so not much has changed. has a lot of edema also so will continue current Diuretics at same dose.. will decide about discharge based on labs tomorrow (2) Anemia: UGI bleed Status post 3 units of packed RBC transfusion Multiple PRBC done. S--Overall better, making urine. Had paracentesis yesterday. Feels better with abdomen. Now comfortable. hgb dropped again < 7 and getting PRBC. Physical Exam Physical Exam: General: Alert. nontoxic. Head: Atraumatic Cardiovascular: s1 and s2. edema 1+ Respiratory: no respiratory distress Gastrointestinal: Non distended Musculoskeletal: No deformity Results & Data Vital Signs (Past 12 Hours) Vital Signs Temp Pulse Pulse Resp BP BP Pulse Ox 05/02/24 08:05 37.0 C 70 17 107/71 94 05/02/24 07:00 57 L 05/02/24 03:10 37.0 C 69 16 111/77 94 05/01/24 23:08 36.7 C 65 15 116/75 98 05/01/24 22:35 61 O2 Del Method 05/02/24 08:05 Room Air 05/02/24 07:00 05/02/24 03:10 Room Air 05/01/24 23:08 Room Air 05/01/24 22:35
--- NOTE | 2024-05-02 14:23 | Hospitalist Progress Note ---
Date of Service May 02, 2024 Assessment & Plan (1) Abdominal distension: (2) Alcoholic cirrhosis of liver with ascites: Plan Symptomatic anemia Upper GI bleed Secondary to portal gastropathy S/P 5 units PRBCs S/P Endoscopy on 04/28; was found to have active oozing from portal hypertensive gastropathy. Patient underwent APC and Hemoclip placement. -- Octreotide, Protonix drip discontinued Continue p.o. Protonix 40 mg twice a day Monitor H&H and transfuse as needed Empirically received IV Rocephin for 5 days Appreciate GI input Tolerating regular diet Hb stable Decompensated EtOH cirrhosis w/ascites Patient presented with abdominal distention H/O frequent paracentesis needed for last couple of months Had paracentesis done on 04/29; 9 L fluid taken off Reviewed peritoneal fluid analysis; no signs of SBP Peritoneal fluid culture negative to date Continue lactulose, diuretics Appreciate nephrology help with diuresis Hypervolemic hyponatremia GRACIELA on CKD III Cr 1.9 today Continue torsemide, spironolactone, albumin and midodrine Sodium improved to 131 today Appreciate nephrology input Monitor renal function, electrolytes Also on fluid restriction DVT Px: SCDs Re:GI bleed Code Status Full code Disposition Likely discharge tomorrow if renal function stable Admission and Anticipated Discharge Date Admission Date: April 26, 2024 Subjective Patient is seen and examined at bedside Subjectively feels well Noted rising creatinine levels Discussed with nephrology today Denies any recurrence of bleeding, chest pain, dyspnea, nausea, vomiting, abdominal pain Review of Systems Review of Systems: All systems reviewed & are unremarkable except as noted in Subjective Physical Exam Physical Exam: Physical Exam: Vitals signs as noted above General Appearance:Moderately built and nourished, chronically ill appearing, no apparent distress Head: normocephalic, Atraumatic Eyes: normal inspection, EOMI Neck: supple, Trachea midline Respiratory/Chest: Normal breath sounds, CTA, No accessory muscle use Cardiovascular: S1, S2, No murmur Abdomen/GI:Soft, Non tender, mildly distended, bowel sounds present Extremities/Musculoskeletal:normal inspection, 1+ edema Neurologic/Psych:AAOX3, grossly no focal neurological deficits Skin: normal color, warm Results & Data Results & Data Vital Signs (Past 12 Hours) Vital Signs Temp Pulse Pulse Pulse Resp BP BP 05/02/24 11:03 36.5 C 62 16 113/73 05/02/24 10:17 05/02/24 08:05 37.0 C 70 17 107/71 05/02/24 07:00 57 L 05/02/24 03:10 37.0 C 69 16 111/77 Pulse Ox O2 Del Method 05/02/24 11:03 96 Room Air 05/02/24 10:17 Room Air 05/02/24 08:05 94 Room Air 05/02/24 07:00 05/02/24 03:10 94 Room Air Laboratory Results Short CBC 05/02/24 Range/Units 05:47 Hgb 7.8 L (14.0-18.0) g/dl Hct 24.2 L (42.0-52.0) % BMP 05/02/24 05:47 Sodium 131 L Potassium 3.9 Chloride 99 Carbon Dioxide 26 BUN 42 H Creatinine 1.93 H D Glucose 99 Calcium 8.2 L
[2024-05-02] MEDS: PANTOprazole 40 MG TAB PO SCH (21:00)
[2024-05-03 07:58] LABS: Hematocrit (blood only) 26.4 % (42.0-52.0); Hemoglobin 8.6 g/dl (14.0-18.0)
[2024-05-03 08:10] LABS: BUN Creatinine Ratio 19.3 (10-20); Calcium 8.5 mg/dl (8.6-10.3); Creatinine Clr Calc Pharmacy 39.7 ml/min; Potassium 4.1 mmol/L (3.5-5.1)
--- NOTE | 2024-05-03 09:43 | Nephrology Progress Note ---
Date of Service May 03, 2024 Assessment & Plan Admission and Anticipated Discharge Date Admission Date: April 26, 2024 Subjective Assessment & Plan (1) GRACIELA (acute kidney injury): Advanced CKD 3B w/ actual baseline 1.9. GRACIELA due to acute blood loss anemia and decompensated cirrhosis. Creat now trending down towards baseline Continue on present dose of furosemide and spironolactone, albumin and midodrine, His BP is acceptable. Hypervolemic hyponatremia. Na+ is 130--acceptable for him. renal function again worsening with creat rising for last 3 days and now 2.3. started getting worse after big drop in hgb to <7 on 04/30/2024 this type of Acute drop can be enough to cause ATN in susceptible liver cirrhosis patient. But his baseline creat pre admission was around 1.9 so not much has changed. Still has a lot of edema. already got morning demadex dose. Will pause torsemide and Aldactone for now. give 25 Albumin 3 doses. No discharge today. (2) Anemia: UGI bleed Status post 3 units of packed RBC transfusion Multiple PRBC done. S--Labs worsening. making urine. Had paracentesis yesterday. Feels better with abdomen. Now comfortable. hgb dropped again < 7 and getting PRBC. Physical Exam Physical Exam: General: Alert. nontoxic. Head: Atraumatic Cardiovascular: s1 and s2. edema 1+ Respiratory: no respiratory distress Gastrointestinal: Non distended Musculoskeletal: No deformity Results & Data Vital Signs (Past 12 Hours) Vital Signs Temp Pulse Resp BP Pulse Ox O2 Del Method 05/03/24 07:27 36.6 C 62 16 126/85 94 Room Air
[2024-05-03] MEDS: ALBUMIN 25% 25 GM/100 ML VIAL IV SCH (10:09)
--- NOTE | 2024-05-03 16:47 | Hospitalist Progress Note ---
Date of Service May 03, 2024 Assessment & Plan (1) Abdominal distension: (2) Alcoholic cirrhosis of liver with ascites: Plan Symptomatic anemia Upper GI bleed Secondary to portal gastropathy S/P 5 units PRBCs S/P Endoscopy on 04/28; was found to have active oozing from portal hypertensive gastropathy. Patient underwent APC and Hemoclip placement. -- Octreotide, Protonix drip discontinued Continue p.o. Protonix 40 mg twice a day Monitor H&H and transfuse as needed Empirically received IV Rocephin for 5 days Appreciate GI input Tolerating regular diet Hb stable 8.6 today Decompensated EtOH cirrhosis w/ascites Patient presented with abdominal distention H/O frequent paracentesis needed for last couple of months Had paracentesis done on 04/29; 9 L fluid taken off Reviewed peritoneal fluid analysis; no signs of SBP Peritoneal fluid culture negative to date Continue lactulose Appreciate nephrology help with diuresis Diuretics held due to worsening renal function Hypervolemic hyponatremia GRACIELA on CKD III likely ATN Cr 2.3 today Continue torsemide, spironolactone, albumin and midodrine Sodium improved to 130 today Appreciate nephrology input Monitor renal function, electrolytes Also on fluid restriction Diuretics held IV albumin per nephrology DVT Px: SCDs Re:GI bleed Code Status Full code Disposition Home as able Admission and Anticipated Discharge Date Admission Date: April 26, 2024 Subjective Patient is seen and examined at bedside Renal function continues to worsen Discussed with nephrology today Patient subjectively feels tired but otherwise no complaints Eager to get discharged Denies any recurrence of bleeding, chest pain, dyspnea, nausea, vomiting, abdominal pain Review of Systems Review of Systems: All systems reviewed & are unremarkable except as noted in Subjective Physical Exam Physical Exam: Physical Exam: Vitals signs as noted above General Appearance:Moderately built and nourished, chronically ill appearing, no apparent distress Head: normocephalic, Atraumatic Eyes: normal inspection, EOMI Neck: supple, Trachea midline Respiratory/Chest: Normal breath sounds, CTA, No accessory muscle use Cardiovascular: S1, S2, No murmur Abdomen/GI:Soft, Non tender, mildly distended, bowel sounds present Extremities/Musculoskeletal:normal inspection, 1+ edema Neurologic/Psych:AAOX3, grossly no focal neurological deficits Skin: normal color, warm Results & Data Results & Data Vital Signs (Past 12 Hours) Vital Signs Temp Pulse Resp BP Pulse Ox O2 Del Method 05/03/24 15:48 36.9 C 65 16 115/70 97 Room Air 05/03/24 10:30 36.8 C 62 18 114/75 98 Room Air 05/03/24 07:50 Room Air 05/03/24 07:27 36.6 C 62 16 126/85 94 Room Air Laboratory Results Short CBC 05/03/24 Range/Units 07:17 Hgb 8.6 L (14.0-18.0) g/dl Hct 26.4 L (42.0-52.0) % BMP 05/03/24 07:17 Sodium 130 L Potassium 4.1 Chloride 96 L Carbon Dioxide 28 BUN 45 H Creatinine 2.33 H D Glucose 108 H Calcium 8.5 L
[2024-05-03 23:30] VITALS: RESP 16
[2024-05-04 08:00] LABS: Hemoglobin 7.4 g/dl (14.0-18.0)
[2024-05-04 08:43] LABS: Calcium 8.5 mg/dl (8.6-10.3)
[2024-05-04 08:49] LABS: BUN Creatinine Ratio 20.1 (10-20); Creatinine Clr Calc Pharmacy 40.8 ml/min
--- NOTE | 2024-05-04 16:41 | Hospitalist Progress Note ---
Date of Service May 04, 2024 Assessment & Plan (1) Abdominal distension: (2) Alcoholic cirrhosis of liver with ascites: Plan Symptomatic anemia Upper GI bleed Secondary to portal gastropathy S/P 5 units PRBCs S/P Endoscopy on 04/28; was found to have active oozing from portal hypertensive gastropathy. Patient underwent APC and Hemoclip placement. -- Octreotide, Protonix drip discontinued Continue p.o. Protonix 40 mg twice a day Monitor H&H and transfuse as needed Empirically received IV Rocephin for 5 days Appreciate GI input Tolerating regular diet Hb dropped to 7.4 today likely dilutional Denies any bleeding issues currently Monitor CBC Decompensated EtOH cirrhosis w/ascites Patient presented with abdominal distention H/O frequent paracentesis needed for last couple of months Had paracentesis done on 04/29; 9 L fluid taken off Reviewed peritoneal fluid analysis; no signs of SBP Peritoneal fluid culture negative to date Continue lactulose Appreciate nephrology help with diuresis Diuretics held due to worsening renal function Continue IV albumin per nephrology Hypervolemic hyponatremia GRACIELA on CKD III likely ATN Cr 2.29 today Continue torsemide, spironolactone, albumin and midodrine Sodium improved to 130 today Appreciate nephrology input Monitor renal function, electrolytes Also on fluid restriction Diuretics held On IV albumin per nephrology DVT Px: SCDs Re:GI bleed Code Status Full code Disposition Home as able Admission and Anticipated Discharge Date Admission Date: April 26, 2024 Subjective Patient is seen and examined at bedside Subjectively feels well No new complaints today Discussed with nephrology today Renal function no significant improvement Denies any recurrence of bleeding, chest pain, dyspnea, nausea, vomiting, abdominal pain Review of Systems Review of Systems: All systems reviewed & are unremarkable except as noted in Subjective Physical Exam Physical Exam: Physical Exam: Vitals signs as noted above General Appearance:Moderately built and nourished, chronically ill appearing, no apparent distress Head: normocephalic, Atraumatic Eyes: normal inspection, EOMI Neck: supple, Trachea midline Respiratory/Chest: Normal breath sounds, CTA, No accessory muscle use Cardiovascular: S1, S2, No murmur Abdomen/GI:Soft, Non tender, mildly distended, bowel sounds present Extremities/Musculoskeletal:normal inspection, 1+ edema Neurologic/Psych:AAOX3, grossly no focal neurological deficits Skin: normal color, warm Results & Data Results & Data Vital Signs (Past 12 Hours) Vital Signs Temp Pulse Resp BP Pulse Ox O2 Del Method 05/04/24 15:19 36.9 C 67 16 104/65 95 Room Air 05/04/24 11:26 Room Air 05/04/24 07:23 36.7 C 67 16 104/61 95 Room Air Laboratory Results Short CBC 05/04/24 Range/Units 06:43 Hgb 7.4 L (14.0-18.0) g/dl Hct 23.0 L (42.0-52.0) % BMP 05/04/24 06:43 Sodium 130 L Potassium 4.0 Chloride 96 L Carbon Dioxide 27 BUN 46 H Creatinine 2.29 H Glucose 119 H Calcium 8.5 L
[2024-05-05 07:28] LABS: Hematocrit (blood only) 22.8 % (42.0-52.0); Hemoglobin 7.4 g/dl (14.0-18.0)
[2024-05-05 07:41] LABS: BUN Creatinine Ratio 24.5 (10-20); Calcium 8.8 mg/dl (8.6-10.3); Creatinine Clr Calc Pharmacy 50.8 ml/min; Potassium 4.1 mmol/L (3.5-5.1)
[2024-05-05 15:27] VITALS: BP 114/64; PULSE 76; TEMP 97.9; O2SAT 93
--- NOTE | 2024-05-05 15:57 | Hospitalist Progress Note ---
Date of Service May 05, 2024 Assessment & Plan (1) Abdominal distension: (2) Alcoholic cirrhosis of liver with ascites: Plan Symptomatic anemia Upper GI bleed Secondary to portal gastropathy S/P 5 units PRBCs S/P Endoscopy on 04/28; was found to have active oozing from portal hypertensive gastropathy. Patient underwent APC and Hemoclip placement. -- Octreotide, Protonix drip discontinued Continue p.o. Protonix 40 mg twice a day Monitor H&H and transfuse as needed Empirically received IV Rocephin for 5 days Appreciate GI input Tolerating regular diet Denies any recurrence of bleeding issues Monitor CBC Will need outpatient blood work on discharge Decompensated EtOH cirrhosis w/ascites Patient presented with abdominal distention H/O frequent paracentesis needed for last couple of months Had paracentesis done on 04/29; 9 L fluid taken off Reviewed peritoneal fluid analysis; no signs of SBP Peritoneal fluid culture negative to date Continue lactulose Appreciate nephrology help with diuresis Diuretics held transiently due to worsening renal function Creatinine levels improved Received IV albumin Discussed with nephrology on 05/05/2024: Plan to resume home torsemide 40 mg twice a day on discharge Needs follow-up with nephrology on discharge Hypervolemic hyponatremia GRACIELA on CKD III likely ATN Cr 1.8 today Continue torsemide, spironolactone, albumin and midodrine Sodium improved to 131 today Appreciate nephrology input Monitor renal function, electrolytes Also on fluid restriction Diuretics held Slowly improving DVT Px: SCDs Re:GI bleed Code Status Full code Disposition Home as able Admission and Anticipated Discharge Date Admission Date: April 26, 2024 Subjective Patient is seen and examined at bedside Doing well No new complaints Creatinine function improving Will discuss with nephrology today Denies any recurrence of bleeding, chest pain, dyspnea, nausea, vomiting, abdominal pain Review of Systems Review of Systems: All systems reviewed & are unremarkable except as noted in Subjective Physical Exam Physical Exam: Physical Exam: Vitals signs as noted above General Appearance:Moderately built and nourished, chronically ill appearing, no apparent distress Head: normocephalic, Atraumatic Eyes: normal inspection, EOMI Neck: supple, Trachea midline Respiratory/Chest: Normal breath sounds, CTA, No accessory muscle use Cardiovascular: S1, S2, No murmur Abdomen/GI:Soft, Non tender, mildly distended, bowel sounds present Extremities/Musculoskeletal:normal inspection, 1+ edema Neurologic/Psych:AAOX3, grossly no focal neurological deficits Skin: normal color, warm Results & Data Results & Data Vital Signs (Past 12 Hours) Vital Signs Temp Pulse Resp BP Pulse Ox O2 Del Method 05/05/24 15:26 36.6 C 76 16 114/64 93 Room Air 05/05/24 07:30 36.3 C L 70 16 111/70 95 Room Air Laboratory Results Short CBC 05/05/24 Range/Units 06:35 Hgb 7.4 L (14.0-18.0) g/dl Hct 22.8 L (42.0-52.0) % BMP 05/05/24 06:35 Sodium 131 L Potassium 4.1 Chloride 97 L Carbon Dioxide 28 BUN 45 H Creatinine 1.84 H D Glucose 98 Calcium 8.8
--- NOTE | 2024-05-05 16:00 | Nephrology Progress Note ---
Date of Service May 05, 2024 Assessment & Plan Admission and Anticipated Discharge Date Admission Date: April 26, 2024 Subjective Assessment & Plan (1) GRACIELA (acute kidney injury): Advanced CKD 3B w/ actual baseline 1.9. GRACIELA due to acute blood loss anemia and decompensated cirrhosis. Creat now trending down towards baseline Continue on present dose of furosemide and spironolactone, albumin and midodrine, His BP is acceptable. Hypervolemic hyponatremia. Na+ is 130--acceptable for him. renal function again worsened but now back to baseline of 1.9. second Bill of creat got worse after big drop in hgb to <7 on 04/30/2024 this type of Acute drop can be enough to cause ATN in susceptible liver cirrhosis patient. But his baseline creat pre admission was around 1.9 so not much has changed. Still has a lot of edema. he can be discharged: same dose of torsemide as before. He was not on Aldactone pre admission so dont do that. needs labs and f/u with PCP this week. (2) Anemia: UGI bleed Status post 3 units of packed RBC transfusion Multiple PRBC done. S--renal labs better now. making urine. Had paracentesis yesterday.has edema and ascites and wants to go home. Physical Exam Physical Exam: General: Alert. nontoxic. Head: Atraumatic Cardiovascular: s1 and s2. edema 1+ Respiratory: no respiratory distress Gastrointestinal: Non distended Musculoskeletal: No deformity Results & Data Vital Signs (Past 12 Hours) Vital Signs Temp Pulse Resp BP Pulse Ox O2 Del Method 05/05/24 15:26 36.6 C 76 16 114/64 93 Room Air 05/05/24 07:30 36.3 C L 70 16 111/70 95 Room Air
--- NOTE | 2024-05-05 16:04 | Discharge Summary ---
Date of Service May 05, 2024 Admission HPI Per Admitting Provider 53M pmh EtOH cirrhosis last drink 6 weeks ago, COPD, renal cyst, CKD, chronic anemia who presented to the ED on the request of his PCP due to anemia. Patient is a frequent flier to this hospital, was discharged 10 days ago. During that admission had paracentesis via IR removing 9L. GI saw him and he declined EGD, and stated that he would schedule an outpatient EGD with his GI doctor, which he has been unable to complete. On this presentation patient complains of significantly increased abdominal distention, similar to his previous admission. No other complaints including melena, other signs of bleeding, diarrhea constipation. Admission Exam Per Admitting Provider Constitutional: WD/WN, vitals as above Gastrointestinal (Abdomen): Inspection/Auscultation: + abdomen distended Percussion/Palpation: + abdomen tender Principal Diagnosis Symptomatic anemia Upper GI bleed Secondary to portal gastropathy Decompensated alcoholic cirrhosis Hypervolemic hyponatremia GRACIELA on CKD stage III Discharge Data Allergies Allergy/AdvReac Type Severity Reaction Status Date / Time Penicillins Allergy Unknown pt unsure Verified 04/02/24 12:32 of reaction Consultations 04/26/24 13:58 ED Decision to Admit Stat 04/26/24 17:38 Consult Gastroenterology Routine Consult Nephrology Routine 04/28/24 14:58 Consult Mail Handler Equipment Operator Routine Procedures Performed Operation Date: 04/28/24 13:00 Actual Procedures p Esophagogastroduodenoscopy(Not Applicable) - Kendall Cowan MD Ordered Studies Laboratory Results WBC 8.44 K/ul (4.8-10.8) 05/01/24 06:26 RBC 2.51 M/uL (4.70-6.10) L 05/01/24 06:26 Hgb 7.4 g/dl (14.0-18.0) L 05/05/24 06:35 Hct 22.8 % (42.0-52.0) L 05/05/24 06:35 MCV 96.4 fL (80.0-100.0) 05/01/24 06:26 MCH 31.5 pg (25.0-34.0) 05/01/24 06:26 MCHC 32.6 g/dL (32.0-36.0) 05/01/24 06:26 RDW Std Deviation 61.3 fL (36.4-46.3) H 05/01/24 06:26 RDW Coeff of Ham 18.2 % (11.5-14.5) H 05/01/24 06:26 Plt Count 165 K/uL (130-400) 05/01/24 06:26 MPV 9.7 fL (9.4-12.4) 05/01/24 06:26 Immature Gran % (Auto) 0.6 % 05/01/24 06:26 Neut % (Auto) 64.8 % 05/01/24 06:26 Lymph % (Auto) 13.3 % 05/01/24 06:26 [place] % (Auto) 8.4 % 05/01/24 06:26 Eos % (Auto) 12.1 % 05/01/24 06:26 Baso % (Auto) 0.8 % 05/01/24 06:26 Neut # (Auto) 5.47 K/uL (1.40-6.50) 05/01/24 06:26 Lymph # (Auto) 1.12 K/uL (1.20-3.40) L 05/01/24 06:26 [place] # (Auto) 0.71 K/uL (0.11-0.59) H 05/01/24 06:26 Eos # (Auto) 1.02 K/uL (0.00-0.50) H 05/01/24 06:26 Baso # (Auto) 0.07 K/uL (0.00-0.20) 05/01/24 06:26 Immature Gran # (Auto) 0.05 K/uL (0.01-0.20) 05/01/24 06:26 RBC Morphology Unremarkable 04/27/24 21:11 Polychromasia 1+ 05/01/24 06:26 Hypochromasia Present 04/28/24 04:02 Anisocytosis Present 04/28/24 20:59 PT 12.0 Seconds (9.0-12.0) 04/28/24 04:02 INR 1.1 (0.9-1.1) 04/28/24 04:02 Sodium 131 mmol/L (136-145) L 05/05/24 06:35 Potassium 4.1 mmol/L (3.5-5.1) 05/05/24 06:35 Chloride 97 mmol/L (98-107) L 05/05/24 06:35 Carbon Dioxide 28 mmol/L (21-32) 05/05/24 06:35 Anion Gap 6 (3-11) 05/05/24 06:35 BUN 45 mg/dl (6-23) H 05/05/24 06:35 Creatinine 1.84 mg/dl (0.6-1.4) H D 05/05/24 06:35 Est Cr Clr Drug Dosing 50.8 ml/min 05/05/24 06:35 eGFR 43.84 05/05/24 06:35 Est GFR ( Amer) 61.1 ml/min 05/01/24 06:26 Est GFR (Non-Af Amer) 52.7 ml/min 05/01/24 06:26 BUN/Creatinine Ratio 24.5 (10-20) H 05/05/24 06:35 Glucose 98 mg/dl (70-99(Fasting)) 05/05/24 06:35 Calcium 8.8 mg/dl (8.6-10.3) 05/05/24 06:35 Magnesium 2.0 mg/dl (1.7-2.4) 04/28/24 04:02 Total Bilirubin 2.9 mg/dl (0.2-1.0) H D 04/27/24 09:27 AST 28 U/L (13-39) 04/27/24 09:27 ALT 12 U/L (7-52) 04/27/24 09:27 Alkaline Phosphatase 44 U/L (34-104) 04/27/24 09:27 Total Protein 6.1 gm/dl (6.0-8.3) 04/27/24 09:27 Albumin 2.4 gm/dl (3.4-5.0) L 04/27/24 09:27 Globulin 3.7 gm/dl (2.5-4.0) 04/27/24 09:27 Albumin/Globulin Ratio 0.6 (0.9-2) L 04/27/24 09:27 Lipase 93 U/L (11-82) H 04/26/24 12:52 Urine Color Yellow 04/26/24 15:49 Urine Appearance Clear (Clear) 04/26/24 15:49 Urine pH 5.5 (4.5-7.5) 04/26/24 15:49 Ur Specific [place] 1.008 (1.000-1.030) 04/26/24 15:49 Urine Protein Negative (Negative) 04/26/24 15:49 Urine Glucose (UA) Negative (Negative) 04/26/24 15:49 Urine Ketones Negative (Negative) 04/26/24 15:49 Urine Blood Negative (Negative) 04/26/24 15:49 Urine Nitrite Negative (Negative) 04/26/24 15:49 Urine Bilirubin Negative (Negative) 04/26/24 15:49 Urine Urobilinogen Negative (Negative) 04/26/24 15:49 Ur Leukocyte Esterase Negative (Negative) 04/26/24 15:49 Fluid Neutrophils % 2 % 04/29/24 13:23 Fluid Lymphocytes % 47 % 04/29/24 13:23 Fluid Eosinophils % 1 % 04/29/24 13:23 Fluid [place] % 50 % 04/29/24 13:23 Fluid Comment 04/29/24 13:23 Peritoneal Color Yellow 04/29/24 13:23 Peritoneal Appearance Slightly Hazy 04/29/24 13:23 Peritoneal WBC (Auto) 84 /ul (0-300) 04/29/24 13:23 Peritoneal RBC (Auto) < 2000 /uL 04/29/24 13:23 Peritoneal Tot Protein < 3.0 gm/dl 04/29/24 13:23 Peritoneal LDH 58 U/L 04/29/24 13:23 Peritoneal LDH Cancelled 04/29/24 13:23 Peritoneal Lipase 30 U/L 04/29/24 13:23 Peritoneal Lipase Cancelled 04/29/24 13:23 Blood Type A Negative 04/30/24 03:56 Antibody Screen NEGATIVE 04/30/24 03:56 Antibody Identification Cancelled 04/30/24 03:56 Antibody ID Comment Cancelled 04/30/24 03:56 Antigen Identification Cancelled 04/26/24 14:42 Crossmatch See Detail 04/30/24 03:56 Impressions Chest X-Ray 04/28/24 03:47 SINGLE VIEW CHEST CLINICAL HISTORY: Wheezing FINDINGS: 2 AP, portable, upright chest radiographs are compared to study dated 04/26/2024. The examination is degraded by portable technique and apical lordotic positioning. The the heart is mildly enlarged and noting atherosclerotic calcification of the thoracic aorta. The pulmonary vasculature is noncongested. Emphysema and chronic interstitial thickening is similar to previous. There are low lung volumes. Mild patchy airspace opacities are seen at the left lung base. No large pleural effusion or pneumothorax is seen. The skeletal structures appear osteopenic. The bony thorax is grossly intact. IMPRESSION: 1. Cardiomegaly and emphysema without radiographic evidence of congestive failure. 2. Mild patchy airspace consolidation of the left lung base suggests an infectious/inflammatory pneumonitis. Clinical correlation will be required and radiographic follow-up to resolution is recommended. ACT 112: Negative or not required by law. Electronically signed by: Taran Tam M.D. 04/28/2024 8:11 AM Paracentesis Ultrasound 04/29/24 00:00 ULTRASOUND-GUIDED PARACENTESIS CLINICAL HISTORY: Ascites PROCEDURE: Procedure and risks were explained. Informed consent was obtained. A final timeout was completed. The abdomen was prepped and draped in sterile fashion. 1% buffered lidocaine was utilized for skin anesthesia. Utilizing ultrasound guidance, a 5 [place] safety centesis catheter was advanced into the left lower quadrant pocket of ascites. Ultrasound images were obtained. A total of 9 L of ascites fluid was removed with 1 L sent to the lab. The catheter was removed and Band-Aid applied. The patient tolerated the procedure well. Vital signs will be monitored postprocedure. IMPRESSION: Ultrasound-guided paracentesis as above. Performed, dictated, and signed by Colten Rivas PA-C; to be co-signed by Dr. Colton Arango. Electronically signed by: Colton Arango M.D. 04/29/2024 2:53 PM Hospital Course (1) Abdominal distension: (2) Alcoholic cirrhosis of liver with ascites: Plan Symptomatic anemia Upper GI bleed Secondary to portal gastropathy S/P 5 units PRBCs S/P Endoscopy on 04/28; was found to have active oozing from portal hypertensive gastropathy. Patient underwent APC and Hemoclip placement. -- Octreotide, Protonix drip discontinued Continue p.o. Protonix 40 mg twice a day Monitor H&H and transfuse as needed Empirically received IV Rocephin for 5 days Appreciate GI input Tolerating regular diet Denies any recurrence of bleeding issues Monitor CBC Will need outpatient blood work on discharge Decompensated EtOH cirrhosis w/ascites Patient presented with abdominal distention H/O frequent paracentesis needed for last couple of months Had paracentesis done on 04/29; 9 L fluid taken off Reviewed peritoneal fluid analysis; no signs of SBP Peritoneal fluid culture negative to date Continue lactulose Appreciate nephrology help with diuresis Diuretics held transiently due to worsening renal function Creatinine levels improved Received IV albumin Discussed with nephrology on 05/05/2024: Plan to resume home torsemide 40 mg twice a day on discharge Needs follow-up with nephrology on discharge Hypervolemic hyponatremia GRACIELA on CKD III likely ATN Cr 1.8 today Continue torsemide, spironolactone, albumin and midodrine Sodium improved to 131 today Appreciate nephrology input Monitor renal function, electrolytes Also on fluid restriction Diuretics held Slowly improving DVT Px: SCDs Re:GI bleed Code Status Full code Disposition Home as able Total Time Total Time Spent Total Time Spent (In Minutes): 45 minutes Discharge Plan Discharge Items Patient Disposition: Home - Self-Care Reason For Visit: ANEMIA, ABD DISTENTION NEEDS PARA Discharge Diagnosis: Symptomatic anemia Upper GI bleed Secondary to portal gastropathy Decompensated alcoholic cirrhosis Hypervolemic hyponatremia GRACIELA on CKD stage III Activity: Per Instructions section Exercise/Sports: Gradually increase as tolerated Non-emergency contact: Primary Care Provider, Prevention Specialist and Rn Community Call non-emergency contact if: you have any medication questions, your symptoms worsen, your pain is concerning for you and you have a fever Follow-up/Referrals: Rina Neil PA-C [Primary Care Provider] - (Date & Time 05/09/2024 1:00 PM Provider Rina Neil PA-C Department Family Practice [facility] ) Sari Holder MD [Hospitalist] - (The GI office has been made aware of your discharge. Please contact them for further treatment/ appointments.) Alessandra Sutherland MD [Physician] - (Date & Time 05/09/2024 10:40 AM Provider Alessandra Sutherland MD Department Nephrology, [facility] ) Diet: Heart Healthy Fluids: 1800ml (7 cups) Addtl Attending Provider Instructions: Follow-up with your primary care physician Rina Neil PA-C in 1 week Follow-up with your pay station attendant in 2 weeks for management of your cirrhosis as advised Follow-up with your sewer pipe layer helper in 1 to 2 weeks as recommended -- Get blood work CBC, renal function test, magnesium levels in 1 week and follow-up with your primary care physician/sewer pipe layer helper for further recommendations Seek immediate medical attention if your symptoms reoccur or worsen Please take all medications as instructed on discharge list below. Please call if you have any questions or problems. You can reach a [facility] hospitalist on duty at [facility] 24 hours a day by calling [phone] Pending Studies at Discharge: Yes Studies:: Final peritoneal fluid culture Stand-Alone Forms: My [facility], Smoking Cessation Medications and DC Order Prescriptions: Continued pantoprazole 40 mg tablet,delayed release (DR/EC) 40 mg PO BID 90 Days Qty: 180 3RF folic acid 1 mg tablet 1 mg PO DAILY Qty: 30 0RF torsemide 20 mg Tablet 40 mg PO BID Qty: 60 0RF Rx Instructions: pt didnt seem too sure of this medication magnesium chloride [Mag 64] 64 mg Tablet,Delayed Release (Dr/Ec) 64 mg PO BID Qty: 60 0RF gabapentin 300 mg capsule 300 mg PO TID Arnuity Ellipta 100 mcg/actuation blister with device 1 inh INHALATION QAM lactulose 20 gram/30 mL Solution 20 g PO BID Qty: 3000 0RF Rx Instructions: Goal of 3 bowel movements per day. Can hold further doses afterwards midodrine 5 mg tablet 10 mg PO TID Qty: 180 0RF Rx Instructions: do not give last dose of day after 6PM or within 4 hrs of bedtime Discharge Orders: Discharge Order (Routine); Ordered 05/05/24 Ordered By: Jean-Claude Salcedo Admission Data Admit Date/Time: 04/26/24 15:36 Attending Provider: Jean-Claude Salcedo Admit Provider: Ranjith Shafer Primary Care Provider: Rina Neil. Other Providers: Ranjith Shafer; Chance [facility]; Grisel Fontaine; Andrew Kenny
[2024-05-08 15:07] LABS: HSV Type 1 DNA Not Detected (Not Detected); HSV Type 1&2 DNA Source Lesion; HSV Type 2 DNA Not Detected (Not Detected)
== END 2024-05-05 16:44 | disposition home or self-care (01) | DRG 441 ==
LOC: ED 12:15 → 4W 15:36 → SUATTDRO 15:36 → 4W 17:17 → 1E 04-28 14:50 → 2E 04-30 10:35 → 3N 05-02 17:46

== ENCOUNTER 2024-05-08 11:23 | Observation (INO) ==
[2024-05-08 13:06] LABS: Alanine Aminotransferase 7 U/L (7-52); Albumin Level 3.3 gm/dl (3.4-5.0); Alkaline Phosphatase 72 U/L (34-104); Anion Gap 8 (3-11); Aspartate Aminotransferase 24 U/L (13-39); BUN Creatinine Ratio 24.4 (10-20); Bilirubin,Total 1.2 mg/dl (0.2-1.0); Blood Urea Nitrogen 65 mg/dl (6-23); Calcium 8.7 mg/dl (8.6-10.3); Carbon Dioxide 25 mmol/L (21-32); Chloride 95 mmol/L (98-107); Globulin 3.4 gm/dl (2.5-4.0); Glucose 163 mg/dl (70-99(Fasting)); Lipase 58 U/L (11-82); Potassium 4.6 mmol/L (3.5-5.1); Sodium 128 mmol/L (136-145); Total Protein 6.7 gm/dl (6.0-8.3)
[2024-05-08 13:12] LABS: Hematocrit (blood only) 20.8 % (42.0-52.0); Hemoglobin 6.9 g/dl (14.0-18.0)
[2024-05-08 13:13] LABS: Mean Corpuscular Hemoglobin 32.1 pg (25.0-34.0); Mean Corpuscular Hgb Conc 33.2 g/dL (32.0-36.0); Mean Corpuscular Volume 96.7 fL (80.0-100.0); Mean Platelet Volume 10.2 fL (9.4-12.4); Platelet Count 166 K/uL (130-400); RDW Coefficient of Variation 17.5 % (11.5-14.5); RDW Standard Deviation 61.3 fL (36.4-46.3); Red Blood Count 2.15 M/uL (4.70-6.10); White Blood Count 9.55 K/ul (4.8-10.8)
[2024-05-08 13:16] LABS: Eosinophils # (auto) 1.01 K/uL (0.00-0.50); Eosinophils % (auto) 10.6 %; Lymphocytes # (auto) 1.19 K/uL (1.20-3.40); Lymphocytes % (auto) 12.5 %; Monocytes # (auto) 0.81 K/uL (0.11-0.59); Monocytes % (auto) 8.5 %; Neutrophils # (auto) 6.34 K/uL (1.40-6.50); Neutrophils % (auto) 66.4 %; RBC Morphology Unremarkable
--- NOTE | 2024-05-08 13:48 | Emergency Department Note ---
Impression & Plan Hyponatremia, Abdominal distension, Low hemoglobin, Hypoalbuminemia ED Provider Note NAME: INDERJIT LO AGE: 53 SEX: M : 1970 ARRIVES VIA: Walk-In INFORMANT: Patient ED PROVIDER(S): LILI Womack, Elinor Fajardo DO CHIEF COMPLAINT: Abdominal distention HISTORY OF PRESENT ILLNESS: This 53-year-old male patient with past medical history of upper GI bleed, anemia, abdominal ascites, acute kidney injury, CKD, alcoholic cirrhosis, as well as other pathologies, presents to the emergency department for abdominal ascites. The patient reports he was recently discharged 2 days ago from the hospital, for abdominal ascites with paracentesis. He reports upon discharge, the ascites returned quite rapidly, he reports that shortness of breath due to the distention. He denies chest pain, nausea, or vomiting. He reports he would like a bedside paracentesis at discharge. REVIEW OF SYSTEMS: A review of systems was performed with positives and pertinent negatives listed in the history of present illness. All other systems were reviewed and are negative. ALLERGIES: See below MEDICATIONS: See below PMH: See below PHYSICAL EXAM: VITALS: Vitals are noted on the nurse's note and reviewed by myself. Vital signs stable. GENERAL: 53-year-old male, in no acute distress, nondiaphoretic, well-developed well-nourished. SKIN: The skin is pale and jaundice with ecchymosis present intermittenly. HEAD: Normocephalic atraumatic. EYES: Pupils equal round and reactive to light and accommodation. Conjunctivae without injection, slight scleral icterus present. Extraocular movements intact. NOSE: Patent, turbinates without inflammation or discharge. No sinus tenderness. MOUTH: Mucous membranes moist. Pharynx without erythema or exudate. Uvula midline. Airway patent. Tongue does not deviate. NECK: Supple without nuchal rigidity. No lymphadenopathy. No thyromegaly. Cervical spine is nontender. HEART: Regular rate and rhythm without murmurs gallops or rubs. LUNGS: Clear to auscultation bilaterally without wheezes, rales or rhonchi. No retractions or accessory muscle use. ABDOMEN: Positive bowel sounds x 4. Soft, nontender, without masses or organomegaly. Navarro sign negative. No guarding or rebound tenderness. Significant abdominal distension. MUSCULOSKELETAL: No muscle atrophy, erythema, or edema noted. Normal gait. Strength 5/5 throughout. NEURO: Patient was alert and oriented to person place and time. No focal neurological deficits. MEDICAL DECISION MAKING: The patient is a 53-year-old male who arrives to the emergency department with for evaluation of the above-stated complaint. Initial workup was performed in triage including a saline lock, CBC, CMP, lipase, urinalysis and EKG. CBC shows hemoglobin 6.9, hematocrit 20.8, no leukocytosis, CMP sodium 128, chloride 95, BUN 65, creatinine 2.66, total bilirubin 1.2, albumin 3.3, lipase negative, urinalysis not obtained while the patient was in the department. EKG shows normal sinus rhythm at a rate of 65 bpm, with no ST elevation, depression, or ectopy. Previous for comparison from April 26, 2024 with no significant change found. Upon evaluation of the patient a type and screen, and troponin were added to the workup. Troponin was negative. Colten Rivas PA-C contacted me from interventional radiology and stated he would schedule the patient for a paracentesis tomorrow. I contacted case management [facility] due to the low hemoglobin, albumin, and the need for paracentesis. Lizzie Stone PA-C as well as Dr. Salcedo agreed to accept the patient under their care. I did offer to order packed red blood cells, as well as albumin, however Bozena stated she would speak with Dr. Salcedo and contact me if she preferred I placed the order. Please refer to Bozena and Dr. Salcedo's documentation for further patient workup and care. DIFFERENTIAL DIAGNOSIS: Cirrhosis, CHF, hypoalbuminemia, malnutrition, infection, metabolic abnormality, as well as other pathologies. Continuous tray checker: Order was placed for continuous tray checker. Patient was placed on the tray checker. Patient was noted to be in normal sinus rhythm at an initial rate of 62 bpm. The chart was completed utilizing [employer] voice recognition software. Grammatical errors, random word insertions, pronoun errors, and incomplete sentences are an occasional consequence of this system due to software limitations, ambient noise, and hardware issues. Any formal questions or concerns about the content, text, or information contained within the body of this dictation should be directly addressed to the physician for clarification. Past Med/Surg History Problem List (Updated 05/13/24 @ 00:59 by LILI Montanez) Hypoalbuminemia (Acute) Low hemoglobin (Acute) History of upper gastrointestinal bleeding Hepatorenal syndrome Anemia (Acute) Abdominal ascites (Acute) SOB (shortness of breath) (Acute) Abdominal distension (Acute) GRACIELA (acute kidney injury) UGIB (upper gastrointestinal bleed) GAVE (gastric antral vascular ectasia) Esophagitis PAF (paroxysmal atrial fibrillation) Positive blood culture CKD (chronic kidney disease) stage 4, GFR 15-29 ml/min Severe sepsis Symptomatic anemia (Acute) Metabolic encephalopathy (Acute) Alcoholic cirrhosis of liver with ascites (Acute) Abdominal ascites (Acute) Blunt trauma of nose Blunt trauma of face Hypoxia (Acute) Pancytopenia (Acute) Influenza A (Acute) Tobacco use Hypomagnesemia (Acute) Hyponatremia (Acute) Hypokalemia (Acute) Multifocal pneumonia (Acute) Sepsis (Acute) Encounter for pre-operative examination Alcohol use (Acute) Fall (Acute) Medical History Hypervolemia Symptomatic anemia hospitalized [facility] 02/26/24 for issues related to this Poor historian [facility] Alcoholic cirrhosis of liver with ascites hospitalized [facility] 02/26/24 for issues related to this Metabolic encephalopathy hospitalized [facility] 02/26/24 for issues related to this PAF (paroxysmal atrial fibrillation) pt denies; hospitalized [facility] 02/26/24, evaluated by tae garcia per cardio consult Esophagitis History of severe sepsis hospitalized 02/26/24, [facility] 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 per med record; hospitalized [facility] 02/26/24 for issues related to this Orthostatic hypotension "he thinks" COPD (chronic obstructive pulmonary disease) History of pneumonia 07/2023, 02/26/24, hospitalized [facility] 02/26/24 for issues related to this Chronic kidney disease, stage 4 (severe) S/P abdominal paracentesis 03/21/2024, [facility] Current every day smoker Surgical History History of esophagogastroduodenoscopy (EGD) S/P cataract extraction right eye/left History of tonsillectomy History of hernia surgery infancy Family History Mother Stroke Diabetes Other Colorectal cancer Heart disease Social History Smoking Status: Current every day smoker Tobacco Type: Cigarettes Cigarettes Per Day: 8; Second Hand Exposure: No; Do You Dip or Chew Tobacco: No; Hx Alcohol Use: No Hx Substance Use: Yes Substance Use Type Other:: marijuana Preferred Language: Samoan Communication Ability: Effective Belt Cutter Required: No Beliefs That Will Affect Care: None Current Living Situation: Other Current Living Situation Comment: roommate Feels Safe at Home: Yes Assistive Devices: None Allergies Allergies Allergy/AdvReac Type Severity Reaction Status Date / Time Penicillins Allergy Unknown pt unsure Verified 04/02/24 12:32 of reaction Home Meds Home Medications Medication Instructions Recorded Confirmed fluticasone furoate 100 1 inh inhalation QAM 04/12/24 05/08/24 mcg/actuation blister powder for inhalation (Arnuity Ellipta) gabapentin 300 mg capsule 300 mg PO TID 04/12/24 05/08/24 folic acid 1 mg tablet 5 mg PO QAM 05/08/24 05/08/24 lactulose 20 gram/30 mL oral 20 g PO BID PRN Constipation 05/08/24 05/08/24 solution torsemide 20 mg tablet 40 mg PO AMHS 05/08/24 05/08/24 Previous Rx's Medication Instructions Recorded pantoprazole 40 mg tablet,delayed 40 mg PO BID 3 months #180 tabs 03/15/24 release midodrine 5 mg tablet 10 mg (2 x 5 mg) PO TID #180 tabs 04/15/24 Results & Data (ED) Vital Signs Vital Signs - 24 hr 05/08/24 11:34 05/08/24 13:20 05/08/24 13:38 Temperature 36.8 C 36.8 C Temperature Source Skin Oral Pulse Rate 70 63 Pulse Rate [Apical] 64 Pulse Rhythm [Apical] Regular Pulse Strength [Apical] Normal Respiratory Rate 18 20 Respiratory Effort / Characteristics Non-Labored Spontaneous Respiratory Depth Normal Respiratory Pattern Regular Blood Pressure 118/72 Blood Pressure [Left Arm] 133/89 Blood Pressure Mean 87 Blood Pressure Mean [Left Arm] 103 Blood Pressure Position [Left Arm] Semi-fowlers Pulse Oximetry 98 98 Oxygen Delivery Method Room Air Room Air Sepsis Recent Fever Within 48 Hours No Sepsis New/Unexplained Change in Mental Status No Sepsis Action Taken by Nursing No Action Required Home Medications Current Medication List: was personally reviewed by me Laboratory Data Attestation: I reviewed the patient's lab results. 05/09/24 05:59 05/09/24 05:59 Lab Results 05/08/24 05/08/24 Range/Units 12:32 14:11 WBC 9.55 (4.8-10.8) K/ul RBC 2.15 L (4.70-6.10) M/uL Hgb 6.9 L* (14.0-18.0) g/dl Hct 20.8 L* (42.0-52.0) % MCV 96.7 (80.0-100.0) fL MCH 32.1 (25.0-34.0) pg MCHC 33.2 (32.0-36.0) g/dL RDW Std Deviation 61.3 H (36.4-46.3) fL RDW Coeff of Ham 17.5 H (11.5-14.5) % Plt Count 166 (130-400) K/uL MPV 10.2 (9.4-12.4) fL Immature Gran % (Auto) 1.0 % Neut % (Auto) 66.4 % Lymph % (Auto) 12.5 % [place] % (Auto) 8.5 % Eos % (Auto) 10.6 % Baso % (Auto) 1.0 % Neut # (Auto) 6.34 (1.40-6.50) K/uL Lymph # (Auto) 1.19 L (1.20-3.40) K/uL [place] # (Auto) 0.81 H (0.11-0.59) K/uL Eos # (Auto) 1.01 H (0.00-0.50) K/uL Baso # (Auto) 0.10 (0.00-0.20) K/uL Immature Gran # (Auto) 0.10 (0.01-0.20) K/uL RBC Morphology Unremarkable Sodium 128 L (136-145) mmol/L Potassium 4.6 (3.5-5.1) mmol/L Chloride 95 L (98-107) mmol/L Carbon Dioxide 25 (21-32) mmol/L Anion Gap 8 (3-11) BUN 65 H (6-23) mg/dl Creatinine 2.66 H (0.6-1.4) mg/dl Est Cr Clr Drug Dosing Not Reportable eGFR 28.17 BUN/Creatinine Ratio 24.4 H (10-20) Glucose 163 H (70-99(Fasting)) mg/dl Calcium 8.7 (8.6-10.3) mg/dl Iron Cancelled 34 L Unsaturated IBC Cancelled 169 Transferrin Cancelled 157 L Ferritin Cancelled 241.4 Total Bilirubin 1.2 H (0.2-1.0) mg/dl AST 24 (13-39) U/L ALT 7 (7-52) U/L Alkaline Phosphatase 72 (34-104) U/L Troponin I High Sens 11.3 (0-20) pg/ml Total Protein 6.7 (6.0-8.3) gm/dl Albumin 3.3 L (3.4-5.0) gm/dl Globulin 3.4 (2.5-4.0) gm/dl Albumin/Globulin Ratio 1.0 (0.9-2) Lipase 58 (11-82) U/L Vitamin B12 461 (180-914) pg/ml Folate 22.27 (>5.38) ng/ml Blood Type A Negative Antibody Screen NEGATIVE Crossmatch See Detail Administered Medications Discontinued Medications Fluticasone Furoate (Fluticasone Furoate 100mcg 14 Puffs/Inhaler) 1 puffs INH QAM [facility] Stop: 06/08/24 08:59 Last Admin: 05/09/24 08:54 Dose: 1 puffs Documented By: MANI Folic Acid (Folic Acid 1 Mg Tab) 5 mg PO QAM GAIL Stop: 06/08/24 08:59 Last Admin: 05/09/24 08:57 Dose: 5 mg Documented By: MANI Gabapentin (Gabapentin 300 Mg Cap) 300 mg PO BID GAIL Stop: 06/07/24 20:59 Last Admin: 05/09/24 08:57 Dose: 300 mg Documented By: Admin: 05/08/24 20:09 Dose: 300 mg Documented By: YVETTE Albumin Human (Albumin 25%) 25 gm in 100 mls @ 50 mls/hr IV ONE ONE Stop: 05/09/24 08:59 Last Infusion: 05/09/24 08:23 Dose: Infused Documented By: Admin: 05/09/24 06:23 Dose: 50 mls/hr Documented By: YVETTE Pantoprazole Sodium 40 mg/ (Dextrose) 100 mls @ 20 mls/hr IV Q5H GAIL Stop: 06/08/24 12:59 Last Admin: 05/09/24 16:55 Dose: 8 mg/hr, 20 mls/hr Documented By: Infusion: 05/09/24 16:55 Dose: Infused Documented By: Admin: 05/09/24 14:18 Dose: 8 mg/hr, 20 mls/hr Documented By: MANI Pantoprazole Sodium 80 mg/ (Dextrose) 120 mls @ 480 mls/hr IV NOW ONE Stop: 05/09/24 12:46 Last Infusion: 05/09/24 14:19 Dose: Infused Documented By: Admin: 05/09/24 14:04 Dose: 480 mls/hr Documented By: MANI Octreotide Acetate 500 mcg/ (Sodium Chloride) 100.5 mls @ 10.05 mls/hr IV .Q10H GAIL Stop: 06/08/24 12:44 Last Infusion: 05/09/24 16:29 Dose: Infused Documented By: Admin: 05/09/24 14:03 Dose: 50 mcg/hr, 10.1 mls/hr Documented By: MANI Ceftriaxone Sodium (Rocephin) 2,000 mg in 50 mls @ 100 mls/hr IV NOW STA Stop: 05/09/24 13:48 Last Infusion: 05/09/24 16:51 Dose: Infused Documented By: Admin: 05/09/24 16:21 Dose: 100 mls/hr Documented By: MANI Lactulose (Lactulose Syrup 20 Gm/30 Ml Udc) 20 gm PO BID GAIL Stop: 06/07/24 20:59 Last Admin: 05/09/24 08:57 Dose: 20 gm Documented By: Admin: 05/08/24 20:10 Dose: 20 gm Documented By: YVETTE Lidocaine HCl (Lidocaine 2% 2 Ml Vial/Amp(20mg/Ml)) Confirm Administered Dose 4 ml INFIL .STK-MED ONE Stop: 05/09/24 12:27 Last Admin: 05/09/24 13:24 Dose: Not Given Documented By: MANI Midodrine (Midodrine Hcl 10 Mg Tab) 10 mg PO 0700,1200,1700 GAIL Stop: 06/07/24 16:59 Last Admin: 05/09/24 16:21 Dose: 10 mg Documented By: Admin: 05/09/24 12:55 Dose: 10 mg Documented By: Admin: 05/09/24 06:23 Dose: 10 mg Documented By: Admin: 05/08/24 17:57 Dose: 10 mg Documented By: MANI Miscellaneous (Remove Nicoderm Patch) 1 each N/A DAILY@0859 GAIL Stop: 06/08/24 08:58 Last Admin: 05/09/24 08:54 Dose: 1 each Documented By: MANI Nicotine (Nicotine 21 Mg/24 Hr Tdsy) 1 patch TD DAILY GAIL Stop: 06/07/24 20:29 Last Admin: 05/09/24 08:57 Dose: 1 patch Documented By: Admin: 05/08/24 21:16 Dose: 1 patch Documented By: YVETTE Octreotide Acetate (Octreotide Bolus From Bag) 50 mcg IV ONE ONE Stop: 05/09/24 12:46 Last Admin: 05/09/24 14:07 Dose: 50 mcg Documented By: MANI Pantoprazole Sodium (Pantoprazole 40 Mg Tab) 40 mg PO BID [facility] Stop: 06/07/24 20:59 Last Admin: 05/09/24 08:57 Dose: 40 mg Documented By: Admin: 05/08/24 20:09 Dose: 40 mg Documented By: YVETTE Propofol (Propofol Iv Emulsion 10 Mg/Ml 20 Ml Vial) Confirm Administered Dose 200 mg IV .STK-MED ONE Stop: 05/09/24 12:27 Last Admin: 05/09/24 13:24 Dose: Not Given Documented By: [facility] Discharge Plan Visit Data Chief Complaint: Abdominal Pain Stated Complaint: ABD PAIN, SOB ED Provider: Elinor Fajardo ED Midlevel Provider: Yudith Florence Discharge Problem: Hyponatremia, Abdominal distension, Low hemoglobin, Hypoalbuminemia Patient Disposition: Admitted As Inpatient Discharge Instructions Interventions: ED Discharge Assessment Last Done: 05/08/24 16:18
--- NOTE | 2024-05-08 14:44 | History & Physical Report ---
Date of Service May 08, 2024 Assessment & Plan (1) Alcoholic cirrhosis of liver with ascites: Plan: Patient is 53-year-old male with PMH Alcoholic cirrhosis, ascites requiring frequent paracentesis, portal gastropathy, CKD IV and others listed below presented to ER with c/o increased abdominal distension. Was scheduled to have outpatient paracentesis tomorrow however patient felt uncomfortable so came to ER today. Denies abdominal pain. Last paracentesis done on 04/29/24 with 9 L fluid taken off No abdominal pain, fever/chills. Do not suspect SBP at this time. Plan for therapeutic paracentesis tomorrow. ER provider had discussed with IR provider who plans to do procedure tomorrow. Will plan for dose of albumin given prior to paracentesis Normal ammonia level. Continue lactulose CBC, CMP labs in am (2) Anemia: (3) History of upper gastrointestinal bleeding: Plan: History Upper GI bleed Secondary to portal gastropathy S/P Endoscopy on 04/28/24 and was found to have active oozing from portal hypertensive gastropathy and pt underwent APC and Hemoclip placement. Hgb: 6.9, was 7.4 on 05/05/24 Anemia labs pending No signs active bleeding currently Continue p.o. Protonix 40 mg twice a day Type and cross and transfuse 1 unit PRBC Monitor H&H and transfuse as needed (4) GRACIELA (acute kidney injury): Plan: Recent GRACIELA hospitalization. Today Cr: 2.6, was 1.8 on 05/05/24 GRACIELA on CKD IV Hold home torsemide Decrease home gabapentin dose secondary to current renal function Monitor renal functions Nephrology consult (5) Hyponatremia: Plan: Na: 128. Was 131 on 05/05/24 Likely Hypervolemic hyponatremia Nephrology consult DVT Prophylaxis SCDs Admit telemetry Full Code as per discussion with pt Follows with Rina Neil PA-C for routine care Pt was seen and care coordinated with Dr Salcedo. See addendum I spent a total of 77 minutes reviewing notes, outpatient records, labs, medication, coordinating, documenting and providing care for this patient excluding time spent in the performance of separately billed services. History of Present Illness Chief Complaint: Abdominal distention Primary Care Provider: Rina Neil PA-C Patient is 53-year-old male with PMH Alcoholic cirrhosis, ascites requiring frequent paracentesis, portal gastropathy, CKD IV and others listed below presented to ER with c/o increased abdominal distension. History recurrent [facility] hospitalizations. Per inpatient chart review most recent hospitalization 04/26/2024-05/05/2024 for decompensated alcoholic cirrhosis with ascites, upper GI bleed secondary to portal gastropathy s/p 5 units PRBCs, s/p EGD on 04/28 in which was found to have active oozing from portal hypertensive gastropathy and underwent APC and Hemoclip placement. Initially was empirically treated with IV Rocephin for 5 days which was then discontinued. Also had GRACIELA and hyponatremia which had improved prior to hospital discharge. Upon discharge torsemide 40 mg twice daily was resumed per nephrology recommendations Presented to ER today as he feels "uncomfortable" with the abdominal ascites. Denies abdominal pain just "pressure of the swelling in my belly". He had outpatient appointment for paracentesis tomorrow but patient states that he wanted it done sooner so came to hospital today. States having 3 BM's daily so not using lactulose past couple of days. States chronic BLE edema. Denies melena, hematochezia, diarrhea, nausea, vomiting. Denies confusion. Denies fever/chills, diaphoresis, N/V/C, JUAREZ, dizziness, syncope, CP, SOB, palpitations, cough, rhinorrhea, rashes, dysuria, hematuria. EGD on 04/28/24 2) GAVE (gastric antral vascular ectasia): Status post APC and clip as noted above. If he has significantly worsening bleeding, will recontact GI and may require intubation for airway protection. At this time he is stable. (3) Abdominal ascites: Patient with evidence of massive ascites and significant bilateral lower extremity edema. Given complex GI procedures today, will hold off on paracentesis today. Recommend IR consultation tomorrow for paracentesis. Will hold diuresis today given GRACIELA and recent GI bleeding. Should he develop worsening hypotension, will transfuse as appropriate and consider administration of albumin. Allergies Allergy/AdvReac Type Severity Reaction Status Date / Time Penicillins Allergy Unknown pt unsure Verified 04/02/24 12:32 of reaction Home Medications Medication Instructions Recorded Confirmed Type pantoprazole 40 mg tablet,delayed 40 mg PO BID 3 months #180 tabs 03/15/24 05/08/24 Rx release fluticasone furoate 100 1 inh inhalation QAM 04/12/24 05/08/24 History mcg/actuation blister powder for inhalation (Arnuity Ellipta) gabapentin 300 mg capsule 300 mg PO TID 04/12/24 05/08/24 History midodrine 5 mg tablet 10 mg (2 x 5 mg) PO TID #180 tabs 04/15/24 05/08/24 Rx folic acid 1 mg tablet 5 mg PO QAM 05/08/24 05/08/24 History lactulose 20 gram/30 mL oral 20 g PO BID PRN Constipation 05/08/24 05/08/24 History solution torsemide 20 mg tablet 40 mg PO AMHS 05/08/24 05/08/24 History Past Med/Surg History Problem List History of upper gastrointestinal bleeding Hepatorenal syndrome Anemia (Acute) Abdominal ascites (Acute) SOB (shortness of breath) (Acute) Abdominal distension GRACIELA (acute kidney injury) UGIB (upper gastrointestinal bleed) GAVE (gastric antral vascular ectasia) Esophagitis PAF (paroxysmal atrial fibrillation) Positive blood culture CKD (chronic kidney disease) stage 4, GFR 15-29 ml/min Severe sepsis Symptomatic anemia (Acute) Metabolic encephalopathy (Acute) Alcoholic cirrhosis of liver with ascites (Acute) Abdominal ascites (Acute) Blunt trauma of nose Blunt trauma of face Hypoxia (Acute) Pancytopenia (Acute) Influenza A (Acute) Tobacco use Hypomagnesemia (Acute) Hyponatremia (Acute) Hypokalemia (Acute) Multifocal pneumonia (Acute) Sepsis (Acute) Encounter for pre-operative examination Alcohol use (Acute) Fall (Acute) Medical History Hypervolemia Symptomatic anemia hospitalized [facility] 02/26/24 for issues related to this Poor historian main details obtained from [place] med record Alcoholic cirrhosis of liver with ascites hospitalized [facility] 02/26/24 for issues related to this Metabolic encephalopathy hospitalized [facility] 02/26/24 for issues related to this PAF (paroxysmal atrial fibrillation) pt denies; hospitalized [facility] 02/26/24, evaluated by tae garcia per cardio consult Esophagitis History of severe sepsis hospitalized 02/26/24, [facility] 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 per med record; hospitalized [facility] 02/26/24 for issues related to this Orthostatic hypotension "he thinks" COPD (chronic obstructive pulmonary disease) History of pneumonia 07/2023, 02/26/24, hospitalized [facility] 02/26/24 for issues related to this Chronic kidney disease, stage 4 (severe) S/P abdominal paracentesis 03/21/2024, [facility] Current every day smoker Surgical History History of esophagogastroduodenoscopy (EGD) S/P cataract extraction right eye/left History of tonsillectomy History of hernia surgery infancy Family History Mother Stroke Diabetes Other Colorectal cancer Heart disease Social History Smoking Status: Current every day smoker Tobacco Type: Cigarettes Cigarettes Per Day: 8; Second Hand Exposure: No; Do You Dip or Chew Tobacco: No; Tobacco Cessation Education Requested by Patient: No Hx Alcohol Use: No Hx Substance Use: Yes Substance Use Type Other:: marijuana Preferred Language: Pashto Communication Ability: Effective Town Clerk Required: No Beliefs That Will Affect Care: None Current Living Situation: Other Current Living Situation Comment: roommate Other Information That Helps Us Care for You: No Feels Safe at Home: Yes Safety Concerns: Feels Safe At This Time Assistive Devices: Glasses Physical Exam Physical Exam: General: no acute distress, chronic ill appearing male Head: normocephalic, atraumatic Eyes: conjunctiva non-injected, anicteric ENT: normal inspection external ears, nose, mucous membranes moist Neck: supple, trachea midline Lungs: clear, no respiratory distress, no wheezing/rhonchi/rales CV: RRR, 1+pretibial edema Abd: +ascites, non-tender to palpation, normal BS Ext: no cyanosis, no calf tenderness Neuro: A&O x 3, no focal deficits noted, normal affect Skin: warm, dry Results & Data Results & Data Vital Signs (Past 12 Hours) Vital Signs Temp Pulse Pulse Resp BP BP Pulse Ox 05/08/24 13:38 36.8 C 64 20 133/89 98 05/08/24 13:20 63 05/08/24 11:34 36.8 C 70 18 118/72 98 O2 Del Method 05/08/24 13:38 Room Air 05/08/24 13:20 05/08/24 11:34 Room Air Laboratory Results Short CBC 05/08/24 Range/Units 12:32 WBC 9.55 (4.8-10.8) K/ul Hgb 6.9 L* (14.0-18.0) g/dl Hct 20.8 L* (42.0-52.0) % Plt Count 166 (130-400) K/uL BMP 05/08/24 12:32 Sodium 128 L Potassium 4.6 Chloride 95 L Carbon Dioxide 25 BUN 65 H Creatinine 2.66 H Glucose 163 H Calcium 8.7 Liver Function 05/08/24 Range/Units 12:32 Total Bilirubin 1.2 H (0.2-1.0) mg/dl AST 24 (13-39) U/L ALT 7 (7-52) U/L Alkaline Phosphatase 72 (34-104) U/L Albumin 3.3 L (3.4-5.0) gm/dl Urine 05/08/24 Range/Units 15:50 Urine Color Yellow Urine Appearance Clear (Clear) Urine pH 5.5 (4.5-7.5) Ur Specific [place] 1.008 (1.000-1.030) Urine Protein Negative (Negative) Urine Glucose (UA) Negative (Negative) Supervising Physician Co-Signing Physician Notes Patient is a 53-year-old male with history of alcoholic cirrhosis, portal gastropathy, CKD stage IV and other medical problems presents with worsening abdominal distention causing discomfort and shortness of breath. Patient was recently hospitalized and was treated for decompensated alcoholic cirrhosis, ascites, upper GI bleed requiring multiple blood transfusions. Patient prefers to have paracentesis today and be discharged. Currently IR not available, so will be admitted for further management. Patient denies any bleeding issues currently. He also denies any fever, chills, abdominal pain. Please review HPI for complete details of presentation. I personally reviewed blood work and imaging studies. Noted hemoglobin 6.9, hematocrit 20.8, sodium 128, chloride 95, creatinine 2.66. Physical Exam: Vitals signs as noted above General Appearance:Moderately built and nourished, chronically ill appearing, no apparent distress Head: normocephalic, Atraumatic Eyes: normal inspection, EOMI Neck: supple, Trachea midline Respiratory/Chest: Normal breath sounds, CTA, No accessory muscle use Cardiovascular: S1, S2, No murmur Abdomen/GI:Soft, Non tender, distended, bowel sounds present Extremities/Musculoskeletal:normal inspection, 2+ edema Neurologic/Psych:AAOX3, grossly no focal neurological deficits Skin: normal color, warm Anasarca Ascites GRACIELA on CKD IV Hypervolemic hyponatremia Alcoholic cirrhosis Consulted IR for paracentesis tomorrow IV albumin prior to procedure Will hold diuretics given worsening renal function. Will request nephrology evaluation Saturating well on room air Transfuse 1 unit PRBCs No bleeding issues currently per patient Anemia workup ordered. Monitor H&H and transfuse as needed Monitor sodium levels closely. I personally interviewed and examined at bedside. Patient's care is coordinated with Lizzie Stone PA-C. I have reviewed the advanced practitioner's documentation, and I agree with plan of care. Please refer to the documentation above for details of patient's presentation and for discussion of other issues. I spent a total [id number] coordinating, documenting, and providing care for this patient excluding time spent in the performance of separately billed services. (2) Anemia Anemia type: iron deficiency
[2024-05-08] MEDS ORDERED: SODIUM CHLORIDE 0.9% 250 ML IV PRN (14:53)
--- NOTE | 2024-05-08 15:39 | Electrocardiogram Report ---
Test Reason : Blood Pressure : */* mmHG Vent. Rate : 65 BPM Atrial Rate : 65 BPM P-R Int : 180 ms QRS Dur : 90 ms QT Int : 426 ms P-R-T Axes : -9 -12 -10 degrees QTcB Int : 443 ms Normal sinus rhythm Low voltage QRS Possible Inferior infarct , age undetermined Abnormal ECG When compared with ECG of 26-Apr-2024 12:47, No significant change was found Confirmed by Luís Bearden ([id number]) on 05/08/2024 3:38:45 PM Referred By: Confirmed By: Luís Bearden
[2024-05-08 15:58] LABS: Appearance Urine Clear (Clear); Bilirubin Urine Negative (Negative); Blood Urine Negative (Negative); Color Urine Yellow; Glucose Urine UA Negative (Negative); Ketones Urine Negative (Negative); Leukocyte Esterase Urine Negative (Negative); Nitrite Urine Negative (Negative); Protein Urine Negative (Negative); Specific Gravity Urine 1.008 (1.000-1.030); Urobilinogen Urine Negative (Negative); pH Urine 5.5 (4.5-7.5)
[2024-05-08 16:01] LABS: Ferritin 241.4 ng/ml (8-388)
[2024-05-08 16:04] LABS: Folate (Folic Acid),Ser orPlas 22.27 ng/ml (>5.38)
[2024-05-08] MEDS ORDERED: ACETAMINOPHEN 325 MG TAB PO PRN (16:46)
[2024-05-08] MEDS ORDERED: ONDANSETRON INJ 2 MG/ML 2 ML VIAL IV PRN (16:46)
[2024-05-08] MEDS: MIDODRINE HCL 10 MG TAB PO SCH (17:57)
[2024-05-08] MEDS: GABAPENTIN 300 MG CAP PO SCH (20:09)
[2024-05-08] MEDS: PANTOprazole 40 MG TAB PO SCH (20:09)
[2024-05-08] MEDS: LACTULOSE SYRUP 20 GM/30 ML UDC PO SCH (20:10)
[2024-05-08] MEDS ORDERED: LACTULOSE SYRUP 10 GM/15 ML BTL 960 ML PO SCH (21:00)
[2024-05-08] MEDS: NICOTINE 21 MG/24 HR TDSY TD SCH (21:16)
--- OUTSIDE RECORDS SUMMARY | 2024-05-09 02:11 | External Medical Summary | Summary of Care ---
Author Name Unknown Organization [facility] Address [address] [facility] [place] [address] Phone [phone] Care Team Providers Care Trimmer Helper Name Role Phone Rina Neil PA-C Primary Care Provider [phone] Encounter Details Date Type Department Care Team (Late st Contact Info) Description 04/29/2024 Orders Only Family Practice [facility] [address] [facility] [place] [address] Rina Neil PA-C [address] [facility] [place] [address] Allergies Active Allergy Reactions Criticality Noted Date Comments Penicillins Unknown 08/09/2023 documented as of this encounter (statuses as of 04/29/2024) Medications Medication Sig Dispensed Refills Start Date [...] as of this encounter (statuses as of 04/29/2024) Active Problems Problem Noted Date Diagnosed Date Chronic kidney disease, stage 3a 04/08/2024 Overview: Per CKD protocol Alcoholic cirrhosis 12/19/2023 Ascites due to alcoholic cirrhosis 12/19/2023 COPD, 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 documented as of this encounter (statuses as of 04/29/2024) Immunizations Name Administration Dates Next Due Seasonal [...] Care Team (Late st Contact Info) Description 05/09/2024 10:40 AM EDT Office Visit Nephrology, [facility] [address] [facility] [place] [address] Alessandra Sutherland MD [address] [place] [address] 07/03/2024 10:00 AM EST Office Visit Family Practice [facility] [address] [facility] [place] [address] Rina Neil PA-C [address] [facility] [place] [address] 08/27/2024 10:20 AM EST Office Visit Hepatology, [facility] [address] [place] [address] Sari Holder MD [address] [place] [address] 01/13/2025 1:45 PM EDT Imaging Radiology [facility] [address] [place] [address] 01/16/2025 3:00 PM EDT Office Visit Urology, [place] [address] [place], [place] [id number] Brianna Segovia PA-C [address] [place], [place] [id number] Health Maintenance Due Date Last Done Comments DISCUSS TOBACCO CESSATION (REFER TO SMARTSET #9993) 1972 Lipid Panel 1972 Pneumococcal Vaccine: Pediatrics [...] Additional history exists CKD HGB USE SMARTSET 69356 04/03/202504/03, 01/02/2024, 12/26/2023, Additional history exists CKD PHOS USE SMARTSET 17197 04/03/2025 04/03/2024, 0 10/17/2023 O2 ASSESSMENT COMPLETED [...] Procedure Name Priority Date/Time Associated Diagnosis Comments UPPER ENDOSCOPY, OUTSIDE PROCEDURE Routine 04/28/2024 documented in this encounter Results * UPPER ENDOSCOPY, OUTSIDE PROCEDURE (04/28/2024) 04/28/2024 History Per Patient GASTRO UPPER OUTSIDE LAB (SEE SCANNED REPORT) documented in this encounter Care Teams Trimmer Helper Relationship Specialty Start Date End Date JolynnOctober SHAQ Carter [address] [place] [address] PCP - General Physician Roof Tiler 04/10/24 documented as of this encounter
--- OUTSIDE RECORDS SUMMARY | 2024-05-09 02:11 | External Medical Summary | Summary of Care ---
Author Name Unknown Organization [facility] Address [address] [facility] [place] [address] Phone [phone] Care Team Providers Care Welding Machine Assembler Name Role Phone Rina Neil PA-C Primary Care Provider [phone] Reason for Visit * Reason Onset Date Comments No Show 04/29/2024 [facility] No Show Auto mation Encounter Details Date Type Department Care Team (Late st Contact Info) Description 04/29/2024 Telephone Family Practice [facility] [address] [place] [address] Rina Neil PA-C 200 [facility] [place] [address] No Show ([facility] No Show Automation) Allergies Active Allergy Reactions Criticality Noted Date [...] encounter Miscellaneous Notes * Telephone Encounter - VirginiaDulce calderon Show - 04/29/2024 11:53 AM EDT Dear Santiago Amador, Looks like you missed an appointment with RINA Carter JOLYNN on 04/22/2024 at 12:00 PM. If you haven't already rescheduled, you have a couple of options: Reschedule in [employer]/scheduling Call us at [phone] Can't make a future appointment? Cancel and let someone else have your spot! It's easy to do via [employer] or by calling us. Thanks for trusting [facility] with your care. We hope to see you back in our office soon. Sincerely, RINA Carter JOLYNN documented in this encounter Plan of Treatment Upcoming Encounters Date Type Department Care Team (Late st Contact Info) Description 05/09/2024 10:40 AM EDT Office Visit Nephrology, [facility] [address] [place] [address] Alessandra Sutherland MD [address] [place] [address] 07/03/2024 10:00 AM EST Office Visit Family Practice [facility] [address] [place] [address] Rina Neil PA-C [address] [facility] [place] [address] 08/27/2024 10:20 AM EST Office Visit Hepatology, [facility] [address] [facility] [place] [address] Sari Holder MD [address] [place] [address] [place] [address] 01/13/2025 1:45 PM EDT Imaging Radiology [facility] [address] [place] [address] 01/16/2025 3:00 PM EDT Office Visit Urology, [place] [address] [place] [address] Brianna Segovia PA-C [address] [place], [place] [phone] Health Maintenance Due Date Last Done Comments DISCUSS TOBACCO CESSATION (REFER TO SMARTSET #6301) 1972 Lipid Panel 1972 Pneumococcal Vaccine: Pediatrics [...] Additional history exists CKD HGB USE SMARTSET 30730 04/03/202504/03, 01/02/2024, 12/26/2023, Additional history exists CKD PHOS USE SMARTSET 11229 04/03/2025 04/03/2024, 0 10/17/2023 O2 ASSESSMENT COMPLETED [...] filedocumented as of this encounter Care Teams Welding Machine Assembler Relationship Specialty Start Date End Date Jolynn October SHAQ Carter [address] [place] [address] PCP - General Physician Bird Trapper 04/10/24 documented as of this encounter
--- OUTSIDE RECORDS SUMMARY | 2024-05-09 02:11 | External Medical Summary | Summary of Care ---
Author Name Unknown Organization [facility] Address [address] [facility] [place] [address] Phone [phone] Care Team Providers Care Shot Bagger Name Role Phone Rina Neil PA-C Primary Care Provider [phone] Reason for Visit * Reason Onset Date Comments No Show 05/03/2024 [facility] No Show Auto mation Encounter Details Date Type Department Care Team (Late st Contact Info) Description 05/03/2024 Telephone Family Practice [facility] [address] [place] [address] Rina Neil PA-C [address] [facility] [place] [address] No Show ([facility] No Show Automation) Allergies Active Allergy Reactions Criticality Noted Date Comments Penicillins Unknown 08/09/2023 documented as of this encounter (statuses as of 05/03/2024) Medications Medication Sig Dispensed Refills Start Date [...] Constulose 10 GM/15ML Oral Solution 04/15/2024 Active Mag64 64 MG Oral Tablet Delayed Release Take 1 Tablet by mouth in the morning and 1 Tablet before bedtime. 03/06/2024 Active documented as of this encounter (statuses as of 05/03/2024) Active Problems Problem Noted Date Diagnosed Date Chronic kidney disease, stage 3a 04/08/2024 Overview: Per CKD protocol Alcoholic cirrhosis 12/19/2023 Ascites due to alcoholic cirrhosis 12/19/2023 COPD, 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 documented as of this encounter (statuses as of 05/03/2024) Immunizations Name Administration Dates Next Due Seasonal Influenza, Trivalent, (IIV3), PF, (Fluz one) 04/03/2024 documented as of this encounter Social History Tobacco Use Types Packs/Day Years Used Date Smoking Tobacco: Every Day Cigarettes 1 33.8 Started: 1990 Smokeless Tobacco: Never Alcohol Use [...] encounter Miscellaneous Notes * Telephone Encounter - Mena, No Show - 05/03/2024 3:52 PM EDT Dear Santiago Amador, Looks like you missed an appointment with RINA NEIL on 04/25/2024 at 01:00 PM. If you haven't already rescheduled, you have a couple of options: Reschedule in [employer]/scheduling Call us at [phone] Can't make a future appointment? Cancel and let someone else have your spot! It's easy to do via [employer] or by calling us. Thanks for trusting [facility] with your care. We hope to see you back in our office soon. Sincerely, RINA Raul NELI documented in this encounter Plan of Treatment Upcoming Encounters Date Type Department Care Team (Late st Contact Info) Description 05/09/2024 10:40 AM EDT Office Visit Nephrology, [facility] [address] [place] [address] Alessandra Sutherland MD [address] [place] [address] [place] [address] 05/09/2024 1:00 PM EDT Office Visit [facility] [address] [place] [address] Rina Neil PA-C [address] [place] [address] 07/03/2024 10:00 AM EST Office Visit [facility] [address] [place] [address] Rina Neil PA-C [address] [place] [place] [address] 08/27/2024 10:20 AM EST Office Visit Hepatology, [facility] [address] Sari Holder MD [address] [facility] [place] [address] 01/13/2025 1:45 PM EDT Imaging Radiology [facility] [address] [facility] [place] [address] 01/16/2025 3:00 PM EDT Office Visit Urology, [place] [address] [place] [address] Brianna Segovia PA-C [address] [place] [address] Health Maintenance Due Date Last Done Comments [...] ( - season) 2024 GFR 10/01/2024 04/03/2024, 0610/2023, 12/26/2023, Additional history exists CKD HGB USE SMARTSET 33093 04/03/202504/03, 01/02/2024, 12/26/2023, Additional history exists CKD PHOS USE SMARTSET 88810 04/03/2025 04/03/2024, 0 10/17/2023 O2 ASSESSMENT COMPLETED [...] filedocumented as of this encounter Care Teams Shot Bagger Relationship Specialty Start Date End Date Jolynn October Raul, SHAQ [address] [place] [address] PCP - General Physician Chainstitch Zipper Setter 04/10/24 documented as of this encounter
--- OUTSIDE RECORDS SUMMARY | 2024-05-09 02:11 | External Medical Summary | Summary of Care ---
Author Name Unknown Organization [facility] Address [address] [facility] [place] [address] Phone [phone] Care Team Providers Care Coding File Clerk Name Role Phone Rina Neil PA-C Primary Care Provider [phone] Reason for Visit * Reason Onset Date Comments Hospital Follow-Up 05/06/2024 Encounter Details Date Type Department Care Team (Late st Contact Info) Description 05/06/2024 Telephone General Internal Medicine [facility] [address] [facility] [place] [address] Rina Neil PA-C [address] [facility] [place] [address] Hospital Follow-Up Allergies Active Allergy Reactions Criticality Noted Date Comments Penicillins Unknown 08/09/2023 documented as of this encounter (statuses as of 05/06/2024) Medications Medication Sig Dispensed Refills Start Date [...] as of this encounter (statuses as of 05/06/2024) Active Problems Problem Noted Date Diagnosed Date Chronic kidney disease, stage 3a 04/08/2024 Overview: Per CKD protocol Alcoholic cirrhosis 12/19/2023 Ascites due to alcoholic cirrhosis 12/19/2023 COPD, 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 documented as of this encounter (statuses as of 05/06/2024) Immunizations Name Administration Dates Next Due Seasonal [...] encounter Miscellaneous Notes * Telephone Encounter - Makenzie Strickland OSA - 05/06/2024 4:[address] Holder, please advise. You currently do not have any office openings until after the first of the year. EMERSON Yang 05/06/2024 4:27 PM * Telephone Encounter - Reinaldo Norwood RN - 05/06/2024 2:13 PM EDT Patient discharged 05/05/24 from [facility]. 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 Recommendation for GI follow up. Patient requesting outpatient paracentesis be scheduled as well. Please assist patient with GI/Hepatology follow up. Thank you documented in this encounter Plan of Treatment Upcoming Encounters Date Type Department Care Team (Late st Contact Info) Description 05/09/2024 10:40 AM EDT Office Visit Nephrology, [facility] [address] [place] [address] [address] Alessandra Sutherland MD [address] [place] [address] [place] [address] 05/09/2024 1:00 PM EDT [facility] [address] [place] [address] [address] Rnia Neil PA-C [address] [place] [address] [address] 07/03/2024 10:00 AM EST [facility] [address] [place] [address] Rina Neil PA-C [address] [place] [address] 08/27/2024 10:20 AM EST Office Visit Hepatology, [facility] 132 [facility] [place] [address] Sari Holder MD [address] [place] [address] 01/13/2025 1:45 PM EDT Imaging Radiology [facility] 132 [facility] [place] [address] 01/16/2025 3:00 PM EDT Office Visit Urology, [place] [address] [place] [address] Brianna Segovia PA-C [address] [place] [address] Health Maintenance Due Date Last Done Comments DISCUSS TOBACCO CESSATION (REFER TO SMARTSET #1804) 1972 Lipid Panel 1972 Pneumococcal Vaccine: Pediatrics [...] Additional history exists CKD HGB USE SMARTSET 32426 04/03/202504/03, 01/02/2024, 12/26/2023, Additional history exists CKD PHOS USE SMARTSET 69200 04/03/2025 04/03/2024, 0 10/17/2023 O2 ASSESSMENT COMPLETED [...] filedocumented as of this encounter Care Teams Coding File Clerk Relationship Specialty Start Date End Date JolynnOctober SHAQ Carter [address] [place] [address] PCP - General Physician Computer Systems Engineer 04/10/24 documented as of this encounter
--- OUTSIDE RECORDS SUMMARY | 2024-05-09 02:11 | External Medical Summary | Summary of Care ---
Author Name Unknown Organization [facility] Address [address] [facility] [place] [address] Phone [phone] Care Team Providers Care Entry Tech Name Role Phone Rina Neil PA-C Primary Care Provider [phone] Reason for Visit * Reason Onset Date Comments Medication Question 04/24/2024 Encounter Details Date Type Department Care Team (Late st Contact Info) Description 04/24/2024 Telephone Family [facility] [address] [facility] [place] [address] Rina Neil PA-C [address] [facility] [place] [address] Medication Question Allergies Active Allergy Reactions Criticality Noted Date Comments Penicillins Unknown 08/09/2023 documented as of this encounter (statuses as of 05/07/2024) Medications Medication Sig Dispensed Refills Start Date End Date Status Midodrine HCl 5 MG Oral Tablet (Proamatine) [...] and 1 Tablet before bedtime. 03/06/2024 Active Folic Acid 5 MG Oral Capsule Take 1 Capsule by mouth in the morning. 100 Capsule 3 11/16/2023 05/07/2024 Discontinued (Formulary/C ost) documented as of this encounter (statuses as of 05/07/2024) Active Problems Problem Noted Date Diagnosed Date Chronic kidney disease, stage 3a 04/08/2024 Overview: Per CKD protocol Alcoholic cirrhosis 12/19/2023 Ascites due to alcoholic cirrhosis 12/19/2023 COPD, 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 documented as of this encounter (statuses as of 05/07/2024) Immunizations Name Administration Dates Next Due Seasonal [...] encounter Miscellaneous Notes * Telephone Encounter - Pinky Dumas RN - 05/07/2024 4:12 PM EDT Pt will come in and get labs done. * Telephone Encounter - Rina Neil PA-C - 05/02/2024 7:54 PM EDT Call and advise repeat magnesium level before prescribimg * Telephone Encounter - Alba Mathews LPN - 05/02/2024 2:18 PM EDT When I pended the Rx a warning popped up showing a contraindication. Patient's creatinine clearanceis 56 and this medication is contraindicated in patients with a creatinine clearance of less than 59.99 * Telephone Encounter - Alba Mathews LPN - 05/02/2024 2:16 PM EDT Patient states he is taking magnesium. Reviewed outside meds, it shows Mag 64 1 tab BID. Order pended. * Telephone Encounter - Rina Neil PA-C - 05/01/2024 6:29 PM EDT Does he still need the magnesium * Telephone Encounter - Maia Sheffield CCMA - 05/01/2024 9:19 AM EDT Please read message below and advise. Patient has an appointment on 07/03. Thank You * Telephone Encounter - Rina Neil PA-C - 04/25/2024 1:32 PM EDT This patient was a no-show for his appointment. Please confirm * Telephone Encounter - Pinky Dumas RN - 04/24/2024 12:29 PM EDT Pt has appt with October tomorrow. * Telephone Encounter - Katelynn Ward PHARM Tech - 04/24/2024 10:52 AM EDT I could not find this on the pts medication list. Patient calling to request a refill on Magnesium Chloride Mag 64 . Medication was last prescribed by Dr Tyrese Gibbs but patient is asking if PCP can take over the medication. Please advise if this is appropriate and send to [facility] [place] [address] [address] [place] if agreeable. Thank you, Katelynn Ward Corporate Receptionist [facility] 04/24/2024,10:52 AM documented in this encounter Plan of Treatment Upcoming Encounters Date Type Department Care Team (Late st Contact Info) Description 05/09/2024 10:40 AM EDT Office Visit Nephrology, [facility] [place] [address] [place] [address] [address] Alessandra Sutherland MD [address] [place] [address] [place] [address] 05/09/2024 1:00 PM EDT Office Visit [facility] [address] [place] [address] [address] Rina Neil PA-C [address] [facility] [place] [address] 07/03/2024 10:00 AM EST Office Visit [facility] [address] [facility] [place] [address] Rina Neil PA-C [address] [place] [address] 08/27/2024 10:20 AM EST Office Visit Hepatology, [facility] 132 [place] [address] Sari Holder MD [address] [place] [address] [place] [address] 01/13/2025 1:45 PM EDT Imaging Radiology [facility] 132 [facility] [place] [address] 01/16/2025 3:00 PM EDT Office Visit Urology, [place] [address] [place] [address] Brianna Segovia PA-C [address] [place] [address] Scheduled Orders Name Type Priority Associated Diagnoses Orde r Schedule MAGNESIUM Lab Routine Hypomagnesemia Expected: 05/02/2024 (Approximate), Expires: 05/02/2025 Health Maintenance Due Date Last Done Comments DISCUSS TOBACCO CESSATION (REFER TO SMARTSET #2582) 1972 Lipid Panel 1972 Pneumococcal Vaccine: Pediatrics [...] Additional history exists CKD HGB USE SMARTSET 38990 04/03/202504/03, 01/02/2024, 12/26/2023, Additional history exists CKD PHOS USE SMARTSET 09501 04/03/2025 04/03/2024, 0 10/17/2023 O2 ASSESSMENT COMPLETED [...] as of this encounter Visit Diagnoses Diagnosis Hypomagnesemia- Primary Disorders of magnesium metabolism documented in this encounter Care Teams Entry Tech Relationship Specialty Start Date End Date Rina Neil PA-C [address] [place] [address] PCP - General Physician Rn Relief Charge 04/10/24 documented as of this encounter
--- OUTSIDE RECORDS SUMMARY | 2024-05-09 02:11 | External Medical Summary | Summary of Care ---
Author Name Unknown Organization [facility] Address [address] [place] [address] Phone [phone] Care Team Providers Care Correspondence Renew Clerk Name Role Phone Jolynn Rina Carter PA-C Primary Care Provider [phone] Reason for Visit * Reason Onset Date Comments Pre-Transplant Evaluation 04/26/2024 Encounter Details Date Type Department Care Team (Late st Contact Info) Description 04/26/2024 Telephone Transplant Clinic, [place] [address] [place] [address] Nicolle Liu RN Pre-Transplant Evaluation [...] encounter Miscellaneous Notes * Telephone Encounter - Rosalee Barnhart - No Ob/Or, [place] - 04/29/2024 8:56 AM EDT Santiago's roommate called back to talk with Nathaly Was admitted to the hospital ICU Martin Ram Please call her Cheri back [phone] Thank you rosalee * Telephone Encounter - Nathaly Montalvo OSA - 04/26/2024 12:43 PM EDT Contacted patient. Unable to take call as he was at an appointment. Will try later. documented in this encounter Plan of Treatment Upcoming Encounters Date Type Department Care Team (Late st Contact Info) Description 05/09/2024 10:40 AM EDT Office Visit Nephrology, [facility] 200 [facility] [place] [address] Alessandra Sutherland MD [address] [place] [address] [place] [address] 07/03/2024 10:00 AM EST Office Visit Family Practice [facility] 200 [facility] [place] [address] Rina Neil PA-C 200 [facility] [place] [address] 08/27/2024 10:20 AM EST Office Visit Hepatology, [facility] 132 [facility] [place] [address] Sari Holder MD [address] [place] [address] [place] [address] 01/13/2025 1:45 PM EDT Imaging Radiology [facility] 132 [facility] [place] [address] 01/16/2025 3:00 PM EDT Office Visit Urology, [place] [address] [place] [address] Brianna Segovia PA-C [address] [place], [place] [address] Health Maintenance Due Date Last Done Comments DISCUSS TOBACCO CESSATION (REFER TO SMARTSET #6058) 1972 Lipid Panel 1972 Pneumococcal Vaccine: Pediatrics [...] Additional history exists CKD HGB USE SMARTSET 41775 04/03/202504/03, 01/02/2024, 12/26/2023, Additional history exists CKD PHOS USE SMARTSET 33327 04/03/2025 04/03/2024, 0 10/17/2023 O2 ASSESSMENT COMPLETED [...] filedocumented as of this encounter Care Teams Correspondence Renew Clerk Relationship Specialty Start Date End Date Jolynn October Raul, SHAQ [address] [place] [address] PCP - General Physician Lawyers 04/10/24 documented as of this encounter
--- OUTSIDE RECORDS SUMMARY | 2024-05-09 02:11 | External Medical Summary | Summary of Care ---
Author Name Unknown Organization [facility] Address [address] [facility] [place] [address] Phone [phone] Care Team Providers Care Copping Machine Operator Name Role Phone Rina Neil PA-C Primary Care Provider [phone] Reason for Visit * Reason Onset Date Comments Hospital Follow-Up 05/06/2024 [facility] 05/05 ANAID call Encounter Details Date Type Department Care Team (Late st Contact Info) Description 05/06/2024 Telephone [facility] [place] [address] [place] [address] Leslie Ivy, RN Hospital Follow-Up ([facility] 05/05 ANAID call) Allergies Active Allergy Reactions Criticality Noted Date [...] encounter Miscellaneous Notes * Telephone Encounter - Leslie Ivy RN - 05/06/2024 1:35 PM EDT Transitions of Care Note Transitions of Care Note Reason for Referral:Recent Admission Phone visit for follow up: ANAID Admitted to: [facility], Date: 04/26 Discharged to: home, Date: 05/05 Diagnosis driving hospitalization: Symptomatic anemia 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 Decompensated alcoholic cirrhosis Hypervolemic hyponatremia GRACIELA on CKD stage III Source/Contact: Patient SUBJECTIVE Consent: Verbal consent for review of hospital discharge: Yes REVIEW OF SYSTEMS Patient/Other Reports: Current patient/caregiver problems or concerns: none at this time CV: Denies problems Pulmonary: Denies problems Chills/Sweats/Fever:Denies chills/sweats Denies fever Appetite:Denies problems such as nausea, vomiting, burning, decreased appetite Current diet: as before with 1800 cc/day fluid restriction Bowel: denies problems Bladder: denies problems Wound (If applicable): N/A Pain:Denies Sleep:Denies problems FUNCTIONAL STATUS: ADL'S: Needs Assistance With:N/A as pt is independent IADL'S: Needs Assistance With:N/A as pt is independent Cognitive and Mental Health: denies problems, alert and oriented x 3, and able to communicate, understand instructions, process information. MEDICATION RECONCILIATION Medications: No new medications or medication changes OBJECTIVE ASSESSMENT Medication Risk Assessment: No risks identified Did patient fail outpatient treatment? Yes Discharge instructions available for review? Yes PLAN Symptom Monitoring Interventions:Member/caregiver education - signs and symptoms to contact PrimaryCare (DO NOT DELETE-Three ramirez symptoms patient is to report to PCP) 1. Worsening edema - both legs and abdomen 2. Feeling dizzy/lightheaded 3. BRBPR or bloody emesis Accounting Office ManagerAfterschool Babysitter of Care interventions/Action Plan: Medication reconciliation and 5 - 7 day follow-up with PCP in place - Date: 05/09 Educated on role of ANAID completed with patient/caregiver. Educated patient/caregiver on patient right to have input on ANAID plan of care. Verification of Home Health/DME if indicated: NO Identified Care Gaps: Yes Care Gaps closed this call: Appointment made or confirmed, Medication adherence, and Transition of Care follow-up communication Re-evaluation of Plan of Care and progress towards goals achievement: Patient education this visit: Verbal, as before Plan to follow-up as previously scheduled, instructed to call Primary Care Provider with change in symptoms or as needed before next follow-up, discharge needs met, verbalizes understanding and agrees with plan. 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 Decompensated alcoholic cirrhosis Hypervolemic hyponatremia GRACIELA on CKD stage III Attempted Phone Call First Attempt Call Outcome Left Voicemail/Message documented in this encounter Plan of Treatment Upcoming Encounters Date Type Department Care Team (Late st Contact Info) Description 05/09/2024 10:40 AM EDT Office Visit Nephrology, [facility] [address] [place] [address] Alessandra Sutherland MD [address] [place] [address] [place] [address] 05/09/2024 1:00 PM EDT Office Visit [facility] [address] [place] [address] [address] Rina Neil PA-C [address] [place] [address] 07/03/2024 10:00 AM EST Office Visit [facility] [address] [place] [address] [address] Rina Neil PA-C [address] [place] [address] [address] 08/27/2024 10:20 AM EST Office Visit Hepatology, [facility] 132 [facility] [place] [address] Sari Holder MD [address] [facility] [address] 01/13/2025 1:45 PM EDT Imaging Radiology [facility] 132 [facility] [place] [address] 01/16/2025 3:00 PM EDT Office Visit Urology, [place] [address] [place] [address] Brianna Segovia PA-C [address] [place] [address] Health Maintenance Due Date Last Done Comments [...] Additional history exists CKD HGB USE SMARTSET 29013 04/03/202504/03, 01/02/2024, 12/26/2023, Additional history exists CKD PHOS USE SMARTSET 53420 04/03/2025 04/03/2024, 0 10/17/2023 O2 ASSESSMENT COMPLETED [...] filedocumented as of this encounter Care Teams Copping Machine Operator Relationship Specialty Start Date End Date Jolynn Rina Raul, SHAQ [address] [place] [address] PCP - General Physician Material Worker 04/10/24 documented as of this encounter
[2024-05-09] MEDS: ALBUMIN 25% 25 GM/100 ML VIAL IV ONE (06:23)
[2024-05-09 06:29] LABS: Hematocrit (blood only) 21.6 % (42.0-52.0); Hemoglobin 7.2 g/dl (14.0-18.0); Mean Corpuscular Hemoglobin 32.1 pg (25.0-34.0); Mean Corpuscular Hgb Conc 33.3 g/dL (32.0-36.0); Mean Corpuscular Volume 96.4 fL (80.0-100.0); Mean Platelet Volume 9.9 fL (9.4-12.4); Platelet Count 157 K/uL (130-400); RDW Standard Deviation 59.2 fL (36.4-46.3); Red Blood Count 2.24 M/uL (4.70-6.10); White Blood Count 9.98 K/ul (4.8-10.8)
[2024-05-09 06:40] LABS: Bilirubin,Total 2.1 mg/dl (0.2-1.0); Calcium 8.5 mg/dl (8.6-10.3); Creatinine Clr Calc Pharmacy 42.4 ml/min; Globulin 3.1 gm/dl (2.5-4.0); Magnesium 1.9 mg/dl (1.7-2.4); Potassium 4.8 mmol/L (3.5-5.1); Total Protein 6.1 gm/dl (6.0-8.3)
[2024-05-09 07:02] LABS: INR 1.2 (0.9-1.1); Partial Thromboplastin Ratio 1.1; Partial Thromboplastin Time 29 Seconds (21-31); Prothrombin Time 12.7 Seconds (9.0-12.0)
[2024-05-09] MEDS: FLUTICASONE FUROATE 100MCG 14 PUFFS/INHALER INH SCH (08:54)
[2024-05-09] MEDS: FOLIC ACID 1 MG TAB PO SCH (08:57)
[2024-05-09] MEDS ORDERED: NICOTINE 21 MG/24 HR TDSY TD SCH (09:00)
--- NOTE | 2024-05-09 09:02 | Hospitalist Progress Note ---
Date of Service May 09, 2024 Assessment & Plan (1) Alcoholic cirrhosis of liver with ascites: Plan: Patient is a 53-year-old male with PMH Alcoholic cirrhosis, ascites requiring frequent paracentesis, portal gastropathy, CKD IV and others listed below prese nted to ER with c/o increased abdominal distension. Was scheduled to have outpatient paracentesis tomorrow however patient felt uncomfortable so came to ER today. Denies abdominal pain. Last paracentesis done on 04/29/24 with 9 L fluid taken off No abdominal pain, fever/chills. Do not suspect SBP at this time. Plan for diagnostic and therapeutic paracentesis today. ER provider had discussed with IR provider who plans to do procedure. Will plan for dose of albumin given prior to paracentesis Normal ammonia level. Continue lactulose MELD score 25 - 19.6% estimated 3-months mortality. 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 Will further discuss w/ GI while inpt (2) Anemia: (3) History of upper gastrointestinal bleeding: Plan: History Upper GI bleed Secondary to portal gastropathy S/P Endoscopy on 04/28/24 and was found to have active oozing from portal hypertensive gastropathy and pt underwent APC and Hemoclip placement. Hgb: 6.9, was 7.4 on 05/05/24 Continue p.o. Protonix 40 mg twice a day Fecal occult blood positive Transfused 1 unit PRBC on admission - Hgb from 6.9 to 7.2. Plan to transfuse today. GI consulted and discussed with -> plan for repeat EGD today (05/09/24) Monitor H&H and transfuse as needed (4) GRACIELA (acute kidney injury): Plan: Recent GRACIELA hospitalization. On admission Cr: 2.6, was 1.8 on 05/05/24 GRACIELA on CKD IV Hold home torsemide Decrease home gabapentin dose secondary to current renal function Monitor renal functions Nephrology consulted (5) Hyponatremia: Plan: Na: 128. Was 131 on 05/05/24 Likely Hypervolemic hyponatremia Nephrology consult DVT Prophylaxis SCDs Admit telemetry Full Code as per discussion with pt Follows with Rina Neil PA-C for routine care Admission and Anticipated Discharge Date Admission Date: May 08, 2024 Subjective Pt seen in follow up of ascites, hx of cirrhosis, anemia Recently discharged from hospital Yesterday on admission Hgb 6.9 -> received 1 unit of pRBC - Hgb this AM 7.2 Currently laying in bed in NAD, denies abd. pain. , occult stool blood positive Denies fever, chills, chest pain, shortness of breath Review of Systems Review of Systems: All systems reviewed & are unremarkable except as noted in Subjective Physical Exam Physical Exam: General: no acute distress, chronically ill appearing male Head: normocephalic, atraumatic Eyes: eomi ENT: normal inspection external ears, nose, mucous membranes moist Neck: supple Lungs: clear, no respiratory distress, no wheezing/rhonchi/rales CV: RRR, 1+pretibial edema Abd: +ascites, non-tender to palpation, normal BS Ext: moves extremities Neuro: A&O x 3, answers appropriately, no focal deficits noted, normal affect Skin: warm, dry Results & Data Results & Data Vital Signs (Past 12 Hours) Vital Signs Temp Pulse Pulse Resp BP Pulse Ox O2 Del Method 05/09/24 07:07 37.0 C 73 16 103/55 L 97 Room Air 05/09/24 03:08 36.6 C 79 16 123/78 98 Room Air 05/08/24 22:51 69 05/08/24 22:48 37.0 C 68 18 108/64 96 Room Air Laboratory Results 05/09/24 05/09/24 05/08/24 Range/Units 05:59 02:45 15:50 WBC 9.98 (4.8-10.8) K/ul RBC 2.24 L (4.70-6.10) M/uL Hgb 7.2 L (14.0-18.0) g/dl Hct 21.6 L (42.0-52.0) % MCV 96.4 (80.0-100.0) fL MCH 32.1 (25.0-34.0) pg MCHC 33.3 (32.0-36.0) g/dL RDW Std Deviation 59.2 H (36.4-46.3) fL RDW Coeff of Ham 17.0 H (11.5-14.5) % Plt Count 157 (130-400) K/uL MPV 9.9 (9.4-12.4) fL Immature Gran % (Auto) % Neut % (Auto) % Lymph % (Auto) % [place] % (Auto) % Eos % (Auto) % Baso % (Auto) % Neut # (Auto) (1.40-6.50) K/uL Lymph # (Auto) (1.20-3.40) K/uL [place] # (Auto) (0.11-0.59) K/uL Eos # (Auto) (0.00-0.50) K/uL Baso # (Auto) (0.00-0.20) K/uL Immature Gran # (Auto) (0.01-0.20) K/uL RBC Morphology PT 12.7 H (9.0-12.0) Seconds INR 1.2 H (0.9-1.1) APTT 29 (21-31) Seconds PTT Ratio 1.1 Sodium 129 L (136-145) mmol/L Potassium 4.8 (3.5-5.1) mmol/L Chloride 97 L (98-107) mmol/L Carbon Dioxide 27 (21-32) mmol/L Anion Gap 5 (3-11) BUN 70 H (6-23) mg/dl Creatinine 2.26 H D (0.6-1.4) mg/dl Est Cr Clr Drug Dosing 42.4 eGFR 34.25 BUN/Creatinine Ratio 31.0 H (10-20) Glucose 103 H (70-99(Fasting)) mg/dl Calcium 8.5 L (8.6-10.3) mg/dl Magnesium 1.9 (1.7-2.4) mg/dl Iron Unsaturated IBC Transferrin Ferritin Total Bilirubin 2.1 H D (0.2-1.0) mg/dl AST 18 (13-39) U/L ALT 6 L (7-52) U/L Alkaline Phosphatase 41 (34-104) U/L Ammonia (18-72) umol/L Troponin I High Sens (0-20) pg/ml Total Protein 6.1 (6.0-8.3) gm/dl Albumin 3.0 L (3.4-5.0) gm/dl Globulin 3.1 (2.5-4.0) gm/dl Albumin/Globulin Ratio 1.0 (0.9-2) Lipase (11-82) U/L Vitamin B12 (180-914) pg/ml Folate (>5.38) ng/ml Urine Color Yellow Urine Appearance Clear (Clear) Urine pH 5.5 (4.5-7.5) Ur Specific [place] 1.008 (1.000-1.030) Urine Protein Negative (Negative) Urine Glucose (UA) Negative (Negative) Urine Ketones Negative (Negative) Urine Blood Negative (Negative) Urine Nitrite Negative (Negative) Urine Bilirubin Negative (Negative) Urine Urobilinogen Negative (Negative) Ur Leukocyte Esterase Negative (Negative) Stool Occult Bld Scrn Positive A (Negative) Ethyl Alcohol mg/dL (<10.0) mg/dl Blood Type Antibody Screen Crossmatch 05/08/24 05/08/24 05/08/24 Range/Units 14:51 14:11 12:32 WBC 9.55 (4.8-10.8) K/ul RBC 2.15 L (4.70-6.10) M/uL Hgb 6.9 L* (14.0-18.0) g/dl Hct 20.8 L* (42.0-52.0) % MCV 96.7 (80.0-100.0) fL MCH 32.1 (25.0-34.0) pg MCHC 33.2 (32.0-36.0) g/dL RDW Std Deviation 61.3 H (36.4-46.3) fL RDW Coeff of Ham 17.5 H (11.5-14.5) % Plt Count 166 (130-400) K/uL MPV 10.2 (9.4-12.4) fL Immature Gran % (Auto) 1.0 % Neut % (Auto) 66.4 % Lymph % (Auto) 12.5 % [place] % (Auto) 8.5 % Eos % (Auto) 10.6 % Baso % (Auto) 1.0 % Neut # (Auto) 6.34 (1.40-6.50) K/uL Lymph # (Auto) 1.19 L (1.20-3.40) K/uL [place] # (Auto) 0.81 H (0.11-0.59) K/uL Eos # (Auto) 1.01 H (0.00-0.50) K/uL Baso # (Auto) 0.10 (0.00-0.20) K/uL Immature Gran # (Auto) 0.10 (0.01-0.20) K/uL RBC Morphology Unremarkable PT (9.0-12.0) Seconds INR (0.9-1.1) APTT (21-31) Seconds PTT Ratio Sodium 128 L (136-145) mmol/L Potassium 4.6 (3.5-5.1) mmol/L Chloride 95 L (98-107) mmol/L Carbon Dioxide 25 (21-32) mmol/L Anion Gap 8 (3-11) BUN 65 H (6-23) mg/dl Creatinine 2.66 H (0.6-1.4) mg/dl Est Cr Clr Drug Dosing Not Reportable eGFR 28.17 BUN/Creatinine Ratio 24.4 H (10-20) Glucose 163 H (70-99(Fasting)) mg/dl Calcium 8.7 (8.6-10.3) mg/dl Magnesium (1.7-2.4) mg/dl Iron 34 L Cancelled Unsaturated IBC 169 Cancelled Transferrin 157 L Cancelled Ferritin 241.4 Cancelled Total Bilirubin 1.2 H (0.2-1.0) mg/dl AST 24 (13-39) U/L ALT 7 (7-52) U/L Alkaline Phosphatase 72 (34-104) U/L Ammonia 38.0 (18-72) umol/L Troponin I High Sens 11.3 (0-20) pg/ml Total Protein 6.7 (6.0-8.3) gm/dl Albumin 3.3 L (3.4-5.0) gm/dl Globulin 3.4 (2.5-4.0) gm/dl Albumin/Globulin Ratio 1.0 (0.9-2) Lipase 58 (11-82) U/L Vitamin B12 461 (180-914) pg/ml Folate 22.27 (>5.38) ng/ml Urine Color Urine Appearance (Clear) Urine pH (4.5-7.5) Ur Specific [place] (1.000-1.030) Urine Protein (Negative) Urine Glucose (UA) (Negative) Urine Ketones (Negative) Urine Blood (Negative) Urine Nitrite (Negative) Urine Bilirubin (Negative) Urine Urobilinogen (Negative) Ur Leukocyte Esterase (Negative) Stool Occult Bld Scrn (Negative) Ethyl Alcohol mg/dL < 10.0 (<10.0) mg/dl Blood Type A Negative Antibody Screen NEGATIVE Crossmatch See Detail Medications Administered Current Inpatient Medications Acetaminophen (Acetaminophen 325 Mg Tab) 650 mg PO Q4H PRN PRN Reason: Pain or Fever Stop: 06/07/24 16:45 Fluticasone Furoate (Fluticasone Furoate 100mcg 14 Puffs/Inhaler) 1 puffs INH QAM GAIL Stop: 06/08/24 08:59 Folic Acid (Folic Acid 1 Mg Tab) 5 mg PO QAM GAIL Stop: 06/08/24 08:59 Gabapentin (Gabapentin 300 Mg Cap) 300 mg PO BID GAIL Stop: 06/07/24 20:59 Last Admin: 05/08/24 20:09 Dose: 300 mg Albumin Human (Albumin 25%) 25 gm in 100 mls @ 50 mls/hr IV ONE ONE Stop: 05/09/24 08:59 Last Admin: 05/09/24 06:23 Dose: 50 mls/hr Lactulose (Lactulose Syrup 20 Gm/30 Ml Udc) 20 gm PO BID GAIL Stop: 06/07/24 20:59 Last Admin: 05/08/24 20:10 Dose: 20 gm Midodrine (Midodrine Hcl 10 Mg Tab) 10 mg PO 0700,1200,1700 GAIL Stop: 06/07/24 16:59 Last Admin: 05/09/24 06:23 Dose: 10 mg Miscellaneous (Remove Nicoderm Patch) 1 each N/A DAILY@0859 [facility] Stop: 06/08/24 08:58 Nicotine (Nicotine 21 Mg/24 Hr Tdsy) 1 patch TD DAILY GAIL Stop: 06/07/24 20:29 Last Admin: 05/08/24 21:16 Dose: 1 patch Ondansetron HCl (Ondansetron Inj 2 Mg/Ml 2 Ml Vial) 4 mg IV Q6H PRN PRN Reason: Nausea Stop: 06/07/24 16:45 Pantoprazole Sodium (Pantoprazole 40 Mg Tab) 40 mg PO BID GAIL Stop: 06/07/24 20:59 Last Admin: 05/08/24 20:09 Dose: 40 mg (2) Anemia Anemia type: iron deficiency
[2024-05-09] MEDS ORDERED: SODIUM CHLORIDE 0.9% 250 ML IV PRN (09:19)
--- NOTE | 2024-05-09 09:24 | Gastrointestinal Consultation ---
<Statement entered by Lamont Gallegos MD - 05/09/24 11:14> Patient seen and examined and case discussed with David PEARSON. Will proceed with EGD. This procedure, the alternatives including no work up or treatment, risks and benefits were discussed. Among the risks discussed included cardiorespiratory suppression, aspiration, bleeding, failure to diagnose cancer or other pathology and perforation requiring surgery. In addition we discussed that if specimens are obtained it may be deemed beneficial to send these for genetic/DNA testing. The patient claimed to understand all that was discussed, consented to all and all of his questions were answered. 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 Please call with any acute changes, questions or concerns. Please see addendum below with additional recommendation from my supervising physician. I spent a total of 60 minutes on the date of service in review of patient's record, and previously obtained information in person and appropriate medical visit, discussion and education of plan, with patient and/or caregiver, placing orders for tests/referral/procedures as medically necessary and documentation of pertinent clinical information in patient's medical records for their visit today. We appreciate assistance in the management of any serological abnormality and corrections to include: hemoglobin >7, INR <2, platelets >50,000, potassium levels >3.5 but <5.3, and sodium levels within 5 points of the reference range prior to endoscopic evaluation. History of Present Illness Reason for Consultation: ascites, anemia, gave Requesting Physician: Akhil Sousa MD Attending Physician: Akhil Sousa MD History of Present Illness 53 year old male w/ COPD, renal cyst, CKD, chronic anemia, cirrhosis recently admitted w/ anemia s/p EGD 04/28 w/ evidence of bleeding GAVE treated with APC and clips who is re-admitted through the ED w/ abdominal distention, request for a paracentesis. GI was asked to evaluate for ascites, anemia, gave. Pt was seen and evaluated, chart reviewed. Suggests since last admission he has yet to return his hepatolgist phone calls to arrange follow up or labs/imaging. Notes that prior to his ED arrival he has had worsening abd distention. Feels full, bloated. Denies nausea/vomiting to me. He notes he had a dark stool but was told by hospital staff that his stools looked blakc overnight. Denies hematemesis, coffee ground emesis or hematochezia. 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 2.26 INR 1.2 Tbili 2.1 AST 18 ALT 6 ALKP 41 Ammonia 38 Allergies Allergy/AdvReac Type Severity Reaction Status Date / Time Penicillins Allergy Unknown pt unsure Verified 04/02/24 12:32 of reaction Home Medications Medication Instructions Recorded Confirmed Type pantoprazole 40 mg tablet,delayed 40 mg PO BID 3 months #180 tabs 03/15/24 05/08/24 Rx release fluticasone furoate 100 1 inh inhalation QAM 04/12/24 05/08/24 History mcg/actuation blister powder for inhalation (Arnuity Ellipta) gabapentin 300 mg capsule 300 mg PO TID 04/12/24 05/08/24 History midodrine 5 mg tablet 10 mg (2 x 5 mg) PO TID #180 tabs 04/15/24 05/08/24 Rx folic acid 1 mg tablet 5 mg PO QAM 05/08/24 05/08/24 History lactulose 20 gram/30 mL oral 20 g PO BID PRN Constipation 05/08/24 05/08/24 History solution torsemide 20 mg tablet 40 mg PO AMHS 05/08/24 05/08/24 History Patient History Medical History Hypervolemia Symptomatic anemia hospitalized [facility] 02/26/24 for issues related to this Poor historian main details obtained from [facility] record Alcoholic cirrhosis of liver with ascites hospitalized [facility] 02/26/24 for issues related to this Metabolic encephalopathy hospitalized [facility] 02/26/24 for issues related to this PAF (paroxysmal atrial fibrillation) pt denies; hospitalized [facility] 02/26/24, evaluated by tae garcia per cardio consult Esophagitis History of severe sepsis hospitalized 02/26/24, [facility] 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 per med record; hospitalized [facility] 02/26/24 for issues related to this Orthostatic hypotension "he thinks" COPD (chronic obstructive pulmonary disease) History of pneumonia 07/2023, 02/26/24, hospitalized [facility] 02/26/24 for issues related to this Chronic kidney disease, stage 4 (severe) S/P abdominal paracentesis 03/21/2024, [facility] Current every day smoker Surgical History History of esophagogastroduodenoscopy (EGD) S/P cataract extraction right eye/left History of tonsillectomy History of hernia surgery infancy Family History Mother Stroke Diabetes Other Colorectal cancer Heart disease Social History Smoking Status: Current every day smoker Tobacco Type: Cigarettes Cigarettes Per Day: 8; Second Hand Exposure: No; Do You Dip or Chew Tobacco: No; Tobacco Cessation Education Requested by Patient: No Hx Alcohol Use: No Hx Substance Use: Yes Substance Use Type Other:: marijuana Preferred Language: Tongan Communication Ability: Effective Pharmacy Delivery Driver Required: No Beliefs That Will Affect Care: None Current Living Situation: Other Current Living Situation Comment: roommate Other Information That Helps Us Care for You: No Feels Safe at Home: Yes Safety Concerns: Feels Safe At This Time Assistive Devices: Glasses Review of Systems Review of Systems: All other findings negative except as noted in HPI. Physical Exam Constitutional: WD/WN, vitals as above Respiratory: normal respiratory effort, lungs clear to auscultation Cardiovascular: Rate/Rhythm: regular rate Gastrointestinal (Abdomen): Percussion/Palpation: abdomen soft; abdomen nontender, no guarding and abdomen not rigid +ascites Skin: no rashes, warm and dry Results & Data Vital Signs (Past 12 Hours) Vital Signs Temp Pulse Pulse Resp BP Pulse Ox O2 Del Method 05/09/24 07:07 37.0 C 73 16 103/55 L 97 Room Air 05/09/24 03:08 36.6 C 79 16 123/78 98 Room Air 05/08/24 22:51 69 05/08/24 22:48 37.0 C 68 18 108/64 96 Room Air Laboratory Results 05/09/24 05/09/24 05/08/24 Range/Units 05:59 02:45 15:50 WBC 9.98 (4.8-10.8) K/ul RBC 2.24 L (4.70-6.10) M/uL Hgb 7.2 L (14.0-18.0) g/dl Hct 21.6 L (42.0-52.0) % MCV 96.4 (80.0-100.0) fL MCH 32.1 (25.0-34.0) pg MCHC 33.3 (32.0-36.0) g/dL RDW Std Deviation 59.2 H (36.4-46.3) fL RDW Coeff of Ham 17.0 H (11.5-14.5) % Plt Count 157 (130-400) K/uL MPV 9.9 (9.4-12.4) fL Immature Gran % (Auto) % Neut % (Auto) % Lymph % (Auto) % [place] % (Auto) % Eos % (Auto) % Baso % (Auto) % Neut # (Auto) (1.40-6.50) K/uL Lymph # (Auto) (1.20-3.40) K/uL [place] # (Auto) (0.11-0.59) K/uL Eos # (Auto) (0.00-0.50) K/uL Baso # (Auto) (0.00-0.20) K/uL Immature Gran # (Auto) (0.01-0.20) K/uL RBC Morphology PT 12.7 H (9.0-12.0) Seconds INR 1.2 H (0.9-1.1) APTT 29 (21-31) Seconds PTT Ratio 1.1 Sodium 129 L (136-145) mmol/L Potassium 4.8 (3.5-5.1) mmol/L Chloride 97 L (98-107) mmol/L Carbon Dioxide 27 (21-32) mmol/L Anion Gap 5 (3-11) BUN 70 H (6-23) mg/dl Creatinine 2.26 H D (0.6-1.4) mg/dl Est Cr Clr Drug Dosing 42.4 eGFR 34.25 BUN/Creatinine Ratio 31.0 H (10-20) Glucose 103 H (70-99(Fasting)) mg/dl Calcium 8.5 L (8.6-10.3) mg/dl Magnesium 1.9 (1.7-2.4) mg/dl Iron Unsaturated IBC Transferrin Ferritin Total Bilirubin 2.1 H D (0.2-1.0) mg/dl AST 18 (13-39) U/L ALT 6 L (7-52) U/L Alkaline Phosphatase 41 (34-104) U/L Ammonia (18-72) umol/L Troponin I High Sens (0-20) pg/ml Total Protein 6.1 (6.0-8.3) gm/dl Albumin 3.0 L (3.4-5.0) gm/dl Globulin 3.1 (2.5-4.0) gm/dl Albumin/Globulin Ratio 1.0 (0.9-2) Lipase (11-82) U/L Vitamin B12 (180-914) pg/ml Folate (>5.38) ng/ml Urine Color Yellow Urine Appearance Clear (Clear) Urine pH 5.5 (4.5-7.5) Ur Specific [place] 1.008 (1.000-1.030) Urine Protein Negative (Negative) Urine Glucose (UA) Negative (Negative) Urine Ketones Negative (Negative) Urine Blood Negative (Negative) Urine Nitrite Negative (Negative) Urine Bilirubin Negative (Negative) Urine Urobilinogen Negative (Negative) Ur Leukocyte Esterase Negative (Negative) Stool Occult Bld Scrn Positive A (Negative) Ethyl Alcohol mg/dL (<10.0) mg/dl Blood Type Antibody Screen Crossmatch 05/08/24 05/08/24 05/08/24 Range/Units 14:51 14:11 12:32 WBC 9.55 (4.8-10.8) K/ul RBC 2.15 L (4.70-6.10) M/uL Hgb 6.9 L* (14.0-18.0) g/dl Hct 20.8 L* (42.0-52.0) % MCV 96.7 (80.0-100.0) fL MCH 32.1 (25.0-34.0) pg MCHC 33.2 (32.0-36.0) g/dL RDW Std Deviation 61.3 H (36.4-46.3) fL RDW Coeff of [place] 17.5 H (11.5-14.5) % Plt Count 166 (130-400) K/uL MPV 10.2 (9.4-12.4) fL Immature Gran % (Auto) 1.0 % Neut % (Auto) 66.4 % Lymph % (Auto) 12.5 % [place] % (Auto) 8.5 % Eos % (Auto) 10.6 % Baso % (Auto) 1.0 % Neut # (Auto) 6.34 (1.40-6.50) K/uL Lymph # (Auto) 1.19 L (1.20-3.40) K/uL [place] # (Auto) 0.81 H (0.11-0.59) K/uL Eos # (Auto) 1.01 H (0.00-0.50) K/uL Baso # (Auto) 0.10 (0.00-0.20) K/uL Immature Gran # (Auto) 0.10 (0.01-0.20) K/uL RBC Morphology Unremarkable PT (9.0-12.0) Seconds INR (0.9-1.1) APTT (21-31) Seconds PTT Ratio Sodium 128 L (136-145) mmol/L Potassium 4.6 (3.5-5.1) mmol/L Chloride 95 L (98-107) mmol/L Carbon Dioxide 25 (21-32) mmol/L Anion Gap 8 (3-11) BUN 65 H (6-23) mg/dl Creatinine 2.66 H (0.6-1.4) mg/dl Est Cr Clr Drug Dosing Not Reportable eGFR 28.17 BUN/Creatinine Ratio 24.4 H (10-20) Glucose 163 H (70-99(Fasting)) mg/dl Calcium 8.7 (8.6-10.3) mg/dl Magnesium (1.7-2.4) mg/dl Iron 34 L Cancelled Unsaturated IBC 169 Cancelled Transferrin 157 L Cancelled Ferritin 241.4 Cancelled Total Bilirubin 1.2 H (0.2-1.0) mg/dl AST 24 (13-39) U/L ALT 7 (7-52) U/L Alkaline Phosphatase 72 (34-104) U/L Ammonia 38.0 (18-72) umol/L Troponin I High Sens 11.3 (0-20) pg/ml Total Protein 6.7 (6.0-8.3) gm/dl Albumin 3.3 L (3.4-5.0) gm/dl Globulin 3.4 (2.5-4.0) gm/dl Albumin/Globulin Ratio 1.0 (0.9-2) Lipase 58 (11-82) U/L Vitamin B12 461 (180-914) pg/ml Folate 22.27 (>5.38) ng/ml Urine Color Urine Appearance (Clear) Urine pH (4.5-7.5) Ur Specific [place] (1.000-1.030) Urine Protein (Negative) Urine Glucose (UA) (Negative) Urine Ketones (Negative) Urine Blood (Negative) Urine Nitrite (Negative) Urine Bilirubin (Negative) Urine Urobilinogen (Negative) Ur Leukocyte Esterase (Negative) Stool Occult Bld Scrn (Negative) Ethyl Alcohol mg/dL < 10.0 (<10.0) mg/dl Blood Type A Negative Antibody Screen NEGATIVE Crossmatch See Detail PG Care Time/CCT Total # of Minutes Spent Total Time Spent with Patient: Total time spent is greater than 50% in coordination of care (as documented) at patient's floor/unit and/or counseling patient: Coding Level of Care Code 05645 INT INP/OBS CARE MIN Diagnoses History of upper gastrointestinal bleeding Z87.19
--- NOTE | 2024-05-09 09:43 | Nephrology Consultation ---
Date of Consultation May 09, 2024 History of Present Illness Reason for Consultation: GRACIELA on CKD Requesting Physician: Dr Salcedo Attending Physician: Akhil Sousa MD History of Present Illness 53 y/o M whom I'm asked to see for GRACIELA on CKD was admitted last evening Allergies Allergy/AdvReac Type Severity Reaction Status Date / Time Penicillins Allergy Unknown pt unsure Verified 04/02/24 12:32 of reaction Home Medications Medication Instructions Recorded Confirmed Type pantoprazole 40 mg tablet,delayed 40 mg PO BID 3 months #180 tabs 03/15/24 05/08/24 Rx release fluticasone furoate 100 1 inh inhalation QAM 04/12/24 05/08/24 History mcg/actuation blister powder for inhalation (Arnuity Ellipta) gabapentin 300 mg capsule 300 mg PO TID 04/12/24 05/08/24 History midodrine 5 mg tablet 10 mg (2 x 5 mg) PO TID #180 tabs 04/15/24 05/08/24 Rx folic acid 1 mg tablet 5 mg PO QAM 05/08/24 05/08/24 History lactulose 20 gram/30 mL oral 20 g PO BID PRN Constipation 05/08/24 05/08/24 History solution torsemide 20 mg tablet 40 mg PO AMHS 05/08/24 05/08/24 History Patient History Medical History Hypervolemia Symptomatic anemia hospitalized [facility] 02/26/24 for issues related to this Poor historian main details obtained from [facility] med record Alcoholic cirrhosis of liver with ascites hospitalized [facility] 02/26/24 for issues related to this Metabolic encephalopathy hospitalized [facility] 02/26/24 for issues related to this PAF (paroxysmal atrial fibrillation) pt denies; hospitalized [facility] 02/26/24, evaluated by tae garcia per cardio consult Esophagitis History of severe sepsis hospitalized 02/26/24, [facility] 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 per med record; hospitalized [facility] 02/26/24 for issues related to this Orthostatic hypotension "he thinks" COPD (chronic obstructive pulmonary disease) History of pneumonia 07/2023, 02/26/24, hospitalized [facility] 02/26/24 for issues related to this Chronic kidney disease, stage 4 (severe) S/P abdominal paracentesis 03/21/2024, [facility] Current every day smoker Surgical History History of esophagogastroduodenoscopy (EGD) S/P cataract extraction right eye/left History of tonsillectomy History of hernia surgery infancy Family History Mother Stroke Diabetes Other Colorectal cancer Heart disease Social History Smoking Status: Current every day smoker Tobacco Type: Cigarettes Cigarettes Per Day: 8; Second Hand Exposure: No; Do You Dip or Chew Tobacco: No; Tobacco Cessation Education Requested by Patient: No Hx Alcohol Use: No Hx Substance Use: Yes Substance Use Type Other:: marijuana Preferred Language: Slovenian Communication Ability: Effective Director Title Required: No Beliefs That Will Affect Care: None Current Living Situation: Other Current Living Situation Comment: roommate Other Information That Helps Us Care for You: No Feels Safe at Home: Yes Safety Concerns: Feels Safe At This Time Assistive Devices: Glasses Results & Data Vital Signs (Past 12 Hours) Vital Signs Temp Pulse Pulse Resp BP Pulse Ox O2 Del Method 05/09/24 07:07 37.0 C 73 16 103/55 L 97 Room Air 05/09/24 03:08 36.6 C 79 16 123/78 98 Room Air 05/08/24 22:51 69 05/08/24 22:48 37.0 C 68 18 108/64 96 Room Air
[2024-05-09 11:55] LABS: Albumin Peritoneal Fluid 1.7 gm/dl
[2024-05-09 12:00] LABS: Total Protein Peritoneal Fluid < 3.0 gm/dl
--- OUTSIDE RECORDS SUMMARY | 2024-05-09 12:10 | External Medical Summary | Summary of Care ---
Author Name Unknown Organization [facility] Address [address] [place] [address] Phone [phone] Care Team Providers Care Software Validation Engineer Name Role Phone Jolynn Rina Raul NEW Primary Care Provider [phone] Reason for Visit * Reason Onset Date Comments Pre-Transplant Evaluation 05/08/2024 Encounter Details Date Type Department Care Team (Late st Contact Info) Description 05/08/2024 Telephone Transplant Clinic, [place] [address] [place] [address] Nicolle Liu RN Pre-Transplant Evaluation Allergies Active Allergy Reactions Criticality Noted Date Comments Penicillins Unknown 08/09/2023 documented as of this encounter (statuses as of 05/08/2024) Medications Medication Sig Dispensed Refills Start Date [...] Tablet before bedtime. 03/06/2024 Active Folic Acid 1 MG Oral Tablet Take 5 Tablets by mouth in the morning. 150 Tablet 5 05/07/2024 Active documented as of this encounter (statuses as of 05/08/2024) Active Problems Problem Noted Date Diagnosed Date Chronic kidney disease, stage 3a 04/08/2024 Overview: Per CKD protocol Alcoholic cirrhosis 12/19/2023 Ascites due to alcoholic cirrhosis 12/19/2023 COPD, 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 documented as of this encounter (statuses as of 05/08/2024) Immunizations Name Administration Dates Next Due Seasonal [...] Miscellaneous Notes * Telephone Encounter - Nathaly Montalvo OSA - 05/08/2024 11:18 AM EDT No answer, Left message for patient to return call for pre transplant screening. documented in this encounter Plan of Treatment Upcoming Encounters Date Type Department Care Team (Late st Contact Info) Description 05/09/2024 10:40 AM EDT Office Visit Nephrology, [facility] [address] [place] [address] Alessandra Sutherland MD [address] [place] [address] 05/09/2024 1:00 PM EDT Office Visit [facility] [address] [facility] [address] [place] [address] Rina Neil PA-Armando [address] [place] [address] 07/03/2024 10:00 AM EST Office Visit [facility] [address] [place] [address] Rina Neil PA-C [address] [place] [address] 08/27/2024 10:20 AM EST Office Visit Hepatology, [facility] [address] [facility] [place] [address] Sari Holder MD [address] [place], [place] [address] [address] 01/13/2025 1:45 PM EDT Imaging Radiology [facility] [address] [facility] [place] [address] 01/16/2025 3:00 PM EDT Office Visit Urology, [address] [facility] [place] [address] Brianna Segovia PA-C [address] [place] [address] Health Maintenance Due Date Last Done Comments DISCUSS TOBACCO CESSATION (REFER TO SMARTSET #3100) 1970 Lipid Panel 1970 Pneumococcal Vaccine: Pediatrics [...] Additional history exists CKD HGB USE SMARTSET 73755 04/03/202504/03, 01/02/2024, 12/26/2023, Additional history exists CKD PHOS USE SMARTSET 40601 04/03/2025 04/03/2024, 0 10/17/2023 O2 ASSESSMENT COMPLETED [...] filedocumented as of this encounter Care Teams Software Validation Engineer Relationship Specialty Start Date End Date Jolynn October Raul, SHAQ [address] [place], [place] [address] PCP - General Physician Shipping Assistant 04/10/24 documented as of this encounter
--- OUTSIDE RECORDS SUMMARY | 2024-05-09 12:10 | External Medical Summary | Summary of Care ---
Author Name Unknown Organization [facility] Address [address] [facility] [place] [address] Phone [phone] Care Team Providers Care Print Washer Name Role Phone Rina Neil PA-C Primary Care Provider [phone] Reason for Visit * Reason Onset Date Comments Medication Problem 05/07/2024 Pharmacy unab le to get Folic Acid 5 mg Encounter Details Date Type Department Care Team (Late st Contact Info) Description 05/07/2024 Telephone Family Practice [facility] 200 [facility] [place] [address] Rina Neil PA-C [address] [facility] [place] [address] Medication Problem (Pharmacy unable to get... Allergies Active Allergy Reactions Criticality Noted Date [...] the morning. 150 Tablet 5 05/07/2024 Active Folic Acid 5 MG Oral Capsule [...] Telephone Encounter - Leslie Ivy RN - 05/08/2024 12:02 PM EDT Pt aware * Telephone Encounter - Leslie Ivy RN - 05/07/2024 10:03 AM EDT October, Santiago was prescribed Folic Acid 5 mg back in the spring. When I did his ANAID call he told me the pharmacy is unable to get the 5 mg dose. I spoke to [facility] and they have not been able to get this dose for years. I pended the 1 mg to take 5 daily. Please sign if appropriate or change dose. Please route this back to me so I can let him know. Thanks. documented in this encounter Plan of Treatment Upcoming Encounters Date Type Department Care Team (Late st Contact Info) Description 05/09/2024 10:40 AM EDT Office Visit Nephrology, [facility] [place] [address] [place] [address] Alessandra Sutherland MD [address] [place] [address] 05/09/2024 1:00 PM EDT Office Visit [facility] [address] [place] [address] Rina Neil PA-C [address] [place] [address] 07/03/2024 10:00 AM EST Office Visit Family Practice [facility] [address] [facility] [place] [address] Rina Neil PA-C [address] [facility] [place] [address] 08/27/2024 10:20 AM EST Office Visit Hepatology, [facility] 132 [place] [address] Sari Holder MD [address] [place] [address] 01/13/2025 1:45 PM EDT Imaging Radiology [facility] [address] [place] [address] 01/16/2025 3:00 PM EDT Office Visit Urology, [place] [address] [place] [address] Brianna Segovia PA-C [address] [place] [address] Health Maintenance Due Date Last Done Comments DISCUSS TOBACCO CESSATION (REFER TO SMARTSET #7000) 1972 Lipid Panel 1972 Pneumococcal Vaccine: Pediatrics [...] Additional history exists CKD HGB USE SMARTSET 03137 04/03/202504/03, 01/02/2024, 12/26/2023, Additional history exists CKD PHOS USE SMARTSET 55819 04/03/2025 04/03/2024, 0 10/17/2023 O2 ASSESSMENT COMPLETED [...] filedocumented as of this encounter Care Teams Print Washer Relationship Specialty Start Date End Date Jolynn October Raul, LYNNC [address] [place], [place] [address] PCP - General Physician [place] Miner 04/10/24 documented as of this encounter
[2024-05-09] MEDS ORDERED: PANTOPRAZOLE BOLUS/DRIP IV STA (12:32)
--- NOTE | 2024-05-09 12:37 | GI REPORT ---
[facility] Patient: INDERJIT LO : 1970 Sex at : Male Age: 53 Years Procedure: Upper GI endoscopy Date: 05/09/2024 Attending Physician: Lamont Gallegos MD Referring MD: Referred Self; Akhil Sousa Md Indications: - Melena Medications: - Monitored Anesthesia Care Complications: - No immediate complications. Procedure: - ASA Grade Assessment: IV - A patient with severe systemic disease that is a constant threat to life. - The egd scope was introduced through the mouth and advanced to the second part of the duodenum. - The upper GI endoscopy was accomplished without difficulty. - The patient tolerated the procedure well. Findings: - The examined esophagus was normal. - Severe portal hypertensive gastropathy was found in the entire examined stomach. There was fresh and old blood but no active bleeding. There was a hemostatic clip in the proximal gastric antrum from a previous EGD. - The duodenal bulb had oozing varices and hemostatic spray applied. The second portion of the duodenum was normal. Impression: - Normal esophagus. - Portal hypertensive gastropathy. Duodenal varices. - Pre-existing gastric stent. - No specimens collected. - Bleeding duodenal varices hemostatic spray applied Recommendation: - TIPS evaluation Procedure Code(s): - 22353, Esophagogastroduodenoscopy, flexible, transoral; diagnostic, including collection of specimen(s) by brushing or washing, when performed (separate procedure) Diagnosis Code(s): - K76.6, Portal hypertension - K31.89, Other diseases of stomach and duodenum - Z97.8, Presence of other specified devices CPT(R) - 2023 copyright [employer]. All Rights Reserved. The CPT codes, CCI edits and ICD codes generated are intended as suggestions and were generated based on input data. These codes are preliminary and upon articulation officer review may be revised to meet current compliance and payer requirements. The provider is responsible for the final determination of appropriate codes, and modifiers. Lamont Gallegos MD This document has been electronically signed. Note Initiated:05/09/2024 Note Completed:05/09/2024 12:36 PM \\[email or web address]\Provation\Results\[email or web address]\[id number]
[2024-05-09] MEDS ORDERED: PANTOprazole 40 MG in DEXTROSE 5% MINI-B 100 ML IV SCH (12:45)
--- NOTE | 2024-05-09 12:53 | Communication Note ---
Date of Service: May 09, 2024 53 year old male w/ history of COPD, renal cyst, CKD, chronic anemia, ETOH cirrhosis MELD 25 recently admitted w/ anemia s/p EGD 04/28 w/ evidence of blee shanika GAVE treated with APC and clips admitted with anemia, black stools s/p EGD this AM w/ severe portal hypertensive gastropathy w/ fresh and old blood but no active bleeding and oozing varices at the duodenal bulb s/p application of hemostatic spray applied. [place] Text sent to primary team to update. He will need to be transferred to a tertiary center now with TIPS capability as hemostatic spray will only temporize the bleeding. Maintain NPO status. Please cancel plans for paracentesis. Continue IV PPI bolus/drip. Continue IV Octreotide bolus/drip. IV ABX for SBP prophylaxis. Trend H&H. Monitor and document GI output. Transfuse PRN per primary team. Summary of EGD - see Provation note for complete report. Normal Esophagus Severe Portal Hypertensive Gastropathy proximally Indwelling hemostatic clip from previous procedure in proximal antrum Bleeding (oozing) duodenal varices - hemostatic spray applied. Impression: Bleeding from portal hypertension Rec: Evaluation for TIPS.
--- NOTE | 2024-05-09 13:23 | Communication Note ---
Date of Service: May 09, 2024 Attempted x 3 to see pt between [id number]; he was off floor at [facility]. Will attempt again later today. On reviewing chart later in day after my clinic pt is actively being/has been transferred to [facility] for TIPS evaluation. Unable to complete consult prior to d/c. note that renal function today improved somewhat but will need continued monitoring. Consult nephro as indicated at [facility].
[2024-05-09] MEDS: LIDOCAINE 2% 2 ML VIAL/AMP(20MG/ML) INFIL ONE (13:24)
[2024-05-09] MEDS: PROPOFOL IV EMULSION 10 MG/ML 20 ML VIAL IV ONE (13:24)
--- NOTE | 2024-05-09 13:44 | Ultrasound Report ---
ULTRASOUND-GUIDED PARACENTESIS CLINICAL HISTORY: Ascites PROCEDURE: Procedure and risks were explained. Informed consent was obtained. A final timeout was com pleted. A pocket of ascites was identified in the left lower quadrant. The left lower quadrant was pr epped and draped in sterile fashion. 1% lidocaine was utilized for skin anesthesia. Utilizing ultrasound guidance, a 5 [place]an safety centesis catheter was advanced into the pocket of as cites. Ultrasound image was obtained. A total of 4000 mL of yellow ascites fluid was removed and one liter was sent to the lab for analysis. The catheter was removed and Band-Aid applied. The patient to lerated the procedure well. Vital signs will be monitored postprocedure. IMPRESSION: Ultrasound-guided paracentesis as above. Performed, dictated, and signed by Colten Rivas PA-C; to be co-signed by Dr. Frank Blevins. Electronically signed by: Frank Blevins M.D. 05/09/2024 1:53 PM
--- NOTE | 2024-05-09 13:46 | Anesthesiology Progress Note ---
Date of Service May 09, 2024 Anesthesia Post Procedure Vital Signs Vital Signs: Temp Pulse Pulse Pulse Resp BP BP 05/09/24 13:26 36.8 C 67 18 105/60 05/09/24 13:08 36.8 C 67 16 109/63 05/09/24 12:54 66 16 115/77 05/09/24 12:38 68 16 125/73 05/09/24 12:23 37 C 62 14 90/57 L 05/09/24 11:59 36.6 C 63 16 117/73 05/09/24 11:27 36.7 C 67 16 107/66 05/09/24 11:15 37.2 C 68 16 119/71 05/09/24 11:14 37.2 C 68 16 119/71 05/09/24 11:00 37.2 C 68 16 119/71 05/09/24 10:54 36.8 C 65 18 115/68 05/09/24 07:07 37.0 C 73 16 103/55 L 05/09/24 03:08 36.6 C 79 16 123/78 05/08/24 22:51 69 05/08/24 22:48 37.0 C 68 18 108/64 05/08/24 19:32 36.4 C L 71 16 126/79 05/08/24 17:46 36.5 C 68 16 130/78 05/08/24 16:46 36.4 C L 70 16 129/75 05/08/24 16:36 36.4 C L 70 18 129/75 05/08/24 16:18 36.5 C 63 20 128/85 05/08/24 16:16 36.6 C 60 20 123/82 05/08/24 16:01 36.3 C L 63 20 128/85 05/08/24 15:39 36.6 C 61 20 128/80 05/08/24 15:00 36.8 C 58 L 20 125/85 Pulse Ox O2 Del Method 05/09/24 13:26 98 Room Air 05/09/24 13:08 96 Room Air 05/09/24 12:54 97 Room Air 05/09/24 12:38 97 Room Air 05/09/24 12:23 97 Room Air 05/09/24 11:59 99 05/09/24 11:27 97 05/09/24 11:15 96 05/09/24 11:14 96 Room Air 05/09/24 11:00 96 05/09/24 10:54 96 05/09/24 07:07 97 Room Air 05/09/24 03:08 98 Room Air 05/08/24 22:51 05/08/24 22:48 96 Room Air 05/08/24 19:32 95 Room Air 05/08/24 17:46 98 05/08/24 16:46 97 05/08/24 16:36 97 Room Air 05/08/24 16:18 98 Room Air 05/08/24 16:16 98 05/08/24 16:01 05/08/24 15:39 98 05/08/24 15:00 98 Room Air Transfer of Care Handoff Completed per policy Notes Mental Status: alert / awake / arousable and participated in evaluation Nausea / Vomiting: adequately controlled Pain: adequately controlled Airway Patency, RR, SpO2: stable & adequate BP & HR: stable & adequate Hydration State: stable & adequate Anesthetic Complications: no major complications apparent and Pt Satisfied with anesthetic care
[2024-05-09 14:00] LABS: Appearance Peritoneal Fluid Slightly Hazy; Color Peritoneal Fluid Yellow; Eosinophils, Fluid 1 %; Lymphocytes, Fluid 48 %; Mono,Macrophage,Mesothelial 49 %; Neutrophils, Fluid 2 %; RBC Peritoneal Fluid Auto < 2000 /uL; WBC Peritoneal Fluid Auto 121 /ul (0-300)
[2024-05-09] MEDS: OCTREOTIDE ACETATE 500mcg / NSS 100mL IV SCH (14:03)
[2024-05-09] MEDS: PANTOprazole 80 MG in DEXTROSE 5% 100 ML IV ONE (14:04)
[2024-05-09] MEDS: OCTREOTIDE BOLUS FROM BAG IV ONE (14:07)
[2024-05-09] MEDS: PANTOprazole 40 MG in DEXTROSE 5% MINI-B 100 ML IV SCH (14:18)
[2024-05-09] MEDS: cefTRIAXone SODIUM 2,000 MG/50 ML BAG IV STA (16:21)
[2024-05-09 16:28] VITALS: BP 121/75; PULSE 66; RESP 16; TEMP 97.9; O2SAT 97
--- NOTE | 2024-05-09 16:30 | Discharge Summary ---
Date of Service May 09, 2024 Admission HPI Per Admitting Provider Patient is 53-year-old male with PMH Alcoholic cirrhosis, ascites requiring frequent paracentesis, portal gastropathy, CKD IV and others listed below presented to ER with c/o increased abdominal distension. History recurrent [facility] hospitalizations. Per inpatient chart review most recent hospitalization 04/26/2024-05/05/2024 for decompensated alcoholic cirrhosis with ascites, upper GI bleed secondary to portal gastropathy s/p 5 units PRBCs, s/p EGD on 04/28 in which was found to have active oozing from portal hypertensive gastropathy and underwent APC and Hemoclip placement. Initially was empirically treated with IV Rocephin for 5 days which was then discontinued. Also had GRACIELA and hyponatremia which had improved prior to hospital discharge. Upon discharge torsemide 40 mg twice daily was resumed per nephrology recommendations Presented to ER today as he feels "uncomfortable" with the abdominal ascites. Denies abdominal pain just "pressure of the swelling in my belly". He had outpatient appointment for paracentesis tomorrow but patient states that he wanted it done sooner so came to hospital today. States having 3 BM's daily so not using lactulose past couple of days. States chronic BLE edema. Denies melena, hematochezia, diarrhea, nausea, vomiting. Denies confusion. Denies fever/chills, diaphoresis, N/V/C, JUAREZ, dizziness, syncope, CP, SOB, palpitations, cough, rhinorrhea, rashes, dysuria, hematuria. EGD on 04/28/24 (2) GAVE (gastric antral vascular ectasia): Status post APC and clip as noted above. If he has significantly worsening bleeding, will recontact GI and may require intubation for airway protection. At this time he is stable. (3) Abdominal ascites: Patient with evidence of massive ascites and significant bilateral lower extremity edema. Given complex GI procedures today, will hold off on paracentesis today. Recommend IR consultation tomorrow for paracentesis. Will hold diuresis today given GRACIELA and recent GI bleeding. Should he develop worsening hypotension, will transfuse as appropriate and consider administration of albumin. Admission Exam Per Admitting Provider General: no acute distress, chronic ill appearing male Head: normocephalic, atraumatic Eyes: conjunctiva non-injected, anicteric ENT: normal inspection external ears, nose, mucous membranes moist Neck: supple Lungs: clear, no respiratory distress, no wheezing/rhonchi/rales CV: RRR, 1+pretibial edema Abd: +ascites, non-tender to palpation, normal BS Ext: no cyanosis, no calf tenderness Neuro: A&O x 3, no focal deficits noted, normal affect Skin: warm, dry Principal Diagnosis Bleeding from duodenal varices Hx of cirrhosis, ascites Discharge Exam General: no acute distress, chronically ill appearing male Head: normocephalic, atraumatic Eyes: eomi ENT: normal inspection external ears, nose, mucous membranes moist Neck: supple Lungs: clear, no respiratory distress, no wheezing/rhonchi/rales CV: RRR, 1+pretibial edema Abd: +ascites, non-tender to palpation, normal BS Ext: moves extremities Neuro: A&O x 3, answers appropriately, no focal deficits noted, normal affect Skin: warm, dry Discharge Data Allergies Allergy/AdvReac Type Severity Reaction Status Date / Time Penicillins Allergy Unknown pt unsure Verified 04/02/24 12:32 of reaction Consultations 05/08/24 14:25 ED Decision to Admit Stat 05/08/24 16:21 Consult Nephrology Routine 05/09/24 07:35 Consult Gastroenterology Routine 05/09/24 14:33 Burn CD for patient Stat Procedures Performed Operation Date: 05/09/24 16:45 Actual Procedures p EGD Hemostasis - Lamont Gallegos MD Ordered Studies 05/09/24 07:00 IR paracentesis abd w/img US Routine Hospital Course (1) Alcoholic cirrhosis of liver with ascites: Patient is a 53-year-old male with PMH Alcoholic cirrhosis, ascites requiring frequent paracentesis, portal gastropathy, CKD IV and others listed below presented to ER with c/o increased abdominal distension. Was scheduled to have outpatient paracentesis tomorrow however patient felt uncomfortable so came to ER today. Denies abdominal pain. Last paracentesis done on 04/29/24 with 9 L fluid taken off No abdominal pain, fever/chills. Do not suspect SBP at this time. Plan for diagnostic and therapeutic paracentesis today. ER provider had discussed with IR provider who plans to do procedure. Will plan for dose of albumin given prior to paracentesis Normal ammonia level. Continue lactulose MELD score 25 - 19.6% estimated 3-months mortality. Pt is supposed to follow up w/ outpt gallery intern. Will further discuss w/ GI while inpt Update: Pt had paracentesis and 4L of fluid removed. (2) Anemia: (3) History of upper gastrointestinal bleeding: History Upper GI bleed Secondary to portal gastropathy S/P Endoscopy on 04/28/24 and was found to have active oozing from portal hypertensive gastropathy and pt underwent APC and Hemoclip placement. Hgb: 6.9, was 7.4 on 05/05/24 Continue p.o. Protonix 40 mg twice a day Fecal occult blood positive Transfused 1 unit PRBC on admission - Hgb from 6.9 to 7.2. Plan to transfuse today. GI consulted and discussed with -> plan for repeat EGD today (05/09/24) Monitor H&H and transfuse as needed Update: Patient underwent EGD with GI - Found to have duodenal variceal bleeding And it was recommended that patient would be transferred to tertiary care center for possible TIPS procedure. Discussed with hepatology, IR and triage physician at [facility], and patient was accepted to their care. Summary of EGD - see Provation note for complete report. Normal Esophagus Severe Portal Hypertensive Gastropathy proximally Indwelling hemostatic clip from previous procedure in proximal antrum Bleeding (oozing) duodenal varices - hemostatic spray applied. Impression: Bleeding from portal hypertension Rec: Evaluation for TIPS. Patient was started on IV PPI, octreotide, and IV ceftriaxone given. (4) GRACIELA (acute kidney injury): Recent GRACIELA hospitalization. On admission Cr: 2.6, was 1.8 on 05/05/24 GRACIELA on CKD IV Hold home torsemide Decrease home gabapentin dose secondary to current renal function Monitor renal functions Nephrology consulted Pt to be transferred to [facility] as above (5) Hyponatremia: Na: 128. Was 131 on 05/05/24 Likely Hypervolemic hyponatremia Nephrology consult Total Time Total Time Spent Total Time Spent (In Minutes): 40 Discharge Plan Discharge Items Patient Disposition: Transfer Acute Care Hospital Reason For Visit: ASCITES, GRACIELA Discharge Diagnosis: Bleeding from duodenal varices Hx of cirrhosis, ascites Activity: Per Instructions section Non-emergency contact: Primary Care Provider, Hospitalist and Dedenter Call non-emergency contact if: you have any medication questions and your symptoms worsen Follow-up/Referrals: Rina Neil, SHAQ [Primary Care Provider] - Diet: Nothing by Mouth Addtl Attending Provider Instructions: Pt found to have bleeding from duodenal varices - underwent EGD today -> plan for transfer to tertiary center - [facility] for possible TIPS procedure and/or embolization - Discussed with IR and Hepatology. Pending Studies at Discharge: Yes Studies:: peritoneal fluid studies Stand-Alone Forms: My [facility] Skilled Items Patient informed of condition?: Yes DNR: No Discharge Level of Care: Other Communicable Disease: No Discharge Prognosis: Other Lines: Peripheral IV Urinary Catheter: No Medications and DC Order Prescriptions: Continued pantoprazole 40 mg tablet,delayed release (DR/EC) 40 mg PO BID 90 Days Qty: 180 3RF gabapentin 300 mg capsule 300 mg PO TID Arnuity Ellipta 100 mcg/actuation blister with device 1 inh INHALATION QAM midodrine 5 mg tablet 10 mg PO TID Qty: 180 0RF Rx Instructions: do not give last dose of day after 6PM or within 4 hrs of bedtime folic acid 1 mg tablet 5 mg PO QAM torsemide 20 mg tablet 40 mg PO AMHS lactulose 20 gram/30 mL solution 20 g PO BID PRN (Reason: Constipation) Rx Instructions: Goal of 3 bowel movements per day. Can hold further doses afterwards Discharge Orders: Discharge Order (Routine); Ordered 05/09/24 Ordered By: Akhil Sousa Admission Data Admit Date/Time: 05/08/24 14:39 Attending Provider: Akhil Sousa Admit Provider: Jean-Claude Salcedo Primary Care Provider: Rina Neil Other Providers: Grisel Fontaine; Magdiel Hernandez; Real Lang; Sangeetha Patel; Noa Gomez; Michaela Galaviz; Ruth Delaney; Fadumo Titus; Milton Galo; Reji Coleman; Iram Espinosa; Purnima Galo; Byron Chen; Krei Hernandez; Jennyfer Vo; Samra Michelle; Sari Holder; Amadeo Dennison; Alfred Godinez; Nancy Luna; Alejandro Mcnamara Jr; Chance Warren.; Kendall Cowan; Pierce Bradley; Lamont Gallegos; Ailyn Nix; Paresh Paiz I; Fela Langley; Jean-Claude Salcedo Other Interventions: Discharge Summary Assessment (RN) Last Done: 05/09/24 16:13
== END 2024-05-09 17:35 | disposition short-term general hospital (02) | DRG 441 ==
LOC: ED 11:23 → SUATTDRO 14:39 → 2S 14:39 → INTOOBSV 14:39 → 2S 16:18

== ENCOUNTER 2024-08-20 18:30 | Observation (INO) ==
--- NOTE | 2024-08-20 18:56 | Emergency Department Note ---
Impression & Plan GI bleed, GRACIELA (acute kidney injury), Anemia, Weakness, Acute hyponatremia, Acute hyperkalemia, Hyperammonemia ED Provider Note NAME: INDERJIT LO AGE: 53 SEX: M : 1970 ARRIVES VIA: Walk-In INFORMANT: [Patient] ED PROVIDER(S): [Taran Márquez MD] CHIEF COMPLAINT: Weakness HISTORY OF PRESENT ILLNESS: The patient is a 53-year-old male who presents to the ER with complaints of dizziness and weakness. He feels worse with standing. He has felt this way for a few days. He also feels shaky. There bal been no respiratory complaint. He has not had cough or cold or fever. No urinary complaints. No vomiting or diarrhea. He does have diffuse abdominal pain which is chronic because of his liver disease. He had a paracentesis yesterday, they removed 10 L and he did receive albumin after. He receives a paracentesis weekly. PMHx/PSHx/Social Hx: See Below PHYSICAL EXAM: GENERAL: Patient is in no acute distress. HEENT: No acute trauma, normocephalic atraumatic, mucous membranes moist, no nasal congestion. NECK: No stridor, no adenopathy, no meningismus, trachea is midline. LUNGS: Clear to auscultation bilaterally, no wheeze, no rhonchi, breath sounds equal. HEART: Without murmurs gallops or rubs, regular rate and rhythm. Heart tones distant. ABDOMEN: Soft, distention noted, mild diffusely tender. There is a bandage in the right lower quadrant from his recent paracentesis EXTREMITIES: No cyanosis, full range of motion of all the joints without pain or difficulty. Moderate bilateral pedal edema NEUROLOGIC: Oriented x 3, no acute motor or sensory deficits, no focal weakness. SKIN: Mild jaundice, no diaphoresis. Rectal: Brown stool, heme positive. DIFFERENTIAL DIAGNOSIS: Electrolyte imbalance, dehydration, worsening liver disease, renal failure, intracranial bleeding, UTI, among others EMERGENCY DEPARTMENT PROCEDURES: MEDICAL DECISION MAKING: There is no leukocytosis. There is a marked anemia with a hemoglobin of 3.3. The patient typically runs a hemoglobin of around 7-8. This was a drop for him. There was a normal platelet count. No coagulopathy. Sodium was low, calcium was low. Patient had an elevation to his BUN and creatinine, above his typical baseline. He had a mildly elevated potassium at 5.8. Bilirubin was mildly high, the remaining liver enzymes were unremarkable. Ammonia level was elevated at 95, consistent with his liver disease. Patient appeared to be in a euthyroid state. ECG showed a sinus rhythm, no ischemia or dysrhythmia. Cardiac enzyme testing x 1 was not consistent with acute cardiac injury. Urinalysis did not show infection or blood. Respiratory bio fire was negative. Chest x-ray did not show pneumonia or CHF. Brain CT showed no acute bleed or mass effect. CT of the abdomen pelvis showed ascites, no bowel obstruction. On exam, the patient was not toxic or febrile. He was awake and interactive. Rectal exam was positive for blood but the stool was brown in color. The patient has a history of GI bleeding and is likely suffering from a GI bleed today. This explains his dizziness. The patient was aggressively managed given his findings. He received a 500 cc saline bolus. He was given IV Protonix, IV Pepcid and IV calcium. He was ordered for 2 units of packed red blood cells to be transfused. He did sign consent for the transfusion. I did speak with our hospitalist here at [facility]. Transfer to [facility] was recommended as the patient has a past history of requiring IR intervention to address a GI bleed. I did speak with [facility] in [place], I spoke with the hvac installer on- call, the ICU attending, the on-call hospitalist. They did accept the patient as a transfer to their facility however, there was no bed going to be available until sometime tomorrow. They recommended further resuscitation here at our facility under the hospitalist service and then transfer to their facility when a bed becomes available. I spoke with the patient about his findings and about the need for eventual transfer. The paperwork for transfer was completed and signed. The patient is currently resting comfortably. He is doing well with his IV packed red blood cell transfusions. I spoke with case management, our on-call hospitalist at [facility] has seen the patient and has accepted the patient to his service pending transfer to [facility], likely sometime tomorrow. Prior/Outside records/notes reviewed: None ECG per my interpretation: Indication was weakness. The ECG shows a normal sinus rhythm with a rate of 78. There is some baseline artifact. There is no acute ST elevation, no PVCs. There is poor R wave progression. The QTc is 442. Continuous Cardiac Monitoring per my interpretation: An order was placed for continuous cardiac monitoring. The monitor shows a rate of 96 with normal sinus rhythm. Imaging/x-ray results per my interpretation: Chest x-ray does not show mediastinal widening, CHF or pneumonia. Chronic Medical/Social conditions affecting care: Advanced liver disease Care/Management discussed with: Case management, the on-call hospitalist. [facility] ICU attending-Dr. Kumari, [facility] GI attending-Dr. George, [facility] hospitalist-Dr. Abreu Level of care consideration(s): After review of the information above and other included data: --I believe the patient requires escalation of care to admission Critical Care Note: I have personally spent 47 minutes of critical care time in the direct management of this patient. This includes bedside care, interpretation of diagnostic studies, and testing, discussion with consultants, patient, and family members, and other required patient management activities. This 47 minutes is in excess of all separately billable procedures. DISPOSITION: Admission with pending transfer to [facility]. Past Med/Surg History Problem List (Updated 08/21/24 @ 01:30 by Taran Márquez MD) Hyperammonemia (Acute) Acute hyperkalemia (Acute) Acute hyponatremia (Acute) Weakness (Acute) Anemia (Acute) GRACIELA (acute kidney injury) (Acute) GI bleed (Acute) Dysphagia Chronic kidney disease, stage 4 (severe) Hypoalbuminemia (Acute) Low hemoglobin (Acute) History of upper gastrointestinal bleeding Hepatorenal syndrome Anemia (Acute) Abdominal ascites (Acute) SOB (shortness of breath) (Acute) Abdominal distension (Acute) GRACIELA (acute kidney injury) UGIB (upper gastrointestinal bleed) GAVE (gastric antral vascular ectasia) Esophagitis PAF (paroxysmal atrial fibrillation) Positive blood culture CKD (chronic kidney disease) stage 4, GFR 15-29 ml/min Severe sepsis Symptomatic anemia (Acute) Metabolic encephalopathy (Acute) Alcoholic cirrhosis of liver with ascites (Acute) Abdominal ascites (Acute) Blunt trauma of nose Blunt trauma of face Hypoxia (Acute) Pancytopenia (Acute) Influenza A (Acute) Tobacco use Hypomagnesemia (Acute) Hyponatremia (Acute) Hypokalemia (Acute) Multifocal pneumonia (Acute) Sepsis (Acute) Encounter for pre-operative examination Alcohol use (Acute) Fall (Acute) Medical History Hypervolemia Symptomatic anemia hospitalized [facility] 02/26/24 for issues related to this Poor historian main details obtained from [place] med record Alcoholic cirrhosis of liver with ascites hospitalized [facility] 02/26/24 for issues related to this Metabolic encephalopathy hospitalized [facility] 02/26/24 for issues related to this PAF (paroxysmal atrial fibrillation) pt denies; hospitalized [facility] 02/26/24, evaluated by tae garcia per cardio consult Esophagitis History of severe sepsis hospitalized 02/26/24, [facility] 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 per med record; hospitalized [facility] 02/26/24 for issues related to this Orthostatic hypotension "he thinks" COPD (chronic obstructive pulmonary disease) History of pneumonia 07/2023, 02/26/24, hospitalized [facility] 02/26/24 for issues related to this S/P abdominal paracentesis 03/21/2024, [facility] Current every day smoker Surgical History History of esophagogastroduodenoscopy (EGD) S/P cataract extraction right eye/left History of tonsillectomy History of hernia surgery infancy Family History Mother Stroke Diabetes Other Colorectal cancer Heart disease Social History Smoking Status: Never smoker Tobacco Type: Cigarettes Cigarettes Per Day: 8; Second Hand Exposure: No; Do You Dip or Chew Tobacco: No; Hx Alcohol Use: No Hx Substance Use: Yes Substance Use Type Other:: marijuana Preferred Language: Tanzanian Communication Ability: Effective Dump Motor Operator Required: No Beliefs That Will Affect Care: None Current Living Situation: Other Current Living Situation Comment: roommate Feels Safe at Home: Yes Assistive Devices: None Allergies Allergies Allergy/AdvReac Type Severity Reaction Status Date / Time Penicillins Allergy Unknown pt unsure Verified 05/20/24 14:32 of reaction Home Meds Home Medications Medication Instructions Recorded Confirmed fluticasone furoate 100 1 inh inhalation QAM 04/12/24 05/20/24 mcg/actuation blister powder for inhalation (Arnuity Ellipta) gabapentin 300 mg capsule 300 mg PO TID 04/12/24 05/20/24 folic acid 1 mg tablet 5 mg PO QAM 05/08/24 05/20/24 lactulose 20 gram/30 mL oral 20 g PO BID PRN Constipation 05/08/24 05/20/24 solution torsemide 20 mg tablet 40 mg PO AMHS 05/08/24 05/20/24 carvedilol 6.25 mg tablet 6.25 mg PO QAM 05/20/24 05/20/24 pantoprazole 40 mg tablet,delayed 0 mg PO BID 05/20/24 05/20/24 release spironolactone 100 mg tablet 0 mg PO QAM 05/20/24 05/20/24 Previous Rx's Medication Instructions Recorded midodrine 5 mg tablet 10 mg (2 x 5 mg) PO TID #180 tabs 04/15/24 Results & Data (ED) Vital Signs Vital Signs - 24 hr 08/20/24 18:33 08/20/24 19:18 08/20/24 19:18 Temperature 36.3 C L Temperature Source Temporal Artery Scan Pulse Rate - Lying Pulse Rate - Sitting Pulse Rate - Standing Pulse Rate 96 H Pulse Rate [Apical] 78 Pulse Rhythm Regular Respiratory Rate 20 18 Respiratory Effort / Characteristics Non-Labored Spontaneous Non-Labored Spontaneous Respiratory Depth Normal Respiratory Pattern Regular Blood Pressure - Lying Blood Pressure - Sitting Blood Pressure- Standing Blood Pressure 103/50 L Blood Pressure [Left Arm] 116/53 L Blood Pressure Mean 67 Blood Pressure Mean [Left Arm] 74 Blood Pressure Position Sitting Blood Pressure Position [Left Arm] Lying Pulse Oximetry 95 95 95 Oxygen Delivery Method Room Air Room Air Room Air Oxygen Flow Rate Sepsis Recent Fever Within 48 Hours No Sepsis New/Unexplained Change in Mental Status No Sepsis Action Taken by Nursing No Action Required 08/20/24 19:18 08/20/24 19:30 08/20/24 20:03 Temperature Temperature Source Pulse Rate - Lying 89 Pulse Rate - Sitting 80 Pulse Rate - Standing 82 Pulse Rate 78 80 Pulse Rate [Apical] Pulse Rhythm Respiratory Rate 18 Respiratory Effort / Characteristics Respiratory Depth Respiratory Pattern Blood Pressure - Lying 128/72 Blood Pressure - Sitting 124/71 Blood Pressure- Standing 115/58 L Blood Pressure Blood Pressure [Left Arm] Blood Pressure Mean Blood Pressure Mean [Left Arm] Blood Pressure Position Blood Pressure Position [Left Arm] Pulse Oximetry 95 Oxygen Delivery Method Room Air Oxygen Flow Rate Sepsis Recent Fever Within 48 Hours Sepsis New/Unexplained Change in Mental Status Sepsis Action Taken by Nursing 08/20/24 21:00 08/20/24 21:45 08/20/24 21:50 Temperature 36.5 C 36.4 C L Temperature Source Oral Oral Pulse Rate - Lying Pulse Rate - Sitting Pulse Rate - Standing Pulse Rate 73 73 Pulse Rate [Apical] 73 Pulse Rhythm Regular Respiratory Rate 18 24 20 Respiratory Effort / Characteristics Non-Labored Spontaneous Respiratory Depth Respiratory Pattern Blood Pressure - Lying Blood Pressure - Sitting Blood Pressure- Standing Blood Pressure 110/48 L 99/60 L Blood Pressure [Left Arm] 111/48 L Blood Pressure Mean 68 73 Blood Pressure Mean [Left Arm] 69 Blood Pressure Position Lying Lying Blood Pressure Position [Left Arm] Lying Pulse Oximetry 100 100 100 Oxygen Delivery Method Room Air Oxygen Flow Rate 0 0 Sepsis Recent Fever Within 48 Hours Sepsis New/Unexplained Change in Mental Status Sepsis Action Taken by Nursing 08/20/24 22:05 08/20/24 22:20 08/20/24 22:50 Temperature 36.4 C L 36.4 C L 36.5 C Temperature Source Oral Oral Oral Pulse Rate - Lying Pulse Rate - Sitting Pulse Rate - Standing Pulse Rate 75 78 79 Pulse Rate [Apical] Pulse Rhythm Respiratory Rate 16 20 16 Respiratory Effort / Characteristics Respiratory Depth Respiratory Pattern Blood Pressure - Lying Blood Pressure - Sitting Blood Pressure- Standing Blood Pressure 104/53 L 110/54 L 107/69 Blood Pressure [Left Arm] Blood Pressure Mean 70 72 81 Blood Pressure Mean [Left Arm] Blood Pressure Position Lying Lying Lying Blood Pressure Position [Left Arm] Pulse Oximetry 98 99 100 Oxygen Delivery Method Oxygen Flow Rate Sepsis Recent Fever Within 48 Hours Sepsis New/Unexplained Change in Mental Status Sepsis Action Taken by Nursing 08/20/24 23:13 08/20/24 23:36 08/21/24 00:21 Temperature 36.6 C Temperature Source Oral Pulse Rate - Lying Pulse Rate - Sitting Pulse Rate - Standing Pulse Rate 78 68 Pulse Rate [Apical] 79 Pulse Rhythm Respiratory Rate 16 15 Respiratory Effort / Characteristics Non-Labored Spontaneous Respiratory Depth Respiratory Pattern Blood Pressure - Lying Blood Pressure - Sitting Blood Pressure- Standing Blood Pressure 123/60 Blood Pressure [Left Arm] 107/69 Blood Pressure Mean 81 Blood Pressure Mean [Left Arm] 81 Blood Pressure Position Blood Pressure Position [Left Arm] Lying Pulse Oximetry 100 99 Oxygen Delivery Method Room Air Oxygen Flow Rate 0 Sepsis Recent Fever Within 48 Hours Sepsis New/Unexplained Change in Mental Status Sepsis Action Taken by Nursing 08/21/24 00:23 08/21/24 00:40 08/21/24 00:44 Temperature 36.6 C 36.6 C 36.6 C Temperature Source Oral Oral Oral Pulse Rate - Lying Pulse Rate - Sitting Pulse Rate - Standing Pulse Rate 69 71 76 Pulse Rate [Apical] Pulse Rhythm Regular Regular Respiratory Rate 20 14 14 Respiratory Effort / Characteristics Respiratory Depth Respiratory Pattern Blood Pressure - Lying Blood Pressure - Sitting Blood Pressure- Standing Blood Pressure 122/54 L 109/47 L 129/62 Blood Pressure [Left Arm] Blood Pressure Mean 76 67 84 Blood Pressure Mean [Left Arm] Blood Pressure Position Lying Lying Blood Pressure Position [Left Arm] Pulse Oximetry 98 99 98 Oxygen Delivery Method Oxygen Flow Rate 0 0 0 Sepsis Recent Fever Within 48 Hours Sepsis New/Unexplained Change in Mental Status Sepsis Action Taken by Jail Medications Current Medication List: was personally reviewed by me Laboratory Data Attestation: I reviewed the patient's lab results. 08/20/24 20:00 08/20/24 19:02 Lab Results 08/20/24 08/20/24 08/20/24 Range/Units 19:02 19:19 20:00 WBC Cancelled 10.44 RBC Cancelled 1.31 L Hgb Cancelled 3.3 L* Hct Cancelled 11.6 L* MCV Cancelled 88.5 MCH Cancelled 25.2 MCHC Cancelled 28.4 L RDW Std Deviation Cancelled 65.4 H RDW Coeff of Ham Cancelled 20.4 H Plt Count Cancelled 231 MPV Cancelled 9.8 Immature Gran % (Auto) Cancelled Neut % (Auto) Cancelled Lymph % (Auto) Cancelled Preble % (Auto) Cancelled Eos % (Auto) Cancelled Baso % (Auto) Cancelled Neut # (Auto) Cancelled Lymph # (Auto) Cancelled Preble # (Auto) Cancelled Eos # (Auto) Cancelled Baso # (Auto) Cancelled Immature Gran # (Auto) Cancelled Absolute Nucleated RBC Cancelled Nucleated RBC % (auto) Cancelled Neutrophils % (Manual) Cancelled 87 Band Neutrophils % Cancelled Lymphocytes % (Manual) Cancelled 6 Prolymphocyte % Cancelled Reactive Lymphs % (Man) Cancelled Monocytes % (Manual) Cancelled 6 Eosinophils % (Manual) Cancelled Basophils % (Manual) Cancelled 1 Metamyelocytes % (Man) Cancelled Myelocytes % (Man) Cancelled Promyelocytes % (Man) Cancelled Blast Cells % (Manual) Cancelled Plasma Cell % (Manual) Cancelled Other Cells % Cancelled Nucleated RBC % Cancelled Neutrophils # (Manual) Cancelled 9.08 H Band Neutrophils # Cancelled Total Absolute Neuts Cancelled 9.08 H Lymphocytes # (Manual) Cancelled 0.63 L Prolymphocyte # Cancelled Reactive Lymphs # Cancelled Total Abs Lymphocytes Cancelled 0.63 L Monocytes # (Manual) Cancelled 0.63 H Eosinophils # (Manual) Cancelled Basophils # (Manual) Cancelled 0.10 Metamyelocytes # (Man) Cancelled Myelocytes # (Manual) Cancelled Promyelocytes # (Man) Cancelled Blast Cells # (Man) Cancelled Plasma Cell # (Manual) Cancelled Other Cells # Cancelled Nucleated RBCs # (Man) Cancelled Hypersegmented Neuts Cancelled Hyposegmented Neuts Cancelled Hypogranular Neuts Cancelled Large Granular Lymphs Cancelled # Lrg Granular Lymphs Cancelled Hairy Cells Cancelled Smudge Cells Cancelled Toxic Granulation Cancelled Toxic Vacuolation Cancelled Dohle Bodies Cancelled Archie Rods Cancelled Platelet Estimate Cancelled Hypogranular Platelets Cancelled Giant Platelets Cancelled Platelet Satelliting Cancelled RBC Morphology Cancelled Polychromasia Cancelled Hypochromasia Cancelled Poikilocytosis Cancelled Basophilic Stippling Cancelled Anisocytosis Cancelled Microcytosis Cancelled Macrocytosis Cancelled Spherocytes Cancelled Pappenheimer Bodies Cancelled Sickle Cells Cancelled Target Cells Cancelled 1+ Tear Drop Cells Cancelled 1+ Ovalocytes Cancelled Stomatocytes Cancelled Claudio-Larson Bodies Cancelled Echinocytes Cancelled Acanthocytes (Spur) Cancelled Rouleaux Cancelled RBC Agglutinates Cancelled Schistocytes Cancelled Sezary Cell Cancelled PT 11.9 (9.0-12.0) Seconds INR 1.1 (0.9-1.1) APTT 25 (21-31) Seconds PTT Ratio 0.9 Sodium 126 L (136-145) mmol/L Potassium 5.8 H (3.5-5.1) mmol/L Chloride 99 (98-107) mmol/L Carbon Dioxide 18 L (21-32) mmol/L Anion Gap 9 (3-11) BUN 73 H (6-23) mg/dl Creatinine 2.87 H (0.6-1.4) mg/dl Est Cr Clr Drug Dosing Not Reportable eGFR 25.71 BUN/Creatinine Ratio 25.4 H (10-20) Glucose 154 H (70-99(Fasting)) mg/dl Calcium 7.7 L (8.6-10.3) mg/dl Magnesium 2.8 H (1.7-2.4) mg/dl Total Bilirubin 1.1 H (0.2-1.0) mg/dl AST 17 (13-39) U/L ALT 9 (7-52) U/L Alkaline Phosphatase 61 (34-104) U/L Ammonia 95.0 H (18-72) umol/L Troponin I High Sens 12.9 (0-20) pg/ml Total Protein 5.8 L (6.0-8.3) gm/dl Albumin 3.1 L (3.4-5.0) gm/dl Globulin 2.7 (2.5-4.0) gm/dl Albumin/Globulin Ratio 1.1 (0.9-2) TSH 0.762 (0.300-4.500) uIu/ml Urine Color Urine Appearance (Clear) Urine pH (4.5-7.5) Ur Specific [place] (1.000-1.030) Urine Protein (Negative) Urine Glucose (UA) (Negative) Urine Ketones (Negative) Urine Blood (Negative) Urine Nitrite (Negative) Urine Bilirubin (Negative) Urine Urobilinogen (Negative) Ur Leukocyte Esterase (Negative) Adenovirus (PCR) (NotDetected) B. pertussis DNA (PCR) (NotDetected) B.parapertussis DNA PCR (NotDetected) C. pneumoniae DNA (PCR) (NotDetected) Coronavirus OC43 (PCR) (NotDetected) Coronavirus HKU1 (PCR) (NotDetected) Coronavirus 229E (PCR) (NotDetected) SARS-CoV-2 (PCR) (NotDetected) Coronavirus NL63 (PCR) (NotDetected) Human Metapneumovir PCR (NotDetected) Influenza Type A (PCR) (NotDetected) Influenza Type B (PCR) (NotDetected) M. pneumoniae (PCR) (NotDetected) Parainfluenza 1 (PCR) (NotDetected) Parainfluenza 2 (PCR) (NotDetected) Parainfluenza 3 (PCR) (NotDetected) Parainfluenza 4 (PCR) (NotDetected) RSV (PCR) (NotDetected) Entero/Rhino (PCR) (NotDetected) Blood Parasites ID Cancelled Blood Type A Negative Antibody Screen NEGATIVE Crossmatch See Detail 08/20/24 08/20/24 Range/Units 20:13 Unknown WBC RBC Hgb Hct MCV MCH MCHC RDW Std Deviation RDW Coeff of Ham Plt Count MPV Immature Gran % (Auto) Neut % (Auto) Lymph % (Auto) Preble % (Auto) Eos % (Auto) Baso % (Auto) Neut # (Auto) Lymph # (Auto) Preble # (Auto) Eos # (Auto) Baso # (Auto) Immature Gran # (Auto) Absolute Nucleated RBC Nucleated RBC % (auto) Neutrophils % (Manual) Band Neutrophils % Lymphocytes % (Manual) Prolymphocyte % Reactive Lymphs % (Man) Monocytes % (Manual) Eosinophils % (Manual) Basophils % (Manual) Metamyelocytes % (Man) Myelocytes % (Man) Promyelocytes % (Man) Blast Cells % (Manual) Plasma Cell % (Manual) Other Cells % Nucleated RBC % Neutrophils # (Manual) Band Neutrophils # Total Absolute Neuts Lymphocytes # (Manual) Prolymphocyte # Reactive Lymphs # Total Abs Lymphocytes Monocytes # (Manual) Eosinophils # (Manual) Basophils # (Manual) Metamyelocytes # (Man) Myelocytes # (Manual) Promyelocytes # (Man) Blast Cells # (Man) Plasma Cell # (Manual) Other Cells # Nucleated RBCs # (Man) Hypersegmented Neuts Hyposegmented Neuts Hypogranular Neuts Large Granular Lymphs # Lrg Granular Lymphs Hairy Cells Smudge Cells Toxic Granulation Toxic Vacuolation Dohle Bodies Archie Rods Platelet Estimate Hypogranular Platelets Giant Platelets Platelet Satelliting RBC Morphology Polychromasia Hypochromasia Poikilocytosis Basophilic Stippling Anisocytosis Microcytosis Macrocytosis Spherocytes Pappenheimer Bodies Sickle Cells Target Cells Tear Drop Cells Ovalocytes Stomatocytes Claudio-Larson Bodies Echinocytes Acanthocytes (Spur) Rouleaux RBC Agglutinates Schistocytes Sezary Cell PT (9.0-12.0) Seconds INR (0.9-1.1) APTT (21-31) Seconds PTT Ratio Sodium (136-145) mmol/L Potassium (3.5-5.1) mmol/L Chloride (98-107) mmol/L Carbon Dioxide (21-32) mmol/L Anion Gap (3-11) BUN (6-23) mg/dl Creatinine (0.6-1.4) mg/dl Est Cr Clr Drug Dosing eGFR BUN/Creatinine Ratio (10-20) Glucose (70-99(Fasting)) mg/dl Calcium (8.6-10.3) mg/dl Magnesium (1.7-2.4) mg/dl Total Bilirubin (0.2-1.0) mg/dl AST (13-39) U/L ALT (7-52) U/L Alkaline Phosphatase (34-104) U/L Ammonia (18-72) umol/L Troponin I High Sens (0-20) pg/ml Total Protein (6.0-8.3) gm/dl Albumin (3.4-5.0) gm/dl Globulin (2.5-4.0) gm/dl Albumin/Globulin Ratio (0.9-2) TSH (0.300-4.500) uIu/ml Urine Color Yellow Urine Appearance Clear (Clear) Urine pH 5.0 (4.5-7.5) Ur Specific [place] 1.011 (1.000-1.030) Urine Protein Negative (Negative) Urine Glucose (UA) Negative (Negative) Urine Ketones Negative (Negative) Urine Blood Negative (Negative) Urine Nitrite Negative (Negative) Urine Bilirubin Negative (Negative) Urine Urobilinogen Negative (Negative) Ur Leukocyte Esterase Negative (Negative) Adenovirus (PCR) Not Detected (NotDetected) B. pertussis DNA (PCR) Not Detected (NotDetected) B.parapertussis DNA PCR Not Detected (NotDetected) C. pneumoniae DNA (PCR) Not Detected (NotDetected) Coronavirus OC43 (PCR) Not Detected (NotDetected) Coronavirus HKU1 (PCR) Not Detected (NotDetected) Coronavirus 229E (PCR) Not Detected (NotDetected) SARS-CoV-2 (PCR) Not Detected (NotDetected) Coronavirus NL63 (PCR) Not Detected (NotDetected) Human Metapneumovir PCR Not Detected (NotDetected) Influenza Type A (PCR) Not Detected (NotDetected) Influenza Type B (PCR) Not Detected (NotDetected) M. pneumoniae (PCR) Not Detected (NotDetected) Parainfluenza 1 (PCR) Not Detected (NotDetected) Parainfluenza 2 (PCR) Not Detected (NotDetected) Parainfluenza 3 (PCR) Not Detected (NotDetected) Parainfluenza 4 (PCR) Not Detected (NotDetected) RSV (PCR) Not Detected (NotDetected) Entero/Rhino (PCR) Not Detected (NotDetected) Blood Parasites ID Blood Type Antibody Screen Crossmatch Administered Medications Sodium Chloride (Nss) 100 mls @ 15 mls/hr IV .[id number] PRN PRN Reason: For Transfusion Duration Stop: 08/21/24 05:06 Last Admin: 08/20/24 21:29 Dose: 15 mls/hr Documented By: MARLEN Discontinued Medications Sodium Chloride (Nss) 500 mls @ 999 mls/hr IV .Q31M ONE Stop: 08/20/24 20:06 Last Infusion: 08/20/24 21:31 Dose: Infused Documented By: Admin: 08/20/24 20:08 Dose: 999 mls/hr Documented By: MARLEN Calcium Gluconate () 1,000 mg in 60 mls @ 240 mls/hr IV NOW STA Stop: 08/20/24 19:50 Last Infusion: 08/20/24 21:06 Dose: Infused Documented By: Admin: 08/20/24 20:08 Dose: 240 mls/hr Documented By: MARLEN Pantoprazole Sodium 80 mg/ (Dextrose) 120 mls @ 400 mls/hr IV NOW ONE Stop: 08/20/24 21:23 Last Infusion: 08/20/24 21:44 Dose: Infused Documented By: Admin: 08/20/24 21:22 Dose: 400 mls/hr Documented By: MARLEN Famotidine (Pepcid 20mg Iv Push) 20 mg in 5 mls @ 2.5 mls/min IV NOW STA Stop: 08/20/24 21:07 Last Admin: 08/20/24 21:26 Dose: 2.5 mls/min Documented By: [facility] Imaging Data Radiologist's Impression: Chest X-Ray 08/20/24 18:43 Exam(s): XR CXR 1 VIEW EXAM: XR Chest, 1 View CLINICAL HISTORY: Reason for exam: weakness. TECHNIQUE: Frontal view of the chest. COMPARISON: 04/28/2024 FINDINGS: Lungs: Mild central pulmonary vascular congestion. No consolidation. Pleural space: Unremarkable. No pneumothorax. Heart: Cardiomegaly. Mediastinum: Unremarkable. Normal mediastinal contour. Bones/joints: Unremarkable. No acute fracture. IMPRESSION: Mild central pulmonary vascular congestion Electronically signed by: Fei Reynaga MD 08/20/24 20:[address] 08/20/24 18:53 Exam(s): CT HEAD Without Contrast EXAM: CT Head Without Intravenous Contrast CLINICAL HISTORY: Reason for exam: weak dizzy. TECHNIQUE: Axial computed tomography images of the head/brain without intravenous contrast. CTDI is 36.31 mGy and DLP is 624.41 mGy-cm. Automated exposure control was utilized for the study. A dose lowering technique was utilized adhering to the principles of ALARA. COMPARISON: No relevant prior studies available. FINDINGS: Brain: Unremarkable. No hemorrhage. No significant white matter disease. No edema. Ventricles: Unremarkable. No ventriculomegaly. Bones/joints: Unremarkable. No acute fracture. Soft tissues: Unremarkable. Sinuses: Unremarkable as visualized. No acute sinusitis. Mastoid air cells: Unremarkable as visualized. No mastoid effusion. IMPRESSION: Normal head/brain CT. Electronically signed by: Fei Reynaga MD 08/20/24 23:44 PM Abdomen/Pelvis CT 08/20/24 20:40 Exam(s): CT ABDOMEN + PELVIS Without Contrast EXAM: CT Abdomen and Pelvis Without Intravenous Contrast CLINICAL HISTORY: Reason for exam: liver disease, pain. TECHNIQUE: Axial computed tomography images of the abdomen and pelvis without intravenous contrast. CTDI is 26.03 mGy and DLP is 1426.17 mGy-cm. Automated exposure control was utilized for the study. A dose lowering technique was utilized adhering to the principles of ALARA. COMPARISON: No relevant prior studies available. FINDINGS: Lung bases: Unremarkable. No mass. No consolidation. Pleural space: Small left pleural effusion. Heart: Cardiomegaly. Visualization of the interventricular septum suggesting anemia. ABDOMEN: Liver: Hepatic cirrhosis. Gallbladder and bile ducts: Postoperative changes prior cholecystectomy and prior postoperative changes coil embolization of esophageal varices. No ductal dilation. Pancreas: Unremarkable. No ductal dilation. Spleen: Unremarkable. No splenomegaly. Adrenals: Unremarkable. No mass. Kidneys and ureters: Unremarkable. No obstructing stones. No hydronephrosis. Stomach and bowel: Unremarkable. No obstruction. No mucosal thickening. PELVIS: Appendix: No findings to suggest acute appendicitis. Bladder: Unremarkable. No stones. Reproductive: Unremarkable as visualized. ABDOMEN and PELVIS: Intraperitoneal space: Large abdominal volume of abdominal and pelvic ascites. No free air. Bones/joints: No acute fracture. No dislocation. Soft tissues: Diffuse anasarca. Vasculature: See above. Lymph nodes: Unremarkable. No enlarged lymph nodes. IMPRESSION: 1. Large abdominal volume of abdominal and pelvic ascites. 2. Small left pleural effusion. 3. Visualization of the interventricular septum suggesting anemia. Correlate clinically with laboratory values. Electronically signed by: Fei Reynaga MD 08/21/24 00:36 AM Discharge Plan Visit Data Chief Complaint: Weakness Stated Complaint: DIZZY, WEAKNESS ALL OVER, ABD PAIN ED Provider: Taran Márquez Discharge Problem: GI bleed, GRACIELA (acute kidney injury), Anemia, Weakness, Acute hyponatremia, Acute hyperkalemia, Hyperammonemia Patient Disposition: Admitted As Inpatient Condition: Serious Forms Stand Alone Forms: [facility] Referrals Referrals: Rina Neil PA-C [Primary Care Provider] - Discharge Problem: GI bleed Qualifiers: GI bleed type/associated pathology: unspecified gastrointestinal hemorrhage type Qualified Code(s): K92.2 - Gastrointestinal hemorrhage, unspecified Anemia Qualifiers: Anemia type: unspecified type Qualified Code(s): D64.9 - Anemia, unspecified
[2024-08-20 19:34] LABS: Alanine Aminotransferase 9 U/L (7-52); Albumin Globulin Ratio 1.1 (0.9-2); Albumin Level 3.1 gm/dl (3.4-5.0); Alkaline Phosphatase 61 U/L (34-104); Anion Gap 9 (3-11); Aspartate Aminotransferase 17 U/L (13-39); BUN Creatinine Ratio 25.4 (10-20); Bilirubin,Total 1.1 mg/dl (0.2-1.0); Blood Urea Nitrogen 73 mg/dl (6-23); Calcium 7.7 mg/dl (8.6-10.3); Carbon Dioxide 18 mmol/L (21-32); Chloride 99 mmol/L (98-107); Globulin 2.7 gm/dl (2.5-4.0); Glucose 154 mg/dl (70-99(Fasting)); Magnesium 2.8 mg/dl (1.7-2.4); Potassium 5.8 mmol/L (3.5-5.1); Sodium 126 mmol/L (136-145); Total Protein 5.8 gm/dl (6.0-8.3)
[2024-08-20 19:42] LABS: Troponin I High Sensitivity 12.9 pg/ml (0-20)
[2024-08-20 19:51] LABS: Thyroid Stimulating Hormone 0.762 uIu/ml (0.300-4.500)
[2024-08-20 19:53] LABS: INR 1.1 (0.9-1.1); Prothrombin Time 11.9 Seconds (9.0-12.0)
[2024-08-20] MEDS: CALCIUM GLUCONATE 1,000 MG/60 ML BAG IV STA (20:08)
[2024-08-20] MEDS: SODIUM CHLORIDE 0.9% 500 ML IV ONE (20:08)
--- NOTE | 2024-08-20 20:10 | XRay Report ---
Exam(s): XR CXR 1 VIEW EXAM: XR Chest, 1 View CLINICAL HISTORY: Reason for exam: weakness. TECHNIQUE: Frontal view of the chest. COMPARISON: 04/28/2024 FINDINGS: Lungs: Mild central pulmonary vascular congestion. No consolidation. Pleural space: Unremarkable. No pneumothorax. Heart: Cardiomegaly. Mediastinum: Unremarkable. Normal mediastinal contour. Bones/joints: Unremarkable. No acute fracture. IMPRESSION: Mild central pulmonary vascular congestion Electronically signed by: Fei Reynaga MD 08/20/24 20:10 PM
[2024-08-20 20:16] LABS: Partial Thromboplastin Ratio 0.9; Partial Thromboplastin Time 25 Seconds (21-31)
[2024-08-20 20:22] LABS: Adenovirus PCR Not Detected (NotDetected); Bordetella parapertussis PCR Not Detected (NotDetected); Bordetella pertussis PCR Not Detected (NotDetected); Chlamydia pneumoniae PCR Not Detected (NotDetected); Coronavirus 229E PCR Not Detected (NotDetected); Coronavirus CoV-2 (COVID19)PCR Not Detected (NotDetected); Coronavirus HKU1 PCR Not Detected (NotDetected); Coronavirus NL63 PCR Not Detected (NotDetected); Coronavirus OC43PCR Not Detected (NotDetected); Human Metapneumovirus PCR Not Detected (NotDetected); Influenza A PCR Not Detected (NotDetected); Influenza B PCR Not Detected (NotDetected); Mycoplasma pneumoniae PCR Not Detected (NotDetected); Parainfluenza Virus 1 PCR Not Detected (NotDetected); Parainfluenza Virus 2 PCR Not Detected (NotDetected); Parainfluenza Virus 3 PCR Not Detected (NotDetected); Parainfluenza Virus 4 PCR Not Detected (NotDetected); Respiratory Syncytial VirusPCR Not Detected (NotDetected); Rhinovirus/Enterovirus PCR Not Detected (NotDetected)
[2024-08-20 20:34] LABS: Appearance Urine Clear (Clear); Bilirubin Urine Negative (Negative); Blood Urine Negative (Negative); Color Urine Yellow; Glucose Urine UA Negative (Negative); Ketones Urine Negative (Negative); Leukocyte Esterase Urine Negative (Negative); Nitrite Urine Negative (Negative); Protein Urine Negative (Negative); Specific Gravity Urine 1.011 (1.000-1.030); Urobilinogen Urine Negative (Negative)
[2024-08-20 20:39] LABS: Hematocrit (blood only) 11.6 % (42.0-52.0); Hemoglobin 3.3 g/dl (14.0-18.0); Mean Corpuscular Hemoglobin 25.2 pg (25.0-34.0); Mean Corpuscular Hgb Conc 28.4 g/dL (32.0-36.0); Mean Corpuscular Volume 88.5 fL (80.0-100.0); Mean Platelet Volume 9.8 fL (9.4-12.4); Platelet Count 231 K/uL (130-400); RDW Coefficient of Variation 20.4 % (11.5-14.5); RDW Standard Deviation 65.4 fL (36.4-46.3); Red Blood Count 1.31 M/uL (4.70-6.10); White Blood Count 10.44 K/ul (4.8-10.8)
[2024-08-20] MEDS ORDERED: SODIUM CHLORIDE 0.9% 100 ML IV PRN (20:41)
[2024-08-20] MEDS ORDERED: SODIUM CHLORIDE 0.9% 50 ML IV PRN ×2 (20:41→21:06)
[2024-08-20 20:42] LABS: ALC (manual) 0.63 K/uL (1.2-3.4); ANC (manual) 9.08 K/uL (1.4-6.5); Basophils % (manual) 1 %; Lymphocytes # (manual) 0.63 K/uL (1.2-3.4); Lymphocytes % (manual) 6 %; Monocytes # (manual) 0.63 K/uL (0.11-0.59); Monocytes % (manual) 6 %; Neutrophils # (manual) 9.08 K/uL (1.40-6.50); Neutrophils % (manual) 87 %; Target Cells 1+; Tear Drop Cells 1+
[2024-08-20] MEDS: PANTOprazole 80 MG in DEXTROSE 5% 100 ML IV ONE (21:22)
[2024-08-20] MEDS: FAMOTIDINE 20MG IV PUSH 20 MG/5 ML SYR IV STA (21:26)
[2024-08-20] MEDS: SODIUM CHLORIDE 0.9% 100 ML IV PRN (21:29)
--- NOTE | 2024-08-20 23:44 | CT Scan Report ---
Exam(s): CT HEAD Without Contrast EXAM: CT Head Without Intravenous Contrast CLINICAL HISTORY: Reason for exam: weak dizzy. TECHNIQUE: Axial computed tomography images of the head/brain without intravenous contrast. CTDI is 36.31 mGy and DLP is 624.41 mGy-cm. Automated exposure control was utilized for the study. A dose lowering technique was utilized adhering to the principles of ALARA. COMPARISON: No relevant prior studies available. FINDINGS: Brain: Unremarkable. No hemorrhage. No significant white matter disease. No edema. Ventricles: Unremarkable. No ventriculomegaly. Bones/joints: Unremarkable. No acute fracture. Soft tissues: Unremarkable. Sinuses: Unremarkable as visualized. No acute sinusitis. Mastoid air cells: Unremarkable as visualized. No mastoid effusion. IMPRESSION: Normal head/brain CT. Electronically signed by: Fei Reynaga MD 08/20/24 23:44 PM
--- OUTSIDE RECORDS SUMMARY | 2024-08-21 00:18 | External Medical Summary | Summary of Care ---
Author Name Unknown Organization [facility] Address [address] [place] [address] Phone [phone] Care Team Providers Care Industrial Relations Officer Name Role Phone Rina Jaimes PA-C Primary Care Provider [phone] Reason for Visit * Reason Onset Date Comments Hospital Follow-Up 05/12/2024 Encounter Details Date Type Department Care Team (Late st Contact Info) Description 05/12/2024 Telephone Family Practice [facility] [place] [address] [place] [address] Rina Jaimes PA-C [address] [facility] [place] [address] Hospital Follow-Up Allergies Active Allergy Reactions Criticality Noted Date Comments Penicillins Unknown 08/09/2023 documented as of this encounter (statuses as of 08/11/2024) Medications Pantoprazole Sodium 40 MG Oral Tablet Delayed Release (Protonix) Take 1 Tablet by mouth in the morning and 1 Tablet in the evening. 60 Tablet 5 04/03/2024 Active Gabapentin 300 MG Oral Capsule (Neurontin)Nanda [...] before bedtime. 360 Tablet 3 04/03/2024 Active Constulose 10 GM/15ML Oral Solution Take 30 mL by mouth in the morning and 30 mL before bedtime. For 3 BM's per day. 04/15/2024 Active Folic Acid 1 MG Oral Tablet Take 5 Tablets by mouth in the morning. 150 Tablet 5 05/07/2024 Active Spironolactone 50 MG Oral Tablet (Aldactone) Take 2 Tablets by mouth in the morning. 04/02/2024 Active documented as of this encounter (statuses as of 08/11/2024) Active Problems Problem Noted Date Diagnosed Date Secondary esophageal varices with bleeding 05/29 Thrombocytopenia, congenital and hereditary 05/02 Alcohol dependence, in remission 05/29/2024 Other cirrhosis of liver 05/27/2024 Other ascites 05/27/2024 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 GRACIELA (acute kidney injury) 05/10/2024 GAVE (gastric antral vascular ectasia) Severe protein-energy malnutrition 05/10/2024 Kidney disease, chronic, stage IV (GFR 15-29 ml/ min) 04/08/2024 Overview: Per CKD protocol Alcoholic cirrhosis 12/19/2023 Ascites due to alcoholic cirrhosis 12/19/2023 COPD, 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 documented as of this encounter (statuses as of 08/11/2024) Resolved Problems Problem Noted Date Diagnosed Date Resolved Date Upper GI bleed 05/09/2024 05/12/2024 documented as of this encounter (statuses as of 08/11/2024) Immunizations Name Administration Dates Next Due Seasonal Influenza, Trivalent, (IIV3), PF, (Fluz one) 04/03/2024 documented as of this encounter Social History Tobacco Use Types Packs/Day Years Used Date Smoking Tobacco: Every Day Cigarettes 1 34 Started: 1990 Smokeless Tobacco: Never Alcohol Use Standard Drinks/Week Comments Not Currently 0 (1 standard drink = 0.6 oz pur e alcohol) last drink 4 months ago Personal Safety Answer Date Recorded Do you feel unsafe or have concerns for your saf ety? No 05/09/2024 Do you have concerns for you r family's safety? (Household - for ages 0-17 years) Not on file 05/09/2024 Utilities Answer Date Recorded Do you have trouble paying y our heating, water, or electric bill? No 05/09/2024 Is your family able to pay t he heat, water, or electric bill? (Household - for ages 0-17 years) Not on file 05/09/2024 Does your family have access to good internet? (Household - for ages 0-17 years) Not on file 05/09/2024 Transportation Needs Answer Date Record ed Do you have trouble getting a ride to medical visits or work? (Adult - for ages 18 years and over) Not on file 05/09/2024 Does your family have a hard time getting a ride to doctors visits? (Household - for ages 0-17 years) Not on file 05/09/2024 Has lack of transportation k ept you from medical appointments, meetings, work, or from getting things needed for daily living? Check all that apply. No 05/09/2024 Do you (or your family) have trouble finding or paying for a ride (transportation)? (Household - for ages 0-17 years) Not on file 05/09/2024 Housing Stability Answer Date Recorded Do you currently live in a s helter or have no steady place to sleep at night? (Adult - for ages 18 years and over) Not on file 05/09/2024 Do you think you are at risk of becoming homeless? (Adult - for ages 18 years and over) Not on file 05/09/2024 Does your family worry about paying for your home or becoming homeless? (Household - for ages 0-17 years) Not on file 1 Are you homeless or worried that you might be in the future? No 05/09/2024 Are you (or your family) rj eless or worried that you might be in the future? (Household - for ages 0-17 years) Not on file Food Insecurity Answer Date Recorded Do you need food for this week? No 05/09/2024 Are you able to get enough f ood for your family? (Household - for ages 0-17 years) Not on file 05/09/2024 Does your family need food t his week? (Household - for ages 0-17 years) Not on file 05/09/2024 Do you always have enough fo od for your family? (Household - for ages 0-17 years) Not on file 05/09/2024 Sex and Gender Information Value Date Recorded Sex Assigned at Not on file Legal Sex Male 6:34 AM EST Gender Identity Not on file Sexual Orientation Not on file documented as of this encounter Functional Status * Are you deaf or do you have serious difficulty hearing? Answer Date of Assessment Author No 05/09/2024 7:00 PM EDT Keisha Traylor RN * Are you blind or do you have serious difficulty seeing, even when wearing glasses? Answer Date of Assessment Author No 05/09/2024 7:00 PM SOMMERT Keisha Traylor RN * Do you have serious difficulty walking or climbing stairs? (5 years old or older) Answer Date of Assessment Author No 05/09/2024 7:00 PM SOMMERT Keisha Traylor RN * Do you have difficulty dressing or bathing? (5 years old or older) Answer Date of Assessment Author No 05/09/2024 7:00 PM EDT Keisha Traylor RN * Because of a physical, mental, or emotional condition, do you have difficulty doing errands alone such as visiting a doctors office or shopping? (15 years old or older) Answer Date of Assessment Author No 05/09/2024 7:00 PM EDT Keisha Traylor RN documented as of this encounter Mental Status * Because of a physical, mental, or emotional condition, do you have serious difficulty concentrating, remembering, or making decisions? (5 years old or older) Answer Entry Date Author No 05/09/2024 7:00 PM EDT Keisha Traylor RN documented in this encounter Miscellaneous Notes * Telephone Encounter - Janet Hernandez OSA - 05/30/2024 2:28 PM EDT Saw Rina Jaimes PA-C for this. * Telephone Encounter - Coleen Kelsey OSA - 05/12/2024 2:38 PM EDT Patient Name: REE AMADOR([id number]) Sex: Male : 1970 PCP: RINA JAIMES Center: [facility] Types of orders made on 05/12/2024: Diet, IP Post Discharge , Lab, Medications Order Date:05/12/2024 Ordering User:DIONICIO BEARDEN [[id number]] Attending Provider:Arden London MD [[id number]] Authorizing Provider: Dionicio Bearden MD [[id number]] Department:[facility] 5 IP [facility][[id number]] Order Specific Information Order: RETURN APPT [CUSTOM: [id number]] Order #: [id number]: [id number] Priority: Routine Class: Nursing Unit Department (Single Entry) -> Family Practice Appt Needed Within: (Specify # of Days, Weeks, Months) -> 1 Wk Provider -> RINA JAIMES Relea sed on: 05/12/2024 9:21 AM Priority: Routine Class: Nursing Unit Department (Single Entry) -> Family Practice Appt Needed Within: (Specify # of Days, Weeks, Months) -> 1 Wk Provider -> RINA JAIMES Released on: 05/12/2024 9:21 AM documented in this encounter Plan of Treatment Upcoming Encounters Date Type Department Care Team (Late st Contact Info) Description 08/27/2024 10:20 AM EST Office Visit Hepatology, [facility] [address] [place] [address] Sari Holder MD [address] [place] [address] 01/13/2025 1:45 PM EDT Imaging Radiology [facility] [address] [place] [phone] Health Maintenance Due Date Last Done Comments DISCUSS TOBACCO CESSATION (REFER TO SMARTSET #[id number]) 1970 Depression Screening 1984 Albumin/Creatinine Ratio 1990 Alpha-1 Antitrypsin 1990 Nephrology Referral 1990 PTH 1990 DTap/Tdap Vaccines (1 - Tdap) 1991 Hepatitis B Vaccine (1 of 3 - 19+ 3-dose series) 1991 Pneumococcal Vaccine: 50+ Years (1 of 2 - PCV) 1991 Cologuard 2017 Colonoscopy 2017 Colorectal Cancer Screening 2017 Fecal Occult Blood Test 2017 Sigmoidoscopy 2017 Lung Cancer Screening 2022 Zoster Vaccines (1 of 2) 2022 COVID-19 Vaccine ( - season) 2024 GFR 01/13/2025 07/15/2024, 05/02, 05/12/2024, Additional history exists O2 ASSESSMENT COMPLETED IN PAST YEAR FOR COPD 05/10/2025 05/10/2024 Hgb 07/15/2025 07/15/2024, 04/30, 05/11/2024, Additional history exists Phosphate 07/15/2025 07/15/2024, 04/30, 05/11/2024, Additional history exists Diabetes Screening 07/15/2027 07/15/2024, 1 09/15/2023, 05/29/2024, Additional history exists Lipid Panel 07/15/2029 07/15/2024, 05/29/2024 Influenza Vaccine (FLU shot) Completed 04/03/2024 HPV (Gardasil) Vaccine Aged Out No lo nger eligible based on patient's age to complete this topic MENINGOCOCCAL (MENACTRA/MENVEO) Aged Out No longer eligible based on patient's age to complete this topic documented as of this encounter Medical Devices Implanted Type Area Surgical Oncologist Device Identifier Shelf Expiration Date Model / Serial / Lot Pod Packing Coil Jsoft 45cm - [id number] Implanted:Qty: 1 on 05/10/2024 at [employer] [facility] [employer] [id number] 09/30/2031 RBY [id number] / / [id number] Azur Detachable 018 7mmx 24cm - [id number] Implanted:Qty: 1 on 05/10/2024 at [facility] [id number] 08/30/2028 [id number] / / [id number] Pod Packing Coil Jsoft 45cm - [id number] Implanted:Qty: 1 on 05/10/2024 at [facility] [employer] [id number] 12/26/2031 RBY [id number] / / [id number] Coil Radha Soft 1ewu37th - [id number] Implanted:Qty: 1 on 05/10/2024 at [facility] [employer] [id number] 10/07/2031 RBY [id number] / / [id number] documented as of this encounter Advance Directives * Full Code (Latest Code Status on File) Date Activated Date Inactivated Comments 05/09/2024 7:11 PM 05/12/2024 7:39 PM This order reflects the patients wishes and were consensually agreed upon. Question Answer Comments Discussion of Advance Directives occurred with: Patient Healthcare Agents on File Name Relationship Healthcare Agent Relationshi p Communication Manuela Marjorie Sibling First Alternate Health Care Agent (per Health Care Power of Parking Enforcement Technician document) Care Teams Industrial Relations Officer Relationship Specialty Start Date End Date Jolynn Rina SHAQ Carter [address] [place] [address] PCP - General Physician Network Support Manager 04/10/24 documented as of this encounter
--- OUTSIDE RECORDS SUMMARY | 2024-08-21 00:18 | External Medical Summary | Summary of Care ---
Author Name Unknown Organization [facility] Address [address] [facility] [place] [address] Phone [phone] Care Team Providers Care Legal Director Name Role Phone Rina Neil PA-C Primary Care Provider [phone] Reason for Visit * Reason Onset Date Comments Medication Refill 07/30/2024 Encounter Details Date Type Department Care Team (Late st Contact Info) Description 07/30/2024 Telephone Family Practice [facility] [place] [address] [facility] [place] [address] Rina Neil PA-C [address] [facility] [place] [address] Medication Refill Allergies Active Allergy Reactions Criticality Noted Date Comments Penicillins Unknown 08/09/2023 documented as of this encounter (statuses as of 07/30/2024) Medications Pantoprazole Sodium 40 MG Oral Tablet Delayed Release (Protonix) Take 1 Tablet by mouth in the morning and 1 Tablet in the evening. 60 Tablet 5 4 Active Gabapentin 300 MG Oral Capsule (Neurontin)Indic ations:Chronic bilateral low back pain with bilateral sciatica,Paresth esias Take 1 Capsule by mouth in the morning and 1 Capsule at noon and 1 Capsule before bedtime. 90 Capsule 5 4 Active Fluticasone Furoate 100 MCG/ACT Inhalation Aerosol Powder Breath Activated (ARNUITY ellipta) Inhale 1 Puff by mouth in the morning. 30 Each 5 4 Active Torsemide 20 MG Oral Tablet (Demadex) Take 2 Tablets by mouth in the morning and 2 Tablets before bedtime. 360 Tablet 3 4 Active Constulose 10 GM/15ML Oral Solution Take 30 mL by mouth in the morning and 30 mL before bedtime. For 3 BM's per day. 4 Active Folic Acid 1 MG Oral Tablet Take 5 Tablets by mouth in the morning. 150 Tablet 5 4 Active Spironolactone 50 MG Oral Tablet (Aldactone) Take 2 Tablets by mouth in the morning. 4 Active hydrOXYzine HCl 10 MG Oral Tablet (Atarax) Take 1 Tablet by mouth every 6 hours as needed for Itching. 40 Tablet 2 4 Active traZODone HCl 50 MG Oral Tablet (Desyrel) Take 1 Tablet by mouth at bedtime. 30 Tablet 5 4 Active Cholestyramine 4 GM Oral Packet (Questran) Take 1 Packet by mouth in the morning and 1 Packet at noon and 1 Packet in the evening. Take with meals. 270 Packet 3 4 10/14/19 25 Active Nicotine 21 MG/24HR Transdermal Patch 24 Hour (Nicoderm CQ) One 21 mg patch daily for 6 wks; then one 14 mg patch daily for 2 wks; then one 7 mg patch daily for 2 wks. Remove old patch daily 42 Patch 1 4 08/26/19 25 Active Nicotine 14 MG/24HR Transdermal Patch 24 Hour (Nicoderm CQ) One 14 mg patch daily for 2 wks; then one 7 mg patch daily for 2 wks. Remove old patch daily Do not start before August 26, 2024. 14 Patch 2 5 09/09/19 25 Active Nicotine 7 MG/24HR Transdermal Patch 24 Hour (Nicoderm CQ) One 7 mg patch daily for 2 weeks; Remove old patch daily; and then stop. 14 Patch 1 4 Active Midodrine HCl 5 MG Oral Tablet (Proamatine) Take 1 Tablet by mouth in the morning and 1 Tablet at noon and 1 Tablet in the evening. 90 Tablet 3 4 Active Midodrine HCl 5 MG Oral Tablet (Proamatine) Take 1 Tablet by mouth in the morning and 1 Tablet at noon and 1 Tablet in the evening. 90 Tablet 3 4 07/30/20 24 Discontinu ed(Refill) documented as of this encounter (statuses as of 07/30/2024) Active Problems Problem Noted Date Diagnosed Date [...] as of this encounter (statuses as of 07/30/2024) Resolved Problems Problem Noted Date Diagnosed Date Resolved Date Upper GI bleed 05/09/2024 05/12/2024 documented as of this encounter (statuses as of 07/30/2024) Immunizations Name Administration Dates Next Due Seasonal [...] of Assessment Author No 05/09/2024 7:00 PM Keisha Long RN * Are you blind or do you have serious difficulty seeing, even when wearing glasses? Answer Date of Assessment Author No 05/09/2024 7:00 PM Keisha Long RN * Do you have serious difficulty walking or climbing stairs? (5 years old or older) Answer Date of Assessment Author No 05/09/2024 7:00 PM Keisha Long RN * Do you have difficulty dressing or bathing? (5 years old or older) Answer Date of Assessment Author No 05/09/2024 7:00 PM Keisha Long RN * Because of a physical, mental, or emotional condition, do you have difficulty doing errands alone such as visiting a doctors office or shopping? (15 years old or older) Answer Date of Assessment Author No 05/09/2024 7:00 PM Keisha Long RN documented as of this encounter Mental Status * Because of a physical, mental, or emotional condition, do you have serious difficulty concentrating, remembering, or making decisions? (5 years old or older) Answer Entry Date Author No 05/09/2024 7:00 PM Keisha Long RN documented in this encounter Miscellaneous Notes * Telephone Encounter - Alba Mathews LPN - 07/30/2024 3:04 PM EST Patient states he's been taking 5 mg TID because no one told him to take it differently. I let him know that Rina sent a new rx to the pharmacy for him for 5 mg TID. * Telephone Encounter - Rina Neil PA-C - 07/30/2024 12:57 PM EST Have reordered the prescription 5 mg 3 times a day as he has seen transplant and GI since hospital visit. Please clarify with patient that he is only taking 1 tablet 3 times a day and not 2 tablets 3times a day thank you * Telephone Encounter - Alba Mathews LPN - 07/30/2024 11:49 AM EST I did not pend the Rx as current dose conflicts with the dose listed on his discharge papers from [facility] in March. * Telephone Encounter - Filemon Marquis protective officer - 07/30/2024 11:15 AM EST Pt calling to follow up on his pharmacy's refill requests for Midodrine HCl 5 MG Oral Tablet (Proamatine). Pt stating he has been out of this medication for "at least a week." Upon chart review, prescription was sent to pharmacy 02/14/2024 by Rina Neil for 5 mg oral tablet take one TID. Last prescription filled by pharmacy written by Adelaida Rubio MD 04/15/2024. Note in pt chart that per [facility] d/c 04/15 - medication increased to 10 mg TID. Please advise. [facility] [address] [address] [place] Thank you, Filemon Marquis Cycle Liaison I [facility] ([facility]) 07/30/2024,11:27 AM documented in this encounter Plan of Treatment Upcoming Encounters Date Type Department Care Team (Late st Contact Info) Description 08/06/2024 11:20 AM EST Office Visit Pulmonary Medicine, [facility] [address] [facility] [place] [address] Rosendo Mcknight MD [address] [place] [address] [address] 08/27/2024 10:20 AM EST Office Visit Hepatology, [facility] [address] [facility] [place] [address] Sari Holder MD [address] [place] [id number] 01/13/2025 1:45 PM EDT Imaging Radiology [facility] [address] [place] [address] Health Maintenance Due Date Last Done Comments DISCUSS TOBACCO CESSATION (REFER TO SMARTSET #0665) 1972 Depression Screening 1984 Albumin/Creatinine Ratio 1990 [...] 2022 COVID-19 Vaccine ( season) 2024 GFR 01/13/2025 07/15/2024, 05/02, 05/12/2024, [...] this encounter Medical Devices Implanted Type Area Gas Well Drilling Manager Device Identifier Shelf Expiration Date Model / Serial / Lot Pod Packing Coil Jsoft 45cm - [id number] Implanted:Qty: 1 on 05/10/2024 at [facility] [employer] [id number] 09/30/2031 RBY [id number] / / [id number] Azur Detachable 018 7mmx 24cm - [id number] Implanted:Qty: 1 on 05/10/2024 at [facility] [id number] 08/30/2028 [id number] / / [id number] Pod Packing Coil Jsoft 45cm - [id number] Implanted:Qty: 1 on 05/10/2024 at [facility] [employer] [id number] 12/26/2031 RBY [id number] / / [id number] Coil Radha Soft [id number] - [id number] Implanted:Qty: 1 on 05/10/2024 at [facility] [employer] [id number] 10/07/2031 RBY [id number] / / [id number] documented as of this encounter Advance Directives [...] Care Agent (per Health Care Power of Toilet Products Molder document) Care Teams Legal Director Relationship Specialty Start Date End Date JolynnOctober SHAQ Carter [address] [place] [address] PCP - General Physician Production Planner Scheduler 04/10/24 documented as of this encounter
--- OUTSIDE RECORDS SUMMARY | 2024-08-21 00:19 | External Medical Summary | Summary of Care ---
Author Name Unknown Organization [facility] Address [address] [place] [address] Phone [phone] Care Team Providers Care Rocket Scientist Name Role Phone Rina Neil PA-C Primary Care Provider [phone] Encounter Details Date Type Department Care Team (Late st Contact Info) Description 07/29/2024 Result Scan Unspecified Department Sari Holder MD [address] [place] [address] [place] [address] <No scans attached> Allergies Active Allergy Reactions Criticality Noted Date Comments Penicillins Unknown 08/09/2023 documented as of this encounter (statuses as of 07/30/2024) Medications Pantoprazole Sodium 40 MG Oral Tablet Delayed Release (Protonix) Take 1 Tablet by mouth in the morning and 1 Tablet in the evening. 60 Tablet 5 04/03/2024 Active Gabapentin 300 MG Oral Capsule (Neurontin)Indic [...] by mouth in the morning. 04/02/2024 Active hydrOXYzine HCl 10 MG Oral Tablet (Atarax) Take 1 Tablet by mouth every 6 hours as needed for Itching. 40 Tablet 2 05/29/2024 Active traZODone HCl 50 MG Oral Tablet (Desyrel) Take 1 Tablet by mouth at bedtime. 30 Tablet 5 06/11/2024 Active Cholestyramine 4 GM Oral Packet (Questran) Take 1 Packet by mouth in the morning and 1 Packet at noon and 1 Packet in the evening. Take with meals. 270 Packet 3 07/15/2024 10/14/19 25 Active Nicotine 21 MG/24HR Transdermal Patch 24 Hour (Nicoderm CQ) One 21 mg patch daily for 6 wks; then one 14 mg patch daily for 2 wks; then one 7 mg patch daily for 2 wks. Remove old patch daily 42 Patch 1 07/15/2024 08/26/19 25 Active Nicotine 14 MG/24HR Transdermal Patch 24 Hour (Nicoderm CQ) One 14 mg patch daily for 2 wks; then one 7 mg patch daily for 2 wks. Remove old patch daily Do not start before August 26, 2024. 14 Patch 2 08/26/2024 09/09/19 25 Active Nicotine 7 MG/24HR Transdermal Patch 24 Hour (Nicoderm CQ) One 7 mg patch daily for 2 weeks; Remove old patch daily; and then stop. 14 Patch 1 07/15/2024 Active documented as of this encounter (statuses [...] Keisha Traylor RN documented in this encounter Plan of Treatment Upcoming Encounters Date Type Department Care Team (Late st Contact Info) Description 08/06/2024 11:20 AM EST Office Visit Pulmonary Medicine, [address] [place] [address] Rosendo Mcknight MD [address] [place] [facility] [place] [address] 08/27/2024 10:20 AM EST Office Visit Hepatology, [facility] [address] [facility] [place] [address] Sari Holder MD [address] [place] [address] 01/13/2025 1:45 PM EDT Imaging Radiology [address] [place] [address] Health Maintenance Due Date Last Done Comments DISCUSS TOBACCO CESSATION (REFER TO SMARTSET #5310) 1972 Depression Screening 1984 Albumin/Creatinine Ratio 1990 [...] this encounter Medical Devices Implanted Type Area Summer Law Associate Device Identifier Shelf Expiration Date Model / Serial / Lot Pod Packing Coil Jsoft 45cm - [id number] Implanted:Qty: 1 on 05/10/2024 at [facility] [employer] [id number] 09/30/2031 RBY [id number] / / [id number] Azur Detachable 018 7mmx 24cm - [id number] Implanted:Qty: [facility] [employer] [id number] 08/30/2028 [id number] / / [id number] Pod Packing Coil Jsoft 45cm - [id number] Implanted:Qty: 1 on 05/10/2024 at [facility] [employer] [id number] 12/26/2031 RBY [id number] / / [id number] Coil Radha Soft [id number] - [id number] Implanted:Qty: 1 on 05/10/2024 at [facility] [employer] [id number] 10/07/2031 RBY [id number] / / [id number] documented as of this encounter Procedures Procedure Name Priority Date/Time Associated Diagnosis Comments RADIOLOGY SCANNED RESULT 07/29/2024 documented in this encounter Results * RADIOLOGY SCANNED RESULT (07/29/2024) 07/29/2024 us Sari Holder MD DIAGNOSTIC RADIOLOGY SERVICES Fi nal Result documented in this encounter Advance Directives * Full Code (Latest Code Status on File) Date Activated Date Inactivated Comments 05/09/2024 7:11 PM 05/12/2024 7:39 PM This order reflects the patients wishes and were consensually agreed upon. Question Answer Comments Discussion of Advance Directives occurred with: Patient Healthcare Agents on File Name Relationship Healthcare Agent Relationshi p Communication Manuela Amador Sibling First Alternate Health Care Agent (per Health Care Power of Pet Technologist document) Care Teams Rocket Scientist Relationship Specialty Start Date End Date JolynnOctober SHAQ aCrter [address] [place] [address] PCP - General Physician Talent Acquisition Specialist 04/10/24 documented as of this encounter
--- OUTSIDE RECORDS SUMMARY | 2024-08-21 00:19 | External Medical Summary | Summary of Care ---
Author Name Unknown Organization [facility] Address [address] [facility] [place] [address] Phone [phone] Care Team Providers Care Voip Technician Name Role Phone Rina Neil PA-C Primary Care Provider [phone] Reason for Visit * Reason Onset Date Comments Medication Refill 07/30/2024 Encounter Details Date Type Department Care Team (Late st Contact Info) Description 07/30/2024 Telephone Family Practice [facility] [place] [address] [facility] [place] [address] Rina Neil PA-C [address] [facility] [place] [address] Medication Refill Allergies Active Allergy Reactions Criticality [...] encounter Miscellaneous Notes * Telephone Encounter - Rina Neil PA-C [...] dose listed on his discharge papers from [facility] in March. * Telephone Encounter - Filemon Marquis, gate agent - 07/30/2024 11:15 AM EST Pt calling [...] 04/15/2024. Note in pt chart that per [facility] d/c 04/15 - medication increased to 10 mg TID. Please advise. [facility] [address] [address] [address] [address] [place] Thank you, Filemon Marquis Director Of Retail I [facility] ([facility]) 07/30/2024,11:27 AM documented in this encounter Plan of Treatment Upcoming Encounters Date Type Department Care Team (Late st Contact Info) Description 08/06/2024 11:20 AM EST Office Visit Pulmonary Medicine, [facility] [address] [facility] [place] [address] Rosendo Mcknight MD [address] [place] [address] 08/27/2024 10:20 AM EST Office Visit Hepatology, [facility] [address] [facility] [place] [address] Sari Holder MD [address] [place] [address] 01/13/2025 1:45 PM EDT Imaging Radiology [facility] [address] [facility] [place] [address] Health Maintenance Due Date Last Done Comments DISCUSS TOBACCO CESSATION (REFER TO SMARTSET #3291) 1972 Depression Screening 1984 Albumin/Creatinine Ratio 1990 [...] this encounter Medical Devices Implanted Type Area Field Machinist Device Identifier Shelf Expiration Date Model / Serial / Lot Pod Packing Coil Jsoft 45cm - [id number] Implanted:Qty: 1 on 05/10/2024 at [facility] [employer] [id number] 09/30/2031 RBY PODJ45 / / [id number] Azur Detachable 018 7mmx 24cm - [id number] Implanted:Qty: 1 on 05/10/2024 at [facility] [id number] 08/30/2028 [id number] / / [id number] Pod Packing Coil Jsoft 45cm - [id number] Implanted:Qty: 1 on 05/10/2024 at [facility] [employer] [id number] 12/26/2031 RBY PODJ45 / / [id number] Coil Radha Soft [id number] - [id number] Implanted:Qty: 1 on 05/10/2024 at [facility] [employer] [id number] 10/07/2031 RBY [id number] / / [id number] documented as of this encounter Advance Directives [...] Care Agent (per Health Care Power of Pvc Monitor document) Care Teams Voip Technician Relationship Specialty Start Date End Date JolynnOctober SHAQ Carter [address] [place] [address] PCP - General Physician Media Job Titles 04/10/24 documented as of this encounter
--- OUTSIDE RECORDS SUMMARY | 2024-08-21 00:19 | External Medical Summary | Summary of Care ---
Author Name Unknown Organization [facility] Address [address] [place] [address] Phone [phone] Care Team Providers Care Recreation Assistant Name Role Phone Rina Neil PA-C Primary Care Provider [phone] Reason for Visit * Reason Comments Outpatient Testing Encounter Details Date Type Department Care Team (Late st Contact Info) Description 07/15/2024 2:30 PM EST Laboratory Outpatient Laboratory, [place] [address] [place] [address] [place], Lab [address] [address] [place] [address] Alcoholic cirrhosis of liver with ascites (HCC); Pre-transplant evaluation for chronic liver disease Allergies Active Allergy Reactions Criticality Noted Date Comments Penicillins Unknown 08/09/2023 documented as of this encounter (statuses as of 07/15/2024) Medications Midodrine HCl 5 MG Oral Tablet (Proamatine) [...] as of this encounter (statuses as of 07/15/2024) Active Problems Problem Noted Date Diagnosed Date [...] as of this encounter (statuses as of 07/15/2024) Resolved Problems Problem Noted Date Diagnosed Date Resolved Date Upper GI bleed 05/09/2024 05/12/2024 documented as of this encounter (statuses as of 07/15/2024) Immunizations Name Administration Dates Next Due Seasonal [...] 7:00 PM EDT Keisha Traylor RN * Do you have [...] Entry Date Author No 05/09/2024 7:00 PM SOMMERT Keisha Traylor RN documented in this encounter Plan of Treatment Upcoming Encounters Date Type Department Care Team (Late st Contact Info) Description 08/27/2024 10:20 AM EST Office Visit Hepatology, [facility] [address] [facility] [place] [address] Sari Holder MD [address] [place] [address] 01/13/2025 1:45 PM EDT Imaging Radiology [address] [place] [address] Pending Results Name Type Priority Associated Diagnoses Date /Time COMPREHENSIVE METABOLIC PANEL Lab Routine Alcoholic cirrhosis of liver with ascites (HCC) Pre-transplant evaluation for chronic liver disease 07/15/2024 2:53 PM EST T4, FREE Lab Routine Alcoholic cirrhosis of liver with ascites (HCC) Pre-transplant evaluation for chronic liver disease 07/15/2024 2:53 PM EST TSH Lab Routine Alcoholic cirrhosis of liver with ascites (HCC) Pre-transplant evaluation for chronic liver disease 07/15/2024 2:53 PM EST ALPHA-FETOPROTEIN TUMOR MARKER Lab Routine Alcoholic cirrhosis of liver with ascites (HCC) Pre-transplant evaluation for chronic liver disease 07/15/2024 2:53 PM EST PSA Lab Routine Alcoholic cirrhosis of liver with ascites (HCC) Pre-transplant evaluation for chronic liver disease 07/15/2024 2:53 PM EST HEPATITIS A ANTIBODIES IGG AND IGM Lab Routine Alcoholic cirrhosis of liver with ascites (HCC) Pre-transplant evaluation for chronic liver disease 07/15/2024 2:53 PM EST HEPATITIS B SURFACE ANTIBODY Lab Routine Alcoholic cirrhosis of liver with ascites (HCC) Pre-transplant evaluation for chronic liver disease 07/15/2024 2:53 PM EST HEPATITIS B SURFACE ANTIGEN Lab Routine Alcoholic cirrhosis of liver with ascites (HCC) Pre-transplant evaluation for chronic liver disease 07/15/2024 2:53 PM EST HEPATITIS B CORE ANTIBODIES IGG AND IGM Lab Routine Alcoholic cirrhosis of liver with ascites (HCC) Pre-transplant evaluation for chronic liver disease 07/15/2024 2:53 PM EST HEPATITIS C ANTIBODY SCREEN WITH PROGRESSION TO HEPATITIS C RNA QUANTITATIVE Lab Routine Alcoholic cirrhosis of liver with ascites (HCC) Pre-transplant evaluation for chronic liver disease 07/15/2024 2:53 PM EST CMV IGG ANTIBODY Lab Routine Alcoholic cirrhosis of liver with ascites (HCC) Pre-transplant evaluation for chronic liver disease 07/15/2024 2:53 PM EST EBV VIRAL CAPSID ANTIGEN IGG ANTIBODY Lab Routine Alcoholic cirrhosis of liver with ascites (HCC) Pre-transplant evaluation for chronic liver disease 07/15/2024 2:53 PM EST VARICELLA-ZOSTER VIRUS ANTIBODY, IGG Lab Routine Alcoholic cirrhosis of liver with ascites (HCC) Pre-transplant evaluation for chronic liver disease 07/15/2024 2:53 PM EST RPR Lab Routine Alcoholic cirrhosis of liver with ascites (HCC) Pre-transplant evaluation for chronic liver disease 07/15/2024 2:53 PM EST QUANTIFERON TB GOLD PLUS Lab Routine Alcoholic cirrhosis of liver with ascites (HCC) Pre-transplant evaluation for chronic liver disease 07/15/2024 2:53 PM EST CBC WITH WBC DIFFERENTIAL Lab Routine Alcoholic cirrhosis of liver with ascites (HCC) Pre-transplant evaluation for chronic liver disease 07/15/2024 2:53 PM EST PT INR Lab Routine Alcoholic cirrhosis of liver with ascites (HCC) Pre-transplant evaluation for chronic liver disease 07/15/2024 2:53 PM EST APTT Lab Routine Alcoholic cirrhosis of liver with ascites (HCC) Pre-transplant evaluation for chronic liver disease 07/15/2024 2:53 PM EST URINALYSIS, REFLEX TO MICROSCOPIC Lab Routine Alcoholic cirrhosis of liver with ascites (HCC) Pre-transplant evaluation for chronic liver disease 07/15/2024 2:53 PM EST TRANSPLANT ABO/RH CONFIRMATION Lab Routine Alcoholic cirrhosis of liver with ascites (HCC) Pre-transplant evaluation for chronic liver disease 07/15/2024 2:53 PM EST HIV ANTIGEN & ANTIBODY SCREEN W/ CONFIRMATION Lab Routine Alcoholic cirrhosis of liver with ascites (HCC) Pre-transplant evaluation for chronic liver disease 07/15/2024 2:53 PM EST PHOSPHORUS Lab Routine Alcoholic cirrhosis of liver with ascites (HCC) Pre-transplant evaluation for chronic liver disease 07/15/2024 2:53 PM EST MAGNESIUM Lab Routine Alcoholic cirrhosis of liver with ascites (HCC) Pre-transplant evaluation for chronic liver disease 07/15/2024 2:53 PM EST LIPID PANEL WITHOUT DIRECT LDL Lab Routine Alcoholic cirrhosis of liver with ascites (HCC) Pre-transplant evaluation for chronic liver disease 07/15/2024 2:53 PM EST HEMOGLOBIN A1C Lab Routine Alcoholic cirrhosis of liver with ascites (HCC) Pre-transplant evaluation for chronic liver disease 07/15/2024 2:53 PM EST ETHANOL, MEDICAL Lab Routine Alcoholic cirrhosis of liver with ascites (HCC) Pre-transplant evaluation for chronic liver disease 07/15/2024 2:53 PM EST TOXICOLOGY, URINESCREEN W/ CONFIRMATION Lab Routine Alcoholic cirrhosis of liver with ascites (HCC) Pre-transplant evaluation for chronic liver disease 07/15/2024 2:53 PM EST PHOSPHATIDYLETHANOL, BLOOD Lab Routine Alcoholic cirrhosis of liver with ascites (HCC) Pre-transplant evaluation for chronic liver disease 07/15/2024 2:53 PM EST HEPATITIS C ANTIBODY Lab Routine Alcoholic cirrhosis of liver with ascites (HCC) Pre-transplant evaluation for chronic liver disease 07/15/2024 2:53 PM EST HEPATITIS C RNA ADD ON Lab Routine Alcoholic cirrhosis of liver with ascites (HCC) Pre-transplant evaluation for chronic liver disease 07/15/2024 2:53 PM EST CBC Lab Routine Alcoholic cirrhosis of liver with ascites (HCC) Pre-transplant evaluation for chronic liver disease 07/15/2024 2:53 PM EST DIFFERENTIAL, AUTOMATED Lab Routine Alcoholic cirrhosis of liver with ascites (HCC) Pre-transplant evaluation for chronic liver disease 07/15/2024 2:53 PM EST EXTRA URINE ALIQUOT Lab Routine Alcoholic cirrhosis of liver with ascites (HCC) Pre-transplant evaluation for chronic liver disease 07/15/2024 2:53 PM EST Health Maintenance Due Date Last Done Comments DISCUSS TOBACCO CESSATION (REFER TO SMARTSET #4885) 1972 Pneumococcal Vaccine: Pediatrics (0 to 5 Years) and At-Risk Patients (6 to 64 Years) (1 of 2 - PCV) 1978 Depression Screening 1984 HIV Screening 1987 Albumin/Creatinine Ratio 1990 Alpha-1 Antitrypsin 1990 Nephrology Referral 1990 PTH 1990 DTap/Tdap Vaccines (1 - Tdap) 1991 Hepatitis B Vaccine (1 of 3 - 19+ 3-dose series) 1991 Cologuard 2017 Colonoscopy 2017 Colorectal Cancer Screening 2017 Fecal Occult Blood Test 2017 Sigmoidoscopy 2017 Lung Cancer Screening 2022 Zoster Vaccines (1 of 2) 2022 COVID-19 Vaccine (1 - season) 2024 GFR 11/27/2024 05/29/2024, 04/30, 05/11/2024, Additional history exists O2 ASSESSMENT COMPLETED IN PAST YEAR FOR COPD 05/10/2025 05/10/2024 Hgb 05/12/2025 05/12/2024, 04/30, 05/11/2024, Additional history exists Phosphate 05/12/2025 05/12/2024, 04/30, 05/10/2024, Additional history exists Diabetes Screening 05/29/2027 05/29/2024, 1 , 05/11/2024, Additional history exists Lipid Panel 05/29/2029 05/29/2024 Influenza Vaccine (FLU shot) Completed 04/03/2024 HPV (Gardasil) Vaccine Aged Out No lo nger eligible based on patient's age to complete this topic MENINGOCOCCAL (MENACTRA/MENVEO) Aged Out No longer eligible based on patient's age to complete this topic documented as of this encounter Medical Devices Implanted Type Area Coding Quality Coordinator Device Identifier Shelf Expiration Date Model / Serial / Lot Pod Packing Coil Jsoft 45cm - [id number] Implanted:Qty: 1 on 05/10/2024 at [facility] [employer] [id number] 09/30/2031 RBY [id number] / / [id number] Azur Detachable 018 7mmx 24cm - [id number] Implanted:Qty: 1 on 05/10/2024 at [facility] [employer] [id number] 08/30/2028 [id number] / / [id number] Pod Packing Coil Jsoft 45cm - [id number] Implanted:Qty: 1 on 05/10/2024 at [facility] [employer] [id number] 12/26/2031 RBY [id number] / / [id number] Coil Radha Soft [id number] - [id number] Implanted:Qty: 1 on 05/10/2024 at [facility] [employer] [id number] 10/07/2031 RBY [id number] / / [id number] documented as of this encounter Visit Diagnoses Diagnosis Alcoholic cirrhosis of liver with ascites (HCC) Alcoholic cirrhosis of liver Pre-transplant evaluation for chronic liver disease Other specified pre-operative examination documented in this encounter Advance Directives * [...] Care Agent (per Health Care Power of Field Training Agent document) Care Teams Recreation Assistant Relationship Specialty Start Date End Date JolynnOctober SHAQ Carter [address] [facility] [place] [address] PCP - General Physician Lead Assistant Manager 04/10/24 documented as of this encounter
--- OUTSIDE RECORDS SUMMARY | 2024-08-21 00:19 | External Medical Summary | Summary of Care ---
Author Name Unknown Organization [facility] Address [address] [place] [address] Phone [phone] Care Team Providers Care Senior Ux Developer Name Role Phone Rina Neil PA-C Primary Care Provider [phone] Reason for Referral * Evaluate & Treat - Unlimited Visits (Within 10 days (routine)) - Pending Review Specialty Diagnoses / Procedures Referred By Rick ruby Referred To Contact Pulmonary Diseases / Pulmonary Diagnoses Pre-transplant evaluation for chronic liver disease Alcoholic cirrhosis of liver with ascites (HCC) Lawrence Mccauley MD [address] [place] [address] Phone: tel: fax: Referral ID Status Reason Start Date Expiration Date Visits Requested Visits Authorized [id number] Pending Review Specialty Services Required [phone] Question Answer Referral Priority Within 10 days (routine) Where should this appointment be scheduled? [facility] Primary Reason for Referral? Other Comments 53 year old male with significant smoking history who is being considered for liver transplant listing. Please provide risk stratification for transplant listing. * Evaluate & Treat - Unlimited Visits (Within 10 days (routine)) - Pending Review Specialty Diagnoses / Procedures Referred By Contact Referred To Contact Cardiovascular Medicine / Cardiology Diagnoses Pre-transplant evaluation for chronic liver disease Alcoholic cirrhosis of liver with ascites (HCC) Lawrence Mccauley MD [address] [place] [address] Phone: tel: fax: Referral ID Status Reason Start Date Expiration Date Visits Requested Visits Authorized [id number] Pending Review Specialty Services Required [phone] Question Answer Referral Priority Within 10 days (routine) Where should this appointment be scheduled? [facility] To which of the following clinics are you referring your patient? 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 An Echo with bubble study has been requested. Please provide risk stratification for liver transplant listing. Please also provide recommendations for ischemic heart testing (heart cath?) * Precert (Diagnostic Medical) (Within 10 days (routine)) - Pending Review Specialty Diagnoses / Procedures Referred By Contac t Referred To Contact Cardiac Studies Diagnoses Pre-transplant evaluation for chronic liver disease Alcoholic cirrhosis of liver with ascites (HCC) Procedures ECHO, COMPLETE (2D), TRANS-THORACIC Transplant Clinic, [place] [id number] Phone: tel: fax: Referral ID Status Reason Start Date Expiration Date Visits Requested Visits Authorized [id number] Pending Review Precert 07/30/[phone] Reason for Visit * Reason Onset Date Comments Pre-Transplant Evaluation 07/23/2024 Encounter Details Date Type Department Care Team (Late st Contact Info) Description 07/23/2024 Telephone Transplant Clinic, [place] [address] Nicolle Liu RN Pre-Transplant Evaluation Allergies Active Allergy Reactions Criticality Noted Date Comments Penicillins Unknown 08/09/2023 documented as of this encounter (statuses as of 07/23/2024) Medications Midodrine HCl 5 MG Oral Tablet [...] as of this encounter (statuses as of 07/23/2024) Active Problems Problem Noted Date Diagnosed Date [...] as of this encounter (statuses as of 07/23/2024) Resolved Problems Problem Noted Date Diagnosed Date Resolved Date Upper GI bleed 05/09/2024 05/12/2024 documented as of this encounter (statuses as of 07/23/2024) Immunizations Name Administration Dates Next Due Seasonal [...] encounter Miscellaneous Notes * Telephone Encounter - Nicolle Liu RN - 07/23/2024 2:58 PM EST Outgoing call to Mr. Amador to review that his case was discussed last night at the liver committee meeting. It is the decision of the transplant committee to continue to move forward with his transplant evaluation in anticipation of liver transplant listing. In order to complete his evaluation he will need to complete the following testing: Echo Ischemic heart testing by either a heart cath or a CT coronary angiogram Cardiology evaluation Pulmonary clearance Colonoscopy He requests the testing be scheduled at [facility] if possible documented in this encounter Plan of Treatment Upcoming Encounters Date Type Department Care Team (Late st Contact Info) Description 08/27/2024 10:20 AM EST Office Visit Hepatology, [facility] [address] [facility] [place] [address] Sari Holder MD [address] [place] [address] 01/13/2025 1:45 PM EDT Imaging Radiology [facility] [address] [facility] [place] [address] Scheduled Orders Name Type Priority Associated Diagnoses Orde r Schedule ECHO, COMPLETE (2D), TRANS-THORACIC Echocardiology Routine Pre-transplant evaluation for chronic liver disease Alcoholic cirrhosis of liver with ascites (HCC) Expected: 07/30/2024, Expires: 07/23/2025 Scheduled Referrals Name Type Priority Associated Diagnoses Orde r Schedule CARDIOLOGY REFERRAL OP Referral Within 10 days (routine) Pre-transplant evaluation for chronic liver disease Alcoholic cirrhosis of liver with ascites (HCC) Ordered: 07/23/2024 PULMONARY REFERRAL OP Referral Within 10 days (routine) Pre-transplant evaluation for chronic liver disease Alcoholic cirrhosis of liver with ascites (HCC) Ordered: 07/23/2024 Health Maintenance Due Date Last Done Comments DISCUSS TOBACCO CESSATION (REFER TO SMARTSET #3298) 1972 Depression Screening 1984 Albumin/Creatinine Ratio 1990 Alpha-1 Antitrypsin 1990 Nephrology Referral 1990 PTH 1990 DTap/Tdap Vaccines (1 - Tdap) 1991 Hepatitis B Vaccine (1 of 3 - 19+ 3-dose series) 1991 Pneumococcal Vaccine: Pediatrics (0 to 5 Years) and At-Risk Patients (6 to 64 Years) (1 of 2 - PCV) 1991 Cologuard 2017 Colonoscopy 2017 Colorectal Cancer Screening 2017 Fecal Occult Blood Test 2017 Sigmoidoscopy 2017 Lung Cancer Screening 2022 Zoster Vaccines (1 of 2) 2022 COVID-19 Vaccine (1 - 2023- season) 2024 GFR 01/13/2025 07/15/2024, 05/02, 05/12/2024, [...] this encounter Medical Devices Implanted Type Area Executive Vp Device Identifier Shelf Expiration Date Model / Serial / Lot Pod Packing Coil Jsoft 45cm - [id number] Implanted:Qty: 1 on 05/10/2024 at [facility] [employer] [id number] 09/30/2031 RBY [id number] / / [id number] Azur Detachable 018 7mmx 24cm - [id number] Implanted:Qty: 1 on 05/10/2024 at [facility] [employer] [id number] 08/30/2028 [id number] / / [id number] Pod Packing Coil Jsoft 45cm - [id number] Implanted:Qty: 1 on 05/10/2024 at [facility] [employer] [id number] 12/26/2031 RBY [id number] / / [id number] Coil Radha Soft [id number] - [id number] Implanted:Qty: 1 on 05/10/2024 at [facility] [employer] [id number] 10/07/2031 RBY [id number] / / [id number] documented as of this encounter Visit Diagnoses Diagnosis Pre-transplant evaluation for chronic liver disease- Primary Other specified pre-operative examination Alcoholic cirrhosis of liver with ascites (HCC) Alcoholic cirrhosis of liver documented in this encounter Advance Directives * [...] Care Agent (per Health Care Power of Country Printer document) Care Teams Senior Ux Developer Relationship Specialty Start Date End Date Mary Jooctober SHAQ Carter [address] [facility] [place] [address] PCP - General Physician Guide Cruise 04/10/24 documented as of this encounter
--- OUTSIDE RECORDS SUMMARY | 2024-08-21 00:19 | External Medical Summary ---
Author Name Unknown Address Unknown Organization [id number]:[facility] [place] [address] [facility] [place] [address] Laboratory Report Ordering Provider Test Date Status MELISA MONTGOMERY 07/15/2024 14:53:29 Final Observation Date Value Abnormality Reference (Units ) Status SYNC LEUKOCYTES IN BLOOD BY AUTOMATED COUNT 07/15/2024 14:53:29 11.15 Above high normal 4.00-10.80 (K/uL) Final Segs 07/15/2024 14:53:29 63.7 40.0-75.0 (%) Final Lymphs % 07/15/2024 14:53:29 12.9 Below low normal 18.0-42.0 (%) Final Monos 07/15/2024 14:53:29 8.2 1.0-11.0 (%) Final Eosinophils 07/15/2024 14:53:29 13.8 Above high normal 0.0-6.0 (%) Final Basos 07/15/2024 14:53:29 0.9 0.0-2.0 (%) Final Immature Granulocyte, Percent 07/15/2024 14:53:29 0.5 0.0-2.0 (%) Final Absolute Segs 07/15/2024 14:53:29 7.10 1.80-7.70 (K/uL) Final Lymphs, absolute 07/15/2024 14:53:29 1.44 1.00-4.80 (K/ul) Final Monos, Abs 07/15/2024 14:53:29 0.91 0.00-1.10 (K/uL) Final Eos, Abs 07/15/2024 14:53:29 1.54 Above high normal 0.00-0.70 (K/uL) Final Basos, Abs 07/15/2024 14:53:29 0.10 0.00-0.20 (K/uL) Final Immature Granulocytes, Number 07/15/2024 14:53:29 0.06 0.00-0.20 (K/uL) Final Performing Location [facility] [place] [facility] [place] [address]
--- OUTSIDE RECORDS SUMMARY | 2024-08-21 00:19 | External Medical Summary ---
Author Name Unknown Address Unknown Organization [id number]:LAB[facility]ATORY [facility] - [address] [facility] [address] [place] [address] Laboratory Report Ordering Provider Test Date Status LUIS MONTGOMERYVIN 07/15/2024 14:53:29 Final Observation Date Value Abnormality Reference (Units ) Status Varicella Zoster IgG interpretation 07/15/2024 14:53:29 Positive Abnormal Negative Final A positive result is consist ent with having had varicella zoster virus or vaccination. Performing Location LAB[facility]ORY [facility] [place] - [address] [place] [address]
--- OUTSIDE RECORDS SUMMARY | 2024-08-21 00:19 | External Medical Summary | Summary of Care ---
Author Name Unknown Organization [facility] Address [address] [place] [address] Phone [phone] Care Team Providers Care Pest Controller Name Role Phone Rina Jaimes PA-C Primary Care Provider [phone] Reason for Visit * Reason Comments Pre-Transplant Evaluation Encounter Details Date Type Department Care Team (Late st Contact Info) Description 07/15/2024 10:00 AM EST [facility] [address], [place] [id number] Raimundo Ortega MD [address] [place] [address] Rodrick Bernal MD [address], [place] [id number] Nurse [facility] [address] [place] [address] Mariela Goetz LSW [address], [place] [id number] Pre-transplant evaluation for chronic liver disease* Allergies Active Allergy Reactions Criticality Noted Date Comments Penicillins Unknown 08/09/2023 documented as of this encounter (statuses as of 07/18/2024) Medications Midodrine HCl 5 MG Oral Tablet [...] as of this encounter (statuses as of 07/18/2024) Active Problems Problem Noted Date Diagnosed Date [...] as of this encounter (statuses as of 07/18/2024) Resolved Problems Problem Noted Date Diagnosed Date Resolved Date Upper GI bleed 05/09/2024 05/12/2024 documented as of this encounter (statuses as of 07/18/2024) Immunizations Name Administration Dates Next Due Seasonal Influenza, Trivalent, (IIV3), PF, (Fluz one) 04/03/2024 documented as of this encounter Social History Tobacco Use Types Packs/Day Years Used Date Smoking Tobacco: Every Day Cigarettes 1 34 Started: 1990 Smokeless Tobacco: Never Tobacco Cessation:Ready to Q uit: No; Counseling Given: Not Answered Alcohol Use Standard Drinks/Week Comments Not Currently [...] Sign Reading Time Taken Comments Blood Pressure 125/61 07/15/2024 11:01 AM EST Pulse 69 07/15/2024 11:01 AM EST Temperature 36.7 C (98.1 F) 07/15/2024 1 1:01 AM EST Respiratory Rate - - Oxygen Saturation - - Inhaled Oxygen Concentration - - Weight 100.3 kg (221 lb 3.2 oz) 024 11:01 AM EST Height 173 cm (5' 8.11") 07/15/2024 11: 01 AM EST Body Mass Index 33.52 07/15/2024 11:01 AM EST documented in this encounter Functional Status * Are you [...] Keisha Long RN documented in this encounter Patient Instructions * Patient Instructions* Raimundo Ortega MD - 07/15/2024 12:30 PM EST Cirrhosis guidance: A) 2 gram sodium diet, weigh at least 3 times per week early in the morning, report weight gain of 2 lb or more and the importance of consuming 25-40 Kcal/Kg per day. B) Take 1-1.5 gram per kg body weight of lean white protein daily including chicken, fish, egg whites, low-fat Czech yogurt.Avoid red meats, mainly, beef, pork, hunter, venison and livers (in any form). Take zinc supplement (zinc sulphate 220 mg once a day). Supplement protein with BCAA (branched-chain amino acids) for muscle gain and hepatic encephalopathy.Start thiamine 100 mg p.o. once daily. C) Take a bed-time snack with 20-40 gram protein and 50 gram complex carbohydrates D) Continue exercising which should include should include 3 days of aerobic activity and 2 days ofresistance training. Use the website link for guidance from [employer]: htt ps://www.exerciseismedicine.org/wp-content/uploads//FFC_Kn-jbi-Dwxkqi_Ukp prgu-Oyepj-Fygkfnf.pdf E) Avoid constipation and use lactulose with a goal of 3 bowel movements everyday. Patient needs to talk to their PCP to get the following vaccines: The patient needs vaccination for hepatitis A and B; for Hep B, heplisav will be a good choice. He will also need updated pneumonia vaccinations. The flu vaccine should be given yearly. documented in this encounter Progress Notes * Mariela Goetz LSW - 07/15/2024 1:46 PM EST Patient identified by verbal name and date of . Patient previously seen for liver transplant evaluation on 05/10/24 by MARCUS Desai, when patient was an in-patient. Patient returns to clinic today as a follow-up to that evaluation. Please refer forMARCUS Desai's notes for additional information. Reviewed patient's social history. Patient was able to elaborate a little more. He was [place] in [place] lived in several states growing up, as his father was in the [employer] for 26 years. Patient lived in [place], [place], [place] & [place]. Patient's was raised by both parents, until his mother around 2010. Patient also has 2 older sisters, Alba & Manuela. Patient's father reti red from the when they lived in [place] & then moved to [place] where patient's paternal grandparents are from. Patient's father & 2 sisters live in [place], [place] ([facility]). Patienthas a strained relationship with his father, primarily b/c he started seeing a woman that is "no good" around the time patient's mother . Patient's father is still in a relationship with this woman. Patient texts his father on holidays/special occassions & patient's father asks patient's sisters how patient is doing but does not communicate much with patient. Patient states his father would likely be a resource for patient if he needed help with his care & appointments, post transplant. Patient reports a close relationship with his sisters. He talks with his sister, Manuela, 2-3 x/ week & he talks with his sister, Alba, weekly. Patient moved back & forth between [place] & [place] & has been in [place] this time for approximately 5 years. Patient met his room-mate, Cheri, 1 year ago & they became room-mates on 12/01/23. Cheri receives Social Security Disability for bladdercancer which is in remission. Cheri also has some leg issues, however, does drive. Patient has applied for Social Security Disability 3 times & has been denied. He has the numberof an disability attorney to call for assistance with applying again. Patient relies on his sisters & his room-mate for financial assistance at this time. Patient has [facility] (Medicaid) health insurance & [employer] Rx. No concerns reported with health care costs. Patient denies mental health history, including history of anxiety &/or depression, medications, counseling & hospitalizations. Patient denies SI or HI. Patient discussed his history of alcohol use in detail. At age 17 in [place], he was drinking hard liquor, Gilmar Olivera or Killian Bains Whiskey, a fifth bottle daily. At age 24, he attended Populr parties in [place] & drank beer at [employer], around a case & a half daily. At age 28, patient moved out of state to [place] & drank mostly beer with a gilson while they played PlayStation together. Patient states they drank "mostly beer" a 6 pack of beer each, along with shots of either Killian Beam or WildTurkey whiskey, 3 or 4 times per week. At age 31, patient moved to [place] & drank "mostly beer", a case & a half daily. Around July 2023, patient "couldn't stomach beer" as it made him "feel nauseous". He switched to drinking wine daily, going through a 5 gallon box of wine every 2 days. Cheri gave patient an ultimatum that he had to quit drinking or find a new place to live. In addition, patient states he was told he had cirrhosis. Patient quit drinking on 02/18/24 when hospitalized. Patient states he hasn't drank alcohol since & expresses a commitment to his on-going sobriety. Patient denies struggling with his sobriety at this time & denies the need for treatment currently. Patient went through D&A treatment twice, which coincided with getting 2 DUI's. The first time was over 20 years ago in [place], he went to an out-patient D&A treatment program 2x/week for 4 months. Patient states that time he quit drinking for a year but then was "game on" when his buddies urged him to drink with them. The second DUI was approximately 10 years ago & he went to 28 day rehab in [place], [place] & then spent 4 months in a prison house. Once again, he remained sober for approximately 1 year before he figured he could manage his drinking if he started again & eventually got out of control. Discussed how this was good information for patient, as he seemed to do well with his sobriety for a year before he rationalized or slipped back into old patterns. Discussed the importance of reporting any struggles with his sobriety & getting help, if needed. 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 Patient states that both his room- mate, Cheri, & his sister, Manuela, are able to transport patient to appointments. Manuela works at [employer] & she has said she would help & is available at least one day per week to help with transportation. Patient's dad is also a potential resource for care & transportation; though their relationship is strained his father would help if it was needed. Cheri expressed concern regarding the cost of mileage to & from patient's appointments, especially at [facility]. Patient was given # to contact [facility] Transportation Office [phone] to enroll in their mileage reimbursement program for medical appointments, so that patientis able to then submit for mileage reimbursement for medical appointments monthly, after appointments have occurred. Patient reports that he is compliant with his medical treatment, through he recently mixed up the date of one of his PCP appointments. Patient states he always calls to cancel & reschedule when needed. Patient is aware of how important patient's medical compliance is if transplanted. Patient enjoys cooking & doing puzzles, watching TV, particularly crime shows. Patient likes to go outside& hike when the weather is nice & his health allows. Patient reports a commitment to his on-going sobriety. Will await results of PET to confirm this. Patient appears to remain a fair candidate for transplant from a psychosocial perspective at this time, provided no concerns arise with his testing. LIO Castellanos Patient needs to be presented at Selection Conference within 3 months of this psychosocial evaluation. If there is a delay, additional Social Work consult may be required. * Daly Rivas TECH - 07/15/2024 1:35 PM EST The intent behind this form is to provide accurate insurance information to designate roles of existing coverage, but also to determine patient eligibility for additional state benefits. REASON FOR APPOINTMENT: Pre -Ibarra Eval The following information has been provided by the patient: Santiago Amador [id number] 1970 [phone] [address] [place] [address] There are no phone numbers on file. Are you a [place] citizen: Yes Are you working: No How long have you been employed with your company? 0 Do you plan to change jobs or employers? no Primary Care: Rina Jaimes PA-C Are you on a Transplant list elsewhere: no Are you currently on Dialysis: No INSURANCE COVERAGE: Payor: [facility] MEDICAID Plan: [facility] Product Type: *No Product type* Prescription coverage: Yes Medicare Part D plan: no Do you know your pharmacy plan coverage? yes How much do you pay in co-pays or co-insurance? 0 Were all your insurance cards scanned in our system today? yes BIOSTATISTICS TEACHER HAS OUTLINED THE FOLLOWIN. Patient Financial Expectations 2. Billing Process 3. Insurance Information 4. Demographic Information 5. Financial Counselor Information 6. Change of Information Procedure Recommendations: none Action to be taken: none Patient verbalizes and agrees with all the above information. * Nicolle Liu RN - 07/15/2024 1:17 PM EST PRE LIVER INITIAL EVALUATION NURSING ASSESSMENT: INITIAL VISIT Organ: Liver Referring MD: PCP: RINA JAIMES [address] [place] [phone] Referring MD for Pre Liver Transplant evaluation: Dr. Holder BP 125/61 (BP Site: Right Arm, BP Position: Sitting, BP Cuff Size: Regular) | Pulse 69 | Temp 36.7 C (98.1 F) | Ht 1.73 m (5' 8.11") | Wt 100.3 kg (221 lb 3.2 oz) | BMI 33.52 kg/m | BSA 2.2 m Body mass index is 33.52 kg/m. Allergies as of 07/15/2024 - Reviewed 07/15/2024 Allergen Reaction Noted Penicillins Unknown 08/09/2023 HOSPITALIZATIONS: Has had several admissions for low hemoglobin, altered mental status, volume overload, and multi focal pneumonia. Abdominal Procedures/Biopsies & Dates: Has weekly paracentesis for 10 L of ascites removed Kidney Disease:None Heart Disease:None Liver Disease:EGD: date: 05/09/24 FAMILY HISTORY: Liver Disease: No Heart Disease:No Diabetes:Yes : Mother Renal Disease:No TB:No Cancer:No Social History Socioeconomic History Marital status: Single Spouse name: Not on file Number of children: Not on file Years of education: Not on file Highest education level: Not on file Occupational History Not on file Tobacco Use Smoking status: Every Day Current packs/day: 0.50 Average packs/day: 1 pack/day for 34.0 years (32.5 ttl pk-yrs) Types: Cigarettes Start date: 1990 Smokeless tobacco: Never Vaping Use Vaping status: Never Used Substance and Sexual Activity Alcohol use: Not Currently Comment: last drink 4 months ago Drug use: Not Currently Types: Marijuana Sexual activity: Yes Other Topics Concern Not on file Social History Narrative Not on file Social Needs Financial Resource Strain: Not on file Food Insecurity: No Food Insecurity (05/09/2024) Food Insecurity Do you need food for this week? (Adult - for ages 18 years and over): No Are you able to get enough food for your family? (Household - for ages 0-17 years): Not on file Does your family need food this week? (Household - for ages 0-17 years): Not on file Do you always have enough food for your family? (Household - for ages 0-17 years): Not on file Transportation Needs: No Transportation Needs (05/09/2024) Transportation Needs Do you have trouble getting a ride to medical visits or work? (Adult - for ages 18 years and over):Not on file Does your family have a hard time getting a ride to doctors visits? (Household - for ages 0-17 years): Not on file Has lack of transportation kept you from medical appointments, meetings, work, or from getting things needed for daily living? Check all that apply. (Adult - for ages 18 years and over): No Do you (or your family) have trouble finding or paying for a ride (transportation)? (Household - for ages 0-17 years): Not on file Social Connections: Not on file Housing Stability: Low Risk (05/09/2024) Housing Stability Do you currently live in a residential or have no steady place to sleep at night? (Adult - for ages 18 years and over): Not on file Do you think you are at risk of becoming homeless? (Adult - for ages 18 years and over): Not on file Does your family worry about paying for your home or becoming homeless? (Household - for ages 0-17 years): Not on file Are you homeless or worried that you might be in the future? (Adult - for ages 18 years and over): No Are you (or your family) homeless or worried that you might be in the future? (Household - for ages0-17 years): Not on file Immunizations: Needs to have updated Flu Vaccination Needs Hepatitis A and B vaccination Needs Pneumococcal vaccination BLOOD TRANSFUSION HISTORY: Blood Group: A GENERAL HEALTHE CARE ISSUES: History of Chicken Pox:Yes Varicella Titer: Pending Vaccination: No Men's Issues: Age/Family History, Recommendation: PSA Colon CA Screening: Risks: Age/Family History/History of Polyps, recommendation - Colonoscopy - Cancer screening COMPLIANCE: Follows medical regime: YES Follows fluid restriction: NO Takes medications as prescribed: YES Misses appointments: NO LEARNING BARRIERS :None If patient is chosen by the liver committee to finish the evaluation, the following items need to be done: Cardiology clearance Ischemic Heart Testing Colonoscopy Pulmonary Function Testing Transplant evaluation process reviewed with patient. Explained MELD score and liver allocation process Transplant procedure and risks. Discussed the risks of infection/rejection,need for life long immunosuppression and potential side effects of these medications. Advised of importance in keeping post transplant appointments,getting labwork,taking medication as prescribed and adhering to physicans orders. Advised to abstain from alcohol now and post transplant as alcohol is a direct toxin to the new liver. Advised to read Pre Liver Transplant handbook and MELD phamphlet that was given to patient and instructed to call with any questions or concerns. Listing consent form was reviewed. Pre-Liver Transplant Information: The patient was handed Pre-Transplant educational information including '[place] Authorization ofRelease of Medical Information', 'Advance Directives' information and Questions and Answers for Transplant Candidates and Families about Multiple Listing and Wait Time Transfer. The most current SRTR data for liver transplant was given to patient for review. Release date 02/06/2024. Questions answered. Verbalized understanding of information. A copy of the SRTR data was given to the patient. I provided one on one education to Santiago and his support person Cheri MELD 3.0: 22 at 07/15/2024 2:53 PM Calculated from: Serum Creatinine: 2.4 mg/dL at 07/15/2024 2:53 PM Serum Sodium: 132 mmol/L at 07/15/2024 2:53 PM Total Bilirubin: 1.1 mg/dL at 07/15/2024 2:53 PM Serum Albumin: 3.1 g/dL at 07/15/2024 2:53 PM INR(ratio): 1.2 at 07/15/2024 2:53 PM Age at listing (hypothetical): 53 years Sex: Male at 07/15/2024 2:53 PM Nicolle Liu RN * Raimundo Ortega MD - 07/15/2024 11:41 AM EST Images from the original note were not included. HEPATOLOGY LIVER TRANSPLANT EVALUATION OP Transplant Clinic, [address] [address] 07/15/2024 11:41 AM Patient name: Santiago Amador : 1970 PCP AND REFERRING PHYSICIAN: Rina Jaimes PA-C, Rina Jaimes PA-C Regular GI: Sari Holder Chief Complaint: Pre-transplant evaluation History of Current Illness: [id number] Marjorie is a 53 year old male with a history of cirrhosis due to alcohol. Alcohol: The patient had been a very heavy alcohol drinker, on average drinking half a gallon of hard liquordaily for the past 35 years. The patient states the last drink was February 18, 2024. H/o DUI twice-last was in 2012. Recently he was admitted because of GI bleeding when he underwent successful percutaneous transhepatic Gelfoam and coil embolization of the gastroduodenal varices. No h/o HE. H/o fluid overload; he is on diuretics and gets paracentesis once week. No h/o DM, CAD, stroke. His mother had a stroke. 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 He does not use a cane or walker at home. Never had a colonoscopy. He smokes half-pack/day; does not use oxygen. 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 He c/o pruritus. Review of systems: A 14-point ROS was negative except as mentioned above in HPI. Past Medical History Past Medical History: Diagnosis Date Alcoholic cirrhosis (HCC) 12/19/2023 Alcoholism (HCC) Ascites due to alcoholic cirrhosis (HCC) 12/19/2023 COPD, mild (HCC) 12/19/2023 Current smoker Family history of colon cancer paternal grandfather Past Surgical History Past Surgical History: Procedure Laterality Date IR VENOUS INTERVENTION 05/10/2024 REMOVAL OF TONSILS, UNDER AGE 14 Social History @SOCHXR@ Family history Family History Problem Relation Name Age of Onset Stroke Mother Hypertension Mother Diabetes Mother Other (stroke) Mother Heart block Father Colon cancer Grandfather (Paternal) Medications: Current Outpatient Medications Medication Sig Dispense Refill Midodrine HCl 5 MG Oral Tablet (Proamatine) [...] mouth in the morning. 30 Each 5 Torsemide 20 MG Oral Tablet (Demadex) Take 2 Tablets by mouth in the morning and 2 Tablets before bedtime. 360 Tablet 3 Constulose 10 GM/15ML Oral Solution Take 30 mL by mouth in the morning and 30 mL before bedtime. For 3 BM's per day. Folic Acid 1 MG Oral Tablet Take 5 Tablets by mouth in the morning. 150 Tablet 5 Spironolactone 50 MG Oral Tablet (Aldactone) Take 2 Tablets by mouth in the morning. hydrOXYzine HCl 10 MG Oral Tablet (Atarax) Take 1 Tablet by mouth every 6 hours as needed for Itching. 40 Tablet 2 traZODone HCl 50 MG Oral Tablet (Desyrel) Take 1 Tablet by mouth at bedtime. 30 Tablet 5 No current facility-administered medications for this visit. No herbal supplements Review of patient's allergies indicates: Allergen Reactions Penicillins Unknown PHYSICAL EXAM: BP 125/61 (BP Site: Right Arm, BP Position: Sitting, BP Cuff Size: Regular) | Pulse 69 | Temp 36.7 C (98.1 F) | Ht 1.73 m (5' 8.11") | Wt 100.3 kg (221 lb 3.2 oz) | BMI 33.52 kg/m | BSA 2.2 m Constitutional: male, in no apparent distress General: alert, awake, oriented, healthy appearing, and in no acute distress Eyes: conjunctivae and sclerae are clear and non-icteric, pupils are equally round and reactive to light, and extra-ocular movements intact HENT: nares are patent , without discharge, oropharynx is clear, without erythema or exudates, and buccal mucosa is moist Neck: supple, there is no adenopathy, and no supraclavicular adenopathy is noted Lymph: No palpable lymphadenopathy CV: heart is regular rate and rhythm, without murmur, rub, or gallop Pulm: good respiratory effort and clear to percussion and auscultation; but breath sounds diminished on the left GI: Abdomen is distended Extremities:+++ edema, joints not swollen, and no warmth Psychiatric: Mood is euthymic and Affect is appropriate for the situation Neuro: awake, alert, and oriented X 3, speech fluent, and gait normal Skin:No rashes were noted. Labs: Latest Reference Range & Units 05/29/24 13:32 Triglycerides <=174 mg/dL 86 Cholesterol <200 mg/dL 123 Non-HDL Cholesterol <=159 mg/dL 83 HDL Cholesterol >39 mg/dL 40 LDL Cholesterol <=129 mg/dL 66 SODIUM 135 - 146 mmol/L 126 (L) POTASSIUM 3.5 - 5.1 mmol/L 5.0 CHLORIDE 98 - 107 mmol/L 93 (L) CO2 22 - 32 mmol/L 22 BUN 6 - 20 mg/dL 54 (H) CREATININE 0.6 - 1.2 mg/dL 2.3 (H) EGFR >=60 mL/min 33 (L) ANION GAP 7 - 15 mmol/L 11 GLUCOSE 70 - 120 mg/dL 105 CALCIUM 8.4 - 10.2 mg/dL 8.6 Magnesium 1.5 - 2.6 mg/dL 2.1 Latest Reference Range & Units 11/09/23 10:47 04/03/24 12:51 HEPATITIS B SURFACE ANTIGEN Rpt Hepatitis B Surface Antigen Negative Negative Hepatitis C Antibody Negative Negative HEPATITIS C ANTIBODY Rpt Latest Reference Range & Units 05/29/24 13:32 SODIUM 135 - 146 mmol/L 126 (L) POTASSIUM 3.5 - 5.1 mmol/L 5.0 CHLORIDE 98 - 107 mmol/L 93 (L) CO2 22 - 32 mmol/L 22 BUN 6 - 20 mg/dL 54 (H) CREATININE 0.6 - 1.2 mg/dL 2.3 (H) EGFR >=60 mL/min 33 (L) ANION GAP 7 - 15 mmol/L 11 GLUCOSE 70 - 120 mg/dL 105 CALCIUM 8.4 - 10.2 mg/dL 8.6 Magnesium 1.5 - 2.6 mg/dL 2.1 (L): Data is abnormally low (H): Data is abnormally high Imaging Studies: Narrative & Impression EXAM EXAM: CT ABD/PELVIS W LIVER 4-PHASE W WO IV CONTRAST DATE and TIME: 05/10/2024 10:08 am HISTORY CLINICAL INFORMATION: TIPs eval TECHNIQUE Oral Contrast: Oral contrast was not administered. IV Contrast: IV Contrast used COMPARISON MRI abdomen 11/20/2023; CT abdomen and pelvis of 10/17/2023. FINDINGS LOWER CHEST: HEART(visualized): Coronary artery calcification. LUNG BASES: Small hiatal hernia containing ascites. Small left pleural effusion. Intraparenchymal lymph nodes are seen. E ABDOMEN/PELVIS: LINES AND DEVICES: None LIVER: Cirrhosis. BILE DUCTS: Unremarkable GALLBLADDER: Cholelithiasis. PANCREAS: Unremarkable SPLEEN: Mild splenomegaly. ADRENALS: Unremarkable KIDNEYS/URETERS: No hydronephrosis. Nephrograms are symmetric. There is a multi septated cystic lesion the lower pole right kidney containing curvilinear calcifications. It measures 2.7 x 3.0 x 2.2 cm. A thinly septated cyst in the interpolar region right kidney measures 1.4 cm. BLADDER: Unremarkable. BOWEL: Colonic diverticulosis. There is mild diffuse mucosal thickening of the colon. Gastrointestinal tract is normal in caliber. LYMPH NODES: Unremarkable VESSELS: Varices are seen in the hiatal hernia. In the main portal vein appears to be patent. The splenic and superior mesenteric veins are also patent. There is recanalization of the periumbilical vein. The REPRODUCTIVE ORGANS: Unremarkable PERITONEUM/RETROPERITONEUM: Moderate ascites. ABDOMINAL WALL/SOFT TISSUES: Soft tissue edema. Tiny right inguinal hernia containing a small amount of ascites (image 62 series 13). BONES: There is degenerative change in the spine. IMPRESSION IMPRESSION 1. Cirrhosis. 2. Moderate ascites, recanalization of the periumbilical vein the a, splenomegaly. 3. 3.0 cm right renal cyst containing thin, curvilinear, calcified septations. It remains unchangedfrom the previous. 4. Diffuse thickening of the colon, questionable for portal colopathy. 5. small left pleural effusion. Latest Reference Range & Units 11/14/23 13:17 FEV1/FVC Actual Pre % 68 FVC Actual Pre L 3.29 FVC Actual Pre %Predict % 70 FEV1 Actual Pre L 2.25 FEV1 Actual Pre %Predict % 60 FEF 25-75% Actual Pre L/sec 1.52 FEF 25-75% Actual Pre %Predict % 44 Assessment: Santiago Amador is a 53 year old male with decompensated cirrhosis MELD 3.0: 20 at 05/12/2024 6:51 AM Calculated from: Serum Creatinine: 1.4 mg/dL at 05/12/2024 6:51 AM Serum Sodium: 132 mmol/L at 05/12/2024 6:51 AM Total Bilirubin: 2.2 mg/dL at 05/10/2024 5:56 AM Serum Albumin: 3 g/dL at 05/10/2024 5:56 AM INR(ratio): 1.4 at 05/10/2024 5:56 AM Age at listing (hypothetical): 53 years Sex: Male at 05/12/2024 6:51 AM Plan: 1. Hepatocellular carcinoma screening is uptodate; needs an imaging study in 6 months 2. Ascites and / or peripheral edema: will continue the current doses of diuretics. 3. Esophageal varices: Recent EGD showed severe portal gastropathy, small esophageal varices. 4. Hepatic Encephalopathy: No overt evidence of HE. Will contonue Lactulose at the dosage of 20 gram 3-4 times a day, making sure there are at least 2-3 large, soft stools daily. Advised to completely abstain from alcohol. he should also attend AA meeting and seek help from family members and friends. Lack of sobriety would be a contraindication for liver transplantation. Need to avoid liver toxins including herbal supplements. The patient should avoid excess tylenol and may take Acetaminophen 2 grams a week. Avoid NSAIDs. 5. Vaccinations: The patient needs vaccination for hepatitis A and B. He will also need updated pneumonia vaccinations. The flu vaccine should be given yearly. 6. Co-Morbid Medical Conditions: (a) Cardiac: The patient is at higher risk of CAD. Will need a cardiac cath and echo Will need to be evaulated by Cardiology for pre-transplant evaluation. 7. Pulmonary: The patient will need to be evaluated for possible COPD. Cessation of smoking is strongly recommended. Plan Cholestyramine 4 GM Oral Packet (Questran) 8. Pruritus: Take cholestyramine twice daily; read instructions for time gap when taking other meds. Cirrhosis guidance: A) 2 gram sodium diet, weigh at least 3 times per week early in the morning, report weight gain of 2 lb or more and the importance of consuming 25-40 Kcal/Kg per day. B) Take 1-1.5 gram per kg body weight of lean white protein daily including chicken, fish, egg whites, low-fat Czech yogurt.Avoid red meats, mainly, beef, pork, hunter, venison and livers (in any form). Take zinc supplement (zinc sulphate 220 mg once a day) and VSL#3 probiotics. Supplement protein with BCAA (branched-chain amino acids) for muscle gain and hepatic encephalopathy.Start thiamine 100 mg p.o. once daily. C) Take a bed-time snack with 20-40 gram protein and 50 gram complex carbohydrates D) Continue exercising which should include should include 3 days of aerobic activity and 2 days ofresistance training. Use the website link for guidance from [employer]: htt ps://www.exerciseismedicine.org/wp-content/uploads//AAK_At-vod-Cnfjfe_Vfr egcr-Kcwgf-Wjryuyy.pdf E) Avoid constipation and use lactulose with a goal of 3 bowel movements everyday. Overall he will be a reasonable candidate if he gets cardiac and pulmonary clearance. Patient was explained the importance of above life-style modification changes and should follow-up with us in liver transplant clinic in 3 months with repeat labs. he should continue to follow-up with PCP to optimize other medical conditions. The above plan of care was discussed with the patient, for which understanding was demonstrated. Thank you referring your patient for the consultation and allowing us to particiapte in the care ofthis patient. Please do not hesitate and feel free to contact me if you have any questions. Raimundo Ortega MD Transplant Clinic, [address] [address] * Rodrick Bernal MD - 07/15/2024 11:14 AM EST Liver Transplant Surgery Transplant Surgery Evaluation H&P Referring cdl dedicated truck driver: Sari Holder MD PCP: Rina Jaimes PA-C HPI: Santiago Amador is a 53 year old male who was seen today 07/15/2024 as part of an evaluation for possible liver transplantation. The etiology of his end-stage liver disease is ETOH cirrhosis.He was previously evaluated by the Transplant surgery team on 05/12 as part of an inpatient evaluation after presenting with bleeding varices. Their history of liver disease history has been complicated several decompensated episodes due to, GI bleed, altered mental status, volume overload, and electrolyte abnormalities. He reports that his last drink of alcohol was February 18, 2024 when he was admitted to the hospital, which is also when he learned that he had cirrhosis. He reports that he was initially getting paracentesis every other week but now weekly. He is supposed to be on a 1.2L fluid restriction but he has struggled with that due to need to drink more water. MELD 3.0: 20 at 05/12/2024 6:51 AM MELD-Na: 20 at 05/12/2024 6:51 AM Calculated from: Serum Creatinine: 1.4 mg/dL at 05/12/2024 6:51 AM Serum Sodium: 132 mmol/L at 05/12/2024 6:51 AM Total Bilirubin: 2.2 mg/dL at 05/10/2024 5:56 AM Serum Albumin: 3 g/dL at 05/10/2024 5:56 AM INR(ratio): 1.4 at 05/10/2024 5:56 AM Age at listing (hypothetical): 53 years Sex: Male at 05/12/2024 6:51 AM Blood Type: A Cirrhosis has been complicated by: Ascites: Yes, tapped every week for for about 10L Encephalopathy: Yes, managed on lactulose and rifaximin GI Varices: Yes Variceal Bleeding: Yes, s/p variceal embolization on 05/10. Hepatocellular cancer: No SBP: no TIPS: no Fatigue: yes Muscle wasting: yes Anorexia: yes Actively drinking: no Stopped drinking: yes Recidivism: yes, previously quit for about a year 6 years ago. AA: no Inpatient rehabilitation: yes in 2013, and when he was younger. Outpatient Counseling: no Recreational drugs: Yes, occasional marijuana IVDA: no Previous transplants: no Blood transfusions: no Serious infections: no HepC: no HepC genotype: na HepC therapy: na HepB: no Hepatitis B Surface Ab positive: no Vaccinated : No If not vaccinated, reason?: Other, patient intends to get vaccinated with PCP Coronary disease: no PVD: no Malignancy: no Renal disease: yes A complete, 11-point review of systems was otherwise negative. PMHx Past Medical History: Diagnosis Date Alcoholic cirrhosis (HCC) 12/19/2023 Alcoholism (HCC) Ascites due to alcoholic cirrhosis (HCC) 12/19/2023 COPD, mild (HCC) 12/19/2023 Current smoker Family history of colon cancer paternal grandfather PSHx Past Surgical History: Procedure Laterality Date IR VENOUS INTERVENTION 05/10/2024 REMOVAL OF TONSILS, UNDER AGE 14 Meds Current Outpatient Medications Medication Sig Dispense Refill Cholestyramine 4 GM Oral Packet (Questran) Take 1 Packet by mouth in the morning and 1 Packet at noon and 1 Packet in the evening. Take with meals. 270 Packet 3 Constulose 10 GM/15ML Oral Solution Take 30 mL by mouth in the morning and 30 mL before bedtime. For 3 BM's per day. Fluticasone Furoate 100 MCG/ACT Inhalation Aerosol Powder Breath Activated (ARNUITY ellipta) Inhale1 Puff by mouth in the morning. 30 Each 5 Folic Acid 1 MG Oral Tablet Take 5 Tablets by mouth in the morning. 150 Tablet 5 Gabapentin 300 MG Oral Capsule (Neurontin) Take 1 Capsule by mouth in the morning and 1 Capsule at noon and 1 Capsule before bedtime. 90 Capsule 5 hydrOXYzine HCl 10 MG Oral Tablet (Atarax) Take 1 Tablet by mouth every 6 hours as needed for Itching. 40 Tablet 2 Midodrine HCl 5 MG Oral Tablet (Proamatine) Take 1 Tablet by mouth in the morning and 1 Tablet at noon and 1 Tablet in the evening. 90 Tablet 3 Pantoprazole Sodium 40 MG Oral Tablet Delayed Release (Protonix) Take 1 Tablet by mouth in the morning and 1 Tablet in the evening. 60 Tablet 5 Spironolactone 50 MG Oral Tablet (Aldactone) Take 2 Tablets by mouth in the morning. Torsemide 20 MG Oral Tablet (Demadex) Take 2 Tablets by mouth in the morning and 2 Tablets before bedtime. 360 Tablet 3 traZODone HCl 50 MG Oral Tablet (Desyrel) Take 1 Tablet by mouth at bedtime. 30 Tablet 5 No current facility-administered medications for this visit. Allergies Review of patient's allergies indicates: Allergen Reactions Penicillins Unknown Family History Family History Problem Relation Name Age of Onset Stroke Mother Hypertension Mother Diabetes Mother Other (stroke) Mother Heart block Father Colon cancer Grandfather (Paternal) Social Hx Social History: Social History Socioeconomic History Marital status: Single Tobacco Use Smoking status: Every Day Current packs/day: 0.50 Average packs/day: 1 pack/day for 34.0 years (32.5 ttl pk-yrs) Types: Cigarettes Start date: 1990 Smokeless tobacco: Never Vaping Use Vaping status: Never Used Substance and Sexual Activity Alcohol use: Not Currently Comment: last drink 4 months ago Drug use: Not Currently Types: Marijuana Sexual activity: Yes Social Needs Food Insecurity: No Food Insecurity (05/09/2024) Food Insecurity Do you need food for this week? (Adult - for ages 18 years and over): No Transportation Needs: No Transportation Needs (05/09/2024) Transportation Needs Has lack of transportation kept you from medical appointments, meetings, work, or from getting things needed for daily living? Check all that apply. (Adult - for ages 18 years and over): No Social Connections Housing Stability: Low Risk (05/09/2024) Housing Stability Are you homeless or worried that you might be in the future? (Adult - for ages 18 years and over): No Physical Exam Admission weight: Weight: 100.3 kg (221 lb 3.2 oz) Current weight: Weight: 100.3 kg (221 lb 3.2 oz) Body mass index is 33.52 kg/m. Gen: NAD, very emaciated HEENT: Mild scleral icterus Pulm: non-labored breathing without accessory muscle use, CTA, no rales/rhonchi CV: RRR, no m/g/r. Abdo: soft, severely distended with shifting dullness, nontender, no umbilical hernia Extrem: upper and lower extremities wwp Derm: no suspicious skin lesions Mental status: AAO x 3, forgetful Neuro: CN II-XII grossly intact Labs: Results for orders placed or performed in visit on 05/29/24 MAGNESIUM Result Value Ref Range Magnesium 2.1 1.5 - 2.6 mg/dL LIPID PANEL WITH DIRECT LDL IF TG IS HIGH Result Value Ref Range Triglycerides 86 <=174 mg/dL Cholesterol 123 <200 mg/dL HDL Cholesterol 40 >39 mg/dL Non-HDL Cholesterol 83 <=159 mg/dL LDL Cholesterol 66 <=129 mg/dL BASIC METABOLIC PANEL Result Value Ref Range BUN 54 (H) 6 - 20 mg/dL CREATININE 2.3 (H) 0.6 - 1.2 mg/dL EGFR 33 (L) >=60 mL/min SODIUM 126 (L) 135 - 146 mmol/L POTASSIUM 5.0 3.5 - 5.1 mmol/L CHLORIDE 93 (L) 98 - 107 mmol/L CO2 22 22 - 32 mmol/L ANION GAP 11 7 - 15 mmol/L GLUCOSE 105 70 - 120 mg/dL CALCIUM 8.6 8.4 - 10.2 mg/dL No results found for: "INR" INR (no units) Date Value 05/10/2024 1.4 (H) Serologies: CMV - pending EBV - pending Hepatitis B Surface Antigen (no units) Date Value 04/03/2024 Negative Hepatitis C Antibody (no units) Date Value 11/09/2023 Negative Preop Imaging IR VENOUS INTERVENTION Result Date: 05/21/2024 IMPRESSION: Successful percutaneous transhepatic Gelfoam and coil embolization of the gastroduodenal varices. Successful ultrasound-guided percutaneous intraperitoneal drainage catheter placement. PLAN: - we will remove drainage catheter in 48 hours prior to discharge - keep drain connected to bag - keep bag to gravity - do not flush drain I have personally reviewed this examination and agree with the resident/fellow physician's interpretation. IR PARACENTESIS Result Date: 05/21/2024 IMPRESSION: Successful percutaneous transhepatic Gelfoam and coil embolization of the gastroduodenal varices. Successful ultrasound-guided percutaneous intraperitoneal drainage catheter placement. PLAN: - we will remove drainage catheter in 48 hours prior to discharge - keep drain connected to bag - keep bag to gravity - do not flush drain I have personally reviewed this examination and agree with the resident/fellow physician's interpretation. CT ABD/PELVIS W LIVER 4-PHASE W WO IV CONTRAST Result Date: 05/10/2024 IMPRESSION 1. Cirrhosis. 2. Moderate ascites, recanalization of the periumbilical vein the a, splenomegaly. 3. 3.0 cm right renal cyst containing thin, curvilinear, calcified septations. It remains unchanged from the previous. 4. Diffuse thickening of the colon, questionable for portal colopathy. 5. small left pleural effusion. MRI AP: 11/20/2023 IMPRESSION 1. Liver iron concentration is provided [...] cm. Consider continued surveillance. 5. Moderate ascites. Preop biopsy: None Cardiopulmonary evaluation EKG: pending TTE: pending Stress echo: pending CTA Chest/Coronary Angiogram: pending CXR: pending PFTs: pending Assessment & Plan: Santiago Amador is a 53 year old year old male with ETOH cirrhosis complicated by ETOH related ascites, portal hypertension, esophageal varices, and hepatic encephalopathy. We are asked to see him forevaluation of surgical candidacy. Although his medical and psychosocial workup is not complete, there are no absolute contraindications to liver transplantation at this time. Needs PFTs, encouraged to quit smoking. Needs Hepatitis B Vaccination. Cardiac testing pending. CT imaging reviewed - significant aortic calcifications especially at renal take off, celiac trunk open. Has accessory right hepatic artery. I have discussed the risks, benefits, and alternatives of liver transplantation including but not limited to bleeding, infection, vascular complication including thrombosis and stenosis, biliary tract complications including leak and stenosis, recurrence of primary disease, primary nonfunction, delayed graft function, reoperation, , acute and chronic rejection, and increased risk of developing certain types of cancers (such as lymphomas and skin cancers) and infections. The possibility of developing diabetes after transplantation was also discussed with her. In addition, we discussed the different types of organ offers including donation after brain ,donation after circulatory , donors with behaviors that may allow for unknown viral disease transmission, hepatitis, B, hepatitis C, and living donors. We discussed the potential for getting these different types of offers, what these offers mean, and the associated risks of each type of offer. We discussed the two main types of donor: living donors and donors. Living donors are typically close friends or family that step forward to donate. They must undergo similar testing to ensure that they are healthy, can withstand surgery, and have an adequate amount of liver to donate suchthat the donor and recipient both have enough liver. For donors, there are two main types, donation after brain (DBD) and donation after cardiac (DCD). We explained the difference between these types of donors. For DCD offers, we discussed increased risk of delayed graft function, primary non-function, and ischemic cholangiopathy based on a DCD donor. We discussed that some donors have certain behaviors that may allow for unknown transmission of HepB, Hep C and HIV at the time of donation. These behaviors include fci time, men who have sex with men, people who have sex with people for money, drugs or who have used IV drugs, people who have sexwith a person who has injected drugs for non medical reasons, children breast fed by a mother with know HIV, children born to a mother with know HBV/HCV/HIV infection, sex with people known to have HBV/HCV/HIV, and intravenous drug abuse within the last 30 days. Unknown donor personal and medical history may allow for transmission of Hep B, Hep C and HIV at the time of donation as well. There is a small chance that the donor contracted one of these infections just prior to their , and thattests are unable to detect it. We discussed that we routinely screen recipients of these organs fordevelopment of these disease and if their serologies are positive we can treat, and in some cases, cure these diseases. For hepatitis B positive donors, the risks include the need to take life long antivirals and the risk of developing HCC (0.5% per year) in the donor liver. If the recipient were to accept a HepatitisB liver, they will require a screening ultrasound and blood test screening every 6 months. For hepatitis C positive donors, we discussed that they will get hepatitis C and that we will start them on a medication to treat hepatitis C. We discussed that we can treat and cure hepatitis C in greater than 90% of the cases. We answered all of the patient's questions, and they would like to proceed with liver transplantation listing. Rodrick Bernal MD documented in this encounter Plan of Treatment Upcoming Encounters Date Type Department Care Team (Late st Contact Info) Description 08/27/2024 10:20 AM EST Office Visit Hepatology, [facility] [address] [place] [address] Sari Holder MD [address] [place] [address] 01/13/2025 1:45 PM EDT Imaging Radiology [facility] [address] [place] [address] Health Maintenance Due Date Last Done Comments DISCUSS TOBACCO CESSATION (REFER TO SMARTSET #[id number]) 1972 Pneumococcal Vaccine: Pediatrics (0 to 5 Years) and At-Risk Patients (6 to 64 Years) (1 of 2 - PCV) 1978 Depression Screening 1984 Albumin/Creatinine Ratio 1990 Alpha-1 [...] this encounter Medical Devices Implanted Type Area Fire Observer Device Identifier Shelf Expiration Date Model / Serial / Lot Pod Packing Coil Jsoft 45cm - [id number] Implanted:Qty: 1 on 05/10/2024 at [facility] [employer] [id number] 09/30/2031 RBY [id number] / / [id number] Azur Detachable 018 7mmx 24cm - [id number] Implanted:Qty: 1 on 05/10/2024 at [facility] [employer] [id number] 08/30/2028 [id number] / / [id number] Pod Packing Coil Jsoft 45cm - [id number] Implanted:Qty: 1 on 05/10/2024 at [facility] [employer] [id number] 12/26/2031 RBY [id number] / / [id number] Coil Radha Soft [id number] - [id number] Implanted:Qty: 1 on 05/10/2024 at [facility] [employer] [id number] 10/07/2031 RBY [id number] / / [id number] documented as of this encounter Visit Diagnoses Diagnosis Pre-transplant evaluation for chronic liver disease- Primary Other specified pre-operative examination documented in this [...] Care Agent (per Health Care Power of Provider Contracting Consultant document) Care Teams Pest Controller Relationship Specialty Start Date End Date Jolynn October Raul, PARachidC [address] [place] [address] PCP - General Physician Citrus Fruit Colorer 04/10/24 documented as of this encounter
--- OUTSIDE RECORDS SUMMARY | 2024-08-21 00:19 | External Medical Summary ---
Author Name Unknown Address Unknown Organization [id number]:[facility] [place] [address] [place] [address] Laboratory Report Ordering Provider Test Date Status LUIS MONTGOMERYVIN 07/15/2024 14:53:29 Final Observation Date Value Abnormality Reference (Units ) Status Alpha-Fetoprotein 07/15/2024 14:53:29 3.1 0. 0-8.3 (ng/mL) Final Performing Location [facility] [place] [address] [facility] [address]
--- OUTSIDE RECORDS SUMMARY | 2024-08-21 00:19 | External Medical Summary ---
Author Name Unknown Address Unknown Organization [id number]:LABORATORY [facility] – [place], [place] - [address] [place] [address] Laboratory Report Ordering Provider Test Date Status MELISA MONTGOMERY 07/15/2024 14:53:29 Final Warfarin Therapy
INR: 2 .0-3.0 conventional anticoagulation
INR: 2.5- 3.5 high intensity anticoagulation Observation Date Value Abnormality Reference (Units ) Status PT 07/15/2024 14:53:29 15.8 Above high normal 11 .6-15.2 (seconds) Final INR 07/15/2024 14:53:29 1.2 0.8-1.2 Final Performing Location LABORATORY [facility] – [place], [place] - [address] [place] [address]
--- OUTSIDE RECORDS SUMMARY | 2024-08-21 00:19 | External Medical Summary ---
Author Name Unknown Address Unknown Organization [id number]:LAB[facility]ATORY [facility] [place] - [facility] [place] [address] [facility] [address] Laboratory Report Ordering Provider Test Date Status MELISA MONTGOMERY 07/15/2024 14:53:29 Final Observation Date Value Abnormality Reference (Units ) Status HIV 1+2 Ab+HIV1 p24 Ag [Presence] in Serum or Plasma by Immunoassay 07/15/2024 14:53:29 Negative Negative Final Negative HIV-1/2 antigen and antibody screening tset results usually indicate the absence of HIV-1 and HIV-2 infection. However, such negative results do not rule-out acute HIV infection. If acute HIV-1 infection is highly suspected, it is recommended that a specimen be submitted for detection of HIV-1 RNA. Performing Location LABORATORY [facility] [place] - [address] [facility] [address]
--- OUTSIDE RECORDS SUMMARY | 2024-08-21 00:19 | External Medical Summary ---
Author Name Unknown Address Unknown Organization [id number]:LABORATORY [facility] - [address] [place] [address] Laboratory Report Ordering Provider Test Date Status MELISA MONTGOMERY 07/15/2024 14:53:29 Final Observation Date Value Abnormality Reference (Units ) Status T4, Free 07/15/2024 14:53:29 1.2 0.9-1.7 (n g/dL) Final Performing Location [facility] [address] [facility] [address]
--- OUTSIDE RECORDS SUMMARY | 2024-08-21 00:19 | External Medical Summary | Summary of Care ---
Author Name Unknown Organization [facility] Address [address] [place] [address] Phone [phone] Care Team Providers Care Butter Printer Name Role Phone Jolynn Rina Carter PA-C Primary Care Provider [phone] Reason for Visit * Reason Onset Date Comments Test Results 07/15/2024 Encounter Details Date Type Department Care Team (Late st Contact Info) Description 07/15/2024 [facility] [address] [place] [address] Nicolle Liu RN Test Results Allergies Active Allergy Reactions Criticality [...] Telephone Encounter - Nicolle Liu RN - 07/15/2024 3:59 PM EST Outgoing call to Mr. Amador to review lab results from today. We discussed that his Hgb was 5.9. He denies any bloody emesis or dark colored stools. I advised him to proceed to the emergency room for a re-check of his Hemoglobin and possible transfusion. documented in this encounter Plan of Treatment Upcoming Encounters Date Type Department Care Team (Late st Contact Info) Description 08/27/2024 10:20 AM EST Office Visit Hepatology, [facility] [address] [facility] [place] [address] Sari Holder MD [address] [place] [address] 01/13/2025 1:45 PM EDT Imaging Radiology [facility] [address] [facility] [place] [address] Health Maintenance Due Date Last Done Comments DISCUSS TOBACCO CESSATION (REFER TO SMARTSET #1838) 1970 Pneumococcal Vaccine: Pediatrics (0 to 5 [...] history exists Diabetes Screening 07/15/2027 07/15/2024, 1 , 05/12/2024, Additional history exists Lipid Panel 07/15/2029 07/15/2024, 05/29/2024 Influenza Vaccine (FLU shot) Completed 04/03/2024 HPV (Gardasil) Vaccine Aged Out No lo nger eligible based on patient's age to complete this topic MENINGOCOCCAL (MENACTRA/MENVEO) Aged Out No longer eligible based on patient's age to complete this topic documented as of this encounter Medical Devices Implanted Type Area Customer Development Representative Device Identifier Shelf Expiration Date Model / Serial / Lot Pod Packing Coil Jsoft 45cm - [id number] Implanted:Qty: 1 on 05/10/2024 at [facility] [employer] [id number] 09/30/2031 RBY [id number] / / [id number] Azur Detachable 018 7mmx 24cm - [id number] Implanted:Qty: 1 on 05/10/2024 at [facility] [employer] MARY [id number] 08/30/2028 [id number] / / [id number] Pod Packing Coil Jsoft 45cm - [id number] Implanted:Qty: 1 on 05/10/2024 at [facility] [employer] [id number] 12/26/2031 RBY [id number] / / [id number] Coil Radha Soft [id number] - [id number] Implanted:Qty: 1 on 05/10/2024 at [facility] [employer] [id number] 10/07/2031 RBY [id number] / / [id number] documented as of this encounter Advance Directives [...] Care Agent (per Health Care Power of Duplicator Punch Set Up Operator document) Care Teams Butter Printer Relationship Specialty Start Date End Date JolynnOctober SHAQ Carter [address] [place] [address] PCP - General Physician Sales Solutions Associate 04/10/24 documented as of this encounter
--- OUTSIDE RECORDS SUMMARY | 2024-08-21 00:19 | External Medical Summary ---
Author Name Unknown Address Unknown Organization K01:LABORATORY [facility] - [address] [place] [address] Laboratory Report Ordering Provider Test Date Status MELISA MONTGOMERY 07/15/2024 14:53:29 Final Anticoagulation may affect t esting. Refer to [facility] Test Catalog for a list of effects. Observation Date Value Abnormality Reference (Units ) Status aPTT panel - Platelet poor plasma 07/15/2024 14:53:29 31 21-38 (seconds) Final Performing Location LABORATORY [facility] - [address] [place] [address]
--- OUTSIDE RECORDS SUMMARY | 2024-08-21 00:19 | External Medical Summary | Summary of Care ---
Author Name Unknown Organization [facility] Address [address] [place] [address] Phone [phone] Care Team Providers Care Safety Coordinator Name Role Phone Rina Neil PA-C Primary Care Provider [phone] Reason for Visit * Reason Comments Pre-Transplant Evaluation Encounter Details Date Type Department Care Team (Late st Contact Info) Description 07/15/2024 10:00 AM EST [facility] [address] [place], [place] [id number] Raimundo Ortega MD [address] [place] [address] Rodrick Bernal MD [address] [place], [place] [id number] Nurse Marquita Renal Transplant [address] [place] [address] Mariela Goetz LSW [address] [place], [place] [phone] Pre-transplant evaluation for chronic liver disease* Allergies Active Allergy Reactions Criticality Noted Date Comments Penicillins Unknown 08/09/2023 documented as of this encounter (statuses as of 07/17/2024) Medications Midodrine HCl 5 MG Oral Tablet [...] as of this encounter (statuses as of 07/17/2024) Active Problems Problem Noted Date Diagnosed Date [...] as of this encounter (statuses as of 07/17/2024) Resolved Problems Problem Noted Date Diagnosed Date Resolved Date Upper GI bleed 05/09/2024 05/12/2024 documented as of this encounter (statuses as of 07/17/2024) Immunizations Name Administration Dates Next Due Seasonal [...] Assessment Author No 05/09/2024 7:00 PM Keisha Lnog RN * Do you have serious difficulty [...] daily including chicken, fish, egg whites, low-fat Sierra Leonean yogurt.Avoid red meats, mainly, beef, pork, hunter, [...] Use the website link for guidance from [employer]: htt ps://www.exerciseismedicine.org/wp-content/uploads//YKT_Vn-ovs-Uorgmd_Lkn wfar-Gzgvp-Qgxkfcv.pdf E) Avoid constipation and use lactulose with [...] a little more. He was born in [place]& lived in several states growing up, as his father was in the [employer] for 26 years. Patient lived in [place], [place], [place] & [place]. Patient's was raised by both parents, until his mother around 2010. Patient also has 2 older sisters, Alba & Manuela. Patient's father reti ed when they lived in [place] & then moved to [place] where patient's paternal grandparents are from.Patient's father & 2 sisters live in [place], [place] ([facility]). Patient has a strained relationship with his father, primarily b/c he started seeing a woman that is "no good" around the timepatient's mother . Patient's father is still in [...] He talks with his sister, Manuela, 2-3 x/week & he talks with his sister, Alba, weekly. Patient moved back & forth between [place] & [place] & has been in [place] this time for approximately 5 years. Patient met his room-mate, Cheri * Daly Rivas TECH - 07/15/2024 1:35 PM EST The intent behind this form is to provide accurate insurance information to designate roles of existing coverage, but also to determine patient eligibility for additional state benefits. REASON FOR APPOINTMENT: Pre -Ibarra Eval The following information has been provided by the patient: Santiago Amador [id number] 1970 [id number] [address] [facility] [address] There are no phone numbers on file. Are you a [place] citizen: Yes Are you working: No How long have you been employed with your company? 0 Do you plan to change jobs or employers? no Primary Care: Rina Neil PA-C Are you on a Transplant list elsewhere: no Are you currently on Dialysis: No INSURANCE COVERAGE: Payor: [facility] MEDICAID Plan: [facility] FOR YOU Product Type: *No Product type* Prescription coverage: Yes Medicare Part D plan: no Do you know your pharmacy plan coverage? yes How much do you pay in co-pays or co-insurance? 0 Were all your insurance cards scanned in our system today? yes [employer] HAS OUTLINED THE FOLLOWIN. Patient Financial Expectations [...] VISIT Organ: Liver Referring MD: PCP: [place] [place] [id number] [phone] Referring MD for Pre Liver Transplant evaluation: [...] Stability Do you currently live in a prison or have no steady place to sleep [...] patient was handed Pre-Transplant educational information including '[place] Authorization ofRelease of Medical Information', 'Advance Directives' [...] HEPATOLOGY LIVER TRANSPLANT EVALUATION OP Transplant Clinic, [address] [address] 07/15/2024 11:41 AM Patient name: Santiago Amador : 1970 PCP AND REFERRING PHYSICIAN: Rina Neil PA-C, Rina Neil PA-C Regular GI: Sari Holder Chief Complaint: Pre-transplant evaluation History of Current Illness: [id number] Marjorie is a 53 year old male [...] ANTIBODY Rpt Latest Reference Range & Units 10/30/24 13:32 SODIUM 135 - 146 mmol/L 126 [...] daily including chicken, fish, egg whites, low-fat [place] Leonean yogurt.Avoid red meats, mainly, beef, pork, hunter, [...] Use the website link for guidance from [employer]: htt ps://www.exerciseismedicine.org/wp-content/uploads//OUD_Sm-udd-Wuadfk_Kgi gqxq-Zktvg-Phpjwuh.pdf E) Avoid constipation and use lactulose with [...] contact me if you have any questions. aRimundo Ortega MD Transplant Clinic[address] [address] * Rodrick Bernal MD - 07/15/2024 11:14 AM EST Liver Transplant Surgery Transplant Surgery Evaluation H&P Referring bale coverer: Sari Holder MD PCP: Rina Neil PA-C HPI: Santiago Amador is a 53 [...] the time of donation. These behaviors include alf time, men who have sex with men, [...] 08/27/2024 10:20 AM EST Office Visit Hepatology, [facility] [address] [facility] [place] [address] Sari Holder MD [address] [place] [id number] 01/13/2025 1:45 PM EDT Imaging Radiology [facility] [address] [facility] [place] [address] Health Maintenance Due Date Last Done Comments DISCUSS TOBACCO CESSATION (REFER TO SMARTSET #7716) 1970 Pneumococcal Vaccine: Pediatrics (0 to 5 [...] 05/29/2024 Influenza Vaccine (FLU shot) Completed 04/03/2024 HIV Screening Completed 07/15/2024 HPV (Gardasil) Vaccine Aged Out No lo nger eligible based on patient's age to complete this topic MENINGOCOCCAL (MENACTRA/MENVEO) Aged Out No longer eligible based on patient's age to complete this topic documented as of this encounter Medical Devices Implanted Type Area Sheepskin Pickler Device Identifier Shelf Expiration Date Model / Serial / Lot Pod Packing Coil Jsoft 45cm - [id number] Implanted:Qty: 1 on 05/10/2024 at [facility] [employer] [id number] 09/30/2031 RBY [id number] / / [id number] Azur Detachable 018 7mmx 24cm - [id number] Implanted:Qty: 1 on 05/10/2024 at [facility] [employer] [id number] 08/30/2028 [id number] / / [id number] Pod Packing Coil Jsoft 45cm - [id number] Implanted:Qty: 1 on 05/10/2024 at [facility] [employer] [id number] 12/26/2031 RBY PODJ45 / / [id number] Coil Radha Soft [id number] - [id number] Implanted:Qty: 1 on 05/10/2024 at [facility] [employer] [id number] 10/07/2031 RBY [id number] / / [id number] documented as of this encounter Visit Diagnoses [...] Care Agent (per Health Care Power of Production Coordinator document) Care Teams Safety Coordinator Relationship Specialty Start Date End Date JolynnOctober Raul, LYNNC [address] [place] [address] PCP - General Physician Contract Serviceman 04/10/24 documented as of this encounter
--- OUTSIDE RECORDS SUMMARY | 2024-08-21 00:19 | External Medical Summary ---
Author Name Unknown Address Unknown Organization : Laboratory Report Ordering Provider Test Date Status MELISA MONTGOMERY 07/15/2024 14:53:29 Final Observation Date Value Abnormality Reference (Units ) Status PETH 16:0/18:1 (POPETH) 07/15/2024 14:53:29 NEGATIVE <20 (ng/mL) Final PETH 16:0/18:2 (PLPETH) 07/15/2024 14:53:29 NEGATIVE <20 (ng/mL) Final PETH COMMENTS 07/15/2024 14:53:29 SEE BELOW Final See LDT Notes
Notes and Comments
This drug testing is for medical treatment only.
Analysis was performed as non-forensic testing and
these results should be used only by healthcare
providers to render diagnosis or treatment, or to
monitor progress of medical conditions.
LDT Notes:
These tests were developed and their analytical
performance characteristics have been determined
by [facility]. They have not been cleared
or approved by the FDA. These assays have been
validated pursuant to the CLIA regulations and are
used for clinical purposes.
Healthcare Providers needing Interpretation
assistance, please contact us at [phone]
( )M-F, 8am to 10pm EST

Test Performed at:
[facility]
[address] [facility]
[place] [address]
Anil Wilburn M.D., Ph.D.,Director of Laboratories Performing Location
--- OUTSIDE RECORDS SUMMARY | 2024-08-21 00:19 | External Medical Summary | Summary of Care ---
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 GARCIELA (acute kidney injury) 05/10/2024 GAVE (gastric antral [...] Office Visit Hepatology, [facility] [address] [facility] [place] [address] Sari Holder MD [address] [place] [address] 01/13/2025 1:45 PM EDT Imaging Radiology [facility] [address] [facility] [place] [address] Health Maintenance Due Date Last Done Comments DISCUSS TOBACCO CESSATION (REFER TO SMARTSET #1457) 1970 Pneumococcal Vaccine: Pediatrics (0 to 5 [...] this encounter Medical Devices Implanted Type Area Computer Technical Support Specialist Device Identifier Shelf Expiration Date Model / Serial / Lot Pod Packing Coil Jsoft 45cm - [id number] Implanted:Qty: 1 on 05/10/2024 at [facility] [id number] 09/30/2031 RBY PODJ45 / / [id number] Azur Detachable 018 7mmx 24cm - [id number] Implanted:Qty: 1 on 05/10/2024 at [facility] [employer] [id number] 08/30/2028 [id number] / / [id number] Pod Packing Coil Jsoft 45cm - [id number] Implanted:Qty: 1 on 05/10/2024 at [facility] [id number] 12/26/2031 RBY PODJ45 / / [id number] Coil Radha Soft [id number] - [id number] Implanted:Qty: 1 [address] [facility] [employer] [facility] [id number] 10/07/2031 RBY [id number] / / [id number] documented as of this encounter Procedures Procedure Name Priority Date/Time Associated Diagnosis Comments RADIOLOGY SCANNED RESULT 07/17/2024 documented in this encounter Results * RADIOLOGY SCANNED RESULT (07/17/2024) 07/17/2024 us Sari Holder MD DIAGNOSTIC RADIOLOGY SERVICES [...] Name Relationship Healthcare Agent Relationshi p Communication Manuelachalo Amador Sibling First Alternate Health Care Agent (per Health Care Power of Building Contractor document) Care Teams Metal Furnace Operator Relationship Specialty Start Date End Date Mary Jooctober SHAQ Carter [address] [place] [address] PCP - General Physician Management Expert 04/10/24 documented as of this encounter
--- OUTSIDE RECORDS SUMMARY | 2024-08-21 00:20 | External Medical Summary ---
Author Name Unknown Address Unknown Organization K01:LABORATORY [facility] - [address] [facility] [address] [facility] [address] Laboratory Report Ordering Provider Test Date Status MELISA MONTGOMERY 07/15/2024 14:53:29 Final Observation Date Value Abnormality Reference (Units ) Status WBC, Total 07/15/2024 14:53:29 11.15 Above high normal 4.00-10.80 (K/uL) Final RBC 07/15/2024 14:53:29 2.11 4.50-5.25 (M/uL) Final Hemoglobin 07/15/2024 14:53:29 5.9 Below lower panic limits 14.0-16.8 (g/dL) Final HCT 07/15/2024 14:53:29 20.2 Below low normal 40.0-48.4 (%) Final MCV 07/15/2024 14:53:29 95.7 82.0-99.5 (fL) Final MCH 07/15/2024 14:53:29 28.0 27.0-34.0 (pg) Final MCHC 07/15/2024 14:53:29 29.2 32.0-36.0 (g/dL) Final RDW 07/15/2024 14:53:29 16.9 11.5-15.5 (%) Final Platelets 07/15/2024 14:53:29 299 140-400 (K/uL) Final MPV 07/15/2024 14:53:29 9.1 6.6-11.1 (fL) Final Nucleated erythrocytes/100 leukocytes [Ratio] in Blood by Automated count 07/15/2024 14:53:29 0 <=0 (/100 WBCs) Final Performing Location LABORATORY [facility] - [address] [facility] [address]
--- OUTSIDE RECORDS SUMMARY | 2024-08-21 00:20 | External Medical Summary ---
Author Name Unknown Address Unknown Organization K01:LABORATORY [place] [address] [place] [address] Laboratory Report Ordering Provider Test Date Status MELISA MONTGOMERY 07/15/2024 14:53:29 Final Observation Date Value Abnormality Reference (Units) Status Hepatitis B virus surface Ab [Units/volume] in Serum or Plasma by Immunoassay 07/15/2024 14:53:29 <3.5 (mIU/mL) Final Hepatitis B virus surface Ab [Presence] in Serum by Immunoassay 07/15/2024 14:53:29 Negative Final HEPATITIS B SURFACE ANTIBODY, INTERPRETATION 07/15/2024 14:53:29 NOT immune to Hepatitis B Virus Final POSITIVE: >=11.5 mIU/mL
INDETERMINATE: 8.5-<11.5 mIU/mL
NEGATIVE: <8.5 mIU/mL Performing Location LAB[facility]ORY [place] [address] [place] [address]
--- OUTSIDE RECORDS SUMMARY | 2024-08-21 00:20 | External Medical Summary ---
Author Name Unknown Address Unknown Organization K01:LABORATORY [facility] - [address] [place] [address] Laboratory Report Ordering Provider Test Date Status MELISA MONTGOMERY 07/15/2024 14:53:29 Final Observation Date Value Abnormality Reference (Units ) Status ABO 07/15/2024 14:53:29 A Final RH 07/15/2024 14:53:29 Negative Final Performing Location LABORATORY [facility] - [address] [place] [address]
--- OUTSIDE RECORDS SUMMARY | 2024-08-21 00:20 | External Medical Summary ---
Author Name Unknown Address Unknown Organization K01:LABORATORY [facility] - [address] [place] [address] Laboratory Report Ordering Provider Test Date Status MELISA MONTGOMERY 07/15/2024 14:53:29 Final Observation Date Value Abnormality Reference (Units ) Status Hep A, IgG and/or IgM 07/15/2024 14:53:29 Negative Negative Final Performing Location LABORATORY [facility] - [address] [place] [address]
--- OUTSIDE RECORDS SUMMARY | 2024-08-21 00:20 | External Medical Summary ---
Author Name Unknown Address Unknown Organization K01:LAB[facility]ATORY [facility] [place] - [address] [facility] [place] [address] Laboratory Report Ordering Provider Test Date Status MELISA MONTGOMERY 07/15/2024 14:53:29 Final Observation Date Value Abnormality Reference (Units ) Status Karen Atkins virus capsid IgG Ab avidity [Presence] in Serum by Immunoassay 07/15/2024 14:53:29 Positive Abnormal Negative Final Performing Location LAB[facility]ORY [facility] - [address] [place] [address]
--- OUTSIDE RECORDS SUMMARY | 2024-08-21 00:20 | External Medical Summary ---
Author Name Unknown Address Unknown Organization K01:LABORATORY [facility] - [address] [facility] [address] [place] [address] Laboratory Report Ordering Provider Test Date Status MELISA MONTGOMERY 07/15/2024 14:53:29 Final Observation Date Value Abnormality Reference (Units ) Status Triglyceride 07/15/2024 14:53:29 64 <=174 ( mg/dL) Final Triglyceride Reference Range s (mg/dL):
<150 Acceptable
150-174 Borderline high
175-499 High
>=500 Very high Cholesterol 07/15/2024 14:53:29 107 <200 (mg /dL) Final Total Cholesterol Reference Ranges (mg/dL):
<200 Desirable
200-239 Borderline high
>=240 High HDL 07/15/2024 14:53:29 40 >39 (mg/dL ) Final HDL Cholesterol Reference Ra nges (mg/dL):
>=60 High (Desirable)
<50 Low (Undesirable) For Females
<40 Low (Undesirable) For Males NON-HDL CHOLESTEROL 07/15/2024 14:53:29 67 <=159 (mg/dL) Final Non-HDL Cholesterol Referenc e Range (mg/dL):
<100 Target level for high risk ASCVD patient
<130 Optimal for general population
130-159 Near optimal for general population
160-189 Borderline High
190-219 High
>=220 Very High LDL, (calculated) 07/15/2024 14:53:29 54 <= 129 (mg/dL) Final LDL Cholesterol Reference Ra nges (mg/dL):
<70 Target level for high risk ASCVD patient
<100 Optimal for general population
100-129 Near optimal for general population
130-159 Borderline high
160-189 High
>=190 Very high Performing Location LAB[facility]ATORY [facility] - [address] [facility] [address]
--- OUTSIDE RECORDS SUMMARY | 2024-08-21 00:20 | External Medical Summary ---
Author Name Unknown Address Unknown Organization K01:LABORATORY [facility] - [address] [place] [address] Laboratory Report Ordering Provider Test Date Status MELISA MONTGOMERY 07/15/2024 14:53:29 Final Observation Date Value Abnormality Reference (Units ) Status PSA 07/15/2024 14:53:29 <0.02 <3.10 (ng/ mL) Final Performing Location LABORATORY [facility] - [address] [place] [address]
--- OUTSIDE RECORDS SUMMARY | 2024-08-21 00:20 | External Medical Summary ---
Author Name Unknown Address Unknown Organization K01:[facility] [place] [address] [facility] [address] Laboratory Report Ordering Provider Test Date Status MELISA MONTGOMERY 07/15/2024 14:53:29 Final Observation Date Value Abnormality Reference (Units ) Status HbA1C 07/15/2024 14:53:29 4.5 4.0-5.6 (% ) Final The use of HbA1c to monitor glycemic status is based on normal hemoglobin and HbA composition. This test should not be used in patients with abnormal hemoglobin that affects the half life of the red blood cell or the in vivo glycation rates. Glucose, estimated average 07/15/2024 14:53:29 82 <126 (mg/dL) Final Performing Location [facility] [place] [facility] [address] [facility] [address]
--- OUTSIDE RECORDS SUMMARY | 2024-08-21 00:20 | External Medical Summary ---
Author Name Unknown Address Unknown Organization K01:[facility] - [facility] [address] [place] [address] Laboratory Report Ordering Provider Test Date Status MELISA MONTGOMERY 07/15/2024 14:53:29 Final Observation Date Value Abnormality Reference (Units ) Status Reagin Ab [Presence] in Serum by RPR 07/15/2024 14:53:29 Nonreactive Nonreactive Final Performing Location [facility] - [address] [facility] [address]
--- OUTSIDE RECORDS SUMMARY | 2024-08-21 00:20 | External Medical Summary ---
Author Name Unknown Address Unknown Organization K01:LABORATORY [facility] - [address] [facility] [address] [facility] [address] Laboratory Report Ordering Provider Test Date Status MELISA MONTGOMERY 07/15/2024 14:53:29 Final Observation Date Value Abnormality Reference (Units ) Status Ethanol 07/15/2024 14:53:29 Negative Negative Final Performing Location LABORATORY [facility] - [address] [facility] [address]
--- OUTSIDE RECORDS SUMMARY | 2024-08-21 00:20 | External Medical Summary ---
Author Name Unknown Address Unknown Organization K01:[facility] [place] - [address] [facility] [address] Laboratory Report Ordering Provider Test Date Status MELISA MONTGOMERY 07/15/2024 14:53:29 Final Cutoff Concentration:
D rug Level
THC-COOH 10 ng/mL

This test was developed and its performance characteristics determined by [facility]. It has not been cleared or approved by the US Food and Drug Administration.
null Observation Date Value Abnormality Reference (Units ) Status METHODOLOGY 07/15/2024 14:53:29 LC-MS/MS Final Cannabinoids, Urine confirmatory 07/15/2024 14:53:29 15 Above high normal Negative (ng/mL) Final Performing Location [facility] [place] - [address] [facility] [address]
--- OUTSIDE RECORDS SUMMARY | 2024-08-21 00:20 | External Medical Summary ---
Author Name Unknown Address Unknown Organization K01:[facility] - [address] [place] [address] Laboratory Report Ordering Provider Test Date Status MELISA MONTGOMERY 07/15/2024 14:53:29 Final Observation Date Value Abnormality Reference (Units ) Status Hep C Ab 07/15/2024 14:53:29 Negative Negative Final Further HCV quantitative lorena ting not performed per protocol. Performing Location [facility] - [address] [place] [address]
--- OUTSIDE RECORDS SUMMARY | 2024-08-21 00:20 | External Medical Summary ---
Author Name Unknown Address Unknown Organization K01:LABORATORY [facility] - [address] [facility] [place] [address] Laboratory Report Ordering Provider Test Date Status MELISA MONTGOMERY 07/15/2024 14:53:29 Final Observation Date Value Abnormality Reference (Units ) Status BUN 07/15/2024 14:53:29 42 Above high normal 6-20 (mg/dL) Final Creatinine 07/15/2024 14:53:29 2.4 Above high normal 0.6-1.2 (mg/dL) Final Glomerular filtration rate/1.73 sq M.predicted [Volume Rate/Area] in Serum, Plasma or Blood by Creatinine-based formula (CKD-EPI) 07/15/2024 14:53:29 32 Below low normal >=60 (mL/min) Final eGFR is calculated based on the CKD-EPI 2020 equation. Sodium 07/15/2024 14:53:29 132 Below low normal 135 -146 (mmol/L) Final Potassium 07/15/2024 14:53:29 4.6 3.5-5.1 (m mol/L) Final Cl 07/15/2024 14:53:29 97 Below low normal 98- 107 (mmol/L) Final CO2 07/15/2024 14:53:29 22 22-32 (mmo l/L) Final Anion gap 07/15/2024 14:53:29 13 7-15 (mmol /L) Final Glucose 07/15/2024 14:53:29 90 70-120 (mg /dL) Final Albumin 07/15/2024 14:53:29 3.1 Below low normal 3.8 -5.0 (g/dL) Final AST (Aspartate aminotransferase) 07/15/2024 14:53:29 24 10-50 (U/L) Fin al Alk Phos 07/15/2024 14:53:29 69 35-130 (U/ L) Final Bilirubin, Total 07/15/2024 14:53:29 1.1 <=1 .2 (mg/dL) Final Calcium 07/15/2024 14:53:29 8.6 8.4-10.2 ( mg/dL) Final Protein 07/15/2024 14:53:29 6.7 6.0-8.3 (g /dL) Final ALT (Alanine aminotransferase) 07/15/2024 14:53:29 10 10-50 (U/L) Yohan thomas Performing Location LAB[facility]ORY [facility] - [address] [facility] [address]
--- OUTSIDE RECORDS SUMMARY | 2024-08-21 00:20 | External Medical Summary ---
Author Name Unknown Address Unknown Organization K01:[facility] - [address] [facility] [address] Laboratory Report Ordering Provider Test Date Status MELISA MONTGOMERY 07/15/2024 14:53:29 Final Observation Date Value Abnormality Reference (Units ) Status Hep B surface Ag 07/15/2024 14:53:29 Negative Neg ative Final Performing Location [facility] - [address] [facility] [address]
--- OUTSIDE RECORDS SUMMARY | 2024-08-21 00:20 | External Medical Summary | Summary of Care ---
Author Name Unknown Organization [facility] Address [address] [place] [address] Phone [phone] Care Team Providers Care Routeman Name Role Phone Jolynn Rina Raul NEW Primary Care Provider [phone] Reason for Visit * Reason Onset Date Comments Pre-Transplant Evaluation 06/21/2024 Encounter Details Date Type Department Care Team (Late st Contact Info) Description 06/21/20[facility] [address] [place] [address] Nicolle Liu RN Pre-Transplant Evaluation Allergies Active Allergy Reactions Criticality Noted Date Comments Penicillins Unknown 08/09/2023 documented as of this encounter (statuses as of 06/21/2024) Medications Midodrine HCl 5 MG Oral Tablet (Proamatine) Take 1 Tablet by mouth in the morning and 1 Tablet at noon and 1 Tablet in the evening. 90 Tablet 3 4 Active Pantoprazole Sodium 40 MG Oral Tablet Delayed Release (Protonix) Take 1 Tablet by mouth in the morning and 1 Tablet in the evening. 60 Tablet 5 4 Active Gabapentin 300 MG Oral Capsule (Neurontin)Nanda [...] at bedtime. 30 Tablet 5 4 Active Albumin Human 25 % Intravenous SolutionIndicat ions:Alcoholic cirrhosis of liver with ascites (HCC) Administer 50 mL intravenously once for 1 dose. 50 mL 4 024 Active documented as of this encounter (statuses as of 06/21/2024) Active Problems Problem Noted Date Diagnosed Date [...] as of this encounter (statuses as of 06/21/2024) Resolved Problems Problem Noted Date Diagnosed Date Resolved Date Upper GI bleed 05/09/2024 05/12/2024 documented as of this encounter (statuses as of 06/21/2024) Immunizations Name Administration Dates Next Due Seasonal Influenza, Trivalent, (IIV3), PF, (Fluz one) 04/03/2024 documented as of this encounter Social History Tobacco Use Types Packs/Day Years Used Date Smoking Tobacco: Every Day Cigarettes 1 33.9 Started: 1990 Smokeless Tobacco: Never Alcohol Use [...] ages 0-17 years) Not on file 05/09/2024 Social Connections Answer Date Recorded How often do you feel lonely or isolated from those around you? 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 Holder. He shares that he learned about his cirrhosis during the Spring/Summer of 2023 after some routine lab work came back out of range. He has had several admissions for anemia, altered mental status, volume overload, and alteration inelectrolytes. At his heaviest alcohol use, he was drinking about 1/2 gallon of whiskey a night. Chart review alsoshows that at one point he also drank about a gallon of wine daily and beer. His last drink of alcohol was February 18, 2024 when he learned that he had cirrhosis. He is not currently attending any counseling or support group and feels that he has "all the tools he needs" from previous rehab stays. He smoked about 8-10 cigarettes and day and has smoked for over 30 years. He has historical use of marijuana but has not used in at least the last 10 years. He continues to have problems with ascites and is currently requiring a paracentesis every other week for about 6-10 L at a time. He is also using Aldactone for management of his ascites. He denies hepatic encephalopathy but is currently taking Lactulose daily. A MRI of the liver was completed on 11/20/23. He thinks that he has had a [facility]. A CT scan of the Abd/Pelvis was completed on 05/10/24. EGD was completed on 05/09/24 He is on the waitlist for a colonoscopy. I reviewed the allocation of liver transplants based on MELD scores. He thinks his last score was around 24. He has accepted an appointment for initial liver transplant evaluation on July 15 and is aware that a support person must accompany him to the visit. documented in this encounter Plan of Treatment Upcoming Encounters Date Type Department Care Team (Late st Contact Info) Description 07/15/2024 10:00 AM EST Office Visit Transplant Clinic, [place] [address] [place] [address] Raimundo Ortega MD [facility] [address] [place], [place] [phone] Rodrick Bernal MD [facility] [address] [place], [place] [phone] Nurse Marquita Renal Transplant [address] [place] [address] [phone] Mariela Goetz, REGROOVER [facility] [address] [place], [place] [phone] 07/15/2024 2:30 PM EST Laboratory Outpatient Laboratory, [address] [address] [place], Lab B[address]a [address] [place] [address] [id number] 08/27/2024 10:20 AM EST Office Visit Hepatology, [facility] [address] [place] [address] Sari Holder MD [address] [place], [place] [address] [address] 01/13/2025 1:45 PM EDT Imaging Radiology [facility] [address] [place] [address] 01/16/2025 3:00 PM EDT Office Visit Urology, [address] [phone] Brianna Segovia PA-C [facility] [address] [place], [place] [phone] Scheduled Orders Name Type Priority Associated Diagnoses Orde r Schedule COMPREHENSIVE METABOLIC PANEL Lab Routine Alcoholic cirrhosis of liver with ascites (HCC) Pre-transplant evaluation for chronic liver disease Expected: 07/15/2024 (Approximate), Expires: 05/26/2025 T4, FREE Lab Routine Alcoholic cirrhosis of liver with ascites (HCC) Pre-transplant evaluation for chronic liver disease Expected: 07/15/2024 (Approximate), Expires: 05/26/2025 TSH Lab Routine Alcoholic cirrhosis of liver with ascites (HCC) Pre-transplant evaluation for chronic liver disease Expected: 07/15/2024 (Approximate), Expires: 05/26/2025 ALPHA-FETOPROTEIN TUMOR MARKER Lab Routine Alcoholic cirrhosis of liver with ascites (HCC) Pre-transplant evaluation for chronic liver disease Expected: 07/15/2024 (Approximate), Expires: 05/26/2025 PSA Lab Routine Alcoholic cirrhosis of liver with ascites (HCC) Pre-transplant evaluation for chronic liver disease Expected: 07/15/2024 (Approximate), Expires: 05/26/2025 HEPATITIS A ANTIBODIES IGG AND IGM Lab Routine Alcoholic cirrhosis of liver with ascites (HCC) Pre-transplant evaluation for chronic liver disease Expected: 07/15/2024 (Approximate), Expires: 05/26/2025 HEPATITIS B SURFACE ANTIBODY Lab Routine Alcoholic cirrhosis of liver with ascites (HCC) Pre-transplant evaluation for chronic liver disease Expected: 07/15/2024 (Approximate), Expires: 05/26/2025 HEPATITIS B SURFACE ANTIGEN Lab Routine Alcoholic cirrhosis of liver with ascites (HCC) Pre-transplant evaluation for chronic liver disease Expected: 07/15/2024 (Approximate), Expires: 05/26/2025 HEPATITIS B CORE ANTIBODIES IGG AND IGM Lab Routine Alcoholic cirrhosis of liver with ascites (HCC) Pre-transplant evaluation for chronic liver disease Expected: 07/15/2024 (Approximate), Expires: 05/26/2025 HEPATITIS C ANTIBODY SCREEN WITH PROGRESSION TO HEPATITIS C RNA QUANTITATIVE Lab Routine Alcoholic cirrhosis of liver with ascites (HCC) Pre-transplant evaluation for chronic liver disease Expected: 07/15/2024 (Approximate), Expires: 05/26/2025 CMV IGG ANTIBODY Lab Routine Alcoholic cirrhosis of liver with ascites (HCC) Pre-transplant evaluation for chronic liver disease Expected: 07/15/2024 (Approximate), Expires: 05/26/2025 EBV VIRAL CAPSID ANTIGEN IGG ANTIBODY Lab Routine Alcoholic cirrhosis of liver with ascites (HCC) Pre-transplant evaluation for chronic liver disease Expected: 07/15/2024 (Approximate), Expires: 05/26/2025 VARICELLA-ZOSTER VIRUS ANTIBODY, IGG Lab Routine Alcoholic cirrhosis of liver with ascites (HCC) Pre-transplant evaluation for chronic liver disease Expected: 07/15/2024 (Approximate), Expires: 05/26/2025 RPR Lab Routine Alcoholic cirrhosis of liver with ascites (HCC) Pre-transplant evaluation for chronic liver disease Expected: 07/15/2024 (Approximate), Expires: 05/26/2025 QUANTIFERON TB GOLD PLUS Lab Routine Alcoholic cirrhosis of liver with ascites (HCC) Pre-transplant evaluation for chronic liver disease Expected: 07/15/2024 (Approximate), Expires: 05/26/2025 CBC WITH WBC DIFFERENTIAL Lab Routine Alcoholic cirrhosis of liver with ascites (HCC) Pre-transplant evaluation for chronic liver disease Expected: 07/15/2024 (Approximate), Expires: 05/26/2025 PT INR Lab Routine Alcoholic cirrhosis of liver with ascites (HCC) Pre-transplant evaluation for chronic liver disease Expected: 07/15/2024 (Approximate), Expires: 05/26/2025 APTT Lab Routine Alcoholic cirrhosis of liver with ascites (HCC) Pre-transplant evaluation for chronic liver disease Expected: 07/15/2024 (Approximate), Expires: 05/26/2025 URINALYSIS, REFLEX TO MICROSCOPIC Lab Routine Alcoholic cirrhosis of liver with ascites (HCC) Pre-transplant evaluation for chronic liver disease Expected: 07/15/2024 (Approximate), Expires: 05/26/2025 TRANSPLANT ABO/RH CONFIRMATION Lab Routine Alcoholic cirrhosis of liver with ascites (HCC) Pre-transplant evaluation for chronic liver disease Expected: 07/15/2024 (Approximate), Expires: 05/26/2025 HIV ANTIGEN & ANTIBODY SCREEN W/ CONFIRMATION Lab Routine Alcoholic cirrhosis of liver with ascites (HCC) Pre-transplant evaluation for chronic liver disease Expected: 07/15/2024 (Approximate), Expires: 05/26/2025 PHOSPHORUS Lab Routine Alcoholic cirrhosis of liver with ascites (HCC) Pre-transplant evaluation for chronic liver disease Expected: 07/15/2024 (Approximate), Expires: 05/26/2025 MAGNESIUM Lab Routine Alcoholic cirrhosis of liver with ascites (HCC) Pre-transplant evaluation for chronic liver disease Expected: 07/15/2024 (Approximate), Expires: 05/26/2025 LIPID PANEL WITHOUT DIRECT LDL Lab Routine Alcoholic cirrhosis of liver with ascites (HCC) Pre-transplant evaluation for chronic liver disease Expected: 07/15/2024 (Approximate), Expires: 05/26/2025 HEMOGLOBIN A1C Lab Routine Alcoholic cirrhosis of liver with ascites (HCC) Pre-transplant evaluation for chronic liver disease Expected: 07/15/2024 (Approximate), Expires: 05/26/2025 ETHANOL, MEDICAL Lab Routine Alcoholic cirrhosis of liver with ascites (HCC) Pre-transplant evaluation for chronic liver disease Expected: 07/15/2024 (Approximate), Expires: 05/26/2025 TOXICOLOGY, URINESCREEN W/ CONFIRMATION Lab Routine Alcoholic cirrhosis of liver with ascites (HCC) Pre-transplant evaluation for chronic liver disease Expected: 07/15/2024 (Approximate), Expires: 05/26/2025 PHOSPHATIDYLETHANOL, BLOOD Lab Routine Alcoholic cirrhosis of liver with ascites (HCC) Pre-transplant evaluation for chronic liver disease Expected: 07/15/2024 (Approximate), Expires: 05/26/2025 Health Maintenance Due Date Last Done Comments DISCUSS TOBACCO CESSATION (REFER TO SMARTSET #7174) 1970 Pneumococcal Vaccine: Pediatrics (0 to 5 [...] this encounter Medical Devices Implanted Type Area Sander And Polisher Device Identifier Shelf Expiration Date Model / Serial / Lot Pod Packing Coil Jsoft 45cm - [id number] Implanted:Qty: 1 on 05/10/2024 at [facility] [employer] [id number] 09/30/2031 RBY [id number] / / [id number] Azur Detachable 018 7mmx 24cm - [id number] Implanted:Qty: 1 on 05/10/2024 at [facility] [a]list games [id number] 08/30/2028 [id number] / / [id number] Pod Packing Coil Jsoft 45cm - [id number] Implanted:Qty: 1 on 05/10/2024 at [facility] [employer] [id number] 12/26/2031 RBY [id number] / / [id number] Coil Radha Soft 7tis77ed - [id number] Implanted:Qty: 1 on 05/10/2024 at [facility] [employer] [id number] 10/07/2031 RBY [id number] / / [id number] documented as of this encounter Visit Diagnoses [...] Care Agent (per Health Care Power of Pharmacogeneticist document) Care Teams Routeman Relationship Specialty Start Date End Date Mary Jooctober SHAQ [address] [place], [place] [address] PCP - General Physician Manager School 04/10/24 documented as of this encounter
--- OUTSIDE RECORDS SUMMARY | 2024-08-21 00:20 | External Medical Summary | Summary of Care ---
Author Name Unknown Organization [facility] Address [address] [place] [address] Phone [phone] Care Team Providers Care Physical Therapist Name Role Phone Jolynn Rina Raul NEW Primary Care Provider [phone] Reason for Visit * Reason Onset Date Comments Pre-Transplant Evaluation 06/21/2024 Encounter Details Date Type Department Care Team (Late st Contact Info) Description 06/21/2024 [facility] [address] [place] [address] Nicolle Liu RN Pre-Transplant Evaluation [...] [facility] scan of the Abd/Pelvis [...] 10:00 AM EST Office Visit Transplant Clinic, [place] [address] [place] [address] Raimundo Ortega MD [facility] [place] [phone] Rodrick Bernal MD [facility] [place], [place] [phone] Nurse Marquita Renal Transplant [address] [place] [address] [phone] Mariela Goetz, SUPERVISOR PUBLIC HEALTH NURSING [facility] [address] [place], [place] [phone] 07/15/2024 2:30 PM EST Laboratory Outpatient Laboratory, [address] [address] [place], Lab B[address]a [address] [place] [id number] 08/27/2024 10:20 AM EST Office Visit Hepatology, [facility] [address] [place] [address] Sari Holder MD [address] [place], [place] [address] [address] 01/13/2025 1:45 PM EDT Imaging Radiology [facility] 132 [place] [address] 01/16/2025 3:00 PM EDT Office Visit Urology, [address] [phone] Brianna Segovia PA-C [facility] [address] [place], [place] [phone] Scheduled Orders Name Type Priority Associated Diagnoses [...] Comments DISCUSS TOBACCO CESSATION (REFER TO SMARTSET #5395) 1970 Pneumococcal Vaccine: Pediatrics (0 to 5 [...] this encounter Medical Devices Implanted Type Area Open Hearth Furnace Laborer Device Identifier Shelf Expiration Date Model / Serial / Lot Pod Packing Coil Jsoft 45cm - [id number] Implanted:Qty: 1 on 05/10/2024 at [facility] [employer] [id number] 09/30/2031 RBY [id number] / / [id number] Azur Detachable 018 7mmx 24cm - [id number] Implanted:Qty: 1 on 05/10/2024 at [facility] [employer] [id number] 08/30/2028 [id number] / / [id number] Pod Packing Coil Jsoft 45cm - [id number] Implanted:Qty: 1 on 05/10/2024 at [facility] [employer] [id number] 12/26/2031 RBY PODJ45 / / [id number] Coil Radha Soft [id number] - [id number] Implanted:Qty: 1 on 05/10/2024 at [facility] [employer] [id number] 10/07/2031 RBY [id number] / / [id number] documented as of this encounter Visit Diagnoses [...] Care Agent (per Health Care Power of Chip Washer document) Care Teams Physical Therapist Relationship Specialty Start Date End Date Mary Jooctober SHAQ Carter [address] [place], [place] [address] PCP - General Physician Senior Java Software Developer 04/10/24 documented as of this encounter
--- OUTSIDE RECORDS SUMMARY | 2024-08-21 00:20 | External Medical Summary ---
Author Name Unknown Address Unknown Organization K01:[facility]ORY [facility] [address] Laboratory Report Ordering Provider Test Date Status MELISA MONTGOMERY 07/15/2024 14:53:29 Final Cutoff Concentrations:
Drug Level
Amphetamines 500 ng/mL
Benzodiazepines 100 ng/mL
Cannabinoids 50 ng/mL
Cocaine Metabolite 150 ng/mL
Fentanyl 1 ng/mL
Hydrocodone / Hydromorphone 300 ng/mL
Methadone Metabolite 100 ng/mL
Morphine / Codeine 300 ng/mL
Oxycodone / Oxymorphone 100 ng/mL

Screening results are presumptive and can only be used for medical purposes. Positive screening results are reflexed to confirmatory testing. Observation Date Value Abnormality Reference (Units ) Status Amphetamines, Urine screen 07/15/2024 14:53:29 Negative Negative Final Benzodiazepines, Urine screen 07/15/2024 14:53:29 Negative Negative Final Cannabinoids, Urine screen 07/15/2024 14:53:29 Positive Abnormal Negative Final Cocaine Metabolite, Urine screen 07/15/2024 14:53:29 Negative Negative Final fentaNYL [Presence] in Urine by Screen method 07/15/2024 14:53:29 Negative Negative Final HYDROcodone [Presence] in Urine by Screen method 07/15/2024 14:53:29 Negative Negative Final 5-Krumjbbstg-7,5-Dimeth yl-3,3-Diphenylpyrrolid ine (EDDP) [Presence] in Urine 07/15/2024 14:53:29 Negative Negative Final Opiates, Urine screen 07/15/2024 14:53:29 Negative Negative Final oxyCODONE [Presence] in Urine by Screen method 07/15/2024 14:53:29 Negative Negative Final Performing Location LAB[facility]ATORY [facility] - [address] [facility] [address]
--- OUTSIDE RECORDS SUMMARY | 2024-08-21 00:20 | External Medical Summary ---
Author Name Unknown Address Unknown Organization : Laboratory Report Ordering Provider Test Date Status MELISA MONTGOMERY 07/15/2024 14:53:29 Final Observation Date Value Abnormality Reference (Units ) Status Mycobacterium tuberculosis stimulated gamma interferon [Interpretation] in Blood Qualitative 07/15/2024 14:53:29 NEGATIVE NEGATIVE Final Negative test result. M. tub erculosis complex
infection unlikely. Gamma interferon background [Units/volume] in Blood by Immunoassay 07/15/2024 14:53:29 0.04 (IU/mL) Final Mitogen stimulated gamma int erferon [Units/volume] corrected for background in Blood 07/15/2024 14:53:29 7.23 (IU/mL) Final Mycobacterium tuberculosis s timulated gamma interferon release by CD4+ T-cells [Units/volume] corrected for background in Blood 07/15/2024 14:53:29 0.01 (IU/mL) Final Mycobacterium tuberculosis s timulated gamma interferon release by CD4+ and CD8+ T-cells [Units/volume] corrected for background in Blood 07/15/2024 14:53:29 0.01 (IU/mL) Final The Nil tube value reflects the background interferon
gamma immune response of the patient's blood sample.
This value has been subtracted from the patient's
displayed TB and Mitogen results.
Lower than expected results with the Mitogen tube
prevent false-negative Quantiferon readings by detect-
ing a patient with a potential immune suppressive
condition and/or suboptimal pre-analytical specimen
handling.
The TB1 Antigen tube is coated with the M.
tuberculosis-specific antigens designed to elicit
responses from TB antigen primed CD4+ helper
T-lymphocytes.
The TB2 Antigen tube is coated with the M.
tuberculosis-specific antigens designed to elicit
responses from TB antigen primed CD4+ helper and CD8+
cytotoxic T-lymphocytes.
For additional information, please refer to
http://[email or web address]/faq/TBJ419
(This link is being provided for information/
educational purposes only.)

Test Performed at:
[facility]
[address] [facility]
[place] [address]
Anil Wilburn M.D., Ph.D.,Director of Laboratories Performing Location
--- OUTSIDE RECORDS SUMMARY | 2024-08-21 00:20 | External Medical Summary ---
Author Name Unknown Address Unknown Organization K01:LABORATORY [facility] - [address] [facility] [address] Laboratory Report Ordering Provider Test Date Status MELISA MONTGOMERY 07/15/2024 14:53:29 Final Observation Date Value Abnormality Reference (Units ) Status CMV IgG 07/15/2024 14:53:29 Negative Negative Final Performing Location LABORATORY [facility] - [address] [facility] [address] [facility] [address]
--- OUTSIDE RECORDS SUMMARY | 2024-08-21 00:20 | External Medical Summary ---
Author Name Unknown Address Unknown Organization K01:LABORATORY [facility] - [address] [place] [address] Laboratory Report Ordering Provider Test Date Status MELISA MONTGOMERY 07/15/2024 14:53:29 Final Observation Date Value Abnormality Reference (Units ) Status TSH 07/15/2024 14:53:29 1.26 0.27-4.20 (uIU/mL) Final Performing Location [facility]ORY [facility] - [address] [place] [address]
--- OUTSIDE RECORDS SUMMARY | 2024-08-21 00:20 | External Medical Summary ---
Author Name Unknown Address Unknown Organization K01:[facility] [address] [place] [address] Laboratory Report Ordering Provider Test Date Status MELISA MONTGOMERY 07/15/2024 14:53:29 Final Observation Date Value Abnormality Reference (Units ) Status Magnesium 07/15/2024 14:53:29 2.5 1.5-2.6 (m g/dL) Final Performing Location [facility] - [address] [place] [address]
--- OUTSIDE RECORDS SUMMARY | 2024-08-21 00:20 | External Medical Summary | Summary of Care ---
Author Name Unknown Organization [facility] Address [address] [facility] [place] [address] Phone [phone] Care Team Providers Care Health Tech Name Role Phone Jolynn Rina Raul NEW Primary Care Provider [phone] Encounter Details Date Type Department Care Team (Late st Contact Info) Description 07/11/2024 Orders Only Gastroenterology, [place] [address] [place] [address] Sari Holder MD [address] [place] [address] Alcoholic cirrhosis of liver with ascites (HCC) Allergies Active Allergy Reactions Criticality Noted Date Comments Penicillins Unknown 08/09/2023 documented as of this encounter (statuses as of 07/11/2024) Medications Midodrine HCl 5 MG Oral Tablet [...] at bedtime. 30 Tablet 5 06/11/2024 Active documented as of this encounter (statuses as of 07/11/2024) Active Problems Problem Noted Date Diagnosed Date [...] as of this encounter (statuses as of 07/11/2024) Resolved Problems Problem Noted Date Diagnosed Date Resolved Date Upper GI bleed 05/09/2024 05/12/2024 documented as of this encounter (statuses as of 07/11/2024) Immunizations Name Administration Dates Next Due Seasonal [...] 10:00 AM EST Office Visit Transplant Clinic, [place] [address] [place], [place] [id number] Raimundo Ortega MD [address] [place], [place] [address] Rodrick Bernal MD [address] [place], [place] [phone] Nurse Marquita Ren[facility] [address] [place], [place] [phone] Mariela Goetz, PRODUCTION SOLDERER [address] [place], [place] [phone] 07/15/2024 2:30 PM EST Laboratory Outpatient Laboratory, [place] [address] [place] [address] [place], [facility] [address] [place], [place] [id number] 08/27/2024 10:20 AM EST Office Visit Hepatology, [facility] [address] [facility] [place] [address] Sari Holder MD [address] [place] [address] [place] [address] 01/13/2025 1:45 PM EDT Imaging Radiology [facility] [address] [facility] [place] [address] Health Maintenance Due Date Last Done Comments DISCUSS TOBACCO CESSATION (REFER TO SMARTSET #2397) 1970 Pneumococcal Vaccine: Pediatrics (0 to 5 [...] 2022 COVID-19 Vaccine ( season) 2024 GFR 11/27/2024 05/29/2024, 04/30, 05/11/2024, [...] this encounter Medical Devices Implanted Type Area Architecture Professor Device Identifier Shelf Expiration Date Model / Serial / Lot Pod Packing Coil Jsoft 45cm - [id number] Implanted:Qty: 1 on 05/10/2024 at [facility] [employer] [id number] 09/30/2031 RBY [id number] / / [id number] Azur Detachable 018 7mmx 24cm - [id number] Implanted:Qty: 1 on 05/10/2024 at [facility] [employer] [id number] 08/30/2028 [id number] / / [id number] Pod Packing Coil Jsoft 45cm - [id number] Implanted:Qty: 1 on 05/10/2024 at [facility] [employer] [id number] 12/26/2031 RBY [id number] / / [id number] Coil Radha Soft [id number] - [id number] Implanted:Qty: 1 on 05/10/2024 at [facility] [employer] [id number] 10/07/2031 RBY [id number] / / [id number] documented as of this encounter Procedures Procedure Name Priority Date/Time Associated Diagnosis Comments US ABDOMINAL PARACENTESIS Routine 07/10/2024 Alcoholic cirrhosis of liver with ascites (HCC) documented in this encounter Results * US ABDOMINAL PARACENTESIS (07/10/2024) Anatomical Region Laterality Modality Abdomen, Body Other 07/10/2024 us Sari Holder MD RAD ULTRASOUND Final Result documented in this encounter Visit Diagnoses Diagnosis [...] Care Agent (per Health Care Power of Project Intern document) Care Teams Health Tech Relationship Specialty Start Date End Date JolynnOctober SHAQ Carter [address] [place] [address] PCP - General Physician Bobbin Hauler 04/10/24 documented as of this encounter
--- OUTSIDE RECORDS SUMMARY | 2024-08-21 00:20 | External Medical Summary ---
Author Name Unknown Address Unknown Organization K01[facility] [place] [address] [facility] [address] [facility] [address] Laboratory Report Ordering Provider Test Date Status MELISA MONTGOMERY 07/15/2024 14:53:29 Final Observation Date Value Abnormality Reference (Units ) Status Color of Urine by Auto 07/15/2024 14:53:29 Light Yellow Colorless, Light Yellow, Yellow, Dark Yellow Final Clarity, Urine 07/15/2024 14:53:29 Clear Clear Final Glucose [Mass/volume] in Urine by Automated test strip 07/15/2024 14:53:29 Negative Negative (mg/dL) Final Bilirubin.total [Presence] in Urine by Automated test strip 07/15/2024 14:53:29 Negative Negative Final Ketones [Mass/volume] in Urine by Automated test strip 07/15/2024 14:53:29 Negative Negative (mg/dL) Final Specific gravity, Urine 07/15/2024 14:53:29 1.012 1.003-1.030 Final Hemoglobin [Presence] in Urine by Automated test strip 07/15/2024 14:53:29 Negative Negative Final pH, Urine 07/15/2024 14:53:29 6.0 5.0-7.5 (Units) Final Protein [Mass/volume] in Urine by Automated test strip 07/15/2024 14:53:29 Negative Negative (mg/dL) Final Urobilinogen [Mass/volume] in Urine by Automated test strip 07/15/2024 14:53:29 Normal Normal (mg/dL) Final Nitrite [Presence] in Urine by Automated test strip 07/15/2024 14:53:29 Negative Negative Final Leukocyte esterase [Presence] in Urine by Automated test strip 07/15/2024 14:53:29 Negative Negative Final Annotation Comment 07/15/2024 14:53:29 Final Screen negative - Microscopi c not performed. Performing Location [facility] - [address] [facility] [address]
--- OUTSIDE RECORDS SUMMARY | 2024-08-21 00:20 | External Medical Summary ---
Author Name Unknown Address Unknown Organization K01:[facility] [address] [place] [address] Laboratory Report Ordering Provider Test Date Status MELISA MONTGOMERY 07/15/2024 14:53:29 Final Observation Date Value Abnormality Reference (Units ) Status Phosphate 07/15/2024 14:53:29 4.2 2.5-4.8 (m g/dL) Final Performing Location [facility] - [address] [place] [address]
--- OUTSIDE RECORDS SUMMARY | 2024-08-21 00:20 | External Medical Summary ---
Author Name Unknown Address Unknown Organization K01:[facility] [place] [address] [facility] [place] [address] Laboratory Report Ordering Provider Test Date Status MELISA MONTGOMERY 07/15/2024 14:53:29 Final Observation Date Value Abnormality Reference (Units ) Status Hepatitis B virus core Ab [Presence] in Serum 07/15/2024 14:53:29 Negative Negative Final Performing Location [facility] [place] [place] [address] [place] [address]
--- OUTSIDE RECORDS SUMMARY | 2024-08-21 00:21 | External Medical Summary | Summary of Care ---
Author Name Unknown Organization [facility] Address [address] [place] [address] Phone [phone] Care Team Providers Care Plumbing Inspector Name Role Phone Jolynn Rina Carter PA-C Primary Care Provider [phone] Reason for Visit * Reason Onset Date Comments Order Request 06/20/2024 Encounter Details Date Type Department Care Team (Late st Contact Info) Description 06/20/2024 Telephone Gastroenterology, [address] [address] Sari Holder MD [address] [place] [address] Order Request Allergies Active Allergy Reactions Criticality Noted Date [...] encounter Miscellaneous Notes * Telephone Encounter - Sari Holder MD - 06/20/2024 3:12 PM ESTPending Prescriptions: Disp Refills Albumin Human 25 % Intravenous Solution 50 mL 0 Sig: Administer 50 mL intravenously once for 1 dose. * Telephone Encounter - Tanja Szymanski CMA - 06/20/2024 2:27 PM ESTPending Prescriptions: Disp Refills Albumin Human 25 % Intravenous Solution 50 mL 0 Sig: Administer 50 mL intravenously once for 1 dose. * Telephone Encounter - Tanja Szymanski CMA - 06/20/2024 2:04 PM EST US Guided Paracentesis Order yes Diagnostic ONLY? NO Fluid removal amount addressed? yes Albumin orders printed/rate addressed?yes Coags ordered?no (Please check that they were not drawn at DOS) Is patient on blood thinners?no If yes- nursing please address prior to forwarding to scheduling Is patient Diabetic?no If yes, please remind patient they will be NPO 4 hours prior to paracentesisand may need to consult with who manages their diabetic medications Patient scheduling preferences: [facility] documented in this encounter Plan of Treatment Upcoming Encounters Date Type Department Care Team (Late st Contact Info) Description 08/27/2024 10:20 AM EST Office Visit Hepatology, [facility] [address] [facility] [place] [address] Sari Holder MD [address] [place] [address] [place] [address] 01/13/2025 1:45 PM EDT Imaging Radiology [facility] [address] [facility] [place] [address] 01/16/2025 3:00 PM EDT Office Visit Urology, [facility] [address] [place] [address] Brianna Segovia PA-C [address] [place], [place] [phone] Scheduled Orders Name Type Priority Associated Diagnoses Order Schedule US ABDOMINAL PARACENTESIS Medical Imaging Routine Alcoholic cirrhosis of liver with ascites (HCC) Every Week for 24 Occurrences starting 06/21/2024 until 12/18/2024 Health Maintenance Due Date Last Done Comments DISCUSS TOBACCO CESSATION (REFER TO SMARTSET #6380) 1970 Pneumococcal Vaccine: Pediatrics (0 to 5 [...] this encounter Medical Devices Implanted Type Area Joint Supervisor Device Identifier Shelf Expiration Date Model / Serial / Lot Pod Packing Coil Jsoft 45cm - [id number] Implanted:Qty: 1 on 05/10/[address] [facility] [employer] [id number] 09/30/2031 RBY [id number] / / [id number] Azur Detachable 018 7mmx 24cm - [id number] Implanted:Qty: 1 on 05/10/[address] [facility] [employer] [id number] 08/30/2028 [id number] / / [id number] Pod Packing Coil Jsoft 45cm - [id number] Implanted:Qty: 1 on 05/10/[address] [facility] [employer] [id number] 12/26/2031 RBY [id number] / / [id number] Coil Radha Soft [id number] - [id number] Implanted:Qty: 1 on 05/10/[address] [facility] [employer] [id number] 10/07/2031 RBY [id number] / / [id number] documented as of this encounter Visit Diagnoses [...] Care Agent (per Health Care Power of Instructor Of Nursing document) Care Teams Plumbing Inspector Relationship Specialty Start Date End Date JolynnOctober SHAQ Carter [address] [facility] [place] [address] PCP - General Physician Residential Appraiser 04/10/24 documented as of this encounter
--- OUTSIDE RECORDS SUMMARY | 2024-08-21 00:21 | External Medical Summary | Summary of Care ---
Author Name Unknown Organization [facility] Address [address] [facility] [place] [place] [address] Phone [phone] Care Team Providers Care Safety Leader Name Role Phone Rina Neil PA-C Primary Care Provider Reason for Visit * Reason Comments Emergency Department Follow-Up Abdominal ascites Encounter Details Date Type Department Care Team (Latest Contact Info) Description 05/29/2024 12:40 PM EDT Office Visit [facility] [address] [place] [address] Rina Neil PA-C [address] [facility] [place] [address] Ascites due to alcoholic cirrhosis (HCC)*; Secondary esophageal varices with bleeding (HCC); Alcohol dependence, in remission (HCC); Kidney disease, chronic, stage IV (GFR 15-29 ml/min) (HCC); Thrombocytopenia, congenital and hereditary (HCC); Screening for cardiovascular condition; Muscle cramping Allergies Active Allergy Reactions Criticality Noted Date Comments Penicillins Unknown 08/09/2023 documented as of this encounter (statuses as of 05/29/2024) Medications Medication Sig Dispensed Refills Start Date [...] for Itching. 40 Tablet 2 05/29/2024 Active Mag64 64 MG Oral Tablet Delayed Release Take 1 Tablet by mouth in the morning and 1 Tablet before bedtime. 03/06/2024 05/29/2024 Discontinued (Patient preference/d iscontinuati on) Hospital, Clinic, or Other Facility Administered Medication Ordered Dose Route Frequency Start Date End Date Status albumin, human 25 % inj 25 gIndications:Other cirrhosis of liver (HCC),Other ascites 25 g IV QWEEK 05/30/2024 06/05/2024 Activ e documented as of this encounter (statuses as of 05/29/2024) Active Problems Problem Noted Date Diagnosed Date [...] as of this encounter (statuses as of 05/29/2024) Resolved Problems Problem Noted Date Diagnosed Date Resolved Date Upper GI bleed 05/09/2024 05/12/2024 documented as of this encounter (statuses as of 05/29/2024) Immunizations Name Administration Dates Next Due Seasonal Influenza, Trivalent, (IIV3), PF, (Fluz one) 04/03/2024 documented as of this encounter Social History Tobacco Use Types Packs/Day Years Used Date Smoking Tobacco: Every Day Cigarettes 1 33.8 Started: 1990 Smokeless Tobacco: Never Tobacco Cessation:Ready to Q uit: No; Counseling Given: No Alcohol Use Standard Drinks/Week Comments Not Currently [...] Sign Reading Time Taken Comments Blood Pressure 124/78 05/29/2024 12:57 PM EDT Pulse 76 05/29/2024 12:57 PM EDT Temperature 36.9 C (98.4 F) 05/29/2024 12:57 PM E DT Respiratory Rate 16 05/29/2024 12:57 PM EDT Oxygen Saturation - - Inhaled Oxygen Concentration - - Weight 91.9 kg (202 lb 8 oz) 05/29/2024 12:57 PM EDT Height - - Body Mass Index 30.79 05/09/2024 7:00 PM EDT documented in this encounter Functional Status Functional Status Response Date of Assess ment Are you deaf or do you have serious difficulty h earing? No 05/09/2024 Are you blind or do you have serious difficulty seeing, even when wearing glasses? No 05/09/2024 Do you have serious difficul ty walking or climbing stairs? (5 years old or older) No 05/09/2024 Do you have difficulty dress ing or bathing? (5 years old or older) No 05/09/2024 Because of a physical, menta l, or emotional condition, do you have difficulty doing errands alone such as visiting a doctor s office or shopping? (15 years old or older) No 05/09/20 24 Cognitive Status Response Date of Assessm ent Because of a physical, menta l, or emotional condition, do you have serious difficulty concentrating, remembering, or making decisions? (5 years old or older) No 05/09/2024 documented as of this encounter Progress Notes * Rina Neil PA-C - 05/29/2024 1:10 PM EDT Images from the original note were not included. History of Present Illness Santiago Amador is a 53 year old male that presents for Emergency Department Follow-Up (Abdominal ascites ) Patient is a 53 year old male who presents for a follow up after an ER visit. He went due to increased ascities. Was at the local ERj on 05/20 and had 4 L of fluid removed. Thinks he was 191 last week. Denies chest pain, palpitations, edema, headaches, dizzy Some sob Appetite good Sleep fair; notes some itching Urination/ bowel movements good Physical Exam Vitals: 05/29/24 1257 Temp: 36.9 C (98.4 F) Pulse: 76 Resp: 16 BP: 124/78 BP Readings from Last 3 Encounters: 05/29/24 124/78 05/12/24 123/87 04/05/24 130/69 Wt Readings from Last 3 Encounters: 05/29/24 91.9 kg (202 lb 8 oz) 05/11/24 82 kg (180 lb 12.4 oz) 04/05/24 103.1 kg (227 lb 6.4 oz) General: alert, healthy, no distress, well nourished, well developed, and cooperative Head: Normocephalic, No masses, lesions, tenderness or [...] normal, lungs clear to auscultation Abdomen: non-tender, normal bowel sounds, no masses or organomegaly, no rebound or guarding, no CVAtenderness, no bladder distention identified, ascites, and abdomen firm and distended Extremities: less than 2 second capillary refill, no joint deformities, effusion, or inflammation, no edema, no skin discoloration, no clubbing, no cyanosis Neuro Exam: alert & oriented x 3 with fluent speech, no focal motor/sensory deficits, gait normal I have reviewed the following results: BMP Assessment and Plan Ascites due to alcoholic cirrhosis (HCC) (Primary) Secondary esophageal varices with bleeding (HCC) Alcohol dependence, in remission (HCC) Kidney disease, chronic, stage IV (GFR 15-29 ml/min) (HCC) Thrombocytopenia, congenital and hereditary (HCC) Screening for cardiovascular condition - LIPID PANEL WITH DIRECT LDL IF TG IS HIGH; Future; Expected date: 05/29/2024 Muscle cramping - BASIC METABOLIC PANEL; Future; Expected date: 05/29/2024 - MAGNESIUM; Future; Expected date: 05/29/2024 Other orders - hydrOXYzine HCl 10 MG Oral Tablet (Atarax); Take 1 Tablet by mouth every 6 hours as needed for Itching. Reinforced need to be consistent with taking his medications. Wrap-Up Time: I spent a total of 30-39 minutes (exact time 35 mins) on the date of service in preparation, delivery, and documentation of the care provided to Santiago Amador excluding any time spent in the performance of separately billed services. documented in this encounter Nursing Notes * Rashel Jose RN - 05/29/2024 12:59 PM EDT Chief Complaint Patient presents with Emergency Department Follow-Up Abdominal ascites documented in this encounter Plan of Treatment Upcoming Encounters Date Type Department Care Team (Late st Contact Info) Description 07/03/2024 10:00 AM EST Office Visit [facility] [address] [facility] [place] [address] Rina Neil PA-C [address] [facility] [place] [address] 08/27/2024 10:20 AM EST Office Visit Hepatology, [facility] [address] [facility] [place] [address] Sari Holder MD [address] [place] [address] [place] [address] 01/13/2025 1:45 PM EDT Imaging Radiology [facility] [address] [facility] [place] [address] 01/16/2025 3:00 PM EDT Office Visit Urology, [place] [address] [place] [address] Brianna Segovia PA-C [address] [place] [address] Pending Results Name Type Priority Associated Diagnoses Date /Time LIPID PANEL WITH DIRECT LDL IF TG IS HIGH Lab Routine Screening for cardiovascular condition 05/29/2024 1:32 PM EDT BASIC METABOLIC PANEL Lab Routine Muscle cramping 05/29/2024 1:32 PM EDT Scheduled Orders Name Type Priority Associated Diagnoses Orde r Schedule LIPID PANEL WITH DIRECT LDL IF TG IS HIGH Lab Routine Screening for cardiovascular condition Expected: 05/29/2024 (Approximate), Expires: 05/29/2025 BASIC METABOLIC PANEL Lab Routine Muscle cramping Expected: 05/29/2024 (Approximate), Expires: 05/29/2025 Health Maintenance Due Date Last Done Comments DISCUSS TOBACCO CESSATION (REFER TO SMARTSET #3371) 1970 Lipid Panel 1970 Pneumococcal Vaccine: Pediatrics [...] COVID-19 Vaccine ( - season) 2024 GFR 11/10/2024 05/12/2024, 04/30, 05/10/2024, Additional history exists O2 ASSESSMENT COMPLETED IN PAST YEAR FOR COPD 05/10/2025 05/10/2024 Hgb 05/12/2025 05/12/2024, 04/30, 05/11/2024, Additional history exists Phosphate 05/12/2025 05/12/2024, 04/30, 05/10/2024, Additional history exists Diabetes Screening 05/12/2027 05/12/2024, 1 , 05/10/2024, Additional history exists Influenza Vaccine (FLU shot) Completed 04/03/2024 HPV (Gardasil) Vaccine Aged Out No lo nger eligible based on patient's age to complete this topic MENINGOCOCCAL (MENACTRA/MENVEO) Aged Out No longer eligible based on patient's age to complete this topic documented as of this encounter Medical Devices Implanted Type Area V Belt Builder Device Identifier Shelf Expiration Date Model / Serial / Lot Pod Packing Coil Jsoft 45cm - [id number] Implanted:Qty: 1 on 05/10/2024 at [facility] [id number] 09/30/2031 RBYP [id number] / / [id number] Azur Detachable 018 7mmx 24cm - [id number] Implanted:Qty: 1 on 05/10/2024 at [facility] [id number] 08/30/2028 [id number] / / [id number] Pod Packing Coil Jsoft 45cm - [id number] Implanted:Qty: 1 on 05/10/2024 at [facility] [employer] [id number] 12/26/2031 RBYP [id number] / / [id number] Coil Radha Soft [id number] - [id number] Implanted:Qty: 1 on 05/10/2024 at [facility] [employer] [id number] 10/07/2031 RBY4 [id number] / / [id number] documented as of this encounter Visit Diagnoses Diagnosis Ascites due to alcoholic cirrhosis (HCC)- Primary Secondary esophageal varices with bleeding (HCC) Esophageal varices with bleeding in diseases classified elsewhere Alcohol dependence, in remission (HCC) Kidney disease, chronic, stage IV (GFR 15-29 ml/min) (HCC) Chronic kidney disease, Stage IV (severe) Thrombocytopenia, 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
--- OUTSIDE RECORDS SUMMARY | 2024-08-21 00:21 | External Medical Summary | Summary of Care ---
Author Name Unknown Organization [facility] Address [address] [facility] [address] Phone [phone] Care Team Providers Care Tunnel Heading Inspector Name Role Phone Jolynn October SHAQ Primary Care Provider Encounter Details Date Type Department Care Team (Late st Contact Info) Description 06/19/2024 Result Scan Unspecified Department Sari Holder MD [address] [place] [address] <No scans attached> Allergies Active Allergy Reactions Criticality Noted Date Comments Penicillins Unknown 08/09/2023 documented as of this encounter (statuses as of 06/20/2024) Medications Midodrine HCl 5 MG Oral Tablet [...] as of this encounter (statuses as of 06/20/2024) Active Problems Problem Noted Date Diagnosed Date [...] as of this encounter (statuses as of 06/20/2024) Resolved Problems Problem Noted Date Diagnosed Date Resolved Date Upper GI bleed 05/09/2024 05/12/2024 documented as of this encounter (statuses as of 06/20/2024) Immunizations Name Administration Dates Next Due Seasonal [...] of Assessment Author No 05/09/2024 7:00 PM Jay Long RN * Are you blind or [...] Keisha Long RN documented in this encounter Plan of Treatment Upcoming Encounters Date Type Department Care Team (Late st Contact Info) Description 08/27/2024 10:20 AM EST Office Visit Hepatology, [facility] [address] [facility] [place] [address] Sari Holder MD [address] [place] [address] 01/13/2025 1:45 PM EDT Imaging Radiology [facility] [address] [place] [address] 01/16/2025 3:00 PM EDT Office Visit Urology, [place] [address] [place] [address] Brianna Segovia PA-C [address] [place] [address] Health Maintenance Due Date Last Done Comments DISCUSS TOBACCO CESSATION (REFER TO SMARTSET #2378) 1972 Pneumococcal Vaccine: Pediatrics (0 to 5 [...] this encounter Medical Devices Implanted Type Area Camera Systems Engineer Device Identifier Shelf Expiration Date Model / Serial / Lot Pod Packing Coil Jsoft 45cm - [id number] Implanted:Qty: 1 on 05/10/2024 at [facility] [employer] [id number] 09/30/2031 RBY PODJ45 / / [id number] Azur Detachable 018 7mmx 24cm - [id number] Implanted:Qty: 1 on 05/10/2024 at [facility] [employer] [id number] 08/30/2028 [id number] / / [id number] Pod Packing Coil Jsoft 45cm - [id number] Implanted:Qty: 1 on [facility]/10/2024 at [facility] [employer] [id number] 12/26/2031 RBY [id number] / / [id number] Coil Radha Soft [id number] - [id number] Implanted:Qty: 1 on 05/10/2024 at [facility] [employer] [id number] 10/07/2031 RBY [id number] / / [id number] documented as of this encounter Procedures Procedure Name Priority Date/Time Associated Diagnosis Comments RADIOLOGY SCANNED RESULT 06/19/2024 documented in this encounter Results * RADIOLOGY SCANNED RESULT (06/19/2024) 06/19/2024 us Sari Holder MD DIAGNOSTIC RADIOLOGY SERVICES [...] Care Agent (per Health Care Power of [place] document) Care Teams Tunnel Heading Inspector Relationship Specialty Start Date End Date JolynnOctober SHAQ Carter [address] [place] [address] PCP - General Physician Roofing Superintendent 04/10/24 documented as of this encounter
--- OUTSIDE RECORDS SUMMARY | 2024-08-21 00:21 | External Medical Summary ---
Author Name Unknown Address Unknown Organization K09:[facility] [place] [address] Laboratory Report Ordering Provider Test Date Status 05/29/2024 13:32:56 Final Observation Date Value Abnormality Reference (Units ) Status Magnesium 05/29/2024 13:32:56 2.1 1.5-2.6 (m g/dL) Final Performing Location [facility] [place] [address]
--- OUTSIDE RECORDS SUMMARY | 2024-08-21 00:21 | External Medical Summary | Summary of Care ---
Author Name Unknown Organization [facility] Address [address] [facility] [place] [address] Phone [phone] Care Team Providers Care Erecting Crane Operator Name Role Phone Rina Neil PA-C Primary Care Provider [phone] Reason for Visit * Reason Comments Outpatient Testing Encounter Details Date Type Department Care Team (Late st Contact Info) Description 05/29/2024 1:30 PM EDT Laboratory Laboratory [facility] [place]a [place] [address] [place] [id number] [facility] [address] [place] [address] Hypomagnesemia; Screening for cardiovascular condition; Muscle cramping Allergies [...] for Itching. 40 Tablet 2 05/29/2024 Active Hospital, Clinic, or Other Facility Administered Medication [...] documented as of this encounter Functional Status Functional Status Response [...] (15 years old or older) No 05/09/20 Cognitive Status Response Date of Assessm ent Because of a physical, menta l, or emotional condition, do you have serious difficulty concentrating, remembering, or making decisions? (5 years old or older) No 05/09/2024 documented as of this encounter Plan of Treatment Upcoming Encounters Date Type Department Care Team (Late st Contact Info) Description 07/03/2024 10:00 AM EST [facility] [address] [place] [address] Rina Neil PA-C [address] [place] [address] 08/27/2024 10:20 AM EST Office Visit Hepatology, [facility] [address] [phone] Sari Holder MD 310 [facility] [place] [address] 01/13/2025 1:45 PM EDT Imaging Radiology [facility] [address] [place] [address] 01/16/2025 3:00 PM EDT Office Visit Urology, [place] [address] [place] [address] Brianna Segovia PA-C [address] [place] [address] Pending Results Name Type Priority Associated Diagnoses Date /Time MAGNESIUM Lab Routine Hypomagnesemia 05/29/2024 1:32 PM EDT LIPID PANEL WITH DIRECT LDL IF TG IS HIGH Lab Routine Screening for cardiovascular condition 05/29/2024 1:32 PM EDT BASIC METABOLIC PANEL Lab Routine Muscle cramping 05/29/2024 1:32 PM EDT Health Maintenance Due Date Last Done Comments DISCUSS TOBACCO CESSATION (REFER TO SMARTSET #2592) 1970 Lipid Panel 1970 Pneumococcal Vaccine: Pediatrics [...] 2022 COVID-19 Vaccine ( season) 2024 GFR 11/10/2024 05/12/2024, 04/30, 05/10/2024, [...] this encounter Medical Devices Implanted Type Area Senior Electronics Design Engineer Device Identifier Shelf Expiration Date Model / Serial / Lot Pod Packing Coil Jsoft 45cm - [id number] Implanted:Qty: 1 on 05/10/[address] [facility] [employer] [id number] 09/30/2031 RBYP ODJ45 / / [id number] Azur Detachable 018 7mmx 24cm - [id number] Implanted:Qty: 1 on 05/10/[address] [facility] [employer] [id number] 08/30/2028 [id number] / / [id number] Pod Packing Coil Jsoft 45cm - [id number] Implanted:Qty: 1 on 05/10/[address] [facility] [employer] [id number] 12/26/2031 RBYP ODJ45 / / [id number] Coil Radha Soft [id number] - [id number] Implanted:Qty: 1 on 05/10/[address] [facility] KHADIJAH RODRIGEZ [id number] 10/07/2031 RBY4 [id number] / / [id number] documented as of this encounter Visit Diagnoses Diagnosis Hypomagnesemia Disorders of magnesium metabolism Screening for cardiovascular condition Screening for other [...] Care Agent (per Health Care Power of Analytics Consultant document) Care Teams Erecting Crane Operator Relationship Specialty Start Date End Date Mary Jooctober SHAQ Carter [address] [place] [address] PCP - General Physician Joist Setter 04/10/24 documented as of this encounter
--- OUTSIDE RECORDS SUMMARY | 2024-08-21 00:21 | External Medical Summary | Summary of Care ---
Author Name Unknown Organization [facility] Address [address] [place] [address] Phone [phone] Care Team Providers Care Ship Carpenter Name Role Phone Jolynn Rina Carter PA-C Primary Care Provider [phone] Reason for Visit * Reason Onset Date Comments Order Request 06/20/2024 Encounter Details Date Type Department Care Team (Late st Contact Info) Description 06/20/2024 Telephone Gastroenterology, [address] [address] Sair Holder MD [address] [place] [address] Order Request Allergies Active Allergy Reactions [...] 08/27/2024 10:20 AM EST Office Visit Hepatology, [facility] [address] [facility] [place] [address] Sari Holder MD [address] [place] [address] [place] [address] 01/13/2025 1:45 PM EDT Imaging Radiology [facility] [address] [facility] [place] [address] 01/16/2025 3:00 PM EDT Office Visit Urology, [place] [address] [place] [address] Brianna Segovia PA-C [address] [place], [place] [phone] Scheduled Orders Name Type Priority Associated Diagnoses Order Schedule US ABDOMINAL PARACENTESIS Medical Imaging Routine Alcoholic cirrhosis of liver with ascites (HCC) Every Week for 24 Occurrences starting 06/21/2024 until 12/18/2024 Health Maintenance Due Date Last Done Comments DISCUSS TOBACCO CESSATION (REFER TO SMARTSET #1661) 1970 Pneumococcal Vaccine: Pediatrics (0 to 5 [...] this encounter Medical Devices Implanted Type Area Loan Administrator Device Identifier Shelf Expiration Date Model / Serial / Lot Pod Packing Coil Jsoft 45cm - [id number] Implanted:Qty: 1 on 05/10/2024 at [facility] Hum [id number] 09/30/2031 RBY PODJ45 / / [id number] Azur Detachable 018 7mmx 24cm - [id number] Implanted:Qty: 1 on 05/10/2024 at [facility] [employer] [id number] 08/30/2028 [id number] / / [id number] Pod Packing Coil Jsoft 45cm - [id number] Implanted:Qty: 1 on 05/10/2024 at [facility] Hum [id number] 12/26/2031 RBY PODJ45 / / [id number] Coil Radha Soft [id number] - [id number] Implanted:Qty: 1 on 05/10/2024 at [facility] Hum [id number] 10/07/2031 RBY [id number] / / [id number] documented as of this encounter Visit Diagnoses [...] Care Agent (per Health Care Power of Processing Mgr document) Care Teams Ship Carpenter Relationship Specialty Start Date End Date JolynnOctober SHAQ Carter [address] [facility] [place] [address] PCP - General Physician Custom Feed Mill Operator 04/10/24 documented as of this encounter
--- OUTSIDE RECORDS SUMMARY | 2024-08-21 00:21 | External Medical Summary ---
Author Name Unknown Address Unknown Organization K09:[place] [address] Laboratory Report Ordering Provider Test Date Status 05/29/2024 13:32:56 Final Observation Date Value Abnormality Reference (Units ) Status BUN 05/29/2024 13:32:56 54 Above high normal 6-20 (mg/dL) Final Creatinine 05/29/2024 13:32:56 2.3 Above high normal 0.6-1.2 (mg/dL) Final Glomerular filtration rate/1.73 sq M.predicted [Volume Rate/Area] in Serum, Plasma or Blood by Creatinine-based formula (CKD-EPI) 05/29/2024 13:32:56 33 Below low normal >=60 (mL/min) Final eGFR is calculated based on the CKD-EPI 2020 equation. Sodium 05/29/2024 13:32:56 126 Below low normal 135 -146 (mmol/L) Final Potassium 05/29/2024 13:32:56 5.0 3.5-5.1 (m mol/L) Final Cl 05/29/2024 13:32:56 93 Below low normal 98- 107 (mmol/L) Final CO2 05/29/2024 13:32:56 22 22-32 (mmo l/L) Final Anion gap 05/29/2024 13:32:56 11 7-15 (mmol /L) Final Glucose 05/29/2024 13:32:56 105 70-120 (mg /dL) Final Calcium 05/29/2024 13:32:56 8.6 8.4-10.2 ( mg/dL) Final Performing Location [place] [address]
--- OUTSIDE RECORDS SUMMARY | 2024-08-21 00:21 | External Medical Summary | Summary of Care ---
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 40 Tablet 2 05/29/2024 Active documented as of this encounter (statuses as of 06/06/2024) Active Problems Problem Noted Date Diagnosed Date [...] as of this encounter (statuses as of 06/06/2024) Resolved Problems Problem Noted Date Diagnosed Date Resolved Date Upper GI bleed 05/09/2024 05/12/2024 documented as of this encounter (statuses as of 06/06/2024) Immunizations Name Administration Dates Next Due Seasonal [...] 10:00 AM EST Office Visit Family Practice [place] [address] [place] [address] Rina Neil PA-C [address] [place] [address] 08/27/2024 10:20 AM EST Office Visit Hepatology, [facility] 132 [place] [address] Sari Holder MD [address] [place] [address] 01/13/2025 1:45 PM EDT Imaging Radiology [facility] 132 [place] [address] 01/16/2025 3:00 PM EDT Office Visit Urology, [place] [address] [place] [address] Brianna Segovia PA-C [address] [place] [address] Health Maintenance Due Date Last Done Comments DISCUSS TOBACCO CESSATION (REFER TO SMARTSET #4290) 1970 Pneumococcal Vaccine: Pediatrics (0 to 5 [...] this encounter Medical Devices Implanted Type Area Mailing Section Clerk Device Identifier Shelf Expiration Date Model / Serial / Lot Pod Packing Coil Jsoft 45cm - [id number] Im[facility]ed:[facility] [id number] 09/30/2031 RBYP ODJ45 / / [id number] Azur Detachable 018 7mmx 24cm - [id number] Implanted:Qty: 1 on 05/10/2024 at [facility] [employer] MARY [id number] 08/30/2028 [id number] / / [id number] Pod Packing Coil Jsoft 45cm - [id number] Implanted:Qty: 1 [facility] [facility] [id number] 12/26/2031 RBYP ODJ45 / / [id number] Coil Radha Soft [id number] - [id number] Implanted:Qty: 1 on 05/10/[address] 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) documented in this encounter Results * US ABDOMINAL PARACENTESIS (06/05/2024) Anatomical Region Laterality Modality Abdomen, Body Other 06/05/2024 Sari Holder MD RAD ULTRASOUND documented in this encounter Visit Diagnoses Diagnosis Other cirrhosis of liver (HCC) Other ascites Alcoholic cirrhosis of liver with ascites (HCC) Alcoholic cirrhosis of liver Ascites due to alcoholic cirrhosis (HCC) documented in this encounter Advance Directives * [...] Care Agent (per Health Care Power of Gizzard Peeler document) Care Teams Wall Man Relationship Specialty Start Date End Date Jolynn October SHAQ Carter 200 [facility] [place] [address] PCP - General Physician Room Service Manager 04/10/24 documented as of this encounter
--- OUTSIDE RECORDS SUMMARY | 2024-08-21 00:21 | External Medical Summary | Summary of Care ---
Author Name Unknown Organization [facility] Address [address] [place] [address] Phone [phone] Care Team Providers Care Metal Miner Blasting Name Role Phone Rina Neil PA-C Primary Care Provider [phone] Reason for Visit * Reason Onset Date Comments Medication Problem 06/21/2024 Encounter Details Date Type Department Care Team (Late st Contact Info) Description 06/21/2024 Telephone Gastroenterology, [address] [address] Sari Holder MD [address] [place] [address] Medication Problem Allergies Active Allergy Reactions Criticality Noted Date [...] encounter Miscellaneous Notes * Telephone Encounter - Yaima Zheng RN - 06/21/2024 10:[address] [facility] called. They received a rx for albumin in error and just wanted to notify nursing that it was sent to the wrong place. Looks like pt has a SCP from May 27 that is active. documented in this encounter Plan of Treatment Upcoming Encounters Date Type Department Care Team (Late st Contact Info) Description 08/27/2024 10:20 AM EST Office Visit [facility] [address] Sari Holder MD [address] [place] [address] 01/13/2025 1:45 PM EDT Imaging Radiology [facility] [address] [facility] [address] 01/16/2025 3:00 PM EDT Office Visit Urology, [place] [address] [place] [address] Brianna Segovia PA-C [address] [place] [address] Health Maintenance Due Date Last Done Comments DISCUSS TOBACCO CESSATION (REFER TO SMARTSET #7369) 1970 Pneumococcal Vaccine: Pediatrics (0 to 5 [...] this encounter Medical Devices Implanted Type Area Operations And Maintenance Supervisor Device Identifier Shelf Expiration Date Model / Serial / Lot Pod Packing Coil Jsoft 45cm - [id number] Implanted:Qty: 1 on 05/10/2024 at [facility] [employer] [facility] [employer] [id number] 09/30/2031 RBY PODJ45 / / [id number] Azur Detachable 018 7mmx 24cm - [id number] Implanted:Qty: 1 on [facility] [employer] [facility] Compliance 360 [id number] 08/30/2028 [id number] / / [id number] Pod Packing Coil Jsoft 45cm - [id number] Implanted:Qty: 1 on 05/10/2024 at [facility] [employer] [id number] 12/26/2031 RBY PODJ45 / / [id number] Coil Radha Soft [id number] - [id number] Implanted:Qty: 1 on 05/10/2024 at [facility] [employer] [id number] 10/07/2031 RBY [id number] / / [id number] documented as of this encounter Advance Directives [...] Care Agent (per Health Care Power of Can Piler document) Care Teams Metal Miner Blasting Relationship Specialty Start Date End Date Jolynn Rina SHAQ Carter [address] [facility] [place], [place] [address] PCP - General Physician Reverberatory Furnace Operator 04/10/24 documented as of this encounter
--- OUTSIDE RECORDS SUMMARY | 2024-08-21 00:21 | External Medical Summary ---
Author Name Unknown Address Unknown Organization K01:[facility] - [address] [facility] [place] [address] Laboratory Report Ordering Provider Test Date Status 05/29/2024 13:32:56 Final Observation Date Value Abnormality Reference (Units ) Status Triglyceride 05/29/2024 13:32:56 86 <=174 ( mg/dL) Final Triglyceride Reference Range s (mg/dL):
<150 Acceptable
150-174 Borderline high
175-499 High
>=500 Very high Cholesterol 05/29/2024 13:32:56 123 <200 (mg /dL) Final Total Cholesterol Reference Ranges (mg/dL):
<200 Desirable
200-239 Borderline high
>=240 High HDL 05/29/2024 13:32:56 40 >39 (mg/dL ) Final HDL Cholesterol Reference Ra nges (mg/dL):
>=60 High (Desirable)
<50 Low (Undesirable) For Females
<40 Low (Undesirable) For Males NON-HDL CHOLESTEROL 05/29/2024 13:32:56 83 <=159 (mg/dL) Final Non-HDL Cholesterol Referenc e Range (mg/dL):
<100 Target level for high risk ASCVD patient
<130 Optimal for general population
130-159 Near optimal for general population
160-189 Borderline High
190-219 High
>=220 Very High LDL, (calculated) 05/29/2024 13:32:56 66 <= 129 (mg/dL) Final LDL Cholesterol Reference Ra nges (mg/dL):
<70 Target level for high risk ASCVD patient
<100 Optimal for general population
100-129 Near optimal for general population
130-159 Borderline high
160-189 High
>=190 Very high Performing Location [facility] - [address] [facility] [address]
--- OUTSIDE RECORDS SUMMARY | 2024-08-21 00:21 | External Medical Summary | Summary of Care ---
Author Name Unknown Organization [facility] Address [address] [facility] [place] [address] Phone [phone] Care Team Providers Care Rubber Molder Name Role Phone Rina Neil PA-C Primary Care Provider [phone] Reason for Visit * Reason Onset Date Comments Advice 06/10/2024 Encounter Details Date Type Department Care Team (Late st Contact Info) Description 06/10/2024 Telephone Family Practice [facility] 200 [facility] [place] [address] Rina Neil PA-C [address] [facility] [place] [address] Advice Allergies Active Allergy Reactions Criticality Noted Date Comments Penicillins Unknown 08/09/2023 documented as of this encounter (statuses as of 06/11/2024) Medications Midodrine HCl 5 MG Oral Tablet [...] as of this encounter (statuses as of 06/11/2024) Active Problems Problem Noted Date Diagnosed Date [...] as of this encounter (statuses as of 06/11/2024) Resolved Problems Problem Noted Date Diagnosed Date Resolved Date Upper GI bleed 05/09/2024 05/12/2024 documented as of this encounter (statuses as of 06/11/2024) Immunizations Name Administration Dates Next Due Seasonal [...] Telephone Encounter - Pinky Dumas RN - 06/11/2024 3:17 PM EST Left message for pt that medication was sent in. * Telephone Encounter - Rina Neil PA-C - 06/11/2024 1:35 PM EST Medication sent. * Telephone Encounter - Alba Mathews LPN - 06/10/2024 10:42 AM EST Patient was last seen 05/29/24 for ER follow up. At that time he was prescribed hydroxyzine. Do notsee mention of sleep med being discussed. * Telephone Encounter - Татьяна Cordon OSA - 06/10/2024 9:13 AM EST Pt said that Rina gave him a med for itching, but it's not helping. He is wondering If something else can be called in he would very much like that. He also said that at their last appointment she had prescribed some sleep medication and he declined it. He has since changed his mind and would like that prescribed for him as long as it's not melatonin. His next appt is Dec. 4 but he does not want to wait that long for these concerns. Please advise patient. documented in this encounter Plan of Treatment Upcoming Encounters Date Type Department Care Team (Late st Contact Info) Description 07/03/2024 10:00 AM EST [facility] [place] [address] [place] [address] Rina Neil PA-C [address] [place] [address] 08/27/2024 10:20 AM EST Office Visit Hepatology, [facility] [address] [facility] [address] Sari Holder MD [address] [facility] [place] [address] 01/13/2025 1:45 PM EDT Imaging Radiology [facility] 132 [facility] [place] [address] 01/16/2025 3:00 PM EDT Office Visit Urology, [place] [address] [place] [address] Brianna Segovia PA-C [address] [place] [address] Health Maintenance Due Date Last Done Comments DISCUSS TOBACCO CESSATION (REFER TO SMARTSET #1940) 1970 Pneumococcal Vaccine: Pediatrics (0 to 5 [...] this encounter Medical Devices Implanted Type Area Physician Practice Administrator Device Identifier Shelf Expiration Date Model / Serial / Lot Pod Packing Coil Jsoft 45cm - [id number] Implanted:Qty: 1 on 05/10/2024 at [facility] [employer] [id number] 09/30/2031 RBY [id number] / / [id number] Azur Detachable 018 7mmx 24cm - [id number] Implanted:Qty: 1 on 05/10/2024 at [facility] [employer] [id number] 08/30/2028 [id number] / / [id number] Pod Packing Coil Jsoft 45cm - [id number] Implanted:Qty: 1 on 05/10/2024 at [facility] [employer] [id number] 12/26/2031 RBY PODJ45 / / [id number] Coil Radha Soft [id number] - [id number] Implanted:Qty: 1 on 05/10/2024 at [facility] [employer] [id number] 10/07/2031 RBY [id number] / / [id number] documented as of this encounter Advance Directives [...] Care Agent (per Health Care Power of Oracle Application Consultant document) Care Teams Rubber Molder Relationship Specialty Start Date End Date Mary Jooctober Raul, PARachidC [address] [place], [place] [address] PCP - General Physician Form Presser 04/10/24 documented as of this encounter
--- OUTSIDE RECORDS SUMMARY | 2024-08-21 00:21 | External Medical Summary | Summary of Care ---
Author Name Unknown Organization [facility] Address [address] [facility] [place] [address] Phone [phone] Care Team Providers Care Woodworker Helper Name Role Phone Rina Neil PA-C Primary Care Provider [phone] Reason for Visit * Reason Onset Date Comments No Show 05/30/2024 [facility] No Show Auto mation Encounter Details Date Type Department Care Team (Late st Contact Info) Description 05/30/2024 Telephone Family Practice [facility] 200 [facility] [place] [address] iRna Neil PA-C [address] [facility] [place] [address] No Show ([facility] No Show Automation) Allergies Active Allergy Reactions Criticality Noted Date Comments Penicillins Unknown 08/09/2023 documented as of this encounter (statuses as of 05/30/2024) Medications Medication Sig Dispensed Refills Start Date [...] as of this encounter (statuses as of 05/30/2024) Active Problems Problem Noted Date Diagnosed Date [...] as of this encounter (statuses as of 05/30/2024) Resolved Problems Problem Noted Date Diagnosed Date Resolved Date Upper GI bleed 05/09/2024 05/12/2024 documented as of this encounter (statuses as of 05/30/2024) Immunizations Name Administration Dates Next Due Seasonal [...] No 05/09/2024 documented as of this encounter Miscellaneous Notes * Telephone Encounter - Iakvng, No Show - 05/30/2024 5:35 AM EDT Dear Santiago Amador, Looks like you missed an appointment with RINA Carter THEODORE on 05/27/2024 at 12:00 PM. If you haven't already rescheduled, you have a couple of options: Reschedule in Paperlinkshart Twenga.Tidalwave Trader/Twenga/scheduling Call us at [phone] Can't make a future appointment? Cancel and let someone else have your spot! It's easy to do via [employer] or by calling us. Thanks for trusting [facility] with your care. We hope to see you back in our office soon. Sincerely, RINA Carter THEODORE documented in this encounter Plan of Treatment Upcoming Encounters Date Type Department Care Team (Late st Contact Info) Description 07/03/2024 10:00 AM EST Office Visit Family Practice [facility] 200 [facility] [place] [address] Rina Neil PA-C 200 [facility] [place] [address] 08/27/2024 10:20 AM EST Office Visit Hepatology, [facility] [address] [facility] [place] [address] Sari Holder MD [address] [place] [address] 01/13/2025 1:45 PM EDT Imaging Radiology [facility] [address] [facility] [place] [address] 01/16/2025 3:00 PM EDT Office Visit Urology, [place] [address] [facility] [address] Brianna Segovia PA-C [address] [facility] [place] [address] Health Maintenance Due Date Last Done Comments DISCUSS TOBACCO CESSATION (REFER TO SMARTSET #3291) 1970 Pneumococcal Vaccine: Pediatrics (0 to 5 [...] this encounter Medical Devices Implanted Type Area Jewelry Internship Device Identifier Shelf Expiration Date Model / Serial / Lot Pod Packing Coil Jsoft 45cm - [id number] Implanted:Qty: 1 on 05/10/2024 at [facility] [employer]AH RODRIGEZ [id number] 09/30/2031 RBYP ODJ45 / / [id number] Azur Detachable 018 7mmx 24cm - [id number] Implanted:Qty: 1 on 05/10/2024 at [facility] [employer] MARY [id number] 08/30/2028 [id number] / / [id number] Pod Packing Coil Jsoft 45cm - [id number] Implanted:Qty: 1 on 05/10/2024 at [facility] [employer] [id number] 12/26/2031 RBYP ODJ45 / / [id number] Coil Radha Soft [id number] - [id number] Implanted:Qty: 1 on 05/10/2024 at [facility] [employer] [id number] 10/07/2031 RBY4 C0835 / / [id number] documented as of this encounter Advance Directives [...] Care Agent (per Health Care Power of Commissary Steward document) Care Teams Woodworker Helper Relationship Specialty Start Date End Date TheodoreOctober SHAQ Carter [address] [place] [address] PCP - General Physician Senior Ux Developer 04/10/24 documented as of this encounter
--- OUTSIDE RECORDS SUMMARY | 2024-08-21 00:21 | External Medical Summary | Summary of Care ---
Author Name Unknown Organization [facility] Address [address] , [place] Care Team Providers Care Senior Qa Automation Engineer Name Role Phone Jolynn October SHAQ Primary Care Provider [phone] Reason for Visit * Reason Comments Nutritional Services Documentation Encounter Details Date Type Department Care Team (Late st Contact Info) Description 06/03/2024 11:30 AM EST Scheduled Telephone Nutrition Services, [address] [facility] [address] [place] [address] Manuela Nichole, RDN [address] [place] [address] Allergies Active Allergy Reactions Criticality Noted Date Comments Penicillins Unknown 08/09/2023 documented as of this encounter (statuses as of 06/03/2024) Medications Medication Sig Dispensed Refills Start Date [...] as of this encounter (statuses as of 06/03/2024) Active Problems Problem Noted Date Diagnosed Date [...] as of this encounter (statuses as of 06/03/2024) Resolved Problems Problem Noted Date Diagnosed Date Resolved Date Upper GI bleed 05/09/2024 05/12/2024 documented as of this encounter (statuses as of 06/03/2024) Immunizations Name Administration Dates Next Due Seasonal [...] encounter Miscellaneous Notes * Telephone Encounter - Manuela Nichole RDN - 06/03/2024 1:50 PM EST Patient assessed with severe malnutrition during recent inpatient stay. Patient contacted via telephone to discuss current nutritional risk. RDN discussed current nutritional status, outpatient nutritional goals, the importance of nutrition in improving health, and the availability of dietitian services as an outpatient. Patient declined services at this time. Patient sent "Take Charge of your Nutrition" brochure via [employer] and/or postal mail. documented in this encounter Plan of Treatment Upcoming Encounters Date Type Department Care Team (Late st Contact Info) Description 07/03/2024 10:00 AM EST Office Visit [facility] 200 [facility] [place] [address] Rina Neil PA-C 200 [facility] [place] [address] 08/27/2024 10:20 AM EST Office Visit Hepatology, [facility] [address] [facility] [place] [address] Sari Holder MD [address] [facility] [place] [address] 01/13/2025 1:45 PM EDT Imaging Radiology [facility] 132 [facility] [place] [address] 01/16/2025 3:00 PM EDT Office Visit Urology, [place] [address] [place] [address] Brianna Segovia PA-C [address] [place] [address] Health Maintenance Due Date Last Done Comments DISCUSS TOBACCO CESSATION (REFER TO SMARTSET #2765) 1970 Pneumococcal Vaccine: Pediatrics (0 to 5 [...] Vaccine (1 - 2023- season) 2024 GFR 11/27/2024 05/29/2024, 04/30, 05/11/2024, [...] this encounter Medical Devices Implanted Type Area Radial Drill Operator For Plastic Device Identifier Shelf Expiration Date Model / Serial / Lot Pod Packing Coil Jsoft 45cm - [id number] Implanted:Qty: 1 on 05/10/[address] [facility] [employer] [id number] 09/30/2031 RBYP ODJ45 / / [id number] Azur Detachable 018 7mmx 24cm - [id number] Implanted:Qty: 1 on 05/10/[address] [facility] [employer] [id number] 08/30/2028 [id number] / / [id number] Pod Packing Coil Jsoft 45cm - [id number] Implanted:Qty: 1 on 05/10/[address] [facility] [employer] [id number] 12/26/2031 RBYP ODJ45 / / [id number] Coil Radha Soft 7iff00bb - [id number] Implanted:Qty: 1 on 05/10/[address] [facility] [id number] 10/07/2031 RBY4 C0835 / / [id number] documented as of this encounter Advance Directives [...] Care Agent (per Health Care Power of Obstetric Assistant document) Care Teams Senior Qa Automation Engineer Relationship Specialty Start Date End Date Rina Neil PA-C 200 [facility] [place], [place] [address] PCP - General Physician Petroleum Refinery Worker 04/10/24 documented as of this encounter
--- OUTSIDE RECORDS SUMMARY | 2024-08-21 00:21 | External Medical Summary | Summary of Care ---
Author Name Unknown Organization [facility] Address [address] [place] [address] Phone [phone] Care Team Providers Care Machine Filler Servicer Name Role Phone Jolynn Rina Raul NEW Primary Care Provider [phone] Reason for Visit * Reason Onset Date Comments Pre-Transplant Evaluation 06/21/2024 Encounter Details Date Type Department Care Team (Late st Contact Info) Description 06/21/2024 [facility] [address] [place] [address] Nicolle Liu RN Pre-Transplant Evaluation [...] [facility] scan of the Abd/Pelvis [...] 10:00 AM EST Office Visit Transplant Clinic, [place] [address] [place] [address] Raimundo Ortega MD [facility] [address] [place], [place] [phone] Rodrick Bernal MD [facility] [address] [place], [place] [phone] Nurse Marquita [facility] [address] [place] [id number] Mariela Goetz, RECREATION THERAPY DIRECTOR [facility] [place], [place] [phone] 07/15/2024 2:30 PM EST Laboratory Outpatient Laboratory, [address] [address] [place], Lab B[address]a [address] [place] [id number] 08/27/2024 10:20 AM EST Office Visit Hepatology, [facility] [address] [place] [address] Sari Holder MD [address] [place], [place] [address] [address] 01/13/2025 1:45 PM EDT Imaging Radiology [facility] 132 [place] [address] 01/16/2025 3:00 PM EDT Office Visit Urology, [address] [phone] Brianna Segovia PA-C [facility] [address] [place], [place] [phone] Scheduled Orders Name Type Priority Associated Diagnoses [...] Comments DISCUSS TOBACCO CESSATION (REFER TO SMARTSET #9361) 1972 Pneumococcal Vaccine: Pediatrics (0 to 5 [...] this encounter Medical Devices Implanted Type Area Compositor Apprentice Device Identifier Shelf Expiration Date Model / Serial / Lot Pod Packing Coil Jsoft 45cm - [id number] Implanted:Qty: 1 on 05/10/2024 at [facility] [employer] [id number] 09/30/2031 RBY PODJ45 / / [id number] Azur Detachable 018 7mmx 24cm - [id number] Implanted:Qty: 1 on 05/10/2024 at [facility] [employer] [id number] 08/30/2028 [id number] / / [id number] Pod Packing Coil Jsoft 45cm - [id number] Implanted:Qty: 1 on 05/10/2024 at [facility] [employer] [id number] 12/26/2031 RBY PODJ45 / / [id number] Coil Radha Soft [id number] - [id number] Implanted:Qty: 1 on 05/10/2024 at [facility] [employer] [id number] 10/07/2031 RBY [id number] / / [id number] documented as of this encounter Visit Diagnoses [...] Care Agent (per Health Care Power of Mmd Unit Teacher document) Care Teams Machine Filler Servicer Relationship Specialty Start Date End Date Mary Jooctober SHAQ Carter [address] [place], [place] [address] PCP - General Physician Hot Plate Plywood Press Operator 04/10/24 documented as of this encounter
--- OUTSIDE RECORDS SUMMARY | 2024-08-21 00:22 | External Medical Summary | Summary of Care ---
Author Name Unknown Organization [facility] Address [address] [place] [address] Phone [phone] Care Team Providers Care Lab Asst Name Role Phone Rina Neil PA-C Primary Care Provider [phone] Encounter Details Date Type Department Care Team (Late st Contact Info) Description 05/27/2024 Telephone Hematology/Oncology, [facility] [address] [place] [address] Sari Holder MD [address] [place] [address] Allergies Active Allergy Reactions Criticality Noted Date Comments Penicillins Unknown 08/09/2023 documented as of this encounter (statuses as of 05/28/2024) Medications Medication Sig Dispensed Refills Start Date [...] For 3 BM's per day. 04/15/2024 Active Mag64 64 MG Oral Tablet Delayed Release Take 1 Tablet by mouth in the morning and 1 Tablet before bedtime. 03/06/2024 Active Folic Acid 1 MG Oral Tablet Take 5 Tablets by mouth in the morning. 150 Tablet 5 05/07/2024 Active Spironolactone 50 MG Oral Tablet (Aldactone) Take 1 Tablet by mouth in the morning. 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 GRACIELA (acute kidney injury) 05/10/2024 GAVE (gastric antral vascular ectasia) Severe protein-energy malnutrition 05/10/2024 Kidney disease, chronic, stage IV (GFR 15-29 ml/ min) 04/08/2024 Overview: Per CKD protocol Alcoholic cirrhosis 12/19/2023 Ascites due to alcoholic cirrhosis 12/19/2023 COPD, 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 Info sent to Leeanne to schedule appt. * Telephone Encounter - Silvia Hanks RN - 05/28/2024 8:37 AM EDT His appointment with IR will need to be set up by GI. Can be scheduled to coordinate with [facility] IR. Albumin infusion after paracentesis, 3 hour infusion time. * Telephone Encounter - Erica Peña LPN - 05/27/2024 4:22 PM EDT I spoke to Santiago earlier and informed him that [facility] cannot schedule for 2 weeks d/t lack of staff. He chose to have this done in [facility]. * Telephone Encounter - Silvia Hanks RN - 05/27/2024 4:11 PM EDT Received orders for albumin If paracentesis yields a total volume of more than 3 L of fluid, give 25% Albumin as follows: If over 5 L give 1 unit Albumin (25 gm in 100ml) 5 L to 7.5 L give 2 units Albumin (25 gm in 100 ml x2) 7.5 L to 12 L give 3 units Albumin (25 mg in 100 ml x3) Infuse Albumin over 30 to 60 minutes for each unit Plan is built. Can be scheduled to coordinate with IR for paracentesis. Note that pt states he wants at [facility], please advise where he will receive the Albumin. Thank you documented in this encounter Plan of Treatment Upcoming Encounters Date Type Department Care Team (Late st Contact Info) Description 05/29/2024 12:40 PM EDT Office Visit [address] [place] [address] Rina Neil PA-C [address] [place] [address] 07/03/2024 10:00 AM EST Office Visit [facility] [place] 200 [facility] [place] [address] Rina Neil PA-C [address] [place] [address] 08/27/2024 10:20 AM EST Office Visit Hepatology, [facility] 132 [place] [address] Sari Holder MD 310 [facility] [place] [address] 01/13/2025 1:45 PM EDT Imaging Radiology [facility] 132 [facility] [place] [address] 01/16/2025 3:00 PM EDT Office Visit Urology, [place] [address] [place] [address] Brianna Segovia PA-C [address] [place] [address] Health Maintenance Due Date Last Done Comments DISCUSS TOBACCO CESSATION (REFER TO SMARTSET #3499) 1970 Lipid Panel 1970 Pneumococcal Vaccine: Pediatrics [...] COVID-19 Vaccine (1 - season) 2024 GFR 11/10/2024 05/12/2024, 04/30, [...] this encounter Medical Devices Implanted Type Area Director Orange Device Identifier Shelf Expiration Date Model / Serial / Lot Pod Packing Coil Jsoft 45cm - [id number] Implanted:Qty: 1 on 05/10/2024 at [facility] [employer] [id number] 09/30/2031 RBYP ODJ45 / / [id number] Azur Detachable 018 7mmx 24cm - [id number] Implanted:Qty: 1 on 05/10/2024 at [facility] [employer] MARY [id number] 08/30/2028 [id number] / / [id number] Pod Packing Coil Jsoft 45cm - [id number] Implanted:Qty: 1 on 05/10/2024 at [facility] [employer] [id number] 12/26/2031 RBYP ODJ45 / / [id number] Coil Radha Soft 1giq10ar - [id number] Implanted:Qty: 1 on 05/10/2024 at [facility] [employer] [id number] 10/07/2031 RBY4 C0835 / / [id number] documented as of this encounter Visit Diagnoses [...] Care Agent (per Health Care Power of Tip Tester document) Care Teams Lab Asst Relationship Specialty Start Date End Date Jolynn October SHAQ Carter [address] [place], [place] [address] PCP - General Physician Molding Machine Operator 04/10/24 documented as of this encounter
--- OUTSIDE RECORDS SUMMARY | 2024-08-21 00:22 | External Medical Summary | Summary of Care ---
Author Name Unknown Organization [facility] Address [address] [place] [address] Phone [phone] Care Team Providers Care Tractor Mechanic Name Role Phone Jolynn Rina Carter PA-C Primary Care Provider [phone] Reason for Visit * Reason Onset Date Comments Advice 05/24/2024 Encounter Details Date Type Department Care Team (Late st Contact Info) Description 05/24/2024 Telephone Gastroenterology, [address] [address] Victorino Mark MD [address] [place] [address] Advice Allergies Active Allergy Reactions Criticality Noted [...] encounter Miscellaneous Notes * Addendum Note - Erica Negrete LPN - 05/28/2024 10:44 AM EDTAddended by: ERICA NEGRETE on: 05/28/2024 10:44 AM Modules accepted: Orders * Addendum Note - Victorino Mark MD - 05/27/2024 2:29 PM EDTAddended by: VICTORINO MARK on: 05/27/2024 02:29 PM Modules accepted: Orders * Addendum Note - Erica Negrete LPN - 05/27/2024 1:59 PM EDTAddended by: ERICA NEGRETE on: 05/27/2024 01:59 PM Modules accepted: Orders * Telephone Encounter - Erica Negrete LPN - 05/27/2024 1:43 PM EDT US Guided Paracentesis Order yes Diagnostic ONLY? for new onset ascite Fluid removal amount addressed? yes Albumin orders [...] manages their diabetic medications Patient scheduling preferences: * Addendum Note - Erica Negrete LPN - 05/27/2024 1:12 PM EDTAddended by: ERICA NEGRETE on: 05/27/2024 01:12 PM Modules accepted: Orders * Telephone Encounter - Mariela De Dios RN - 05/24/2024 12:38 PM EDT Spoke to Cheri, patient's roommate, with patient in background. They would like to have routine paracenteses done at [facility] ([facility]xim[facility]) Dr Mark, there is an standing order in for this to be done every 2 weeks. Order is by an internal med provider. Can we use this order to initiate scheduling at [facility] or should we do a new orderunder you? I don't see an order for Albumin or labs. Do you want these ordered for him as well? Thank you! * Telephone Encounter - Stacey Carver OSA - 05/24/2024 12:07 PM EDT Cheri is calling to speak with Cheri if possible about pt did receive verbal permission from pt to speak with cheri in regards to needs please contact cheri when available thank you documented in this encounter Plan of Treatment Upcoming Encounters Date Type Department Care Team (Late st Contact Info) Description 05/29/2024 12:40 PM EDT Office Visit [facility] [place] [address] Rina Neil PA-C [address] [place] [address] 07/03/2024 10:00 AM EST Office Visit [facility] [address] [place] [address] Rina Neli PA-C [address] [place] [address] 08/27/2024 10:20 AM EST Office Visit Hepatology, [facility] 132 [facility] [place] [address] Victorino Mark MD [address] [place] [address] [place] [address] 01/13/2025 1:45 PM EDT Imaging Radiology [facility] 132 [facility] [place] [address] 01/16/2025 3:00 PM EDT Office Visit Urology, [place] [address] [place] [address] Brianna Segovia PA-C [address] [place], [place] [id number] Health Maintenance Due Date Last Done Comments DISCUSS TOBACCO CESSATION (REFER TO SMARTSET #8865) 1972 Lipid Panel 1972 Pneumococcal Vaccine: Pediatrics [...] this encounter Medical Devices Implanted Type Area Child Care Provider Device Identifier Shelf Expiration Date Model / Serial / Lot Pod Packing Coil Jsoft 45cm - [id number] Implanted:Qty: 1 on [facility]10[facility]2024 [facility] [id number] 09/30/2031 RBYP ODJ45 / / [id number] Azur Detachable 018 7mmx 24cm - [id number] Implanted:Qty: 1 on 05/10/2024 at [facility] [employer] MARY [id number] 08/30/2028 [id number] / / [id number] Pod Packing Coil Jsoft 45cm - [id number] Implanted:Qty: 1 on 05/10/2024 [facility] [id number] 12/26/2031 RBYP ODJ45 / / [id number] Coil Radha Soft [id number] - [id number] Implanted:Qty: 1 on 05/10/2024 at [facility] [id number] 10/07/2031 RBY4 C0835 / / [id number] documented as of this encounter Visit Diagnoses Diagnosis Other cirrhosis of liver (HCC)- Primary Other ascites Alcoholic cirrhosis of liver with [...] Care Agent (per Health Care Power of Dermatologist document) Care Teams Tractor Mechanic Relationship Specialty Start Date End Date JolynnOctober SHAQ Carter [address] [place] [address] PCP - General Physician Ophthalmic Surgical Assistant 04/10/24 documented as of this encounter
--- OUTSIDE RECORDS SUMMARY | 2024-08-21 00:22 | External Medical Summary | Summary of Care ---
Author Name Unknown Organization [facility] Address [address] [facility] [place] [address] Phone [phone] Care Team Providers Care Willower Name Role Phone Jolynn Rina Raul NEW Primary Care Provider [phone] Encounter Details Date Type Department Care Team (Late st Contact Info) Description 05/28/2024 Orders Only ENDO [facility], Endoscopy Room [facility] 132 [facility] [place] [address] Sari Holder MD [address] [place] [address] [place] [address] Allergies Active Allergy Reactions Criticality Noted [...] Description 05/29/2024 12:40 PM EDT Office Visit [facility] [address] [place] [address] Rina Neil PA-C [address] COUNTS INCLUDE 234 BEDS AT [facility] [place] [address] 07/03/2024 10:00 AM EST Office Visit Family Practice [facility] 200 [facility] [place] [address] Rina Neil PA-C 200 [facility] [place] [address] 08/27/2024 10:20 AM EST Office Visit Hepatology, [facility] [address] [place] [address] Sari Holder MD [address] [place] [address] 01/13/2025 1:45 PM EDT Imaging Radiology [facility] 132 [place] [address] 01/16/2025 3:00 PM EDT Office Visit Urology, [place] [address] [place] [address] Brianna Segovia PA-C [address] [place] [address] Health Maintenance Due Date Last Done Comments DISCUSS TOBACCO CESSATION (REFER TO SMARTSET #2737) 1972 Lipid Panel 1972 Pneumococcal Vaccine: Pediatrics [...] this encounter Medical Devices Implanted Type Area Gunnery/Ordnance Officer Device Identifier Shelf Expiration Date Model / Serial / Lot Pod Packing Coil Jsoft 45cm - [id number] Implanted:Qty: 1 on 05/10/2024 at [facility] [employer] [id number] 09/30/2031 RBYP ODJ45 / / [id number] Azur Detachable 018 7mmx 24cm - [id number] Implanted:Qty: 1 on 05/10/2024 at [facility] [employer] MARY [id number] 08/30/2028 [id number] / / [id number] Pod Packing Coil Jsoft 45cm - [id number] Implanted:Qty: 1 on 05/10/2024 at [facility] [employer] [id number] 12/26/2031 RBYP ODJ45 / / [id number] Coil Radha Soft 4igp47pp - [id number] Implanted:Qty: 1 on 05/10/2024 at [facility] [employer] [id number] 10/07/2031 RBY4 C0835 / / [id number] documented as of this encounter Advance Directives [...] Care Agent (per Health Care Power of Fourth Hand document) Care Teams Willower Relationship Specialty Start Date End Date Jolynn October Raul, PARachidC [address] [place] [address] PCP - General Physician District Director 04/10/24 documented as of this encounter
--- OUTSIDE RECORDS SUMMARY | 2024-08-21 00:22 | External Medical Summary | Summary of Care ---
Author Name Unknown Organization [facility] Address [address] [place] [address] Phone [phone] Care Team Providers Care Specification Manager Name Role Phone Rina Neil PA-C Primary Care Provider [phone] Encounter Details Date Type Department Care Team (Late st Contact Info) Description 05/27/2024 Telephone Hematology/Oncology, [facility] [address] [place] [address] Sari Holder MD [address] [place] [address] Allergies Active Allergy Reactions Criticality [...] Note - Erica Negrete LPN - 05/28/2024 1:17 PM EDTAddended by: ERICA NEGRETE on: 05/28/2024 01:17 PM Modules accepted: Orders * Telephone Encounter - Erica Negrete LPN - 05/28/2024 11:27 AM EDT [facility] can get him in next week. Info sent to Leeanne to schedule appt. * Telephone Encounter - Silvia Hanks RN - 05/28/2024 8:37 AM EDT His appointment with IR will need to be set up by GI. Can be scheduled to coordinate with [facility] IR. Albumin infusion after paracentesis, 3 hour infusion time. * Telephone Encounter - Erica Negrete LPN - 05/27/2024 4:22 PM EDT I spoke to Santiago earlier and informed him that [facility] cannot schedule for 2 weeks d/t lack of staff. He chose to have this done in [facility]. * Telephone Encounter - Silvia Hanks [...] Note that pt states he wants at [facility], please advise where he will receive the Albumin. Thank you documented in this encounter Plan of Treatment Upcoming Encounters Date Type Department Care Team (Late st Contact Info) Description 05/29/2024 12:40 PM EDT Office Visit [facility] 200 [facility] [place] [address] Rina Neil PA-C [address] [facility] [place] [address] 07/03/2024 10:00 AM EST Office Visit [facility] [address] [place] [address] Rina Neil PA-C 200 [facility] [place] [address] 08/27/2024 10:20 AM EST Office Visit Hepatology, [facility] 132 [place] [address] Sari Holder MD [address] [place] [address] 01/13/2025 1:45 PM EDT Imaging Radiology [facility] 132 [place] [address] 01/16/2025 3:00 PM EDT Office Visit Urology, [place] [address] [place] [address] Brianna Segovia PA-C [address] [place] [address] Health Maintenance Due Date Last Done Comments DISCUSS TOBACCO CESSATION (REFER TO SMARTSET #1987) 1972 Lipid Panel 1972 Pneumococcal Vaccine: Pediatrics [...] this encounter Medical Devices Implanted Type Area Pound Keeper Device Identifier Shelf Expiration Date Model / Serial / Lot Pod Packing Coil Jsoft 45cm - [id number] Implanted:Qty: 1 on 05/10/2024 at [facility] [employer] [id number] 09/30/2031 RBYP ODJ45 / / [id number] Azur Detachable 018 7mmx 24cm - [id number] Implanted:Qty: 1 on 05/10/2024 at [facility] [employer] [id number] 08/30/2028 [id number] / / [id number] Pod Packing Coil Jsoft 45cm - [id number] Implanted:Qty: 1 on 05/10/2024 at [facility] [employer] [id number] 12/26/2031 RBYP ODJ45 / / [id number] Coil Radha Soft [id number] - [id number] Implanted:Qty: 1 on 05/10/2024 at [facility] KHADIJAH RODRIGEZ [id number] 10/07/2031 RBRaúl C0835 / / [id number] documented as of this encounter Visit Diagnoses [...] Care Agent (per Health Care Power of Manager Qa document) Care Teams Specification Manager Relationship Specialty Start Date End Date Jolynn October SHAQ Carter [address] [place] [address] PCP - General Physician Manufacturing Maintenance Technician 04/10/24 documented as of this encounter
--- OUTSIDE RECORDS SUMMARY | 2024-08-21 00:22 | External Medical Summary | Summary of Care ---
Author Name Unknown Organization [facility] Address [address] [place] [address] Phone [phone] Care Team Providers Care Leadership Program Internship Name Role Phone Jolynn Rina Carter PA-C Primary Care Provider [phone] Reason for Visit * Reason Onset Date Comments Advice 05/24/2024 Encounter Details Date Type Department Care Team (Late st Contact Info) Description 05/24/2024 Telephone Gastroenterology, [address] [address] Victorino aMrk MD [address] [place] [address] Advice Allergies Active Allergy Reactions Criticality [...] Note - Erica Negrete LPN - 05/28/2024 11:23 AM EDTAddended by: ERICA NEGRETE on: 05/28/2024 11:23 AM Modules accepted: Orders * Addendum Note - Victorino Mark MD - 05/28/2024 10:46 AM EDTAddended by: VICTORINO MARK on: 05/28/2024 10:46 AM Modules accepted: Orders * Addendum Note [...] like to have routine paracenteses done at [facility] ([facility]) Dr Mark, there is an standing order in for this to be done every 2 weeks. Order is by an internal med provider. Can we use this order to initiate scheduling at [facility] or should we do a new orderunder [...] Description 05/29/2024 12:40 PM EDT [facility] [place] [place] [address] [place] [place] [address] Rina Neil PA-C [address] [place] [address] [address] 07/03/2024 10:00 AM EST Office Visit [facility] Aime [place] [address] [place] [address] Rina Neil PA-C [address] [place] [address] [place] [address] 08/27/2024 10:20 AM EST Office Visit Hepatology, [facility] 132 [place] [address] Victorino Mark MD [address] [facility] [place] [address] 01/13/2025 1:45 PM EDT Imaging Radiology [facility] 132 [facility] [place] [address] 01/16/2025 3:00 PM EDT Office Visit Urology, [place] [address] [place] [address] Brianna Segovia PA-C [address] [place] [address] Scheduled Orders Name Type Priority Associated Diagnoses Order Schedule US ABDOMINAL PARACENTESIS Medical Imaging Routine Other cirrhosis of liver (HCC) Other ascites Alcoholic cirrhosis of liver with ascites (HCC) Ascites due to alcoholic cirrhosis (HCC) Every 2 Weeks for 15 Occurrences starting 05/28/2024 until 06/28/2025 Health Maintenance Due Date Last Done Comments DISCUSS TOBACCO CESSATION (REFER TO SMARTSET #2570) 1972 Lipid Panel 1972 Pneumococcal Vaccine: Pediatrics [...] of 2) 2022 COVID-19 Vaccine ( - 2024-25 season) 2024 GFR 11/10/2024 05/12/2024, 04/30, 05/10/2024, [...] this encounter Medical Devices Implanted Type Area Mental Telepathist Device Identifier Shelf Expiration Date Model / Serial / Lot Pod Packing Coil Jsoft 45cm - [id number] Implanted:Qty: 1 on 05/10/2024 at [facility] [employer] [id number] 09/30/2031 RBYP ODJ45 / / [id number] Azur Detachable 018 7mmx 24cm - [id number] Implanted:Qty: 1 on 05/10/2024 at [facility] [employer] MARY [id number] 08/30/2028 [id number] / / [id number] Pod Packing Coil Jsoft 45cm - [id number] Implanted:Qty: 1 on 05/10/2024 at [facility] [employer]in.[employer]BRA INC [id number] 12/26/2031 RBYP ODJ45 / / [id number] Coil Radha Soft [id number] - [id number] Implanted:Qty: 1 on 05/10/2024 at [facility] [employer] [id number] 10/07/2031 RBY4 C0835 / / [id number] documented as of this encounter Visit Diagnoses [...] Care Agent (per Health Care Power of Signal Maintenance Technician document) Care Teams Leadership Program Internship Relationship Specialty Start Date End Date JolynnOctober SHAQ Carter [address] [place] [address] PCP - General Physician Financial Services Officer 04/10/24 documented as of this encounter
--- OUTSIDE RECORDS SUMMARY | 2024-08-21 00:22 | External Medical Summary | Summary of Care ---
Author Name Unknown Organization [facility] Address [address] [place] [address] Phone [phone] Care Team Providers Care Mail List Processor Name Role Phone Jolynn Rina Carter PA-C Primary Care Provider [phone] Reason for Visit * Reason Onset Date Comments Advice 05/24/2024 Encounter Details Date Type Department Care Team (Late st Contact Info) Description 05/24/2024 Telephone Gastroenterology, [address] [address] Victorino Mark MD [address] [place] [address] Advice Allergies Active Allergy Reactions Criticality [...] like to have routine paracenteses done at [facility] ([facility]) Dr Mark, there is an standing order in for this to be done every 2 weeks. Order is by an internal med provider. Can we use this order to initiate scheduling at [facility] or should we do a new [...] Description 05/29/2024 12:40 PM EDT [facility] [place] [address] [place] [address] [address] Rina Neil PA-C [address] [place] [address] [place] [address] 07/03/2024 10:00 AM EST Office Visit [facility] Aime [place] [address] [place] [address] [address] Rina Neil PA-C [address] [place] [address] 08/27/2024 10:20 AM EST Office Visit Hepatology, [facility] 132 [place] [address] Victorino Mark MD [address] [facility] [place] [address] 01/13/2025 1:45 PM EDT Imaging Radiology [facility] 132 [facility] [place] [address] 01/16/2025 3:00 PM EDT Office Visit Urology, [place] [address] [place] [address] Brianna Segovia PA-C [address] [place] [address] Scheduled Orders Name Type Priority Associated Diagnoses Order Schedule US ABDOMINAL PARACENTESIS Medical Imaging Routine Other cirrhosis of liver (HCC) Other ascites Alcoholic cirrhosis of liver with ascites (HCC) Ascites due to alcoholic cirrhosis (HCC) Every 2 Weeks for 15 Occurrences starting 05/28/2024 until 06/28/2025 Health Maintenance Due Date Last Done Comments DISCUSS TOBACCO CESSATION (REFER TO SMARTSET #5234) 1972 Lipid Panel 1972 Pneumococcal Vaccine: Pediatrics [...] this encounter Medical Devices Implanted Type Area Pattern Storage Clerk Device Identifier Shelf Expiration Date Model / Serial / Lot Pod Packing Coil Jsoft 45cm - [id number] Implanted:Qty: 1 on 05/10/2024 at [facility] [employer] [id number] 09/30/2031 RBYP ODJ45 / / [id number] Azur Detachable 018 7mmx 24cm - [id number] Implanted:Qty: 1 on 05/10/2024 at [facility] [employer]Collaborate [employer] MARY [id number] 08/30/2028 [id number] / / [id number] Pod Packing Coil Jsoft 45cm - [id number] Implanted:Qty: 1 on 05/10/2024 at [facility] [employer] [id number] 12/26/2031 RBYP ODJ45 / / [id number] Coil Radha Soft [id number] - [id number] Implanted:Qty: 1 on 05/10/2024 at [facility] [employer] [id number] 10/07/2031 RBY4 C0835 / / [id number] documented as of this encounter Visit Diagnoses [...] Care Agent (per Health Care Power of Joint Machine Operator document) Care Teams Mail List Processor Relationship Specialty Start Date End Date JolynnOctober SHAQ Carter [address] [place] [address] PCP - General Physician Roller Staker 04/10/24 documented as of this encounter
--- OUTSIDE RECORDS SUMMARY | 2024-08-21 00:22 | External Medical Summary | Summary of Care ---
Author Name Unknown Organization [facility] Address [address] [place] [address] Phone [phone] Care Team Providers Care Ticket Printer And Tagger Name Role Phone Jolynn Rina Carter PA-C Primary Care Provider [phone] Reason for Visit * Reason Onset Date Comments Advice 05/24/2024 Encounter Details Date Type Department Care Team (Late st Contact Info) Description 05/24/2024 Telephone Gastroenterology, [address] [address] Victorino Mark MD [address] [place] [address] Advice Allergies Active Allergy Reactions Criticality [...] encounter Miscellaneous Notes * Addendum Note - Victorino Mark MD - 05/28/2024 10:46 AM EDTAddended by: VICTORINO MARK on: 05/28/2024 10:46 AM Modules accepted: Orders * Addendum Note - Mariana, Erica, MOVIE SHOT CAMERAMAN - 05/28/2024 10:44 AM EDTAddended by: ERICA NEGRETE on: 05/28/2024 10:44 AM Modules accepted: Orders * Addendum Note - Victorino Mark MD - 05/27/2024 2:29 PM EDTAddended by: VICTORINO MARK on: 05/27/2024 02:29 PM Modules accepted: Orders * Addendum Note - Erica Negrete LPN - 05/27/2024 1:59 PM EDTAddended by: ERICA NEGRETE on: 05/27/2024 01:59 PM Modules accepted: Orders * Telephone Encounter - rEica Negrete LPN - 05/27/2024 1:43 PM EDT [...] like to have routine paracenteses done at [facility] ([facility]xim[facility]) Dr Mark, there is an standing order in for this to be done every 2 weeks. Order is by an internal med provider. Can we use this order to initiate scheduling at [facility] or should we do a new orderunder [...] Description 05/29/2024 12:40 PM EDT Office Visit [facility] 200 [facility] [place] [address] Rina Neil PA-C [address] [place] [address] 07/03/2024 10:00 AM EST Office Visit [facility] [address] [place] [address] Rina Neil PA-C [address] [place] [address] 08/27/2024 10:20 AM EST Office Visit Hepatology, [facility] 132 [facility] [place] [address] Victorino Mark MD 310 [facility] [place] [address] 01/13/2025 1:45 PM EDT Imaging Radiology [facility] [address] [place] [address] 01/16/2025 3:00 PM EDT Office Visit Urology, [place] [address] [place] [address] Brianna Segovia PA-C [address] [place], [place] [phone] Scheduled Orders Name Type Priority Associated Diagnoses Order Schedule US ABDOMINAL PARACENTESIS Medical Imaging Routine Other cirrhosis of liver (HCC) Other ascites Alcoholic cirrhosis of liver with ascites (HCC) Ascites due to alcoholic cirrhosis (HCC) Every 2 Weeks for 15 Occurrences starting 05/28/2024 until 06/28/2025 Health Maintenance Due Date Last Done Comments DISCUSS TOBACCO CESSATION (REFER TO SMARTSET #7679) 1972 Lipid Panel 1972 Pneumococcal Vaccine: Pediatrics [...] this encounter Medical Devices Implanted Type Area Malt House Operator Device Identifier Shelf Expiration Date Model / Serial / Lot Pod Packing Coil Jsoft 45cm - [id number] Implanted:Qty: 1 on 05/10/[address] [facility] [employer] [id number] 09/30/2031 RBYP ODJ45 / / [id number] Azur Detachable 018 7mmx 24cm - [id number] Implanted:Qty: 1 on 05/10/[address] [facility] [employer] MARY [id number] 08/30/2028 [id number] / / [id number] Pod Packing Coil Jsoft 45cm - [id number] Implanted:Qty: 1 on 05/10/[address] [facility] [employer] [id number] 12/26/2031 RBYP ODJ45 / / [id number] Coil Radha Soft [id number] - [id number] Implanted:Qty: 1 on [facility] [id number] 10/07/2031 RBY4 C0835 / / [id number] documented as of this encounter Visit Diagnoses [...] Care Agent (per Health Care Power of System Operator document) Care Teams Ticket Printer And Tagger Relationship Specialty Start Date End Date Mary Jooctober Raul, SHAQ [address] [place] [address] PCP - General Physician Inside Phone Sales 04/10/24 documented as of this encounter
--- OUTSIDE RECORDS SUMMARY | 2024-08-21 00:22 | External Medical Summary | Summary of Care ---
Author Name Unknown Organization [facility] Address [address] [place] [address] Phone [phone] Care Team Providers Care Tray Line Supervisor Name Role Phone Jolynn Rina Carter PA-C Primary Care Provider [phone] Reason for Visit * Reason Onset Date Comments Advice 05/24/2024 Encounter Details Date Type Department Care Team (Late st Contact Info) Description 05/24/2024 Telephone Gastroenterology, [address] [address] Victorino Mark MD [address] [place] [address] Advice Allergies Active Allergy Reactions Criticality [...] - 05/28/2024 10:46 AM EDTAddended by: VICTORINO MAKR on: 05/28/2024 10:46 AM Modules accepted: Orders [...] like to have routine paracenteses done at [facility] (proximity) Dr Mark, there is an standing order in for this to be done every 2 weeks. Order is by an internal med provider. Can we use this order to initiate scheduling at [facility] or should we do a [...] Description 05/29/2024 12:40 PM EDT [facility] [place] [address] [place] [address] [address] Rina Neil PA-C [address] [place] [address] 07/03/2024 10:00 AM EST Office Visit [facility] [place] Aime Menchaca [address] [place] [address] [address] Rina Neil PA-C [address] [place] [address] [address] 08/27/2024 10:20 AM EST Office Visit Hepatology, [facility] 132 [place] [address] Victorino Mark MD [address] [facility] [place] [address] 01/13/2025 1:45 PM EDT Imaging Radiology [facility] 132 [facility] [place] [address] 01/16/2025 3:00 PM EDT Office Visit Urology, [place] [address] [place] [address] Brianna Segovia PA-C [address] [place] [address] Scheduled Orders Name Type Priority Associated Diagnoses Order Schedule US ABDOMINAL PARACENTESIS Medical Imaging Routine Other cirrhosis of liver (HCC) Other ascites Alcoholic cirrhosis of liver with ascites (HCC) Ascites due to alcoholic cirrhosis (HCC) Every 2 Weeks for 15 Occurrences starting 05/28/2024 until 06/28/2025 Health Maintenance Due Date Last Done Comments DISCUSS TOBACCO CESSATION (REFER TO SMARTSET #1033) 1972 Lipid Panel 1972 Pneumococcal Vaccine: Pediatrics [...] this encounter Medical Devices Implanted Type Area Central Service Technician Device Identifier Shelf Expiration Date Model / Serial / Lot Pod Packing Coil Jsoft 45cm - [id number] Implanted:Qty: 1 on 05/10/[address] [facility] [employer] [id number] 09/30/2031 RBYP ODJ45 / / [id number] Azur Detachable 018 7mmx 24cm - [id number] Implanted:Qty: 1 on 05/10/[address] [facility] [email or web address] MARY [id number] 08/30/2028 [id number] / / [id number] Pod Packing Coil Jsoft 45cm - [id number] Implanted:Qty: 1 on 05/10/[address] [facility] [employer] [id number] 12/26/2031 RBYP ODJ45 / / [id number] Coil Radha Soft 4rky30lm - [id number] Implanted:Qty: 1 on 05/10/[address] [facility] [employer] [id number] 10/07/2031 RBY4 C0835 / / [id number] documented as of this encounter Visit Diagnoses [...] Care Agent (per Health Care Power of Braddisher document) Care Teams Tray Line Supervisor Relationship Specialty Start Date End Date JolynnOctober SHAQ Carter [address] [place] [address] PCP - General Physician Wrapper Stemmer Operator 04/10/24 documented as of this encounter
--- OUTSIDE RECORDS SUMMARY | 2024-08-21 00:22 | External Medical Summary | Summary of Care ---
Author Name Unknown Organization [facility] Address [address] [place] [address] Phone [phone] Care Team Providers Care Licensed Embalmer Supervisor Name Role Phone Rina Neil PA-C Primary Care Provider [phone] Encounter Details Date Type Department Care Team (Late st Contact Info) Description 05/27/2024 Telephone Hematology/Oncology, [facility] [address] [place] [address] Victorino Mark MD [address] [place] [address] Allergies Active Allergy Reactions Criticality [...] Note - Victorino Mark MD - 05/28/2024 1:24 PM EDTAddended by: VICTORINO MARK on: 05/28/2024 01:24 PM Modules accepted: Orders * Addendum Note - Erica Negrete LPN - 05/28/2024 1:17 PM EDTAddended by: ERICA NEGRETE on: 05/28/2024 01:17 PM Modules accepted: Orders * Telephone Encounter - Erica Negrete LPN - 05/28/2024 11:27 AM EDT [facility] can get him in next week. Info sent to Leeanne to schedule appt. * Telephone Encounter - Silvia Hanks RN - 05/28/2024 8:37 AM EDT His appointment with IR will need to be set up by GI. Can be scheduled to coordinate with [facility] IR. Albumin infusion after paracentesis, 3 hour infusion time. * Telephone Encounter - Erica Negrete LPN - 05/27/2024 4:22 PM EDT I spoke to Santiago earlier and informed him that [facility] cannot schedule for 2 weeks d/t lack of staff. He chose to have this done in [facility]. * Telephone Encounter - Silvia Hanks RN [...] Note that pt states he wants at [facility], please advise where he will receive the Albumin. Thank you documented in this encounter Plan of Treatment Upcoming Encounters Date Type Department Care Team (Late st Contact Info) Description 05/29/2024 12:40 PM EDT Office Visit [facility] [place] [place] [address] Rina Neil PA-C [address] [facility] [place] [address] 07/03/2024 10:00 AM EST Office Visit [facility] 200 [facility] [place] [place] [address] Rina Neil PA-C [address] [place] [address] 08/27/2024 10:20 AM EST Office Visit Hepatology, [facility] [address] Victorino Mark MD [address] [place], [place] [address] 01/13/2025 1:45 PM EDT Imaging Radiology [facility] 132 [facility] [place] [address] 01/16/2025 3:00 PM EDT Office Visit Urology, [place] [address] [place] [address] Brianna Segovia PA-C [address] [place] [address] Scheduled Orders Name Type Priority Associated Diagnoses Order Schedule US ABDOMINAL PARACENTESIS Medical Imaging Routine Other cirrhosis of liver (HCC) Other ascites Alcoholic cirrhosis of liver with ascites (HCC) Ascites due to alcoholic cirrhosis (HCC) Every 2 Weeks for 15 Occurrences starting 05/28/2024 until 06/28/2025 Health Maintenance Due Date Last Done Comments DISCUSS TOBACCO CESSATION (REFER TO SMARTSET #6135) 1972 Lipid Panel 1972 Pneumococcal Vaccine: Pediatrics [...] this encounter Medical Devices Implanted Type Area Rack Pusher Device Identifier Shelf Expiration Date Model / Serial / Lot Pod Packing Coil Jsoft 45cm - [id number] Implanted:Qty: 1 on 05/10/2024 at [facility] KHADIJAH RODRIGEZ [id number] 09/30/2031 RBYP ODJ45 / / [id number] Azur Detachable 018 7mmx 24cm - [id number] Implanted:Qty: 1 on 05/10/2024 at [facility] TERZALP MARY [id number] 08/30/2028 [id number] / / [id number] Pod Packing Coil Jsoft 45cm - [id number] Implanted:Qty: 1 on 05/10/2024 at [facility] [employer] [id number] 12/26/2031 RBYP ODJ45 / / [id number] Coil Radha Soft 6eou28wp - [id number] Implanted:Qty: 1 on 05/10/2024 at [facility] [employer] [id number] 10/07/2031 RBY4 C0835 / / [id number] documented as of this encounter Visit Diagnoses [...] Care Agent (per Health Care Power of Nurse document) Care Teams Licensed Embalmer Supervisor Relationship Specialty Start Date End Date Rina Neil PA-C [address] [place] [address] [facility] [place] [address] PCP - General Physician Drawer Upfitter 04/10/24 documented as of this encounter
--- OUTSIDE RECORDS SUMMARY | 2024-08-21 00:22 | External Medical Summary | Summary of Care ---
Author Name Unknown Organization [facility] Address [address] [facility] [place] [address] Phone [phone] Care Team Providers Care 2Nd Pressman Name Role Phone Jolynn Irna Raul NEW Primary Care Provider [phone] Encounter Details Date Type Department Care Team (Late st Contact Info) Description 05/27/2024 Orders Only Hematology/Oncology Treatment, [facility] [address] [place] [address] Sair Holder MD [address] [place] [address] New orders received, plan built and sent for signature. Allergies Active Allergy Reactions Criticality Noted Date [...] as of this encounter Progress Notes * Silvia Hanks RN - 05/27/2024 4:10 PM EDT New orders received, plan built and sent for signature. documented in this encounter Plan of Treatment Upcoming Encounters Date Type Department Care Team (Late st Contact Info) Description 05/29/2024 12:40 PM EDT Office Visit [facility] 200 [facility] [place] [address] Rina Neil PA-C [address] [place] [address] 07/03/2024 10:00 AM EST Office Visit [facility] [address] [place] [address] Rina Neil PA-C [address] COUNT [facility] [place] [address] 08/27/2024 10:20 AM EST Office Visit Hepatology, [facility] 132 [place] [address] Sari Holder MD [address] [place] [address] 01/13/2025 1:45 PM EDT Imaging Radiology [facility] 132 [place] [address] 01/16/2025 3:00 PM EDT Office Visit Urology, [place] [address] [place] [address] Brianna Segovia PA-C [address] [place] [address] Health Maintenance Due Date Last Done Comments DISCUSS TOBACCO CESSATION (REFER TO SMARTSET #7201) 1972 Lipid Panel 1972 Pneumococcal Vaccine: Pediatrics [...] this encounter Medical Devices Implanted Type Area Outside Upholsterer Device Identifier Shelf Expiration Date Model / Serial / Lot Pod Packing Coil Jsoft 45cm - [id number] Implanted:Qty: 1 on 05/10/2024 at [facility] [employer] [id number] 09/30/2031 RBYP ODJ45 / / [id number] Azur Detachable 018 7mmx 24cm - [id number] Implanted:Qty: 1 on 05/10/2024 at [facility] [employer] MARY [id number] 08/30/2028 [id number] / / [id number] Pod Packing Coil Jsoft 45cm - [id number] Implanted:Qty: 1 on 05/10/2024 at [facility] KHADIJAH RODRIGEZ [id number] 12/26/2031 RBYP ODJ45 / / [id number] Coil Radha Soft 5vta29sg - [id number] Implanted:Qty: 1 on 05/10/2024 at [facility] KHADIJAH RODRIGEZ [id number] 10/07/2031 RBY4 C0835 / / [id number] documented as of this encounter Advance Directives [...] Care Agent (per Health Care Power of Aerospace Stress Engineer document) Care Teams 2Nd Pressman Relationship Specialty Start Date End Date Mary Jooctober SHAQ Carter [address] [place], [place] [address] PCP - General Physician Italian Tutor 04/10/24 documented as of this encounter
--- OUTSIDE RECORDS SUMMARY | 2024-08-21 00:22 | External Medical Summary | Summary of Care ---
Author Name Unknown Organization [facility] Address [address] [facility] [place] [address] Phone [phone] Care Team Providers Care Fingernail Sculptor Name Role Phone Jolynn Rina Raul NEW Primary Care Provider [phone] Encounter Details Date Type Department Care Team (Late st Contact Info) Description 05/28/2024 Orders Only ENDO [facility], Endoscopy Room [facility] 132 [facility] [place] [address] Sari Holder MD [address] [place] [address] [place] [address] Allergies Active Allergy Reactions [...] Practice State Aime Manning [address] [place] [address] Rina Neil PA-C [address] [facility] [place] [address] 07/03/2024 10:00 AM EST Office Visit Family Practice [facility] 200 [facility] [place] [address] Rina Neil PA-C 200 [facility] [place] [address] 08/27/2024 10:20 AM EST Office Visit Hepatology, [facility] 132 [place] [address] Sari Holder MD [address] [place] [address] 01/13/2025 1:45 PM EDT Imaging Radiology [facility] 132 [place] [address] 01/16/2025 3:00 PM EDT Office Visit Urology, [place] [address] [place] [address] Brianna Segovia PA-C [address] [place] [address] Health Maintenance Due Date Last Done Comments DISCUSS TOBACCO CESSATION (REFER TO SMARTSET #3437) 1972 Lipid Panel 1972 Pneumococcal Vaccine: Pediatrics [...] this encounter Medical Devices Implanted Type Area Medical Device Device Identifier Shelf Expiration Date Model / Serial / Lot Pod Packing Coil Jsoft 45cm - [id number] Implanted:Qty: 1 on 05/10/2024 at [facility] [employer] [id number] 09/30/2031 RBYP ODJ45 / / [id number] Azur Detachable 018 7mmx 24cm - [id number] Implanted:Qty: 1 on 05/10/2024 at [facility] [employer] MARY [id number] 08/30/2028 [id number] / / [id number] Pod Packing Coil Jsoft 45cm - [id number] Implanted:Qty: 1 on 05/10/2024 at [facility] [employer] [id number] 12/26/2031 RBYP ODJ45 / / [id number] Coil Radha Soft 8fon52xp - [id number] Implanted:Qty: 1 on 05/10/2024 at [facility] [employer] [id number] 10/07/2031 RBY4 C0835 / / [id number] documented as of this encounter Advance Directives [...] Care Agent (per Health Care Power of Secondary School Special Ed Teacher document) Care Teams Fingernail Sculptor Relationship Specialty Start Date End Date Jolynn October Raul, PARachidC [address] [place] [address] PCP - General Physician Reports Analysis Manager 04/10/24 documented as of this encounter
--- OUTSIDE RECORDS SUMMARY | 2024-08-21 00:22 | External Medical Summary | Summary of Care ---
Author Name Unknown Organization [facility] Address [address] [facility] [place] [address] Phone [phone] Care Team Providers Care Milk And Cream Grader Name Role Phone Jolynn Rina Raul NEW Primary Care Provider [phone] Encounter Details Date Type Department Care Team (Late st Contact Info) Description 05/28/2024 Orders Only ENDO [facility], Endoscopy Room [facility] 132 [facility] [place] [address] Sari Holder MD [address] [place] [address] [place] [address] Allergies Active Allergy Reactions [...] Practice State Aime Manning [address] [place] [address] Rina Neil PA-C [address] [facility] [place] [address] 07/03/2024 10:00 AM EST Office Visit Family Practice [facility] 200 [facility] [place] [address] Rina Neil PA-C 200 [facility] [place] [address] 08/27/2024 10:20 AM EST Office Visit Hepatology, [facility] 132 [place] [address] Sari Holder MD [address] [place] [address] 01/13/2025 1:45 PM EDT Imaging Radiology [facility] 132 [place] [address] 01/16/2025 3:00 PM EDT Office Visit Urology, [place] [address] [place] [address] Brianna Segovia PA-C [address] [place] [address] Health Maintenance Due Date Last Done Comments DISCUSS TOBACCO CESSATION (REFER TO SMARTSET #9092) 1972 Lipid Panel 1972 Pneumococcal Vaccine: Pediatrics [...] encounter Medical Devices Implanted Type Area Gas Or Petroleum Operator Device Identifier Shelf Expiration Date Model / Serial / Lot Pod Packing Coil Jsoft 45cm - [id number] Implanted:Qty: 1 on 05/10/2024 at [facility] [employer] [id number] 09/30/2031 RBYP ODJ45 / / [id number] Azur Detachable 018 7mmx 24cm - [id number] Implanted:Qty: 1 on 05/10/2024 at [facility] TERCylande MARY [id number] 08/30/2028 [id number] / / [id number] Pod Packing Coil Jsoft 45cm - [id number] Implanted:Qty: 1 on 05/10/2024 at [facility] [employer] [id number] 12/26/2031 RBYP ODJ45 / / [id number] Coil Radha Soft 9ovx46fp - [id number] Implanted:Qty: 1 on 05/10/2024 at [facility] [employer] [id number] 10/07/2031 RBY4 C0835 / / [id number] documented as of this encounter Advance Directives [...] Care Agent (per Health Care Power of Mammography Supervisor document) Care Teams Milk And Cream Grader Relationship Specialty Start Date End Date Jolynn October Raul, PARachidC [address] [place] [address] PCP - General Physician Master [place] 04/10/24 documented as of this encounter
--- OUTSIDE RECORDS SUMMARY | 2024-08-21 00:22 | External Medical Summary | Summary of Care ---
Author Name Unknown Organization [facility] Address [address] [place] [address] Phone [phone] Care Team Providers Care Paper Products Inspector Name Role Phone Rina Neil PA-C Primary Care Provider [phone] Encounter Details Date Type Department Care Team (Late st Contact Info) Description 05/27/2024 Telephone Hematology/Oncology, [facility] 400 [place] [address] Sari Holder MD [address] [place] [address] Allergies Active Allergy Reactions Criticality [...] Peña LPN - 05/28/2024 11:27 AM EDT [facility]. Info sent to Leeanne to schedule appt. * Telephone Encounter - Silvia Hanks RN - 05/28/2024 8:37 AM EDT His appointment with IR will need to be set up by GI. Can be scheduled to coordinate with [facility] IR. Albumin infusion after paracentesis, 3 hour infusion time. * Telephone Encounter - Erica Peña LPN - 05/27/2024 4:22 PM EDT I spoke to Santiago earlier and informed him that [facility] cannot schedule for 2 weeks d/t lack of staff. He chose to have this done in [facility]. * Telephone Encounter - Silvia Hanks [...] Note that pt states he wants at [facility], please advise where he will receive the Albumin. Thank you documented in this encounter Plan of Treatment Upcoming Encounters Date Type Department Care Team (Late st Contact Info) Description 05/29/2024 12:40 PM EDT Office Visit [address] [place] [address] Rina Neil PA-C [address] [place] [address] 07/03/2024 10:00 AM EST Office Visit [facility] [place] 200 [facility] [place] [address] Rina Neil PA-C [address] [place] [address] 08/27/2024 10:20 AM EST Office Visit Hepatology, [facility] 132 [facility] [address] Sari Holder MD 310 [facility] [place] [address] 01/13/2025 1:45 PM EDT Imaging Radiology [facility] 132 [facility] [place] [address] 01/16/2025 3:00 PM EDT Office Visit Urology, [place] [address] [place] [address] Brianna Segovia PA-C [address] [place] [address] Health Maintenance Due Date Last Done Comments DISCUSS TOBACCO CESSATION (REFER TO SMARTSET #4298) 1972 Lipid Panel 1972 Pneumococcal Vaccine: Pediatrics [...] this encounter Medical Devices Implanted Type Area Mining Technician Device Identifier Shelf Expiration Date Model / Serial / Lot Pod Packing Coil Jsoft 45cm - [id number] Implanted:Qty: 1 on 05/10/2024 at [facility] [employer] [id number] 09/30/2031 RBYP ODJ45 / / [id number] Azur Detachable 018 7mmx 24cm - [id number] Implanted:Qty: 1 on 05/10/2024 at [facility] T[employer] MARY [id number] 08/30/2028 [id number] / / [id number] Pod Packing Coil Jsoft 45cm - [id number] Implanted:Qty: 1 on 05/10/2024 at [facility] [employer] [id number] 12/26/2031 RBYP ODJ45 / / [id number] Coil Radha Soft 1apn77qa - [id number] Implanted:Qty: [facility] [id number] 10/07/2031 RBY4 C0835 / / [id number] documented as of this encounter Advance Directives [...] Care Agent (per Health Care Power of Asset Accountant document) Care Teams Paper Products Inspector Relationship Specialty Start Date End Date Jolynn October SHAQ Carter [address] [place] [address] PCP - General Physician Base Remover 04/10/24 documented as of this encounter
--- OUTSIDE RECORDS SUMMARY | 2024-08-21 00:23 | External Medical Summary | Summary of Care ---
Author Name Unknown Organization [facility] Address [address] [facility] [place] [address] Phone [phone] Care Team Providers Care Telesales Professional Name Role Phone Rina Neil PA-C Primary Care Provider [phone] Reason for Visit * Reason Onset Date Comments No Show 05/23/2024 [facility] No Show Auto mation Encounter Details Date Type Department Care Team (Late st Contact Info) Description 05/23/2024 Telephone Family Practice [facility] 200 [facility] [place] [address] Lan Gilliland III, MD 200 [place] [address] No Show ([place] No Show Automation) Allergies Active Allergy Reactions Criticality Noted Date Comments Penicillins Unknown 08/09/2023 documented as of this encounter (statuses as of 05/23/2024) Medications Medication Sig Dispensed Refills Start Date [...] as of this encounter (statuses as of 05/23/2024) Active Problems Problem Noted Date Diagnosed Date 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 GRACIELA (acute kidney injury) 05/10/2024 GAVE (gastric antral vascular ectasia) Severe protein-energy malnutrition 05/10/2024 Kidney disease, chronic, stage IV (GFR 15-29 ml/ min) 04/08/2024 Overview: Per CKD protocol Alcoholic cirrhosis 12/19/2023 Ascites due to alcoholic cirrhosis 12/19/2023 COPD, 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 If you haven't already rescheduled, you have a couple of options: Reschedule in [employer]/Pretty P[employer] Room/scheduling Call us at [phone] Can't make a future appointment? Cancel and let someone else have your spot! It's easy to do via [employer] or by calling us. Thanks for trusting [facility] [employer] with your care. We hope to see you back in our office soon. Sincerely, LAN GILLILAND III documented in this encounter Plan of Treatment Upcoming Encounters Date Type Department Care Team (Late st Contact Info) Description 05/27/2024 12:00 PM EDT Office Visit [facility] 200 [facility] [place] [address] Rina Neil PA-C 200 [facility] [place] [address] 07/03/2024 10:00 AM EST Office Visit [facility] 200 [facility] [place] [address] Rina Neil PA-C 200 [facility] [place] [place] [address] 08/27/2024 10:20 AM EST Office Visit Hepatology, [facility] 132 [facility] [place] [address] Sari Holder MD [address] [place], [place] [address] [address] 01/13/2025 1:45 PM EDT Imaging Radiology [facility] 132 [facility] [place] [address] 01/16/2025 3:00 PM EDT Office Visit Urology, [place] [address] [place] [address] Brianna Segovia PA-C [address] [place], [place] [phone] Health Maintenance Due Date Last Done Comments DISCUSS TOBACCO CESSATION (REFER TO SMARTSET #5120) 1972 Lipid Panel 1972 Pneumococcal Vaccine: Pediatrics [...] this encounter Medical Devices Implanted Type Area Precision Aircraft Systems Assembler Device Identifier Shelf Expiration Date Model / Serial / Lot Pod Packing Coil Jsoft 45cm - [id number] Implanted:Qty: 1 on 05/10/2024 at [facility] [employer] [id number] 09/30/2031 RBYP ODJ45 / / [id number] Azur Detachable 018 7mmx 24cm - [id number] Implanted:Qty: 1 on 05/10/2024 at [facility] [employer] MARY [id number] 08/30/2028 [id number] / / [id number] Pod Packing Coil Jsoft 45cm - [id number] Implanted:Qty: 1 on 05/10/2024 at [facility] [employer] [id number] 12/26/2031 RBYP ODJ45 / / [id number] Coil Radha Soft [id number] - [id number] Implanted:Qty: 1 on 05/10/2024 at [facility] [employer] [id number] 10/07/2031 RBY4 C0835 / / [id number] documented as of this encounter Advance Directives [...] Care Agent (per Health Care Power of Tobacco Checkout Clerk document) Care Teams Telesales Professional Relationship Specialty Start Date End Date Mary Jooctober SHAQ Carter [address] [place] [address] PCP - General Physician Client Solutions Specialist 04/10/24 documented as of this encounter
--- OUTSIDE RECORDS SUMMARY | 2024-08-21 00:23 | External Medical Summary | Summary of Care ---
Author Name Unknown Organization [facility] Address [address] [place] [address] Phone [phone] Care Team Providers Care Cutter And Paster Press Clippings Name Role Phone Jolynn Rina Carter PA-C Primary Care Provider [phone] Reason for Visit * Reason Onset Date Comments Advice 05/24/2024 Encounter Details Date Type Department Care Team (Late st Contact Info) Description 05/24/2024 Telephone Gastroenterology, [address] [address] Sari Holder MD [address] [place] [address] Advice Allergies Active Allergy Reactions Criticality Noted Date Comments Penicillins Unknown 08/09/2023 documented as of this encounter (statuses as of 05/27/2024) Medications Medication Sig Dispensed Refills Start Date [...] as of this encounter (statuses as of 05/27/2024) Active Problems Problem Noted Date Diagnosed Date 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 GRACIELA (acute kidney injury) 05/10/2024 GAVE (gastric antral vascular ectasia) Severe protein-energy malnutrition 05/10/2024 Kidney disease, chronic, stage IV (GFR 15-29 ml/ min) 04/08/2024 Overview: Per CKD protocol Alcoholic cirrhosis 12/19/2023 Ascites due to alcoholic cirrhosis 12/19/2023 COPD, 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 Order is by an internal med provider. Can we use this order to initiate scheduling at [facility] or should we do a new [...] Description 05/29/2024 12:40 PM EDT Office Visit [facility] Wong Menchaca [address] [place], [place] [address] Rina Neil PA-C 200 [facility] [place] [address] 07/03/2024 10:00 AM EST Office Visit Family Practice [facility] 200 [facility] [place] [address] Rina Neil PA-C 200 [facility] [place] [address] 08/27/2024 10:20 AM EST Office Visit Hepatology, [facility] 132 [place] [address] Sari Holder MD [address] [place], [place] [address] [address] 01/13/2025 1:45 PM EDT Imaging Radiology [facility] [address] 01/16/2025 3:00 PM EDT Office Visit Urology, [place] [address] [place] [address] Brianna Segovia PA-C [address] [place], [place] [phone] Health Maintenance Due Date Last Done Comments DISCUSS TOBACCO CESSATION (REFER TO SMARTSET #1676) 1972 Lipid Panel 1972 Pneumococcal Vaccine: Pediatrics [...] this encounter Medical Devices Implanted Type Area Stone Setter Metal Optical Frames Device Identifier Shelf Expiration Date Model / Serial / Lot Pod Packing Coil Jsoft 45cm - [id number] Implanted:Qty: 1 on 05/10/2024 at [facility] [employer] [id number] 09/30/2031 RBYP ODJ45 / / [id number] Azur Detachable 018 7mmx 24cm - [id number] Implanted:Qty: 1 on 05/10/2024 at [facility] [place] [place] [employer] [place] MARY [id number] 08/30/2028 [id number] / / [id number] Pod Packing Coil Jsoft 45cm - [id number] Implanted:Qty: 1 on 05/10/2024 at [facility] [employer] [id number] 12/26/2031 RBYP ODJ45 / / [id number] Coil Radha Soft 6pye46hq - [id number] Implanted:Qty: 1 on 05/10/2024 at [facility] KHADIJAH RODRIGEZ [id number] 10/07/2031 RBY4 C0835 / / [id number] documented as of this encounter Visit Diagnoses [...] Care Agent (per Health Care Power of Ethylbenzene Converter Operator document) Care Teams Cutter And Paster Press Clippings Relationship Specialty Start Date End Date Mary Jooctober SHAQ Carter [address] [place] [address] PCP - General Physician Rat Trapper 04/10/24 documented as of this encounter
--- OUTSIDE RECORDS SUMMARY | 2024-08-21 00:23 | External Medical Summary | Summary of Care ---
Author Name Unknown Organization [facility] Address [address] [place] [address] Phone [phone] Care Team Providers Care Beam Machine Operator Name Role Phone Jolynn Rina Carter PA-C Primary Care Provider [phone] Reason for Visit * Reason Onset Date Comments Advice 05/24/2024 Encounter Details Date Type Department Care Team (Late st Contact Info) Description 05/24/2024 Telephone Gastroenterology, [address] [address] Victorino Mark MD [address] [place] [address] Advice Allergies Active Allergy Reactions Criticality [...] like to have routine paracenteses done at [facility] ([facility]xim[facility]) Dr Mark, there is an standing order in for this to be done every 2 weeks. Order is by an internal med provider. Can we use this order to initiate scheduling at [facility] or should we do a new orderunder [...] Description 05/29/2024 12:40 PM EDT Office Visit [facility] 200 [facility] [place] [address] Rina Neil PA-C 200 [facility] [place] [address] 07/03/2024 10:00 AM EST Office Visit [facility] 200 [facility] [place] [address] Rina Neil PA-C 200 [facility] [place] [address] 08/27/2024 10:20 AM EST Office Visit Hepatology, [facility] 132 [facility] [place] [address] Victorino Mark MD [address] [place] [address] 01/13/2025 1:45 PM EDT Imaging Radiology [facility] 132 [facility] [place] [address] 01/16/2025 3:00 PM EDT Office Visit [facility], [place] [facility] [phone] Brianna Segovia PA-C [address] [facility] [place] [phone] Health Maintenance Due Date Last Done Comments DISCUSS TOBACCO CESSATION (REFER TO SMARTSET #9509) 1972 Lipid Panel 1972 Pneumococcal Vaccine: Pediatrics [...] encounter Medical Devices Implanted Type Area Surgical Territory Manager Device Identifier Shelf Expiration Date Model / Serial / Lot Pod Packing Coil Jsoft 45cm - [id number] Implanted:Qty: 1 on 05/10/2024 at [facility] KHADIJAH RODRIGEZ [id number] 09/30/2031 RBYP ODJ45 / / [id number] Azur Detachable 018 7mmx 24cm - [id number] Implanted:Qty: 1 on 05/10/2024 at [facility] [employer] MARY [id number] 08/30/2028 [id number] / / [id number] Pod Packing Coil Jsoft 45cm - [id number] Implanted:Qty: 1 on 05/10/2024 at [facility] [employer] [id number] 12/26/2031 RBYP ODJ45 / / [id number] Coil Radha Soft [id number] - [id number] Implanted:Qty: 1 on 05/10/2024 at [facility] [employer] [id number] 10/07/2031 RBY4 C0835 / / [id number] documented as of this encounter Visit Diagnoses [...] Care Agent (per Health Care Power of Vehicle Washer document) Care Teams Beam Machine Operator Relationship Specialty Start Date End Date JolynnOctober SHAQ Carter [facility] [place] [address] PCP - General Physician Client Manager Large Law 04/10/24 documented as of this encounter
--- OUTSIDE RECORDS SUMMARY | 2024-08-21 00:23 | External Medical Summary | Summary of Care ---
Author Name Unknown Organization [facility] Address [address] [place] [address] Phone [phone] Care Team Providers Care Reference Archivist Name Role Phone Jolynn Rina Carter PA-C Primary Care Provider [phone] Reason for Visit * Reason Onset Date Comments Advice 05/24/2024 Encounter Details Date Type Department Care Team (Late st Contact Info) Description 05/24/2024 Telephone Gastroenterology, [address] [address] Sari Holder MD [address] [place] [address] Advice Allergies Active Allergy Reactions Criticality [...] check that they were not drawn at [facility]) Is patient on blood thinners?no If [...] like to have routine paracenteses done at [facility] ([facility]) Dr Holder, there is an standing order in for this to be done every 2 weeks. Order is by an internal med provider. Can we use this order to initiate scheduling at [facility] or should we do a new orderunder [...] Description 05/29/2024 12:40 PM EDT Office Visit [facility] Wong Menchaca [address] [place], [place] [address] Rina Neil PA-C 200 [facility] [place] [address] 07/03/2024 10:00 AM EST Office Visit Family Practice [facility] 200 [facility] [place] [address] Rina Neil PA-C 200 [facility] [place] [address] 08/27/2024 10:20 AM EST Office Visit Hepatology, [facility] 132 [place] [address] Sari Holder MD [address] [place], [place] [address] [address] 01/13/2025 1:45 PM EDT Imaging Radiology [facility] 132 [facility] [address] 01/16/2025 3:00 PM EDT Office Visit Urology, [place] [address] [place] [address] Brianna Segovia PA-C [address] [place], [place] [phone] Health Maintenance Due Date Last Done Comments DISCUSS TOBACCO CESSATION (REFER TO SMARTSET #4188) 1972 Lipid Panel 1972 Pneumococcal Vaccine: Pediatrics [...] this encounter Medical Devices Implanted Type Area Ui Lead Developer Device Identifier Shelf Expiration Date Model / Serial / Lot Pod Packing Coil Jsoft 45cm - [id number] Implanted:Qty: 1 on 05/10/2024 at [facility] [employer] [id number] 09/30/2031 RBYP ODJ45 / / [id number] Azur Detachable 018 7mmx 24cm - [id number] Implanted:Qty: 1 on 05/10/2024 at [facility] [employer] [place] MARY [id number] 08/30/2028 [id number] / / [id number] Pod Packing Coil Jsoft 45cm - [id number] Implanted:Qty: 1 on 05/10/2024 at [facility] [employer] [id number] 12/26/2031 RBYP ODJ45 / / [id number] Coil Radha Soft [id number] - [id number] Implanted:Qty: 1 on 05/10/2024 at [facility] KHADIJAH RODRIGEZ [id number] 10/07/2031 RBY4 C0835 / / [id number] documented as of this encounter Visit Diagnoses [...] Care Agent (per Health Care Power of Printing Press Operator Apprentice document) Care Teams Reference Archivist Relationship Specialty Start Date End Date Mary Jooctober SHAQ Carter [address] [place] [address] PCP - General Physician Rotary Derrick Operator 04/10/24 documented as of this encounter
--- OUTSIDE RECORDS SUMMARY | 2024-08-21 00:23 | External Medical Summary | Summary of Care ---
Author Name Unknown Organization [facility] Address [address] [facility] [place] [address] Phone [phone] Care Team Providers Care Management Trainee Marketing Name Role Phone Rina Neil PA-C Primary Care Provider [phone] Encounter Details Date Type Department Care Team (Late st Contact Info) Description 05/27/2024 Orders Only Hematology/Oncology Treatment, [facility] [address] [place], [place] [phone] Sari Holder MD [address] [place] [address] New orders received, plan built [...] of this encounter Progress Notes * Silvia aHnks RN - 05/27/2024 4:10 PM EDT New orders received, plan built and sent for signature. documented in this encounter Plan of Treatment Upcoming Encounters Date Type Department Care Team (Late st Contact Info) Description 05/29/2024 12:40 PM EDT Office Visit [facility] 200 [facility] [place] [place] [address] Rina Neil PA-C [address] [place] [address] 07/03/2024 10:00 AM EST Office Visit [facility] [address] [place] [address] Rina Neil PA-C [address] [facility] [place] [address] 08/27/2024 10:20 AM EST Office Visit Hepatology, [facility] 132 [place] [address] Sari Holder MD [address] [place] [address] 01/13/2025 1:45 PM EDT Imaging Radiology [facility] 132 [place] [address] 01/16/2025 3:00 PM EDT Office Visit Urology, [place] [address] [place] [address] Brianna Segovia PA-C [address] [place] [address] Health Maintenance Due Date Last Done Comments DISCUSS TOBACCO CESSATION (REFER TO SMARTSET #1211) 1972 Lipid Panel 1972 Pneumococcal Vaccine: Pediatrics [...] this encounter Medical Devices Implanted Type Area Six Pack Loader Operator Device Identifier Shelf Expiration Date Model / Serial / Lot Pod Packing Coil Jsoft 45cm - [id number] Implanted:Qty: 1 on 05/10/2024 at [facility] [employer] [id number] 09/30/2031 RBYP ODJ45 / / [id number] Azur Detachable 018 7mmx 24cm - [id number] Implanted:Qty: 1 on 05/10/2024 at [facility] TER[employer]OLED MARY [id number] 08/30/2028 [id number] / / [id number] Pod Packing Coil Jsoft 45cm - [id number] Implanted:Qty: 1 on 05/10/2024 at [facility] KHADIJAH RODRIGEZ [id number] 12/26/2031 RBYP ODJ45 / / [id number] Coil Radha Soft [id number] - [id number] Implanted:Qty: 1 on 05/10/2024 at [facility] KHADIJAH RODRIGEZ [id number] 10/07/2031 RBY4 C0835 / / [id number] documented as of this encounter Advance Directives [...] Care Agent (per Health Care Power of Assembler Lay Ups document) Care Teams Management Trainee Marketing Relationship Specialty Start Date End Date Mary Jooctober SHAQ Carter [address] [place], [place] [address] PCP - General Physician Power Ballast Machine Operator 04/10/24 documented as of this encounter
--- OUTSIDE RECORDS SUMMARY | 2024-08-21 00:23 | External Medical Summary | Summary of Care ---
Author Name Unknown Organization [facility] Address [address] [place] [address] Phone [phone] Care Team Providers Care Pattern Worker Name Role Phone Rina Neil PA-C Primary Care Provider [phone] Reason for Visit * Reason Comments Pre-Transplant Evaluation Encounter Details Date Type Department Care Team (Late st Contact Info) Description 05/10/2024 Documentation Transplant Clinic, [place] [address] [place] [address] Marlene Desai LSW [address] [place] [address] Allergies Active Allergy Reactions Criticality Noted Date Comments Penicillins Unknown 08/09/2023 documented as of this encounter (statuses as of 05/22/2024) Medications Medication Sig Dispensed Refills Start Date [...] as of this encounter (statuses as of 05/22/2024) Active Problems Problem Noted Date Diagnosed Date 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 GRACIELA (acute kidney injury) 05/10/2024 GAVE (gastric antral vascular ectasia) Severe protein-energy malnutrition 05/10/2024 Kidney disease, chronic, stage IV (GFR 15-29 ml/ min) 04/08/2024 Overview: Per CKD protocol Alcoholic cirrhosis 12/19/2023 Ascites due to alcoholic cirrhosis 12/19/2023 COPD, 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 documented as of this encounter (statuses as of 05/22/2024) Resolved Problems Problem Noted Date Diagnosed Date Resolved Date Upper GI bleed 05/09/2024 05/12/2024 documented as of this encounter (statuses as of 05/22/2024) Immunizations Name Administration Dates Next Due Seasonal [...] as of this encounter Progress Notes * Marlene Desai LSW - 05/22/2024 12:50 PM EDT Patient identified by verbal name and date of . BACKGROUND INFO DIAGNOSIS: Pre-Liver Transplant Evaluation PRESENT AT INTERVIEW: Patient only. 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 He reports no issues or concerns with his living arrangement. RELEVANT SOCIAL/FAMILY HISTORY: Patient reports he was born in [place] noting he was a " brat". He reports he has lived in multiple states. He has been at his current address for four to five months. His father and two sisters currently live close by, in [place]. He reports they are supportive and would be helpful after transplant. He has never been and he has no children. He reports he and Cheri have been together for about one year. She confirms her commitment to his health today while on the phone. CURRENT LEVEL OF FUNCTIONING: Patient was evaluated while in the hospital; however, he reports he is functionally independent at home. Cheri confirms same. EDUCATION: Patient reports he graduated from high school and reports he attended trade school for welding. EMPLOYMENT: Patient reports worked in various jobs. 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 He reports he has not worked since June 2024 when he was hospitalized with pneumonia and Dx with cirrhosis. SPOUSES EMPLOYMENT STATUS: N/A INCOME/FINANCIAL STATUS: Patient reports he has not had an income since he stopped working. He reports Cheri and his family have been helping him with his finances. INSURANCE COVERAGE/COPAY ISSUE: No issues noted on interview today. PREVIOUS TRANSPLANTS: None EMOTIONAL/PSYCHOLOGICAL PROFILE UNDERSTANDING OF ILLNESS/TRANSPLANT PROCESS: Mr. Amador was able to verbalize a fair understanding of his illness as well as the transplant process. BARRIERS TO LEARNING: No issues noted on interview today. Patient responds to written/verbal information. IMPRESSION: On interview today, patient is lying in his hospital bed, wearing hospital garb, appropriately groomed. He presents with euthymic mood and congruent affect. He is alert and oriented in all spheres and maintains good eye contact. His speech is of normal rate and tone and his thoughts are well organized. His mood remain stable and he is easy to engage. SOCIAL PROBLEMS IDENTIFIED PSYCHIATRIC ILLNESS: Denies and none noted. S/I- Denies H/I- Denies DRUG & ALCOHOL USE: Patient reports he began drinking at the age of [age]. He reports no one in his family is much of a drinker. He is unable to quantify his use but reports he used to drink "hard liquor, then, beer, then wine". He reports he switched from beer to wine when he found out he had cirrhosis noting the beer "tasted nasty". On 02-14-2024 he reported during a PCP's visit that he drank, "almost daily" and refused treatment for same on that day. On 03-15-2024 he reported abstinence and seemed to confirm same on 04-12-2024 when he reported his last drink was a month ago. On 04-27-2024, during a GI appointment, he reported he quit drinking, "a few weeks ago". On 05-10-2024, his PeTHwas still 39. The chart indicates three DUI's and patient reports he hasn't had a license for thirteen years. He reports he could get his license back if he were able to pay his fines. Patient reports he did attend treatment for AUD about eight years ago. He reports it was a 30 day inpatient stay at a facility in [place], [place]. He reports he remains sober for about one year after same. Cheri reports today that they have been living together since November. She reports he has been sick, "pretty much the whole time I have known him." She notes he has not had a drink since January. She reportsshe gave him an ultimatum to stop drinking or find another place to live. She report seem to have ahard time with quitting noting he just switched to drinking water. Her date does not quite coordinate with his report of his sobriety. MEDICAL NON-COMPLIANCE: Cheri reports patient takes all of his medication independently without issue. On review of EMR, patient has a significant history of No Show and cancelled appointments. 03-13-2024 [facility] Home Health indicated they could not admit the patient to service as they could not reach him by phone and, in fact, the Transplant Department had been trying to reach him to schedule outpatient pre-transplant evaluation and was also unable to do so. COPING SKILLS IDENTIFIED: Patient reports he enjoys roller skating and spending time at [employer], a local [employer]. Durable Healthcare Power of Division Order Technician discussed; information provided. SOCIAL WORK ASSESSMENT/RECOMMENDATION: Social Support: Low - Good support, stable committed relationship; caregiver(s) able to provide assistance Financial/Insurance: Moderate - Limited resources and insurance; good cognitive ability to problem solve; motivation to seek employment post-transplant/remain employed; limited income to meet needs Compliance: High - Unable to self-manage; caregiver not available or unreliable; avoids medical treatment; high risk behaviors Functional Status: Low - Active; excercises; independent Cognitive function: Low - No evidences of cognitive decline/memory deficits; executive functions (ability to organize and follow through with new information) seem intact; no current/historical mental retardation/impairments in adaptive functioning; no current or historical alternative/adaptive learning plans; such as IEP Mental Health: Low - No current or past history of mental illness; No current symptoms; Intact mental status; No family history of mental illness; No past abuse, neglect, loss or other trauma Coping: Moderate - Presence of some healthy coping mechanisms; History of occassional difficulty coping with stress Substance Abuse: High - Alcohol or drug dependency within past 6 months; Recent dependency without SA treatment/lack of insight; Recent legal or other serious consequences related to substance abuse Legal Issues: Moderate - Unresolved/pending legal issues; previous DUI Understanding of Transplant process: Moderate - Some knowledge gaps or denial; generally good understanding Motivation for transplant: Low - Self-motivated for transplant as part of continuum of care Overall, per above, patient has a high psychosocial risk profile score and is a fair transplant candidate from a psychosocial perspective at this time. Marlene Desai LCSW Patient needs to be presented at Selection Conference within 3 months of this psychosocial evaluation. If there is a delay, additional Social Work consultation may be required. documented in this encounter Plan of Treatment Upcoming Encounters Date Type Department Care Team (Late st Contact Info) Description 05/27/2024 12:00 PM EDT Office Visit [facility] [address] [place] [address] Rina Neil PA-C [address] [place] [address] 07/03/2024 10:00 AM EST Office Visit [facility] [address] [place] [address] Rina Neil PA-C [address] [place] [address] 08/27/2024 10:20 AM EST Office Visit Hepatology, [facility] [address] [place] [address] Sari Holder MD [address] [facility] [place] [address] 01/13/2025 1:45 PM EDT Imaging Radiology [facility] [address] [place] [address] 01/16/2025 3:00 PM EDT Office Visit Urology, [place] [address] [place] [address] Brianna Segovia PA-C [address] [place], [place] [phone] Health Maintenance Due Date Last Done Comments DISCUSS TOBACCO CESSATION (REFER TO SMARTSET #9070) 1972 Lipid Panel 1972 Pneumococcal Vaccine: Pediatrics [...] this encounter Medical Devices Implanted Type Area Inspector Watch Parts Device Identifier Shelf Expiration Date Model / Serial / Lot Pod Packing Coil Jsoft 45cm - [id number] Implanted:Qty: 1 on 05/10/2024 at [facility] [id number] 09/30/2031 RBYP ODJ45 / / [id number] Azur Detachable 018 7mmx 24cm - [id number] Implanted:Qty: 1 on 05/10/2024 at [facility] [employer] Vacc[employer] MARY [id number] 08/30/2028 [id number] / / [id number] Pod Packing Coil Jsoft 45cm - [id number] Implanted:Qty: 1 on 05/10/2024 at [facility] [id number] 12/26/2031 RBYP ODJ45 / / [id number] Coil Radha Soft [id number] - [id number] Implanted:Qty: 1 on 05/10/2024 at [facility] [id number] 10/07/2031 RBY4 C0835 / / [id number] documented as of this encounter Advance Directives [...] Care Agent (per Health Care Power of Division Order Technician document) Care Teams Pattern Worker Relationship Specialty Start Date End Date JolynnOctober SHAQ Carter 200 [facility] [place] [address] PCP - General Physician Chemical Processing Equipment Repairer 04/10/24 documented as of this encounter
--- OUTSIDE RECORDS SUMMARY | 2024-08-21 00:23 | External Medical Summary | Summary of Care ---
Author Name Unknown Organization [facility] Address [address] [place] [address] Phone [phone] Care Team Providers Care Computer Sciences Professor Name Role Phone Jolynn Rina Carter PA-C Primary Care Provider [phone] Reason for Visit * Reason Onset Date Comments Advice 05/24/2024 Encounter Details Date Type Department Care Team (Late st Contact Info) Description 05/24/2024 Telephone Gastroenterology, [address] [address] Sari Holder MD [address] [place] [address] Advice Allergies Active Allergy Reactions Criticality [...] like to have routine paracenteses done at [facility] ([facility]) Dr Holder, there is an standing order in for this to be done every 2 weeks. Order is by an internal med provider. Can we use this order to initiate scheduling at [facility] or should we do a new orderunder [...] Description 05/29/2024 12:40 PM EDT Office Visit [facility] [address] [facility] [place] [address] Rina Neil PA-C [address] [facility] [place] [address] 07/03/2024 10:00 AM EST Office Visit [facility] [address] [place] [address] Rina Neil PA-C [address] [place] [address] 08/27/2024 10:20 AM EST Office Visit Hepatology, [facility] [address] [place] [address] Sari Holder MD [address] [facility] [place] [address] 01/13/2025 1:45 PM EDT Imaging Radiology [facility] [address] [place] [address] 01/16/2025 3:00 PM EDT Office Visit Urology, [place] [address] [place] [address] Brianna Segovia PA-C [address] [place] [address] Health Maintenance Due Date Last Done Comments DISCUSS TOBACCO CESSATION (REFER TO SMARTSET #1559) 1972 Lipid Panel 1972 Pneumococcal Vaccine: Pediatrics [...] this encounter Medical Devices Implanted Type Area Analog Design Engineer Device Identifier Shelf Expiration Date Model / Serial / Lot Pod Packing Coil Jsoft 45cm - [id number] Implanted:Qty: 1 on 05/10/2024 at [facility] [id number] 09/30/2031 RBYP ODJ45 / / [id number] Azur Detachable 018 7mmx 24cm - [id number] Implanted:Qty: 1 on 05/10/2024 at [facility] [employer] [id number] 08/30/2028 [id number] / / [id number] Pod Packing Coil Jsoft 45cm - [id number] Implanted:Qty: 1 on 05/10/2024 at [facility] [employer] [id number] 12/26/2031 RBYP ODJ45 / / [id number] Coil Radha Soft [id number] - [id number] Implanted:Qty: 1 on 05/10/2024 at [facility] [employer] [id number] 10/07/2031 RBY4 C0835 / / [id number] documented as of this encounter Visit Diagnoses Diagnosis Other cirrhosis of liver (HCC)- Primary Other ascites documented in this encounter Advance Directives * [...] Care Agent (per Health Care Power of Trimming Cutter Machine document) Care Teams Computer Sciences Professor Relationship Specialty Start Date End Date Jolynn October SHAQ Carter [address] [facility] [place] [address] PCP - General Physician Manufacturing Project Manager 04/10/24 documented as of this encounter
--- OUTSIDE RECORDS SUMMARY | 2024-08-21 00:23 | External Medical Summary | Summary of Care ---
Author Name Unknown Organization [facility] Address [address] [place] [address] Phone [phone] Care Team Providers Care Brass Finisher Name Role Phone Jolynn Rina Carter PA-C Primary Care Provider [phone] Reason for Visit * Reason Onset Date Comments Advice 05/24/2024 Encounter Details Date Type Department Care Team (Late st Contact Info) Description 05/24/2024 Telephone Gastroenterology, [address] [address] Sari Holder MD [address] [place] [address] Advice Allergies Active Allergy Reactions Criticality Noted Date Comments Penicillins Unknown 08/09/2023 documented as of this encounter (statuses as of 05/24/2024) Medications Medication Sig Dispensed Refills Start Date [...] as of this encounter (statuses as of 05/24/2024) Active Problems Problem Noted Date Diagnosed Date 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 GRACIELA (acute kidney injury) 05/10/2024 GAVE (gastric antral vascular ectasia) Severe protein-energy malnutrition 05/10/2024 Kidney disease, chronic, stage IV (GFR 15-29 ml/ min) 04/08/2024 Overview: Per CKD protocol Alcoholic cirrhosis 12/19/2023 Ascites due to alcoholic cirrhosis 12/19/2023 COPD, 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 documented as of this encounter (statuses as of 05/24/2024) Resolved Problems Problem Noted Date Diagnosed Date Resolved Date Upper GI bleed 05/09/2024 05/12/2024 documented as of this encounter (statuses as of 05/24/2024) Immunizations Name Administration Dates Next Due Seasonal [...] encounter Miscellaneous Notes * Telephone Encounter - Mariela De Dios RN - 05/24/2024 12:38 PM EDT Spoke to Cheri, patient's roommate, with patient in background. They would like to have routine paracenteses done at [facility] ([facility]) Dr Holder, there is an standing order in for this to be done every 2 weeks. Order is by an internal med provider. Can we use this order to initiate scheduling at [facility] or should we do a new [...] Description 05/27/2024 12:00 PM EDT Office Visit [facility] 200 [place] [address] Rina Neil PA-C [address] [place] [address] 07/03/2024 10:00 AM EST Office Visit [facility] [address] [place] [address] Rina Neil PA-C [address] [place] [address] 08/27/2024 10:20 AM EST Office Visit Hepatology, [facility] 132 [facility] [place] [address] Sari Holder MD [address] [place], [place] [address] [address] 01/13/2025 1:45 PM EDT Imaging Radiology [facility] 132 [facility] [place] [address] 01/16/2025 3:00 PM EDT Office Visit Urology, [place] [address] [place] [address] Brianna Segovia PA-C [address] [place], [place] [phone] Health Maintenance Due Date Last Done Comments DISCUSS TOBACCO CESSATION (REFER TO SMARTSET #6134) 1972 Lipid Panel 1972 Pneumococcal Vaccine: Pediatrics [...] this encounter Medical Devices Implanted Type Area Storage Consultant Device Identifier Shelf Expiration Date Model / Serial / Lot Pod Packing Coil Jsoft 45cm - [id number] Implanted:Qty: 1 on 05/10/2024 at [facility] [id number] 09/30/2031 RBYP ODJ45 / / [id number] Azur Detachable 018 7mmx 24cm - [id number] Implanted:Qty: 1 on 05/10/2024 at [facility] [employer] [id number] 08/30/2028 [id number] / / [id number] Pod Packing Coil Jsoft 45cm - [id number] Implanted:Qty: 1 on 05/10/2024 at [facility] [facility] [id number] 12/26/2031 RBYP ODJ45 / / [id number] Coil Radha Soft [id number] - [id number] Implanted:Qty: 1 on 05/10/2024 at [facility] [employer] [id number] 10/07/2031 RBY4 C0835 / / [id number] documented as of this encounter Advance Directives [...] Agent (per Health Care Power of Can Filling Room Sweeper document) Care Teams Brass Finisher Relationship Specialty Start Date End Date Jolynn October SHAQ Carter [address] [place] [address] [place] [address] PCP - General Physician [id number] Tank Crewman 04/10/24 documented as of this encounter
--- OUTSIDE RECORDS SUMMARY | 2024-08-21 00:23 | External Medical Summary | Summary of Care ---
Author Name Unknown Organization [facility] Address [address] [facility] [place] [address] Phone [phone] Care Team Providers Care Vp Strategy Name Role Phone Rina Neil PA-C Primary Care Provider [phone] Reason for Visit * Reason Onset Date Comments Hospital Follow-Up 05/13/2024 [place] for [facility] Encounter Details Date Type Department Care Team (Late st Contact Info) Description 05/13/2024 Telephone Ancillary [facility] [place] [address] [place] [address] Gabbie Manjarrez, DARRIAN Hospital Follow-Up (CAROLINE for [facility]/) Allergies Active Allergy Reactions Criticality Noted Date Comments Penicillins Unknown 08/09/2023 documented as of this encounter (statuses as of 05/21/2024) Medications Medication Sig Dispensed Refills Start Date [...] by mouth in the morning. 04/02/2024 Active Doxepin HCl 6 MG Oral Tablet (Silenor) Take 6 mg by mouth at bedtime as needed for Insomnia. 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 GRACIELA (acute kidney injury) 05/10/2024 GAVE (gastric antral vascular ectasia) Severe protein-energy malnutrition 05/10/2024 Kidney disease, chronic, stage IV (GFR 15-29 ml/ min) 04/08/2024 Overview: Per CKD protocol Alcoholic cirrhosis 12/19/2023 Ascites due to alcoholic cirrhosis 12/19/2023 COPD, 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 documented as of this encounter (statuses as of 05/21/2024) Resolved Problems Problem Noted Date Diagnosed Date Resolved Date Upper GI bleed 05/09/2024 05/12/2024 documented as of this encounter (statuses as of 05/21/2024) Immunizations Name Administration Dates Next Due Seasonal [...] Encounter - Fadi Cole III, MD - 05/21/2024 11:24 AM EDT Transitions of Care Note Reason for Referral:Recent Admission Phone visit for follow up: caroline Admitted to: [facility] , Date: 05.09.24 Discharged to: home, Date: 05.12.24 Diagnosis driving hospitalization: upper GI bleed transferred from [facility] on 05/09/24 from [facility] for IR/TIPS evaluation Transplant surgery evaluated patient during hospitalization, noting that he would be a poor surgical candidate for liver transplant at this time, especially in the setting of poor social support structure. Operations & Procedures: IR Embolization with coiling of duodenal varices. Also received IR indwelling pigtail catheter for ascitic drainage Source/Contact: Patient and roommate Cheri SUBJECTIVE Consent: Verbal consent for review of hospital discharge: Yes REVIEW OF SYSTEMS Patient/Other Reports: Current patient/caregiver problems or concerns: doing better but feels "like I was in a fight" CV: Denies problems Pulmonary: Denies problems Chills/Sweats/Fever:Denies chills/sweats Denies fever Appetite:Denies problems such as nausea, vomiting, burning, decreased appetite Current diet: High protein diet (120g of protein per day) with less than 2g of salt per day Bowel: denies problems Bladder: denies problems Wound (If applicable): Site-are bandaged, no bleeding noted Pain:Denies Sleep:Denies problems FUNCTIONAL STATUS: ADL'S: Needs Assistance With:N/A as pt is independent IADL'S: Needs Assistance With:N/A as pt is independent Cognitive and Mental Health: denies problems, alert and oriented x 3, and able to communicate, understand instructions, process information. MEDICATION RECONCILIATION Medications: reviewed meds and patient was encouraged to bring a list of meds. Patient states he was never on protonix, and never taken the constulose OBJECTIVE ASSESSMENT Medication Risk Assessment: patient unsure of a lot of meds, patient also states he was never having problems with sleep and never on doxepin Did patient fail outpatient treatment? No Discharge instructions available for review? Yes PLAN Symptom Monitoring Interventions:Member/caregiver education - signs and symptoms to contact PrimaryCare (DO NOT DELETE-Three ramirez symptoms patient is to report to PCP) 1. Worsening abd pain 2. Increased ascites 3. Sob/chest pain School Plant ConsultantFloor Manager of Care interventions/Action Plan: 5 - 7 day follow-up with PCP in place - Date: 05.20.[address] Cole Educated on role of CAROLINE completed with patient/caregiver. Educated patient/caregiver on patient right to have input on CAROLINE plan of care. Verification of Home Health/DME if indicated: NO Identified Care Gaps: Yes Care Gaps closed this call: Transition of Care follow-up communication Re-evaluation of Plan of Care and progress towards goals achievement: Patient education this visit: Verbal, patient to bring a list of meds to appointment, patient would like to discuss Plan Will need scheduled paracenteses every other week Follow-up with Transplant surgery for ongoing transplant eval Needs colonoscopy (FHx of Colorectal CA & per age health maintenance) Needs pre-operative echocardiogram for transplant evaluation Gabbie Manjarrez RN * Telephone Encounter - Gabbie Manjarrez RN - 05/14/2024 11:48 AM EDT Transitions of Care Note Reason for Referral:Recent Admission Phone visit for follow up: caroline Admitted to: [facility] , Date: 05.09.24 Discharged to: home, Date: 05.12.24 Diagnosis driving hospitalization: upper GI bleed transferred from [facility] on 05/09/24 from [facility] for IR/TIPS evaluation Transplant surgery evaluated patient during hospitalization, noting that he would be a poor surgical candidate for liver transplant at this time, especially in the setting of poor social support structure. Operations & Procedures: IR Embolization with coiling of duodenal varices. Also received IR indwelling pigtail catheter for ascitic drainage Source/Contact: Patient and roommate Cheri SUBJECTIVE Consent: Verbal consent for review of hospital discharge: Yes REVIEW OF SYSTEMS Patient/Other Reports: Current patient/caregiver problems or concerns: doing better but feels "like I was in a fight" CV: Denies problems Pulmonary: Denies problems Chills/Sweats/Fever:Denies chills/sweats Denies fever Appetite:Denies problems such as nausea, vomiting, burning, decreased appetite Current diet: High protein diet (120g of protein per day) with less than 2g of salt per day Bowel: denies problems Bladder: denies problems Wound (If applicable): Site-are bandaged, no bleeding noted Pain:Denies Sleep:Denies problems FUNCTIONAL STATUS: ADL'S: Needs Assistance With:N/A as pt is independent IADL'S: Needs Assistance With:N/A as pt is independent Cognitive and Mental Health: denies problems, alert and oriented x 3, and able to communicate, understand instructions, process information. MEDICATION RECONCILIATION Medications: reviewed meds and patient was encouraged to bring a list of meds. Patient states he was never on protonix, and never taken the constulose OBJECTIVE ASSESSMENT Medication Risk Assessment: patient unsure of a lot of meds, patient also states he was never having problems with sleep and never on doxepin Did patient fail outpatient treatment? No Discharge instructions available for review? Yes PLAN Symptom Monitoring Interventions:Member/caregiver education - signs and symptoms to contact PrimaryCare (DO NOT DELETE-Three ramirez symptoms patient is to report to PCP) 1. Worsening abd pain 2. Increased ascites 3. Sob/chest pain School Plant ConsultantFloor Manager of Care interventions/Action Plan: 5 - 7 day follow-up with PCP in place - Date: 05.20.[address] Cole Educated on role of CAROLINE completed with patient/caregiver. Educated patient/caregiver on patient right to have input on CAROLINE plan of care. Verification of Home Health/DME if indicated: NO Identified Care Gaps: Yes Care Gaps closed this call: Transition of Care follow-up communication Re-evaluation of Plan of Care and progress towards goals achievement: Patient education this visit: Verbal, patient to bring a list of meds to appointment, patient would like to discuss Plan Will need scheduled paracenteses every other week Follow-up with Transplant surgery for ongoing transplant eval Needs colonoscopy (FHx of Colorectal CA & per age health maintenance) Needs pre-operative echocardiogram for transplant evaluation Gabbie Manjarrez RN * Telephone Encounter - Gabbie Manjarrez RN - 05/13/2024 3:17 PM EDT Transitions of Care Note Reason for Referral:Recent Admission Phone visit for follow up: caroline Admitted to: [facility] , Date: 05.09.24 Discharged to: home, Date: 05.12.24 Diagnosis driving hospitalization: upper GI bleed transferred from [facility] on 05/09/24 from [facility] for IR/TIPS evaluation Transplant surgery evaluated patient during hospitalization, noting that he would be a poor surgical candidate for liver transplant at this time, especially in the setting of poor social support structure. Operations & Procedures: IR Embolization with coiling of duodenal varices. Also received IR indwelling pigtail catheter for ascitic drainage Source/Contact: Patient roommate Cheri Current diet: High protein diet (120g of protein per day) with less than 2g of salt per day Spoke to Cheri, patient roommate. I did leave message for patient to call me back to set up a HD appointment and to see how he was doing. She states he is doing ok, but sleeping . She states he did not sleep well in the hospital Gabbie Manjarrez, RN documented in this encounter Plan of Treatment Upcoming Encounters Date Type Department Care Team (Late st Contact Info) Description 05/22/2024 12:00 PM EDT Office Visit [facility] [address] [place] [address] Fadi Cole III, MD [address] [facility] [place] [address] 07/03/2024 10:00 AM EST Office Visit [facility] [address] [place] [address] Rina Neil PA-C [address] [facility] [place] [address] 08/27/2024 10:20 AM EST Office Visit Hepatology, [facility] [address] [facility] [facility] [place] [address] Sari Holder MD [address] [place] [address] [place] [address] 01/13/2025 1:45 PM EDT Imaging Radiology [facility] [address] [facility] [address] [facility] [place] [address] 01/16/2025 3:00 PM EDT Office Visit [facility]rology, [facility] [address] [facility] [address] Brianna Segovia PA-C [address] [facility] [place] [id number] Health Maintenance Due Date Last Done Comments DISCUSS TOBACCO CESSATION (REFER TO SMARTSET #[id number]) 1972 Lipid Panel 1972 Pneumococcal Vaccine: Pediatrics [...] this encounter Medical Devices Implanted Type Area Industrial Equipment Wirer Device Identifier Shelf Expiration Date Model / Serial / Lot Pod Packing Coil Jsoft 45cm - [id number] Implanted:Qty: 1 on 05/10/2024 at [facility] [employer] [id number] 09/30/2031 RBYP [id number] / / [id number] Azur Detachable 018 7mmx 24cm - [id number] Implanted:Qty: 1 on 05/10/2024 at [facility] [employer] [id number] 08/30/2028 [id number] / / [id number] Pod Packing Coil Jsoft 45cm - [id number] Implanted:Qty: 1 on 05/10/2024 at [facility] [employer] [id number] 12/26/2031 RBYP [id number] / / [id number] Coil Radha Soft 7htu35lb - [id number] Implanted:Qty: 1 on 05/10/2024 at [facility] [employer] [id number] 10/07/2031 RBY4 [id number] / / [id number] documented as of this encounter Advance Directives [...] Care Agent (per Health Care Power of Vibratory Pile Driver document) Care Teams Vp Strategy Relationship Specialty Start Date End Date Jolynn October SHAQ Carter [address] [place] [address] PCP - General Physician Assembly Line Machine Operator 04/10/24 documented as of this encounter
--- NOTE | 2024-08-21 00:37 | CT Scan Report ---
Exam(s): CT ABDOMEN + PELVIS Without Contrast EXAM: CT Abdomen and Pelvis Without Intravenous Contrast CLINICAL HISTORY: Reason for exam: liver disease, pain. TECHNIQUE: Axial computed tomography images of the abdomen and pelvis without intravenous contrast. CTDI is 26.03 mGy and DLP is 1426.17 mGy-cm. Automated exposure control was utilized for the study. A dose lowering technique was utilized adhering to the principles of ALARA. COMPARISON: No relevant prior studies available. FINDINGS: Lung bases: Unremarkable. No mass. No consolidation. Pleural space: Small left pleural effusion. Heart: Cardiomegaly. Visualization of the interventricular septum suggesting anemia. ABDOMEN: Liver: Hepatic cirrhosis. Gallbladder and bile ducts: Postoperative changes prior cholecystectomy and prior postoperative changes coil embolization of esophageal varices. No ductal dilation. Pancreas: Unremarkable. No ductal dilation. Spleen: Unremarkable. No splenomegaly. Adrenals: Unremarkable. No mass. Kidneys and ureters: Unremarkable. No obstructing stones. No hydronephrosis. Stomach and bowel: Unremarkable. No obstruction. No mucosal thickening. PELVIS: Appendix: No findings to suggest acute appendicitis. Bladder: Unremarkable. No stones. Reproductive: Unremarkable as visualized. ABDOMEN and PELVIS: Intraperitoneal space: Large abdominal volume of abdominal and pelvic ascites. No free air. Bones/joints: No acute fracture. No dislocation. Soft tissues: Diffuse anasarca. Vasculature: See above. Lymph nodes: Unremarkable. No enlarged lymph nodes. IMPRESSION: 1. Large abdominal volume of abdominal and pelvic ascites. 2. Small left pleural effusion. 3. Visualization of the interventricular septum suggesting anemia. Correlate clinically with laboratory values. Electronically signed by: Fei Reynaga MD 08/21/24 00:36 AM
[2024-08-21] MEDS: OCTREOTIDE ACETATE 100 MCG/ML VIAL SQ STA (01:50)
[2024-08-21 02:28] LABS: Hematocrit (blood only) 14.1 % (42.0-52.0); Hemoglobin 4.3 g/dl (14.0-18.0)
[2024-08-21 02:34] LABS: BUN Creatinine Ratio 27.2 (10-20); Calcium 7.7 mg/dl (8.6-10.3); Creatinine Clr Calc Pharmacy 37.7 ml/min; Potassium 5.8 mmol/L (3.5-5.1)
[2024-08-21] MEDS ORDERED: SODIUM CHLORIDE 0.9% 50 ML IV PRN (02:56)
[2024-08-21] MEDS ORDERED: SODIUM CHLORIDE 0.9% 100 ML IV PRN (02:56)
[2024-08-21] MEDS ORDERED: STAT IV/IM STA (02:58)
[2024-08-21] MEDS ORDERED: NITROGLYCERIN SL 0.4 MG/TAB TAB SL PRN (02:58)
[2024-08-21] MEDS ORDERED: PANTOPRAZOLE BOLUS/DRIP IV STA (02:58)
[2024-08-21] MEDS: CALCIUM GLUCONATE 1,000 MG/60 ML BAG IV SCH (03:15)
[2024-08-21] MEDS: SODIUM ZIRCONIUM CYCLOSILICATE 10 GM PACKET PO STA (03:27)
[2024-08-21] MEDS: cefTRIAXone SODIUM 2,000 MG/50 ML BAG IV SCH (03:27)
--- NOTE | 2024-08-21 03:27 | History & Physical Report ---
Date of Service August 21, 2024 Assessment & Plan (1) Symptomatic anemia: Plan: 53-year-old male with past medical history significant for COPD, GAVE, duodenal varices, secondary esophageal varices with bleeding, alcoholic cirrhosis, ascites due to alcoholic cirrhosis, severe protein energy malnutrition, CKD stage IV, history of congenital inherited thrombocytopenia, alcohol dependence in remission presents with symptomatic anemia. Currently patient getting weekly paracentesis. Yesterday had paracentesis about 9 to 10 L fluid out and albumin was given. But he was feeling weak and tired not feeling himself and came to the ER. He was also feeling dizzy. In the ER his hemoglobin was found to be 3.3. ER checked the stools which was brown but Hemoccult was positive. His hemodynamics are okay. Patient denies any blood in the stools. No hematemesis. Denies chest pain. Has some shortness of breath. No cough. Afebrile. Feeling cold. No runny nose or sore throat. No abdominal pain. In April patient was transferred to [facility] because of bleeding from duodenal varices for possible TIPS procedure. At [facility] patient was status post gastric and duodenal varices coil embolization as TIPS procedure was thought to be risky given the p atient condition. Today after discussing with GI it was thought it would be better to transfer to [facility] for IR. ER called and spoked with ICU, GI, IR and hospitalist at [facility] and was accepted to hospital service. Waiting for the bed availability. Meanwhile received Protonix. Received blood transfusion. Symptomatic anemia Presented with hemoglobin 3.3 Required IR embolization in the recent past ER called [facility] and has accepted transfer and waiting for the bed availability Protonix drip, Sandostatin drip, Received 2 units of PRBC Repeat H&H increase only up to 4.3 Called [facility] and updated. [facility] is trying to expedite transfer Hemodynamics are okay currently Transfusing two more units prbc Empiric Rocephin CT abdomen/pelvis without contrast showing large volume ascites Close monitor Patient had recurrent admissions for the same:0n 04/12/24 had hb 4.5 and required 4 units prbc. At that time egd was not done as he recently had egd and seems patient declined and was d/alyssa on 04/15 .Was admitted on 04/26 with hb of 6.5 and dropping to 5.9. During that admission was s/p 5 units prbc and S/P Endoscopy on 04/28; was found to have active oozing from portal hypertensive gastropathy. Patient underwent APC and Hemoclip placement. Was d/alyssa on 05/05/24 with hb 7.4 and got admitted on 05/08/24 with ascites and hb 6.9 had one unit prbc given and Patient underwent EGD - Found to have duodenal variceal bleeding hemostatic spray applied And it was recommended that patient would be transferred to tertiary care center for possible TIPS . Was transferred to [facility] but was th ought patient was too risky for and TIPS was not done but was S/p gastric and duodenal varices coil embolization on 05/10/2024. GRACIELA on CKD stage IV Baseline. 2.2 Presents with 2.6 Avoid nephrotoxic agents Follow repeat labs Hyperkalemia Potassium 5.8 EKG no acute findings Given calcium gluconate and Lokelma Will hold his home diuretics Aldactone and torsemide Follow repeat labs Hyponatremia Sodium 126 Patient sodium generally around 128 to low 130s Will closely monitor repeat labs Hypocalcemia Given IV calcium gluconate Elevated ammonia Ammonia level 95 Patient's alert and oriented Continue home lactulose and follow repeat levels Abdominal ascites Currently getting weekly paracentesis Rapidly filling up Currently holding his torsemide and Aldactone Close monitor the volume status DVT prophylaxis SCDs Disposition admitted to telemetry. Awaiting transfer to [facility] CODE STATUS. Full code as per discussion with the patient History of Present Illness Chief Complaint: Symptomatic anemia Primary Care Provider: Rina Neil PA-C 53-year-old male with past medical history significant for COPD, GAVE, duodenal varices, secondary esophageal varices with bleeding, alcoholic cirrhosis, ascites due to alcoholic cirrhosis, severe protein energy malnutrition, CKD stage IV, history of congenital inherited thrombocytopenia, alcohol dependence in remission presents with symptomatic anemia. Currently patient getting weekly paracentesis. Yesterday had paracentesis about 9 to 10 L fluid out and albumin was given. But he was feeling weak and tired not feeling himself and came to the ER. He was also feeling dizzy. In the ER his hemoglobin was found to be 3.3. ER checked the stools which was brown but Hemoccult was positive. His hemodynamics are okay. Patient denies any blood in the stools. No hematemesis. Denies chest pain. Has some shortness of breath. No cough. Afebrile. Feeling cold. No runny nose or sore throat. No abdominal pain. In April patient was transferred to [facility] because of bleeding from duodenal varices for possible TIPS procedure. At [facility] patient was status post gastric and duodenal varices coil embolization as TIPS procedure was thought to be risky given the patient condition. Today after discussing with GI it was thought it would be better to transfer to [facility] for IR. ER called and spoked with ICU, GI, IR and hospitalist at [facility] and was accepted to hospital service. Waiting for the bed availability. Meanwhile received Protonix. Received blood transfusion. Past medical history. As mentioned above Past surgical history. IR venous intervention. Tonsillectomy. Social history. Currently smoking 3 cigarettes daily. Currently not drinking alcohol. No drug use currently. Living with a roommate. Family history. Paternal grandfather had colon cancer. Mother has diabetes. Hypertension. Stroke. Allergies Allergy/AdvReac Type Severity Reaction Status Date / Time Penicillins Allergy Unknown pt unsure Verified 05/20/24 14:32 of reaction Home Medications Medication Instructions Recorded Confirmed Type fluticasone furoate 100 1 inh inhalation DAILY 08/21/24 08/21/24 History mcg/actuation blister powder for inhalation (Arnuity Ellipta) folic acid 1 mg tablet 1 mg PO DAILY 08/21/24 08/21/24 History gabapentin 300 mg capsule 300 mg PO TID 08/21/24 08/21/24 History hydroxyzine HCl 10 mg tablet 10 mg PO Q6H PRN Itching 08/21/24 08/21/24 History lactulose 10 gram/15 mL oral 30 ml PO BID 08/21/24 08/21/24 History solution (Constulose) midodrine 5 mg tablet 5 mg PO TID 08/21/24 08/21/24 History pantoprazole 40 mg tablet,delayed 40 mg PO BID 08/21/24 08/21/24 History release spironolactone 100 mg tablet 100 mg PO DAILY 08/21/24 08/21/24 History torsemide 20 mg tablet 40 mg PO BID 08/21/24 08/21/24 History trazodone 50 mg tablet 50 mg PO HS 08/21/24 08/21/24 History Past Med/Surg History Problem List (Updated 08/21/24 @ 03:36 by Main Hunter MD) Symptomatic anemia Hyperammonemia (Acute) Acute hyperkalemia (Acute) Acute hyponatremia (Acute) Weakness (Acute) Anemia (Acute) GRACIELA (acute kidney injury) (Acute) GI bleed (Acute) Dysphagia Chronic kidney disease, stage 4 (severe) Hypoalbuminemia (Acute) Low hemoglobin (Acute) History of upper gastrointestinal bleeding Hepatorenal syndrome Anemia (Acute) Abdominal ascites (Acute) SOB (shortness of breath) (Acute) Abdominal distension (Acute) GRACIELA (acute kidney injury) UGIB (upper gastrointestinal bleed) GAVE (gastric antral vascular ectasia) Esophagitis PAF (paroxysmal atrial fibrillation) Positive blood culture CKD (chronic kidney disease) stage 4, GFR 15-29 ml/min Severe sepsis Symptomatic anemia (Acute) Metabolic encephalopathy (Acute) Alcoholic cirrhosis of liver with ascites (Acute) Abdominal ascites (Acute) Blunt trauma of nose Blunt trauma of face Hypoxia (Acute) Pancytopenia (Acute) Influenza A (Acute) Tobacco use Hypomagnesemia (Acute) Hyponatremia (Acute) Hypokalemia (Acute) Multifocal pneumonia (Acute) Sepsis (Acute) Encounter for pre-operative examination Alcohol use (Acute) Fall (Acute) Medical History Hypervolemia Symptomatic anemia hospitalized [facility] 02/26/24 for issues related to this Poor historian main details obtained from [place] med record Alcoholic cirrhosis of liver with ascites hospitalized [facility] 02/26/24 for issues related to this Metabolic encephalopathy hospitalized [facility] 02/26/24 for issues related to this PAF (paroxysmal atrial fibrillation) pt denies; hospitalized [facility] 02/26/24, evaluated by tae garcia per cardio consult Esophagitis History of severe sepsis hospitalized 02/26/24, [facility] 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 per med record; hospitalized [facility] 02/26/24 for issues related to this Orthostatic hypotension "he thinks" COPD (chronic obstructive pulmonary disease) History of pneumonia 07/2023, 02/26/24, hospitalized [facility] 02/26/24 for issues related to this S/P abdominal paracentesis 03/21/2024, [facility] Current every day smoker Surgical History History of esophagogastroduodenoscopy (EGD) S/P cataract extraction right eye/left History of tonsillectomy History of hernia surgery infancy Family History Mother Stroke Diabetes Other Colorectal cancer Heart disease Social History Smoking Status: Never smoker Tobacco Type: Cigarettes Cigarettes Per Day: 8; Second Hand Exposure: No; Do You Dip or Chew Tobacco: No; Hx Alcohol Use: No Hx Substance Use: Yes Substance Use Type Other:: marijuana Preferred Language: Uzbek Communication Ability: Effective Tariff Counsel Required: No Beliefs That Will Affect Care: None Current Living Situation: Other Current Living Situation Comment: roommate Feels Safe at Home: Yes Assistive Devices: None Review of Systems Review of Systems: All systems reviewed & are unremarkable except as noted in HPI & below Physical Exam Physical Exam: General-Not in acute distress Head- atraumatic Eyes- Pallor, No icterus present . ENT- oropharynx clear Neck- supple, no JVD. Lungs- clear to auscultation no wheezing or crackles Heart- regular rate and rhythm; no murmur, no gallop. Abdomen- normal bowel sounds, soft, nontender, Distended Extremities- Gross pretibial edema present, No erythema seen. Neuro- alert, oriented no facial palsy; no dysarthria; moves extremities Results & Data Results & Data Vital Signs (Past 12 Hours) Vital Signs Temp Pulse Pulse Resp BP BP Pulse Ox 08/21/24 00:44 36.6 C 76 14 129/62 98 08/21/24 00:40 36.6 C 71 14 109/47 L 99 08/21/24 00:23 36.6 C 69 20 122/54 L 98 08/21/24 00:21 36.6 C 68 15 123/60 99 08/20/24 23:36 78 08/20/24 23:13 79 16 107/69 100 08/20/24 22:50 36.5 C 79 16 107/69 100 08/20/24 22:20 36.4 C L 78 20 110/54 L 99 08/20/24 22:05 36.4 C L 75 16 104/53 L 98 08/20/24 21:50 36.4 C L 73 20 99/60 L 100 08/20/24 21:45 36.5 C 73 24 110/48 L 100 08/20/24 21:00 73 18 111/48 L 100 08/20/24 19:30 80 08/20/24 19:18 78 18 95 08/20/24 19:18 78 18 116/53 L 95 08/20/24 19:18 95 08/20/24 18:33 36.3 C L 96 H 20 103/50 L 95 O2 Del Method O2 Flow Rate 08/21/24 00:44 0 08/21/24 00:40 0 08/21/24 00:23 0 08/21/24 00:21 0 08/20/24 23:36 08/20/24 23:13 Room Air 08/20/24 22:50 08/20/24 22:20 08/20/24 22:05 08/20/24 21:50 0 08/20/24 21:45 0 08/20/24 21:00 Room Air 08/20/24 19:30 08/20/24 19:18 Room Air 08/20/24 19:18 Room Air 08/20/24 19:18 Room Air 08/20/24 18:33 Room Air Diagnostic Findings Laboratory Results WBC 10.44 K/ul (4.8-10.8) 08/20/24 20:00 RBC 1.31 M/uL (4.70-6.10) L 08/20/24 20:00 Hgb 4.3 g/dl (14.0-18.0) L* 08/21/24 00:50 Hct 14.1 % (42.0-52.0) L* 08/21/24 00:50 MCV 88.5 fL (80.0-100.0) 08/20/24 20:00 MCH 25.2 pg (25.0-34.0) 08/20/24 20:00 MCHC 28.4 g/dL (32.0-36.0) L 08/20/24 20:00 RDW Std Deviation 65.4 fL (36.4-46.3) H 08/20/24 20:00 RDW Coeff of Ham 20.4 % (11.5-14.5) H 08/20/24 20:00 Plt Count 231 K/uL (130-400) 08/20/24 20:00 MPV 9.8 fL (9.4-12.4) 08/20/24 20:00 Immature Gran % (Auto) Cancelled 08/20/24 19:02 Neut % (Auto) Cancelled 08/20/24 19:02 Lymph % (Auto) Cancelled 08/20/24 19:02 [place] % (Auto) Cancelled 08/20/24 19:02 Eos % (Auto) Cancelled 08/20/24 19:02 Baso % (Auto) Cancelled 08/20/24 19:02 Neut # (Auto) Cancelled 08/20/24 19:02 Lymph # (Auto) Cancelled 08/20/24 19:02 [place] # (Auto) Cancelled 08/20/24 19:02 Eos # (Auto) Cancelled 08/20/24 19:02 Baso # (Auto) Cancelled 08/20/24 19:02 Immature Gran # (Auto) Cancelled 08/20/24 19:02 Absolute Nucleated RBC Cancelled 08/20/24 19:02 Nucleated RBC % (auto) Cancelled 08/20/24 19:02 Neutrophils % (Manual) 87 % 08/20/24 20:00 Band Neutrophils % Cancelled 08/20/24 19:02 Lymphocytes % (Manual) 6 % 08/20/24 20:00 Prolymphocyte % Cancelled 08/20/24 19:02 Reactive Lymphs % (Man) Cancelled 08/20/24 19:02 Monocytes % (Manual) 6 % 08/20/24 20:00 Eosinophils % (Manual) Cancelled 08/20/24 19:02 Basophils % (Manual) 1 % 08/20/24 20:00 Metamyelocytes % (Man) Cancelled 08/20/24 19:02 Myelocytes % (Man) Cancelled 08/20/24 19:02 Promyelocytes % (Man) Cancelled 08/20/24 19:02 Blast Cells % (Manual) Cancelled 08/20/24 19:02 Plasma Cell % (Manual) Cancelled 08/20/24 19:02 Other Cells % Cancelled 08/20/24 19:02 Nucleated RBC % Cancelled 08/20/24 19:02 Neutrophils # (Manual) 9.08 K/uL (1.40-6.50) H 08/20/24 20:00 Band Neutrophils # Cancelled 08/20/24 19:02 Total Absolute Neuts 9.08 K/uL (1.4-6.5) H 08/20/24 20:00 Lymphocytes # (Manual) 0.63 K/uL (1.2-3.4) L 08/20/24 20:00 Prolymphocyte # Cancelled 08/20/24 19:02 Reactive Lymphs # Cancelled 08/20/24 19:02 Total Abs Lymphocytes 0.63 K/uL (1.2-3.4) L 08/20/24 20:00 Monocytes # (Manual) 0.63 K/uL (0.11-0.59) H 08/20/24 20:00 Eosinophils # (Manual) Cancelled 08/20/24 19:02 Basophils # (Manual) 0.10 K/uL (0-0.2) 08/20/24 20:00 Metamyelocytes # (Man) Cancelled 08/20/24 19:02 Myelocytes # (Manual) Cancelled 08/20/24 19:02 Promyelocytes # (Man) Cancelled 08/20/24 19:02 Blast Cells # (Man) Cancelled 08/20/24 19:02 Plasma Cell # (Manual) Cancelled 08/20/24 19:02 Other Cells # Cancelled 08/20/24 19:02 Nucleated RBCs # (Man) Cancelled 08/20/24 19:02 Hypersegmented Neuts Cancelled 08/20/24 19:02 Hyposegmented Neuts Cancelled 08/20/24 19:02 Hypogranular Neuts Cancelled 08/20/24 19:02 Large Granular Lymphs Cancelled 08/20/24 19:02 # Lrg Granular Lymphs Cancelled 08/20/24 19:02 Hairy Cells Cancelled 08/20/24 19:02 Smudge Cells Cancelled 08/20/24 19:02 Toxic Granulation Cancelled 08/20/24 19:02 Toxic Vacuolation Cancelled 08/20/24 19:02 Dohle Bodies Cancelled 08/20/24 19:02 Archie Rods Cancelled 08/20/24 19:02 Platelet Estimate Cancelled 08/20/24 19:02 Hypogranular Platelets Cancelled 08/20/24 19:02 Giant Platelets Cancelled 08/20/24 19:02 Platelet Satelliting Cancelled 08/20/24 19:02 RBC Morphology Cancelled 08/20/24 19:02 Polychromasia Cancelled 08/20/24 19:02 Hypochromasia Cancelled 08/20/24 19:02 Poikilocytosis Cancelled 08/20/24 19:02 Basophilic Stippling Cancelled 08/20/24 19:02 Anisocytosis Cancelled 08/20/24 19:02 Microcytosis Cancelled 08/20/24 19:02 Macrocytosis Cancelled 08/20/24 19:02 Spherocytes Cancelled 08/20/24 19:02 Pappenheimer Bodies Cancelled 08/20/24 19:02 Sickle Cells Cancelled 08/20/24 19:02 Target Cells 1+ 08/20/24 20:00 Tear Drop Cells 1+ 08/20/24 20:00 Ovalocytes Cancelled 08/20/24 19:02 Stomatocytes Cancelled 08/20/24 19:02 [place] Bodies Cancelled 08/20/24 19:02 Echinocytes Cancelled 08/20/24 19:02 Acanthocytes (Spur) Cancelled 08/20/24 19:02 Rouleaux Cancelled 08/20/24 19:02 RBC Agglutinates Cancelled 08/20/24 19:02 Schistocytes Cancelled 08/20/24 19:02 Sezary Cell Cancelled 08/20/24 19:02 PT 11.9 Seconds (9.0-12.0) 08/20/24 19:02 INR 1.1 (0.9-1.1) 08/20/24 19:02 APTT 25 Seconds (21-31) 08/20/24 20:00 PTT Ratio 0.9 08/20/24 20:00 Sodium 126 mmol/L (136-145) L 08/21/24 00:50 Potassium 5.8 mmol/L (3.5-5.1) H 08/21/24 00:50 Chloride 100 mmol/L (98-107) 08/21/24 00:50 Carbon Dioxide 22 mmol/L (21-32) 08/21/24 00:50 Anion Gap 4 (3-11) 08/21/24 00:50 BUN 71 mg/dl (6-23) H 08/21/24 00:50 Creatinine 2.61 mg/dl (0.6-1.4) H 08/21/24 00:50 Est Cr Clr Drug Dosing 37.7 ml/min 08/21/24 00:50 eGFR 28.82 08/21/24 00:50 BUN/Creatinine Ratio 27.2 (10-20) H 08/21/24 00:50 Glucose 118 mg/dl (70-99(Fasting)) H 08/21/24 00:50 Calcium 7.7 mg/dl (8.6-10.3) L 08/21/24 00:50 Magnesium 2.8 mg/dl (1.7-2.4) H 08/20/24 19:02 Total Bilirubin 1.1 mg/dl (0.2-1.0) H 08/20/24 19:02 AST 17 U/L (13-39) 08/20/24 19:02 ALT 9 U/L (7-52) 08/20/24 19:02 Alkaline Phosphatase 61 U/L (34-104) 08/20/24 19:02 Ammonia 95.0 umol/L (18-72) H 08/20/24 19:19 Troponin I High Sens 12.9 pg/ml (0-20) 08/20/24 19:02 Total Protein 5.8 gm/dl (6.0-8.3) L 08/20/24 19:02 Albumin 3.1 gm/dl (3.4-5.0) L 08/20/24 19:02 Globulin 2.7 gm/dl (2.5-4.0) 08/20/24 19:02 Albumin/Globulin Ratio 1.1 (0.9-2) 08/20/24 19:02 TSH 0.762 uIu/ml (0.300-4.500) 08/20/24 19:02 Urine Color Yellow 08/20/24 20:13 Urine Appearance Clear (Clear) 08/20/24 20:13 Urine pH 5.0 (4.5-7.5) 08/20/24 20:13 Ur Specific [place] 1.011 (1.000-1.030) 08/20/24 20:13 Urine Protein Negative (Negative) 08/20/24 20:13 Urine Glucose (UA) Negative (Negative) 08/20/24 20:13 Urine Ketones Negative (Negative) 08/20/24 20:13 Urine Blood Negative (Negative) 08/20/24 20:13 Urine Nitrite Negative (Negative) 08/20/24 20:13 Urine Bilirubin Negative (Negative) 08/20/24 20:13 Urine Urobilinogen Negative (Negative) 08/20/24 20:13 Ur Leukocyte Esterase Negative (Negative) 08/20/24 20:13 Adenovirus (PCR) Not Detected (NotDetected) 08/20/24 Unknown B. pertussis DNA (PCR) Not Detected (NotDetected) 08/20/24 Unknown B.parapertussis DNA PCR Not Detected (NotDetected) 08/20/24 Unknown C. pneumoniae DNA (PCR) Not Detected (NotDetected) 08/20/24 Unknown Coronavirus OC43 (PCR) Not Detected (NotDetected) 08/20/24 Unknown Coronavirus HKU1 (PCR) Not Detected (NotDetected) 08/20/24 Unknown Coronavirus 229E (PCR) Not Detected (NotDetected) 08/20/24 Unknown SARS-CoV-2 (PCR) Not Detected (NotDetected) 08/20/24 Unknown Coronavirus NL63 (PCR) Not Detected (NotDetected) 08/20/24 Unknown Human Metapneumovir PCR Not Detected (NotDetected) 08/20/24 Unknown Influenza Type A (PCR) Not Detected (NotDetected) 08/20/24 Unknown Influenza Type B (PCR) Not Detected (NotDetected) 08/20/24 Unknown M. pneumoniae (PCR) Not Detected (NotDetected) 08/20/24 Unknown Parainfluenza 1 (PCR) Not Detected (NotDetected) 08/20/24 Unknown Parainfluenza 2 (PCR) Not Detected (NotDetected) 08/20/24 Unknown Parainfluenza 3 (PCR) Not Detected (NotDetected) 08/20/24 Unknown Parainfluenza 4 (PCR) Not Detected (NotDetected) 08/20/24 Unknown RSV (PCR) Not Detected (NotDetected) 08/20/24 Unknown Entero/Rhino (PCR) Not Detected (NotDetected) 08/20/24 Unknown Blood Parasites ID Cancelled 08/20/24 19:02 Blood Type A Negative 08/20/24 20:00 Antibody Screen NEGATIVE 08/20/24 20:00 Crossmatch See Detail 08/20/24 21:00 Impressions Chest X-Ray 08/20/24 18:43 Exam(s): XR CXR 1 VIEW EXAM: XR Chest, 1 View CLINICAL HISTORY: Reason for exam: weakness. TECHNIQUE: Frontal view of the chest. COMPARISON: 04/28/2024 FINDINGS: Lungs: Mild central pulmonary vascular congestion. No consolidation. Pleural space: Unremarkable. No pneumothorax. Heart: Cardiomegaly. Mediastinum: Unremarkable. Normal mediastinal contour. Bones/joints: Unremarkable. No acute fracture. IMPRESSION: Mild central pulmonary vascular congestion Electronically signed by: Fei Reynaga MD 08/20/24 20:[address] 08/20/24 18:53 Exam(s): CT HEAD Without Contrast EXAM: CT Head Without Intravenous Contrast CLINICAL HISTORY: Reason for exam: weak dizzy. TECHNIQUE: Axial computed tomography images of the head/brain without intravenous contrast. CTDI is 36.31 mGy and DLP is 624.41 mGy-cm. Automated exposure control was utilized for the study. A dose lowering technique was utilized adhering to the principles of ALARA. COMPARISON: No relevant prior studies available. FINDINGS: Brain: Unremarkable. No hemorrhage. No significant white matter disease. No edema. Ventricles: Unremarkable. No ventriculomegaly. Bones/joints: Unremarkable. No acute fracture. Soft tissues: Unremarkable. Sinuses: Unremarkable as visualized. No acute sinusitis. Mastoid air cells: Unremarkable as visualized. No mastoid effusion. IMPRESSION: Normal head/brain CT. Electronically signed by: Fei Reynaga MD 08/20/24 23:44 PM Abdomen/Pelvis CT 08/20/24 20:40 Exam(s): CT ABDOMEN + PELVIS Without Contrast EXAM: CT Abdomen and Pelvis Without Intravenous Contrast CLINICAL HISTORY: Reason for exam: liver disease, pain. TECHNIQUE: Axial computed tomography images of the abdomen and pelvis without intravenous contrast. CTDI is 26.03 mGy and DLP is 1426.17 mGy-cm. Automated exposure control was utilized for the study. A dose lowering technique was utilized adhering to the principles of ALARA. COMPARISON: No relevant prior studies available. FINDINGS: Lung bases: Unremarkable. No mass. No consolidation. Pleural space: Small left pleural effusion. Heart: Cardiomegaly. Visualization of the interventricular septum suggesting anemia. ABDOMEN: Liver: Hepatic cirrhosis. Gallbladder and bile ducts: Postoperative changes prior cholecystectomy and prior postoperative changes coil embolization of esophageal varices. No ductal dilation. Pancreas: Unremarkable. No ductal dilation. Spleen: Unremarkable. No splenomegaly. Adrenals: Unremarkable. No mass. Kidneys and ureters: Unremarkable. No obstructing stones. No hydronephrosis. Stomach and bowel: Unremarkable. No obstruction. No mucosal thickening. PELVIS: Appendix: No findings to suggest acute appendicitis. Bladder: Unremarkable. No stones. Reproductive: Unremarkable as visualized. ABDOMEN and PELVIS: Intraperitoneal space: Large abdominal volume of abdominal and pelvic ascites. No free air. Bones/joints: No acute fracture. No dislocation. Soft tissues: Diffuse anasarca. Vasculature: See above. Lymph nodes: Unremarkable. No enlarged lymph nodes. IMPRESSION: 1. Large abdominal volume of abdominal and pelvic ascites. 2. Small left pleural effusion. 3. Visualization of the interventricular septum suggesting anemia. Correlate clinically with laboratory values. Electronically signed by: Fei Reynaga MD 08/21/24 00:36 AM ECG Additional Comments: ECG. Normal sinus rhythm rate of 78. No significant change was found. QTc 442. Code Status & VTE Plan VTE Prophylaxis Plan VTE Prophylaxis will be ordered: Yes
[2024-08-21] MEDS: OCTREOTIDE ACETATE 500 MCG in SODIUM CHLORIDE 0.9% 100 ML IV SCH (03:46)
[2024-08-21] MEDS: NICOTINE 7 MG/24 HR TDSY TD SCH (03:46)
[2024-08-21] MEDS: PANTOprazole 40 MG in DEXTROSE 5% MINI-B 100 ML IV SCH (03:46)
[2024-08-21 05:55] VITALS: PULSE 68
[2024-08-21 06:21] LABS: Hematocrit (blood only) 15.8 % (42.0-52.0); Mean Corpuscular Hemoglobin 26.9 pg (25.0-34.0); Mean Corpuscular Hgb Conc 31.6 g/dL (32.0-36.0); Mean Corpuscular Volume 84.9 fL (80.0-100.0); Mean Platelet Volume 9.6 fL (9.4-12.4); Platelet Count 195 K/uL (130-400); RDW Coefficient of Variation 17.2 % (11.5-14.5); Red Blood Count 1.86 M/uL (4.70-6.10)
[2024-08-21 06:33] LABS: Albumin Level 2.6 gm/dl (3.4-5.0); BUN Creatinine Ratio 25.5 (10-20); Bilirubin,Total 2.5 mg/dl (0.2-1.0); Calcium 8.3 mg/dl (8.6-10.3); Creatinine Clr Calc Pharmacy 37.4 ml/min; Magnesium 2.7 mg/dl (1.7-2.4); Total Protein 4.9 gm/dl (6.0-8.3)
[2024-08-21 06:43] LABS: Basophils # (auto) 0.06 K/uL (0.00-0.20); Basophils % (auto) 0.6 %; Eosinophils # (auto) 0.69 K/uL (0.00-0.50); Eosinophils % (auto) 7.3 %; Immature Granulocytes % (auto) 1.1 %; Lymphocytes # (auto) 1.01 K/uL (1.20-3.40); Lymphocytes % (auto) 10.7 %; Monocytes # (auto) 0.84 K/uL (0.11-0.59); Monocytes % (auto) 8.9 %; Neutrophils % (auto) 71.4 %; Polychromasia 2+; Target Cells 1+; Tear Drop Cells 1+
[2024-08-21 07:05] VITALS: RESP 14
[2024-08-21 07:08] VITALS: BP 137/63; TEMP 98.1; O2SAT 98
[2024-08-21] MEDS ORDERED: CALCIUM GLUCONATE 1,000 MG/60 ML BAG IV STA (07:54)
[2024-08-21] MEDS ORDERED: DEXTROSE 50% 50 ML SYRINGE IV STA (07:54)
[2024-08-21] MEDS ORDERED: FUROSEMIDE INJ 20 MG/2 ML VIAL IV ONE (07:57)
[2024-08-21] MEDS ORDERED: LACTULOSE SYRUP 20 GM/30 ML UDC PO ONE (07:58)
[2024-08-21] MEDS ORDERED: MIDODRINE HCL 2.5 MG TAB PO SCH (08:00)
[2024-08-21] MEDS ORDERED: INSULIN HUMAN REGULAR PER UNIT 10 UNITS in SYRINGE 9.9 ML IV ONE (08:15)
--- NOTE | 2024-08-21 08:28 | Discharge Summary ---
Date of Service August 21, 2024 Admission HPI Per Admitting Provider 53-year-old male with past medical history significant for COPD, GAVE, duodenal varices, secondary esophageal varices with bleeding, alcoholic cirrhosis, ascites due to alcoholic cirrhosis, severe protein energy malnutrition, CKD stage IV, history of congenital inherited thrombocytopenia, alcohol dependence in remission presents with symptomatic anemia. Currently patient getting weekly paracentesis. Yesterday had paracentesis about 9 to 10 L fluid out and albumin was given. But he was feeling weak and tired not feeling himself and came to the ER. He was also feeling dizzy. In the ER his hemoglobin was found to be 3.3. ER checked the stools which was brown but Hemoccult was positive. His hemodynamics are okay. Patient denies any blood in the stools. No hematemesis. Denies chest pain. Has some shortness of breath. No cough. Afebrile. Feeling cold. No runny nose or sore throat. No abdominal pain. In April patient was transferred to [facility] because of bleeding from duodenal varices for possible TIPS procedure. At [facility] patient was status post gastric and duodenal varices coil embolization as TIPS procedure was thought to be risky given the patient condition. Today after discussing with GI it was thought it would be better to transfer to [facility] for IR. ER called and spoked with ICU, GI, IR and hospitalist at [facility] and was accepted to hospital service. Waiting for the bed availability. Meanwhile received Protonix. Received blood transfusion. Past medical history. As mentioned above Past surgical history. IR venous intervention. Tonsillectomy. Social history. Currently smoking 3 cigarettes daily. Currently not drinking alcohol. No drug use currently. Living with a roommate. Family history. Paternal grandfather had colon cancer. Mother has diabetes. Hypertension. Stroke. Principal Diagnosis Symptomatic anemia hyperkalemia Discharge Data Allergies Allergy/AdvReac Type Severity Reaction Status Date / Time Penicillins Allergy Unknown pt unsure Verified 05/20/24 14:32 of reaction Consultations 08/20/24 21:08 ED Decision to Admit Stat Ordered Studies 08/20/24 18:53 CT head/brain wo con Stat 08/20/24 20:40 CT abd pelvis wo con Stat Hospital Course (1) Symptomatic anemia: Patient Transferred to [facility]. Am labs Na 127, k 6.0, hb 5.0 after three units prbc transfusion.Total 4units of prbc were ordered. Cr 2.6 ca 8.3, Mag 2.7 , Total bilirubin 2.5, Direct bilirubin 1.0, ast 15, alt 9, alk phosp 53, ammonia 105.Patient already left hospital prior to any intervention for hyperkalemia and elevated ammonia. Notified [facility] of am labs. Admission A/P from last night: 1) Symptomatic anemia: Plan: 53-year-old male with past medical history significant for COPD, GAVE, duodenal varices, secondary esophageal varices with bleeding, alcoholic cirrhosis, ascites due to alcoholic cirrhosis, severe protein energy malnutrition, CKD stage IV, history of congenital inherited thrombocytopenia, alcohol dependence in remission presents with symptomatic anemia. Currently patient getting weekly paracentesis. Yesterday had paracentesis about 9 to 10 L fluid out and albumin was given. But he was feeling weak and tired not feeling himself and came to the ER. He was also feeling dizzy. In the ER his hemoglobin was found to be 3.3. ER checked the stools which was brown but Hemoccult was positive. His hemodynamics are okay. Patient denies any blood in the stools. No hematemesis. Denies chest pain. Has some shortness of breath. No cough. Afebrile. Feeling cold. No runny nose or sore throat. No abdominal pain. In April patient was transferred to [facility] because of bleeding from duodenal varices for possible TIPS procedure. At [facility] patient was status post gastric and duodenal varices coil embolization as TIPS procedure was thought to be risky given the patient condition. Today after discussing with GI it was thought it would be better to transfer to [facility] for IR. ER called and spoked with ICU, GI, IR and hospitalist at [facility] and was accepted to hospital service. Waiting for the bed availability. Meanwhile received Protonix. Received blood transfusion. Symptomatic anemia Presented with hemoglobin 3.3 Required IR embolization in the recent past ER called [facility] and has accepted transfer and waiting for the bed availability Protonix drip, Sandostatin drip, Received 2 units of PRBC Repeat H&H increase only up to 4.3 Called [facility] and updated. [facility] is trying to expedite transfer Hemodynamics are okay currently Transfusing two more units prbc Empiric Rocephin CT abdomen/pelvis without contrast showing large volume ascites Close monitor Patient had recurrent admissions for the same:0n 04/12/24 had hb 4.5 and required 4 units prbc. At that time egd was not done as he recently had egd and seems patient declined and was d/alyssa on 04/15 .Was admitted on 04/26 with hb of 6.5 and dropping to 5.9. During that admission was s/p 5 units prbc and S/P Endoscopy on 04/28; was found to have active oozing from portal hypertensive gastropathy. Patient underwent APC and Hemoclip placement. Was d/alyssa on 05/05/24 with hb 7.4 and got admitted on 05/08/24 with ascites and hb 6.9 had one unit prbc given and Patient underwent EGD - Found to have duodenal variceal bleeding hemostatic spray applied And it was recommended that patient would be transferred to tertiary care center for possible TIPS . Was transferred to [facility] but was thought patient was too risky for and TIPS was not done but was S/p gastric and duodenal varices coil embolization on 05/10/2024. GRACIELA on CKD stage IV Baseline. 2.2 Presents with 2.6 Avoid nephrotoxic agents Follow repeat labs Hyperkalemia Potassium 5.8 EKG no acute findings Given calcium gluconate and Lokelma Will hold his home diuretics Aldactone and torsemide Follow repeat labs Hyponatremia Sodium 126 Patient sodium generally around 128 to low 130s Will closely monitor repeat labs Hypocalcemia Given IV calcium gluconate Elevated ammonia Ammonia level 95 Patient's alert and oriented Continue home lactulose and follow repeat levels Abdominal ascites Currently getting weekly paracentesis Rapidly filling up Currently holding his torsemide and Aldactone Close monitor the volume status DVT prophylaxis SCDs Total Time Total Time Spent Total Time Spent (In Minutes): 45 minutes Discharge Plan Discharge Items Reason For Visit: PROFOUND ANEMIA, GI BLEED Condition on Discharge: Serious Follow-up/Referrals: Rina Neil PA-C [Primary Care Provider] - Medications and DC Order Prescriptions: No Action torsemide 20 mg tablet 40 mg PO BID trazodone 50 mg tablet 50 mg PO HS spironolactone 100 mg tablet 100 mg PO DAILY midodrine 5 mg tablet 5 mg PO TID pantoprazole 40 mg tablet,delayed release (DR/EC) 40 mg PO BID gabapentin 300 mg capsule 300 mg PO TID folic acid 1 mg tablet 1 mg PO DAILY hydroxyzine HCl 10 mg tablet 10 mg PO Q6H PRN (Reason: Itching) lactulose [Constulose] 10 gram/15 mL solution 30 ml PO BID Arnuity Ellipta 100 mcg/actuation blister with device 1 inh INHALATION DAILY Admission Data Admit Date/Time: 08/21/24 00:49 Attending Provider: Tyrese Gibbs Admit Provider: Main Hunter Primary Care Provider: Rina Neil Other Providers: Main Hunter
[2024-08-21] MEDS ORDERED: FOLIC ACID 1 MG TAB PO SCH (09:00)
[2024-08-21] MEDS ORDERED: FLUTICASONE FUROATE 100MCG 14 PUFFS/INHALER INH SCH (09:00)
[2024-08-21] MEDS ORDERED: LACTULOSE SYRUP 20 GM/30 ML UDC PO SCH (09:00)
[2024-08-21 11:21] LABS: iSTAT Blood Urea Nitrogen 77 mg/dl (7-18); iSTAT Carbon Dioxide 18 mmol/L (24-31); iSTAT Chloride 99 mmol/L (101-112); iSTAT Creatinine 2.7 mg/dl (0.6-1.3); iSTAT Glucose 122 mg/dl (70-99); iSTAT Hematocrit < 15 % (42-52); iSTAT Ionized Calcium 1.11 mmol/l (1.12-1.32); iSTAT Potassium 5.9 mmol/L (3.3-5.0); iSTAT Sodium 127 mmol/L (135-144)
--- NOTE | 2024-08-21 11:39 | Electrocardiogram Report ---
Test Reason : Blood Pressure : */* mmHG Vent. Rate : 78 BPM Atrial Rate : 78 BPM P-R Int : 184 ms QRS Dur : 76 ms QT Int : 388 ms P-R-T Axes : 7 58 57 degrees QTcB Int : 442 ms Normal sinus rhythm When compared with ECG of 20-May-2024 11:46, No significant change was found Confirmed by Perry Iraheta [id number] on 08/21/2024 11:39:40 AM Referred By: REFERRED SELF Confirmed By: Perry Iraheta
== END 2024-08-21 07:30 | disposition short-term general hospital (02) ==
LOC: ED 18:30 → INTOOBSV 08-21 00:49 → EDINP 08-21 00:49

== ENCOUNTER 2024-09-04 04:59 | Observation (INO) ==
--- NOTE | 2024-09-04 05:16 | Emergency Department Note ---
Impression & Plan Vomiting ADMIT ED Provider Note HPI: History obtained from patient. The patient is a 54-year-old gentleman with history of chronic kidney disease, hepatorenal syndrome, alcoholic cirrhosis, presents the emergency department with a chief complaint of vomiting. Patient states he has had nausea and vomiting since his discharge from [facility] just 2 days ago. Patient is status post duodenal variceal embolization on 08/31 as well as paracentesis on 08/31 at [facility] in [place]. Patient states that he did not notice any blood in his vomit until he was on the way over to the ED this morning and he thinks he might of been darker than usual. On arrival here to the ED the patient is hemodynamically stable, he appears to be in no acute distress on my initial assessment. Patient is hemodynamically stable on arrival. ROS: - Per HPI Differential Diagnosis: Esophageal variceal bleed, duodenal bleed, acute gastritis, peptic ulcer disease, acute pancreatitis, SBP, small bowel obstruction, amongst other potential pathologies. *Outpatient medications and allergy history reviewed. PE: General: Alert, disheveled appearing HEENT: Normocephalic, trachea midline Eyes: Extraocular eye movement is intact, no scleral erythema Pulmonary: Clear to auscultation bilaterally, no wheezing Cardio: Regular rate and rhythm GI: Moderate abdominal distention, nontender to palpation : No suprapubic tenderness MSK: No evidence of trauma or malformation of the extremities, no edema Skin: No evidence of rash Neuro: Alert, no focal deficits Psychiatric: Cooperative INDEPENDENT INTERPRETATIONS: quality assurance monitor body: (As interpreted by myself): - An order was placed for continuous cardiac monitoring - Patient was noted to be in sinus rhythm with a rate of 72 Interventions provided in ED: -IV Protonix bolus and drip, IV Zofran Medical Decision Making: IV was established and lab work obtained, patient was placed on cardiac nurse practitioner. Lab work shows no leukocytosis, hemoglobin is 8.8 which is stable for the patient in comparison to previous lab work, platelet count is normal, CMP shows creatinine of 1.99 which also appears to be near the patient's baseline. There is no transaminitis, bilirubin is 1.1. Lipase is normal. CT imaging of the abdomen pelvis shows multiple noncritical abnormalities per the interpreting radiologist including renal cysts, possible colitis, and possible diverticulitis. Ascites is also noted. There is no evidence of small bowel obstruction or obvious acute surgical process. On my reassessment the patient is resting in bed, he complains of some continued abdominal discomfort and nausea. Given his recent inpatient stay and procedural history, I feel that he would benefit from observation admission and continuation of Protonix drip with medication as needed for nausea. His hemoglobin is stable at 8.8 which is better than his levels have been over the past several months. I discussed the patient's overall presentation and history with the on-call hospitalist, Dr. Mark, and the patient was placed for admission in stable condition. Consultants/Discussions held with other healthcare providers: -Hospitalist, Dr. Mark Disposition discussion held by myself with: -Patient and family ember at bedside Diagnosis: 1. Nausea and vomiting, acute 2. History of alcohol induced cirrhosis, chronic 3. History of duodenal variceals, chronic, status post embolization 4. Anemia, chronic, stable 5. Chronic kidney disease Disposition: Admission Tae Elias DO Emergency Medicine Past Med/Surg History Problem List (Updated 09/04/24 @ 07:22 by Tae Elias DO) Vomiting (Acute) Symptomatic anemia Hyperammonemia (Acute) Acute hyperkalemia (Acute) Acute hyponatremia (Acute) Weakness (Acute) Anemia (Acute) GRACIELA (acute kidney injury) (Acute) GI bleed (Acute) Dysphagia Chronic kidney disease, stage 4 (severe) Hypoalbuminemia (Acute) Low hemoglobin (Acute) History of upper gastrointestinal bleeding Hepatorenal syndrome Anemia (Acute) Abdominal ascites (Acute) SOB (shortness of breath) (Acute) Abdominal distension (Acute) GRACIELA (acute kidney injury) UGIB (upper gastrointestinal bleed) GAVE (gastric antral vascular ectasia) Esophagitis PAF (paroxysmal atrial fibrillation) Positive blood culture CKD (chronic kidney disease) stage 4, GFR 15-29 ml/min Severe sepsis Symptomatic anemia (Acute) Metabolic encephalopathy (Acute) Alcoholic cirrhosis of liver with ascites (Acute) Abdominal ascites (Acute) Blunt trauma of nose Blunt trauma of face Hypoxia (Acute) Pancytopenia (Acute) Influenza A (Acute) Tobacco use Hypomagnesemia (Acute) Hyponatremia (Acute) Hypokalemia (Acute) Multifocal pneumonia (Acute) Sepsis (Acute) Encounter for pre-operative examination Alcohol use (Acute) Fall (Acute) Medical History Hypervolemia Symptomatic anemia hospitalized [facility] 02/26/24 for issues related to this Poor historian main details obtained from [place] med record Alcoholic cirrhosis of liver with ascites hospitalized [facility] 02/26/24 for issues related to this Metabolic encephalopathy hospitalized [facility] 02/26/24 for issues related to this PAF (paroxysmal atrial fibrillation) pt denies; hospitalized [facility] 02/26/24, evaluated by tae garcia per cardio consult Esophagitis History of severe sepsis hospitalized 02/26/24, [facility] 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 per med record; hospitalized [facility] 02/26/24 for issues related to this Orthostatic hypotension "he thinks" COPD (chronic obstructive pulmonary disease) History of pneumonia 07/2023, 02/26/24, hospitalized [facility] 02/26/24 for issues related to this S/P abdominal paracentesis 03/21/2024, [facility] Current every day smoker Surgical History History of esophagogastroduodenoscopy (EGD) S/P cataract extraction right eye/left History of tonsillectomy History of hernia surgery infancy Family History Mother Stroke Diabetes Other Colorectal cancer Heart disease Social History Smoking Status: Current every day smoker Tobacco Type: Cigarettes Cigarettes Per Day: 8; Second Hand Exposure: No; Do You Dip or Chew Tobacco: No; Hx Alcohol Use: No Hx Substance Use: Yes Substance Use Type Other:: marijuana Preferred Language: [place] Communication Ability: Effective Team Psychologist Required: No Beliefs That Will Affect Care: None Current Living Situation: Other Current Living Situation Comment: roommate Feels Safe at Home: Yes Assistive Devices: None Allergies Allergies Allergy/AdvReac Type Severity Reaction Status Date / Time Penicillins Allergy Unknown pt unsure Verified 05/20/24 14:32 of reaction Home Meds Home Medications Medication Instructions Recorded Confirmed fluticasone furoate 100 1 inh inhalation DAILY 08/21/24 08/21/24 mcg/actuation blister powder for inhalation (Arnuity Ellipta) folic acid 1 mg tablet 1 mg PO DAILY 08/21/24 08/21/24 gabapentin 300 mg capsule 300 mg PO TID 08/21/24 08/21/24 hydroxyzine HCl 10 mg tablet 10 mg PO Q6H PRN Itching 08/21/24 08/21/24 lactulose 10 gram/15 mL oral 30 ml PO BID 08/21/24 08/21/24 solution (Constulose) midodrine 5 mg tablet 5 mg PO TID 08/21/24 08/21/24 pantoprazole 40 mg tablet,delayed 40 mg PO BID 08/21/24 08/21/24 release spironolactone 100 mg tablet 100 mg PO DAILY 08/21/24 08/21/24 torsemide 20 mg tablet 40 mg PO BID 08/21/24 08/21/24 trazodone 50 mg tablet 50 mg PO HS 08/21/24 08/21/24 Results & Data (ED) Vital Signs Vital Signs - 24 hr 09/04/24 04:59 09/04/24 05:02 09/04/24 05:07 Temperature 36.5 C 36.8 C Temperature Source Oral Temporal Artery Scan Pulse Rate 81 78 Pulse Rate [Right Finger] 80 Pulse Rhythm Regular Pulse Strength Normal Respiratory Rate 17 18 20 Respiratory Effort / Characteristics Non-Labored Spontaneous Non-Labored Spontaneous Respiratory Depth Normal Normal Respiratory Pattern Regular Blood Pressure 126/73 Blood Pressure [Left Arm] 130/82 Blood Pressure Mean 90 Blood Pressure Mean [Left Arm] 98 Blood Pressure Position Sitting Blood Pressure Position [Left Arm] Pulse Oximetry 96 97 97 Oxygen Delivery Method Room Air Room Air Room Air Sepsis Recent Fever Within 48 Hours No Sepsis New/Unexplained Change in Mental Status N/A Sepsis Action Taken by Nursing No Action Required 09/04/24 05:23 09/04/24 07:00 Temperature Temperature Source Pulse Rate 70 Pulse Rate [Right Finger] 80 Pulse Rhythm Pulse Strength Respiratory Rate Respiratory Effort / Characteristics Respiratory Depth Respiratory Pattern Blood Pressure Blood Pressure [Left Arm] 126/71 Blood Pressure Mean Blood Pressure Mean [Left Arm] 89 Blood Pressure Position Blood Pressure Position [Left Arm] Lying Pulse Oximetry 96 Oxygen Delivery Method Room Air Sepsis Recent Fever Within 48 Hours Sepsis New/Unexplained Change in Mental Status Sepsis Action Taken by Nursing Laboratory Data 09/04/24 05:07 09/04/24 05:07 Lab Results 09/04/24 09/04/24 09/04/24 Range/Units 05:07 05:23 06:09 WBC 10.13 (4.8-10.8) K/ul RBC 2.99 L (4.70-6.10) M/uL Hgb 8.8 L (14.0-18.0) g/dl Hct 27.5 L (42.0-52.0) % MCV 92.0 (80.0-100.0) fL MCH 29.4 (25.0-34.0) pg MCHC 32.0 (32.0-36.0) g/dL RDW Std Deviation 64.7 H (36.4-46.3) fL RDW Coeff of Ham 19.5 H (11.5-14.5) % Plt Count 192 (130-400) K/uL MPV 9.5 (9.4-12.4) fL Immature Gran % (Auto) 0.9 % Neut % (Auto) 82.0 % Lymph % (Auto) 4.3 % Kent % (Auto) 11.5 % Eos % (Auto) 0.8 % Baso % (Auto) 0.5 % Neut # (Auto) 8.31 H (1.40-6.50) K/uL Lymph # (Auto) 0.44 L (1.20-3.40) K/uL Kent # (Auto) 1.16 H (0.11-0.59) K/uL Eos # (Auto) 0.08 (0.00-0.50) K/uL Baso # (Auto) 0.05 (0.00-0.20) K/uL Immature Gran # (Auto) 0.09 (0.01-0.20) K/uL Sodium 130 L (136-145) mmol/L Potassium 4.4 (3.5-5.1) mmol/L Chloride 96 L (98-107) mmol/L Carbon Dioxide 27 (21-32) mmol/L Anion Gap 7 (3-11) BUN 58 H (6-23) mg/dl Creatinine 1.99 H (0.6-1.4) mg/dl Est Cr Clr Drug Dosing Not Reportable eGFR 39.66 BUN/Creatinine Ratio 29.1 H (10-20) Glucose 178 H (70-99(Fasting)) mg/dl Calcium 8.3 L (8.6-10.3) mg/dl Total Bilirubin 1.1 H (0.2-1.0) mg/dl AST 25 (13-39) U/L ALT 10 (7-52) U/L Alkaline Phosphatase 78 (34-104) U/L Total Protein 6.6 (6.0-8.3) gm/dl Albumin 2.8 L (3.4-5.0) gm/dl Globulin 3.8 (2.5-4.0) gm/dl Albumin/Globulin Ratio 0.7 L (0.9-2) Lipase 72 (11-82) U/L Adenovirus (PCR) Not Detected (NotDetected) B. pertussis DNA (PCR) Not Detected (NotDetected) B.parapertussis DNA PCR Not Detected (NotDetected) C. pneumoniae DNA (PCR) Not Detected (NotDetected) Coronavirus OC43 (PCR) Not Detected (NotDetected) Coronavirus HKU1 (PCR) Not Detected (NotDetected) Coronavirus 229E (PCR) Not Detected (NotDetected) SARS-CoV-2 (PCR) Not Detected (NotDetected) Coronavirus NL63 (PCR) Not Detected (NotDetected) Human Metapneumovir PCR Not Detected (NotDetected) Influenza Type A (PCR) Not Detected (NotDetected) Influenza Type B (PCR) Not Detected (NotDetected) M. pneumoniae (PCR) Not Detected (NotDetected) Parainfluenza 1 (PCR) Not Detected (NotDetected) Parainfluenza 2 (PCR) Not Detected (NotDetected) Parainfluenza 3 (PCR) Not Detected (NotDetected) Parainfluenza 4 (PCR) Not Detected (NotDetected) RSV (PCR) Not Detected (NotDetected) Entero/Rhino (PCR) Not Detected (NotDetected) Blood Type A Negative Antibody Screen NEGATIVE Administered Medications Pantoprazole Sodium 40 mg/ (Dextrose) 100 mls @ 20 mls/hr IV Q5H GAIL Stop: 10/04/24 05:29 Last Admin: 09/04/24 06:05 Dose: 8 mg/hr, 20 mls/hr Documented By: TJS Discontinued Medications Sodium Chloride (Nss) 1,000 mls @ 999 mls/hr IV .Q1H1M ONE Stop: 09/04/24 06:08 Last Infusion: 09/04/24 06:31 Dose: Infused Documented By: Admin: 09/04/24 05:18 Dose: 999 mls/hr Documented By: RISA Pantoprazole Sodium 80 mg/ (Dextrose) 120 mls @ 480 mls/hr IV NOW ONE Stop: 09/04/24 05:27 Last Infusion: 09/04/24 06:31 Dose: Infused Documented By: Admin: 09/04/24 06:05 Dose: 480 mls/hr Documented By: SYBIL Ondansetron HCl (Ondansetron Inj 2 Mg/Ml 2 Ml Vial) 4 mg IV NOW STA Stop: 09/04/24 05:15 Last Admin: 09/04/24 05:19 Dose: 4 mg Documented By: EMB Imaging Data Radiologist's Impression: Abdomen/Pelvis CT 09/04/24 05:16 EXAM: CT abd pelvis wo con CLINICAL HISTORY: Nausea/Vomiting. TECHNIQUE: Non-contrast CT of the abdomen and pelvis was performed, with the following protocol: axial images, and reconstructed coronal and sagittal images. One of the following dose reduction techniques was utilized for this exam: Automated exposure control, adjustment of the mA and/or kV according to patient size, and use of iterative reconstruction. DLP: 1250.7 mGy-cm, CTDI: 23.9 mgy. COMPARISON: CT dated 08/20/2024. FINDINGS: The scanned lower lung shows mild left-sided pleural effusion with underlying consolidation collapse. Widening of the esophageal hiatus with small hiatus hernia and herniation of ascitic fluid was awaiting dilators Coil embolization of the esophageal varices Abdomen: Liver: Shrunken cirrhotic liver. No focal lesions, cysts, or masses were identified. Metallic density noted at the right liver lobe segment 5, likely related to postintervention changes. Gallbladder and Biliary System: Gallbladder stones with no signs of acute cholecystitis. Thick-walled gallbladder with a maximum wall thickness of 4 mm with foci of calcification suggesting possible porcline gallbladder. Pancreas: Pancreatic head, body, and tail are visualized and appear normal in size and density. No pancreatic masses or calcifications were noted. Spleen: Normal in size, shape, and density. No splenic lesions or masses were identified. Appendix: The appendix is normal in size without gita appendiceal fat stranding and without an appendicolith. No evidence of appendiceal abscess or perforation. Kidneys and Adrenal Glands: Few bilateral renal cysts, the largest noted on the right side measures 24x27 mm with calcific septations, likely complex, MRI with contrast is needed. Both kidneys are normal in size, shape, and position. Cortical thickness is within normal limits. No renal calculi or hydronephrosis. Adrenal glands are unremarkable. Abdominal Aorta and Vessels: The abdominal aorta and major branches are patent without evidence of an aneurysm or significant atherosclerosis. Pelvis: Urinary Bladder: Normal in contour and wall thickness. No intraluminal lesions. Prostate: Normal in size and contour. No masses or abnormal thickening. Seminal Vesicles: Normal appearance without abnormal enlargement or mass. Peritoneal and Retroperitoneal Structures: Marked pelvi-abdominal ascites with stranding of mesenteric fat. No pneumoperitoneum. Bowel: Submucosal edema at the ascending and proximal transverse colon was noted with a maximum thickness of 19 mm likely representing colitis. A contrast study is advised. Multiple colonic diverticuli with the possibility of acute diverticulitis cannot be excluded in the presence of free fluid and stranding of fat. No evidence of bowel obstruction. Bones and Soft Tissues: Pelvic bones and soft tissues are unremarkable. No fractures or abnormal masses were identified. IMPRESSION: 1. Few bilateral renal cysts, the largest noted on the right side measures 24x27 mm with calcific septations, likely complex, MRI with contrast is needed. 2. Marked pelvi-abdominal ascites with stranding of mesenteric fat. No pneumoperitoneum. 3. Mild left-sided pleural effusion with underlying consolidation collapse. 4. Shrunken cirrhotic liver. 5. Gallbladder stones with no signs of acute cholecystitis with possible porcline gallbladder. 6. Submucosal edema at the ascending and proximal transverse colon was noted with a maximum thickness of 19 mm likely representing colitis. Contrast study is advised. 7. Multiple colonic diverticuli with the possibility of acute diverticulitis cannot be excluded in the presence of free fluid and stranding of fat. Yet no collections. 8. Compared to the prior study no detected interval changes. Electronically signed by Henrik Branch 09-04-2024 06:52 AM Discharge Plan Visit Data Chief Complaint: Vomiting Stated Complaint: VOMITING ED Provider: Tae Elias Discharge Problem: Vomiting Forms Stand Alone Forms: My [facility] [employer] Prescriptions Prescriptions: No Action torsemide 20 mg tablet 40 mg PO BID trazodone 50 mg tablet 50 mg PO HS spironolactone 100 mg tablet 100 mg PO DAILY midodrine 5 mg tablet 5 mg PO TID pantoprazole 40 mg tablet,delayed release (DR/EC) 40 mg PO BID gabapentin 300 mg capsule 300 mg PO TID folic acid 1 mg tablet 1 mg PO DAILY hydroxyzine HCl 10 mg tablet 10 mg PO Q6H PRN (Reason: Itching) lactulose [Constulose] 10 gram/15 mL solution 30 ml PO BID Arnuity Ellipta 100 mcg/actuation blister with device 1 inh INHALATION DAILY Referrals Referrals: Rina Neil PA-C [Primary Care Provider] -
[2024-09-04] MEDS: SODIUM CHLORIDE 0.9% 1,000 ML IV ONE (05:18)
[2024-09-04] MEDS: ONDANSETRON INJ 2 MG/ML 2 ML VIAL IV STA (05:19)
[2024-09-04 05:41] LABS: Basophils # (auto) 0.05 K/uL (0.00-0.20); Basophils % (auto) 0.5 %; Eosinophils # (auto) 0.08 K/uL (0.00-0.50); Eosinophils % (auto) 0.8 %; Hematocrit (blood only) 27.5 % (42.0-52.0); Hemoglobin 8.8 g/dl (14.0-18.0); Immature Granulocytes # (auto) 0.09 K/uL (0.01-0.20); Immature Granulocytes % (auto) 0.9 %; Lymphocytes # (auto) 0.44 K/uL (1.20-3.40); Lymphocytes % (auto) 4.3 %; Mean Corpuscular Hemoglobin 29.4 pg (25.0-34.0); Mean Platelet Volume 9.5 fL (9.4-12.4); Monocytes # (auto) 1.16 K/uL (0.11-0.59); Monocytes % (auto) 11.5 %; Neutrophils # (auto) 8.31 K/uL (1.40-6.50); Platelet Count 192 K/uL (130-400); RDW Coefficient of Variation 19.5 % (11.5-14.5); RDW Standard Deviation 64.7 fL (36.4-46.3); Red Blood Count 2.99 M/uL (4.70-6.10); White Blood Count 10.13 K/ul (4.8-10.8)
[2024-09-04 05:49] LABS: Alanine Aminotransferase 10 U/L (7-52); Albumin Globulin Ratio 0.7 (0.9-2); Albumin Level 2.8 gm/dl (3.4-5.0); Alkaline Phosphatase 78 U/L (34-104); Anion Gap 7 (3-11); Aspartate Aminotransferase 25 U/L (13-39); BUN Creatinine Ratio 29.1 (10-20); Bilirubin,Total 1.1 mg/dl (0.2-1.0); Blood Urea Nitrogen 58 mg/dl (6-23); Calcium 8.3 mg/dl (8.6-10.3); Carbon Dioxide 27 mmol/L (21-32); Chloride 96 mmol/L (98-107); Globulin 3.8 gm/dl (2.5-4.0); Glucose 178 mg/dl (70-99(Fasting)); Lipase 72 U/L (11-82); Potassium 4.4 mmol/L (3.5-5.1); Sodium 130 mmol/L (136-145); Total Protein 6.6 gm/dl (6.0-8.3)
[2024-09-04] MEDS: PANTOprazole 40 MG in DEXTROSE 5% MINI-B 100 ML IV SCH (06:05)
[2024-09-04] MEDS: PANTOprazole 80 MG in DEXTROSE 5% 100 ML IV ONE (06:05)
--- NOTE | 2024-09-04 06:53 | CT Scan Report ---
EXAM: CT abd pelvis wo con CLINICAL HISTORY: Nausea/Vomiting. TECHNIQUE: Non-contrast CT of the abdomen and pelvis was performed, with the following protocol: axial images, and reconstructed coronal and sagittal images. One of the following dose reduction techniques was utilized for this exam: Automated exposure control, adjustment of the mA and/or kV according to patient size, and use of iterative reconstruction. DLP: 1250.7 mGy-cm, CTDI: 23.9 mgy. COMPARISON: CT dated 08/20/2024. FINDINGS: The scanned lower lung shows mild left-sided pleural effusion with underlying consolidation collapse. Widening of the esophageal hiatus with small hiatus hernia and herniation of ascitic fluid was awaiting dilators Coil embolization of the esophageal varices Abdomen: Liver: Shrunken cirrhotic liver. No focal lesions, cysts, or masses were identified. Metallic density noted at the right liver lobe segment 5, likely related to postintervention changes. Gallbladder and Biliary System: Gallbladder stones with no signs of acute cholecystitis. Thick-walled gallbladder with a maximum wall thickness of 4 mm with foci of calcification suggesting possible porcline gallbladder. Pancreas: Pancreatic head, body, and tail are visualized and appear normal in size and density. No pancreatic masses or calcifications were noted. Spleen: Normal in size, shape, and density. No splenic lesions or masses were identified. Appendix: The appendix is normal in size without gita appendiceal fat stranding and without an appendicolith. No evidence of appendiceal abscess or perforation. Kidneys and Adrenal Glands: Few bilateral renal cysts, the largest noted on the right side measures 24x27 mm with calcific septations, likely complex, MRI with contrast is needed. Both kidneys are normal in size, shape, and position. Cortical thickness is within normal limits. No renal calculi or hydronephrosis. Adrenal glands are unremarkable. Abdominal Aorta and Vessels: The abdominal aorta and major branches are patent without evidence of an aneurysm or significant atherosclerosis. Pelvis: Urinary Bladder: Normal in contour and wall thickness. No intraluminal lesions. Prostate: Normal in size and contour. No masses or abnormal thickening. Seminal Vesicles: Normal appearance without abnormal enlargement or mass. Peritoneal and Retroperitoneal Structures: Marked pelvi-abdominal ascites with stranding of mesenteric fat. No pneumoperitoneum. Bowel: Submucosal edema at the ascending and proximal transverse colon was noted with a maximum thickness of 19 mm likely representing colitis. A contrast study is advised. Multiple colonic diverticuli with the possibility of acute diverticulitis cannot be excluded in the presence of free fluid and stranding of fat. No evidence of bowel obstruction. Bones and Soft Tissues: Pelvic bones and soft tissues are unremarkable. No fractures or abnormal masses were identified. IMPRESSION: 1. Few bilateral renal cysts, the largest noted on the right side measures 24x27 mm with calcific septations, likely complex, MRI with contrast is needed. 2. Marked pelvi-abdominal ascites with stranding of mesenteric fat. No pneumoperitoneum. 3. Mild left-sided pleural effusion with underlying consolidation collapse. 4. Shrunken cirrhotic liver. 5. Gallbladder stones with no signs of acute cholecystitis with possible porcline gallbladder. 6. Submucosal edema at the ascending and proximal transverse colon was noted with a maximum thickness of 19 mm likely representing colitis. Contrast study is advised. 7. Multiple colonic diverticuli with the possibility of acute diverticulitis cannot be excluded in the presence of free fluid and stranding of fat. Yet no collections. 8. Compared to the prior study no detected interval changes. Electronically signed by Henrik Branch 09-04-2024 06:52 AM
[2024-09-04 07:05] LABS: Adenovirus PCR Not Detected (NotDetected); Bordetella parapertussis PCR Not Detected (NotDetected); Bordetella pertussis PCR Not Detected (NotDetected); Chlamydia pneumoniae PCR Not Detected (NotDetected); Coronavirus 229E PCR Not Detected (NotDetected); Coronavirus CoV-2 (COVID19)PCR Not Detected (NotDetected); Coronavirus HKU1 PCR Not Detected (NotDetected); Coronavirus NL63 PCR Not Detected (NotDetected); Coronavirus OC43PCR Not Detected (NotDetected); Human Metapneumovirus PCR Not Detected (NotDetected); Influenza A PCR Not Detected (NotDetected); Influenza B PCR Not Detected (NotDetected); Mycoplasma pneumoniae PCR Not Detected (NotDetected); Parainfluenza Virus 1 PCR Not Detected (NotDetected); Parainfluenza Virus 2 PCR Not Detected (NotDetected); Parainfluenza Virus 3 PCR Not Detected (NotDetected); Parainfluenza Virus 4 PCR Not Detected (NotDetected); Respiratory Syncytial VirusPCR Not Detected (NotDetected); Rhinovirus/Enterovirus PCR Not Detected (NotDetected)
--- NOTE | 2024-09-04 07:36 | History & Physical Report ---
Date of Service September 04, 2024 Assessment & Plan (1) Acute colitis: (2) Nausea and vomiting: (3) Ascites due to alcoholic cirrhosis: Plan Rashel Amador (Danny) is a 54y/o M with PMHx significant for ascites due to alcoholic cirrhosis with weekly paracentesis, alcohol dependence in remission, gastric antral vascular ectasia, portal HTN, esophageal varices, duodenal varices, CKD stage IV, thrombocytopenia, chronic anemia, hyponatremia, severe protein-energy malnutrition, tobacco use disorder and COPD who presented to the ED on 09/04/24 with complaints of nausea and vomiting. Patient recently presented to the [facility] on 08/20/24 with symptomatic anemia due to profound drop in Hgb down to 3.3 2/2 GI bleed ISO bleeding duodenal varices. He was ultimately transferred to [facility] for IR intervention on 08/21/24. He received a total of 4 units of PRBCs prior to arriving at [facility] and then received an additional 4 units of PRBCs while admitted at [facility] [total = 8 units of PRBCs; most recent transfusion on 09/02/24]. EGD at [facility] revealed large duodenal varices with stigmata of bleeding. He underwent variceal embolization on 08/31/24 with paracentesis performed by IR. Patient declined TIPS procedure given risks of procedure. He was discharged home on 09/02/24 with a Hgb of 6.9 (baseline Hgb ~6-8) and Cr of 1.8 (baseline Cr ~1.6-2). Patient has been dealing with multiple episodes of nausea and vomiting since being discharged from [facility]. His oral intake has been extremely poor due to this. He describes a sensation of fullness in his abdominal region. He undergoes paracentesis usually 1 or 2x/week with IR at [facility] and has ~1L of fluid removed each time. Next outpatient paracentesis appointment isn't until 09/09/24. He noted a possible dark discoloration of his vomit this morning however he is unsure if it was blood-tinged due to poor lighting in his residence. Ascites 2/2 alcoholic cirrhosis Nausea & vomiting, acute colitis: Hemodynamically stable in ED. S/p 1L NSS in ED. IV Protonix bolus + drip i nitiated in ED - will continue. Lab work reviewed. Hgb stable at 8.8 - no indication to transfuse at this time, plt ct WNL. Type/screen done. CTAP mentions suspected colitis in the ascending + small transverse colon and possible acute diverticulitis. Initial infectious workup unremarkable - no leukocytosis, respiratory BioFire panel negative, no fevers/systemic symptoms. Tbili 1.1 and additional LFTs WNL. Plt count WNL. Continue PRN antiemetics. EKG to check QTc. AmLactin ordered ISO extremely itchy/dry skin. Excoriations across abdominal region from itching w/o signs of cellulitis. May benefit from PRN IV Benadryl. CTAP also noted marked pelvi-abdominal ascites with stranding of mesenteric fat, shrunken cirrhotic liver. FOBT still pending to r/o GI bleed although low suspicion given stable Hgb. Notable abdominal distention on exam. Check folate/B12 in AM. Reached out to Aldo Rivas PA-C from IR via TT. Plan for paracentesis today. Sips/chips for now. PRN antiemetics. Hold home meds for now. GI consulted. Reached out to Dr. Ross via TT to make him aware of consult/any possible additional workup required but did not yet hear back. CKD stage IV Renal cysts noted on CTAP: Cr stable on admission, baseline Cr ~1.6-2 per chart review. Continue to closely monitor renal function. Avoid nephrotoxic agents as able. CTAP incidentally noted b/l renal cysts - largest on R side measuring 24 x 27mm with calcific septations. MRI with contrast to further evaluate R renal cyst recommended given its likely complex nature - however can be done as an o/p given stable renal function. COPD, noted mild L-sided pleural effusion on CTAP: CTAP also revealed a mild L-sided pleural effusion with underlying consolidation collapse. Patient continues to saturate well on RA. Denies any SOB, chest pain or increas ed WOB. Has chronic cough which is unchanged. No indication for intervention at this time to drain the pleural effusion. Continue to closely monitor respiratory as well as volume statuses. Continue home inhaler. Chronic hyponatremia: Na 130 on admission. S/p 1L NSS in ED. Suspect 2/2 poor po intake. Continue to monitor Na closely. DVT Prophylaxis: SCDs/TEDs ISO chronic anemia 2/2 alcoholic cirrhosis. Code Status: FULL CODE - Per direct discussion with patient in ED. PCP: Rina Neil PA-C Disposition: Observation in PCU/Telemetry for further inpatient evaluation and management. Patient seen in collaboration with Dr. Mark. Please see addendum. I spent a total of 60 minutes coordinating, documenting, and providing care for this patient excluding time spent in the performance of separately billed services or time spent by another provider/QHP. This included personally reviewing all current laboratories and imaging studies, medical reconciliation, outpatient chart review and discussion with specialists. This chart was completed in part utilizing Speech Voice Recognition Software. Grammatical errors, random word insertions, pronoun errors, and incomplete sentences are an occasional consequence of this system due to software limitations, ambient noise, and hardware issues. Any formal questions or concerns about the content, text, or information contained within the body of this dictation should be directly addressed to the provider for clarification. History of Present Illness Chief Complaint: Nausea/Vomiting Primary Care Provider: Rina Neil PA-C Rashel Amador (Danny) is a 54y/o M with PMHx significant for ascites due to alcoholic cirrhosis with weekly paracentesis, alcohol dependence in remission, gastric antral vascular ectasia, portal HTN, esophageal varices, duodenal varices, CKD stage IV, thrombocytopenia, chronic anemia, hyponatremia, severe protein-energy malnutrition, tobacco use disorder and COPD who presented to the ED on 09/04/24 with complaints of nausea and vomiting. History obtained from the patient, patient's roommate at bedside and associated chart review. Patient seen at bedside in the ED with Dr. Mark. Patient recently presented to the [facility] on 08/20/24 with symptomatic anemia due to profound drop in Hgb down to 3.3 secondary to GI bleed in the setting of bleeding duodenal varices. He was ultimately transferred to [facility] for IR intervention on 08/21/24. He received a total of 4 units of PRBCs upon arriving to [facility]. EGD at [facility] revealed large duodenal varices with stigmata of bleeding. He is now s/p variceal embolization on 08/31/24 with paracentesis performed by IR. Patient declined TIPS procedure given risks of procedure. Patient was discharged home on 09/02/24 with a Hgb of 6.9 (baseline Hgb ~6-8) and Cr of 1.8 (baseline Cr ~1.6-2). Patient has been dealing with multiple episodes of nausea and vomiting since being discharged from [facility]. His oral intake has been extremely poor due to this. He describes a sensation of fullness in his abdominal region. He undergoes paracentesis usually 1 or 2x/week with IR here at [facility] and has ~1L of fluid removed each time. Next outpatient pa racentesis appointment isn't until 09/09/24. He noted a possible dark discoloration of his vomit this morning however he is unsure if it was blood- tinged due to poor lighting in his residence. He endorses significantly dry skin and persistent itching, especially across his abdominal region. He has multiple excoriations across his abdomen from itching it constantly. He has 2 surgical bandages which are C/D/I on his abdominal region from the paracentesis while at [facility]. No reported fevers, chills or body aches. He has a chronic moist- sounding cough but denies any SOB or chest pain. No reported episodes of diarrhea or any discoloration in his stool. Hemodynamically stable in ED. S/p 1L NSS and IV Protonix bolus + drip initiated. No leukocytosis. Type/screen completed. Hgb stable at 8.8 in ED (compared to Hgb 6.9 on 09/02/24). Platelet count WNL. Cr stable at 1.99 and Tbili 1.1 (compared to Tbili 2.5 on 08/21/24). Additional LFTs WNL. Respiratory BioFire panel negative. FOBT still pending. CTAP w/o contrast noted suspected colitis in the ascending and small transverse colon as well as possible acute diverticulitis. Allergies Allergy/AdvReac Type Severity Reaction Status Date / Time Penicillins Allergy Unknown pt unsure Verified 09/04/24 08:29 of reaction Home Medications Medication Instructions Recorded Confirmed Type fluticasone furoate 100 1 inh inhalation DAILY 08/21/24 09/04/24 History mcg/actuation blister powder for inhalation (Arnuity Ellipta) folic acid 1 mg tablet 5 mg PO DAILY 08/21/24 09/04/24 History gabapentin 300 mg capsule 300 mg PO TID 08/21/24 09/04/24 History hydroxyzine HCl 10 mg tablet 10 mg PO Q6H PRN Itching 08/21/24 09/04/24 History midodrine 5 mg tablet 5 mg PO TID 08/21/24 09/04/24 History spironolactone 100 mg tablet 100 mg PO DAILY 08/21/24 09/04/24 History torsemide 20 mg tablet 40 mg PO BID 08/21/24 09/04/24 History cholestyramine (with sugar) 4 gram 4 g PO TID 09/04/24 09/04/24 History oral powder lactulose 10 gram/15 mL oral 30 ml PO BID 09/04/24 09/04/24 History solution (Constulose) rifaximin 550 mg tablet 550 mg PO BID 09/04/24 09/04/24 History trazodone 50 mg tablet 50 mg PO HS 09/04/24 09/04/24 History Past Med/Surg History Problem List Acute colitis Nausea and vomiting Ascites due to alcoholic cirrhosis Vomiting (Acute) Symptomatic anemia Hyperammonemia (Acute) Acute hyperkalemia (Acute) Acute hyponatremia (Acute) Weakness (Acute) Anemia (Acute) GRACIELA (acute kidney injury) (Acute) GI bleed (Acute) Dysphagia Chronic kidney disease, stage 4 (severe) Hypoalbuminemia (Acute) Low hemoglobin (Acute) History of upper gastrointestinal bleeding Hepatorenal syndrome Anemia (Acute) Abdominal ascites (Acute) SOB (shortness of breath) (Acute) Abdominal distension (Acute) GRACIELA (acute kidney injury) UGIB (upper gastrointestinal bleed) GAVE (gastric antral vascular ectasia) Esophagitis PAF (paroxysmal atrial fibrillation) Positive blood culture CKD (chronic kidney disease) stage 4, GFR 15-29 ml/min Severe sepsis Symptomatic anemia (Acute) Metabolic encephalopathy (Acute) Alcoholic cirrhosis of liver with ascites (Acute) Abdominal ascites (Acute) Blunt trauma of nose Blunt trauma of face Hypoxia (Acute) Pancytopenia (Acute) Influenza A (Acute) Tobacco use Hypomagnesemia (Acute) Hyponatremia (Acute) Hypokalemia (Acute) Multifocal pneumonia (Acute) Sepsis (Acute) Encounter for pre-operative examination Alcohol use (Acute) Fall (Acute) Medical History Hypervolemia Symptomatic anemia hospitalized [facility] 02/26/24 for issues related to this Poor historian main details obtained from [place] med record Alcoholic cirrhosis of liver with ascites hospitalized [facility] 02/26/24 for issues related to this Metabolic encephalopathy hospitalized [facility] 02/26/24 for issues related to this PAF (paroxysmal atrial fibrillation) pt denies; hospitalized [facility] 02/26/24, evaluated by tae garcia per cardio consult Esophagitis History of severe sepsis hospitalized 02/26/24, [facility] 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 per med record; hospitalized [facility] 02/26/24 for issues related to this Orthostatic hypotension "he thinks" COPD (chronic obstructive pulmonary disease) History of pneumonia 07/2023, 02/26/24, hospitalized [facility] 02/26/24 for issues related to this S/P abdominal paracentesis 03/21/2024, [facility] Current every day smoker Surgical History History of esophagogastroduodenoscopy (EGD) S/P cataract extraction right eye/left History of tonsillectomy History of hernia surgery infancy Family History Mother Stroke Diabetes Other Colorectal cancer Heart disease Social History Smoking Status: Current some day smoker Tobacco Type: Cigarettes Cigarettes Per Day: 8; Second Hand Exposure: No; Do You Dip or Chew Tobacco: No; Tobacco Cessation Education Requested by Patient: No Hx Alcohol Use: No Hx Substance Use: No Preferred Language: Monegasque Communication Ability: Effective Reduction Furnace Operator Required: No Beliefs That Will Affect Care: None Current Living Situation: Spouse Current Living Situation Comment: roommate Other Information That Helps Us Care for You: No Feels Safe at Home: Yes Safety Concerns: Feels Safe At This Time Assistive Devices: Glasses Review of Systems Review of Systems: At least ten systems reviewed and negative, except as noted in the HPI. Physical Exam Physical Exam: Please refer to Dr. Mark' addendum for physical examination findings. Results & Data Results & Data Vital Signs (Past 12 Hours) Vital Signs Temp Pulse Pulse Resp BP BP Pulse Ox 09/04/24 07:00 80 126/71 96 09/04/24 05:23 70 02/05/25 05:07 78 20 97 09/04/24 05:02 36.8 C 81 18 126/73 97 09/04/24 04:59 36.5 C 80 17 130/82 96 O2 Del Method 09/04/24 07:00 Room Air 09/04/24 05:23 09/04/24 05:07 Room Air 09/04/24 05:02 Room Air 09/04/24 04:59 Room Air Laboratory Results Short CBC 09/04/24 Range/Units 05:07 WBC 10.13 (4.8-10.8) K/ul Hgb 8.8 L (14.0-18.0) g/dl Hct 27.5 L (42.0-52.0) % Plt Count 192 (130-400) K/uL BMP 09/04/24 05:07 Sodium 130 L Potassium 4.4 Chloride 96 L Carbon Dioxide 27 BUN 58 H Creatinine 1.99 H Glucose 178 H Calcium 8.3 L Liver Function 09/04/24 Range/Units 05:07 Total Bilirubin 1.1 H (0.2-1.0) mg/dl AST 25 (13-39) U/L ALT 10 (7-52) U/L Alkaline Phosphatase 78 (34-104) U/L Albumin 2.8 L (3.4-5.0) gm/dl Diagnostic Findings Abdomen/Pelvis CT 09/04/24 05:16 EXAM: CT abd pelvis wo con CLINICAL HISTORY: Nausea/Vomiting. TECHNIQUE: Non-contrast CT of the abdomen and pelvis was performed, with the following protocol: axial images, and reconstructed coronal and sagittal images. One of the following dose reduction techniques was utilized for this exam: Automated exposure control, adjustment of the mA and/or kV according to patient size, and use of iterative reconstruction. DLP: 1250.7 mGy-cm, CTDI: 23.9 mgy. COMPARISON: CT dated 08/20/2024. FINDINGS: The scanned lower lung shows mild left-sided pleural effusion with underlying consolidation collapse. Widening of the esophageal hiatus with small hiatus hernia and herniation of ascitic fluid was awaiting dilators Coil embolization of the esophageal varices Abdomen: Liver: Shrunken cirrhotic liver. No focal lesions, cysts, or masses were identified. Metallic density noted at the right liver lobe segment 5, likely related to postintervention changes. Gallbladder and Biliary System: Gallbladder stones with no signs of acute cholecystitis. Thick-walled gallbladder with a maximum wall thickness of 4 mm with foci of calcification suggesting possible porcline gallbladder. Pancreas: Pancreatic head, body, and tail are visualized and appear normal in size and density. No pancreatic masses or calcifications were noted. Spleen: Normal in size, shape, and density. No splenic lesions or masses were identified. Appendix: The appendix is normal in size without gita appendiceal fat stranding and without an appendicolith. No evidence of appendiceal abscess or perforation. Kidneys and Adrenal Glands: Few bilateral renal cysts, the largest noted on the right side measures 24x27 mm with calcific septations, likely complex, MRI with contrast is needed. Both kidneys are normal in size, shape, and position. Cortical thickness is within normal limits. No renal calculi or hydronephrosis. Adrenal glands are unremarkable. Abdominal Aorta and Vessels: The abdominal aorta and major branches are patent without evidence of an aneurysm or significant atherosclerosis. Pelvis: Urinary Bladder: Normal in contour and wall thickness. No intraluminal lesions. Prostate: Normal in size and contour. No masses or abnormal thickening. Seminal Vesicles: Normal appearance without abnormal enlargement or mass. Peritoneal and Retroperitoneal Structures: Marked pelvi-abdominal ascites with stranding of mesenteric fat. No pneumoperitoneum. Bowel: Submucosal edema at the ascending and proximal transverse colon was noted with a maximum thickness of 19 mm likely representing colitis. A contrast study is advised. Multiple colonic diverticuli with the possibility of acute diverticulitis cannot be excluded in the presence of free fluid and stranding of fat. No evidence of bowel obstruction. Bones and Soft Tissues: Pelvic bones and soft tissues are unremarkable. No fractures or abnormal masses were identified. IMPRESSION: 1. Few bilateral renal cysts, the largest noted on the right side measures 24x27 mm with calcific septations, likely complex, MRI with contrast is needed. 2. Marked pelvi-abdominal ascites with stranding of mesenteric fat. No pneumoperitoneum. 3. Mild left-sided pleural effusion with underlying consolidation collapse. 4. Shrunken cirrhotic liver. 5. Gallbladder stones with no signs of acute cholecystitis with possible porcline gallbladder. 6. Submucosal edema at the ascending and proximal transverse colon was noted with a maximum thickness of 19 mm likely representing colitis. Contrast study is advised. 7. Multiple colonic diverticuli with the possibility of acute diverticulitis cannot be excluded in the presence of free fluid and stranding of fat. Yet no collections. 8. Compared to the prior study no detected interval changes. Electronically signed by Henrik Branch 09-04-2024 06:52 AM Medications Administered Pantoprazole Sodium 40 mg/ (Dextrose) 100 mls @ 20 mls/hr IV Q5H GAIL Stop: 10/04/24 05:29 Last Admin: 09/04/24 06:05 Dose: 8 mg/hr, 20 mls/hr Documented By: SYBIL Discontinued Medications Sodium Chloride (Nss) 1,000 mls @ 999 mls/hr IV .Q1H1M ONE Stop: 09/04/24 06:08 Last Infusion: 09/04/24 06:31 Dose: Infused Documented By: Admin: 09/04/24 05:18 Dose: 999 mls/hr Documented By: RISA Pantoprazole Sodium 80 mg/ (Dextrose) 120 mls @ 480 mls/hr IV NOW ONE Stop: 09/04/24 05:27 Last Infusion: 09/04/24 06:31 Dose: Infused Documented By: Admin: 09/04/24 06:05 Dose: 480 mls/hr Documented By: SYBIL Ondansetron HCl (Ondansetron Inj 2 Mg/Ml 2 Ml Vial) 4 mg IV NOW STA Stop: 09/04/24 05:15 Last Admin: 09/04/24 05:19 Dose: 4 mg Documented By: RISA Code Status & VTE Plan Code Status FULL CODE Supervising Physician Co-Signing Physician Notes I have seen and discussed the case with the collaborating advanced practitioner. I agree with the above H&P. I have reviewed and confirmed the patients medical history, the findings on physical examination, and the patients diagnosis and treatment plan with Pierre NEW and agree with the information documented. In short, Mr. Aamdor is a 54 yo gentleman with cirrhosis admitted for nausea and vomiting s/p embolization procedure at [facility]. Patient refuses to return to [place]. S/p paracentesis. CTX for ppx given history. follow up fluid studies Continue PPI drip--hgb stable. Trend labs. Resume home meds. Amlactin to abdomen and extremities 2/2 xerosis GENERAL APPEARANCE: AxOx4, chronically ill appearing gentleman HEENT: NC, AT. MMM. EOMI, clear conjunctiva, oropharynx clear. NECK: Supple without lymphadenopathy. No stiffness or restricted ROM. HEART: Normal rate and regular rhythm, normal S1/S1, no m/r/g LUNGS: diminished bibasilar breathsounds ABDOMEN: distended, fluid shift BACK: No CVAT, no obvious deformity. EXTREMITIES: nonpitting edema BLE. NEUROLOGICAL: Grossly nonfocal. Alert and oriented, moving all 4 extremities. CN not formally tested but appear grossly intact Skin:diffuse excoriations 2/2 xerosis on abdomen and extremeities : I spent a total of 25 minutes coordinating, documenting, and providing care for this patient excluding time spent in the performance of separately billed services. All of the aforementioned completed outside of collaborating with the assigned advanced practitioner for a full treatment plan. I have reviewed the advanced practitioner's documentation, and I agree with, and take responsibility for the plan of care (2) Nausea and vomiting Vomiting type: unspecified Qualified Code(s): R11.2 - Nausea with vomiting, unspecified
[2024-09-04] MEDS ORDERED: POLYETHYLENE (MIRALAX) 17 GM PACK PO PRN (08:36)
[2024-09-04] MEDS ORDERED: MAGNESIUM HYDROXIDE SUSP 30 ML UDC PO PRN (08:36)
[2024-09-04] MEDS ORDERED: ONDANSETRON INJ 2 MG/ML 2 ML VIAL IV PRN (08:36)
--- OUTSIDE RECORDS SUMMARY | 2024-09-04 08:52 | External Medical Summary | Summary of Care ---
Author Name Unknown Organization [facility] Address [address] [facility] [place] [address] Phone [phone] Care Team Providers Care Manager Lab Name Role Phone Rina Neil PA-C Primary Care Provider [phone] Reason for Visit * Reason Onset Date Comments Hospital Follow-Up 2024 [facility] [place] Encounter Details Date Type Department Care Team (Late st Contact Info) Description 2024 Telephone Family Practice [facility] [place] [address] [facility] [address] [place] [address] Clarita Rivas, RN Hospital Follow-Up ([facility] [place]) Allergies Active Allergy Reactions Criticality Noted Date Comments Penicillins Unknown 08/09/2023 documented as of this encounter (statuses as of 09/04/2024) Medications Pantoprazole Sodium 40 MG Oral Tablet [...] and 1 Capsule before bedtime. 90 Capsule 04/03/2024 Active Fluticasone Furoate 100 MCG/ACT Inhalation Aerosol Powder Breath Activated (ARNUITY ellipta) Inhale 1 Puff by mouth in the morning. 30 Each 5 04/03/2024 Active Constulose 10 GM/15ML Oral Solution Take 30 mL by mouth in the morning and 30 mL before bedtime. For 3 BM's per day. 04/15/2024 Active Folic Acid 1 MG Oral Tablet Take 5 Tablets by mouth in the morning. 150 Tablet 5 05/07/2024 Active hydrOXYzine HCl 10 MG Oral Tablet [...] Packet 3 07/15/2024 10/14/19 25 Active Nicotine 14 MG/24HR Transdermal Patch [...] then stop. 14 Patch 1 07/15/2024 Active rifAXIMin 550 MG Oral Tablet (Xifaxan) Take 1 Tablet by mouth in the morning and 1 Tablet before bedtime. 60 Tablet 1 09/02/2024 Active documented as of this encounter (statuses as of 09/04/2024) Active Problems Problem Noted Date Diagnosed Date Preoperative cardiovascular examination 08/27/19 25 Iron deficiency anemia due to chronic blood loss 08/26/2024 Portal hypertension 08/26/2024 Hyponatremia 08/23/2024 Anemia 08/21/2024 Acute hyperkalemia 08/21/2024 Secondary esophageal varices with bleeding 05/29 Thrombocytopenia, [...] as of this encounter (statuses as of 09/04/2024) Resolved Problems Problem Noted Date Diagnosed Date Resolved Date Upper GI bleed 05/09/2024 05/12/2024 documented as of this encounter (statuses as of 09/04/2024) Immunizations Name Administration Dates Next Due Seasonal Influenza, Trivalent, (IIV3), PF, (Fluz one) 04/03/2024 documented as of this encounter Social History Tobacco Use Types Packs/Day Years Used Date Smoking Tobacco: Every Day Cigarettes 1 34.1 Started: 1990 Smokeless Tobacco: Never Alcohol Use Standard Drinks/Week Comments Not Currently 0 (1 standard drink = 0.6 oz pur e alcohol) last drink 4 months ago Personal Safety Answer Date Recorded Do you feel unsafe or have concerns for your saf ety? No 08/21/2024 Do you have concerns for you r family's safety? (Household - for ages 0-17 years) Not on file 08/21/2024 Utilities Answer Date Recorded Do you have trouble paying y our heating, water, or electric bill? No 08/21/2024 Is your family able to pay t he heat, water, or electric bill? (Household - for ages 0-17 years) Not on file 08/21/2024 Does your family have access to good internet? (Household - for ages 0-17 years) Not on file 08/21/2024 Transportation Needs Answer Date Record ed Do you have trouble getting a ride to medical visits or work? (Adult - for ages 18 years and over) Not on file 08/21/2024 Does your family have a hard time getting a ride to doctors visits? (Household - for ages 0-17 years) Not on file 08/21/2024 Has lack of transportation k ept you from medical appointments, meetings, work, or from getting things needed for daily living? Check all that apply. No 08/21/2024 Do you (or your family) have trouble finding or paying for a ride (transportation)? (Household - for ages 0-17 years) Not on file 08/21/2024 Housing Stability Answer Date Recorded Do you currently live in a s helter or have no steady place to sleep at night? (Adult - for ages 18 years and over) Not on file 08/21/2024 Do you think you are at risk of becoming homeless? (Adult - for ages 18 years and over) Not on file 08/21/2024 Does your family worry about paying for your home or becoming homeless? (Household - for ages 0-17 years) Not on file 0 08/21/2024 Are you homeless or worried that you might be in the future? No 08/21/2024 Are you (or your family) rj eless or worried that you might be in the future? (Household - for ages 0-17 years) Not on file Food Insecurity Answer Date Recorded Do you need food for this week? No 08/21/2024 Are you able to get enough f ood for your family? (Household - for ages 0-17 years) Not on file 08/21/2024 Does your family need food t his week? (Household - for ages 0-17 years) Not on file 08/21/2024 Do you always have enough fo od for your family? (Household - for ages 0-17 years) Not on file 08/21/2024 Sex and Gender Information Value Date Recorded [...] Telephone Encounter - Clarita Rivas RN - 2024 11:09 AM EST Transitions of Care Note Reason for Referral:Recent Admission Phone visit for follow up: ANAID Admitted to: [facility] , Date: 08/21 Discharged to: Home , Date: 09/02/24 Diagnosis driving hospitalization: cirrhosis Source/Contact: Patient SUBJECTIVE Consent: Verbal consent for review of hospital discharge: Yes REVIEW OF SYSTEMS Patient/Other Reports: Current patient/caregiver problems or concerns: abdominal pain s/p varices banding CV: Denies problems Pulmonary: Denies problems Chills/Sweats/Fever:Denies chills/sweats Denies fever Appetite:has to eat slow otherwise will get very nauseous Current diet: soft/bland Bowel: denies problems Bladder: denies problems Wound (If applicable): N/A Pain:Location- abdominal pain, states "stomach musle" pain Sleep:Denies problems FUNCTIONAL STATUS: ADL'S: Needs Assistance With:N/A as pt is independent IADL'S: Needs Assistance With:N/A as pt is independent Cognitive and Mental Health: denies problems, alert and oriented x 3, and able to communicate, understand instructions, process information. MEDICATION RECONCILIATION Medications: Discharge med list reviewed with patient or caregiver New medication(s) filled since hospitalization- Xifaxan, patient on his way to package pick up prescriptionat time of ANAID call OBJECTIVE ASSESSMENT Medication Risk Assessment: No risks identified Did patient fail outpatient treatment? No Discharge instructions available for review? Yes PLAN Symptom Monitoring Interventions:Member/caregiver education - signs and symptoms to contact PrimaryCare (DO NOT DELETE-Three ramirez symptoms patient is to report to PCP) 1. edema 2. Vomiting/hematemesis or hematochezia 3. Weakness, SOB Marine ScientistCotton Farmer of Care interventions/Action Plan: Medication reconciliation and 5 - 7 day follow-up with PCP in place - Date: 09/11 Educated on role of ANAID completed with patient/caregiver. Educated patient/caregiver on patient right to have input on ANAID plan of care. Verification of Home Health/DME if indicated: NO n/a Identified Care Gaps: Yes Care Gaps closed [...] Upcoming Encounters Date Type Department Care Team (Latest Contact Info) Description 09/11/2024 10:20 AM EST Office Visit [facility] [address] [facility] [place] [address] Rina Neil PA-C [address] [facility] [place], [place] [address] 09/26/2024 8:00 AM EST Hospital Encounter CRS Waiting [facility], Cardiac Recovery Suite Waiting Unit, [address] [facility] [place] [address] Rebeca Epps MD [address] [facility] [place] [address] 09/26/2024 8:00 AM EST - 09/26/2024 9:00 AM EST Surgery CRS Waiting [facility] [place] Cardiac Recovery Suite Waiting Unit, [address] [facility] [place] [id number] Rebeca Epps MD [address] [facility] [place] [address] CORONARY ANGIOGRAPHY W/LEFT HEART CATH 09/26/2024 8:00 AM EST Office Visit Cardiology [facility], [place] [address] [facility] [place] [address] [place], Cardiac Recovery [facility] [address] [facility] [place] [address] 01/13/2025 1:45 PM EDT Imaging Radiology [facility] [address] [place] [phone] Scheduled Procedures Name Priority Associated Diagnoses Date/Ti me CORONARY ANGIOGRAPHY W/LEFT HEART CATH Pre-liver transplant, listed 09/26/2024 8:00 AM EST Health Maintenance Due Date Last Done Comments DISCUSS TOBACCO CESSATION (REFER TO SMARTSET #3503) 1972 Depression Screening 1984 Albumin/Creatinine Ratio 1990 Alpha-1 Antitrypsin 1990 Nephrology Referral 1990 PTH 1990 DTap/Tdap Vaccines (1 - Tdap) 1991 Hepatitis B Vaccine (1 of 3 - 19+ 3-dose series) 1991 Pneumococcal Vaccine: 50+ Years (1 of 2 - PCV) 1991 Cologuard 2017 Fecal Occult Blood Test 2017 Sigmoidoscopy 2017 Lung Cancer Screening 2022 Zoster Vaccines (1 of 2) 2022 COVID-19 Vaccine ( - season) 2024 GFR 03/02/2025 09/02/2024, 08/2024, 08/31/2024, Additional history exists O2 ASSESSMENT COMPLETED IN PAST YEAR FOR COPD 08/28/2025 08/28/2024 Hgb 09/02/2025 09/02/2024, 08/2024, 08/31/2024, Additional history exists Phosphate 09/02/2025 09/02/2024, 0 08/2024, 08/31/2024, Additional history exists Diabetes Screening 09/02/2027 09/02/2024, 0 09/01/2024, 08/31/2024, Additional history exists Lipid Panel 07/15/2029 07/15/2024, 05/29/2024 Colonoscopy 08/28/2034 08/28/2024, 08/28/2024 Colorectal Cancer Screening 08/28/2034 Influenza Vaccine (FLU shot) Completed 04/03/2024 HPV (Gardasil) Vaccine Aged Out No lo nger eligible based on patient's age to complete this topic MENINGOCOCCAL (MENACTRA/MENVEO) Aged Out No longer eligible based on patient's age to complete this topic documented as of this encounter Medical Devices Implanted Type Area Physician Coding Specialist Device Identifier Shelf Expiration Date Model / Serial / Lot Pod Packing Coil Jsoft 45cm - [id number] Implanted:Qty: 1 on 05/10/2024 at [facility] [employer] [id number] 09/30/2031 [id number] / / [id number] Azur Detachable 018 7mmx 24cm - [id number] Implanted:Qty: 1 on 05/10/2024 at [facility] [employer] [id number] 08/30/2028 [id number] / / [id number] Pod Packing Coil Jsoft 45cm - [id number] Implanted:Qty: 1 on 05/10/2024 at [facility] [employer] [id number] 12/26/2031 [id number] / / [id number] Coil Radha Soft 4mki43uh - [id number] Implanted:Qty: 1 on 05/10/2024 at [facility] [employer] [id number] 10/07/2031 [id number] / / [id number] Cath Thermodilution 6fr - [id number] Implanted:Qty: 1 on 08/29/2024 by Rebeca Epps MD at [facility] [employer] MARY [id number] 02/18/2026 [id number] / / [id number] Coil Azur Cx Detach 3x8 - [id number] Implanted:Qty: 1 on 08/31/2024 at [facility] [employer] 04/29/2029 [id number] / / [id number] Coil Azur Cx Detach 3x8 - [id number] Implanted:Qty: 1 on 08/31/2024 at [facility] [employer] 04/29/2029 [id number] / / [id number] Coil Azur Cx Detach 2x4 - [id number] Implanted:Qty: 1 on 08/31/2024 at [facility] [employer] [facility] [facility] 05/30/2029 [id number] / / [id number] Lipiodol Injection - [id number] Implanted:Qty: 1 on 08/31/2024 at [facility] [place] [id number]-2 / documented as of this encounter Advance Directives * Full Code (Latest Code Status on File) Date Activated Date Inactivated Comments 08/21/2024 10:21 AM 09/02/2024 4:03 PM This order r eflects the patients wishes and were consensually agreed upon. Question Answer Comments Discussion of Advance Directives occurred with: Patient * Full Code Date Activated Date Inactivated Comments 05/09/2024 7:11 PM 05/12/2024 7:39 PM This order reflects the patients wishes and were consensually agreed upon. Question Answer Comments Discussion of Advance Directives occurred with: Patient Healthcare Agents on File Name Relationship Healthcare Agent Relationshi p Communication Manuelachalo Shen Sibling First Alternate Health Care Agent (per Health Care Power of Plate Glass Installer document) Care Teams Manager Lab Relationship Specialty Start Date End Date JolynnOctober SHAQ Carter [address] [place] [address] PCP - General Physician Bench Lathe Operator 04/10/24 documented as of this encounter
--- OUTSIDE RECORDS SUMMARY | 2024-09-04 08:53 | External Medical Summary | Summary of Care ---
Author Name Unknown Organization [facility] Address [address] [place] [address] Phone [phone] Care Team Providers Care Principal Associate Name Role Phone Mary JoRina toussaint Raul NEW Primary Care Provider [phone] Reason for Visit * Auth/Cert Specialty Diagnoses / Procedures Referred By Rick rodriguez Referred To Contact Diagnoses GI bleed GI Bleed Scott Abreu MD [address] [place] [address] Phone: tel: fax: Admissions, [facility] [address] [place] [address] Referral ID Status Reason Start Date Expiration Date Visits Re quested Visits Authorized [id number] Encounter Details Date Type Department Care Team (Latest Contact Info) Description 08/21/2024 9:32 AM EST - 09/02/2024 11:53 AM EST Hospital Encounter [id number] [facility] 6th Floor [address] [place] [address] Scott Abreu MD [address] [place] [address] Hussein Dodd MD [address] [place] [address] Darcie Hernandez MD [address] [place] [address] Lolita Coyne MD [address] [place] [address] Various: EKG,GICOLON,UGI Discharge Disposition: Home - Self Care Allergies Active Allergy Reactions Criticality Noted Date Comments Penicillins Unknown 08/09/2023 documented as of this encounter (statuses as of 2024) Medications Pantoprazole Sodium 40 MG Oral Tablet Delayed Release (Protonix) Take 1 Tablet by mouth in the morning and 1 Tablet in the evening. 60 Tablet 5 04/03/20 24 Active Gabapentin 300 MG Oral Capsule (Neurontin)Ind ications:Chron ic bilateral low back pain with bilateral sciatica,Pares thesias Take 1 Capsule by mouth in the morning and 1 Capsule at noon and 1 Capsule before bedtime. 90 Capsule 5 04/03/20 24 Active Fluticasone Furoate 100 MCG/ACT Inhalation Aerosol Powder Breath Activated (ARNUITY ellipta) Inhale 1 Puff by mouth in the morning. 30 Each 5 04/03/20 24 Active Constulose 10 GM/15ML Oral Solution Take 30 mL by mouth in the morning and 30 mL before bedtime. For 3 BM's per day. 04/15/20 24 Active Folic Acid 1 MG Oral Tablet Take 5 Tablets by mouth in the morning. 150 Tablet 5 05/07/20 24 Active hydrOXYzine HCl 10 MG Oral Tablet (Atarax) Take 1 Tablet by mouth every 6 hours as needed for Itching. 40 Tablet 2 05/29/20 24 Active traZODone HCl 50 MG Oral Tablet (Desyrel) Take 1 Tablet by mouth at bedtime. 30 Tablet 5 06/11/20 24 Active Cholestyramine 4 GM Oral Packet (Questran) Take 1 Packet by mouth in the morning and 1 Packet at noon and 1 Packet in the evening. Take with meals. 270 Packet 3 07/15/20 24 2024 Active Nicotine 14 MG/24HR Transdermal Patch 24 Hour (Nicoderm CQ) One 14 mg patch daily for 2 wks; then one 7 mg patch daily for 2 wks. Remove old patch daily Do not start before August 26, 2024. 14 Patch 2 08/26/19 25 2024 Active Nicotine 7 MG/24HR Transdermal Patch 24 Hour (Nicoderm CQ) One 7 mg patch daily for 2 weeks; Remove old patch daily; and then stop. 14 Patch 1 07/15/20 24 Active rifAXIMin 550 MG Oral Tablet (Xifaxan) Take 1 Tablet by mouth in the morning and 1 Tablet before bedtime. 60 Tablet 1 09/02/19 Active Torsemide 20 MG Oral Tablet (Demadex) Take 2 Tablets by mouth in the morning and 2 Tablets before bedtime. 360 Tablet 3 04/03/20 24 2024 Discontinued Spironolactone 50 MG Oral Tablet (Aldactone) Take 2 Tablets by mouth in the morning. 04/02/20 24 2024 Discontinued Albumin Human 25 % Intravenous SolutionIndica tions:Alcoholi c cirrhosis of liver with ascites (HCC) Administer 50 mL intravenously once for 1 dose. 50 mL 06/21/20 24 2024 Discontinued Nicotine 21 MG/24HR Transdermal Patch 24 Hour (Nicoderm CQ) One 21 mg patch daily for 6 wks; then one 14 mg patch daily for 2 wks; then one 7 mg patch daily for 2 wks. Remove old patch daily 42 Patch 1 07/15/20 24 2024 Discontinued Midodrine HCl 5 MG Oral Tablet (Proamatine) Take 1 Tablet by mouth in the morning and 1 Tablet at noon and 1 Tablet in the evening. 90 Tablet 3 07/30/20 24 2024 Discontinued documented as of this encounter (statuses as of 2024) Active Problems Problem Noted Date Diagnosed Date Preoperative cardiovascular examination 08/27/19 Iron deficiency anemia due to chronic blood [...] as of this encounter (statuses as of 2024) Resolved Problems Problem Noted Date Diagnosed Date Resolved Date Upper GI bleed 05/09/2024 05/12/2024 documented as of this encounter (statuses as of 2024) Immunizations Name Administration Dates Next Due Seasonal [...] Sign Reading Time Taken Comments Blood Pressure 110/56 09/02/2024 11:15 AM EST Pulse 74 09/02/2024 11:15 AM EST Temperature 36.9 C (98.4 F) 09/02/2024 11:[address] Respiratory Rate 18 09/02/2024 11:15 AM EST Oxygen Saturation 97% 09/02/2024 11:15 AM EST Inhaled Oxygen Concentration - - Weight 87.8 kg (193 lb 8 oz) 09/02/2024 5:06 AM EST Height 165.1 cm (5' 5") 08/24/2024 7:45 PM EST Body Mass Index 32.2 08/24/2024 7:45 PM EST documented in this encounter Functional Status * Are you deaf or do you have serious difficulty hearing? Answer Date of Assessment Author No 05/09/2024 7:00 PM Keisha Logn RN * Are you blind or do [...] Keisha Long RN documented in this encounter Discharge Instructions * Discharge Instr - AVS* Lolita Coyne MD - 09/01/2024 11:46 PM EST Discharge Date: 09/02/24 The information below provides you with the instructions and the list of medications you need to betaking following discharge from the hospital. If you have any questions, please ask before leaving. If you have questions after leaving, you can reach us at the numbers below. YOUR HOSPITAL PROVIDERS: Discharging Provider: oLlita Coyne MD Provider Department: Hospital Medicine To reach this Provider Monday through Monday (8:00 AM to 4:30 PM) for any questions or test results: Call [phone] For after-hours concerns: Call [phone] and have your provider paged, or the provider manager of compensation for the Department of Hospital Medicine paged. Please note, the discharging provider will not be able to provide you with any medications refills.Please discuss these with your primary care provider. Worsening Symptoms: If you have new symptoms, or your symptoms get worse, please contact your Discharge Provider or Primary Care Provider (PCP). If these providers are not available, you can go to your local [facility] or Urgent Care Clinic during their business hours. In an EMERGENCY situation: Call 911 or go to the nearest emergency room. A BRIEF SUMMARY OF YOUR HOSPITAL STAY: You came to the hospital with: generalised weakness Your main diagnosis at discharge was: Symptomatic anemia Decompensated Liver Cirrhosis EV/IGV and duodenal varices s/p embolization Non oliguric GRACIELA on CKD Hyponatremia hyperkalemia Operations & Procedures performed: embolisation of duodenal varices , paracentesis Complications: none significant Inpatient test results that are pending at discharge: none Advance Directive Documented: Advance Directive Does the Patient have an Advance Directive? No YOUR FOLLOW UP APPOINTMENTS: Primary Care Provider Information: PCP: Rina Neil PA-C [address] [place] [address] / [place] [address] (office) [phone] (fax) An appointment was requested with your PCP (Rina Neil PA-C) within 7 days. (Please take this form to this visit with your primary care physician.) You need the following studies in the future: CBC , CMP , INR in a week INSTRUCTIONS: Diet: Normal diet, Fluid restriction - 2 quarts Activity: As tolerated Procedure Date: 09/01/2024 Provider: Dr. Jyoti Santana If you are experiencing any problems related to your procedure, please contact Interventional Radiology at [phone] during normal business hours: Monday - Monday, 8:00 am - 4:00 pm. If a problem occurs outside of normal business hours, please call the hospital rasper machine operator at [phone] and ask for the Interventional Radiologist manager of compensation. Contact scheduling for Interventional Radiology at [phone] during normal business hours: Monday - Monday, 8:00 am - 4:00 pm. The information below provides you with the instructions and the list of medications you need to betaking following discharge from the hospital. If you have any questions, please ask before leaving.Please carry this letter with you when you see your doctor in the clinic. If you have questions, you can reach us at the numbers above. SPECIAL INSTRUCTIONS Angiography or Venography Home Care Keep dressing clean, dry, and intact for 3 days; change as needed. Dressing can be removed in 3 days. Do only light and easy activities for 2-3 days after the procedure. Avoid strenuous activity for 1 week after the procedure. You may shower after 24 hours. Gently wash the area and pat it dry. Please DO NOT take a bath, soak in a hot tub, or swim until the wound is completely healed. Unless told otherwise, drink 6-8 glasses of water a day to prevent dehydration and to help flush your body of the dye that was used during your procedure. Take your temperature and check your incision for signs of infection (redness, swelling, or warmth at the incision site) every day for a week. If your site starts to bleed or swell (access site - wrist), keep wrist raised above the level of the heart and apply pressure to the site for 15 minutes. After the bleeding has stopped, continue to keep your arm raised and contact Interventional Radiology. If bleeding does not stop after 15 minutes, call 911 for emergency assistance or go to the closest Emergency Department. If your incision starts to bleed or swell (access site - groin), lay flat and have someone apply pressure to the incision site for 15 minutes. After the bleeding has stopped, continue to lay flat wagner hour and contact Interventional Radiology. If bleeding does not stop after 15 minutes, call 911 for emergency assistance or go to the closest Emergency Department. When to Call Interventional Radiology Call Interventional Radiology right away if you have any of the following: Fever above 100 degrees Fahrenheit Increased bleeding, redness, swelling, warmth, or discharge at the incision site. Constant or increasing pain, numbness, coldness, or tingling in extremity where the catheter was inserted. If at any time you experience any of the following or feel you are having a medical emergency, [email or web address] for emergency assistance. Chest Pain Sudden, severe shortness of breath Rapid heart rate Sudden onset of weakness See your referring physician for follow-up appointment. Do not smoke or use tobacco products in any way! If you feel suicidal or homicidal, please call the crisis hotline at 4-753-667-TALK ([phone]). MODERATE SEDATION You may have received medication that made you comfortable/sedated you during your procedure. This is considered moderate sedation. This medication was given to relax you. You may also not remember having the procedure done. It may take up to 24 hours for this medication to be out of your system. Because of this, you should observe the following for the next 24 hours: Do not drink alcohol or take depressant drugs. Do not operate any type of machinery that requires hand-eye coordination. Do not sign any legal papers or documents. Do not make any financial decisions. You should be in the presence of an adult for the remainder of the day. If you are experiencing any problems related to your procedure, you should contact the Interventional Radiology physician unless otherwise directed. documented in this encounter Progress Notes * Raimundo Ortega MD - 09/02/2024 7:52 AM EST Progress Note - Hepatology [facility] [address] Name: Santiago Amador Location: [facility] B648/B Date: 09/02/2024 Time: 7:52 AM SUBJECTIVE: Patient was seen and examined at the bedside. No acute event overnight. Patient did not sound to have any new complaint. He is asking for discharge today. Labs reviewed. This morning, his hgb was 6.9. one unit PRBC was ordered. HISTORY: Past Medical History: Past Medical History: Diagnosis Date Alcoholic cirrhosis (HCC) 12/19/2023 Alcoholism (HCC) Ascites due to alcoholic cirrhosis (HCC) 12/19/2023 COPD, mild (HCC) 12/19/2023 Current smoker Family history of colon cancer paternal grandfather Past Surgical History: Past Surgical History: Procedure Laterality Date COLONOSCOPY, DIAGNOSTIC (RECTUM) N/A 08/28/2024 COLONOSCOPY FLEXIBLE PROXIMAL DIAGNOSTIC performed by Nery Aguilar MD at ENDOSCOPY [facility] EGD, FLEXIBLE, DIAGNOSTIC N/A 08/28/2024 ESOPHAGOGASTRODUODENOSCOPY (EGD), FLEXIBLE, TRANSORAL, DIAGNOSTIC performed by Nery Aguilar MD at ENDOSCOPY [facility] IR VENOUS INTERVENTION 05/10/2024 REMOVAL OF TONSILS, UNDER AGE 14 Social History: Social History Tobacco Use Smoking status: Every Day Current packs/day: 0.50 Average packs/day: 1 pack/day for 34.1 years (32.5 ttl pk-yrs) Types: Cigarettes Start date: 1990 Smokeless tobacco: Never Vaping Use Vaping status: Never Used Substance Use Topics Alcohol use: Not Currently Comment: last drink 4 months ago Drug use: Not Currently Types: Marijuana Family History: Family History Problem Relation Name Age of Onset Stroke Mother Hypertension Mother Diabetes Mother No Known Problems Sister Manuela No Known Problems Sister Alba Colon cancer Grandfather (Paternal) Allergies: Penicillins ROS: Reviewed, negative except as above. PHYSICAL EXAMINATION: Most Recent Vital Signs: BP: 128 mmHg/57 mmHg (09/02/24236) Pulse: 74 (09/02/24236) Resp: 16 (09/02/24236) Temp: 36.5 C (09/02/24236) Temp Summary: Temp Min: 36.5 C (97.7 F) Max: 37.2 C (99 F) SpO2: 95 % (09/02/24236) O2 flow rate: 0 L/MIN (08/31/241623) Supplemental O2 Delivery: Room Air, None (09/02/24236) Vital Signs Last 24 Hours: Systolic BP: Most Recent Systolic BP Av.2 mmHg Min: 128 mmHg Max: 144 mmHg Temperature: Most Recent Temperature Av.9 C Min: 36.5 C Max: 37.22 C Pulse: Pulse Av.2 Min: 66 Max: 84 Respirations: Resp Av.8 Min: 16 Max: 18 SpO2: SpO2 Av % Min: 94 % Max: 100 % General: Patient is awake, alert, oriented x 3, and in no acute distress Head and face: normocephalic and atraumatic Eyes: No scleral icterus; normal lids Neck: Supple. Good ROM Heart: Not tachycardic Respiratory: not in respiratory distress. Abdomen: Soft, non-tender, Non-distended. Extremities: No cyanosis, or clubbing. No edema Skin: Warm, dry, intact. Neuro: Alert and oriented x 3. Speech appropriate, moves all extremities. LABS: MELD 3.0: 26 at 09/02/2024 6:35 AM MELD-Na: 26 at 09/02/2024 6:35 AM Calculated from: Serum Creatinine: 1.8 mg/dL at 09/02/2024 6:35 AM Serum Sodium: 125 mmol/L at 09/02/2024 6:35 AM Total Bilirubin: 0.7 mg/dL (Using min of 1 mg/dL) at 09/02/2024 6:35 AM Serum Albumin: 2.5 g/dL at 09/02/2024 6:35 AM INR(ratio): 1.4 at 09/02/2024 6:34 AM Age at listing (hypothetical): 53 years Sex: Male at 09/02/2024 6:35 AM IMAGES: Reviewed in [facility] ENDOSCOPIC Hx: EGD 08/24/2024 - Grade I and small (< 5 mm) esophageal varices with no bleeding and no stigmata of recent bleeding. - 3 cm hiatal hernia. - A large amount of food (residue) in the stomach. - Portal hypertensive gastropathy. - Blood in the duodenal bulb. 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 - Erythematous duodenopathy. Colon 08/24/2024 - The procedure was aborted due to poor bowel prep. - Preparation of the colon was poor. - Internal hemorrhoids (Grade I) found on perianal exam. - Stool in the entire examined colon. - No specimens collected. IMPRESSION: Santiago Amador is a(n) 53 year old male with past medical history notable for ETOH cirrhosis complicated by ascites, portal hypertension, GAVE, esophageal and duodenal varices sp IR directed gastroduodenal varices coil embolization on 05/10/2024, and hepatic encephalopathy presenting to [facility] and transferred to [facility] after being found to have hgb of 3.3 sp 4 units, to 6.4 and ascites, without overt signs of bleeding. Since then, his hemoglobin has stabilized. He underwent outpatient transplant evaluation and also seen in the clinic with no absolute contraindications noted and with remaining transplant work up including cardiology/ischemic cardiac testing,pulmonary evaluation, and colonoscopy. Despite the coil embolization directed at the gastroduodenal and esophageal varices 04/2024, he still has large duodenal varices. His lumbee MELD is 14, which would consider him a better candidate for TIPS for secondary prevention. Extensive conversation had with patient regarding TIPS being the more effective option though patient afraid of risk associated with TIPS and opted for duodenal embolization which was performed successfully 08/31. RECOMMENDATIONS/PLAN: Decompensated Liver Cirrhosis 2/2 alcohol use disorder Child's Wray B9 Meld 3.0 Score 26 Ascites/peripheral edema - [employer] CONSULT[employer] diuresis was hold due to Graciela and hyponatremia. Will restart it as an outpatient. - weekly paracentesis by IR as an outpatient. No signs of GIB at present. Monitor for GI Bleed given decreasing hgb. If patient is ready for discharge, check CBC as an outpatient No HE Daily MELD labs while admitted (CBC, CMP, INR) dvt ppx Cholestyramine for pruritus Transplant evaluation is undergoing. - Colonoscopy as an outpatient (order placed) - patient needs Cardiac cath I have discussed the case with my attending, Dr. Ortega. Frankie Gutierrez MD Gastroenterology Fellow, [facility] Attending Attestation: I have discussed the patient's management with the medical trainee and agree with the note. Please refer to the documented findings and plan of care. The patient's bedside service today consisted of an evaluation. I was present and confirmed the findings of the history and exam. * Sang Vincent DO - 09/01/2024 3:55 PM EST Interventional Radiology Progress Note [address] [address] Name: Santiago Amador Location: [facility] B648/B Date: 09/02/2024 Time: 12:56 AM HPI: Santiago Amador is a 53 year old male patient with a history of decompensated alcoholic cirrhosis, now s/p paracentesis and variceal embolization on 08/31. On exam, the patient states that he is feeling relatively well. He denies any weakness, nausea, vomiting, fevers, or chills. The patient is eager to complete his transplant evaluation. Due to the risks, the patient is in favor of holding-off on TIPS. The abdominal access closure device was removed at bedside and the site was dressed. OBJECTIVE: Most Recent Vital Signs: BP: 144 mmHg/62 mmHg (09/01/242234) Pulse: 84 (09/01/242234) Resp: 18 (09/01/242234) Temp: 36.89 C (09/01/242234) Temp Summary: Temp Min: 36.9 C (98.4 F) Max: 37.2 C (99 F) Invasive Temp Min: 36.6 C (97.9 F) Max: 36.6 C (97.9 F) SpO2: 97 % (09/01/242234) O2 flow rate: 0 L/MIN (08/31/241623) Supplemental O2 Delivery: Room Air, None (09/01/242234) LABS: MELD 3.0: 25 at 09/01/2024 6:22 AM Calculated from: Serum Creatinine: 1.6 mg/dL at 09/01/2024 6:22 AM Serum Sodium: 124 mmol/L (Using min of 125 mmol/L) at 09/01/2024 6:22 AM Total Bilirubin: 0.9 mg/dL (Using min of 1 mg/dL) at 09/01/2024 6:22 AM Serum Albumin: 2.6 g/dL at 09/01/2024 6:22 AM INR(ratio): 1.4 at 09/01/2024 6:22 AM Age at listing (hypothetical): 53 years Sex: Male at 09/01/2024 6:22 AM IMAGING REVIEW: CT LIVER dated 08/30/24 IMPRESSION 1. 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 No new varices. 2. Patent portal vein. 3. Similar large volume ascites. 4. Cirrhosis without suspicious hepatic lesion. PE: Constitutional: awake, alert, NAD HEENT: normocephalic, atraumatic, mucus membranes dry CV: regular rate and rhythm Chest: on room air, chest expansion is symmetric, respirations are non-labored GI: abdomen is soft, non-distended Skin: warm, dry, no hematoma at access site. ASSESSMENT/PLAN: Santiago Amador is a 53 year old male patient s/p variceal embolization and paracentesis on 08/31. Closure device removed at bedside, no restrictions. Continue to monitor H&H. Transfuse as needed. Continue current transplant work-up and medical optimization. Will call patient in 1 week for follow-up. Patient can be set-up for outpatient paracentesis as needed. Cosigned by Jyoti Santana MD at 09/02/2024 6:39 AM EST Associated attestation - Jyoti Santana MD - 09/02/2024 6:39 AM EST I saw and evaluated the patient today. I have reviewed the resident/fellow physician note and agree. Santiago was seen bedside, he is feeling well and hopeful he can be discharged soon. We explained the angiogram findings of recanalized duodenal/gastric varices and that we were able to partially embolize them. I cautioned this will temporize his bleeding, but not prevent future bleeding. To do that, he needs a TIPS or transplant. He again voiced that he does not want a TIPS due tothe associated risks. No further IR interventions planned during this hospitalization. I will follow up with him as an outpatient. Recommend CBC, CMP, PT/INR in 1 week. We will add him to IR schedule for weekly outpatient paracenteses. * Lolita Coyne MD - 09/01/2024 1:40 PM EST Images from the original note were not included. [facility] B648/B INTERVAL HISTORY: Overnight, no acute events. This morning, patient was seen and examined at bedside. Feels overall tired Denies bleeding Objective Physical Exam Most Recent Vital Signs: BP: 136 mmHg/71 mmHg (09/01/24 1007) Pulse: 66 (09/01/24 1007) Resp: 16 (09/01/24 1007) Temp: 36.89 C (09/01/24 1007) Temp Summary: Temp Min: 35.6 C (96.1 F) Max: 37.1 C (98.8 F) Invasive Temp Min: 36.6 C (97.9 F) Max: 36.6 C (97.9 F) SpO2: 100 % (09/01/24 1007) O2 flow rate: 0 L/MIN (08/31/24 1624) Supplemental O2 Delivery: Room Air, None (09/01/24 1007) General: Patient in no apparent distress HEENT: normocephalic, atraumatic Heart: regular rate and rhythm; S1 and S2 present; no murmurs, rubs or gallops. Pulmonary: Lungs clear to auscultation bilaterally; no wheezes, rhonchi or crackles. Abdomen: Soft, non-tender, distended. Normal bowel sounds and no rebound or guarding. Extremities: No pitting edema present at lower extremity bilaterally Skin: Graford, warm, no wounds or lesions present. Neuro: AAOx3. No gross motor or sensory deficits. Psych: Appropriate mood and affect Peripheral Line Left;Upper 20 Gauge (Active) Number of days: 11 Peripheral Line Left Antecubital 20 Gauge (Active) Number of days: 3 STUDIES: Encounter Orders Labs and other studies reviewed with pertinent findings noted below: Labs: Recent Results (from the past 6 hours) GLUCOSE METER, POINT OF CARE Collection Time: 09/01/24 9:27 AM Result Value Ref Range Glucose - POCT 155 (H) 70 - 120 mg/dL GLUCOSE METER, POINT OF CARE Collection Time: 09/01/24 10:57 AM Result Value Ref Range Glucose - POCT 137 (H) 70 - 120 mg/dL GLUCOSE METER, POINT OF CARE Collection Time: 09/01/24 12:08 PM Result Value Ref Range Glucose - POCT 130 (H) 70 - 120 mg/dL Imaging: CT LIVER 4-PHASE W WO IV CONTRAST - WO ORAL CONT Final Result EXAM CT LIVER 4-PHASE W WO IV CONTRAST - WO ORAL CONT - 08/30/2024 HISTORY to evaluate his varices and portal vein COMPARISON CT 05/10/2024 TECHNIQUE Axial images of the abdomen were obtained per 4-phase liver protocol. Sagittal and coronal reformats were submitted. FINDINGS Lower chest: Similar small left pleural effusion with lower lobe atelectasis. Lines and devices: None. Liver: Cirrhosis. No suspicious lesions. Gallbladder: Cholelithiasis. Bile ducts: Unremarkable. Pancreas: Unremarkable. Spleen: Unremarkable. Adrenals: Unremarkable. Kidneys/Ureters (visualized): Bilateral renal cysts including right lower pole cyst with septations and calcifications. Peritoneum/Retroperitoneum: Similar large volume ascites. Bowel: Normal in caliber without evidence of obstruction. Lymph nodes: No lymphadenopathy. 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 Patent portal vein. Embolization coils in the upper abdomen and right liver. Similar patent right paraumbilical shunt and similar paraesophageal varices. No new varices. Abdominal Wall/Soft Tissues: Unremarkable. Bones: Degenerative changes of the spine. IMPRESSION IMPRESSION 1. 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 No new varices. 2. Patent portal vein. 3. Similar large volume ascites. 4. Cirrhosis without suspicious hepatic lesion. XR CHEST 1 VIEW Final Result EXAM: XR CHEST 1 VIEW - 08/22/2024 8:58 am HISTORY: To r/o cardiopulmonary source of infection TECHNIQUE: Single portable AP view of the chest COMPARISON: None FINDINGS: Catheters/tubes/devices/foreign bodies: None. Low lung volumes with patchy bibasilar atelectasis. No consolidation or effusion. No evidence of pneumothorax. Cardiomediastinal silhouette is within normal limits. Osseous structures are unremarkable. IMPRESSION IMPRESSION: Patchy bibasilar opacities are felt to most likely represent atelectasis given the low lung volumes. If clinical concern persists, recommend PA and lateral chest x-ray which will better characterize the posterior lung bases, otherwise partially obscured using portable technique. IR VENOUS TIPS (Results Pending) IR VENOUS INTERVENTION (Results Pending) IR PARACENTESIS (Results Pending) Assessment and Plan IMPRESSION : Principal Problem: Anemia Active Problems: Alcoholic cirrhosis (HCC) Ascites due to alcoholic cirrhosis (HCC) COPD, mild (HCC) Kidney disease, chronic, stage IV (GFR 15-29 ml/min) (HCC) GRACIELA (acute kidney injury) (HCC) GAVE (gastric antral vascular ectasia) Severe protein-energy malnutrition (HCC) Duodenal varices Other cirrhosis of liver (HCC) Secondary esophageal varices with bleeding (HCC) Alcohol dependence, in remission (HCC) Acute hyperkalemia Hyponatremia Iron deficiency anemia due to chronic blood loss Portal hypertension (HCC) Preoperative cardiovascular examination Resolved Problems: * No resolved hospital problems. * I have examined the patient and consistent with the dietitian's findings found malnutrition presentof Severe (08/28/24 1300) degree. This is consistent with such due to Fat loss;Muscle loss (08/28/24 1300). I have also reviewed and agree with the dietitian's plan of care which include Oral nutritional supplement ordered/adjusted (08/28/24 1300). DIFFERENTIAL AND PLAN: Santiago Amador is a 53 year old male with PMHx significant for alcoholic cirrhosis with ascites andesophageal varices and past metabolic encephalopathy w/ weekly paracentesis, history of gastric antral vascular ectasia, COPD, tobacco use disorder who is admitted for symptomatic anemia. Symptomatic anemia 2/2 possible GI bleed? Decompensated EtoH Liver Cirrhosis 2/2 ascites, EV/IGV and duodenal varices sp embolization, PHG, gastric antral vascular ectasia, hepatic encephalopathy Non oliguric GRACIELA on CKD, pre-renal 2/2 blood loss vs hepatorenal Hyperkalemia Hypervolemic Hyponatremia - Hepatology consulted; appreciated recs IR were able to embolize some of his varices on 09/01/24 Endoscopy revealed large duodenal varices with stigmata of bleeding - s/p variceal embolization 2with paracentesis, patient declining TIPS given risks of procedure IR probably isn't going to do anything else this admission if he is stable. IR plans to call him brian week to see how he is doing. If he needs outpatient paracentesis needs an order placed at discharge to set him up with IR - Infectious workup sent: UA and urine culture negative and blood culture negative so far - Echo with bubble study obtained and reviewed - S/P paracentesis done on 08/22/2024 and 08/26/2024, labs negative for SBP - Continue [employer] lactulose and cholestyramine. Continue rifaximin 550 mg twice daily - Hold diuretics at this time due to hyponatremia - Continue [employer] folic acid Impression: - Grade I and small (< 5 mm) esophageal varices with no bleeding and no stigmata of recent bleeding. - 3 cm hiatal hernia. - A large amount of food (residue) in the stomach. - Portal hypertensive gastropathy. - Blood in the duodenal bulb. 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 - Erythematous duodenopathy. Suspect that his duodenal varices are bleeding or oozing on and off. fluid restriction< 1200 mL - Nephrology consulted and recommendations appreciated - Cardiology on board. - On Telemonitor - Daily meld labs-CBC, CMP, INR Acute hyperkalemia Insulin , dextrose , lokelma Repeat potassium Chronic Problems: ? Tobacco use: Nicotine patch ?Neuropathic pain: Continue [employer] gabapentin ? 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 * Salma Wisdom MD - 09/01/2024 10:51 AM EST PROGRESS NOTE - Gastroenterology Service [address] [address] Name: Santiago Amador Date: 09/01/2024 Time: 7:58 AM SUBJECTIVE: Abdomen feels much better since paracentesis. Doing well overall. No acute complaints, just wants aregular diet if possible. ROS: Negative unless otherwise stated above. OBJECTIVE: Vital Signs Last 24 Hours: Systolic BP: Most Recent Systolic BP Av.9 mmHg Min: 93 mmHg Max: 136 mmHg Temperature: Most Recent Temperature Av.5 C Min: 35.61 C Max: 37.11 C Pulse: Pulse Av Min: 59 Max: 77 Respirations: Resp Av.8 Min: 9 Max: 16 SpO2: SpO2 Av.5 % Min: 94 % Max: 100 % Constitutional: NAD. A&Ox3. CV: RRR. No murmurs. Normal S1/S2. Chest: CTA bilat. No wheezing or rhonchi. GI: Soft, non tender, non-distended Extremities: No edema. Neurology: Moves all extremities. Psych: appropriate for situation Last Bowel Movement: 08/28/24 (08/28/242008) Stool Description: Loose (08/28/242008) LABS: Reviewed in Epic. MELD 3.0: 25 at 09/01/2024 6:22 AM MELD-Na: 25 at 09/01/2024 6:22 AM Calculated from: Serum Creatinine: 1.6 mg/dL at 09/01/2024 6:22 AM Serum Sodium: 124 mmol/L (Using min of 125 mmol/L) at 09/01/2024 6:22 AM Total Bilirubin: 0.9 mg/dL (Using min of 1 mg/dL) at 09/01/2024 6:22 AM Serum Albumin: 2.6 g/dL at 09/01/2024 6:22 AM INR(ratio): 1.4 at 09/01/2024 6:22 AM Age at listing (hypothetical): 53 years Sex: Male at 09/01/2024 6:22 AM Standard MELD: Chemistry Panel: Lab results within last 7 days (see chart for full results) Units 09/01/24 0622 08/31/24 0748 08/30/24 0647 SODIUM mmol/L 124* 125* 128* POTASSIUM mmol/L 6.0* 6.0* 5.6* CHLORIDE mmol/L 102 100 103 CO2 mmol/L 16* 17* 18* BUN mg/dL 37* 38* 38* CREATININE mg/dL 1.6* 1.6* 1.6* Complete Blood Count: Lab results within last 7 days (see chart for full results) Units 09/01/24 0622 08/31/24 0748 08/30/24 0647 WBC K/uL 7.73 10.16 10.33 HGB g/dL 7.1* 7.2* 7.9* PLT K/uL 146 166 152 Coagulation Studies: Lab results within last 7 days (see chart for full results) Units 09/01/24 0622 08/31/24 0748 08/30/24 0647 INR 1.4* 1.4* 1.3* Liver Function Panel: Lab results within last 7 days (see chart for full results) Units 09/01/24 0622 08/31/24 0748 08/30/24 0647 Albumin g/dL 2.6* 2.4* 2.4* Protein g/dL 5.2* 5.7* 5.5* Bilirubin, Total mg/dL 0.9 1.0 0.9 AST U/L 17 28 21 ALT U/L 7* 12 11 Alkaline Phosphatase U/L 51 70 60 IMAGING: Reviewed in Epic. No imaging results in the last 24 hours ASSESSMENT: Santiago Amador is a(n) 53 year old male with past medical history notable for ETOH cirrhosis complicated by ascites, portal hypertension, GAVE, esophageal and duodenal varices sp IR directed gastroduodenal varices coil embolization on 05/10/2024, and hepatic encephalopathy presenting [facility] and transferred to [facility] after being found to have hgb of 3.3 sp 4 units, to 6.4 and ascites, without overt signs of bleeding. Since then, his hemoglobin has stabilized. He underwent outpatient transplant evaluation and also seen in the clinic with no absolute contraindications noted and with remaining transplant work up including cardiology/ischemic cardiac testing,pulmonary evaluation, and colonoscopy. Despite the coil embolization directed at the gastroduodenal and esophageal varices 04/2024, he still has large duodenal varices. His lumbee MELD is 14, which would consider him a better candidate for TIPS for secondary prevention. Extensive conversation had with patient regarding TIPS being the more effective option though patient afraid of risk associated with TIPS and opted for duodenal embolization which was performed successfully 08/31. RECOMMENDATIONS: Decompensated EtoH Liver Cirrhosis 2/2 ascites, EV/IGV and duodenal varices sp embolization, PHG, GAVE, HE Electrolyte derangements Stage 1 GRACIELA on CKD (increasing Cr), resolved Child's Wray 10C Meld 3.0 Score 30, now 25 AUD in remission, last drink 01/2024 Severe malnutrition Low to moderate frailty Endoscopy revealed large duodenal varices with stigmata of bleeding - s/p variceal embolization 08/31with paracentesis, patient declining TIPS given risks of procedure Ascites/peripheral edema - Hold diuretics at this time due to hyponatremia and his Cr function has significantly improved, can re-discuss re-initiation of [employer] diuretics tomorrow vs outpatient in clinic - would assure patient has weekly paracentesis appointments with IR post discharge Cholestyramine for pruritus History of HE - titrate lactulose to goal 2-3 loose stools per day - rifaximin 550 mg BID Daily MELD labs while admitted (CBC, CMP, INR) DVT ppx I discussed the case with my attending, Dr. Garnica. Cosigned by Ellis Garnica MD at 09/01/2024 4:22 PM EST Associated attestation - Ellis Garnica MD - 09/01/2024 4:22 PM EST I saw and evaluated the patient today. I have reviewed the resident/fellow physician note and agree. Ellis Garnica MD * Lolita Coyne MD - 08/31/2024 1:39 PM EST Images from the original note were not included. [facility] B648/B INTERVAL HISTORY: Overnight, no acute events. This morning, patient was seen and examined at bedside. Feels overall tired Denies bleeding Objective Physical Exam Most Recent Vital Signs: BP: 136 mmHg/71 mmHg (09/01/24 1007) Pulse: 66 (09/01/24 1007) Resp: 16 (09/01/24 1007) Temp: 36.89 C (09/01/24 1007) Temp Summary: Temp Min: 35.6 C (96.1 F) Max: 37.1 C (98.8 F) Invasive Temp Min: 36.6 C (97.9 F) Max: 36.6 C (97.9 F) SpO2: 100 % (09/01/24 1007) O2 flow rate: 0 L/MIN (08/31/24 1624) Supplemental O2 Delivery: Room Air, None (09/01/24 1007) General: Patient in no apparent distress HEENT: normocephalic, atraumatic Heart: regular rate and rhythm; S1 and S2 present; no murmurs, rubs or gallops. Pulmonary: Lungs clear to auscultation bilaterally; no wheezes, rhonchi or crackles. Abdomen: Soft, non-tender, distended. Normal bowel sounds and no rebound or guarding. Extremities: No pitting edema present at lower extremity bilaterally Skin: [place], warm, no wounds or lesions present. Neuro: AAOx3. No gross motor or sensory deficits. Psych: Appropriate mood and affect Peripheral Line Left;Upper 20 Gauge (Active) Number of days: 11 Peripheral Line Left Antecubital 20 Gauge (Active) Number of days: 3 STUDIES: Encounter Orders Labs and other studies reviewed with pertinent findings noted below: Labs: Recent Results (from the past 6 hours) GLUCOSE METER, POINT OF CARE Collection Time: 09/01/24 9:27 AM Result Value Ref Range Glucose - POCT 155 (H) 70 - 120 mg/dL GLUCOSE METER, POINT OF CARE Collection Time: 09/01/24 10:57 AM Result Value Ref Range Glucose - POCT 137 (H) 70 - 120 mg/dL GLUCOSE METER, POINT OF CARE Collection Time: 09/01/24 12:08 PM Result Value Ref Range Glucose - POCT 130 (H) 70 - 120 mg/dL Imaging: CT LIVER 4-PHASE W WO IV CONTRAST - WO ORAL CONT Final Result EXAM CT LIVER 4-PHASE W WO IV CONTRAST - WO ORAL CONT - 08/30/2024 HISTORY to evaluate his varices and portal vein COMPARISON CT 05/10/2024 TECHNIQUE Axial images of the abdomen were obtained per 4-phase liver protocol. Sagittal and coronal reformats were submitted. FINDINGS Lower chest: Similar small left pleural effusion with lower lobe atelectasis. Lines and devices: None. Liver: Cirrhosis. No suspicious lesions. Gallbladder: Cholelithiasis. Bile ducts: Unremarkable. Pancreas: Unremarkable. Spleen: Unremarkable. Adrenals: Unremarkable. Kidneys/Ureters (visualized): Bilateral renal cysts including right lower pole cyst with septations and calcifications. Peritoneum/Retroperitoneum: Similar large volume ascites. Bowel: Normal in caliber without evidence of obstruction. Lymph nodes: No lymphadenopathy. 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 Patent portal vein. Embolization coils in the upper abdomen and right liver. Similar patent right paraumbilical shunt and similar paraesophageal varices. No new varices. Abdominal Wall/Soft Tissues: Unremarkable. Bones: Degenerative changes of the spine. IMPRESSION IMPRESSION 1. 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 No new varices. 2. Patent portal vein. 3. Similar large volume ascites. 4. Cirrhosis without suspicious hepatic lesion. XR CHEST 1 VIEW Final Result EXAM: XR CHEST 1 VIEW - 08/22/2024 8:58 am HISTORY: To r/o cardiopulmonary source of infection TECHNIQUE: Single portable AP view of the chest COMPARISON: None FINDINGS: Catheters/tubes/devices/foreign bodies: None. Low lung volumes with patchy bibasilar atelectasis. No consolidation or effusion. No evidence of pneumothorax. Cardiomediastinal silhouette is within normal limits. Osseous structures are unremarkable. IMPRESSION IMPRESSION: Patchy bibasilar opacities are felt to most likely represent atelectasis given the low lung volumes. If clinical concern persists, recommend PA and lateral chest x-ray which will better characterize the posterior lung bases, otherwise partially obscured using portable technique. IR VENOUS TIPS (Results Pending) IR VENOUS INTERVENTION (Results Pending) IR PARACENTESIS (Results Pending) Assessment and Plan IMPRESSION : Principal Problem: Anemia Active Problems: Alcoholic cirrhosis (HCC) Ascites due to alcoholic cirrhosis (HCC) COPD, mild (HCC) Kidney disease, chronic, stage IV (GFR 15-29 ml/min) (HCC) GRACIELA (acute kidney injury) (HCC) GAVE (gastric antral vascular ectasia) Severe protein-energy malnutrition (HCC) Duodenal varices Other cirrhosis of liver (HCC) Secondary esophageal varices with bleeding (HCC) Alcohol dependence, in remission (HCC) Acute hyperkalemia Hyponatremia Iron deficiency anemia due to chronic blood loss Portal hypertension (HCC) Preoperative cardiovascular examination Resolved Problems: * No resolved hospital problems. * I have examined the patient and consistent with the dietitian's findings found malnutrition presentof Severe (08/28/24 1300) degree. This is consistent with such due to Fat loss;Muscle loss (08/28/24 1300). I have also reviewed and agree with the dietitian's plan of care which include Oral nutritional supplement ordered/adjusted (08/28/24 1300). DIFFERENTIAL AND PLAN: Santiago Amador is a 53 year old male with PMHx significant for alcoholic cirrhosis with ascites andesophageal varices and past metabolic encephalopathy w/ weekly paracentesis, history of gastric antral vascular ectasia, COPD, tobacco use disorder who is admitted for symptomatic anemia. Symptomatic anemia 2/2 possible GI bleed? Decompensated EtoH Liver Cirrhosis 2/2 ascites, EV/IGV and duodenal varices sp embolization, PHG, gastric antral vascular ectasia, hepatic encephalopathy Non oliguric GRACIELA on CKD, pre-renal 2/2 blood loss vs hepatorenal Hyperkalemia Hypervolemic Hyponatremia Patient presents from outside hospital for symptomatic anemia. Initial hemoglobin 3.[facility] CT abdomen pelvis done at outside hospital with no concerns from that imaging besides ascites. Patient was evaluated in April for possible tips procedure but was deemed not a great medical candidate. Ongoing evaluation for liver transplant. - Hepatology consulted; appreciated recs Right heart cath done on 08/29/24 , hepatology recommends TIPSS for duodenal variceal bleeding TIPS by IR requested - Infectious workup sent: UA and urine culture negative and blood culture negative so far - Echo with bubble study obtained and reviewed - S/P paracentesis done on 08/22/2024 and 08/26/2024, labs negative for SBP - Continue [employer] lactulose and cholestyramine. Continue rifaximin 550 mg twice daily - Hold diuretics at this time due to hyponatremia - Continue [employer] folic acid Impression: - Grade I and small (< 5 mm) esophageal varices with no bleeding and no stigmata of recent bleeding. - 3 cm hiatal hernia. - A large amount of food (residue) in the stomach. - Portal hypertensive gastropathy. - Blood in the duodenal bulb. 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 - Erythematous duodenopathy. Suspect that his duodenal varices are bleeding or oozing on and off. fluid restriction< 1200 mL - Nephrology consulted and recommendations appreciated - Cardiology on board. - On Telemonitor - Daily meld labs-CBC, CMP, INR Chronic Problems: ? Tobacco use: Nicotine patch ?Neuropathic pain: Continue JEW[employer]SULT[employer] gabapentin ? 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 * Salma Wisdom MD - 08/31/2024 10:45 AM EST PROGRESS NOTE - Gastroenterology Service [address] [place] [address] Name: Santiago Amador Date: 08/31/2024 Time: 7:58 AM SUBJECTIVE: Patient without acute complaints, did not sleep well last night. Has had some increased bowel movements though denies any signs symptoms of bleeding, no dark stools or isha blood. Reports some abdominal discomfort and increased distention. Per patient IR plans to perform embolization today with paracentesis. ROS: Negative unless otherwise stated above. OBJECTIVE: Vital Signs Last 24 Hours: Systolic BP: Most Recent Systolic BP Av.2 mmHg Min: 114 mmHg Max: 134 mmHg Temperature: Most Recent Temperature Av.6 C Min: 36.22 C Max: 37.28 C Pulse: Pulse Av.5 Min: 71 Max: 88 Respirations: Resp Av.3 Min: 16 Max: 18 SpO2: SpO2 Av.8 % Min: 95 % Max: 100 % Constitutional: NAD. A&Ox3. CV: RRR. No murmurs. Normal S1/S2. Chest: CTA bilat. No wheezing or rhonchi. GI: Soft, non tender, distended Extremities: No edema. Neurology: Moves all extremities. Last Bowel Movement: 08/28/24 (08/28/242008) Stool Description: Loose (08/28/242008) LABS: Reviewed in Epic. MELD 3.0: 25 at 08/31/2024 7:48 AM MELD-Na: 25 at 08/31/2024 7:48 AM Calculated from: Serum Creatinine: 1.6 mg/dL at 08/31/2024 7:48 AM Serum Sodium: 125 mmol/L at 08/31/2024 7:48 AM Total Bilirubin: 1 mg/dL at 08/31/2024 7:48 AM Serum Albumin: 2.4 g/dL at 08/31/2024 7:48 AM INR(ratio): 1.4 at 08/31/2024 7:48 AM Age at listing (hypothetical): 53 years Sex: Male at 08/31/2024 7:48 AM Standard MELD: Chemistry Panel: Lab results within last 7 days (see chart for full results) Units 08/31/24 0748 08/30/24 0647 08/29/24 1456 08/29/24 0633 SODIUM mmol/L 125* 128* -- 128* POTASSIUM mmol/L 6.0* 5.6* -- 4.8 POTASSIUM - POCT mmol/L -- -- 5.2* -- CHLORIDE mmol/L 100 103 -- 102 CO2 mmol/L 17* 18* -- 17* BUN mg/dL 38* 38* -- 38* CREATININE mg/dL 1.6* 1.6* -- 1.4* Complete Blood Count: Lab results within last 7 days (see chart for full results) Units 08/31/24 0748 08/30/24 0647 08/29/24 0633 WBC K/uL 10.16 10.33 10.04 HGB g/dL 7.2* 7.9* 8.8* PLT K/uL 166 152 171 Coagulation Studies: Lab results within last 7 days (see chart for full results) Units 08/31/24 0748 08/30/24 0647 08/29/24 0633 INR 1.4* 1.3* 1.3* Liver Function Panel: Lab results within last 7 days (see chart for full results) Units 08/31/24 0748 08/30/24 0647 08/29/24 0633 Albumin g/dL 2.4* 2.4* 2.5* Protein g/dL 5.7* 5.5* 5.6* Bilirubin, Total mg/dL 1.0 0.9 0.9 AST U/L 28 21 19 ALT U/L 12 11 12 Alkaline Phosphatase U/L 70 60 58 IMAGING: Reviewed in Epic. No imaging results in the last 24 hours ASSESSMENT: Santiago Amador is a(n) 53 year old male with past medical history notable for ETOH cirrhosis complicated by ascites, portal hypertension, GAVE, esophageal and duodenal varices sp IR directed gastroduodenal varices coil embolization on 05/10/2024, and [facility] after being found to have hgb of 3.3 sp 4 units, to 6.4 and ascites, without overt signs of bleeding. Since then, his hemoglobin has stabilized. He underwent outpatient transplant evaluation and also seen in the clinic with no absolute contraindications noted and with remaining transplant work up including cardiology/ischemic cardiac testing,pulmonary evaluation, and colonoscopy. Despite the coil embolization directed at the gastroduodenal and esophageal varices 04/2024, he still has large duodenal varices, which do not have IR targets for further embolization. His lumbee MELD is 14 today, which would consider him a better candidate for TIPSS for secondary prevention. RECOMMENDATIONS: Decompensated EtoH Liver Cirrhosis 2/2 ascites, EV/IGV and duodenal varices sp embolization, PHG, GAVE, HE Electrolyte derangements Stage 1 GRACIELA on CKD (increasing Cr), resolved Child's Wray 10C Meld 3.0 Score 30, now 27 AUD in remission, last drink 01/2024 Severe malnutrition Low to moderate frailty Endoscopy revealed large duodenal varices with stigmata of bleeding - discussed with IR for TIPSS vs embolization, and patient ultimately decided for repeat embolization, plan for today 2 Ascites/peripheral edema - Hold diuretics at this time due to hyponatremia and his Cr function has significantly improved - paracentesis today planned 2/1 Cholestyramine for pruritus History of HE - titrate lactulose to goal 2-3 loose stools per day - rifaximin 550 mg BID Daily MELD labs while admitted (CBC, CMP, INR) DVT ppx I discussed the case with my attending, Dr. Garnica. Cosigned by Ellis Garnica MD at 08/31/2024 1:17 PM EST Associated attestation - Ellis Garnica MD - 08/31/2024 1:17 PM EST I saw and evaluated the patient today. I have reviewed the resident/fellow physician note and agree. Ellis Garnica MD * Radha Gan DO - 08/30/2024 1:04 PM EST PROGRESS NOTE - Gastroenterology Service [facility] [address] Name: Santiago Amador Date: 08/30/2024 Time: 7:58 AM SUBJECTIVE: Right heart catheterization results reviewed and discussed with patient that we would consider tipsmanagement given his recurrent bleeding despite prior embolization of his esophageal and duodenal varices. Patient really would like to go home as it is [birth year] on [birth year]. He discussed with interventional radiology that he would prefer to try another embolization rather than TIPSS procedure given the risk of . ROS: Negative unless otherwise stated above. OBJECTIVE: Vital Signs Last 24 Hours: Systolic BP: Most Recent Systolic BP Av.6 mmHg Min: 95 mmHg Max: 132 mmHg Temperature: Most Recent Temperature Av.6 C Min: 36 C Max: 37.22 C Pulse: Pulse Av.2 Min: 69 Max: 82 Respirations: Resp Av.8 Min: 16 Max: 18 SpO2: SpO2 Av % Min: 93 % Max: 100 % Constitutional: NAD. A&Ox3. CV: RRR. No murmurs. Normal S1/S2. Chest: CTA bilat. No wheezing or rhonchi. GI: Soft, non tender, distended Extremities: No edema. Neurology: Moves all extremities. Last Bowel Movement: 08/28/24 (08/28/242008) Stool Description: Loose (08/28/242008) LABS: Reviewed in Epic. MELD 3.0: 22 at 08/30/2024 6:47 AM MELD-Na: 22 at 08/30/2024 6:47 AM Calculated from: Serum Creatinine: 1.6 mg/dL at 08/30/2024 6:47 AM Serum Sodium: 128 mmol/L at 08/30/2024 6:47 AM Total Bilirubin: 0.9 mg/dL (Using min of 1 mg/dL) at 08/30/2024 6:47 AM Serum Albumin: 2.4 g/dL at 08/30/2024 6:47 AM INR(ratio): 1.3 at 08/30/2024 6:47 AM Age at listing (hypothetical): 53 years Sex: Male at 08/30/2024 6:47 AM Standard MELD: Chemistry Panel: Lab results within last 7 days (see chart for full results) Units 08/30/24 0647 08/29/24 1456 08/29/24 0633 08/28/24 0922 SODIUM mmol/L 128* -- 128* 124* POTASSIUM mmol/L 5.6* -- 4.8 5.1 POTASSIUM - POCT mmol/L -- 5.2* -- -- CHLORIDE mmol/L 103 -- 102 101 CO2 mmol/L 18* -- 17* 15* BUN mg/dL 38* -- 38* 37* CREATININE mg/dL 1.6* -- 1.4* 1.4* Complete Blood Count: Lab results within last 7 days (see chart for full results) Units 08/30/24 0647 08/29/24 0633 08/28/24 0922 WBC K/uL 10.33 10.04 8.62 HGB g/dL 7.9* 8.8* 8.7* PLT K/uL 152 171 153 Coagulation Studies: Lab results within last 7 days (see chart for full results) Units 08/30/24 0647 08/29/24 0633 08/28/24 0922 INR 1.3* 1.3* 1.2 Liver Function Panel: Lab results within last 7 days (see chart for full results) Units 08/30/24 0647 08/29/24 0633 08/28/24 0922 Albumin g/dL 2.4* 2.5* 2.6* Protein g/dL 5.5* 5.6* 5.6* Bilirubin, Total mg/dL 0.9 0.9 1.1 AST U/L 21 19 21 ALT U/L 11 12 10 Alkaline Phosphatase U/L 60 58 53 IMAGING: Reviewed in Epic. CT LIVER 4-PHASE W WO IV CONTRAST - WO ORAL CONT Result Date: 08/30/2024 IMPRESSION 1. 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 No new varices. 2. Patent portal vein. 3. Similar large volume ascites. 4. Cirrhosis without suspicious hepatic lesion. ASSESSMENT: Santiago Amador is a(n) 53 year old male with past medical history notable for ETOH cirrhosis complicated by ascites, portal hypertension, GAVE, esophageal and duodenal varices sp IR directed gastroduodenal varices coil embolization on 05/10/2024, and [facility] after being found to have hgb of 3.3 sp 4 units, to 6.4 and ascites, without overt signs of bleeding. Since then, his hemoglobin has stabilized. He underwent outpatient transplant evaluation and also seen in the clinic with no absolute contraindications noted and with remaining transplant work up including cardiology/ischemic cardiac testing,pulmonary evaluation, and colonoscopy. Despite the coil embolization directed at the gastroduodenal and esophageal varices 04/2024, he still has large duodenal varices, which do not have IR targets for further embolization. His lumbee MELD is 14 today, which would consider him a better candidate for TIPSS for secondary prevention. RECOMMENDATIONS: Decompensated EtoH Liver Cirrhosis 2/2 ascites, EV/IGV and duodenal varices sp embolization, PHG, GAVE, HE Electrolyte derangements Stage 1 GRACIELA on CKD (increasing Cr), resolved Child's Wray 10C Meld 3.0 Score 30, now 27 AUD in remission, last drink 01/2024 Severe malnutrition Low to moderate frailty Endoscopy revealed large duodenal varices with stigmata of bleeding - discussed with IR for TIPSS vs embolization, and patient ultimately decided for repeat embolization Ascites/peripheral edema - Hold diuretics at this time due to hyponatremia and his Cr function has significantly improved Cholestyramine for pruritus History of HE - titrate lactulose to goal 2-3 loose stools per day - rifaximin 550 mg BID Daily MELD labs while admitted (CBC, CMP, INR) DVT ppx I discussed the case with my attending, Dr. Munson. Cosigned by Matthew Munson MD at 08/30/2024 1:29 PM EST Associated attestation - Matthew Munson MD - 08/30/2024 1:29 PM EST I saw and evaluated the patient today. I have reviewed the resident/fellow physician note and agree. * Lolita Coyne MD - 08/30/2024 10:00 AM EST Images from the original note were not included. [facility] B648/B INTERVAL HISTORY: Overnight, no acute events. This morning, patient was seen and examined at bedside. Feels overall tired Denies bleeding Objective Physical Exam Most Recent Vital Signs: BP: 134 mmHg/75 mmHg (08/30/241523) Pulse: 73 (08/30/241523) Resp: 16 (08/30/241523) Temp: 36.5 C (08/30/241523) Temp Summary: Temp Min: 36 C (96.8 F) Max: 37.2 C (99 F) SpO2: 99 % (08/30/241523) O2 flow rate: 0 L/MIN (08/30/241523) Supplemental O2 Delivery: Room Air, None (08/30/241523) General: Patient in no apparent distress HEENT: normocephalic, atraumatic Heart: regular rate and rhythm; S1 and S2 present; no murmurs, rubs or gallops. Pulmonary: Lungs clear to auscultation bilaterally; no wheezes, rhonchi or crackles. Abdomen: Soft, non-tender, distended. Normal bowel sounds and no rebound or guarding. Extremities: No pitting edema present at lower extremity bilaterally Skin: Graford, warm, no wounds or lesions present. Neuro: AAOx3. No gross motor or sensory deficits. Psych: Appropriate mood and affect Peripheral Line Left;Upper 20 Gauge (Active) Number of days: 9 Peripheral Line Left Antecubital 20 Gauge (Active) Number of days: 1 STUDIES: Encounter Orders Labs and other studies reviewed with pertinent findings noted below: Labs: Recent Results (from the past 6 hours) TYPE AND SCREEN Collection Time: 08/30/24 11:10 AM Result Value Ref Range ABO A Rh Negative Red Blood Cell Antibody Screen Negative Specimen Expiration Date 09/02/2024 23:59 Imaging: CT LIVER 4-PHASE W WO IV CONTRAST - WO ORAL CONT Final Result EXAM CT LIVER 4-PHASE W WO IV CONTRAST - WO ORAL CONT - 08/30/2024 HISTORY to evaluate his varices and portal vein COMPARISON CT 05/10/2024 TECHNIQUE Axial images of the abdomen were obtained per 4-phase liver protocol. Sagittal and coronal reformats were submitted. FINDINGS Lower chest: Similar small left pleural effusion with lower lobe atelectasis. Lines and devices: None. Liver: Cirrhosis. No suspicious lesions. Gallbladder: Cholelithiasis. Bile ducts: Unremarkable. Pancreas: Unremarkable. Spleen: Unremarkable. Adrenals: Unremarkable. Kidneys/Ureters (visualized): Bilateral renal cysts including right lower pole cyst with septations and calcifications. Peritoneum/Retroperitoneum: Similar large volume ascites. Bowel: Normal in caliber without evidence of obstruction. Lymph nodes: No lymphadenopathy. 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 Patent portal vein. Embolization coils in the upper abdomen and right liver. Similar patent right paraumbilical shunt and similar paraesophageal varices. No new varices. Abdominal Wall/Soft Tissues: Unremarkable. Bones: Degenerative changes of the spine. IMPRESSION IMPRESSION 1. 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 No new varices. 2. Patent portal vein. 3. Similar large volume ascites. 4. Cirrhosis without suspicious hepatic lesion. XR CHEST 1 VIEW Final Result EXAM: XR CHEST 1 VIEW - 08/22/2024 8:58 am HISTORY: To r/o cardiopulmonary source of infection TECHNIQUE: Single portable AP view of the chest COMPARISON: None FINDINGS: Catheters/tubes/devices/foreign bodies: None. Low lung volumes with patchy bibasilar atelectasis. No consolidation or effusion. No evidence of pneumothorax. Cardiomediastinal silhouette is within normal limits. Osseous structures are unremarkable. IMPRESSION IMPRESSION: Patchy bibasilar opacities are felt to most likely represent atelectasis given the low lung volumes. If clinical concern persists, recommend PA and lateral chest x-ray which will better characterize the posterior lung bases, otherwise partially obscured using portable technique. IR VENOUS TIPS (Results Pending) IR VENOUS INTERVENTION (Results Pending) IR PARACENTESIS (Results Pending) Assessment and Plan IMPRESSION : Principal Problem: Anemia Active Problems: Alcoholic cirrhosis (HCC) Ascites due to alcoholic cirrhosis (HCC) COPD, mild (HCC) Kidney disease, chronic, stage IV (GFR 15-29 ml/min) (HCC) GRACIELA (acute kidney injury) (HCC) GAVE (gastric antral vascular ectasia) Severe protein-energy malnutrition (HCC) Duodenal varices Other cirrhosis of liver (HCC) Secondary esophageal varices with bleeding (HCC) Alcohol dependence, in remission (HCC) Acute hyperkalemia Hyponatremia Iron deficiency anemia due to chronic blood loss Portal hypertension (HCC) Preoperative cardiovascular examination Resolved Problems: * No resolved hospital problems. * I have examined the patient and consistent with the dietitian's findings found malnutrition presentof Severe (08/28/24 1300) degree. This is consistent with such due to Fat loss;Muscle loss (08/28/24 1300). I have also reviewed and agree with the dietitian's plan of care which include Oral nutritional supplement ordered/adjusted (08/28/24 1300). DIFFERENTIAL AND PLAN: Santiago Amador is a 53 year old male with PMHx significant for alcoholic cirrhosis with ascites andesophageal varices and past metabolic encephalopathy w/ weekly paracentesis, history of gastric antral vascular ectasia, COPD, tobacco use disorder who is admitted for symptomatic anemia. Symptomatic anemia 2/2 possible GI bleed? Decompensated EtoH Liver Cirrhosis 2/2 ascites, EV/IGV and duodenal varices sp embolization, PHG, gastric antral vascular ectasia, hepatic encephalopathy Non oliguric GRACIELA on CKD, pre-renal 2/2 blood loss vs hepatorenal Hyperkalemia Hypervolemic Hyponatremia Patient presents from outside hospital for symptomatic anemia. Initial hemoglobin 3.3 at [facility] CT abdomen pelvis done at outside hospital with no concerns from that imaging besides ascites. Patient was evaluated in April for possible tips procedure but was deemed not a great medical candidate. Ongoing evaluation for liver transplant. - Hepatology consulted; appreciated recs Right heart cath done on 08/29/24 , hepatology recommends TIPSS for duodenal variceal bleeding TIPS by IR requested - Infectious workup sent: UA and urine culture negative and blood culture negative so far - Echo with bubble study obtained and reviewed - S/P paracentesis done on 08/22/2024 and 08/26/2024, labs negative for SBP - Continue [employer] lactulose and cholestyramine. Continue rifaximin 550 mg twice daily - Hold diuretics at this time due to hyponatremia - Continue [employer] folic acid Impression: - Grade I and small (< 5 mm) esophageal varices with no bleeding and no stigmata of recent bleeding. - 3 cm hiatal hernia. - A large amount of food (residue) in the stomach. - Portal hypertensive gastropathy. - Blood in the duodenal bulb. 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 - Erythematous duodenopathy. Suspect that his duodenal varices are bleeding or oozing on and off. fluid restriction< 1200 mL - Nephrology consulted and recommendations appreciated - Cardiology on board. - On Telemonitor - Daily meld labs-CBC, CMP, INR Chronic Problems: ? Tobacco use: Nicotine patch ?Neuropathic pain: Continue [employer] gabapentin ? COPD: Continue J[employer] PHARMACOLOGIC VTE PROPHYLAXIS: hEParin CODE STATUS: Full Code EXPECTED DISCHARGE DATE: 09/02/2024 I spent a total of 60 minutes coordinating, documenting, and providing care for this patient excluding time spent in the performance of separately billed services or time spent by another provider/QHP. * Lolita Coyne MD - 08/29/2024 4:23 PM EST Images from the original note were not included. [facility] B648/B INTERVAL HISTORY: Overnight, no acute events. This morning, patient was seen and examined at bedside. Feels overall tired States had multiple Bms last night but none today morning Denies bleeding Objective Physical Exam Most Recent Vital Signs: BP: 124 mmHg/46 mmHg (08/29/24 1145) Pulse: 62 (08/29/24 1145) Resp: 15 (08/29/24 1145) Temp: 35.94 C (08/29/24 1145) Temp Summary: Temp Min: 35.7 C (96.3 F) Max: 36.3 C (97.3 F) SpO2: 98 % (08/29/24 1145) O2 flow rate: 0 L/MIN (08/28/24 1541) Supplemental O2 Delivery: Room Air, None (08/29/24 1145) General: Patient in no apparent distress HEENT: normocephalic, atraumatic Heart: regular rate and rhythm; S1 and S2 present; no murmurs, rubs or gallops. Pulmonary: Lungs clear to auscultation bilaterally; no wheezes, rhonchi or crackles. Abdomen: Soft, non-tender, distended. Normal bowel sounds and no rebound or guarding. Extremities: No pitting edema present at lower extremity bilaterally Skin: [place], warm, no wounds or lesions present. Neuro: AAOx3. No gross motor or sensory deficits. Psych: Appropriate mood and affect Peripheral Line Left;Upper 20 Gauge (Active) Number of days: 8 STUDIES: Encounter Orders Labs and other studies reviewed with pertinent findings noted below: Labs: Recent Results (from the past 6 hours) BLOOD GAS WITH CHEMISTRY, POINT OF CARE Collection Time: 08/29/24 2:56 PM Result Value Ref Range Draw Site Arterial Draw pH i-STAT 7.316 (L) 7.350 - 7.450 pCO2 i-STAT 31.8 (L) 35.0 - 45.0 mm Hg pO2 i-STAT 44 (LL) 75 - 100 mm Hg Base Excess i-STAT -9 (L) -2 - 2 mmol/L Bicarbonate i-STAT 16.2 (L) 23.0 - 31.0 mmol/L O2 Saturation i-STAT 76.0 (L) 94.0 - 98.0 % Glucose - POCT 95 70 - 120 mg/dL POTASSIUM - POCT 5.2 (H) 3.5 - 5.1 mmol/L SODIUM - POCT 130 (L) 135 - 146 mmol/L Calcium, ionized 1.26 1.13 - 1.32 mmol/L Hemoglobin i-STAT 8.5 (L) 14.0 - 16.8 g/dL Hematocrit i-STAT 25 (L) 40 - 48 % Imaging: XR CHEST 1 VIEW Final Result EXAM: XR CHEST 1 VIEW - 08/22/2024 8:58 am HISTORY: To r/o cardiopulmonary source of infection TECHNIQUE: Single portable AP view of the chest COMPARISON: None FINDINGS: Catheters/tubes/devices/foreign bodies: None. Low lung volumes with patchy bibasilar atelectasis. No consolidation or effusion. No evidence of pneumothorax. Cardiomediastinal silhouette is within normal limits. Osseous structures are unremarkable. IMPRESSION IMPRESSION: Patchy bibasilar opacities are felt to most likely represent atelectasis given the low lung volumes. If clinical concern persists, recommend PA and lateral chest x-ray which will better characterize the posterior lung bases, otherwise partially obscured using portable technique. IR VENOUS TIPS (Results Pending) Assessment and Plan IMPRESSION : Principal Problem: Symptomatic anemia Active Problems: Alcoholic cirrhosis (HCC) Ascites due to alcoholic cirrhosis (HCC) COPD, mild (HCC) Kidney disease, chronic, stage IV (GFR 15-29 ml/min) (HCC) GRACIELA (acute kidney injury) (HCC) GAVE (gastric antral vascular ectasia) Severe protein-energy malnutrition (HCC) Duodenal varices Other cirrhosis of liver (HCC) Secondary esophageal varices with bleeding (HCC) Alcohol dependence, in remission (HCC) Acute hyperkalemia Hyponatremia Iron deficiency anemia due to chronic blood loss Portal hypertension (HCC) Preoperative cardiovascular examination Resolved Problems: * No resolved hospital problems. * I have examined the patient and consistent with the dietitian's findings found malnutrition presentof Severe (08/28/24 1300) degree. This is consistent with such due to Fat loss;Muscle loss (08/28/24 1300). I have also reviewed and agree with the dietitian's plan of care which include Oral nutritional supplement ordered/adjusted (08/28/24 1300). DIFFERENTIAL AND PLAN: Santiago Amador is a 53 year old male with PMHx significant for alcoholic cirrhosis with ascites andesophageal varices and past metabolic encephalopathy w/ weekly paracentesis, history of gastric antral vascular ectasia, COPD, tobacco use disorder who is admitted for symptomatic anemia. Symptomatic anemia 2/2 possible GI bleed? Decompensated EtoH Liver Cirrhosis 2/2 ascites, EV/IGV and duodenal varices sp embolization, PHG, gastric antral vascular ectasia, hepatic encephalopathy Non oliguric GRACIELA on CKD, pre-renal 2/2 blood loss vs hepatorenal Hyperkalemia Hypervolemic Hyponatremia Patient presents from outside hospital for symptomatic anemia. Initial hemoglobin 3.3 at [facility]. CT abdomen pelvis done at outside hospital with no concerns from that imaging besides ascites. Patient was evaluated in April for possible tips procedure but was deemed not a great medical candidate. Ongoing evaluation for liver transplant. - Hepatology consulted; appreciated recs Right heart cath done on 08/29/24 , hepatology recommends TIPSS for duodenal variceal bleeding TIPS by IR requested - Infectious workup sent: UA and urine culture negative and blood culture negative so far - Echo with bubble study obtained and reviewed - S/P paracentesis done on 08/22/2024 and 08/26/2024, labs negative for SBP - Continue [employer] lactulose and cholestyramine. Continue rifaximin 550 mg twice daily - Hold diuretics at this time due to hyponatremia - Continue [employer] folic acid Impression: - Grade I and small (< 5 mm) esophageal varices with no bleeding and no stigmata of recent bleeding. - 3 cm hiatal hernia. - A large amount of food (residue) in the stomach. - Portal hypertensive gastropathy. - Blood in the duodenal bulb. 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 - Erythematous duodenopathy. Suspect that his duodenal varices are bleeding or oozing on and off. fluid restriction< 1200 mL - Nephrology consulted and recommendations appreciated - Cardiology on board. - On Telemonitor - Daily meld labs-CBC, CMP, INR Chronic Problems: ? Tobacco use: Nicotine patch ?Neuropathic pain: Continue [employer] gabapentin ? 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 * Raimundo Ortega MD - 08/29/2024 6:50 AM EST PROGRESS NOTE - Gastroenterology Service [facility] [address] Name: Santiago Amador Date: 08/29/2024 Time: 7:58 AM SUBJECTIVE: Discussed with patient cause of suspected ABLA is the persistent duodenal varices. He is having brown bowel movements. Feeling frustrated because he wants to be closer to home. No fevers, chills. +Abd distension, but nausea or vomiting. Plan for Right heart cath today. BNP mildly elevated. ROS: Negative unless otherwise stated above. OBJECTIVE: Vital Signs Last 24 Hours: Systolic BP: Most Recent Systolic BP Av.1 mmHg Min: 97 mmHg Max: 138 mmHg Temperature: Most Recent Temperature Av C Min: 35.72 C Max: 36.28 C Pulse: Pulse Av.4 Min: 60 Max: 85 Respirations: Resp Av.9 Min: 12 Max: 18 SpO2: SpO2 Av.9 % Min: 91 % Max: 100 % Constitutional: NAD. A&Ox3. CV: RRR. No murmurs. Normal S1/S2. Chest: CTA bilat. No wheezing or rhonchi. GI: Soft, non tender, distended Extremities: No edema. Neurology: Moves all extremities. Last Bowel Movement: 08/28/24 (08/28/242008) Stool Description: Loose (08/28/242008) LABS: Reviewed in Epic. MELD 3.0: 23 at 08/28/2024 9:22 AM MELD-Na: 23 at 08/28/2024 9:22 AM Calculated from: Serum Creatinine: 1.4 mg/dL at 08/28/2024 9:22 AM Serum Sodium: 124 mmol/L (Using min of 125 mmol/L) at 08/28/2024 9:22 AM Total Bilirubin: 1.1 mg/dL at 08/28/2024 9:22 AM Serum Albumin: 2.6 g/dL at 08/28/2024 9:22 AM INR(ratio): 1.2 at 08/28/2024 9:22 AM Age at listing (hypothetical): 53 years Sex: Male at 08/28/2024 9:22 AM Chemistry Panel: Lab results within last 7 days (see chart for full results) Units 08/28/24 0922 08/27/24 0645 08/26/24 0329 SODIUM mmol/L 124* 123* 124* POTASSIUM mmol/L 5.1 5.6* 5.5* CHLORIDE mmol/L 101 101 101 CO2 mmol/L 15* 16* 15* BUN mg/dL 37* 41* 42* CREATININE mg/dL 1.4* 1.6* 1.9* Complete Blood Count: Lab results within last 7 days (see chart for full results) Units 08/28/24 0922 08/27/24 1432 08/27/24 0645 08/26/24 0329 WBC K/uL 8.62 -- 9.10 10.05 HGB g/dL 8.7* 8.0* 6.4* 7.9* PLT K/uL 153 -- 118* 138* Coagulation Studies: Lab results within last 7 days (see chart for full results) Units 08/28/24 0922 08/27/24 0645 08/26/24 0329 INR 1.2 1.5* 1.4* Liver Function Panel: Lab results within last 7 days (see chart for full results) Units 08/28/24 0922 08/27/24 0645 08/26/24 0329 Albumin g/dL 2.6* 2.3* 2.4* Protein g/dL 5.6* 4.8* 5.4* Bilirubin, Total mg/dL 1.1 0.7 0.9 AST U/L 21 15 18 ALT U/L 10 10 7* Alkaline Phosphatase U/L 53 47 60 IMAGING: Reviewed in Epic. No imaging results in the last 24 hours ASSESSMENT: Santiago Amador is a(n) 53 year old male with past medical history notable for ETOH cirrhosis complicated by ascites, portal hypertension, GAVE, esophageal and duodenal varices sp IR directed gastroduodenal varices coil embolization on 05/10/2024, and hepatic encephalopathy presenting [facility] and transferred to [facility] after being found to have hgb of 3.3 sp 4 units, to 6.4 and ascites, without overt signs of bleeding. Since then, his hemoglobin has stabilized. He underwent outpatient transplant evaluation and also seen in the clinic with no absolute contraindications noted and with remaining transplant work up including cardiology/ischemic cardiac testing,pulmonary evaluation, and colonoscopy. Despite the coil embolization directed at the gastroduodenal and esophageal varices 04/2024, he still has large duodenal varices, which do not have IR targets for further embolization. His lumbee MELD is 13, which would consider him a better candidate for TIPS for secondary prevention. RECOMMENDATIONS: Decompensated EtoH Liver Cirrhosis 2/2 ascites, EV/IGV and duodenal varices sp embolization, PHG, GAVE, HE Electrolyte derangements Stage 1 GRACIELA on CKD (increasing Cr), resolved Child's Wray 10C Meld 3.0 Score 30, now 27 AUD in remission, last drink 01/2024 Endoscopy revealed large duodenal varices with stigmata of bleeding Plan for RHC today to eval for heart failure and rule out cirrhotic CM. D/w cardiology team in regards to further measurements required from Echo. Ascites/peripheral edema - Hold diuretics at this time due to hyponatremia and his Cr function has significantly improved Cholestyramine for pruritus History of HE - titrate lactulose to goal 2-3 loose stools per day - rifaximin 550 mg BID Daily MELD labs while admitted (CBC, CMP, INR) DVT ppx I discussed the case with my attending, Dr. Ortega. Attending Attestation: I have discussed the patient's management with the medical trainee and agree with the note. Please refer to the documented findings and plan of care. The patient's bedside service today consisted of an evaluation. I was present and confirmed the findings of the history and exam. * Lolita Coyne MD - 08/28/2024 3:47 PM EST Images from the original note were not included. [facility] B648/B INTERVAL HISTORY: Overnight, no acute events. This morning, patient was seen and examined at bedside. Denies active complaints Denies bleeding Objective Physical Exam Most Recent Vital Signs: BP: 125 mmHg/64 mmHg (08/28/241540) Pulse: 62 (08/28/241540) Resp: 18 (08/28/241540) Temp: 35.83 C (08/28/241540) Temp Summary: Temp Min: 35.7 C (96.3 F) Max: 36 C (96.8 F) SpO2: 99 % (08/28/241540) O2 flow rate: 0 L/MIN (08/28/241540) Supplemental O2 Delivery: Room Air, None (08/28/241540) General: Patient in no apparent distress HEENT: normocephalic, atraumatic Heart: regular rate and rhythm; S1 and S2 present; no murmurs, rubs or gallops. Pulmonary: Lungs clear to auscultation bilaterally; no wheezes, rhonchi or crackles. Abdomen: Soft, non-tender, distended. Normal bowel sounds and no rebound or guarding. Extremities: No pitting edema present at lower extremity bilaterally Skin: [place], warm, no wounds or lesions present. Neuro: AAOx3. No gross motor or sensory deficits. Psych: Appropriate mood and affect Peripheral Line Left;Upper 20 Gauge (Active) Number of days: 7 STUDIES: Encounter Orders Labs and other studies reviewed with pertinent findings noted below: Labs: No results found for this or any previous visit (from the past 6 hours). Imaging: XR CHEST 1 VIEW Final Result EXAM: XR CHEST 1 VIEW - 08/22/2024 8:58 am HISTORY: To r/o cardiopulmonary source of infection TECHNIQUE: Single portable AP view of the chest COMPARISON: None FINDINGS: Catheters/tubes/devices/foreign bodies: None. Low lung volumes with patchy bibasilar atelectasis. No consolidation or effusion. No evidence of pneumothorax. Cardiomediastinal silhouette is within normal limits. Osseous structures are unremarkable. IMPRESSION IMPRESSION: Patchy bibasilar opacities are felt to most likely represent atelectasis given the low lung volumes. If clinical concern persists, recommend PA and lateral chest x-ray which will better characterize the posterior lung bases, otherwise partially obscured using portable technique. Assessment and Plan IMPRESSION : Principal Problem: Symptomatic anemia Active Problems: Alcoholic cirrhosis (HCC) Ascites due to alcoholic cirrhosis (HCC) COPD, mild (HCC) Kidney disease, chronic, stage IV (GFR 15-29 ml/min) (HCC) GRACIELA (acute kidney injury) (HCC) GAVE (gastric antral vascular ectasia) Severe protein-energy malnutrition (HCC) Duodenal varices Other cirrhosis of liver (HCC) Secondary esophageal varices with bleeding (HCC) Alcohol dependence, in remission (HCC) Acute hyperkalemia Hyponatremia Iron deficiency anemia due to chronic blood loss Portal hypertension (HCC) Preoperative cardiovascular examination Resolved Problems: * No resolved hospital problems. * I have examined the patient and consistent with the dietitian's findings found malnutrition presentof Severe (08/28/24 1300) degree. This is consistent with such due to Fat loss;Muscle loss (08/28/24 1300). I have also reviewed and agree with the dietitian's plan of care which include Oral nutritional supplement ordered/adjusted (08/28/24 1300). DIFFERENTIAL AND PLAN: Santiago Amador is a 53 year old male with PMHx significant for alcoholic cirrhosis with ascites andesophageal varices and past metabolic encephalopathy w/ weekly paracentesis, history of gastric antral vascular ectasia, COPD, tobacco use disorder who is admitted for symptomatic anemia. Symptomatic anemia 2/2 possible GI bleed? Decompensated EtoH Liver Cirrhosis 2/2 ascites, EV/IGV and duodenal varices sp embolization, PHG, gastric antral vascular ectasia, hepatic encephalopathy Non oliguric GRACIELA on CKD, pre-renal 2/2 blood loss vs hepatorenal Hyperkalemia Hypervolemic Hyponatremia Patient presents from outside hospital for symptomatic anemia. Initial hemoglobin 3.3 at [facility]. CT abdomen pelvis done at outside hospital with no concerns from that imaging besides ascites. Patient was evaluated in April for possible tips procedure but was deemed not a great medical candidate. Ongoing evaluation for liver transplant. - Hepatology consulted; appreciated recs - Infectious workup sent: UA and urine culture negative and blood culture negative so far - Echo with bubble study obtained and reviewed - S/P paracentesis done on 08/22/2024 and 08/26/2024, labs negative for SBP - Continue [employer] lactulose and cholestyramine. Continue rifaximin 550 mg twice daily - Hold diuretics at this time due to hyponatremia - discontinued ceftriaxone and octreotide infusion as per Hepatology - Continue [employer] folic acid - endoscopic evaluation on 08/28/2024 to rule out GI bleed, Impression: - Grade I and small (< 5 mm) esophageal varices with no bleeding and no stigmata of recent bleeding. - 3 cm hiatal hernia. - A large amount of food (residue) in the stomach. - Portal hypertensive gastropathy. - Blood in the duodenal bulb. 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 - Erythematous duodenopathy. Suspect that his duodenal varices are bleeding or oozing on and off. fluid restriction< 1200 mL - Nephrology consulted and recommendations appreciated - Cardiology on board. right and left heart catheterization tomorrow . will keep patient NPO after midnight - On Telemonitor - Daily meld labs-CBC, CMP, INR Chronic Problems: ? Tobacco use: Nicotine patch ?Neuropathic pain: Continue [employer] gabapentin ? 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 * Radha Gan DO - 08/28/2024 7:58 AM EST PROGRESS NOTE - Gastroenterology [place] [facility] [place] [address] Name: Santiago Amador Date: 08/28/2024 Time: 7:58 AM SUBJECTIVE: Tolerated bowel prep Pending labs Loose watery stools on his last bowel movement. ROS: Negative unless otherwise stated above. OBJECTIVE: Vital Signs Last 24 Hours: Systolic BP: Most Recent Systolic BP Av.3 mmHg Min: 101 mmHg Max: 127 mmHg Temperature: Most Recent Temperature Av.3 C Min: 35.72 C Max: 36.78 C Pulse: Pulse Av.8 Min: 62 Max: 70 Respirations: Resp Av.2 Min: 16 Max: 18 SpO2: SpO2 Av.7 % Min: 96 % Max: 100 % Constitutional: NAD. A&Ox3. CV: RRR. No murmurs. Normal S1/S2. Chest: CTA bilat. No wheezing or rhonchi. GI: Soft, non tender, distended Extremities: No edema. Neurology: Moves all extremities. Last Bowel Movement: 08/27/24 (08/27/241954) Stool Description: Loose;Brown (08/28/24 0200) LABS: Reviewed in Epic. MELD 3.0: 26 at 08/27/2024 6:45 AM MELD-Na: 25 at 08/27/2024 6:45 AM Calculated from: Serum Creatinine: 1.6 mg/dL at 08/27/2024 6:45 AM Serum Sodium: 123 mmol/L (Using min of 125 mmol/L) at 08/27/2024 6:45 AM Total Bilirubin: 0.7 mg/dL (Using min of 1 mg/dL) at 08/27/2024 6:45 AM Serum Albumin: 2.3 g/dL at 08/27/2024 6:45 AM INR(ratio): 1.5 at 08/27/2024 6:45 AM Age at listing (hypothetical): 53 years Sex: Male at 08/27/2024 6:45 AM Chemistry Panel: Lab results within last 7 days (see chart for full results) Units 08/27/24 0645 08/26/24 0329 08/25/24 0838 SODIUM mmol/L 123* 124* 125* POTASSIUM mmol/L 5.6* 5.5* 5.0 CHLORIDE mmol/L 101 101 100 CO2 mmol/L 16* 15* 16* BUN mg/dL 41* 42* 38* CREATININE mg/dL 1.6* 1.9* 1.8* Complete Blood Count: Lab results within last 7 days (see chart for full results) Units 08/27/24 1432 08/27/24 0645 08/26/24 0329 08/25/24 0838 WBC K/uL -- 9.10 10.05 8.66 HGB g/dL 8.0* 6.4* 7.9* 8.3* PLT K/uL -- 118* 138* 144 Coagulation Studies: Lab results within last 7 days (see chart for full results) Units 08/27/24 0645 08/26/24 0329 08/25/24 0838 INR 1.5* 1.4* 1.3* Liver Function Panel: Lab results within last 7 days (see chart for full results) Units 08/27/24 0645 08/26/24 0329 08/25/24 0838 Albumin g/dL 2.3* 2.4* 2.8* Protein g/dL 4.8* 5.4* 5.6* Bilirubin, Total mg/dL 0.7 0.9 1.6* AST U/L 15 18 19 ALT U/L 10 7* 14 Alkaline Phosphatase U/L 47 60 56 IMAGING: Reviewed in Epic. No imaging results in the last 24 hours ASSESSMENT: Santiago Amador is a(n) 53 year old male with past medical history notable for ETOH cirrhosis complicated by ascites, portal hypertension, GAVE, esophageal and duodenal varices sp IR directed gastroduodenal varices coil embolization on 05/10/2024, and hepatic encephalopathy presenting [facility] and transferred to [facility] [place] being found to have hgb of 3.3 sp 4 units, to 6.4 and ascites, without overt signs of bleeding. Since then, his hemoglobin has stabilized. Suspect this is oozing from PHG, compared to variceal etiology which would have been much more brisk and const hemodynamic instability. He underwent outpatient transplant evaluation and also seen in the clinic with no absolute contraindications noted and with remaining transplant work up including cardiology/ischemic cardiac testing,pulmonary evaluation, and colonoscopy. Given that he was admitted and was undergoing evaluation for possible routinely at hoped to have his colonoscopy done. However, anesthesiology did not allow forpatient to be scoped due to sodium. We discussed with cardiology for ischemic work up, as based on risk assessment, his cardiac cath does not show significant pHTN. However, he is at higher risk for ischemic disease and meets criteria for evaluation by cardiac catheterization. Unable to have L and R heart cath due to needing blood transfusions. We discussed with Santiago again, given the recurrent drop in hgb, it would be prudent to an endoscopic evaluation. He was agreeable. Upper endoscopy was recently completed in April 2024 with eso and duodenal varices, and he is now sp We offered an OP heart cath appt for Sep 20. Will discuss again if that works with him sp IR directed gastroduodenal varices coil embolization on 05/10/2024. RECOMMENDATIONS: Decompensated EtoH Liver Cirrhosis 2/2 ascites, EV/IGV and duodenal varices sp embolization, PHG, GAVE, HE Electrolyte derangements Stage 1 GRACIELA on CKD (increasing Cr), resolved to known prior baseline of 2 Child's Wray 10C Meld 3.0 Score 30, now 27 AUD in remission, last drink 01/2024 Plan for dual endoscopic procedure to eval for screening and bleeding. Further recommendations to follow after procedure Appreciate Cards c/s for heart cath - however, with recurrent anemia, will need endoscopic evaluation. Will discuss OP scheduling Ascites/peripheral edema - Hold diuretics at this time due to hyponatremia Cholestyramine for pruritus History of HE - titrate lactulose to goal 2-3 loose stools per day - rifaximin 550 mg BID Daily MELD labs while admitted (CBC, CMP, INR) DVT ppx I discussed the case with my attending, Dr. Munson. Cosigned by Matthew Munson MD at 08/28/2024 10:31 AM EST Associated attestation - Matthew Munson MD - 08/28/2024 10:31 AM EST I saw and evaluated the patient today. I have reviewed the resident/fellow physician note and agree. * Darcie Hernandez MD - 08/27/2024 8:29 AM EST Images from the original note were not included. [facility] [place] B648/B INTERVAL HISTORY: Overnight, no acute events. This morning, patient was seen and examined at bedside. He is AAOX3. Denied any active medical complaints. Status post paracentesis on 08/22/2024 and 08/26/2024. GI/Hepatology on board. Plan for endoscopic evaluation tomorrow on 08/28/2024 to rule out GI bleed,CLD tonight and NPO after midnight. Nephrology consulted and recommendations appreciated. Cardiology on board. Was planned for right and left heart catheterization today but canceled due tolow hemoglobin. Objective Physical Exam Most Recent Vital Signs: BP: 122 mmHg/53 mmHg (08/27/24637) Pulse: 67 (08/27/24637) Resp: 18 (08/27/24637) Temp: 36.78 C (08/27/24637) Temp Summary: Temp Min: 36.2 C (97.2 F) Max: 37.3 C (99.1 F) SpO2: 96 % (08/27/24637) O2 flow rate: Supplemental O2 Delivery: Room Air, None (08/27/24637) General: Patient in no apparent distress HEENT: normocephalic, atraumatic Heart: regular rate and rhythm; S1 and S2 present; no murmurs, rubs or gallops. Pulmonary: Lungs clear to auscultation bilaterally; no wheezes, rhonchi or crackles. Abdomen: Soft, non-tender, distended. Normal bowel sounds and no rebound or guarding. Extremities: No pitting edema present at lower extremity bilaterally Skin: [place], warm, no wounds or lesions present. Neuro: AAOx3. No gross motor or sensory deficits. Psych: Appropriate mood and affect Peripheral Line Lower;Right 20 Gauge (Active) Number of days: 6 Peripheral Line Left;Upper 20 Gauge (Active) Number of days: 6 STUDIES: Encounter Orders Labs and other studies reviewed with pertinent findings noted below: Labs: Recent Results (from the past 6 hours) COMPREHENSIVE METABOLIC PANEL Collection Time: 08/27/24 6:45 AM Result Value Ref Range BUN 41 (H) 6 - 20 mg/dL CREATININE 1.6 (H) 0.6 - 1.2 mg/dL EGFR 51 (L) >=60 mL/min SODIUM 123 (L) 135 - 146 mmol/L POTASSIUM 5.6 (H) 3.5 - 5.1 mmol/L CHLORIDE 101 98 - 107 mmol/L CO2 16 (L) 22 - 32 mmol/L ANION GAP 6 (L) 7 - 15 mmol/L GLUCOSE 98 70 - 120 mg/dL Albumin 2.3 (L) 3.8 - 5.0 g/dL AST 15 10 - 50 U/L Alkaline Phosphatase 47 35 - 130 U/L Bilirubin, Total 0.7 <=1.2 mg/dL CALCIUM 7.2 (L) 8.4 - 10.2 mg/dL Protein 4.8 (L) 6.0 - 8.3 g/dL ALT 10 10 - 50 U/L PT INR Collection Time: 08/27/24 6:45 AM Result Value Ref Range Prothrombin Time 17.9 (H) 11.6 - 15.2 seconds INR 1.5 (H) 0.8 - 1.2 MAGNESIUM Collection Time: 08/27/24 6:45 AM Result Value Ref Range Magnesium 2.7 (H) 1.5 - 2.6 mg/dL PHOSPHORUS Collection Time: 08/27/24 6:45 AM Result Value Ref Range Phosphorus 3.2 2.5 - 4.8 mg/dL CBC Collection Time: 08/27/24 6:45 AM Result Value Ref Range WBC 9.10 4.00 - 10.80 K/uL RBC 2.20 4.50 - 5.25 M/uL HGB 6.4 (L) 14.0 - 16.8 g/dL HCT 21.3 (L) 40.0 - 48.4 % MCV 96.8 82.0 - 99.5 fL MCH 29.1 27.0 - 34.0 pg MCHC 30.0 32.0 - 36.0 g/dL RDW 17.7 11.5 - 15.5 % PLT 118 (L) 140 - 400 K/uL MPV 9.7 6.6 - 11.1 fL nRBCs 0 <=0 /100 WBCs Imaging: XR CHEST 1 VIEW Final Result EXAM: XR CHEST 1 VIEW - 08/22/2024 8:58 am HISTORY: To r/o cardiopulmonary source of infection TECHNIQUE: Single portable AP view of the chest COMPARISON: None FINDINGS: Catheters/tubes/devices/foreign bodies: None. Low lung volumes with patchy bibasilar atelectasis. No consolidation or effusion. No evidence of pneumothorax. Cardiomediastinal silhouette is within normal limits. Osseous structures are unremarkable. IMPRESSION IMPRESSION: Patchy bibasilar opacities are felt to most likely represent atelectasis given the low lung volumes. If clinical concern persists, recommend PA and lateral chest x-ray which will better characterize the posterior lung bases, otherwise partially obscured using portable technique. Assessment and Plan IMPRESSION : Principal Problem: Symptomatic anemia Active Problems: Alcoholic cirrhosis (HCC) Ascites due to alcoholic cirrhosis (HCC) COPD, mild (HCC) Kidney disease, chronic, stage IV (GFR 15-29 ml/min) (HCC) GRACIELA (acute kidney injury) (HCC) GAVE (gastric antral vascular ectasia) Severe protein-energy malnutrition (HCC) Duodenal varices Other cirrhosis of liver (HCC) Secondary esophageal varices with bleeding (HCC) Alcohol dependence, in remission (HCC) Acute hyperkalemia Hyponatremia Iron deficiency anemia due to chronic blood loss Portal hypertension (HCC) Resolved Problems: * No resolved hospital problems. * DIFFERENTIAL AND PLAN: Santiago Amador is a 53 year old male with PMHx significant for alcoholic cirrhosis with ascites andesophageal varices and past metabolic encephalopathy w/ weekly paracentesis, history of gastric antral vascular ectasia, COPD, tobacco use disorder who is admitted for symptomatic anemia. Symptomatic anemia 2/2 possible GI bleed? Decompensated EtoH Liver Cirrhosis 2/2 ascites, EV/IGV and duodenal varices sp embolization, PHG, gastric antral vascular ectasia, hepatic encephalopathy Non oliguric GRACIELA on CKD, pre-renal 2/2 blood loss vs hepatorenal Hyperkalemia Hypervolemic Hyponatremia Patient presents from outside hospital for symptomatic anemia. Initial hemoglobin 3.3 at [facility]. CT abdomen pelvis done at outside hospital with no concerns from that imaging besides ascites. Patient was evaluated in April for possible tips procedure but was deemed not a great medical candidate. Ongoing evaluation for liver transplant. - Hepatology consulted; appreciated recs - hemoglobin is 6.4 today, 1 unit PRBC transfused, to monitor H/H and transfuse to keep above 7 - sodium today is 123, urine electrolytes showing sodium less than 20, potassium 26.1 and chloride less than 20 - Infectious workup sent: UA and urine culture negative and blood culture negative so far - Echo with bubble study obtained and reviewed - S/P paracentesis done on 08/22/2024 and 08/26/2024, labs negative for SBP - Continue [employer] lactulose and cholestyramine. Continue rifaximin 550 mg twice daily - Hold diuretics at this time due to hyponatremia - discontinued ceftriaxone and octreotide infusion as per Hepatology - Continue [employer] folic acid - Plan for endoscopic evaluation tomorrow on 08/28/2024 to rule out GI bleed, CLD tonight and NPO after midnight. - fluid restriction< 1200 mL - Nephrology consulted and recommendations appreciated - Cardiology on board. Was planned for right and left heart catheterization today but canceled due to low hemoglobin. - On Telemonitor - Daily meld labs-CBC, CMP, INR Chronic Problems: ? Tobacco use: Nicotine patch ?Neuropathic pain: Continue [employer] gabapentin ? 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 * Radha Gan DO - 08/27/2024 8:23 AM EST PROGRESS NOTE - Gastroenterology Service [facility] [place] [address] Name: Santiago Amador Date: 08/27/2024 Time: 7:45 AM SUBJECTIVE: Agreed to stay to further work up of his eval Unfortunately, with hgb of 6.4 this morning, and needing to receive blood, it may alter the heart cath results ROS: Negative unless otherwise stated above. OBJECTIVE: Vital Signs Last 24 Hours: Systolic BP: Most Recent Systolic BP Av mmHg Min: 108 mmHg Max: 125 mmHg Temperature: Most Recent Temperature Av.6 C Min: 36.22 C Max: 37.28 C Pulse: Pulse Av.6 Min: 67 Max: 72 Respirations: Resp Av Min: 18 Max: 18 SpO2: SpO2 Av.4 % Min: 94 % Max: 100 % Constitutional: NAD. A&Ox3. CV: RRR. No murmurs. Normal S1/S2. Chest: CTA bilat. No wheezing or rhonchi. GI: Soft, non tender, distended Extremities: No edema. Neurology: Moves all extremities. Last Bowel Movement: 08/26/24 (08/26/241932) Stool Description: Loose;Watery (08/25/241929) LABS: Reviewed in Epic. MELD 3.0: 26 at 08/27/2024 6:45 AM MELD-Na: 25 at 08/27/2024 6:45 AM Calculated from: Serum Creatinine: 1.6 mg/dL at 08/27/2024 6:45 AM Serum Sodium: 123 mmol/L (Using min of 125 mmol/L) at 08/27/2024 6:45 AM Total Bilirubin: 0.7 mg/dL (Using min of 1 mg/dL) at 08/27/2024 6:45 AM Serum Albumin: 2.3 g/dL at 08/27/2024 6:45 AM INR(ratio): 1.5 at 08/27/2024 6:45 AM Age at listing (hypothetical): 53 years Sex: Male at 08/27/2024 6:45 AM Chemistry Panel: Lab results within last 7 days (see chart for full results) Units 08/27/24 0645 08/26/24 0329 08/25/24 0838 SODIUM mmol/L 123* 124* 125* POTASSIUM mmol/L 5.6* 5.5* 5.0 CHLORIDE mmol/L 101 101 100 CO2 mmol/L 16* 15* 16* BUN mg/dL 41* 42* 38* CREATININE mg/dL 1.6* 1.9* 1.8* Complete Blood Count: Lab results within last 7 days (see chart for full results) Units 08/27/24 0645 08/26/24 0329 08/25/24 0838 WBC K/uL 9.10 10.05 8.66 HGB g/dL 6.4* 7.9* 8.3* PLT K/uL 118* 138* 144 Coagulation Studies: Lab results within last 7 days (see chart for full results) Units 08/27/24 0645 08/26/24 0329 08/25/24 0838 INR 1.5* 1.4* 1.3* Liver Function Panel: Lab results within last 7 days (see chart for full results) Units 08/27/24 0645 08/26/24 0329 08/25/24 0838 Albumin g/dL 2.3* 2.4* 2.8* Protein g/dL 4.8* 5.4* 5.6* Bilirubin, Total mg/dL 0.7 0.9 1.6* AST U/L 15 18 19 ALT U/L 10 7* 14 Alkaline Phosphatase U/L 47 60 56 IMAGING: Reviewed in Epic. No imaging results in the last 24 hours ASSESSMENT: Santiago Amador is a(n) 53 year old male with past medical history notable for ETOH cirrhosis complicated by ascites, portal hypertension, GAVE, esophageal and duodenal varices sp IR directed gastroduodenal varices coil embolization on 05/10/2024., and hepatic encephalopathy presenting to [facility] and transferred to [facility] [place] after being found to have hgb of 3.3 sp 4 units, to 6.4 and ascites, without overt signs of bleeding. Since then, his hemoglobin has stabilized. Suspect this is oozing from PHG, compared to variceal etiology which would have been much more brisk and const hemodynamic instability. He underwent outpatient transplant evaluation and also seen in the clinic with no absolute contraindications noted and with remaining transplant work up including cardiology/ischemic cardiac testing,pulmonary evaluation, and colonoscopy. Given that he was admitted and was undergoing evaluation for possible routinely at hoped to have his colonoscopy done. However, anesthesiology did not allow forpatient to be scoped due to sodium. We discussed with cardiology for ischemic work up, as based on risk assessment, his cardiac cath does not show significant pHTN. However, he is at higher risk for ischemic disease and meets criteria for evaluation by cardiac catheterization. Unable to have L and R heart cath today due to needing blood transfusions. We discussed with Santiago again, given the recurrent drop in hgb, it would be prudent to an endoscopic evaluation. He was agreeable. We offered an OP heart cath appt for Sep 20. Will discuss again if that works with him. RECOMMENDATIONS: Decompensated EtoH Liver Cirrhosis 2/2 ascites, EV/IGV and duodenal varices sp embolization, PHG, GAVE, HE Electrolyte derangements Stage 1 GRACIELA on CKD (increasing Cr), resolved to known prior baseline of 2 Child's Wray 10C Meld 3.0 Score 30, now 27 AUD in remission, last drink 01/2024 Recommend therapeutic paracentesis today Appreciate Cards c/s for heart cath - however, with recurrent anemia, will need endoscopic evaluation. Repeat prep ordered for today. CLD today and plan for colonoscopy tomorrow Please ensure Hgb > 7.0, INR<2, K>3.5, Platelets >50K, sodium is within 5 points of reference range prior to the procedure. Ascites/peripheral edema - Hold diuretics at this time due to hyponatremia Cholestyramine for pruritus History of HE - titrate lactulose to goal 2-3 loose stools per day - rifaximin 550 mg BID Daily MELD labs while admitted (CBC, CMP, INR) DVT ppx I discussed the case with my attending, Dr. Munson. Cosigned by Matthew Munson MD at 08/27/2024 10:53 AM EST Associated attestation - Matthew Munson MD - 08/27/2024 10:53 AM EST I saw and evaluated the patient today. I have reviewed the resident/fellow physician note and agree. * Darcie Hernandez MD - 08/26/2024 8:51 AM EST Images from the original note were not included. [facility] [place] B648/B INTERVAL HISTORY: Overnight, no acute events. This morning, patient was seen and examined at bedside. He is AAOX3. Denied any active medical complaints. Denied fever, chills, nausea, vomiting, cough, chest pain, shortness of breath, palpitations, abdominal pain, any urinary or bowel changes. Status post paracentesis on 08/22/2024, 9.1 L fluid was removed. GI/Hepatology on board. Plan for Cologuard as outpatient or CT colonography+/- flex sigmoidoscopy. Nephrology consulted and recommendations appreciated. Cardiology consulted and plan for likely right and left heart catheterization tomorrow. NPO after midnight. Objective Physical Exam Most Recent Vital Signs: BP: 169 mmHg/92 mmHg (08/26/24 0653) Pulse: 71 (08/26/24 0653) Resp: 18 (08/26/24652) Temp: 36.22 C (08/26/24652) Temp Summary: Temp Min: 36.2 C (97.2 F) Max: 36.9 C (98.4 F) SpO2: 97 % (08/26/24652) O2 flow rate: Supplemental O2 Delivery: Room Air, None (08/26/24 0800) General: Patient in no apparent distress HEENT: normocephalic, atraumatic Heart: regular rate and rhythm; S1 and S2 present; no murmurs, rubs or gallops. Pulmonary: Lungs clear to auscultation bilaterally; no wheezes, rhonchi or crackles. Abdomen: Soft, non-tender, distended. Normal bowel sounds and no rebound or guarding. Extremities: No pitting edema present at lower extremity bilaterally Skin: [place], warm, no wounds or lesions present. Neuro: AAOx3. No gross motor or sensory deficits. Psych: Appropriate mood and affect Peripheral Line Lower;Right 20 Gauge (Active) Number of days: 5 Peripheral Line Left;Upper 20 Gauge (Active) Number of days: 5 STUDIES: Encounter Orders Labs and other studies reviewed with pertinent findings noted below: Labs: Recent Results (from the past 6 hours) COMPREHENSIVE METABOLIC PANEL Collection Time: 08/26/24 3:29 AM Result Value Ref Range BUN 42 (H) 6 - 20 mg/dL CREATININE 1.9 (H) 0.6 - 1.2 mg/dL EGFR 41 (L) >=60 mL/min SODIUM 124 (L) 135 - 146 mmol/L POTASSIUM 5.5 (H) 3.5 - 5.1 mmol/L CHLORIDE 101 98 - 107 mmol/L CO2 15 (L) 22 - 32 mmol/L ANION GAP 8 7 - 15 mmol/L GLUCOSE 101 70 - 120 mg/dL Albumin 2.4 (L) 3.8 - 5.0 g/dL AST 18 10 - 50 U/L Alkaline Phosphatase 60 35 - 130 U/L Bilirubin, Total 0.9 <=1.2 mg/dL CALCIUM 7.6 (L) 8.4 - 10.2 mg/dL Protein 5.4 (L) 6.0 - 8.3 g/dL ALT 7 (L) 10 - 50 U/L PT INR Collection Time: 08/26/24 3:29 AM Result Value Ref Range Prothrombin Time 17.1 (H) 11.6 - 15.2 seconds INR 1.4 (H) 0.8 - 1.2 MAGNESIUM Collection Time: 08/26/24 3:29 AM Result Value Ref Range Magnesium 2.7 (H) 1.5 - 2.6 mg/dL PHOSPHORUS Collection Time: 08/26/24 3:29 AM Result Value Ref Range Phosphorus 3.8 2.5 - 4.8 mg/dL CBC Collection Time: 08/26/24 3:29 AM Result Value Ref Range WBC 10.05 4.00 - 10.80 K/uL RBC 2.66 4.50 - 5.25 M/uL HGB 7.9 (L) 14.0 - 16.8 g/dL HCT 25.6 (L) 40.0 - 48.4 % MCV 96.2 82.0 - 99.5 fL MCH 29.7 27.0 - 34.0 pg MCHC 30.9 32.0 - 36.0 g/dL RDW 17.6 11.5 - 15.5 % PLT 138 (L) 140 - 400 K/uL MPV 9.5 6.6 - 11.1 fL nRBCs 0 <=0 /100 WBCs Imaging: XR CHEST 1 VIEW Final Result EXAM: XR CHEST 1 VIEW - 08/22/2024 8:58 am HISTORY: To r/o cardiopulmonary source of infection TECHNIQUE: Single portable AP view of the chest COMPARISON: None FINDINGS: Catheters/tubes/devices/foreign bodies: None. Low lung volumes with patchy bibasilar atelectasis. No consolidation or effusion. No evidence of pneumothorax. Cardiomediastinal silhouette is within normal limits. Osseous structures are unremarkable. IMPRESSION IMPRESSION: Patchy bibasilar opacities are felt to most likely represent atelectasis given the low lung volumes. If clinical concern persists, recommend PA and lateral chest x-ray which will better characterize the posterior lung bases, otherwise partially obscured using portable technique. Assessment and Plan IMPRESSION : Principal Problem: Symptomatic anemia Active Problems: Alcoholic cirrhosis (HCC) Ascites due to alcoholic cirrhosis (HCC) COPD, mild (HCC) Kidney disease, chronic, stage IV (GFR 15-29 ml/min) (HCC) GRACIELA (acute kidney injury) (HCC) GAVE (gastric antral vascular ectasia) Severe protein-energy malnutrition (HCC) Duodenal varices Other cirrhosis of liver (HCC) Secondary esophageal varices with bleeding (HCC) Alcohol dependence, in remission (HCC) Acute hyperkalemia Hyponatremia Resolved Problems: * No resolved hospital problems. * DIFFERENTIAL AND PLAN: Santiago Amador is a 53 year old male with PMHx significant for alcoholic cirrhosis with ascites andesophageal varices and past metabolic encephalopathy w/ weekly paracentesis, history of gastric antral vascular ectasia, COPD, tobacco use disorder who is admitted for symptomatic anemia. Symptomatic anemia 2/2 possible GI bleed? Decompensated EtoH Liver Cirrhosis 2/2 ascites, EV/IGV and duodenal varices sp embolization, PHG, gastric antral vascular ectasia, hepatic encephalopathy Non oliguric GRACIELA on CKD, pre-renal 2/2 blood loss vs hepatorenal Hyperkalemia Hypervolemic Hyponatremia Patient presents from outside hospital for symptomatic anemia. Initial hemoglobin 3.3 at [facility]. Has received 4 units prior to transfer. Currently asymptomatic after transfusions. Had CT abdomen pelvis done at outside hospital with no concerns from that imaging besides ascites. Has weekly par acentesis. Patient was evaluated in April for possible tips procedure but was deemed not a great medical candidate. - Hepatology consulted; appreciated recs - hemoglobin is 7.9 today, to monitor H/H and transfuse to keep above 7 - sodium today is 124, urine electrolytes showing sodium less than 20, potassium 26.1 and chloride less than 20 - Infectious workup sent: UA and urine culture negative and blood culture negative so far - Diagnostic and therapeutic paracentesis done on 08/22/2024, 9.1 L ascites fluid drained, labs negative for SBP - plan for repeat therapeutic paracentesis today, general medicine team consulted for procedure - Continue [employer] lactulose and cholestyramine. Continue rifaximin 550 mg twice daily - Hold diuretics at this time due to hyponatremia - Continue [employer] folic acid - Plan for Cologuard as outpatient or CT colonography+/-flex sigmoidoscopy as per GI/Hepatology team - On Telemonitor - Daily meld labs-CBC, CMP, INR - Echo with bubble study obtained and reviewed - fluid restriction< 1200 mL - Nephrology consulted and recommendations appreciated - Cardiology consulted and plan for likely right and left heart catheterization tomorrow. NPO aftermidnight Chronic Problems: ? Tobacco use: Nicotine patch ?Neuropathic pain: Continue [employer] gabapentin ? 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 * Radha Gan, DO - 08/26/2024 7:54 AM EST PROGRESS NOTE - Gastroenterology Service [address] [address] Name: Santiago Amador Date: 08/26/2024 Time: 7:45 AM SUBJECTIVE: Ambulating to bathroom this morning. He is very frustrated about having to stay in the hospital He denies any fevers or chills. No abdominal pain. He states that his abdominal distention has returned, but prefers his other doctor when discussed that he would be able to have it done today here. He is frustrated on wants to go home. ROS: Negative unless otherwise stated above. OBJECTIVE: Vital Signs Last 24 Hours: Systolic BP: Most Recent Systolic BP Av.8 mmHg Min: 125 mmHg Max: 169 mmHg Temperature: Most Recent Temperature Av.5 C Min: 36.22 C Max: 36.89 C Pulse: Pulse Av Min: 65 Max: 77 Respirations: Resp Av Min: 18 Max: 18 SpO2: SpO2 Av % Min: 97 % Max: 100 % Constitutional: NAD. A&Ox3. CV: RRR. No murmurs. Normal S1/S2. Chest: CTA bilat. No wheezing or rhonchi. GI: Soft, NT, distended Extremities: Minimal +1-2 2 edema. Neurology: Moves all extremities. Last Bowel Movement: 08/25/24 (08/25/241929) Stool Description: Loose;Watery (08/25/241929) LABS: Reviewed in Epic. MELD 3.0: 27 at 08/26/2024 3:29 AM MELD-Na: 26 at 08/26/2024 3:29 AM Calculated from: Serum Creatinine: 1.9 mg/dL at 08/26/2024 3:29 AM Serum Sodium: 124 mmol/L (Using min of 125 mmol/L) at 08/26/2024 3:29 AM Total Bilirubin: 0.9 mg/dL (Using min of 1 mg/dL) at 08/26/2024 3:29 AM Serum Albumin: 2.4 g/dL at 08/26/2024 3:29 AM INR(ratio): 1.4 at 08/26/2024 3:29 AM Age at listing (hypothetical): 53 years Sex: Male at 08/26/2024 3:29 AM Chemistry Panel: Lab results within last 7 days (see chart for full results) Units 08/26/24 0329 08/25/24 0838 08/24/24 0758 SODIUM mmol/L 124* 125* 123* POTASSIUM mmol/L 5.5* 5.0 5.1 CHLORIDE mmol/L 101 100 98 CO2 mmol/L 15* 16* 18* BUN mg/dL 42* 38* 42* CREATININE mg/dL 1.9* 1.8* 2.0* Complete Blood Count: Lab results within last 7 days (see chart for full results) Units 08/26/24 0329 08/25/24 0838 08/24/24 1808 08/24/24 0758 WBC K/uL 10.05 8.66 -- 9.21 HGB g/dL 7.9* 8.3* 8.2* 6.9* PLT K/uL 138* 144 -- 136* Coagulation Studies: Lab results within last 7 days (see chart for full results) Units 08/26/24 0329 08/25/24 0838 08/24/24 0758 INR 1.4* 1.3* 1.4* Liver Function Panel: Lab results within last 7 days (see chart for full results) Units 08/26/24 0329 08/25/24 0838 08/24/24 0758 Albumin g/dL 2.4* 2.8* 2.5* Protein g/dL 5.4* 5.6* 5.0* Bilirubin, Total mg/dL 0.9 1.6* 1.0 AST U/L 18 19 14 ALT U/L 7* 14 12 Alkaline Phosphatase U/L 60 56 52 IMAGING: Reviewed in Epic. No imaging results in the last 24 hours ASSESSMENT: Santiago Amador is a(n) 53 year old male with past medical history notable for ETOH cirrhosis complicated by ascites, portal hypertension, GAVE, esophageal and duodenal varices sp IR directed gastroduodenal varices coil embolization on 05/10/2024., and hepatic encephalopathy presenting to [facility] and transferred to [facility] after being found to have hgb of 3.3 sp 4 units, to 6.4 and ascites, without overt signs of bleeding. Since then, his hemoglobin has stabilized. Suspect this is oozing from PHG, compared to variceal etiology which would have been much more brisk and const hemodynamic instability. He underwent outpatient transplant evaluation and also seen in the clinic with no absolute contraindications noted and with remaining transplant work up including cardiology/ischemic cardiac testing,pulmonary evaluation, and colonoscopy. Given that he was admitted and was undergoing evaluation for possible routinely at hoped to have his colonoscopy done. However, anesthesiology did not allow forpatient to be scoped due to sodium. We discussed with cardiology for ischemic work up, as based on risk assessment, his cardiac cath does not show significant pHTN. However, he is at higher risk for ischemic disease and meets criteria for evaluation by cardiac catheterization. Patient is frustrated and states that he has things to do at home, and needs to catch up. We recommended that by attempting to plan these evaluations as an outpatient may delay transplant evaluation.We will discuss today at transplant meeting. However, our recommendations to patient were to stay and complete ischemic work up. RECOMMENDATIONS: Decompensated EtoH Liver Cirrhosis 2/2 ascites, EV/IGV and duodenal varices sp embolization, PHG, GAVE, HE Electrolyte derangements Stage 1 GRACIELA on CKD (increasing Cr), resolved to known prior baseline of 2 Child's Wray 10C Meld 3.0 Score 30, now 27 AUD in remission, last drink 01/2024 Infectious w/u : Bcx NGTD, UA/Ucx negt, CXR neg for consolidation, RVP negative, Diagnostic Paracentesis negative of SBP Recommend therapeutic paracentesis today Appreciate Cards c/s for heart cath Will consider cologuard as OP or will consider CT colonography +/- flex sig or OP as patient would prefer to do [facility] at [facility]. Ascites/peripheral edema - Hold diuretics at this time due to hyponatremia Cholestyramine for pruritus History of HE - titrate lactulose to goal 2-3 loose stools per day - rifaximin 550 mg BID Daily MELD labs while admitted (CBC, CMP, INR) dvt ppx I discussed the case with my attending, Dr. Munson. Cosigned by Matthew Munson MD at 08/26/2024 11:27 AM EST Associated attestation - Matthew Munson MD - 08/26/2024 11:27 AM EST I saw and evaluated the patient today. I have reviewed the resident/fellow physician note and agree. * Brandon Edwards MD - 08/25/2024 9:24 AM EST PROGRESS NOTE - Nephrology [facility] [address] Hospital Day: 4 Overview: Santiago Amador is a 53 year old male with past history notable for CKD stage 3b with baseline creatinine of 1.5-1.7 mg/dl, decompensated alcoholic cirrhosis, alcoholism, recurrent ascites requiring frequent weekly paracentesis, COPD, former smoker, family history of colon cancer, GAVE, malnutrition, duodenal varices and secondary esophageal varices with bleeding, was admitted to the hospital on 08/21/2024 as a transfer from [facility] with symptomatic anemia with concern of GI bleeding. Nephrology following for GRACIELA on CKD stage 3b thought to be due to prerenal versus ATN in the setting of decompensated cirrhosis + acute blood loss anemia. Subjective: Patient was seen and examined at bedside today. Lying comfortably in bed without any obvious distress. Maintaining sats on room air. Continues to have significant abdominal distention. Denied shortness of breath, chest pain, cough, fever, orthopnea, PND, palpitation, nausea, vomiting, diarrhea or any urinary symptoms. Documented urine output is 1300 ml since midnight. No significant overnight events. Pertinent positives and negatives as documented in the HPI. All other systems are negative. PMH/PSH/FH/SH: reviewed Allergies: reviewed Current medication list reviewed. Objective/Physical Examination Most Recent Vital Signs: BP: 123 mmHg/68 mmHg (08/25/24706) Pulse: 62 (08/25/24706) Resp: 18 (08/25/24706) Temp: 36.11 C (08/25/24706) Temp Summary: Temp Min: 36.1 C (97 F) Max: 37.1 C (98.8 F) SpO2: 100 % (08/25/24706) O2 flow rate: Supplemental O2 Delivery: Room Air, None (08/25/24706) Vital Signs last 24 Hours: Systolic BP: Most Recent Systolic BP Av.3 mmHg Min: 109 mmHg Max: 147 mmHg Temperature: Most Recent Temperature Av.5 C Min: 36.11 C Max: 37.11 C Pulse: Pulse Av.7 Min: 62 Max: 69 Respirations: Resp Av.8 Min: 16 Max: 18 SpO2: SpO2 Av.8 % Min: 94 % Max: 100 % Body mass index is 34.78 kg/m. Intake/Output Summary (Last 24 hours) at 08/25/2024923 Last data filed at 08/25/2024 0700 Gross per 24 hour Intake 2039.84 ml Output 1000 ml Net 1039.84 ml General: No acute distress. Chronic ill-looking. HEENT: Normocephalic, atraumatic. EOM intact. Moist mucosa. Neck: Trachea is midline. No JVD appreciable. Cardiovascular: RRR. No murmurs. No palpable thrill. Pulmonary: Normal respiratory pattern. Clear to auscultation bilaterally. Abdomen: Soft, non-tender, distended. No masses. Bowel sounds present. Extremities: Mild pedal edema noted. Skin: Warm, with normal turgor. No rashes. Neuro: Alert, oriented x 3. No focal deficits. Psych: Normal thought content and intact judgment. Labs reviewed as indicated below: Lab results within last 7 days (see chart for full results) Units 08/25/24 0838 08/24/24 0758 08/23/24 0719 SODIUM mmol/L 125* 123* 125* POTASSIUM mmol/L 5.0 5.1 4.8 CHLORIDE mmol/L 100 98 98 CO2 mmol/L 16* 18* 18* BUN mg/dL 38* 42* 44* CREATININE mg/dL 1.8* 2.0* 2.0* Lab results within last 7 days (see chart for full results) Units 08/25/24 0838 08/24/24 1808 08/24/24 0758 08/23/24 0719 HGB g/dL 8.3* 8.2* 6.9* 7.0* HCT % 27.6* 27.7* 22.6* 22.8* WBC K/uL 8.66 -- 9.21 7.69 PLT K/uL 144 -- 136* 160 Lab results within last 7 days (see chart for full results) Units 08/25/24 0838 08/24/24 0758 08/23/24 0719 CALCIUM mg/dL 7.7* 7.2* 7.3* Magnesium mg/dL 2.7* 2.6 2.7* Phosphorus mg/dL 3.6 4.0 3.9 Albumin g/dL 2.8* 2.5* 2.4* Recent Cultures (2 Weeks) 08/22/2024 08/21/2024 08/21/2024 2:31 PM 12:10 PM 12:05 PM AFB STAIN DESCRIPTION No acid fast bacilli seen -- -- STAIN DESCRIPTION No polymorphonuclear leukocytes seen -- -- No organisms seen CULTURE GROWTH No growth to date -- -- BLOOD CULTURE GROWTH -- No growth to date No growth to date Pertinent Imaging :personally reviewed images No imaging results in the last 24 hours Impression: GRACIELA on CKD stage 3b likely due to prerenal versus ATN in the setting of decompensated cirrhosis + acute blood loss anemia. Symptomatic anemia 2/2 possible GI bleed? Decompensated alcoholic Liver Cirrhosis with recurrent ascites requiring frequent paracentesis, EV/IGV and duodenal varices sp embolization. S/p 9 L paracentesis 3 days back- Reports getting the procedure weekly for 10 L removal and confirms that he receives albumin. Sober since January 2024. GI following; ?transplant candidate. Volume status: Hypervolemic with significant 3rd spacing. BP: Stable. Electrolytes: Hypervolemic hyponatremia in the setting of decompensated liver cirrhosis improving with sodium 125 and potassium 5 today. Acid-base status: NAGMA with bicarb 16. Uremia: Improving BUN 38, creatinine 1.8 mg/dL today. Corrected calcium normal, phosphorus normal. Significant hypoalbuminemia with albumin 2.8. Anemia with hemoglobin stable at 8.3 grams/deciliter today. -received PRBC transfusion yesterday. Recommendations Kidney function on improving trend with good urine output. Continue to avoid nephrotoxic drugs and dose medications according to his eGFR. Keep map above 65 mmHg. Patient continues to have significant ascites requiring frequent paracentesis- would advise to reassess for another paracentesis again early next week. In the setting of frequent need of paracentesis, would continue to hold on [employer] Lasix and spironolactone which can precipitate HRS due to intravascular volume depletion. Continue accurate IO charting. Considering significant hypervolemic hyponatremia which is asymptomatic at the moment, would adviseto keep him on 1.2 L fluid restriction. Expect baseline sodium in the mid-120's at most given decompensated cirrhosis and high basal ADH activity due to decreased effective circulatory volume. It should not be a hindrance in any necessary procedures. Daily BMP. Would appreciate workup for liver transplant candidacy. Patient has history of complex renal cyst in previous imaging which needs to be evaluated with repeat imaging and Urology follow up. Nephrology will sign off at this point. Please contact if any questions. Patient needs to follow upin Nephrology Clinic in 1-2 weeks of discharge with fresh BMP. Rest of the management as per primary team. Thanks for letting me participate in this patient's care. I have discussed the assessment and management plan with Dr. Suleiman Garrido, the attending physician and communicated to the primary team. Brandon Edwards MD Fellow nephrology [facility] Cosigned by Hema Bearden DO at 08/25/2024 3:07 PM EST Associated attestation - Hema Bearden DO - 08/25/2024 3:07 PM EST I saw and evaluated the patient today. I have reviewed the resident/fellow physician note and agree. * Darcie Hernandez MD - 08/25/2024 8:38 AM EST Images from the original note were not included. [facility] B648/B INTERVAL HISTORY: Overnight, no acute events. This morning, patient was seen and examined at bedside. He is AAOX3. He reported that he feels muchbetter after paracentesis yesterday. Denied fever, chills, nausea, vomiting, cough, chest pain, shortness of breath, palpitations, abdominal pain, any urinary or bowel changes. Status post paracentesis on 08/22/2024, 9.1 L fluid was removed. Hepatology on board. Plan for endoscopic evaluation was canceled for today. Plan for Cologuard as outpatient or CT colonography+/-flex sigmoidoscopy as per GI/Hepatology team. Nephrology consulted for GRACIELA on CKD and recommendations appreciated. Discussed with Cardiology for evaluation for stress test or left and right heart catheterization asa part of liver transplant workup, will plan once patient is more stable as per Cardiology, possible stress test on Monday. Objective Physical Exam Most Recent Vital Signs: BP: 123 mmHg/68 mmHg (08/25/24706) Pulse: 62 (08/25/24706) Resp: 18 (08/25/24706) Temp: 36.11 C (08/25/24706) Temp Summary: Temp Min: 36.1 C (97 F) Max: 37.1 C (98.8 F) SpO2: 100 % (08/25/24706) O2 flow rate: Supplemental O2 Delivery: Room Air, None (08/25/24706) General: Patient in no apparent distress HEENT: normocephalic, atraumatic Heart: regular rate and rhythm; S1 and S2 present; no murmurs, rubs or gallops. Pulmonary: Lungs clear to auscultation bilaterally; no wheezes, rhonchi or crackles. Abdomen: Soft, non-tender, distended. Normal bowel sounds and no rebound or guarding. Extremities: No pitting edema present at lower extremity bilaterally Skin: [place], warm, no wounds or lesions present. Neuro: AAOx3. No gross motor or sensory deficits. Psych: Appropriate mood and affect Peripheral Line Lower;Right 20 Gauge (Active) Number of days: 4 Peripheral Line Left;Upper 20 Gauge (Active) Number of days: 4 STUDIES: Encounter Orders Labs and other studies reviewed with pertinent findings noted below: Labs: No results found for this or any previous visit (from the past 6 hours). Imaging: XR CHEST 1 VIEW Final Result EXAM: XR CHEST 1 VIEW - 08/22/2024 8:58 am HISTORY: To r/o cardiopulmonary source of infection TECHNIQUE: Single portable AP view of the chest COMPARISON: None FINDINGS: Catheters/tubes/devices/foreign bodies: None. Low lung volumes with patchy bibasilar atelectasis. No consolidation or effusion. No evidence of pneumothorax. Cardiomediastinal silhouette is within normal limits. Osseous structures are unremarkable. IMPRESSION IMPRESSION: Patchy bibasilar opacities are felt to most likely represent atelectasis given the low lung volumes. If clinical concern persists, recommend PA and lateral chest x-ray which will better characterize the posterior lung bases, otherwise partially obscured using portable technique. Assessment and Plan IMPRESSION : Principal Problem: Symptomatic anemia Active Problems: Alcoholic cirrhosis (HCC) Ascites due to alcoholic cirrhosis (HCC) COPD, mild (HCC) Kidney disease, chronic, stage IV (GFR 15-29 ml/min) (HCC) GRACIELA (acute kidney injury) (HCC) GAVE (gastric antral vascular ectasia) Severe protein-energy malnutrition (HCC) Duodenal varices Other cirrhosis of liver (HCC) Secondary esophageal varices with bleeding (HCC) Alcohol dependence, in remission (HCC) Acute hyperkalemia Hyponatremia Resolved Problems: * No resolved hospital problems. * DIFFERENTIAL AND PLAN: Santiago Amador is a 53 year old male with PMHx significant for alcoholic cirrhosis with ascites andesophageal varices and past metabolic encephalopathy w/ weekly paracentesis, history of gastric antral vascular ectasia, COPD, tobacco use disorder who is admitted for symptomatic anemia. Symptomatic anemia 2/2 possible GI bleed? Decompensated EtoH Liver Cirrhosis 2/2 ascites, EV/IGV and duodenal varices sp embolization, PHG, gastric antral vascular ectasia, hepatic encephalopathy Non oliguric GRACIELA on CKD, pre-renal 2/2 blood loss vs hepatorenal Hyperkalemia Hypervolemic Hyponatremia Patient presents from outside hospital for symptomatic anemia. Initial hemoglobin 3.3 at [facility]. Has received 4 units prior to transfer. Currently asymptomatic after transfusions. No pinpoint area of bleeding at this time. Had CT abdomen pelvis done at outside hospital with no concerns from that imaging besides ascites. Has weekly paracentesis. Patient was evaluated in April for possibletips procedure but was deemed not a great medical candidate. - Hepatology consulted; appreciated recs - hemoglobin is 8.3 today, to monitor H/H and transfuse to keep above 7 - sodium today is 125, urine electrolytes showing sodium less than 20, potassium 26.1 and chloride less than 20 - Infectious workup sent: UA and urine culture negative and blood culture negative so far - Diagnostic and therapeutic paracentesis done on 08/22/2024, 9.1 L ascites fluid drained, CBC withdifferential, total protein, albumin-reviewed and culture from ascitic fluid negative so far, negative for SBP - PeTH in process, Cystatin C elevated to 2.60, EGFR 23 - Continue [employer] lactulose and cholestyramine. Continue rifaximin 550 mg twice daily - discontinued pantoprazole and octreotide infusion today - Hold diuretics at this time due to hyponatremia - Continue [employer] folic acid - plan for endoscopic evaluation was canceled for today,Plan for Cologuard as outpatient or CT colonography+/-flex sigmoidoscopy as per GI/Hepatology team - On Telemonitor - Daily meld labs-CBC, CMP, INR - Echo with bubble study obtained - fluid restriction< 1000 mL - CCM team consulted, recommended no ICU level care needed at this time - Nephrology consulted and recommendations appreciated. Recommended to continue to hold on diuretics and spironolactone, albumin 25 g q.6 today, sodium and fluid restriction. No acute indication for renal replacement therapy at this time - discussed with Cardiology team for evaluation for stress test or left and right heart catheterization as a part of liver transplant workup, will plan once patient is more stable as per Cardiology, possible stress test on Monday Chronic Problems: ? Tobacco use: Nicotine patch ?Neuropathic pain: Continue [employer] gabapentin ? 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 * Radha Gan DO - 08/25/2024 7:49 AM EST PROGRESS NOTE - Gastroenterology Service [facility] [address] Name: Santiago Amador Date: 08/25/2024 Time: 7:45 AM SUBJECTIVE: Patient had yest abd fullness and was ok starting half prep yesterday evening Having loose watery stool ROS: Negative unless otherwise stated above. OBJECTIVE: Vital Signs Last 24 Hours: Systolic BP: Most Recent Systolic BP Av.3 mmHg Min: 109 mmHg Max: 147 mmHg Temperature: Most Recent Temperature Av.5 C Min: 36.11 C Max: 37.11 C Pulse: Pulse Av.7 Min: 62 Max: 69 Respirations: Resp Av.8 Min: 16 Max: 18 SpO2: SpO2 Av.8 % Min: 94 % Max: 100 % Constitutional: NAD. A&Ox3. CV: RRR. No murmurs. Normal S1/S2. Chest: CTA bilat. No wheezing or rhonchi. GI: Soft, NT/ND. BSx4. Extremities: No edema. Neurology: Moves all extremities. Last Bowel Movement: 08/25/24 (08/25/24629) Stool Description: Loose;Watery (per patient) (08/25/24629) LABS: Reviewed in Epic. MELD 3.0: 27 at 08/24/2024 7:58 AM MELD-Na: 26 at 08/24/2024 7:58 AM Calculated from: Serum Creatinine: 2 mg/dL at 08/24/2024 7:58 AM Serum Sodium: 123 mmol/L (Using min of 125 mmol/L) at 08/24/2024 7:58 AM Total Bilirubin: 1 mg/dL at 08/24/2024 7:58 AM Serum Albumin: 2.5 g/dL at 08/24/2024 7:58 AM INR(ratio): 1.4 at 08/24/2024 7:58 AM Age at listing (hypothetical): 53 years Sex: Male at 08/24/2024 7:58 AM Chemistry Panel: Lab results within last 7 days (see chart for full results) Units 08/24/24 0758 08/23/24 0719 08/22/24 0601 SODIUM mmol/L 123* 125* 124* POTASSIUM mmol/L 5.1 4.8 5.6* CHLORIDE mmol/L 98 98 98 CO2 mmol/L 18* 18* 18* BUN mg/dL 42* 44* 59* CREATININE mg/dL 2.0* 2.0* 2.5* Complete Blood Count: Lab results within last 7 days (see chart for full results) Units 08/24/24 1808 08/24/24 0758 08/23/24 0719 08/22/24 2041 08/22/24 0601 WBC K/uL -- 9.21 7.69 -- 8.46 HGB g/dL 8.2* 6.9* 7.0* < > 6.3* PLT K/uL -- 136* 160 -- 181 < > = values in this interval not displayed. Coagulation Studies: Lab results within last 7 days (see chart for full results) Units 08/24/24 0758 08/23/24 0718 08/22/24 0601 INR 1.4* 1.4* 1.4* Liver Function Panel: Lab results within last 7 days (see chart for full results) Units 08/24/24 0758 08/23/24 0719 08/22/24 0601 Albumin g/dL 2.5* 2.4* 2.6* Protein g/dL 5.0* 4.9* 5.1* Bilirubin, Total mg/dL 1.0 1.5* 1.7* AST U/L 14 17 20 ALT U/L 12 12 13 Alkaline Phosphatase U/L 52 53 59 IMAGING: Reviewed in Epic. No imaging results in the last 24 hours ASSESSMENT: Santiago Amador is a(n) 53 year old male with past medical history notable for ETOH cirrhosis complicated by ascites, portal hypertension, GAVE, esophageal and duodenal varices, and hepatic encephalopathy presenting to [facility] and transferred to [facility] after being found to have hgb of 3.3 sp 4units, to 6.4 and ascites, without overt signs of bleeding. Of note, he recently was admitted to [facility] in April for AoC anemia and underwent IR directed gastroduodenal varices coil embolization on 05/10/2024. S/p IR peritoneal drain placed draining significant amount of ascites. He underwent inpatient transplant evaluation and also seen in the clinic with no absolute contraindications noted and with remaining transplant work up including cardiology/ischemic cardiac testing, pulmonary evaluation, and colonoscopy. I hope that sodium normalizes allowing patient a greater chance to tolerate prep for a colonoscopy and eval for bleeding with dual endoscopy. RECOMMENDATIONS: Decompensated EtoH Liver Cirrhosis 2/2 ascites, EV/IGV and duodenal varices sp embolization, PHG, GAVE, HE Electrolyte derangements Stage 1 GRACIELA on CKD (increasing Cr), resolved at known prior baseline of 2 Child's Wray 10C Meld 3.0 Score 30 AUD in remission, last drink 01/2024 Infectious w/u : Bcx NGTD, UA/Ucx negt, CXR neg for consolidation, RVP negative, Diagnostic Paracentesis (please send for CBC w/ diff, total protein, albumin, culture) negative of SBP Will need Nuc Med Cardiac study, but likely needs higher hgb (likely 7), once sodium improves, obtain Cards c/s for R and L heart cath Holding on any further bowel prep as patient's sodium is low Will need endoscopic evaluation when stabilized and hgb closer to 129 and able to tolerate prep Ok to advance diet today, will consider cologuard as OP or will consider CT colonography +/- flex sig Nephrology eval for hyponatremia, pending reccs. Ascites/peripheral edema - Hold diuretics at this time due to hyponatremia Cholestyramine for pruritus Monitor for GI Bleed given decreasing hgb History of HE - titrate lactulose to goal 3-5 loose stools per day (retention enema if unable to tolerate PO) - rifaximin 550 mg BID Daily MELD labs while admitted (CBC, CMP, INR) dvt ppx Ok to resume diet with fluid restriction I discussed the case with my attending, Drs. Ledezma and Shannon. Cosigned by Noa Ledezma DO at 08/25/2024 2:19 PM EST Associated attestation - Noa Ledezma DO - 08/25/2024 2:19 PM EST I saw and evaluated the patient today. I have reviewed the resident/fellow physician note and agree. * Brandon Edwards MD - 08/24/2024 4:53 PM EST PROGRESS NOTE - Nephrology [facility] [place] [address] Hospital Day: 3 Overview: Santiago Amador is a 53 year old male with past history notable for CKD stage 3b with baseline creatinine of 1.5-1.7 mg/dl, decompensated alcoholic cirrhosis, alcoholism, recurrent ascites requiring frequent weekly paracentesis, COPD, former smoker, family history of colon cancer, GAVE, malnutrition, duodenal varices and secondary esophageal varices with bleeding, was admitted to the hospital on 08/21/2024 as a transfer from [facility] with symptomatic anemia with concern of GI bleeding. Nephrology following for GRACIELA on CKD stage 3b thought to be due to prerenal versus ATN in the setting of decompensated cirrhosis + acute blood loss anemia. Subjective: Patient was seen and examined at bedside today. Lying comfortably in bed without any obvious distress. Maintaining sats on room air. Continues to have significant abdominal distention. Denied shortness of breath, chest pain, cough, fever, orthopnea, PND, palpitation, nausea, vomiting, diarrhea or any urinary symptoms. Documented urine output is 1300 ml since midnight. No significant overnight events. Pertinent positives and negatives as documented in the HPI. All other systems are negative. PMH/PSH/FH/SH: reviewed Allergies: reviewed Current medication list reviewed. Objective/Physical Examination Most Recent Vital Signs: BP: 147 mmHg/73 mmHg (08/24/24 1334) Pulse: 69 (08/24/24 1334) Resp: 18 (08/24/24 1334) Temp: 36.5 C (08/24/24 1334) Temp Summary: Temp Min: 36.5 C (97.7 F) Max: 37.1 C (98.8 F) SpO2: 100 % (08/24/24 1334) O2 flow rate: Supplemental O2 Delivery: Room Air, None (08/24/24 133) Vital Signs last 24 Hours: Systolic BP: Most Recent Systolic BP Av.8 mmHg Min: 106 mmHg Max: 147 mmHg Temperature: Most Recent Temperature Av.7 C Min: 36.5 C Max: 37.11 C Pulse: Pulse Av.7 Min: 64 Max: 89 Respirations: Resp Av.3 Min: 16 Max: 18 SpO2: SpO2 Av.3 % Min: 93 % Max: 100 % Body mass index is 32.02 kg/m. Intake/Output Summary (Last 24 hours) at 08/24/2024 1653 Last data filed at 08/24/2024 1334 Gross per 24 hour Intake 1898.75 ml Output 1850 ml Net 48.75 ml General: No acute distress. Chronic ill-looking. HEENT: Normocephalic, atraumatic. EOM intact. Moist mucosa. Neck: Trachea is midline. No JVD appreciable. Cardiovascular: RRR. No murmurs. No palpable thrill. Pulmonary: Normal respiratory pattern. Clear to auscultation bilaterally. Abdomen: Soft, non-tender, distended. No masses. Bowel sounds present. Extremities: Mild pedal edema noted. Skin: Warm, with normal turgor. No rashes. Neuro: Alert, oriented x 3. No focal deficits. Psych: Normal thought content and intact judgment. Labs reviewed as indicated below: Lab results within last 7 days (see chart for full results) Units 08/24/24 0758 08/23/24 0719 08/22/24 0601 SODIUM mmol/L 123* 125* 124* POTASSIUM mmol/L 5.1 4.8 5.6* CHLORIDE mmol/L 98 98 98 CO2 mmol/L 18* 18* 18* BUN mg/dL 42* 44* 59* CREATININE mg/dL 2.0* 2.0* 2.5* Lab results within last 7 days (see chart for full results) Units 08/24/24 0758 08/23/24 0719 08/22/24204008/22/24 0601 HGB g/dL 6.9* 7.0* 7.5* 6.3* HCT % 22.6* 22.8* 24.4* 20.0* WBC K/uL 9.21 7.69 -- 8.46 PLT K/uL 136* 160 -- 181 Lab results within last 7 days (see chart for full results) Units 08/24/24 0758 08/23/24 0719 08/22/24 0601 CALCIUM mg/dL 7.2* 7.3* 7.5* Magnesium mg/dL 2.6 2.7* 2.8* Phosphorus mg/dL 4.0 3.9 4.0 Albumin g/dL 2.5* 2.4* 2.6* Recent Cultures (2 Weeks) 08/22/2024 08/21/2024 08/21/2024 2:31 PM 12:10 PM 12:05 PM AFB STAIN DESCRIPTION No acid fast bacilli seen -- -- STAIN DESCRIPTION No polymorphonuclear leukocytes seen -- -- No organisms seen CULTURE GROWTH No growth to date -- -- BLOOD CULTURE GROWTH -- No growth to date No growth to date Pertinent Imaging :personally reviewed images No imaging results in the last 24 hours Impression: GRACIELA on CKD stage 3b likely due to prerenal versus ATN in the setting of decompensated cirrhosis + acute blood loss anemia. Symptomatic anemia 2/2 possible GI bleed? Decompensated alcoholic Liver Cirrhosis with recurrent ascites requiring frequent paracentesis, EV/IGV and duodenal varices sp embolization. Volume status: Hypervolemic with significant 3rd spacing. BP: Stable. Electrolytes: Hypervolemic hyponatremia in the setting of decompensated liver cirrhosis with [id number], potassium 5.1. Acid-base status: NAGMA with bicarb 18. Uremia: Improving BUN 42, creatinine 2 mg/dL today. Cystatin C based EGFR 23. Corrected calcium normal, phosphorus normal. Significant hypoalbuminemia with albumin 2.5. Worsening anemia with hemoglobin 6.9 grams/deciliter today with mild thrombocytopenia. Recommendations Kidney function on improving trend with good urine output. Continue to avoid nephrotoxic drugs and dose medications according to his EGFR. Keep map above 65 mmHg. Patient continues to have significant ascites requiring frequent paracentesis- would advise to reassess for paracentesis again early next week. In the setting of frequent need of paracentesis, would continue to hold on J[employer] CONSULTANT Lasix and spironolactone which can precipitate HRS due to intravascular volume depletion. Continue accurate IO charting. Considering significant hypervolemic hyponatremia which is asymptomatic at the moment, would adviseto keep him on 1.2 L fluid restriction. Daily BMP. Would appreciate workup for liver transplant candidacy. Rest of the management as per primary team. Thanks for letting me participate in this patient's care. I have discussed the assessment and management plan with Dr. Suleiman Garrido, the attending physician and communicated to the primary team. Brandon Edwards MD Fellow nephrology [facility] Cosigned by Hema Bearden DO at 08/24/2024 6:13 PM EST Associated attestation - Hema Bearden DO - 08/24/2024 6:13 PM EST I saw and evaluated the patient today. I have reviewed the resident/fellow physician note and agree. Ascites recurring after just 2 days s/p 9L paracentesis. Reports getting the procedure weekly for 10L removal and confirms that he receives albumin. Sober since January 2024. GI following; ?transplant candidate. Recommend repeat paracentesis early next week. Hold diuretics for now in anticipation. Kidney function stable. No need for [employer] SUPER[employer]OR. Expect baseline sodium in the mid-120's at most given decompensated cirrhosis and high basal ADH activity due to decreased effective circulatory volume. Discussed with Dr. Hernandez of [facility]. * Darcie Hernandez MD - 08/24/2024 8:37 AM EST Images from the original note were not included. [facility] B646/B INTERVAL HISTORY: Overnight, no acute events. This morning, patient was seen and examined at bedside. He is AAOX3. He reported that he feels muchbetter after paracentesis yesterday. Denied fever, chills, nausea, vomiting, cough, chest pain, shortness of breath, palpitations, abdominal pain, any urinary or bowel changes. Status post paracentesis on 08/22/2024, 9.1 L fluid was removed. Hepatology on board. Plan for endoscopic evaluation tomorrow. Cl T tonight and NPO after midnight. Nephrology consulted for GRACIELA on CKD and recommendations appreciated. Discussed with Cardiology for evaluation for stress test or left and right heart catheterization asa part of liver transplant workup, will plan once patient is more stable as per Cardiology, possible stress test on Monday. Objective Physical Exam Most Recent Vital Signs: BP: 132 mmHg/64 mmHg (08/24/24 0815) Pulse: 89 (08/24/24814) Resp: 18 (08/24/24814) Temp: 37.06 C (08/24/24814) Temp Summary: Temp Min: 36.1 C (97 F) Max: 37.1 C (98.8 F) SpO2: 99 % (08/24/24814) O2 flow rate: Supplemental O2 Delivery: Room Air, None (08/24/24814) General: Patient in no apparent distress HEENT: normocephalic, atraumatic Heart: regular rate and rhythm; S1 and S2 present; no murmurs, rubs or gallops. Pulmonary: Lungs clear to auscultation bilaterally; no wheezes, rhonchi or crackles. Abdomen: Soft, non-tender, distended. Normal bowel sounds and no rebound or guarding. Extremities: No pitting edema present at lower extremity bilaterally Skin: [place]ford, warm, no wounds or lesions present. Neuro: AAOx3. No gross motor or sensory deficits. Psych: Appropriate mood and affect Peripheral Line Lower;Right 20 Gauge (Active) Number of days: 3 Peripheral Line Left;Upper 20 Gauge (Active) Number of days: 3 STUDIES: Encounter Orders Labs and other studies reviewed with pertinent findings noted below: Labs: Recent Results (from the past 6 hours) COMPREHENSIVE METABOLIC PANEL Collection Time: 08/24/24 7:58 AM Result Value Ref Range BUN 42 (H) 6 - 20 mg/dL CREATININE 2.0 (H) 0.6 - 1.2 mg/dL EGFR 40 (L) >=60 mL/min SODIUM 123 (L) 135 - 146 mmol/L POTASSIUM 5.1 3.5 - 5.1 mmol/L CHLORIDE 98 98 - 107 mmol/L CO2 18 (L) 22 - 32 mmol/L ANION GAP 7 7 - 15 mmol/L GLUCOSE 115 70 - 120 mg/dL Albumin 2.5 (L) 3.8 - 5.0 g/dL AST 14 10 - 50 U/L Alkaline Phosphatase 52 35 - 130 U/L Bilirubin, Total 1.0 <=1.2 mg/dL CALCIUM 7.2 (L) 8.4 - 10.2 mg/dL Protein 5.0 (L) 6.0 - 8.3 g/dL ALT 12 10 - 50 U/L PT INR Collection Time: 08/24/24 7:58 AM Result Value Ref Range Prothrombin Time 17.5 (H) 11.6 - 15.2 seconds INR 1.4 (H) 0.8 - 1.2 MAGNESIUM Collection Time: 08/24/24 7:58 AM Result Value Ref Range Magnesium 2.6 1.5 - 2.6 mg/dL PHOSPHORUS Collection Time: 08/24/24 7:58 AM Result Value Ref Range Phosphorus 4.0 2.5 - 4.8 mg/dL CBC Collection Time: 08/24/24 7:58 AM Result Value Ref Range WBC 9.21 4.00 - 10.80 K/uL RBC 2.41 4.50 - 5.25 M/uL HGB 6.9 (L) 14.0 - 16.8 g/dL HCT 22.6 (L) 40.0 - 48.4 % MCV 93.8 82.0 - 99.5 fL MCH 28.6 27.0 - 34.0 pg MCHC 30.5 32.0 - 36.0 g/dL RDW 17.2 11.5 - 15.5 % PLT 136 (L) 140 - 400 K/uL MPV 8.8 6.6 - 11.1 fL nRBCs 0 <=0 /100 WBCs Imaging: XR CHEST 1 VIEW Final Result EXAM: XR CHEST 1 VIEW - 08/22/2024 8:58 am HISTORY: To r/o cardiopulmonary source of infection TECHNIQUE: Single portable AP view of the chest COMPARISON: None FINDINGS: Catheters/tubes/devices/foreign bodies: None. Low lung volumes with patchy bibasilar atelectasis. No consolidation or effusion. No evidence of pneumothorax. Cardiomediastinal silhouette is within normal limits. Osseous structures are unremarkable. IMPRESSION IMPRESSION: Patchy bibasilar opacities are felt to most likely represent atelectasis given the low lung volumes. If clinical concern persists, recommend PA and lateral chest x-ray which will better characterize the posterior lung bases, otherwise partially obscured using portable technique. Assessment and Plan IMPRESSION : Principal Problem: Symptomatic anemia Active Problems: Alcoholic cirrhosis (HCC) Ascites due to alcoholic cirrhosis (HCC) COPD, mild (HCC) Kidney disease, chronic, stage IV (GFR 15-29 ml/min) (HCC) GRACIELA (acute kidney injury) (HCC) GAVE (gastric antral vascular ectasia) Severe protein-energy malnutrition (HCC) Duodenal varices Other cirrhosis of liver (HCC) Secondary esophageal varices with bleeding (HCC) Alcohol dependence, in remission (HCC) Acute hyperkalemia Hyponatremia Resolved Problems: * No resolved hospital problems. * DIFFERENTIAL AND PLAN: Santiago Amador is a 53 year old male with PMHx significant for alcoholic cirrhosis with ascites andesophageal varices and past metabolic encephalopathy w/ weekly paracentesis, history of gastric antral vascular ectasia, COPD, tobacco use disorder who is admitted for symptomatic anemia. Symptomatic anemia 2/2 possible GI bleed? Decompensated EtoH Liver Cirrhosis 2/2 ascites, EV/IGV and duodenal varices sp embolization, PHG, gastric antral vascular ectasia, hepatic encephalopathy Non oliguric GRACIELA on CKD, pre-renal 2/2 blood loss vs hepatorenal Hyperkalemia Hypervolemic Hyponatremia Patient presents from outside hospital for symptomatic anemia. Initial hemoglobin 3.3 at [facility]. Has received 4 units prior to transfer. Currently asymptomatic after transfusions. No pinpoint area of bleeding at this time. Had CT abdomen pelvis done at outside hospital with no concerns from that imaging besides ascites. Has weekly paracentesis. Patient was evaluated in April for possibletips procedure but was deemed not a great medical candidate. - Hepatology consulted; appreciated recs - hemoglobin 6.9 today, 1 unit PRBC transfusion ordered, to monitor H/H and transfuse to keep above7 - sodium today is 123, urine electrolytes showing sodium less than 20, potassium 26.1 and chloride less than 20 - Infectious workup sent: UA and urine culture negative and blood culture negative so far - Diagnostic and therapeutic paracentesis done on 08/22/2024, 9.1 L ascites fluid drained, CBC withdifferential, total protein, albumin-reviewed and culture from ascitic fluid negative so far, to follow up final results - Anemia workup- iron panel, ferritin, LD, haptoglobin, reticulocyte panel-reviewed - PeTH in process, Cystatin C elevated to 2.60, EGFR 23 - Continue [employer] lactulose and cholestyramine. Continue rifaximin 550 mg twice daily - continue pantoprazole IV 40 mg q.12 hours - continue ceftriaxone for ppx - continue octreotide infusion - Hold diuretics at this time due to hyponatremia - Continue [employer] folic acid - plan for endoscopic evaluation today by GI team possibly tomorrow, CLD tonight and NPO after midnight - On Telemonitor - Daily meld labs-CBC, CMP, INR - Echo with bubble study obtained - fluid restriction< 1000 mL - CCM team consulted, recommended no ICU level care needed at this time - Nephrology consulted and recommendations appreciated. Recommended to continue to hold on diuretics and spironolactone, albumin 25 g q.6 today, sodium and fluid restriction. No acute indication for renal replacement therapy at this time - discussed with Cardiology team for evaluation for stress test or left and right heart catheterization as a part of liver transplant workup, will plan once patient is more stable as per Cardiology, possible stress test on Monday Chronic Problems: ? Tobacco use: Nicotine patch ?Neuropathic pain: Continue J[employer] gabapentin ? 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 * Darcie Hernandez MD - 08/23/2024 8:30 AM EST Images from the original note were not included. [facility] B646/B INTERVAL HISTORY: Overnight, no acute events. This morning, patient was seen and examined at bedside. He is AAOX3. He reported that he feels muchbetter after paracentesis yesterday. Denied fever, chills, nausea, vomiting, cough, chest pain, shortness of breath, palpitations, abdominal pain, any urinary or bowel changes. Status post paracentesis on 08/22/2024, 9 L fluid was removed. Hepatology on board. Plan was to do endoscopic evaluation today but canceled by GI/Hepatology in view low sodium level. Nephrology consulted for GRACIELA on CKD and recommendations appreciated. Cardiology consulted for evaluation for left and right heart catheterization as a part of liver transplant workup. Objective Physical Exam Most Recent Vital Signs: BP: 131 mmHg/64 mmHg (08/23/24 0754) Pulse: 67 (08/23/24 0754) Resp: 17 (08/23/24 0754) Temp: 36.89 C (08/23/24 0754) Temp Summary: Temp Min: 36 C (96.8 F) Max: 36.9 C (98.4 F) SpO2: 98 % (08/23/24 0754) O2 flow rate: Supplemental O2 Delivery: Room Air, None (08/23/24 075) General: Patient in no apparent distress HEENT: normocephalic, atraumatic Heart: regular rate and rhythm; S1 and S2 present; no murmurs, rubs or gallops. Pulmonary: Lungs clear to auscultation bilaterally; no wheezes, rhonchi or crackles. Abdomen: Soft, non-tender, distended. Normal bowel sounds and no rebound or guarding. Extremities: No pitting edema present at lower extremity bilaterally Skin: [place], warm, no wounds or lesions present. Neuro: AAOx3. No gross motor or sensory deficits. Psych: Appropriate mood and affect Peripheral Line Lower;Right 20 Gauge (Active) Number of days: 2 Peripheral Line Left;Upper 20 Gauge (Active) Number of days: 2 STUDIES: Encounter Orders Labs and other studies reviewed with pertinent findings noted below: Labs: Recent Results (from the past 6 hours) PT INR Collection Time: 08/23/24 7:18 AM Result Value Ref Range Prothrombin Time 17.6 (H) 11.6 - 15.2 seconds INR 1.4 (H) 0.8 - 1.2 COMPREHENSIVE METABOLIC PANEL Collection Time: 08/23/24 7:19 AM Result Value Ref Range BUN 44 (H) 6 - 20 mg/dL CREATININE 2.0 (H) 0.6 - 1.2 mg/dL EGFR 41 (L) >=60 mL/min SODIUM 125 (L) 135 - 146 mmol/L POTASSIUM 4.8 3.5 - 5.1 mmol/L CHLORIDE 98 98 - 107 mmol/L CO2 18 (L) 22 - 32 mmol/L ANION GAP 9 7 - 15 mmol/L GLUCOSE 121 (H) 70 - 120 mg/dL Albumin 2.4 (L) 3.8 - 5.0 g/dL AST 17 10 - 50 U/L Alkaline Phosphatase 53 35 - 130 U/L Bilirubin, Total 1.5 (H) <=1.2 mg/dL CALCIUM 7.3 (L) 8.4 - 10.2 mg/dL Protein 4.9 (L) 6.0 - 8.3 g/dL ALT 12 10 - 50 U/L MAGNESIUM Collection Time: 08/23/24 7:19 AM Result Value Ref Range Magnesium 2.7 (H) 1.5 - 2.6 mg/dL PHOSPHORUS Collection Time: 08/23/24 7:19 AM Result Value Ref Range Phosphorus 3.9 2.5 - 4.8 mg/dL CBC Collection Time: 08/23/24 7:19 AM Result Value Ref Range WBC 7.69 4.00 - 10.80 K/uL RBC 2.44 4.50 - 5.25 M/uL HGB 7.0 (L) 14.0 - 16.8 g/dL HCT 22.8 (L) 40.0 - 48.4 % MCV 93.4 82.0 - 99.5 fL MCH 28.7 27.0 - 34.0 pg MCHC 30.7 32.0 - 36.0 g/dL RDW 17.2 11.5 - 15.5 % PLT 160 140 - 400 K/uL MPV 9.4 6.6 - 11.1 fL nRBCs 0 <=0 /100 WBCs Imaging: XR CHEST 1 VIEW Final Result EXAM: XR CHEST 1 VIEW - 08/22/2024 8:58 am HISTORY: To r/o cardiopulmonary source of infection TECHNIQUE: Single portable AP view of the chest COMPARISON: None FINDINGS: Catheters/tubes/devices/foreign bodies: None. Low lung volumes with patchy bibasilar atelectasis. No consolidation or effusion. No evidence of pneumothorax. Cardiomediastinal silhouette is within normal limits. Osseous structures are unremarkable. IMPRESSION IMPRESSION: Patchy bibasilar opacities are felt to most likely represent atelectasis given the low lung volumes. If clinical concern persists, recommend PA and lateral chest x-ray which will better characterize the posterior lung bases, otherwise partially obscured using portable technique. Assessment and Plan IMPRESSION : Principal Problem: Symptomatic anemia Active Problems: Alcoholic cirrhosis (HCC) Ascites due to alcoholic cirrhosis (HCC) COPD, mild (HCC) Kidney disease, chronic, stage IV (GFR 15-29 ml/min) (HCC) GRACIELA (acute kidney injury) (HCC) GAVE (gastric antral vascular ectasia) Severe protein-energy malnutrition (HCC) Duodenal varices Other cirrhosis of liver (HCC) Secondary esophageal varices with bleeding (HCC) Alcohol dependence, in remission (HCC) Acute hyperkalemia Resolved Problems: * No resolved hospital problems. * DIFFERENTIAL AND PLAN: Santiago Amador is a 53 year old male with PMHx significant for alcoholic cirrhosis with ascites andesophageal varices and past metabolic encephalopathy w/ weekly paracentesis, history of gastric antral vascular ectasia, COPD, tobacco use disorder who is admitted for symptomatic anemia. Symptomatic anemia 2/2 possible GI bleed? Decompensated EtoH Liver Cirrhosis 2/2 ascites, EV/IGV and duodenal varices sp embolization, PHG, gastric antral vascular ectasia, hepatic encephalopathy Non oliguric GRACIELA on CKD, pre-renal 2/2 blood loss vs hepatorenal Hyperkalemia Hypervolemic Hyponatremia Patient presents from outside hospital for symptomatic anemia. Initial hemoglobin 3.3 at [facility]. Has received 4 units prior to transfer. Currently asymptomatic after transfusions. No pinpoint area of bleeding at this time. Had CT abdomen pelvis done at outside hospital with no concerns from that imaging besides ascites. Has weekly paracentesis. Patient was evaluated in April for possibletips procedure but was deemed not a great medical candidate. - Hepatology consulted; appreciated recs - hemoglobin 7 today, to monitor H/H and transfuse to keep above 7 - urine electrolytes showing sodium less than 20, potassium 26.1 and chloride less than 20 - Infectious workup sent: UA and urine culture negative and blood culture negative so far - Diagnostic and therapeutic paracentesis done on 08/22/2024, 9.1 L ascites fluid drained, CBC withdifferential, total protein, albumin-reviewed and culture from ascitic fluid negative so far, to follow up final results - Anemia workup- iron panel, ferritin, LD, haptoglobin, reticulocyte panel-reviewed - PeT in process - Continue [employer] lactulose and cholestyramine. Continue rifaximin 550 mg twice daily - continue pantoprazole IV 40 mg q.12 hours - continue ceftriaxone for ppx - continue octreotide infusion - Hold diuretics at this time due to hyponatremia - Continue [employer] folic acid - plan for endoscopic evaluation today by GI team which was canceled in view of low-sodium level - On Telemonitor - Daily meld labs-CBC, CMP, INR - Echo with bubble study obtained - fluid restriction< 1000 mL - CCM team consulted, recommended no ICU level care needed at this time - Nephrology consulted and recommendations appreciated. Recommended to continue to hold on diuretics and spironolactone, albumin 25 g q.6 today, to obtain Cystatin C, sodium and fluid restriction. Noacute indication for renal replacement therapy at this time - Cardiology consulted for evaluation for left and right heart catheterization as a part of liver transplant workup Chronic Problems: ? Tobacco use: Nicotine patch ?Neuropathic pain: Continue J[employer] gabapentin ? 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 * Raimundo Ortega MD - 08/23/2024 6:47 AM EST PROGRESS NOTE - Gastroenterology Service [address] [address] Name: Santiago Amador Date: 08/23/2024 Time: 7:45 AM SUBJECTIVE: Still having brown bowel movements. Sodium 125 Very lethargic but AAOx3 9.1L removed yesterday with paracentesis and no evidence of SBP. ROS: Negative unless otherwise stated above. OBJECTIVE: Vital Signs Last 24 Hours: Systolic BP: Most Recent Systolic BP Av.2 mmHg Min: 105 mmHg Max: 143 mmHg Temperature: Most Recent Temperature Av.5 C Min: 36 C Max: 36.61 C Pulse: Pulse Av.1 Min: 60 Max: 75 Respirations: Resp Av.2 Min: 16 Max: 18 SpO2: SpO2 Av.8 % Min: 95 % Max: 100 % Constitutional: NAD. A&Ox3. CV: RRR. No murmurs. Normal S1/S2. Chest: CTA bilat. No wheezing or rhonchi. GI: Soft, NT/ND. BSx4. Extremities: No edema. Neurology: Moves all extremities. Last Bowel Movement: 08/23/24 (08/23/24526) Stool Description: Large;Liquid;Loose;Brown (08/23/24526) LABS: Reviewed in Epic. MELD 3.0: 30 at 08/22/2024 6:01 AM MELD-Na: 29 at 08/22/2024 6:01 AM Calculated from: Serum Creatinine: 2.5 mg/dL at 08/22/2024 6:01 AM Serum Sodium: 124 mmol/L (Using min of 125 mmol/L) at 08/22/2024 6:01 AM Total Bilirubin: 1.7 mg/dL at 08/22/2024 6:01 AM Serum Albumin: 2.6 g/dL at 08/22/2024 6:01 AM INR(ratio): 1.4 at 08/22/2024 6:01 AM Age at listing (hypothetical): 53 years Sex: Male at 08/22/2024 6:01 AM Chemistry Panel: Lab results within last 7 days (see chart for full results) Units 08/22/24 0601 08/21/24 1057 SODIUM mmol/L 124* 127* POTASSIUM mmol/L 5.6* 5.9* CHLORIDE mmol/L 98 99 CO2 mmol/L 18* 20* BUN mg/dL 59* 65* CREATININE mg/dL 2.5* 2.6* Complete Blood Count: Lab results within last 7 days (see chart for full results) Units 08/22/24 20408/22/24 0601 08/21/24 1057 WBC K/uL -- 8.46 8.97 HGB g/dL 7.5* 6.3* 6.4* PLT K/uL -- 181 205 Coagulation Studies: Lab results within last 7 days (see chart for full results) Units 08/22/24 0601 08/21/24 1057 INR 1.4* 1.3* Liver Function Panel: Lab results within last 7 days (see chart for full results) Units 08/22/24 0601 08/21/24 1057 Albumin g/dL 2.6* 2.8* Protein g/dL 5.1* 5.5* Bilirubin, Total mg/dL 1.7* 3.5* AST U/L 20 22 ALT U/L 13 14 Alkaline Phosphatase U/L 59 67 IMAGING: Reviewed in Epic. XR CHEST 1 VIEW Result Date: 08/22/2024 IMPRESSION: Patchy bibasilar opacities are felt to most likely represent atelectasis given the low lung volumes. If clinical concern persists, recommend PA and lateral chest x-ray which will better characterize the posterior lung bases, otherwise partially obscured using portable technique. ASSESSMENT: Santiago Amador is a(n) 53 year old male with past medical history notable for ETOH cirrhosis complicated by ascites, portal hypertension, GAVE, esophageal and duodenal varices, and hepatic encephalopathy presenting to [facility] and transferred to [facility] after being found to have hgb of 3.3 sp 4units, to 6.4 and ascites, without overt signs of bleeding. Of note, he recently was admitted to [facility] in April for AoC anemia and underwent IR directed gastroduodenal varices coil embolization on 05/10/2024. S/p IR peritoneal drain placed draining significant amount of ascites. He underwent inpatient transplant evaluation and also seen in the clinic with no absolute contraindications noted and with remaining transplant work up including cardiology/ischemic cardiac testing, pulmonary evaluation, and colonoscopy. I hope that sodium normalizes allowing patient a greater chance to tolerate prep for a colonoscopy and eval for bleeding with dual endoscopy. RECOMMENDATIONS: Decompensated EtoH Liver Cirrhosis 2/2 ascites, EV/IGV and duodenal varices sp embolization, PHG, GAVE, HE Electrolyte derangements Stage 1 GRACIELA on CKD (increasing Cr), improved Child's Wray 10C Meld 3.0 Score 30 AUD in remission, last drink 01/2024 Infectious w/u : Bcx NGTD, UA/Ucx negt, CXR neg for consolidation, RVP negative, pending DiagnosticParacentesis (please send for CBC w/ diff, total protein, albumin, culture) Will need Nuc Med Cardiac study, but likely needs higher hgb (likely 7) Will need endoscopic evaluation when stabilized and hgb closer to 129 and able to tolerate prep Ok to resume diet today and will restart CLD Monday night and into Monday, and reprep Monday evening for eval Nephrology eval for hyponatremia, pending reccs. Ascites/peripheral edema - Hold diuretics at this time due to hyponatremia - Obtain dx and therapeutic paracentesis Cholestyramine for pruritus Monitor for GI Bleed given decreasing hgb History of HE - titrate lactulose to goal 3-5 loose stools per day (retention enema if unable to tolerate PO) - rifaximin 550 mg BID Daily MELD labs while admitted (CBC, CMP, INR) dvt ppx Reviewed Echo with bubble study Ok to resume diet with fluid restriction Diet recommendations when able - 2 g Na restrictions - 1.5 g/kg/day protein - 25-40 kcal/kg/day energy requirement - RDN assistance to optimize nutrition Exercise - PT/OT while admitted - OOB in Chair - Ambulate QID - at discharge recommend 30 mins of aerobic activity per day + 20 mins strength training X 2 days/week Discussed with primary and Nephrology teams. I discussed the case with my attending, Dr. Ortega. * Darcie Hernandez MD - 08/22/2024 3:23 PM EST Images from the original note were not included. [facility] B646/B INTERVAL HISTORY: Overnight, no acute events. This morning, patient was seen and examined at bedside. Patient was sleeping but arousable on verbal command. He reported feeling weak and sleepy. Objective Physical Exam Most Recent Vital Signs: BP: 137 mmHg/76 mmHg (08/22/24 1424) Pulse: 69 (08/22/24 1424) Resp: 16 (08/22/24 1424) Temp: 36.56 C (08/22/24 1424) Temp Summary: Temp Min: 36.3 C (97.4 F) Max: 36.9 C (98.4 F) SpO2: 100 % (08/22/24 1424) O2 flow rate: Supplemental O2 Delivery: Room Air, None (08/22/24 142) General: Patient in no apparent distress HEENT: normocephalic, atraumatic Heart: regular rate and rhythm; S1 and S2 present; no murmurs, rubs or gallops. Pulmonary: Lungs clear to auscultation bilaterally; no wheezes, rhonchi or crackles. Abdomen: Soft, non-tender, diffusely distended. Normal bowel sounds and no rebound or guarding. Extremities: No pitting edema present at lower extremity bilaterally Skin: [place], warm, no wounds or lesions present. Neuro: AAOx3. No gross motor or sensory deficits. Psych: Appropriate mood and affect Peripheral Line Lower;Right 20 Gauge (Active) Number of days: 1 Peripheral Line Left;Upper 20 Gauge (Active) Number of days: 1 STUDIES: Encounter Orders Labs and other studies reviewed with pertinent findings noted below: Labs: No results found for this or any previous visit (from the past 6 hours). Imaging: XR CHEST 1 VIEW Final Result EXAM: XR CHEST 1 VIEW - 08/22/2024 8:58 am HISTORY: To r/o cardiopulmonary source of infection TECHNIQUE: Single portable AP view of the chest COMPARISON: None FINDINGS: Catheters/tubes/devices/foreign bodies: None. Low lung volumes with patchy bibasilar atelectasis. No consolidation or effusion. No evidence of pneumothorax. Cardiomediastinal silhouette is within normal limits. Osseous structures are unremarkable. IMPRESSION IMPRESSION: Patchy bibasilar opacities are felt to most likely represent atelectasis given the low lung volumes. If clinical concern persists, recommend PA and lateral chest x-ray which will better characterize the posterior lung bases, otherwise partially obscured using portable technique. Assessment and Plan IMPRESSION : Principal Problem: Symptomatic anemia Active Problems: Alcoholic cirrhosis (HCC) Ascites due to alcoholic cirrhosis (HCC) COPD, mild (HCC) Kidney disease, chronic, stage IV (GFR 15-29 ml/min) (HCC) GRACIELA (acute kidney injury) (HCC) GAVE (gastric antral vascular ectasia) Severe protein-energy malnutrition (HCC) Duodenal varices Other cirrhosis of liver (HCC) Secondary esophageal varices with bleeding (HCC) Alcohol dependence, in remission (HCC) Acute hyperkalemia Resolved Problems: * No resolved hospital problems. * DIFFERENTIAL AND PLAN: Santiago Amador is a 53 year old male with PMHx significant for alcoholic cirrhosis with ascites andesophageal varices and past metabolic encephalopathy w/ weekly paracentesis, history of gastric antral vascular ectasia, COPD, tobacco use disorder who is admitted for symptomatic anemia. Symptomatic anemia 2/2 possible GI bleed? Decompensated EtoH Liver Cirrhosis 2/2 ascites, EV/IGV and duodenal varices sp embolization, PHG, gastric antral vascular ectasia, hepatic encephalopathy GRACIELA on CKD, pre-renal 2/2 blood loss vs hepatorenal Hyperkalemia Hypervolemic Hyponatremia Patient presents from outside hospital for symptomatic anemia. Initial hemoglobin 3.3 at [facility]. Has received 4 units prior to transfer. Currently asymptomatic after transfusions. No pinpoint area of bleeding at this time. Had CT abdomen pelvis done at outside hospital with no concerns from that imaging besides ascites. Has weekly paracentesis. Patient was evaluated in April for possibletips procedure but was deemed not a great medical candidate. - Hepatology consulted; appreciated recs - hemoglobin 6.3 today, 1 unit PRBC given, to follow up post transfusion H/H - urine electrolytes showing sodium less than 20, potassium 26.1 and chloride less than 20 - Infectious workup sent: UA negative, urine culture pending and blood culture negative so far - Diagnostic and therapeutic paracentesis done today on 08/22/2024, 9.1 L ascites fluid drained, CBC with differential, total protein, albumin and culture from ascitic fluid sent, to follow up results - Anemia workup- iron panel, ferritin, LD, haptoglobin, reticulocyte panel - Hepatology recommended nuclear medicine cardiac study and possible endoscopic evaluation when hemoglobin is stable. PeTH pending - Continue [employer] lactulose and cholestyramine. Continue rifaximin 550 mg twice daily - continue pantoprazole IV 40 mg q.12 hours - continue ceftriaxone for ppx - continue octreotide infusion - Hold diuretics at this time due to hyponatremia - Continue JEW[employer] folic acid - Tele - Daily meld labs-CBC, CMP, INR - Echo with bubble study obtained - fluid restriction< 1500 mL - [facility] team consulted for possible upgrade to ICU, awaiting recommendation - Nephrology consulted and awaiting recommendations - Patient quit drinking in January so no need for CIWA protocol at this time. Can monitor for withdrawal symptoms Chronic Problems: ? Tobacco use: Nicotine patch ? Neuropathic pain: Continue JEW[employer] gabapentin ? 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 * Raimundo Ortega MD - 08/22/2024 7:45 AM EST PROGRESS NOTE - Gastroenterology Service [facility] [address] Name: Santiago Amador Date: 08/22/2024 Time: 7:45 AM SUBJECTIVE: No acute events overnight He's feeling tired. Eating breakfast ROS: Negative unless otherwise stated above. OBJECTIVE: Vital Signs Last 24 Hours: Systolic BP: Most Recent Systolic BP Av.5 mmHg Min: 98 mmHg Max: 143 mmHg Temperature: Most Recent Temperature Av.6 C Min: 36.11 C Max: 36.89 C Pulse: Pulse Av Min: 63 Max: 69 Respirations: Resp Av.8 Min: 16 Max: 18 SpO2: SpO2 Av % Min: 95 % Max: 100 % Constitutional: NAD. A&Ox3. CV: Not tachycardiac Chest: equal and bilateral chest rise, no accessory muscle use GI: Soft, NT/ND. BSx4. Extremities: No edema. Neurology: Moves all extremites Last Bowel Movement: 08/21/24 (08/21/24 1004) Stool Description: Medium;Soft;Brown (08/21/24 1004) LABS: Reviewed in [facility]. MELD 3.0: 30 at 08/22/2024 6:01 AM MELD-Na: 29 at 08/22/2024 6:01 AM Calculated from: Serum Creatinine: 2.5 mg/dL at 08/22/2024 6:01 AM Serum Sodium: 124 mmol/L (Using min of 125 mmol/L) at 08/22/2024 6:01 AM Total Bilirubin: 1.7 mg/dL at 08/22/2024 6:01 AM Serum Albumin: 2.6 g/dL at 08/22/2024 6:01 AM INR(ratio): 1.4 at 08/22/2024 6:01 AM Age at listing (hypothetical): 53 years Sex: Male at 08/22/2024 6:01 AM Chemistry Panel: Lab results within last 7 days (see chart for full results) Units 08/22/24 0601 08/21/24 1057 SODIUM mmol/L 124* 127* POTASSIUM mmol/L 5.6* 5.9* CHLORIDE mmol/L 98 99 CO2 mmol/L 18* 20* BUN mg/dL 59* 65* CREATININE mg/dL 2.5* 2.6* Complete Blood Count: Lab results within last 7 days (see chart for full results) Units 08/22/24 0601 08/21/24 1057 WBC K/uL 8.46 8.97 HGB g/dL 6.3* 6.4* PLT K/uL 181 205 Coagulation Studies: Lab results within last 7 days (see chart for full results) Units 08/22/24 0601 08/21/24 1057 INR 1.4* 1.3* Liver Function Panel: Lab results within last 7 days (see chart for full results) Units 08/22/24 0601 08/21/24 1057 Albumin g/dL 2.6* 2.8* Protein g/dL 5.1* 5.5* Bilirubin, Total mg/dL 1.7* 3.5* AST U/L 20 22 ALT U/L 13 14 Alkaline Phosphatase U/L 59 67 IMAGING: Reviewed in Epic. No imaging results in the last 24 hours ASSESSMENT: Santiago Amador is a(n) 53 year old male with past medical history notable for ETOH cirrhosis complicated by ascites, portal hypertension, GAVE, esophageal and duodenal varices, and hepatic encephalopathy presenting to [facility] and transferred to [facility] after being found to have hgb of 3.3 sp 4units, to 6.4 and ascites, without overt signs of bleeding. Of note, he recently was admitted to [facility] in April for AoC anemia and underwent IR directed gastroduodenal varices coil embolization on 05/10/2024. S/p IR peritoneal drain placed draining significant amount of ascites. He underwent inpatient transplant evaluation and also seen in the clinic with no absolute contraindications noted and with remaining transplant work up including cardiology/ischemic cardiac testing, pulmonary evaluation, and colonoscopy. I hope that sodium normalizes allowing patient a greater chance to tolerate prep for a colonoscopy and eval for bleeding with dual endoscopy. RECOMMENDATIONS: Decompensated EtoH Liver Cirrhosis 2/2 ascites, EV/IGV and duodenal varices sp embolization, PHG, GAVE, HE Electrolyte derangements Stage 1 GRACIELA on CKD (increasing Cr), improved Child's Wray 10C Meld 3.0 Score 30 AUD in remission, last drink 01/2024 Infectious w/u : Bcx NGTD, UA/Ucx negt, CXR neg for consolidation, RVP negative, pending DiagnosticParacentesis (please send for CBC w/ diff, total protein, albumin, culture) Will need Nuc Med Cardiac study, but likely needs higher hgb (likely 7) Will need endoscopic evaluation when stabilized and hgb closer to 129 and able to tolerate prep Will trial for prep today and possible scope CLD and will order prep Nephrology eval for hyponatremia Ascites/peripheral edema - Hold diuretics at this time due to hyponatremia - Obtain dx and therapeutic paracentesis Cholestyramine for pruritus Monitor for GI Bleed given decreasing hgb History of HE - titrate lactulose to goal 3-5 loose stools per day (retention enema if unable to tolerate PO) - rifaximin 550 mg BID Daily MELD labs while admitted (CBC, CMP, INR) dvt ppx Reviewed Echo with bubble study Ok to resume diet with fluid restriction Diet recommendations when able - 2 g Na restrictions - 1.5 g/kg/day protein - 25-40 kcal/kg/day energy requirement - RDN assistance to optimize nutrition Exercise - PT/OT while admitted - OOB in Chair - Ambulate QID - at discharge recommend 30 mins of aerobic activity per day + 20 mins strength training X 2 days/week I discussed the case with my attending, Dr. Ortega. Attending Attestation: I have discussed the patient's management with the medical trainee and agree with the note. Please refer to the documented findings and plan of care. The patient's bedside service today consisted of an evaluation. I was present and confirmed the findings of the history and exam. documented in this encounter H&P Notes * Jyoti Santana MD - 08/31/2024 12:16 PM EST PRE-SEDATION ASSESSMENT: Paracentesis Drain Placement,Transvenous Variceal Embolization Level of sedation planned: Moderate Patient's allergies reviewed: Yes H&P Review / Interval Note Documentation: I have reviewed the H&P previously performed, examined the patient today, and there are no new findings. Bleeding from duodenal varices Difficulty with sedation / anesthesia: No Sleep apnea: No History of snoring: No History of difficult intubation: No Decreased ROM neck flexion/extension: No Tracheal deviation: No Decreased ability to open mouth / TMJ: No Loose teeth / dentures / partial: No Congenital deformities / abnormalities: No Dysphagia: No Mallampati Classification: III - soft palate, base of uvula visible ASA Risk Stratification (Select One): ASA 2 - Mild systemic disease, no functional limitations The patient was identified and the procedure verified: Yes Risks, benefits, and alternatives to transvenous variceal embolization were discussed and Santiago would like to proceed under moderate sedation. He understands that he may ultimately need a TIPS or further procedures. * Nery Aguilar MD - 08/28/2024 12:05 PM EST Endoscopy Pre-Procedure Assessment Name: Santiago Amador Date: 08/28/2024 Time: 12:05 PM Procedure(s): Colonoscopy; with Indication(s) of evaluation of GI blood loss or iron- deficiency anemia Upper GI Endoscopy; with Indication(s) of evaluation and management of GI bleeding and/or iron-deficiency anemia Endoscopy Pre-Procedure Assessment: Prior to the procedure, the patient is identified. The patient's history, medications and allergieshave been reviewed. The patient is competent. The risks and benefits of the proposed procedure and the planned sedation have been discussed with the patient. All questions have been answered and informed consent for the procedure has been obtained. Prior to Admission medications Medication Sig Last Dose Discont. Midodrine HCl 5 MG Oral Tablet (Proamatine) Take 1 Tablet by mouth in the morning and 1 Tablet at noon and 1 Tablet in the evening. 08/20/2024 Morning Cholestyramine 4 GM Oral Packet (Questran) Take 1 Packet by mouth in the morning and 1 Packet at noon and 1 Packet in the evening. Take with meals. Unknown Nicotine 14 MG/24HR Transdermal Patch 24 Hour (Nicoderm CQ) One 14 mg patch daily for 2 wks; then one 7 mg patch daily for 2 wks. Remove old patch daily Do not start before August 26, 2024. Unknown Nicotine 21 MG/24HR Transdermal Patch 24 Hour (Nicoderm CQ) One 21 mg patch daily for 6 wks; then one 14 mg patch daily for 2 wks; then one 7 mg patch daily for 2 wks. Remove old patch daily Unknown Nicotine 7 MG/24HR Transdermal Patch 24 Hour (Nicoderm CQ) One 7 mg patch daily for 2 weeks; Removeold patch daily; and then stop. Unknown traZODone HCl 50 MG Oral Tablet (Desyrel) Take 1 Tablet by mouth at bedtime. Unknown hydrOXYzine HCl 10 MG Oral Tablet (Atarax) Take 1 Tablet by mouth every 6 hours as needed for Itching. Unknown Spironolactone 50 MG Oral Tablet (Aldactone) Take 2 Tablets by mouth in the morning. 08/20/2024 Morning Folic Acid 1 MG Oral Tablet Take 5 Tablets by mouth in the morning. 08/20/2024 Morning Constulose 10 GM/15ML Oral Solution Take 30 mL by mouth in the morning and 30 mL before bedtime. For 3 BM's per day. Unknown Fluticasone Furoate 100 MCG/ACT Inhalation Aerosol Powder Breath Activated (ARNUITY ellipta) Inhale1 Puff by mouth in the morning. 08/20/2024 Morning Gabapentin 300 MG Oral Capsule (Neurontin) Take 1 Capsule by mouth in the morning and 1 Capsule at noon and 1 Capsule before bedtime. 08/20/2024 Bedtime Pantoprazole Sodium 40 MG Oral Tablet Delayed Release (Protonix) Take 1 Tablet by mouth in the morning and 1 Tablet in the evening. Unknown Torsemide 20 MG Oral Tablet (Demadex) Take 2 Tablets by mouth in the morning and 2 Tablets before bedtime. 08/20/2024 Morning Albumin Human 25 % Intravenous Solution Administer 50 mL intravenously once for 1 dose. Review of patient's allergies indicates: Allergen Reactions Penicillins Unknown BP 116/69 | Pulse 62 | Temp 36 C (96.8 F) (Tympanic) | Resp 13 | Ht 1.651 m (5' 5") | Wt 91.6 kg (202 lb) | SpO2 100% | BMI 33.61 kg/m | BSA 2.05 m Physical Exam: Mental Status Examination: alert and oriented. Airway Examination: normal oropharyngeal airway and neck mobility. Respiratory Examination: clear to auscultation. CV Examination: normal. Abdomen: negative This patient has undergone a preprocedural evaluation. A determination has been made to proceed with the planned procedure under [facility] [place] procedural guidelines and the [facility] Non-Emergent, Elective Medical Services and Treatment Recommendations (published on 11-05-19). The community and hospital prevalence of COVID-19 has been discussed as well as this patient's specific risks associated with SARS-CoV-19 infection. Based upon the clinical acuity and patient-specific care considerations, this procedure is deemed a Tier II - Intermediate acuity treatment or service with either progression or the threat of progressive disease related to the delay in treatment. Not providing the service has the potential for increasing morbidity or mortality. After reviewing the risks and benefits, the patient is deemed in satisfactory condition to undergo the procedure. The anesthesia plan is to use monitored anesthesia care (MAC). Nery Aguilar MD 08/28/2024 * John Dean DO - 08/21/2024 11:41 AM EST Images from the original note were not included. GENERAL HISTORY AND PHYSICAL EXAMINATION - HOSPITAL MEDICINE [address] [address] Name: Santiago Amador [place] [facility] [place] Date: 08/21/2024 Time: 12:26 PM Date of Admission: 08/21/2024 Presenting Problem: Symptomatic anemia HPI: Patient is a 53 year old male with PMHx significant for alcoholic cirrhosis with ascites and esophageal varices and past metabolic encephalopathy w/ weekly paracentesis, history of gastric antral vascular ectasia, COPD, tobacco use disorder that presented from [facility] via EMS with complains of symptomatic anemia. Patient states he has been feeling weak since about [place] but did to doctors because of the. With a past day or so became extremely dizzy lightheaded weak he eventually went to [facility]. Found to have hemoglobin 3.3. Patient denies bleeding of any including hematochezia, hemoptysis, hematuria, melena, hematemesis. Currently patient is no symptoms. Patient denies any associated chest pain, palpitations, dyspnea, cough, fevers, chills, rigors, nausea, vomitting, diarrhea, constipation, melena, hematochezia, urinary complaints, lightheadedness, headaches, vision changes, and focal neurologic defecits. OSH Course: Transfer from [facility]. Chest xray normal. CT A/P showed ascites but no other significant findings. Infectious workup at outside hospital negative. Received 3 units PRBCs at outside hospitaland 1 unit and route with EMS. On arrival to [facility], hemodynamically stable. Patient wants to be FULL CODE at this time. Wants his sister Manuela to make decisions for him in the setting that he is not able to make decisions for himself. Lives with roommate. At baseline ambulates without. Reports tobacco use; smoked 2 ppd in past, but down 3 cigarettes per day now. Reports prior alcohol abuse or illicit substance use. EGD Apr 2024 Subjective PAST MEDICAL HISTORY: Past Medical History: Diagnosis Date Alcoholic cirrhosis (HCC) 12/19/2023 Alcoholism (HCC) Ascites due to alcoholic cirrhosis (HCC) 12/19/2023 COPD, mild (HCC) 12/19/2023 Current smoker Family history of colon cancer paternal grandfather PAST SURGICAL HISTORY: Past Surgical History: Procedure Laterality Date IR VENOUS INTERVENTION 05/10/2024 REMOVAL OF TONSILS, UNDER AGE 14 FAMILY HISTORY: non-contributory Family History Problem Relation Name Age of Onset Stroke Mother Hypertension Mother Diabetes Mother No Known Problems Sister Manuela No Known Problems Sister Alba Colon cancer Grandfather (Paternal) SOCIAL HISTORY: Social History Tobacco Use Smoking status: Every Day Current packs/day: 0.50 Average packs/day: 1 pack/day for 34.1 years (32.5 ttl pk-yrs) Types: Cigarettes Start date: 1990 Smokeless tobacco: Never Vaping Use Vaping status: Never Used Substance Use Topics Alcohol use: Not Currently Comment: last drink 4 months ago Drug use: Not Currently Types: Marijuana PRIOR TO ADMISSION MEDS: Current Outpatient Medications Medication Instructions Cholestyramine (QUESTRAN) 4 g, Oral, WITH MEALS Constulose 10 GM/15ML Oral Solution Take 30 mL by mouth in the morning and 30 mL before bedtime. For 3 BM's per day. Fluticasone Furoate 100 MCG/ACT Inhalation Aerosol Powder Breath Activated (ARNUITY ellipta) 1 Puff, Inhalation, Daily(AM) folic acid 5 mg, Oral, Daily(AM) Gabapentin (NEURONTIN) 300 mg, Oral, TID(AM/NOON/HS) hydrOXYzine (ATARAX) 10 mg, Oral, Q6H PRN midodrine (PROAMATINE) 5 mg, Oral, TID 06;12;18 [START ON 08/26/2024] Nicotine 14 MG/24HR Transdermal Patch 24 Hour (Nicoderm CQ) One 14 mg patch daily for 2 wks; then one 7 mg patch daily for 2 wks. Remove old patch daily Nicotine 21 MG/24HR Transdermal Patch 24 Hour (Nicoderm CQ) One 21 mg patch daily for 6 wks; then one 14 mg patch daily for 2 wks; then one 7 mg patch daily for 2 wks. Remove old patch daily Nicotine 7 MG/24HR Transdermal Patch 24 Hour (Nicoderm CQ) One 7 mg patch daily for 2 weeks; Removeold patch daily; and then stop. pantoprazole (PROTONIX) 40 mg, Oral, BID (0700,1900) Spironolactone (ALDACTONE) 100 mg, Daily(AM) Torsemide (DEMADEX) 40 mg, Oral, BID (.AM/PM) traZODone (DESYREL) 50 mg, Oral, HS ALLERGIES: Penicillins Review of Systems: All systems were reviewed and documented in the HPI, otherwise negative. Objective CONSTITUTIONAL DATA / OBJECTIVE: Vital Signs (Most Recent): Blood Pressure: 134/66 mmHg Last 12H: Most Recent Systolic BP Av.5 mmHg Min: 98 mmHg Max: 141 mmHg Pulse: 64 Last 12H: Pulse Av Min: 64 Max: 64 Temperature: 36.1 C (97 F) Last 12H: Most Recent Temperature Av.11 C Min: 36.11 C Max: 36.11 C Respiratory Rate: 16 O2 Saturation: 99 % Vital Signs (Last 24 Hours): Pulse Av Min: 64 Max: 64 No data recorded Most Recent Systolic BP Av.5 mmHg Min: 98 mmHg Max: 141 mmHg Most Recent Diastolic BP Av.5 mmHg Min: 42 mmHg Max: 81 mmHg Resp Av Min: 16 Max: 16 Most Recent Temperature Av.11 C Min: 36.11 C Max: 36.11 C SpO2 Av % Min: 99 % Max: 99 % Intake & Output Summary (Last 24 hours): No intake or output data in the 24 hours ending 08/21/24 1226 Height & Weight: Weight change: There is no height or weight on file to calculate BMI. Physical Examination: General: Patient in no apparent distress HEENT: normocephalic, atraumatic Heart: regular rate and rhythm; S1 and S2 present; no murmurs, rubs or gallops. Pulmonary: Lungs clear to auscultation bilaterally; no wheezes, rhonchi or crackles. Abdomen: Soft, non-tender, diffusely distended. Normal bowel sounds and no rebound or guarding. MSK: Patient able to ambulate; Gross motor function intact Extremities: No pitting edema present at lower extremity bilaterally Skin: [place], warm, no wounds or lesions present. Neuro: AAOx3. No gross motor or sensory deficits. Psych: Appropriate mood and affect Peripheral Line Right;Upper 18 Gauge (Active) Number of days: 0 Peripheral Line Lower;Right 20 Gauge (Active) Number of days: 0 Peripheral Line Left;Upper 20 Gauge (Active) Number of days: 0 Laboratory Values: reviewed. -- Brief labs below include the 7 most recent results over the past week. Blood Gas: No results in the last 7 days - inpatent use only Chemistry Panel: Lab results within last 7 days (see chart for full results) Units 08/21/24 1057 SODIUM mmol/L 127* POTASSIUM mmol/L 5.9* CHLORIDE mmol/L 99 CO2 mmol/L 20* EGFR mL/min 28* BUN mg/dL 65* CREATININE mg/dL 2.6* GLUCOSE mg/dL 102 CALCIUM mg/dL 8.1* Magnesium mg/dL 2.9* Phosphorus mg/dL 4.5 ANION GAP mmol/L 8 Complete Blood Count: Lab results within last 7 days (see chart for full results) Units 08/21/24 1057 WBC K/uL 8.97 HGB g/dL 6.4* HCT % 21.0* PLT K/uL 205 MCV fL 91.3 Cardiac Studies: No results in the last 7 days - inpatent use only Coagulation Studies: Lab results within last 7 days (see chart for full results) Units 08/21/24 1057 Prothrombin Time seconds 16.7* INR 1.3* Liver Function Panel: Lab results within last 7 days (see chart for full results) Units 08/21/24 1057 Albumin g/dL 2.8* Protein g/dL 5.5* Bilirubin, Total mg/dL 3.5* AST U/L 22 ALT U/L 14 Alkaline Phosphatase U/L 67 MELD 3.0: 30 at 08/21/2024 10:57 AM Calculated from: Serum Creatinine: 2.6 mg/dL at 08/21/2024 10:57 AM Serum Sodium: 127 mmol/L at 08/21/2024 10:57 AM Total Bilirubin: 3.5 mg/dL at 08/21/2024 10:57 AM Serum Albumin: 2.8 g/dL at 08/21/2024 10:57 AM INR(ratio): 1.3 at 08/21/2024 10:57 AM Age at listing (hypothetical): 53 years Sex: Male at 08/21/2024 10:57 AM Infectious Studies: No results in the last 7 days - inpatent use only Cultures: reviewed. No results in the last 7 days - inpatent use only Recent Cultures (2 Weeks) No lab values to display. Radiographic Studies: reviewed. No imaging results in the last 72 hours Assessment & Plan Assessment and Plan: Principal Problem: Symptomatic anemia (POA: Unknown) Active Problems: Alcoholic cirrhosis (HCC) (POA: Yes) Ascites due to alcoholic cirrhosis (HCC) (POA: Yes) COPD, mild (HCC) (POA: Yes) Kidney disease, chronic, stage IV (GFR 15-29 ml/min) (HCC) (POA: Yes) Overview: Per CKD protocol GRACIELA (acute kidney injury) (HCC) (POA: Yes) GAVE (gastric antral vascular ectasia) (POA: Yes) Severe protein-energy malnutrition (HCC) (POA: Yes) Duodenal varices (POA: Yes) Other cirrhosis of liver (HCC) (POA: Yes) Secondary esophageal varices with bleeding (HCC) (POA: Yes) Alcohol dependence, in remission (HCC) (POA: Yes) Acute hyperkalemia (POA: Unknown) POA = Present On Admission Santiago Amador is a 53 year old male with PMHx significant for alcoholic cirrhosis with ascites andesophageal varices and past metabolic encephalopathy w/ weekly paracentesis, history of gastric antral vascular ectasia, COPD, tobacco use disorder who is admitted for symptomatic anemia. Symptomatic anemia 2/2 possible GI bleed? History of alcoholic cirrhosis with ascites (MELD 30) History of duodenal varices History of gastric antral vascular ectasia GRACIELA on CKD, pre-renal 2/2 blood loss vs hepatorenal Hyperkalemia on OSH labs Patient presents from outside hospital for symptomatic anemia. Initial hemoglobin 3.3 at [facility]. Has received 4 units prior to transfer. Currently asymptomatic after transfusions. No pinpoint area of bleeding at this time. Had CT abdomen pelvis done at outside hospital with no concerns from that imaging besides ascites. Has weekly pairs and just had 1 for 10 L 2 days ago; as far as we know, paracentesis was therapeutic and there were no studies done at that time. Patient does have history of duodenal varices but nothing concerning for variceal bleed at this time so will hold off on octreotide and wait to hear from Hepatology on further recommendations. Patient was evaluated in April for possible tips procedure but was deemed not a great medical candidate. Hepatology consult; appreciate recs Repeat CMP, CBC, Mag, phos; replete as necessary and treat hyperkalemia if present Spoke to Hepatology--> hold off on further transfusions for now Anemia workup- iron panel, ferritin, LD, haptoglobin, reticulocyte panel Repeat infectious workup Continue [employer] lactulose and cholestyramine Hold [employer] torsemide, Aldactone, midodrine Protonix started at OSH; will continue PPI BID Continue [employer] folic acid Tele Patient quit drinking in January so no need for CIWA protocol at this time. Can monitor for withdrawalsymptoms. Chronic Problems: Tobacco use: Nicotine patch Neuropathic pain: Continue [employer]SULT[employer] gabapentin COPD: Continue [employer]RY [employer]SULTANT Arnuity Ellipta Misc: Diet: NPO except meds Bowel Regimen: J[employer] lactulose Last Bowel Movement: 08/21/24 (08/21/24 1004) Stool Description: Medium;Soft;Brown (08/21/24 1004) Sleep: No sleep protocol ordered Z[place]ata: Not indicated at this time PT/OT: N/A GI prophylaxis: IV PPI VTE Prophylaxis: Hold Code Status: FULL Anticipated Discharge: TBD LINES / DRAINS / TUBES: LINES ALL Duration Peripheral Line Left;Upper 20 Gauge <1 day Peripheral Line Lower;Right 20 Gauge <1 day Peripheral Line Right;Upper 18 Gauge <1 day List of services consulted/following: HEPATOLOGY CONSULT IP Patient discussed with attending physician, Hussein Dodd. John Dean, DO Resident Physician This chart was completed in part utilizing Signal Speech Voice Recognition Software. Grammatical errors, random word insertions, pronoun errors, and incomplete sentences are an occasional consequence of this system due to software limitations, ambient noise, and hardware issues. Any formal questions or concerns about the content, text, or information contained within the body of this dictation should be directly addressed to the provider for clarification. Cosigned by Hussein Dodd MD at 08/22/2024 7:59 AM EST Associated attestation - Hussein Dodd MD - 08/22/2024 7:59 AM EST I saw and evaluated the patient 08/21/2024. I have reviewed the resident/fellow physician note and agree. I spent a total of 80 minutes coordinating, documenting, and providing care for this patient excluding time spent in the performance of separately billed services or time spent by another provider/QHP. documented in this encounter Procedure Notes * Sang Vincent DO - 08/31/2024 11:47 PM EST PROCEDURE NOTE - Interventional Radiology [facility] [place] [address] Name: Santiago Amador [place] [facility] [place] Date/Time: 09/01/2024 11:47 PM PROCEDURE: 1) US-guided paracentesis 2) Anterograde variceal embolization OPERATORS: Jyoti Santana MD; Sang Vincent DO ANESTHESIA: local conscious sedation COMPLICATIONS: none SPECIMEN: 7500 mL serous fluid drained and discarded. ESTIMATED BLOOD LOSS: less than 100 ml FINDINGS: - Large volume ascites on survey ultrasound images. Minimal residual fluid following drainage catheter placement and removal. - Patent recanalized umbilical vein. - Coil and STS embolization of a prominent gastroesophageal varices. - Coil and GelFoam embolization of gastroduodenal varices. - Unable to further interrogate residual duodenal varices. - Woggle closure device deployed at the midline abdominal access site. PLAN : - Patient to return to floor under care of primary service. - Patient must lay flat for 2 hours post-procedure. - Closure device will be removed 09/01. - Continue to monitor H&H. Transfuse as needed. - Continue current transplant work-up and medical optimization. - Will call patient in 1 week for follow-up. - Patient can be set-up for outpatient paracentesis as needed. Cosigned by Jyoti Santana MD at 09/02/2024 6:41 AM EST Associated attestation - Jyoti Santana MD - 09/02/2024 6:41 AM EST I saw and evaluated the patient on the date of service. I have reviewed the resident/fellow physician note and agree. A procedure was performed. I was present for entire procedure. I agree with the resident/fellow physician note. * Deborah Parsons DO - 08/29/2024 3:00 PM EST [facility] [address] [facility] [id number] CARDIAC INDUSTRIAL PHARMACIST BRIEF PROCEDURE NOTE Name: Santiago Amador Date: 08/29/2024 Time: 3:00 PM Location: CARDIAC LABS [facility] [place] of Procedure: 08/29/2024 Pre-op Diagnosis: pre-transplant evaluation Post-op Diagnosis: pre-transplant evaluation Procedure: Right heart cath Social Worker Palliative Care: Dr. Epps Senior Linux Systems Administrator(s): Dr. Parsons Anesthesia: Monitored local anesthesia with sedation Additional Findings: Right Heart Catheterization RA = 4 mmHg [0-8 mmHg] RV = 27/0 mmHg [20-30/0-8 mmHg] PA = 21/0 (10) mmHg [20-30/8-15 mmHg] PCWP = 6 mmHg [8-12 mmHg] Pulmonary vascular resistant = 0.37 Wood Unit (29.9 dynes/sec/cm-5) (mPAP - PCWP)/CO Assumed CO (Maryam) = 10.77 L/min | CI = 5.42 L/min/m2 Saturations: 100% arterial in aorta and 76% venous in PA and 78% venous in RA Access: Right AC vein Hemostasis: Manual Pressure Complications: none Condition of patient: Good Post Sedation Evaluation: Cardiovascular status: acceptable, BP returned to baseline, and hemodynamically stable Level of consciousness: awake and alert Airway patency: patent Distress - NAD Hydration status - well hydrated Nausea/vomiting - not present Recommendations: Management per primary team Cosigned by Rebeca Epps MD at 08/29/2024 3:16 PM EST Associated attestation - Rebeca Epps MD - 08/29/2024 3:16 PM EST A procedure was performed. I was present for entire procedure. I agree with the resident/fellow physician note. * Lolita Coyne MD - 08/28/2024 12:30 PM ESTAssociated Order(s): COLONOSCOPY [facility] Patient Name: Santiago Amador Procedure Date: 08/28/2024 12:30 PM Date of : 1970 Admit Type: Inpatient Note Status: Finalized Date of : 1970 Admit Type: Inpatient Age: 53 Room: Endo - Room 4 Gender: Male Note Status: Finalized Procedure: Colonoscopy Indications: Iron deficiency anemia Providers: Nery Aguilar MD (Doctor) Referring MD: Radha Palacio, Matthew Munson MD Medicines: General Anesthesia Complications: No immediate complications. Procedure: Pre-Anesthesia Assessment: - Prior to the procedure, a History and Physical was performed, and patient medications and allergies were reviewed. The patient is competent. The risks and benefits of the procedure and the sedation options and risks were discussed with the patient. All questions were answered and informed consent was obtained. Patient identification and proposed procedure were verified by the physician, the nurse, the anesthesiologist, the club waiter/waitress and the cable technician in the pre-procedure area in the procedure room. Mental Status Examination: alert and oriented. Airway Examination: normal oropharyngeal airway and neck mobility. Respiratory Examination: clear to auscultation. CV Examination: normal. After reviewing the risks and benefits, the patient was deemed in satisfactory condition to undergo the procedure. The anesthesia plan was to use monitored anesthesia care (MAC). Immediately prior to administration of medications, the patient was re-assessed for adequacy to receive sedatives. The heart rate, respiratory rate, oxygen saturations, blood pressure, adequacy of pulmonary ventilation, and response to care were monitored throughout the procedure. The physical status of the patient was re-assessed after the procedure. After I obtained informed consent, the scope was passed under direct vision. All instruments were visually inspected immediately before and after removal from the patient to ensure they are fully intact. Throughout the procedure, the patient's blood pressure, pulse, and oxygen saturations were monitored continuously. The PCF-H180J Colonoscope([id number]) was introduced through the anus with the intention of advancing to the cecum. The scope was advanced to the descending colon before the procedure was aborted. Medications were given. The colonoscopy was aborted due to poor bowel prep. The patient tolerated the procedure well. The quality of the bowel preparation was poor. Findings & Specimens: The perianal exam findings include internal hemorrhoids (Grade I). A large amount of stool was found in the entire colon, precluding visualization. Impression: - The procedure was aborted due to poor bowel prep. - Preparation of the colon was poor. - Internal hemorrhoids (Grade I) found on perianal exam. - Stool in the entire examined colon. - No specimens collected. - All instruments are visually inspected immediately before and after removal from the patient to ensure they are fully intact. Recommendation: - Return patient to hospital [facility] for ongoing care. - Repeat colonoscopy at the next available appointment because the bowel preparation was suboptimal. - Additional recommendations as per hepatology service. Nery Aguilar MD 08/28/2024 12:58:51 PM This report has been signed electronically. Estimated Blood Loss: Estimated blood loss: none. Lolita Caceres MD - 08/28/2024 12:00 PM ESTAssociated Order(s): UPPER GI ENDOSCOPY [facility] Patient Name: Santiago Amador Procedure Date: 08/28/2024 12:00 PM Date of : 1970 Admit Type: Inpatient Note Status: Finalized Date of : 1970 Admit Type: Inpatient Age: 53 Room: Endo - Room 4 Gender: Male Note Status: Finalized Procedure: Upper GI endoscopy Indications: Iron deficiency anemia, known gastroduodenal varices Providers: Nery Aguilar MD (Doctor), Salma Wisdom MD (Fellow) Referring MD: Radha Palacio, Matthew Munson MD Medicines: General Anesthesia Complications: No immediate complications. Procedure: Pre-Anesthesia Assessment: - Prior to the procedure, a History and Physical was performed, and patient medications and allergies were reviewed. The patient is competent. The risks and benefits of the procedure and the sedation options and risks were discussed with the patient. All questions were answered and informed consent was obtained. Patient identification and proposed procedure were verified by the physician, the nurse, the anesthesiologist, the club waiter/waitress and the cable technician in the pre-procedure area in the procedure room. Mental Status Examination: alert and oriented. Airway Examination: normal oropharyngeal airway and neck mobility. Respiratory Examination: clear to auscultation. CV Examination: normal. After reviewing the risks and benefits, the patient was deemed in satisfactory condition to undergo the procedure. The anesthesia plan was to use monitored anesthesia care (MAC). Immediately prior to administration of medications, the patient was re-assessed for adequacy to receive sedatives. The heart rate, respiratory rate, oxygen saturations, blood pressure, adequacy of pulmonary ventilation, and response to care were monitored throughout the procedure. The physical status of the patient was re-assessed after the procedure. - The supervising physician was present for the entire procedure from scope insertion until scope withdrawal. After obtaining informed consent, the endoscope was passed under direct vision. All instruments were visually inspected immediately before and after removal from the patient to ensure they are fully intact. Throughout the procedure, the patient's blood pressure, pulse, and oxygen saturations were monitored continuously. The GIF H180J Endoscope([id number]) was introduced through the mouth, and advanced to the second part of duodenum. The upper GI endoscopy was accomplished without difficulty. The patient tolerated the procedure well. Findings & Specimens: One column of grade I, small (< 5 mm) varices with no bleeding and no stigmata of recent bleeding were found in the lower third of the esophagus. No red nia signs were present. A 3 cm hiatal hernia was present. A large amount of food (residue) was found in the gastric fundus and in the gastric body. Severe portal hypertensive gastropathy was found in the entire examined stomach. Old blood was found in the duodenal bulb without evidence of active bleeding. Large (> 5 mm) varices were found in the duodenal bulb. Diffuse moderately erythematous mucosa was found in the duodenal bulb and in the second portion of the duodenum. Impression: - Grade I and small (< 5 mm) esophageal varices with no bleeding and no stigmata of recent bleeding. - 3 cm hiatal hernia. - A large amount of food (residue) in the stomach. - Portal hypertensive gastropathy. - Blood in the duodenal bulb. 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 - Erythematous duodenopathy. - No specimens collected. - All instruments are visually inspected immediately before and after removal from the patient to ensure they are fully intact. Recommendation: - Recommend IR consult for persistent duodenal varices which are the likely source of chronic blood loss. - Perform a colonoscopy today. Nery Aguilar MD 08/28/2024 1:07:20 PM This report has been signed electronically. Salma Wisdom MD Estimated Blood Loss: Estimated blood loss: none. * Monse Méndez MD - 08/26/2024 4:21 PM ESTAssociated Order(s): Paracentesis Post-Procedure Diagnose(s): Other ascites PROCEDURE [place] [facility] [place] [address] Name: Santiago Amador [place] [facility] [place] Date: 08/26/2024 Time: 4:21 PM Paracentesis Procedure Date/Time : 08/26/2024 4:21 PM Performed by: Monse Méndez MD Authorized by: Monse Méndez MD [place] Protocol: Verbal consent obtained?: Yes Written consent obtained?: Yes Consent given by: Patient Patient states understanding of procedure being performed: Yes Patient's understanding of procedure matches verbalized consent: Yes Procedure consent matches procedure scheduled: Yes Site marked: Yes Verify correct position: Yes Patient identity confirmed: Verbally with patient Other healthcare professional(s) verbalize(s) agreement with timeout: Yes Time out: Immediately prior to the procedure a time out was called A time out verifies correct patient, procedure, equipment, support team member and site/side marked as required. Anticoagulation/Anti-platelet Therapy: Risks discussed: Bleeding, bowel perforation, pain and infection Indications: Initial or subsequent procedure: Subsequent Procedure purpose: Therapeutic Indications: abdominal discomfort secondary to ascites Anesthesia: Local anesthesia used?: Yes Local anesthetic: Lidocaine 1% without epinephrine Anesthetic total (ml): 8 Sedation: Patient sedated: No Procedure details: Preparation: Patient was prepped and draped in usual sterile fashion Needle gauge: 18 Ultrasound guided: Yes Puncture site: Right lower quadrant Fluid removed (ml): 09619 Fluid appearance: Cloudy (yellow) Dressing: Pressure dressing and 4x4 sterile gauze Patient tolerance: Patient tolerated the procedure well with no immediate complications Attestation: Attestation: Attending present for ramirez portions of procedure and immediately available Name of doctor present for entire procedure: Dr. Mao Ely Cosigned by Mao Ely MD at 08/27/2024 8:37 AM EST Associated attestation - Mao Ely MD - 08/27/2024 8:37 AM EST Images from the original note were not included. A procedure was performed. I was present for entire procedure. I agree with the resident/fellow physician note. We explained to the patient the risk including bowel perforation, abdominal wall bleeding, intra-abdominal bleeding, infection, pain, fluid leak patient agreed to proceed and signed consent. Time-outwas performed with Maia Martin RN. Approximately 10 L was obtained yellow slightly cloudy fluid. After the drainage is minimum fluid left, no bleeding, or fluid leak site is clean. Patient tolerated the procedure well with no immediate complications. * Mao Ely MD - 08/22/2024 3:41 PM ESTAssociated Order(s): Paracentesis Post-Procedure Diagnose(s): Ascites due to alcoholic cirrhosis (HCC) Images from the original note were not included. PROCEDURE NOTE [address] [id number] Name: Santiago Amador [place] [facility] [id number] Date: 08/22/2024 Time: 3:41 PM Paracentesis Procedure Date/Time : 08/22/2024 2:10 PM Performed by: Mao Ely MD Authorized by: Mao Ely MD [place] Protocol: Verbal consent obtained?: Yes Written consent obtained?: Yes Consent given by: Patient Patient states understanding of procedure being performed: Yes Patient's understanding of procedure matches verbalized consent: Yes Procedure consent matches procedure scheduled: Yes Site marked: Yes Verify correct position: Yes Required items: Required blood products, implants, devices and special equipment available Patient identity confirmed: Verbally with patient and arm band Verbal confirmation: MRN, name and date of Other healthcare professional(s) verbalize(s) agreement with timeout: Yes Time out: Immediately prior to the procedure a time out was called A time out verifies correct patient, procedure, equipment, support team member and site/side marked as required. Anticoagulation/Anti-platelet Therapy: Risks discussed: Bleeding, bowel perforation, infection and pain Indications: Initial or subsequent procedure: Subsequent Procedure purpose: Diagnostic and therapeutic Indications: abdominal discomfort secondary to ascites, secondary bacterial peritonitis and suspected peritonitis Anesthesia: Local anesthesia used?: Yes Local anesthetic: Lidocaine 1% without epinephrine Anesthetic total (ml): 5 Sedation: Patient sedated: No Procedure details: Preparation: Patient was prepped and draped in usual sterile fashion Needle gauge: 18 Ultrasound guided: Yes Puncture site: Right lower quadrant Fluid removed (ml): 9000 Fluid appearance: Cloudy (Yellow) Dressinx4 sterile gauze and pressure dressing Patient tolerance: Patient tolerated the procedure well with no immediate complications Attestation: Attestation: I personally performed the procedure myself * Lenin Roberts MD - 08/21/2024 10:44 AM ESTAssociated Order(s): EKG REASON FOR STUDY: Notify provider if obtaining EKG;Chest pain CONCLUSIONS: Normal sinus rhythm Low voltage QRS, consider pulmonary disease, pericardial effusion, or normal variant Borderline ECG No previous ECGs available Ventricular Rate: 66 Atrial Rate: 66 RI Interval: 172 QRS Duration: 102 QT/QTc: 414/434 ms P-R-T [place]: 30 : 64 : 47 degrees documented in this encounter Consult Notes * Jyoti Santana MD - 08/30/2024 8:49 AM EST Images from the original note were not included. INTERVENTIONAL RADIOLOGY - CONSULT [place] [facility] [place] [address] CONSULT QUESTION Request for TIPS Consult from Dr. 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 Brief summary of hospital course: S/p 7u pRBC, most recent 08/27/24 with Hgb 6.4 -> 8.0 He was seen by nephrology for GRACIELA on CKD Echo 08/21/24: enlarged RA, preserved RV function, LVEF 55-59%, small right to left shunt at intrapulmonary level EGD 08/28/24 with grade I small esophageal varices w/o evidence of bleeding, GACE, large duodenal varices with blood in duodenal bulb Colonoscopy 08/28/24 limited by poor prep RHC 08/19/24: wnl Of note he is being evaluated for transplant. He was seen in his hospital room. He is eager to have a procedure done, he states he needs to get home. ROS: - fevers/chills + abdominal distention - yellowing of skin or eyes - change in bowel habits PAST MEDICAL HISTORY Past Medical History: Diagnosis Date Alcoholic cirrhosis (HCC) 12/19/2023 Alcoholism (HCC) Ascites due to alcoholic cirrhosis (HCC) 12/19/2023 COPD, mild (HCC) 12/19/2023 Current smoker Family history of colon cancer paternal grandfather PAST SURGICAL HISTORY Past Surgical History: Procedure Laterality Date IR VENOUS INTERVENTION 05/10/2024 REMOVAL OF TONSILS, UNDER AGE 14 FAMILY HISTORY Family History Problem Relation Name Age of Onset Stroke Mother Hypertension Mother Diabetes Mother No Known Problems Sister Manuela No Known Problems Sister Alba Colon cancer Grandfather (Paternal) SOCIAL HISTORY Social History Socioeconomic History Marital status: Single Spouse name: Not on file Number of children: Not on file Years of education: Not on file Highest education level: Not on file Occupational History Not on file Tobacco Use Smoking status: Every Day Current packs/day: 0.50 Average packs/day: 1 pack/day for 34.1 years (32.5 ttl pk-yrs) Types: Cigarettes Start [...] on file Food Insecurity: No Food Insecurity (08/21/2024) Food Insecurity Do you need food for [...] on file Transportation Needs: No Transportation Needs (08/21/2024) Transportation Needs Do you have trouble getting [...] Not on file Housing Stability: Low Risk (08/21/2024) Housing Stability Do you currently live in a fdc or have no steady place to sleep [...] - for ages0-17 years): Not on file HOME MEDICATIONS Current Facility-Administered Medications: house antacid (Mi-Acid II) oral susp 15 mL, 15 mL, Oral, Q6H PRN, Eddie Alonso CRNP, 15 mL at08/30/24 0536 Baclofen (Lioresal) tab 5 mg, 5 mg, Oral, BID PRN, Darcie Hernandez MD, 5 mg at 08/25/24 1729 Cholestyramine Light (Prevalite) oral powder 4 g, 4 g, Oral, TID (INP ADJ TIME), Blake Dean DO, 4 g at 08/29/24 2338 Gabapentin (Neurontin) cap 300 mg, 300 mg, Oral, TID (INP ADJ TIME), John Dean DO,300 mg at 08/29/242014 check patch placement order, , Does Not Apply, Q8H, Darcie Hernandez MD fluticasone Furoate (ARNUITY ellipta) 100 MCG/ACT inhaler 1 Puff, 1 Puff, Inhalation, Daily(AM), John Dean DO, 1 Puff at 08/29/24 0844 folic acid tab 5 mg, 5 mg, Oral, Daily(AM), John Dean, , 5 mg at 08/29/24 0844 hEParin inj 5,000 Units, 5,000 Units, Subcutaneous, Q8H, John Dean, DO, 5,000 Unitsat 08/30/24 0536 Lactulose (Constulose) oral soln 20 g, 20 g, Oral, BID(AM/PM), John Dean, , 20 g at 08/27/24 195 Nicotine (Nicoderm CQ) 14 MG/24HR patch 1 Patch, 1 Patch, Transdermal, Daily(AM), John Dean DO, 1 Patch at 08/29/24 0845 rifAXIMin (Xifaxan) tab 550 mg, 550 mg, Oral, BID(AM/PM), John Dean, DO, 550 mg at 08/29/242014 sodium chloride 0.9 % flush/inj 3 mL, 3 mL, IV Push, PRN, John Dean DO ALLERGIES Review of patient's allergies indicates: Allergen Reactions Penicillins Unknown PHYSICAL EXAMINATION: Vital Signs : Blood pressure 95/47, pulse 73, temperature 36.7 C (98.1 F), temperature source Tympanic, resp. rate 18, height 1.651 m (5' 5"), weight 93.4 kg (205 lb 14.6 oz), SpO2 93%. General : Alert & oriented. HEENT : Oral mucosa moist, no scleral icterus Chest : Normal respiratory effort Abdomen : Distended Extremities : Warm well perfused, no asterixis. Psych: Normal affect and thought process LAB DATA: Results for orders placed or performed during the hospital encounter of 08/21/24 CBC Result Value Ref Range WBC 8.97 4.00 - 10.80 K/uL RBC 2.30 4.50 - 5.25 M/uL HGB 6.4 (L) 14.0 - 16.8 g/dL HCT 21.0 (L) 40.0 - 48.4 % MCV 91.3 82.0 - 99.5 fL MCH 27.8 27.0 - 34.0 pg MCHC 30.5 32.0 - 36.0 g/dL RDW 17.3 11.5 - 15.5 % PLT 205 140 - 400 K/uL MPV 9.3 6.6 - 11.1 fL nRBCs 0 <=0 /100 WBCs COMPREHENSIVE METABOLIC PANEL Result Value Ref Range BUN 65 (H) 6 - 20 mg/dL CREATININE 2.6 (H) 0.6 - 1.2 mg/dL EGFR 28 (L) >=60 mL/min SODIUM 127 (L) 135 - 146 mmol/L POTASSIUM 5.9 (H) 3.5 - 5.1 mmol/L CHLORIDE 99 98 - 107 mmol/L CO2 20 (L) 22 - 32 mmol/L ANION GAP 8 7 - 15 mmol/L GLUCOSE 102 70 - 120 mg/dL Albumin 2.8 (L) 3.8 - 5.0 g/dL AST 22 10 - 50 U/L Alkaline Phosphatase 67 35 - 130 U/L Bilirubin, Total 3.5 (H) <=1.2 mg/dL CALCIUM 8.1 (L) 8.4 - 10.2 mg/dL Protein 5.5 (L) 6.0 - 8.3 g/dL ALT 14 10 - 50 U/L MAGNESIUM Result Value Ref Range Magnesium 2.9 (H) 1.5 - 2.6 mg/dL PHOSPHORUS Result Value Ref Range Phosphorus 4.5 2.5 - 4.8 mg/dL MRSA SCREEN, PCR Result Value Ref Range MRSA PCR Result Negative Negative PT INR Result Value Ref Range Prothrombin Time 16.7 (H) 11.6 - 15.2 seconds INR 1.3 (H) 0.8 - 1.2 TYPE AND SCREEN Result Value Ref Range ABO A Rh Negative Red Blood Cell Antibody Screen Negative Specimen Expiration Date 08/24/2024 23:59 IRON SCREEN, INCLUDING TIBC Result Value Ref Range Iron 210 (H) 45 - 176 ug/dL Iron Binding Capacity 210 (L) 250 - 425 ug/dL Transferrin Saturation Percent 100 (H) 15 - 55 % FERRITIN Result Value Ref Range Ferritin 78 30 - 400 ng/mL LD Result Value Ref Range LD 153 <=250 U/L HAPTOGLOBIN Result Value Ref Range Haptoglobin 116 30 - 200 mg/dL RETICULOCYTE PANEL Result Value Ref Range Reticulocyte Percent 4.46 (H) 0.80 - 1.90 % Absolute Reticulocyte 100.4 (H) 31.3 - 100.1 K/uL Immature Reticuloctye Fraction 34.3 (H) 2.5 - 20.6 % Reticulocyte Hemoglobin 24.1 (L) 29.7 - 37.4 pg CULTURE, BLOOD Result Value Ref Range Blood Culture Growth No growth CULTURE, BLOOD Result Value Ref Range Blood Culture Growth No growth RESPIRATORY PATHOGEN PANEL, PCR Result Value Ref Range Adenovirus by PCR Negative Negative Coronavirus 229E by PCR Negative Negative Coronavirus HKU1 by PCR Negative Negative Coronavirus NL63 by PCR Negative Negative Coronavirus OC43 by PCR Negative Negative Coronavirus SARS-CoV-2 by PCR Negative Negative Human Metapneumovirus by PCR Negative Negative Rhinovirus/Enterovirus by PCR Negative Negative Influenza A Virus by PCR Negative Negative Influenza B Virus by PCR Negative Negative Parainfluenza Virus 1 by PCR Negative Negative Parainfluenza Virus 2 by PCR Negative Negative Parainfluenza Virus 3 by PCR Negative Negative Parainfluenza Virus 4 by PCR Negative Negative Respiratory Syncytial Virus by PCR Negative Negative Bordetella pertussis by PCR Negative Negative Chlamydia pneumoniae by PCR Negative Negative Mycoplasma pneumoniae by PCR Negative Negative Bordetella parapertussis by PCR Negative Negative URINALYSIS, REFLEX TO CULTURE (CUP ONLY) Result Value Ref Range Urinalysis, Reflex to Culture Specimen Specimen collected and received URINALYSIS, REFLEX TO CULTURE Result Value Ref Range Color, Urine Light Yellow Colorless, Light Yellow, Yellow, Dark Yellow Clarity, Urine Clear Clear Glucose, Urine Negative Negative mg/dL Bilirubin, Urine Negative Negative Ketone, Urine Negative Negative mg/dL Specific [place], Urine 1.014 1.003 - 1.030 Blood, Urine Negative Negative pH, Urine 5.5 5.0 - 7.5 Units Protein, Urine Negative Negative mg/dL Urobilinogen, Urine Normal Normal mg/dL Nitrite, Urine Negative Negative Esterase, Urine Negative Negative RBC, Urine 0-2 0 - 2 /HPF WBC, Urine 0-2 0 - 2 /HPF Bacteria, Urine 0-25 0 - 25 /HPF Culture, Urine LACTATE Result Value Ref Range Lactate 1.7 0.4 - 2.0 mmol/L POTASSIUM, WHOLE BLOOD Result Value Ref Range Potassium 5.9 (H) 3.5 - 5.1 mmol/L POTASSIUM, WHOLE BLOOD Result Value Ref Range Potassium 5.6 (H) 3.5 - 5.1 mmol/L PHOSPHATIDYLETHANOL, BLOOD Result Value Ref Range PEth 16:0/18:1 (POPEth) NEGATIVE <20 ng/mL PEth 16:0/18:2 (PLPEth) NEGATIVE <20 ng/mL PEth Comments SEE BELOW COMPREHENSIVE METABOLIC PANEL Result Value Ref Range BUN 59 (H) 6 - 20 mg/dL CREATININE 2.5 (H) 0.6 - 1.2 mg/dL EGFR 31 (L) >=60 mL/min SODIUM 124 (L) 135 - 146 mmol/L POTASSIUM 5.6 (H) 3.5 - 5.1 mmol/L CHLORIDE 98 98 - 107 mmol/L CO2 18 (L) 22 - 32 mmol/L ANION GAP 8 7 - 15 mmol/L GLUCOSE 105 70 - 120 mg/dL Albumin 2.6 (L) 3.8 - 5.0 g/dL AST 20 10 - 50 U/L Alkaline Phosphatase 59 35 - 130 U/L Bilirubin, Total 1.7 (H) <=1.2 mg/dL CALCIUM 7.5 (L) 8.4 - 10.2 mg/dL Protein 5.1 (L) 6.0 - 8.3 g/dL ALT 13 10 - 50 U/L PT INR Result Value Ref Range Prothrombin Time 16.9 (H) 11.6 - 15.2 seconds INR 1.4 (H) 0.8 - 1.2 MAGNESIUM Result Value Ref Range Magnesium 2.8 (H) 1.5 - 2.6 mg/dL PHOSPHORUS Result Value Ref Range Phosphorus 4.0 2.5 - 4.8 mg/dL CBC Result Value Ref Range WBC 8.46 4.00 - 10.80 K/uL RBC 2.18 4.50 - 5.25 M/uL HGB 6.3 (L) 14.0 - 16.8 g/dL HCT 20.0 (L) 40.0 - 48.4 % MCV 91.7 82.0 - 99.5 fL MCH 28.9 27.0 - 34.0 pg MCHC 31.5 32.0 - 36.0 g/dL RDW 17.2 11.5 - 15.5 % PLT 181 140 - 400 K/uL MPV 9.1 6.6 - 11.1 fL nRBCs 0 <=0 /100 WBCs CELL COUNT, BODY FLUID Result Value Ref Range Clarity, Fluid Cloudy (A) Clear Color, Fluid Yellow Straw, Yellow, Colorless Total Nucleated Cell Count, Fluid 38 cells/uL RBC, Fluid 873 cells/uL MANUAL DIFFERENTIAL, BODY FLUID Result Value Ref Range Total Nucleated Cell Count, Fluid 38 cells/uL Neutrophils % 13 % Lymphocytes % 61 % Monocytes % 24 % Eosinophils % 2 % Basophils % 2 % Absolute Neutrophils 4.94 cells/uL Absolute Lymphocytes 23.18 cells/uL Absolute Monocytes 9.12 cells/uL Absolute Eosinophils 0.76 cells/uL Absolute Basophils 0.76 cells/uL CULTURE, AFB Specimen: Peritoneal Fluid; Body Fluid Result Value Ref Range Culture Growth No acid fast bacilli isolated to date Stain Description No acid fast bacilli seen CULTURE, BODY FLUID, AEROBIC Result Value Ref Range Culture Growth No growth Stain Description No polymorphonuclear leukocytes seen Stain Description No organisms seen PROTEIN, BODY FLUID Result Value Ref Range Protein, Body Fluid 1.2 g/dL ALBUMIN, BODY FLUID Result Value Ref Range Albumin, Body Fluid <1.0 g/dL PHOSPHATIDYLETHANOL, BLOOD Result Value Ref Range PEth 16:0/18:1 (POPEth) NEGATIVE <20 ng/mL PEth 16:0/18:2 (PLPEth) NEGATIVE <20 ng/mL PEth Comments SEE BELOW ELECTROLYTES, RANDOM URINE Result Value Ref Range Sodium, Random Urine <20 mmol/L Potassium, Random Urine 26.1 mmol/L Chloride, Random Urine <20 mmol/L HEMOGLOBIN AND HEMATOCRIT PANEL Result Value Ref Range HGB 7.5 (L) 14.0 - 16.8 g/dL HCT 24.4 (L) 40.0 - 48.4 % COMPREHENSIVE METABOLIC PANEL Result Value Ref Range BUN 44 (H) 6 - 20 mg/dL CREATININE 2.0 (H) 0.6 - 1.2 mg/dL EGFR 41 (L) >=60 mL/min SODIUM 125 (L) 135 - 146 mmol/L POTASSIUM 4.8 3.5 - 5.1 mmol/L CHLORIDE 98 98 - 107 mmol/L CO2 18 (L) 22 - 32 mmol/L ANION GAP 9 7 - 15 mmol/L GLUCOSE 121 (H) 70 - 120 mg/dL Albumin 2.4 (L) 3.8 - 5.0 g/dL AST 17 10 - 50 U/L Alkaline Phosphatase 53 35 - 130 U/L Bilirubin, Total 1.5 (H) <=1.2 mg/dL CALCIUM 7.3 (L) 8.4 - 10.2 mg/dL Protein 4.9 (L) 6.0 - 8.3 g/dL ALT 12 10 - 50 U/L PT INR Result Value Ref Range Prothrombin Time 17.6 (H) 11.6 - 15.2 seconds INR 1.4 (H) 0.8 - 1.2 MAGNESIUM Result Value Ref Range Magnesium 2.7 (H) 1.5 - 2.6 mg/dL PHOSPHORUS Result Value Ref Range Phosphorus 3.9 2.5 - 4.8 mg/dL CBC Result Value Ref Range WBC 7.69 4.00 - 10.80 K/uL RBC 2.44 4.50 - 5.25 M/uL HGB 7.0 (L) 14.0 - 16.8 g/dL HCT 22.8 (L) 40.0 - 48.4 % MCV 93.4 82.0 - 99.5 fL MCH 28.7 27.0 - 34.0 pg MCHC 30.7 32.0 - 36.0 g/dL RDW 17.2 11.5 - 15.5 % PLT 160 140 - 400 K/uL MPV 9.4 6.6 - 11.1 fL nRBCs 0 <=0 /100 WBCs CYSTATIN C WITH EGFR Result Value Ref Range Cystatin C 2.60 (H) 0.67 - 1.21 mg/L eGFR (CysC) 23 (L) >=60 mL/min COMPREHENSIVE METABOLIC PANEL Result Value Ref Range BUN 42 (H) 6 - 20 mg/dL CREATININE 2.0 (H) 0.6 - 1.2 mg/dL EGFR 40 (L) >=60 mL/min SODIUM 123 (L) 135 - 146 mmol/L POTASSIUM 5.1 3.5 - 5.1 mmol/L CHLORIDE 98 98 - 107 mmol/L CO2 18 (L) 22 - 32 mmol/L ANION GAP 7 7 - 15 mmol/L GLUCOSE 115 70 - 120 mg/dL Albumin 2.5 (L) 3.8 - 5.0 g/dL AST 14 10 - 50 U/L Alkaline Phosphatase 52 35 - 130 U/L Bilirubin, Total 1.0 <=1.2 mg/dL CALCIUM 7.2 (L) 8.4 - 10.2 mg/dL Protein 5.0 (L) 6.0 - 8.3 g/dL ALT 12 10 - 50 U/L PT INR Result Value Ref Range Prothrombin Time 17.5 (H) 11.6 - 15.2 seconds INR 1.4 (H) 0.8 - 1.2 MAGNESIUM Result Value Ref Range Magnesium 2.6 1.5 - 2.6 mg/dL PHOSPHORUS Result Value Ref Range Phosphorus 4.0 2.5 - 4.8 mg/dL CBC Result Value Ref Range WBC 9.21 4.00 - 10.80 K/uL RBC 2.41 4.50 - 5.25 M/uL HGB 6.9 (L) 14.0 - 16.8 g/dL HCT 22.6 (L) 40.0 - 48.4 % MCV 93.8 82.0 - 99.5 fL MCH 28.6 27.0 - 34.0 pg MCHC 30.5 32.0 - 36.0 g/dL RDW 17.2 11.5 - 15.5 % PLT 136 (L) 140 - 400 K/uL MPV 8.8 6.6 - 11.1 fL nRBCs 0 <=0 /100 WBCs TYPE AND SCREEN Result Value Ref Range ABO A Rh Negative Red Blood Cell Antibody Screen Negative Specimen Expiration Date 08/27/2024 23:59 HEMOGLOBIN AND HEMATOCRIT PANEL Result Value Ref Range HGB 8.2 (L) 14.0 - 16.8 g/dL HCT 27.7 (L) 40.0 - 48.4 % COMPREHENSIVE METABOLIC PANEL Result Value Ref Range BUN 38 (H) 6 - 20 mg/dL CREATININE 1.8 (H) 0.6 - 1.2 mg/dL EGFR 46 (L) >=60 mL/min SODIUM 125 (L) 135 - 146 mmol/L POTASSIUM 5.0 3.5 - 5.1 mmol/L CHLORIDE 100 98 - 107 mmol/L CO2 16 (L) 22 - 32 mmol/L ANION GAP 9 7 - 15 mmol/L GLUCOSE 91 70 - 120 mg/dL Albumin 2.8 (L) 3.8 - 5.0 g/dL AST 19 10 - 50 U/L Alkaline Phosphatase 56 35 - 130 U/L Bilirubin, Total 1.6 (H) <=1.2 mg/dL CALCIUM 7.7 (L) 8.4 - 10.2 mg/dL Protein 5.6 (L) 6.0 - 8.3 g/dL ALT 14 10 - 50 U/L PT INR Result Value Ref Range Prothrombin Time 16.7 (H) 11.6 - 15.2 seconds INR 1.3 (H) 0.8 - 1.2 MAGNESIUM Result Value Ref Range Magnesium 2.7 (H) 1.5 - 2.6 mg/dL PHOSPHORUS Result Value Ref Range Phosphorus 3.6 2.5 - 4.8 mg/dL CBC Result Value Ref Range WBC 8.66 4.00 - 10.80 K/uL RBC 2.90 4.50 - 5.25 M/uL HGB 8.3 (L) 14.0 - 16.8 g/dL HCT 27.6 (L) 40.0 - 48.4 % MCV 95.2 82.0 - 99.5 fL MCH 28.6 27.0 - 34.0 pg MCHC 30.1 32.0 - 36.0 g/dL RDW 17.9 11.5 - 15.5 % PLT 144 140 - 400 K/uL MPV 9.5 6.6 - 11.1 fL nRBCs 0 <=0 /100 WBCs *Note: Due to a large number of results and/or encounters for the requested time period, some results have not been displayed. A complete set of results can be found in Results Review. MELD 3.0: 22 at 08/30/2024 6:47 AM Calculated from: Serum Creatinine: 1.6 mg/dL at 08/30/2024 6:47 AM Serum Sodium: 128 mmol/L at 08/30/2024 6:47 AM Total Bilirubin: 0.9 mg/dL (Using min of 1 mg/dL) at 08/30/2024 6:47 AM Serum Albumin: 2.4 g/dL at 08/30/2024 6:47 AM INR(ratio): 1.3 at 08/30/2024 6:47 AM Age at listing (hypothetical): 53 years Sex: Male at 08/30/2024 6:47 AM FIPS 0.65: 1 month survival 91.6%, 6 month survival 63.5% IMAGING: CT LIVER 4 PHASE (08/30/24) : Personally reviewed 08/30/24 CT LIVER 4-PHASE W WO IV CONTRAST - WO ORAL CONT - 08/30/2024 HISTORY to evaluate his varices and portal vein COMPARISON CT 05/10/2024 TECHNIQUE Axial images of the abdomen were obtained per 4-phase liver protocol. Sagittal and coronal reformats were submitted. FINDINGS Lower chest: Similar small left pleural effusion with lower lobe atelectasis. Lines and devices: None. Liver: Cirrhosis. No suspicious lesions. Gallbladder: Cholelithiasis. Bile ducts: Unremarkable. Pancreas: Unremarkable. Spleen: Unremarkable. Adrenals: Unremarkable. Kidneys/Ureters (visualized): Bilateral renal cysts including right lower pole cyst with septationsand calcifications. Peritoneum/Retroperitoneum: Similar large volume ascites. Bowel: Normal in caliber without evidence of obstruction. Lymph nodes: No lymphadenopathy. 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 Patent portal vein. Embolization coils in the upper abdomen and right liver. Similar patent right paraumbilical shunt and similar paraesophageal varices. No new varices. Abdominal Wall/Soft Tissues: Unremarkable. Bones: Degenerative changes of the spine. IMPRESSION IMPRESSION 1. 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 No new varices. 2. Patent portal vein. 3. Similar large volume ascites. 4. Cirrhosis without suspicious hepatic lesion. On my read, the left, right, and main portal veins are patent although the right posterior portal vein is small. Patent SMV and IMV. Splenic vein is patent but diminutive. Recanalized umbilical vein. Tortuous splenorenal shunt. Large gastric varices. Large volume ascites. Percutaneous transhepatic gastroduodenal variceal embolization. Ultrasound-guided intraperitoneal drain placement. 05/10/24 INDICATION: 53-year-old male with decompensated alcoholic cirrhosis, not a TIPS candidate complicated by symptomatic ascites and gastroduodenal varices causing recurrent upper GI bleeding. ATTENDING (OPERATING PHYSICIAN): Durga Acevedo MD SCRUBBED RESIDENT (OPERATING PHYSICIAN): Tramaine Ramos MD SUPPORTING PROVIDER (DIESEL TRUCK MECHANIC): None. CONSENT: After a detailed discussion of the procedure, risks, benefits and alternative treatment options, informed consent was obtained. TIME OUT: A time out procedure was performed. The patient's identification was verified. Informed consent with agreement of procedure, site and position was obtained. All necessary equipment was available prior to procedure. CONTRAST: IV Optiray 320. COMPLICATIONS: None. ANESTHESIA: Local lidocaine. General anesthesia. SEDATION TIME: Please refer to anesthesia note. MEDICATIONS: See MAR ULTRASOUND-GUIDED INTRAPERITONEAL DRAIN PLACEMENT: PROCEDURE DESCRIPTION: After survey US images of the abdomen were performed, the ascites in the right abdomen was studied. Then the access site was selected in the right lateral abdominal wall and the site was prepped and draped in the usual sterile fashion. The skin and deep soft tissues were anesthetized and using image guidance, a 5 Fr one-step catheter-needle was inserted into the fluid. An 035 wire was inserted into the fluid via the access and after tract dilation, a 12 Fr locking loop catheter was inserted over the wire. The catheter was secured to the patient and attached to a gravitydrainage bag. Approximately 8000 mL of yellow straw-colored fluid was removed and discarded. PERCUTANEOUS TRANSHEPATIC GASTRODUODENAL VARICEAL EMBOLIZATION: PROCEDURE DESCRIPTION: Using real-time ultrasound and fluoroscopy guidance a peripheral left portalvein was punctured using a Accustick needle and access was secured. Digital ultrasound and fluoroscopic images of the vein were acquired and digitally archived. A microwire was advanced into the leftmain portal vein. A micro sheath was placed over a wire, and digital subtraction angiography (DSA) was obtained. After serial exchanges, a long sheath was advanced into the main portal vein. A Kumpe catheter was inserted over an 035 wire and was used to catheterize the main portal vein, followed bythe superior and inferior mesenteric veins and the splenic vein. Venogram was performed in each cath eterized vein branch. Multiple gastroduodenal varices were noted branching off the main portal vein. Noting the findings, the Kumpe catheter was used to catheterize the main variceal branches, and DSAwas performed. To improve visualization of the area of concern, super selective catheterization of the smaller variceal branch was performed with a microcatheter and DSA was performed. Given the findings, Gel-Foam slurry was carefully injected into the varix. This was followed by deployment of multiple coils to insure complete embolization. A post embolization control angiogram wasperformed. The microcatheter was subsequently withdrawn and catheterization of another varix was performed with the microcatheter and DSA was performed. Given the findings, coils were deployed into the varix. A post-embolization control arteriogram wasperformed. The microcatheter was subsequently withdrawn and catheterization of a third varix was performed with the microcatheter and DSA was performed. Given the findings, coils were deployed into the varix. A post-embolization control arteriogram was performed. To ensure complete variceal embolization, the microcatheter was removed and the Kumpe catheter was repositioned into the proximal splenic vein, and DSA was performed. No major gastroduodenal variceal shunts were noted. The sheath was withdrawn over the wire and access site was then closed with coil initially, catheters and wires wereretracted and additional Coil were deployed at the hepatic subcapsular access site to minimize bleeding. The access sheath was then removed and the site was dressed. The procedures were performed under the personal supervision of Dr. Durga Acevedo MD who was present for the entire procedure. FINDINGS: Ultrasound-guided intraperitoneal drain placement: Survey ultrasound images demonstrated large ascites. Further imaging shows at the needle is within the ascites. Final imaging demonstrates a catheter loops in the ascites. No complication noted on post placement imaging. Percutaneous transhepatic gastroduodenal variceal embolization: 1. Access: The left portal vein is anechoic by ultrasound. Ultrasound and fluoroscopy-guided accesswas obtained. Fluoroscopic imaging demonstrates access to a peripheral left portal vein. 2. Portogram: There is conventional portal vein anatomy. Multiple gastroduodenal and esophageal andgastric varices are noted branching of the portal vein. Embolization performed using Gelfoam slurryand coils. No major gastroduodenal variceal shunts were noted on post embolization control angiogram. IMPRESSION IMPRESSION: Successful percutaneous transhepatic Gelfoam and coil embolization of the gastroduodenal varices. Successful ultrasound-guided percutaneous intraperitoneal drainage catheter placement. PLAN: - we will remove drainage catheter in 48 hours prior to discharge - keep drain connected to bag - keep bag to gravity - do not flush drain ASSESSMENT & PLAN: Santiago Amador is a 53 year old male with COPD, CKD 3b, decompensated alcoholic cirrhosis, characterized by esophageal and duodenal varices s/p embolization Apr 2024, ascites requiring weekly large volume (9-10L) paracenteses, history of metabolic encephalopathy, gastric antral vascular ectasia, who presented to [facility] with symptomatic anemia (Hgb 3.3), thought to be secondary to bleeding duodenal varices based on EGD findings. IR was consulted for TIPS. We discussed the pathophysiology of portal hypertension and development of varices. I explained that variceal embolization +/- TIPS is our recommendation to treat his varices. Variceal embolization alone has fewer risks and would treat the current varices, but it is only a matter of time until new varices develop. Risks of embolization alone were reviewed including bleeding, venous rupture, infection, injury to adjacent structures, non-target embolization, incomplete embolization of varices, need for additional procedures. TIPS would address the underlying portal hypertension but conveys additional significant risk of liver failure, encephalopathy, renal failure, heart failure. Based on hiscurrent MELD there is a 5-10% chance of in the next three months. He would like to undergo variceal embolization without TIPS placement at this time. He expressed understanding of the risks. Plan: Variceal embolization and paracentesis under moderate sedation. Please keep patient NPO for possible procedure today. * Moy Hernandez RDN - 08/28/2024 12:57 PM EST CLINICAL NUTRITION CONSULT/PROGRESS NOTE [facility] [place] [id number] Name: Santiago Amador Location: [facility] HFAM/Endo Date: 08/28/2024 Time: 12:58 PM How patient was identified (select 2): Wristband and Name Discussed in interdisciplinary rounds: Dulce Amador is a 53 year old male being seen for extended LOS Primary Diagnosis: Admitted with GI bleed, hx of Alcoholic cirrhosis. Other pertinent information: Patient seen this morning, reports J[employer]ANT good appetite denies any decline in his intake. This morning, he is NPO for colonoscopy and EGD. Reports eating most of the meals in admission. At home he notes he used to drink boost/ensure type drinks but then stopped as he felt he was gaining too much weight. Agreeable to supplement this admission. Patient states he at one point weighed around 260lb then lost down to 200lb notes he then gained weight to around 230lb. Notes he feels better when he is around 200lb. Patient aware that he does retain fluid which impacts his weight. Unable to determine dry weight changes in our conversations. Suspect that part of these large changes have been fluid related. Patient with noted ascites which he notes having paracentesis to treat. Reports weight gain was different from this. Hx noted of severe malnutrition, patient still with severe fat and muscle loss. With a good oral intake. Given fluid status weight is not a reliable marker. Still would consider pt to meet criteria for severe malnutrition. NUTRITION ASSESSMENT: Past medical/surgical history and medications reviewed. Food/Nutrition-Related History Diet: NPO Previously followed diet: Regular Food Allergies/Intolerances: no known Adult Energy Intake: No significant decrease Percentage of meal intake: Greater than 75% Oral Nutrition Supplement (ONS): none Nutrition Support: none Pertinent medications/vitamins/minerals/supplements: Isolyte-S infusion, Folic acid, Lactulose Pertinent Biochemical Data: Latest Reference Range & Units 08/26/24 03:29 08/27/24 06:45 08/28/24 09:22 POTASSIUM 3.5 - 5.1 mmol/L 5.5 (H) 5.6 (H) 5.1 (H): Data is abnormally high Nutrition-Focused Physical Findings: Appearance: Ill-appearing Respiratory support: Supplemental O2 Delivery: Room Air, None Nasal/Oral: No issues identified Digestive: No issues identified Last Bowel Movement: 08/28/24 (08/28/24 0800) Cognition: Awake, alert Skin: Intact Edema Location: Right Lower Extremity (RLE);Left Lower Extremity (LLE) (08/28/24 0735) Edema Assessment: +2 - Description (08/25/241929) Enteral access: none Nutrition Focused Physical Exam: NFPE completed on 08/28/24 Subcutaneous Fat Loss: Orbital fat pads: Severe Buccal fat: Severe Tricep: Severe Muscle Loss: Temples: Severe Clavicles: Severe Shoulders: Severe Interosseous: Moderate Quadriceps: Unable to assess Calves: Unable to assess *LE with significant edema not able to assess Anthropometrics Measurements Height: 165.1 cm (5' 5") (08/24/241944) Admission weight: 95 kg Weight: 91.6 kg (202 lb) (08/28/24 0807) BMI: 35.15 (08/24/241944) Usual Body Weight: 94kg- lowest weight noted in 2023, estimated dry weight [place] weight: 67.8 kg [place] Weight Based on BMI: 24.9 Adjusted ideal weight: 74.6 kg Interpretation of Weight Change Prior to Admission: No recent/significant weight change Weight Changes Since Admission: n/a Nutrition Prescription: Energy needs: 30-35 Kcal/kg Based on [place] weight Kcal/day: Protein needs: 1.3-1.5 gm/kg Based on [place] weight gm/day: 88-101 Fluid needs: 30 ml/kg Based on [place] weight mL/day: 2033 Malnutrition: Malnutrition Present: Yes (08/28/24 1300) Adult Malnutrition Classification: Severe (08/28/24 1300) Malnutrition Characteristics: Fat loss;Muscle loss (08/28/24 1300) Malnutrition Care Plan: Patient meets ASPEN/AND criteria for severe malnutrition. Plan to meet 75% of estimated calorie and 75% of estimated protein requirements via therapeutic diet and a nutrition intervention of oral nutrition supplements. If patient unable to achieve estimatedrequirements over next 5 days, will need to consider enteral nutrition. NUTRITION DIAGNOSIS: Malnutrition severe related to chronic illness as evidenced by severe fat loss and severe muscle loss. Goals: Patient to consume greater than 75 % of daily meals and 75% of daily supplements within 5 days. NUTRITION INTERVENTION/PLAN: Orders: Oral nutrition supplement added Boost (1 cup provides 240 calories, 10 grams protein, 37 grams carbohydrate) daily *Will start with diet advancement Clinical Nutrition Recommendations: Diet: Advance diet when clinically feasible NUTRITION MONITORING AND EVALUATION: Tolerance of supplement per patient/nursing report Lab values warranting change with MNT Weight for trends Plan follow-up: Will follow and adjust nutrition plan of care as medical condition requires. Please contact for change(s) in patient condition requiring earlier intervention. Moy VEGA [facility] Clinical Nutrition Services [place] Text / x [phone] * Mohit Esquivel MD - 08/26/2024 8:55 AM ESTAssociated Order(s): CARDIOLOGY CONSULT IP CONSULT - Cardiology [facility] [place] [id number] Name: Santiago Amador [place] [facility] [place] [id number] Date: 08/26/2024 Time: 8:56 AM REQUESTING SERVICE: Medicine REASON FOR CONSULT: "Evaluation for stress test vs cath as a part of liver transplant workup requested by Hepatology team." Santiago Amador is a 53 year old male with PMHx significant for: Alcoholic cirrhosis Portal hypertension, severe portal hypertensive gastropathy Esophageal varices COPD Tobacco use disorder JEWELRY CONSULTANT CARDIAC THERAPY: Midodrine 5 TID Torsemide 40 BID Spironolactone 100 daily HPI: He is admitted at [facility] [place] on 08/21/2024 for severe symptomatic anemia with hemoglobin 3.3 in the setting of cirrhosis of liver secondary to alcohol use. He is currently undergoing evaluation for liver transplant. Currently, he denies any complaints. No chest pain, palpitations, dizziness, lightheadedness, shortness of breath or loss of consciousness. At baseline he is able to walk on level ground without any limitations. He is able to go up and downstairs without needing to stop for breath. PAST MEDICAL HISTORY: Past Medical History: Diagnosis Date Alcoholic cirrhosis (HCC) 12/19/2023 Alcoholism (HCC) Ascites due to alcoholic cirrhosis (HCC) 12/19/2023 COPD, mild (HCC) 12/19/2023 Current smoker Family history of colon cancer paternal grandfather PAST SURGICAL HISTORY: Past Surgical History: Procedure Laterality Date IR VENOUS INTERVENTION 05/10/2024 REMOVAL OF TONSILS, UNDER AGE 14 FAMILY HISTORY: Family History Problem Relation Name Age of Onset Stroke Mother Hypertension Mother Diabetes Mother No Known Problems Sister Manuela No Known Problems Sister Alba Colon cancer Grandfather (Paternal) SOCIAL HISTORY: Social History Tobacco Use Smoking status: Every Day Current packs/day: 0.50 Average packs/day: 1 pack/day for 34.1 years (32.5 ttl pk-yrs) Types: Cigarettes Start date: 1990 Smokeless tobacco: Never Vaping Use Vaping status: Never Used Substance Use Topics Alcohol use: Not Currently Comment: last drink 4 months ago Drug use: Not Currently Types: Marijuana ALLERGIES: Penicillins ROS: As per HPI. Remainder of ROS is negative. PHYSICAL EXAMINATION: Most Recent Vital Signs: BP: 169 mmHg/92 mmHg (08/26/24652) Pulse: 71 (08/26/24652) Resp: 18 (08/26/24652) Temp: 36.22 C (08/26/24652) Temp Summary: Temp Min: 36.2 C (97.2 F) Max: 36.9 C (98.4 F) SpO2: 97 % (08/26/24652) O2 flow rate: Supplemental O2 Delivery: Room Air, None (08/26/24 0800) Vital Signs Last 24 Hours: Systolic BP: Most Recent Systolic BP Av.8 mmHg Min: 125 mmHg Max: 169 mmHg Temperature: Most Recent Temperature Av.5 C Min: 36.22 C Max: 36.89 C Pulse: Pulse Av Min: 65 Max: 77 Respirations: Resp Av Min: 18 Max: 18 SpO2: SpO2 Av % Min: 97 % Max: 100 % General: Conscious, alert, cooperative and in no immediate distress HEENT: NC/AT, tongue: Moist Chest: Good bilateral air entry, Rales: None, Wheezes: None Heart: S1 S2 audible, rhythm regular rate normal, There are no murmurs, no clicks or rubs Abdomen: soft, no tenderness, distended+ , no rebound or guarding, bowel sounds normal Extremities: Warm, well perfused, edema: trace Neuro: alert, oriented to person, place, and time, Glascow Coma Score 15, muscular strength 5/5 andsymmetric LABS and IMAGING: Labs reviewed as indicated below: Lab results within last 7 days (see chart for full results) Units 08/26/24 0329 08/25/24 0838 08/24/24 1808 08/24/24 0758 HGB g/dL 7.9* 8.3* 8.2* 6.9* HCT % 25.6* 27.6* 27.7* 22.6* WBC K/uL 10.05 8.66 -- 9.21 PLT K/uL 138* 144 -- 136* Lab results within last 7 days (see chart for full results) Units 08/26/24 0329 08/25/24 0838 08/24/24 0758 BUN mg/dL 42* 38* 42* CREATININE mg/dL 1.9* 1.8* 2.0* SODIUM mmol/L 124* 125* 123* POTASSIUM mmol/L 5.5* 5.0 5.1 CHLORIDE mmol/L 101 100 98 CO2 mmol/L 15* 16* 18* ANION GAP mmol/L 8 9 7 CALCIUM mg/dL 7.6* 7.7* 7.2* MELD 3.0: 27 at 08/26/2024 3:29 AM Calculated from: Serum Creatinine: 1.9 mg/dL at 08/26/2024 3:29 AM Serum Sodium: 124 mmol/L (Using min of 125 mmol/L) at 08/26/2024 3:29 AM Total Bilirubin: 0.9 mg/dL (Using min of 1 mg/dL) at 08/26/2024 3:29 AM Serum Albumin: 2.4 g/dL at 08/26/2024 3:29 AM INR(ratio): 1.4 at 08/26/2024 3:29 AM Age at listing (hypothetical): 53 years Sex: Male at 08/26/2024 3:29 AM EKG on 08/21/2024 NSR, low voltage limb leads CXR on 08/22/2024 Patchy bibasilar opacities are felt to most likely represent atelectasis given the low lung volumes. If clinical concern persists, recommend PA and lateral chest x-ray which will better characterize the posterior lung bases, otherwise partially obscured using portable technique. Echocardiogram on 08/21/2024 The qualitative LV ejection fraction is 55-59% (normal). No LV segmental wall motion abnormalities. The left ventricular diastolic function is mildly abnormal (grade I). With bubble study Ascites, Transplant eval, with bubble study, rule out valvular disease Following saline contrast administration there is a small right to left shunt which is most likely at the intrapulmonary level. Cath: No cath on file IMPRESSION and PLAN: Principal Problem: Symptomatic anemia (POA: Unknown) Active Problems: Alcoholic cirrhosis (HCC) (POA: Yes) Ascites due to alcoholic cirrhosis (HCC) (POA: Yes) COPD, mild (HCC) (POA: Yes) Kidney disease, chronic, stage IV (GFR 15-29 ml/min) (HCC) (POA: Yes) GRACIELA (acute kidney injury) (HCC) (POA: Yes) GAVE (gastric antral vascular ectasia) (POA: Yes) Severe protein-energy malnutrition (HCC) (POA: Yes) Duodenal varices (POA: Yes) Other cirrhosis of liver (HCC) (POA: Yes) Secondary esophageal varices with bleeding (HCC) (POA: Yes) Alcohol dependence, in remission (HCC) (POA: Yes) Acute hyperkalemia (POA: Unknown) Hyponatremia (POA: Unknown) Resolved Problems: * No resolved hospital problems. * Cirrhosis of Liver, decompensated. MELD 27 Alcohol use disorder COPD Tobacco use disorder Portal HTN Mild intrapulmonary shunt on bubble study IMPRESSION: 53 year old male with past medical problems as above who presented with decompensated cirrhosis of liver and is being seen as a consult by Cardiology for pre transplant evaluation. I discussed him with Hepatology. His case will be discussed at the transplant committee, and final recommendations for pretransplant workup will be available later today. This will likely involve left and right heart catheterization. He is able to lie flat without any limitations. Good right radial pulse. We briefly discussed the procedure of cardiac catheterization today. RECOMMENDATIONS: - Keep NPO at midnight - Will plan for likely RHC+LHC+Cors tomorrow Patient was seen and was discussed with Dr. Mohit Esquivel, attending physician. Karli Vale MD Fellow, Cardiovascular Medicine [facility] ATTENDING PHYSICIAN ATTESTATION (Pt seen and examined on 08/26/24): I am attesting to the progress note. I have discussed the patient's management with Dr. Karli Vale and agree with the note. I have personally reviewed the electronic medical record and have personally interviewed and examined the patient. I agree with the above clinicians evaluation, physical findings, and plan of care. Medications, vital signs, laboratory data, telemetry monitoring, and radiographic studies were fully reviewed. Pertinent findings documented in this note were personallyreviewed. I have discussed my findings, impression, and plan with the fellow and agree with the findings and plan as documented. I provided 85 min of care to the patient, of which >50% was spent counseling and coordinating care in regards to management of acute exacerbation of HFpEF. Mohit Esquivel MD Advanced Heart Failure & Mechanical Circulatory Support * Maia Olvera CRNP - 08/23/2024 11:38 AM ESTAssociated Order(s): Nephrology Consult IP CONSULT NOTE - Nephrology [facility] [place] [id number] Name: Santiago Amador Location: [facility] [place] B646[place][id number] Date: 08/23/2024 Time: 11:38 AM ? Nephrology Consult IP Consult performed by: Maia Olvera CRNP Consult ordered by: Darcie Hernandez MD Reason for Consult: " GRACIELA on CKD in patient with liver cirrhosis " HPI: Santiago Amador is a 53 year old male w pmh alcoholic cirrhosis, alcoholism, ascites, COPD, former smoker, family history of colon cancer, GRACIELA, GAVE, malnutrition, duodenal varices, secondary esophageal varices with bleeding, who presenting as transfer from [facility] via EMS with complaints of symptomatic anemia. Patient has a baseline creatinine ranging approximately 2.0 On presentation to [facility] [place], Cr was at 2.6 Throughout hospital course creatinine has returned to 2.0 Patient had paracentesis with 9 L removal, is currently on octreotide drip, and given albumin Antibiotics administered throughout admission include ceftriaxone 1 g daily Past Medical History: Diagnosis Date Alcoholic cirrhosis (HCC) 12/19/2023 Alcoholism (HCC) Ascites due to alcoholic cirrhosis (HCC) 12/19/2023 COPD, mild (HCC) 12/19/2023 Current smoker Family history of colon cancer paternal grandfather Subjective: At the time of my evaluation, pt reports doing okay Patient was to prep for colonoscopy today, only a 2-3 BMs overnight but stated BM was now clear like urine Denies N/V, diarrhea, metallic taste, unexplained fatigue, or recent significant weight change Denies irritative or obstructive voiding symptoms, gross hematuria, malodorous urine, or frequency Denies NSAID use or other OTC herbal/supplementation Denies: dyspnea, chest pain, or LE edema ROS otherwise negative unless indicated above Current medication list reviewed Review of patient's allergies indicates: Allergen Reactions Penicillins Unknown Past Surgical History: Procedure Laterality Date IR VENOUS INTERVENTION 05/10/2024 REMOVAL OF TONSILS, UNDER AGE 14 Family history: No known family history of kidney disease or requiring dialysis Social history: Former smoker OBJECTIVE: Most Recent Vital Signs: BP: 119 mmHg/66 mmHg (08/23/24 1107) Pulse: 64 (08/23/24 1107) Resp: 18 (08/23/24 1107) Temp: 36.11 C (08/23/24 1107) Temp Summary: Temp Min: 36 C (96.8 F) Max: 36.9 C (98.4 F) SpO2: 100 % (08/23/24 1107) O2 flow rate: Supplemental O2 Delivery: Room Air, None (08/23/24 1107) Vital Signs last 24 Hours: Systolic BP: Most Recent Systolic BP Av.3 mmHg Min: 105 mmHg Max: 143 mmHg Temperature: Most Recent Temperature Av.5 C Min: 36 C Max: 36.89 C Pulse: Pulse Av.4 Min: 60 Max: 75 Respirations: Resp Av.5 Min: 16 Max: 18 SpO2: SpO2 Av.2 % Min: 96 % Max: 100 % Intake/Output Summary (Last 24 hours) at 08/23/2024 1138 Last data filed at 08/23/2024 1000 Gross per 24 hour Intake 4107.22 ml Output 1100 ml Net 3007.22 ml Weight: 93.3 kg (205 lb 9.6 oz) Physical Examination: Gen: in no acute distress on room air Skin: warm, dry, intact HEENT: mucous membranes moist Neck: no JVD, supple Resp: normal respiratory effort, no wheezing or rhonchi b/l CV: regular rate and rhythm Abdomen: soft, nontender, nondistended Extremities: +2 LE edema Neuro: A&O, conversing appropriately Psych: pleasant IMAGING: Imaging from 08/22/2024 reviewed independently EXAM: XR CHEST 1 VIEW - 08/22/2024 8:58 am HISTORY: To r/o cardiopulmonary source of infection TECHNIQUE: Single portable AP view of the chest COMPARISON: None FINDINGS: Catheters/tubes/devices/foreign bodies: None. Low lung volumes with patchy bibasilar atelectasis. No consolidation or effusion. No evidence of pneumothorax. Cardiomediastinal silhouette is within normal limits. Osseous structures are unremarkable. IMPRESSION IMPRESSION: Patchy bibasilar opacities are felt to most likely represent atelectasis given the low lung volumes. If clinical concern persists, recommend PA and lateral chest x-ray which will better characterize the posterior lung bases, otherwise partially obscured using portable technique. LABS: Reviewed pertinent. Lab results within last 7 days (see chart for full results) Units 08/23/24 0719 08/22/24 0601 08/21/24 1057 CREATININE mg/dL 2.0* 2.5* 2.6* BUN mg/dL 44* 59* 65* GLUCOSE mg/dL 121* 105 102 SODIUM mmol/L 125* 124* 127* POTASSIUM mmol/L 4.8 5.6* 5.9* ANION GAP mmol/L 9 8 8 CO2 mmol/L 18* 18* 20* CHLORIDE mmol/L 98 98 99 Lab results within last 7 days (see chart for full results) Units 08/23/24 0719 08/22/24 2041 08/22/24 0601 08/21/24 1057 HGB g/dL 7.0* 7.5* 6.3* 6.4* HCT % 22.8* 24.4* 20.0* 21.0* WBC K/uL 7.69 -- 8.46 8.97 PLT K/uL 160 -- 181 205 Lab results within last 7 days (see chart for full results) Units 08/23/24 0719 08/22/24 0601 08/21/24 1057 Magnesium mg/dL 2.7* 2.8* 2.9* Albumin g/dL 2.4* 2.6* 2.8* CALCIUM mg/dL 7.3* 7.5* 8.1* Phosphorus mg/dL 3.9 4.0 4.5 Albumin 2.4 hypoalbuminemia Potassium 4.8 WNL Sodium 125 hyponatremia Hemoglobin 7.0 anemia Impression/Plan Santiago Amador is a 53 year old male w pmh alcoholic cirrhosis, alcoholism, ascites, COPD, former smoker, family history of colon cancer, GRACIELA, GAVE, malnutrition, duodenal varices, secondary esophageal varices with bleeding, who presenting as transfer from [facility] via EMS with complaints of symptomatic anemia. # hyponatremia -125 today -draw cystatin c -continue hold on diuretics and spironolactone -Na restrcition less than 2 gm -urine sodium was <20, serum sodium was 124 -strict I&O monitoring -fluid restriction of 1 L per day -consider albumin 25 g q 6 today # non oliguric GRACIELA likely prerenal vs atn in setting of decompenated cirrhosis -UOP on 08/22/2024 1100, not recorded today 0 yes - renal function With slight improvement and acceptable UOP - no acute indication for renal replacement therapy at this time - please draw renal function panel to include phos and albumin level - strict I&Os - goal MAP>65mmHg to prevent further renal injury - please continue to monitor for renal recovery with strict i&os, daily RFP, and regular bladder scans -low K diet # Volume status -hypervolemic - rest of mgmt per primary team Pt was discussed with attending tax expert Dr. Bearden, GI team, and primary team ? LILI Antoine 08/23/24 [email or web address] Cosigned by Hema Bearden DO at 08/23/2024 2:12 PM EST Associated attestation - Hema Bearden DO - 08/23/2024 2:12 PM EST I have reviewed the advanced practitioner's documentation on the date of service referenced in note, and I agree with, and take responsibility for the plan of care. Data review: 1. CMP: Moderate hyponatremia, creatinine down to 2.0 from 2.5 (08/23/2024). 2. CBC: Hemoglobin improved today. 3. [place] urinalysis (08/21). No new renal imaging. I personally viewed/interpreted the CT abdomen image from 05/10/2024: +complex right renal cysts noted. Impression: GRACIELA superimposed on CKD Decompensated cirrhosis with ascites s/p large volume paracentesis Moderate hyponatremia associated with liver disease Acute blood loss anemia/probable GI bleed--> GI following Complex right renal cyst--> follows with Urology Hyperkalemia Suspect GRACIELA prerenal versus ATN in the setting of decompensated cirrhosis + acute blood loss anemia. Recommend: Albumin 25% 25 g q.6h today. Continue to hold [employer] spironolactone and loop diuretic. Dietary sodium restriction less than 2 g per day. No need for renal replacement therapy. * Chandni Atkinson, PT - 08/23/2024 11:23 AM ESTAssociated Order(s): ADULT PHYSICAL THERAPY CONSULT IP Physical Therapy - General Evaluation [address] [address] Name: Santiago Amador [place] [facility] [place] Date: 08/23/2024 Time: 11:23 AM Santiago Amador is a/an 53 year old male. Patient Status: Inpatient Insurance: Payor: [facility] MEDICAID Plan: [facility] Product Type: *No Product type* Patient Seen: at bedside, nursing cleared patient for therapy Patient Identified By: Name, ID Band and Date Diagnosis: symptomatic anemia (08/23/241122) Status of treatment: Discontinue services on evaluation (08/23/241122) Orders: PT evaluation and treatment;OOB (08/23/241122) Total Treatment Time--free text: 16 (08/23/241122) Subjective: Patient supine in bed upon therapist entering room. Patient agreeable to PT evaluation. Past Medical History: Past Medical History: Diagnosis Date Alcoholic cirrhosis (HCC) 12/19/2023 Alcoholism (HCC) Ascites due to alcoholic cirrhosis (HCC) 12/19/2023 COPD, mild (HCC) 12/19/2023 Current smoker Family history of colon cancer paternal grandfather Past Surgical History: Past Surgical History: Procedure Laterality Date IR VENOUS INTERVENTION 05/10/2024 REMOVAL OF TONSILS, UNDER AGE 14 Social History/Disposition Lives with: Friend (08/23/24 1106) Assistance available: Yes (08/23/24 1106) Dwelling type: Multi-story home (08/23/24 1106) Entry steps: 1 (08/23/24 1106) Inside steps: Other - Describe (13) (08/23/24 1106) Bedroom location: 2nd floor (08/23/24 1106) Bath location: 2nd floor full bath (08/23/24 1106) Prior Level of Function Reported by: Patient (08/23/24 112) Ambulation: Ambulatory without device (08/23/24 112) Observations Consciousness: Alert (08/23/24 112) Orientation: Oriented times 4 (08/23/24 112) Psychosocial: Patient can converse in a social setting (08/23/24 1123) Other Findings: Yes (01/24/25 1123) Findings: Light touch sensation;Edema (08/23/241122) Light Touch Sensation Results: Intact;LLE;RLE (08/23/241122) Edema Results: LLE;RLE (edema noted) (08/23/241122) Sitting Posture: Rounded shoulders (08/23/241122) Standing Posture: Rounded shoulders (08/23/241122) Pain: No complaints of pain Range of Motion Range of Motion: WFL (bilateral LE) (08/23/241122) Strength Assessment Strength Assessment: (bilateral LE 4+/5) (08/23/241122) P.T. Bed Mobility Supine-Sit: Independent (08/23/241122) Sit-Supine: Independent (08/23/241122) Transfers Sit-Stand: Independent (08/23/241122) Stand-Sit: Independent (08/23/241122) Ambulation Assist: Independent (08/23/241122) Distance Ambulated (feet): 400 (08/23/241122) Assistive Device: No device (08/23/241122) Number of Stairs: 3 (08/23/241122) Level of Assistance: Independent;Left Rail (08/23/241122) Ambulatory safety: Patient verbalizes insight of current deficits;Patient demonstrates carryover ofinsight during functional tasks (08/23/241122) Balance Sit (Static): Good (08/23/241122) Sit (Dynamic): Good (08/23/241122) Stand (Static): Good (08/23/241122) Stand (Dynamic): Good (08/23/241122) Patient and or Family Goal(s): to get well Patient Education Review of Precautions: (role of PT) (08/23/241122) Safety Awareness: Patient demonstrates carryover of insight during functional tasks (08/23/241122) Preferred learning method: Combination (08/23/241122) Barriers to learning: None (08/23/241122) Method of Education: Verbalized to patient (08/23/241122) Topic of Education: Goals/plan of care, Fall prevention, and role of PT Treatment Provided: Evaluation Low Complexity 16 minutes - 72550: Patient was alert during treatment session. Low complexity evaluation performed with indication of no personal factors or comorbidities that impact plan of care. Alarm Status Patient positioned in: Bed (08/23/241122) With: Call daly in reach (08/23/241122) Treatment Status: Treatment at bedside (08/23/241122) Assessment: Patient is a 53 y/o male with dx symptomatic anemia who presents at an independent level with functional mobility without an assistive device. Patient expresses no concerns in regard to return to home at current functional level. No further skilled PT services deemed necessary at this time. Treatment Plan: Discontinue from Physical Therapy Services AM-PAC Score With Stairs : 24 (08/23/241122) * Aster Ribeiro, OT - 08/23/2024 11:06 AM ESTAssociated Order(s): ADULT OCCUPATIONAL THERAPY CONSULT IP GENERAL EVALUATION - Occupational Therapy [address] [phone] Name: Santiago Amador [place] [facility] [place] Date: 08/23/2024 Time: 11:06 AM Santiago Amador is a 53 year old male. Patient Status: Inpatient Insurance: Payor: [facility] MEDICAID Plan: [facility] Product Type: *No Product type* Patient Seen: at bedside, nursing cleared patient for therapy Patient Identified By: Name, ID Band and Date Diagnosis: symptomatic anemia (08/23/24 1106) Status of treatment: Discontinue services on evaluation (08/23/24 1106) Orders: OT evaluation and treatment (08/23/24 110) Weight Bearing Status: Weight bearing as tolerated (08/23/24 1106) Total Treatment Time: 17 (08/23/24 110) Past Medical History: Past Medical History: Diagnosis Date Alcoholic cirrhosis (HCC) 12/19/2023 Alcoholism (HCC) Ascites due to alcoholic cirrhosis (HCC) 12/19/2023 COPD, mild (HCC) 12/19/2023 Current smoker Family history of colon cancer paternal grandfather Past Surgical History: Past Surgical History: Procedure Laterality Date IR VENOUS INTERVENTION 05/10/2024 REMOVAL OF TONSILS, UNDER AGE 14 Social History/Disposition Lives with: Friend (08/23/24 110) Assistance available: Yes (08/23/24 110) Dwelling type: Multi-story home (08/23/241105) Entry steps: 1 (08/23/24 110) Inside steps: Other - Describe (13) (08/23/24 110) Bedroom location: 2nd floor (08/23/24 110) Bath location: 2nd floor full bath (08/23/241105) Prior Level of Function Reported by: Patient (08/23/24 110) Ambulation: Ambulatory without device (08/23/24 110) Grooming: Independent (08/23/241105) Bathing: Independent (08/23/241105) Dressing: Independent (08/23/241105) Feeding: Independent (08/23/241105) Toileting: Independent (08/23/24 110) Meal Prep: Independent (08/23/24 110) Homemaking: Independent (08/23/24 110) Shopping: Independent (08/23/24 110) Medication Management: Independent (08/23/24 1106) Money Management: Independent (08/23/24 110) Driving: Yes (08/23/241105) Durable Medical Equipment at home: No device (08/23/241105) Subjective: patient was pleasant and cooperative, agreeable to OT evaluation Pain: No complaints of pain Observations Consciousness: Alert (08/23/24 110) Orientation: Oriented times 4 (08/23/241105) Psychosocial: Patient can communicate basic needs;Patient can converse in a social setting (08/23/24 110) Sitting posture: Forward head;Rounded shoulders (08/23/24 110) Standing posture: Forward head;Rounded shoulders (08/23/24 110) Safety awareness: The Patient verbalizes insight of current deficits. (08/23/24 110) Other Findings Endurance: Fair (08/23/241105) Light touch sensation: LUE;RUE;Intact (08/23/24 110) Coordination: LUE;RUE;Intact (08/23/24 110) Current Functional Status: Bilateral Upper Extremity Range of Motion: WNL (08/23/241105) Strength Assessment: (4/5 BUE) (08/23/241105) Self Care Feeding: Modified Independent (08/23/241105) Grooming: Independent (to wash face) (08/23/241105) Toileting: Independent (clothing mgmt) (08/23/241105) Dressing Upper Body: Independent (to doff and arash jacket) (08/23/241105) Lower Body: Independent (to arash slipper socks) (08/23/241105) Functional Ambulation Assistive Device: No device (08/23/241105) Distance in feet:: 400 (08/23/241105) Level of Assistance: Independent (08/23/241105) Bed Mobility Supine-Sit: Independent (08/23/241105) Sit-Supine: Independent (08/23/241105) OT Transfers Sit-Stand: Independent (08/23/241105) Stand-Sit: Independent (08/23/241105) Balance Sit (Static): Good (08/23/241105) Sit (Dynamic): Good (08/23/241105) Stand (Static): Good (08/23/241105) Stand (Dynamic): Good (08/23/241105) Alarm Status Patient positioned in: Bed (08/23/241105) With: Call daly in reach (08/23/241105) Patient and Family Goals: to get well and to return home Patient Education Education Topic: Role of OT (08/23/241105) Review of Precautions: Fall;Safety (08/23/241105) Method of Education: Verbalized to patient (08/23/241105) Education Provided to: Patient (08/23/241105) Response to Education: Receptive and agreeable to education (08/23/241105) Barriers to learning: None (08/23/241105) Preferred learning method: Combination (08/23/241105) Treatment Provided: Evaluation Low Complexity 17 minutes - 24478: Patient was cooperative and pleasant during treatment session. Low complexity evaluation performed and mno deficits were identified that result in activity limitation. The patient does not have any comorbidities that affect occupational performance. There were no modifications necessary to complete the evaluation. Deficits Requiring O.T. Treatment: Deficits requiring O.T. treatment needs: (none noted) (08/23/24 1106) Assessment: Patient is a 53 year old male admitted to [facility] [place] with Dx of symptomatic anemia. Patient lives at home with his friend. He was independent prior to admission. On evaluation, Patient demonstrates independent level for self-care, functional transfers/ambulation, bed mobility, and balance. Recommend a shower seat for home use PRN. Recommend discharge to home with assistance as needed when patient is medically appropriate for discharge. No further OT services are recommended at this time. Treatment Plan: Discontinue Occupational Therapy services AM-PAC Help From Another Person Eating Meals: None (08/23/24 110) Help From Another Person Taking Care of Personal Grooming: None (08/23/24 110) Help From Another Person To Put On/Take Off Upper Body Clothing: None (08/23/24 110) Help From Another Person To Put On/Take Off Lower Body Clothing: None (08/23/24 110) Help From Another Person Toileting: None (08/23/24 110) Help From Another Person Bathing: None (08/23/24 110) OT AM-PAC Score: 24 (08/23/24 1106) OT AM-PAC t-Scale Score: 57.54 (08/23/24 110) HLM (Highest Level of Mobility) Goal: Level 8 walk 250 feet or more (08/23/24 1123) A portion of this AM-PAC assessment not scored based on functional assessment rather clinical decision making utilized based on current findings and/or prior level of function. Please refer to futureAM-PAC calculations of functional ability as they become available. * Raimundo Ortega MD - 08/21/2024 12:12 PM ESTAssociated Order(s): HEPATOLOGY CONSULT IP Images from the original note were not included. CONSULT - Hepatology [facility] [place] [address] Name: Santiago Amador [place] [facility] [place] Date: 08/21/2024 Time: 12:12 PM REQUESTING SERVICE: Medicine REASON FOR CONSULT: "decomp cirrhosis with ascites, symptomatic AoC anemia" HPI: Santiago Amador is a 53 year old male with hx of decompensated cirrhosis 2/2 alcohol use (phg, GAVE, gastric varices status post embolization, ascites on diuretics, and weekly paracentesis) last drink 02/18/2024, history of COPD, tobacco use. GI asked to evaluate for decompensated cirrhosis with acute on chronic symptomatic anemia with a hemoglobin of 3.3, hyponatremic 127, hypomag, and hyperkalemic 5.8. Patient presented to [facility] due to feelings of weakness and fatigue since [place] with progressively worsening lightheadedness and dizziness and was found to have hemoglobin of 3.3 without overt signs of bleeding. No significant signs of infection on chest x-ray or CT abdomen pelvis performed read, however he did have evidence of ascites. Infectious workup at the outside hospital was reported to be negative. He received 3 units PRBCs and 1 unit en route with EMS. He is HD stable and was never tachycardic while at [facility] Underwent last paracentesis for 10 L on 08/19/2024, with yellow fluid removed In April, he underwent EGD 05/09 which showed severe portal hypertensive gastropathy and bleedingfrom duodenal varices treated with hemostatic spray. Additionally, he underwent paracentesis with 4L fluid removal without evidence of SBP. The patient was transferred to [facility] for further IR evaluation for TIPS, but was deemed ultimately not to be an appropriate candidate. He then developed GI bleeding when he underwent successful percutaneous transhepatic Gelfoam and coil embolization of the gastroduodenal varices. Prior admissions also include in March 2024 [facility] in the end of March for acute blood loss anemia secondary to GAVE and portal hypertensive gastropathy that was treated with APC. The patient endorsed daily alcohol use consisting of either a case of beer or a handle of liquor daily for years. He noted a history of prior rehab around 6 years ago and was sober for 1 year before relapse. He currently lives at home and is not working. He is functionally independent at baseline. He has a history of DUI twice, last was in 2012. Patient able to ambulate to bathroom on our evaluation. Sitting in bed, alert and oriented x3. Endorses that he has been compliant with his medication. Does not know his diuretic dosing. States that he has been taking lactulose and having bowel movements. He wants to eat something. HISTORY: Past Medical History: Past Medical History: Diagnosis Date Alcoholic cirrhosis (HCC) 12/19/2023 Alcoholism (HCC) Ascites due to alcoholic cirrhosis (HCC) 12/19/2023 COPD, mild (HCC) 12/19/2023 Current smoker Family history of colon cancer paternal grandfather Past Surgical History: Past Surgical History: Procedure Laterality Date IR VENOUS INTERVENTION 05/10/2024 REMOVAL OF TONSILS, UNDER AGE 14 Social History: Social History Tobacco Use Smoking status: Every Day Current packs/day: 0.50 Average packs/day: 1 pack/day for 34.1 years (32.5 ttl pk-yrs) Types: Cigarettes Start date: 1990 Smokeless tobacco: Never Vaping Use Vaping status: Never Used Substance Use Topics Alcohol use: Not Currently Comment: last drink 4 months ago Drug use: Not Currently Types: Marijuana Family History: Family History Problem Relation Name Age of Onset Stroke Mother Hypertension Mother Diabetes Mother No Known Problems Sister Manuela No Known Problems Sister Alba Colon cancer Grandfather (Paternal) Allergies: Penicillins ROS: Reviewed, negative except as above. PHYSICAL EXAMINATION: Most Recent Vital Signs: BP: 134 mmHg/66 mmHg (08/21/24 1013) Pulse: 64 (08/21/24 0940) Resp: 16 (08/21/24 0940) Temp: 36.11 C (08/21/24 0940) Temp Summary: Temp Min: 36.1 C (97 F) Max: 36.1 C (97 F) SpO2: 99 % (08/21/24 0940) O2 flow rate: Supplemental O2 Delivery: Room Air, None (08/21/24 1100) Vital Signs Last 24 Hours: Systolic BP: Most Recent Systolic BP Av.5 mmHg Min: 98 mmHg Max: 141 mmHg Temperature: Most Recent Temperature Av.11 C Min: 36.11 C Max: 36.11 C Pulse: Pulse Av Min: 64 Max: 64 Respirations: Resp Av Min: 16 Max: 16 SpO2: SpO2 Av % Min: 99 % Max: 99 % Physical Exam Vitals and nursing note reviewed. Constitutional: General: He is not in acute distress. Appearance: He is not toxic-appearing. HENT: Head: Normocephalic. Right Ear: External ear normal. Left Ear: External ear normal. Nose: Nose normal. Eyes: Extraocular Movements: Extraocular movements intact. Conjunctiva/sclera: Conjunctivae normal. Cardiovascular: Rate and Rhythm: Normal rate and regular rhythm. Pulmonary: Effort: Respiratory distress: Equal bilateral chest rise, no audible wheezing. Abdominal: General: Bowel sounds are normal. There is distension. Palpations: Abdomen is soft. Tenderness: There is no abdominal tenderness. There is no guarding. Hernia: No hernia is present. Musculoskeletal: Cervical back: Normal range of motion. Skin: General: Skin is warm and dry. Neurological: General: No focal deficit present. Mental Status: He is alert. Mental status is at baseline. Last Bowel Movement: 08/21/24 (08/21/24 1004) Stool Description: Medium;Soft;Brown (08/21/24 1004) LABS: Reviewed in [facility] Chemistry Panel: Lab results within last 7 days (see chart for full results) Units 08/21/24 1057 SODIUM mmol/L 127* POTASSIUM mmol/L 5.9* CHLORIDE mmol/L 99 CO2 mmol/L 20* BUN mg/dL 65* CREATININE mg/dL 2.6* Complete Blood Count: Lab results within last 7 days (see chart for full results) Units 08/21/24 1057 WBC K/uL 8.97 HGB g/dL 6.4* PLT K/uL 205 Coagulation Studies: Lab results within last 7 days (see chart for full results) Units 08/21/24 1057 INR 1.3* Liver Function Panel: Lab results within last 7 days (see chart for full results) Units 08/21/24 1057 Albumin g/dL 2.8* Protein g/dL 5.5* Bilirubin, Total mg/dL 3.5* AST U/L 22 ALT U/L 14 Alkaline Phosphatase U/L 67 Latest Reference Range & Units 08/21/24 10:57 Iron 45 - 176 ug/dL 210 (H) Iron Binding Capacity 250 - 425 ug/dL 210 (L) Transferrin Saturation Percent 15 - 55 % 100 (H) Ferritin 30 - 400 ng/mL 78 Immature Reticuloctye Fraction 2.5 - 20.6 % 34.3 (H) Reticulocyte Hemoglobin 29.7 - 37.4 pg 24.1 (L) Absolute Reticulocyte 31.3 - 100.1 K/uL 100.4 (H) Reticulocyte Percent 0.80 - 1.90 % 4.46 (H) Recent Cultures (2 Weeks) No lab values to display. IMAGES: Reviewed in [facility] MRI AP: 11/20/2023 IMPRESSION 1. Liver iron [...] cm. Consider continued surveillance. 5. Moderate ascites. ECHO 08/21/2024 "Interpretation Summary The primary indication after review was deemed appropriate and the examination was performed. The qualitative LV ejection fraction is 55-59% (normal). No LV segmental wall motion abnormalities. The left ventricular diastolic function is mildly abnormal (grade I). " ENDOSCOPIC Hx: Reviewed in [facility] and relevant for : EGD 05/09/24 EGD 04/28/2024 IMPRESSION: Santiago Amador is a 53 year old male with PMHx of ETOH cirrhosis complicated by ascites, portal hypertension, GAVE, esophageal and duodenal varices, and hepatic encephalopathy presenting to [facility] and transferred to [facility] after being found to have hgb of 3.3 sp 4 units, to 6.4 and ascites, without overt signs of bleeding. Of note, he recently was admitted to [facility] in April for AoC anemia and underwent IR directed gastroduodenal varices coil embolization on 05/10/2024. S/p IR peritoneal drain placed draining significant amount of ascites. He underwent inpatient transplant evaluation and also seen in the clinic with no absolute contraindications noted and with remaining transplant work up including cardiology/ischemic cardiac testing, pulmonary evaluation, and colonoscopy. MELD 3.0: 30 at 08/21/2024 10:57 AM MELD-Na: 29 at 08/21/2024 10:57 AM Calculated from: Serum Creatinine: 2.6 mg/dL at 08/21/2024 10:57 AM Serum Sodium: 127 mmol/L at 08/21/2024 10:57 AM Total Bilirubin: 3.5 mg/dL at 08/21/2024 10:57 AM Serum Albumin: 2.8 g/dL at 08/21/2024 10:57 AM INR(ratio): 1.3 at 08/21/2024 10:57 AM Age at listing (hypothetical): 53 years Sex: Male at 08/21/2024 10:57 AM RECOMMENDATIONS/PLAN: Decompensated EtoH Liver Cirrhosis 2/2 ascites, EV/IGV and duodenal varices sp embolization, PHG, GAVE, HE Electrolyte derangements Stage 1 GRACIELA, improved Child's Wray 10C Meld 3.0 Score 30 AUD in remission, last drink 01/2024 Infectious w/u : BCx, UA/UCx, CXR, Diagnostic Paracentesis (please send for CBC w/ diff, total protein, albumin, culture) Will need Nuc Med Cardiac study, but likely needs higher hgb (likely 7) Will need endoscopic evaluation when stabilized and hgb closer to 129 and able to tolerate prep Assess PeTH Ascites/peripheral edema - Hold diuretics at this time due to hyponatremia - Obtain dx and therapeutic paracentesis Cholestyramine for pruritis Monitor for GI Bleed given decreasing hgb History of HE - titrate lactulose to goal 3-5 loose stools per day (retention enema if unable to tolerate PO) - rifaximin 550 mg BID Daily MELD labs while admitted (CBC, CMP, INR) dvt ppx Obtain Echo with bubble study Ok to resume diet with fluid restriction Diet recommendations when able - 2 g Na restrictions - 1.5 g/kg/day protein - 25-40 kcal/kg/day energy requirement - RDN assistance to optimize nutrition Exercise - PT/OT while admitted - OOB in Chair - Ambulate QID - at discharge recommend 30 mins of aerobic activity per day + 20 mins strength training X 2 days/week I discussed the case with my attending, Dr. Ortega. Attending Attestation: I have discussed the patient's management with the medical trainee and agree with the note. Please refer to the documented findings and plan of care. The patient's bedside service today consisted of an evaluation. I was present and confirmed the findings of the history and exam. documented in this encounter Nursing Notes * Konrad Beck RN - 09/02/2024 11:34 AM EST NURSING AMBULATION OXYGEN TEST [address] [id number] Name: Santiago Amador Location: [address] Date: 09/02/2024 Time: 11:35 AM Date of test: 09/02/2024 (needs to be completed within 48 hours of discharge) O2 saturation on room air at rest: 94 % O2 saturation at rest is less than or equal to 88 %: no O2 saturation on room air during ambulation: 90 % O2 saturation during ambulation is less than or equal to 88 %: no * Marc Duong RN - 08/31/2024 4:27 PM EST SBAR FOR POST INTERVENTIONAL RADIOLOGY PROCEDURE Patient Name: Santiago Amador Age:[age] year old Sending to: [facility] Procedure: variceal embolizations and paracentesis Medications Administered: yes: Medications (Filter: Administrations occurring from 1212 to 1629 on 08/31/24) As of 08/31/24 1629 albumin, human 25 % inj (mL/hr) Total volume: Not documented* *Total volume has not been documented. View each administration to see the amount administered. Date/Time Rate/Dose/Volume Action Route Admin User 08/31/24 1343 50 g - 120 mL/hr New Bag Intravenous Marc Duong RN [id number] Finish Infusion Marc Duong RN ampicillin-sulbactam in NSS (Unasyn) ivpb 3 g (mL/hr) Total volume: Not documented* Dosing weight: 93.4 *Total volume has not been documented. View each administration to see the amount administered. Date/Time Rate/Dose/Volume Action Route Admin User 08/31/24 1250 3 g - 210 mL/hr (over 30 min) New Bag IV Piggyback Marc Duong RN fentaNYL (PF) inj (mcg) Total dose: 150 mcg Date/Time Rate/Dose/Volume Action Route Admin User 08/31/24 1312 50 mcg Given Intravenous Marc Duong RN 1418 50 mcg Given Intravenous Marc Duong RN 1537 50 mcg Given Intravenous Marc Duong RN midazolam (Versed) 2 MG/2ML inj (mg) Total dose: 3 mg Date/Time Rate/Dose/Volume Action Route Admin User 08/31/24 1312 1 mg Given Intravenous Marc Duong RN 1418 1 mg Given Intravenous Marc Duong RN 1537 1 mg Given Intravenous Marc Duong RN buffered lidocaine 1 % inj (mL) Total volume: 15 mL Date/Time Rate/Dose/Volume Action Route Admin User 08/31/24 1255 15 mL Given Intradermal Sang Vincent DO Special Instructions: see orders Concerns: no Report from: Andrews Phone extension: [phone] Patient sent via: Bed Reason for SBAR handoff: Transfer Patient meets discharge criteria for Interventional Radiology. Vital signs stable. Dressing clean, dry, and intact. Patient awake and oriented to pre procedure baseline. Patient with no nausea/vomiting. All belongings sent with patient. Vital Signs: BP: 103/72 (08/31/24 1624) Temp: 36.5 C (97.7 F) (08/31/24 1052) Pulse: 64 (08/31/24 1624) Resp: 12 (08/31/24 1624) SpO2: 100 % (08/31/24 1624) Glucose (Bedside): 86 (08/21/24 1728) Weight: 93.4 kg (205 lb 14.6 oz) (08/30/24 0622) Height: 165.1 cm (5' 5") (08/24/24 1945) Neurological: Valentina Coma Scale - For patients greater than two years old Eyes Open: Spontaneous (08/31/24 1234) Best Verbal Response: Verbally appropriate for age (08/31/24 1234) Best Motor Response: Obeys commands appropriate for age (08/31/24 1234) Coma Score: 15 (08/31/24 1234) Activity: Four Extremities LOC: Fully Awake or Pre-Anesthetic Level of Consciousness BP: Less than (+/-) 20% Resp: Deep Breathe and Cough Freely (08/31 1623) Respiratory: Pain Assessment Flowsheet Row Most Recent Value Pain Assessment Scale [facility] Adult Scale 0-10 (18 years and older) Pain Score 0 (no pain) Lines: Peripheral Line Left;Upper 20 Gauge (Active) Status Capped/Locked;Flushes easily;Alcohol disinfectant cap;Cap changed 08/31/24 1100 Tubing Changed N/A 08/31/24 1100 Phlebitis Scale 0 08/31/24 1100 Infiltration Scale 0 08/31/24 1100 Site Description (Other) Without redness, swelling or drainage 08/31/24 1100 Site Intervention Flushed 08/31/24 1100 Dressing Assessment Dressing clean, dry, and intact 08/31/24 1100 Dressing Intervention None required 08/29/24 0750 Number of days: 10 Peripheral Line Left Antecubital 20 Gauge (Active) Status Capped/Locked;Flushes easily;Alcohol disinfectant cap;Cap changed 08/31/24 1100 Tubing Changed No 08/31/24 1100 Phlebitis Scale 0 08/31/24 1100 Infiltration Scale 0 08/31/24 1100 Site Description (Other) Without redness, swelling or drainage 08/31/24 1100 Site Intervention Flushed 08/31/24 1100 Dressing Assessment Dressing clean, dry, and intact 08/31/24 1100 Number of days: 2 * Marc Duong RN - 08/31/2024 4:24 PM EST aircraft parts assembler 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 Patient placed on procedure table, supine position, with comfort measures intact and safety strap in place. Hemodynamic monitoring placed and initiated.Patient denies any current complaints at current time. RT staff prepares and preps for procedure. Reevaluation statement: RN received verbal confirmation that the patient was reevaluated by Dr. Jyoti Santana immediately prior to the sedation at 12:50 PM. Procedure by physician. 12:51 PM Timeout performed by Dr. Jyoti Santana 12:53 PM Procedure started by Dr. Sang Vincent and Dr. Jyoti Santana, and scrubbed RT Rashel Forman Ultrasound utilized for anatomical analysis of patient and access needle guidance. 1% buffered lidocaine given by doctor at mid abdominal site. 12:55 PM 1% buffered lidocaine given by doctor at right abdominal site. 1:00 PM Access obtained. Attached to vacuum container.. 1:12 PM 1 mg Versed and 50 mcg Fentanyl for patient comfort. 1:15 PM Access obtained. Guidewire inserted. Images obtained. 1:53 PM Imaging continues. 2:04 PM Selective embolization with imaging performed, Lipiodol utilized. 2:18 PM 1 mg Versed and 50 mcg Fentanyl for patient comfort. 2:37 PM Selective embolization with imaging continues, gelfoam utilized. 2:40 PM Selective emobolization win imaging continues, Sotradecol utilized. 3:06 PM Suture placed for second access. 3:37 PM 1 mg Versed and 50 mcg Fentanyl for patient comfort. 3:52 PM Intermittent selective embolization with imaging continues, see Implant Record. 4:12 PM Portal pressure 13 mmHg. 4:17 PM Retention sutures and woggle applied to mid abdominal access site. Access removed and manual pressure to site. 4:22 PM Gauze and Tegaderm dressing applied. 4:23 PM Second abdominal access removed and manual pressure to site. Procedure ends. 4:24 PM Hemostasis obtained. Areas cleaned. Gauze and Tegaderm dressings applied. 4:24 PM 7500 mL light red ascites fluid removed. Patient tolerated procedure well without complications. All wires, catheters, sheaths and other devices have been inspected prior to the procedure for damage. This has been confirmed by the scrubbed RT and the operating physician. All items not intended to remain in the patient have been inspected, accounted for and have been removed from the patient atthe end of the procedure. This has been confirmed by the scrubbed RT and the operating physician. Pt did receive conscious sedation for their procedure, and was sedated from 1:12 PM to 4:26 PM. Total medications given Versed: 1.5 mg Fentanyl: 150 mcg Albumin: 50 g Unasyn: 3 g 1% buffered lidocaine: 15 mL Please see doctor's operative note for additional details. * Roya Roman RN - 08/31/2024 9:42 AM EST INPATIENT TO INTERVENTIONAL RADIOLOGY (IR) HANDOFF COMMUNICATION NOTE [facility] [address] [address] Name: Santiago Amador Age: [age] year old [place] [facility] [place] Date: 08/31/2024 Safety Concerns: None Allergies: Penicillins Contrast Dye Allergy? no Allergy prepped? No Code Status: Full Code Isolation: no Report from: Roya Roman RN at phone extension [phone] Patient arriving via: Bed Reason for SBAR handoff: Procedure Patient is alert and oriented and able to sign consent (if not, contact lens blocker and number): Yes Patient NPO: yes Patient NPO since: midnight Patient wears CPAP, BiPAP, or oxygen overnight: no Patient has difficulty breathing when lying flat? no Emotional/Personal Anxiety? no Last as needed pain medication given at (time): n/a Situation/Background Admission date: 08/21/2024 Patient Service: Med W [[id number]] Attending Provider: Lolita Coyne MD Admitting diagnosis: GI bleed Alcoholic cirrhosis (HCC) Chief Complaint: No chief complaint on file. Problem list: Principal Problem: Anemia Active Problems: Alcoholic cirrhosis (HCC) Ascites due to alcoholic cirrhosis (HCC) COPD, mild (HCC) Kidney disease, chronic, stage IV (GFR 15-29 ml/min) (HCC) GRACIELA (acute kidney injury) (HCC) GAVE (gastric antral vascular ectasia) Severe protein-energy malnutrition (HCC) Duodenal varices Other cirrhosis of liver (HCC) Secondary esophageal varices with bleeding (HCC) Alcohol dependence, in remission (HCC) Acute hyperkalemia Hyponatremia Iron deficiency anemia due to chronic blood loss Portal hypertension (HCC) Preoperative cardiovascular examination Resolved Problems: * No resolved hospital problems. * Level of Care: Med Surg [3] Vital Signs: BP: 121/66 (08/31/24821) Temp: 36.4 C (97.5 F) (08/31/24821) Pulse: 79 (08/31/24821) Resp: 16 (08/31/24821) SpO2: 96 % (08/31/24821) Glucose (Bedside): 86 (08/21/24 1728) Weight: 93.4 kg (205 lb 14.6 oz) (08/30/24621) Height: 165.1 cm (5' 5") (08/24/24 1945) Labs: Please see Lab Flowsheet for lab values. Lab comments: no Lines: Peripheral Line Left;Upper 20 Gauge (Active) Status Capped/Locked;Flushes easily;Alcohol disinfectant cap;Cap changed 08/31/24 08 Tubing Changed N/A 08/31/24 0000 Phlebitis Scale 0 08/31/24 0000 Infiltration Scale 0 08/31/24 Site Description (Other) Without redness, swelling or drainage 08/31/24 0000 Site Intervention Flushed 08/31/24 0000 Dressing Assessment Dressing clean, dry, and intact 08/31/24 0000 Dressing Intervention None required 08/29/24 0750 Number of days: 10 Peripheral Line Left Antecubital 20 Gauge (Active) Status Capped/Locked;Flushes easily;Alcohol disinfectant cap;Cap changed 08/31/24 08 Tubing Changed No 08/31/24 0000 Phlebitis Scale 0 08/31/24 0000 Infiltration Scale 0 08/31/24 0000 Site Description (Other) Without redness, swelling or drainage 08/31/24 0000 Site Intervention Flushed 08/31/24 0000 Dressing Assessment Dressing clean, dry, and intact 02/01/25 0000 Number of days: 2 Fall Scale: Fall Score: 35 (08/29/241999) Fall Interventions: Bed at low level;Bed alarm on;Yellow armband applied/intact and on patient;Fallrisk sign above bed;Fall risk sign outside room;Floor free of clutter;Non-skid foot covering on;Personal Alarm on and audible;Pressure sensitive pad alarm on and audible;Reoriented patient;Walk path free of obstacles (08/29/241999) Neurological: [place] Coma Scale - For patients greater than two years old Eyes Open: Spontaneous (08/31/24215) Best Verbal Response: Verbally appropriate for age (08/31/24215) Best Motor Response: Obeys commands appropriate for age (08/31/24215) Coma Score: 15 (08/31/24215) Additional Neurological Information: no Respiratory: Respiratory WNL: WNL- within normal limits (08/30/241999) Depth/Rhythm: Regular (08/30/24754) Dyspnea Occurance: None (08/30/24754) Effort: Unlabored (08/30/24754) Oxygen therapy/ Mechanical vent Supplemental O2 Delivery: Room Air, None (08/31/24821) O2 flow rate: 0 L/MIN (08/30/24 1524) O2 flow rate: 0 L/MIN (08/30/24 152) Additional Respiratory Information: no Cardiac: Cardiovascular WNL: WNL - within normal limits (08/31/24) Heart Sounds: S1;S2 (08/31/24) Rhythm: Regular (08/31/24215) RI interval: 0.19 seconds (08/31/24) QRS: 0.08 seconds (08/31/24) Extremities: +Sensation;Right;Left;Upper;Lower (08/29/241999) Pulses Right: Dorsalis Pedis +;Radial + (08/29/241999) Pulses Left: Dorsalis Pedis +;Radial + (08/29/241999) Edema Location: Right Lower Extremity (RLE);Left Lower Extremity (LLE) (08/29/241999) Edema Assessment: +2 - Description (08/25/241929) RLE Edema Assessment: +2 - Description (08/29/241999) LLE Edema Assessment: +2 - Description (08/29/241999) Generalized Edema Assessment: +2 - Description (08/26/241932) Capillary Refill: 3 seconds (08/28/242008) Additional Cardiac Information: no GI/: GI WNL: WNL - within normal limits (08/30/241999) Abdomen: Distended;Rounded (08/30/24 0375) Additional GI/ Information: no Integumentary: Integumentary WNL: X - Exceptions to WNL as documented below (08/30/241999) Skin Description: Dry;Warm (08/30/241999) Skin Color: Pale (08/30/241999) Skin Variations: Other - Describe (mid line in) (08/30/241999) Al Score (auto-calculation): 22 (08/30/241999) Skin Breakdown (including Red, Non-Blanchable Areas) Present on Admission?: No (08/21/24 7504) Additional Integumentary Information: no Restraints: No orders of the defined types were placed in this encounter. * Barbra Bansal RN - 08/30/2024 11:19 AM EST INPATIENT TO INTERVENTIONAL RADIOLOGY (IR) HANDOFF COMMUNICATION NOTE [facility] [address] [address] Name: Santiago Amador Age: [age] year old [place] [facility] [place] Date: 08/30/2024 Safety Concerns: Fall Risk Allergies: Penicillins Contrast Dye Allergy? no Allergy prepped? No Code Status: Full Code Isolation: N/a Report from: Barbra Bansal RN at phone extension [phone] Patient arriving via: Bed Reason for SBAR handoff: Procedure Patient is alert and oriented and able to sign consent (if not, contact lens blocker and number): Yes Patient NPO: yes Patient NPO since: midnight, had meds this am with water Patient wears CPAP, BiPAP, or oxygen overnight: no Patient has difficulty breathing when lying flat? no Emotional/Personal Anxiety? no Last as needed pain medication given at (time): N/a Situation/Background Admission date: 08/21/2024 Patient Service: Med W [[id number]] Attending Provider: Lolita Coyne MD Admitting diagnosis: GI bleed Alcoholic cirrhosis (HCC) Chief Complaint: No chief complaint on file. Problem list: Principal Problem: Symptomatic anemia Active Problems: Alcoholic cirrhosis (HCC) Ascites due to alcoholic cirrhosis (HCC) COPD, mild (HCC) Kidney disease, chronic, stage IV (GFR 15-29 ml/min) (HCC) GRACIELA (acute kidney injury) (HCC) GAVE (gastric antral vascular ectasia) Severe protein-energy malnutrition (HCC) Duodenal varices Other cirrhosis of liver (HCC) Secondary esophageal varices with bleeding (HCC) Alcohol dependence, in remission (HCC) Acute hyperkalemia Hyponatremia Iron deficiency anemia due to chronic blood loss Portal hypertension (HCC) Preoperative cardiovascular examination Resolved Problems: * No resolved hospital problems. * Level of Care: Med Surg [3] Vital Signs: BP: 95/47 (08/30/24 0755) Temp: 36.7 C (98.1 F) (08/30/24 0755) Pulse: 73 (08/30/24 0755) Resp: 18 (08/30/24 0755) SpO2: 93 % (08/30/24 0755) Glucose (Bedside): 86 (08/21/24 1728) Weight: 93.4 kg (205 lb 14.6 oz) (08/30/24 0622) Height: 165.1 cm (5' 5") (08/24/24 1945) Labs: Please see Lab Flowsheet for lab values. Lab comments: no Lines: Peripheral Line Left;Upper 20 Gauge (Active) Status Capped/Locked;Flushes easily;Alcohol disinfectant cap 01/30/25 2200 Tubing Changed N/A 08/29/242199 Phlebitis Scale 0 08/29/242199 Infiltration Scale 0 08/29/242199 Site Description (Other) Without redness, swelling or drainage 08/29/242199 Site Intervention Flushed 08/29/242199 Dressing Assessment Dressing clean, dry, and intact 08/29/242199 Dressing Intervention None required 08/29/24749 Number of days: 9 Peripheral Line Left Antecubital 20 Gauge (Active) Status Capped/Locked;Flushes easily;Alcohol disinfectant cap 08/29/242199 Tubing Changed No 08/29/242199 Phlebitis Scale 0 08/29/242199 Infiltration Scale 0 08/29/242199 Site Description (Other) Without redness, swelling or drainage 08/29/242199 Site Intervention Flushed 08/29/242199 Dressing Assessment Dressing clean, dry, and intact 08/29/242199 Number of days: 1 Fall Scale: Fall Score: 35 (08/29/241999) Fall Interventions: Bed at low level;Bed alarm on;Yellow armband applied/intact and on patient;Fallrisk sign above bed;Fall risk sign outside room;Floor free of clutter;Non-skid foot covering on;Personal Alarm on and audible;Pressure sensitive pad alarm on and audible;Reoriented patient;Walk path free of obstacles (08/29/241999) Neurological: [place] Coma Scale - For patients greater than two years old Eyes Open: Spontaneous (08/29/241999) Best Verbal Response: Verbally appropriate for age (08/29/241999) Best Motor Response: Obeys commands appropriate for age (08/29/241999) Coma Score: 15 (08/29/241999) Additional Neurological Information: no Respiratory: Respiratory WNL: WNL- within normal limits (08/29/241999) Depth/Rhythm: Regular (08/28/24 1200) Dyspnea Occurance: None (08/28/241199) Effort: Unlabored (08/28/241199) Oxygen therapy/ Mechanical vent Supplemental O2 Delivery: Room Air, None (08/30/24 075) O2 flow rate: 0 L/MIN (08/30/24 075) O2 flow rate: 0 L/MIN (08/30/24 0755) Additional Respiratory Information: no Cardiac: Cardiovascular WNL: X - Exceptions to WNL as documented below (08/30/24) Heart Sounds: S1;S2 (08/30/24) Rhythm: Regular (08/30/24) RI interval: 0.19 seconds (08/30/24) QRS: 0.09 seconds (08/30/24) Extremities: +Sensation;Right;Left;Upper;Lower (08/29/241999) Pulses Right: Dorsalis Pedis +;Radial + (08/29/241999) Pulses Left: Dorsalis Pedis +;Radial + (08/29/241999) Edema Location: Right Lower Extremity (RLE);Left Lower Extremity (LLE) (08/29/241999) Edema Assessment: +2 - Description (08/25/241929) RLE Edema Assessment: +2 - Description (08/29/241999) LLE Edema Assessment: +2 - Description (08/29/241999) Generalized Edema Assessment: +2 - Description (08/26/241932) Capillary Refill: 3 seconds (08/28/242008) Additional Cardiac Information: no GI/: GI WNL: X - Exceptions to WNL as documented below (08/29/241999) Abdomen: Distended;Rounded (08/29/241999) Additional GI/ Information: no Integumentary: Integumentary WNL: WNL - within normal limits (08/29/241999) Skin Description: Warm;Dry (08/28/242008) Skin Color: Pale (08/27/24 0800) Skin Variations: Other - Describe (scattered scabs on arms) (08/28/242008) Al Score (auto-calculation): 20 (08/29/241999) Skin Breakdown (including Red, Non-Blanchable Areas) Present on Admission?: No (08/21/24 6573) Additional Integumentary Information: no Restraints: No orders of the defined types were placed in this encounter. * Mariana Rondon LPN - 08/28/2024 1:31 PM EST Patient sitting up in stretcher. Patient offered drink, and is tolerating P.O. fluids well. * Mariela Alvarez RN - 08/28/2024 11:59 AM EST Procedure being completed under general anesthesia. Please see anesthesia record for medications and vital signs. * Cielo Coreas RN - 08/28/2024 8:55 AM EST IP TO PERIOP HANDOFF COMMUNICATION NOTE [address] [address] Name: Santiago Amador AGE: [age] year old [place] [facility] [place] Date: 08/28/2024 Attention to: Cruz RN Report from: Cielo Coreas RN Patient arriving via: Bed Time of Call: 8:57 AM Phone Ext.: [phone] Reason for SBAR handoff: Procedure/Diagnostic/Treatment Consent: Emotional/Personal Events & Special Needs: n/a Allergies: Penicillins PMH: Past Medical History: Diagnosis Date Alcoholic cirrhosis (HCC) 12/19/2023 Alcoholism (HCC) Ascites due to alcoholic cirrhosis (HCC) 12/19/2023 COPD, mild (HCC) 12/19/2023 Current smoker Family history of colon cancer paternal grandfather PSH: Past Surgical History: Procedure Laterality Date IR VENOUS INTERVENTION 05/10/2024 REMOVAL OF TONSILS, UNDER AGE 14 Isolation: Situation/Background Admission Date: 08/21/2024 Patient Service: Med W Attending: Lolita Coyne MD Level of Care: Med Surg [3] Assessment Vital Signs: BP: 112/70 (08/28/24 0807) Temp: 36 C (96.8 F) (08/28/24 08) Pulse: 63 (08/28/24 08) Resp: 18 (08/28/24 08) SpO2: 100 % (08/28/24 08) Glucose (Bedside): 86 (08/21/24 1728) Lines: Peripheral Line Left;Upper 20 Gauge (Active) Status Capped/Locked;Alcohol disinfectant cap 08/28/24734 Tubing Changed N/A 08/28/24734 Phlebitis Scale 0 08/28/24734 Infiltration Scale 0 08/28/24734 Site Description (Other) Without redness, swelling or drainage 08/28/24734 Site Intervention None required 08/28/24734 Dressing Assessment Dressing clean, dry, and intact 08/28/24734 Dressing Intervention None required 08/28/24734 Number of days: 7 Restraints: No orders of the defined types were placed in this encounter. Labs: Please see Lab Flowsheet for lab values. Lab Comments: n/a Diet: Orders Placed This Encounter Procedures NPO After 2400 Except Meds NPO: Additional Diet Information: n/a Intake and Output: Intake/Output Summary (Last 24 hours) at 08/28/2024 0857 Last data filed at 08/28/2024 0845 Gross per 24 hour Intake 1070 ml Output 1150 ml Net -80 ml Belongings Remaining with Patient: glasses What were AM meds taken with: Time of last pain medication: n/a Med: n/a Time of last antibiotic: n/a Med: n/a Time of last skin assessment: 0800 Pressure injuries or areas of concern: n/a Neurological: Neuro WNL: WNL - within normal limits (08/28/24734) Speech: Clear (08/27/24 08) Level of Consciousness: Alert (08/28/24 0400) Head and Face: Symmetrical (08/24/241944) RUE Motor Strength: 5-Active movement with full resistance (08/27/24 08) RLE Motor Strength: 5-Active movement with full resistance (08/27/24 08) LUE Motor Strength: 5-Active movement with full resistance (08/27/24 08) LLE Motor Strength: 5-Active movement with full resistance (08/27/24 08) Right Pupil Size (mm): 3 (08/27/241954) Right Pupil Reaction: Reactive (08/27/241954) Left Pupil Size (mm): 3 (08/27/241954) Left Pupil Reaction: Reactive (08/27/241954) Coma Score: 15 (08/28/24734) Respiratory: Respiratory WNL: WNL- within normal limits (08/28/24734) Oxygen therapy/ Mechanical vent Supplemental O2 Delivery: Room Air, None (08/28/24806) Cardiac: Cardiovascular WNL: X - Exceptions to WNL as documented below (08/28/24734) Heart Sounds: S1;S2 (08/25/241929) Rhythm: NSR (08/28/24799) RI interval: 0.2 seconds (08/28/24799) QRS: 0.09 seconds (08/28/24799) Extremities: +Sensation;Right;Left;Upper;Lower (08/27/24799) Pulses Right: Dorsalis Pedis + (08/27/24799) Pulses Left: Dorsalis Pedis + (08/27/24799) Edema Location: Right Lower Extremity (RLE);Left Lower Extremity (LLE) (08/28/24734) Edema Assessment: +2 - Description (08/25/241929) RLE Edema Assessment: +2 - Description (08/28/24734) LLE Edema Assessment: +2 - Description (08/28/24734) Generalized Edema Assessment: +2 - Description (08/26/241932) Capillary Refill: 3 seconds (08/27/241954) GI: GI WNL: X - Exceptions to WNL as documented below (08/28/24734) Abdomen: Distended;Rounded (08/28/24734) : WNL: WNL - within normal limits (08/28/24734) Urine Description: Yellow (08/27/241954) Integumentary: Integumentary WNL: WNL - within normal limits (08/28/24734) Skin Description: Warm;Dry (08/27/241954) Skin Color: Pale (08/27/24799) Skin Variations: Other - Describe (scattered scabs) (08/27/241954) Al Score (auto-calculation): 19 (08/28/24699) Additional Assessment Information: n/a * Moreno Riley RN - 08/21/2024 11:19 PM EST Dual Licensed Skin Assessment completed by Moreno Adam and Shayne Garcia. The patient is/has a N/A Skin Breakdown (includes non blanchable erythema): No Patient has multiple scabs on arms,back, legs,and abdomen documented in this encounter Miscellaneous Notes * Ancillary Progress Note - Heber Soni RN - 09/02/2024 9:19 AM EST CARE MANAGEMENT - ADULT DISCHARGE [place] [facility] [place] [address] Name: Santiago Amador [place] [facility] [place] Date: 09/02/2024 Time: 9:19 AM The following coordination of care and discharge plan has been coordinated with the care team, patient, family and/or caregiver according to the patients needs and preferences. Discharge Discharge Second Notice Important Message from Medicare delivered: Not Applicable (09/02/24917) Patient declined post-hospital transition of care recommendation: N/A (09/02/24917) Final Discharge Plan (Complete only at time of Discharge): Home - Self Care (09/02/24918) Destination - Admitted Since 08/21/2024 No services have been selected for the patient. Narrative: Pt discussed in IDT Rounds today. Discussed with Dr Coyne this morning. Heart cath completed. IR s/p paracentesis and variceal embolization on 08/31 Pt declining TIPS procedure. Receiving 1u blood today for Hgb= 6.9 AMPAC= 24 Discharging home today Pt discharging to home. No needs identified by CM. Family/friends anticipated to provide discharge transportation. Please contact CM with any concerns. Please contact CM with any further concerns. * Care Plan - Alexis Deleon RN - 09/02/2024 4:04 AM EST Clinical Goal(s): patient will remain free from falls on day shift. (09/01/24 1500) Possible barriers to meeting goal(s)/advancing plan of care: Admitting Dx Stability of the patient: Moderately stable - low risk of patient condition declining or worsening Summary regarding today's goal(s): Met: patient did not fall throughout the day Recommendations: continue plan of care * Care Plan - Alexis Deleon RN - 09/01/2024 4:33 AM EST Clinical Goal(s): patient will remain free from falls on day shift (08/31/24 0700) Possible barriers to meeting goal(s)/advancing plan of care: Admitting Dx Stability of the patient: Moderately stable - low risk of patient condition declining or worsening Summary regarding today's goal(s): Met: Patient remain free of falls during the day Recommendations: Continue plan of care * Care Plan - Alexis Deleon RN - 08/31/2024 4:46 AM EST Clinical Goal(s): Pt will remain free of falls (08/29/24 0700) Possible barriers to meeting goal(s)/advancing plan of care: admitting Dx Stability of the patient: Moderately stable - low risk of patient condition declining or worsening Summary regarding today's goal(s): Met: patient was free from falls this shift Recommendations: Continue plan of care * Ancillary Progress Note - Heber Soni RN - 08/30/2024 2:39 PM EST CARE MANAGEMENT - ADULT TRANSITION NOTE [facility] [place] [address] Name: Santiago Amador [place] [facility] [place] Date: 08/30/2024 Time: 2:40 PM Risk Stratification Risk Stratification Psycho Social / Medical Concerns Identified: Adjustment to illness/injury (08/22/24 1324) Readmission Risk Score: 24.12 (08/30/24 1200) AM-PAC Score With Stairs : 23 (08/28/24 0800) Caregiver Information Emergency Contacts None on File Other Contacts Name Relation Home Work Mobile Cheri Angeles Friend [phone] Manuela Shen [phone] Transition of Care Checklist Transition of Care Checklist (aka Readmission Risk Score) Discharge Disposition: Home (08/22/24 1325) Home or Home w/Home Health: High (18-33%) (08/22/24 1325) Narrative: Pt discussed in IDT Rounds today. Discussed with Dr Coyne. Not medically ready Upper and lower Endoscopy completed 08/28 Heart cath completed 08/29 Possible TIPS procedure pending. NPO for IR embolization and paracentesis today. AMPAC= 23 Patient wishing to discharge by Monday2024 d[birth year] his birthday per GI Progress note today. Please contact CM with any further concerns. Anticipated Transportation at Discharge: family/friend Patient/Family Expectations: home Transition Planning Transition Planning Transition Plan/Considerations: Needs uncertain at this time - Continue monitoring for needs;Discussed at Interdisciplinary Team / Boost Rounds (08/22/241324) Additional Considerations: none Care Management will continue to monitor and assist with discharge planning needs * Care Plan - Alexis Deleon RN - 08/30/2024 5:10 AM EST Clinical Goal(s): Pt will remain free of falls (08/29/24 0700) Possible barriers to meeting goal(s)/advancing plan of care: Admitting Dx Stability of the patient: Moderately stable - low risk of patient condition declining or worsening Summary regarding today's goal(s): Met: patient did not fall this shift Recommendations: Continue plan of care * Communication - Radha Gan DO - 08/29/2024 4:04 PM EST Cath results reviewed with my attending. Will discuss proceeding with TIPSS for duodenal variceal bleeding and discuss further with IR. * Ancillary Progress Note - Fadi Green RN - 08/29/2024 3:01 PM EST [address] [address] Ancillary Progress Note Patient Name: Santiago Amador Date: 08/29/2024 Patient will be escorted to [facility], report given to Roya COLMENARES. We performed a Diagnostic Cardiac Catheterization procedure on this patient.. The right brachial vein was used for access with a 6 Pashto sheath. Manual pressure was held for 5 minutes and hemostasis was obtained. There is no hematoma and no ooze from the cath site noted. Sterile Gauze and Tegaderm dressing applied to site Distal pulses were palpated and instructions to patient were given. There were no complications during the case. Please see the MAR for the medications that were given. See Cath Procedure Log for patient vitals during the case. * Communication - Deborah Parsons DO - 08/29/2024 2:27 PM EST INFORMED CONSENT FOR CARDIAC CATH AND INTERVENTIONAL PROCEDURES: Dr. Epps discussed with patient the alternatives to cardiac cath including medical therapy and if appropriate exercise testing. Dr. Epps discussed the risks of cath including 09/999 , MA, CVA and 2/100 risk of allergic reaction, bleeding, infection, arrhythmia requiring shock, damage to artery requiring surgery or amputation, radiation skin gonzales. Dr. Epps discussed technique of catheterization. The patient indicated understanding and a preference for proceeding with catheterization considering these factors. * Ancillary Progress Note - Heber Soni RN - 08/29/2024 12:04 PM EST CARE MANAGEMENT - ADULT TRANSITION NOTE [address] [place] [address] Name: Santiago Amador [place] [facility] [place] Date: 08/29/2024 Time: 12:04 PM Risk Stratification Risk Stratification Psycho Social / Medical Concerns Identified: Adjustment to illness/injury (08/22/24 1324) Readmission Risk Score: 23.81 (08/29/24 1200) AM-PAC Score With Stairs : 23 (08/28/24 0800) Caregiver Information Emergency Contacts None on File Other Contacts Name Relation Home Work Mobile Cheri Milnereller Friend [phone] Manuela Shen Sibling [phone] Transition of Care Checklist Transition of Care Checklist (aka Readmission Risk Score) Discharge Disposition: Home (08/22/241324) Home or Home w/Home Health: High (18-33%) (08/22/24 132) Narrative: Pt discussed in IDT Rounds today. Not medically ready. S/p EGD/Colonoscopy 08/28. Expect heart cath today- NPO AMPAC= 23 Please contact CM with any further concerns. Anticipated Transportation at Discharge: family/friend Patient/Family Expectations: home Transition Planning Transition Planning Transition Plan/Considerations: Needs uncertain at this time - Continue monitoring for needs;Discussed at Interdisciplinary Team / Boost Rounds (08/22/241324) Additional Considerations: none Care Management will continue to monitor and assist with discharge planning needs * Communication - Karli Vale MD - 08/29/2024 10:49 AM EST INPATIENT CARDIAC CATHETERIZATION CHECKLIST Case Request Details Requested Procedure Right heart catheterization Indication Pre-liver transplant Attending Physician Lolita oCyne MD Patient Condition Patient Able to Consent? If no, ensure patient is accompanied by a family member Yes Full Code? Yes Hemodynamically Stable? Yes Oxygen Requirement No Oxygen Requirement Able to tolerate lying flat? Yes NPO for at least 6 hours? If no, when was last PO intake Yes If Female <55 years old, negative test, total hysterectomy, or last menses >1 year?N/A Allergies Allergy to dye? No Allergy to aspirin? No Allergy to heparin? No Labs Last Creatinine 1.4 Last Hemoglobin 8.8 Last Platelet Count 171 Last INR 1.3 Medications On Oral Anticoagulant? If yes, when was last dose No Last Administered dose of Aspirin None Other Information Access Site Limitations? (ie: prior failed attempts, known access-related PAD, tortuosity, scar, rash/infection, stent/graft/endartectomy, AV fistula, severe raynaud's, IVC Filter) No CABG Anatomy and Patency, if Applicable N/A LVEF, Date 55%, 08/21/2024 Case Specific Considerations? (ie: LV thrombus, aortic mural thrombus, aortic dissection, aortic valve vegetation/thrombus, altered mentation, agitation) None * Care Plan - Cielo Coreas RN - 08/29/2024 9:15 AM EST Clinical Goal(s): Pt will remain free of falls (08/29/24 0700) Possible barriers to meeting goal(s)/advancing plan of care: Pt condition Stability of the patient: Moderately stable - low risk of patient condition declining or worsening Summary regarding today's goal(s): Met: Pt remains free of falls Recommendations: Continue falls precautions * Care Plan - Gena Angela, DARRIAN - 08/29/2024 1:21 AM EST Clinical Goal(s): pt will remain free of falls and injury during this shift (08/28/24 2300) Possible barriers to meeting goal(s)/advancing plan of care: recent drop in hem requiring 1u of prbc Stability of the patient: Moderately stable - low risk of patient condition declining or worsening Summary regarding today's goal(s): Met: pt remained free from injury and falls Recommendations: implement fall precaution interventions, continue with current plan of care * Communication - Radha Gan DO - 08/28/2024 2:42 PM EST BRIEF NOTE - GASTROENTEROLOGY and HEPATOLOGY SP EGD/colonscopy Impression: - Grade I and small (< 5 mm) esophageal varices with no bleeding and no stigmata of recent bleeding. - 3 cm hiatal hernia. - A large amount of food (residue) in the stomach. - Portal hypertensive gastropathy. - Blood in the duodenal bulb. 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 - Erythematous duodenopathy. Suspect that his duodenal varices are bleeding or oozing on and off. Although MELD is high, given the anemia, would reconsider TIPSS candidacy. I discussed this with the patient, especially in regards to that we would also need to check his heart to make sure he would be able to safely tolerate the TIPSS procedure. He is asking if the TIPSS procedure would be able to be done closer to home. Discussed that right heart cath would be only able to be done here. I discussed that this would help prevent further bleeding and also help with improving his ascites.There are risks to this procedure however, given his high MELD which as also been mostly driven by sodium and GRACIELA on CKD, (significantly improving) Recommendations Diet:NPO after MN to plan for Right heart cath Will discuss further IR/invasive procedures with patient Ordered pro BNP Discussed with Dr. Munson, cardiology team, and with IR. * Ancillary Progress Note - Heber Soni RN - 08/28/2024 12:19 PM EST CARE MANAGEMENT - ADULT TRANSITION [place] [facility] [place] [address] Name: Santiago Amador Location: [facility] HFAM/Endo Date: 08/28/2024 Time: 12:19 PM Risk Stratification Risk Stratification Psycho Social / Medical Concerns Identified: Adjustment to illness/injury (08/22/24 1324) Readmission Risk Score: 23.72 (08/28/24 1201) AM-PAC Score With Stairs : 23 (08/28/24 0800) Caregiver Information Emergency Contacts None on File Other Contacts Name Relation Home Work Mobile Cheri Angeles Friend [phone] AcKeshaManuela Sibling [phone] Transition of Care Checklist Transition of Care Checklist (aka Readmission Risk Score) Discharge Disposition: Home (08/22/24 1325) Home or Home w/Home Health: High (18-33%) (08/22/24 1325) Narrative: Pt discussed in IDT Rounds today. Not medically ready. Per Nursing, required 1u pRBC for Hgb 6.4 yesterday. Cardiac catherization cancelled d/t low Hgb. Pt to Endoscopy today for Colonoscopy. AMPAC= 23 CM following for arising discharge needs- none anticipated at this time. Please contact CM with any further concerns. Anticipated Transportation at Discharge: family/friend Patient/Family Expectations: home Transition Planning Transition Planning Transition Plan/Considerations: Needs uncertain at this time - Continue monitoring for needs;Discussed at Interdisciplinary Team / Boost Rounds (08/22/241324) Additional Considerations: none Care Management will continue to monitor and assist with discharge planning needs * Care Plan - Cielo Coreas RN - 08/28/2024 9:14 AM EST Clinical Goal(s): Pt will remain free of falls (08/28/24 0700) Possible barriers to meeting goal(s)/advancing plan of care: Pt condition Stability of the patient: Moderately stable - low risk of patient condition declining or worsening Summary regarding today's goal(s): Met: Pt remains free of falls Recommendations: Continue falls precautions * Care Plan - Gena Angela RN - 08/28/2024 12:11 AM EST Clinical Goals(s): pt will remain free from injuries during this shift Possible barriers to meeting goal(s)/advancing plan of care: acute drop in hemoglobin on 08/27 requiring 1 unit of prbc Stability of the patient: Moderately stable - low risk of patient condition declining or worsening Summary regarding today's goal(s): Met: pt remained free from injury during this shift Recommendations: continue with current plan of care, implement fall prevention interventions * Communication - Karli Vale MD - 08/27/2024 6:50 PM EST BRIEF CARDIOLOGY UPDATE I discussed his case with Hepatology today. Given acute decline in hemoglobin, the team we will pursue endoscopy to rule out variceal bleeding as a cause of his acute drop in hemoglobin. We were asked to defer an ischemic workup by Hepatology in the setting of possible active hemorrhage. Cardiology will remain available and continue to follow along. Once the patient is stabilized, we will be happy to pursue left and right heart catheterization as part of pre-transplantation workup. * Care Plan - Cande Young RN - 08/27/2024 6:16 PM EST Clinical Goal(s): Patient will remain free from falls/injury this shift (08/27/24 1500) Possible barriers to meeting goal(s)/advancing plan of care: Unfamiliar environment, low hgb Stability of the patient: Moderately stable - low risk of patient condition declining or worsening Summary regarding today's goal(s): Met: Patient remained free from falls/injury this shift Recommendations: Continue with current plan of care * Ancillary Progress Note - Heber Soni RN - 08/27/2024 9:44 AM EST CARE MANAGEMENT - ADULT TRANSITION NOTE [facility] [place] [address] Name: Santiago Amador [place] [facility] [place] [facility] Date: 08/27/2024 Time: 9:44 AM Risk Stratification Risk Stratification Psycho Social / Medical Concerns Identified: Adjustment to illness/injury (08/22/24 1324) Readmission Risk Score: 23.12 (08/27/24 0800) AM-PAC Score With Stairs : 23 (08/26/24 1959) Caregiver Information Emergency Contacts None on File Other Contacts Name Relation Home Work Mobile Cheri Angeles Friend [phone] Manuela Shen [phone] Transition of Care Checklist Transition of Care Checklist (aka Readmission Risk Score) Discharge Disposition: Home (08/22/241324) Home or Home w/Home Health: High (18-33%) (08/22/24 132) Narrative: Pt discussed in IDT Rounds today. Not medically ready NPO for cardiac cath today AMPAC= 23 Please contact CM with any further concerns. Anticipated Transportation at Discharge: family/friend Patient/Family Expectations: home Transition Planning Transition Planning Transition Plan/Considerations: Needs uncertain at this time - Continue monitoring for needs;Discussed at Interdisciplinary Team / Boost Rounds (08/22/241324) Additional Considerations: none Care Management will continue to monitor and assist with discharge planning needs * Communication - Karli Vale MD - 08/27/2024 7:38 AM EST INPATIENT CARDIAC CATHETERIZATION CHECKLIST Case Request Details Requested Procedure Left heart catheterization, Coronary angiography, and Right heart catheterization Indication Pre-Liver transplant Eval Attending Physician Darcie Hernandez MD Patient Condition Patient Able to Consent? If no, ensure patient is accompanied by a family member Yes Full Code? Yes Hemodynamically Stable? Yes Oxygen Requirement No Oxygen Requirement Able to tolerate lying flat? Yes NPO for at least 6 hours? If no, when was last PO intake Yes If Female <55 years old, negative test, total hysterectomy, or last menses >1 year?N/A Allergies Allergy to dye? No Allergy to aspirin? No Allergy to heparin? No Labs Last Creatinine 1.6 Last Hemoglobin 6.4 - pending recheck Last Platelet Count 118 Last INR 1.4 Medications On Oral Anticoagulant? If yes, when was last dose No Last Administered dose of Aspirin None Other Information Access Site Limitations? (ie: prior failed attempts, known access-related PAD, tortuosity, scar, rash/infection, stent/graft/endartectomy, AV fistula, severe raynaud's, IVC Filter) No CABG Anatomy and Patency, if Applicable N/A LVEF, Date 55%, 08/21/2024 Case Specific Considerations? (ie: LV thrombus, aortic mural thrombus, aortic dissection, aortic valve vegetation/thrombus, altered mentation, agitation) None * Care Plan - Gena Angela RN - 08/27/2024 3:36 AM EST Clinical Goal(s): pt will have adequate pain control during this shift (08/26/24 0324) Possible barriers to meeting goal(s)/advancing plan of care: recent paracentesis Stability of the patient: Moderately stable - low risk of patient condition declining or worsening Summary regarding today's goal(s): Met: pt did not have to use PRN pain medication during this shift Recommendations: continue with current plan of care * Ancillary Progress Note - Heber Soni RN - 08/26/2024 3:38 PM EST CARE MANAGEMENT - ADULT TRANSITION NOTE [facility] [place] [address] Name: Santiago Amador [place] [facility] [place] [facility] Date: 08/26/2024 Time: 3:38 PM Risk Stratification Risk Stratification Psycho Social / Medical Concerns Identified: Adjustment to illness/injury (08/22/24 1324) Readmission Risk Score: 22.87 (08/26/24 1201) AM-PAC Score With Stairs : 24 (08/25/24 1930) Caregiver Information Emergency Contacts None on File Other Contacts Name Relation Home Work Mobile Cheri Angeles Friend [phone] Manuela Shen Sibling [phone] Transition of Care Checklist Transition of Care Checklist (aka Readmission Risk Score) Discharge Disposition: Home (08/22/24 1325) Home or Home w/Home Health: High (18-33%) (08/22/24 1325) Narrative: Pt discussed in IDT Rounds today. Not medically Cardiology following. NPO after midnight for possible L & R heart cath tomorrow 08/27 vs stress test. Endoscopy on hold. Likely Cologuard as OP. Transplant work up. Trending Hgb, hyponatremia, and hyperkalemia. AMPAC= 24 CM following for arising discharge needs. Please contact CM with any further concerns. Anticipated Transportation at Discharge: family/friend Patient/Family Expectations: home Transition Planning Transition Planning Transition Plan/Considerations: Needs uncertain at this time - Continue monitoring for needs;Discussed at Interdisciplinary Team / Boost Rounds (08/22/24 1325) Additional Considerations: none Care Management will continue to monitor and assist with discharge planning needs * Care Plan - Cecil Montez RN - 08/26/2024 2:02 AM EST Clinical Goal(s): Patient will be free from injury this shift (08/25/24 0700) Possible barriers to meeting goal(s)/advancing plan of care: medical diagnosis, age and weakness Stability of the patient: Moderately stable - low risk of patient condition declining or worsening Summary regarding today's goal(s): Met: goal met Recommendations: continue to reinforce fall precautions. * Care Plan - Cecil Montez RN - 08/25/2024 1:22 AM EST Clinical Goal(s): Patient will remain free from injury this shift. (08/24/24 0700) Possible barriers to meeting goal(s)/advancing plan of care: surgical intervention and medical diagnosis Stability of the patient: Moderately stable - low risk of patient condition declining or worsening Summary regarding today's goal(s): Met: goal met Recommendations: continue to reinforce fall precautions. * Ancillary Progress Note - Heber Soni RN - 08/23/2024 2:07 PM EST CARE MANAGEMENT - ADULT TRANSITION NOTE [facility] [place] [address] Name: Santiago Amador [place] [facility] [place] [facility] Date: 08/23/2024 Time: 2:07 PM Risk Stratification Risk Stratification Psycho Social / Medical Concerns Identified: Adjustment to illness/injury (08/22/24 1324) Readmission Risk Score: 23.12 (08/23/24 1200) AM-PAC Score With Stairs : 24 (08/23/24 1123) Caregiver Information Emergency Contacts None on File Other Contacts Name Relation Home Work Mobile Cheri Angeles Friend [phone] Manuela Shen [phone] Transition of Care Checklist Transition of Care Checklist (aka Readmission Risk Score) Discharge Disposition: Home (08/22/24 1325) Home or Home w/Home Health: High (18-33%) (08/22/24 1325) Narrative: Pt discussed in IDT Rounds today. Not medically ready. Trending Hgb- received additional blood transfusion yesterday. Hgt at 7.0 on AM labs today. AMPAC= 24 Plan per Medicine progess note: Status post paracentesis on 08/22/2024, 9 L fluid was removed. Hepatology on board. Plan was to do endoscopic evaluation today but canceled by GI/Hepatology in view low sodium level. Nephrology consulted for GRACIELA on CKD and recommendations appreciated. Cardiology consulted for evaluation for left and right heart catheterization as a part of liver transplant workup. Anticipated discharge home > 2 days. CM to continued ot follow for arising discharge needs. Please contact CM with any further concerns. Anticipated Transportation at Discharge: family/friend Patient/Family Expectations: home Transition Planning Transition Planning Transition Plan/Considerations: Needs uncertain at this time - Continue monitoring for needs;Discussed at Interdisciplinary Team / Boost Rounds (08/22/241324) Additional Considerations: none Care Management will continue to monitor and assist with discharge planning needs * Ancillary Progress Note - Heber Soni RN - 08/22/2024 1:26 PM EST CARE MANAGEMENT - ADULT TRANSITION NOTE [facility] [place] [address] Name: Santiago Amador [place]: [facility] [place] [facility] Date: 08/22/2024 Time: 1:26 PM Risk Stratification Risk Stratification Psycho Social / Medical Concerns Identified: Adjustment to illness/injury (08/22/24 1324) Readmission Risk Score: 22.81 (08/22/24 1201) AM-PAC Score With Stairs : 23 (08/22/24 0840) Caregiver Information Emergency Contacts None on File Other Contacts Name Relation Home Work Mobile Cheri Angeles Friend [phone] Manuela Shen Sibling [phone] Transition of Care Checklist Transition of Care Checklist (aka Readmission Risk Score) Discharge Disposition: Home (08/22/24 1325) Home or Home w/Home Health: High (18-33%) (08/22/24 1325) Narrative: Pt discussed in IDT Rounds today. Chart reviewed. Patient discussed with Nursing. No Care Management needs identified at this time. Care Management will continue to follow. Transferred from OSH where presented with Hgb= 3.3 Hgb currently 6.3 after transfusions. GI consulted- Nuclear Med study and Endoscopy likely. Critical Care Med consulted. Hyperkalemia Hyponatremic IV Octreotide drip currently IV Ctx History of alcohol abuse and alcoholic cirrhosis. AMPAC= 23 Lives with roommate in an apartment. Pt independent with ADLs and amb without device prior to admission. Sister Manuela health care agent. Please contact CM with any further concerns. Anticipated Transportation at Discharge: family/friend Patient/Family Expectations: home Transition Planning Transition Planning Transition Plan/Considerations: Needs uncertain at this time - Continue monitoring for needs;Discussed at Interdisciplinary Team / Boost Rounds (08/22/241324) Additional Considerations: none Care Management will continue to monitor and assist with discharge planning needs * Respiratory Progress Note - Tito Chan, [employer]MENT SUPERVISOR - 08/21/2024 4:25 PM EST PATIENT DRIVEN PROTOCOL - Respiratory Care Services [address] [address] Name: Santiago Amador [place] [facility] [place] [facility] Date: 08/21/2024 Time: 4:25 PM Patient Driven Protocol Summary: Initial evaluation performed. This Treatment Plan and medications will be reviewed by the Primary Care Team for any contraindications. Respiratory Care Treatment Plan Aerosol Therapy Treatment:: Inhaler(s) QDAY with Fluticasone Furoate (100 mcg inhalation powder / 1 inhalation) Arnuity Ellipta. to reduce work of breathing and improve pulmonary gas exchange and suppress bronchial inflammationand edema by the use of systemic steroid sparing therapy. . Pulmonary Volume Expansion Therapy: Incentive Spirometry PRN to prevent or treat alveolar consolidation and atelectasis. . The patient will be re-evaluated: No re-evaluation needed. Indications for treatment met. The Triage Level is: (Assessment Score = 0 - 5) Level 5. Triage Level Definitions: Level 1 Severe Respiratory/Airway Compromise Level 2 Moderate Respiratory/Airway Compromise or high risk for pulmonary complications Level 3 Mild Respiratory/Airway Compromise or moderate risk for pulmonary complications Level 4 Episodic Respiratory/Airway Compromise or low risk for pulmonary complications Level 5 No Respiratory/Airway Compromise Triage 1 Triage 2 Triage 3 Triage 4 Triage 5 greater than 20 16 - 20 11 - 15 6 - 10 0 - 5 Medical Record Assessment Clinical Findings Pulmonary Status: 1 - Smoking less than 1 pack/day or quit less than 5 years ago Surgical Status: 0 - No Surgical History Chest X-Ray: 0 - Not Performed or performed greater than 3 days ago Assessment Score: 1 Patient Assessment Clinical Findings Respiratory Pattern: 0 - RR 12 - 20; Patient only gets breathless with strenuous exercise. Breath Sounds: 0 - Clear to auscultation Cough Effectiveness: 0 - Strong non-productive Sputum Production: 0 - No sputum production Level of Activity: 1 - Ambulatory with assist O2 needed to keep SpO2 greater than or equal to 92%: 0 - Room Air Assessment Score: 1 Total Assessment Score: 2 Breath Sounds: Inspiratory and expiratory clear bilaterally.. Cough and Sputum: An effective cough produced no sputum... CXR: NA. Vital Signs: Resp: 18 (08/21/24 1621) Pulse: 63 (08/21/24 1550) Temp: 36.3 C (97.4 F) (08/21/24 1550) BP: 109/58 (08/21/24 1550) SpO2: 99 % (08/21/24 1550) PFT: Minimal Predicted IC: 1.03 L. Inspiratory capacity: 2.0 L. Primary Service: Med W. Admitting Diagnosis: GI bleed [K92.2] Alcoholic cirrhosis (HCC) [K70.30] Pulmonary Diagnosis: COPD. Prescriptions/Home Medications/Durable Medical Equipment: Arnuity. documented in this encounter Plan of Treatment Upcoming Encounters Date Type Department Care Team (Latest Contact Info) Description 09/11/2024 10:20 AM EST Office Visit [facility] [address] [facility] [place] [address] Rina Neil PA-C [address] [place] [address] 09/26/2024 8:00 AM EST Hospital Encounter [facility] [place] Cardiac Recovery Suite Waiting Unit, [address] [place] [address] Rebeca Epps MD [address] [place] [address] 09/26/2024 8:00 AM EST - 09/26/2024 9:00 AM EST Surgery [facility] Waiting [facility] [place] Cardiac Recovery Suite Waiting Unit, [address] [place] [id number] Rebeca Epps MD [address] [place] [address] CORONARY ANGIOGRAPHY W/LEFT HEART CATH 09/26/2024 8:00 AM EST [facility] [address] [place] [address] [facility] Cardiac [facility] [address] [place] [address] 01/13/2025 1:45 PM EDT Imaging Radiology [facility] [address] [place] [address] Pending Results Name Type Priority Associated Diagnoses Date /Time CULTURE, AFB Lab Routine 08/22/2024 2 :31 PM EST IR VENOUS TIPS Medical Imaging Routine 08/31 4:19 PM EST Scheduled Orders Name Type Priority Associated Diagnoses Orde r Schedule GLUCOSE METER, POINT OF CARE (COMMUNICATION ORDER) Point of Care Testing Routine As Needed until discontinued starting 08/28/2024 IR VENOUS INTERVENTION Medical Imaging Routine One Time for 1 Occurrences starting 08/30/2024 until 08/30/2024 IR PARACENTESIS Medical Imaging Routine One Time for 1 Occurrences starting 08/30/2024 until 08/30/2024 IR PARACENTESIS Medical Imaging Routine Ascites due to alcoholic cirrhosis (HCC) Ordered: 09/02/2024 CBC Lab Routine Preoperative cardiovascular examination Expected: 09/09/2024, Expires: 09/02/2025 COMPREHENSIVE METABOLIC PANEL Lab Routine Preoperative cardiovascular examination Expected: 09/09/2024, Expires: 09/02/2025 PT INR Lab Routine Preoperative cardiovascular examination Expected: 09/09/2024, Expires: 09/02/2025 Scheduled Procedures Name Priority Associated Diagnoses Date/Ti me CORONARY ANGIOGRAPHY W/LEFT HEART CATH Pre-liver transplant, listed 09/26/2024 8:00 AM EST Health Maintenance Due Date Last Done Comments DISCUSS TOBACCO CESSATION (REFER TO SMARTSET #1793) 1972 Depression Screening 1984 Albumin/Creatinine Ratio 1990 [...] COVID-19 Vaccine (1 - season) 2024 GFR 03/02/2025 09/02/2024, 08/2024, 08/31/2024, Additional history exists O2 ASSESSMENT COMPLETED IN PAST YEAR FOR COPD 08/28/2025 08/28/2024 Hgb 09/02/2025 09/02/2024, 0 08/2024, 08/31/2024, Additional history exists Phosphate 09/02/2025 [...] this encounter Medical Devices Implanted Type Area Travel Registered Nurse Oncology Device Identifier Shelf Expiration Date Model / Serial / Lot Pod Packing Coil Jsoft 45cm - [id number] Implanted:Qty: 1 on 05/10/2024 at [facility] [employer] [id number] 09/30/2031 [id number] 5 / / [id number] Azur Detachable 018 7mmx 24cm - [id number] Implanted:Qty: 1 on 05/10/2024 at [facility] [employer] [id number] 08/30/2028 [id number] / / [id number] Pod Packing Coil Jsoft 45cm - [id number] Implanted:Qty: 1 on 05/10/2024 at [facility] [employer] [id number] 12/26/2031 [id number] 5 / / [id number] Coil Radha Soft 0vqh21oo - [id number] Implanted:Qty: 1 on 05/10/2024 at [facility] [employer] [id number] 10/07/2031 [id number] / / [id number] Cath Thermodilution 6fr - [id number] Implanted:Qty: 1 on 08/29/2024 by Rebeca Epps MD at [facility] [employer] [id number] 02/18/2026 [id number] / / [id number] Coil Azur Cx Detach 3x8 - [id number] Implanted:Qty: 1 on 08/31/2024 at [facility] [employer] [facility] 04/29/2029 [id number] / / [id number] Coil Azur Cx Detach 3x8 - [id number] Implanted:Qty: 1 on 08/31/2024 at [facility] [employer] [facility] 04/29/2029 [id number] / / [id number] Coil Azur Cx Detach 2x4 - [id number] Implanted:Qty: 1 on 08/31/2024 at [facility] [employer] [facility] 05/30/2029 [id number] / / [id number] Lipiodol Injection - [id number] Implanted:Qty: 1 on 08/31/2024 at [facility] [employer]HARRIETKell[employer]x [id number] 1-2 / / documented as of this encounter Procedures Procedure Name Priority Date/Time Associated Diagnosis Comments TRANSFUSE PACKED RED BLOOD CELLS Routine 09/02/2024 8:35 AM EST HC COMPATIBILITY ELECTRONIC CROSSMATCH Routine 09/02/2024 7:25 AM EST COMPREHENSIVE METABOLIC PANEL Routine 09/02/2024 6:35 AM EST PHOSPHORUS Routine 09/02/2024 6:35 AM EST CBC Routine 09/02/2024 6:35 AM EST MAGNESIUM Routine 09/02/2024 6:35 AM EST PT INR Routine 09/02/2024 6:34 AM EST POTASSIUM, WHOLE BLOOD Routine 09/01/2024 3:41 PM EST GLUCOSE METER, POINT OF CARE LISE 09/01/2024 12:08 PM EST GLUCOSE METER, POINT OF CARE LISE 09/01/2024 10:57 AM EST GLUCOSE METER, POINT OF CARE LISE 09/01/2024 9:27 AM EST COMPREHENSIVE METABOLIC PANEL Routine 09/01/2024 6:22 AM EST PT INR Routine 09/01/2024 6:22 AM EST PHOSPHORUS Routine 09/01/2024 6:22 AM EST CBC Routine 09/01/2024 6:22 AM EST MAGNESIUM Routine 09/01/2024 6:22 AM EST POTASSIUM, WHOLE BLOOD STAT 08/31/2024 6:23 PM EST IR VENOUS TIPS Routine 08/31/2024 4:19 PM EST Procedure Note - Jyoti Santana MD / Sang Vincent DO - 08/31/2024 4:19 PM ESTThis note is in progress. PROCEDURE: 1. Coil-assisted anterograde transvenous obliteration of varices. 2. US-guided paracentesis. INDICATION: 53 year old male patient with a history of decompensatedalcoholic cirrhosis, now presenting for paracentesis and varicealembolization. ATTENDING (OPERATING PHYSICIAN): Jyoti Santana MD SCRUBBED RESIDENT (OPERATING PHYSICIAN): Sang Vincent DO SUPPORTING PROVIDER (DIESEL TRUCK MECHANIC): None. CONSENT: After a detailed discussion of the procedure, risks, benefits,and alternative treatment options, informed consent was obtained. TIME OUT: A time out procedure was performed. The patient's identificationwas verified. Informed consent with agreement of procedure, site, andposition was obtained. All necessary equipment was available prior toprocedure. CONTRAST: IV Optiray 320. COMPLICATIONS: None. ANESTHESIA: Local lidocaine. IV Versed. IV Fentanyl. SEDATION TIME: Start to end: 1312 to 1626. Qualified nurse sedationobserver Marc Duong RN. MEDICATIONS: See [facility] PROCEDURE DESCRIPTION: After survey US images of the abdomen were performed, the ascites in theright abdomen was studied. Then the access site was selected and the sitewas prepped and draped in the usual sterile fashion. The skin and deepsoft tissues were anesthetized and using image guidance, a 5 Fr vvk-nlpiomavksfw-logiml was inserted into the fluid collection. An 035 Carmona wirewas inserted into the fluid via the access and after tract dilation, an8.5 Fr locking loop catheter was inserted over the wire. The catheter wassecured to the patient and attached to suction drainage. [id number] mL of serous fluid was removed and discarded. Ultrasound was used to evaluate a recanalized umbilical vein. The abdomenprepped and draped in the usual sterile fashion. Using real-timeultrasound guidance, the umbilical vein was punctured utilizing amicropuncture needle. Ultrasound images demonstrate the micropunctureneedle tip in the vessel lumen. Digital ultrasound images were acquiredand digitally archived. The needle was removed over an 018 guidewire and exchanged for the 4 Frmicropuncture sheath. A small amount of contrast was injected, confirmingopacification of the portal veins. An 035 glidewire was advanced throughthe sheath into the splenic vein. The micropuncture sheath was removedover the wire and exchanged for a 5 Fr Ady sheath that was then advancedinto the main portal vein. A venogram was performed. A 5 Fr pigtail catheter was advanced over the wire into the splenic vein.Venogram was performed, demonstrating two prominent gastroesophagealvarices and multiple splenic varices. The pigtail catheter was removed over the wire and exchanged for a 5 FrKumpe catheter. The Kumpe catheter was used to catheterize the largestand most proximal esophageal varices and venogram was performed. An 035 Bentson wire was advanced through the Kumpe catheter. The catheterand 5 Fr Ady sheath were removed over the wire and exchanged for a 7 FrAnsel sheath. Multiple attempts were made in advancing a 6 Fr Fogartyballoon catheter into the gastroesophageal varices. The catheter wasremoved and exchanged for a 5 Fr Kumpe catheter. The shunt volume wasestimated. The varices was sclerosed with a combination of 3/2/1 mixtureof air/ 3% sodium tetradecyl sulphate (STS)/lidipol. A microcoil was thendeployed. A post-embolization venogram was performed, demonstratingcessation of antegrade flow. The Kumpe catheter was withdrawn into the splenic vein and venogram wasperformed. The Kumpe catheter was removed over the wire and exchanged fora 5 Fr pigtail catheter. Venograms were performed at the level of thesplenic and superior mesenteric veins. No abnormal gastroduodenal variceswere identified. The pigtail catheter was withdrawn to the level of the main portal veinand venogram was performed, demonstrating recanalized gastroduodenalvarices. The pigtail catheter was removed over the wire and exchanged fora 5 Fr SOS catheter. A 5 Fr SOS catheter-Bentson wire combination wasused to catheterize the origin of the gastroduodenal varices and venogramwas repeated. Multiple attempts were made in advancing a Progreat microcatheter into thedistal aspect of the varices, beyond the previously packed coils. A Gelfoam slurry was subsequently administered. Post-embolization venogramwas performed, demonstrating trimming of vessels with some residualgastroduodenal varices. Given the findings, multiple microcoils were deployed. Post-embolizationvenogram was performed, demonstrating some residual gastroduodenalvarices. All catheters and wires were removed. A purse string suture was takenaround the access site and the sheath was removed. The purse string suturewas left in place and hemostasis was achieved with a woggle vascularclosure device and manual pressure. The site was dressed. The locking mechanism of the 8.5 Fr drain was cut and the drain wasremoved. The site was dressed. The procedure was performed under the personal supervision of Dr. Downing was present for the entire procedure. FINDINGS: 1. Access: The recanalized umbilical vein is anechoic and compressible byultrasound. Ultrasound-guided access was obtained. 2. Venogram/variceal shunts: *There are two mildly prominent gastroesophageal varices. No residualantegrade flow is seen following coil and STS embolization of the larger,more proximal gastroesophageal varices. Additional splenic varices areidentified as well. *Partially recanalized gastroduodenal varices are seen arising from themain portal vein. Unable to interrogate distal varices. Residual distalflow is seen following GelFoam and coil embolization. *No abormal duodenal varices are seen arising from the superior mesentericvein. 3. Paracentesis: Large volume ascites was noted on ultrasound. Postparacentesis there is minimal residual fluid. IMPRESSION IMPRESSION: 1. Antegrade gastroesophageal and gastroduodenal variceal embolization. 2. Paracentesis. PLAN: Patient to return to floor under care of primary service. - Patient must lay flat for 2 hours post-procedure. - Closure device will be removed 09/01. - Continue to monitor HH. Transfuse as needed. - Continue current transplant work-up and medical optimization. - Will call patient in 1 week for follow-up. - Patient can be set-up for outpatient paracentesis as needed. COMPREHENSIVE METABOLIC PANEL Routine 08/31/2024 7:48 AM EST TYPE AND SCREEN Routine 08/31/2024 7:48 AM EST PT INR Routine 08/31/2024 7:48 AM EST POTASSIUM, WHOLE BLOOD Routine 08/31/2024 7:48 AM EST PHOSPHORUS Routine 08/31/2024 7:48 AM EST CBC Routine 08/31/2024 7:48 AM EST MAGNESIUM Routine 08/31/2024 7:48 AM EST TYPE AND SCREEN STAT 08/30/2024 11:[address] LIVER 4-PHASE W WO IV CONTRAST - WO ORAL CONT Routine 08/30/2024 9:28 AM EST COMPREHENSIVE METABOLIC PANEL Routine 08/30/2024 6:47 AM EST PT INR Routine 08/30/2024 6:47 AM EST PHOSPHORUS Routine 08/30/2024 6:47 AM EST CBC Routine 08/30/2024 6:47 AM EST MAGNESIUM Routine 08/30/2024 6:47 AM EST BLOOD GAS WITH CHEMISTRY, POINT OF CARE LISE 08/29/2024 2:56 PM EST AVOXIMETER, POINT OF CARE Routine 08/29/2024 2:52 PM EST AVOXIMETER, POINT OF CARE Routine 08/29/2024 2:50 PM EST COMPREHENSIVE METABOLIC PANEL Routine 08/29/2024 6:33 AM EST PT INR Routine 08/29/2024 6:33 AM EST PHOSPHORUS Routine 08/29/2024 6:33 AM EST CBC Routine 08/29/2024 6:33 AM EST MAGNESIUM Routine 08/29/2024 6:33 AM EST CARDIAC CATHETERIZATION REPORT Routine 08/29/2024 COLONOSCOPY 08/28/2024 12:30 PM EST EGD, Flexible, Diagnostic 08/28/2024 12:05 PM EST Anemia, unspecified type Colonoscopy, Diagnostic (Rectum) 08/28/2024 12:05 PM EST Anemia, unspecified type UPPER GI ENDOSCOPY 08/28/2024 12:00 PM EST BNP (NT-PROBNP) Add-on 08/28/2024 9:22 AM EST COMPREHENSIVE METABOLIC PANEL Routine 08/28/2024 9:22 AM EST PT INR Routine 08/28/2024 9:22 AM EST PHOSPHORUS Routine 08/28/2024 9:22 AM EST CBC Routine 08/28/2024 9:22 AM EST MAGNESIUM Routine 08/28/2024 9:22 AM EST HEMOGLOBIN AND HEMATOCRIT PANEL Routine 08/27/2024 2:32 PM EST TYPE AND SCREEN STAT 08/27/2024 10:02 AM EST TRANSFUSE PACKED RED BLOOD CELLS STAT 08/27/2024 9:20 AM EST HC COMPATIBILITY ELECTRONIC CROSSMATCH Routine 08/27/2024 8:30 AM EST COMPREHENSIVE METABOLIC PANEL Routine 08/27/2024 6:45 AM EST PT INR Routine 08/27/2024 6:45 AM EST PHOSPHORUS Routine 08/27/2024 6:45 AM EST CBC Routine 08/27/2024 6:45 AM EST MAGNESIUM Routine 08/27/2024 6:45 AM EST RI ABDOM PARACENTESIS DX/THER W/IMAGING GUIDANCE Routine 08/26/2024 4:21 PM EST Other ascites COMPREHENSIVE METABOLIC PANEL Routine 08/26/2024 3:29 AM EST PT INR Routine 08/26/2024 3:29 AM EST PHOSPHORUS Routine 08/26/2024 3:29 AM EST CBC Routine 08/26/2024 3:29 AM EST MAGNESIUM Routine 08/26/2024 3:29 AM EST COMPREHENSIVE METABOLIC PANEL Routine 08/25/2024 8:38 AM EST PT INR Routine 08/25/2024 8:38 AM EST PHOSPHORUS Routine 08/25/2024 8:38 AM EST CBC Routine 08/25/2024 8:38 AM EST MAGNESIUM Routine 08/25/2024 8:38 AM EST HEMOGLOBIN AND HEMATOCRIT PANEL Routine 08/24/2024 6:08 PM EST TRANSFUSE PACKED RED BLOOD CELLS Routine 08/24/2024 10:30 AM EST TYPE AND SCREEN STAT 08/24/2024 9:06 AM EST HC COMPATIBILITY ELECTRONIC CROSSMATCH Routine 08/24/2024 8:40 AM EST COMPREHENSIVE METABOLIC PANEL Routine 08/24/2024 7:58 AM EST PT INR Routine 08/24/2024 7:58 AM EST PHOSPHORUS Routine 08/24/2024 7:58 AM EST CBC Routine 08/24/2024 7:58 AM EST MAGNESIUM Routine 08/24/2024 7:58 AM EST CYSTATIN C WITH EGFR Add-on 08/23/2024 7:19 AM EST COMPREHENSIVE METABOLIC PANEL Routine 08/23/2024 7:19 AM EST PHOSPHORUS Routine 08/23/2024 7:19 AM EST CBC Routine 08/23/2024 7:19 AM EST MAGNESIUM Routine 08/23/2024 7:19 AM EST PT INR Routine 08/23/2024 7:18 AM EST HEMOGLOBIN AND HEMATOCRIT PANEL Routine 08/22/2024 8:41 PM EST RI ABDOM PARACENTESIS DX/THER W/IMAGING GUIDANCE Routine 08/22/2024 3:41 PM EST Ascites due to alcoholic cirrhosis (HCC) MANUAL DIFFERENTIAL, BODY FLUID Routine 08/22/2024 2:31 PM EST CULTURE, BODY FLUID, AEROBIC Routine 08/22/2024 2:31 PM EST ALBUMIN, BODY FLUID Routine 08/22/2024 2:31 PM EST PROTEIN, BODY FLUID Routine 08/22/2024 2:31 PM EST CULTURE, AFB Routine 08/22/2024 2:31 PM EST CELL COUNT WITH DIFFERENTIAL, BODY FLUID Routine 08/22/2024 2:31 PM EST CELL COUNT, BODY FLUID Routine 08/22/2024 2:31 PM EST TRANSFUSE PACKED RED BLOOD CELLS Routine 08/22/2024 1:22 PM EST XR CHEST 1 VIEW Routine 08/22/2024 8:58 AM EST Atelectasis HC COMPATIBILITY ELECTRONIC CROSSMATCH Routine 08/22/2024 8:40 AM EST PHOSPHATIDYLETHANOL , BLOOD Add-on 08/22/2024 6:01 AM EST COMPREHENSIVE METABOLIC PANEL Routine 08/22/2024 6:01 AM EST PT INR Routine 08/22/2024 6:01 AM EST PHOSPHORUS Routine 08/22/2024 6:01 AM EST CBC Routine 08/22/2024 6:01 AM EST MAGNESIUM Routine 08/22/2024 6:01 AM EST URINALYSIS, REFLEX TO CULTURE Routine 08/21/2024 9:33 PM EST URINALYSIS, REFLEX TO CULTURE (CUP ONLY) Routine 08/21/2024 9:33 PM EST URINALYSIS, REFLEX TO CULTURE (NOT FOR NEUTROPENIC PATIENTS) Routine 08/21/2024 9:33 PM EST ELECTROLYTES, RANDOM URINE Add-on 08/21/2024 9:33 PM EST PHOSPHATIDYLETHANOL , BLOOD Routine 08/21/2024 6:22 PM EST GLUCOSE METER, POINT OF CARE LISE 08/21/2024 5:27 PM EST GLUCOSE METER, POINT OF CARE LISE 08/21/2024 3:47 PM EST POTASSIUM, WHOLE BLOOD STAT 08/21/2024 3:47 PM EST ECHO, COMPLETE (2D), TRANS-THORACIC Routine 08/21/2024 2:34 PM EST Heart failure (HCC) RESPIRATORY PATHOGEN PANEL, PCR STAT 08/21/2024 1:07 PM EST ECHO, COMPLETE (2D), TRANS-THORACIC Routine 08/21/2024 12:53 PM EST Heart failure (HCC) POTASSIUM, WHOLE BLOOD STAT 08/21/2024 12:10 PM EST LACTATE Routine 08/21/2024 12:10 PM EST CULTURE, BLOOD Routine 08/21/2024 12:10 PM EST CULTURE, BLOOD Routine 08/21/2024 12:05 PM EST RETICULOCYTE PANEL Add-on 08/21/2024 10:57 AM EST COMPREHENSIVE METABOLIC PANEL STAT 08/21/2024 10:57 AM EST TYPE AND SCREEN STAT 08/21/2024 10:57 AM EST IRON SCREEN, INCLUDING TIBC Add-on 08/21/2024 10:57 AM EST PT INR STAT 08/21/2024 10:57 AM EST PHOSPHORUS STAT 08/21/2024 10:57 AM EST LD Add-on 08/21/2024 10:57 AM EST CBC STAT 08/21/2024 10:57 AM EST MAGNESIUM STAT 08/21/2024 10:57 AM EST HAPTOGLOBIN Add-on 08/21/2024 10:57 AM EST FERRITIN Add-on 08/21/2024 10:57 AM EST HC ECG TRACING ONLY STAT 08/21/2024 10:44 AM EST Chest pain MRSA SCREEN, PCR Routine 08/21/2024 10:32 AM EST documented in this encounter Results * TRANSFUSE PACKED RED BLOOD CELLS (09/02/2024 10:56 AM EST) us Lolita Coyne MD BLXiang BANK TRANFUSE ORDERABLES Final Result * TRANSFUSE PACKED RED BLOOD CELLS (09/02/2024 10:56 AM EST) us Lolita Coyne MD Xiang BANK TRANFUSE ORDERABLES Final Result * PREPARE PACKED RED BLOOD CELLS (09/02/2024 7:25 AM EST) [facility] Unit Product Code [id number] 09/02/2024 8:15 AM EST [facility] B[facility] Unit Number [id number] 09/02/2024 8:15 AM EST LABORATORY C BLOOD BANK Unit ABO A 09/02/2024 8:15 AM EST LABORATORY C BLOOD BANK Unit Rh NEG 09/02/2024 8:15 AM EST [facility] B[facility] Unit Crossmatch Compatible 09/02/2024 7:34 AM EST LABORATORY C BLOOD BANK Unit Status IS 09/02/2024 8:15 AM EST [facility] Unit Blood Type ANEG 09/02/2024 8:15 AM EST [facility] B[facility] Unit Expiration [id number] 09/02/2024 8:15 AM EST [facility] B[facility] Unit Barcode 0600 09/02/2024 8:15 AM EST [facility] BLOOD [facility]ANK 09/02/2024 7:25 AM EST us Lolita Coyne MD BLD BANK PRODUCT ORDERABLES E dited Result - Final [facility]AT[facility] B[facility]OD [facility]ANK [address] [place] [address] * (ABNORMAL) CBC (09/02/2024 6:35 AM EST) Pathologist [facility] WBC 9.50 4.00 - 10.80 K/uL 09/02/2024 7:05 AM EST LABORATORY [facility] RBC 2.34 4.50 - 5.25 M/uL 09/02/2024 7:05 AM EST LABORATORY [facility] HGB 6.9(L) 14.0 - 16.8 g/dL 09/02/2024 7:05 AM EST LAB[facility]ORY [facility] HCT 23.2(L) 40.0 - 48.4 % 09/02/2024 7:05 AM EST LAB[facility]ORY [facility] MCV 99.1 82.0 - 99.5 fL 09/02/2024 7:05 AM EST LAB[facility]ORY [facility] MCH 29.5 27.0 - 34.0 pg 09/02/2024 7:05 AM EST [facility] MCHC 29.7 32.0 - 36.0 g/dL 09/02/2024 7:05 AM EST LAB[facility] RDW 19.3 11.5 - 15.5 % 09/02/2024 7:05 AM EST [facility] PLT 160 140 - 400 K/uL 09/02/2024 7:05 AM EST LAB[facility]ORY [facility] MPV 9.3 6.6 - 11.1 fL 09/02/2024 7:05 AM EST LAB[facility]ORY [facility] nRBCs 0 <=0 /100 WBCs 09/02/2024 7:05 AM EST [facility]ORY [facility] Blood Venous blood specimen / Unknown Venipuncture / Unknown 09/02/2024 6:35 AM EST 09/02/2024 6:55 AM EST us John Dean DO LAB BLOOD ORDERABLES Final Result [facility]ORY [facility] [address] [place] [address] * PHOSPHORUS (09/02/2024 6:35 AM EST) Phosphorus 4.3 2.5 - 4.8 mg/dL 09/02/2024 7:27 AM EST [facility] Blood Venous blood specimen / Unknown Venipuncture / Unknown 09/02/2024 6:35 AM EST 09/02/2024 6:55 AM EST [facility] Final Result [facility] [address] [place] [address] * (ABNORMAL) MAGNESIUM (09/02/2024 6:35 AM EST) Magnesium 3.0(H) 1.5 - 2.6 mg/dL 09/02/2024 7:27 AM EST [facility] Blood Venous blood specimen / Unknown Venipuncture / Unknown 09/02/2024 6:35 AM EST 09/02/2024 6:55 AM EST John Soteloilkenzie [facility] BLOOD ORDERABLES Final Result [facility] [address] [place] [address] * (ABNORMAL) COMPREHENSIVE METABOLIC PANEL (09/02/2024 6:35 AM EST) BUN 40(H) 6 - 20 mg/dL 09/02/2024 7:27 AM EST [facility] CREATININE 1.8(H) 0.6 - 1.2 mg/dL 09/02/2024 7:27 AM EST [facility] EGFR 46(L) >=60 mL/min 09/02/2024 7:27 AM EST [facility] Comment:eGFR is calculated b ased on the CKD-EPI 2020 equation. SODIUM 125(L) 135 - 146 mmol/L 09/02/2024 7:27 AM EST [facility] POTASSIUM 4.8 3.5 - 5.1 mmol/L 09/02/2024 7:27 AM EST [facility] CHLORIDE 99 98 - 107 mmol/L 09/02/2024 7:27 AM EST [facility] CO2 18(L) 22 - 32 mmol/L 09/02/2024 7:27 AM EST [facility] ANION GAP 8 7 - 15 mmol/L 09/02/2024 7:27 AM EST [facility] GLUCOSE 96 70 - 120 mg/dL 09/02/2024 7:27 AM EST LAB[facility]ORY [facility] Albumin 2.5(L) 3.8 - 5.0 g/dL 09/02/2024 7:27 AM EST LAB[facility]ORY [facility] AST 22 10 - 50 U/L 09/02/2024 7:27 AM EST LAB[facility]ORY [facility] Alkaline Phosphatase 57 35 - 130 U/L 09/02/2024 7:27 AM EST [facility] Bilirubin, Total 0.7 <=1.2 mg/dL 09/02/2024 7:27 AM EST [facility] CALCIUM 7.4(L) 8.4 - 10.2 mg/dL 09/02/2024 7:27 AM EST LAB[facility]ORY [facility] Protein 5.5(L) 6.0 - 8.3 g/dL 09/02/2024 7:27 AM EST LAB[facility]ORY [facility] ALT 12 10 - 50 U/L 09/02/2024 7:27 AM EST LAB[facility]ORY [facility] Blood Venous blood specimen / Unknown Venipuncture / Unknown 09/02/2024 6:35 AM EST 09/02/2024 6:55 AM EST us John Dean DO LAB BLOOD ORDERABLES Final Result [facility] [address] [place] [address] * (ABNORMAL) PT INR (09/02/2024 6:34 AM EST) Prothrombin Time 16.9(H) 11.6 - 15.2 seconds 09/02/2024 7:17 AM EST LAB[facility]ATORY [facility] INR 1.4(H) 0.8 - 1.2 09/02/2024 7:17 AM EST LAB[facility]ATORY [facility] Blood Venous blood specimen / Unknown Venipuncture / Unknown 09/02/2024 6:34 AM EST 09/02/2024 6:55 AM EST Narrative [facility] - 09/02/2024 7:17 AM EST Warfarin Therapy INR: 2.0-3.0 conventional anticoagulation INR: 2.5-3.5 high intensity anticoagulation John Dean DO LAB BLOOD ORDERABLES Final Result Performing Organization Address City/[facility]/ZIP Co de Phone Number [facility] [address] [place] [address] * (ABNORMAL) POTASSIUM, WHOLE BLOOD (09/01/2024 3:41 PM EST) Potassium 5.5(H) 3.5 - 5.1 mmol/L 09/01/2024 3:49 PM EST [facility] Blood Venous blood specimen / Unknown Venipuncture / Unknown 09/01/2024 3:41 PM EST 09/01/2024 3:47 PM EST Lolita Coyne MD LAB BLOOD ORDERABLES Final Re sult Performing Organization Address [facility] Co de Phone Number [facility]ATORY [facility] [address] [place] [address] * (ABNORMAL) GLUCOSE METER, POINT OF CARE (09/01/2024 12:08 PM EST) Glucose - POCT 130(H) 70 - 120 mg/dL 09/01/2024 12:15 PM EST [employer] Blood Whole blood specimen / Unknown 09/01/2024 12:08 PM EST 09/01/2024 12:15 PM EST Lolita Coyne MD LAB POINT OF CARE TE ST DOCKED DEVICE UNSOLICITED RESULTS Final Result Performing Organization Address City/[facility]/ZIP Co de Phone Number [facility] [employer] [facility] [address] [place] [address] * (ABNORMAL) GLUCOSE METER, POINT OF CARE (09/01/2024 10:57 AM EST) Glucose - POCT 137(H) 70 - 120 mg/dL 09/01/2024 10:59 AM EST [employer] Blood Whole blood specimen / Unknown 09/01/2024 10:57 AM EST 09/01/2024 10:59 AM EST Lolita Coyne MD LAB POINT OF CARE TE ST DOCKED DEVICE UNSOLICITED RESULTS Final Result [facility] [address] [place] [address] * (ABNORMAL) GLUCOSE METER, POINT OF CARE (09/01/2024 9:27 AM EST) Glucose - POCT 155(H) 70 - 120 mg/dL 09/01/2024 10:02 AM EST [employer] Blood Whole blood specimen / Unknown 09/01/2024 9:27 AM EST 09/01/2024 10:02 AM EST Lolita Coyne MD LAB POINT OF CARE TE ST DOCKED DEVICE UNSOLICITED RESULTS Final Result [facility] [address] [place] [address] * (ABNORMAL) CBC (09/01/2024 6:22 AM EST) WBC 7.73 4.00 - 10.80 K/uL 09/01/2024 6:57 AM EST [facility] RBC 2.30 4.50 - 5.25 M/uL 09/01/2024 6:57 AM EST [facility] HGB 7.1(L) 14.0 - 16.8 g/dL 09/01/2024 6:57 AM EST [facility] HCT 22.6(L) 40.0 - 48.4 % 09/01/2024 6:57 AM EST [facility] MCV 98.3 82.0 - 99.5 fL 09/01/2024 6:57 AM EST LABORATORY [facility] MCH 30.9 27.0 - 34.0 pg 09/01/2024 6:57 AM EST LABORATORY [facility] MCHC 31.4 32.0 - 36.0 g/dL 09/01/2024 6:57 AM EST LABORATORY C RDW 19.4 11.5 - 15.5 % 09/01/2024 6:57 AM EST [facility] PLT 146 140 - 400 K/uL 09/01/2024 6:57 AM EST [facility] MPV 9.2 6.6 - 11.1 fL 09/01/2024 6:57 AM EST [facility] nRBCs 0 <=0 /100 WBCs 09/01/2024 6:57 AM EST [facility] Blood Venous blood specimen / Unknown Venipuncture / Unknown 09/01/2024 6:22 AM EST 09/01/2024 6:46 AM EST oJhn Dean DO LAB BLOOD ORDERABLES Final Result LABORATORY [facility] [address] [place] [address] * PHOSPHORUS (09/01/2024 6:22 AM EST) Phosphorus 4.0 2.5 - 4.8 mg/dL 09/01/2024 7:18 AM EST [facility] Blood Venous blood specimen / Unknown Venipuncture / Unknown 09/01/2024 6:22 AM EST 09/01/2024 6:46 AM EST John Dean DO LAB BLOOD ORDERABLES Final Result LABORATORY [facility] [address] [place] [address] * (ABNORMAL) MAGNESIUM (09/01/2024 6:22 AM EST) Magnesium 3.0(H) 1.5 - 2.6 mg/dL 09/01/2024 7:18 AM EST LAB[facility] Blood Venous blood specimen / Unknown Venipuncture / Unknown 09/01/2024 6:22 AM EST 09/01/2024 6:46 AM EST [facility] Final Result Performing Organization Address [facility] Co de Phone Number LABORATORY [facility] [address] [place] [address] * (ABNORMAL) PT INR (09/01/2024 6:22 AM EST) Prothrombin Time 17.3(H) 11.6 - 15.2 seconds 09/01/2024 7:11 AM EST LABORATORY [facility] INR 1.4(H) 0.8 - 1.2 09/01/2024 7:11 AM EST LAB[facility]ATORY [facility] Blood Venous blood specimen / Unknown Venipuncture / Unknown 09/01/2024 6:22 AM EST 09/01/2024 6:46 AM EST Narrative LABORATORY C - 09/01/2024 7:11 AM EST Warfarin Therapy INR: 2.0-3.0 conventional anticoagulation INR: 2.5-3.5 high intensity anticoagulation John Dean [facility] BLOOD ORDERABLES Final Result Performing Organization Address [facility] Phone Number LABORATORY [facility] [address] [place] [address] * (ABNORMAL) COMPREHENSIVE METABOLIC PANEL (09/01/2024 6:22 AM EST) BUN 37(H) 6 - 20 mg/dL 09/01/2024 7:18 AM EST LABORATORY [facility] CREATININE 1.6(H) 0.6 - 1.2 mg/dL 09/01/2024 7:18 AM EST LABORATORY [facility] EGFR 54(L) >=60 mL/min 09/01/2024 7:18 AM EST LABORATORY [facility] Comment:eGFR is calculated b ased on the CKD-EPI 2020 equation. SODIUM 124(L) 135 - 146 mmol/L 09/01/2024 7:18 AM EST LABORATORY [facility] POTASSIUM 6.0(H) 3.5 - 5.1 mmol/L 09/01/2024 7:18 AM EST [facility] CHLORIDE 102 98 - 107 mmol/L 09/01/2024 7:18 AM EST [facility] CO2 16(L) 22 - 32 mmol/L 09/01/2024 7:18 AM EST [facility] ANION GAP 6(L) 7 - 15 mmol/L 09/01/2024 7:18 AM EST [facility] GLUCOSE 83 70 - 120 mg/dL 09/01/2024 7:18 AM EST [facility] Albumin 2.6(L) 3.8 - 5.0 g/dL 09/01/2024 7:18 AM EST [facility] AST 17 10 - 50 U/L 09/01/2024 7:18 AM EST [facility] Alkaline Phosphatase 51 35 - 130 U/L 09/01/2024 7:18 AM EST [facility] Bilirubin, Total 0.9 <=1.2 mg/dL 09/01/2024 7:18 AM EST [facility] CALCIUM 7.7(L) 8.4 - 10.2 mg/dL 09/01/2024 7:18 AM EST [facility] Protein 5.2(L) 6.0 - 8.3 g/dL 09/01/2024 7:18 AM EST [facility] ALT 7(L) 10 - 50 U/L 09/01/2024 7:18 AM EST [facility] Blood Venous blood specimen / Unknown Venipuncture / Unknown 09/01/2024 6:22 AM EST 09/01/2024 6:46 AM EST John Dean DO LAB BLOOD ORDERABLES Final Result LABORATORY [facility] [address] [place] [address] * (ABNORMAL) POTASSIUM, WHOLE BLOOD (08/31/2024 6:23 PM EST) [facility] Potassium 5.3(H) 3.5 - 5.1 mmol/L 08/31/2024 6:34 PM EST LAB[facility]ATORY [facility] Blood Venous blood specimen / Unknown Venipuncture / Unknown 08/31/2024 6:23 PM EST 08/31/2024 6:28 PM EST Gabriel Ash PA-C LAB BLOOD ORDERABLES Final Re sult Performing Organization Address City/[facility] Co de Phone Number LABORATORY [facility] [address] [place] [address] * TYPE AND SCREEN (08/31/2024 7:48 AM EST) ABO A 08/31/2024 9:03 AM EST LABORATORY [facility] BLOOD BANK Rh Negative 08/31/2024 9:03 AM EST LABORATORY [facility] BLOOD BANK Red Blood Cell Antibody Screen Negative 08/31/2024 9:03 AM EST LABORATORY [facility] BLOOD BANK Specimen Expiration Date 2024 23:59 08/31/2024 9:03 AM EST LABORATORY [facility] BLOOD BANK Blood Venous blood specimen / Unknown Venipuncture / Unknown 08/31/2024 7:48 AM EST 08/31/2024 7:58 AM EST Lolita Cyone MD LAB BLOOD BANK TEST ORDERABLE S Final Result Performing Organization Address [facility] de Phone Number LABORATORY [facility] BLOOD BANK [address] [place] [address] * (ABNORMAL) POTASSIUM, WHOLE BLOOD (08/31/2024 7:48 AM EST) Potassium 5.8(H) 3.5 - 5.1 mmol/L 08/31/2024 8:03 AM EST LABORATORY [facility] Blood Venous blood specimen / Unknown Venipuncture / Unknown 08/31/2024 7:48 AM EST 08/31/2024 7:59 AM EST Lolita Coyne MD LAB BLOOD ORDERABLES Final Re sult Performing Organization Address City/[facility] Co de Phone Number LABORATORY [facility] [address] [place] [address] * (ABNORMAL) CBC (08/31/2024 7:48 AM EST) WBC 10.16 4.00 - 10.80 K/uL 08/31/2024 8:15 AM EST [facility] RBC 2.47 4.50 - 5.25 M/uL 08/31/2024 8:15 AM EST LAB[facility] HGB 7.2(L) 14.0 - 16.8 g/dL 08/31/2024 8:15 AM EST [facility] HCT 24.2(L) 40.0 - 48.4 % 08/31/2024 8:15 AM EST [facility] MCV 98.0 82.0 - 99.5 fL 08/31/2024 8:15 AM EST [facility] MCH 29.1 27.0 - 34.0 pg 08/31/2024 8:15 AM EST [facility] MCHC 29.8 32.0 - 36.0 g/dL 08/31/2024 8:15 AM EST [facility] RDW 19.3 11.5 - 15.5 % 08/31/2024 8:15 AM EST [facility] PLT 166 140 - 400 K/uL 08/31/2024 8:15 AM EST LAB[facility] MPV 9.6 6.6 - 11.1 fL 08/31/2024 8:15 AM EST LAB[facility] nRBCs 0 <=0 /100 WBCs 08/31/2024 8:15 AM EST [facility] Blood Venous blood specimen / Unknown Venipuncture / Unknown 08/31/2024 7:48 AM EST 08/31/2024 8:05 AM EST John Dean DO LAB BLOOD ORDERABLES Final Result [facility] [address] [place] [address] * PHOSPHORUS (08/31/2024 7:48 AM EST) Phosphorus 3.0 2.5 - 4.8 mg/dL 08/31/2024 8:33 AM EST LAB[facility]ORY [facility] Blood Venous blood specimen / Unknown Venipuncture / Unknown 08/31/2024 7:48 AM EST 08/31/2024 8:05 AM EST John Gt Varojaskenzie DO LAB BLOOD ORDERABLES Final Result Performing Organization Address City/[facility]/ZIP Co de Phone Number LABORATORY [facility] [address] [place] [address] * (ABNORMAL) MAGNESIUM (08/31/2024 7:48 AM EST) Magnesium 3.0(H) 1.5 - 2.6 mg/dL 08/31/2024 8:33 AM EST LABORATORY C Blood Venous blood specimen / Unknown Venipuncture / Unknown 08/31/2024 7:48 AM EST 08/31/2024 8:05 AM EST John Gtprachi Dean LAB BLOOD ORDERABLES Final Result Performing Organization Address [facility] Phone Number LABORATORY [facility] [address] [place] [address] * (ABNORMAL) PT INR (08/31/2024 7:48 AM EST) Prothrombin Time 17.1(H) 11.6 - 15.2 seconds 08/31/2024 8:37 AM EST LABORATORY C INR 1.4(H) 0.8 - 1.2 08/31/2024 8:37 AM EST LABORATORY C Blood Venous blood specimen / Unknown Venipuncture / Unknown 08/31/2024 7:48 AM EST 08/31/2024 7:58 AM EST Narrative LAB[facility]ATORY [facility] - 08/31/2024 8:37 AM EST Warfarin Therapy INR: 2.0-3.0 conventional anticoagulation INR: 2.5-3.5 high intensity anticoagulation Johndeysi Del Real Kenzieyue LAB BLOOD ORDERABLES Final Result Performing Organization Address City/[facility]/ZIP Co de Phone Number LABORATORY [facility] [address] [place] [address] * (ABNORMAL) COMPREHENSIVE METABOLIC PANEL (08/31/2024 7:48 AM EST) BUN 38(H) 6 - 20 mg/dL 08/31/2024 8:33 AM EST LAB[facility]ORY [facility] CREATININE 1.6(H) 0.6 - 1.2 mg/dL 08/31/2024 8:33 AM EST LAB[facility]ORY [facility] EGFR 52(L) >=60 mL/min 08/31/2024 8:33 AM EST LAB[facility]ORY [facility] Comment:eGFR is calculated b ased on the CKD-EPI 2020 equation. SODIUM 125(L) 135 - 146 mmol/L 08/31/2024 8:33 AM EST LAB[facility]ORY [facility] POTASSIUM 6.0(H) 3.5 - 5.1 mmol/L 08/31/2024 8:33 AM EST [facility] CHLORIDE 100 98 - 107 mmol/L 08/31/2024 8:33 AM EST [facility] CO2 17(L) 22 - 32 mmol/L 08/31/2024 8:33 AM EST [facility] ANION GAP 8 7 - 15 mmol/L 08/31/2024 8:33 AM EST [facility] GLUCOSE 99 70 - 120 mg/dL 08/31/2024 8:33 AM EST LAB[facility] Albumin 2.4(L) 3.8 - 5.0 g/dL 08/31/2024 8:33 AM EST LAB[facility] AST 28 10 - 50 U/L 08/31/2024 8:33 AM EST [facility] Alkaline Phosphatase 70 35 - 130 U/L 08/31/2024 8:33 AM EST [facility] Bilirubin, Total 1.0 <=1.2 mg/dL 08/31/2024 8:33 AM EST [facility] CALCIUM 7.4(L) 8.4 - 10.2 mg/dL 08/31/2024 8:33 AM EST [facility] Protein 5.7(L) 6.0 - 8.3 g/dL 08/31/2024 8:33 AM EST LAB[facility]ORY [facility] ALT 12 10 - 50 U/L 08/31/2024 8:33 AM EST LAB[facility]ORY [facility] Blood Venous blood specimen / Unknown Venipuncture / Unknown 08/31/2024 7:48 AM EST 08/31/2024 8:05 AM EST John EspinoGentiskenzie [employer] LAB BLOOD ORDERABLES Final Result Performing Organization Address City/[facility]/ZIP Co de Phone Number LABORATORY [facility] [address] [place] [address] * TYPE AND SCREEN (08/30/2024 11:10 AM EST) ABO A 08/30/2024 12:01 PM EST LABORATORY [facility] BLOOD BANK Rh Negative 08/30/2024 12:01 PM EST LABORATORY [facility] BLOOD BANK Red Blood Cell Antibody Screen Negative 08/30/2024 12:01 PM EST LABORATORY [facility] BLOOD BANK Specimen Expiration Date 09/02/2024 23:59 08/30/2024 12:01 PM EST LABORATORY [facility] BLOOD BANK Blood Venous blood specimen / Unknown Venipuncture / Unknown 08/30/2024 11:10 AM EST 08/30/2024 11:20 AM EST [facility] TEST ORDERABLES Final Result Performing Organization Address [facility] de Phone Number LABORATORY [facility] BLOOD BANK [address] [place] [address] * CT LIVER 4-PHASE W WO IV CONTRAST - WO ORAL CONT (08/30/2024 9:28 AM EST) Anatomical Region Laterality Modality Abdomen, Body Computed Tomogra phy 08/30/2024 10:2 3 AM EST Impressions 08/30/2024 10:20 AM EST IMPRESSION 1. 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 No new varices. 2. Patent portal vein. 3. Similar large volume ascites. 4. Cirrhosis without suspicious hepatic lesion. Narrative 08/30/2024 10:[address] LIVER 4-PHASE W WO IV CONTRAST - WO ORAL CONT - 08/30/2024 HISTORY to evaluate his varices and portal vein COMPARISON CT 05/10/2024 TECHNIQUE Axial images of the abdomen were obtained per 4-phase liver protocol. Sagittal and coronal reformats were submitted. FINDINGS Lower chest: Similar small left pleural effusion with lower lobe atelectasis. Lines and devices: None. Liver: Cirrhosis. No suspicious lesions. Gallbladder: Cholelithiasis. Bile ducts: Unremarkable. Pancreas: Unremarkable. Spleen: Unremarkable. Adrenals: Unremarkable. Kidneys/Ureters (visualized): Bilateral renal cysts including right lower pole cyst with septations and calcifications. Peritoneum/Retroperitoneum: Similar large volume ascites. Bowel: Normal in caliber without evidence of obstruction. Lymph nodes: No lymphadenopathy. 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 Patent portal vein. Embolization coils in the upper abdomen and right liver. Similar patent right paraumbilical shunt and similar paraesophageal varices. No new varices. Abdominal Wall/Soft Tissues: Unremarkable. Bones: Degenerative changes of the spine. Procedure Note Luís Rodriguez MD - 08/30/[address] LIVER 4-PHASE W WO IV CONTRAST - WO ORAL CONT - 08/30/2024 HISTORY to evaluate his varices and portal vein COMPARISON CT 05/10/2024 TECHNIQUE Axial images of the abdomen were obtained per 4-phase liver protocol.Sagittal and coronal reformats were submitted. FINDINGS Lower chest: Similar small left pleural effusion with lower lobeatelectasis. Lines and devices: None. Liver: Cirrhosis. No suspicious lesions. Gallbladder: Cholelithiasis. Bile ducts: Unremarkable. Pancreas: Unremarkable. Spleen: Unremarkable. Adrenals: Unremarkable. Kidneys/Ureters (visualized): Bilateral renal cysts including right lowerpole cyst with septations and calcifications. Peritoneum/Retroperitoneum: Similar large volume ascites. Bowel: Normal in caliber without evidence of obstruction. Lymph nodes: No lymphadenopathy. 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 Patent portalvein. Embolization coils in the upper abdomen and right liver. Similarpatent right paraumbilical shunt and similar paraesophageal varices. Nonew varices. Abdominal Wall/Soft Tissues: Unremarkable. Bones: Degenerative changes of the spine. IMPRESSION IMPRESSION 1. 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 Nonew varices. 2. Patent portal vein. 3. Similar large volume ascites. 4. Cirrhosis without suspicious hepatic lesion. us Lolita Coyne MD RAD CT Final Result * (ABNORMAL) CBC (08/30/2024 6:47 AM EST) WBC 10.33 4.00 - 10.80 K/uL 08/30/2024 7:10 AM EST LAB[facility]ATORY [facility] RBC 2.61 4.50 - 5.25 M/uL 08/30/2024 7:10 AM EST LAB[facility] HGB 7.9(L) 14.0 - 16.8 g/dL 08/30/2024 7:10 AM EST LAB[facility] HCT 25.4(L) 40.0 - 48.4 % 08/30/2024 7:10 AM EST LAB[facility] MCV 97.3 82.0 - 99.5 fL 08/30/2024 7:10 AM EST LAB[facility] MCH 30.3 27.0 - 34.0 pg 08/30/2024 7:10 AM EST LAB[facility] MCHC 31.1 32.0 - 36.0 g/dL 08/30/2024 7:10 AM EST LAB[facility] RDW 18.9 11.5 - 15.5 % 08/30/2024 7:10 AM EST LAB[facility] PLT 152 140 - 400 K/uL 08/30/2024 7:10 AM EST [facility] MPV 9.1 6.6 - 11.1 fL 08/30/2024 7:10 AM EST LAB[facility]ORY [facility] nRBCs 0 <=0 /100 WBCs 08/30/2024 7:10 AM EST [facility] Blood Venous blood specimen / Unknown Venipuncture / Unknown 08/30/2024 6:47 AM EST 08/30/2024 6:54 AM EST John Dean DO LAB BLOOD ORDERABLES Final Result [facility] [address] [place] [address] * PHOSPHORUS (08/30/2024 6:47 AM EST) Phosphorus 3.3 2.5 - 4.8 mg/dL 08/30/2024 7:28 AM EST LAB[facility] Blood Venous blood specimen / Unknown Venipuncture / Unknown 08/30/2024 6:47 AM EST 08/30/2024 6:54 AM EST John Gt Dean DO LAB BLOOD ORDERABLES Final Result LABORATORY [facility] [address] [place] [address] * (ABNORMAL) MAGNESIUM (08/30/2024 6:47 AM EST) Magnesium 2.9(H) 1.5 - 2.6 mg/dL 08/30/2024 7:28 AM EST LABORATORY C Blood Venous blood specimen / Unknown Venipuncture / Unknown 08/30/2024 6:47 AM EST 08/30/2024 6:54 AM EST John Gt Dean DO LAB BLOOD ORDERABLES Final Result Performing Organization Address [facility]/ZIP Co de Phone Number LABORATORY [facility] [address] [place] [address] * (ABNORMAL) PT INR (08/30/2024 6:47 AM EST) Prothrombin Time 16.5(H) 11.6 - 15.2 seconds 08/30/2024 7:21 AM EST LABORATORY [facility] INR 1.3(H) 0.8 - 1.2 08/30/2024 7:21 AM EST LAB[facility] Blood Venous blood specimen / Unknown Venipuncture / Unknown 08/30/2024 6:47 AM EST 08/30/2024 6:54 AM EST Narrative LAB[facility]ATORY [facility] - 08/30/2024 7:21 AM EST Warfarin Therapy INR: 2.0-3.0 conventional anticoagulation INR: 2.5-3.5 high intensity anticoagulation John Gtprachi Dean DO LAB BLOOD ORDERABLES Final Result LABORATORY [facility] [address] [place] [address] * (ABNORMAL) COMPREHENSIVE METABOLIC PANEL (08/30/2024 6:47 AM EST) Pathologist [facility] BUN 38(H) 6 - 20 mg/dL 08/30/2024 7:28 AM EST LAB[facility] CREATININE 1.6(H) 0.6 - 1.2 mg/dL 08/30/2024 7:28 AM EST [facility] EGFR 51(L) >=60 mL/min 08/30/2024 7:28 AM EST LAB[facility]ORY [facility] Comment:eGFR is calculated b ased on the CKD-EPI 2020 equation. SODIUM 128(L) 135 - 146 mmol/L 08/30/2024 7:28 AM EST LAB[facility] POTASSIUM 5.6(H) 3.5 - 5.1 mmol/L 08/30/2024 7:28 AM EST [facility] CHLORIDE 103 98 - 107 mmol/L 08/30/2024 7:28 AM EST [facility] CO2 18(L) 22 - 32 mmol/L 08/30/2024 7:28 AM EST [facility] ANION GAP 7 7 - 15 mmol/L 08/30/2024 7:28 AM EST [facility] GLUCOSE 111 70 - 120 mg/dL 08/30/2024 7:28 AM EST [facility] Albumin 2.4(L) 3.8 - 5.0 g/dL 08/30/2024 7:28 AM EST [facility] AST 21 10 - 50 U/L 08/30/2024 7:28 AM EST [facility] Alkaline Phosphatase 60 35 - 130 U/L 08/30/2024 7:28 AM EST [facility] Bilirubin, Total 0.9 <=1.2 mg/dL 08/30/2024 7:28 AM EST LAB[facility] CALCIUM 7.6(L) 8.4 - 10.2 mg/dL 08/30/2024 7:28 AM EST [facility] Protein 5.5(L) 6.0 - 8.3 g/dL 08/30/2024 7:28 AM EST LAB[facility] ALT 11 10 - 50 U/L 08/30/2024 7:28 AM EST [facility] Blood Venous blood specimen / Unknown Venipuncture / Unknown 08/30/2024 6:47 AM EST 08/30/2024 6:54 AM EST John Sotelopadmakenzie DO LAB BLOOD ORDERABLES [place] [address] * (ABNORMAL) BLOOD GAS WITH CHEMISTRY, POINT OF CARE (08/29/2024 2:56 PM EST) Draw Site Arterial Draw 08/29/2024 3:04 PM EST [employer] pH i-STAT 7.316(L) 7.350 - 7.450 08/29/2024 3:04 PM EST [employer] pCO2 i-STAT 31.8(L) 35.0 - 45.0 mm Hg 08/29/2024 3:04 PM EST [employer] pO2 i-STAT 44(LL) 75 - 100 mm Hg 08/29/2024 3:04 PM EST [employer] Base Excess i-STAT -9(L) -2 - 2 mmol/L 08/29/2024 3:04 PM EST [employer] Bicarbonate i-STAT 16.2(L) 23.0 - 31.0 mmol/L 08/29/2024 3:04 PM EST [employer] O2 Saturation i-STAT 76.0(L) 94.0 - 98.0 % 08/29/2024 3:04 PM EST [employer] Glucose - POCT 95 70 - 120 mg/dL 08/29/2024 3:04 PM EST [employer] POTASSIUM - POCT 5.2(H) 3.5 - 5.1 mmol/L 08/29/2024 3:04 PM EST [employer] SODIUM - POCT 130(L) 135 - 146 mmol/L 08/29/2024 3:04 PM EST [employer] Calcium, ionized 1.26 1.13 - 1.32 mmol/L 08/29/2024 3:04 PM EST [employer] Hemoglobin i-STAT 8.5(L) 14.0 - 16.8 g/dL 08/29/2024 3:04 PM EST [employer] Hematocrit i-STAT 25(L) 40 - 48 % 08/29/2024 3:04 PM EST [facility] Arterial Draw 08/29/2024 2:5 6 PM EST 08/29/2024 3:04 PM EST Lolita Coyne MD LAB POINT OF CARE TE ST DOCKED DEVICE UNSOLICITED RESULTS Final Result [facility] [address] [place] [address] * (ABNORMAL) AVOXIMETER, POINT OF CARE (08/29/2024 2:52 PM EST) Draw Site Pulmonary Artery 08/30/2024 11:54 AM EST [employer] Hgb, Measured (AVOX) 8.0(L) 14.0 - 16.8 g/dL 08/30/2024 11:54 AM EST [employer] %O2HB (AVOX) 77.9(L) 92.0 - 100.0 % 08/30/2024 11:54 AM EST [employer] O2 Content (AVOX) 8.7 1.1 - 20.9 mL/dL 08/30/2024 11:54 AM EST [employer] Blood Arterial Line / Unknown 08/29/2024 2:52 PM EST 08/30/2024 11:50 AM EST Lolita Coyne MD LAB POINT OF CARE TEST DOCKED DEVICE ORDERABLES Final Result [facility] [address] [place] [address] * (ABNORMAL) AVOXIMETER, POINT OF CARE (08/29/2024 2:50 PM EST) Draw Site Right Atrium 08/30/2024 11:49 AM EST [employer] Hgb, Measured (AVOX) 8.2(L) 14.0 - 16.8 g/dL 08/30/2024 11:49 AM EST [employer] %O2HB (AVOX) 78.4(L) 92.0 - 100.0 % 08/30/2024 11:49 AM EST [facility] O2 Content (AVOX) 8.9 1.1 - 20.9 mL/dL 08/30/2024 11:49 AM EST [facility] Blood Arterial Line / Unknown 08/29/2024 2:50 PM EST 08/30/2024 11:47 AM EST Lolita Coyne MD LAB POINT OF CARE TEST DOCKED DEVICE ORDERABLES Final Result [facility] [address] [place] [address] * (ABNORMAL) CBC (08/29/2024 6:33 AM EST) WBC 10.04 4.00 - 10.80 K/uL 08/29/2024 7:07 AM EST [facility] RBC 2.91 4.50 - 5.25 M/uL 08/29/2024 7:07 AM EST [facility] HGB 8.8(L) 14.0 - 16.8 g/dL 08/29/2024 7:07 AM EST [facility] HCT 28.3(L) 40.0 - 48.4 % 08/29/2024 7:07 AM EST [facility] MCV 97.3 82.0 - 99.5 fL 08/29/2024 7:07 AM EST [facility] MCH 30.2 27.0 - 34.0 pg 08/29/2024 7:07 AM EST LAB[facility]AT[facility] MCHC 31.1 32.0 - 36.0 g/dL 08/29/2024 7:07 AM EST [facility]AT[facility] RDW 18.5 11.5 - 15.5 % 08/29/2024 7:07 AM EST LAB[facility]AT[facility] PLT 171 140 - 400 K/uL 08/29/2024 7:07 AM EST LAB[facility]AT[facility] MPV 9.5 6.6 - 11.1 fL 08/29/2024 7:07 AM EST LAB[facility] nRBCs 0 <=0 /100 WBCs 08/29/2024 7:07 AM EST [facility] Blood Venous blood specimen / Unknown Venipuncture / Unknown 08/29/2024 6:33 AM EST 08/29/2024 6:52 AM EST John Dean DO LAB BLOOD ORDERABLES Final Result [facility] [address] [place] [address] * PHOSPHORUS (08/29/2024 6:33 AM EST) Phosphorus 3.6 2.5 - 4.8 mg/dL 08/29/2024 7:26 AM EST LABORAT[facility] Blood Venous blood specimen / Unknown Venipuncture / Unknown 08/29/2024 6:33 AM EST 08/29/2024 6:52 AM EST John Dean LAB BLOOD ORDERABLES Final Result Performing Organization Address City/[facility]/ZIP Co de Phone Number [facility] [address] [place] [address] * (ABNORMAL) MAGNESIUM (08/29/2024 6:33 AM EST) Magnesium 2.9(H) 1.5 - 2.6 mg/dL 08/29/2024 7:26 AM EST LAB[facility]ATORY [facility] Blood Venous blood specimen / Unknown Venipuncture / Unknown 08/29/2024 6:33 AM EST 08/29/2024 6:52 AM EST John Dean LAB BLOOD ORDERABLES Final Result [facility] [address] [place] [address] * (ABNORMAL) PT INR (08/29/2024 6:33 AM EST) Prothrombin Time 16.4(H) 11.6 - 15.2 seconds 08/29/2024 7:31 AM EST LABORATORY [facility] INR 1.3(H) 0.8 - 1.2 08/29/2024 7:31 AM EST LAB[facility]ATORY [facility] Blood Venous blood specimen / Unknown Venipuncture / Unknown 08/29/2024 6:33 AM EST 08/29/2024 6:52 AM EST Narrative [facility] - 08/29/2024 7:31 AM EST Warfarin Therapy INR: 2.0-3.0 conventional anticoagulation INR: 2.5-3.5 high intensity anticoagulation John Dean DO LAB BLOOD ORDERABLES Final Result [facility] [address] [place] [address] * (ABNORMAL) COMPREHENSIVE METABOLIC PANEL (08/29/2024 6:33 AM EST) BUN 38(H) 6 - 20 mg/dL 08/29/2024 7:26 AM EST LABORATORY [facility] CREATININE 1.4(H) 0.6 - 1.2 mg/dL 08/29/2024 7:26 AM EST [facility] EGFR 59(L) >=60 mL/min 08/29/2024 7:26 AM EST [facility] Comment:eGFR is calculated b ased on the CKD-EPI 2020 equation. SODIUM 128(L) 135 - 146 mmol/L 08/29/2024 7:26 AM EST LABORATORY [facility] POTASSIUM 4.8 3.5 - 5.1 mmol/L 08/29/2024 7:26 AM EST LABORATORY [facility] CHLORIDE 102 98 - 107 mmol/L 08/29/2024 7:26 AM EST LABORATORY C CO2 17(L) 22 - 32 mmol/L 08/29/2024 7:26 AM EST LABORATORY [facility] ANION GAP 9 7 - 15 mmol/L 08/29/2024 7:26 AM EST LABORATORY [facility] GLUCOSE 122(H) 70 - 120 mg/dL 08/29/2024 7:26 AM EST LABORATORY [facility] Albumin 2.5(L) 3.8 - 5.0 g/dL 08/29/2024 7:26 AM EST LABORATORY GM AST 19 10 - 50 U/L 08/29/2024 7:26 AM EST LABORATORY GM Alkaline Phosphatase 58 35 - 130 U/L 08/29/2024 7:26 AM EST LAB[facility]ATORY [facility] Bilirubin, Total 0.9 <=1.2 mg/dL 08/29/2024 7:26 AM EST LAB[facility]ATORY [facility] CALCIUM 7.9(L) 8.4 - 10.2 mg/dL 08/29/2024 7:26 AM EST LAB[facility]ATORY [facility] Protein 5.6(L) 6.0 - 8.3 g/dL 08/29/2024 7:26 AM EST LAB[facility]ATORY [facility] ALT 12 10 - 50 U/L 08/29/2024 7:26 AM EST LAB[facility]ATORY [facility] Blood Venous blood specimen / Unknown Venipuncture / Unknown 08/29/2024 6:33 AM EST 08/29/2024 6:52 AM EST us John Dean DO LAB BLOOD ORDERABLES Final Result LAB[facility]ATORY [facility] [address] [place] [address] * CARDIAC CATHETERIZATION REPORT (08/29/2024) DATE OF PROCEDURE 08/29/2024 [facility] Rebeca Bonilla MD [facility] CONCLUSIONS * Right Heart Catheterization o RA = 4 mmHg [0-8 mmHg] o RV = 27/0 mmHg [20-30/0-8 mmHg] o PA = 21/0 (10) mmHg [20-30/8-15 mmHg] o PCWP = 6 mmHg [8-12 mmHg] o Pulmonary vascular resistant = 0.37 [facility] Unit (29.9 dynes/sec/cm-5) (mPAP - PCWP)/CO o Assumed CO (Maryam) = 10.77 L/min | CI = 5.42 L/min/m2 Saturations: 100% arterial in aorta and 76% venous in PA and 78% venous in RA [facility] PROCEDURES Right Heart Cath No conscious sedation administered by cath/EP lab staff during this procedure. [facility] TOTAL RADIATION 0.00 Gy [facility] COMPLICATIONS No complication None [facility] 08/29/2024 08/30/2024 1:2 0 PM EST us Mohit Esquivel MD CARD CATH Final Res ult [facility] * COLONOSCOPY (08/28/2024 12:30 PM EST) 08/28/2024 12:3 0 PM EST Narrative Procedure Note Lolita Coyne MD - 08/28/2024 12:30 PM EST [facility] Patient Name: Santiago Amador Procedure Date: 08/28/2024 12:30 PM Date of : 1970 Admit Type: Inpatient Note Status:Finalized Date of : 1970 Admit Type: Inpatient Age: 53 Room: Endo - Room 4 Gender: Male Note Status: Finalized Procedure: Colonoscopy Indications: Iron deficiency anemia Providers: Nery Aguilar MD (Doctor) Referring MD: Radha Palacio AlbertoUnzueta, MD Medicines: General Anesthesia Complications: No immediate complications. Procedure: Pre-Anesthesia Assessment: - Prior to the procedure, a History and Physicalwas performed, and patient medications and allergies were reviewed. Thepatient is competent. The risks and benefits of the procedure and the sedation optionsand risks were discussed with the patient. All questions were answered and informedconsent was obtained. Patient identification and proposed procedure were verifiedby the physician, the nurse, the anesthesiologist, the club waiter/waitress and thetechnician in the pre-procedure area in the procedure room. Mental Status Examination: alertand oriented. Airway Examination: normal oropharyngeal airway and neck mobility.Respiratory Examination: clear to auscultation. CV Examination: normal. Afterreviewing the risks and benefits, the patient was deemed in satisfactory condition toundergo the procedure. The anesthesia plan was to use monitored anesthesia care (MAC).Immediately prior to administration of medications, the patient was re-assessed foradequacy to receive sedatives. The heart rate, respiratory rate, oxygen saturations,blood pressure, adequacy of pulmonary ventilation, and response to care weremonitored throughout the procedure. The physical status of the patient was re-assessedafter the procedure. After I obtained informed consent, the scope waspassed under direct vision. All instruments were visually inspected immediatelybefore and after removal from the patient to ensure they are fully intact. Throughout the procedure, the patient's bloodpressure, pulse, and oxygen saturations were monitored continuously. The [id number] was introduced through the anus with the intention of advancing tothe cecum. The scope was advanced to the descending colon before the procedure wasaborted. Medications were given. The colonoscopy was aborted due to poor bowel prep. Thepatient tolerated the procedure well. The quality of the bowel preparation waspoor. Findings & Specimens: The perianal exam findings include internal hemorrhoids (Grade I). A large amount of stool was found in the entire colon, precludingvisualization. Impression: - The procedure was aborted due to poor bowelprep. - Preparation of the colon was poor. - Internal hemorrhoids (Grade I) found on perianalexam. - Stool in the entire examined colon. - No specimens collected. - All instruments are visually inspectedimmediately before and after removal from the patient to ensure they are fully intact. Recommendation: - Return patient to hospital [facility] for ongoingcare. - Repeat colonoscopy at the next availableappointment because the bowel preparation was suboptimal. - Additional recommendations as per hepatologyservice. Nery Aguilar MD 08/28/2024 12:58:51 PM This report has been signed electronically. Estimated Blood Loss: Estimated blood loss: none. Lolita Coyne MD GASTRO LOWER Final Result * UPPER GI ENDOSCOPY (08/28/2024 12:00 PM EST) 08/28/2024 12:0 0 PM EST Narrative Procedure Note Lolita Coyne MD - 08/28/2024 12:00 PM EST [facility] Patient Name: Santiago Amador Procedure Date: 08/28/2024 12:00 PM Date of : 1970 Admit Type: Inpatient Note Status:Finalized Date of : 1970 Admit Type: Inpatient Age: 53 Room: Endo - Room 4 Gender: Male Note Status: Finalized Procedure: Upper GI endoscopy Indications: Iron deficiency anemia, known gastroduodenalvarices Providers: Nery Aguilar MD (Doctor), Salma Wisdom MD(Fellow) Referring MD: Radha Palacio AlbertoUnzueta, MD Medicines: General Anesthesia Complications: No immediate complications. Procedure: Pre-Anesthesia Assessment: - Prior to the procedure, a History and Physicalwas performed, and patient medications and allergies were reviewed. Thepatient is competent. The risks and benefits of the procedure and the sedation optionsand risks were discussed with the patient. All questions were answered and informedconsent was obtained. Patient identification and proposed procedure were verifiedby the physician, the nurse, the anesthesiologist, the club waiter/waitress and thetechnician in the pre-procedure area in the procedure room. Mental Status Examination: alertand oriented. Airway Examination: normal oropharyngeal airway and neck mobility.Respiratory Examination: clear to auscultation. CV Examination: normal. Afterreviewing the risks and benefits, the patient was deemed in satisfactory condition toundergo the procedure. The anesthesia plan was to use monitored anesthesia care (MAC).Immediately prior to administration of medications, the patient was re-assessed foradequacy to receive sedatives. The heart rate, respiratory rate, oxygen saturations,blood pressure, adequacy of pulmonary ventilation, and response to care weremonitored throughout the procedure. The physical status of the patient was re-assessedafter the procedure. - The supervising physician was present for theentire procedure from scope insertion until scope withdrawal. After obtaining informed consent, the endoscope waspassed under direct vision. All instruments were visually inspected immediatelybefore and after removal from the patient to ensure they are fully intact. Throughout the procedure, the patient's bloodpressure, pulse, and oxygen saturations were monitored continuously. The GIF [id number]) was introduced through the mouth, and advanced to the second part ofduodenum. The upper GI endoscopy was accomplished without difficulty. The patienttolerated the procedure well. Findings & Specimens: One column of grade I, small (< 5 mm) varices with no bleeding and nostigmata of recent bleeding were found in the lower third of the esophagus. No red nia signs werepresent. A 3 cm hiatal hernia was present. A large amount of food (residue) was found in the gastric fundus andin the gastric body. Severe portal hypertensive gastropathy was found in the entireexamined stomach. Old blood was found in the duodenal bulb without evidence of activebleeding. Large (> 5 mm) varices were found in the duodenal bulb. Diffuse moderately erythematous mucosa was found in the duodenal bulband in the second portion of the duodenum. Impression: - Grade I and small (< 5 mm) esophageal variceswith no bleeding and no stigmata of recent bleeding. - 3 cm hiatal hernia. - A large amount of food (residue) in thestomach. - Portal hypertensive gastropathy. - Blood in the duodenal bulb. 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 - Erythematous duodenopathy. - No specimens collected. - All instruments are visually inspectedimmediately before and after removal from the patient to ensure they are fully intact. Recommendation: - Recommend IR consult for persistent duodenalvarices which are the likely source of chronic blood loss. - Perform a colonoscopy today. Nery Aguilar MD 08/28/2024 1:07:20 PM This report has been signed electronically. Salma Wisdom MD Estimated Blood Loss: Estimated blood loss: none. Lolita Coyne MD GASTRO UPPER Final Result * (ABNORMAL) BNP, NT-PRO (08/28/2024 9:22 AM EST) BNP, NT-Pro 333(H) <300 pg/mL 08/28/2024 3:24 PM EST LAB[facility]ATORY [facility] Blood Venous blood specimen / Unknown Venipuncture / Unknown 08/28/2024 9:22 AM EST 08/28/2024 9:36 AM EST Narrative LAB[facility]ATORY [facility] - 08/28/2024 3:24 PM EST Exclude Heart Failure: <300 pg/mL Diagnose Heart Failure: Age <50 yr: >450 pg/mL 50-75 yr: >900 pg/mL >75 yr: >1800 pg/mL GFR is 30-59 mL/min: >1200 pg/mL or Age-adjusted values GFR <30 mL/min: do not use, not reliable Prognostic threshold: 1000 pg/mL Radha Gan DO LAB BLOOD ORDERABLES Final Result LAB[facility]ATORY [facility] [address] [place] [address] * (ABNORMAL) CBC (08/28/2024 9:22 AM EST) WBC 8.62 4.00 - 10.80 K/uL 08/28/2024 9:45 AM EST LAB[facility]ATORY [facility] RBC 2.92 4.50 - 5.25 M/uL 08/28/2024 9:45 AM EST LAB[facility]ATORY [facility] HGB 8.7(L) 14.0 - 16.8 g/dL 08/28/2024 9:45 AM EST LAB[facility]ATORY [facility] HCT 28.3(L) 40.0 - 48.4 % 08/28/2024 9:45 AM EST LAB[facility]ATORY [facility] MCV 96.9 82.0 - 99.5 fL 08/28/2024 9:45 AM EST LAB[facility]ATORY [facility] MCH 29.8 27.0 - 34.0 pg 08/28/2024 9:45 AM EST LAB[facility]ATORY [facility] MCHC 30.7 32.0 - 36.0 g/dL 08/28/2024 9:45 AM EST LAB[facility]ORY [facility] RDW 18.4 11.5 - 15.5 % 08/28/2024 9:45 AM EST LAB[facility]ATORY [facility] PLT 153 140 - 400 K/uL 08/28/2024 9:45 AM EST LAB[facility]ATORY [facility] MPV 9.4 6.6 - 11.1 fL 08/28/2024 9:45 AM EST LAB[facility]ATORY [facility] nRBCs 0 <=0 /100 WBCs 08/28/2024 9:45 AM EST LAB[facility] Blood Venous blood specimen / Unknown Venipuncture / Unknown 08/28/2024 9:22 AM EST 08/28/2024 9:36 AM EST John Dean DO LAB BLOOD ORDERABLES Final Result LAB[facility]ATORY [facility] [address] [place] [address] * PHOSPHORUS (08/28/2024 9:22 AM EST) Phosphorus 3.3 2.5 - 4.8 mg/dL 08/28/2024 10:04 AM EST LABORATORY C Blood Venous blood specimen / Unknown Venipuncture / Unknown 08/28/2024 9:22 AM EST 08/28/2024 9:36 AM EST John Dean DO LAB BLOOD ORDERABLES Final Result Performing Organization Address City/[facility]/ZIP Co de Phone Number LABORATORY [address] [address] * (ABNORMAL) MAGNESIUM (08/28/2024 9:22 AM EST) Magnesium 2.8(H) 1.5 - 2.6 mg/dL 08/28/2024 10:04 AM EST LABORATORY [facility] Blood Venous blood specimen / Unknown Venipuncture / Unknown 08/28/2024 9:22 AM EST 08/28/2024 9:36 AM EST John Dean DO LAB BLOOD ORDERABLES Final Result Performing Organization Address [facility] de Phone Number LABORATORY [address] [address] * (ABNORMAL) PT INR (08/28/2024 9:22 AM EST) Prothrombin Time 15.5(H) 11.6 - 15.2 seconds 08/28/2024 9:57 AM EST LABORATORY [facility] INR 1.2 0.8 - 1.2 08/28/2024 9:57 AM EST LAB[facility]ATORY [facility] Blood Venous blood specimen / Unknown Venipuncture / Unknown 08/28/2024 9:22 AM EST 08/28/2024 9:36 AM EST Narrative LAB[facility]ATORY [facility] - 08/28/2024 9:57 AM EST Warfarin Therapy INR: 2.0-3.0 conventional anticoagulation INR: 2.5-3.5 high intensity anticoagulation John Dean DO LAB BLOOD ORDERABLES Final Result LABORATORY [facility] [address] [place] [address] * (ABNORMAL) COMPREHENSIVE METABOLIC PANEL (08/28/2024 9:22 AM EST) BUN 37(H) 6 - 20 mg/dL 08/28/2024 10:04 AM EST LAB[facility]ATORY [facility] CREATININE 1.4(H) 0.6 - 1.2 mg/dL 08/28/2024 10:04 AM EST LABORATORY GM EGFR 62 >=60 mL/min 08/28/2024 10:04 AM EST LABORATORY [facility] Comment:eGFR is calculated b ased on the CKD-EPI 2020 equation. SODIUM 124(L) 135 - 146 mmol/L 08/28/2024 10:04 AM EST LAB[facility]ATORY [facility] POTASSIUM 5.1 3.5 - 5.1 mmol/L 08/28/2024 10:04 AM EST LABORATORY C CHLORIDE 101 98 - 107 mmol/L 08/28/2024 10:04 AM EST LAB[facility]ATORY [facility] CO2 15(L) 22 - 32 mmol/L 08/28/2024 10:04 AM EST LAB[facility]ATORY [facility] ANION GAP 8 7 - 15 mmol/L 08/28/2024 10:04 AM EST LAB[facility]ATORY [facility] GLUCOSE 103 70 - 120 mg/dL 08/28/2024 10:04 AM EST LAB[facility]ATORY [facility] Albumin 2.6(L) 3.8 - 5.0 g/dL 08/28/2024 10:04 AM EST LAB[facility]ATORY [facility] AST 21 10 - 50 U/L 08/28/2024 10:04 AM EST LAB[facility]ATORY [facility] Alkaline Phosphatase 53 35 - 130 U/L 08/28/2024 10:04 AM EST LAB[facility]ATORY [facility] Bilirubin, Total 1.1 <=1.2 mg/dL 08/28/2024 10:04 AM EST LAB[facility]ATORY [facility] CALCIUM 7.7(L) 8.4 - 10.2 mg/dL 08/28/2024 10:04 AM EST LAB[facility]ATORY [facility] Protein 5.6(L) 6.0 - 8.3 g/dL 08/28/2024 10:04 AM EST LAB[facility]ATORY [facility] ALT 10 10 - 50 U/L 08/28/2024 10:04 AM EST LAB[facility]ATORY [facility] Blood Venous blood specimen / Unknown Venipuncture / Unknown 08/28/2024 9:22 AM EST 08/28/2024 9:36 AM EST John Dean DO LAB BLOOD ORDERABLES Final Result Performing Organization Address City/[facility]/ZIP Co de Phone Number LABORATORY [facility] [address] [place] [address] * (ABNORMAL) HEMOGLOBIN AND HEMATOCRIT PANEL (08/27/2024 2:32 PM EST) HGB 8.0(L) 14.0 - 16.8 g/dL 08/27/2024 3:09 PM EST LABORATORY [facility] HCT 26.5(L) 40.0 - 48.4 % 08/27/2024 3:09 PM EST LABORATORY [facility] Blood Venous blood specimen / Unknown Venipuncture / Unknown 08/27/2024 2:32 PM EST 08/27/2024 2:44 PM EST Darcie Hernandez MD LAB BLOOD ORDERABLES Final Resu lt LABORATORY [facility] [address] [place] [address] * TRANSFUSE PACKED RED BLOOD CELLS (08/27/2024 1:17 PM EST) Darcie MENDIETA BANK TRANFUSE ORDERABLES Fi nal Result * TRANSFUSE PACKED RED BLOOD CELLS (08/27/2024 1:17 PM EST) Darcie MENDIETA BANK TRANFUSE ORDERABLES Fi nal Result * TYPE AND SCREEN (08/27/2024 10:02 AM EST) ABO A 08/27/2024 11:03 AM EST LABORATORY [facility] BLOOD BANK Rh Negative 08/27/2024 11:03 AM EST LABORATORY [facility] BLOOD B[facility] Red Blood Cell Antibody Screen Negative 08/27/2024 11:03 AM EST LABORATORY [facility] BLOOD BANK Specimen Expiration Date 08/30/2024 23:59 08/27/2024 11:03 AM EST LABORATORY C BLOOD BANK Blood Venous blood specimen / Unknown Venipuncture / Unknown 08/27/2024 10:02 AM EST 08/27/2024 10:10 AM EST us John Dean DO LAB BLOOD BANK TEST ORDERABLES Final Result LABORATORY [facility] BLOOD BANK [address] [place] [address] * PREPARE PACKED RED BLOOD CELLS (08/27/2024 8:30 AM EST) Unit Product Code [id number] 08/28/2024 2:10 PM EST LABORATORY [facility] BLOOD B[facility] Unit Number [id number] 08/28/2024 2:10 PM EST LABORATORY C BLOOD BANK Unit ABO A 08/28/2024 2:10 PM EST LAB[facility]ATORY [facility] BLOOD BANK Unit Rh NEG 08/28/2024 2:10 PM EST LABORATORY [facility] BLOOD BANK Unit Crossmatch Compatible 08/27/2024 8:36 AM EST LABORATORY C BLOOD BANK Unit Status PT 08/28/2024 2:10 PM EST LABORATORY C BLOOD BANK Unit Blood Type ANEG 08/28/2024 2:10 PM EST LABORATORY [facility] BLOOD BANK Unit Expiration [id number] 08/28/2024 2:10 PM EST LABORATORY [facility] BLOOD BANK Unit Barcode 0600 08/28/2024 2:10 PM EST LABORATORY C BLOOD BANK 08/27/2024 8:30 AM EST us Darcei Hernandez MD BLD BANK PRODUCT ORDERABLES Cristopher naren Result - Final LABORATORY [facility] BLOOD BANK [address] [place] [address] * (ABNORMAL) CBC (08/27/2024 6:45 AM EST) WBC 9.10 4.00 - 10.80 K/uL 08/27/2024 7:04 AM EST LABORATORY [facility] RBC 2.20 4.50 - 5.25 M/uL 08/27/2024 7:04 AM EST LABORATORY [facility] HGB 6.4(L) 14.0 - 16.8 g/dL 08/27/2024 7:04 AM EST LABORATORY [facility] HCT 21.3(L) 40.0 - 48.4 % 08/27/2024 7:04 AM EST LAB[facility]ATORY [facility] MCV 96.8 82.0 - 99.5 fL 08/27/2024 7:04 AM EST LABORATORY [facility] MCH 29.1 27.0 - 34.0 pg 08/27/2024 7:04 AM EST LAB[facility]ATORY [facility] MCHC 30.0 32.0 - 36.0 g/dL 08/27/2024 7:04 AM EST LABORATORY [facility] RDW 17.7 11.5 - 15.5 % 08/27/2024 7:04 AM EST LAB[facility]ATORY [facility] PLT 118(L) 140 - 400 K/uL 08/27/2024 7:04 AM EST LAB[facility]ATORY [facility] MPV 9.7 6.6 - 11.1 fL 08/27/2024 7:04 AM EST LAB[facility]ATORY [facility] nRBCs 0 <=0 /100 WBCs 08/27/2024 7:04 AM EST LABORATORY [facility] Blood Venous blood specimen / Unknown Venipuncture / Unknown 08/27/2024 6:45 AM EST 08/27/2024 6:51 AM EST John ALMONTE BLOOD ORDERABLES Final Result Performing Organization Address City/State/[facility] Co de Phone Number LABORATORY [facility] [address] [place] [address] * PHOSPHORUS (08/27/2024 6:45 AM EST) [facility] Phosphorus 3.2 2.5 - 4.8 mg/dL 08/27/2024 7:22 AM EST LABORATORY [facility] Blood Venous blood specimen / Unknown Venipuncture / Unknown 08/27/2024 6:45 AM EST 08/27/2024 6:51 AM EST John Dean DO LAB BLOOD ORDERABLES Final Result LABORATORY [facility] [address] [place] [address] * (ABNORMAL) MAGNESIUM (08/27/2024 6:45 AM EST) Magnesium 2.7(H) 1.5 - 2.6 mg/dL 08/27/2024 7:22 AM EST LABORATORY [facility] Blood Venous blood specimen / Unknown Venipuncture / Unknown 08/27/2024 6:45 AM EST 08/27/2024 6:51 AM EST [facility] BLO[facility] ORDERAB[facility] Final Result Performing Organization Address [facility] Co de Phone Number LABORATORY [facility] [address] [place] [address] * (ABNORMAL) PT INR (08/27/2024 6:45 AM EST) Prothrombin Time 17.9(H) 11.6 - 15.2 seconds 08/27/2024 8:12 AM EST LABORATORY [facility] INR 1.5(H) 0.8 - 1.2 08/27/2024 8:12 AM EST LAB[facility]ORY [facility] Blood Venous blood specimen / Unknown Venipuncture / Unknown 08/27/2024 6:45 AM EST 08/27/2024 6:51 AM EST Narrative LABORATORY [facility] - 08/27/2024 8:12 AM EST Warfarin Therapy INR: 2.0-3.0 conventional anticoagulation INR: 2.5-3.5 high intensity anticoagulation John Gtprachi Dean LAB BLOOD ORDERABLES Final Result Performing Organization Address City/[facility]/ZIP Co de Phone Number LABORATORY [facility] [address] [place] [address] * (ABNORMAL) COMPREHENSIVE METABOLIC PANEL (08/27/2024 6:45 AM EST) BUN 41(H) 6 - 20 mg/dL 08/27/2024 7:22 AM EST LAB[facility]ATORY [facility] CREATININE 1.6(H) 0.6 - 1.2 mg/dL 08/27/2024 7:22 AM EST LABORATORY [facility] EGFR 51(L) >=60 mL/min 08/27/2024 7:22 AM EST LABORATORY [facility] Comment:eGFR is calculated b ased on the CKD-EPI 2020 equation. SODIUM 123(L) 135 - 146 mmol/L 08/27/2024 7:22 AM EST LABORATORY [facility] POTASSIUM 5.6(H) 3.5 - 5.1 mmol/L 08/27/2024 7:22 AM EST LAB[facility]ATORY [facility] CHLORIDE 101 98 - 107 mmol/L 08/27/2024 7:22 AM EST LAB[facility]ATORY [facility] CO2 16(L) 22 - 32 mmol/L 08/27/2024 7:22 AM EST LAB[facility]ATORY [facility] ANION GAP 6(L) 7 - 15 mmol/L 08/27/2024 7:22 AM EST LAB[facility]ATORY [facility] GLUCOSE 98 70 - 120 mg/dL 08/27/2024 7:22 AM EST LAB[facility]ATORY [facility] Albumin 2.3(L) 3.8 - 5.0 g/dL 08/27/2024 7:22 AM EST LAB[facility]ATORY [facility] AST 15 10 - 50 U/L 08/27/2024 7:22 AM EST LAB[facility]ATORY [facility] Alkaline Phosphatase 47 35 - 130 U/L 08/27/2024 7:22 AM EST LAB[facility]ATORY [facility] Bilirubin, Total 0.7 <=1.2 mg/dL 08/27/2024 7:22 AM EST LAB[facility]ORY [facility] CALCIUM 7.2(L) 8.4 - 10.2 mg/dL 08/27/2024 7:22 AM EST LAB[facility]ATORY [facility] Protein 4.8(L) 6.0 - 8.3 g/dL 08/27/2024 7:22 AM EST LAB[facility]ATORY [facility] ALT 10 10 - 50 U/L 08/27/2024 7:22 AM EST LAB[facility]ATORY [facility] Blood Venous blood specimen / Unknown Venipuncture / Unknown 08/27/2024 6:45 AM EST 08/27/2024 6:51 AM EST us John Dean DO LAB BLOOD ORDERABLES Final Result LABORATORY [facility] [address] [place] [address] * RI ABDOM PARACENTESIS DX/THER W/IMAGING GUIDANCE (08/26/2024 4:21 PM EST) Narrative Mao Ely MD - 08/26/2024 4:21 PM EST Monse Méndez MD 08/26/2024 10:07 PM Paracentesis Procedure Date/Time : 08/26/2024 4:21 PM Performed by: Mnose Méndez MD Authorized by: Monse Méndez MD [place] Protocol: Verbal consent obtained?: Yes Written consent obtained?: Yes Consent given by: Patient Patient states understanding of procedure being performed: Yes Patient's understanding of procedure matches verbalized consent: Yes Procedure consent matches procedure scheduled: Yes Site marked: Yes Verify correct position: Yes Patient identity confirmed: Verbally with patient Other healthcare professional(s) verbalize(s) agreement with timeout: Yes Time out: Immediately prior to the procedure a time out was called A time out verifies correct patient, procedure, equipment, support team member and site/side marked as required. Anticoagulation/Anti-platelet Therapy: Risks discussed: Bleeding, bowel perforation, pain and infection Indications: Initial or subsequent procedure: Subsequent Procedure purpose: Therapeutic Indications: abdominal discomfort secondary to ascites Anesthesia: Local anesthesia used?: Yes Local anesthetic: Lidocaine 1% without epinephrine Anesthetic total (ml): 8 Sedation: Patient sedated: No Procedure details: Preparation: Patient was prepped and draped in usual sterile fashion Needle gauge: 18 Ultrasound guided: Yes Puncture site: Right lower quadrant Fluid removed (ml): [id number] Fluid appearance: Cloudy (yellow) Dressing: Pressure dressing and 4x4 sterile gauze Patient tolerance: Patient tolerated the procedure well with no immediate complications Attestation: Attestation: Attending present for ramirez portions of procedure and immediately available Name of doctor present for entire procedure: Dr. Mao Ely us Monse Méndez MD PROCEDURE REPORT Fin al Result * (ABNORMAL) CBC (08/26/2024 3:29 AM EST) WBC 10.05 4.00 - 10.80 K/uL 08/26/2024 4:22 AM EST LABORATORY [facility] RBC 2.66 4.50 - 5.25 M/uL 08/26/2024 4:22 AM EST LABORATORY [facility] HGB 7.9(L) 14.0 - 16.8 g/dL 08/26/2024 4:22 AM EST LAB[facility]ATORY [facility] HCT 25.6(L) 40.0 - 48.4 % 08/26/2024 4:22 AM EST LABORATORY [facility] MCV 96.2 82.0 - 99.5 fL 08/26/2024 4:22 AM EST LAB[facility]ATORY [facility] MCH 29.7 27.0 - 34.0 pg 08/26/2024 4:22 AM EST LAB[facility]ATORY [facility] MCHC 30.9 32.0 - 36.0 g/dL 08/26/2024 4:22 AM EST LAB[facility]ATORY [facility] RDW 17.6 11.5 - 15.5 % 08/26/2024 4:22 AM EST LABORATORY [facility] PLT 138(L) 140 - 400 K/uL 08/26/2024 4:22 AM EST LAB[facility]ATORY [facility] MPV 9.5 6.6 - 11.1 fL 08/26/2024 4:22 AM EST LABORATORY [facility] nRBCs 0 <=0 /100 WBCs 08/26/2024 4:22 AM EST LAB[facility]ATORY [facility] Blood Venous blood specimen / Unknown Venipuncture / Unknown 08/26/2024 3:29 AM EST 08/26/2024 4:09 AM EST John Dean DO LAB BLOOD ORDERABLES Final Result Performing Organization Address City/State/[facility] Co de Phone Number LABORATORY [facility] [address] [place] [address] * PHOSPHORUS (08/26/2024 3:29 AM EST) Phosphorus 3.8 2.5 - 4.8 mg/dL 08/26/2024 4:42 AM EST LAB[facility]ATORY [facility] Blood Venous blood specimen / Unknown Venipuncture / Unknown 08/26/2024 3:29 AM EST 08/26/2024 4:09 AM EST John Dean LAB BLOOD ORDERABLES Final Result LABORATORY [facility] [address] [place] [address] * (ABNORMAL) MAGNESIUM (08/26/2024 3:29 AM EST) Magnesium 2.7(H) 1.5 - 2.6 mg/dL 08/26/2024 4:42 AM EST LABORATORY [facility] Blood Venous blood specimen / Unknown Venipuncture / Unknown 08/26/2024 3:29 AM EST 08/26/2024 4:09 AM EST John Dean LAB BLOOD ORDERABLES Final Result Performing Organization Address [facility] Co de Phone Number LABORATORY [facility] [address] [place] [address] * (ABNORMAL) PT INR (08/26/2024 3:29 AM EST) Prothrombin Time 17.1(H) 11.6 - 15.2 seconds 08/26/2024 4:35 AM EST [facility] INR 1.4(H) 0.8 - 1.2 08/26/2024 4:35 AM EST [facility] Blood Venous blood specimen / Unknown Venipuncture / Unknown 08/26/2024 3:29 AM EST 08/26/2024 4:09 AM EST Narrative [facility] - 08/26/2024 4:35 AM EST Warfarin Therapy INR: 2.0-3.0 conventional anticoagulation INR: 2.5-3.5 high intensity anticoagulation John Dean LAB BLOOD ORDERABLES Final Result [facility] [address] [place] [address] * (ABNORMAL) COMPREHENSIVE METABOLIC PANEL (08/26/2024 3:29 AM EST) BUN 42(H) 6 - 20 mg/dL 08/26/2024 4:42 AM EST [facility] CREATININE 1.9(H) 0.6 - 1.2 mg/dL 08/26/2024 4:42 AM EST [facility] EGFR 41(L) >=60 mL/min 08/26/2024 4:42 AM EST [facility] Comment:eGFR is calculated b ased on the CKD-EPI 2020 equation. SODIUM 124(L) 135 - 146 mmol/L 08/26/2024 4:42 AM EST [facility] POTASSIUM 5.5(H) 3.5 - 5.1 mmol/L 08/26/2024 4:42 AM EST [facility] CHLORIDE 101 98 - 107 mmol/L 08/26/2024 4:42 AM EST [facility] CO2 15(L) 22 - 32 mmol/L 08/26/2024 4:42 AM EST [facility] ANION GAP 8 7 - 15 mmol/L 08/26/2024 4:42 AM EST [facility] GLUCOSE 101 70 - 120 mg/dL 08/26/2024 4:42 AM EST LAB[facility] Albumin 2.4(L) 3.8 - 5.0 g/dL 08/26/2024 4:42 AM EST [facility] AST 18 10 - 50 U/L 08/26/2024 4:42 AM EST [facility] Alkaline Phosphatase 60 35 - 130 U/L 08/26/2024 4:42 AM EST LAB[facility] Bilirubin, Total 0.9 <=1.2 mg/dL 08/26/2024 4:42 AM EST [facility] CALCIUM 7.6(L) 8.4 - 10.2 mg/dL 08/26/2024 4:42 AM EST [facility] Protein 5.4(L) 6.0 - 8.3 g/dL 08/26/2024 4:42 AM EST [facility] ALT 7(L) 10 - 50 U/L 08/26/2024 4:42 AM EST [facility] Blood Venous blood specimen / Unknown Venipuncture / Unknown 08/26/2024 3:29 AM EST 08/26/2024 4:09 AM EST John Dean DO LAB BLOOD ORDERABLES Final Result LABORATORY [facility] [address] [place] [address] * (ABNORMAL) CBC (08/25/2024 8:38 AM EST) WBC 8.66 4.00 - 10.80 K/uL 08/25/2024 9:01 AM EST [facility] RBC 2.90 4.50 - 5.25 M/uL 08/25/2024 9:01 AM EST [facility] HGB 8.3(L) 14.0 - 16.8 g/dL 08/25/2024 9:01 AM EST [facility] HCT 27.6(L) 40.0 - 48.4 % 08/25/2024 9:01 AM EST [facility] MCV 95.2 82.0 - 99.5 fL 08/25/2024 9:01 AM EST [facility] MCH 28.6 27.0 - 34.0 pg 08/25/2024 9:01 AM EST [facility] MCHC 30.1 32.0 - 36.0 g/dL 08/25/2024 9:01 AM EST [facility] RDW 17.9 11.5 - 15.5 % 08/25/2024 9:01 AM EST [facility] PLT 144 140 - 400 K/uL 08/25/2024 9:01 AM EST [facility] MPV 9.5 6.6 - 11.1 fL 08/25/2024 9:01 AM EST [facility] nRBCs 0 <=0 /100 WBCs 08/25/2024 9:01 AM EST [facility] Blood Venous blood specimen / Unknown Venipuncture / Unknown 08/25/2024 8:38 AM EST 08/25/2024 8:48 AM EST John Dean DO LAB BLOOD ORDERABLES Final Result [facility] [address] [place] [address] * PHOSPHORUS (08/25/2024 8:38 AM EST) Phosphorus 3.6 2.5 - 4.8 mg/dL 08/25/2024 9:18 AM EST [facility] Blood Venous blood specimen / Unknown Venipuncture / Unknown 08/25/2024 8:38 AM EST 08/25/2024 8:48 AM EST John Gt Dean DO LAB BLOOD ORDERABLES Final Result Performing Organization Address City/[facility]/ZIP Co de Phone Number LAB[facility]ATORY [facility] [address] [place] [address] * (ABNORMAL) MAGNESIUM (08/25/2024 8:38 AM EST) Magnesium 2.7(H) 1.5 - 2.6 mg/dL 08/25/2024 9:18 AM EST LAB[facility]ORY [facility] Blood Venous blood specimen / Unknown Venipuncture / Unknown 08/25/2024 8:38 AM EST 08/25/2024 8:48 AM EST John Dean DO LAB BLOOD ORDERABLES Final Result Performing Organization Address [facility] de Phone Number LAB[facility]ATORY [facility] [address] [place] [address] * (ABNORMAL) PT INR (08/25/2024 8:38 AM EST) Prothrombin Time 16.7(H) 11.6 - 15.2 seconds 08/25/2024 9:24 AM EST LABORATORY C INR 1.3(H) 0.8 - 1.2 08/25/2024 9:24 AM EST LABORATORY C Blood Venous blood specimen / Unknown Venipuncture / Unknown 08/25/2024 8:38 AM EST 08/25/2024 8:48 AM EST Narrative [facility] - 08/25/2024 9:24 AM EST Warfarin Therapy INR: 2.0-3.0 conventional anticoagulation INR: 2.5-3.5 high intensity anticoagulation John Gtprachi Dean DO LAB BLOOD ORDERABLES Final Result [facility] [address] [place] [address] * (ABNORMAL) COMPREHENSIVE METABOLIC PANEL (08/25/2024 8:38 AM EST) BUN 38(H) 6 - 20 mg/dL 08/25/2024 9:18 AM EST LAB[facility]ORY [facility] CREATININE 1.8(H) 0.6 - 1.2 mg/dL 08/25/2024 9:18 AM EST LAB[facility]ORY [facility] EGFR 46(L) >=60 mL/min 08/25/2024 9:18 AM EST LAB[facility]ORY [facility] Comment:eGFR is calculated b ased on the CKD-EPI 2020 equation. SODIUM 125(L) 135 - 146 mmol/L 08/25/2024 9:18 AM EST [facility] POTASSIUM 5.0 3.5 - 5.1 mmol/L 08/25/2024 9:18 AM EST [facility] CHLORIDE 100 98 - 107 mmol/L 08/25/2024 9:18 AM EST [facility] CO2 16(L) 22 - 32 mmol/L 08/25/2024 9:18 AM EST [facility] ANION GAP 9 7 - 15 mmol/L 08/25/2024 9:18 AM EST [facility] GLUCOSE 91 70 - 120 mg/dL 08/25/2024 9:18 AM EST LAB[facility] Albumin 2.8(L) 3.8 - 5.0 g/dL 08/25/2024 9:18 AM EST [facility] AST 19 10 - 50 U/L 08/25/2024 9:18 AM EST [facility] Alkaline Phosphatase 56 35 - 130 U/L 08/25/2024 9:18 AM EST [facility] Bilirubin, Total 1.6(H) <=1.2 mg/dL 08/25/2024 9:18 AM EST [facility] CALCIUM 7.7(L) 8.4 - 10.2 mg/dL 08/25/2024 9:18 AM EST LAB[facility] Protein 5.6(L) 6.0 - 8.3 g/dL 08/25/2024 9:18 AM EST LAB[facility] ALT 14 10 - 50 U/L 08/25/2024 9:18 AM EST LAB[facility] Blood Venous blood specimen / Unknown Venipuncture / Unknown 08/25/2024 8:38 AM EST 08/25/2024 8:48 AM EST John Dean DO LAB BLOOD ORDERABLES Final Result Performing Organization Address [facility]/ZIP Co de Phone Number [facility]ATORY [facility] [address] [place] [address] * (ABNORMAL) HEMOGLOBIN AND HEMATOCRIT PANEL (08/24/2024 6:08 PM EST) HGB 8.2(L) 14.0 - 16.8 g/dL 08/24/2024 6:50 PM EST [facility] HCT 27.7(L) 40.0 - 48.4 % 08/24/2024 6:50 PM EST [facility] Blood Venous blood specimen / Unknown Venipuncture / Unknown 08/24/2024 6:08 PM EST 08/24/2024 6:40 PM EST Darcie Hernandez MD LAB BLOOD ORDERABLES Final Resu lt Performing Organization Address City/[facility]/ZIP Co de Phone Number LABORATORY [address] [address] * TRANSFUSE PACKED RED BLOOD CELLS (08/24/2024 2:36 PM EST) Result [facility] Darcie MENDIETA BANK TRANFUSE ORDERABLES Fi nal Result * TRANSFUSE PACKED RED BLOOD CELLS (08/24/2024 2:36 PM EST) Darcie MENDIETA BANK TRANFUSE ORDERABLES Fi nal Result * TYPE AND SCREEN (08/24/2024 9:06 AM EST) ABO A 08/24/2024 9:47 AM EST [facility] B[facility] Rh Negative 08/24/2024 9:47 AM EST [facility] B[facility] Red Blood Cell Antibody Screen Negative 08/24/2024 9:47 AM EST [facility] Specimen Expiration Date 08/27/2024 23:59 08/24/2024 9:47 AM EST LABORATORY [facility] BLOOD BANK Blood Venous blood specimen / Unknown Venipuncture / Unknown 08/24/2024 9:06 AM EST 08/24/2024 9:12 AM EST Darcie Hernandez MD LAB BLOOD BANK TEST ORDERABLES Final Result [facility] B[facility] [address] [place] [address] * PREPARE PACKED RED BLOOD CELLS (08/24/2024 8:40 AM EST) Unit Product Code [id number] 08/25/2024 12:10 PM EST [facility] Unit Number [id number] 08/25/2024 12:10 PM EST LABORATORY C BLOOD BANK Unit ABO A 08/25/2024 12:10 PM EST [facility] BLOOD BANK Unit Rh NEG 08/25/2024 12:10 PM EST LAB[facility] B[facility] Unit Crossmatch Compatible 08/24/2024 8:54 AM EST LABORATORY C BLOOD BANK Unit Status PT 08/25/2024 12:10 PM EST LAB[facility] Unit Blood Type ANEG 08/25/2024 12:10 PM EST LAB[facility] Unit Expiration [id number] 08/25/2024 12:10 PM EST [facility] B[facility] Unit Barcode 0600 08/25/2024 12:10 PM EST LAB[facility] BLOOD [facility] 08/24/2024 8:40 AM EST Darcie Hernandez MD BLD BANK PRODUCT ORDERABLES Cristopher naren Result - Final LAB[facility]ATORY [facility] BLOOD B[facility] [address] [place] [address] * (ABNORMAL) CBC (08/24/2024 7:58 AM EST) WBC 9.21 4.00 - 10.80 K/uL 08/24/2024 8:19 AM EST LAB[facility] RBC 2.41 4.50 - 5.25 M/uL 08/24/2024 8:19 AM EST LAB[facility] HGB 6.9(L) 14.0 - 16.8 g/dL 08/24/2024 8:19 AM EST LAB[facility] HCT 22.6(L) 40.0 - 48.4 % 08/24/2024 8:19 AM EST [facility] MCV 93.8 82.0 - 99.5 fL 08/24/2024 8:19 AM EST LAB[facility] MCH 28.6 27.0 - 34.0 pg 08/24/2024 8:19 AM EST LAB[facility] MCHC 30.5 32.0 - 36.0 g/dL 08/24/2024 8:19 AM EST [facility] RDW 17.2 11.5 - 15.5 % 08/24/2024 8:19 AM EST LAB[facility] PLT 136(L) 140 - 400 K/uL 08/24/2024 8:19 AM EST [facility] MPV 8.8 6.6 - 11.1 fL 08/24/2024 8:19 AM EST LAB[facility] nRBCs 0 <=0 /100 WBCs 08/24/2024 8:19 AM EST [facility] Blood Venous blood specimen / Unknown Venipuncture / Unknown 08/24/2024 7:58 AM EST 08/24/2024 8:10 AM EST John Dean DO LAB BLOOD ORDERABLES Final Result Performing Organization Address City/[facility] de Phone Number LABORATORY [facility] [address] [place] [address] * PHOSPHORUS (08/24/2024 7:58 AM EST) Phosphorus 4.0 2.5 - 4.8 mg/dL 08/24/2024 8:38 AM EST LAB[facility]ORY [facility] Blood Venous blood specimen / Unknown Venipuncture / Unknown 08/24/2024 7:58 AM EST 08/24/2024 8:10 AM EST John Dean DO LAB BLOOD ORDERABLES Final Result [facility] [address] [place] [address] * MAGNESIUM (08/24/2024 7:58 AM EST) Magnesium 2.6 1.5 - 2.6 mg/dL 08/24/2024 8:38 AM EST LABORATORY C Blood Venous blood specimen / Unknown Venipuncture / Unknown 08/24/2024 7:58 AM EST 08/24/2024 8:10 AM EST John Dean DO LAB BLOOD ORDERABLES Final Result Performing Organization Address [facility] Co de Phone Number LAB[facility]ATORY [facility] [address] [place] [address] * (ABNORMAL) PT INR (08/24/2024 7:58 AM EST) Prothrombin Time 17.5(H) 11.6 - 15.2 seconds 08/24/2024 8:33 AM EST [facility] INR 1.4(H) 0.8 - 1.2 08/24/2024 8:33 AM EST [facility] Blood Venous blood specimen / Unknown Venipuncture / Unknown 08/24/2024 7:58 AM EST 08/24/2024 8:10 AM EST Narrative LABORATORY C - 08/24/2024 8:33 AM EST Warfarin Therapy INR: 2.0-3.0 conventional anticoagulation INR: 2.5-3.5 high intensity anticoagulation John Dean DO LAB BLOOD ORDERABLES Final Result Performing Organization Address City/[facility]/ZIP Co de Phone Number LAB[facility]ATORY [facility] [address] [place] [address] * (ABNORMAL) COMPREHENSIVE METABOLIC PANEL (08/24/2024 7:58 AM EST) BUN 42(H) 6 - 20 mg/dL 08/24/2024 8:38 AM EST [facility] CREATININE 2.0(H) 0.6 - 1.2 mg/dL 08/24/2024 8:38 AM EST [facility] EGFR 40(L) >=60 mL/min 08/24/2024 8:38 AM EST LAB[facility]ATORY [facility] Comment:eGFR is calculated b ased on the CKD-EPI 2020 equation. SODIUM 123(L) 135 - 146 mmol/L 08/24/2024 8:38 AM EST LAB[facility] POTASSIUM 5.1 3.5 - 5.1 mmol/L 08/24/2024 8:38 AM EST LAB[facility] CHLORIDE 98 98 - 107 mmol/L 08/24/2024 8:38 AM EST [facility] CO2 18(L) 22 - 32 mmol/L 08/24/2024 8:38 AM EST [facility] ANION GAP 7 7 - 15 mmol/L 08/24/2024 8:38 AM EST [facility] GLUCOSE 115 70 - 120 mg/dL 08/24/2024 8:38 AM EST LAB[facility] Albumin 2.5(L) 3.8 - 5.0 g/dL 08/24/2024 8:38 AM EST [facility] AST 14 10 - 50 U/L 08/24/2024 8:38 AM EST [facility] Alkaline Phosphatase 52 35 - 130 U/L 08/24/2024 8:38 AM EST LAB[facility] Bilirubin, Total 1.0 <=1.2 mg/dL 08/24/2024 8:38 AM EST LAB[facility] CALCIUM 7.2(L) 8.4 - 10.2 mg/dL 08/24/2024 8:38 AM EST LAB[facility] Protein 5.0(L) 6.0 - 8.3 g/dL 08/24/2024 8:38 AM EST LAB[facility] ALT 12 10 - 50 U/L 08/24/2024 8:38 AM EST LAB[facility]ORY [facility] Blood Venous blood specimen / Unknown Venipuncture / Unknown 08/24/2024 7:58 AM EST 08/24/2024 8:10 AM EST us John Dean DO LAB BLOOD ORDERABLES Final Result LAB[facility]ATORY [facility] [address] [place] [address] * (ABNORMAL) CYSTATIN C WITH EGFR (08/23/2024 7:19 AM EST) Cystatin C 2.60(H) 0.67 - 1.21 mg/L 08/23/2024 1:50 PM EST LAB[facility]ATORY [facility] eGFR (CysC) 23(L) >=60 mL/min 08/23/2024 1:50 PM EST LAB[facility]ATORY [facility] Comment:eGFR is calculated b ased on the CKD-EPI 2012 equation. Blood Venous blood specimen / Unknown Venipuncture / Unknown 08/23/2024 7:19 AM EST 08/23/2024 7:34 AM EST us Darcie Hernandez MD LAB BLOOD ORDERABLES Final Resu lt LAB[facility]ATORY [facility] [address] [place] [address] * (ABNORMAL) CBC (08/23/2024 7:19 AM EST) Pathologist [facility] WBC 7.69 4.00 - 10.80 K/uL 08/23/2024 7:46 AM EST LAB[facility]ATORY [facility] RBC 2.44 4.50 - 5.25 M/uL 08/23/2024 7:46 AM EST LAB[facility]ORY [facility] HGB 7.0(L) 14.0 - 16.8 g/dL 08/23/2024 7:46 AM EST LAB[facility] HCT 22.8(L) 40.0 - 48.4 % 08/23/2024 7:46 AM EST LAB[facility] MCV 93.4 82.0 - 99.5 fL 08/23/2024 7:46 AM EST LAB[facility] MCH 28.7 27.0 - 34.0 pg 08/23/2024 7:46 AM EST LAB[facility] MCHC 30.7 32.0 - 36.0 g/dL 08/23/2024 7:46 AM EST LAB[facility] RDW 17.2 11.5 - 15.5 % 08/23/2024 7:46 AM EST LAB[facility] PLT 160 140 - 400 K/uL 08/23/2024 7:46 AM EST LAB[facility] MPV 9.4 6.6 - 11.1 fL 08/23/2024 7:46 AM EST LAB[facility]ATORY [facility] nRBCs 0 <=0 /100 WBCs 08/23/2024 7:46 AM EST LAB[facility]ORY [facility] Blood Venous blood specimen / Unknown Venipuncture / Unknown 08/23/2024 7:19 AM EST 08/23/2024 7:34 AM EST Johndeysi Del Real Kenzierojaskenzie DO LAB BLOOD ORDERABLES Final Result Performing Organization Address City/[facility]/ZIP Co de Phone Number LAB[facility]ATORY [facility] [address] [place] [address] * PHOSPHORUS (08/23/2024 7:19 AM EST) Phosphorus 3.9 2.5 - 4.8 mg/dL 08/23/2024 8:17 AM EST LAB[facility]ATORY [facility] Blood Venous blood specimen / Unknown Venipuncture / Unknown 08/23/2024 7:19 AM EST 08/23/2024 7:34 AM EST John Gtprachi Dean DO LAB BLOOD ORDERABLES Final Result Performing Organization Address [facility] de Phone Number LAB[facility]ATORY [facility] [address] [place] [address] * (ABNORMAL) MAGNESIUM (08/23/2024 7:19 AM EST) Magnesium 2.7(H) 1.5 - 2.6 mg/dL 08/23/2024 8:17 AM EST LAB[facility]ATORY [facility] Blood Venous blood specimen / Unknown Venipuncture / Unknown 08/23/2024 7:19 AM EST 08/23/2024 7:34 AM EST John Dean DO LAB BLOOD ORDERABLES Final Result Performing Organization Address City/[facility] Co de Phone Number LAB[facility]ATORY [facility] [address] [place] [address] * (ABNORMAL) COMPREHENSIVE METABOLIC PANEL (08/23/2024 7:19 AM EST) BUN 44(H) 6 - 20 mg/dL 08/23/2024 8:17 AM EST LAB[facility]ORY [facility] CREATININE 2.0(H) 0.6 - 1.2 mg/dL 08/23/2024 8:17 AM EST LAB[facility]ATORY [facility] EGFR 41(L) >=60 mL/min 08/23/2024 8:17 AM EST LAB[facility]ATORY [facility] Comment:eGFR is calculated b ased on the CKD-EPI 2020 equation. SODIUM 125(L) 135 - 146 mmol/L 08/23/2024 8:17 AM EST LAB[facility]ORY [facility] POTASSIUM 4.8 3.5 - 5.1 mmol/L 08/23/2024 8:17 AM EST LAB[facility] CHLORIDE 98 98 - 107 mmol/L 08/23/2024 8:17 AM EST LAB[facility]ORY [facility] CO2 18(L) 22 - 32 mmol/L 08/23/2024 8:17 AM EST LAB[facility] ANION GAP 9 7 - 15 mmol/L 08/23/2024 8:17 AM EST LAB[facility] GLUCOSE 121(H) 70 - 120 mg/dL 08/23/2024 8:17 AM EST LAB[facility]ORY [facility] Albumin 2.4(L) 3.8 - 5.0 g/dL 08/23/2024 8:17 AM EST LAB[facility] AST 17 10 - 50 U/L 08/23/2024 8:17 AM EST LAB[facility] Alkaline Phosphatase 53 35 - 130 U/L 08/23/2024 8:17 AM EST LAB[facility]ORY [facility] Bilirubin, Total 1.5(H) <=1.2 mg/dL 08/23/2024 8:17 AM EST LAB[facility]ORY [facility] CALCIUM 7.3(L) 8.4 - 10.2 mg/dL 08/23/2024 8:17 AM EST LAB[facility]ORY [facility] Protein 4.9(L) 6.0 - 8.3 g/dL 08/23/2024 8:17 AM EST LAB[facility]ATORY [facility] ALT 12 10 - 50 U/L 08/23/2024 8:17 AM EST LAB[facility]ORY [facility] Blood Venous blood specimen / Unknown Venipuncture / Unknown 08/23/2024 7:19 AM EST 08/23/2024 7:34 AM EST John Gtprachi Dean LAB BLOOD ORDERABLES Final Result LABORATORY C [address] [place] [address] * (ABNORMAL) PT INR (08/23/2024 7:18 AM EST) Prothrombin Time 17.6(H) 11.6 - 15.2 seconds 08/23/2024 8:24 AM EST LAB[facility]ATORY [facility] INR 1.4(H) 0.8 - 1.2 08/23/2024 8:24 AM EST LAB[facility]ATORY [facility] Blood Venous blood specimen / Unknown Venipuncture / Unknown 08/23/2024 7:18 AM EST 08/23/2024 7:34 AM EST Narrative LABORATORY [facility] - 08/23/2024 8:24 AM EST Warfarin Therapy INR: 2.0-3.0 conventional anticoagulation INR: 2.5-3.5 high intensity anticoagulation John Gt Espinomeprimo LAB BLOOD ORDERABLES Final Result Performing Organization Address City/[facility]/ZIP Co de Phone Number LABORATORY [facility] [address] [place] [address] * (ABNORMAL) HEMOGLOBIN AND HEMATOCRIT PANEL (08/22/2024 8:41 PM EST) HGB 7.5(L) 14.0 - 16.8 g/dL 08/22/2024 8:58 PM EST LAB[facility]ATORY [facility] HCT 24.4(L) 40.0 - 48.4 % 08/22/2024 8:58 PM EST LAB[facility]ATORY [facility] Blood Venous blood specimen / Unknown Venipuncture / Unknown 08/22/2024 8:41 PM EST 08/22/2024 8:50 PM EST Mariana Tran PA-C LAB BLOOD ORDERABLES Final Resu lt LABORATORY [facility] [address] [place] [address] * TRANSFUSE PACKED RED BLOOD CELLS (08/22/2024 3:43 PM EST) Result [facility] Darcie MENDIETA BANK TRANFUSE ORDERABLES Fi nal Result * TRANSFUSE PACKED RED BLOOD CELLS (08/22/2024 3:43 PM EST) Result [facility] Darcie MENDIETA BANK TRANFUSE ORDERABLES Fi nal Result * RI ABDOM PARACENTESIS DX/THER W/IMAGING GUIDANCE (08/22/2024 3:41 PM EST) Narrative Mao Ely MD - 08/22/2024 3:41 PM EST Mao Ely MD 08/22/2024 3:47 PM Paracentesis Procedure Date/Time : 08/22/2024 2:10 PM Performed by: Mao Ely MD Authorized by: Mao Ely MD [place] Protocol: Verbal consent obtained?: Yes Written consent obtained?: Yes Consent given by: Patient Patient states understanding of procedure being performed: Yes Patient's understanding of procedure matches verbalized consent: Yes Procedure consent matches procedure scheduled: Yes Site marked: Yes Verify correct position: Yes Required items: Required blood products, implants, devices and special equipment available Patient identity confirmed: Verbally with patient and arm band Verbal confirmation: MRN, name and date of Other healthcare professional(s) verbalize(s) agreement with timeout: Yes Time out: Immediately prior to the procedure a time out was called A time out verifies correct patient, procedure, equipment, support team member and site/side marked as required. Anticoagulation/Anti-platelet Therapy: Risks discussed: Bleeding, bowel perforation, infection and pain Indications: Initial or subsequent procedure: Subsequent Procedure purpose: Diagnostic and therapeutic Indications: abdominal discomfort secondary to ascites, secondary bacterial peritonitis and suspected peritonitis Anesthesia: Local anesthesia used?: Yes Local anesthetic: Lidocaine 1% without epinephrine Anesthetic total (ml): 5 Sedation: Patient sedated: No Procedure details: Preparation: Patient was prepped and draped in usual sterile fashion Needle gauge: 18 Ultrasound guided: Yes Puncture site: Right lower quadrant Fluid removed (ml): 9000 Fluid appearance: Cloudy (Yellow) Dressinx4 sterile gauze and pressure dressing Patient tolerance: Patient tolerated the procedure well with no immediate complications Attestation: Attestation: I personally performed the procedure myself Result [facility] Mao Ely MD PROCEDURE REPORT Final Result * ALBUMIN, BODY FLUID (08/22/2024 2:31 PM EST) Albumin, Body Fluid <1.0 g/dL 08/22 4:04 PM EST LABORATORY [facility] Comment: The reference interval(s) and other method performance specifications may not be available for this body fluid. Comparison of this result with the concentration in the blood, serum, or plasma is recommended. The test result must be integrated into the clinical context for interpretation. Please refer to test catalog ([email or web address]_[email or web address]) for additional interpretive information. This test was developed and its performance characteristics determined by [employer]. It has not been cleared or approved by the [place] Food and Drug Administration. Body Fluid Specimen from wound / Unknown Non-blood Collection / Unknown 08/22/2024 2:31 PM EST 08/22/2024 3:19 PM EST Darcie Hernandez MD LAB FLUID AND STOOL ORDERABLES Final Result LABORATORY [facility] [address] [place] [address] * PROTEIN, BODY FLUID (08/22/2024 2:31 PM EST) Protein, Body Fluid 1.2 g/dL 08/22 4:04 PM EST LAB[facility]ORY [facility] Comment: The reference interval(s) and other method performance specifications may not be available for this body fluid. Comparison of this result with the concentration in the blood, serum, or plasma is recommended. The test result must be integrated into the clinical context for interpretation. Please refer to test catalog ([email or web address]/body_fluids.[email or web address]) for additional interpretive information. This test was developed and its performance characteristics determined by [employer]. It has not been cleared or approved by the [place] Food and Drug Administration. Body Fluid Specimen from wound / Unknown Non-blood Collection / Unknown 08/22/2024 2:31 PM EST 08/22/2024 3:19 PM EST Darcie Hernandez MD LAB FLUID AND STOOL ORDERABLES Final Result Performing Organization Address [facility]/ZIP Co de Phone Number [facility] [address] [place] [address] * CULTURE, BODY FLUID, AEROBIC (08/22/2024 2:31 PM EST) Pathologist [facility] Culture Growth No growth 08/25/2024 9:31 AM EST [facility] Stain Description No polymorphonuclear leukocytes seen 08/25/2024 9:31 AM EST [facility] Stain Description No organisms seen 08/25/2024 9:31 AM EST [facility] Body Fluid Specimen from wound / Unknown Non-blood Collection / Unknown 08/22/2024 2:31 PM EST 08/22/2024 3:19 PM EST Darcie Hernandez MD LAB MICRO - GENERAL ORDERABLES Final Result Performing Organization Address [facility] de Phone Number [facility] [address] [place] [address] * MANUAL DIFFERENTIAL, BODY FLUID (08/22/2024 2:31 PM EST) Pathologist [facility] Total Nucleated Cell Count, Fluid 38 cells/uL 08/22/2024 6:14 PM EST [facility] Neutrophils % 13 % 08/22/2024 6:14 PM EST [facility] Lymphocytes % 61 % 08/22/2024 6:14 PM EST [facility] Monocytes % 24 % 08/22/2024 6:14 PM EST [facility] Eosinophils % 2 % 08/22/2024 6:14 PM EST [facility] Basophils % 2 % 08/22/2024 6:14 PM EST [facility] Absolute Neutrophils 4.94 cells/uL 08/22/2024 6:14 PM EST [facility] Absolute Lymphocytes 23.18 cells/uL 08/22/2024 6:14 PM EST [facility] Absolute Monocytes 9.12 cells/uL 08/22/2024 6:14 PM EST [facility] Absolute Eosinophils 0.76 cells/uL 08/22/2024 6:14 PM EST [facility] Absolute Basophils 0.76 cells/uL 08/22/2024 6:14 PM EST [facility] Body Fluid Ascites / Unknown Non-blood Collection / Unknown 08/22/2024 2:31 PM EST 08/22/2024 3:19 PM EST Narrative [facility] - 08/22/2024 6:14 PM EST Some reference ranges and other method performance specifications have not been established for this fluid. The test results must be integrated into the clinical context for interpretation. Darcie Hernandez MD LAB FLUID AND STOOL ORDERABLES Final Result Performing Organization Address City/[facility]/ZIP Co de Phone Number LAB[facility]ATORY [facility] [address] [place] [address] * (ABNORMAL) CELL COUNT, BODY FLUID (08/22/2024 2:31 PM EST) Clarity, Fluid Cloudy(A) Clear 08/22/2024 6:13 PM EST LAB[facility]ATORY [facility] Color, Fluid Yellow Straw, Yellow, Colorless 08/22/2024 6:13 PM EST [facility] Total Nucleated Cell Count, Fluid 38 cells/uL 08/22/2024 6:13 PM EST LAB[facility] RBC, Fluid 873 cells/uL 08/22/2024 6:13 PM EST LAB[facility]ORY [facility] Body Fluid Ascites / Unknown Non-blood Collection / Unknown 08/22/2024 2:31 PM EST 08/22/2024 3:19 PM EST Narrative LAB[facility]ATORY [facility] - 08/22/2024 6:13 PM EST Some reference ranges and other method performance specifications have not been established for this fluid. The test results must be integrated into the clinical context for interpretation. Darcie Hernandez MD LAB FLUID AND STOOL ORDERABLES Final Result Performing Organization Address City/[facility]/ZIP Co de Phone Number LAB[facility]ATORY [facility] [address] [place] [address] * XR CHEST 1 VIEW (08/22/2024 8:58 AM EST) Anatomical Region Laterality Modality Chest Computed Radiogr aphy 08/22/2024 9:28 AM EST Impressions 08/22/2024 9:26 AM EST IMPRESSION: Patchy bibasilar opacities are felt to most likely represent atelectasis given the low lung volumes. If clinical concern persists, recommend PA and lateral chest x-ray which will better characterize the posterior lung bases, otherwise partially obscured using portable technique. Narrative 08/22/2024 9:26 AM EST EXAM: XR CHEST 1 VIEW - 08/22/2024 8:58 am HISTORY: To r/o cardiopulmonary source of infection TECHNIQUE: Single portable AP view of the chest COMPARISON: None FINDINGS: Catheters/tubes/devices/foreign bodies: None. Low lung volumes with patchy bibasilar atelectasis. No consolidation or effusion. No evidence of pneumothorax. Cardiomediastinal silhouette is within normal limits. Osseous structures are unremarkable. Procedure Note Micky Roberts, DO - 08/22/2024 EXAM: XR CHEST 1 VIEW - 08/22/2024 8:58 am HISTORY: To r/o cardiopulmonary source of infection TECHNIQUE: Single portable AP view of the chest COMPARISON: None FINDINGS: Catheters/tubes/devices/foreign bodies: None. Low lung volumes with patchy bibasilar atelectasis. No consolidation or effusion. No evidence of pneumothorax. Cardiomediastinal silhouette is within normal limits. Osseous structures are unremarkable. IMPRESSION IMPRESSION: Patchy bibasilar opacities are felt to most likely represent atelectasisgiven the low lung volumes. If clinical concern persists, recommend PAand lateral chest x-ray which will better characterize the posterior lungbases, otherwise partially obscured using portable technique. us Darcie Hernandez MD RADIOLOGY (RAD GENERAL) Final R esult * PREPARE PACKED RED BLOOD CELLS (08/22/2024 8:40 AM EST) Unit Product Code [id number] 08/23/2024 2:10 PM EST LAB[facility]ATORY [facility] BLOOD BANK Unit Number [id number] 08/23/2024 2:10 PM EST LAB[facility]ATORY [facility] BLOOD [facility] Unit ABO A 08/23/2024 2:10 PM EST LAB[facility] B[facility]OD [facility] Unit Rh POS 08/23/2024 2:10 PM EST LAB[facility]ATORY [facility] B[facility]OD [facility] Unit Crossmatch Compatible 08/22/2024 1:03 PM EST LAB[facility]ATORY [facility] BLOOD [facility] Unit Status PT 08/23/2024 2:10 PM EST LABORATORY [facility] BLOOD [facility] Unit Blood Type APOS 08/23/2024 2:10 PM EST LABORATORY [facility] BLOOD BANK Unit Expiration [id number] 08/23/2024 2:10 PM EST LAB[facility]ATORY [facility] BLOOD B[facility] Unit Barcode [id number] 08/23/2024 2:10 PM EST LAB[facility]ATORY [facility] BLOOD BANK 08/22/2024 8:40 AM EST us Darcie Hernandez MD BLD BANK PRODUCT ORDERABLES Cristopher naren Result - Final LABORATORY [facility] BLOOD BANK [address] [place] [address] * PHOSPHATIDYLETHANOL, BLOOD (08/22/2024 6:01 AM EST) [facility] Signature PEth 16:0/18:1 (POPEth) NEGATIVE <20 ng/mL 08/26/2024 1:01 PM EST [facility] PEth 16:0/18:2 (PLPEth) NEGATIVE <20 ng/mL 08/26/2024 1:01 PM EST [facility] PEth Comments SEE BELOW 08/26/2024 1:01 PM EST [facility] Comment: See LDT Notes Notes and Comments This drug testing is for medical treatment only. Analysis was performed as non-forensic testing and these results should be used only by healthcare providers to render diagnosis or treatment, or to monitor progress of medical conditions. LDT Notes: These tests were developed and their analytical performance characteristics have been determined by [facility]. They have not been cleared or approved by the FDA. These assays have been validated pursuant to the CLIA regulations and are used for clinical purposes. Healthcare Providers needing Interpretation assistance, please contact us at [phone] ( )M-F, 8am to 10pm EST Test Performed at: [facility] [address] [address] Anil Wilburn M.D., Ph.D.,Director of Laboratories Blood Venous blood specimen / Unknown Venipuncture / Unknown 08/22/2024 6:01 AM EST 08/22/2024 6:08 AM EST us Darcie Hernandez MD LAB BLOOD ORDERABLES Final Resu lt Performing Organization Address City/State/[facility] Co de Phone Number [facility] [address] [place] [address] * (ABNORMAL) CBC (08/22/2024 6:01 AM EST) WBC 8.46 4.00 - 10.80 K/uL 08/22/2024 6:19 AM EST LAB[facility]ATORY [facility] RBC 2.18 4.50 - 5.25 M/uL 08/22/2024 6:19 AM EST [facility] HGB 6.3(L) 14.0 - 16.8 g/dL 08/22/2024 6:19 AM EST LAB[facility] HCT 20.0(L) 40.0 - 48.4 % 08/22/2024 6:19 AM EST [facility] MCV 91.7 82.0 - 99.5 fL 08/22/2024 6:19 AM EST [facility] MCH 28.9 27.0 - 34.0 pg 08/22/2024 6:19 AM EST LAB[facility] MCHC 31.5 32.0 - 36.0 g/dL 08/22/2024 6:19 AM EST [facility] RDW 17.2 11.5 - 15.5 % 08/22/2024 6:19 AM EST [facility] PLT 181 140 - 400 K/uL 08/22/2024 6:19 AM EST [facility] MPV 9.1 6.6 - 11.1 fL 08/22/2024 6:19 AM EST [facility] nRBCs 0 <=0 /100 WBCs 08/22/2024 6:19 AM EST [facility] Blood Venous blood specimen / Unknown Venipuncture / Unknown 08/22/2024 6:01 AM EST 08/22/2024 6:08 AM EST us John Gt Vamadeva DO LAB BLOOD ORDERABLES Final Result Performing Organization Address [facility]/ZIP Co de Phone Number LAB[facility]ATORY [facility] [address] [place] [address] * PHOSPHORUS (08/22/2024 6:01 AM EST) Phosphorus 4.0 2.5 - 4.8 mg/dL 08/22/2024 6:37 AM EST [facility] Blood Venous blood specimen / Unknown Venipuncture / Unknown 08/22/2024 6:01 AM EST 08/22/2024 6:08 AM EST John Dean DO LAB BLOOD ORDERABLES Final Result Performing Organization Address [facility] Co de Phone Number LABORATORY [facility] [address] [place] [address] * (ABNORMAL) MAGNESIUM (08/22/2024 6:01 AM EST) Magnesium 2.8(H) 1.5 - 2.6 mg/dL 08/22/2024 6:37 AM EST LAB[facility]ORY [facility] Blood Venous blood specimen / Unknown Venipuncture / Unknown 08/22/2024 6:01 AM EST 08/22/2024 6:08 AM EST John Dean DO LAB BLOOD ORDERABLES Final Result Performing Organization Address [facility] de Phone Number LABORATORY [facility] [address] [place] [address] * (ABNORMAL) PT INR (08/22/2024 6:01 AM EST) Prothrombin Time 16.9(H) 11.6 - 15.2 seconds 08/22/2024 6:31 AM EST LAB[facility]ATORY [facility] INR 1.4(H) 0.8 - 1.2 08/22/2024 6:31 AM EST [facility] Blood Venous blood specimen / Unknown Venipuncture / Unknown 08/22/2024 6:01 AM EST 08/22/2024 6:08 AM EST Narrative LAB[facility]ATORY [facility] - 08/22/2024 6:31 AM EST Warfarin Therapy INR: 2.0-3.0 conventional anticoagulation INR: 2.5-3.5 high intensity anticoagulation us John Dean DO LAB BLOOD ORDERABLES Final Result LAB[facility]ATORY [facility] [address] [place] [address] * (ABNORMAL) COMPREHENSIVE METABOLIC PANEL (08/22/2024 6:01 AM EST) BUN 59(H) 6 - 20 mg/dL 08/22/2024 6:37 AM EST LABORATORY [facility] CREATININE 2.5(H) 0.6 - 1.2 mg/dL 08/22/2024 6:37 AM EST LABORATORY [facility] EGFR 31(L) >=60 mL/min 08/22/2024 6:37 AM EST LABORATORY [facility] Comment:eGFR is calculated b ased on the CKD-EPI 2020 equation. SODIUM 124(L) 135 - 146 mmol/L 08/22/2024 6:37 AM EST LABORATORY [facility] POTASSIUM 5.6(H) 3.5 - 5.1 mmol/L 08/22/2024 6:37 AM EST [facility] CHLORIDE 98 98 - 107 mmol/L 08/22/2024 6:37 AM EST LAB[facility] CO2 18(L) 22 - 32 mmol/L 08/22/2024 6:37 AM EST LABORATORY [facility] ANION GAP 8 7 - 15 mmol/L 08/22/2024 6:37 AM EST [facility] GLUCOSE 105 70 - 120 mg/dL 08/22/2024 6:37 AM EST LAB[facility] Albumin 2.6(L) 3.8 - 5.0 g/dL 08/22/2024 6:37 AM EST LAB[facility] AST 20 10 - 50 U/L 08/22/2024 6:37 AM EST LABORATORY [facility] Alkaline Phosphatase 59 35 - 130 U/L 08/22/2024 6:37 AM EST LABORATORY [facility] Bilirubin, Total 1.7(H) <=1.2 mg/dL 08/22/2024 6:37 AM EST LABORATORY [facility] CALCIUM 7.5(L) 8.4 - 10.2 mg/dL 08/22/2024 6:37 AM EST LAB[facility] Protein 5.1(L) 6.0 - 8.3 g/dL 08/22/2024 6:37 AM EST LABORATORY [facility] ALT 13 10 - 50 U/L 08/22/2024 6:37 AM EST LAB[facility]ORY [facility] Blood Venous blood specimen / Unknown Venipuncture / Unknown 08/22/2024 6:01 AM EST 08/22/2024 6:08 AM EST us John Dean DO LAB BLOOD ORDERABLES Final Result LAB[facility]ATORY [facility] [address] [place] [address] * ELECTROLYTES, RANDOM URINE (08/21/2024 9:33 PM EST) Sodium, Random Urine <20 mmol/L 08/22/2024 11:12 AM EST LAB[facility] Potassium, Random Urine 26.1 mmol/L 08/22/2024 11:12 AM EST LAB[facility] Chloride, Random Urine <20 mmol/L 08/22/2024 11:12 AM EST LAB[facility] Urine Urine specimen obtained by clean catch procedure / Unknown Non-blood Collection / Unknown 08/21/2024 9:33 PM EST 08/21/2024 9:47 PM EST us Darcie Hernandez MD LAB URINE ORDERABLES Final Resu lt LAB[facility]ORY [facility] [address] [place] [address] * URINALYSIS, REFLEX TO CULTURE (08/21/2024 9:33 PM EST) Color, Urine Light Yellow Colorless, Light Yellow, Yellow, Dark Yellow 08/21/2024 9:55 PM EST LABORATORY [facility] Clarity, Urine Clear Clear 08/21/2024 9:55 PM EST LAB[facility] Glucose, Urine Negative Negative mg/dL 08/21/2024 9:55 PM EST LAB[facility]ORY [facility] Bilirubin, Urine Negative Negative 08/21/2024 9:55 PM EST LAB[facility] Ketone, Urine Negative Negative mg/dL 08/21/2024 9:55 PM EST LAB[facility] Specific [place], Urine 1.014 1.003 - 1.030 08/21/2024 9:55 PM EST LAB[facility] Blood, Urine Negative Negative 08/21/2024 9:55 PM EST LAB[facility] pH, Urine 5.5 5.0 - 7.5 Units 08/21/2024 9:55 PM EST LAB[facility] Protein, Urine Negative Negative mg/dL 08/21/2024 9:55 PM EST LAB[facility] Urobilinogen, Urine Normal Normal mg/dL 08/21/2024 9:55 PM EST LAB[facility]ATORY [facility] Nitrite, Urine Negative Negative 08/21/2024 9:55 PM EST LAB[facility] Esterase, Urine Negative Negative 08/21/2024 9:55 PM EST LAB[facility] RBC, Urine 0-2 0 - 2 /HPF 08/21/2024 9:55 PM EST LAB[facility] WBC, Urine 0-2 0 - 2 /HPF 08/21/2024 9:55 PM EST LAB[facility] Bacteria, Urine 0-25 0 - 25 /HPF 08/21/2024 9:55 PM EST LAB[facility]ORY [facility] Culture, Urine 08/21/2024 9:55 PM EST LAB[facility] Comment:Culture not indicate d by urinalysis results Urine Urine specimen obtained by clean catch procedure / Unknown Non-blood Collection / Unknown 08/21/2024 9:33 PM EST 08/21/2024 9:47 PM EST John Dean DO LAB URINE ORDERABLES Final Result [facility] [address] [place] [address] * URINALYSIS, REFLEX TO CULTURE (CUP ONLY) (08/21/2024 9:33 PM EST) Urinalysis, Reflex to Culture Specimen Specimen collected and received 08/21/2024 11:01 PM EST LAB[facility] Urine Urine specimen obtained by clean catch procedure / Unknown Non-blood Collection / Unknown 08/21/2024 9:33 PM EST 08/21/2024 9:47 PM EST us John Dean DO LAB URINE ORDERABLES Final Result [facility] [address] [place] [address] * PHOSPHATIDYLETHANOL, BLOOD (08/21/2024 6:22 PM EST) [facility] PEth 16:0/18:1 (POPEth) NEGATIVE <20 ng/mL 08/25/2024 2:19 PM EST [facility] PEth 16:0/18:2 (PLPEth) NEGATIVE <20 ng/mL 08/25/2024 2:19 PM EST [facility] PEt Comments SEE BELOW 08/25/2024 2:19 PM EST [facility] Comment: See LDT Notes Notes and Comments This drug testing is for medical treatment only. Analysis was performed as non-forensic testing and these results should be used only by healthcare providers to render diagnosis or treatment, or to monitor progress of medical conditions. LDT Notes: These tests were developed and their analytical performance characteristics have been determined by [facility] [facility]. They have not been cleared or approved by the FDA. These assays have been validated pursuant to the CLIA regulations and are used for clinical purposes. Healthcare Providers needing Interpretation assistance, please contact us at [phone] ( )M-F, 8am to 10pm EST Test Performed at: [facility] [address] [place] [address] Anil Wilburn M.D., Ph.D.,Director of Laboratories Blood Venous blood specimen / Unknown Venipuncture / Unknown 08/21/2024 6:22 PM EST 08/21/2024 6:28 PM EST us John Dean DO LAB BLOOD ORDERABLES Final Result [facility] [address] [place] [address] * GLUCOSE METER, POINT OF CARE (08/21/2024 5:27 PM EST) Glucose - POCT 86 70 - 120 mg/dL 08/21/2024 5:31 PM EST [facility] Blood Whole blood specimen / Unknown 08/21/2024 5:27 PM EST 08/21/2024 5:30 PM EST us Darcie Hernandez MD LAB POINT OF CARE TE ST DOCKED DEVICE UNSOLICITED RESULTS Final Result [facility] [address] [place] [address] * (ABNORMAL) GLUCOSE METER, POINT OF CARE (08/21/2024 3:47 PM EST) [facility] Glucose - POCT 58(L) 70 - 120 mg/dL 08/21/2024 3:49 PM EST [facility] Blood Whole blood specimen / Unknown 08/21/2024 3:47 PM EST 08/21/2024 3:49 PM EST us Darcie Hernandez MD LAB POINT OF CARE TE ST DOCKED DEVICE UNSOLICITED RESULTS Final Result [facility] [address] [place] [address] * (ABNORMAL) POTASSIUM, WHOLE BLOOD (08/21/2024 3:47 PM EST) [facility] Potassium 5.6(H) 3.5 - 5.1 mmol/L 08/21/2024 3:59 PM EST LABORATORY [facility] Blood Venous blood specimen / Unknown Venipuncture / Unknown 08/21/2024 3:47 PM EST 08/21/2024 3:52 PM EST us John Dean DO LAB BLOOD ORDERABLES Final Result [facility] [address] [place] [address] * ECHO, COMPLETE (2D), TRANS-THORACIC (08/21/2024 2:34 PM EST) 08/21/2024 2:09 PM EST us Radha Elvia DO ECHOCARDIOLOGY Final Resul t [facility] * RESPIRATORY PATHOGEN PANEL, PCR (08/21/2024 1:07 PM EST) Adenovirus by PCR Negative Negative 025 2:24 PM EST LABORATORY [facility] Coronavirus 229E by PCR Negative Negative 08/21/2024 2:24 PM EST LABORATORY [facility] Coronavirus HKU1 by PCR Negative Negative 08/21/2024 2:24 PM EST LAB[facility] Coronavirus NL63 by PCR Negative Negative 08/21/2024 2:24 PM EST LAB[facility] Coronavirus OC43 by PCR Negative Negative 08/21/2024 2:24 PM EST LAB[facility]ORY [facility] Coronavirus SARS-CoV-2 by PCR Negative Negative 08/21/2024 2:24 PM EST LAB[facility]ORY [facility] Human Metapneumovirus by PCR Negative Negative 08/21/2024 2:24 PM EST LAB[facility]ORY [facility] Rhinovirus/Enterovi susanne by PCR Negative Negative 08/21/2024 2:24 PM EST LAB[facility]ORY [facility] Influenza A Virus by PCR Negative Negative 08/21/2024 2:24 PM EST LABORATORY [facility] Influenza B Virus by PCR Negative Negative 08/21/2024 2:24 PM EST LABORATORY [facility] Parainfluenza Virus 1 by PCR Negative Negative 08/21/2024 2:24 PM EST LAB[facility]ORY [facility] Parainfluenza Virus 2 by PCR Negative Negative 08/21/2024 2:24 PM EST LAB[facility]ORY [facility] Parainfluenza Virus 3 by PCR Negative Negative 08/21/2024 2:24 PM EST LABORATORY [facility] Parainfluenza Virus 4 by PCR Negative Negative 08/21/2024 2:24 PM EST LABORATORY [facility] Respiratory Syncytial Virus by PCR Negative Negative 08/21/2024 2:24 PM EST LABORATORY [facility] Bordetella pertussis by PCR Negative Negative 08/21/2024 2:24 PM EST LABORATORY [facility] Chlamydia pneumoniae by PCR Negative Negative 08/21/2024 2:24 PM EST LABORATORY [facility] Mycoplasma pneumoniae by PCR Negative Negative 08/21/2024 2:24 PM EST LABOR[facility]ORY [facility] Bordetella parapertussis by PCR Negative Negative 08/21/2024 2:24 PM EST LABORATORY [facility] Comment: The primers that detect Rhinovirus may cross react with some Enterorviruses. The validation of bronchial specimens, tracheal aspirates, and throats for this assay was developed and performance characteristics determined by [employer]. The validation of alternate specimen types has not been cleared or approved by the U.S. Food and Drug Administration (FDA). It has been determined that such clearance or approval is not necessary. Upper Respiratory Mid-turbinate nasal swab / Unknown Non-blood Collection / Unknown 08/21/2024 1:07 PM EST 08/21/2024 1:20 PM EST John Gt Dean LAB MICRO - GENERAL ORDERABLES Final Result Performing Organization Address City/[facility]/ZIP Co de Phone Number LABORATORY [facility] [address] [place] [address] * ECHO, COMPLETE (2D), TRANS-THORACIC (08/21/2024 12:53 PM EST) LEFT VENTRICULAR EJECTION FRACTION 55 % [facility] 08/21/2024 12:1 2 PM EST John Dean ECHOCARDIOLOGY Sandy l Result Performing Organization Address City/[facility]/ZIP Co de Phone Number [facility] * (ABNORMAL) POTASSIUM, WHOLE BLOOD (08/21/2024 12:10 PM EST) Potassium 5.9(H) 3.5 - 5.1 mmol/L 08/21/2024 12:22 PM EST LABORATORY [facility] Blood Venous blood specimen / Unknown Venipuncture / Unknown 08/21/2024 12:10 PM EST 08/21/2024 12:19 PM EST John Gt VaGentiskenzie LAB BLOOD ORDERABLES Final Result Performing Organization Address City/[facility]/ZIP Co de Phone Number LABORATORY [facility] [address] [place] [address] * LACTATE (08/21/2024 12:10 PM EST) Lactate 1.7 0.4 - 2.0 mmol/L 08/21/2024 1:15 PM EST LAB[facility]ATORY [facility] Blood Venous blood specimen / Unknown Venipuncture / Unknown 08/21/2024 12:10 PM EST 08/21/2024 12:51 PM EST John Dean DO LAB BLOOD ORDERABLES Final Result Performing Organization Address [facility] Co de Phone Number LABORATORY [facility] [address] [place] [address] * CULTURE, BLOOD (08/21/2024 12:10 PM EST) Blood Culture Growth No growth 08/26/2024 1:01 PM EST LAB[facility]ATORY [facility] Blood Venous blood specimen / Unknown Venipuncture / Unknown 08/21/2024 12:10 PM EST 08/21/2024 12:41 PM EST John Dean DO LAB MICRO - GENERAL ORDERABLES Final Result Performing Organization Address [facility] Co de Phone Number LABORATORY [facility] [address] [place] [address] * CULTURE, BLOOD (08/21/2024 12:05 PM EST) Blood Culture Growth No growth 08/26/2024 1:01 PM EST LAB[facility]ORY [facility] Blood Venous blood specimen / Unknown Venipuncture / Unknown 08/21/2024 12:05 PM EST 08/21/2024 12:41 PM EST John Dean DO LAB MICRO - GENERAL ORDERABLES Final Result Performing Organization Address City/[facility]/ZIP Co de Phone Number LABORATORY [facility] [address] [place] [address] * (ABNORMAL) RETICULOCYTE PANEL (08/21/2024 10:57 AM EST) [facility] Reticulocyte Percent 4.46(H) 0.80 - 1.90 % 08/21/2024 11:15 AM EST LABORATORY [facility] Absolute Reticulocyte 100.4(H) 31.3 - 100.1 K/uL 08/21/2024 11:15 AM EST LABORATORY [facility] Immature Reticuloctye Fraction 34.3(H) 2.5 - 20.6 % 08/21/2024 11:15 AM EST LAB[facility]ATORY [facility] Reticulocyte Hemoglobin 24.1(L) 29.7 - 37.4 pg 08/21/2024 11:15 AM EST LAB[facility]ATORY [facility] Blood Venous blood specimen / Unknown Venipuncture / Unknown 08/21/2024 10:57 AM EST 08/21/2024 11:04 AM EST [facility] LAB BLOOD ORDERABLES Final Result LAB[facility]AT[facility] [address] [place] [address] * HAPTOGLOBIN (08/21/2024 10:57 AM EST) [facility] Haptoglobin 116 30 - 200 mg/dL 08/21/2024 12:13 PM EST LAB[facility]ATORY [facility] Blood Venous blood specimen / Unknown Venipuncture / Unknown 08/21/2024 10:57 AM EST 08/21/2024 11:05 AM EST John [facility] DO LAB BLOOD ORDERABLES Final Result LABOR[facility] [address] [place] [address] * LD (08/21/2024 10:57 AM EST) [facility] LD 153 <=250 U/L 08/21/2024 11:34 AM EST LAB[facility]ORY [facility] Blood Venous blood specimen / Unknown Venipuncture / Unknown 08/21/2024 10:57 AM EST 08/21/2024 11:05 AM EST John Del Real Kenizejose [email or web address] DO LAB BLOOD ORDERABLES Final Result [facility] [address] [place] [address] * FERRITIN (08/21/2024 10:57 AM EST) Pathologist [facility] Ferritin 78 30 - 400 ng/mL 08/21/2024 12:38 PM EST LABORATORY [facility] Blood Venous blood specimen / Unknown Venipuncture / Unknown 08/21/2024 10:57 AM EST 08/21/2024 11:05 AM EST Johndeysi Del Real Kenziejose [email or web address] LAB BLOOD ORDERABLES Final Result Performing Organization Address [facility] Co il Phone Number LABORATORY [facility] [address] [place] [address] * (ABNORMAL) IRON SCREEN, INCLUDING TIBC (08/21/2024 10:57 AM EST) Pathologist [facility] Iron 210(H) 45 - 176 ug/dL 08/21/2024 12:13 PM EST LAB[facility]ORY [facility] Iron Binding Capacity 210(L) 250 - 425 ug/dL 08/21/2024 12:13 PM EST LAB[facility] Transferrin Saturation Percent 100(H) 15 - 55 % 08/21/2024 12:13 PM EST LAB[facility]ORY [facility] Blood Venous blood specimen / Unknown Venipuncture / Unknown 08/21/2024 10:57 AM EST 08/21/2024 11:05 AM EST John Del Real Dianne DO LAB BLOOD ORDERABLES Final Result Performing Organization Address City/[facility]/ZIP Co de Phone Number LAB[facility]ATORY [facility] [address] [place] [address] * TYPE AND SCREEN (08/21/2024 10:57 AM EST) ABO A 08/21/2024 12:03 PM EST LABORATORY [facility] Rh Negative 08/21/2024 12:03 PM EST [facility] Red Blood Cell Antibody Screen Negative 08/21/2024 12:03 PM EST LABORATORY [facility] Specimen Expiration Date 08/24/2024 23:59 08/21/2024 12:03 PM EST [facility]ATORY [facility] Blood Venous blood specimen / Unknown Venipuncture / Unknown 08/21/2024 10:57 AM EST 08/21/2024 11:05 AM EST [facility] TEST ORDERABLES Final Result Performing Organization Address City/[facility] Co de Phone Number [facility] [address] [place] [address] * (ABNORMAL) PT INR (08/21/2024 10:57 AM EST) Prothrombin Time 16.7(H) 11.6 - 15.2 seconds 08/21/2024 11:26 AM EST [facility] INR 1.3(H) 0.8 - 1.2 08/21/2024 11:26 AM EST [facility] Blood Venous blood specimen / Unknown Venipuncture / Unknown 08/21/2024 10:57 AM EST 08/21/2024 11:05 AM EST Narrative [facility] - 08/21/2024 11:26 AM EST Warfarin Therapy INR: 2.0-3.0 conventional anticoagulation INR: 2.5-3.5 high intensity anticoagulation John Dean DO LAB BLOOD ORDERABLES Final Result [facility] [address] [place] [address] * PHOSPHORUS (08/21/2024 10:57 AM EST) Phosphorus 4.5 2.5 - 4.8 mg/dL 08/21/2024 11:34 AM EST LABORATORY C Blood Venous blood specimen / Unknown Venipuncture / Unknown 08/21/2024 10:57 AM EST 08/21/2024 11:05 AM EST us Hussein Dodd MD LAB BLOOD ORDERABLES Final Re sult Performing Organization Address [facility]/ZIP Co de Phone Number [facility] [address] [place] [address] * (ABNORMAL) MAGNESIUM (08/21/2024 10:57 AM EST) Magnesium 2.9(H) 1.5 - 2.6 mg/dL 08/21/2024 11:34 AM EST [facility] Blood Venous blood specimen / Unknown Venipuncture / Unknown 08/21/2024 10:57 AM EST 08/21/2024 11:05 AM EST us Hussein Dodd MD LAB BLOOD ORDERABLES Final Re sult Performing Organization Address [facility] de Phone Number [facility] [address] [place] [address] * (ABNORMAL) COMPREHENSIVE METABOLIC PANEL (08/21/2024 10:57 AM EST) BUN 65(H) 6 - 20 mg/dL 08/21/2024 11:34 AM EST [facility] CREATININE 2.6(H) 0.6 - 1.2 mg/dL 08/21/2024 11:34 AM EST [facility] EGFR 28(L) >=60 mL/min 08/21/2024 11:34 AM EST [facility] Comment:eGFR is calculated b ased on the CKD-EPI 2020 equation. SODIUM 127(L) 135 - 146 mmol/L 08/21/2024 11:34 AM EST [facility] POTASSIUM 5.9(H) 3.5 - 5.1 mmol/L 08/21/2024 11:34 AM EST [facility] CHLORIDE 99 98 - 107 mmol/L 08/21/2024 11:34 AM EST [facility] CO2 20(L) 22 - 32 mmol/L 08/21/2024 11:34 AM EST [facility] ANION GAP 8 7 - 15 mmol/L 08/21/2024 11:34 AM EST [facility] GLUCOSE 102 70 - 120 mg/dL 08/21/2024 11:34 AM EST [facility] Albumin 2.8(L) 3.8 - 5.0 g/dL 08/21/2024 11:34 AM EST [facility] AST 22 10 - 50 U/L 08/21/2024 11:34 AM EST [facility] Alkaline Phosphatase 67 35 - 130 U/L 08/21/2024 11:34 AM EST [facility] Bilirubin, Total 3.5(H) <=1.2 mg/dL 08/21/2024 11:34 AM EST [facility] CALCIUM 8.1(L) 8.4 - 10.2 mg/dL 08/21/2024 11:34 AM EST [facility] Protein 5.5(L) 6.0 - 8.3 g/dL 08/21/2024 11:34 AM EST [facility] ALT 14 10 - 50 U/L 08/21/2024 11:34 AM EST [facility] Blood Venous blood specimen / Unknown Venipuncture / Unknown 08/21/2024 10:57 AM EST 08/21/2024 11:05 AM EST Hussein Dodd MD LAB BLOOD ORDERABLES Final Re sult LABORATORY [facility] [address] [place] [address] * (ABNORMAL) CBC (08/21/2024 10:57 AM EST) WBC 8.97 4.00 - 10.80 K/uL 08/21/2024 11:12 AM EST [facility] RBC 2.30 4.50 - 5.25 M/uL 08/21/2024 11:12 AM EST [facility] HGB 6.4(L) 14.0 - 16.8 g/dL 08/21/2024 11:12 AM EST [facility] HCT 21.0(L) 40.0 - 48.4 % 08/21/2024 11:12 AM EST [facility] MCV 91.3 82.0 - 99.5 fL 08/21/2024 11:12 AM EST [facility] MCH 27.8 27.0 - 34.0 pg 08/21/2024 11:12 AM EST [facility] MCHC 30.5 32.0 - 36.0 g/dL 08/21/2024 11:12 AM EST [facility] RDW 17.3 11.5 - 15.5 % 08/21/2024 11:12 AM EST [facility] PLT 205 140 - 400 K/uL 08/21/2024 11:12 AM EST [facility] MPV 9.3 6.6 - 11.1 fL 08/21/2024 11:12 AM EST [facility] nRBCs 0 <=0 /100 WBCs 08/21/2024 11:12 AM EST [facility] Blood Venous blood specimen / Unknown Venipuncture / Unknown 08/21/2024 10:57 AM EST 08/21/2024 11:04 AM EST Hussein Dodd MD LAB BLOOD ORDERABLES Final Re sult [facility] [address] [place] [address] * EKG (08/21/2024 10:44 AM EST) 08/21/2024 10:4 4 AM EST Narrative Procedure Note Lenin Roberts MD - 08/21/2024 10:44 AM EST REASON FOR STUDY: Notify provider if obtaining EKG;Chest pain CONCLUSIONS: Normal sinus rhythm Low voltage QRS, consider pulmonary disease, pericardial effusion, ornormal variant Borderline ECG No previous ECGs available Ventricular Rate: 66 Atrial Rate: 66 RI Interval: 172 QRS Duration: 102 QT/QTc: 414/434 ms P-R-T [place]: 30 : 64 : 47 degrees us John Dean DO EKG Sandy l Result [facility] * MRSA SCREEN, PCR (08/21/2024 10:32 AM EST) MRSA PCR Result Negative Negative 12:48 PM EST [facility] Comment:No Methicillin resis tant Staphylococcus aureus detected by PCR (amplified probe). Upper Respiratory Swab of internal nose / Unknown Non-blood Collection / Unknown 08/21/2024 10:32 AM EST 08/21/2024 10:51 AM EST John Dean DO LAB MICRO - GENERAL ORDERABLES Final Result Performing Organization Address City/State/[facility] Co de Phone Number [facility] [address] [place] [address] documented in this encounter Visit Diagnoses Diagnosis Anemia- Primary Anemia, unspecified Alcoholic cirrhosis (HCC) Alcoholic cirrhosis of liver Chest pain Chest pain, unspecified Heart failure (HCC) Heart failure, unspecified Syncope, unspecified syncope type Ascites due to alcoholic cirrhosis (HCC) Atelectasis Pulmonary collapse Other ascites Iron deficiency anemia, unspecified [D50.9] Iron deficiency anemia, unspecified First degree hemorrhoids [K64.0] Unspecified hemorrhoids without mention of complication Portal hypertension (HCC) [K76.6] Portal hypertension Other diseases of stomach and duodenum [K31.89] Secondary esophageal varices with bleeding (HCC) [I85.11] Esophageal varices with bleeding in diseases classified elsewhere Varicose veins of other specified sites [I86.8] Diaphragmatic hernia without obstruction or gangrene [K44.9] Diaphragmatic hernia without mention of obstruction or gangrene Family history of ischemic heart disease and other diseases of the circulatory system [Z82.49] Other disorders of lung [J98.4] Tobacco use [Z72.0] Tobacco use disorder Awaiting organ transplant status [Z76.82] Awaiting organ transplant status Preoperative cardiovascular examination Pre-operative cardiovascular examination Other cirrhosis of liver (HCC) Alcoholic cirrhosis (HCC) Alcoholic cirrhosis of liver Ascites due to alcoholic cirrhosis (HCC) COPD, mild (HCC) Chronic airway obstruction, not elsewhere classified Kidney disease, chronic, stage IV (GFR 15-29 ml/min) (HCC) Chronic kidney disease, Stage IV (severe) Severe protein-energy malnutrition (HCC) Other severe protein-calorie malnutrition Other cirrhosis of liver (HCC) GRACIELA (acute kidney injury) (HCC) Acute kidney failure, unspecified GAVE (gastric antral vascular ectasia) Angiodysplasia of stomach and duodenum (without mention of hemorrhage) Duodenal varices Varices of other sites Secondary esophageal varices with bleeding (HCC) Esophageal varices with bleeding in diseases classified elsewhere Alcohol dependence, in remission (HCC) Acute hyperkalemia Hyperpotassemia Hyponatremia Hyposmolality and/or hyponatremia Iron deficiency anemia due to chronic blood loss Iron deficiency anemia secondary to blood loss (chronic) Portal hypertension (HCC) Portal hypertension Preoperative cardiovascular examination Pre-operative cardiovascular examination Pre-liver transplant, listed documented in this encounter Administered Medications Inactive Administered Medications - up to 3 most recent administrations Medication Order MAR Action Action Date Dose Rate Site albumin, human 25 % inj 12.5 g Intravenous, Please scan cartridge filler "square" 2D barcode to record Lot/ Expiration, ONCE, 1 dose, On La 08/22/24 at 1645 New Bag 08/22/2024 5:39 PM EST 12.5 g 50 mL/hr albumin, human 25 % inj 25 g Intravenous, Please scan cartridge filler "square" 2D barcode to record Lot/ Expiration, Q6H, 1 dose, First dose on 08/23/24 at 1330 New Bag 08/23/2024 2:38 PM EST 25 g 50 mL/hr albumin, human 25 % inj 25 g Intravenous, Please scan cartridge filler "square" 2D barcode to record Lot/ Expiration, ONCE, 1 dose, On 08/26/24 at 1730 New Bag 08/26/2024 7:01 PM EST 25 g 200 mL/hr albumin, human 25 % inj CONTINUOUS PRN INTRA PROCEDURE, Starting on 08/31/24 at 1343, Until 08/31/24 at 1558, Intra-Op New Bag 08/31/2024 1:43 PM EST 50 g 120 mL /hr ampicillin-sulbactam in NSS (Unasyn) ivpb 3 g 3 g, IV Piggyback, ONCE, 1 dose, On 08/31/24 at 1300, MIX BEFORE ADMINISTERING! New Bag 08/31/2024 12:50 PM EST 3 g 210 mL/hr Baclofen (Lioresal) tab 5 mg 5 mg, Oral, BID PRN Muscle spasms, Starting on 08/25/24 at 1706, Until 09/02/24 at 1553 Given 09/01/2024 9:58 AM EST 5 mg Given 08/30/2024 11:46 PM EST 5 mg Given 08/25/2024 5:29 PM EST 5 mg buffered lidocaine 1 % inj Intradermal, ONCE PRN INTRA PROCEDURE, Starting on 08/31/24 at 1255, Until 08/31/24 at 1255, Intra-Op Given 08/31/2024 12:55 PM EST 15 mL Other-Specify cefTRIAXone in dextrose (Rocephin) IVPB 1 g IV Piggyback, 1 g, Q24H, 5 doses, First dose on Mon08/22/24 at 1230, Last dose on Mon08/26/24 at 1230, Administer over 30 Minutes New Bag 08/26/2024 1:36 PM EST 1 g 100 mL/hr New Bag 08/25/2024 2:33 PM EST 1 g 100 mL/hr New Bag 08/24/2024 2:22 PM EST 1 g 100 mL/hr check patch placement order Q8H, First dose on Mon08/21/24 at 1430, Until Discontinued, Routine, Nicotine patch Cholestyramine Light (Prevalite) oral powder 4 g 4 g, Oral, TID(AM/NOON/HS), First dose on Mon08/21/24 at 1245, Until Discontinued Given 08/21/2024 9:19 PM EST 4 g Given 08/21/2024 1:15 PM EST 4 g Cholestyramine Light (Prevalite) oral powder 4 g 4 g, Oral, TID (INP ADJ TIME), First dose (after last modification) on Mon08/22/24 at 0900, Until Discontinued Given 09/02/2024 8:54 AM EST 4 g Given 09/01/2024 11:26 PM EST 4 g Given 09/01/2024 4:05 PM EST 4 g dextrose 50% inj 50 mL 50 mL, IV Push, ONCE, On Mon08/21/24 at 1245, For 1 dose Given 08/21/2024 1:14 PM EST 50 mL dextrose 50% inj 50 mL 50 mL, IV Push, ONCE, On Mon09/01/24 at 0945, For 1 dose Given 09/01/2024 9:27 AM EST 50 mL dicyclomine (Bentyl) tab 20 mg 20 mg, Oral, ONCE, On 08/31/24 at 0615, For 1 dose Given 08/31/2024 6:23 AM EST 20 mg fentaNYL (PF) inj ONCE PRN INTRA PROCEDURE, Starting on 08/31/24 at 1312, Until 08/31/24 at 1537, Intra-Op Given 08/31/2024 3:37 PM EST 50 mcg Given 08/31/2024 2:18 PM EST 50 mcg Given 08/31/2024 1:12 PM EST 50 mcg fluticasone Furoate (ARNUITY ellipta) 100 MCG/ACT inhaler 1 Puff 1 Puff, Inhalation, Daily(AM), First dose on Mon08/21/24 at 1245, Until Discontinued, Rinse mouth w/water and spit after each use WASTE INFO: Return waste medication to pharmacy in zip lock bag - SP container. Given 09/02/2024 9:02 AM EST 1 P uff Given 09/01/2024 8:05 AM EST 1 Puff Given 08/31/2024 8:46 AM EST 1 Puff folic acid tab 5 mg 5 mg, Oral, Daily(AM), First dose on Mon08/21/24 at 1245, Until Discontinued Given 09/02/2024 8:54 AM EST 5 mg Given 09/01/2024 7:59 AM EST 5 mg Given 08/31/2024 8:40 AM EST 5 mg Gabapentin (Neurontin) cap 300 mg 300 mg, Oral, TID(AM/NOON/HS), First dose on Mon08/21/24 at 1245, Until Discontinued Given 08/21/2024 9:19 PM EST 300 mg Given 08/21/2024 1:15 PM EST 300 mg Gabapentin (Neurontin) cap 300 mg 300 mg, Oral, TID (INP ADJ TIME), First dose (after last modification) on La 08/22/24 at 0800, Until Discontinued Given 09/02/2024 8:54 AM EST 300 mg Given 09/01/2024 7:55 PM EST 300 mg Given 09/01/2024 2:52 PM EST 300 mg hEParin inj 5,000 Units 5,000 Units, Subcutaneous, Q8H, First dose on Mon08/21/24 at 2200, Until Discontinued Given 09/01/2024 2:52 PM EST 5,000 Units Abdomen Right Upper Given 08/31/2024 5:03 PM EST 5,000 Units A bdomen Left Lower Given 08/30/2024 10:07 PM EST 5,000 Units Abdomen Right Lower house antacid (Mi-Acid II) oral susp 15 mL 15 mL, Oral, Q6H PRN Indigestion, Starting on Mon08/30/24 at 0308, Until Mon09/02/24 at 1553, SHAKE WELL Given 08/30/2024 5:36 AM EST 15 mL insulin aspart (NovoLOG) inj 5 Units 5 Units, Intravenous, ONCE, 1 dose, On Mon08/21/24 at 1245 Given 08/21/2024 1:14 PM EST 5 Units insulin aspart (NovoLOG) inj 5 Units 5 Units, Intravenous, ONCE, 1 dose, On 09/01/24 at 0945 Given 09/01/2024 9:24 AM EST 5 Units Iopamidol (Isovue 300) inj 300 mL 300 mL, Intravenous, ONCE, On 08/31/24 at 1700, For 1 dose Given 08/31/2024 5:00 PM EST 260 mL Iopamidol (Isovue 370) inj 100 mL 100 mL, Intravenous, ONCE, On Mon08/30/24 at 1000, For 1 dose, Radiology Medication Routing (Non-IR) Given 08/30/2024 10:00 AM EST 80 mL Lactulose (Constulose) oral soln 20 g 20 g, Oral, BID (.AM/PM), First dose on Mon08/21/24 at 2100, Until Discontinued, Please titrate to 3 BMs per day Given 08/30/2024 9:43 AM EST 20 g Given 08/27/2024 7:55 PM EST 20 g Given 08/27/2024 8:57 AM EST 20 g midazolam (Versed) 2 MG/2ML inj ONCE PRN INTRA PROCEDURE, Starting on 08/31/24 at 1312, Until 08/31/24 at 1537, Intra-Op Given 08/31/2024 3:37 PM EST 1 mg Given 08/31/2024 2:18 PM EST 1 mg Given 08/31/2024 1:12 PM EST 1 mg morphine sulfate inj 2 mg 2 mg, IV Push, ONCE, On 09/01/24 at 2315, For 1 dose Given 09/01/2024 11:20 PM EST 2 mg Nicotine (Nicoderm CQ) 14 MG/24HR patch 1 Patch 1 Patch, Transdermal, Daily(AM), First dose (after last modification) on Mon08/21/24 at 1430, Until Discontinued, Do NOT cut the patch. Remove any Nicotine patches the patient may currently be wearing prior to applying the new patch. Place on clean hairless area. Remove for patient showers. WASTE INFO: Return packaging and waste medication in zip lock bag to pharmacy - [facility] container. Patch Applied 09/02/2024 8:58 AM EST 1 Patch Arm Right Upper Patch Applied 09/01/2024 9:00 AM EST 1 Patch Chest Right Patch Applied 08/31/2024 8:45 AM EST 1 Patch Chest Right Octreotide Acetate (Sandostatin) 50 mcg in NSS 50 mL ivpb 50 mcg, IV Piggyback, ONCE, 1 dose, On Mon08/22/24 at 1230, Administer over 30 Minutes Start Infusion 08/22/2024 4:36 PM EST 50 mcg 106 mL/hr Octreotide Acetate (SandoSTATIN) 500 mcg in NSS 500 mL INFUSION Intravenous, 50 mcg/hr (50 mL/hr), Please select this medication from the infusion pump library, CONTINUOUS, Starting on Mon08/22/24 at 1230, Until Mon08/25/24 at 1118 New Bag 08/25/2024 11:00 AM EST 50 mcg/hr 50 mL/hr Restarted 08/25/2024 10:59 AM EST 50 mcg/hr 50 mL/hr Rate Verify 08/25/2024 10:34 AM EST 50 mcg/hr 50 mL/hr oxyCODONE (Oxy IR) tab 5 mg 5 mg, Oral, ONCE, On Mon09/01/24 at 2000, For 1 dose Given 09/01/2024 7:55 PM EST 5 mg Pantoprazole (Protonix) inj 40 mg 40 mg, IV Push, Q12H, First dose on Mon08/21/24 at 1145, Until Discontinued, IV push instructions: Flush I.V. Line before and after administration. In-line filter not required. 2-minute infusion: The volume of reconstituted solution (4mg/ml) to be injected may be administered intravenously over at least 2 minutes. ( Dilute each vial with 10 ml of 0.9% saline PF) Given 08/25/2024 8:39 AM EST 40 mg Given 08/24/2024 8:40 PM EST 40 mg Given 08/24/2024 8:58 AM EST 40 mg polyethylene glycol 3350 (Miralax) oral powder 119 g 119 g, Oral, ONCE, On 08/24/24 at 1830, For 1 dose, Mix entire contents of 238 gram Miralax bottle with 64 oz of clear or light colored Gatorade or water. Stir/shake until entire contents are completely dissolved. Have the patient drink 8 oz (240 mL) of solution every 15 minutes until the bottle, or 32 oz is consumed. Discard the remainder of solution. The solution should be consumed slowly to prevent nausea and stomach upset, and patient can drink directly or through a straw. Given 08/24/2024 6:34 PM EST 119 g Polyethylene Glycol 3350 (Miralax) oral powder 238 g 238 g, Oral, ONCE, On La 08/22/24 at 1415, For 1 dose, Mix entire contents of 238 grams of Miralax bottle with 64 oz of clear or light colored Gatorade or water. Stir/shake until entire contents are completely dissolved. Have the patient drink 8 oz (240 mL) of solution every 15 minutes until solution is gone. Drink the solution slowly to prevent nausea and stomach upset. You may drink it directly or use a straw. Given 08/22/2024 5:50 PM EST 238 g Polyethylene Glycol 3350 (Miralax) oral powder 238 g 238 g, Oral, ONCE, On Mon08/27/24 at 1800, For 1 dose, Mix entire contents of 238 grams of Miralax bottle with 64 oz of clear or light colored Gatorade or water. Stir/shake until entire contents are completely dissolved. Have the patient drink 8 oz (240 mL) of solution every 15 minutes until solution is gone. Drink the solution slowly to prevent nausea and stomach upset. You may drink it directly or use a straw. Given 08/27/2024 5:43 PM EST 238 g rifAXIMin (Xifaxan) tab 550 mg 550 mg, Oral, BID (.AM/PM), First dose on Mon08/21/24 at 2100, Until Discontinued Given 09/02/2024 8:54 AM EST 550 mg Given 09/01/2024 7:55 PM EST 550 mg Given 09/01/2024 8:00 AM EST 550 mg sodium chloride 0.9 % flush/inj 3 mL 3 mL, IV Push, PRN Other, Line Patency, Starting on Mon08/21/24 at 1014, Until Mon09/02/24 at 1553, Do not flush if lock, PICC, or central line not in place, IV infusing or unable to flush Sodium Zirconium Cyclosilicate (Lokelma) oral powder PACK 10 g 10 g, Oral, TID(AM/NOON/HS), First dose on Mon08/21/24 at 1245, Last dose on Mon08/23/24 at 0600, For 6 doses, Empty entire contents of the packet(s) into a glass with 45 mL of water. Stir well and drink immediately; if powder remains in the glass, add water, stir and drink immediately; repeat until no powder remains. Administer other oral medications at least 2 hours before or 2 hours after dose. Hold dose and notify provider if K is less than 3.5 mmol/L Given 08/23/2024 5:24 AM EST 10 g Given 08/22/2024 9:44 PM EST 10 g Given 08/22/2024 1:15 PM EST 10 g Sodium Zirconium Cyclosilicate (Lokelma) oral powder PACK 10 g 10 g, Oral, ONCE, On Mon08/26/24 at 0900, For 1 dose, Empty entire contents of the packet(s) into a glass with 45 mL of water. Stir well and drink immediately; if powder remains in the glass, add water, stir and drink immediately; repeat until no powder remains. Administer other oral medications at least 2 hours before or 2 hours after dose. Hold dose and notify provider if K is less than 3.5 mmol/L Given 08/26/2024 1:37 PM EST 10 g Sodium Zirconium Cyclosilicate (Lokelma) oral powder PACK 10 g 10 g, Oral, ONCE, On Mon08/27/24 at 1100, For 1 dose, Empty entire contents of the packet(s) into a glass with 45 mL of water. Stir well and drink immediately; if powder remains in the glass, add water, stir and drink immediately; repeat until no powder remains. Administer other oral medications at least 2 hours before or 2 hours after dose. Hold dose and notify provider if K is less than 3.5 mmol/L Given 08/27/2024 10:43 AM EST 10 g Sodium Zirconium Cyclosilicate (Lokelma) oral powder PACK 10 g 10 g, Oral, ONCE, On 08/31/24 at 1515, For 1 dose, Empty entire contents of the packet(s) into a glass with 45 mL of water. Stir well and drink immediately; if powder remains in the glass, add water, stir and drink immediately; repeat until no powder remains. Administer other oral medications at least 2 hours before or 2 hours after dose. Hold dose and notify provider if K is less than 3.5 mmol/L Given 08/31/2024 5:42 PM EST 10 g Sodium Zirconium Cyclosilicate (Lokelma) oral powder PACK 10 g 10 g, Oral, TID(AM/NOON/HS), First dose (after last modification) on 09/01/24 at 1130, Last dose on Mon09/03/24 at 0600, For 6 doses, Empty entire contents of the packet(s) into a glass with 45 mL of water. Stir well and drink immediately; if powder remains in the glass, add water, stir and drink immediately; repeat until no powder remains. Administer other oral medications at least 2 hours before or 2 hours after dose. Hold dose and notify provider if K is less than 3.5 mmol/L Given 09/02/2024 11:32 AM EST 10 g Given 09/02/2024 5:36 AM EST 10 g Given 09/01/2024 10:32 PM EST 10 g documented in this encounter Active and Recently Administered Medications Times are shown in EST. Scheduled Medication Order 08/31/2024 09/01/2024 09/02/2024 ampicillin-sulbactam in NSS (Unasyn) ivpb 3 g (COMPLETED) 3 g, IV Piggyback, ONCE, 1 dose, On 08/31/24 at 1300, MIX BEFORE ADMINISTERING! 1250 (New Bag - Provider: Marc Duong RN) check patch placement order Q8H, First dose on Mon08/21/24 at 1430, Until Discontinued, Routine, Nicotine patch 0600 (Patch Placement Verified - Provider: Alexis Deleon RN)1400 (OR/Procedure - Provider: Roya Roman RN - Comment: patient was in a procedure)2200 (Patch Placement Verified - Provider: Alexis Deleon RN) 0600 (Patch Placement Verified - Provider: Alexis Deleon RN)1400 (Patch Placement Verified - Provider: Roya Roman RN)2200 (Patch Placement Verified - Provider: Alexis Deleon RN) 0600 (Patch Placement Verified - Provider: Alexis Deleon RN) Cholestyramine Light (Prevalite) oral powder 4 g 4 g, Oral, TID (INP ADJ TIME), First dose (after last modification) on La 08/22/24 at 0900, Until Discontinued 0841 (Given - Provider: Roya Roman RN)1742 (Given - Provider: Roya Roman RN)2359 (Given - Provider: Alexis Deleon RN) 0759 (Given - Provider: Roya Roman RN)1605 (Given - Provider: Roya Roman RN)2326 (Given - Provider: Alexis Deleon RN) 0854 (Given - Provider: Konrad Beck RN) dextrose 50% inj 50 mL (COMPLETED) 50 mL, IV Push, ONCE, On 09/01/24 at 0945, For 1 dose 0927 (Given - Provider: Ryoa Roman RN) dicyclomine (Bentyl) tab 20 mg (COMPLETED) 20 mg, Oral, ONCE, On 08/31/24 at 0615, For 1 dose 0623 (Given - Provider: Alexis Deleon RN) fluticasone Furoate (ARNUITY ellipta) 100 MCG/ACT inhaler 1 Puff 1 Puff, Inhalation, Daily(AM), First dose on Mon08/21/24 at 1245, Until Discontinued, Rinse mouth w/water and spit after each use WASTE INFO: Return waste medication to pharmacy in zip lock bag - SP container. 0846 (Given - Provider: Roya Roman RN) 0805 (Given - Provider: Roya Roman RN) 0902 (Given - Provider: Konrad Beck RN) folic acid tab 5 mg 5 mg, Oral, Daily(AM), First dose on Mon08/21/24 at 1245, Until Discontinued 0840 (Given - Provider: Roya Roman RN) 0759 (Given - Provider: Roya Roman RN) 0854 (Given - Provider: Konrad Beck RN) Gabapentin (Neurontin) cap 300 mg 300 mg, Oral, TID (INP ADJ TIME), First dose (after last modification) on Mon08/22/24 at 0800, Until Discontinued 0841 (Given - Provider: Roya Roman RN)170 (Given - Provider: Roya Roman RN - Comment: at a procedure)1954 (Given - Provider: Alexis Deleon RN) 0800 (Given - Provider: Roya Roman RN)1452 (Given - Provider: Roya Roman RN)195 (Given - Provider: Alexis Deleon RN) 0854 (Given - Provider: Konrad Beck RN) hEParin inj 5,000 Units 5,000 Units, Subcutaneous, Q8H, First dose on Mon08/21/24 at 2200, Until Discontinued 0539 (Not Given - Provider: Alexis Deleon RN - Reason: Refused-Notify Provider - Comment: Service made aware)170 (Given - Provider: Roya Roman RN - Comment: at procedure)2200 (Not Given - Provider: Alexis Deleon RN - Reason: Refused-Notify Provider - Comment: service made aware) 0541 (Not Given - Provider: Alexis Deleon RN - Reason: Refused-Notify Provider - Comment: service made aware)1452 (Given - Provider: Roya Roman RN)2229 (Not Given - Provider: Alexis Deleon RN - Reason: Refused-Notify Provider - Comment: service made awarew) 0536 (Not Given - Provider: Alexis Deleon RN - Reason: Refused-Notify Provider - Comment: service made aware) insulin aspart (NovoLOG) inj 5 Units (COMPLETED) 5 Units, Intravenous, ONCE, 1 dose, On 09/01/24 at 0945 0924 (Given - Provider: Roya Roman RN) Iopamidol (Isovue 300) inj 300 mL (COMPLETED) 300 mL, Intravenous, ONCE, On 08/31/24 at 1700, For 1 dose 1700 (Given - Provider: Micky Trevino, RT (R)) Lactulose (Constulose) oral soln 20 g 20 g, Oral, BID (.AM/PM), First dose on Mon08/21/24 at 2100, Until Discontinued, Please titrate to 3 BMs per day 0845 (Not Given - Provider: Roya Roman RN - Reason: Refused-Notify Provider)1954 (Not Given - Provider: Alexis Deleon RN - Reason: Refused-Notify Provider - Comment: Laura made aware) 0800 (Not Given - Provider: Roya Roman RN - Reason: Refused-Notify Provider)1954 (Not Given - Provider: Alexis Deleon RN - Reason: Refused-Notify Provider - Comment: manuel made aware) 08 (Not Given - Provider: Konrad Beck RN - Reason: Refused-Notify Provider) morphine sulfate inj 2 mg (COMPLETED) 2 mg, IV Push, ONCE, On Mon09/01/24 at 2315, For 1 dose 2320 (Given - Provider: Alexis Deleon RN) Nicotine (Nicoderm CQ) 14 MG/24HR patch 1 Patch 1 Patch, Transdermal, Daily(AM), First dose (after last modification) on Mon08/21/24 at 1430, Until Discontinued, Do NOT cut the patch. Remove any Nicotine patches the patient may currently be wearing prior to applying the new patch. Place on clean hairless area. Remove for patient showers. WASTE INFO: Return packaging and waste medication in zip lock bag to pharmacy - [facility] container. 0841 (Patch Removed - Provider: Roya Roman RN)0845 (Patch Applied - Provider: Roya Roman RN) 0759 (Patch Removed - Provider: Roya Roman RN)0900 (Patch Applied - Provider: Roya Roman RN) 0854 (Patch Removed - Provider: Konrad Beck RN)0858 (Patch Applied - Provider: Konrad Beck RN)1153 (Due: Patch Removed - Provider: Discharge, Physician - Comment: Time automatically adjusted from order being discontinued) oxyCODONE (Oxy IR) tab 5 mg (COMPLETED) 5 mg, Oral, ONCE, On Mon09/01/24 at 2000, For 1 dose 1954 (Given - Provider: Alexis Deleon RN) rifAXIMin (Xifaxan) tab 550 mg 550 mg, Oral, BID (.AM/PM), First dose on Mon08/21/24 at 2100, Until Discontinued 0841 (Given - Provider: Roya Roman RN)1954 (Given - Provider: Alexis Deleon RN) 0800 (Given - Provider: Roya Roman RN)195 (Given - Provider: Alexis Deleon RN) 0854 (Given - Provider: Konrad Beck RN) Sodium Zirconium Cyclosilicate (Lokelma) oral powder PACK 10 g (COMPLETED) 10 g, Oral, ONCE, On 08/31/24 at 1515, For 1 dose, Empty entire contents of the packet(s) into a glass with 45 mL of water. Stir well and drink immediately; if powder remains in the glass, add water, stir and drink immediately; repeat until no powder remains. Administer other oral medications at least 2 hours before or 2 hours after dose. Hold dose and notify provider if K is less than 3.5 mmol/L 1742 (Given - Provider: Roya Roman RN) Sodium Zirconium Cyclosilicate (Lokelma) oral powder PACK 10 g 10 g, Oral, TID(AM/NOON/HS), First dose (after last modification) on Mon09/01/24 at 1130, Last dose on Mon09/03/24 at 0600, For 6 doses, Empty entire contents of the packet(s) into a glass with 45 mL of water. Stir well and drink immediately; if powder remains in the glass, add water, stir and drink immediately; repeat until no powder remains. Administer other oral medications at least 2 hours before or 2 hours after dose. Hold dose and notify provider if K is less than 3.5 mmol/L 1058 (Given - Provider: Roya Roman RN)2232 (Given - Provider: Alexis Deleon RN) 0536 (Given - Provider: Alexis Deleon RN)1132 (Given - Provider: Moreno Riley RN) PRN Medication Order 08/31/2024 09/01/2024 09/02/2024 albumin, human 25 % inj (COMPLETED) CONTINUOUS PRN INTRA PROCEDURE, Starting on 08/31/24 at 1343, Until 08/31/24 at 1558, Intra-Op 1343 (New Bag - Provider: Marc Duong, DARRIAN)1558 (Finish Infusion - Provider: Marc Duong RN) Baclofen (Lioresal) tab 5 mg 5 mg, Oral, BID PRN Muscle spasms, Starting on 08/25/24 at 1706, Until 09/02/24 at 1553 0958 (Given - Provider: Roya Roman RN) buffered lidocaine 1 % inj (COMPLETED) Intradermal, ONCE PRN INTRA PROCEDURE, Starting on 08/31/24 at 1255, Until 08/31/24 at 1255, Intra-Op 1255 (Given - Provider: Sang Vincent, DO - Comment: split between abdominal access sites) fentaNYL (PF) inj (COMPLETED) ONCE PRN INTRA PROCEDURE, Starting on 08/31/24 at 1312, Until 08/31/24 at 1537, Intra-Op 1312 (Given - Provider: Marc Duong RN)1418 (Given - Provider: Marc Duong RN)1537 (Given - Provider: Marc Duong RN) house antacid (Mi-Acid II) oral susp 15 mL 15 mL, Oral, Q6H PRN Indigestion, Starting on 08/30/24 at 0308, Until 09/02/24 at 1553, SHAKE WELL midazolam (Versed) 2 MG/2ML inj (COMPLETED) ONCE PRN INTRA PROCEDURE, Starting on 08/31/24 at 1312, Until 08/31/24 at 1537, Intra-Op 1312 (Given - Provider: Marc Duong RN)1418 (Given - Provider: Marc Duong RN)1537 (Given - Provider: Marc Duong RN) sodium chloride 0.9 % flush/inj 3 mL 3 mL, IV Push, PRN Other, Line Patency, Starting on Mon08/21/24 at 1014, Until 09/02/24 at 1553, Do not flush if lock, PICC, or central line not in place, IV infusing or unable to flush documented in this encounter Additional Health Concerns Infection Onset Date Last Indicated Resolved Time Respiratory Rule-Out 08/21/2024 08/21/2024 025 2:24 PM EST COVID-19 Rule-Out 08/21/2024 08/21/2024 08/21/2024 2:24 PM EST documented as of this encounter Advance Directives [...] Relationship Healthcare Agent Relationshi p Communication Manuela Collahan Sibling First Alternate Health Care Agent (per Health Care Power of Car Park Attendant document) Care Teams Principal Associate Relationship Specialty Start Date End Date JolynnOctober SHAQ Carter [address] [place] [address] PCP - General Physician Senior Linux Systems Administrator 04/10/24 documented as of this encounter
--- OUTSIDE RECORDS SUMMARY | 2024-09-04 08:54 | External Medical Summary ---
Author Name Unknown Address Unknown Organization [id number]:LABORATORY [facility] [place] - [address] [facility] [address] Laboratory Report Ordering Provider Test Date Status MARISELA AYALA 09/01/2024 15:41:00 Final Observation Date Value Abnormality Reference (Units ) Status Potassium, Whole Blood 09/01/2024 15:41:00 5.5 Above high normal 3.5-5.1 (mmol/L) Final Performing Location LABORATORY [facility] [place] - [address] [facility] [address]
--- OUTSIDE RECORDS SUMMARY | 2024-09-04 08:54 | External Medical Summary ---
Author Name Unknown Address Unknown Organization [id number]:[place] [place] [address] [facility] [address] Laboratory Report Ordering Provider Test Date Status CHEKO FRANCOIS 09/01/2024 06:22:00 Final Observation Date Value Abnormality Reference (Units ) Status WBC, Total 09/01/2024 06:22:00 7.73 4.00-10.80 (K/uL) Final RBC 09/01/2024 06:22:00 2.30 4.50-5.25 (M/uL) Final Hemoglobin 09/01/2024 06:22:00 7.1 Below low normal 14.0-16.8 (g/dL) Final HCT 09/01/2024 06:22:00 22.6 Below low normal 40.0-48.4 (%) Final MCV 09/01/2024 06:22:00 98.3 82.0-99.5 (fL) Final MCH 09/01/2024 06:22:00 30.9 27.0-34.0 (pg) Final MCHC 09/01/2024 06:22:00 31.4 32.0-36.0 (g/dL) Final RDW 09/01/2024 06:22:00 19.4 11.5-15.5 (%) Final Platelets 09/01/2024 06:22:00 146 140-400 (K/uL) Final MPV 09/01/2024 06:22:00 9.2 6.6-11.1 (fL) Final Nucleated erythrocytes/100 leukocytes [Ratio] in Blood by Automated count 09/01/2024 06:22:00 0 <=0 (/100 WBCs) Final Performing Location [place] [facility] [place] [address] [facility] [address]
--- OUTSIDE RECORDS SUMMARY | 2024-09-04 08:54 | External Medical Summary ---
Author Name Unknown Address Unknown Organization [id number]:[facility] - [address] [place] [address] Laboratory Report Ordering Provider Test Date Status CHEKO FRANCOIS 09/02/2024 06:35:00 Final Observation Date Value Abnormality Reference (Units ) Status Phosphate 09/02/2024 06:35:00 4.3 2.5-4.8 (m g/dL) Final Performing Location [facility] - [address] [place] [address]
--- OUTSIDE RECORDS SUMMARY | 2024-09-04 08:54 | External Medical Summary ---
Author Name Unknown Address Unknown Organization [id number]:LABORATORY [facility] [place] - [address] [facility] [place] [address] Laboratory Report Ordering Provider Test Date Status AMOS FELDER 08/31/2024 18:23:00 Final Observation Date Value Abnormality Reference (Units ) Status Potassium, Whole Blood 08/31/2024 18:23:00 5.3 Above high normal 3.5-5.1 (mmol/L) Final Performing Location LABORATORY [facility] [place] - [address] [facility] [address]
--- OUTSIDE RECORDS SUMMARY | 2024-09-04 08:54 | External Medical Summary ---
Author Name Unknown Address Unknown Organization [id number]:LABORATORY [facility] [place] [facility] - [address] [place] [address] Laboratory Report Ordering Provider Test Date Status PRISCILACHEKO 08/30/2024 11:10:00 Final Observation Date Value Abnormality Reference (Units ) Status ABO 08/30/2024 11:10:00 A Final RH 08/30/2024 11:10:00 Negative Final RED BLOOD CELL ANTIBODY SCREEN 08/30/2024 11:10:00 Negative Final SPECIMEN EXPIRATION DATE 08/30/2024 11:10:00 09/02/2024 23:59 Final Performing Location LABORATORY [facility] [place] [facility] - [address] [place] [address]
--- OUTSIDE RECORDS SUMMARY | 2024-09-04 08:54 | External Medical Summary ---
Author Name Unknown Address Unknown Organization K01:[facility] [place] [facility] [address] [facility] [address] Laboratory Report Ordering Provider Test Date Status CHEKO FRANCOIS 09/02/2024 06:35:00 Final Observation Date Value Abnormality Reference (Units ) Status WBC, Total 09/02/2024 06:35:00 9.50 4.00-10.80 (K/uL) Final RBC 09/02/2024 06:35:00 2.34 4.50-5.25 (M/uL) Final Hemoglobin 09/02/2024 06:35:00 6.9 Below low normal 14.0-16.8 (g/dL) Final HCT 09/02/2024 06:35:00 23.2 Below low normal 40.0-48.4 (%) Final MCV 09/02/2024 06:35:00 99.1 82.0-99.5 (fL) Final MCH 09/02/2024 06:35:00 29.5 27.0-34.0 (pg) Final MCHC 09/02/2024 06:35:00 29.7 32.0-36.0 (g/dL) Final RDW 09/02/2024 06:35:00 19.3 11.5-15.5 (%) Final Platelets 09/02/2024 06:35:00 160 140-400 (K/uL) Final MPV 09/02/2024 06:35:00 9.3 6.6-11.1 (fL) Final Nucleated erythrocytes/100 leukocytes [Ratio] in Blood by Automated count 09/02/2024 06:35:00 0 <=0 (/100 WBCs) Final Performing Location [facility]ORY [facility] [place] [address] [facility] [address]
--- OUTSIDE RECORDS SUMMARY | 2024-09-04 08:54 | External Medical Summary ---
Author Name Unknown Address Unknown Organization K01:LABORATORY [facility] - [address] [place] [address] Laboratory Report Ordering Provider Test Date Status CHEKO FRANCOIS 08/30/2024 06:47:00 Final Observation Date Value Abnormality Reference (Units ) Status Magnesium 08/30/2024 06:47:00 2.9 Above high normal 1. 5-2.6 (mg/dL) Final Performing Location [facility] - [address] [place] [address]
--- OUTSIDE RECORDS SUMMARY | 2024-09-04 08:54 | External Medical Summary ---
Author Name Unknown Address Unknown Organization : Laboratory Report Ordering Provider Test Date Status LUCYMARISELA 09/01/2024 09:27:02 Final Observation Date Value Abnormality Reference (Units ) Status Glucose Point of Care 09/01/2024 09:27:02 155 Above high normal 70-120 (mg/dL) Final Performing Location
--- OUTSIDE RECORDS SUMMARY | 2024-09-04 08:54 | External Medical Summary ---
Author Name Unknown Address Unknown Organization K01:LAB[facility]ATORY [facility] - [address] [place] [address] Laboratory Report Ordering Provider Test Date Status CHEKO FRANCOIS 08/30/2024 06:47:00 Final Observation Date Value Abnormality Reference (Units ) Status Phosphate 08/30/2024 06:47:00 3.3 2.5-4.8 (m g/dL) Final Performing Location [facility] - [address] [place] [address]
--- OUTSIDE RECORDS SUMMARY | 2024-09-04 08:54 | External Medical Summary ---
Author Name Unknown Address Unknown Organization : Laboratory Report Ordering Provider Test Date Status STANNANDORMMARISELA Barker 09/01/2024 12:08:59 Final Observation Date Value Abnormality Reference (Units ) Status Glucose Point of Care 09/01/2024 12:08:59 130 Above high normal 70-120 (mg/dL) Final Performing Location
--- OUTSIDE RECORDS SUMMARY | 2024-09-04 08:54 | External Medical Summary ---
Author Name Unknown Address Unknown Organization K01:[facility] [facility] [place] [facility] [facility] [place] [address] [place] [address] Laboratory Report Ordering Provider Test Date Status MARISELA AYALA 08/31/2024 07:48:00 Final Observation Date Value Abnormality Reference (Units ) Status ABO 08/31/2024 07:48:00 A Final RH 08/31/2024 07:48:00 Negative Final RED BLOOD CELL ANTIBODY SCREEN 08/31/2024 07:48:00 Negative Final SPECIMEN EXPIRATION DATE 08/31/2024 07:48:00 2024 23:59 Final Performing Location [facility] [facility] [place] [facility] [facility] [place] [address] [place] [address]
--- OUTSIDE RECORDS SUMMARY | 2024-09-04 08:54 | External Medical Summary ---
Author Name Unknown Address Unknown Organization K01:[facility]ATORY [facility] - [address] [place] [address] Laboratory Report Ordering Provider Test Date Status CHEKO FRANCOIS 09/01/2024 06:22:00 Final Observation Date Value Abnormality Reference (Units ) Status Phosphate 09/01/2024 06:22:00 4.0 2.5-4.8 (m g/dL) Final Performing Location [facility] - [address] [place] [address]
--- OUTSIDE RECORDS SUMMARY | 2024-09-04 08:54 | External Medical Summary ---
Author Name Unknown Address Unknown Organization K01:[place] [facility] [place] [address] [facility] [address] Laboratory Report Ordering Provider Test Date Status CHEKO FRANCOIS 08/31/2024 07:48:00 Final Observation Date Value Abnormality Reference (Units ) Status WBC, Total 08/31/2024 07:48:00 10.16 4.00-10.80 (K/uL) Final RBC 08/31/2024 07:48:00 2.47 4.50-5.25 (M/uL) Final Hemoglobin 08/31/2024 07:48:00 7.2 Below low normal 14.0-16.8 (g/dL) Final HCT 08/31/2024 07:48:00 24.2 Below low normal 40.0-48.4 (%) Final MCV 08/31/2024 07:48:00 98.0 82.0-99.5 (fL) Final MCH 08/31/2024 07:48:00 29.1 27.0-34.0 (pg) Final MCHC 08/31/2024 07:48:00 29.8 32.0-36.0 (g/dL) Final RDW 08/31/2024 07:48:00 19.3 11.5-15.5 (%) Final Platelets 08/31/2024 07:48:00 166 140-400 (K/uL) Final MPV 08/31/2024 07:48:00 9.6 6.6-11.1 (fL) Final Nucleated erythrocytes/100 leukocytes [Ratio] in Blood by Automated count 08/31/2024 07:48:00 0 <=0 (/100 WBCs) Final Performing Location [place] [facility] [place] [address] [facility] [address]
--- OUTSIDE RECORDS SUMMARY | 2024-09-04 08:54 | External Medical Summary ---
Author Name Unknown Address Unknown Organization K01:LABORATORY [facility] - [address] [place] [address] Laboratory Report Ordering Provider Test Date Status CHEKO FRANCOIS 09/02/2024 06:35:00 Final Observation Date Value Abnormality Reference (Units ) Status Magnesium 09/02/2024 06:35:00 3.0 Above high normal 1. 5-2.6 (mg/dL) Final Performing Location [facility] - [address] [place] [address]
--- OUTSIDE RECORDS SUMMARY | 2024-09-04 08:54 | External Medical Summary ---
Author Name Unknown Address Unknown Organization K01:LABORATORY [facility] - [address] [place] [address] Laboratory Report Ordering Provider Test Date Status CHEKO FRANCOIS 09/01/2024 06:22:00 Final Observation Date Value Abnormality Reference (Units ) Status Magnesium 09/01/2024 06:22:00 3.0 Above high normal 1. 5-2.6 (mg/dL) Final Performing Location [facility] - [address] [place] [address]
--- OUTSIDE RECORDS SUMMARY | 2024-09-04 08:54 | External Medical Summary ---
Author Name Unknown Address Unknown Organization K01:[place] [place] [address] [place] [address] Laboratory Report Ordering Provider Test Date Status CHEKO FRANCOIS 09/01/2024 06:22:00 Final Warfarin Therapy
INR: 2 .0-3.0 conventional anticoagulation
INR: 2.5- 3.5 high intensity anticoagulation Observation Date Value Abnormality Reference (Units ) Status PT 09/01/2024 06:22:00 17.3 Above high normal 11 .6-15.2 (seconds) Final INR 09/01/2024 06:22:00 1.4 Above high normal 0. 8-1.2 Final Performing Location [facility] [place] [address] [place] [address]
--- OUTSIDE RECORDS SUMMARY | 2024-09-04 08:54 | External Medical Summary ---
Author Name Unknown Address Unknown Organization K01:LABORATORY [facility] [place] - [address] [facility] [address] Laboratory Report Ordering Provider Test Date Status MARISELA AYALA 08/31/2024 07:48:00 Final Observation Date Value Abnormality Reference (Units ) Status Potassium, Whole Blood 08/31/2024 07:48:00 5.8 Above high normal 3.5-5.1 (mmol/L) Final Performing Location LABORATORY [facility] [place] - [address] [facility] [address]
--- OUTSIDE RECORDS SUMMARY | 2024-09-04 08:54 | External Medical Summary | Summary of Care ---
Author Name Unknown Organization [facility] Address [address] [place] [address] Phone [phone] Care Team Providers Care Immigration Associate Name Role Phone Rina Neil PA-C Primary Care Provider [phone] Reason for Visit * Reason Onset Date Comments Order Request 09/02/2024 Encounter Details Date Type Department Care Team (Late st Contact Info) Description 09/02/2024 Telephone [facility] [address] [place] [address] Frankie Green MD [address] [place] [address] Order Request Allergies Active Allergy Reactions Criticality Noted Date Comments Penicillins Unknown 08/09/2023 documented as of this encounter (statuses as of 09/02/2024) Medications Pantoprazole Sodium 40 MG Oral Tablet [...] as of this encounter (statuses as of 09/02/2024) Active Problems Problem Noted Date Diagnosed Date [...] as of this encounter (statuses as of 09/02/2024) Resolved Problems Problem Noted Date Diagnosed Date Resolved Date Upper GI bleed 05/09/2024 05/12/2024 documented as of this encounter (statuses as of 09/02/2024) Immunizations Name Administration Dates Next Due Seasonal [...] of Assessment Author No 05/09/2024 7:00 PM EDJay Gutierrez RN documented as of this encounter Mental [...] Description 09/11/2024 10:20 AM EST Office Visit [facility] [address] [place] [address] Rina Neil PA-C [address] [place] [address] 09/26/2024 8:00 AM EST Hospital Encounter [facility] Waiting Unit, [address] [place] [phone] Rebeca Epps MD [address] [place] [address] 09/26/2024 8:00 AM EST - 09/26/2024 9:00 AM EST Surgery [facility] [place] Waiting Unit, [address] [place] [phone] Rebeca Epps MD [address] [place] [address] CORONARY ANGIOGRAPHY W/LEFT HEART CATH 09/26/2024 8:00 AM EST Office Visit Cardiology [facility] [place] [address] [place] [address] [place], Cardiac [facility] [place] [address], [place] [id number] 01/13/2025 1:45 PM EDT Imaging Radiology [facility] [address] [place] [phone] Scheduled Orders Name Type Priority Associated Diagnoses Orde r Schedule COLONOSCOPY, DIAGNOSTIC (RECTUM) Procedures Routine Alcoholic cirrhosis of liver with ascites (HCC) Ordered: 09/02/2024 Scheduled Procedures Name Priority Associated Diagnoses Date/Ti me CORONARY ANGIOGRAPHY W/LEFT HEART CATH Pre-liver transplant, listed 09/26/2024 8:00 AM EST Health Maintenance Due Date Last Done Comments DISCUSS TOBACCO CESSATION (REFER TO SMARTSET #2411) 1972 Depression Screening 1984 Albumin/Creatinine Ratio 1990 [...] (1 - season) 2024 GFR 03/02/2025 09/02/2024, 020 08/2024, 08/31/2024, Additional history exists O2 ASSESSMENT COMPLETED IN PAST YEAR FOR COPD 08/28/2025 08/28/2024 Hgb 09/02/2025 09/02/2024, 02/0 08/2024, 08/31/2024, Additional history exists Phosphate 09/02/2025 09/02/2024, 02/0 08/2024, 08/31/2024, Additional history exists Diabetes Screening [...] this encounter Medical Devices Implanted Type Area Assembler Seat Device Identifier Shelf Expiration Date Model / Serial / Lot Pod Packing Coil Jsoft 45cm - [id number] Implanted:Qty: 1 on 05/10/2024 at [facility] [employer] [id number] 09/30/2031 [id number] / / [id number] Azur Detachable 018 7mmx 24cm - [id number] Implanted:Qty: 1 on 05/10/2024 at [facility] [employer] [id number] 08/30/2028 [id number] / / [id number] Pod Packing Coil Jsoft 45cm - [id number] Implanted:Qty: 1 on 05/10/2024 at [facility] [employer] [id number] 12/26/2031 [id number] 5 / / [id number] Coil Radha Soft 4kno79nl - [id number] Implanted:Qty: 1 on 05/10/2024 at [facility] [employer] [id number] 10/07/2031 [id number] / / [id number] Cath Thermodilution 6fr - [id number] Implanted:Qty: 1 on 08/29/2024 by Rebeca Epps MD at [facility] [employer] [id number] 02/18/2026 [id number] / / [id number] Coil Azur Cx Detach 3x8 - [id number] Implanted:Qty: 1 on 08/31/2024 at [facility] [employer] 04/29/2029 [id number] / / [id number] Coil Azur Cx Detach 3x8 - [id number] Implanted:Qty: 1 on 08/31/2024 at [facility] [employer] [facility] 04/29/2029 [id number] / / [id number] Coil Azur Cx Detach 2x4 - [id number] Implanted:Qty: 1 on 08/31/2024 at [facility] [employer] [facility] 05/30/2029 [id number] / / [id number] Lipiodol Injection - [id number] Implanted:Qty: 1 on 08/31/2024 at [facility] [employer] [id number] 1-2 / documented as of this encounter Visit Diagnoses Diagnosis Alcoholic cirrhosis of liver with ascites (HCC)- Primary Alcoholic cirrhosis of liver Pre-liver transplant, listed documented in this encounter Advance Directives * [...] Relationship Healthcare Agent Relationshi p Communication Manuela Shen Sibling First Alternate Health Care Agent (per Health Care Power of Forklift Supervisor document) Care Teams Immigration Associate Relationship Specialty Start Date End Date JolynnOctober SHAQ Carter [address] [place] [address] PCP - General Physician Tracer Clerk 04/10/24 documented as of this encounter
--- OUTSIDE RECORDS SUMMARY | 2024-09-04 08:54 | External Medical Summary ---
Author Name Unknown Address Unknown Organization K01:[facility] - [address] [place] [address] Laboratory Report Ordering Provider Test Date Status CHEKO FRANCOIS 08/31/2024 07:48:00 Final Observation Date Value Abnormality Reference (Units ) Status Phosphate 08/31/2024 07:48:00 3.0 2.5-4.8 (m g/dL) Final Performing Location [facility] - [address] [place] [address]
--- OUTSIDE RECORDS SUMMARY | 2024-09-04 08:54 | External Medical Summary ---
Author Name Unknown Address Unknown Organization K01:[place] [facility] [place] [address] [place] [address] Laboratory Report Ordering Provider Test Date Status CHEKO FRANCOIS 08/31/2024 07:48:00 Final Warfarin Therapy
INR: 2 .0-3.0 conventional anticoagulation
INR: 2.5- 3.5 high intensity anticoagulation Observation Date Value Abnormality Reference (Units ) Status PT 08/31/2024 07:48:00 17.1 Above high normal 11 .6-15.2 (seconds) Final INR 08/31/2024 07:48:00 1.4 Above high normal 0. 8-1.2 Final Performing Location [facility] [place] [address] [place] [address]
--- OUTSIDE RECORDS SUMMARY | 2024-09-04 08:54 | External Medical Summary ---
Author Name Unknown Address Unknown Organization K01:[facility] [place] [address] [place] [address] Laboratory Report Ordering Provider Test Date Status CHEKO FRANCOIS 09/02/2024 06:34:00 Final Warfarin Therapy
INR: 2 .0-3.0 conventional anticoagulation
INR: 2.5- 3.5 high intensity anticoagulation Observation Date Value Abnormality Reference (Units ) Status PT 09/02/2024 06:34:00 16.9 Above high normal 11 .6-15.2 (seconds) Final INR 09/02/2024 06:34:00 1.4 Above high normal 0. 8-1.2 Final Performing Location [facility] [place] [address] [place] [address]
--- OUTSIDE RECORDS SUMMARY | 2024-09-04 08:54 | External Medical Summary ---
Author Name Unknown Address Unknown Organization K01:LABORATORY C - [address] [place] [address] [place] [address] Laboratory Report Ordering Provider Test Date Status CHEKO FRANCOIS 08/31/2024 07:48:00 Final Observation Date Value Abnormality Reference (Units ) Status Magnesium 08/31/2024 07:48:00 3.0 Above high normal 1. 5-2.6 (mg/dL) Final Performing Location [facility] - [address] [place] [address]
--- OUTSIDE RECORDS SUMMARY | 2024-09-04 08:54 | External Medical Summary ---
Author Name Unknown Address Unknown Organization K01:LABORATORY [facility] [place] - [address] [facility] [place] [address] Laboratory Report Ordering Provider Test Date Status CHEKO FRANCOIS 09/02/2024 06:35:00 Final Observation Date Value Abnormality Reference (Units ) Status BUN 09/02/2024 06:35:00 40 Above high normal 6-20 (mg/dL) Final Creatinine 09/02/2024 06:35:00 1.8 Above high normal 0.6-1.2 (mg/dL) Final Glomerular filtration rate/1.73 sq M.predicted [Volume Rate/Area] in Serum, Plasma or Blood by Creatinine-based formula (CKD-EPI) 09/02/2024 06:35:00 46 Below low normal >=60 (mL/min) Final eGFR is calculated based on the CKD-EPI 2020 equation. Sodium 09/02/2024 06:35:00 125 Below low normal 135 -146 (mmol/L) Final Potassium 09/02/2024 06:35:00 4.8 3.5-5.1 (m mol/L) Final Cl 09/02/2024 06:35:00 99 98-107 (mm ol/L) Final CO2 09/02/2024 06:35:00 18 Below low normal 22- 32 (mmol/L) Final Anion gap 09/02/2024 06:35:00 8 7-15 (mmol /L) Final Glucose 09/02/2024 06:35:00 96 70-120 (mg /dL) Final Albumin 09/02/2024 06:35:00 2.5 Below low normal 3.8 -5.0 (g/dL) Final AST (Aspartate aminotransferase) 09/02/2024 06:35:00 22 10-50 (U/L) Fin al Alk Phos 09/02/2024 06:35:00 57 35-130 (U/ L) Final Bilirubin, Total 09/02/2024 06:35:00 0.7 <=1 .2 (mg/dL) Final Calcium 09/02/2024 06:35:00 7.4 Below low normal 8.4 -10.2 (mg/dL) Final Protein 09/02/2024 06:35:00 5.5 Below low normal 6.0 -8.3 (g/dL) Final ALT (Alanine aminotransferase) 09/02/2024 06:35:00 12 10-50 (U/L) Yohan thomas Performing Location LABORATORY [facility] [place] - [address] [facility] [address]
--- OUTSIDE RECORDS SUMMARY | 2024-09-04 08:54 | External Medical Summary ---
Author Name Unknown Address Unknown Organization K01:LABORATORY [facility] [place] - [address] [facility] [place] [address] Laboratory Report Ordering Provider Test Date Status RADHA FRANCOISSALEEMSALEEM 09/01/2024 06:22:00 Final Observation Date Value Abnormality Reference (Units ) Status BUN 09/01/2024 06:22:00 37 Above high normal 6-20 (mg/dL) Final Creatinine 09/01/2024 06:22:00 1.6 Above high normal 0.6-1.2 (mg/dL) Final Glomerular filtration rate/1.73 sq M.predicted [Volume Rate/Area] in Serum, Plasma or Blood by Creatinine-based formula (CKD-EPI) 09/01/2024 06:22:00 54 Below low normal >=60 (mL/min) Final eGFR is calculated based on the CKD-EPI 2020 equation. Sodium 09/01/2024 06:22:00 124 Below low normal 135 -146 (mmol/L) Final Potassium 09/01/2024 06:22:00 6.0 Above high normal 3. 5-5.1 (mmol/L) Final Cl 09/01/2024 06:22:00 102 98-107 (mm ol/L) Final CO2 09/01/2024 06:22:00 16 Below low normal 22- 32 (mmol/L) Final Anion gap 09/01/2024 06:22:00 6 Below low normal 7-1 5 (mmol/L) Final Glucose 09/01/2024 06:22:00 83 70-120 (mg /dL) Final Albumin 09/01/2024 06:22:00 2.6 Below low normal 3.8 -5.0 (g/dL) Final AST (Aspartate aminotransferase) 09/01/2024 06:22:00 17 10-50 (U/L) Fin al Alk Phos 09/01/2024 06:22:00 51 35-130 (U/ L) Final Bilirubin, Total 09/01/2024 06:22:00 0.9 <=1 .2 (mg/dL) Final Calcium 09/01/2024 06:22:00 7.7 Below low normal 8.4 -10.2 (mg/dL) Final Protein 09/01/2024 06:22:00 5.2 Below low normal 6.0 -8.3 (g/dL) Final ALT (Alanine aminotransferase) 09/01/2024 06:22:00 7 Below low normal 10-50 (U/L) Final Performing Location LABORATORY [facility] [place] - [address] [facility] [address]
--- OUTSIDE RECORDS SUMMARY | 2024-09-04 08:55 | External Medical Summary ---
Author Name Unknown Address Unknown Organization K01:[facility] [place] [facility] [address] Laboratory Report Ordering Provider Test Date Status CHEKO FRANCOIS 08/27/2024 06:45:00 Final Observation Date Value Abnormality Reference (Units ) Status WBC, Total 08/27/2024 06:45:00 9.10 4.00-10.80 (K/uL) Final RBC 08/27/2024 06:45:00 2.20 4.50-5.25 (M/uL) Final Hemoglobin 08/27/2024 06:45:00 6.4 Below low normal 14.0-16.8 (g/dL) Final HCT 08/27/2024 06:45:00 21.3 Below low normal 40.0-48.4 (%) Final MCV 08/27/2024 06:45:00 96.8 82.0-99.5 (fL) Final MCH 08/27/2024 06:45:00 29.1 27.0-34.0 (pg) Final MCHC 08/27/2024 06:45:00 30.0 32.0-36.0 (g/dL) Final RDW 08/27/2024 06:45:00 17.7 11.5-15.5 (%) Final Platelets 08/27/2024 06:45:00 118 Below low normal 140-400 (K/uL) Final MPV 08/27/2024 06:45:00 9.7 6.6-11.1 (fL) Final Nucleated erythrocytes/100 leukocytes [Ratio] in Blood by Automated count 08/27/2024 06:45:00 0 <=0 (/100 WBCs) Final Performing Location [facility] [place] [address] [facility] [address]
--- OUTSIDE RECORDS SUMMARY | 2024-09-04 08:55 | External Medical Summary ---
Author Name Unknown Address Unknown Organization K01:LABORATORY [facility] [place] - [address] [place] [address] Laboratory Report Ordering Provider Test Date Status CHEKO FRANCOIS 08/29/2024 06:33:00 Final Warfarin Therapy
INR: 2 .0-3.0 conventional anticoagulation
INR: 2.5- 3.5 high intensity anticoagulation Observation Date Value Abnormality Reference (Units ) Status PT 08/29/2024 06:33:00 16.4 Above high normal 11 .6-15.2 (seconds) Final INR 08/29/2024 06:33:00 1.3 Above high normal 0. 8-1.2 Final Performing Location LABORATORY [facility] [place] - [address] [place] [address]
--- OUTSIDE RECORDS SUMMARY | 2024-09-04 08:55 | External Medical Summary ---
Author Name Unknown Address Unknown Organization K01:[facility] - [address] [place] [address] Laboratory Report Ordering Provider Test Date Status CHEKO FRANCOIS 08/26/2024 03:29:00 Final Observation Date Value Abnormality Reference (Units ) Status Phosphate 08/26/2024 03:29:00 3.8 2.5-4.8 (m g/dL) Final Performing Location [facility] - [address] [place] [address]
--- OUTSIDE RECORDS SUMMARY | 2024-09-04 08:55 | External Medical Summary ---
Author Name Unknown Address Unknown Organization K01:LABORATORY [facility] [place] - [address] [facility] [address] Laboratory Report Ordering Provider Test Date Status CHEKO FRANCOIS 08/28/2024 09:22:00 Final Observation Date Value Abnormality Reference (Units ) Status WBC, Total 08/28/2024 09:22:00 8.62 4.00-10.80 (K/uL) Final RBC 08/28/2024 09:22:00 2.92 4.50-5.25 (M/uL) Final Hemoglobin 08/28/2024 09:22:00 8.7 Below low normal 14.0-16.8 (g/dL) Final HCT 08/28/2024 09:22:00 28.3 Below low normal 40.0-48.4 (%) Final MCV 08/28/2024 09:22:00 96.9 82.0-99.5 (fL) Final MCH 08/28/2024 09:22:00 29.8 27.0-34.0 (pg) Final MCHC 08/28/2024 09:22:00 30.7 32.0-36.0 (g/dL) Final RDW 08/28/2024 09:22:00 18.4 11.5-15.5 (%) Final Platelets 08/28/2024 09:22:00 153 140-400 (K/uL) Final MPV 08/28/2024 09:22:00 9.4 6.6-11.1 (fL) Final Nucleated erythrocytes/100 leukocytes [Ratio] in Blood by Automated count 08/28/2024 09:22:00 0 <=0 (/100 WBCs) Final Performing Location LABORATORY [facility] [place] - [address] [facility] [address]
--- OUTSIDE RECORDS SUMMARY | 2024-09-04 08:55 | External Medical Summary ---
Author Name Unknown Address Unknown Organization K01:LABORATORY [facility] [place] - [address] [place] [address] Laboratory Report Ordering Provider Test Date Status CHEKO FRANCOIS 08/25/2024 08:38:00 Final Warfarin Therapy
INR: 2 .0-3.0 conventional anticoagulation
INR: 2.5- 3.5 high intensity anticoagulation Observation Date Value Abnormality Reference (Units ) Status PT 08/25/2024 08:38:00 16.7 Above high normal 11 .6-15.2 (seconds) Final INR 08/25/2024 08:38:00 1.3 Above high normal 0. 8-1.2 Final Performing Location LABORATORY [facility] [place] - [address] [place] [id number]
--- OUTSIDE RECORDS SUMMARY | 2024-09-04 08:55 | External Medical Summary ---
Author Name Unknown Address Unknown Organization K01:LABORATORY [facility] [place] [address] [place] [address] Laboratory Report Ordering Provider Test Date Status JOSE G HART 08/24/2024 18:08:00 Final Observation Date Value Abnormality Reference (Units ) Status Hemoglobin 08/24/2024 18:08:00 8.2 Below low normal 14 .0-16.8 (g/dL) Final HCT 08/24/2024 18:08:00 27.7 Below low normal 40. 0-48.4 (%) Final Performing Location LABORATORY [facility] [place] - [address] [place] [address]
--- OUTSIDE RECORDS SUMMARY | 2024-09-04 08:55 | External Medical Summary ---
Author Name Unknown Address Unknown Organization K01:LABORATORY [facility] [place] [facility] - [address] [place] [address] Laboratory Report Ordering Provider Test Date Status JOSE G HART 08/24/2024 09:06:00 Final Observation Date Value Abnormality Reference (Units ) Status ABO 08/24/2024 09:06:00 A Final RH 08/24/2024 09:06:00 Negative Final RED BLOOD CELL ANTIBODY SCREEN 08/24/2024 09:06:00 Negative Final SPECIMEN EXPIRATION DATE 08/24/2024 09:06:00 08/27/2024 23:59 Final Performing Location LABORATORY [facility] [place] [facility] - [address] [place] [address]
--- OUTSIDE RECORDS SUMMARY | 2024-09-04 08:55 | External Medical Summary ---
Author Name Unknown Address Unknown Organization K01:LABORATORY [facility] - [address] [place] [address] Laboratory Report Ordering Provider Test Date Status CHEKO FRANCOIS 08/29/2024 06:33:00 Final Observation Date Value Abnormality Reference (Units ) Status Magnesium 08/29/2024 06:33:00 2.9 Above high normal 1. 5-2.6 (mg/dL) Final Performing Location [facility] - [address] [place] [address]
--- OUTSIDE RECORDS SUMMARY | 2024-09-04 08:55 | External Medical Summary ---
Author Name Unknown Address Unknown Organization K01:[facility] - [address] [place] [address] Laboratory Report Ordering Provider Test Date Status CHEKO FRANCOIS 08/27/2024 06:45:00 Final Observation Date Value Abnormality Reference (Units ) Status Phosphate 08/27/2024 06:45:00 3.2 2.5-4.8 (m g/dL) Final Performing Location LAB[facility] - [address] [place] [address]
--- OUTSIDE RECORDS SUMMARY | 2024-09-04 08:55 | External Medical Summary ---
Author Name Unknown Address Unknown Organization K01:LABORATORY [facility] [place] - [address] [place] [address] Laboratory Report Ordering Provider Test Date Status CHEKO FRANCOIS 08/28/2024 09:22:00 Final Warfarin Therapy
INR: 2 .0-3.0 conventional anticoagulation
INR: 2.5- 3.5 high intensity anticoagulation Observation Date Value Abnormality Reference (Units ) Status PT 08/28/2024 09:22:00 15.5 Above high normal 11 .6-15.2 (seconds) Final INR 08/28/2024 09:22:00 1.2 0.8-1.2 Final Performing Location LABORATORY [facility] [place] - [address] [place] [address]
--- OUTSIDE RECORDS SUMMARY | 2024-09-04 08:55 | External Medical Summary ---
Author Name Unknown Address Unknown Organization K01:LABORATORY [facility] [place] [address] [place] [address] Laboratory Report Ordering Provider Test Date Status CHEKO FRANCOIS 08/30/2024 06:47:00 Final Warfarin Therapy
INR: 2 .0-3.0 conventional anticoagulation
INR: 2.5- 3.5 high intensity anticoagulation Observation Date Value Abnormality Reference (Units ) Status PT 08/30/2024 06:47:00 16.5 Above high normal 11 .6-15.2 (seconds) Final INR 08/30/2024 06:47:00 1.3 Above high normal 0. 8-1.2 Final Performing Location LABORATORY [facility] [place] [address] [place] [address]
--- OUTSIDE RECORDS SUMMARY | 2024-09-04 08:55 | External Medical Summary ---
Author Name Unknown Address Unknown Organization K01:LABORATORY [facility] [place] - [address] [facility] [place] [address] Laboratory Report Ordering Provider Test Date Status CHEKO FRANCOIS 08/26/2024 03:29:00 Final Observation Date Value Abnormality Reference (Units ) Status BUN 08/26/2024 03:29:00 42 Above high normal 6-20 (mg/dL) Final Creatinine 08/26/2024 03:29:00 1.9 Above high normal 0.6-1.2 (mg/dL) Final Glomerular filtration rate/1.73 sq M.predicted [Volume Rate/Area] in Serum, Plasma or Blood by Creatinine-based formula (CKD-EPI) 08/26/2024 03:29:00 41 Below low normal >=60 (mL/min) Final eGFR is calculated based on the CKD-EPI 2020 equation. Sodium 08/26/2024 03:29:00 124 Below low normal 135 -146 (mmol/L) Final Potassium 08/26/2024 03:29:00 5.5 Above high normal 3. 5-5.1 (mmol/L) Final Cl 08/26/2024 03:29:00 101 98-107 (mm ol/L) Final CO2 08/26/2024 03:29:00 15 Below low normal 22- 32 (mmol/L) Final Anion gap 08/26/2024 03:29:00 8 7-15 (mmol /L) Final Glucose 08/26/2024 03:29:00 101 70-120 (mg /dL) Final Albumin 08/26/2024 03:29:00 2.4 Below low normal 3.8 -5.0 (g/dL) Final AST (Aspartate aminotransferase) 08/26/2024 03:29:00 18 10-50 (U/L) Fin al Alk Phos 08/26/2024 03:29:00 60 35-130 (U/ L) Final Bilirubin, Total 08/26/2024 03:29:00 0.9 <=1 .2 (mg/dL) Final Calcium 08/26/2024 03:29:00 7.6 Below low normal 8.4 -10.2 (mg/dL) Final Protein 08/26/2024 03:29:00 5.4 Below low normal 6.0 -8.3 (g/dL) Final ALT (Alanine aminotransferase) 08/26/2024 03:29:00 7 Below low normal 10-50 (U/L) Final Performing Location LABORATORY [facility] [place] - [facility] [address] [facility] [address]
--- OUTSIDE RECORDS SUMMARY | 2024-09-04 08:55 | External Medical Summary ---
Author Name Unknown Address Unknown Organization K01:[facility]ORY [facility] - [address] [place] [address] Laboratory Report Ordering Provider Test Date Status CHEKO FRANCOIS 08/25/2024 08:38:00 Final Observation Date Value Abnormality Reference (Units ) Status Phosphate 08/25/2024 08:38:00 3.6 2.5-4.8 (m g/dL) Final Performing Location LAB[facility] - [address] [place] [address]
--- OUTSIDE RECORDS SUMMARY | 2024-09-04 08:55 | External Medical Summary ---
Author Name Unknown Address Unknown Organization K01:LABORATORY C - [address] [place] [address] Laboratory Report Ordering Provider Test Date Status CHEKO FRANCOIS 08/25/2024 08:38:00 Final Observation Date Value Abnormality Reference (Units ) Status Magnesium 08/25/2024 08:38:00 2.7 Above high normal 1. 5-2.6 (mg/dL) Final Performing Location [facility] - [address] [place] [address]
--- OUTSIDE RECORDS SUMMARY | 2024-09-04 08:55 | External Medical Summary ---
Author Name Unknown Address Unknown Organization K01:LABORATORY [facility] [place] - [facility] [address] Laboratory Report Ordering Provider Test Date Status CHEKO FRANCOIS 08/26/2024 03:29:00 Final Observation Date Value Abnormality Reference (Units ) Status WBC, Total 08/26/2024 03:29:00 10.05 4.00-10.80 (K/uL) Final RBC 08/26/2024 03:29:00 2.66 4.50-5.25 (M/uL) Final Hemoglobin 08/26/2024 03:29:00 7.9 Below low normal 14.0-16.8 (g/dL) Final HCT 08/26/2024 03:29:00 25.6 Below low normal 40.0-48.4 (%) Final MCV 08/26/2024 03:29:00 96.2 82.0-99.5 (fL) Final MCH 08/26/2024 03:29:00 29.7 27.0-34.0 (pg) Final MCHC 08/26/2024 03:29:00 30.9 32.0-36.0 (g/dL) Final RDW 08/26/2024 03:29:00 17.6 11.5-15.5 (%) Final Platelets 08/26/2024 03:29:00 138 Below low normal 140-400 (K/uL) Final MPV 08/26/2024 03:29:00 9.5 6.6-11.1 (fL) Final Nucleated erythrocytes/100 leukocytes [Ratio] in Blood by Automated count 08/26/2024 03:29:00 0 <=0 (/100 WBCs) Final Performing Location LABORATORY [facility] [place] - [address] [facility] [address]
--- OUTSIDE RECORDS SUMMARY | 2024-09-04 08:55 | External Medical Summary ---
Author Name Unknown Address Unknown Organization K01:[place]ORATORY [facility] [place] [address] [place] [address] Laboratory Report Ordering Provider Test Date Status CHEKO FRANCOIS 08/26/2024 03:29:00 Final Warfarin Therapy
INR: 2 .0-3.0 conventional anticoagulation
INR: 2.5- 3.5 high intensity anticoagulation Observation Date Value Abnormality Reference (Units ) Status PT 08/26/2024 03:29:00 17.1 Above high normal 11 .6-15.2 (seconds) Final INR 08/26/2024 03:29:00 1.4 Above high normal 0. 8-1.2 Final Performing Location LABORATORY [facility] [place] [address] [place] [address]
--- OUTSIDE RECORDS SUMMARY | 2024-09-04 08:55 | External Medical Summary ---
Author Name Unknown Address Unknown Organization K01:[facility]ORY [facility] - [address] [place] [address] Laboratory Report Ordering Provider Test Date Status CHEKO FRANCOIS 08/29/2024 06:33:00 Final Observation Date Value Abnormality Reference (Units ) Status Phosphate 08/29/2024 06:33:00 3.6 2.5-4.8 (m g/dL) Final Performing Location LAB[facility] - [address] [place] [address]
--- OUTSIDE RECORDS SUMMARY | 2024-09-04 08:55 | External Medical Summary ---
Author Name Unknown Address Unknown Organization K01:LABORATORY [facility] [place] - [address] [place] [address] Laboratory Report Ordering Provider Test Date Status JOSE G HART 08/27/2024 14:32:00 Final Observation Date Value Abnormality Reference (Units ) Status Hemoglobin 08/27/2024 14:32:00 8.0 Below low normal 14 .0-16.8 (g/dL) Final HCT 08/27/2024 14:32:00 26.5 Below low normal 40. 0-48.4 (%) Final Performing Location LABORATORY [facility] [place] - [address] [place] [address]
--- OUTSIDE RECORDS SUMMARY | 2024-09-04 08:55 | External Medical Summary ---
Author Name Unknown Address Unknown Organization K01:LABORATORY [facility] [place] [facility] [address] Laboratory Report Ordering Provider Test Date Status CHEKO FRANCOIS 08/29/2024 06:33:00 Final Observation Date Value Abnormality Reference (Units ) Status WBC, Total 08/29/2024 06:33:00 10.04 4.00-10.80 (K/uL) Final RBC 08/29/2024 06:33:00 2.91 4.50-5.25 (M/uL) Final Hemoglobin 08/29/2024 06:33:00 8.8 Below low normal 14.0-16.8 (g/dL) Final HCT 08/29/2024 06:33:00 28.3 Below low normal 40.0-48.4 (%) Final MCV 08/29/2024 06:33:00 97.3 82.0-99.5 (fL) Final MCH 08/29/2024 06:33:00 30.2 27.0-34.0 (pg) Final MCHC 08/29/2024 06:33:00 31.1 32.0-36.0 (g/dL) Final RDW 08/29/2024 06:33:00 18.5 11.5-15.5 (%) Final Platelets 08/29/2024 06:33:00 171 140-400 (K/uL) Final MPV 08/29/2024 06:33:00 9.5 6.6-11.1 (fL) Final Nucleated erythrocytes/100 leukocytes [Ratio] in Blood by Automated count 08/29/2024 06:33:00 0 <=0 (/100 WBCs) Final Performing Location LABORATORY [facility] [place] - [address] [facility] [address]
--- OUTSIDE RECORDS SUMMARY | 2024-09-04 08:55 | External Medical Summary ---
Author Name Unknown Address Unknown Organization : Laboratory Report Ordering Provider Test Date Status MARISELA AYALA 08/29/2024 14:50:00 Final Observation Date Value Abnormality Reference (Units ) Status Blood draw [PhenX] 08/29/2024 14:50:00 Right Atrium Final Hemoglobin [Mass/volume] in Blood by Oximetry 08/29/2024 14:50:00 8.2 Below low normal 14.0-16.8 (g/dL) Final Oxyhemoglobin, Fractional, POC (Oximeter) 08/29/2024 14:50:00 78.4 Below low normal 92.0-100.0 (%) Final Oxygen content, POC (Oximeter) 08/29/2024 14:50:00 8.9 1.1-20.9 (mL/dL) Final Performing Location
--- OUTSIDE RECORDS SUMMARY | 2024-09-04 08:55 | External Medical Summary ---
Author Name Unknown Address Unknown Organization K01:LABORATORY [facility] [place] - [address] [facility] [place] [address] Laboratory Report Ordering Provider Test Date Status CHEKO FRANCOIS 08/30/2024 06:47:00 Final Observation Date Value Abnormality Reference (Units ) Status BUN 08/30/2024 06:47:00 38 Above high normal 6-20 (mg/dL) Final Creatinine 08/30/2024 06:47:00 1.6 Above high normal 0.6-1.2 (mg/dL) Final Glomerular filtration rate/1.73 sq M.predicted [Volume Rate/Area] in Serum, Plasma or Blood by Creatinine-based formula (CKD-EPI) 08/30/2024 06:47:00 51 Below low normal >=60 (mL/min) Final eGFR is calculated based on the CKD-EPI 2020 equation. Sodium 08/30/2024 06:47:00 128 Below low normal 135 -146 (mmol/L) Final Potassium 08/30/2024 06:47:00 5.6 Above high normal 3. 5-5.1 (mmol/L) Final Cl 08/30/2024 06:47:00 103 98-107 (mm ol/L) Final CO2 08/30/2024 06:47:00 18 Below low normal 22- 32 (mmol/L) Final Anion gap 08/30/2024 06:47:00 7 7-15 (mmol /L) Final Glucose 08/30/2024 06:47:00 111 70-120 (mg /dL) Final Albumin 08/30/2024 06:47:00 2.4 Below low normal 3.8 -5.0 (g/dL) Final AST (Aspartate aminotransferase) 08/30/2024 06:47:00 21 10-50 (U/L) Fin al Alk Phos 08/30/2024 06:47:00 60 35-130 (U/ L) Final Bilirubin, Total 08/30/2024 06:47:00 0.9 <=1 .2 (mg/dL) Final Calcium 08/30/2024 06:47:00 7.6 Below low normal 8.4 -10.2 (mg/dL) Final Protein 08/30/2024 06:47:00 5.5 Below low normal 6.0 -8.3 (g/dL) Final ALT (Alanine aminotransferase) 08/30/2024 06:47:00 11 10-50 (U/L) Yohan thomas Performing Location LABORATORY [facility] [place] - [facility] [address] [facility] [address]
--- OUTSIDE RECORDS SUMMARY | 2024-09-04 08:55 | External Medical Summary ---
Author Name Unknown Address Unknown Organization K01:LABORATORY [facility] [place] [address] [place] [address] Laboratory Report Ordering Provider Test Date Status INO,BHAVESH 08/28/2024 09:22:00 Final Exclude Heart Failure: <300 pg/mL
Diagnose Heart Failure:
Age <50 yr: >450 pg/mL
50-75 yr: >900 pg/mL
>75 yr: >1800 pg/mL
GFR is 30-59 mL/min: >1200 pg/mL or Age- adjusted values
GFR <30 mL/min: do not use, not reliable

Prognostic threshold: 1000 pg/mL Observation Date Value Abnormality Reference (Units ) Status BNP, Pro-hormone 08/28/2024 09:22:00 333 Above high no rmal <300 (pg/mL) Final Performing Location LABORATORY [facility] [place] - [address] [place] [address]
--- OUTSIDE RECORDS SUMMARY | 2024-09-04 08:55 | External Medical Summary ---
Author Name Unknown Address Unknown Organization : Laboratory Report Ordering Provider Test Date Status MARISELA AYALA 08/29/2024 14:56:08 Final Observation Date Value Abnormality Reference (Units) Status Blood draw [PhenX] 08/29/2024 14:56:08 Arterial Draw Final pH, POC (i-STAT) 08/29/2024 14:56:08 7.316 Below low normal 7.350-7.450 Final PCO2 POC (i-STAT) 08/29/2024 14:56:08 31.8 Below low normal 35.0-45.0 (mm Hg) Final PO2 POC (i-STAT) 08/29/2024 14:56:08 44 Below lower panic limits 75-100 (mm Hg) Final Base excess standard in Arterial blood by calculation 08/29/2024 14:56:08 -9 Below low normal -2-2 (mmol/L) Final Bicarbonate, Venous, POC (i-STAT) 08/29/2024 14:56:08 16.2 Below low normal 23.0-31.0 (mmol/L) Final O2 Sat, calculated POC (i-STAT) 08/29/2024 14:56:08 76.0 Below low normal 94.0-98.0 (%) Final Glucose, whole blood 08/29/2024 14:56:08 95 70-120 (mg/dL) Final Potassium, Whole Blood 08/29/2024 14:56:08 5.2 Above high normal 3.5-5.1 (mmol/L) Final Sodium, Whole Blood 08/29/2024 14:56:08 130 Below low normal 135-146 (mmol/L) Final Calcium, Ionized, Whole Blood 08/29/2024 14:56:08 1.26 1.13-1.32 (mmol/L) Final Hemoglobin POC (i-STAT) 08/29/2024 14:56:08 8.5 Below low normal 14.0-16.8 (g/dL) Final HCT 08/29/2024 14:56:08 25 Below low normal 40-48 (%) Final Performing Location
--- OUTSIDE RECORDS SUMMARY | 2024-09-04 08:55 | External Medical Summary ---
Author Name Unknown Address Unknown Organization K01:[place] [facility] [place] [address] [facility] [place] [address] Laboratory Report Ordering Provider Test Date Status CHEKO FRANCOIS 08/29/2024 06:33:00 Final Observation Date Value Abnormality Reference (Units ) Status BUN 08/29/2024 06:33:00 38 Above high normal 6-20 (mg/dL) Final Creatinine 08/29/2024 06:33:00 1.4 Above high normal 0.6-1.2 (mg/dL) Final Glomerular filtration rate/1.73 sq M.predicted [Volume Rate/Area] in Serum, Plasma or Blood by Creatinine-based formula (CKD-EPI) 08/29/2024 06:33:00 59 Below low normal >=60 (mL/min) Final eGFR is calculated based on the CKD-EPI 2020 equation. Sodium 08/29/2024 06:33:00 128 Below low normal 135 -146 (mmol/L) Final Potassium 08/29/2024 06:33:00 4.8 3.5-5.1 (m mol/L) Final Cl 08/29/2024 06:33:00 102 98-107 (mm ol/L) Final CO2 08/29/2024 06:33:00 17 Below low normal 22- 32 (mmol/L) Final Anion gap 08/29/2024 06:33:00 9 7-15 (mmol /L) Final Glucose 08/29/2024 06:33:00 122 Above high normal 70 -120 (mg/dL) Final Albumin 08/29/2024 06:33:00 2.5 Below low normal 3.8 -5.0 (g/dL) Final AST (Aspartate aminotransferase) 08/29/2024 06:33:00 19 10-50 (U/L) Fin al Alk Phos 08/29/2024 06:33:00 58 35-130 (U/ L) Final Bilirubin, Total 08/29/2024 06:33:00 0.9 <=1 .2 (mg/dL) Final Calcium 08/29/2024 06:33:00 7.9 Below low normal 8.4 -10.2 (mg/dL) Final Protein 08/29/2024 06:33:00 5.6 Below low normal 6.0 -8.3 (g/dL) Final ALT (Alanine aminotransferase) 08/29/2024 06:33:00 12 10-50 (U/L) Yohan thomas Performing Location [place] [facility] [place] [address] [facility] [address]
--- OUTSIDE RECORDS SUMMARY | 2024-09-04 08:55 | External Medical Summary ---
Author Name Unknown Address Unknown Organization K01:LABORATORY C - [address] [place] [address] Laboratory Report Ordering Provider Test Date Status CHEKO FRANCOIS 08/26/2024 03:29:00 Final Observation Date Value Abnormality Reference (Units ) Status Magnesium 08/26/2024 03:29:00 2.7 Above high normal 1. 5-2.6 (mg/dL) Final Performing Location LAB[facility]ATORY [facility] - [address] [place] [address]
--- OUTSIDE RECORDS SUMMARY | 2024-09-04 08:55 | External Medical Summary ---
Author Name Unknown Address Unknown Organization K01:[place] [facility] [place] [facility] [address] Laboratory Report Ordering Provider Test Date Status CHEKO FRANCOIS 08/25/2024 08:38:00 Final Observation Date Value Abnormality Reference (Units ) Status WBC, Total 08/25/2024 08:38:00 8.66 4.00-10.80 (K/uL) Final RBC 08/25/2024 08:38:00 2.90 4.50-5.25 (M/uL) Final Hemoglobin 08/25/2024 08:38:00 8.3 Below low normal 14.0-16.8 (g/dL) Final HCT 08/25/2024 08:38:00 27.6 Below low normal 40.0-48.4 (%) Final MCV 08/25/2024 08:38:00 95.2 82.0-99.5 (fL) Final MCH 08/25/2024 08:38:00 28.6 27.0-34.0 (pg) Final MCHC 08/25/2024 08:38:00 30.1 32.0-36.0 (g/dL) Final RDW 08/25/2024 08:38:00 17.9 11.5-15.5 (%) Final Platelets 08/25/2024 08:38:00 144 140-400 (K/uL) Final MPV 08/25/2024 08:38:00 9.5 6.6-11.1 (fL) Final Nucleated erythrocytes/100 leukocytes [Ratio] in Blood by Automated count 08/25/2024 08:38:00 0 <=0 (/100 WBCs) Final Performing Location [place] [facility] [place] [address] [facility] [address]
--- OUTSIDE RECORDS SUMMARY | 2024-09-04 08:55 | External Medical Summary ---
Author Name Unknown Address Unknown Organization K01:LABORATORY [facility] [place] - [address] [facility] [place] [address] Laboratory Report Ordering Provider Test Date Status CHEKO FRANCOIS 08/28/2024 09:22:00 Final Observation Date Value Abnormality Reference (Units ) Status BUN 08/28/2024 09:22:00 37 Above high normal 6-20 (mg/dL) Final Creatinine 08/28/2024 09:22:00 1.4 Above high normal 0.6-1.2 (mg/dL) Final Glomerular filtration rate/1.73 sq M.predicted [Volume Rate/Area] in Serum, Plasma or Blood by Creatinine-based formula (CKD-EPI) 08/28/2024 09:22:00 62 >=60 (mL/min) Final eGFR is calculated based on the CKD-EPI 2020 equation. Sodium 08/28/2024 09:22:00 124 Below low normal 135 -146 (mmol/L) Final Potassium 08/28/2024 09:22:00 5.1 3.5-5.1 (m mol/L) Final Cl 08/28/2024 09:22:00 101 98-107 (mm ol/L) Final CO2 08/28/2024 09:22:00 15 Below low normal 22- 32 (mmol/L) Final Anion gap 08/28/2024 09:22:00 8 7-15 (mmol /L) Final Glucose 08/28/2024 09:22:00 103 70-120 (mg /dL) Final Albumin 08/28/2024 09:22:00 2.6 Below low normal 3.8 -5.0 (g/dL) Final AST (Aspartate aminotransferase) 08/28/2024 09:22:00 21 10-50 (U/L) Fin al Alk Phos 08/28/2024 09:22:00 53 35-130 (U/ L) Final Bilirubin, Total 08/28/2024 09:22:00 1.1 <=1 .2 (mg/dL) Final Calcium 08/28/2024 09:22:00 7.7 Below low normal 8.4 -10.2 (mg/dL) Final Protein 08/28/2024 09:22:00 5.6 Below low normal 6.0 -8.3 (g/dL) Final ALT (Alanine aminotransferase) 08/28/2024 09:22:00 10 10-50 (U/L) Yohan thomas Performing Location LABORATORY [facility] [place] - [address] [facility] [address]
--- OUTSIDE RECORDS SUMMARY | 2024-09-04 08:55 | External Medical Summary ---
Author Name Unknown Address Unknown Organization K01:LABORATORY [facility] - [address] [place] [address] Laboratory Report Ordering Provider Test Date Status CHEKO FRANCOIS 08/28/2024 09:22:00 Final Observation Date Value Abnormality Reference (Units ) Status Phosphate 08/28/2024 09:22:00 3.3 2.5-4.8 (m g/dL) Final Performing Location LABORATORY [facility] - [address] [place] [address]
--- OUTSIDE RECORDS SUMMARY | 2024-09-04 08:55 | External Medical Summary ---
Author Name Unknown Address Unknown Organization K01:LABORATORY [facility] [place] [facility] - [address] [place] [address] Laboratory Report Ordering Provider Test Date Status CHEKO FRANCOIS 08/27/2024 10:02:00 Final Observation Date Value Abnormality Reference (Units ) Status ABO 08/27/2024 10:02:00 A Final RH 08/27/2024 10:02:00 Negative Final RED BLOOD CELL ANTIBODY SCREEN 08/27/2024 10:02:00 Negative Final SPECIMEN EXPIRATION DATE 08/27/2024 10:02:00 08/30/2024 23:59 Final Performing Location LABORATORY [facility] [place] [facility] - [address] [place] [address]
--- OUTSIDE RECORDS SUMMARY | 2024-09-04 08:55 | External Medical Summary ---
Author Name Unknown Address Unknown Organization : Laboratory Report Ordering Provider Test Date Status MARISELA AYALA 08/29/2024 14:52:00 Final Observation Date Value Abnormality Reference (Units) Status Blood draw [PhenX] 08/29/2024 14:52:00 Pulmonary Artery Final Hemoglobin [Mass/volume] in Blood by Oximetry 08/29/2024 14:52:00 8.0 Below low normal 14.0-16.8 (g/dL) Final Oxyhemoglobin, Fractional, POC (Oximeter) 08/29/2024 14:52:00 77.9 Below low normal 92.0-100.0 (%) Final Oxygen content, POC (Oximeter) 08/29/2024 14:52:00 8.7 1.1-20.9 (mL/dL) Final Performing Location
--- OUTSIDE RECORDS SUMMARY | 2024-09-04 08:55 | External Medical Summary ---
Author Name Unknown Address Unknown Organization K01:LABORATORY C - [address] [place] [id number] Laboratory Report Ordering Provider Test Date Status CHEKO FRANCOIS 08/28/2024 09:22:00 Final Observation Date Value Abnormality Reference (Units ) Status Magnesium 08/28/2024 09:22:00 2.8 Above high normal 1. 5-2.6 (mg/dL) Final Performing Location LABORATORY [facility] - [address] [place] [id number]
--- OUTSIDE RECORDS SUMMARY | 2024-09-04 08:55 | External Medical Summary ---
Author Name Unknown Address Unknown Organization K01:[place] [facility] [place] [address] [facility] [place] [address] Laboratory Report Ordering Provider Test Date Status CHEKO FRANCOIS 08/27/2024 06:45:00 Final Observation Date Value Abnormality Reference (Units ) Status BUN 08/27/2024 06:45:00 41 Above high normal 6-20 (mg/dL) Final Creatinine 08/27/2024 06:45:00 1.6 Above high normal 0.6-1.2 (mg/dL) Final Glomerular filtration rate/1.73 sq M.predicted [Volume Rate/Area] in Serum, Plasma or Blood by Creatinine-based formula (CKD-EPI) 08/27/2024 06:45:00 51 Below low normal >=60 (mL/min) Final eGFR is calculated based on the CKD-EPI 2020 equation. Sodium 08/27/2024 06:45:00 123 Below low normal 135 -146 (mmol/L) Final Potassium 08/27/2024 06:45:00 5.6 Above high normal 3. 5-5.1 (mmol/L) Final Cl 08/27/2024 06:45:00 101 98-107 (mm ol/L) Final CO2 08/27/2024 06:45:00 16 Below low normal 22- 32 (mmol/L) Final Anion gap 08/27/2024 06:45:00 6 Below low normal 7-1 5 (mmol/L) Final Glucose 08/27/2024 06:45:00 98 70-120 (mg /dL) Final Albumin 08/27/2024 06:45:00 2.3 Below low normal 3.8 -5.0 (g/dL) Final AST (Aspartate aminotransferase) 08/27/2024 06:45:00 15 10-50 (U/L) Fin al Alk Phos 08/27/2024 06:45:00 47 35-130 (U/ L) Final Bilirubin, Total 08/27/2024 06:45:00 0.7 <=1 .2 (mg/dL) Final Calcium 08/27/2024 06:45:00 7.2 Below low normal 8.4 -10.2 (mg/dL) Final Protein 08/27/2024 06:45:00 4.8 Below low normal 6.0 -8.3 (g/dL) Final ALT (Alanine aminotransferase) 08/27/2024 06:45:00 10 10-50 (U/L) Yohan thomas Performing Location [place] [facility] [place] [address] [facility] [address]
--- OUTSIDE RECORDS SUMMARY | 2024-09-04 08:55 | External Medical Summary ---
Author Name Unknown Address Unknown Organization K01:LAB[place]ATORY [facility] [place] [address] [place] [address] Laboratory Report Ordering Provider Test Date Status CHEKO FRANCOIS 08/27/2024 06:45:00 Final Warfarin Therapy
INR: 2 .0-3.0 conventional anticoagulation
INR: 2.5- 3.5 high intensity anticoagulation Observation Date Value Abnormality Reference (Units ) Status PT 08/27/2024 06:45:00 17.9 Above high normal 11 .6-15.2 (seconds) Final INR 08/27/2024 06:45:00 1.5 Above high normal 0. 8-1.2 Final Performing Location LABORATORY [facility] [place] - [address] [place] [address]
--- OUTSIDE RECORDS SUMMARY | 2024-09-04 08:55 | External Medical Summary ---
Author Name Unknown Address Unknown Organization K01:LABORATORY C - [address] [place] [address] Laboratory Report Ordering Provider Test Date Status CHEKO FRANCOIS 08/27/2024 06:45:00 Final Observation Date Value Abnormality Reference (Units ) Status Magnesium 08/27/2024 06:45:00 2.7 Above high normal 1. 5-2.6 (mg/dL) Final Performing Location LABORATORY [facility] - [address] [place] [address]
--- OUTSIDE RECORDS SUMMARY | 2024-09-04 08:55 | External Medical Summary ---
Author Name Unknown Address Unknown Organization K01:[place] [facility] [place] [facility] [address] Laboratory Report Ordering Provider Test Date Status CHEKO FRANCOIS 08/30/2024 06:47:00 Final Observation Date Value Abnormality Reference (Units ) Status WBC, Total 08/30/2024 06:47:00 10.33 4.00-10.80 (K/uL) Final RBC 08/30/2024 06:47:00 2.61 4.50-5.25 (M/uL) Final Hemoglobin 08/30/2024 06:47:00 7.9 Below low normal 14.0-16.8 (g/dL) Final HCT 08/30/2024 06:47:00 25.4 Below low normal 40.0-48.4 (%) Final MCV 08/30/2024 06:47:00 97.3 82.0-99.5 (fL) Final MCH 08/30/2024 06:47:00 30.3 27.0-34.0 (pg) Final MCHC 08/30/2024 06:47:00 31.1 32.0-36.0 (g/dL) Final RDW 08/30/2024 06:47:00 18.9 11.5-15.5 (%) Final Platelets 08/30/2024 06:47:00 152 140-400 (K/uL) Final MPV 08/30/2024 06:47:00 9.1 6.6-11.1 (fL) Final Nucleated erythrocytes/100 leukocytes [Ratio] in Blood by Automated count 08/30/2024 06:47:00 0 <=0 (/100 WBCs) Final Performing Location [place] [facility] [place] [address] [facility] [address]
--- OUTSIDE RECORDS SUMMARY | 2024-09-04 08:55 | External Medical Summary ---
Author Name Unknown Address Unknown Organization K01:[place] [facility] [place] [address] [facility] [place] [address] Laboratory Report Ordering Provider Test Date Status CHEKO FRANCOIS 08/25/2024 08:38:00 Final Observation Date Value Abnormality Reference (Units ) Status BUN 08/25/2024 08:38:00 38 Above high normal 6-20 (mg/dL) Final Creatinine 08/25/2024 08:38:00 1.8 Above high normal 0.6-1.2 (mg/dL) Final Glomerular filtration rate/1.73 sq M.predicted [Volume Rate/Area] in Serum, Plasma or Blood by Creatinine-based formula (CKD-EPI) 08/25/2024 08:38:00 46 Below low normal >=60 (mL/min) Final eGFR is calculated based on the CKD-EPI 2020 equation. Sodium 08/25/2024 08:38:00 125 Below low normal 135 -146 (mmol/L) Final Potassium 08/25/2024 08:38:00 5.0 3.5-5.1 (m mol/L) Final Cl 08/25/2024 08:38:00 100 98-107 (mm ol/L) Final CO2 08/25/2024 08:38:00 16 Below low normal 22- 32 (mmol/L) Final Anion gap 08/25/2024 08:38:00 9 7-15 (mmol /L) Final Glucose 08/25/2024 08:38:00 91 70-120 (mg /dL) Final Albumin 08/25/2024 08:38:00 2.8 Below low normal 3.8 -5.0 (g/dL) Final AST (Aspartate aminotransferase) 08/25/2024 08:38:00 19 10-50 (U/L) Fin al Alk Phos 08/25/2024 08:38:00 56 35-130 (U/ L) Final Bilirubin, Total 08/25/2024 08:38:00 1.6 Above high no rmal <=1.2 (mg/dL) Final Calcium 08/25/2024 08:38:00 7.7 Below low normal 8.4 -10.2 (mg/dL) Final Protein 08/25/2024 08:38:00 5.6 Below low normal 6.0 -8.3 (g/dL) Final ALT (Alanine aminotransferase) 08/25/2024 08:38:00 14 10-50 (U/L) Yohan thomas Performing Location [place] [facility] [address] [facility] [address]
--- OUTSIDE RECORDS SUMMARY | 2024-09-04 08:56 | External Medical Summary ---
Author Name Unknown Address Unknown Organization K01:[place] [facility] [place] [address] [facility] [place] [address] Laboratory Report Ordering Provider Test Date Status CHEKO FRANCOIS 08/23/2024 07:19:00 Final Observation Date Value Abnormality Reference (Units ) Status BUN 08/23/2024 07:19:00 44 Above high normal 6-20 (mg/dL) Final Creatinine 08/23/2024 07:19:00 2.0 Above high normal 0.6-1.2 (mg/dL) Final Glomerular filtration rate/1.73 sq M.predicted [Volume Rate/Area] in Serum, Plasma or Blood by Creatinine-based formula (CKD-EPI) 08/23/2024 07:19:00 41 Below low normal >=60 (mL/min) Final eGFR is calculated based on the CKD-EPI 2020 equation. Sodium 08/23/2024 07:19:00 125 Below low normal 135 -146 (mmol/L) Final Potassium 08/23/2024 07:19:00 4.8 3.5-5.1 (m mol/L) Final Cl 08/23/2024 07:19:00 98 98-107 (mm ol/L) Final CO2 08/23/2024 07:19:00 18 Below low normal 22- 32 (mmol/L) Final Anion gap 08/23/2024 07:19:00 9 7-15 (mmol /L) Final Glucose 08/23/2024 07:19:00 121 Above high normal 70 -120 (mg/dL) Final Albumin 08/23/2024 07:19:00 2.4 Below low normal 3.8 -5.0 (g/dL) Final AST (Aspartate aminotransferase) 08/23/2024 07:19:00 17 10-50 (U/L) Fin al Alk Phos 08/23/2024 07:19:00 53 35-130 (U/ L) Final Bilirubin, Total 08/23/2024 07:19:00 1.5 Above high no rmal <=1.2 (mg/dL) Final Calcium 08/23/2024 07:19:00 7.3 Below low normal 8.4 -10.2 (mg/dL) Final Protein 08/23/2024 07:19:00 4.9 Below low normal 6.0 -8.3 (g/dL) Final ALT (Alanine aminotransferase) 08/23/2024 07:19:00 12 10-50 (U/L) Yohan thomas Performing Location [place]ORY [facility] [place] [address] [facility] [address]
--- OUTSIDE RECORDS SUMMARY | 2024-09-04 08:56 | External Medical Summary ---
Author Name Unknown Address Unknown Organization K01:[place] [facility] [place] [address] [facility] [address] [facility] [address] Laboratory Report Ordering Provider Test Date Status CHEKO FRANCOIS 08/21/2024 15:47:00 Final Q2H until potassium less arelis n 5.5mEq/L Observation Date Value Abnormality Reference (Units ) Status Potassium, Whole Blood 08/21/2024 15:47:00 5.6 Above high normal 3.5-5.1 (mmol/L) Final Performing Location [place] [facility] [place] [address] [facility] [address]
--- OUTSIDE RECORDS SUMMARY | 2024-09-04 08:56 | External Medical Summary ---
Author Name Unknown Address Unknown Organization K01:LABORATORY [facility] [place] [address] [place] [address] Laboratory Report Ordering Provider Test Date Status JOSE G HART 08/23/2024 07:19:00 Final Observation Date Value Abnormality Reference (Units ) Status Cystatin C [Mass/volume] in Serum or Plasma 08/23/2024 07:19:00 2.60 Above high normal 0.67-1.21 (mg/L) Final Glomerular filtration rate/1.73 sq M.predicted [Volume Rate/Area] in Serum, Plasma or Blood by Cystatin-based formula 08/23/2024 07:19:00 23 Below low normal >=60 (mL/min) Final eGFR is calculated based on the CKD-EPI 2012 equation. Performing Location LABORATORY [facility] [place] - [address] [place] [address]
--- OUTSIDE RECORDS SUMMARY | 2024-09-04 08:56 | External Medical Summary ---
Author Name Unknown Address Unknown Organization : Laboratory Report Ordering Provider Test Date Status JOSE G HART 08/21/2024 15:47:14 Final Observation Date Value Abnormality Reference (Units ) Status Glucose Point of Care 08/21/2024 15:47:14 58 Below low normal 70-120 (mg/dL) Final Performing Location
--- OUTSIDE RECORDS SUMMARY | 2024-09-04 08:56 | External Medical Summary ---
Author Name Unknown Address Unknown Organization K01:LABORATORY [facility] [place] - [address] [place] [address] Laboratory Report Ordering Provider Test Date Status JSOE G HART 08/22/2024 14:31:09 Preliminary Observation Date Value Abnormality Reference (Units) Status Bacteria identified in Specimen by Culture 08/22/2024 14:31:09 No acid fast bacilli isolated to date Preliminary Microscopic observation [Identifier] in Specimen by Rhodamine-auramine fluorochrome stain 08/22/2024 14:31:09 No acid fast bacilli seen Preliminary Test: Culture, AFB
Spec imen Source: Peritoneal Fluid
Specimen Type: Body Fluid
Specimen Date: 08/22/2024 1431
Result Date: 08/27/2024 0740
Result Status: Preliminary result
Resulting Lab: LABORATORY [facility] – [place]
[address]
[place] [address]

CULTURE

No acid fast bacilli isolated to date

STAIN

No acid fast bacilli seen

null Performing Location LABORATORY [facility] – [place] - [address] [place] [address]
--- OUTSIDE RECORDS SUMMARY | 2024-09-04 08:56 | External Medical Summary ---
Author Name Unknown Address Unknown Organization K01:LABORATORY [facility] - [address] [place] [address] Laboratory Report Ordering Provider Test Date Status CHEKO FRANCOIS 08/24/2024 07:58:00 Final Observation Date Value Abnormality Reference (Units ) Status Magnesium 08/24/2024 07:58:00 2.6 1.5-2.6 (m g/dL) Final Performing Location LABORATORY [facility] - [address] [place] [address]
--- OUTSIDE RECORDS SUMMARY | 2024-09-04 08:56 | External Medical Summary ---
Author Name Unknown Address Unknown Organization K01:LABORATORY [facility] [place] - [address] [place] [address] Laboratory Report Ordering Provider Test Date Status SOWMYA ALEXANDRA 08/22/2024 20:41:00 Final Observation Date Value Abnormality Reference (Units ) Status Hemoglobin 08/22/2024 20:41:00 7.5 Below low normal 14 .0-16.8 (g/dL) Final HCT 08/22/2024 20:41:00 24.4 Below low normal 40. 0-48.4 (%) Final Performing Location LABORATORY [facility] [place] - [address] [place] [address]
--- OUTSIDE RECORDS SUMMARY | 2024-09-04 08:56 | External Medical Summary ---
Author Name Unknown Address Unknown Organization K01:LABORATORY [facility] [place] [facility] [address] Laboratory Report Ordering Provider Test Date Status CHEKO FRANCOIS 08/24/2024 07:58:00 Final Observation Date Value Abnormality Reference (Units ) Status WBC, Total 08/24/2024 07:58:00 9.21 4.00-10.80 (K/uL) Final RBC 08/24/2024 07:58:00 2.41 4.50-5.25 (M/uL) Final Hemoglobin 08/24/2024 07:58:00 6.9 Below low normal 14.0-16.8 (g/dL) Final HCT 08/24/2024 07:58:00 22.6 Below low normal 40.0-48.4 (%) Final MCV 08/24/2024 07:58:00 93.8 82.0-99.5 (fL) Final MCH 08/24/2024 07:58:00 28.6 27.0-34.0 (pg) Final MCHC 08/24/2024 07:58:00 30.5 32.0-36.0 (g/dL) Final RDW 08/24/2024 07:58:00 17.2 11.5-15.5 (%) Final Platelets 08/24/2024 07:58:00 136 Below low normal 140-400 (K/uL) Final MPV 08/24/2024 07:58:00 8.8 6.6-11.1 (fL) Final Nucleated erythrocytes/100 leukocytes [Ratio] in Blood by Automated count 08/24/2024 07:58:00 0 <=0 (/100 WBCs) Final Performing Location LABORATORY [facility] [place] - [address] [facility] [address]
--- OUTSIDE RECORDS SUMMARY | 2024-09-04 08:56 | External Medical Summary ---
Author Name Unknown Address Unknown Organization : Laboratory Report Ordering Provider Test Date Status JOSE G HART 08/21/2024 17:27:39 Final Observation Date Value Abnormality Reference (Units ) Status Glucose Point of Care 08/21/2024 17:27:39 86 70-120 (mg/dL) Final Performing Location
--- OUTSIDE RECORDS SUMMARY | 2024-09-04 08:56 | External Medical Summary | Summary of Care ---
Author Name Unknown Organization [facility] Address [address] [place] [address] Phone [phone] Care Team Providers Care Drivematic Machine Operator Name Role Phone Jolynn Rina Carter PA-C Primary Care Provider [phone] Reason for Visit * Auth/Cert Specialty Diagnoses / Procedures Referred By Rick ruby Referred To Contact Diagnoses GI bleed GI Bleed Scott Abreu MD [address] [facility] [place] [address] Phone: tel: fax: Admissions, [facility] [address] [place] [address] Referral ID Status Reason Start Date Expiration Date Visits Re quested Visits Authorized [id number] Encounter Details Date Type Department Care Team (Latest Contact Info) Description 08/21/2024 12:00 PM EST - 08/21/2024 1:58 PM EST Hospital Encounter Cardiac Studies [facility] [address] [place] [address] Discharge Disposition: Home - Self Care Allergies Active Allergy Reactions Criticality Noted Date Comments Penicillins Unknown 08/09/2023 documented as of this encounter (statuses as of 08/22/2024) Medications Pantoprazole Sodium 40 MG Oral Tablet Delayed Release (Protonix) Take 1 Tablet by mouth in the morning and 1 Tablet in the evening. 60 Tablet 5 4 Suspended Gabapentin 300 MG Oral Capsule (Neurontin)Indic ations:Chronic bilateral low back pain with bilateral sciatica,Paresth esias Take 1 Capsule by mouth in the morning and 1 Capsule at noon and 1 Capsule before bedtime. 90 Capsule 5 4 Suspended Fluticasone Furoate 100 MCG/ACT Inhalation Aerosol Powder Breath Activated (ARNUITY ellipta) Inhale 1 Puff by mouth in the morning. 30 Each 5 4 Suspended Torsemide 20 MG Oral Tablet (Demadex) Take 2 Tablets by mouth in the morning and 2 Tablets before bedtime. 360 Tablet 3 4 Suspended Constulose 10 GM/15ML Oral Solution Take 30 mL by mouth in the morning and 30 mL before bedtime. For 3 BM's per day. 4 Suspended Folic Acid 1 MG Oral Tablet Take 5 Tablets by mouth in the morning. 150 Tablet 5 4 Suspended Spironolactone 50 MG Oral Tablet (Aldactone) Take 2 Tablets by mouth in the morning. 4 Suspended hydrOXYzine HCl 10 MG Oral Tablet (Atarax) Take 1 Tablet by mouth every 6 hours as needed for Itching. 40 Tablet 2 4 Suspended traZODone HCl 50 MG Oral Tablet (Desyrel) Take 1 Tablet by mouth at bedtime. 30 Tablet 5 4 Suspended Cholestyramine 4 GM Oral Packet (Questran) Take 1 Packet by mouth in the morning and 1 Packet at noon and 1 Packet in the evening. Take with meals. 270 Packet 3 4 10/14/19 25 Suspended Nicotine 21 MG/24HR Transdermal Patch 24 Hour (Nicoderm CQ) One 21 mg patch daily for 6 wks; then one 14 mg patch daily for 2 wks; then one 7 mg patch daily for 2 wks. Remove old patch daily 42 Patch 1 4 08/26/19 25 Suspended Nicotine 14 MG/24HR Transdermal Patch 24 Hour (Nicoderm CQ) One 14 mg patch daily for 2 wks; then one 7 mg patch daily for 2 wks. Remove old patch daily Do not start before August 26, 2024. 14 Patch 2 5 09/09/19 25 Suspended Nicotine 7 MG/24HR Transdermal Patch 24 Hour (Nicoderm CQ) One 7 mg patch daily for 2 weeks; Remove old patch daily; and then stop. 14 Patch 1 4 Suspended Midodrine HCl 5 MG Oral Tablet (Proamatine) Take 1 Tablet by mouth in the morning and 1 Tablet at noon and 1 Tablet in the evening. 90 Tablet 3 4 Suspended documented as of this encounter (statuses as of 08/22/2024) Active Problems Problem Noted Date Diagnosed Date Symptomatic anemia 08/21/2024 Acute hyperkalemia 08/21/2024 Secondary esophageal varices [...] as of this encounter (statuses as of 08/22/2024) Resolved Problems Problem Noted Date Diagnosed Date Resolved Date Upper GI bleed 05/09/2024 05/12/2024 documented as of this encounter (statuses as of 08/22/2024) Immunizations Name Administration Dates Next Due Seasonal [...] of Assessment Author No 05/09/2024 7:00 PM EDKeisha Gutierrez RN * Are you blind or do [...] Office Visit Hepatology, [facility] [address] [facility] [place] [address] Sari Holder MD [address] [facility] [place] [address] 09/11/2024 10:20 AM EST Office Visit Family Practice [facility] [address] [place] [address] Rina Neil PA-C [address] [place] [address] 01/13/2025 1:45 PM EDT Imaging Radiology [facility] [address] [place] [address] Health Maintenance Due Date Last Done Comments DISCUSS TOBACCO CESSATION (REFER TO SMARTSET #8233) 1972 Depression Screening 1984 Albumin/Creatinine Ratio 1990 [...] of 2) 2022 COVID-19 Vaccine ( - 2023- season) 2024 GFR 02/19/2025 08/22/2024, 08/01, 07/15/2024, Additional history exists O2 ASSESSMENT COMPLETED IN PAST YEAR FOR COPD 05/10/2025 05/10/2024 Hgb 08/22/2025 08/22/2024, 08/01, 07/15/2024, Additional history exists Phosphate 08/22/2025 08/22/2024, 08/01, 07/15/2024, Additional history exists Diabetes Screening 08/22/2027 08/22/2024, 0 08/21/2024, 07/15/2024, Additional history exists Lipid Panel 07/15/2029 07/15/2024, 05/29/2024 Influenza Vaccine (FLU shot) Completed 04/03/2024 HPV (Gardasil) Vaccine Aged Out No lo nger eligible based on patient's age to complete this topic MENINGOCOCCAL (MENACTRA/MENVEO) Aged Out No longer eligible based on patient's age to complete this topic documented as of this encounter Medical Devices Implanted Type Area Rn Transfer Device Identifier Shelf Expiration Date Model / Serial / Lot Pod Packing Coil Jsoft 45cm - [id number] Implanted:Qty: 1 on 05/10/2024 at [facility] [employer] [id number] 09/30/2031 RBY [id number] / / [id number] Azur Detachable 018 7mmx 24cm - [id number] Implanted:Qty: 1 on 05/10/2024 at [facility] [employer] [id number] 08/30/2028 [id number] / / [id number] Pod Packing Coil Jsoft 45cm - [id number] Implanted:Qty: 1 on 05/10/2024 at [facility] [employer] [id number] 12/26/2031 RBY [id number] / / [id number] Coil Radha Soft [id number] - [id number] Implanted:Qty: 1 on 05/10/2024 at [facility] [employer] [id number] 10/07/2031 RBY [id number] / / [id number] documented as of this encounter Procedures Procedure Name Priority Date/Time Associated Diagnosis Comments ECHO, COMPLETE (2D), TRANS-THORACIC Routine 08/21/2024 12:53 PM EST Heart failure (HCC) documented in this encounter Results * ECHO, COMPLETE (2D), TRANS-THORACIC (08/21/2024 12:53 PM EST) LEFT VENTRICULAR EJECTION FRACTION 55 % [facility] CARD[facility]OLOG[facility] 08/21/2024 12:1 2 PM EST us John Dean DO ECHOCARDIOLOGY Sandy l Result [facility] documented in this encounter Additional Health Concerns Infection Onset Date Last Indicated Resolved Time Respiratory Rule-Out 08/21/2024 08/21/2024 025 2:24 PM EST COVID-19 Rule-Out 08/21/2024 08/21/2024 08/21/2024 2:24 PM EST documented as of this encounter Advance Directives * Full Code (Latest Code Status on File) Date Activated Date Inactivated Comments 08/21/2024 10:21 AM This order re flects the patients wishes and were consensually agreed [...] Care Agent (per Health Care Power of Supervisor [employer] document) Care Teams Drivematic Machine Operator Relationship Specialty Start Date End Date JolynnOctober SHAQ Carter [address] [place] [address] PCP - General Physician Cable Tool Driller 04/10/24 documented as of this encounter
--- OUTSIDE RECORDS SUMMARY | 2024-09-04 08:56 | External Medical Summary | Summary of Care ---
Author Name Unknown Organization [facility] Address [address] [place] [address] Phone [phone] Care Team Providers Care President Celebrity Acquistion Name Role Phone Jolynn Rina Carter PA-C Primary Care Provider [phone] Reason for Visit * Auth/Cert Specialty Diagnoses / Procedures Referred By Rick ruby Referred To Contact Diagnoses GI bleed GI Bleed Scott Abreu MD [address] [facility] [place] [address] Phone: tel: fax: Admissions, [facility] [address] [place] [address] Referral ID Status Reason Start Date Expiration Date Visits Re quested Visits Authorized [id number] Encounter Details Date Type Department Care Team (Latest Contact Info) Description 08/21/2024 1:59 PM EST - 08/21/2024 11:59 PM EST Hospital Encounter Cardiac Studies [facility] [address] [place] [address] Discharge Disposition: Home - Self [...] 08/27/2024 10:20 AM EST Office Visit Hepatology, [facility] [address] [facility] [place] [address] Sari Holder MD [address] [facility] [place] [address] 09/11/2024 10:20 AM EST Office Visit Family Practice [facility] [address] [place] [address] Rina Neil PA-C [address] [place] [address] 01/13/2025 1:45 PM EDT Imaging Radiology [facility] [address] [place] [address] Health Maintenance Due Date Last Done Comments DISCUSS TOBACCO CESSATION (REFER TO SMARTSET #6474) 1972 Depression Screening 1984 Albumin/Creatinine Ratio 1990 [...] this encounter Medical Devices Implanted Type Area Rent And Miscellaneous Remittance Clerk Device Identifier Shelf Expiration Date Model / Serial / Lot Pod Packing Coil Jsoft 45cm - [id number] Implanted:Qty: 1 on 05/10/2024 at [facility] [employer] [id number] 09/30/2031 RBY [id number] / / [id number] Azur Detachable 018 7mmx 24cm - [id number] Implanted:Qty: 1 on 05/10/2024 at [facility] [employer] [id number] 08/30/2028 [id number] / / [id number] Pod Packing Coil Jsoft 45cm - [id number] Implanted:Qty: 1 on 05/10/2024 at [facility] [employer] [id number] 12/26/2031 RBY [id number] / / [id number] Coil Radha Soft [id number] - [id number] Implanted:Qty: 1 on 05/10/2024 at [facility] [employer] [id number] 10/07/2031 RBY [id number] / / [id number] documented as of this encounter Procedures Procedure Name Priority Date/Time Associated Diagnosis Comments ECHO, COMPLETE (2D), TRANS-THORACIC Routine 08/21/2024 2:34 PM EST Heart failure (HCC) documented in this encounter Results * ECHO, COMPLETE (2D), TRANS-THORACIC (08/21/2024 2:34 PM EST) 08/21/2024 2:09 PM EST us Radha Gan DO ECHOCARDIOLOGY Final Resul t [facility] CARDIOLOGY documented in this encounter Additional Health [...] Care Agent (per Health Care Power of Pharmacologist document) Care Teams President Celebrity Acquistion Relationship Specialty Start Date End Date JolynnOctober SHAQ Carter [address] [place], [place] [address] PCP - General Physician Rink Rat 04/10/24 documented as of this encounter
--- OUTSIDE RECORDS SUMMARY | 2024-09-04 08:56 | External Medical Summary ---
Author Name Unknown Address Unknown Organization [id number]:[facility] [address] [facility] [address] Laboratory Report Ordering Provider Test Date Status JOSE G HART 08/21/2024 21:33:51 Final Observation Date Value Abnormality Reference (Units ) Status Sodium, Urine 08/21/2024 21:33:51 <20 (mmol/ L) Final Potassium, Urine 08/21/2024 21:33:51 26.1 (mm ol/L) Final Chloride, Urine 08/21/2024 21:33:51 <20 (mmo l/L) Final Performing Location [facility] [address] [facility] [address]
--- OUTSIDE RECORDS SUMMARY | 2024-09-04 08:56 | External Medical Summary ---
Author Name Unknown Address Unknown Organization K01:[facility] - [address] [place] [address] Laboratory Report Ordering Provider Test Date Status CHEKO FRANCOIS 08/22/2024 06:01:00 Final Observation Date Value Abnormality Reference (Units ) Status Phosphate 08/22/2024 06:01:00 4.0 2.5-4.8 (m g/dL) Final Performing Location [facility] - [address] [place] [address]
--- OUTSIDE RECORDS SUMMARY | 2024-09-04 08:56 | External Medical Summary ---
Author Name Unknown Address Unknown Organization [id number]:LABORATORY [facility] - [address] [place] [address] Laboratory Report Ordering Provider Test Date Status CHEKO FRANCOIS 08/24/2024 07:58:00 Final Warfarin Therapy
INR: 2 .0-3.0 conventional anticoagulation
INR: 2.5- 3.5 high intensity anticoagulation Observation Date Value Abnormality Reference (Units ) Status PT 08/24/2024 07:58:00 17.5 Above high normal 11 .6-15.2 (seconds) Final INR 08/24/2024 07:58:00 1.4 Above high normal 0. 8-1.2 Final Performing Location LABORATORY [facility] - [address] [place] [address]
--- OUTSIDE RECORDS SUMMARY | 2024-09-04 08:56 | External Medical Summary ---
Author Name Unknown Address Unknown Organization : Laboratory Report Ordering Provider Test Date Status CHEKO FRANCOIS 08/21/2024 18:22:00 Final Observation Date Value Abnormality Reference (Units ) Status PETH 16:0/18:1 (POPETH) 08/21/2024 18:22:00 NEGATIVE <20 (ng/mL) Final PETH 16:0/18:2 (PLPETH) 08/21/2024 18:22:00 NEGATIVE <20 (ng/mL) Final PETH COMMENTS 08/21/2024 18:22:00 SEE BELOW Final See LDT Notes
Notes and Comments
This drug testing is for medical treatment only.
Analysis was performed as non-forensic testing and
these results should be used only by healthcare
providers to render diagnosis or treatment, or to
monitor progress of medical conditions.
LDT Notes:
These tests were developed and their analytical
performance characteristics have been determined
by [facility]. They have not been cleared
or approved by the FDA. These assays have been
validated pursuant to the CLIA regulations and are
used for clinical purposes.
Healthcare Providers needing Interpretation
assistance, please contact us at [phone]
( )M-F, 8am to 10pm EST

Test Performed at:
[facility]
[address] [facility] [place] [address]
Anil Wilburn M.D., Ph.D.,Director of Laboratories Performing Location
--- OUTSIDE RECORDS SUMMARY | 2024-09-04 08:56 | External Medical Summary ---
Author Name Unknown Address Unknown Organization : Laboratory Report Ordering Provider Test Date Status JOSE G HART 08/22/2024 06:01:00 Final Observation Date Value Abnormality Reference (Units ) Status PETH 16:0/18:1 (POPETH) 08/22/2024 06:01:00 NEGATIVE <20 (ng/mL) Final PETH 16:0/18:2 (PLPETH) 08/22/2024 06:01:00 NEGATIVE <20 (ng/mL) Final PETH COMMENTS 08/22/2024 06:01:00 SEE BELOW Final See LDT Notes
Notes and Comments
This drug testing is for medical treatment only.
Analysis was performed as non-forensic testing and
these results should be used only by healthcare
providers to render diagnosis or treatment, or to
monitor progress of medical conditions.
LDT Notes:
These tests were developed and their analytical
performance characteristics have been determined
by [facility]. They have not been cleared
or approved by the FDA. These assays have been
validated pursuant to the CLIA regulations and are
used for clinical purposes.
Healthcare Providers needing Interpretation
assistance, please contact us at [phone]
( )M-F, 8am to 10pm EST

Test Performed at:
[facility]
[address] [facility]
[place] [address]
Anil Wilburn M.D., Ph.D.,Director of Laboratories Performing Location
--- OUTSIDE RECORDS SUMMARY | 2024-09-04 08:56 | External Medical Summary ---
Author Name Unknown Address Unknown Organization K01:[facility] [place] [address] [place] [address] Laboratory Report Ordering Provider Test Date Status CHEKO FRANCOIS 08/23/2024 07:18:00 Final Warfarin Therapy
INR: 2 .0-3.0 conventional anticoagulation
INR: 2.5- 3.5 high intensity anticoagulation Observation Date Value Abnormality Reference (Units ) Status PT 08/23/2024 07:18:00 17.6 Above high normal 11 .6-15.2 (seconds) Final INR 08/23/2024 07:18:00 1.4 Above high normal 0. 8-1.2 Final Performing Location [facility] [place] [address] [place] [address]
--- OUTSIDE RECORDS SUMMARY | 2024-09-04 08:56 | External Medical Summary | Summary of Care ---
Author Name Unknown Organization [facility] Address [address] [place] [address] Phone [phone] Care Team Providers Care Nutrition Counselor Name Role Phone Rina Neil PA-C Primary Care Provider [phone] Encounter Details Date Type Department Care Team (Late st Contact Info) Description 08/21/2024 Orders Only Hepatology, [place] [address] [place] [address] Sari Holder MD [address] [place] [address] Allergies Active Allergy Reactions Criticality Noted Date Comments Penicillins Unknown 08/09/2023 documented as of this encounter (statuses as of 08/21/2024) Medications Pantoprazole Sodium 40 MG Oral Tablet [...] as of this encounter (statuses as of 08/21/2024) Active Problems Problem Noted Date Diagnosed Date [...] as of this encounter (statuses as of 08/21/2024) Resolved Problems Problem Noted Date Diagnosed Date Resolved Date Upper GI bleed 05/09/2024 05/12/2024 documented as of this encounter (statuses as of 08/21/2024) Immunizations Name Administration Dates Next Due Seasonal [...] Hepatology, [facility] [address] [place] [address] Sari Holder MD [address] [place] [address] 09/11/2024 10:20 AM EST [facility] [address] [place] [address] Rina Neil PA-C [address] [place] [address] 01/13/2025 1:45 PM EDT Imaging Radiology [facility] [address] [place] [phone] Health Maintenance Due Date Last Done Comments DISCUSS TOBACCO CESSATION (REFER TO SMARTSET #9469) 1972 Depression Screening 1984 Albumin/Creatinine Ratio 1990 [...] this encounter Medical Devices Implanted Type Area Forestry Fire Aide Device Identifier Shelf Expiration Date Model / Serial / Lot Pod Packing Coil Jsoft 45cm - [id number] Implanted:Qty: 1 on 05/10/2024 at [employer] [facility] [employer] [id number] 09/30/2031 RBY PODJ45 / / [id number] Azur Detachable 018 7mmx 24cm - [id number] Implanted:Qty: 1 on 05/10/2024 at [facility] [employer] [facility] [id number] 08/30/2028 [id number] / / [id number] Pod Packing Coil Jsoft 45cm - [id number] Implanted:Qty: 1 on 05/10/2024 at [facility] [employer] [id number] 12/26/2031 RBY [id number] / / [id number] Coil Radha Soft 6xpk05hr - [id number] Implanted:Qty: 1 on 05/10/2024 at [facility] [employer] [id number] 10/07/2031 RBY [id number] / / [id number] documented as of this encounter Advance Directives [...] Care Agent (per Health Care Power of Cash Applications Clerk document) Care Teams Nutrition Counselor Relationship Specialty Start Date End Date JolynnOctober SHAQ Carter [address] [place] [address] PCP - General Physician Elevator Repairer Helper 04/10/24 documented as of this encounter
--- OUTSIDE RECORDS SUMMARY | 2024-09-04 08:56 | External Medical Summary ---
Author Name Unknown Address Unknown Organization K01:LABORATORY [facility] - [address] [facility] [address] [facility] [address] Laboratory Report Ordering Provider Test Date Status JOSE G HART 08/22/2024 14:31:09 Final Some reference ranges and ot her method performance specifications have not been established for this fluid. The test results must be integrated into the clinical context for interpretation. Observation Date Value Abnormality Reference (Units ) Status SYNC TOTAL NUCLEATED CELLS FLUID 08/22/2024 14:31:09 38 (cells/uL) Final Neutrophils/100 leukocytes in Body fluid by Manual count 08/22/2024 14:31:09 13 (%) Final Lymphocytes, Body Fluid 08/22/2024 14:31:09 61 (%) Final Monocytes/100 leukocytes in Body fluid by Manual count 08/22/2024 14:31:09 24 (%) Final Eosinophils/100 leukocytes in Body fluid by Manual count 08/22/2024 14:31:09 2 (%) Final Basos, Body Fluid 08/22/2024 14:31:09 2 (%) Final SEGMENTED NEUTROPHILS (1000/UG) IN BODY FLUID ABS 08/22/2024 14:31:09 4.94 (cells/uL) Final LYMPHOCYTES (1000/UG) IN BODY FLUID ABS 08/22/2024 14:31:09 23.18 (cells/uL) Final MONOCYTES(1000/UG) IN BODY FLUID ABS 08/22/2024 14:31:09 9.12 (cells/uL) Final EOSINOPHILS (1000/UG) IN BODY FLUID ABS 08/22/2024 14:31:09 0.76 (cells/uL) Final BASOPHILS (1000/UG) IN BODY FLUID ABS 08/22/2024 14:31:09 0.76 (cells/uL) Final Performing Location [facility] - [address] [facility] [address]
--- OUTSIDE RECORDS SUMMARY | 2024-09-04 08:56 | External Medical Summary ---
Author Name Unknown Address Unknown Organization K01:[facility] [address] [facility] [address] Laboratory Report Ordering Provider Test Date Status CHEKO FRANCOIS 08/23/2024 07:19:00 Final Observation Date Value Abnormality Reference (Units ) Status WBC, Total 08/23/2024 07:19:00 7.69 4.00-10.80 (K/uL) Final RBC 08/23/2024 07:19:00 2.44 4.50-5.25 (M/uL) Final Hemoglobin 08/23/2024 07:19:00 7.0 Below low normal 14.0-16.8 (g/dL) Final HCT 08/23/2024 07:19:00 22.8 Below low normal 40.0-48.4 (%) Final MCV 08/23/2024 07:19:00 93.4 82.0-99.5 (fL) Final MCH 08/23/2024 07:19:00 28.7 27.0-34.0 (pg) Final MCHC 08/23/2024 07:19:00 30.7 32.0-36.0 (g/dL) Final RDW 08/23/2024 07:19:00 17.2 11.5-15.5 (%) Final Platelets 08/23/2024 07:19:00 160 140-400 (K/uL) Final MPV 08/23/2024 07:19:00 9.4 6.6-11.1 (fL) Final Nucleated erythrocytes/100 leukocytes [Ratio] in Blood by Automated count 08/23/2024 07:19:00 0 <=0 (/100 WBCs) Final Performing Location [facility]ORY [facility] [address] [facility] [address]
--- OUTSIDE RECORDS SUMMARY | 2024-09-04 08:56 | External Medical Summary ---
Author Name Unknown Address Unknown Organization K01:[facility] - [address] [place] [address] Laboratory Report Ordering Provider Test Date Status CHEKO FRANCOIS 08/24/2024 07:58:00 Final Observation Date Value Abnormality Reference (Units ) Status Phosphate 08/24/2024 07:58:00 4.0 2.5-4.8 (m g/dL) Final Performing Location [facility] - [address] [place] [address]
--- OUTSIDE RECORDS SUMMARY | 2024-09-04 08:56 | External Medical Summary ---
Author Name Unknown Address Unknown Organization K01:LABORATORY [facility] - [address] [place] [address] Laboratory Report Ordering Provider Test Date Status CHEKO FRANCOIS 08/22/2024 06:01:00 Final Observation Date Value Abnormality Reference (Units ) Status Magnesium 08/22/2024 06:01:00 2.8 Above high normal 1. 5-2.6 (mg/dL) Final Performing Location [facility] - [address] [place] [address]
--- OUTSIDE RECORDS SUMMARY | 2024-09-04 08:56 | External Medical Summary ---
Author Name Unknown Address Unknown Organization K01:LABORATORY [facility] [place] - [address] [place] [address] Laboratory Report Ordering Provider Test Date Status CHEKO FRANCOIS 08/22/2024 06:01:00 Final Warfarin Therapy
INR: 2 .0-3.0 conventional anticoagulation
INR: 2.5- 3.5 high intensity anticoagulation Observation Date Value Abnormality Reference (Units ) Status PT 08/22/2024 06:01:00 16.9 Above high normal 11 .6-15.2 (seconds) Final INR 08/22/2024 06:01:00 1.4 Above high normal 0. 8-1.2 Final Performing Location LABORATORY [facility] - [address] [place] [address]
--- OUTSIDE RECORDS SUMMARY | 2024-09-04 08:56 | External Medical Summary ---
Author Name Unknown Address Unknown Organization [id number]:LAB[place]ATORY [facility] [place] [address] [facility] [address] Laboratory Report Ordering Provider Test Date Status JOSE G HART 08/22/2024 14:31:09 Final Observation Date Value Abnormality Reference (Units ) Status Albumin, Body Fluid 08/22/2024 14:31:09 <1.0 (g/dL) Final The reference interval(s) an d other method performance specifications may not be available for this body fluid. Comparison of this result with the concentration in the blood, serum, or plasma is recommended. The test result must be integrated into the clinical context for interpretation.

Please refer to test catalog (https://www.[employer]Me.com/catalog/body_fluids.html) for additional interpretive information.

This test was developed and its performance characteristics determined by [employer]. It has not been cleared or approved by the US Food and Drug Administration. Performing Location LABORATORY [facility] [place] [address] [facility] [address]
--- OUTSIDE RECORDS SUMMARY | 2024-09-04 08:56 | External Medical Summary ---
Author Name Unknown Address Unknown Organization [id number]:LABORATORY [facility] [place] - [address] [place] [address] Laboratory Report Ordering Provider Test Date Status NINALISAJOSE G 08/22/2024 14:31:09 Final Observation Date Value Abnormality Reference (Units) Status Bacteria identified in Specimen by Culture 08/22/2024 14:31:09 No growth Final Gram Stain 08/22/2024 14:31:09 No polymorphonuclear leukocytes seen Final Gram Stain 08/22/2024 14:31:09 No organisms seen Final Test: Culture, Body Fluid, A erobic
Specimen Source: Peritoneal Fluid
Specimen Type: Body Fluid
Specimen Date: 08/22/2024 1431
Result Date: 08/25/2024 0931
Result Status: Final result
Resulting Lab: LABORATORY [facility] [place]
[address]
[place] [address]

CULTURE

No growth

STAIN

No polymorphonuclear leukocytes seen

No organisms seen

null Performing Location LABORATORY [facility] [place] - [address] [place] [address]
--- OUTSIDE RECORDS SUMMARY | 2024-09-04 08:56 | External Medical Summary ---
Author Name Unknown Address Unknown Organization [id number]:[place] [facility] [place] [facility] [address] [facility] [address] Laboratory Report Ordering Provider Test Date Status JOSE G HART 08/22/2024 14:31:09 Final Observation Date Value Abnormality Reference (Units ) Status Protein, Body Fluid 08/22/2024 14:31:09 1.2 (g/dL) Final The reference interval(s) an d other method performance specifications may not be available for this body fluid. Comparison of this result with the concentration in the blood, serum, or plasma is recommended. The test result must be integrated into the clinical context for interpretation.

Please refer to test catalog (https://www.[employer].com/catalog/body_fluids.html) for additional interpretive information.

This test was developed and its performance characteristics determined by [employer]. It has not been cleared or approved by the US Food and Drug Administration. Performing Location [place] [facility] [place] [address] [facility] [address]
--- OUTSIDE RECORDS SUMMARY | 2024-09-04 08:56 | External Medical Summary ---
Author Name Unknown Address Unknown Organization K01:LABORATORY [facility] [place] - [facility] [address] [facility] [address] Laboratory Report Ordering Provider Test Date Status CHEKO FRANCOIS 08/22/2024 06:01:00 Final Observation Date Value Abnormality Reference (Units ) Status WBC, Total 08/22/2024 06:01:00 8.46 4.00-10.80 (K/uL) Final RBC 08/22/2024 06:01:00 2.18 4.50-5.25 (M/uL) Final Hemoglobin 08/22/2024 06:01:00 6.3 Below low normal 14.0-16.8 (g/dL) Final HCT 08/22/2024 06:01:00 20.0 Below low normal 40.0-48.4 (%) Final MCV 08/22/2024 06:01:00 91.7 82.0-99.5 (fL) Final MCH 08/22/2024 06:01:00 28.9 27.0-34.0 (pg) Final MCHC 08/22/2024 06:01:00 31.5 32.0-36.0 (g/dL) Final RDW 08/22/2024 06:01:00 17.2 11.5-15.5 (%) Final Platelets 08/22/2024 06:01:00 181 140-400 (K/uL) Final MPV 08/22/2024 06:01:00 9.1 6.6-11.1 (fL) Final Nucleated erythrocytes/100 leukocytes [Ratio] in Blood by Automated count 08/22/2024 06:01:00 0 <=0 (/100 WBCs) Final Performing Location LABORATORY [facility] [place] - [address] [facility] [address]
--- OUTSIDE RECORDS SUMMARY | 2024-09-04 08:56 | External Medical Summary ---
Author Name Unknown Address Unknown Organization K01:LABORATORY [facility] [place] - [address] [place] [address] Laboratory Report Ordering Provider Test Date Status CHEKO FRANCOIS 08/22/2024 06:01:00 Final Observation Date Value Abnormality Reference (Units ) Status BUN 08/22/2024 06:01:00 59 Above high normal 6-20 (mg/dL) Final Creatinine 08/22/2024 06:01:00 2.5 Above high normal 0.6-1.2 (mg/dL) Final Glomerular filtration rate/1.73 sq M.predicted [Volume Rate/Area] in Serum, Plasma or Blood by Creatinine-based formula (CKD-EPI) 08/22/2024 06:01:00 31 Below low normal >=60 (mL/min) Final eGFR is calculated based on the CKD-EPI 2020 equation. Sodium 08/22/2024 06:01:00 124 Below low normal 135 -146 (mmol/L) Final Potassium 08/22/2024 06:01:00 5.6 Above high normal 3. 5-5.1 (mmol/L) Final Cl 08/22/2024 06:01:00 98 98-107 (mm ol/L) Final CO2 08/22/2024 06:01:00 18 Below low normal 22- 32 (mmol/L) Final Anion gap 08/22/2024 06:01:00 8 7-15 (mmol /L) Final Glucose 08/22/2024 06:01:00 105 70-120 (mg /dL) Final Albumin 08/22/2024 06:01:00 2.6 Below low normal 3.8 -5.0 (g/dL) Final AST (Aspartate aminotransferase) 08/22/2024 06:01:00 20 10-50 (U/L) Fin al Alk Phos 08/22/2024 06:01:00 59 35-130 (U/ L) Final Bilirubin, Total 08/22/2024 06:01:00 1.7 Above high no rmal <=1.2 (mg/dL) Final Calcium 08/22/2024 06:01:00 7.5 Below low normal 8.4 -10.2 (mg/dL) Final Protein 08/22/2024 06:01:00 5.1 Below low normal 6.0 -8.3 (g/dL) Final ALT (Alanine aminotransferase) 08/22/2024 06:01:00 13 10-50 (U/L) Yohan thomas Performing Location LABORATORY [facility] [place] - [address] [facility] [address]
--- OUTSIDE RECORDS SUMMARY | 2024-09-04 08:56 | External Medical Summary ---
Author Name Unknown Address Unknown Organization K01:LABORATORY [facility] - [address] [place] [address] Laboratory Report Ordering Provider Test Date Status CHEKO FRANCOIS 08/23/2024 07:19:00 Final Observation Date Value Abnormality Reference (Units ) Status Phosphate 08/23/2024 07:19:00 3.9 2.5-4.8 (m g/dL) Final Performing Location LABORATORY [facility] - [address] [place] [address]
--- OUTSIDE RECORDS SUMMARY | 2024-09-04 08:56 | External Medical Summary ---
Author Name Unknown Address Unknown Organization K01:LABORATORY [place] [address] [facility] [address] Laboratory Report Ordering Provider Test Date Status JOSE G HART 08/22/2024 14:31:09 Final Some reference ranges and ot her method performance specifications have not been established for this fluid. The test results must be integrated into the clinical context for interpretation. Observation Date Value Abnormality Reference (Units ) Status Clarity of Body fluid 08/22/2024 14:31:09 Cloudy Abnormal Clear Final Color of Body fluid 08/22/2024 14:31:09 Yellow Straw, Yellow, Colorless Final Nucleated cells [#/volume] in Body fluid by Automated count 08/22/2024 14:31:09 38 (cells/uL) Final Erythrocytes [#/volume] in Body fluid by Automated count 08/22/2024 14:31:09 873 (cells/uL) Final Performing Location [place] [facility] [place] [facility] [address] [facility] [address]
--- OUTSIDE RECORDS SUMMARY | 2024-09-04 08:56 | External Medical Summary ---
Author Name Unknown Address Unknown Organization K01:LABORATORY [facility] - [address] [place] [address] Laboratory Report Ordering Provider Test Date Status CHEKO FRANCOIS 08/23/2024 07:19:00 Final Observation Date Value Abnormality Reference (Units ) Status Magnesium 08/23/2024 07:19:00 2.7 Above high normal 1. 5-2.6 (mg/dL) Final Performing Location LABORATORY [facility] - [address] [place] [address]
--- OUTSIDE RECORDS SUMMARY | 2024-09-04 08:57 | External Medical Summary ---
Author Name Unknown Address Unknown Organization K01:LABORATORY [facility] - [address] [place] [address] Laboratory Report Ordering Provider Test Date Status CHEKO FRANCOIS 08/21/2024 10:57:00 Final Observation Date Value Abnormality Reference (Units ) Status LDH 08/21/2024 10:57:00 153 <=250 (U/L ) Final Performing Location LABORATORY [facility] - [address] [place] [address]
--- OUTSIDE RECORDS SUMMARY | 2024-09-04 08:57 | External Medical Summary ---
Author Name Unknown Address Unknown Organization K01:LABORATORY [facility] - [address] [place] [address] Laboratory Report Ordering Provider Test Date Status ALEIDA MARTELRI 08/21/2024 10:57:00 Final Observation Date Value Abnormality Reference (Units ) Status Magnesium 08/21/2024 10:57:00 2.9 Above high normal 1. 5-2.6 (mg/dL) Final Performing Location LABORATORY [facility] - [address] [place] [address]
--- OUTSIDE RECORDS SUMMARY | 2024-09-04 08:57 | External Medical Summary ---
Author Name Unknown Address Unknown Organization K01:[place]ATORY [facility] [place] [address] [facility] Laboratory Report Ordering Provider Test Date Status CHEKO FRANCOIS 08/21/2024 12:10:00 Final Observation Date Value Abnormality Reference (Units ) Status Bacteria identified in Specimen by Culture 08/21/2024 12:10:00 No growth Final Test: Culture, Blood (Site 2)
Specimen Source: Blood, Venous
Specimen Type: Blood
Specimen Date: 08/21/2024 1210
Result Date: 08/26/2024 1301
Result Status: Final result
Resulting Lab: LABORATORY [facility] [place]
[address]
[place] [address]

CULTURE

No growth

null Performing Location [facility] [facility] [place] [facility] [address] [facility] [address]
--- OUTSIDE RECORDS SUMMARY | 2024-09-04 08:57 | External Medical Summary ---
Author Name Unknown Address Unknown Organization K01:LABORATORY [facility] [place] - [address] [address] [place] [address] Laboratory Report Ordering Provider Test Date Status HAZEL MARTEL 08/21/2024 10:57:00 Final Observation Date Value Abnormality Reference (Units ) Status BUN 08/21/2024 10:57:00 65 Above high normal 6-20 (mg/dL) Final Creatinine 08/21/2024 10:57:00 2.6 Above high normal 0.6-1.2 (mg/dL) Final Glomerular filtration rate/1.73 sq M.predicted [Volume Rate/Area] in Serum, Plasma or Blood by Creatinine-based formula (CKD-EPI) 08/21/2024 10:57:00 28 Below low normal >=60 (mL/min) Final eGFR is calculated based on the CKD-EPI 2020 equation. Sodium 08/21/2024 10:57:00 127 Below low normal 135 -146 (mmol/L) Final Potassium 08/21/2024 10:57:00 5.9 Above high normal 3. 5-5.1 (mmol/L) Final Cl 08/21/2024 10:57:00 99 98-107 (mm ol/L) Final CO2 08/21/2024 10:57:00 20 Below low normal 22- 32 (mmol/L) Final Anion gap 08/21/2024 10:57:00 8 7-15 (mmol /L) Final Glucose 08/21/2024 10:57:00 102 70-120 (mg /dL) Final Albumin 08/21/2024 10:57:00 2.8 Below low normal 3.8 -5.0 (g/dL) Final AST (Aspartate aminotransferase) 08/21/2024 10:57:00 22 10-50 (U/L) Fin al Alk Phos 08/21/2024 10:57:00 67 35-130 (U/ L) Final Bilirubin, Total 08/21/2024 10:57:00 3.5 Above high no rmal <=1.2 (mg/dL) Final Calcium 08/21/2024 10:57:00 8.1 Below low normal 8.4 -10.2 (mg/dL) Final Protein 08/21/2024 10:57:00 5.5 Below low normal 6.0 -8.3 (g/dL) Final ALT (Alanine aminotransferase) 08/21/2024 10:57:00 14 10-50 (U/L) Yohan thomas Performing Location LABORATORY [facility] [place] - [address] [facility] [address]
--- OUTSIDE RECORDS SUMMARY | 2024-09-04 08:57 | External Medical Summary ---
Author Name Unknown Address Unknown Organization K01:LAB[place]ORY [facility] [place] [address] [place] [address] Laboratory Report Ordering Provider Test Date Status CHEKO FRANCOIS 08/21/2024 10:32:49 Final Observation Date Value Abnormality Reference (Units ) Status Methicillin resistant Staphylococcus aureus (MRSA) DNA [Presence] in Nose by TALHA with probe detection 08/21/2024 10:32:49 Negative Negative Final No Methicillin resistant Sta phylococcus aureus detected by PCR (amplified probe). Performing Location LABORATORY [facility] [place] - [address] [place] [address]
--- OUTSIDE RECORDS SUMMARY | 2024-09-04 08:57 | External Medical Summary ---
Author Name Unknown Address Unknown Organization K01:LAB[facility]ORY [facility] [place] [address] [place] [address] Laboratory Report Ordering Provider Test Date Status CHEKO FRANCOIS 08/21/2024 13:07:43 Final ADMITTED patient Observation Date Value Abnormality Reference (Units ) Status Adenovirus DNA [Presence] in Nasopharynx by TALHA with non-probe detection 08/21/2024 13:07:43 Negative Negative Final Human coronavirus 229E RNA [Presence] in Nasopharynx by TALHA with non-probe detection 08/21/2024 13:07:43 Negative Negative Final Human coronavirus HKU1 RNA [Presence] in Nasopharynx by TALHA with non-probe detection 08/21/2024 13:07:43 Negative Negative Final Human coronavirus NL63 RNA [Presence] in Nasopharynx by TALHA with non-probe detection 08/21/2024 13:07:43 Negative Negative Final Human coronavirus OC43 RNA [Presence] in Nasopharynx by TALHA with non-probe detection 08/21/2024 13:07:43 Negative Negative Final SARS-CoV-2 (COVID-19) RNA [Presence] in Nasopharynx by TALHA with non-probe detection 08/21/2024 13:07:43 Negative Negative Final Human metapneumovirus RNA [Presence] in Nasopharynx by TALHA with non-probe detection 08/21/2024 13:07:43 Negative Negative Final Rhinovirus+Enterovirus RNA [Presence] in Nasopharynx by TALHA with non-probe detection 08/21/2024 13:07:43 Negative Negative Final Influenza virus A RNA [Presence] in Nasopharynx by TALHA with non-probe detection 08/21/2024 13:07:43 Negative Negative Final Influenza virus B RNA [Presence] in Nasopharynx by TALHA with non-probe detection 08/21/2024 13:07:43 Negative Negative Final Parainfluenza virus 1 RNA [Presence] in Nasopharynx by TALHA with non-probe detection 08/21/2024 13:07:43 Negative Negative Final Parainfluenza virus 2 RNA [Presence] in Nasopharynx by TALHA with non-probe detection 08/21/2024 13:07:43 Negative Negative Final Parainfluenza virus 3 RNA [Presence] in Nasopharynx by TALHA with non-probe detection 08/21/2024 13:07:43 Negative Negative Final Parainfluenza virus 4 RNA [Presence] in Nasopharynx by TALHA with non-probe detection 08/21/2024 13:07:43 Negative Negative Final Respiratory syncytial virus RNA [Presence] in Nasopharynx by TALHA with non-probe detection 08/21/2024 13:07:43 Negative Negative Final Bordetella pertussis.pertussis toxin promoter region [Presence] in Nasopharynx by TALHA with non-probe detection 08/21/2024 13:07:43 Negative Negative Final Chlamydophila pneumoniae DNA [Presence] in Nasopharynx by TALHA with non-probe detection 08/21/2024 13:07:43 Negative Negative Final Mycoplasma pneumoniae DNA [Presence] in Nasopharynx by TALHA with non-probe detection 08/21/2024 13:07:43 Negative Negative Final Bordetella parapertussis [id number] DNA [Presence] in Nasopharynx by TALHA with non-probe detection 08/21/2024 13:07:43 Negative Negative Final The primers that detect Rhin ovirus may cross react with some Enterorviruses. The validation of bronchial specimens, tracheal aspirates, and throats for this assay was developed and performance characteristics determined by [employer]. The validation of alternate specimen types has not been cleared or approved by the U.S. Food and Drug Administration (FDA). It has been determined that such clearance or approval is not necessary. [facility] LAB[facility]ATORY [facility] [place] [address] [facility] [address]
--- OUTSIDE RECORDS SUMMARY | 2024-09-04 08:57 | External Medical Summary ---
Author Name Unknown Address Unknown Organization K01:LABORATORY [facility] - [address] [place] [address] Laboratory Report Ordering Provider Test Date Status ALEIDA MARTELRI 08/21/2024 10:57:00 Final Observation Date Value Abnormality Reference (Units ) Status Phosphate 08/21/2024 10:57:00 4.5 2.5-4.8 (m g/dL) Final Performing Location LAB[facility]ORY [facility] [address] [facility] [address]
--- OUTSIDE RECORDS SUMMARY | 2024-09-04 08:57 | External Medical Summary ---
Author Name Unknown Address Unknown Organization K01:[place]ORY [facility] [place] [address] [place] [address] Laboratory Report Ordering Provider Test Date Status CHEOK FRANCOIS 08/21/2024 10:57:00 Final Warfarin Therapy
INR: 2 .0-3.0 conventional anticoagulation
INR: 2.5- 3.5 high intensity anticoagulation Observation Date Value Abnormality Reference (Units ) Status PT 08/21/2024 10:57:00 16.7 Above high normal 11 .6-15.2 (seconds) Final INR 08/21/2024 10:57:00 1.3 Above high normal 0. 8-1.2 Final Performing Location LAB[facility]ORY [facility] [place] [address] [place] [address]
--- OUTSIDE RECORDS SUMMARY | 2024-09-04 08:57 | External Medical Summary | Summary of Care ---
Author Name Unknown Organization [facility] Address [address] [place] [address] Phone [phone] Care Team Providers Care Fruit Harvester Name Role Phone Rina Neil PA-C Primary Care Provider [phone] Reason for Visit * Reason Onset Date Comments Advice 05/21/2024 Encounter Details Date Type Department Care Team (Late st Contact Info) Description 05/21/2024 Telephone Family Practice [facility] [address] [facility] [place] [address] Rina Neil PA-C [address] [facility] [place] [address] Advice Allergies Active Allergy Reactions Criticality Noted Date Comments Penicillins Unknown 08/09/2023 documented as of this encounter (statuses as of 08/20/2024) Medications Pantoprazole Sodium 40 MG Oral Tablet [...] as of this encounter (statuses as of 08/20/2024) Active Problems Problem Noted Date Diagnosed Date [...] as of this encounter (statuses as of 08/20/2024) Resolved Problems Problem Noted Date Diagnosed Date Resolved Date Upper GI bleed 05/09/2024 05/12/2024 documented as of this encounter (statuses as of 08/20/2024) Immunizations Name Administration Dates Next Due Seasonal [...] Assessment Author No 05/09/2024 7:00 PM SOMMERT Keihsa Traylor RN * Do you have serious [...] 7:00 PM SOMMERT Keisha Traylor RN documented as of this encounter Mental Status * Because of a physical, mental, or emotional condition, do you have serious difficulty concentrating, remembering, or making decisions? (5 years old or older) Answer Entry Date Author No 05/09/2024 7:00 PM Keisha Long RN documented in this encounter Miscellaneous Notes * Telephone Encounter - Kristopher Diaz OSA - 05/21/2024 11:38 AM EDT Patient is calling and stated that he would need Perry Bearden to sign off on appointments. He wants a by weekly appointment. Please call this patient back to discuss this. documented in this encounter Plan of Treatment Upcoming Encounters Date Type Department Care Team (Late st Contact Info) Description 08/27/2024 10:20 AM EST Office Visit Hepatology, [facility] [address] [address] Sari Holder MD [address] [address] 09/11/2024 10:20 AM EST Office Visit Family Practice [facility] [address] [facility] [place] [address] Rina Neil PA-C [address] [place] [address] 01/13/2025 1:45 PM EDT Imaging Radiology [facility] [address] [id number] Health Maintenance Due Date Last Done Comments DISCUSS TOBACCO CESSATION (REFER TO SMARTSET #3294) 1972 Depression Screening 1984 Albumin/Creatinine Ratio 1990 [...] this encounter Medical Devices Implanted Type Area Outbound Telemarketing Representative Device Identifier Shelf Expiration Date Model / Serial / Lot Pod Packing Coil Jsoft 45cm - [id number] Implanted:Qty: 1 on 05/10/2024 at [facility] [employer] [id number] 09/30/2031 RBY [id number] / / [id number] [employer] Detachable 018 7mmx 24cm - [id number] Implanted:Qty: 1 on 05/10/2024 at [facility] [employer] [id number] 08/30/2028 [id number] / / [id number] Pod Packing Coil [employer] 45cm - [id number] Implanted:Qty: 1 on 05/10/2024 at [facility] [employer] [id number] 12/26/2031 RBY [id number] / / [id number] Coil [employer] 9ocs68nm - [id number] Implanted:Qty: 1 on 05/10/2024 at [facility] [employer] [id number] 10/07/2031 RBY [id number] / / [id number] documented as of this encounter Advance Directives [...] Care Agent (per Health Care Power of Weather Anchor document) Care Teams Fruit Harvester Relationship Specialty Start Date End Date Jolynn October Raul, PARachidC [address] [place] [address] PCP - General Physician Contract Writer 04/10/24 documented as of this encounter
--- OUTSIDE RECORDS SUMMARY | 2024-09-04 08:57 | External Medical Summary ---
Author Name Unknown Address Unknown Organization K01:[place] [facility] [place] [facility] [address] [facility] [address] Laboratory Report Ordering Provider Test Date Status HAZEL MARTEL 08/21/2024 10:57:00 Final Observation Date Value Abnormality Reference (Units ) Status WBC, Total 08/21/2024 10:57:00 8.97 4.00-10.80 (K/uL) Final RBC 08/21/2024 10:57:00 2.30 4.50-5.25 (M/uL) Final Hemoglobin 08/21/2024 10:57:00 6.4 Below low normal 14.0-16.8 (g/dL) Final HCT 08/21/2024 10:57:00 21.0 Below low normal 40.0-48.4 (%) Final MCV 08/21/2024 10:57:00 91.3 82.0-99.5 (fL) Final MCH 08/21/2024 10:57:00 27.8 27.0-34.0 (pg) Final MCHC 08/21/2024 10:57:00 30.5 32.0-36.0 (g/dL) Final RDW 08/21/2024 10:57:00 17.3 11.5-15.5 (%) Final Platelets 08/21/2024 10:57:00 205 140-400 (K/uL) Final MPV 08/21/2024 10:57:00 9.3 6.6-11.1 (fL) Final Nucleated erythrocytes/100 leukocytes [Ratio] in Blood by Automated count 08/21/2024 10:57:00 0 <=0 (/100 WBCs) Final Performing Location [place] [facility] [place] [address] [facility] [address]
--- OUTSIDE RECORDS SUMMARY | 2024-09-04 08:57 | External Medical Summary ---
Author Name Unknown Address Unknown Organization K01:[place]ORY [facility] [place] [address] [place] [address] Laboratory Report Ordering Provider Test Date Status CHEKO FRANCOIS 08/21/2024 10:57:00 Final Observation Date Value Abnormality Reference (Units ) Status Haptoglobin 08/21/2024 10:57:00 116 30-200 ( mg/dL) Final Performing Location LAB[facility]ORY [facility] - [address] [place] [address]
--- OUTSIDE RECORDS SUMMARY | 2024-09-04 08:57 | External Medical Summary ---
Author Name Unknown Address Unknown Organization [id number]:[facility] [place] [address] [facility] Laboratory Report Ordering Provider Test Date Status CHEKO FRANCOIS 08/21/2024 12:05:00 Final Observation Date Value Abnormality Reference (Units ) Status Bacteria identified in Specimen by Culture 08/21/2024 12:05:00 No growth Final Test: Culture, Blood
Sp ecimen Source: Blood, Venous
Specimen Type: Blood
Specimen Date: 08/21/2024 1205
Result Date: 08/26/2024 1301
Result Status: Final result
Resulting Lab: [facility]
[address]
[place] [address]

CULTURE

No growth

null Performing Location [facility] [place] [address] [place] [address]
--- OUTSIDE RECORDS SUMMARY | 2024-09-04 08:57 | External Medical Summary ---
Author Name Unknown Address Unknown Organization [id number][place] [place] [address] [facility] [address] Laboratory Report Ordering Provider Test Date Status CHEKO FRANCOIS 08/21/2024 12:10:00 Final Q2H until potassium less arelis n 5.5mEq/L Observation Date Value Abnormality Reference (Units ) Status Potassium, Whole Blood 08/21/2024 12:10:00 5.9 Above high normal 3.5-5.1 (mmol/L) Final Performing Location [facility] [place] [address] [facility] [address]
--- OUTSIDE RECORDS SUMMARY | 2024-09-04 08:57 | External Medical Summary ---
Author Name Unknown Address Unknown Organization [id number]:[facility] [place] [address] [place] [address] Laboratory Report Ordering Provider Test Date Status CHEKO FRANCOIS 08/21/2024 12:10:00 Final Observation Date Value Abnormality Reference (Units ) Status Lactic Acid 08/21/2024 12:10:00 1.7 0.4-2.0 (mmol/L) Final Performing Location [facility]ORY [facility] - [address] [facility] [address]
--- OUTSIDE RECORDS SUMMARY | 2024-09-04 08:57 | External Medical Summary ---
Author Name Unknown Address Unknown Organization [id number]:[facility] [place] [facility] [address] [facility] [address] Laboratory Report Ordering Provider Test Date Status CHEKO FRANCOIS 08/21/2024 10:57:00 Final Observation Date Value Abnormality Reference (Units ) Status Retic, % (auto) 08/21/2024 10:57:00 4.46 Above high normal 0.80-1.90 (%) Final Reticulocytes, Absolute 08/21/2024 10:57:00 100.4 Above high normal 31.3-100.1 (K/uL) Final Reticulocyte fraction, immature 08/21/2024 10:57:00 34.3 Above high normal 2.5-20.6 (%) Final Reticulocyte HGB 08/21/2024 10:57:00 24.1 Below low normal 29.7-37.4 (pg) Final Performing Location [facility] [place] [address] [place] [address]
--- OUTSIDE RECORDS SUMMARY | 2024-09-04 08:57 | External Medical Summary ---
Author Name Unknown Address Unknown Organization K01:[facility] [facility] [place] [address] [place] [address] Laboratory Report Ordering Provider Test Date Status CHEKO FRANCOIS 08/21/2024 10:57:00 Final Observation Date Value Abnormality Reference (Units ) Status ABO 08/21/2024 10:57:00 A Final RH 08/21/2024 10:57:00 Negative Final RED BLOOD CELL ANTIBODY SCREEN 08/21/2024 10:57:00 Negative Final SPECIMEN EXPIRATION DATE 08/21/2024 10:57:00 08/24/2024 23:59 Final Performing Location [facility] - [address] [place] [address]
--- OUTSIDE RECORDS SUMMARY | 2024-09-04 08:57 | External Medical Summary ---
Author Name Unknown Address Unknown Organization K01:LAB[facility]ATORY [facility] - [address] [place] [address] Laboratory Report Ordering Provider Test Date Status CHEKO FRANCOIS 08/21/2024 10:57:00 Final Observation Date Value Abnormality Reference (Units ) Status Iron 08/21/2024 10:57:00 210 Above high normal 45-176 (ug/dL) Final Iron-binding capacity 08/21/2024 10:57:00 210 Below low normal 250-425 (ug/dL) Final Transferrin Sat % 08/21/2024 10:57:00 100 Above high normal 15-55 (%) Final Performing Location [facility]ATORY [facility] - [address] [place] [address]
--- OUTSIDE RECORDS SUMMARY | 2024-09-04 08:57 | External Medical Summary ---
Author Name Unknown Address Unknown Organization K01:LAB[facility]ATORY [facility] - [address] [place] [address] Laboratory Report Ordering Provider Test Date Status CHEKO FRANCOIS 08/21/2024 10:57:00 Final Observation Date Value Abnormality Reference (Units ) Status Ferritin 08/21/2024 10:57:00 78 30-400 (ng /mL) Final Performing Location LABORATORY [facility] - [address] [place] [address]
[2024-09-04 10:05] LABS: INR 1.1 (0.9-1.1); Prothrombin Time 11.4 Seconds (9.0-12.0)
[2024-09-04] MEDS: AMMONIUM LACTATE 12% LOTION 225 GM BTL EXT SCH (10:30)
[2024-09-04] MEDS: NICOTINE 14 MG/24 HR PATCH TD SCH (11:06)
--- NOTE | 2024-09-04 13:35 | Gastrointestinal Consultation ---
Date of Consultation September 04, 2024 Assessment & Plan (1) Nausea and vomiting: -Antiemetics supportively -Check stool PCR for possible norovirus -Ensure he is on PPI therapy, particularly given recent GI bleed -Monitor CBC, CMP -Suspect this is related to the coil embolization; Wouldn't advise keeping this patient admitted at [facility]. (2) Ascites due to alcoholic cirrhosis: -Continue current meds as per his ribbon cleaner & bilingual sales consultant's recommendations -I did urge him to reconsider his stance on a TIPS procedure as his alternative option of recurrent paracentesis and frequent hospital admission is not a great path either. I do not think he understands the gravity & severity of his situation from a liver disease standpoint, but he can continue to follow with hepatology for this. -MELD labs pending this AM; Check MELD labs daily -2 gm Na diet -Avoid NSAIDs -Limit Tylenol to <2000 mg daily -Continue diuretics as prescribed -He had a paracentesis today--monitor fluid studies to rule out SBP; He will continue with these as an outpatient per his ribbon cleaner's plans. (3) GI bleed: -Recent IR procedure for bleeding duodenal ulcers not amenable to EGD. If he re- bleeds, would need to ship the patient. 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 Bleeding has been severe with counts down to 3 he was recently seen at [facility]. On the first or 2 August he had coil embolization of these varices. He is now having nausea vomiting. There is been no blood. He had a paracentesis today for 5 L of straw-colored fluid. His abdomen does not show tense ascites. His BUN/creatinine are at his normal levels. Patient denies any melena hematochezia or diarrhea. He has not provided a stool specimen yet for viruses such as norovirus. Patient does not show any signs or symptoms encephalopathy I suspect his nausea and vomiting related to his recent procedure. Still waiting norovirus. This patient is at significant risk of rebleeding I think he should be transferred to [facility] where he recently underwent these procedures. Ultimately he may require TIPS for his ascites and if there is recurrent bleeding patient has been resistant to this due to the mortality associated with the actual procedure itself. The symptoms potentially could settle while he is here however in the event of deterioration there is not much can be done for him at this institution. Recommend transfer. History of Present Illness Reason for Consultation: N/V Attending Physician: Yi Mark MD History of Present Illness Patient is a 54 yo male with complicated history of decompensated cirrhosis for which he follows with hepatology and receives weekly paracentesis. He recently underwent an IR procedure to stop a bleeding duodenal ulcer. He notes he began experiencing nausea & vomiting and decided to come to the ED. His H/H is higher than it has been in recent history at 8.8/27.5. No hematemesis. No melena, hematochezia. He has nephrology involvement given his kidney disease. He reportedly refused a TIPS despite being offered this. MELD labs pending this AM. He denies other symptoms at present. He notes he went for a paracentesis this AM. Allergies Allergy/AdvReac Type Severity Reaction Status Date / Time Penicillins Allergy Unknown pt unsure Verified 09/04/24 08:29 of reaction Home Medications Medication Instructions Recorded Confirmed Type fluticasone furoate 100 1 inh inhalation DAILY 08/21/24 09/04/24 History mcg/actuation blister powder for inhalation (Arnuity Ellipta) folic acid 1 mg tablet 5 mg PO DAILY 08/21/24 09/04/24 History gabapentin 300 mg capsule 300 mg PO TID 08/21/24 09/04/24 History hydroxyzine HCl 10 mg tablet 10 mg PO Q6H PRN Itching 08/21/24 09/04/24 History midodrine 5 mg tablet 5 mg PO TID 08/21/24 09/04/24 History spironolactone 100 mg tablet 100 mg PO DAILY 08/21/24 09/04/24 History torsemide 20 mg tablet 40 mg PO BID 08/21/24 09/04/24 History cholestyramine (with sugar) 4 gram 4 g PO TID 09/04/24 09/04/24 History oral powder lactulose 10 gram/15 mL oral 30 ml PO BID 09/04/24 09/04/24 History solution (Constulose) rifaximin 550 mg tablet 550 mg PO BID 09/04/24 09/04/24 History trazodone 50 mg tablet 50 mg PO HS 09/04/24 09/04/24 History Patient History Medical History Hypervolemia Symptomatic anemia hospitalized [facility] 02/26/24 for issues related to this Poor historian main details obtained from [place] med record Alcoholic cirrhosis of liver with ascites hospitalized [facility] 02/26/24 for issues related to this Metabolic encephalopathy hospitalized [facility] 02/26/24 for issues related to this PAF (paroxysmal atrial fibrillation) pt denies; hospitalized [facility] 02/26/24, evaluated by tae garcia per cardio consult Esophagitis History of severe sepsis hospitalized 02/26/24, [facility] 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 per med record; hospitalized [facility] 02/26/24 for issues related to this Orthostatic hypotension "he thinks" COPD (chronic obstructive pulmonary disease) History of pneumonia 07/2023, 02/26/24, hospitalized [facility] 02/26/24 for issues related to this S/P abdominal paracentesis 03/21/2024, [facility] Current every day smoker Surgical History History of esophagogastroduodenoscopy (EGD) S/P cataract extraction right eye/left History of tonsillectomy History of hernia surgery infancy Family History Mother Stroke Diabetes Other Colorectal cancer Heart disease Social History Smoking Status: Current some day smoker Tobacco Type: Cigarettes Cigarettes Per Day: 8; Second Hand Exposure: No; Do You Dip or Chew Tobacco: No; Tobacco Cessation Education Requested by Patient: No Hx Alcohol Use: No Hx Substance Use: No Preferred Language: Polish Communication Ability: Effective Tooling Mechanic Required: No Beliefs That Will Affect Care: None Current Living Situation: Spouse Current Living Situation Comment: roommate Other Information That Helps Us Care for You: No Feels Safe at Home: Yes Safety Concerns: Feels Safe At This Time Assistive Devices: Glasses Review of Systems Constitutional: no fever and no chills Gastrointestinal: + nausea and + vomiting; no abdominal pa in, no coffee ground emesis, no hematemesis, no blood in stools and no melena Psychiatric: no problem reported Physical Exam Constitutional: + ill appearing Respiratory: normal respiratory effort Gastrointestinal (Abdomen): ascites Psychiatric: Orientation: alert and oriented x 3 Results & Data Vital Signs (Past 12 Hours) Vital Signs Temp Pulse Pulse Resp BP BP Pulse Ox 09/04/24 13:00 77 16 118/73 95 09/04/24 12:15 71 104/63 90 09/04/24 11:45 68 99/61 L 94 09/04/24 11:15 71 113/63 94 09/04/24 10:45 70 15 108/58 L 94 09/04/24 10:33 74 93 09/04/24 10:30 74 15 97/55 L 94 09/04/24 10:25 76 16 104/57 L 95 09/04/24 08:41 77 09/04/24 08:00 77 126/75 96 09/04/24 07:00 80 126/71 96 09/04/24 05:23 70 09/04/24 05:07 78 20 97 09/04/24 05:02 36.8 C 81 18 126/73 97 09/04/24 04:59 36.5 C 80 17 130/82 96 O2 Del Method 09/04/24 13:00 Room Air 09/04/24 12:15 Room Air 09/04/24 11:45 Room Air 09/04/24 11:15 Room Air 09/04/24 10:45 Room Air 09/04/24 10:33 Room Air 09/04/24 10:30 Room Air 09/04/24 10:25 Room Air 09/04/24 08:41 09/04/24 08:00 Room Air 09/04/24 07:00 Room Air 09/04/24 05:23 09/04/24 05:07 Room Air 09/04/24 05:02 Room Air 09/04/24 04:59 Room Air PG Care Time/CCT Total # of Minutes Spent Total Time Spent with Patient: Total time spent is greater than 50% in coordination of care (as documented) at patient's floor/unit and/or counseling patient: Coding Level of Care Code 50394 IN/OBS CONSULT LVL 4,60M Diagnoses Nausea and vomiting, unspecified vomiting type R11.2 Vomiting type: unspecified Ascites due to alcoholic cirrhosis K70.31 GI bleed K92.2 GI bleed type/associated pathology: unspecified gastrointestinal hemorrhage type (1) Nausea and vomiting Vomiting type: unspecified Qualified Code(s): R11.2 - Nausea with vomiting, unspecified (3) GI bleed GI bleed type/associated pathology: unspecified gastrointestinal hemorrhage type Qualified Code(s): K92.2 - Gastrointestinal hemorrhage, unspecified
[2024-09-04 13:51] LABS: Appearance Urine Clear (Clear); Bilirubin Urine Negative (Negative); Blood Urine Negative (Negative); Color Urine Yellow; Glucose Urine UA Negative (Negative); Ketones Urine Negative (Negative); Leukocyte Esterase Urine Negative (Negative); Nitrite Urine Negative (Negative); Protein Urine Negative (Negative); Specific Gravity Urine 1.017 (1.000-1.030); Urobilinogen Urine Negative (Negative)
--- NOTE | 2024-09-04 13:51 | Ultrasound Report ---
ULTRASOUND-GUIDED PARACENTESIS CLINICAL HISTORY: Ascites PROCEDURE: Procedure and risks were explained. Informed consent was obtained. A final timeout was com pleted. A pocket of ascites was identified in the right lower quadrant. The right lower quadrant was prepped and draped in sterile fashion. 1% lidocaine was utilized for skin anesthesia. Utilizing ultrasound guidance, a 5 Japanese safety centesis catheter was advanced into the pocket of as cites. Ultrasound image was obtained. A total of 5 L of yellow ascites fluid was removed and discarde d. The catheter was removed and Band-Aid applied. The patient tolerated the procedure well. Vital sig ns will be monitored postprocedure. IMPRESSION: Ultrasound-guided paracentesis as above. Performed, dictated, and signed by Colten Rivas PA-C; to be co-signed by Dr. John Titus. Electronically signed by: John Titus M.D. 09/04/2024 2:19 PM
[2024-09-04] MEDS ORDERED: cefTRIAXone SODIUM 1,000 MG/50 ML BAG IV SCH (14:30)
--- NOTE | 2024-09-04 14:49 | Electrocardiogram Report ---
Test Reason : Blood Pressure : */* mmHG Vent. Rate : 72 BPM Atrial Rate : 72 BPM P-R Int : 182 ms QRS Dur : 104 ms QT Int : 408 ms P-R-T Axes : 54 61 62 degrees QTcB Int : 446 ms Normal sinus rhythm Low voltage QRS Borderline ECG When compared with ECG of 20-Aug-2024 18:48, QRS duration has increased Confirmed by Ken Baumann ([id number]) on 09/04/2024 2:49:22 PM Referred By: REFERRED SELF Confirmed By: Ken Baumann
[2024-09-04] MEDS ORDERED: hydrOXYzine HCl 10 MG TAB PO PRN (14:51)
[2024-09-04] MEDS: PANTOPRAZOLE BOLUS/DRIP IV STA (15:37)
[2024-09-04] MEDS: cefTRIAXone SODIUM 2,000 MG/50 ML BAG IV SCH (16:10)
[2024-09-04] MEDS ORDERED: CHOLESTYRAMINE LIGHT 4 GM PKT PO SCH (21:00)
[2024-09-04] MEDS: GABAPENTIN 300 MG CAP PO SCH (21:25)
[2024-09-04] MEDS: TORSEMIDE 20 MG TAB PO SCH (21:25)
[2024-09-04] MEDS: MIDODRINE HCL 2.5 MG TAB PO SCH (21:26)
[2024-09-04] MEDS: LACTULOSE SYRUP 20 GM/30 ML UDC PO SCH (21:27)
[2024-09-04] MEDS: rifAXIMin 550 MG TABLET PO SCH (21:27)
[2024-09-04 22:17] LABS: Albumin Peritoneal Fluid < 1.5 gm/dl; Total Protein Peritoneal Fluid < 3.0 gm/dl
[2024-09-04 22:47] LABS: Appearance Peritoneal Fluid Hazy; Color Peritoneal Fluid Yellow; RBC Peritoneal Fluid Auto 2000 /uL; WBC Peritoneal Fluid Auto 84 /ul (0-300)
[2024-09-04] MEDS: CHOLESTYRAMINE LIGHT 4 GM PKT PO SCH (23:33)
[2024-09-04] MEDS: traZODone HCL 50 MG TAB PO SCH (23:33)
[2024-09-05 06:19] LABS: Hematocrit (blood only) 22.8 % (42.0-52.0); Hemoglobin 7.3 g/dl (14.0-18.0); Mean Corpuscular Hemoglobin 29.3 pg (25.0-34.0); Mean Corpuscular Volume 91.6 fL (80.0-100.0); Mean Platelet Volume 9.4 fL (9.4-12.4); Platelet Count 166 K/uL (130-400); RDW Coefficient of Variation 18.6 % (11.5-14.5); RDW Standard Deviation 62.5 fL (36.4-46.3); Red Blood Count 2.49 M/uL (4.70-6.10); White Blood Count 9.84 K/ul (4.8-10.8)
[2024-09-05 06:36] LABS: Albumin Globulin Ratio 0.7 (0.9-2); Albumin Level 2.2 gm/dl (3.4-5.0); BUN Creatinine Ratio 28.8 (10-20); Bilirubin,Total 0.8 mg/dl (0.2-1.0); Calcium 7.6 mg/dl (8.6-10.3); Creatinine Clr Calc Pharmacy 53.8 ml/min; Globulin 3.2 gm/dl (2.5-4.0); Magnesium 2.6 mg/dl (1.7-2.4); Phosphorus 3.7 mg/dl (2.5-4.9); Potassium 4.6 mmol/L (3.5-5.1); Total Protein 5.4 gm/dl (6.0-8.3)
[2024-09-05 07:16] LABS: Folate (Folic Acid),Ser orPlas > 22.30 ng/ml (>5.38)
[2024-09-05 07:17] LABS: Vitamin B12 500 pg/ml (180-914)
[2024-09-05] MEDS: FOLIC ACID 1 MG TAB PO SCH (07:33)
[2024-09-05] MEDS: FLUTICASONE FUROATE 100MCG 14 PUFFS/INHALER INH SCH (07:33)
[2024-09-05 07:39] VITALS: RESP 19
[2024-09-05 10:55] VITALS: TEMP 98.1
--- NOTE | 2024-09-05 10:56 | Gastroenterology Progress Note ---
Date of Service September 05, 2024 Assessment & Plan (1) Nausea and vomiting: (2) GI bleed: (3) Ascites due to alcoholic cirrhosis: Plan Patient with decompensated liver disease recently refusing TIPS and receiving weekly paracentesis who presented days after his IR coil embolization for a bleeding duodenal ulcer that was not amenable to endoscopic intervention. At the time his hemoglobin was 3. No evidence of SBP or HE at present. MELD 21. His H/H has declined today. No overt GI bleeding. A stool PCR is pending to rule out Norovirus, though seems unlikely without diarrhea. He continues with his cirrhotic med regimen as prescribed by his hepatology team. He will revisit the topic of TIPS with them. He is currently on a PPI drip. H/H is being monitored. We had expressed yesterday that if this patient were to bleed during this admission, there is little that we could offer him and he would need to be emergently transported to a higher level of care. Admission and Anticipated Discharge Date Admission Date: September 04, 2024 Supervising Physician Co-Signing Physician Notes Drop in hemoglobin without obvious bleeding. Patient for discharge follow-up with [facility]. Hepatology. If patient develops recurrent symptoms he would be better served by going to [place] then coming to [facility] in the absence of a acute emergency. Subjective Patient is a 54 yo male here with nausea/vomiting after his coil embolization at [place]. His H/H dropped today to 7.3/22.8. He is not having overt GI bleeding at this time. He is not vomiting. Stool PCR pending. Review of Systems Gastrointestinal: no vomiting, no coffee ground emesis and no hematemesis Physical Exam Constitutional: well developed Respiratory: normal respiratory effort Gastrointestinal (Abdomen): normal bowel sounds, soft, nontender, no hepatosplenomegaly Psychiatric: Orientation: alert and oriented x 3 Results & Data Results & Data Vital Signs (Past 12 Hours) Vital Signs Temp Pulse Pulse Resp BP Pulse Ox O2 Del Method 09/05/24 08:36 73 09/05/24 08:36 Room Air 09/05/24 07:38 36.6 C 76 19 104/50 L 95 Room Air 09/05/24 03:44 36.5 C 75 16 110/75 96 Room Air 09/05/24 02:57 82 09/04/24 23:52 36.2 C L 71 16 100/56 L 95 Room Air PG Care Time/CCT Total # of Minutes Spent Total Time Spent with Patient: Total time spent is greater than 50% in coordination of care (as documented) at patient's floor/unit and/or counseling patient: Coding Level of Care Code 59950 SUB INP/OBS CARE 3/50MIN Diagnoses Nausea and vomiting, unspecified vomiting type R11.2 Vomiting type: unspecified GI bleed K92.2 GI bleed type/associated pathology: unspecified gastrointestinal hemorrhage type Ascites due to alcoholic cirrhosis K70.31 (1) Nausea and vomiting Vomiting type: unspecified Qualified Code(s): R11.2 - Nausea with vomiting, unspecified (2) GI bleed GI bleed type/associated pathology: unspecified gastrointestinal hemorrhage type Qualified Code(s): K92.2 - Gastrointestinal hemorrhage, unspecified
[2024-09-05] MEDS: PANTOprazole 40 MG TAB PO SCH (12:08)
[2024-09-05] MEDS: LACTULOSE SYRUP 30 GM/45 ML UDP PO SCH (12:08)
[2024-09-05 14:30] LABS: Hematocrit (blood only) 23.8 % (42.0-52.0); Hemoglobin 7.6 g/dl (14.0-18.0)
[2024-09-05 14:43] LABS: BUN Creatinine Ratio 26.9 (10-20); Calcium 7.3 mg/dl (8.6-10.3); Creatinine Clr Calc Pharmacy 52.3 ml/min; Potassium 4.6 mmol/L (3.5-5.1)
[2024-09-05 14:58] VITALS: BP 99/72; PULSE 83; O2SAT 97
--- OUTSIDE RECORDS SUMMARY | 2024-09-05 18:02 | External Medical Summary | Summary of Care ---
Author Name Unknown Organization [facility] Address [address] [place] [address] Phone [phone] Care Team Providers Care Pot Runner Name Role Phone Rina Neil PA-C Primary Care Provider [phone] Reason for Visit * Reason Onset Date Comments Appointment 09/05/2024 IR Encounter Details Date Type Department Care Team (Late st Contact Info) Description 09/05/2024 Telephone [facility] [place] [address] [place] [address] ADDRESS AVAILABLE Appointment (IR) Allergies Active Allergy Reactions Criticality Noted Date Comments Penicillins Unknown 08/09/2023 documented as of this encounter (statuses as of 09/05/2024) Medications Pantoprazole Sodium 40 MG Oral Tablet [...] as of this encounter (statuses as of 09/05/2024) Active Problems Problem Noted Date Diagnosed Date [...] as of this encounter (statuses as of 09/05/2024) Resolved Problems Problem Noted Date Diagnosed Date Resolved Date Upper GI bleed 05/09/2024 05/12/2024 documented as of this encounter (statuses as of 09/05/2024) Immunizations Name Administration Dates Next Due Seasonal [...] ages 0-17 years) Not on file 08/21/2024 Food Insecurity Answer Date Recorded Worried About Running Out of Food in the Last Ye ar Not on file 08/21/2024 Ran Out of Food in the Last Year Not on file 08/21/2024 Do you need food for this week? No 08/21/2024 Sex and Gender Information Value Date [...] encounter Miscellaneous Notes * Telephone Encounter - Nereyda Peña OSA - 09/05/2024 10:13 AM EST Left message to schedule paracentesis and follow up phone call with Dr. Santana in IR documented in this encounter Plan of Treatment Upcoming Encounters Date Type Department Care Team (Latest Contact Info) Description 09/11/2024 10:20 AM EST Office Visit [facility] [place] [address] [facility] [address] [facility] [place] [address] Rina Neil PA-C [address] [facility] [place] [address] 09/26/2024 8:00 AM EST Hospital Encounter CRS Waiting [facility], Cardiac Recovery Suite Waiting Unit, [address] [place] [phone] Rebeca Epps MD [address] [place] [address] 09/26/2024 8:00 AM EST - 09/26/2024 9:00 AM EST Surgery CRS [place]ing [facility] [place] Card[facility] Suite Waiting Unit, [address] [place] [address] Rebeca Epps MD [address] [place] [address] CORONARY ANGIOGRAPHY W/LEFT HEART CATH 09/26/2024 8:00 AM EST Office Visit Cardiology [facility] [place] [address] [place] [address] [place], Cardiac Recovery [facility] [address] [place] [address] 01/13/2025 1:45 PM EDT Imaging Radiology [facility] [address] [place] [phone] Scheduled Procedures Name Priority Associated Diagnoses Date/Ti me CORONARY ANGIOGRAPHY W/LEFT HEART CATH Pre-liver transplant, listed 09/26/2024 8:00 AM EST Health Maintenance Due Date Last Done Comments DISCUSS TOBACCO CESSATION (REFER TO SMARTSET #[id number]) 1972 Depression Screening 1984 Albumin/Creatinine Ratio 1990 [...] 08/31/2024, Additional history exists Phosphate 09/02/2025 09/02/2024, 08/2024, 08/31/2024, Additional history exists Diabetes Screening [...] this encounter Medical Devices Implanted Type Area Placement Coordinator Device Identifier Shelf Expiration Date Model / Serial / Lot Pod Packing Coil Jsoft 45cm - [id number] Implanted:Qty: 1 on 05/10/2024 at [facility] [employer] [id number] 09/30/2031 [id number] / / [id number] Azur Detachable 018 7mmx 24cm - [id number] Implanted:Qty: 1 on 05/10/2024 at [facility] [employer] [id number] 08/30/2028 [id number] / / [id number] Pod Packing Coil Jsoft 45cm - [id number] Implanted:Qty: 1 on 05/10/2024 at [facility] [employer] [id number] 12/26/2031 [id number] / / [id number] Coil Radha Soft 9fuh93kj - [id number] Implanted:Qty: 1 on 05/10/2024 at [facility] [employer] [id number] 10/07/2031 [id number] / / [id number] Cath Thermodilution 6fr - [id number] Implanted:Qty: 1 on 08/29/2024 by Rebeca Epps MD at [facility] [employer] [id number] 02/18/2026 [id number] / / [id number] Coil Azur Cx Detach 3x8 - [id number] Implanted:Qty: 1 on 08/31/2024 at [facility] [employer] MARY 04/29/2029 [id number] / / [id number] Coil Azur Cx Detach 3x8 - [id number] Implanted:Qty: 1 on 08/31/2024 at [facility] [employer] [facility] 04/29/2029 [id number] / / [id number] Coil Azur Cx Detach 2x4 - [id number] Implanted:Qty: 1 on 08/31/2024 at [facility] [employer] [facility] 05/30/2029 [id number] / / [id number] Lipiodol Injection - [id number] Implanted:Qty: 1 on 08/31/2024 at [facility] [employer] [id number] 1-2 / documented as of this encounter [...] Care Agent (per Health Care Power of Food Preparation Supervisor document) Care Teams Pot Runner Relationship Specialty Start Date End Date Jolynn October SHAQ Carter [address] [place] [address] PCP - General Physician Cage Loader 04/10/24 documented as of this encounter
--- OUTSIDE RECORDS SUMMARY | 2024-09-05 18:02 | External Medical Summary | Summary of Care ---
Author Name Unknown Organization [facility] Address [address] [facility] [place] [address] Phone [phone] Care Team Providers Care Grades 1 6 Tutor Name Role Phone Rina Neil PA-C Primary Care Provider [phone] Reason for Visit * Reason Onset Date Comments Advice 2024 Encounter Details Date Type Department Care Team (Late st Contact Info) Description 2024 Telephone Family Practice [facility] [address] [place] [address] Rina Neil PA-C [address] [place] [address] Advice Allergies Active Allergy Reactions Criticality Noted [...] Encounter - Clarita Rivas RN - 2024 3:05 PM EST Patient was discharged from [facility] yesterday. Had TIPS on 08/31 and is reporting "abdomen muscle" discomfort with movement, and would like to know if you can prescribe anything for the discomfort October? He has a follow up appt here on 09.11. Please advise? Thank you documented in this encounter Plan of Treatment Upcoming Encounters Date Type Department Care Team (Latest Contact Info) Description 09/11/2024 10:20 AM EST Office Visit Family [facility] [place] [place] [address] [place] [address] Rina Neil PA-C [address] [place] [address] 09/26/2024 8:00 AM EST Hospital Encounter CRS Waiting [facility], Cardiac Recovery Suite Waiting Unit, [address] [place] [id number] Rebeca Epps MD [address] [place] [address] 09/26/2024 8:00 AM EST - 09/26/2024 9:00 AM EST Surgery CRS Waiting [facility], Cardiac Recovery Suite Waiting Unit, [address] [place] [address] Rebeca Epps MD [address] [place] [address] CORONARY ANGIOGRAPHY W/LEFT HEART CATH 09/26/2024 8:00 AM EST Office Visit Cardiology [facility], [place] [address] [place] [address] [facility] Cardiac Recovery [facility] [address] [place] [address] 01/13/2025 1:45 PM EDT Imaging Radiology [facility] [address] [place] [phone] Scheduled Procedures Name Priority Associated Diagnoses Date/Ti me CORONARY ANGIOGRAPHY W/LEFT HEART CATH Pre-liver transplant, listed 09/26/2024 8:00 AM EST Health Maintenance Due Date Last Done Comments DISCUSS TOBACCO CESSATION (REFER TO SMARTSET #[id number]) 1972 Depression Screening 1984 Albumin/Creatinine Ratio 1990 [...] this encounter Medical Devices Implanted Type Area Production Utility Worker Device Identifier Shelf Expiration Date Model / Serial / Lot Pod Packing Coil Jsoft 45cm - [id number] Implanted:Qty: 1 on [facility]10[facility]2024 [facility] [employer] [id number] 09/30/2031 [id number] / / [id number] Azur Detachable 018 7mmx 24cm - [id number] Implanted:Qty: 1 on 05/10/2024 at [facility] [employer] [id number] 08/30/2028 [id number] / / [id number] Pod Packing Coil Jsoft 45cm - [id number] Implanted:Qty: 1 on 05/10/2024 at [facility] [employer] [id number] 12/26/2031 [id number] / / [id number] Coil Radha Soft [id number] - [id number] Implanted:Qty: 1 on 05/10/2024 at [facility] [employer] [id number] 10/07/2031 [id number] / / [id number] Cath Thermodilution 6fr - [id number] Implanted:Qty: 1 on 08/29/2024 by Rebeca Epps MD at [facility] [employer] [id number] 02/18/2026 [id number] / / [id number] Coil Azur Cx Detach 3x8 - [id number] Implanted:Qty: 1 on 08/31/2024 at [facility] [employer] 04/29/2029 [id number] / / [id number] Coil Azur Cx Detach 3x8 - [id number] Implanted:Qty: 1 on 08/31/2024 at [facility] [email or web address] [facility] 04/29/2029 [id number] / / [id number] Coil Azur Cx Detach 2x4 - [id number] Implanted:Qty: 1 on 08/31/2024 at [facility] [email or web address] [facility] 05/30/2029 [id number] / / [id number] Lipiodol Injection - [id number] Implanted:Qty: 1 on 08/31/2024 at [facility] Mineralist [id number] 1-2 / / documented as of this encounter Visit Diagnoses Diagnosis Muscle pain- Primary Mylagia and myositis, unspecified Pre-liver transplant, listed documented in this encounter [...] Agents on File Name Relationship Healthcare Agent [facility] p Communication Manuela Shen Sibling First Alternate Health Care Agent (per Health Care Power of Incident Response Coordinator document) Care Teams Grades 1 6 Tutor Relationship Specialty Start Date End Date Jolynn October SHAQ Carter [address] [place] [address] [address] PCP - General Physician Molding Technician 04/10/24 documented as of this encounter
--- NOTE | 2024-09-05 18:41 | Discharge Summary ---
Date of Service September 05, 2024 Admission HPI Per Admitting Provider Rashel Herreraelvin Amador is a 54y/o M with PMHx significant for ascites due to alcoholic cirrhosis with weekly paracentesis, alcohol dependence in remission, gastric antral vascular ectasia, portal HTN, esophageal varices, duodenal varices, CKD stage IV, thrombocytopenia, chronic anemia, hyponatremia, severe protein-energy malnutrition, tobacco use disorder and COPD who presented to the ED on 09/04/24 with complaints of nausea and vomiting. History obtained from the patient, patient's roommate at bedside and associated chart review. Patient seen at bedside in the ED with Dr. Mark. Patient recently presented to the [facility] on 08/20/24 with symptomatic anemia due to profound drop in Hgb down to 3.3 secondary to GI bleed in the setting of bleeding duodenal varices. He was ultimately transferred to [facility] for IR intervention on 08/21/24. He received a total of 4 units of PRBCs upon arriving to [facility]. EGD at [facility] revealed large duodenal varices with stigmata of bleeding. He is now s/p variceal embolization on 08/31/24 with paracentesis performed by IR. Patient declined TIPS procedure given risks of procedure. Patient was discharged home on 09/02/24 with a Hgb of 6.9 (baseline Hgb ~6-8) and Cr of 1.8 (baseline Cr ~1.6-2). Patient has been dealing with multiple episodes of nausea and vomiting since being discharged from [facility]. His oral intake has been extremely poor due to this. He describes a sensation of fullness in his abdominal region. He undergoes paracentesis usually 1 or 2x/week with IR here at [facility] and has ~1L of fluid removed each time. Next outpatient paracentesis appointment isn't until 09/09/24. He noted a possible dark discoloration of his vomit this morning however he is unsure if it was blood- tinged due to poor lighting in his residence. He endorses significantly dry skin and persistent itching, especially across his abdominal region. He has multiple excoriations across his abdomen from itching it constantly. He has 2 surgical bandages which are C/D/I on his abdominal region from the paracentesis while at [facility]. No reported fevers, chills or body aches. He has a chronic moist- sounding cough but denies any SOB or chest pain. No reported episodes of diarrhea or any discoloration in his stool. Hemodynamically stable in ED. S/p 1L NSS and IV Protonix bolus + drip initiated. No leukocytosis. Type/screen completed. Hgb stable at 8.8 in ED (compared to Hgb 6.9 on 09/02/24). Platelet count WNL. Cr stable at 1.99 and Tbili 1.1 (compared to Tbili 2.5 on 08/21/24). Additional LFTs WNL. Respiratory BioFire panel negative. FOBT still pending. CTAP w/o contrast noted suspected colitis in the ascending and small transverse colon as well as possible acute diverticulitis. Admission Exam Per Admitting Provider GENERAL APPEARANCE: AxOx4, chronically ill appearing gentleman HEENT: NC, AT. MMM. EOMI, clear conjunctiva, oropharynx clear. NECK: Supple without lymphadenopathy. No stiffness or restricted ROM. HEART: Normal rate and regular rhythm, normal S1/S1, no m/r/g LUNGS: diminished bibasilar breathsounds ABDOMEN: distended, fluid shift BACK: No CVAT, no obvious deformity. EXTREMITIES: nonpitting edema BLE. NEUROLOGICAL: Grossly nonfocal. Alert and oriented, moving all 4 extremities. CN not formally tested but appear grossly intact Skin:diffuse excoriations 2/2 xerosis on abdomen and extremeities Principal Diagnosis Nausea and vomiting Alcoholic cirrhosis with ascites History of recent duodenal variceal bleed s/p IR embolization Discharge Exam Constitutional + ill appearing; no acute distress Respiratory normal respiratory effort; no respiratory distress Auscultation: + diminished lung sounds Cardiovascular Rate/Rhythm: regular rate and regular rhythm Vessels: normal peripheral pulses Extremities: + edema (+1-2 edema BLE) Gastrointestinal (Abdomen) Inspection/Auscultation: + abdomen distended (semi firm) Percussion/Palpation: + ascites; abdomen nontender Skin no rashes, warm and dry Neurologic no focal motor deficits Psychiatric A+Ox3, euthymic affect Discharge Data Allergies Allergy/AdvReac Type Severity Reaction Status Date / Time Penicillins Allergy Unknown pt unsure Verified 09/04/24 08:29 of reaction Consultations 09/04/24 08:46 Consult Gastroenterology Routine Ordered Studies Laboratory Results WBC 9.84 K/ul (4.8-10.8) 09/05/24 05:46 RBC 2.49 M/uL (4.70-6.10) L 09/05/24 05:46 Hgb 7.6 g/dl (14.0-18.0) L 09/05/24 14:10 Hct 23.8 % (42.0-52.0) L 09/05/24 14:10 MCV 91.6 fL (80.0-100.0) 09/05/24 05:46 MCH 29.3 pg (25.0-34.0) 09/05/24 05:46 MCHC 32.0 g/dL (32.0-36.0) 09/05/24 05:46 RDW Std Deviation 62.5 fL (36.4-46.3) H 09/05/24 05:46 RDW Coeff of Ham 18.6 % (11.5-14.5) H 09/05/24 05:46 Plt Count 166 K/uL (130-400) 09/05/24 05:46 MPV 9.4 fL (9.4-12.4) 09/05/24 05:46 Immature Gran % (Auto) 0.9 % 09/04/24 05:07 Neut % (Auto) 82.0 % 09/04/24 05:07 Lymph % (Auto) 4.3 % 09/04/24 05:07 [place] % (Auto) 11.5 % 09/04/24 05:07 Eos % (Auto) 0.8 % 09/04/24 05:07 Baso % (Auto) 0.5 % 09/04/24 05:07 Neut # (Auto) 8.31 K/uL (1.40-6.50) H 09/04/24 05:07 Lymph # (Auto) 0.44 K/uL (1.20-3.40) L 09/04/24 05:07 [place] # (Auto) 1.16 K/uL (0.11-0.59) H 09/04/24 05:07 Eos # (Auto) 0.08 K/uL (0.00-0.50) 09/04/24 05:07 Baso # (Auto) 0.05 K/uL (0.00-0.20) 09/04/24 05:07 Immature Gran # (Auto) 0.09 K/uL (0.01-0.20) 09/04/24 05:07 PT 11.4 Seconds (9.0-12.0) 09/04/24 09:32 INR 1.1 (0.9-1.1) 09/04/24 09:32 Sodium 128 mmol/L (136-145) L 09/05/24 14:10 Potassium 4.6 mmol/L (3.5-5.1) 09/05/24 14:10 Chloride 97 mmol/L (98-107) L 09/05/24 14:10 Carbon Dioxide 26 mmol/L (21-32) 09/05/24 14:10 Anion Gap 5 (3-11) 09/05/24 14:10 BUN 47 mg/dl (6-23) H 09/05/24 14:10 Creatinine 1.75 mg/dl (0.6-1.4) H 09/05/24 14:10 Est Cr Clr Drug Dosing 52.3 ml/min 09/05/24 14:10 eGFR 46.27 09/05/24 14:10 BUN/Creatinine Ratio 26.9 (10-20) H 09/05/24 14:10 Glucose 131 mg/dl (70-99(Fasting)) H 09/05/24 14:10 Calcium 7.3 mg/dl (8.6-10.3) L 09/05/24 14:10 Phosphorus 3.7 mg/dl (2.5-4.9) 09/05/24 05:46 Magnesium 2.6 mg/dl (1.7-2.4) H 09/05/24 05:46 Total Bilirubin 0.8 mg/dl (0.2-1.0) 09/05/24 05:46 AST 20 U/L (13-39) 09/05/24 05:46 ALT 9 U/L (7-52) 09/05/24 05:46 Alkaline Phosphatase 53 U/L (34-104) 09/05/24 05:46 Total Protein 5.4 gm/dl (6.0-8.3) L 09/05/24 05:46 Albumin 2.2 gm/dl (3.4-5.0) L 09/05/24 05:46 Globulin 3.2 gm/dl (2.5-4.0) 09/05/24 05:46 Albumin/Globulin Ratio 0.7 (0.9-2) L 09/05/24 05:46 Lipase 72 U/L (11-82) 09/04/24 05:07 Vitamin B12 500 pg/ml (180-914) 09/05/24 05:46 Folate > 22.30 ng/ml (>5.38) 09/05/24 05:46 Urine Color Yellow 09/04/24 13:32 Urine Appearance Clear (Clear) 09/04/24 13:32 Urine pH 5.0 (4.5-7.5) 09/04/24 13:32 Ur Specific [place] 1.017 (1.000-1.030) 09/04/24 13:32 Urine Protein Negative (Negative) 09/04/24 13:32 Urine Glucose (UA) Negative (Negative) 09/04/24 13:32 Urine Ketones Negative (Negative) 09/04/24 13:32 Urine Blood Negative (Negative) 09/04/24 13:32 Urine Nitrite Negative (Negative) 09/04/24 13:32 Urine Bilirubin Negative (Negative) 09/04/24 13:32 Urine Urobilinogen Negative (Negative) 09/04/24 13:32 Ur Leukocyte Esterase Negative (Negative) 09/04/24 13:32 Fluid Neutrophils % TNP 09/04/24 Unknown Fluid Comment 09/04/24 Unknown Peritoneal Color Yellow 09/04/24 Unknown Peritoneal Appearance Hazy 09/04/24 Unknown Peritoneal WBC (Auto) 84 /ul (0-300) 09/04/24 Unknown Peritoneal RBC (Auto) 2000 /uL 09/04/24 Unknown Peritoneal Tot Protein < 3.0 gm/dl 09/04/24 Unknown Peritoneal Albumin < 1.5 gm/dl 09/04/24 Unknown Adenovirus (PCR) Not Detected (NotDetected) 09/04/24 06:09 B. pertussis DNA (PCR) Not Detected (NotDetected) 09/04/24 06:09 B.parapertussis DNA PCR Not Detected (NotDetected) 09/04/24 06:09 C. pneumoniae DNA (PCR) Not Detected (NotDetected) 09/04/24 06:09 Coronavirus OC43 (PCR) Not Detected (NotDetected) 09/04/24 06:09 Coronavirus HKU1 (PCR) Not Detected (NotDetected) 09/04/24 06:09 Coronavirus 229E (PCR) Not Detected (NotDetected) 09/04/24 06:09 SARS-CoV-2 (PCR) Not Detected (NotDetected) 09/04/24 06:09 Coronavirus NL63 (PCR) Not Detected (NotDetected) 09/04/24 06:09 Human Metapneumovir PCR Not Detected (NotDetected) 09/04/24 06:09 Influenza Type A (PCR) Not Detected (NotDetected) 09/04/24 06:09 Influenza Type B (PCR) Not Detected (NotDetected) 09/04/24 06:09 M. pneumoniae (PCR) Not Detected (NotDetected) 09/04/24 06:09 Parainfluenza 1 (PCR) Not Detected (NotDetected) 09/04/24 06:09 Parainfluenza 2 (PCR) Not Detected (NotDetected) 09/04/24 06:09 Parainfluenza 3 (PCR) Not Detected (NotDetected) 09/04/24 06:09 Parainfluenza 4 (PCR) Not Detected (NotDetected) 09/04/24 06:09 RSV (PCR) Not Detected (NotDetected) 09/04/24 06:09 Entero/Rhino (PCR) Not Detected (NotDetected) 09/04/24 06:09 Blood Type A Negative 09/04/24 05:23 Antibody Screen NEGATIVE 09/04/24 05:23 Impressions Abdomen/Pelvis CT 09/04/24 05:16 EXAM: CT abd pelvis wo con CLINICAL HISTORY: Nausea/Vomiting. TECHNIQUE: Non-contrast CT of the abdomen and pelvis was performed, with the following protocol: axial images, and reconstructed coronal and sagittal images. One of the following dose reduction techniques was utilized for this exam: Automated exposure control, adjustment of the mA and/or kV according to patient size, and use of iterative reconstruction. DLP: 1250.7 mGy-cm, CTDI: 23.9 mgy. COMPARISON: CT dated 08/20/2024. FINDINGS: The scanned lower lung shows mild left-sided pleural effusion with underlying consolidation collapse. Widening of the esophageal hiatus with small hiatus hernia and herniation of ascitic fluid was awaiting dilators Coil embolization of the esophageal varices Abdomen: Liver: Shrunken cirrhotic liver. No focal lesions, cysts, or masses were identified. Metallic density noted at the right liver lobe segment 5, likely related to postintervention changes. Gallbladder and Biliary System: Gallbladder stones with no signs of acute cholecystitis. Thick-walled gallbladder with a maximum wall thickness of 4 mm with foci of calcification suggesting possible porcline gallbladder. Pancreas: Pancreatic head, body, and tail are visualized and appear normal in size and density. No pancreatic masses or calcifications were noted. Spleen: Normal in size, shape, and density. No splenic lesions or masses were identified. Appendix: The appendix is normal in size without gita appendiceal fat stranding and without an appendicolith. No evidence of appendiceal abscess or perforation. Kidneys and Adrenal Glands: Few bilateral renal cysts, the largest noted on the right side measures 24x27 mm with calcific septations, likely complex, MRI with contrast is needed. Both kidneys are normal in size, shape, and position. Cortical thickness is within normal limits. No renal calculi or hydronephrosis. Adrenal glands are unremarkable. Abdominal Aorta and Vessels: The abdominal aorta and major branches are patent without evidence of an aneurysm or significant atherosclerosis. Pelvis: Urinary Bladder: Normal in contour and wall thickness. No intraluminal lesions. Prostate: Normal in size and contour. No masses or abnormal thickening. Seminal Vesicles: Normal appearance without abnormal enlargement or mass. Peritoneal and Retroperitoneal Structures: Marked pelvi-abdominal ascites with stranding of mesenteric fat. No pneumoperitoneum. Bowel: Submucosal edema at the ascending and proximal transverse colon was noted with a maximum thickness of 19 mm likely representing colitis. A contrast study is advised. Multiple colonic diverticuli with the possibility of acute diverticulitis cannot be excluded in the presence of free fluid and stranding of fat. No evidence of bowel obstruction. Bones and Soft Tissues: Pelvic bones and soft tissues are unremarkable. No fractures or abnormal masses were identified. IMPRESSION: 1. Few bilateral renal cysts, the largest noted on the right side measures 24x27 mm with calcific septations, likely complex, MRI with contrast is needed. 2. Marked pelvi-abdominal ascites with stranding of mesenteric fat. No pneumoperitoneum. 3. Mild left-sided pleural effusion with underlying consolidation collapse. 4. Shrunken cirrhotic liver. 5. Gallbladder stones with no signs of acute cholecystitis with possible porcline gallbladder. 6. Submucosal edema at the ascending and proximal transverse colon was noted with a maximum thickness of 19 mm likely representing colitis. Contrast study is advised. 7. Multiple colonic diverticuli with the possibility of acute diverticulitis cannot be excluded in the presence of free fluid and stranding of fat. Yet no collections. 8. Compared to the prior study no detected interval changes. Electronically signed by Henrik Branch 09-04-2024 06:52 AM Paracentesis Ultrasound 09/04/24 09:01 ULTRASOUND-GUIDED PARACENTESIS CLINICAL HISTORY: Ascites PROCEDURE: Procedure and risks were explained. Informed consent was obtained. A final timeout was completed. A pocket of ascites was identified in the right lower quadrant. The right lower quadrant was prepped and draped in sterile fashion. 1% lidocaine was utilized for skin anesthesia. Utilizing ultrasound guidance, a 5 [place]ian safety centesis catheter was advanced into the pocket of ascites. Ultrasound image was obtained. A total of 5 L of yellow ascites fluid was removed and discarded. The catheter was removed and Band-Aid applied. The patient tolerated the procedure well. Vital signs will be monitored postprocedure. IMPRESSION: Ultrasound-guided paracentesis as above. Performed, dictated, and signed by Colten Rivas PA-C; to be co-signed by Dr. John Titus. Electronically signed by: John Titus M.D. 09/04/2024 2:19 PM Hospital Course (1) Acute colitis: (2) Nausea and vomiting: (3) Ascites due to alcoholic cirrhosis: Krista Amador (Danny) is a 54y/o M with PMHx significant for ascites due to alcoholic cirrhosis with weekly paracentesis, alcohol dependence in remission, gastric antral vascular ectasia, portal HTN, esophageal varices, duodenal varices, CKD stage IV, thrombocytopenia, chronic anemia, hyponatremia, severe protein-energy malnutrition, tobacco use disorder and COPD who presented to the ED on 09/04/24 with complaints of nausea and vomiting. Patient recently presented to the [facility] on 08/20/24 with symptomatic anemia due to profound drop in Hgb down to 3.3 2/2 GI bleed ISO bleeding duodenal varices. He was ultimately transferred to [facility] for IR intervention on 08/21/24. He received a total of 4 units of PRBCs prior to arriving at [facility] and then received an additional 4 units of PRBCs while admitted at [facility] [total = 8 units of PRBCs; most recent transfusion on 09/02/24]. EGD at [facility] revealed large duodenal varices with stigmata of bleeding. He underwent variceal embolization on 08/31/24 with paracentesis performed by IR. Patient declined TIPS procedure given risks of procedure. He was discharged home on 09/02/24 with a Hgb of 6.9 (baseline Hgb ~6-8) and Cr of 1.8 (baseline Cr ~1.6-2). Patient has been dealing with multiple episodes of nausea and vomiting since being discharged from [facility]. His oral intake has been extremely poor due to this. He describes a sensation of fullness in his abdominal region. He undergoes paracentesis usually 1 or 2x/week with IR at [facility] and has ~10L of fluid removed each time. Next outpatient paracentesis appointment isn't until 09/09/24. He noted a possible dark discoloration of his vomit this morning however he is unsure if it was blood-tinged due to poor lighting in his residence. Ascites 2/2 alcoholic cirrhosis Nausea & vomiting Hemodynamically stable in ED. S/p 1L NSS in ED. IV Protonix bolus + drip initiated in ED which was continued and transitioned to PO Protonix 40mg BID at discharge Hgb remained stable at 8.8 -> 7.3 -> 7.6 (patient's baseline) Tbili 1.1 -> 0.8 and additional LFTs WNL. Plt count WNL. Clear liquid diet CTAP mentions suspected colitis in the ascending + small transverse colon and possible acute diverticulitis. Initial infectious workup unremarkable - no leukocytosis, respiratory BioFire panel negative, no fevers/systemic symptoms, no diarrhea CTAP also noted marked pelvi-abdominal ascites with stranding of mesenteric fat, shrunken cirrhotic liver. GI consulted and advised that if patient developed recurrent bleeding, he would need to be transferred back to [facility]. There was no evidence of active GI bleeding throughout admission Hgb remained stable. There was also discussion regarding patient's recommended TIPS procedure. Discussed case with IR at [facility] who is familiar with the patient from recent admission. MELD score 21 today, IR states that MELD score would need to be below 18 to proceed with TIPS procedure therefore transfer was declined. It is recommended that patient continue to follow-up as an outpatient and continue to optimize sodium and creatinine to improve MELD score. Patient was started on empiric IV ceftriaxone for SBP. No organisms seen on Gram stain from paracentesis, noted final culture pending at the time of discharge. SBP prophylaxis with oral Cipro was discussed with GI who does not feel is warranted at this time. S/p 5L paracentesis on 09/04/2024 Patient's diet was advanced which he tolerated. He was discharged home on p.o. Protonix 40 mg twice daily and instruction to follow closely with GI/ hepatology and PCP. Continue usual cirrhosis medications including lactulose, Xifaxan, spironolactone, torsemide CKD stage IV Renal cysts noted on CTAP Cr stable throughout admission, baseline Cr ~1.6-2 CTAP incidentally noted b/l renal cysts - largest on R side measuring 24 x 27mm with calcific septations. MRI with contrast to further evaluate R renal cyst recommended given its likely complex nature - however can be done as an o/p given stable renal function. COPD, noted mild L-sided pleural effusion on CTAP CTAP also revealed a mild L-sided pleural effusion with underlying consolidation collapse. Patient continues to saturate well on RA. Denies any SOB, chest pain or increased WOB. Has chronic cough which is unchanged. No indication for intervention at this time to drain the pleural effusion. Chronic hyponatremia Due to cirrhosis, baseline Na+ ~ 125 Na+ 130 -> 128 Continue diuretics Total Time Total Time Spent Total Time Spent (In Minutes): 40 Discharge Plan Discharge Items Patient Disposition: Home - Self-Care Reason For Visit: NAUSEA/VOMITING, CIRRHOSIS Discharge Diagnosis: Nausea, Vomiting Cirrhosis with ascites Activity: Resume your previous activity Non-emergency contact: Primary Care Provider Call non-emergency contact if: you have any medication questions, your symptoms worsen, your pain is not controlled and you have a fever Follow-up/Referrals: Rina Neil PA-C [Primary Care Provider] - (Date & Time 09/11/2024 10:20 AM Provider: Rina Neil PA-C [facility] ) Sari Holder MD [Hospitalist] - (The office will call you for a follow up appointment.) Diet: Low Sodium (2gm) Addtl Attending Provider Instructions: You presented to the hospital for evaluation of nausea and vomiting. You were recently admitted to [facility] for GI bleeding therefore you were placed on an IV medication to help prevent bleeding (Protonix), you will be discharged on oral Protonix (pantoprazole) 40mg twice daily. You had a paracentesis on 09/04. You should continue your usual paracentesis schedule with next one on 09/09 at [facility]. Follow up with your PCP and GI doctor as scheduled. It was a pleasure taking care of you. If you need to reach a member of the [facility] hospitalist team and [facility], please call [phone]. LILI Warner Pending Studies at Discharge: Yes Studies:: Final paracentesis culture results Stand-Alone Forms: My [facility], Smoking Cessation Medications and DC Order Prescriptions: New pantoprazole 40 mg Tablet,Delayed Release (Dr/Ec) 40 mg PO BID 30 Days Qty: 60 0RF Continued torsemide 20 mg tablet 40 mg PO BID spironolactone 100 mg tablet 100 mg PO DAILY midodrine 5 mg tablet 5 mg PO TID gabapentin 300 mg capsule 300 mg PO TID folic acid 1 mg tablet 5 mg PO DAILY hydroxyzine HCl 10 mg tablet 10 mg PO Q6H PRN (Reason: Itching) Arnuity Ellipta 100 mcg/actuation blister with device 1 inh INHALATION DAILY trazodone 50 mg tablet 50 mg PO HS rifaximin 550 mg Tablet 550 mg PO BID lactulose [Constulose] 10 gram/15 mL solution 30 ml PO BID 30 Days Qty: 1800 0RF Held cholestyramine (with sugar) 4 gram Powder 4 g PO TID Hold Instructions: Resume on 09/23/24. Resume this medication as per your GI doctor's recommendation Rx Instructions: administer w/meal; avoid other meds within 1hr before or 4-6hr after dose Discharge Orders: Discharge Order (Routine); Ordered 09/05/24 Ordered By: Ivone Cabezas Admission Data Admit Date/Time: 09/04/24 08:08 Attending Provider: Yi Mark Admit Provider: Yi Mark Primary Care Provider: Rine,Rina A. Other Providers: Yi Mark; Sampson Ross Other Interventions: Discharge Summary Assessment (RN) Last Done: 09/05/24 15:51 Supervising Physician Co-Signing Physician Notes I have seen and discussed the case with the collaborating advanced practitioner. I agree with the above DS I have reviewed and confirmed the patients medical history, the findings on physical examination, and the patients diagnosis and treatment plan with Jocelynn NEW and agree with the information documented. In short, Mr. Amador is a 54 yo gentleman with cirrohosis admitted for monitoring after nausea and vomiting s/p embolization. Patient denies any new concerns at this and no further nausea on day of discharge. IR at [place] will not accept transfer at this time. Plan for OP follow up. Patient tolerating PO intake I spent a total of 15 minutes coordinating, documenting, and providing care for this patient excluding time spent in the performance of separately billed services. All of the aforementioned completed outside of collaborating with the assigned advanced practitioner for a full treatment plan. I have reviewed the advanced practitioner's documentation, and I agree with, and take responsibility for the plan of care
== END 2024-09-05 16:06 | disposition home or self-care (01) ==
LOC: ED 04:59 → EDINP 04:59 → 2E 08:37

== ENCOUNTER 2025-02-01 18:54 | Observation (INO) ==
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
[2025-02-01 19:27] LABS: Hematocrit (blood only) 18.6 % (42.0-52.0); Hemoglobin 6.0 g/dl (14.0-18.0); Mean Corpuscular Hemoglobin 28.8 pg (25.0-34.0); Mean Corpuscular Volume 89.4 fL (80.0-100.0); Platelet Count 225 K/uL (130-400); RDW Standard Deviation 72.5 fL (36.4-46.3); Red Blood Count 2.08 M/uL (4.70-6.10); White Blood Count 7.56 K/ul (4.8-10.8)
[2025-02-01] MEDS ORDERED: SODIUM CHLORIDE 0.9% 100 ML IV PRN (19:35)
[2025-02-01 19:40] LABS: Anisocytosis Present; Hypochromasia Present; Immature Granulocytes # (auto) 0.02 K/uL (0.01-0.20); Immature Granulocytes % (auto) 0.3 %
[2025-02-01] MEDS: ACETAMINOPHEN 1,000 MG/100 ML VIAL IV STA (19:40)
[2025-02-01 19:42] LABS: Alanine Aminotransferase 8.0 U/L (7-52); Albumin Globulin Ratio 0.6 (0.9-2); Alkaline Phosphatase 96.0 U/L (34-104); Anion Gap 7.0 (3-11); Bilirubin,Total 1.1 mg/dl (0.2-1.0); Blood Urea Nitrogen 33.0 mg/dl (6-23); Calcium 7.7 mg/dl (8.6-10.3); Carbon Dioxide 27.0 mmol/L (21-32); Chloride 100.0 mmol/L (98-107); Creatinine Clr Calc Pharmacy 64.3 ml/min; Globulin 3.7 gm/dl (2.5-4.0); Glucose 99.0 mg/dl (70-99(Fasting)); Lipase 175.0 U/L (11-82); Potassium 3.5 mmol/L (3.5-5.1); Sodium 134.0 mmol/L (136-145); Total Protein 6.0 gm/dl (6.0-8.3)
--- NOTE | 2025-02-01 19:49 | CT Scan Report ---
Clinical History: Trauma Technique: Axial computed tomography images were obtained of the brain from the vertex to the skull base without intravenous contrast. Findings: There is no sign of intracranial hemorrhage. There is normal moss-white matter differentiation with no sign of acute or old infarction. No midline shift or other form of herniation is identified. There is no hydrocephalus. No obvious mass lesion is seen on this noncontrast examination. The visualized portions of the orbits and paranasal sinuses appear unremarkable. The mastoid air cells appear clear Impression: Unremarkable noncontrast CT of the brain Electronically signed by Bob Harris 02-01-2025 7:48 PM
--- NOTE | 2025-02-01 19:53 | CT Scan Report ---
Clinical history: Trauma Technique: Axial computed tomography images were obtained of the cervical spine without intravenous contrast. Sagittal and coronal reconstructions were obtained Comparison is made to the prior CT dated 01/07/2025 Findings: No definite cervical spine fracture is identified. There is a mild T2 compression fracture that appears unchanged. No listhesis is seen. No focal osseous lesion is evident. There is atlantoaxial osteoarthritis At C2-3, no disc herniation is identified. There is no spinal stenosis. The neural foramen are patent At C3-4, there is mild spinal stenosis due to a disc bulge and a central disc herniation. The neural foramen are patent At C4-5, there is spinal stenosis due to a disc bulge and a right paracentral disc herniation. There is right neural foramen narrowing that may affect the right C5 nerve root At C5-6, there is spinal stenosis due to a disc bulge and a right paracentral disc protrusion. There is left greater than right neural foramen narrowing that may affect the left C6 nerve root At C6-7, there is mild spinal stenosis due to a disc bulge and a suspected small central disc protrusion. The neural foramen are patent At C7-T1,no disc herniation is identified. There is no spinal stenosis. The neural foramen are patent The visualized soft tissues of the neck appear unremarkable. No foreign body is seen Impression: 1. No definite cervical spine fracture 2. Spinal stenosis at C4-5 and C5-6 and to a lesser extent at C3-4 and C6-7 3. Right C4-5 and left C5-6 neural foramen narrowing, which may affect the exiting nerve roots 4. Unchanged old T2 compression fracture ACT 112: Positive. There are findings on this exam that require communication between the performing entity and the patient following Patient Test Result Information Act ([place] ACT 112) [place]. Electronically signed by Bob Harris 02-01-2025 7:52 PM
--- NOTE | 2025-02-01 19:56 | CT Scan Report ---
Clinical history: Trauma Technique: Axial computed tomography images were obtained of the chest without intravenous contrast Findings: There are 2 nodular opacities along the right minor fissure, measuring 5 mm and 3 mm. There is bilateral lower lobe atelectasis. There is a moderate sized left pleural effusion. There is no right pleural effusion or pneumothorax. There is no sign of pulmonary fibrosis or other diffuse interstitial process. No endobronchial lesion is seen There is no mediastinal, hilar, or axillary adenopathy. The thoracic aorta is of normal caliber. There is no pericardial effusion. There is coronary atherosclerosis. Gallstones are present. There is a large amount of ascites. There is a 1.2 cm right renal cyst. No definite rib fracture is seen. There is an acute comminuted fracture of the medial left clavicle with mild displacement of fracture fragments. No focal osseous lesion is evident Impression: 1. Comminuted fracture of the medial left clavicle 2. Moderate sized left pleural effusion and bilateral lower lobe atelectasis 3. Small right midlung nodules, likely benign. A follow-up chest CT could be obtained in 6 months 4. Large amount of ascites 5. Cholelithiasis 6. Right renal cyst ACT 112: Positive. There are findings on this exam that require communication between the performing entity and the patient following Patient Test Result Information Act ([place] ACT 112) guidelines. Electronically signed by Bob Harris 02-01-2025 7:56 PM
[2025-02-01 19:59] LABS: INR 1.1 (0.9-1.1); Partial Thromboplastin Time 30 Seconds (21-31); Prothrombin Time 12.3 Seconds (9.0-12.0)
--- NOTE | 2025-02-01 20:00 | CT Scan Report ---
Clinical history: Trauma Technique: Axial computed tomography images were obtained of the thoracic spine without intravenous contrast. Sagittal and coronal reconstructions were obtained Findings: There is a T10 compression fracture that is likely acute. There is loss of up to 30% of the vertebral body height. There is no retropulsion of bone into the spinal canal. There is a mild old compression fracture of the superior endplate of the T2 vertebral body. There is mild scoliosis. No listhesis is seen. No focal osseous lesion is evident. There is no definite sign of osteomyelitis From T1-2 through T7-8, there are mild disc bulges without spinal stenosis or definite nerve root compression At T8-9, there is mild spinal stenosis due to a disc bulge and a central disc protrusion. The neural foramen are patent At T9-10, there is mild spinal stenosis due to a disc bulge and a right paracentral disc protrusion. The neural foramen are patent At T10-11, there is a disc bulge without spinal stenosis. The neural foramen are patent At T11-12, there is a disc bulge without spinal stenosis. The neural foramen are patent Impression: 1. T10 compression fracture, likely acute 2. Mild old T2 compression fracture 3. Mild spinal stenosis at T8-9 and T9-10 ACT 112: Positive. There are findings on this exam that require communication between the performing entity and the patient following Patient Test Result Information Act ([place] ACT 112) guidelines. Electronically signed by Bob Harris 02-01-2025 7:59 PM
--- NOTE | 2025-02-01 20:39 | CT Scan Report ---
CT ABDOMEN and PELVIS without INTRAVENOUS CONTRAST HISTORY: Abdominal pain TECHNIQUE: CT abdomen and pelvis without contrast. IV CONTRAST: None ENTERIC CONTRAST: None. COMPARISON: CT abdomen pelvis September 04, 2024. FINDINGS: LOWER CHEST: Moderate left pleural fluid without significant interval change. Also redemonstrated are nodular densities in the right middle lobe of the lung measuring up to 4 mm, without significant change. LIVER: No focal lesion identified in this noncontrast study. Cirrhotic liver. Likely postprocedural material again seen. GALLBLADDER/BILIARY: Cholelithiasis without evidence of cholecystitis. No abnormal biliary dilatation. SPLEEN: Unremarkable. PANCREAS: Unremarkable. ADRENALS: Unremarkable. KIDNEYS: Redemonstrated multiple cystic lesions of the kidneys. Again, there is a somewhat complex appearing cystic lesion in the lower pole of the right kidney with calcifications measuring up to 3.7 cm.. No stones or hydronephrosis identified. PERITONEUM/RETROPERITONEUM. Large abdominopelvic ascites again seen. No lymphadenopathy by size criteria. No aortic aneurysm. GASTROINTESTINAL: No obstruction. Colonic diverticulosis without evidence of diverticulitis. There is wall thickening of the loops of small bowel in the a standing colon. Gastroesophageal varices with procedural material noted near the GE junction. REPRODUCTIVE: No suspicious pelvic mass identified. ABDOMINAL WALL: Anasarca. Small right inguinal hernia containing ascitic fluid. BONES: Compression fracture along the superior endplate of T9 vertebral body is new from the prior CT abdomen pelvis examination. IMPRESSION: No evidence of acute trauma to the abdomen or the pelvis. Redemonstrated sequela of advanced cirrhosis as above. Diffusely inflammatory changes of the hollow viscus may be due to portal hypertensive enterocolopathy. Redemonstration of the complex cystic lesion arising from the lower pole of the right kidney. If not already performed, recommend further evaluation with nonemergent renal mass protocol MRI Compression fracture along the superior endplate of T9 vertebral body is new from the prior CT abdomen pelvis examination. Electronically signed by Thierno Mcdaniel 02-01-2025 8:37 PM
--- NOTE | 2025-02-01 20:39 | CT Scan Report ---
CT CERVICAL THORACIC LUMBAR SPINE WITHOUT CONTRAST: HISTORY: PAIN TECHNIQUE: Noncontrast CT examination of the lumbar spine is performed. Coronal and sagittal reformats were created. COMPARISON: Lumbar spine CT January 07, 2025. FINDINGS: LUMBAR SPINE: No significant change in the compression fracture along the superior endplate of L1 vertebral body resulting in approximately 30% vertebral body height loss. No significant retropulsion is identified. No new vertebral body height loss. No acute traumatic fracture identified. There is no significant spondylolisthesis. Usual lumbar lordosis is preserved. Multilevel degenerative changes characterized by disc space loss, broad based disc bulge/herniations with endplate changes of the vertebral bodies with small marginal osteophytes as well as bilateral facet hypertrophy and thickening of the ligamentum flavum resulting in crowding of the subarticular recesses and narrowing of neural foramina worst at L4-S1. IMPRESSION: Redemonstrated compression fracture along the superior endplate of L1 vertebral body resulting in approximately 30% vertebral body height loss without significant retropulsion. No significant change since January 07, 2025 examination. No new vertebral body height loss or acute traumatic fracture identified in the lumbar spine. Electronically signed by Thierno Mcdaniel 02-01-2025 8:37 PM
--- NOTE | 2025-02-01 20:39 | XRay Report ---
HISTORY: Trauma TECHNIQUE: Portable AP radiograph of the chest. COMPARISON: Chest CT dated 02/01/2025. FINDINGS: Large layering left-sided pleural effusion with superimposed opacity involving the left lower lung.No pneumothorax. Clear right lung.Mild cardiomegaly. Left-sided aortic arch. Midline trachea. No acute osseous abnormality. Endovascular coiling overlying the midline upper abdomen. IMPRESSION: * Large layering left-sided pleural effusion with superimposed left lower lung airspace opacity, which could represent associated compressive atelectasis or pneumonia. * Cardiomegaly and mild vascular congestion. Electronically signed by Fadi Muñoz 02-01-2025 8:37 PM
[2025-02-01] MEDS: MoRPHine SULFATE 2 MG/ML CARP IV STA (23:53)
[2025-02-01] MEDS: PANTOprazole 40 MG/10 ML SYR IV ONE (23:54)
[2025-02-01] MEDS: LIDOCAINE 5% 1 PATCH TD STA (23:54)
[2025-02-02] MEDS ORDERED: NITROGLYCERIN SL 0.4 MG/TAB TAB SL PRN (00:26)
[2025-02-02] MEDS: CALCIUM GLUCONATE 1,000 MG/60 ML BAG IV STA (00:44)
[2025-02-02] MEDS: MoRPHine SULFATE 2 MG/ML CARP IV PRN (02:51)
--- NOTE | 2025-02-02 03:24 | History & Physical Report ---
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 atherosclerosis. Gallstones are present. There is a large amount of ascites. There is a 1.2 cm right renal cyst. No definite rib fracture is seen. There is an acute comminuted fracture of the medial left clavicle with mild displacement of fracture fragments. No focal osseous lesion is evident Impression: 1. Comminuted fracture of the medial left clavicle 2. Moderate sized left pleural effusion and bilateral lower lobe atelectasis 3. Small right midlung nodules, likely benign. A follow-up chest CT could be obtained in 6 months 4. Large amount of ascites 5. Cholelithiasis 6. Right renal cyst ACT 112: Positive. There are findings on this exam that require communication between the performing entity and the patient following Patient Test Result Information Act ([place] ACT 112) guidelines. Electronically signed by Bob Harris 02-01-2025 7:[address] 02/01/25 19:04 Clinical History: Trauma Technique: Axial computed tomography images were obtained of the brain from the vertex to the skull base without intravenous contrast. Findings: There is no sign of intracranial hemorrhage. There is normal moss-white matter differentiation with no sign of acute or old infarction. No midline shift or other form of herniation is identified. There is no hydrocephalus. No obvious mass lesion is seen on this noncontrast examination. The visualized portions of the orbits and paranasal sinuses appear unremarkable. The mastoid air cells appear clear Impression: Unremarkable noncontrast CT of the brain Electronically signed by Bob Harris 02-01-2025 7:[address] 02/01/25 19:04 Clinical history: Trauma Technique: Axial computed tomography images were obtained of the thoracic spine without intravenous contrast. Sagittal and coronal reconstructions were obtained Findings: There is a T10 compression fracture that is likely acute. There is loss of up to 30% of the vertebral body height. There is no retropulsion of bone into the spinal canal. There is a mild old compression fracture of the superior endplate of the T2 vertebral body. There is mild scoliosis. No listhesis is seen. No focal osseous lesion is evident. There is no definite sign of osteomyelitis From T1-2 through T7-8, there are mild disc bulges without spinal stenosis or definite nerve root compression At T8-9, there is mild spinal stenosis due to a disc bulge and a central disc protrusion. The neural foramen are patent At T9-10, there is mild spinal stenosis due to a disc bulge and a right paracentral disc protrusion. The neural foramen are patent At T10-11, there is a disc bulge without spinal stenosis. The neural foramen are patent At T11-12, there is a disc bulge without spinal stenosis. The neural foramen are patent Impression: 1. T10 compression fracture, likely acute 2. Mild old T2 compression fracture 3. Mild spinal stenosis at T8-9 and T9-10 ACT 112: Positive. There are findings on this exam that require communication between the performing entity and the patient following Patient Test Result Information Act ([place] ACT 112) guidelines. Electronically signed by Bob Harris 02-01-2025 7:59 PM Code Status & VTE Plan VTE Prophylaxis Plan VTE Prophylaxis will be ordered: Yes
[2025-02-02] MEDS: FUROSEMIDE 40 MG/4 ML VIAL IV ONE (04:39)
[2025-02-02] MEDS: POTASSIUM CHLORIDE CRTAB 20 MEQ TABCR PO STA ×2 (04:39→06:46)
[2025-02-02] MEDS: PANTOprazole 40 MG in DEXTROSE 5% MINI-B 100 ML IV SCH (05:37)
[2025-02-02] MEDS: cefTRIAXone SODIUM 2,000 MG/50 ML BAG IV SCH (05:38)
[2025-02-02 05:52] LABS: Hematocrit (blood only) 21.9 % (42.0-52.0); Hemoglobin 6.8 g/dl (14.0-18.0); Mean Corpuscular Hemoglobin 28.3 pg (25.0-34.0); Mean Corpuscular Volume 91.3 fL (80.0-100.0); Platelet Count 214 K/uL (130-400); RDW Standard Deviation 71.8 fL (36.4-46.3); Red Blood Count 2.40 M/uL (4.70-6.10); White Blood Count 8.32 K/ul (4.8-10.8)
[2025-02-02 06:02] LABS: Anion Gap 4.0 (3-11); Blood Urea Nitrogen 35.0 mg/dl (6-23); Calcium 7.5 mg/dl (8.6-10.3); Carbon Dioxide 27.0 mmol/L (21-32); Chloride 103.0 mmol/L (98-107); Creatinine Clr Calc Pharmacy 69.2 ml/min; Glucose 114.0 mg/dl (70-99(Fasting)); Magnesium 2.5 mg/dl (1.7-2.4); Potassium 3.4 mmol/L (3.5-5.1); Sodium 134.0 mmol/L (136-145)
[2025-02-02] MEDS ORDERED: SODIUM CHLORIDE 0.9% 100 ML IV PRN (06:06)
[2025-02-02 06:13] LABS: Anisocytosis Present; Immature Granulocytes # (auto) 0.05 K/uL (0.01-0.20); Immature Granulocytes % (auto) 0.6 %; Polychromasia 2+
--- NOTE | 2025-02-02 06:24 | Ultrasound Report ---
EXAM: US venous doppler LE BI CLINICAL HISTORY: Bilateral lower ext edema. evaluate dvt prior 02/26/2024 TECHNIQUE: Grayscale ultrasound, with and without compression, and color Doppler spectral waveform analysis were performed of the deep veins of the bilateral lower extremities from the level of the common femoral veins to the level of the popliteal veins. The posterior tibial and peroneal veins were also scanned. COMPARISON: 02/26/2024 00:20:27 [employer] FINDINGS: Bilateral external iliac, common femoral veins, superficial and femoral veins and popliteal veins are compressible and opacify at color Doppler evaluation with no evidence of deep vein thrombosis. There is no evidence of DVT in the visualized portions of the posterior tibial and peroneal veins. Subcutaneous oedema over bilateral thigh and calf. IMPRESSION: 1. Negative for deep vein thrombosis. 2. Subcutaneous oedema over bilateral thigh and calf. No interval new change. Electronically signed by Toby Frausto 02-02-2025 06:24 AM
[2025-02-02] MEDS: CHOLECALCIFEROL 25 MCG (1000 UNITS) TAB PO SCH (07:25)
[2025-02-02] MEDS: SPIRONOLACTONE 100 MG TAB PO SCH (07:26)
[2025-02-02] MEDS: FLUTICASONE FUROATE 100MCG 14 PUFFS/INHALER INH SCH (07:26)
[2025-02-02] MEDS: LACTULOSE SYRUP 20 GM/30 ML UDC PO SCH (07:27)
[2025-02-02] MEDS: GABAPENTIN 300 MG CAP PO SCH (07:27)
[2025-02-02] MEDS: CALCIUM 600MG + VIT D 400 IU TAB PO SCH (07:28)
[2025-02-02] MEDS: FOLIC ACID 1 MG TAB PO SCH (07:28)
[2025-02-02] MEDS: MIDODRINE HCL 2.5 MG TAB PO SCH (07:28)
[2025-02-02] MEDS: REMOVE LIDODERM PATCH SCH (07:29)
--- NOTE | 2025-02-02 08:54 | XRay Report ---
XR shoulder LT min 2V routine CLINICAL HISTORY: Left clavicle injury. COMPARISON: Chest CT February 01, 2025. FINDINGS: An acute moderately comminuted mildly displaced proximal left clavicular fracture is noted . This is similar to CT of February 01, 2025. This extends to the sternoclavicular joint. There is no dist al left clavicular fracture. Alignment of the left acromioclavicular and glenohumeral joints is anato charlee. A layering left pleural effusion is incidentally noted. IMPRESSION: Acute moderately comminuted mildly displaced proximal left clavicular fracture. ACT 112: Negative or not required by law. Electronically signed by: Frank Blevins M.D. 02/02/2025 8:52 AM
[2025-02-02] MEDS ORDERED: TORSEMIDE 20 MG TAB PO SCH (09:00)
[2025-02-02] MEDS ORDERED: PANTOprazole 40 MG/10 ML SYR IV SCH (09:00)
[2025-02-02] MEDS: NICOTINE 21 MG/24 HR TDSY TD SCH (09:16)
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
[2025-02-02] MEDS: FUROSEMIDE 40 MG/4 ML VIAL IV SCH (09:45)
[2025-02-02] MEDS: REMOVE NICODERM PATCH SCH (09:45)
[2025-02-02 10:59] LABS: Hematocrit (blood only) 25.7 % (42.0-52.0); Hemoglobin 8.3 g/dl (14.0-18.0)
[2025-02-02] MEDS: COUGH DROP (SUGAR FREE) LOZ 24 LOZ/1 BOX BUCCAL PRN (11:27)
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
[2025-02-02] MEDS: COUGH DROP (SUGAR FREE) LOZ 24 LOZ/1 BOX BUCCAL ONE (13:01)
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
[2025-02-02] MEDS: ERGOCALCIFEROL 1250 MCG (50,000 UNITS) CAP PO SCH (13:23)
[2025-02-02] MEDS: CALCIUM CARBONATE 500 MG CHEWABLE TAB PO SCH (20:22)
[2025-02-02] MEDS: LIDOCAINE 5% 1 PATCH TD SCH (20:22)
[2025-02-02] MEDS ORDERED: REMOVE LIDODERM PATCH SCH (21:00)
[2025-02-03 06:24] LABS: Hematocrit (blood only) 26.0 % (42.0-52.0); Hemoglobin 8.2 g/dl (14.0-18.0); Mean Corpuscular Hemoglobin 28.4 pg (25.0-34.0); Mean Corpuscular Volume 90.0 fL (80.0-100.0); Platelet Count 205 K/uL (130-400); RDW Standard Deviation 69.0 fL (36.4-46.3); Red Blood Count 2.89 M/uL (4.70-6.10); White Blood Count 6.92 K/ul (4.8-10.8)
[2025-02-03 06:46] LABS: INR 1.2 (0.9-1.1); Prothrombin Time 12.7 Seconds (9.0-12.0)
[2025-02-03 06:59] LABS: Alanine Aminotransferase 8.0 U/L (7-52); Albumin Globulin Ratio 0.6 (0.9-2); Alkaline Phosphatase 75.0 U/L (34-104); Anion Gap 6.0 (3-11); Bilirubin,Total 1.5 mg/dl (0.2-1.0); Blood Urea Nitrogen 34.0 mg/dl (6-23); Calcium 7.7 mg/dl (8.6-10.3); Carbon Dioxide 27.0 mmol/L (21-32); Chloride 100.0 mmol/L (98-107); Creatinine Clr Calc Pharmacy 61.4 ml/min; Globulin 3.7 gm/dl (2.5-4.0); Glucose 115.0 mg/dl (70-99(Fasting)); Magnesium 2.1 mg/dl (1.7-2.4); Potassium 3.9 mmol/L (3.5-5.1); Sodium 133.0 mmol/L (136-145); Total Protein 6.0 gm/dl (6.0-8.3)
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
--- NOTE | 2025-02-03 11:32 | Gastroenterology Progress Note ---
Date of Service February 03, 2025 Assessment & Plan (1) Anemia: Plan: H/H currently 8.2/26.0. Last EGD he estimates to have been done within the last 1 month. He is not currently overtly bleeding. No immediate plans for EGD as discussed by Dr. Paiz on 02/02/25. Continue to monitor H/H and monitor for overt GI blood loss. (2) Decompensated cirrhosis: Plan: 2/2 alcohol. He has had esophageal varices, portal gastropathy, and refractory ascites. He is following closely at [facility] and is currently awaiting TIPS and completion of transplant eval. At this time, he had 8L of ascites removed. 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 He will continue to avoid alcohol, continue his outpatient hepatology meds, & limit sodium intake. Await fluid studies from his paracentesis. Admission and Anticipated Discharge Date Admission Date: February 01, 2025 Supervising Physician Co-Signing Physician Notes I saw and examined this patient with our nurse practitioner and agree with her assessment and plan. Feels much better post paracentesis. No signs of significant GI bleeding at the present time. No encephalopathy noted. Possible discharge tomorrow with follow-up with hepatology and further evaluation of possible liver transplant. Subjective Patient is a 54 yo male with decompensated cirrhosis and anemia hospitalized with clavicle fracture. H/H 8.2/26.0 today. No overt GI bleeding. He had 8 L removed with paracentesis. No new issues at present. Review of Systems Constitutional: no fever and no chills Respiratory: no cough and no dyspnea Cardiovascular: no chest pain Gastrointestinal: no abdominal pain, no coffee ground emesis, no hematemesis and no blood in stools Psychiatric: no problem reported Physical Exam Constitutional: well developed Respiratory: normal respiratory effort Cardiovascular: Rate/Rhythm: regular rate Gastrointestinal (Abdomen): Percussion/Palpation: abdomen soft; abdomen nontender Psychiatric: Orientation: alert and oriented x 3 Results & Data Results & Data Vital Signs (Past 12 Hours) Vital Signs Temp Pulse Pulse Resp BP Pulse Ox O2 Del Method 02/03/25 10:40 36.5 C 79 18 140/74 92 Room Air 02/03/25 07:58 36.8 C 73 20 148/83 H 93 Room Air 02/03/25 07:19 Room Air 02/03/25 07:09 81 02/03/25 03:51 36.9 C 81 18 127/73 93 Room Air 02/03/25 00:21 37.3 C 86 18 125/70 93 Room Air PG Care Time/CCT Total # of Minutes Spent Total Time Spent with Patient: Total time spent is greater than 50% in coordination of care (as documented) at patient's floor/unit and/or counseling patient: Coding Level of Care Code 30977 SUB INP/OBS CARE 3/50MIN Diagnoses Anemia D64.9 Decompensated cirrhosis K72.90; K74.60
[2025-02-03] MEDS: ALBUMIN 25% 25 GM/100 ML VIAL IV SCH (12:06)
[2025-02-03 12:14] LABS: Albumin Peritoneal Fluid < 1.5 gm/dl
[2025-02-03 12:15] LABS: Appearance Peritoneal Fluid Cloudy; Color Peritoneal Fluid Yellow; RBC Peritoneal Fluid Auto 2000 /uL; WBC Peritoneal Fluid Auto 57 /ul (0-300)
[2025-02-03 12:57] LABS: Lymphocytes, Fluid 53 %; Mono,Macrophage,Mesothelial 43 %; Neutrophils, Fluid 4 %
--- NOTE | 2025-02-03 13:37 | Ultrasound Report ---
ULTRASOUND-GUIDED PARACENTESIS CLINICAL HISTORY: Ascites PROCEDURE: Procedure and risks were explained. Informed consent was obtained. A final timeout was com pleted. A pocket of ascites was identified in the right lower quadrant. The right lower quadrant was prepped and draped in sterile fashion. 1% lidocaine was utilized for skin anesthesia. Utilizing ultrasound guidance, a 5 [place] safety centesis catheter was advanced into the pocket of as cites. Ultrasound image was obtained. A total of 9.2 L of yellow ascites fluid was removed and discar ded. The catheter was removed and Band-Aid applied. The patient tolerated the procedure well. Vital s igns will be monitored postprocedure. IMPRESSION: Ultrasound-guided paracentesis as above. Performed, dictated, and signed by Colten Rivas PA-C; to be co-signed by Dr. Frank Blevins. Electronically signed by: Frank Blevins M.D. 02/03/2025 3:19 PM
[2025-02-03] MEDS: BENZONATATE 100 MG CAPSULE PO PRN (15:22)
[2025-02-03] MEDS: PANTOprazole 40 MG/10 ML SYR IV SCH (21:22)
[2025-02-04 03:13] VITALS: RESP 18
[2025-02-04 05:44] LABS: Hematocrit (blood only) 23.3 % (42.0-52.0); Hemoglobin 7.5 g/dl (14.0-18.0); Mean Corpuscular Hemoglobin 28.7 pg (25.0-34.0); Mean Corpuscular Volume 89.3 fL (80.0-100.0); Platelet Count 184 K/uL (130-400); RDW Standard Deviation 67.2 fL (36.4-46.3); Red Blood Count 2.61 M/uL (4.70-6.10); White Blood Count 8.35 K/ul (4.8-10.8)
[2025-02-04 06:09] LABS: Alanine Aminotransferase 5.0 U/L (7-52); Albumin Globulin Ratio 0.8 (0.9-2); Alkaline Phosphatase 66.0 U/L (34-104); Blood Urea Nitrogen 34.0 mg/dl (6-23); Creatinine Clr Calc Pharmacy 53.9 ml/min; Globulin 3.1 gm/dl (2.5-4.0); Glucose 120.0 mg/dl (70-99(Fasting)); INR 1.2 (0.9-1.1); Prothrombin Time 12.9 Seconds (9.0-12.0); Total Protein 5.5 gm/dl (6.0-8.3)
[2025-02-04 06:13] LABS: Anion Gap 7.0 (3-11); Bilirubin,Total 1.4 mg/dl (0.2-1.0); Calcium 7.7 mg/dl (8.6-10.3); Carbon Dioxide 25.0 mmol/L (21-32); Chloride 100.0 mmol/L (98-107); Magnesium 2.0 mg/dl (1.7-2.4); Potassium 4.2 mmol/L (3.5-5.1); Sodium 132.0 mmol/L (136-145)
[2025-02-04 07:38] VITALS: PULSE 79; TEMP 98.6; O2SAT 94
[2025-02-04 08:50] LABS: Hematocrit (blood only) 24.1 % (42.0-52.0); Hemoglobin 7.7 g/dl (14.0-18.0)
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
--- NOTE | 2025-02-04 11:25 | Orthopedic Progress Note ---
Date of Service February 04, 2025 Assessment & Plan (1) Closed left clavicular fracture: Plan: The patient was educated regarding today's findings. Conservative care measures were discussed. Continue use of the arm sling. Because of his cirrhosis he may need longer immobilization as his healing will be slower than normal. He understands that this will likely be 6 to 8 weeks. He can remove the sling to shower and to do gentle range of motion exercises. No lifting with the left upper extremity. Follow-up in the orthopedic clinic in 2 weeks with left clavicle x-rays. Continue with ice application and elevation. He may use Motrin every 6 hours as needed for discomfort. Call the office with any other concerns. He is fine for discharge from an orthopedic standpoint. Admission and Anticipated Discharge Date Admission Date: February 01, 2025 Subjective This 54-year-old male was seen today in his room. He states he is being disch arged within the next few hours. He states he is left clavicle is only mildly bothersome. It only is problematic if he moves quickly. He states he can now put his arm over his head. No other complaints at this point. Physical Exam Physical Exam: General: Well-developed, well-nourished, middle-aged male, in no acute distress. Sitting on his bed. Alert and oriented. Skin: Warm and dry with good turgor. No rashes. Mild ecchymosis is present over the medial aspect of his left clavicle, near the sternoclavicular joint. There is mild edema as well. Musculoskeletal: The patient has supple motion of his left digits, wrist, elbow, and shoulder. He is able to forward extend to approximately 140 degrees. He has minimal discomfort as long as it is done slowly. He has good internal and external rotation of the arm with his elbow at the side. There is no tenderness with palpation over the AC joint or midshaft clavicle. He is tender over the medial clavicle and sternoclavicular joint. Neurologic: Gross sensation is intact across the left arm by soft touch. Peripheral pulses are 2+. Results & Data Vital Signs (Past 12 Hours) Vital Signs Temp Pulse Resp BP Pulse Ox O2 Del Method 02/04/25 07:58 Room Air 02/04/25 07:37 37.0 C 79 18 137/76 94 Room Air 02/04/25 03:13 37.3 C 81 18 132/71 93 Room Air
[2025-02-04 11:59] VITALS: BP 110/57
== END 2025-02-04 11:40 | disposition home or self-care (01) | DRG 988 ==
LOC: ED 18:54 → INTOOBSV 23:12 → 4W 23:12

== ENCOUNTER 2025-02-18 16:17 | Observation (INO) ==
--- NOTE | 2025-02-18 16:35 | Emergency Department Note ---
ED Provider Note CHIEF COMPLAINT: Leg injury HISTORY OF PRESENTING ILLNESS: The patient is a 54-year-old male who arrives to the emergency department for evaluation of severe pain after having a diagnosed fracture of the lower extremity. He reports he was sent home with a home pack of oxycodone, and believes the provider was going to send him a prescription to the pharmacy. REVIEW OF SYSTEMS: See HPI for pertinent positives and pertinent negatives. ALLERGIES: See below MEDICATIONS: See below PAST MEDICAL HISTORY: See below PHYSICAL EXAM: [] DIFFERENTIAL DIAGNOSIS: [] ED COURSE AND MEDICAL DECISION MAKING: HISTORY FROM INDEPENDENT HISTORIAN: [] MEDICATIONS GIVEN: [] MONITOR: Continuous cardiac cath lab radiology technologist: Order was placed for continuous cardiac cath lab radiology technologist. Patient was placed on the cardiac cath lab radiology technologist and continuous pulse ox. Patient was noted to be in normal sinus rhythm at an initial rate of [] bpm per my interpretation. EKG: EKG was interpreted by myself as []. INTERPRETATION OF LABS: I interpreted the labs with full lab results as below in the lab section of this note. Pertinent lab results discussed in the MDM section below. INTERPRETATION OF IMAGING: Imaging studies were interpreted by myself and read by radiology as per the imaging section of this note. EXTERNAL RECORDS REVIEWED: [] CHRONIC MEDICAL/SOCIAL CONDITIONS AFFECTING CARE: [] ESCALATION OF CARE CONSIDERED: [] CONSULTATIONS: [] PROCEDURES: [] MDM SUMMARY: The patient is a pleasant, [] who arrives to the emergency department for evaluation of the above-stated complaint. []. DIAGNOSIS: [] The chart was completed utilizing [employer] Speech voice recognition software. Grammatical errors, random word insertions, pronoun errors, and incomplete sentences are an occasional consequence of this system due to software limitations, ambient noise, and hardware issues. Any formal questions or concerns about the content, text, or information contained within the body of this dictation should be directly addressed to the provider for clarification. TREATMENT PLAN/DISCHARGE INSTRUCTIONS: [] Past Med/Surg History Problem List Non-healing wound of right lower extremity (Acute) Cellulitis (Acute) Closed fibular fracture (Acute) Closed left clavicular fracture Hypocalcemia (Acute) Compression fx, thoracic spine (Acute) Fracture, clavicle (Acute) Abrasion of arm, left (Acute) Cirrhosis (Acute) Abdominal ascites (Acute) Anemia (Acute) Vitamin D deficiency due to chronic kidney disease Acute on chronic blood loss anemia Compression fracture of L1 vertebra CKD (chronic kidney disease), stage IV Decompensated cirrhosis Acute on chronic anemia Anemia (Acute) Fall (Acute) Dizziness (Acute) Acute colitis Nausea and vomiting Ascites due to alcoholic cirrhosis Vomiting (Acute) Symptomatic anemia Hyperammonemia (Acute) Acute hyperkalemia (Acute) Acute hyponatremia (Acute) Weakness (Acute) Anemia (Acute) GRACIELA (acute kidney injury) (Acute) GI bleed (Acute) Dysphagia Chronic kidney disease, stage 4 (severe) Hypoalbuminemia (Acute) Low hemoglobin (Acute) History of upper gastrointestinal bleeding Hepatorenal syndrome Anemia (Acute) Abdominal ascites (Acute) SOB (shortness of breath) (Acute) Abdominal distension (Acute) GRACIELA (acute kidney injury) UGIB (upper gastrointestinal bleed) GAVE (gastric antral vascular ectasia) Esophagitis PAF (paroxysmal atrial fibrillation) Positive blood culture CKD (chronic kidney disease) stage 4, GFR 15-29 ml/min Severe sepsis Symptomatic anemia (Acute) Metabolic encephalopathy (Acute) Alcoholic cirrhosis of liver with ascites (Acute) Abdominal ascites (Acute) Blunt trauma of nose Blunt trauma of face Hypoxia (Acute) Pancytopenia (Acute) Influenza A (Acute) Tobacco use Hypomagnesemia (Acute) Hyponatremia (Acute) Hypokalemia (Acute) Multifocal pneumonia (Acute) Sepsis (Acute) Encounter for pre-operative examination Alcohol use (Acute) Fall (Acute) Medical History Hypervolemia Symptomatic anemia hospitalized [facility] 02/26/24 for issues related to this Poor historian main details obtained from [place] med record Alcoholic cirrhosis of liver with ascites hospitalized [facility] 02/26/24 for issues related to this Metabolic encephalopathy hospitalized [facility] 02/26/24 for issues related to this PAF (paroxysmal atrial fibrillation) pt denies; hospitalized [facility] 02/26/24, evaluated by tae garcia per cardio consult Esophagitis History of severe sepsis hospitalized 02/26/24, [facility] 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 per med record; hospitalized [facility] 02/26/24 for issues related to this Orthostatic hypotension "he thinks" COPD (chronic obstructive pulmonary disease) History of pneumonia 07/2023, 02/26/24, hospitalized [facility] 02/26/24 for issues related to this S/P abdominal paracentesis 03/21/2024, [facility] Current every day smoker Surgical History History of esophagogastroduodenoscopy (EGD) S/P cataract extraction right eye/left History of tonsillectomy History of hernia surgery infancy Family History Mother Stroke Diabetes Other Colorectal cancer Heart disease Social History Smoking Status: Current every day smoker Tobacco Type: Cigarettes Cigarettes Per Day: 1.5-2; Second Hand Exposure: No; Do You Dip or Chew Tobacco: No; Hx Alcohol Use: No Hx Substance Use: No Preferred Language: Lao Communication Ability: Effective Parachute Repairer Required: No Beliefs That Will Affect Care: None Current Living Situation: Alone Current Living Situation Comment: lives in camper/tent Feels Safe at Home: Yes Assistive Devices: None Allergies Allergies Allergy/AdvReac Type Severity Reaction Status Date / Time Penicillins Allergy Unknown pt unsure Verified 09/04/24 08:29 of reaction Home Meds Home Medications Medication Instructions Recorded Confirmed calcium 600 mg (as 1 tab PO BID 02/01/25 02/01/25 carbonate)-vitamin D3 10 mcg (400 unit) tablet (Calcium 600 + D(3)) fluticasone furoate 100 1 inh inhalation DAILY 02/01/25 02/01/25 mcg/actuation blister powder for inhalation (Arnuity Ellipta) folic acid 1 mg tablet 1 mg PO DAILY 02/01/25 02/01/25 gabapentin 300 mg capsule 300 mg PO TID 02/01/25 02/01/25 hydroxyzine HCl 10 mg tablet 10 mg PO Q6H PRN Itching 02/01/25 02/01/25 lactulose 10 gram/15 mL oral 30 ml PO BID 02/01/25 02/01/25 solution (Constulose) midodrine 5 mg tablet 5 mg PO TID 02/01/25 02/01/25 pantoprazole 40 mg tablet,delayed 40 mg PO BID 02/01/25 02/01/25 release spironolactone 100 mg tablet 100 mg PO DAILY 02/01/25 02/01/25 torsemide 20 mg tablet 40 mg PO BID 02/01/25 02/01/25 trazodone 50 mg tablet 50 mg PO HS 02/01/25 02/01/25 rifaximin 550 mg tablet 550 mg PO BID 02/02/25 02/02/25 Previous Rx's Medication Instructions Recorded ergocalciferol (vitamin D2) 1,250 1,250 mcg PO Q7D #6 caps 02/04/25 mcg (50,000 unit) capsule oxycodone 5 mg tablet 5 mg PO TID PRN pain #10 tabs 02/04/25 clindamycin HCl 150 mg capsule 450 mg (3 x 150 mg) PO Q8H 7 days 02/16/25 #63 caps Results & Data (ED) Vital Signs Vital Signs - 24 hr 02/18/25 16:23 Temperature 37.1 C Temperature Source Temporal Artery Scan Pulse Rate 85 Respiratory Rate 18 Respiratory Effort / Characteristics Non-Labored Spontaneous Respiratory Depth Normal Respiratory Pattern Regular Blood Pressure 128/77 Blood Pressure Mean 94 Pulse Oximetry 99 Oxygen Delivery Method Room Air Sepsis Recent Fever Within 48 Hours No Sepsis New/Unexplained Change in Mental Status N/A Sepsis Action Taken by Nursing No Action Required Discharge Plan Visit Data Chief Complaint: Leg Injury/Pain Stated Complaint: BROKEN LEG NOT GETTING BETTER ED Provider: Elinor Fajardo ED Midlevel Provider: Yudith Florence Forms Stand Alone Forms: [facility] Prescriptions Prescriptions: No Action torsemide 20 mg tablet 40 mg PO BID trazodone 50 mg tablet 50 mg PO HS spironolactone 100 mg tablet 100 mg PO DAILY midodrine 5 mg tablet 5 mg PO TID pantoprazole 40 mg tablet,delayed release (DR/EC) 40 mg PO BID gabapentin 300 mg capsule 300 mg PO TID folic acid 1 mg tablet 1 mg PO DAILY hydroxyzine HCl 10 mg tablet 10 mg PO Q6H PRN (Reason: Itching) lactulose [Constulose] 10 gram/15 mL solution 30 ml PO BID Arnuity Ellipta 100 mcg/actuation blister with device 1 inh INHALATION DAILY calcium carbonate-vitamin D3 [Calcium 600 + D(3)] 600 mg-10 mcg (400 unit) Tablet 1 tab PO BID rifaximin 550 mg Tablet 550 mg PO BID ergocalciferol (vitamin D2) 1,250 mcg (50,000 unit) Capsule 1,250 mcg PO Q7D Qty: 6 0RF oxycodone 5 mg tablet 5 mg PO TID PRN (Reason: pain) Qty: 10 0RF clindamycin HCl 150 mg capsule 450 mg PO Q8H 7 Days Qty: 63 0RF Referrals Referrals: Rina Neil PA-C [Primary Care Provider] -
[2025-02-18] MEDS ORDERED: VANCOMYCIN CONSULT ACTIVE PRN (16:53)
[2025-02-18 17:09] LABS: Hematocrit (blood only) 24.6 % (42.0-52.0); Hemoglobin 8.0 g/dl (14.0-18.0); Immature Granulocytes # (auto) 0.07 K/uL (0.01-0.20); Immature Granulocytes % (auto) 0.7 %; Mean Corpuscular Hemoglobin 29.0 pg (25.0-34.0); Mean Corpuscular Volume 89.1 fL (80.0-100.0); Platelet Count 260 K/uL (130-400); RDW Standard Deviation 64.8 fL (36.4-46.3); Red Blood Count 2.76 M/uL (4.70-6.10); White Blood Count 9.77 K/ul (4.8-10.8)
[2025-02-18] MEDS: CIPROFLOXACIN / D5W 400 MG/200 ML BAG IV STA (17:18)
[2025-02-18 17:26] LABS: Alanine Aminotransferase 9.0 U/L (7-52); Albumin Globulin Ratio 0.7 (0.9-2); Alkaline Phosphatase 114.0 U/L (34-104); Anion Gap 7.0 (3-11); Bilirubin,Total 1.3 mg/dl (0.2-1.0); Blood Urea Nitrogen 48.0 mg/dl (6-23); Calcium 7.8 mg/dl (8.6-10.3); Carbon Dioxide 25.0 mmol/L (21-32); Chloride 96.0 mmol/L (98-107); Creatinine Clr Calc Pharmacy 55.4 ml/min; Globulin 3.9 gm/dl (2.5-4.0); Glucose 106.0 mg/dl (70-99(Fasting)); Potassium 4.0 mmol/L (3.5-5.1); Sodium 128.0 mmol/L (136-145); Total Protein 6.7 gm/dl (6.0-8.3)
[2025-02-18 17:51] LABS: INR 1.1 (0.9-1.1); Partial Thromboplastin Time 30 Seconds (21-31); Prothrombin Time 11.9 Seconds (9.0-12.0)
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
[2025-02-18] MEDS: FUROSEMIDE 40 MG/4 ML VIAL IV ONE (18:45)
[2025-02-18] MEDS: VANCOMYCIN HCL 1,750 MG in SODIUM CHLORIDE 0.9% 500 ML IV ONE (19:19)
[2025-02-18] MEDS ORDERED: ACETAMINOPHEN 325 MG TAB PO PRN (21:19)
[2025-02-18] MEDS ORDERED: MELATONIN 3 MG TAB PO PRN (21:19)
[2025-02-18] MEDS ORDERED: ALBUT/IPRATROP 3MG/0.5MG NEB 3 ML VIAL NEB PRN (21:19)
[2025-02-18] MEDS ORDERED: POLYETHYLENE (MIRALAX) 17 GM PACK PO PRN (21:19)
[2025-02-18] MEDS ORDERED: PROMETHAZINE 12.5 MG/50.5 ML BAG IV PRN (21:19)
[2025-02-18] MEDS: CEFEPIME 2000MG 2,000 MG/20 ML SYR IV SCH (21:40)
[2025-02-18] MEDS: NICOTINE 21 MG/24 HR TDSY TD SCH (22:24)
[2025-02-18 22:50] VITALS: RESP 16
[2025-02-19 02:52] VITALS: BP 101/59; PULSE 77; TEMP 97.9; O2SAT 94
--- NOTE | 2025-02-19 08:26 | Communication Note ---
Date of Service: February 19, 2025 Patient wanted to go home and followup with his PCP. Advised to stay until am but patient declined. Told patient he may fall again, his infection may worsen and he may even but was ok with it and was adamant on going home and signed out AMA.
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
[2025-02-19] MEDS ORDERED: REMOVE NICODERM PATCH SCH (08:59)
[2025-02-19] MEDS ORDERED: FUROSEMIDE 40 MG TAB PO SCH (09:00)
[2025-02-19] MEDS ORDERED: ADVANCED PROBIOTIC 625 MG CAPSULE PO SCH (09:00)
[2025-02-19] MEDS ORDERED: ERGOCALCIFEROL 1250 MCG (50,000 UNITS) CAP PO SCH (09:00)
== END 2025-02-19 04:00 | disposition left against medical advice (07) ==
LOC: ED 16:17 → INTOOBSV 18:06 → 2N 18:06

== ENCOUNTER 2025-02-24 18:36 | Observation (INO) ==
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
[2025-02-24] MEDS ORDERED: VANCOMYCIN CONSULT ACTIVE PRN (18:59)
[2025-02-24] MEDS ORDERED: SODIUM CHLORIDE 0.9% 100 ML IV PRN (19:23)
[2025-02-24 19:24] LABS: Hematocrit (blood only) 21.0 % (42.0-52.0); Hemoglobin 6.8 g/dl (14.0-18.0); Mean Corpuscular Hemoglobin 28.9 pg (25.0-34.0); Mean Corpuscular Volume 89.4 fL (80.0-100.0); Platelet Count 218 K/uL (130-400); RDW Standard Deviation 64.1 fL (36.4-46.3); Red Blood Count 2.35 M/uL (4.70-6.10); White Blood Count 10.72 K/ul (4.8-10.8)
[2025-02-24 19:33] LABS: Alanine Aminotransferase 10 U/L (7-52); Albumin Globulin Ratio 0.6 (0.9-2); Alkaline Phosphatase 106 U/L (34-104); Anion Gap 7 (3-11); Bilirubin,Total 1.8 mg/dl (0.2-1.0); Blood Urea Nitrogen 51 mg/dl (6-23); Calcium 7.8 mg/dl (8.6-10.3); Carbon Dioxide 23 mmol/L (21-32); Chloride 95 mmol/L (98-107); Globulin 4.2 gm/dl (2.5-4.0); Glucose 98 mg/dl (70-99(Fasting)); Lipase 80 U/L (11-82); Potassium 4.9 mmol/L (3.5-5.1); Sodium 125 mmol/L (136-145); Total Protein 6.7 gm/dl (6.0-8.3)
[2025-02-24 19:48] LABS: Anisocytosis Present; Immature Granulocytes # (auto) 0.06 K/uL (0.01-0.20); Immature Granulocytes % (auto) 0.6 %
[2025-02-24 19:49] LABS: INR 1.2 (0.9-1.1); Partial Thromboplastin Time 34 Seconds (21-31); Prothrombin Time 12.9 Seconds (9.0-12.0)
[2025-02-24] MEDS: VANCOMYCIN HCL 2,000 MG in SODIUM CHLORIDE 0.9% 500 ML IV ONE (19:58)
[2025-02-24] MEDS: FUROSEMIDE 40 MG/4 ML VIAL IV ONE (20:04)
[2025-02-24] MEDS: CEFEPIME 2000MG 2,000 MG/20 ML SYR IV STA (20:05)
[2025-02-24] MEDS: SODIUM CHLORIDE 0.9% 100 ML IV PRN (20:30)
[2025-02-24 21:35] LABS: Appearance Urine Clear (Clear); Bacteria Urine Automated None Seen (None Seen); Epithelial Cell Urine Auto 0-2 /hpf (0-2); Glucose Urine UA Negative (Negative); RBC Urine Automated 0-2 /hpf (0-2); WBC Urine Automated 0-5 /hpf (0-5)
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
[2025-02-24] MEDS ORDERED: MoRPHine SULFATE 2 MG/ML CARP IV PRN (22:31)
[2025-02-24] MEDS ORDERED: NALOXONE HCL 0.4 MG/1 ML VIAL/CARP IV PRN (22:31)
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
[2025-02-24] MEDS: CALCIUM GLUCONATE 1,000 MG/60 ML BAG IV STA (23:49)
[2025-02-24 23:54] LABS: Magnesium 2.5 mg/dl (1.7-2.4)
[2025-02-25 00:23] LABS: Albumin Peritoneal Fluid < 1.5 gm/dl
[2025-02-25 00:24] LABS: Appearance Peritoneal Fluid Cloudy; Color Peritoneal Fluid Yellow; RBC Peritoneal Fluid Auto 4000 /uL; WBC Peritoneal Fluid Auto 110 /ul (0-300)
[2025-02-25] MEDS ORDERED: ONDANSETRON INJ 2 MG/ML 2 ML VIAL IV PRN (00:52)
[2025-02-25] MEDS ORDERED: POLYETHYLENE (MIRALAX) 17 GM PACK PO PRN (00:52)
[2025-02-25 01:11] LABS: Thyroid Stimulating Hormone 1.184 uIu/ml (0.300-4.500)
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
[2025-02-25] MEDS ORDERED: STAT IV/IM STA (02:18)
[2025-02-25 02:40] LABS: Hematocrit (blood only) 21.1 % (42.0-52.0); Hemoglobin 6.8 g/dl (14.0-18.0); Mean Corpuscular Hemoglobin 28.5 pg (25.0-34.0); Mean Corpuscular Volume 88.3 fL (80.0-100.0); Platelet Count 177 K/uL (130-400); RDW Standard Deviation 61.9 fL (36.4-46.3); Red Blood Count 2.39 M/uL (4.70-6.10); White Blood Count 10.71 K/ul (4.8-10.8)
[2025-02-25] MEDS ORDERED: SODIUM CHLORIDE 0.9% 100 ML IV PRN (02:45)
[2025-02-25] MEDS: OCTREOTIDE ACETATE 500 MCG in SODIUM CHLORIDE 0.9% 100 ML IV SCH (02:59)
[2025-02-25] MEDS: FUROSEMIDE INJ 20 MG/2 ML VIAL IV ONE (03:00)
--- NOTE | 2025-02-25 04:30 | Procedure Note ---
Procedure Note Date of Service February 25, 2025 INDICATION: ascites PROCEDURE COMB CAPPER: Isaac Carcamo ATTENDING PHYSICIAN: Isaac Carcamo Ultrasound used to tae location: yes CONSENT: During the informed consent discussion regarding the procedure, or treatment, I explained the following to the patient/designee: a. Nature of the procedure or treatment and who will perform the procedure or treatment. b. Necessity for procedure and the possible benefits. c. Risks and complications (most common and serious). d. Alternative treatments and the risks, benefits and side effects of each (including no treatment). e. Likelihood of the patient achieving his/her goals without this procedure and surgery treatment. f. Problems that might occur during the recuperation. g. Conflicts of interest, if any PROCEDURE SUMMARY: A time-out was performed. My hands were washed immediately prior to the procedure. The area was cleansed in usual sterile fashion. Anesthesia was achieved with 1% lidocaine. The right lateral of the abdomen was prepped. 1% lidocaine was used to numb the skin, soft tissue and peritoneum. The paracentesis catheter was inserted and advanced with negative pressure until yellow colored fluid was aspirated. Approximately 60 mL of ascitic fluid was collected and sent for laboratory analysis. The catheter was removed and no leaking was noted. A bandaid was placed over the puncture wound. The patient tolerated the procedure well without any immediate complications. Estimated bl ood loss was 1cc Post Procedure: sent fluid for analysis for r/o SBP, patient refused therapeutic paracentesis Coding Additional Codes Date of Service ([email or web address])
[2025-02-25 07:02] LABS: Basophils, Fluid 2 %; Eosinophils, Fluid 3 %; Lymphocytes, Fluid 65 %; Mono,Macrophage,Mesothelial 24 %; Neutrophils, Fluid 6 %
[2025-02-25] MEDS: LACTULOSE SYRUP 20 GM/30 ML UDC PO SCH (07:19)
[2025-02-25] MEDS: LIDOCAINE 5% 1 PATCH TD SCH (07:26)
[2025-02-25 07:28] LABS: Hematocrit (blood only) 22.9 % (42.0-52.0); Hemoglobin 7.6 g/dl (14.0-18.0); Mean Corpuscular Hemoglobin 28.8 pg (25.0-34.0); Mean Corpuscular Volume 86.7 fL (80.0-100.0); Platelet Count 179 K/uL (130-400); RDW Standard Deviation 62.4 fL (36.4-46.3); Red Blood Count 2.64 M/uL (4.70-6.10); White Blood Count 10.02 K/ul (4.8-10.8)
[2025-02-25 08:56] LABS: Alanine Aminotransferase 9.0 U/L (7-52); Albumin Globulin Ratio 0.6 (0.9-2); Alkaline Phosphatase 84.0 U/L (34-104); Anion Gap 5.0 (3-11); Bilirubin,Total 3.7 mg/dl (0.2-1.0); Blood Urea Nitrogen 51.0 mg/dl (6-23); Calcium 7.6 mg/dl (8.6-10.3); Carbon Dioxide 23.0 mmol/L (21-32); Chloride 99.0 mmol/L (98-107); Creatinine Clr Calc Pharmacy 58.9 ml/min; Globulin 3.4 gm/dl (2.5-4.0); Glucose 78.0 mg/dl (70-99(Fasting)); Magnesium 2.3 mg/dl (1.7-2.4); Potassium 4.5 mmol/L (3.5-5.1); Sodium 127.0 mmol/L (136-145); Total Protein 5.6 gm/dl (6.0-8.3)
[2025-02-25] MEDS ORDERED: VANCOMYCIN CONSULT ACTIVE PRN (09:15)
--- NOTE | 2025-02-25 09:37 | Gastrointestinal Consultation ---
Date of Consultation February 25, 2025 Assessment & Plan (1) Cirrhosis: 54 year old male with history of decompensated cirrhosis, MELD 25 for which he follows with hepatology and receives weekly paracentesis, esophageal/gastric/duodenal varices s/p coil and STS embolization of a prominent gastroesophageal varices and gastroduodenal varices, alcohol dependence in remission, portal hypertensive gastropathy, gastric antral vascular ectasia, thrombocytopenia, COPD, CKD stage IV, chronic anemia, chronic hyponatremia, tobacco use disorder, heart failure admitted through the ED to the ICU after a fall from a motorized scooter 1. Acute on chronic anemia - No evidence of active GI bleeding - Trend H&H - Monitor and document GI output - Transfuse PRN per primary team - Continue IV PPI today - Continue IV octreotide today - No plan for endoscopic evaluation today given no report of bleeding - If he remains hemodynamically stable w/o evidence of GI bleeding, we can D/C IV PPI and octreotide 02/26 - Follow up with [facility] as previously established - MELD labs every 6 months - ABD imaging w/ AFP every 6 months - EGD every 1-2 years - No ETOH - No NSAIDs - Avoid hepatotoxin - Low NA diet, less than 2G daily - Less than 2G acetaminophen containing products daily I spent a total of 60 minutes on the date of service in review of patient's record, and previously obtained information in person and appropriate medical visit, discussion and education of plan, with patient and/or caregiver, placing orders for tests/referral/procedures as medically necessary and documentation of pertinent clinical information in patient's medical records for their visit today. Supervising Physician Co-Signing Physician Notes I saw and examined this patient with our nurse practitioner and agree with her assessment and plan. Patient admitted for non-GI issues. Has a history of chronic GI blood loss due to portal gastropathy. Hemoglobin levels now are his baseline. Will consider adding a beta-demetris prior to discharge if tolerated to help reduce bleeding from portal gastropathy. Will consider further evaluation if no evidence of active GI bleeding. History of Present Illness Reason for Consultation: GI bleed Requesting Physician: Tyrese Gibbs DO Attending Physician: Tyrese Gibbs DO History of Present Illness 54 year old male with history of decompensated cirrhosis, MELD 25 for which he follows with hepatology and receives weekly paracentesis, esophageal/gastric/duodenal varices s/p coil and STS embolization of a prominent gastroesophageal varices and gastroduodenal varices, alcohol dependence in remission, portal hypertensive gastropathy, gastric antral vascular ectasia, thrombocytopenia, COPD, CKD stage IV, chronic anemia, chronic hyponatremia, tobacco use disorder, heart failure admitted through the ED to the ICU after a fall from a motorized scooter. GI was asked to evaluate for "GI bleed." Pt was seen and evaluated, chart reviewed. He is awake, alert and oriented providing me medical history. He suggests he is at his baseline, if not improved from a gastrointestional standpoint. He notes his volume status has been better controlled. He suggests he was previously on weekly paracentesis but recently was able to post-pone his weekly paracentesis w/ plan to transition to monthly paracentesis. He denies abd pain. No report of nausea/vomiting. Denies any recent black or bloody stools. He tells me his last stool was brown. HGB 6.8 --> 2 units --> 7.6 BUN 51/FURNACE HELPER 1.55 PLT 179 INR 1.2 NA 127 Tb 3.7 IR Anterograde variceal embolization 09/01/2024: - Large volume ascites on survey ultrasound images. Minimal residual fluid following drainage catheter placement and removal. - Patent recanalized umbilical vein. - Coil and STS embolization of a prominent gastroesophageal varices. - Coil and GelFoam embolization of gastroduodenal varices. - Unable to further interrogate residual duodenal varices. - Woggle closure device deployed at the midline abdominal access site. EGD 2024: Grade I and small (< 5 mm) esophageal varices with no bleeding and no stigmata of recent bleeding. - 3 cm hiatal hernia. - A large amount of food (residue) in the stomach. - Portal hypertensive gastropathy. - Blood in the duodenal bulb. 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 - Erythematous duodenopathy. - No specimens collected. - All instruments are visually inspected immediately before and after removal from the patient to ensure they are fully intact. Colonoscopy 2024: The procedure was aborted due to poor bowel prep. - Preparation of the colon was poor. - Internal hemorrhoids (Grade I) found on perianal exam. - Stool in the entire examined colon. - No specimens collected. - All instruments are visually inspected immediately before and after removal from the patient to ensure they are fully intact. Allergies Allergy/AdvReac Type Severity Reaction Status Date / Time Penicillins Allergy Unknown pt unsure Verified 02/18/25 17:36 of reaction Home Medications Medication Instructions Recorded Confirmed Type ergocalciferol (vitamin D2) 1,250 1,250 mcg PO .EVERY 7 DAYS 02/24/25 02/24/25 History mcg (50,000 unit) capsule Patient History Medical History Hypervolemia Symptomatic anemia hospitalized [facility] 02/26/24 for issues related to this Poor historian main details obtained from [place] med record Alcoholic cirrhosis of liver with ascites hospitalized [facility] 02/26/24 for issues related to this Metabolic encephalopathy hospitalized [facility] 02/26/24 for issues related to this PAF (paroxysmal atrial fibrillation) pt denies; hospitalized [facility] 02/26/24, evaluated by tae garcia per cardio consult Esophagitis History of severe sepsis hospitalized 02/26/24, [facility] 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 per med record; hospitalized [facility] 02/26/24 for issues related to this Orthostatic hypotension "he thinks" COPD (chronic obstructive pulmonary disease) History of pneumonia 07/2023, 02/26/24, hospitalized [facility] 02/26/24 for issues related to this S/P abdominal paracentesis 03/21/2024, [facility] Current every day smoker Surgical History History of esophagogastroduodenoscopy (EGD) S/P cataract extraction right eye/left History of tonsillectomy History of hernia surgery infancy Family History Mother Stroke Diabetes Other Colorectal cancer Heart disease Social History Smoking Status: Current every day smoker Tobacco Type: Cigarettes Cigarettes Per Day: 1.5-2; Second Hand Exposure: No; Do You Dip or Chew Tobacco: No; Tobacco Cessation Education Requested by Patient: No Hx Alcohol Use: No Hx Substance Use: No Preferred Language: Portuguese Communication Ability: Effective Pastoral Assistant Required: No Beliefs That Will Affect Care: None Current Living Situation: Other Current Living Situation Comment: residential in [employer] Other Information That Helps Us Care for You: No Feels Safe at Home: Yes Safety Concerns: Feels Safe At This Time Assistive Devices: Scooter/Electric Scooter Review of Systems Review of Systems: All other findings negative except as noted in HPI. Physical Exam Constitutional: WD/WN, vitals as above Respiratory: normal respiratory effort Gastrointestinal (Abdomen): normal bowel sounds, soft, nontender, no hepatosplenomegaly Skin: no rashes, warm and dry + bilateral extremety edema Results & Data Vital Signs (Past 12 Hours) Vital Signs Temp Pulse Pulse Resp BP BP Pulse Ox 02/25/25 09:09 68 20 96 02/25/25 08:18 68 17 97 02/25/25 07:30 98.6 F 02/25/25 07:20 111/53 L 02/25/25 07:12 68 23 97 02/25/25 05:41 98.6 F 63 16 101/59 L 94 02/25/25 05:35 98.6 F 64 16 101/59 L 94 02/25/25 05:15 66 20 92 02/25/25 05:00 91/49 L 02/25/25 05:00 91/49 L 02/25/25 05:00 91/49 L 02/25/25 04:48 65 17 94 02/25/25 04:45 65 18 94 02/25/25 04:36 66 16 96 02/25/25 04:35 98.6 F 62 18 91/46 L 100 02/25/25 04:15 89/51 L 02/25/25 04:15 89/51 L 02/25/25 04:15 89/51 L 02/25/25 04:15 65 17 95 02/25/25 04:06 66 18 95 02/25/25 04:05 98.6 F 64 18 101/69 100 02/25/25 03:54 67 16 95 02/25/25 03:50 98.6 F 64 18 87/51 L 100 02/25/25 03:33 98.6 F 72 18 103/64 100 02/25/25 03:15 70 18 90 02/25/25 03:09 73 21 90 02/25/25 02:45 72 18 94 02/25/25 02:36 71 19 93 02/25/25 02:27 71 17 94 02/25/25 01:45 72 17 95 02/25/25 01:30 70 18 94 02/25/25 01:24 72 17 94 02/25/25 01:00 71 19 94 02/25/25 00:45 70 17 94 02/25/25 00:39 71 22 95 02/25/25 00:30 98.4 F 71 16 103/54 L 95 02/25/25 00:03 68 16 96 02/25/25 00:00 105/60 02/24/25 23:20 98.6 F 72 19 105/57 L 100 02/24/25 23:18 98.2 F 70 16 94/61 L 98 02/24/25 23:00 70 16 94/61 L 98 02/24/25 22:50 75 02/24/25 22:35 98.6 F 72 19 105/57 L 100 02/24/25 22:00 99.0 F 73 17 111/61 99 02/24/25 22:00 98.8 F 74 17 111/61 98 02/24/25 22:00 99.1 F 75 18 111/61 98 O2 Del Method 02/25/25 09:09 02/25/25 08:18 Room Air 02/25/25 07:30 02/25/25 07:20 02/25/25 07:12 02/25/25 05:41 02/25/25 05:35 02/25/25 05:15 02/25/25 05:00 02/25/25 05:00 02/25/25 05:00 02/25/25 04:48 02/25/25 04:45 02/25/25 04:36 02/25/25 04:35 02/25/25 04:15 02/25/25 04:15 02/25/25 04:15 02/25/25 04:15 02/25/25 04:06 02/25/25 04:05 02/25/25 03:54 02/25/25 03:50 02/25/25 03:33 02/25/25 03:15 02/25/25 03:09 02/25/25 02:45 02/25/25 02:36 02/25/25 02:27 02/25/25 01:45 02/25/25 01:30 02/25/25 01:24 02/25/25 01:00 02/25/25 00:45 02/25/25 00:39 02/25/25 00:30 Room Air 02/25/25 00:03 02/25/25 00:00 02/24/25 23:20 02/24/25 23:18 Room Air 02/24/25 23:00 Room Air 02/24/25 22:50 02/24/25 22:35 02/24/25 22:00 02/24/25 22:00 Room Air 02/24/25 22:00 Room Air Laboratory Results 02/25/25 02/25/25 02/25/25 Range/Units 07:07 07:03 02:05 WBC 10.02 10.71 (4.8-10.8) K/ul RBC 2.64 L 2.39 L (4.70-6.10) M/uL Hgb 7.6 L 6.8 L* (14.0-18.0) g/dl POC Hgb (14.0-18.0) g/dl Hct 22.9 L 21.1 L (42.0-52.0) % POC Hct (42-52) % MCV 86.7 88.3 (80.0-100.0) fL MCH 28.8 28.5 (25.0-34.0) pg MCHC 33.2 32.2 (32.0-36.0) g/dL RDW Std Deviation 62.4 H 61.9 H (36.4-46.3) fL RDW Coeff of Ham 19.9 H 19.3 H (11.5-14.5) % Plt Count 179 177 (130-400) K/uL MPV 9.0 L 8.6 L (9.4-12.4) fL Immature Gran % (Auto) % Neut % (Auto) % Lymph % (Auto) % Crowley % (Auto) % Eos % (Auto) % Baso % (Auto) % Neut # (Auto) (1.40-6.50) K/uL Lymph # (Auto) (1.20-3.40) K/uL Crowley # (Auto) (0.11-0.59) K/uL Eos # (Auto) (0.00-0.50) K/uL Baso # (Auto) (0.00-0.20) K/uL Immature Gran # (Auto) (0.01-0.20) K/uL Anisocytosis ESR (0-20) mm/hr PT (9.0-12.0) Seconds INR (0.9-1.1) APTT (21-31) Seconds PTT Ratio POC Sodium (135-144) mmol/L Sodium 127 L (136-145) mmol/L POC Potassium (3.3-5.0) mmol/L Potassium 4.5 (3.5-5.1) mmol/L POC Chloride (101-112) mmol/L Chloride 99 (98-107) mmol/L Carbon Dioxide 23 (21-32) mmol/L POC Total CO2 (24-31) mmol/L Anion Gap 5 (3-11) POC Anion Gap (16-25) mmol/L POC BUN (7-18) mg/dl BUN 51 H (6-23) mg/dl Creatinine 1.55 H (0.6-1.4) mg/dl POC Creatinine (0.6-1.3) mg/dl Est Cr Clr Drug Dosing 58.9 eGFR 53.52 BUN/Creatinine Ratio 32.9 H (10-20) Glucose 78 (70-99(Fasting)) mg/dl POC Glucose (other) (70-99) mg/dl Osmolality (280-300) mOsm/kg Lactate (0.4-2.0) mmol/L Calcium 7.6 L (8.6-10.3) mg/dl POC Ioniz Calcium [place] (1.12-1.32) mmol/l Magnesium 2.3 (1.7-2.4) mg/dl Total Bilirubin 3.7 H D (0.2-1.0) mg/dl AST 22 (13-39) U/L ALT 9 (7-52) U/L Alkaline Phosphatase 84 (34-104) U/L C-Reactive Protein (0-0.5) mg/dl Total Protein 5.6 L (6.0-8.3) gm/dl Albumin 2.2 L (3.4-5.0) gm/dl Globulin 3.4 (2.5-4.0) gm/dl Albumin/Globulin Ratio 0.6 L (0.9-2) Lipase (11-82) U/L Procalcitonin (0-0.5) ng/ml TSH (0.300-4.500) uIu/ml Cortisol AM Sample 15.16 (6.2-22.6) mcg/dl Urine Color Urine Appearance (Clear) Urine pH (4.5-7.5) Ur Specific [place] (1.000-1.030) Urine Protein (Negative) Urine Glucose (UA) (Negative) Urine Ketones (Negative) Urine Blood (Negative) Urine Nitrite (Negative) Urine Bilirubin (Negative) Urine Urobilinogen (Negative) Ur Leukocyte Esterase (Negative) Urine WBC (Auto) (0-5) /hpf Urine RBC (Auto) (0-2) /hpf U Hyaline Cast (Auto) (0-2) /lpf U Epithel Cells (Auto) (0-2) /hpf Urine Bacteria (Auto) (None Seen) Hyaline Casts (None Presnt) /lpf Urine Comment Fluid Neutrophils % % Fluid Lymphocytes % % Fluid Eosinophils % % Fluid Basophils % % Fluid Meso/Macro/Crowley % % Fluid Comment Peritoneal Color Peritoneal Appearance Peritoneal WBC (Auto) (0-300) /ul Peritoneal RBC (Auto) /uL Peritoneal Tot Protein gm/dl Peritoneal Albumin gm/dl Nasal Screen MRSA (PCR) (Negative) Ethyl Alcohol mg/dL (<10.0) mg/dl Blood Type Antibody Screen Crossmatch 02/25/25 02/24/25 02/24/25 Range/Units 01:15 Unknown 23:54 WBC (4.8-10.8) K/ul RBC (4.70-6.10) M/uL Hgb (14.0-18.0) g/dl POC Hgb (14.0-18.0) g/dl Hct (42.0-52.0) % POC Hct (42-52) % MCV (80.0-100.0) fL MCH (25.0-34.0) pg MCHC (32.0-36.0) g/dL RDW Std Deviation (36.4-46.3) fL RDW Coeff of Ham (11.5-14.5) % Plt Count (130-400) K/uL MPV (9.4-12.4) fL Immature Gran % (Auto) % Neut % (Auto) % Lymph % (Auto) % Crowley % (Auto) % Eos % (Auto) % Baso % (Auto) % Neut # (Auto) (1.40-6.50) K/uL Lymph # (Auto) (1.20-3.40) K/uL Crowley # (Auto) (0.11-0.59) K/uL Eos # (Auto) (0.00-0.50) K/uL Baso # (Auto) (0.00-0.20) K/uL Immature Gran # (Auto) (0.01-0.20) K/uL Anisocytosis ESR (0-20) mm/hr PT (9.0-12.0) Seconds INR (0.9-1.1) APTT (21-31) Seconds PTT Ratio POC Sodium (135-144) mmol/L Sodium (136-145) mmol/L POC Potassium (3.3-5.0) mmol/L Potassium (3.5-5.1) mmol/L POC Chloride (101-112) mmol/L Chloride (98-107) mmol/L Carbon Dioxide (21-32) mmol/L POC Total CO2 (24-31) mmol/L Anion Gap (3-11) POC Anion Gap (16-25) mmol/L POC BUN (7-18) mg/dl BUN (6-23) mg/dl Creatinine (0.6-1.4) mg/dl POC Creatinine (0.6-1.3) mg/dl Est Cr Clr Drug Dosing eGFR BUN/Creatinine Ratio (10-20) Glucose (70-99(Fasting)) mg/dl POC Glucose (other) (70-99) mg/dl Osmolality (280-300) mOsm/kg Lactate 0.8 (0.4-2.0) mmol/L Calcium (8.6-10.3) mg/dl POC Ioniz Calcium [place] (1.12-1.32) mmol/l Magnesium (1.7-2.4) mg/dl Total Bilirubin (0.2-1.0) mg/dl AST (13-39) U/L ALT (7-52) U/L Alkaline Phosphatase (34-104) U/L C-Reactive Protein (0-0.5) mg/dl Total Protein (6.0-8.3) gm/dl Albumin (3.4-5.0) gm/dl Globulin (2.5-4.0) gm/dl Albumin/Globulin Ratio (0.9-2) Lipase (11-82) U/L Procalcitonin (0-0.5) ng/ml TSH (0.300-4.500) uIu/ml Cortisol AM Sample (6.2-22.6) mcg/dl Urine Color Dark Yellow Urine Appearance Clear (Clear) Urine pH 5.5 (4.5-7.5) Ur Specific [place] 1.011 (1.000-1.030) Urine Protein Trace H (Negative) Urine Glucose (UA) Negative (Negative) Urine Ketones Negative (Negative) Urine Blood 1+ H (Negative) Urine Nitrite Negative (Negative) Urine Bilirubin Negative (Negative) Urine Urobilinogen Negative (Negative) Ur Leukocyte Esterase Negative (Negative) Urine WBC (Auto) 0-5 (0-5) /hpf Urine RBC (Auto) 0-2 (0-2) /hpf U Hyaline Cast (Auto) 6-10 H (0-2) /lpf U Epithel Cells (Auto) 0-2 (0-2) /hpf Urine Bacteria (Auto) None Seen (None Seen) Hyaline Casts Present A (None Presnt) /lpf Urine Comment Fluid Neutrophils % % Fluid Lymphocytes % % Fluid Eosinophils % % Fluid Basophils % % Fluid Meso/Macro/Crowley % % Fluid Comment Peritoneal Color Peritoneal Appearance Peritoneal WBC (Auto) (0-300) /ul Peritoneal RBC (Auto) /uL Peritoneal Tot Protein gm/dl Peritoneal Albumin gm/dl Nasal Screen MRSA (PCR) Negative (Negative) Ethyl Alcohol mg/dL (<10.0) mg/dl Blood Type Antibody Screen Crossmatch 02/24/25 02/24/25 02/24/25 Range/Units 23:24 19:45 19:13 WBC (4.8-10.8) K/ul RBC (4.70-6.10) M/uL Hgb (14.0-18.0) g/dl POC Hgb 6.5 L* (14.0-18.0) g/dl Hct (42.0-52.0) % POC Hct 19 L* (42-52) % MCV (80.0-100.0) fL MCH (25.0-34.0) pg MCHC (32.0-36.0) g/dL RDW Std Deviation (36.4-46.3) fL RDW Coeff of Ham (11.5-14.5) % Plt Count (130-400) K/uL MPV (9.4-12.4) fL Immature Gran % (Auto) % Neut % (Auto) % Lymph % (Auto) % [place] % (Auto) % Eos % (Auto) % Baso % (Auto) % Neut # (Auto) (1.40-6.50) K/uL Lymph # (Auto) (1.20-3.40) K/uL [place] # (Auto) (0.11-0.59) K/uL Eos # (Auto) (0.00-0.50) K/uL Baso # (Auto) (0.00-0.20) K/uL Immature Gran # (Auto) (0.01-0.20) K/uL Anisocytosis ESR 43 H (0-20) mm/hr PT (9.0-12.0) Seconds INR (0.9-1.1) APTT (21-31) Seconds PTT Ratio POC Sodium 126 L (135-144) mmol/L Sodium (136-145) mmol/L POC Potassium 4.9 (3.3-5.0) mmol/L Potassium (3.5-5.1) mmol/L POC Chloride 94 L (101-112) mmol/L Chloride (98-107) mmol/L Carbon Dioxide (21-32) mmol/L POC Total CO2 21 L (24-31) mmol/L Anion Gap (3-11) POC Anion Gap 17.0 (16-25) mmol/L POC BUN 43 H (7-18) mg/dl BUN (6-23) mg/dl Creatinine (0.6-1.4) mg/dl POC Creatinine 1.9 H (0.6-1.3) mg/dl Est Cr Clr Drug Dosing eGFR BUN/Creatinine Ratio (10-20) Glucose (70-99(Fasting)) mg/dl POC Glucose (other) 91 (70-99) mg/dl Osmolality (280-300) mOsm/kg Lactate (0.4-2.0) mmol/L Calcium (8.6-10.3) mg/dl POC Ioniz Calcium [place] 1.02 L (1.12-1.32) mmol/l Magnesium (1.7-2.4) mg/dl Total Bilirubin (0.2-1.0) mg/dl AST (13-39) U/L ALT (7-52) U/L Alkaline Phosphatase (34-104) U/L C-Reactive Protein (0-0.5) mg/dl Total Protein (6.0-8.3) gm/dl Albumin (3.4-5.0) gm/dl Globulin (2.5-4.0) gm/dl Albumin/Globulin Ratio (0.9-2) Lipase (11-82) U/L Procalcitonin (0-0.5) ng/ml TSH (0.300-4.500) uIu/ml Cortisol AM Sample (6.2-22.6) mcg/dl Urine Color Urine Appearance (Clear) Urine pH (4.5-7.5) Ur Specific [place] (1.000-1.030) Urine Protein (Negative) Urine Glucose (UA) (Negative) Urine Ketones (Negative) Urine Blood (Negative) Urine Nitrite (Negative) Urine Bilirubin (Negative) Urine Urobilinogen (Negative) Ur Leukocyte Esterase (Negative) Urine WBC (Auto) (0-5) /hpf Urine RBC (Auto) (0-2) /hpf U Hyaline Cast (Auto) (0-2) /lpf U Epithel Cells (Auto) (0-2) /hpf Urine Bacteria (Auto) (None Seen) Hyaline Casts (None Presnt) /lpf Urine Comment Fluid Neutrophils % 6 % Fluid Lymphocytes % 65 % Fluid Eosinophils % 3 % Fluid Basophils % 2 % Fluid Meso/Macro/Crowley % 24 % Fluid Comment Peritoneal Color Yellow Peritoneal Appearance Cloudy Peritoneal WBC (Auto) 110 (0-300) /ul Peritoneal RBC (Auto) 4000 /uL Peritoneal Tot Protein < 3.0 gm/dl Peritoneal Albumin < 1.5 gm/dl Nasal Screen MRSA (PCR) (Negative) Ethyl Alcohol mg/dL < 10.0 (<10.0) mg/dl Blood Type Antibody Screen Crossmatch 02/24/25 02/24/25 Range/Units 18:57 18:53 WBC 10.72 (4.8-10.8) K/ul RBC 2.35 L (4.70-6.10) M/uL Hgb 6.8 L* (14.0-18.0) g/dl POC Hgb (14.0-18.0) g/dl Hct 21.0 L (42.0-52.0) % POC Hct (42-52) % MCV 89.4 (80.0-100.0) fL MCH 28.9 (25.0-34.0) pg MCHC 32.4 (32.0-36.0) g/dL RDW Std Deviation 64.1 H (36.4-46.3) fL RDW Coeff of Ham 19.6 H (11.5-14.5) % Plt Count 218 (130-400) K/uL MPV 9.0 L (9.4-12.4) fL Immature Gran % (Auto) 0.6 % Neut % (Auto) 86.0 % Lymph % (Auto) 6.5 % Crowley % (Auto) 5.5 % Eos % (Auto) 1.1 % Baso % (Auto) 0.3 % Neut # (Auto) 9.22 H (1.40-6.50) K/uL Lymph # (Auto) 0.70 L (1.20-3.40) K/uL [place] # (Auto) 0.59 (0.11-0.59) K/uL Eos # (Auto) 0.12 (0.00-0.50) K/uL Baso # (Auto) 0.03 (0.00-0.20) K/uL Immature Gran # (Auto) 0.06 (0.01-0.20) K/uL Anisocytosis Present ESR (0-20) mm/hr PT 12.9 H (9.0-12.0) Seconds INR 1.2 H (0.9-1.1) APTT 34 H (21-31) Seconds PTT Ratio 1.3 POC Sodium (135-144) mmol/L Sodium 125 L (136-145) mmol/L POC Potassium (3.3-5.0) mmol/L Potassium 4.9 (3.5-5.1) mmol/L POC Chloride (101-112) mmol/L Chloride 95 L (98-107) mmol/L Carbon Dioxide 23 (21-32) mmol/L POC Total CO2 (24-31) mmol/L Anion Gap 7 (3-11) POC Anion Gap (16-25) mmol/L POC BUN (7-18) mg/dl BUN 51 H (6-23) mg/dl Creatinine 1.82 H (0.6-1.4) mg/dl POC Creatinine (0.6-1.3) mg/dl Est Cr Clr Drug Dosing Not Reportable eGFR 44.14 BUN/Creatinine Ratio 28.0 H (10-20) Glucose 98 (70-99(Fasting)) mg/dl POC Glucose (other) (70-99) mg/dl Osmolality 278 L (280-300) mOsm/kg Lactate (0.4-2.0) mmol/L Calcium 7.8 L (8.6-10.3) mg/dl POC Ioniz Calcium [place] (1.12-1.32) mmol/l Magnesium 2.5 H (1.7-2.4) mg/dl Total Bilirubin 1.8 H (0.2-1.0) mg/dl AST 29 (13-39) U/L ALT 10 (7-52) U/L Alkaline Phosphatase 106 H (34-104) U/L C-Reactive Protein 4.54 H (0-0.5) mg/dl Total Protein 6.7 (6.0-8.3) gm/dl Albumin 2.5 L (3.4-5.0) gm/dl Globulin 4.2 H (2.5-4.0) gm/dl Albumin/Globulin Ratio 0.6 L (0.9-2) Lipase 80 (11-82) U/L Procalcitonin 0.63 H (0-0.5) ng/ml TSH 1.184 (0.300-4.500) uIu/ml Cortisol AM Sample (6.2-22.6) mcg/dl Urine Color Urine Appearance (Clear) Urine pH (4.5-7.5) Ur Specific [place] (1.000-1.030) Urine Protein (Negative) Urine Glucose (UA) (Negative) Urine Ketones (Negative) Urine Blood (Negative) Urine Nitrite (Negative) Urine Bilirubin (Negative) Urine Urobilinogen (Negative) Ur Leukocyte Esterase (Negative) Urine WBC (Auto) (0-5) /hpf Urine RBC (Auto) (0-2) /hpf U Hyaline Cast (Auto) (0-2) /lpf U Epithel Cells (Auto) (0-2) /hpf Urine Bacteria (Auto) (None Seen) Hyaline Casts (None Presnt) /lpf Urine Comment Fluid Neutrophils % % Fluid Lymphocytes % % Fluid Eosinophils % % Fluid Basophils % % Fluid Meso/Macro/[place] % % Fluid Comment Peritoneal Color Peritoneal Appearance Peritoneal WBC (Auto) (0-300) /ul Peritoneal RBC (Auto) /uL Peritoneal Tot Protein gm/dl Peritoneal Albumin gm/dl Nasal Screen MRSA (PCR) (Negative) Ethyl Alcohol mg/dL (<10.0) mg/dl Blood Type A Negative Antibody Screen NEGATIVE Crossmatch See Detail PG Care Time/CCT Total # of Minutes Spent Total Time Spent with Patient: Total time spent is greater than 50% in coordination of care (as documented) at patient's floor/unit and/or counseling patient: Coding Level of Care Code 16195 INT INP/OBS CARE MIN Diagnoses Cirrhosis K70.31 Ascites presence: with ascites Hepatic cirrhosis type: alcoholic cirrhosis (1) Cirrhosis Ascites presence: with ascites Hepatic cirrhosis type: alcoholic cirrhosis Qualified Code(s): K70.31 - Alcoholic cirrhosis of liver with ascites
[2025-02-25] MEDS: SPIRONOLACTONE 100 MG TAB PO SCH (09:57)
[2025-02-25] MEDS: CEFEPIME 2000MG 2,000 MG/20 ML SYR IV SCH (10:38)
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
[2025-02-25] MEDS: TORSEMIDE 20 MG TAB PO SCH (12:05)
[2025-02-25] MEDS: VANCOMYCIN HCL 1,500 MG in SODIUM CHLORIDE 0.9% 500 ML IV SCH (12:05)
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
[2025-02-25] MEDS: GABAPENTIN 300 MG CAP PO SCH (14:21)
--- NOTE | 2025-02-25 14:26 | XRay Report ---
XR ankle 1V stress CLINICAL HISTORY: Stress view R ankle. Eval joint space widening COMPARISON STUDY: None FINDINGS: No fracture or dislocation seen. No subluxation seen on the stress view. IMPRESSION: No subluxation seen. ACT 112: Negative or not required by law. Electronically signed by: John Titus M.D. 02/25/2025 2:25 PM
[2025-02-25] MEDS: NICOTINE 7 MG/24 HR TDSY TD SCH (14:27)
[2025-02-25 15:46] VITALS: TEMP 98.2
[2025-02-25] MEDS: REMOVE LIDODERM PATCH SCH (20:41)
[2025-02-26 04:56] LABS: Hematocrit (blood only) 23.9 % (42.0-52.0); Hemoglobin 7.9 g/dl (14.0-18.0); Mean Corpuscular Hemoglobin 28.9 pg (25.0-34.0); Mean Corpuscular Volume 87.5 fL (80.0-100.0); Platelet Count 191 K/uL (130-400); RDW Standard Deviation 64.0 fL (36.4-46.3); Red Blood Count 2.73 M/uL (4.70-6.10); White Blood Count 9.81 K/ul (4.8-10.8)
[2025-02-26 05:20] LABS: Alanine Aminotransferase 9.0 U/L (7-52); Albumin Globulin Ratio 0.6 (0.9-2); Alkaline Phosphatase 84.0 U/L (34-104); Anion Gap 6.0 (3-11); Bilirubin,Total 1.5 mg/dl (0.2-1.0); Blood Urea Nitrogen 53.0 mg/dl (6-23); Calcium 7.4 mg/dl (8.6-10.3); Carbon Dioxide 22.0 mmol/L (21-32); Chloride 102.0 mmol/L (98-107); Creatinine Clr Calc Pharmacy 63.8 ml/min; Globulin 3.8 gm/dl (2.5-4.0); Glucose 153.0 mg/dl (70-99(Fasting)); Magnesium 2.0 mg/dl (1.7-2.4); Potassium 4.2 mmol/L (3.5-5.1); Sodium 130.0 mmol/L (136-145); Total Protein 5.9 gm/dl (6.0-8.3)
[2025-02-26] MEDS: ACETAMINOPHEN 325 MG TAB PO PRN (08:12)
[2025-02-26] MEDS: REMOVE NICODERM PATCH SCH (08:13)
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
--- NOTE | 2025-02-26 09:36 | Orthopedic Progress Note ---
Date of Service February 26, 2025 Assessment & Plan (1) Closed fibular fracture: * Case/imaging reviewed and discussed with Dr Smalls * Proximal fibula fracture with medial ankle sprain * X-ray ankle was stressed few performed yesterday, no joint subluxation or gapping of the medial ankle joint * Recommend continued closed management of right fibula fracture * May WBAT in CAM boot * Discussed cam boot with patient, states he probably will not wear it, but encouraged him to try it out to least provide some temporary relief while his medial ankle sprain heals * Disposition: TBD * Wound care consult pending RLE wound * Pain control * Remainder care per primary team * Will follow peripherally, office follow-up in 4-6 weeks for repeat imaging (2) Closed left clavicular fracture: * Seen previously by [facility]o team * Recommend continued closed management Subjective .Active Problems: S/p right proximal fibula fracture 54y/o male with right proximal fibula fracture, also subacute left clavicle fracture being managed nonoperatively. Doing well overall, pain managed and improved mobilization with PT. Denies fever/chills, chest pain/SOB, nausea/vomiting. Otherwise no complaints. Review of Systems All systems reviewed & are unremarkable except as noted in HPI & below. Physical Exam . * General: Alert and oriented, no acute distress * Constitutional: well-developed, well-nourished. * Respiratory: Normal respiratory effort, no distress * Gastrointestinal: No tenderness to palpation, no rigidity or guarding. * Skin: Diffuse soft tissue edema bilateral lower extremity. * Neurologic: Grossly normal * Musculoskeletal: Right lower extremity with diffuse soft tissue edema, wound to anterior lateral distal medina with no active drainage or purulence. TTP point tender proximal fibula and medial ankle/deltoid ligament, also diffusely throughout the entire right lower leg. Results & Data Results & Data Laboratory Results . Diagnostic Findings . PG Care Time/CCT Total # of Minutes Spent Total Time Spent with Patient: Total time spent is greater than 50% in coordination of care (as documented) at patient's floor/unit and/or counseling patient: Coding Level of Care Code 44545 SUB INP/OBS CARE 08/24MIN Diagnoses Closed fibular fracture S82.409A Closed left clavicular fracture S42.002A
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
[2025-02-26 11:35] VITALS: RESP 22; O2SAT 97
[2025-02-26 14:45] VITALS: BP 130/65; PULSE 72
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
[2025-02-26] MEDS ORDERED: FERROUS SULFATE 325 MG TAB PO SCH (17:00)
--- NOTE | 2025-02-28 04:55 | Electrocardiogram Report ---
Test Reason : Blood Pressure : */* mmHG Vent. Rate : 81 BPM Atrial Rate : 81 BPM P-R Int : 176 ms QRS Dur : 96 ms QT Int : 406 ms P-R-T Axes : 33 62 50 degrees QTcB Int : 471 ms Normal sinus rhythm Low voltage QRS Borderline ECG When compared with ECG of 09-Jan-2025 05:26, T wave amplitude has increased in Anterior leads Confirmed by Gen Mazariegos ([id number]) on 02/28/2025 4:55:16 AM Referred By: REFERRED SELF Confirmed By: Gen Mazariegos
== END 2025-02-26 15:38 | disposition home or self-care (01) | DRG 183 ==
LOC: ED 18:36 → SUATTDRO 22:29 → INTOOBSV 22:29 → 1E 22:29 → 2E 02-26 11:09

== ENCOUNTER 2025-05-18 02:32 | Inpatient (IN) ==
[2025-05-18] MEDS: SODIUM CHLORIDE 0.9% 1,000 ML IV ONE (03:00)
[2025-05-18 03:19] LABS: Hematocrit (blood only) 21.7 % (42.0-52.0); Hemoglobin 6.8 g/dl (14.0-18.0); Mean Corpuscular Hemoglobin 29.3 pg (25.0-34.0); Mean Corpuscular Volume 93.5 fL (80.0-100.0); Platelet Count 148 K/uL (130-400); RDW Standard Deviation 59.0 fL (36.4-46.3); Red Blood Count 2.32 M/uL (4.70-6.10); White Blood Count 8.41 K/ul (4.8-10.8)
[2025-05-18 03:30] LABS: Anisocytosis Present; Immature Granulocytes # (auto) 0.04 K/uL (0.01-0.20); Immature Granulocytes % (auto) 0.5 %; Ovalocytes 1+; Polychromasia 2+; Tear Drop Cells 1+; Toxic Granulation 1+
[2025-05-18 03:32] LABS: Alanine Aminotransferase 41.0 U/L (7-52); Albumin Globulin Ratio 0.6 (0.9-2); Albumin Level 2.0 gm/dl (3.4-5.0); Alkaline Phosphatase 68.0 U/L (34-104); Anion Gap 9.0 (3-11); Bilirubin,Total 1.9 mg/dl (0.2-1.0); Blood Urea Nitrogen 61.0 mg/dl (6-23); Calcium 7.9 mg/dl (8.6-10.3); Carbon Dioxide 33.0 mmol/L (21-32); Chloride 98.0 mmol/L (98-107); Creatine Kinase 1904.0 U/L (30-223); Creatinine Clr Calc Pharmacy 45.7 ml/min; Globulin 3.6 gm/dl (2.5-4.0); Glucose 76.0 mg/dl (70-99(Fasting)); Lipase 25.0 U/L (11-82); Magnesium 2.4 mg/dl (1.7-2.4); Potassium 3.1 mmol/L (3.5-5.1); Sodium 140.0 mmol/L (136-145); Total Protein 5.6 gm/dl (6.0-8.3)
[2025-05-18] MEDS: OPTIRAY 320 100ml IV ONE (04:03)
--- NOTE | 2025-05-18 04:54 | CT Scan Report ---
EXAM: CT head/brain wo con CLINICAL HISTORY: Fall. 2-day downtime. Trauma. TECHNIQUE: Axial non-contrast CT scan of the brain was performed from the skull base to the high parietal region. One of the following dose reduction techniques was utilized for this exam: automated exposure control, adjustment of the mA and/or kV according to patient size, or use of iterative reconstruction. COMPARISON: 02/24/2025 CT. FINDINGS: Soft Tissues: Soft tissue swelling involving bilateral frontozygomatic regions, with predominant soft tissue swelling in the right parietotemporal region and underlying loculated scalp fluid collection. Brain Parenchyma: The visualized brain parenchyma shows a normal appearance. No intracerebral or extra-axial hematoma. Ventricular System: Unremarkable. Subarachnoid Spaces: The cortical sulci, sylvian fissure, and basal cisterns are prominent, consistent with mild senile changes. Cerebellum and Brainstem: No masses, lesions, or areas of abnormal density. Orbits: Normal appearance of the globes, optic nerves, and extraocular muscles. No evidence of orbital masses or abnormal density. Visualized Paranasal Sinuses: Mild mucosal thickening in bilateral maxillary sinuses. New interval finding. Mastoid Air Cells: Clear mastoid air cells. Bones: No calvarial fractures. IMPRESSION: 1. No acute intracranial hemorrhage at present. 2. Soft tissue swelling involving bilateral frontozygomatic regions, with predominant soft tissue swelling in the right parietotemporal region and underlying loculated scalp fluid collection. 3. Please refer to the dedicated CT maxillofacial region report for the detail of nasal bones and other facial structures. Electronically signed by Timothy Coto 05-18-2025 04:53 AM
--- NOTE | 2025-05-18 05:12 | CT Scan Report ---
EXAM: CT cervical spine wo con CLINICAL HISTORY: Fall. 2-day downtime. Trauma. TECHNIQUE: CT scan of the cervical spine was performed without the administration of intravenous contrast. Contiguous axial images were obtained from the skull base to the upper thoracic spine. Coronal and sagittal reformatted images were also reviewed. One of the following dose reduction techniques was utilized for this exam: automated exposure control, adjustment of the mA and/or kV according to patient size, and use of iterative reconstruction. COMPARISON: 02/24/2025 CT. FINDINGS: Vertebrae: There is no evidence of an acute fracture in the cervical spine. There is a loss of cervical lordosis with straightening of the curvature. Lower cervical anterior and posterior osteophytes with uncovertebral hypertrophy are noted. Vertebral heights are maintained. Atlantodental osteoarthritic changes are present. Intervertebral Discs: C5-C6: Posterior disc osteophyte complexes result in mild neural foraminal narrowing. Facet Joints: Mild degenerative changes are noted. Soft Tissues: Mild soft tissue swelling involving the neck, predominantly on the right side. This is a new interval finding. Additional Findings: Please refer to the dedicated CT chest report for detailed findings on the left clavicle fracture and effusions. IMPRESSION: 1. No evidence of acute fracture in the cervical spine. 2. Mild soft tissue swelling involving the neck, predominant on the right side. This is a new interval finding. 3. Mild cervical spondylodegenerative changes as described above, unchanged. Electronically signed by Timothy Coto 05-18-2025 05:11 AM
--- NOTE | 2025-05-18 05:19 | CT Scan Report ---
EXAM: CT chest diagnostic w con CLINICAL HISTORY: Fall. 2 day downtime. Trauma. TECHNIQUE: Contiguous axial CT images of the chest were acquired with administration of 93cc Optiray 320 intravenous contrast. Coronal and sagittal reconstructions were obtained. One of the following dose reduction techniques was utilized for this exam: automated exposure control, adjustment of the mA and/or kV according to patient size, or use of iterative reconstruction. COMPARISON: 02/24/2025 CT. FINDINGS: Bones: There is new interval development of fractures of the right seventh to ninth ribs with overlying soft tissue swelling. Fracture of the medial end of the left clavicle is again noted, with interval progression of the surrounding periosteal reaction. An undisplaced fracture of the left eighth rib in the lateral aspect is again noted. Subtle fractures of the left sixth rib in the lateral aspect and bilateral fifth ribs in the anterior aspect are again noted. Degenerative changes in the thoracic spine are again noted. Superior endplate compression fractures of the T10 and L2 vertebral bodies are again noted, resulting in a 15%?20% reduction in height. Lungs: There is a new interval development of mild to moderate right-sided pleural effusion. There is a new interval development of the collapse of the right middle lobe. There is an interval reduction in the volume of the left-sided pleural effusion with minimal effusion at present. Stable subpleural 4?5 mm nodules in the right middle lobe and a 4 mm ground-glass nodule in the right lower lobe. Stable. Bilateral apical paraseptal emphysematous changes are present. Mediastinum: A few subcentimetric non-specific mediastinal nodes are present. The heart size is within normal limits. Atherosclerotic changes are noted in the thoracic aorta. The lower thoracic esophagus is mildly dilated with post-intervention changes and multiple mechanical surgical coils. Stable. Trachea and Main Bronchi: The trachea and main bronchi are patent without evidence of obstruction or abnormality. Chest Wall: Mild soft tissue swelling in the right lateral chest wall is present. Upper Abdomen: Please refer to the dedicated CT abdomen report. IMPRESSION: 1. New interval development of fractures of the right seventh to ninth ribs with overlying soft tissue swelling. 2. New interval development of mild to moderate right-sided pleural effusion. 3. New interval development of the collapse of the right middle lobe. 4. Interval reduction in the volume of the left-sided pleural effusion with minimal effusion at present. 5. Fracture of the medial end of the left clavicle is again noted, with interval progression of the surrounding periosteal reaction. 6. The rest of the findings as described above. Electronically signed by Timothy Coto 05-18-2025 05:18 AM
--- NOTE | 2025-05-18 05:22 | CT Scan Report ---
EXAM: CT facial bones wo con CLINICAL HISTORY: Fall. 2 day downtime. Trauma. TECHNIQUE: Non-contrast CT scan of the maxillofacial region was performed, with sagittal and coronal multiplanar reconstruction. One of the following dose reduction techniques was utilized for this exam: automated exposure control, adjustment of the mA and/or kV according to patient size, and use of iterative reconstruction. COMPARISON: 02/24/[address] head reviewed. FINDINGS: Facial Bones: No definite acute fracture detected. Old fractures or prominent nasal junctions of the nasal bone are seen on both sides, also present on the prior CT study. Zygomatic arches and other facial structures are intact. Soft Tissues: Soft tissue swelling involves the entire maxillofacial region, with subcutaneous fat stranding and predominant soft tissue swelling in the right parietotemporal region and underlying loculated scalp fluid collection. Sinuses: Mild mucosal thickening in the bilateral maxillary sinuses. New interval finding. Nasal Cavity: Left-sided nasal septal deviation. Orbits: Orbits are normal in size and shape. Extraocular muscles and optic nerves are normal. No evidence of orbital masses or proptosis. Maxilla and Mandible: Normal appearance of the maxillary and mandibular bones. No fractures, lytic, or sclerotic lesions. Salivary Glands: Parotid, submandibular, and sublingual glands are normal. No evidence of sialadenitis or masses. Temporomandibular Joints (TMJ): Normal appearance of the TMJ bilaterally. No evidence of joint effusion, degenerative changes, or dislocation. IMPRESSION: Soft tissue swelling involving the entire maxillofacial region with subcutaneous fat stranding and predominant soft tissue swelling in the right parietotemporal region and underlying loculated scalp fluid collection. Recommended clinical correlation. Old fractures or prominent nasal junctions of the nasal bone on both sides, also seen on the prior CT head study. Electronically signed by Timothy Coto 05-18-2025 05:22 AM
--- NOTE | 2025-05-18 05:35 | CT Scan Report ---
EXAM: CT lumbar spine w con CLINICAL HISTORY: Fall. 2 day downtime. Trauma. TECHNIQUE: CT scan of the lumbar spine was performed with the administration of intravenous contrast, with contiguous axial images. Coronal and sagittal reformatted images were also reviewed. One of the following dose reduction techniques was utilized for this exam: automated exposure control, adjustment of the mA and/or kV according to patient size, and use of iterative reconstruction. COMPARISON: 02/24/2025 CT, 02/01/2025 CT. FINDINGS: Vertebrae: No evidence of acute fracture in the lumbar spine. Lumbarization of the S1 vertebral body. Superior endplate compression fractures of the L2 vertebral body are again noted, resulting in 15%?20% reduction of height. Thin lucent lines in the pedicles of the L2 vertebra are again noted, suggestive of possible old trabecular injury. Minimal grade 1 anterolisthesis of L4 over L5 is again noted. The lumbar lordotic curvature is maintained. Multilevel marginal anterior osteophytes and posterior osteophytes. Intervertebral Discs: Multilevel disc osteophyte complexes and herniations, resulting in neural foraminal narrowing. Moderate to severe reduction of the L5-S1 disc space. Facet Joints: Moderate degenerative changes. Soft Tissues: The paraspinal soft tissues are normal in appearance without evidence of mass or abnormal fluid collection. Additional Findings: Bilateral chronic sacroiliitis. Please refer to dedicated CT abdomen and chest reports. IMPRESSION: 1. No evidence of acute fracture in the lumbar spine. 2. Lumbarization of the S1 vertebral body. 3. Superior endplate compression fractures of the L2 vertebral body are again noted, resulting in 15%?20% reduction of height. 4. Minimal grade 1 anterolisthesis of L4 over L5 is again noted. 5. Moderate lumbar spondylosis. Stable. Electronically signed by Timothy Coto 05-18-2025 05:35 AM
--- NOTE | 2025-05-18 05:41 | CT Scan Report ---
EXAM: CT abd pelvis IV con only CLINICAL HISTORY: Fall. 2 day downtime. Trauma. TECHNIQUE: Contrast-enhanced CT of the abdomen and pelvis was performed, with the following protocol: axial images, reconstructed coronal images, and sagittal images. One of the following dose reduction techniques was utilized for this exam: automated exposure control, adjustment of the mA and/or kV according to patient size, and use of iterative reconstruction. COMPARISON: 02/24/2025, 02/01/2025 FINDINGS: Abdomen: Liver: The liver has lobulated margins, with an already diagnosed case of liver cirrhosis. There is redemonstration of a well-defined hyperdensity with strong artifact appreciated in the posterior segment of the right lobe of the liver; correlation with prior intervention is recommended. Redemonstration of post-intervention changes along the lower thoracic esophagus with multiple collaterals and mild dilatation of the lower thoracic esophagus is noted. Gallbladder and Biliary System: Multiple hyperdensities are again noted, representing calculi with sludge. Pancreas: The pancreatic head, body, and tail are visualized and appear normal in size and density. No pancreatic masses or calcifications are noted. Spleen: The spleen is normal in size, shape, and density. No splenic lesions or masses are identified. Appendix: The appendix is normal in size without gita-appendiceal fat stranding and without an appendicolith. Kidneys and Adrenal Glands: Both kidneys are normal in size, shape, and position. Cortical thickness is within normal limits. A well-defined hypodense lesion measuring 2.6 x 3 cm is appreciated in the lower pole of the right kidney, with a few thin linear hyperdensities. No renal calculi or hydronephrosis. A small left renal cyst. The left adrenal gland is bulky. Pelvis: Urinary bladder: Normal in contour and wall thickness. No intraluminal lesions are seen. Prostate: Normal in size and contour. Peritoneal and Retroperitoneal Structures: Marked abdominopelvic ascites are again noted. Multiple subcentimeter-sized mesenteric lymph nodes are appreciated in the gallbladder. Atherosclerotic changes are appreciated in the abdominal aorta and its bifurcations. Bowel: Mural thickening of multiple small bowel loops appears to be reactive in nature. Sigmoid diverticulosis is again noted. The appendix is not well delineated. Bones and Soft Tissues: There is redemonstration of generalized anasarca, which is more prominent on the right side in the present study. Degenerative changes are appreciated in the visualized spine with reduced intervertebral disc space at the L5-S1 level with vacuum phenomenon. Superior endplate collapse of the L2 vertebral body with adjacent vacuum phenomena in the disc is again noted. The T10 vertebral body shows relatively reduced height with irregularity of the superior endplate. A small right inguinal hernia is again noted, containing minimal ascitic fluid. Please refer to dedicated CT lumbar spine and chest reports for detailed findings. IMPRESSION: 1. Unchanged hepatic cirrhosis with marked abdominopelvic ascites. 2. Unchanged uncomplicated cholelithiasis. 3. Unchanged complex right renal lower pole cyst. 4. Redemonstration of generalized anasarca, more prominent on the right side in the present study. 5. Post-intervention changes in the liver and along the lower thoracic esophagus; correlation with prior intervention details is recommended. 6. The rest of the stable findings are as detailed above. Electronically signed by Timothy Coto 05-18-2025 05:41 AM
[2025-05-18 05:43] LABS: Appearance Urine Clear (Clear); Glucose Urine UA Negative (Negative)
--- NOTE | 2025-05-18 05:53 | CT Scan Report ---
EXAM: CT thoracic spine w con CLINICAL HISTORY: Fall. 2 day downtime. Trauma. TECHNIQUE: CT scan of the thoracic spine was performed with the administration of intravenous contrast. Contiguous axial images were obtained from the upper thoracic spine to the lower thoracic spine. Coronal and sagittal reformatted images were also reviewed. One of the following dose reduction techniques was utilized for this exam: automated exposure control, adjustment of the mA and/or kV according to patient size, and use of iterative reconstruction. COMPARISON: 02/24/2025 CT chest reviewed for thoracic spine. FINDINGS: Vertebrae: There is no evidence of acute fracture in the thoracic spine. Superior endplate compression fractures of the T10 vertebral body are again noted, resulting in a 15%-20% reduction of height. The thoracic curvature is maintained. There are multilevel marginal anterior osteophytes. The rest of the vertebral bodies are normal in height. Intervertebral Discs: There are multilevel small posterior disc herniations indenting the ventral thecal sac. Facet Joints: There are mild degenerative changes. Paraspinal Soft Tissues: The paraspinal soft tissues are normal in appearance, without evidence of mass. There is bilateral pleural effusion (moderate on the right side and mild on the left side). Additional Findings: Please refer to the dedicated CT chest, abdomen, and lumbar spine report for detailed findings. IMPRESSION: 1. There is no evidence of acute fracture in the thoracic spine. 2. Superior endplate compression fractures of the T10 vertebral body are again noted, resulting in a 15%-20% reduction of height. 3. There is moderate thoracic spondylosis. 4. Bilateral pleural effusion (moderate on the right side and mild on the left side); details are included in the chest CT report. Electronically signed by Timothy Coto 05-18-2025 05:53 AM
--- NOTE | 2025-05-18 05:59 | Emergency Department Note ---
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 neural foraminal narrowing. Moderate to severe reduction of the L5-S1 disc space. Facet Joints: Moderate degenerative changes. Soft Tissues: The paraspinal soft tissues are normal in appearance without evidence of mass or abnormal fluid collection. Additional Findings: Bilateral chronic sacroiliitis. Please refer to dedicated CT abdomen and chest reports. IMPRESSION: 1. No evidence of acute fracture in the lumbar spine. 2. Lumbarization of the S1 vertebral body. 3. Superior endplate compression fractures of the L2 vertebral body are again noted, resulting in 15%?20% reduction of height. 4. Minimal grade 1 anterolisthesis of L4 over L5 is again noted. 5. Moderate lumbar spondylosis. Stable. Electronically signed by Timothy Coto 05-18-2025 05:[address] 05/18/25 03:01 EXAM: CT thoracic spine w con CLINICAL HISTORY: Fall. 2 day downtime. Trauma. TECHNIQUE: CT scan of the thoracic spine was performed with the administration of intravenous contrast. Contiguous axial images were obtained from the upper thoracic spine to the lower thoracic spine. Coronal and sagittal reformatted images were also reviewed. One of the following dose reduction techniques was utilized for this exam: automated exposure control, adjustment of the mA and/or kV according to patient size, and use of iterative reconstruction. COMPARISON: 02/24/2025 CT chest reviewed for thoracic spine. FINDINGS: Vertebrae: There is no evidence of acute fracture in the thoracic spine. Superior endplate compression fractures of the T10 vertebral body are again noted, resulting in a 15%-20% reduction of height. The thoracic curvature is maintained. There are multilevel marginal anterior osteophytes. The rest of the vertebral bodies are normal in height. Intervertebral Discs: There are multilevel small posterior disc herniations indenting the ventral thecal sac. Facet Joints: There are mild degenerative changes. Paraspinal Soft Tissues: The paraspinal soft tissues are normal in appearance, without evidence of mass. There is bilateral pleural effusion (moderate on the right side and mild on the left side). Additional Findings: Please refer to the dedicated CT chest, abdomen, and lumbar spine report for detailed findings. IMPRESSION: 1. There is no evidence of acute fracture in the thoracic spine. 2. Superior endplate compression fractures of the T10 vertebral body are again noted, resulting in a 15%-20% reduction of height. 3. There is moderate thoracic spondylosis. 4. Bilateral pleural effusion (moderate on the right side and mild on the left side); details are included in the chest CT report. Electronically signed by Timothy Coto 05-18-2025 05:53 AM Abdomen/Pelvis CT 05/18/25 03:02 EXAM: CT abd pelvis IV con only CLINICAL HISTORY: Fall. 2 day downtime. Trauma. TECHNIQUE: Contrast-enhanced CT of the abdomen and pelvis was performed, with the following protocol: axial images, reconstructed coronal images, and sagittal images. One of the following dose reduction techniques was utilized for this exam: automated exposure control, adjustment of the mA and/or kV according to patient size, and use of iterative reconstruction. COMPARISON: 02/24/2025, 02/01/2025 FINDINGS: Abdomen: Liver: The liver has lobulated margins, with an already diagnosed case of liver cirrhosis. There is redemonstration of a well-defined hyperdensity with strong artifact appreciated in the posterior segment of the right lobe of the liver; correlation with prior intervention is recommended. Redemonstration of post-intervention changes along the lower thoracic esophagus with multiple collaterals and mild dilatation of the lower thoracic esophagus is noted. Gallbladder and Biliary System: Multiple hyperdensities are again noted, representing calculi with sludge. Pancreas: The pancreatic head, body, and tail are visualized and appear normal in size and density. No pancreatic masses or calcifications are noted. Spleen: The spleen is normal in size, shape, and density. No splenic lesions or masses are identified. Appendix: The appendix is normal in size without gita-appendiceal fat stranding and without an appendicolith. Kidneys and Adrenal Glands: Both kidneys are normal in size, shape, and position. Cortical thickness is within normal limits. A well-defined hypodense lesion measuring 2.6 x 3 cm is appreciated in the lower pole of the right kidney, with a few thin linear hyperdensities. No renal calculi or hydronephrosis. A small left renal cyst. The left adrenal gland is bulky. Pelvis: Urinary bladder: Normal in contour and wall thickness. No intraluminal lesions are seen. Prostate: Normal in size and contour. Peritoneal and Retroperitoneal Structures: Marked abdominopelvic ascites are again noted. Multiple subcentimeter-sized mesenteric lymph nodes are appreciated in the gallbladder. Atherosclerotic changes are appreciated in the abdominal aorta and its bifurcations. Bowel: Mural thickening of multiple small bowel loops appears to be reactive in nature. Sigmoid diverticulosis is again noted. The appendix is not well delineated. Bones and Soft Tissues: There is redemonstration of generalized anasarca, which is more prominent on the right side in the present study. Degenerative changes are appreciated in the visualized spine with reduced intervertebral disc space at the L5-S1 level with vacuum phenomenon. Superior endplate collapse of the L2 vertebral body with adjacent vacuum phenomena in the disc is again noted. The T10 vertebral body shows relatively reduced height with irregularity of the superior endplate. A small right inguinal hernia is again noted, containing minimal ascitic fluid. Please refer to dedicated CT lumbar spine and chest reports for detailed findings. IMPRESSION: 1. Unchanged hepatic cirrhosis with marked abdominopelvic ascites. 2. Unchanged uncomplicated cholelithiasis. 3. Unchanged complex right renal lower pole cyst. 4. Redemonstration of generalized anasarca, more prominent on the right side in the present study. 5. Post-intervention changes in the liver and along the lower thoracic esophagus; correlation with prior intervention details is recommended. 6. The rest of the stable findings are as detailed above. Electronically signed by Timothy Coto 05-18-2025 05:[address] 05/18/25 03:02 EXAM: CT cervical spine wo con CLINICAL HISTORY: Fall. 2-day downtime. Trauma. TECHNIQUE: CT scan of the cervical spine was performed without the administration of intravenous contrast. Contiguous axial images were obtained from the skull base to the upper thoracic spine. Coronal and sagittal reformatted images were also reviewed. One of the following dose reduction techniques was utilized for this exam: automated exposure control, adjustment of the mA and/or kV according to patient size, and use of iterative reconstruction. COMPARISON: 02/24/2025 CT. FINDINGS: Vertebrae: There is no evidence of an acute fracture in the cervical spine. There is a loss of cervical lordosis with straightening of the curvature. Lower cervical anterior and posterior osteophytes with uncovertebral hypertrophy are noted. Vertebral heights are maintained. Atlantodental osteoarthritic changes are present. Intervertebral Discs: C5-C6: Posterior disc osteophyte complexes result in mild neural foraminal narrowing. Facet Joints: Mild degenerative changes are noted. Soft Tissues: Mild soft tissue swelling involving the neck, predominantly on the right side. This is a new interval finding. Additional Findings: Please refer to the dedicated CT chest report for detailed findings on the left clavicle fracture and effusions. IMPRESSION: 1. No evidence of acute fracture in the cervical spine. 2. Mild soft tissue swelling involving the neck, predominant on the right side. This is a new interval finding. 3. Mild cervical spondylodegenerative changes as described above, unchanged. Electronically signed by Timothy Coto 05-18-2025 05:[address] 05/18/25 03:02 EXAM: CT chest diagnostic w con CLINICAL HISTORY: Fall. 2 day downtime. Trauma. TECHNIQUE: Contiguous axial CT images of the chest were acquired with administration of 93cc Optiray 320 intravenous contrast. Coronal and sagittal reconstructions were obtained. One of the following dose reduction techniques was utilized for this exam: automated exposure control, adjustment of the mA and/or kV according to patient size, or use of iterative reconstruction. COMPARISON: 02/24/2025 CT. FINDINGS: Bones: There is new interval development of fractures of the right seventh to ninth ribs with overlying soft tissue swelling. Fracture of the medial end of the left clavicle is again noted, with interval progression of the surrounding periosteal reaction. An undisplaced fracture of the left eighth rib in the lateral aspect is again noted. Subtle fractures of the left sixth rib in the lateral aspect and bilateral fifth ribs in the anterior aspect are again noted. Degenerative changes in the thoracic spine are again noted. Superior endplate compression fractures of the T10 and L2 vertebral bodies are again noted, resulting in a 15%?20% reduction in height. Lungs: There is a new interval development of mild to moderate right-sided pleural effusion. There is a new interval development of the collapse of the right middle lobe. There is an interval reduction in the volume of the left-sided pleural effusion with minimal effusion at present. Stable subpleural 4?5 mm nodules in the right middle lobe and a 4 mm ground-glass nodule in the right lower lobe. Stable. Bilateral apical paraseptal emphysematous changes are present. Mediastinum: A few subcentimetric non-specific mediastinal nodes are present. The heart size is within normal limits. Atherosclerotic changes are noted in the thoracic aorta. The lower thoracic esophagus is mildly dilated with post-intervention changes and multiple mechanical surgical coils. Stable. Trachea and Main Bronchi: The trachea and main bronchi are patent without evidence of obstruction or abnormality. Chest Wall: Mild soft tissue swelling in the right lateral chest wall is present. Upper Abdomen: Please refer to the dedicated CT abdomen report. IMPRESSION: 1. New interval development of fractures of the right seventh to ninth ribs with overlying soft tissue swelling. 2. New interval development of mild to moderate right-sided pleural effusion. 3. New interval development of the collapse of the right middle lobe. 4. Interval reduction in the volume of the left-sided pleural effusion with minimal effusion at present. 5. Fracture of the medial end of the left clavicle is again noted, with interval progression of the surrounding periosteal reaction. 6. The rest of the findings as described above. Electronically signed by Timothy Coto 05-18-2025 05:[address] 05/18/25 03:02 EXAM: CT facial bones wo con CLINICAL HISTORY: Fall. 2 day downtime. Trauma. TECHNIQUE: Non-contrast CT scan of the maxillofacial region was performed, with sagittal and coronal multiplanar reconstruction. One of the following dose reduction techniques was utilized for this exam: automated exposure control, adjustment of the mA and/or kV according to patient size, and use of iterative reconstruction. COMPARISON: 02/24/[address] head reviewed. FINDINGS: Facial Bones: No definite acute fracture detected. Old fractures or prominent nasal junctions of the nasal bone are seen on both sides, also present on the prior CT study. Zygomatic arches and other facial structures are intact. Soft Tissues: Soft tissue swelling involves the entire maxillofacial region, with subcutaneous fat stranding and predominant soft tissue swelling in the right parietotemporal region and underlying loculated scalp fluid collection. Sinuses: Mild mucosal thickening in the bilateral maxillary sinuses. New interval finding. Nasal Cavity: Left-sided nasal septal deviation. Orbits: Orbits are normal in size and shape. Extraocular muscles and optic nerves are normal. No evidence of orbital masses or proptosis. Maxilla and Mandible: Normal appearance of the maxillary and mandibular bones. No fractures, lytic, or sclerotic lesions. Salivary Glands: Parotid, submandibular, and sublingual glands are normal. No evidence of sialadenitis or masses. Temporomandibular Joints (TMJ): Normal appearance of the TMJ bilaterally. No evidence of joint effusion, degenerative changes, or dislocation. IMPRESSION: Soft tissue swelling involving the entire maxillofacial region with subcutaneous fat stranding and predominant soft tissue swelling in the right parietotemporal region and underlying loculated scalp fluid collection. Recommended clinical correlation. Old fractures or prominent nasal junctions of the nasal bone on both sides, also seen on the prior CT head study. Electronically signed by Timothy Coto 05-18-2025 05:22 AM MDM Narrative Physical exam and history were performed. Nursing notes, EMR, and Medication List were personally reviewed. No social concerns were identified as barriers to patients care. History was provided by the Patient and EMS. Patient appears to have had pain in his back, causing a fall, and presents after extended downtime outside. Estimated downtime was between 2 and 3 days. Patient is covered in dirt and debris. With the assistance of 3 nurses, we were able to disrobe the patient and begin the process of cleaning him, which took greater than 90 minutes by the 3 nurses at bedside. Outside of this the patient has several facial injuries, chest wall pain, and skin breakdown. He is chronically unwell at baseline and his blood pressure is stable in the 90s/60s, and he is not tachycardic. Vital signs without fever otherwise. Case was discussed with my attending who remained involved in care decision making. IV access x 2 was established and labs were obtained. Urine collected. Patient was sent to CT scan for miller CT imaging. Patient's blood work is as above and was reviewed. Patient does not have a significant elevated white blood cell count. He is anemic at 6.8, which is slightly down from his baseline which is typically in the sevens. He does not have a significant bandemia. Potassium slightly low at 3.1. Anion gap normal. There may be a small level of GRACIELA as his creatinine is 1.83. Bilirubin slightly elevated 1.9. Ammonia 121. Troponin slightly elevated at 46. EKG is not with ischemic findings. Initial CK elevated at 1904 suggesting rhabdo. He is also in heart failure with BNP of 261. Urine without distinct evidence of infection. CT scans were performed and independently reviewed by myself and radiology. Patient has several chronic findings in his back, clavicle, and abdomen. His primary new findings include scalp with edema and 3 rib fractures. There peers to be an effusion on the right side as well as some ascitic fluid on the belly. Escalation of care was considered, and felt to be necessary. I initially reached out to the [facility] hospitalist team very early in the patient's process to help facilitate with admission. There was some concern that the patient's effusion/fluid in the right lung could represent blood, and hospitalist team wanted clarification with radiology prior to admission. Case was ultimately forwarded to the daylight team, and I did speak with Dr. Hatfield, who agreed to evaluate patient here in the ER. Please see the hospitalist team dictation for further patient course, plan, disposition. The chart was completed utilizing [employer] Speech Voice Recognition Software. Grammatical errors, random word insertions, pronoun errors, and incomplete sentences are an occasional consequence of this system due to software limitations, ambient noise, and hardware issues. Any formal questions or concerns about the content, text, or information contained within the body of this dictation should be directly addressed to the provider for clarification. Impression & Plan Rhabdomyolysis, Ribs, multiple fractures, Multiple abrasions, Fall, Low hemoglobin, Hyperammonemia, Elevated troponin Discharge Plan Visit Data Chief Complaint: Back Injury/Pain Stated Complaint: Back Pain ED Provider: Layla Gagnon ED Midlevel Provider: Pedro Titus Discharge Problem: Rhabdomyolysis, Ribs, multiple fractures, Multiple abrasions, Fall, Low hemoglobin, Hyperammonemia, Elevated troponin Patient Disposition: Admitted As Inpatient Condition: Serious Discharge Instructions Interventions: ED Discharge Assessment Last Done: 05/18/25 11:11
--- NOTE | 2025-05-18 06:10 | Communication Note ---
Date of Service: May 18, 2025 Hospital service consulted at 6:10 AM to admit cirrhotic patient presenting with multiple traumatic injuries following fall. Chest CT showed multiple rib fractures on the right with new interval development of mild to moderate right sided pleural effusion. Concern for right hemothorax given history of trauma. [facility] radiologist requested to clarify nature of pleural effusion. ED provider requested to follow up on report addendum and to contact Pulmonology prior to hospitalist admission if pleural effusion characterized as hemothorax. I will sign out case to my colleague, Dr. Hatfield.
[2025-05-18 06:12] LABS: Amphetamines+Metham, Urine Neg (Neg); MDMA (Ecstacy), Urine Neg (Neg); Marijuana, Urine Neg (Neg)
[2025-05-18 06:21] LABS: Epithelial Cell Urine 0-2 /hpf (0-2)
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
[2025-05-18] MEDS: POTASSIUM CHLORIDE / WTR 10 MEQ/100 ML PLCT IV SCH (08:41)
[2025-05-18] MEDS: SODIUM CHLORIDE 0.9% 100 ML IV PRN (08:42)
[2025-05-18] MEDS ORDERED: ACETAMINOPHEN 1,000 MG/100 ML VIAL IV PRN (09:10)
[2025-05-18] MEDS: ACETAMINOPHEN 1000 MG/100 ML IV IV ONE (10:43)
[2025-05-18 11:47] LABS: iSTAT Art Bld Gas Base Excess 9.0 mmol/L (-9-1.8); iSTAT Art Bld Gas pCO2 Correct 35 mmHg (35-46); iSTAT Art Bld Gas pH Corrected 7.559 (7.35-7.45); iSTAT Arterial Blood Gas pO2 C 79
[2025-05-18] MEDS: PANTOprazole 40 MG/10 ML SYR IV SCH (11:59)
--- NOTE | 2025-05-18 12:54 | XRay Report ---
SINGLE VIEW CHEST CLINICAL HISTORY: Central venous catheter placement. FINDINGS: An AP, portable, upright chest radiograph is compared to study dated 04/14/2025 and correlat ed with chest CT dated 05/18/2025. The examination is degraded by portable technique and apical lordo tic positioning. A left internal jugular central venous catheter has been placed. The tip tip project s over the right atrium. The heart is enlarged noting atherosclerotic calcification of the thoracic a kimberly. There is mild pulmonary vascular congestion. Emphysema and chronic interstitial thickening kirill lar to previous. There is a layering right pleural effusion with right basilar consolidation. Trace p leural fluid is seen on the left. No pneumothorax is seen. The skeletal structures are osteopenic. Th e bony thorax is grossly intact. Vascular coils are seen in the upper abdomen. IMPRESSION: 1. A left internal jugular central venous catheter has been placed as above. No pneumothorax is ident ified post procedure. 2. Cardiomegaly and emphysema noting pulmonary vascular congestion. 3. Right larger than left pleural effusions with right basilar consolidation. ACT 112: Negative or not required by law. Electronically signed by: Taran Tam M.D. 05/18/2025 12:53 PM
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
--- NOTE | 2025-05-18 13:40 | XRay Report ---
SINGLE VIEW CHEST CLINICAL HISTORY: Status post thoracentesis. FINDINGS: An AP, portable, upright chest radiograph is compared to chest x-ray and chest CT performed earlier the same day 05/18/2025. The examination is degraded by portable technique and apical lordot ic positioning. A right internal jugular central venous infusion port is unchanged in position. The h eart is enlarged noting atherosclerotic calcification of the thoracic aorta. There is mild pulmonary vascular congestion. Emphysema and chronic interstitial thickening similar to previous. There is a la yering right pleural effusion with right basilar consolidation. Trace pleural fluid is seen on the le ft. No pneumothorax is seen. The skeletal structures are osteopenic. The bony thorax is grossly intac t. Vascular coils are seen in the upper abdomen. IMPRESSION: 1. No pneumothorax is identified post thoracentesis. 2. Cardiomegaly and emphysema noting pulmonary vascular congestion. 3. Right larger than left pleural effusions with right basilar consolidation. The right pleural effus ion appears somewhat decreased in size from previous. ACT 112: Negative or not required by law. Electronically signed by: Taran Tam M.D. 05/18/2025 1:39 PM
[2025-05-18 13:56] LABS: Albumin Level 1.9 gm/dl (3.4-5.0); Bilirubin,Total 3.9 mg/dl (0.2-1.0); Total Protein 5.2 gm/dl (6.0-8.3)
--- NOTE | 2025-05-18 14:05 | Procedure Note ---
Procedure Note Date of Service May 18, 2025 Procedure: Radial arterial line insertion, ultrasound-guided System Support Developer: Dr. Diane Haas Indication: Hypotension, shock Consent: Emergent procedure Anesthesia: 1% lidocaine without epinephrine local. Procedure: Fabrizio test was performed to ensure adequate perfusion on the left wrist. Skin was cleaned with chlorhexidine and sterile drape and gloves were donned. 1% lidocaine was used to numb the skin and soft tissue. The right radial artery was visualized under direct ultrasound guidance. Arrow radial arterial line kit needle was inserted into the left radial artery. Arterial blood was seen to pulsate in flash chamber. Internal guidewire was advanced into the radial artery and the catheter was advanced over the guidewire. Needle and wire were withdrawn. Pulsatile blood return from the catheter. Pressure was applied to the end of the catheter. Catheter was attached to the arterial line tubing. Pulsatile arterial waveform was visualized. Catheter was secured with suture and dressing was applied. Biofilm placed. Patient tolerated the procedure well. Blood loss: Less than 2 cc Complications: None [facility] [place] Procedure Codes (Charges) Tubes, Drains, and Vasc Access Procedure 1: Tubes, Drains, and Vasc Access: [id number] Arterial Cath/Cannulation Sampling/Monitoring/Transfusion Coding CPT Codes Tubes, Drains, and Vasc Access - Tubes, Drains, and Vasc Access: [id number] Arterial Cath/Cannulation Sampling/Monitoring/Transfusion ([id number]) Additional Codes Date of Service (PG.SURGERY)
--- NOTE | 2025-05-18 14:06 | Procedure Note ---
Procedure Note Date of Service May 18, 2025 Procedure: Inserting ultrasound-guided central line welder: Dr. Diane Haas Indication: Hypotension Consent: Emergent Anesthesia: 1% lidocaine without epinephrine local. Procedure: Appropriate imaging studies were reviewed prior to the procedure. Under aseptic and sterile condition, left IJ vein was accessed under direct ultrasound guidance. Guidewire was confirmed to be within the lumen of vein with the help of ultrasound. Catheter was introduced via Seldinger technique. Guide a wire was removed. Good non-pulsatile blood flow was appreciated from all the ports. The catheter was placed at 20 cm and sut[address] in place. BioPatch was applied to the catheter and a sterile Tegaderm dressing was applied over the catheter with careful attention to sterility. Chest x-ray shows good position of central venous catheter without evidence of pneumothorax. Patient tolerated the procedure well. Blood loss: Less than 2 cc Complications: None [facility] [place] Procedure Codes (Charges) Tubes, Drains, and Vasc Access Procedure 1: Tubes, Drains, and Vasc Access: [id number] Insertion Of Non-tunneled Catheter Age 7 Yrs> Coding CPT Codes Tubes, Drains, and Vasc Access - Tubes, Drains, and Vasc Access: [id number] Insertion Of Non-tunneled Catheter Age 7 Yrs> ([id number]) Additional Codes Date of Service (PG.SURGERY)
--- NOTE | 2025-05-18 14:09 | Procedure Note ---
Procedure Note Date of Service May 18, 2025 Procedure: Diagnostic therapeutic ultrasound-guided catheter paracentesis Care Process Manager: Dr. Diane Haas Indication: Ascites to rule out SBP Consent: Emergent Anesthesia: 1% lidocaine without epinephrine local. Procedure: Appropriate imaging studies were reviewed prior to the procedure. Patient was placed in a supine position and limited abdominal ultrasound was performed. Appropriate site for paracentesis was selected. The skin was prepped and draped in normal sterile fashion. Lidocaine was used for local analgesia. Fluid was aspirated via the finder needle. A small skin po was made with the scalpel and the catheter over the needle apparatus was advanced via Z technique. Using the syringe one-way valve system, a total of 2000 mL's of yellow cloudy fluid was removed. The catheter was removed and observed to be intact. A sterile dressing was applied. Fluid was sent for labs, culture. The patient tolerated the procedure without obvious complication Blood loss: Less than 2 cc [facility] [place] Procedure Codes (Charges) Abdomen Abdominal: 32917 Abdominal Paracentesis (diagnostic or therapeutic); W/O imaging Coding CPT Codes Abdomen - Abdominal: 47048 Abdominal Paracentesis (diagnostic or therapeutic); W/O imaging ([id number]) Additional Codes Date of Service (PG.SURGERY)
--- NOTE | 2025-05-18 14:10 | Procedure Note ---
Procedure Note Date of Service May 18, 2025 Procedure: Diagnostic therapeutic ultrasound-guided catheter thoracentesis Scooping Machine Tender: Dr. Diane Haas Indication: Pleural effusion, rule out hemothorax Consent: Emergent Anesthesia: 1% lidocaine without epinephrine local. Procedure: Appropriate imaging studies were reviewed prior to the procedure. Patient was placed in a seated position and limited thoracic ultrasound was performed of the right chest. Appropriate site above the diaphragm for thoracentesis was selected. The skin was prepped and draped in normal sterile fashion. Lidocaine was used for local analgesia. Fluid was aspirated via the finder needle. A small skin po was made with the scalpel and the catheter over the needle apparatus was advanced over the rib into the pleural space. Using the syringe one-way valve system, a total of 600 mL's of yellow-pinkish cloudy fluid was removed. Procedure was terminated due to no more flow. The catheter was removed and observed to be intact. A sterile dressing was applied. Post procedure chest x-ray was ordered. Fluid was sent for labs, culture and cytology. Complications: None Blood loss: Less than 1 mL [facility] [place] Procedure Codes (Charges) Pulmonary/Thoracic Procedure 1: Pulmonary and Thoracic: 01322 Thoracentesis w/o imaging Coding CPT Codes Pulmonary/Thoracic - Pulmonary and Thoracic: 95323 Thoracentesis w/o imaging ([id number]) Additional Codes Date of Service ([facility].SURGERY)
[2025-05-18] MEDS: LACTULOSE SYRUP 20 GM/30 ML UDC PO SCH (14:15)
[2025-05-18] MEDS: ERYTHROMYCIN OP OINT 5 MG/GM 3.5 GM TUBE OPB SCH (14:16)
[2025-05-18 14:48] LABS: Appearance Pleural Fluid Cloudy; Color Pleural Fluid Straw; RBC Pleural Fluid Auto 12000 /uL; Source Pleural Fluid Right Lung; WBC Pleural Fluid Auto 24120 /uL
[2025-05-18 15:25] LABS: Appearance Peritoneal Fluid Hazy; Color Peritoneal Fluid Yellow; RBC Peritoneal Fluid Auto 2000 /uL; WBC Peritoneal Fluid Auto 71 /ul (0-300)
[2025-05-18] MEDS: NOREPINEPHRINE/D5W 4 MG/250 ML IV ONE ×2 (15:36→16:52)
[2025-05-18] MEDS ORDERED: STAT IV Infusion **Titration per Protocol STA ×2 (16:12→21:00)
[2025-05-18 16:33] LABS: Hematocrit (blood only) 24.3 % (42.0-52.0); Hemoglobin 8.2 g/dl (14.0-18.0); Mean Corpuscular Hemoglobin 29.3 pg (25.0-34.0); Mean Corpuscular Volume 86.8 fL (80.0-100.0); Platelet Count 138 K/uL (130-400); RDW Standard Deviation 63.9 fL (36.4-46.3); Red Blood Count 2.80 M/uL (4.70-6.10); White Blood Count 9.53 K/ul (4.8-10.8)
[2025-05-18] MEDS: CEFEPIME 2000MG 2,000 MG/20 ML SYR IV SCH (16:50)
[2025-05-18] MEDS: CALCIUM GLUCONATE 1,000 MG/60 ML BAG IV SCH (16:50)
[2025-05-18] MEDS: THIAMINE HCL 500 MG in SODIUM CHLORIDE 0.9% 50 ML IV SCH (16:51)
[2025-05-18] MEDS: ALBUMIN 25% 12.5 GM/50 ML VIAL IV SCH (16:51)
[2025-05-18] MEDS: metroNIDAZOLE 500 MG/100 ML BAG IV SCH (16:51)
[2025-05-18] MEDS: NOREPINEPHRINE/D5W 4 MG/250 ML PLCT IV SCH (16:52)
[2025-05-18] MEDS: SODIUM CHLORIDE 0.9% 500 ML IV SCH (16:55)
--- NOTE | 2025-05-18 19:43 | Electrocardiogram Report ---
Test Reason : Blood Pressure : */* mmHG Vent. Rate : 86 BPM Atrial Rate : 86 BPM P-R Int : 160 ms QRS Dur : 96 ms QT Int : 454 ms P-R-T Axes : 57 88 44 degrees QTcB Int : 543 ms Normal sinus rhythm Low voltage QRS Borderline ECG When compared with ECG of 14-Apr-2025 11:22, QT has lengthened Confirmed by Renny Beebe ([id number]) on 05/18/2025 7:43:12 PM Referred By: REFERRED SELF Confirmed By: Renny Beebe
[2025-05-18] MEDS: VASOPRESSIN 20 UNITS in SODIUM CHLORIDE 0.9% 100 ML IV SCH (21:14)
[2025-05-18 23:02] LABS: Hematocrit (blood only) 22.3 % (42.0-52.0); Hemoglobin 7.0 g/dl (14.0-18.0); Mean Corpuscular Hemoglobin 27.7 pg (25.0-34.0); Mean Corpuscular Volume 88.1 fL (80.0-100.0); Platelet Count 126 K/uL (130-400); RDW Standard Deviation 67.7 fL (36.4-46.3); Red Blood Count 2.53 M/uL (4.70-6.10); White Blood Count 7.74 K/ul (4.8-10.8)
[2025-05-19 00:26] LABS: Anion Gap 12.0 (3-11); Blood Urea Nitrogen 58.0 mg/dl (6-23); Calcium 8.3 mg/dl (8.6-10.3); Carbon Dioxide 28.0 mmol/L (21-32); Chloride 102.0 mmol/L (98-107); Creatinine Clr Calc Pharmacy 42.4 ml/min; Glucose 156.0 mg/dl (70-99(Fasting)); Potassium 2.5 mmol/L (3.5-5.1); Sodium 142.0 mmol/L (136-145)
[2025-05-19] MEDS: POTASSIUM CHLORIDE / WTR 20 MEQ/100 ML PLCT IV SCH ×2 (00:36→07:59)
[2025-05-19 06:32] LABS: Hematocrit (blood only) 20.2 % (42.0-52.0); Hemoglobin 6.8 g/dl (14.0-18.0); Mean Corpuscular Hemoglobin 29.3 pg (25.0-34.0); Mean Corpuscular Volume 87.1 fL (80.0-100.0); Platelet Count 102 K/uL (130-400); RDW Standard Deviation 66.9 fL (36.4-46.3); Red Blood Count 2.32 M/uL (4.70-6.10); White Blood Count 6.23 K/ul (4.8-10.8)
[2025-05-19] MEDS ORDERED: SODIUM CHLORIDE 0.9% 100 ML IV PRN (06:33)
[2025-05-19 06:48] LABS: Acanthocytes 1+; Anisocytosis Present; Immature Granulocytes # (auto) 0.03 K/uL (0.01-0.20); Immature Granulocytes % (auto) 0.5 %
[2025-05-19 06:55] LABS: Mono,Macrophage,Mesothelial 4 %; Neutrophils, Fluid 96 %
[2025-05-19 06:55] LABS: Eosinophils, Fluid 1 %; Lymphocytes, Fluid 75 %; Mono,Macrophage,Mesothelial 14 %; Neutrophils, Fluid 10 %
[2025-05-19 06:55] LABS: INR 1.6 (0.9-1.1); Prothrombin Time 16.5 Seconds (9.0-12.0)
[2025-05-19 06:56] LABS: Alanine Aminotransferase 33.0 U/L (7-52); Albumin Globulin Ratio 0.8 (0.9-2); Albumin Level 2.4 gm/dl (3.4-5.0); Alkaline Phosphatase 51.0 U/L (34-104); Anion Gap 10.0 (3-11); Bilirubin,Total 3.6 mg/dl (0.2-1.0); Blood Urea Nitrogen 54.0 mg/dl (6-23); Calcium 8.2 mg/dl (8.6-10.3); Carbon Dioxide 28.0 mmol/L (21-32); Chloride 103.0 mmol/L (98-107); Creatine Kinase 760.0 U/L (30-223); Creatinine Clr Calc Pharmacy 45.7 ml/min; Globulin 3.1 gm/dl (2.5-4.0); Glucose 160.0 mg/dl (70-99(Fasting)); Magnesium 2.2 mg/dl (1.7-2.4); Potassium 2.9 mmol/L (3.5-5.1); Sodium 141.0 mmol/L (136-145); Total Protein 5.5 gm/dl (6.0-8.3)
--- NOTE | 2025-05-19 08:14 | XRay Report ---
EXAM: XR chest 1V portable CLINICAL HISTORY: f/u effusion TECHNIQUE: An X-ray image of the chest was obtained in AP projection. COMPARISON: Prior CT chest dated 05/18/2025. FINDINGS: Pulmonary Parenchyma: There is unchanged obliteration of the right costophrenic angle, denoting pleural effusion with associated large opacity and collapse in the right lower lung zone. There is unchanged obliteration of the left costophrenic angle, denoting mild pleural effusion. No definite pulmonary nodules are identified. A newly placed nasogastric tube is visualized, with its distal tip seen well positioned in the left hypochondrial region. A newly placed left central venous line is present, with its tip located at the cavoatrial junction. Heart and Mediastinum: The heart size is normal. There is no mediastinal widening or masses. No hilar or mediastinal lymphadenopathy is identified. Stable atheromatous calcifications are seen in the arch of the aorta. Bony Thorax: Degenerative changes are noted in the scanned spine. The previously noted left medial clavicular fracture and bilateral rib fractures are not clearly demonstrated on the radiograph. Soft Tissues: EKG leads are projected over the chest wall. Soft tissues overlying the chest wall are unremarkable. Stable upper abdominal metallic densities, likely from prior intervention, are present and require clinical correlation. IMPRESSION: 1. No acute cardiopulmonary abnormalities are identified. 2. Unchanged mild bilateral pleural effusion. 3. Newly placed nasogastric tube in adequate position. 4. Newly placed left central venous line with tip at the cavoatrial junction. Electronically signed by Timothy Coto 05-19-2025 08:14 AM
--- NOTE | 2025-05-19 08:38 | XCELERA ---
[id number]
--- NOTE | 2025-05-19 09:30 | Critical Care Progress Note ---
Date of Service May 19, 2025 Assessment & Plan (1) Shock: (2) Acute blood loss anemia: (3) GRACIELA (acute kidney injury): (4) Hepatorenal syndrome: (5) Ascites: (6) Pleural effusion: (7) Hypokalemia: (8) Acute hepatic encephalopathy: (9) Decompensated hepatic cirrhosis: (10) Rhabdomyolysis: (11) Ribs, multiple fractures: (12) Multiple abrasions: Plan Patient is a 54-year-old male with a history of decompensated cirrhosis with ascites, he follows with hepatology and receives weekly paracentesis. 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 Reason Critically Ill: Shock state, likely septic Acute kidney injury on top of CKD Rhabdomyolysis Decompensated cirrhosis Likely hepatorenal syndrome Ascites Pleural effusion (hemothorax ruled out) Hepatic encephalopathy History of alcohol abuse Rib fractures Multiple abrasions Homeless Neuro: Altered mentation. Improved/resolved - Soft tissue swellings appreciated, loculated scalp fluid collection also appreciated. Chronic lactulose therapy Hyperammonemia significantly improved Cardiac: Most recent echo was January 2024: EF was 60 to 65%, mild concentric LVH. Normal RV size and function. - Reviewed 05/19 echo Wean vasoactives as able - Probable hepatorenal syndrome - Day 2 vasoconstrictor therapy: Central venous catheter and arterial line are in place. Respiratory: Maintaining saturation with nasal cannula. ABG without evidence of hypercapnia. Multiple closed rib fractures right side 789 - CT of the chest showed mild to moderate right sided pleural effusion which is a new finding for him. Right middle lobe atelectasis. Small pulmonary nodules. Emphysema appreciated. Nonspecific mediastinal adenopathy. Soft tissue swelling appreciated of the right chest wall with fractures of the right 7th-9th ribs. -Thoracentesis was performed at bedside 05/18 Repeat chest x-ray encouraging Suspect right-sided pleural effusion related to recent trauma - Doubtful to represent empyema Will initiate bronchodilators given history of COPD and emphysema on CT imaging. GI: Patient has a history of GI bleeding multiple varices and has had multiple coiling's performed in the past. Has acute blood loss anemia at this time. Status post paracentesis with 2 L of fluid removed. Cloudy yellow fluid removed, 65% lymphocytes, no evidence of SBP, low protein. Will place NG tube. Lavage negative Pantoprazole IV twice daily. If there is evidence of GI bleed we will switch to PPI drip. Received 87 g albumin 05/18, 50 g IV albumin today Lactulose daily - MELD 22 - Reviewed GI consultation notes from 02/26/25 and 03/10/25, it appears patient would be unlikely candidate for liver transplant, will transition to midodrine and octreotide RENAL/LYTES: Hepatorenal syndrome is possible given decompensated cirrhosis and new GRACIELA.: Improving Zapata catheter is in place, monitoring strict I's and O's. Avoiding nephrotoxins. - Replating electrolytes - Unclear baseline patient had creatinine 1.24-1.33 during February and March of this year : Zapata catheter. ENDO: Will monitor blood glucose every 6 hours. HEME: Acute blood loss anemia. No ongoing obvious blood losses has received 3 units packed red blood cells so far Lavage reported negative Repeat H&H at 5 PM today ID: Negative white count, afebrile, cultures no growth to date - Continue cefepime Flagyl for 48 to 72 hours then strongly consider discontinuation MRSA nares is negative. Possible fluid collection on scalp, could just be secondary to a fall which he endorses. Urine is negative for nitrates and leukocyte esterase. Obtain blood cultures x 2. Plan: Obtain speech evaluation today Admission and Anticipated Discharge Date Admission Date: May 18, 2025 Supervising Physician Co-Signing Physician Notes I have personally spent 70 minutes of critical care time in the direct management of this patient. This is a life/limb threatening event. This includes time spent evaluating patient, direct bedside care, chart review, placing orders, interpretation of diagnostic studies, discussion with consultants, patient, and/or family members regarding treatment decisions, as well as other required patient management activities. This time is exclusive of all separately billable procedures, and teaching time and separate from and in addition to any other critical care service time. Subjective Patient was asking for a Snickers bar this morning Physical Exam Physical Exam: General: Alert. nontoxic. Skin: Warm, dry, Head: Atraumatic Ears, nose, mouth and throat: airway patent Cardiovascular: Normal peripheral perfusion Respiratory: no respiratory distress Gastrointestinal: Non distended Musculoskeletal: No deformity Results & Data Results & Data Vital Signs (Past 12 Hours) Vital Signs Temp Pulse Pulse Resp BP BP BP 10/20/25 07:53 36.7 C 63 17 127/59 L 05/19/25 07:51 36.7 C 66 16 129/57 L 05/19/25 06:06 63 19 05/19/25 06:00 109/67 05/19/25 05:54 61 14 05/19/25 05:30 61 14 05/19/25 05:06 62 14 05/19/25 05:00 114/71 05/19/25 04:30 61 15 05/19/25 04:12 62 14 05/19/25 04:00 111/66 05/19/25 04:00 111/66 05/19/25 03:51 63 18 05/19/25 03:45 36.6 C 67 19 05/19/25 03:03 65 20 05/19/25 03:00 110/70 05/19/25 03:00 110/70 05/19/25 03:00 110/70 05/19/25 02:00 125/69 05/19/25 02:00 125/69 05/19/25 02:00 62 15 05/19/25 01:42 60 14 05/19/25 01:03 63 19 05/19/25 01:00 118/70 05/19/25 01:00 118/70 05/19/25 00:51 61 15 05/19/25 00:36 63 16 05/19/25 00:03 62 23 05/19/25 00:00 113/71 05/19/25 00:00 113/71 05/18/25 23:56 36.6 C 62 21 137/61 05/18/25 23:02 61 05/18/25 23:00 36.6 C 61 14 139/60 133/83 05/18/25 22:42 64 13 05/18/25 22:03 64 16 05/18/25 21:30 67 14 Pulse Ox O2 Del Method O2 Flow Rate 05/19/25 07:53 92 2 05/19/25 07:51 92 2 05/19/25 06:06 91 05/19/25 06:00 05/19/25 05:54 90 05/19/25 05:30 90 Room Air 05/19/25 05:06 90 Room Air 05/19/25 05:00 05/19/25 04:30 90 05/19/25 04:12 91 05/19/25 04:00 05/19/25 04:00 05/19/25 03:51 92 Room Air 05/19/25 03:45 92 05/19/25 03:03 91 Room Air 05/19/25 03:00 05/19/25 03:00 05/19/25 03:00 05/19/25 02:00 05/19/25 02:00 05/19/25 02:00 92 Room Air 05/19/25 01:42 91 05/19/25 01:03 92 Room Air 05/19/25 01:00 05/19/25 01:00 05/19/25 00:51 92 05/19/25 00:36 92 05/19/25 00:03 92 Room Air 05/19/25 00:00 05/19/25 00:00 05/18/25 23:56 93 Room Air 05/18/25 23:02 05/18/25 23:00 94 Room Air 05/18/25 22:42 92 Room Air 05/18/25 22:03 93 Room Air 05/18/25 21:30 90 Room Air Critical Care Results & Data Vital Signs (Past 12 Hours) Vital Signs Temp Pulse Pulse Resp BP BP BP 05/19/25 07:53 36.7 C 63 17 127/59 L 05/19/25 07:51 36.7 C 66 16 129/57 L 05/19/25 06:06 63 19 05/19/25 06:00 109/67 05/19/25 05:54 61 14 05/19/25 05:30 61 14 05/19/25 05:06 62 14 05/19/25 05:00 114/71 05/19/25 04:30 61 15 05/19/25 04:12 62 14 05/19/25 04:00 111/66 05/19/25 04:00 111/66 05/19/25 03:51 63 18 05/19/25 03:45 36.6 C 67 19 05/19/25 03:03 65 20 05/19/25 03:00 110/70 05/19/25 03:00 110/70 05/19/25 03:00 110/70 05/19/25 02:00 125/69 05/19/25 02:00 125/69 05/19/25 02:00 62 15 05/19/25 01:42 60 14 05/19/25 01:03 63 19 05/19/25 01:00 118/70 05/19/25 01:00 118/70 05/19/25 00:51 61 15 05/19/25 00:36 63 16 05/19/25 00:03 62 23 05/19/25 00:00 113/71 05/19/25 00:00 113/05/18/25 23:56 36.6 C 62 21 137/61 05/18/25 23:02 61 05/18/25 23:00 36.6 C 61 14 139/60 133/83 05/18/25 22:42 64 13 05/18/25 22:03 64 16 05/18/25 21:30 67 14 Pulse Ox O2 Del Method O2 Flow Rate 05/19/25 07:53 92 2 05/19/25 07:51 92 2 05/19/25 06:06 91 05/19/25 06:00 05/19/25 05:54 90 05/19/25 05:30 90 Room Air 05/19/25 05:06 90 Room Air 05/19/25 05:00 05/19/25 04:30 90 05/19/25 04:12 91 05/19/25 04:00 05/19/25 04:00 05/19/25 03:51 92 Room Air 05/19/25 03:45 92 05/19/25 03:03 91 Room Air 05/19/25 03:00 05/19/25 03:00 05/19/25 03:00 05/19/25 02:00 05/19/25 02:00 05/19/25 02:00 92 Room Air 05/19/25 01:42 91 05/19/25 01:03 92 Room Air 05/19/25 01:00 05/19/25 01:00 05/19/25 00:51 92 05/19/25 00:36 92 05/19/25 00:03 92 Room Air 05/19/25 00:00 05/19/25 00:00 05/18/25 23:56 93 Room Air 05/18/25 23:02 05/18/25 23:00 94 Room Air 05/18/25 22:42 92 Room Air 05/18/25 22:03 93 Room Air 05/18/25 21:30 90 Room Air Lab & Micro Results (Past 24 Hours) RBC 2.32 M/uL (4.70-6.10) L 05/19/25 WBC 6.23 K/ul (4.8-10.8) 05/19/25 Hgb 6.8 g/dl (14.0-18.0) L* 05/19/25 Hct 20.2 % (42.0-52.0) L* 05/19/25 MCV 87.1 fL (80.0-100.0) 05/19/25 MCH 29.3 pg (25.0-34.0) 05/19/25 MCHC 33.7 g/dL (32.0-36.0) 05/19/25 RDW Standard Deviation 66.9 fL (36.4-46.3) H 05/19/25 RDW Coefficient of Variation 21.3 % (11.5-14.5) H 05/19/25 Plt Count 102 K/uL (130-400) L 05/19/25 MPV 10.0 fL (9.4-12.4) 05/19/25 Neutrophils (%) (Auto) 73.1 % 05/19/25 Lymphocytes (%) (Auto) 6.6 % 05/19/25 Monocytes # (Auto) 0.50 K/uL (0.11-0.59) 05/19/25 Eosinophils # (Auto) 0.67 K/uL (0.00-0.50) H 05/19/25 Immature Granulocyte % (Auto) 0.5 % 05/19/25 Neutrophils # (Auto) 4.56 K/uL (1.40-6.50) 05/19/25 Lymphocytes # (Auto) 0.41 K/uL (1.20-3.40) L 05/19/25 Monocytes # (Auto) 0.50 K/uL (0.11-0.59) 05/19/25 Eosinophils # (Auto) 0.67 K/uL (0.00-0.50) H 05/19/25 Basophils # (Auto) 0.06 K/uL (0.00-0.20) 05/19/25 Immature Granulocyte # (Auto) 0.03 K/uL (0.01-0.20) 5 Anisocytosis Present 05/19/25 Acanthocytes 1+ 05/19/25 Na 141 mmol/L (136-145) 05/19/25 K 2.9 mmol/L (3.5-5.1) L 05/19/25 Cl 103 mmol/L (98-107) 05/19/25 CO2 28 mmol/L (21-32) 05/19/25 Anion Gap 10 (3-11) 05/19/25 BUN 54 mg/dl (6-23) H 05/19/25 Creatinine 1.83 mg/dl (0.6-1.4) H 05/19/25 BUN/Creatinine Ratio 29.5 (10-20) H 05/19/25 Glu 160 mg/dl (70-99(Fasting)) H 05/19/25 Ca 8.2 mg/dl (8.6-10.3) L 05/19/25 Phosphorus Level 3.6 mg/dl (2.5-4.9) 05/19/25 Total Bilirubin 3.6 mg/dl (0.2-1.0) H 05/19/25 AST 105 U/L (13-39) H 05/19/25 ALT 33 U/L (7-52) 05/19/25 Alkaline Phosphatase 51 U/L (34-104) 05/19/25 TP 5.5 gm/dl (6.0-8.3) L 05/19/25 Albumin 2.4 gm/dl (3.4-5.0) L 05/19/25 Globulin 3.1 gm/dl (2.5-4.0) 05/19/25 Albumin/Globulin Ratio 0.8 (0.9-2) L 05/19/25 Mg 2.2 mg/dl (1.7-2.4) 05/19/25 06:00 Calcium Level 8.2 mg/dl (8.6-10.3) L 05/19/25 06:00 Prothromb Time International Ratio 1.6 (0.9-1.1) H 05/19/25 06 :00 Microbiology 05/18/25 Unknown Gram Stain - Final Abdomen, Right Lower Quadrant 05/18/25 12:30 Gram Stain - Final Pleural Fluid,Right Diagnostic Findings (Past 24 Hours) Chest X-Ray 05/18/25 11:46 SINGLE VIEW CHEST CLINICAL HISTORY: Central venous catheter placement. FINDINGS: An AP, portable, upright chest radiograph is compared to study dated 04/14/2025 and correlated with chest CT dated 05/18/2025. The examination is degraded by portable technique and apical lordotic positioning. A left internal jugular central venous catheter has been placed. The tip tip projects over the right atrium. The heart is enlarged noting atherosclerotic calcification of the thoracic aorta. There is mild pulmonary vascular congestion. Emphysema and chronic interstitial thickening similar to previous. There is a layering right pleural effusion with right basilar consolidation. Trace pleural fluid is seen on the left. No pneumothorax is seen. The skeletal structures are osteopenic. The bony thorax is grossly intact. Vascular coils are seen in the upper abdomen. IMPRESSION: 1. A left internal jugular central venous catheter has been placed as above. No pneumothorax is identified post procedure. 2. Cardiomegaly and emphysema noting pulmonary vascular congestion. 3. Right larger than left pleural effusions with right basilar consolidation. ACT 112: Negative or not required by law. Electronically signed by: Taran Tam M.D. 05/18/2025 12:53 PM Chest X-Ray 05/18/25 12:47 SINGLE VIEW CHEST CLINICAL HISTORY: Status post thoracentesis. FINDINGS: An AP, portable, upright chest radiograph is compared to chest x-ray and chest CT performed earlier the same day 05/18/2025. The examination is degraded by portable technique and apical lordotic positioning. A right internal jugular central venous infusion port is unchanged in position. The heart is enlarged noting atherosclerotic calcification of the thoracic aorta. There is mild pulmonary vascular congestion. Emphysema and chronic interstitial thickening similar to previous. There is a layering right pleural effusion with right basilar consolidation. Trace pleural fluid is seen on the left. No pneumo thorax is seen. The skeletal structures are osteopenic. The bony thorax is grossly intact. Vascular coils are seen in the upper abdomen. IMPRESSION: 1. No pneumothorax is identified post thoracentesis. 2. Cardiomegaly and emphysema noting pulmonary vascular congestion. 3. Right larger than left pleural effusions with right basilar consolidation. The right pleural effusion appears somewhat decreased in size from previous. ACT 112: Negative or not required by law. Electronically signed by: Taran Tam M.D. 05/18/2025 1:39 PM Chest X-Ray 05/19/25 07:00 EXAM: XR chest 1V portable CLINICAL HISTORY: f/u effusion TECHNIQUE: An X-ray image of the chest was obtained in AP projection. COMPARISON: Prior CT chest dated 05/18/2025. FINDINGS: Pulmonary Parenchyma: There is unchanged obliteration of the right costophrenic angle, denoting pleural effusion with associated large opacity and collapse in the right lower lung zone. There is unchanged obliteration of the left costophrenic angle, denoting mild pleural effusion. No definite pulmonary nodules are identified. A newly placed nasogastric tube is visualized, with its distal tip seen well positioned in the left hypochondrial region. A newly placed left central venous line is present, with its tip located at the cavoatrial junction. Heart and Mediastinum: The heart size is normal. There is no mediastinal widening or masses. No hilar or mediastinal lymphadenopathy is identified. Stable atheromatous calcifications are seen in the arch of the aorta. Bony Thorax: Degenerative changes are noted in the scanned spine. The previously noted left medial clavicular fracture and bilateral rib fractures are not clearly demonstrated on the radiograph. Soft Tissues: EKG leads are projected over the chest wall. Soft tissues overlying the chest wall are unremarkable. Stable upper abdominal metallic densities, likely from prior intervention, are present and require clinical correlation. IMPRESSION: 1. No acute cardiopulmonary abnormalities are identified. 2. Unchanged mild bilateral pleural effusion. 3. Newly placed nasogastric tube in adequate position. 4. Newly placed left central venous line with tip at the cavoatrial junction. Electronically signed by Timothy Coto 05-19-2025 08:14 AM I & O Totals 24 Hours 05/18/25 05/19/25 05/20/25 06:59 06:59 06:59 Intake Total 1100 / 1100 3023.916 / 3023.916 0 / 0 Output Total 1512 / 1512 Balance 1100 / 1100 1511.916 / 1511.916 0 / 0 Cumulative 05/18/25 02:26 thru 05/19/25 07:54 Intake Total 4123.916 Output Total 1512 Balance 2611.916 RT Ventilator Mngmt (Last Documented) Ventilator Ordered Settings Respiratory Rate 17 05/19/25 07:53 Ventilator - PT Measurements Respiratory Rate 17 Coding Level of Care Code 69221 CRITICAL CARE 1ST 30-74M Diagnoses Shock R57.9 Acute blood loss anemia D62 GRACIELA (acute kidney injury) N17.9 Hepatorenal syndrome K76.7 Ascites R18.8 Pleural effusion J90 Hypokalemia E87.6 Acute hepatic encephalopathy K76.82 Decompensated hepatic cirrhosis K72.90; K74.60 Rhabdomyolysis M62.82 Ribs, multiple fractures S22.49XA Multiple abrasions T07.XXXA
[2025-05-19] MEDS: ALBUMIN 25% 25 GM/100 ML VIAL IV SCH (10:41)
[2025-05-19] MEDS: NICOTINE 21 MG/24 HR TDSY TD SCH (11:10)
[2025-05-19] MEDS: OCTREOTIDE ACETATE 100 MCG/ML VIAL SQ SCH (13:04)
--- NOTE | 2025-05-19 13:53 | Hospitalist Progress Note ---
Date of Service May 19, 2025 Assessment & Plan (1) Acute hepatic encephalopathy: Plan: Acute hepatic encephalopathy Noncompliant Alcoholic Hepatic cirrhosis, GAVE with ascites S/P paracentesis--2 L of yellow cloudy fluid was removed --CT head:No acute intracranial hemorrhage at present. Soft tissue swelling involving bilateral frontozygomatic regions, with predominant soft tissue swelling in the right parietotemporal region and underlying loculated scalp fluid collection. -- Negative toxicology screen -- Ammonia level 121>>60 --Continue lactulose Mental status back to baseline Shock Likely hypovolemic, rule out septic Acute blood loss anemia S/P PRBCs Also received IV albumin --ECHO: Left ventricle systolic function is normal. EF 60 to 65%. Grade 1 diastolic dysfunction. Mild mitral, tricuspid regurgitation. Mild aortic root dilatation. --Blood cultures: Pending --Ascitic fluid cultures: Negative to date -- Pleural fluid cultures: Negative to date -- Peritoneal WBC 71 --Random cortisol 15 Wean off of pressors as able Monitor H&H and transfuse as needed Empirically on IV cefepime, Flagyl Appreciate critical care help Started on midodrine Hypokalemia Replete and monitor Acute rhabdomyolysis Secondary to fall CK 1904>760 Received IV fluids Monitor (2) Fall: Plan: Fall Right hemothorax S/P thoracentesis Multiple rib fractures (7, 8, 9) Right middle lobe lung collapse Left clavicle fracture--chronic Chronic nasal fractures Secondary to fall --CT Chest:New interval development of fractures of the right seventh to ninth ribs with overlying soft tissue swelling. New interval development of mild to moderate right-sided pleural effusion. New interval development of the collapse of the right middle lobe. Interval reduction in the volume of the left-sided pleural effusion with minimal effusion at present. Fracture of the medial end of the left clavicle is again noted, with interval progression of the surrounding periosteal reaction. --Facial CT:Soft tissue swelling involving the entire maxillofacial region with subcutaneous fat stranding and predominant soft tissue swelling in the right parietotemporal region and underlying loculated scalp fluid collection. Recommended clinical correlation. Old fractures or prominent nasal junctions of the nasal bone on both sides, also seen on the prior CT head study. -- Appreciate critical care help PT OT evaluate as able (3) Ribs, multiple fractures: Plan: Management as above (4) Anemia: Plan: Anemia of chronic disease Acute blood loss anemia Thrombocytopenia due to liver disease S/P PRBCs Monitor H&H and transfuse as needed (5) Hemothorax on right: Plan: Management as above (6) Abnormal CT scan: Plan: CT of the facesoft tissue swelling involving the entire maxillofacial region with subcutaneous fat stranding leading and predominant soft tissue swelling in the right Christophe temporal region and underlying loculated scalp fluid collection. Old fractures are prominent nasal junctions of the nasal bone on both sides --Observe CT of the chestright 7th-9th rib fractures with hemothorax. Collapse of the right middle lobe. Fracture of the medial end of the left clavicleold -- pulmonary evaluation --Observe CT of the cervical spineno evidence of fractures. Mild soft tissue swelling involving the neck, prominent on the right side CT of the abdomen and pelvisunchanged hepatic cirrhosis with marked abdominopelvic ascites. Unchanged uncomplicated cholelithiasis. Unchanged complex right renal lower pole cyst and redemonstration of generalized anasarca. Post intervention changes in the liver along the lower thoracic esophagus. --Observe CT of the thoracic spineno evidence of acute fracture in the thoracic spine. Superior endplate compression fracture in the T10 vertebral body and again noted with moderate thoracic despond by CT of the lumbar spineno evidence of fractures of the lumbar spine. Superior endplate compression fracture of the L2 vertebral body is again noted and minim al grade 1 anterolisthesis of L4 over L5 CT of the head- no intracranial hemorrhage. Soft tissue swelling involving bilateral frontal zygomatic regions with predominant soft tissue swelling in the right Christophe temporal region and underlying loculated scalp fluid collection. --PT OT as able She patient will need rehab placement (7) Generalized weakness: (8) CKD (chronic kidney disease) stage 4, GFR 15-29 ml/min: Plan: Acute kidney injury on CKD IV Possible hepatorenal syndrome Monitor renal function Avoid nephrotoxic agents as able Continue IV fluids (9) Alcoholic cirrhosis of liver with ascites: (10) Compression fx, thoracic spine: Plan DVT Px: SCDs for now--Re: Hemothorax, anemia CODE STATUS Full code Disposition PT OT prior to discharge Homeless Admission and Anticipated Discharge Date Admission Date: May 18, 2025 Subjective Patient is seen and examined at bedside Mental status seems to be back to baseline Still on pressors Admits to have rib pain Denies any dyspnea, nausea, vomiting, abdominal pain No other complaints today Review of Systems Review of Systems: All systems reviewed & are unremarkable except as noted in Subjective Physical Exam Physical Exam: Physical Exam: Vitals signs as noted above General Appearance:Moderately built and nourished, no apparent distress, +Chronic ill appearing Head: normocephalic, +traumatic , +R facial abrasion Eyes: normal inspection, EOMI Neck: supple, Trachea midline Respiratory/Chest: Decreased breath sounds, CTA, +chest tender No accessory muscle use Cardiovascular: S1, S2, No murmur Abdomen/GI:Soft, Non tender, Bowel sounds present Extremities/Musculoskeletal:normal inspection, 2-3+ B/L LE edema Neurologic/Psych:AAOX3, grossly no focal neurological deficits Skin: normal color, warm,+ ecchymosis, excoriations on extremities Results & Data Results & Data Vital Signs (Past 12 Hours) Vital Signs Temp Pulse Resp BP Pulse Ox O2 Del Method O2 Flow Rate 05/19/25 11:33 67 16 95 05/19/25 11:03 94/49 L 05/19/25 11:03 94/49 L 05/19/25 11:03 94/49 L 05/19/25 11:00 97/52 L 05/19/25 11:00 70 26 H 94 05/19/25 10:45 63 13 95 05/19/25 09:54 36.9 C 58 L 14 147/64 H 93 05/19/25 08:54 36.8 C 60 14 145/63 H 93 05/19/25 08:24 36.8 C 59 L 14 144/61 H 94 05/19/25 08:09 36.9 C 59 L 15 143/62 H 93 05/19/25 08:00 Room Air 05/19/25 08:00 70 05/19/25 07:53 36.7 C 63 17 127/59 L 92 2 05/19/25 07:51 36.7 C 66 16 129/57 L 92 2 05/19/25 07:30 Room Air 05/19/25 06:06 63 19 91 05/19/25 06:00 109/67 05/19/25 05:54 61 14 90 05/19/25 05:30 61 14 90 Room Air 05/19/25 05:06 62 14 90 Room Air 05/19/25 05:00 114/71 05/19/25 04:30 61 15 90 05/19/25 04:12 62 14 91 05/19/25 04:00 111/66 05/19/25 04:00 11105/19/25 03:51 63 18 92 Room Air 05/19/25 03:45 36.6 C 67 19 92 05/19/25 03:03 65 20 91 Room Air 05/19/25 03:00 110/70 05/19/25 03:00 110/70 05/19/25 03:00 110/70 05/19/25 02:00 125/69 05/19/25 02:00 125/69 05/19/25 02:00 62 15 92 Room Air Laboratory Results Short CBC 05/18/25 05/18/25 05/19/25 Range/Units 15:47 22:22 06:00 WBC 9.53 7.74 6.23 (4.8-10.8) K/ul Hgb 8.2 L 7.0 L 6.8 L* (14.0-18.0) g/dl Hct 24.3 L 22.3 L 20.2 L* (42.0-52.0) % Plt Count 138 126 L 102 L (130-400) K/uL BMP 05/18/25 05/19/25 23:37 06:00 Sodium 142 141 Potassium 2.5 L* 2.9 L Chloride 102 103 Carbon Dioxide 28 28 BUN 58 H 54 H Creatinine 1.97 H 1.83 H Glucose 156 H 160 H Calcium 8.3 L 8.2 L Cardiac Enzymes 05/19/25 Range/Units 06:00 Total Creatine Kinase 760 H (30-223) U/L Liver Function 05/18/25 05/19/25 Range/Units 12:03 06:00 Total Bilirubin 3.9 H D 3.6 H (0.2-1.0) mg/dl AST 105 H (13-39) U/L ALT 33 (7-52) U/L Alkaline Phosphatase 51 (34-104) U/L Albumin 1.9 L 2.4 L (3.4-5.0) gm/dl (10) Compression fx, thoracic spine Encounter type: initial encounter Thoracic vertebra fracture level: T10 Qualified Code(s): S22.070A - Wedge compression fracture of T9-T10 vertebra, in itial encounter for closed fracture
[2025-05-19] MEDS: ACETAMINOPHEN 500 MG TAB PO STA (16:30)
[2025-05-19 17:19] LABS: Hematocrit (blood only) 22.0 % (42.0-52.0); Hemoglobin 7.2 g/dl (14.0-18.0)
[2025-05-19] MEDS: MIDODRINE HCL 10 MG TAB PO SCH (17:29)
[2025-05-20 05:20] LABS: Hematocrit (blood only) 22.7 % (42.0-52.0); Hemoglobin 7.7 g/dl (14.0-18.0); Mean Corpuscular Hemoglobin 29.2 pg (25.0-34.0); Mean Corpuscular Volume 86.0 fL (80.0-100.0); Platelet Count 89 K/uL (130-400); RDW Standard Deviation 66.1 fL (36.4-46.3); Red Blood Count 2.64 M/uL (4.70-6.10); White Blood Count 6.15 K/ul (4.8-10.8)
[2025-05-20 05:39] LABS: Alanine Aminotransferase 30.0 U/L (7-52); Albumin Globulin Ratio 0.8 (0.9-2); Albumin Level 2.4 gm/dl (3.4-5.0); Alkaline Phosphatase 49.0 U/L (34-104); Anion Gap 7.0 (3-11); Bilirubin,Total 2.4 mg/dl (0.2-1.0); Blood Urea Nitrogen 48.0 mg/dl (6-23); Calcium 7.8 mg/dl (8.6-10.3); Carbon Dioxide 27.0 mmol/L (21-32); Chloride 101.0 mmol/L (98-107); Creatinine Clr Calc Pharmacy 45.4 ml/min; Globulin 3.1 gm/dl (2.5-4.0); Glucose 107.0 mg/dl (70-99(Fasting)); Potassium 3.1 mmol/L (3.5-5.1); Sodium 135.0 mmol/L (136-145); Total Protein 5.5 gm/dl (6.0-8.3)
[2025-05-20] MEDS: POTASSIUM CHLORIDE / WTR 20 MEQ/100 ML PLCT IV SCH (06:08)
--- NOTE | 2025-05-20 08:12 | Critical Care Progress Note ---
Date of Service May 20, 2025 Assessment & Plan (1) Shock: (2) Acute blood loss anemia: (3) GRACIELA (acute kidney injury): (4) Hepatorenal syndrome: (5) Ascites: (6) Pleural effusion: (7) Hypokalemia: (8) Acute hepatic encephalopathy: (9) Decompensated hepatic cirrhosis: (10) Rhabdomyolysis: (11) Ribs, multiple fractures: (12) Multiple abrasions: Plan Patient is a 54-year-old male with a history of decompensated cirrhosis with ascites, he follows with hepatology and receives weekly paracentesis. 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 Reason Critically Ill: Shock state, likely septic Acute kidney injury on top of CKD Rhabdomyolysis Decompensated cirrhosis Likely hepatorenal syndrome Ascites Pleural effusion (hemothorax ruled out) Hepatic encephalopathy History of alcohol abuse Rib fractures Multiple abrasions Homeless Neuro: Altered mentation. resolved - Soft tissue swellings appreciated, loculated scalp fluid collection also appreciated. Chronic lactulose therapy Hyperammonemia significantly improved Cardiac: Most recent echo was January 2024: EF was 60 to 65%, mild concentric LVH. Normal RV size and function. - Reviewed 05/19 echo Attempts to discontinue vasoactive's - Probable hepatorenal syndrome - Day 3 vasoconstrictor therapy: Increase midodrine to 15 mg every 8 hours Central venous catheter and arterial line are in place. Respiratory: Maintaining saturation with nasal cannula. ABG without evidence of hypercapnia. Multiple closed rib fractures right side 789 - CT of the chest showed mild to moderate right sided pleural effusion which is a new finding for him. Right middle lobe atelectasis. Small pulmonary nodules. Emphysema appreciated. Nonspecific mediastinal adenopathy. Soft tissue swelling appreciated of the right chest wall with fractures of the right 7th-9th ribs. -Thoracentesis was performed at bedside 05/18 Suspect right-sided pleural effusion related to recent trauma - Doubtful to represent empyema bronchodilators given history of COPD and emphysema on CT imaging. GI: Patient has a history of GI bleeding multiple varices and has had multiple coiling's performed in the past. Has acute blood loss anemia at this time. Status post paracentesis with 2 L of fluid removed. Cloudy yellow fluid re moved, 65% lymphocytes, no evidence of SBP, low protein. Lavage negative Decrease Protonix to once daily Lactulose daily - MELD 22 (05/19) - Reviewed GI consultation notes from 02/26/25 and 03/10/25, it appears patient would be unlikely candidate for liver transplant RENAL/LYTES: Hepatorenal syndrome is possible given decompensated cirrhosis and new GRACIELA.: Improving Zapata catheter is in place, monitoring strict I's and O's. Avoiding nephrotoxins. - Replating electrolytes - Unclear baseline patient had creatinine 1.24-1.33 during February and March of this year; however, he is routinely around 1.6 or greater on prior admissions : Zapata catheter. ENDO: Will monitor blood glucose every 6 hours. HEME: Multifactorial anemia. No ongoing obvious blood losses has received 3 units packed red blood cells in total Lavage reported negative - Anemia of chronic disease ID: Negative white count, afebrile, cultures no growth to date - Underlying hypotension likely secondary to hepatorenal syndrome, no evidence to suggest underlying sepsis - No strong evidence to indicate upper GI bleeding, certainly at risk with poor social support, known anemia - Will de-escalate to oral Augmentin therapy for additional 5 days on the basis of worsening anemia and cirrhosis MRSA nares is negative. Possible fluid collection on scalp, could just be secondary to a fall which he endorses. Urine is negative for nitrates and leukocyte esterase. Blood cultures have no growth to date. Plan: Obtain speech evaluation today Admission and Anticipated Discharge Date Admission Date: May 18, 2025 Subjective No overnight events, still on low-dose vasoactive's Physical Exam Physical Exam: General: Alert. nontoxic. Skin: Warm, dry, Head: Atraumatic Ears, nose, mouth and throat: airway patent Cardiovascular: Normal peripheral perfusion Respiratory: no respiratory distress Gastrointestinal: Non distended Musculoskeletal: No deformity Results & Data Results & Data Vital Signs (Past 12 Hours) Vital Signs Temp Pulse Resp BP Pulse Ox O2 Del Method 05/20/25 05:30 56 L 14 97 05/20/25 05:09 62 18 91 05/20/25 04:30 66 05/20/25 04:18 58 L 05/20/25 04:00 113/74 05/20/25 04:00 113/74 05/20/25 04:00 113/74 05/20/25 04:00 36.8 C 05/20/25 04:00 62 05/20/25 03:27 66 21 94 05/20/25 03:03 63 16 93 05/20/25 03:00 110/72 05/20/25 02:54 67 18 90 05/20/25 02:33 62 15 94 05/20/25 02:09 61 17 94 05/20/25 01:36 63 17 95 05/20/25 01:09 65 18 95 05/20/25 01:00 110/65 05/20/25 01:00 110/65 05/20/25 00:57 63 18 95 05/20/25 00:33 63 18 95 05/20/25 00:05 36.8 C 05/20/25 00:00 62 14 05/20/25 00:00 103/64 05/20/25 00:00 62 05/19/25 23:36 65 17 95 05/19/25 23:00 108/64 05/19/25 23:00 108/64 05/19/25 23:00 61 15 05/19/25 22:30 59 L 15 93 05/19/25 22:03 58 L 15 93 05/19/25 22:00 109/69 05/19/25 21:51 60 15 93 05/19/25 21:43 36.8 C 05/19/25 21:33 62 16 91 05/19/25 21:10 Room Air 05/19/25 21:00 83/60 L 05/19/25 21:00 83/60 L 05/19/25 21:00 65 18 96 05/19/25 20:36 60 17 96 05/19/25 20:15 62 17 95 Critical Care Results & Data Vital Signs (Past 12 Hours) Vital Signs Temp Pulse Resp BP Pulse Ox O2 Del Method 05/20/25 05:30 56 L 14 97 05/20/25 05:09 62 18 91 05/20/25 04:30 66 05/20/25 04:18 58 L 05/20/25 04:00 113/74 05/20/25 04:00 113/74 05/20/25 04:00 113/74 05/20/25 04:00 36.8 C 05/20/25 04:00 62 05/20/25 03:27 66 21 94 05/20/25 03:03 63 16 93 10/21/25 03:00 110/72 05/20/25 02:54 67 18 90 05/20/25 02:33 62 15 94 05/20/25 02:09 61 17 94 05/20/25 01:36 63 17 95 05/20/25 01:09 65 18 95 05/20/25 01:00 110/65 05/20/25 01:00 110/65 05/20/25 00:57 63 18 95 05/20/25 00:33 63 18 95 05/20/25 00:05 36.8 C 05/20/25 00:00 62 14 05/20/25 00:00 103/64 05/20/25 00:00 62 05/19/25 23:36 65 17 95 05/19/25 23:00 108/64 05/19/25 23:00 108/64 05/19/25 23:00 61 15 05/19/25 22:30 59 L 15 93 05/19/25 22:03 58 L 15 93 05/19/25 22:00 109/69 05/19/25 21:51 60 15 93 05/19/25 21:43 36.8 C 05/19/25 21:33 62 16 91 05/19/25 21:10 Room Air 05/19/25 21:00 83/60 L 05/19/25 21:00 83/60 L 05/19/25 21:00 65 18 96 05/19/25 20:36 60 17 96 Lab & Micro Results (Past 24 Hours) RBC 2.64 M/uL (4.70-6.10) L 05/20/25 WBC 6.15 K/ul (4.8-10.8) 05/20/25 Hgb 7.7 g/dl (14.0-18.0) L 05/20/25 Hct 22.7 % (42.0-52.0) L 05/20/25 MCV 86.0 fL (80.0-100.0) 05/20/25 MCH 29.2 pg (25.0-34.0) 05/20/25 MCHC 33.9 g/dL (32.0-36.0) 05/20/25 RDW Standard Deviation 66.1 fL (36.4-46.3) H 05/20/25 RDW Coefficient of Variation 21.4 % (11.5-14.5) H 05/20/25 Plt Count 89 K/uL (130-400) L 05/20/25 MPV 10.1 fL (9.4-12.4) 05/20/25 Na 135 mmol/L (136-145) L 05/20/25 K 3.1 mmol/L (3.5-5.1) L 05/20/25 Cl 101 mmol/L (98-107) 05/20/25 CO2 27 mmol/L (21-32) 05/20/25 Anion Gap 7 (3-11) 05/20/25 BUN 48 mg/dl (6-23) H 05/20/25 Creatinine 1.84 mg/dl (0.6-1.4) H 05/20/25 BUN/Creatinine Ratio 26.1 (10-20) H 05/20/25 Glu 107 mg/dl (70-99(Fasting)) H 05/20/25 Ca 7.8 mg/dl (8.6-10.3) L 05/20/25 Phosphorus Level 2.8 mg/dl (2.5-4.9) 05/20/25 Total Bilirubin 2.4 mg/dl (0.2-1.0) H 05/20/25 AST 74 U/L (13-39) H 05/20/25 ALT 30 U/L (7-52) 05/20/25 Alkaline Phosphatase 49 U/L (34-104) 05/20/25 TP 5.5 gm/dl (6.0-8.3) L 05/20/25 Albumin 2.4 gm/dl (3.4-5.0) L 05/20/25 Globulin 3.1 gm/dl (2.5-4.0) 05/20/25 Albumin/Globulin Ratio 0.8 (0.9-2) L 05/20/25 Calcium Level 7.8 mg/dl (8.6-10.3) L 05/20/25 04:43 Microbiology 05/18/25 12:30 Gram Stain - Final Pleural Fluid,Right Aerobic and Anaerobic Culture - Preliminary No growth to date. 05/18/25 Unknown Gram Stain - Final Abdomen, Right Lower Quadrant Aerobic and Anaerobic Culture - Preliminary No growth to date. I & O Totals 24 Hours 05/19/25 05/20/25 05/21/25 06:59 06:59 06:59 Intake Total 3023.916 / 3023.916 4804.846 / 4804.846 114.2 / 114.2 Output Total 1512 / 1512 1378 / 1378 Balance 1511.916 / 4244.586 4494.846 / 3426.846 114.2 / 114.2 Cumulative 05/18/25 02:26 thru 05/20/25 08:15 Intake Total 9042.962 Output Total 2890 Balance 6152.962 RT Ventilator Mngmt (Last Documented) Ventilator Ordered Settings Respiratory Rate 14 05/20/25 05:30 Ventilator - PT Measurements Respiratory Rate 14 Coding Level of Care Code 39879 SUB INP/OBS CARE 3/50MIN Diagnoses Shock R57.9 Acute blood loss anemia D62 GRACIELA (acute kidney injury) N17.9 Hepatorenal syndrome K76.7 Ascites R18.8 Pleural effusion J90 Hypokalemia E87.6 Acute hepatic encephalopathy K76.82 Decompensated hepatic cirrhosis K72.90; K74.60 Rhabdomyolysis M62.82 Ribs, multiple fractures S22.49XA Multiple abrasions T07.XXXA
[2025-05-20] MEDS: MIDODRINE HCL 10 MG TAB PO SCH (09:03)
[2025-05-20] MEDS: LACTULOSE SYRUP 20 GM/30 ML UDC PO SCH (09:04)
[2025-05-20] MEDS: REMOVE NICODERM PATCH SCH (09:05)
--- NOTE | 2025-05-20 14:19 | Hospitalist Progress Note ---
Date of Service May 20, 2025 Assessment & Plan (1) Acute hepatic encephalopathy: Plan: Acute hepatic encephalopathy Noncompliant Alcoholic Hepatic cirrhosis, GAVE with ascites S/P paracentesis--2 L of yellow cloudy fluid was removed --CT head:No acute intracranial hemorrhage at present. Soft tissue swelling involving bilateral frontozygomatic regions, with predominant soft tissue swelling in the right parietotemporal region and underlying loculated scalp fluid collection. -- Negative toxicology screen -- Ammonia level 121>>60 --Continue lactulose, added rifaximin Mental status back to baseline Will need rehab placement Shock Likely hypovolemic, rule out septic Acute blood loss anemia S/P PRBCs Also received IV albumin --ECHO: Left ventricle systolic function is normal. EF 60 to 65%. Grade 1 diastolic dysfunction. Mild mitral, tricuspid regurgitation. Mild aortic root dilatation. --Blood cultures: Negative to date --Ascitic fluid cultures: Negative to date -- Pleural fluid cultures: Negative to date -- Peritoneal WBC 71 --Random cortisol 15 Weaned off of pressors e Monitor H&H and transfuse as needed Empirically on IV cefepime, Flagyl>> transition to Augmentin Appreciate critical care help Continue midodrine Hypokalemia Replete and monitor Acute rhabdomyolysis Secondary to fall CK 1904>760 Received IV fluids Monitor (2) Fall: Plan: Fall Right hemothorax S/P thoracentesis Multiple rib fractures (7, 8, 9) Right middle lobe lung collapse Left clavicle fracture--chronic Chronic nasal fractures Secondary to fall --CT Chest:New interval development of fractures of the right seventh to ninth ribs with overlying soft tissue swelling. New interval development of mild to mo derate right-sided pleural effusion. New interval development of the collapse of the right middle lobe. Interval reduction in the volume of the left-sided pleural effusion with minimal effusion at present. Fracture of the medial end of the left clavicle is again noted, with interval progression of the surrounding periosteal reaction. --Facial CT:Soft tissue swelling involving the entire maxillofacial region with subcutaneous fat stranding and predominant soft tissue swelling in the right parietotemporal region and underlying loculated scalp fluid collection. Recommended clinical correlation. Old fractures or prominent nasal junctions of the nasal bone on both sides, also seen on the prior CT head study. -- Appreciate critical care help PT OT evaluate as able Will need rehab placement (3) Ribs, multiple fractures: Plan: Management as above (4) Anemia: Plan: Anemia of chronic disease Acute blood loss anemia Thrombocytopenia due to liver disease S/P PRBCs Monitor H&H and transfuse as needed Hemoglobin 7.7 today (5) Hemothorax on right: Plan: Management as above (6) Abnormal CT scan: Plan: CT of the facesoft tissue swelling involving the entire maxillofacial region with subcutaneous fat stranding leading and predominant soft tissue swelling in the right Christophe temporal region and underlying loculated scalp fluid collection. Old fractures are prominent nasal junctions of the nasal bone on both sides --Observe CT of the chestright 7th-9th rib fractures with hemothorax. Collapse of the right middle lobe. Fracture of the medial end of the left clavicleold -- pulmonary evaluation --Observe CT of the cervical spineno evidence of fractures. Mild soft tissue swelling involving the neck, prominent on the right side CT of the abdomen and pelvisunchanged hepatic cirrhosis with marked abdominopelvic ascites. Unchanged uncomplicated cholelithiasis. Unchanged c omplex right renal lower pole cyst and redemonstration of generalized anasarca. Post intervention changes in the liver along the lower thoracic esophagus. --Observe CT of the thoracic spineno evidence of acute fracture in the thoracic spine. Superior endplate compression fracture in the T10 vertebral body and again noted with moderate thoracic despond by CT of the lumbar spineno evidence of fractures of the lumbar spine. Superior endplate compression fracture of the L2 vertebral body is again noted and minimal grade 1 anterolisthesis of L4 over L5 CT of the head- no intracranial hemorrhage. Soft tissue swelling involving bilateral frontal zygomatic regions with predominant soft tissue swelling in the right Christophe temporal region and underlying loculated scalp fluid collection. --PT OT as able She patient will need rehab placement (7) Generalized weakness: (8) CKD (chronic kidney disease) stage 4, GFR 15-29 ml/min: Plan: Acute kidney injury on CKD IV Possible hepatorenal syndrome Monitor renal function Creatinine 1.8 today Avoid nephrotoxic agents as able Received IV fluids (9) Alcoholic cirrhosis of liver with ascites: (10) Compression fx, thoracic spine: Plan DVT Px: SCDs for now--Re: Hemothorax, anemia CODE STATUS Full code Disposition PT OT prior to discharge Homeless Admission and Anticipated Discharge Date Admission Date: May 18, 2025 Subjective Patient is seen and examined at bedside Offers no complaints today Off pressors Discussed with ICU team Denies any chest pain, dyspnea, nausea, vomiting, abdominal pain Plan to transfer out of ICU today Review of Systems Review of Systems: All systems reviewed & are unremarkable except as noted in Subjective Physical Exam Physical Exam: Physical Exam: Vitals signs as noted above General Appearance:Moderately built and nourished, no apparent distress, +Chronic ill appearing Head: normocephalic, +traumatic , +R facial abrasion Eyes: normal inspection, EOMI Neck: supple, Trachea midline Respiratory/Chest: Decreased breath sounds, CTA, +mild tender No accessory muscle use Cardiovascular: S1, S2, No murmur Abdomen/GI:Soft, Non tender, Bowel sounds present Extremities/Musculoskeletal:normal inspection, 2-3+ B/L LE edema Neurologic/Psych:AAOX3, grossly no focal neurological deficits Skin: normal color, warm,+ ecchymosis, excoriations on extremities Results & Data Results & Data Vital Signs (Past 12 Hours) Vital Signs Temp Pulse Resp BP Pulse Ox O2 Del Method 05/20/25 14:03 72 18 98 05/20/25 14:00 95/59 L 05/20/25 13:57 66 16 97 05/20/25 13:36 64 12 96 05/20/25 13:06 69 15 97 05/20/25 13:00 117/74 05/20/25 12:45 67 15 97 05/20/25 12:39 64 15 98 05/20/25 12:06 67 16 97 05/20/25 11:30 67 17 95 05/20/25 11:00 72 19 97 05/20/25 11:00 98/65 L 05/20/25 10:33 93/66 L 05/20/25 10:33 67 17 95 05/20/25 10:15 69 19 94 05/20/25 09:01 102/56 L 05/20/25 09:00 69 18 90 05/20/25 08:36 66 14 93 05/20/25 08:03 65 20 95 05/20/25 08:00 36.6 C 87/52 L 05/20/25 08:00 Room Air 05/20/25 07:39 58 L 13 96 05/20/25 07:30 61 13 97 05/20/25 07:00 95/61 L 05/20/25 07:00 54 L 12 05/20/25 05:30 56 L 14 97 05/20/25 05:09 62 18 91 05/20/25 04:30 66 05/20/25 04:18 58 L 05/20/25 04:00 113/74 05/20/25 04:00 113/74 05/20/25 04:00 113/74 05/20/25 04:00 36.8 C 05/20/25 04:00 62 05/20/25 03:27 66 21 94 05/20/25 03:03 63 16 93 05/20/25 03:00 110/72 05/20/25 02:54 67 18 90 05/20/25 02:33 62 15 94 Laboratory Results Short CBC 05/19/25 05/20/25 Range/Units 17:05 04:43 WBC 6.15 (4.8-10.8) K/ul Hgb 7.2 L 7.7 L (14.0-18.0) g/dl Hct 22.0 L 22.7 L (42.0-52.0) % Plt Count 89 L (130-400) K/uL BMP 05/20/25 04:43 Sodium 135 L Potassium 3.1 L Chloride 101 Carbon Dioxide 27 BUN 48 H Creatinine 1.84 H Glucose 107 H Calcium 7.8 L Liver Function 05/20/25 Range/Units 04:43 Total Bilirubin 2.4 H (0.2-1.0) mg/dl AST 74 H (13-39) U/L ALT 30 (7-52) U/L Alkaline Phosphatase 49 (34-104) U/L Albumin 2.4 L (3.4-5.0) gm/dl (10) Compression fx, thoracic spine Encounter type: initial encounter Thoracic vertebra fracture level: T10 Qualified Code(s): S22.070A - Wedge compression fracture of T9-T10 vertebra, initial encounter for closed fracture
[2025-05-20] MEDS: AMOXICILLIN/CLAVULANATE 875 MG TAB PO SCH (16:17)
[2025-05-21 04:58] LABS: Hematocrit (blood only) 24.6 % (42.0-52.0); Hemoglobin 8.1 g/dl (14.0-18.0); Mean Corpuscular Hemoglobin 29.2 pg (25.0-34.0); Mean Corpuscular Volume 88.8 fL (80.0-100.0); Platelet Count 90 K/uL (130-400); RDW Standard Deviation 65.7 fL (36.4-46.3); Red Blood Count 2.77 M/uL (4.70-6.10); White Blood Count 5.31 K/ul (4.8-10.8)
[2025-05-21 05:18] LABS: Alanine Aminotransferase 27.0 U/L (7-52); Albumin Globulin Ratio 0.7 (0.9-2); Albumin Level 2.2 gm/dl (3.4-5.0); Alkaline Phosphatase 48.0 U/L (34-104); Anion Gap 4.0 (3-11); Bilirubin,Total 1.4 mg/dl (0.2-1.0); Blood Urea Nitrogen 51.0 mg/dl (6-23); Calcium 7.7 mg/dl (8.6-10.3); Carbon Dioxide 27.0 mmol/L (21-32); Chloride 102.0 mmol/L (98-107); Creatinine Clr Calc Pharmacy 46.2 ml/min; Globulin 3.2 gm/dl (2.5-4.0); Glucose 123.0 mg/dl (70-99(Fasting)); Magnesium 2.1 mg/dl (1.7-2.4); Potassium 4.0 mmol/L (3.5-5.1); Sodium 133.0 mmol/L (136-145); Total Protein 5.4 gm/dl (6.0-8.3)
[2025-05-21] MEDS: OCTREOTIDE ACETATE 100 MCG/ML VIAL SQ SCH (10:58)
--- NOTE | 2025-05-21 12:40 | Hospitalist Progress Note ---
Date of Service May 21, 2025 Assessment & Plan (1) Acute hepatic encephalopathy: Plan: Acute hepatic encephalopathy Noncompliant Alcoholic Hepatic cirrhosis, GAVE with ascites S/P paracentesis--2 L of yellow cloudy fluid was removed --CT head:No acute intracranial hemorrhage at present. Soft tissue swelling involving bilateral frontozygomatic regions, with predominant soft tissue swelling in the right parietotemporal region and underlying loculated scalp fluid collection. -- Negative toxicology screen -- Ammonia level 121>>60 --Continue lactulose, added rifaximin Mental status back to baseline Will need rehab placement PT OT eval pending Case management to help with discharge planning Shock Likely hypovolemic, rule out septic Acute blood loss anemia S/P PRBCs Also received IV albumin --ECHO: Left ventricle systolic function is normal. EF 60 to 65%. Grade 1 diastolic dysfunction. Mild mitral, tricuspid regurgitation. Mild aortic root dilatation. --Blood cultures: Negative to date --Ascitic fluid cultures: Negative to date -- Pleural fluid cultures: Negative to date -- Peritoneal WBC 71 --Random cortisol 15 Weaned off of pressors Monitor H&H and transfuse as needed Empirically on IV cefepime, Flagyl>> transition to Augmentin Appreciate critical care help Continue midodrine--titrate down as able Blood pressure better today Hypokalemia Replete and monitor Acute rhabdomyolysis Secondary to fall CK 1904>760 Received IV fluids Monitor (2) Fall: Plan: Fall Right hemothorax S/P thoracentesis Multiple rib fractures (7, 8, 9) Right middle lobe lung collapse Left clavicle fracture--chronic Chronic nasal fractures Secondary to fall --CT Chest:New interval development of fractures of the right seventh to ninth ribs with overlying soft tissue swelling. New interval development of mild to moderate right-sided pleural effusion. New interval development of the collapse of the right middle lobe. Interval reduction in the volume of the left-sided pleural effusion with minimal effusion at present. Fracture of the medial end of the left clavicle is again noted, with interval progression of the surrounding periosteal reaction. --Facial CT:Soft tissue swelling involving the entire maxillofacial region with subcutaneous fat stranding and predominant soft tissue swelling in the right parietotemporal region and underlying loculated scalp fluid collection. Recommended clinical correlation. Old fractures or prominent nasal junctions of the nasal bone on both sides, also seen on the prior CT head study. -- Appreciate critical care help PT OT evaluate as able Will need rehab placement Incentive spirometry (3) Ribs, multiple fractures: Plan: Management as above (4) Anemia: Plan: Anemia of chronic disease Acute blood loss anemia Thrombocytopenia due to liver disease S/P PRBCs Monitor H&H and transfuse as needed Hemoglobin 8.1 today (5) Hemothorax on right: Plan: Management as above (6) Abnormal CT scan: Plan: CT of the facesoft tissue swelling involving the entire maxillofacial region with subcutaneous fat stranding leading and predominant soft tissue swelling in the right Christophe temporal region and underlying loculated scalp fluid collection. Old fractures are prominent nasal junctions of the nasal bone on both sides --Observe CT of the chestright 7th-9th rib fractures with hemothorax. Collapse of the right middle lobe. Fracture of the medial end of the left clavicleold -- pulmonary evaluation --Observe CT of the cervical spineno evidence of fractures. Mild soft tissue swelling involving the neck, prominent on the right side CT of the abdomen and pelvisunchanged hepatic cirrhosis with marked abdominopelvic ascites. Unchanged uncomplicated cholelithiasis. Unchanged complex right renal lower pole cyst and redemonstration of generalized anasarca. Post intervention changes in the liver along the lower thoracic esophagus. --Observe CT of the thoracic spineno evidence of acute fracture in the thoracic spine. Superior endplate compression fracture in the T10 vertebral body and again noted with moderate thoracic despond by CT of the lumbar spineno evidence of fractures of the lumbar spine. Superior endplate compression fracture of the L2 vertebral body is again noted and minimal grade 1 anterolisthesis of L4 over L5 CT of the head- no intracranial hemorrhage. Soft tissue swelling involving bilateral frontal zygomatic regions with predominant soft tissue swelling in the right Christophe temporal region and underlying loculated scalp fluid collection. --PT OT as able She patient will need rehab placement (7) Generalized weakness: (8) CKD (chronic kidney disease) stage 4, GFR 15-29 ml/min: Plan: Acute kidney injury on CKD IV Possible hepatorenal syndrome Monitor renal function Creatinine 1.8 today Avoid nephrotoxic agents as able Received IV fluids Titrated down IV octreotide (9) Alcoholic cirrhosis of liver with ascites: (10) Compression fx, thoracic spine: Plan DVT Px: SCDs for now--Re: Hemothorax, anemia CODE STATUS Full code Disposition PT OT prior to discharge Homeless Admission and Anticipated Discharge Date Admission Date: May 18, 2025 Subjective Patient is seen and examined at bedside States having rib pain Sitting in chair during my encounter Also reports having some generalized itching No other complaints today Blood pressure better today Denies any chest pain, dyspnea, nausea, vomiting, abdominal pain Review of Systems Review of Systems: All systems reviewed & are unremarkable except as noted in Subjective Physical Exam Physical Exam: Physical Exam: Vitals signs as noted above General Appearance:Moderately built and nourished, no apparent distress, +Chronic ill appearing Head: normocephalic, +traumatic , +R facial abrasion Eyes: normal inspection, EOMI Neck: supple, Trachea midline Respiratory/Chest: Decreased breath sounds, CTA, +mild tender No accessory muscle use Cardiovascular: S1, S2, No murmur Abdomen/GI:Soft, Non tender, Bowel sounds present Extremities/Musculoskeletal:normal inspection, 2-3+ B/L LE edema Neurologic/Psych:AAOX3, grossly no focal neurological deficits Skin: normal color, warm,+ ecchymosis, excoriations on extremities Results & Data Results & Data Vital Signs (Past 12 Hours) Vital Signs Temp Pulse Pulse Resp BP BP BP 05/21/25 10:52 36.5 C 116/75 05/21/25 10:47 72 16 05/21/25 07:09 64 05/21/25 07:07 36.9 C 63 20 106/71 05/21/25 03:12 36.8 C 53 L 18 110/62 Pulse Ox O2 Del Method 05/21/25 10:52 94 Room Air 05/21/25 10:47 05/21/25 07:09 05/21/25 07:07 94 Room Air 05/21/25 03:12 94 Room Air Laboratory Results Short CBC 05/21/25 Range/Units 04:24 WBC 5.31 (4.8-10.8) K/ul Hgb 8.1 L (14.0-18.0) g/dl Hct 24.6 L (42.0-52.0) % Plt Count 90 L (130-400) K/uL BMP 05/21/25 04:24 Sodium 133 L Potassium 4.0 D Chloride 102 Carbon Dioxide 27 BUN 51 H Creatinine 1.81 H Glucose 123 H Calcium 7.7 L Liver Function 05/21/25 Range/Units 04:24 Total Bilirubin 1.4 H (0.2-1.0) mg/dl AST 54 H (13-39) U/L ALT 27 (7-52) U/L Alkaline Phosphatase 48 (34-104) U/L Albumin 2.2 L (3.4-5.0) gm/dl (10) Compression fx, thoracic spine Encounter type: initial encounter Thoracic vertebra fracture level: T10 Qualified Code(s): S22.070A - Wedge compression fracture of T9-T10 vertebra, initial encounter for closed fracture
--- NOTE | 2025-05-21 21:23 | Electrocardiogram Report ---
Test Reason : Blood Pressure : */* mmHG Vent. Rate : 59 BPM Atrial Rate : 59 BPM P-R Int : 188 ms QRS Dur : 98 ms QT Int : 462 ms P-R-T Axes : 47 73 35 degrees QTcB Int : 457 ms Sinus bradycardia Low voltage QRS Borderline ECG When compared with ECG of 18-May-2025 02:46, Nonspecific T wave abnormality no longer evident in Anterior leads QT has shortened Confirmed by Gen Mazariegos ([id number]) on 05/21/2025 9:22:44 PM Referred By: REFERRED SELF Confirmed By: Gen Mazariegos
[2025-05-22 06:32] LABS: Hematocrit (blood only) 26.2 % (42.0-52.0); Hemoglobin 8.3 g/dl (14.0-18.0)
[2025-05-22 06:48] LABS: Anion Gap 6.0 (3-11); Blood Urea Nitrogen 50.0 mg/dl (6-23); Calcium 7.6 mg/dl (8.6-10.3); Carbon Dioxide 25.0 mmol/L (21-32); Chloride 103.0 mmol/L (98-107); Creatinine Clr Calc Pharmacy 53.0 ml/min; Glucose 105.0 mg/dl (70-99(Fasting)); Potassium 4.4 mmol/L (3.5-5.1); Sodium 134.0 mmol/L (136-145)
[2025-05-22] MEDS: SPIRONOLACTONE 25 MG TAB PO SCH (11:44)
[2025-05-22] MEDS: TORSEMIDE 10 MG TAB PO SCH (11:44)
--- NOTE | 2025-05-22 14:06 | Hospitalist Progress Note ---
Date of Service May 22, 2025 Assessment & Plan (1) Acute hepatic encephalopathy: Plan: Acute hepatic encephalopathy Noncompliant Alcoholic Hepatic cirrhosis, GAVE with ascites S/P paracentesis--2 L of yellow cloudy fluid was removed --CT head:No acute intracranial hemorrhage at present. Soft tissue swelling involving bilateral frontozygomatic regions, with predominant soft tissue swelling in the right parietotemporal region and underlying loculated scalp fluid collection. -- Negative toxicology screen -- Ammonia level 121>>60 --Has been getting paracentesis almost weekly per patient --Continue lactulose, added rifaximin Mental status back to baseline Continue PT OT Case management to help with discharge planning Restarted torsemide, Aldactone at lower dose Adjust diuretic doses as able May need repeat paracentesis next week Shock Likely hypovolemic, rule out septic Acute blood loss anemia S/P PRBCs Also received IV albumin --ECHO: Left ventricle systolic function is normal. EF 60 to 65%. Grade 1 diastolic dysfunction. Mild mitral, tricuspid regurgitation. Mild aortic root dilatation. --Blood cultures: Negative to date --Ascitic fluid cultures: Negative to date -- Pleural fluid cultures: Negative to date -- Peritoneal WBC 71 --Random cortisol 15 Weaned off of pressors Monitor H&H and transfuse as needed Empirically on IV cefepime, Flagyl>> transition to Augmentin Appreciate critical care help Continue midodrine--titrate down as able BP stable Hypokalemia Replete and monitor Acute rhabdomyolysis Secondary to fall CK 1904>760 Received IV fluids Monitor (2) Fall: Plan: Fall Right hemothorax S/P thoracentesis Multiple rib fractures (7, 8, 9) Right middle lobe lung collapse Left clavicle fracture--chronic Chronic nasal fractures Secondary to fall --CT Chest:New interval development of fractures of the right seventh to ninth ribs with overlying soft tissue swelling. New interval development of mild to moderate right-sided pleural effusion. New interval development of the collapse of the right middle lobe. Interval reduction in the volume of the left-sided pleural effusion with minimal effusion at present. Fracture of the medial end of the left clavicle is again noted, with interval progression of the surrounding periosteal reaction. --Facial CT:Soft tissue swelling involving the entire maxillofacial region with subcutaneous fat stranding and predominant soft tissue swelling in the right parietotemporal region and underlying loculated scalp fluid collection. Recommended clinical correlation. Old fractures or prominent nasal junctions of the nasal bone on both sides, also seen on the prior CT head study. -- Appreciate critical care help PT OT evaluate as able Will need rehab placement Incentive spirometry (3) Ribs, multiple fractures: Plan: Management as above (4) Anemia: Plan: Anemia of chronic disease Acute blood loss anemia Thrombocytopenia due to liver disease S/P PRBCs Monitor H&H and transfuse as needed Hemoglobin 8.3 today (5) Hemothorax on right: Plan: Management as above (6) Abnormal CT scan: Plan: CT of the facesoft tissue swelling involving the entire maxillofacial region with subcutaneous fat stranding leading and predominant soft tissue swelling in the right Christophe temporal region and underlying loculated scalp fluid collection. Old fractures are prominent nasal junctions of the nasal bone on both sides --Observe CT of the chestright 7th-9th rib fractures with hemothorax. Collapse of the right middle lobe. Fracture of the medial end of the left clavicleold -- pulmonary evaluation --Observe CT of the cervical spineno evidence of fractures. Mild soft tissue swelling involving the neck, prominent on the right side CT of the abdomen and pelvisunchanged hepatic cirrhosis with marked abdominopelvic ascites. Unchanged uncomplicated cholelithiasis. Unchanged complex right renal lower pole cyst and redemonstration of generalized anasarca. Post intervention changes in the liver along the lower thoracic esophagus. --Observe CT of the thoracic spineno evidence of acute fracture in the thoracic spine. Superior endplate compression fracture in the T10 vertebral body and again noted with moderate thoracic despond by CT of the lumbar spineno evidence of fractures of the lumbar spine. Superior endplate compression fracture of the L2 vertebral body is again noted and minimal grade 1 anterolisthesis of L4 over L5 CT of the head- no intracranial hemorrhage. Soft tissue swelling involving bilateral frontal zygomatic regions with predominant soft tissue swelling in the right Christophe temporal region and underlying loculated scalp fluid collection. --PT OT as able She patient will need rehab placement (7) Generalized weakness: (8) CKD (chronic kidney disease) stage 4, GFR 15-29 ml/min: Plan: Acute kidney injury on CKD IV Possible hepatorenal syndrome Monitor renal function Creatinine 1.7 today Avoid nephrotoxic agents as able Received IV fluids Plan to continue IV octreotide for 5 days and stop Renal function continues to improve (9) Alcoholic cirrhosis of liver with ascites: (10) Compression fx, thoracic spine: Plan DVT Px: SCDs for now--Re: Hemothorax, anemia CODE STATUS Full code Disposition Homeless Case management to help with discharge planning Admission and Anticipated Discharge Date Admission Date: May 18, 2025 Subjective Patient is seen and examined at bedside No new complaints Sitting in bed comfortably during my encounter Still has some rib pain but has not been using incentive spirometry Blood pressure stable today Denies any chest pain, dyspnea, nausea, vomiting, abdominal pain Review of Systems Review of Systems: All systems reviewed & are unremarkable except as noted in Subjective Physical Exam Physical Exam: Physical Exam: Vitals signs as noted above General Appearance:Moderately built and nourished, no apparent distress, +Chronic ill appearing Head: normocephalic, +traumatic , +R facial abrasion Eyes: normal inspection, EOMI Neck: supple, Trachea midline Respiratory/Chest: Decreased breath sounds, CTA, +mild tender No accessory muscle use Cardiovascular: S1, S2, No murmur Abdomen/GI:Soft, Non tender, Bowel sounds present Extremities/Musculoskeletal:normal inspection, 2-3+ B/L LE edema Neurologic/Psych:AAOX3, grossly no focal neurological deficits Skin: normal color, warm,+ ecchymosis, excoriations on extremities Results & Data Results & Data Vital Signs (Past 12 Hours) Vital Signs Temp Pulse Pulse Pulse Resp BP BP 05/22/25 11:24 36.3 C L 64 16 108/67 108/67 05/22/25 09:00 61 05/22/25 07:47 36.7 C 73 18 114/65 05/22/25 02:34 36.7 C 68 18 110/66 Pulse Ox O2 Del Method 05/22/25 11:24 94 Room Air 05/22/25 09:00 05/22/25 07:47 94 Room Air 05/22/25 02:34 93 Room Air Laboratory Results Short CBC 05/22/25 Range/Units 06:12 Hgb 8.3 L (14.0-18.0) g/dl Hct 26.2 L (42.0-52.0) % BMP 05/22/25 06:12 Sodium 134 L Potassium 4.4 Chloride 103 Carbon Dioxide 25 BUN 50 H Creatinine 1.72 H Glucose 105 H Calcium 7.6 L (10) Compression fx, thoracic spine Encounter type: initial encounter Thoracic vertebra fracture level: T10 Qualified Code(s): S22.070A - Wedge compression fracture of T9-T10 vertebra, initial encounter for closed fracture
[2025-05-23 09:06] LABS: Hematocrit (blood only) 26.4 % (42.0-52.0); Hemoglobin 8.2 g/dl (14.0-18.0); Mean Corpuscular Hemoglobin 28.2 pg (25.0-34.0); Mean Corpuscular Volume 90.7 fL (80.0-100.0); Platelet Count 118 K/uL (130-400); RDW Standard Deviation 66.5 fL (36.4-46.3); Red Blood Count 2.91 M/uL (4.70-6.10); White Blood Count 6.57 K/ul (4.8-10.8)
[2025-05-23 09:26] LABS: Anion Gap 4.0 (3-11); Blood Urea Nitrogen 55.0 mg/dl (6-23); Calcium 7.9 mg/dl (8.6-10.3); Carbon Dioxide 25.0 mmol/L (21-32); Chloride 103.0 mmol/L (98-107); Creatinine Clr Calc Pharmacy 51.2 ml/min; Glucose 112.0 mg/dl (70-99(Fasting)); Magnesium 2.1 mg/dl (1.7-2.4); Potassium 4.8 mmol/L (3.5-5.1); Sodium 132.0 mmol/L (136-145)
--- NOTE | 2025-05-23 13:59 | Hospitalist Progress Note ---
Date of Service May 23, 2025 Assessment & Plan (1) Acute hepatic encephalopathy: Plan 54-year-old homeless person with known history of alcoholic cirrhosis, history of GAVE/esophageal varices, portal hypertension, chronic hyponatremia, chronic anemia, thrombocytopenia and diastolic heart failure apparently was found by the neighbor/passerby [place]. He was brought in 05/18/25. Acute hepatic encephalopathy Noncompliant Alcoholic Hepatic cirrhosis, GAVE with ascites : S/P paracentesis 05/18--2 L of yellow cloudy fluid was removed --CT head:No acute intracranial hemorrhage at present. Soft tissue swelling involving bilateral frontozygomatic regions, with predominant soft tissue swelling in the right parietotemporal region and underlying loculated scalp fluid collection. -- Negative toxicology screen -- Ammonia level 121>>60 --Has been getting paracentesis almost weekly per patient, on Mondays. --Continue lactulosei w/ goal of 3-5 bowel movements a day, added rifaximin this adm/continue. Mental status back to baseline Continue PT OT Restarted torsemide, Aldactone at lower dose, Adjust diuretic doses as able May need repeat paracentesis next week/monday. Shock, Likely hypovolemic, rule out septic Acute blood loss anemia S/P PRBCs x3, also has ho anemia of chronic disease and thrombocytopenia iso liver dz. s/p icu care, pressors and iv albumin. random cortisol 15.52 --ECHO: Left ventricle systolic function is normal. EF 60 to 65%. Grade 1 diastolic dysfunction. Mild mitral, tricuspid regurgitation. Mild aortic root dilatation. --Blood cultures: Negative to date --Ascitic fluid cultures: Negative to date -- Pleural fluid cultures: Negative to date -- Peritoneal WBC 71 Now off of pressors, BP wnl Monitor H&H and transfuse as needed Empirically on IV cefepime, Flagyl>> transition to Augmentin, end date 05/25. Continue midodrine--titrate down as able Monitor HnH closely , transfuse as needed. Hypokalemia: Replete and monitor Acute rhabdomyolysis: Secondary to fall. CK 1904>760, s/p iv fluids. Monitor Fall Right hemothorax S/P thoracentesis Multiple rib fractures (7, 8, 9) Right middle lobe lung collapse Left clavicle fracture--chronic Chronic nasal fractures Generalized weakness: Secondary to fall --CT Chest:New interval development of fractures of the right seventh to ninth ribs with overlying soft tissue swelling. New interval development of mild to moderate right-sided pleural effusion. New interval development of the collapse of the right middle lobe. Interval reduction in the volume of the left-sided pl eural effusion with minimal effusion at present. Fracture of the medial end of the left clavicle is again noted, with interval progression of the surrounding periosteal reaction. --Facial CT:Soft tissue swelling involving the entire maxillofacial region with subcutaneous fat stranding and predominant soft tissue swelling in the right parietotemporal region and underlying loculated scalp fluid collection. Recommended clinical correlation. Old fractures or prominent nasal junctions of the nasal bone on both sides, also seen on the prior CT head study. -- Appreciate critical care and pulm help PT OT evaluate as able Will need rehab placement Incentive spirometry. compliance encouraged. Acute kidney injury on CKD IV Possible hepatorenal syndrome Monitor renal function Creatinine 1.8 today Avoid nephrotoxic agents as able Received IV fluids Plan to continue IV octreotide for 5 days and stop Renal function if worsening, consider nephro. DVT Px: SCDs for now--Re: Hemothorax, anemia CODE STATUS: Full code Disposition: Homeless, Case management to help with discharge planning Admission and Anticipated Discharge Date Admission Date: May 18, 2025 Subjective Patient was seen and examined at bedside. Patient was lying in bed, on room air, NAD, resting comfortably. Patient was sleeping, woke up to exam. Oriented. Reports some rib pain but not compliant with incentive spirometer. Encouraged to utilize incentive spirometer. Patient reports eating okay and moving bowels today a.m., RN not sure of last bowel movement. Physical Exam Physical Exam: General Appearance:Moderately built and nourished, no apparent distress, +Chronic ill appearing Head: normocephalic, +traumatic , +R facial abrasion Eyes: normal inspection, EOMI Neck: supple, Trachea midline Respiratory/Chest: Decreased breath sounds, CTA, +mild tender No accessory muscle use Cardiovascular: S1, S2, No murmur Abdomen/GI:Soft, Non tender, Bowel sounds present Extremities/Musculoskeletal:normal inspection, 2-3+ B/L LE edema Neurologic/Psych:AAOX3, grossly no focal neurological deficits Skin: normal color, warm,+ ecchymosis, excoriations on extremities Results & Data Results & Data Vital Signs (Past 12 Hours) Vital Signs Temp Pulse Pulse Pulse Resp BP BP 05/23/25 11:50 36.7 C 70 18 106/65 05/23/25 09:48 05/23/25 07:52 36.6 C 70 18 106/60 05/23/25 07:28 69 05/23/25 03:05 36.6 C 72 18 107/62 Pulse Ox O2 Del Method 05/23/25 11:50 92 Room Air 05/23/25 09:48 Room Air 05/23/25 07:52 92 Room Air 05/23/25 07:28 05/23/25 03:05 93 Room Air
[2025-05-23] MEDS: LACTULOSE SYRUP 20 GM/30 ML UDC PO SCH (14:21)
[2025-05-24 07:14] LABS: Hematocrit (blood only) 24.5 % (42.0-52.0); Hemoglobin 7.8 g/dl (14.0-18.0); Mean Corpuscular Hemoglobin 29.0 pg (25.0-34.0); Mean Corpuscular Volume 91.1 fL (80.0-100.0); Platelet Count 131 K/uL (130-400); RDW Standard Deviation 64.6 fL (36.4-46.3); Red Blood Count 2.69 M/uL (4.70-6.10); White Blood Count 8.29 K/ul (4.8-10.8)
[2025-05-24 07:38] LABS: Anion Gap 3.0 (3-11); Blood Urea Nitrogen 56.0 mg/dl (6-23); Calcium 7.8 mg/dl (8.6-10.3); Carbon Dioxide 25.0 mmol/L (21-32); Chloride 103.0 mmol/L (98-107); Creatinine Clr Calc Pharmacy 54.4 ml/min; Glucose 100.0 mg/dl (70-99(Fasting)); Magnesium 1.9 mg/dl (1.7-2.4); Potassium 5.6 mmol/L (3.5-5.1); Sodium 131.0 mmol/L (136-145)
--- NOTE | 2025-05-24 11:43 | Hospitalist Progress Note ---
Date of Service May 24, 2025 Assessment & Plan (1) Acute hepatic encephalopathy: Plan 54-year-old homeless person with known history of alcoholic cirrhosis, history of GAVE/esophageal varices, portal hypertension, chronic hyponatremia, chronic anemia, thrombocytopenia and diastolic heart failure apparently was found by the neighbor/passerby [place]. He was brought in 05/18/25. Acute hepatic encephalopathy Noncompliant Alcoholic Hepatic cirrhosis, GAVE with ascites : S/P paracentesis 05/18--2 L of yellow cloudy fluid was removed --CT head:No acute intracranial hemorrhage at present. Soft tissue swelling involving bilateral frontozygomatic regions, with predominant soft tissue swelling in the right parietotemporal region and underlying loculated scalp fluid collection. -- Negative toxicology screen -- Ammonia level 121>>60 --Has been getting paracentesis almost weekly per patient, on Mondays. --Continue lactulose w/ goal of 3-5 bowel movements a day, added rifaximin this adm/continue. Mental status back to baseline Continue PT OT Restarted torsemide, Aldactone at lower dose, Adjust diuretic doses as able - Hold aldactone due to hyperkalemia, increase torsemide to 10 mg bid. will do FR 1500 ml (protein shakes don't count towards FR) May need repeat paracentesis next week/Monday. Shock, Likely hypovolemic, rule out septic Acute blood loss anemia S/P PRBCs x3, also has ho anemia of chronic disease and thrombocytopenia iso liver dz. s/p icu care, pressors and iv albumin. random cortisol 15.52 --ECHO: Left ventricle systolic function is normal. EF 60 to 65%. Grade 1 diastolic dysfunction. Mild mitral, tricuspid regurgitation. Mild aortic root dilatation. --Blood, pleural fluid and ascitic fluid cultures: Negative -- Peritoneal WBC 71 Now off of pressors, BP wnl Monitor H&H and transfuse as needed Empirically on IV cefepime, Flagyl>> transition to Augmentin, end date 05/25. Continue midodrine--titrate down as able Monitor HnH closely , transfuse as needed. Hypokalemia: Replete and monitor, now hyperkalemia noted, hold aldactone, administer low K diet, monitor K 4 pm and in AM Acute rhabdomyolysis: Secondary to fall. CK 1904>760, s/p iv fluids. Monitor Fall Right hemothorax S/P thoracentesis Multiple rib fractures (7, 8, 9) Right middle lobe lung collapse Left clavicle fracture--chronic Chronic nasal fractures Generalized weakness: Secondary to fall --CT Chest:New interval development of fractures of the right seventh to ninth ribs with overlying soft tissue swelling. New interval development of mild to moderate right-sided pleural effusion. New interval development of the collapse of the right middle lobe. Interval reduction in the volume of the left-sided pleural effusion with minimal effusion at present. Fracture of the medial end of the left clavicle is again noted, with interval progression of the surrounding periosteal reaction. --Facial CT:Soft tissue swelling involving the entire maxillofacial region with subcutaneous fat stranding and predominant soft tissue swelling in the right parietotemporal region and underlying loculated scalp fluid collection. Recommended clinical correlation. Old fractures or prominent nasal junctions of the nasal bone on both sides, also seen on the prior CT head study. -- Appreciate critical care and pulm help PT OT evaluate as able Will need rehab placement Incentive spirometry. compliance encouraged. Acute kidney injury on CKD IV Possible hepatorenal syndrome Monitor renal function Creatinine lately around 1.8 Avoid nephrotoxic agents as able Received IV fluids Plan to continue IV octreotide for 5 days and stop If worsening renal function , consider nephro. DVT Px: SCDs for now--Re: Hemothorax, anemia CODE STATUS: Full code Disposition: Homeless, Case management to help with discharge planning Admission and Anticipated Discharge Date Admission Date: May 18, 2025 Subjective Patient was seen and examined at bedside. Patient was lying in bed, on room air, NAD, resting comfortably. Reports some rib pain but not compliant with incentive spirometer. Encouraged to utilize incentive spirometer. Patient reports eating okay and moving bowels today a.m. Physical Exam Physical Exam: General Appearance:Moderately built and nourished, no apparent distress, +Chronic ill appearing Head: normocephalic, +traumatic , +R facial abrasion Eyes: normal inspection, EOMI Neck: supple, Trachea midline Respiratory/Chest: Decreased breath sounds, CTA, +mild tender No accessory muscle use Cardiovascular: S1, S2, No murmur Abdomen/GI:Soft, Non tender, Bowel sounds present Extremities/Musculoskeletal:normal inspection, 2-3+ B/L LE edema Neurologic/Psych:AAOX3, grossly no focal neurological deficits Skin: normal color, warm,+ ecchymosis, excoriations on extremities Results & Data Results & Data Vital Signs (Past 12 Hours) Vital Signs Temp Pulse Pulse Resp BP Pulse Ox O2 Del Method 05/24/25 07:50 36.8 C 74 18 104/65 95 Room Air 05/24/25 02:18 37.1 C 80 16 118/71 91 Room Air
[2025-05-24] MEDS: TORSEMIDE 10 MG TAB PO SCH (16:41)
[2025-05-24 17:37] LABS: Anion Gap 4.0 (3-11); Calcium 8.2 mg/dl (8.6-10.3); Carbon Dioxide 23.0 mmol/L (21-32); Chloride 101.0 mmol/L (98-107); Potassium 5.8 mmol/L (3.5-5.1); Sodium 128.0 mmol/L (136-145)
[2025-05-24 17:43] LABS: Blood Urea Nitrogen 59.0 mg/dl (6-23); Creatinine Clr Calc Pharmacy 57.0 ml/min; Glucose 110.0 mg/dl (70-99(Fasting))
[2025-05-24] MEDS: FUROSEMIDE 40 MG/4 ML VIAL IV SCH (18:21)
[2025-05-24] MEDS: DEXTROSE 50% 50 ML SYRINGE IV STA (18:25)
[2025-05-24] MEDS: INSULIN HUMAN REGULAR PER UNIT 10 UNITS in SYRINGE 9.9 ML IV STA (18:25)
[2025-05-24] MEDS: ALBUTEROL 0.5% NEB SOLN 2.5 MG/0.5 ML VIAL NEB STA (19:53)
[2025-05-24] MEDS: CALCIUM GLUCONATE 1,000 MG/60 ML BAG IV STA (21:45)
[2025-05-24 22:04] LABS: Anion Gap 5.0 (3-11); Blood Urea Nitrogen 61.0 mg/dl (6-23); Calcium 8.2 mg/dl (8.6-10.3); Carbon Dioxide 24.0 mmol/L (21-32); Chloride 100.0 mmol/L (98-107); Creatinine Clr Calc Pharmacy 53.4 ml/min; Glucose 95.0 mg/dl (70-99(Fasting)); Potassium 5.3 mmol/L (3.5-5.1); Sodium 129.0 mmol/L (136-145)
[2025-05-25] MEDS: SODIUM ZIRCONIUM CYCLOSILICATE 10 GM PACKET PO STA (00:56)
[2025-05-25 07:31] LABS: Hematocrit (blood only) 24.2 % (42.0-52.0); Hemoglobin 7.3 g/dl (14.0-18.0); Mean Corpuscular Hemoglobin 27.7 pg (25.0-34.0); Mean Corpuscular Volume 91.7 fL (80.0-100.0); Platelet Count 159 K/uL (130-400); RDW Standard Deviation 66.4 fL (36.4-46.3); Red Blood Count 2.64 M/uL (4.70-6.10); White Blood Count 8.49 K/ul (4.8-10.8)
[2025-05-25 07:47] LABS: Anion Gap 4.0 (3-11); Blood Urea Nitrogen 60.0 mg/dl (6-23); Calcium 8.0 mg/dl (8.6-10.3); Carbon Dioxide 25.0 mmol/L (21-32); Chloride 102.0 mmol/L (98-107); Creatinine Clr Calc Pharmacy 56.8 ml/min; Glucose 94.0 mg/dl (70-99(Fasting)); Magnesium 1.8 mg/dl (1.7-2.4); Potassium 5.2 mmol/L (3.5-5.1); Sodium 131.0 mmol/L (136-145)
--- NOTE | 2025-05-25 11:49 | Hospitalist Progress Note ---
Date of Service May 25, 2025 Assessment & Plan (1) Acute hepatic encephalopathy: Plan 54-year-old homeless person with known history of alcoholic cirrhosis, history of GAVE/esophageal varices, portal hypertension, chronic hyponatremia, chronic anemia, thrombocytopenia and diastolic heart failure apparently was found by the neighbor/passerby [place]. He was brought in 05/18/25. Acute hepatic encephalopathy Noncompliant Alcoholic Hepatic cirrhosis, GAVE with ascites : S/P paracentesis 05/18--2 L of yellow cloudy fluid was removed --CT head:No acute intracranial hemorrhage at present. Soft tissue swelling involving bilateral frontozygomatic regions, with predominant soft tissue swelling in the right parietotemporal region and underlying loculated scalp fluid collection. -- Negative toxicology screen -- Ammonia level 121>>60 --Has been getting paracentesis almost weekly per patient, on Mondays. --Continue lactulose w/ goal of 3-5 bowel movements a day, added rifaximin this adm/continue. Mental status back to baseline Continue PT OT Being diuresed, appreciate nephro help. FR 1500, aldactone on hold due to hyperkalemia. May need repeat paracentesis ayanna Shock, Likely hypovolemic, rule out septic Acute blood loss anemia S/P PRBCs x3, also has ho anemia of chronic disease and thrombocytopenia iso liver dz. s/p icu care, pressors and iv albumin. random cortisol 15.52 --ECHO: Left ventricle systolic function is normal. EF 60 to 65%. Grade 1 diastolic dysfunction. Mild mitral, tricuspid regurgitation. Mild aortic root dilatation. --Blood, pleural fluid and ascitic fluid cultures: Negative -- Peritoneal WBC 71 Now off of pressors, BP wnl Empirically on IV cefepime, Flagyl>> transition to Augmentin, end date 05/25. Continue midodrine--titrate down as able Monitor HnH closely , transfuse as needed. Hb today 7.3, repeat at 1 pm if dropping repeat CXR to look for any further bleed and do fobt. Hypokalemia: Replete and monitor, now hyperkalemia noted, hold aldactone, administer low K diet, monitor K 4 pm and in AM Acute rhabdomyolysis: Secondary to fall. CK 1904>760, s/p iv fluids. Monitor Fall Right hemothorax S/P thoracentesis Multiple rib fractures (7, 8, 9) Right middle lobe lung collapse Left clavicle fracture--chronic Chronic nasal fractures Generalized weakness: Secondary to fall --CT Chest:New interval development of fractures of the right seventh to ninth ribs with overlying soft tissue swelling. New interval development of mild to moderate right-sided pleural effusion. New interval development of the collapse of the right middle lobe. Interval reduction in the volume of the left-sided pleural effusion with minimal effusion at present. Fracture of the medial end of the left clavicle is again noted, with interval progression of the surrounding periosteal reaction. --Facial CT:Soft tissue swelling involving the entire maxillofacial region with subcutaneous fat stranding and predominant soft tissue swelling in the right parietotemporal region and underlying loculated scalp fluid collection. Recommended clinical correlation. Old fractures or prominent nasal junctions of the nasal bone on both sides, also seen on the prior CT head study. -- Appreciate critical care and pulm help PT OT evaluate as able Will need rehab placement Incentive spirometry. compliance encouraged. Acute kidney injury on CKD IV Possible hepatorenal syndrome Hyperkalemia, hyponatremia Volume overload iso above, echo as above Aldactone on hold, on iv lasix appreciate nephro assistance. K getting lower, Na improving still w/ significant vol overload on exam Will complete 5 d octreotide ayanna DVT Px: SCDs for now--Re: Hemothorax, anemia CODE STATUS: Full code Disposition: Homeless, Case management to help with discharge planning Admission and Anticipated Discharge Date Admission Date: May 18, 2025 Subjective Patient was seen and examined at bedside. Patient was lying in bed, on room air, NAD, resting comfortably. Pt encouraged to maintain compliance w/ incentive spirometer and lactulose. Patient reports eating okay and moving bowels today a.m. at 4, and reports 3 yesterday, RN unsure of BMs. Pt denies dizzines, sob, chest pain. Physical Exam 2 Physical Exam: General Appearance:Moderately built and nourished, no apparent distress, +Chronic ill appearing Head: normocephalic, +traumatic , +R facial abrasion Eyes: normal inspection, EOMI Neck: supple, Trachea midline Respiratory/Chest: Decreased breath sounds, CTA, +mild tender No accessory muscle use Cardiovascular: S1, S2, No murmur Abdomen/GI:Soft, Non tender, Bowel sounds present Extremities/Musculoskeletal:normal inspection, 2-3+ B/L LE edema Neurologic/Psych:AAOX3, grossly no focal neurological deficits Skin: normal color, warm,+ ecchymosis, excoriations on extremities Results & Data Results & Data Vital Signs (Past 12 Hours) Vital Signs Temp Pulse Pulse Resp BP BP Pulse Ox 05/25/25 09:54 05/25/25 08:26 37.0 C 71 17 102/53 L 93 05/25/25 07:12 69 05/25/25 03:53 36.9 C 74 20 107/54 L 92 05/25/25 00:26 36.7 C 64 16 116/47 L O2 Del Method 05/25/25 09:54 Room Air 05/25/25 08:26 Room Air 05/25/25 07:12 05/25/25 03:53 Room Air 05/25/25 00:26 Room Air
--- NOTE | 2025-05-25 12:57 | Nephrology Consultation ---
Date of Consultation May 25, 2025 Assessment & Plan (1) GRACIELA (acute kidney injury): hard to pinpoint baseline as is typical for ESLD patients. very severe Liver Dz so partly has abnormal Creat from liver Disease. Also had Rhabdo, Hypovolemia etc on Adx. Creat is slowly improving or at least not worse. Continue supportive care miracle BP. (2) Hyponatremia: Sec to Liver Cirrhosis mediated Hypervolemia causing Hypervolemic Hyponatremia. na did go up slightly after iv lasix started. Will not hold Lasix unless BP gets below 90 sys. Cannot raise his na unless we get some diuresis. for now continue lasix 40 iv q8hr Salt tab and urea are not recommended in his case. (3) Hyperkalemia: On adx was low but now is h8igh. Hold aldactone. Hold off K supplements. 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 he is a homeless person with known history of alcoholic cirrhosis, history of GAVE/esophageal varices, portal hypertension, chronic hyponatremia, chronic anemia, thrombocytopenia and diastolic heart failure apparently was found by the neighbor[place]passerby [place]. admitted 05/18 with Dx of Hepatc encephalopthay. Currently has massive edema/Anasarca/Ascites and Low Na and high K. BP is low and on Midodrine 15 tid. renal function varies a lot as expected. but had 1.2 creat. On Adx was 1.84 and today is 1.6 and has been within tight range for last 7 days. Started on lasix 40 iv q8hr from yesterday. Also on octreotide . had PRBC and Abx also. noted with multiple rib fractures. ROS--Currently feels fine. massive edema but no SOB and just finished his full plate of Lunch. Physical Exam Physical Exam: General Appearance: Cachectic, no apparent distress, +Chronic ill appearing HEENT-- normocephalic, MM moist, Neck supple. No JVD Respiratory/Chest: Decreased breath sounds, ++ tender Cardiovascular: S1, S2, No murmur Abdomen/GI: Ascites ++++. NOn tender. Extremities/Musculoskeletal:Anasarca 4+ edema Neurologic/Psych:AAOX3, grossly no focal neurological deficits Skin: normal color, warm,+ ecchymosis, excoriations on extremities Allergies Allergy/AdvReac Type Severity Reaction Status Date / Time Penicillins Allergy Unknown pt unsure Verified 03/09/25 18:12 of reaction Home Medications Medication Instructions Recorded Confirmed Type ferrous sulfate 325 mg (65 mg 325 mg PO DAILY 05/18/25 05/18/25 History iron) tablet (FeroSul) pantoprazole 40 mg tablet,delayed 40 mg PO BID 05/18/25 05/18/25 History release spironolactone 100 mg tablet 100 mg PO QAM 05/18/25 05/18/25 History Patient History Medical History Hypervolemia Symptomatic anemia hospitalized [facility] 02/26/24 for issues related to this Poor historian main details obtained from [place] med record Alcoholic cirrhosis of liver with ascites hospitalized [facility] 02/26/24 for issues related to this Metabolic encephalopathy hospitalized [facility] 02/26/24 for issues related to this PAF (paroxysmal atrial fibrillation) pt denies; hospitalized [facility] 02/26/24, evaluated by tae garcia per cardio consult Esophagitis History of severe sepsis hospitalized 02/26/24, [facility] 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 per med record; hospitalized [facility] 02/26/24 for issues related to this Orthostatic hypotension "he thinks" COPD (chronic obstructive pulmonary disease) History of pneumonia 07/2023, 02/26/24, hospitalized [facility] 02/26/24 for issues related to this S/P abdominal paracentesis 03/21/2024, [facility] Current every day smoker Surgical History History of esophagogastroduodenoscopy (EGD) S/P cataract extraction right eye/left History of tonsillectomy History of hernia surgery infancy Family History Mother Stroke Diabetes Other Colorectal cancer Heart disease Social History Smoking Status: Current every day smoker Tobacco Type: Cigarettes Cigarettes Per Day: 1.5-2; Second Hand Exposure: No; Do You Dip or Chew Tobacco: No; Tobacco Cessation Education Requested by Patient: No Hx Alcohol Use: Yes Alcohol type: beer, wine and hard liquor Hx Substance Use: No (patient reports no) Preferred Language: Polish Communication Ability: Effective 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 Required: No Beliefs That Will Affect Care: None Current Living Situation: Homeless Current Living Situation Comment: custodial in [place] Other Information That Helps Us Care for You: No Feels Safe at Home: Yes Safety Concerns: Feels Safe At This Time Assistive Devices: None Results & Data Vital Signs (Past 12 Hours) Vital Signs Temp Pulse Pulse Resp BP BP Pulse Ox 05/25/25 12:22 36.6 C 73 18 111/68 94 05/25/25 09:54 05/25/25 08:26 37.0 C 71 17 102/53 L 93 05/25/25 07:12 69 05/25/25 03:53 36.9 C 74 20 107/54 L 92 O2 Del Method 05/25/25 12:22 Room Air 05/25/25 09:54 Room Air 05/25/25 08:26 Room Air 05/25/25 07:12 05/25/25 03:53 Room Air Laboratory Results CBc, renal panel ,
[2025-05-25 14:33] LABS: Hematocrit (blood only) 25.5 % (42.0-52.0); Hemoglobin 7.8 g/dl (14.0-18.0)
[2025-05-26 08:11] LABS: Hematocrit (blood only) 24.4 % (42.0-52.0); Hemoglobin 7.4 g/dl (14.0-18.0); Mean Corpuscular Hemoglobin 27.7 pg (25.0-34.0); Mean Corpuscular Volume 91.4 fL (80.0-100.0); Platelet Count 192 K/uL (130-400); RDW Standard Deviation 67.8 fL (36.4-46.3); Red Blood Count 2.67 M/uL (4.70-6.10); White Blood Count 7.20 K/ul (4.8-10.8)
[2025-05-26 08:50] LABS: Anion Gap 6.0 (3-11); Calcium 8.0 mg/dl (8.6-10.3); Carbon Dioxide 23.0 mmol/L (21-32); Chloride 103.0 mmol/L (98-107); Magnesium 1.6 mg/dl (1.7-2.4); Potassium 4.4 mmol/L (3.5-5.1); Sodium 132.0 mmol/L (136-145)
[2025-05-26 08:55] LABS: Blood Urea Nitrogen 59.0 mg/dl (6-23); Creatinine Clr Calc Pharmacy 63.7 ml/min; Glucose 127.0 mg/dl (70-99(Fasting))
--- NOTE | 2025-05-26 12:41 | Hospitalist Progress Note ---
Date of Service May 26, 2025 Assessment & Plan (1) Acute hepatic encephalopathy: Plan 54-year-old homeless person with known history of alcoholic cirrhosis, history of GAVE/esophageal varices, portal hypertension, chronic hyponatremia, chronic anemia, thrombocytopenia and diastolic heart failure apparently was found by the neighbor/passerby [place]. He was brought in 05/18/25. Acute hepatic encephalopathy Noncompliant Alcoholic Hepatic cirrhosis, GAVE with ascites : S/P paracentesis 05/18--2 L of yellow cloudy fluid was removed --CT head:No acute intracranial hemorrhage at present. Soft tissue swelling involving bilateral frontozygomatic regions, with predominant soft tissue swelling in the right parietotemporal region and underlying loculated scalp fluid collection. -- Negative toxicology screen -- Ammonia level 121>>60 --Has been getting paracentesis almost weekly per patient, on Mondays. --Continue lactulose w/ goal of 3-5 bowel movements a day, added rifaximin this adm/continue. Mental status back to baseline Continue PT OT Being diuresed, appreciate nephro help. FR 1500, aldactone on hold due to hyperkalemia. For paracentesis today Shock, Likely hypovolemic, rule out septic Acute blood loss anemia S/P PRBCs x3, also has ho anemia of chronic disease and thrombocytopenia iso liver dz. s/p icu care, pressors and iv albumin. random cortisol 15.52 --ECHO: Left ventricle systolic function is normal. EF 60 to 65%. Grade 1 diastolic dysfunction. Mild mitral, tricuspid regurgitation. Mild aortic root dilatation. --Blood, pleural fluid and ascitic fluid cultures: Negative -- Peritoneal WBC 71 Now off of pressors, BP wnl Empirically on IV cefepime, Flagyl>> transition to Augmentin, complicated course on 05/25. Continue midodrine--titrate down as able, decrease to 12.5 mg tid today Monitor HnH closely , transfuse as needed. Hb today 7.3, repeat at 1 pm if dropping repeat CXR to look for any further bleed and do fobt. Hypokalemia: Replete and monitor, now hyperkalemia noted as of 05/24, hold aldactone, administer low K diet, see below Acute rhabdomyolysis: Secondary to fall. CK 1904>760, s/p iv fluids. Monitor Fall Right hemothorax S/P thoracentesis Multiple rib fractures (7, 8, 9) Right middle lobe lung collapse Left clavicle fracture--chronic Chronic nasal fractures Generalized weakness: Secondary to fall --CT Chest:New interval development of fractures of the right seventh to ninth ribs with overlying soft tissue swelling. New interval development of mild to moderate right-sided pleural effusion. New interval development of the collapse of the right middle lobe. Interval reduction in the volume of the left-sided pleural effusion with minimal effusion at present. Fracture of the medial end of the left clavicle is again noted, with interval progression of the surrounding periosteal reaction. --Facial CT:Soft tissue swelling involving the entire maxillofacial region with subcutaneous fat stranding and predominant soft tissue swelling in the right parietotemporal region and underlying loculated scalp fluid collection. Recommended clinical correlation. Old fractures or prominent nasal junctions of the nasal bone on both sides, also seen on the prior CT head study. -- Appreciate critical care and pulm help PT OT evaluate as able Will need rehab placement Incentive spirometry. compliance encouraged. Acute kidney injury on CKD IV Possible hepatorenal syndrome Hyperkalemia, hyponatremia Volume overload iso above, echo as above Aldactone on hold, on iv lasix appreciate nephro assistance. K getting lower, Na improving still w/ significant vol overload on exam s/p 5 d octreotide ayanna DVT Px: SCDs for now--Re: Hemothorax, anemia CODE STATUS: Full code Disposition: Homeless, Case management to help with discharge planning, will get paracentesis today. Admission and Anticipated Discharge Date Admission Date: May 18, 2025 Subjective Patient was seen and examined at bedside. Patient was lying in bed, on room air, NAD, resting comfortably. Pt encouraged to maintain compliance w/ incentive spirometer and lactulose. Patient reports eating okay and moving bowels- 4 yesterday. Pt denies dizzines, sob, chest pain. Physical Exam Physical Exam: General Appearance:Moderately built and nourished, no apparent distress, +Chronic ill appearing Head: normocephalic, +traumatic , +R facial abrasion Eyes: normal inspection, EOMI Neck: supple, Trachea midline Respiratory/Chest: Decreased breath sounds, CTA, +mild tender No accessory muscle use Cardiovascular: S1, S2, No murmur Abdomen/GI:Soft, Non tender, Bowel sounds present Extremities/Musculoskeletal:normal inspection, 2-3+ B/L LE edema Neurologic/Psych:AAOX3, grossly no focal neurological deficits Skin: normal color, warm,+ ecchymosis, excoriations on extremities Results & Data Results & Data Vital Signs (Past 12 Hours) Vital Signs Temp Pulse Pulse Pulse Resp BP Pulse Ox 05/26/25 12:06 05/26/25 08:00 66 05/26/25 07:56 36.7 C 74 18 112/49 L 94 05/26/25 04:04 36.5 C 62 18 116/69 93 O2 Del Method 05/26/25 12:06 Room Air 05/26/25 08:00 05/26/25 07:56 Room Air 05/26/25 04:04 Room Air
--- NOTE | 2025-05-26 13:21 | Ultrasound Report ---
ULTRASOUND-GUIDED PARACENTESIS CLINICAL HISTORY: Ascites PROCEDURE: Procedure and risks were explained. Informed consent was obtained. A final timeout was com pleted. A pocket of ascites was identified in the right lower quadrant. The right lower quadrant was prepped and draped in sterile fashion. 1% lidocaine was utilized for skin anesthesia. Utilizing ultrasound guidance, a 5 [place] safety centesis catheter was advanced into the pocket of as cites. Ultrasound image was obtained. A total of 5 L of yellow ascites fluid was removed. The cathete r was removed and Band-Aid applied. The patient tolerated the procedure well. Vital signs will be mon itored postprocedure. IMPRESSION: Ultrasound-guided paracentesis as above. Performed, dictated, and signed by Colten Rivas PA-C; to be co-signed by Dr. John Titus. Electronically signed by: John Titus M.D. 05/26/2025 4:07 PM
[2025-05-26] MEDS: MAGNESIUM SULFATE / D5W 1 GM/100 ML BAG IV SCH (14:26)
--- NOTE | 2025-05-26 14:41 | Nephrology Progress Note ---
Date of Service May 26, 2025 Assessment & Plan (1) GRACIELA (acute kidney injury): Plan: hard to pinpoint baseline as is typical for ESLD patients. very severe Liver Dz so partly has abnormal Creat from liver Disease. Also had Rhabdo, Hypovolemia etc on Admission. Creat is slowly improving to 1.5 today. That said, w/ 5L paracentesis on 05/26 and on high dose diuretics, may need albumin. hgb hanging mid 7's >> avoid under 7 d/t need for renal perfusion >consider albumin IV between 30-40 gm total >hold diuretics until tomorrow AM Continue supportive care miracle BP > on midodrine Care coordinated by phone w/ Dr Rodriguez regarding limits/indications for albumin, for resuming lasix, for lab frequency; we are in agreement. (2) Hyponatremia: Plan: Sec to Liver Cirrhosis mediated Hypervolemia causing Hypervolemic Hyponatremia. na did go up slightly after iv lasix started. >>HOLD lasix, aldactone for now w/ large volume paracentesis and reeval in am; in generaly Will not hold Lasix unless BP gets below 90 sys. Cannot raise his na unless we get some diuresis. Salt tab and urea are not recommended in his case. continue fluid limit 1.5 L max (3) Hyperkalemia: Plan: On adx was low then climbed to 5.8, down to 4.4 today Hold aldactone. Hold off K supplements. has had lasix as above but will hold that for now after 5L paracentesis Admission and Anticipated Discharge Date Admission Date: May 18, 2025 Subjective s/p 5L paracentesis today; denies sob, n/v, worsening edema; tells me he gets paracentesis weekly as OP; does not mention issues w/ rib/facial/back pain; wants slater out Review of Systems 2 Review of Systems: All systems reviewed & are unremarkable except as noted in Subjective Physical Exam 2 Constitutional: well developed, + cachectic, + frail appearing and cooperative; no acute distress Eyes: EOM intact bilaterally ENMT: Mouth: + dry oral mucous membranes Respiratory: normal respiratory effort Auscultation: + diminished lung sounds Cardiovascular: Rate/Rhythm: regular rate and regular rhythm Extremities: + edema Gastrointestinal (Abdomen): Inspection/Auscultation: normal bowel sounds P ercussion/Palpation: abdomen soft; abdomen nontender Musculoskeletal: Extremities: strength 5/5 throughout Skin: no rashes, warm and dry Neurologic: dc, fluent speech, no tremor Results & Data Vital Signs (Past 12 Hours) Vital Signs Temp Pulse Pulse Pulse Resp BP Pulse Ox 05/26/25 13:00 37.0 C 67 20 114/65 96 05/26/25 12:18 36.8 C 70 18 104/62 95 05/26/25 12:06 05/26/25 08:00 66 05/26/25 07:56 36.7 C 74 18 112/49 L 94 05/26/25 04:04 36.5 C 62 18 116/69 93 O2 Del Method 05/26/25 13:00 Room Air 05/26/25 12:18 Room Air 05/26/25 12:06 Room Air 05/26/25 08:00 05/26/25 07:56 Room Air 05/26/25 04:04 Room Air Laboratory Results 05/26/25 07:13 05/26/25 07:13
[2025-05-26] MEDS: ALBUMIN 25% 25 GM/100 ML VIAL IV SCH (17:38)
[2025-05-26] MEDS: MIDODRINE HCL 2.5 MG TAB PO SCH (17:39)
[2025-05-27 08:50] LABS: Hematocrit (blood only) 21.6 % (42.0-52.0); Hemoglobin 7.0 g/dl (14.0-18.0); Mean Corpuscular Hemoglobin 29.3 pg (25.0-34.0); Mean Corpuscular Volume 90.4 fL (80.0-100.0); Platelet Count 204 K/uL (130-400); RDW Standard Deviation 67.5 fL (36.4-46.3); Red Blood Count 2.39 M/uL (4.70-6.10); White Blood Count 7.04 K/ul (4.8-10.8)
[2025-05-27 09:05] LABS: Anion Gap 5.0 (3-11); Blood Urea Nitrogen 52.0 mg/dl (6-23); Calcium 7.9 mg/dl (8.6-10.3); Carbon Dioxide 24.0 mmol/L (21-32); Chloride 103.0 mmol/L (98-107); Creatinine Clr Calc Pharmacy 64.0 ml/min; Glucose 111.0 mg/dl (70-99(Fasting)); Magnesium 1.9 mg/dl (1.7-2.4); Potassium 4.3 mmol/L (3.5-5.1); Sodium 132.0 mmol/L (136-145)
--- NOTE | 2025-05-27 11:20 | Nephrology Progress Note ---
Date of Service May 27, 2025 Assessment & Plan (1) GRACIELA (acute kidney injury): Plan: hard to pinpoint baseline as is typical for ESLD patients. very severe Liver Dz so partly has abnormal Creat from liver Disease. Also had Rhabdo, Hypovolemia etc on Admission. Creat is slowly improving to 1.5 today. That said, w/ 5L paracentesis on 05/26 and on high dose diuretics; di dhave albumin. hgb hanging mid 7's but down to 7 today > for pRBC today/tomorrow most likely >> avoid under 7 d/t need for renal perfusion >had albumin yesterday >resumed lasix last evening 1800 40 mg tid IV >>recommend starting po diuretics>> 200 mg spironolactone, 80 mg lasix po daily >daily bmp Continue supportive care miracle BP > on high dose midodrine Care coordinated by [employer] w/ Dr Rodriguez regarding proposed oral doses spironolactone and lasix, for possible transfusion; we are in agreement. (2) Hyponatremia: Plan: Sec to Liver Cirrhosis mediated Hypervolemia causing Hypervolemic Hyponatremia. na did go up slightly after iv lasix started. >resuming cirrhosis diuretic regimen Cannot raise his na unless we get some diuresis. Salt tab and urea are not recommended in his case. continue fluid limit 1.5 L max (3) Hyperkalemia: Plan: On adx was low then climbed to 5.8, down to 4.3 today resuming aldactone >> monitor K Hold off K supplements. Admission and Anticipated Discharge Date Admission Date: May 18, 2025 Subjective no acute interval events cclinically; notes "pretty good"edema on exremities; no sob; no orthostatic sx Review of Systems 2 Review of Systems: All systems reviewed & are unremarkable except as noted in Subjective Physical Exam 2 Constitutional: well developed, + cachectic, + frail appearing and cooperative; no acute distress Eyes: EOM intact bilaterally ENMT: Mouth: + dry oral mucous membranes Respiratory: normal respiratory effort Auscultation: + diminished lung sounds Cardiovascular: Rate/Rhythm: regular rate and regular rhythm Extremities: + edema (2+) Gastrointestinal (Abdomen): Inspection/Auscultation: normal bowel sounds P ercussion/Palpation: abdomen soft; abdomen nontender Musculoskeletal: Extremities: strength 5/5 throughout Skin: no rashes, warm and dry Results & Data Vital Signs (Past 12 Hours) Vital Signs Temp Pulse Pulse Resp BP Pulse Ox O2 Del Method 05/27/25 07:46 37.0 C 68 16 92/49 L 93 Room Air 05/27/25 04:00 36.7 C 68 18 114/61 93 Room Air Laboratory Results 05/27/25 08:06 05/27/25 08:06
[2025-05-27] MEDS: SPIRONOLACTONE 100 MG TAB PO SCH (13:00)
[2025-05-27] MEDS ORDERED: SODIUM CHLORIDE 0.9% 100 ML IV PRN (15:25)
--- NOTE | 2025-05-27 15:32 | Hospitalist Progress Note ---
Date of Service May 27, 2025 Assessment & Plan (1) Acute hepatic encephalopathy: Plan 54-year-old homeless person with known history of alcoholic cirrhosis, history of GAVE/esophageal varices, portal hypertension, chronic hyponatremia, chronic anemia, thrombocytopenia and diastolic heart failure apparently was found by the neighbor/passerby [place]. He was brought in 05/18/25. Acute hepatic encephalopathy Noncompliant Alcoholic Hepatic cirrhosis, GAVE with ascites : S/P paracentesis 05/18--2 L of yellow cloudy fluid was removed --CT head:No acute intracranial hemorrhage at present. Soft tissue swelling involving bilateral frontozygomatic regions, with predominant soft tissue swelling in the right parietotemporal region and underlying loculated scalp fluid collection. -- Negative toxicology screen -- Ammonia level 121>>60 --Has been getting paracentesis almost weekly per patient, on Mondays. --Continue lactulose w/ goal of 3-5 bowel movements a day, added rifaximin this adm/continue. Mental status back to baseline Continue PT OT Being diuresed, appreciate nephro help. FR 1500, aldactone on hold due to hyperkalemia. s/p paracentesis 05/26, 5L out, s/p iv albumin after para Shock, Likely hypovolemic, rule out septic Acute blood loss anemia S/P PRBCs x3, also has ho anemia of chronic disease and thrombocytopenia iso liver dz. s/p icu care, pressors and iv albumin. random cortisol 15.52 --ECHO: Left ventricle systolic function is normal. EF 60 to 65%. Grade 1 diastolic dysfunction. Mild mitral, tricuspid regurgitation. Mild aortic root dilatation. --Blood, pleural fluid and ascitic fluid cultures: Negative -- Peritoneal WBC 71 Now off of pressors, BP wnl Empirically on IV cefepime, Flagyl>> transition to Augmentin, complicated course on 05/25. Continue midodrine--titrate down as able, decrease to 12.5 mg tid today Monitor HnH closely , transfuse as needed. Hb today 7.0, will transfuse 1 unit prbc f/u 40 mg iv lasix. Hypokalemia: Replete and monitor, now hyperkalemia noted as of 05/24, hold aldactone, administer low K diet, see below Acute rhabdomyolysis: Secondary to fall. CK 1904>760, s/p iv fluids. Monitor Fall Right hemothorax S/P thoracentesis Multiple rib fractures (7, 8, 9) Right middle lobe lung collapse Left clavicle fracture--chronic Chronic nasal fractures Generalized weakness: Secondary to fall --CT Chest:New interval development of fractures of the right seventh to ninth ribs with overlying soft tissue swelling. New interval development of mild to moderate right-sided pleural effusion. New interval development of the collapse of the right middle lobe. Interval reduction in the volume of the left-sided pleural effusion with minimal effusion at present. Fracture of the medial end of the left clavicle is again noted, with interval progression of the surrounding periosteal reaction. --Facial CT:Soft tissue swelling involving the entire maxillofacial region with subcutaneous fat stranding and predominant soft tissue swelling in the right parietotemporal region and underlying loculated scalp fluid collection. Recommended clinical correlation. Old fractures or prominent nasal junctions of the nasal bone on both sides, also seen on the prior CT head study. -- Appreciate critical care and pulm help PT OT evaluate as able Will need rehab placement Incentive spirometry. compliance encouraged. Acute kidney injury on CKD IV Possible hepatorenal syndrome Hyperkalemia, hyponatremia Volume overload iso above, echo as above appreciate nephro assistance. on aldactone 200 mg qd and lasix 80 mg qd. K getting lower, Na improving still w/ significant vol overload on exam s/p 5 d octreotide ayanna DVT Px: SCDs for now--Re: Hemothorax, anemia CODE STATUS: Full code Disposition: Homeless, Case management to help with discharge planning, will get paracentesis today. Admission and Anticipated Discharge Date Admission Date: May 18, 2025 Subjective Patient was seen and examined at bedside. Patient was lying in bed, on room air, NAD, resting comfortably. Patient reports eating okay and moving bowels- 3 yesterday. Pt denies dizzines, sob, chest pain. Physical Exam Physical Exam: General Appearance:Moderately built and nourished, no apparent distress, +Chronic ill appearing Head: normocephalic, +traumatic , +R facial abrasion Eyes: normal inspection, EOMI Neck: supple, Trachea midline Respiratory/Chest: Decreased breath sounds, CTA, +mild tender No accessory muscle use Cardiovascular: S1, S2, No murmur Abdomen/GI:Soft, Non tender, Bowel sounds present Extremities/Musculoskeletal:normal inspection, 2-3+ B/L LE edema Neurologic/Psych:AAOX3, grossly no focal neurological deficits Skin: normal color, warm,+ ecchymosis, excoriations on extremities Results & Data Results & Data Vital Signs (Past 12 Hours) Vital Signs Temp Pulse Pulse Resp BP Pulse Ox O2 Del Method 05/27/25 14:59 36.9 C 67 18 118/67 91 Room Air 05/27/25 11:37 36.6 C 70 18 99/44 L 92 Room Air 05/27/25 07:46 37.0 C 68 16 92/49 L 93 Room Air 05/27/25 04:00 36.7 C 68 18 114/61 93 Room Air
[2025-05-27] MEDS: FUROSEMIDE 40 MG/4 ML VIAL IV ONE (21:04)
[2025-05-28 08:39] LABS: Hematocrit (blood only) 26.6 % (42.0-52.0); Hemoglobin 8.8 g/dl (14.0-18.0); Mean Corpuscular Hemoglobin 29.9 pg (25.0-34.0); Mean Corpuscular Volume 90.5 fL (80.0-100.0); Platelet Count 228 K/uL (130-400); RDW Standard Deviation 66.4 fL (36.4-46.3); Red Blood Count 2.94 M/uL (4.70-6.10); White Blood Count 7.26 K/ul (4.8-10.8)
[2025-05-28 09:08] LABS: Anion Gap 6.0 (3-11); Blood Urea Nitrogen 45.0 mg/dl (6-23); Calcium 8.1 mg/dl (8.6-10.3); Carbon Dioxide 26.0 mmol/L (21-32); Chloride 101.0 mmol/L (98-107); Creatinine Clr Calc Pharmacy 67.4 ml/min; Glucose 78.0 mg/dl (70-99(Fasting)); Magnesium 1.7 mg/dl (1.7-2.4); Potassium 4.0 mmol/L (3.5-5.1); Sodium 133.0 mmol/L (136-145)
[2025-05-28] MEDS: FUROSEMIDE 80 MG TAB PO SCH (09:36)
[2025-05-28 11:01] VITALS: RESP 20; TEMP 97.9; O2SAT 91
--- NOTE | 2025-05-28 11:37 | Nephrology Progress Note ---
Date of Service May 28, 2025 Assessment & Plan (1) GRACIELA (acute kidney injury): Plan: hard to pinpoint baseline as is typical for ESLD patients. very severe Liver Dz so partly has abnormal Creat from liver Disease. Also had Rhabdo, Hypovolemia etc on Admission. Creat is stable in the mid ones today. Status post 5L paracentesis on 05/26 and on high dose diuretics; did have albumin. hgb hanging mid 7's, up to 8.8 today after packed red cells yesterday. He is status post 4 units packed red cells this admission. He is high risk for readmission. Urged him to stay or barring that to keep outpatient appointments. Significant history of noncompliance with outpatient recommendations apart from paracenteses. 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 Leonard in 2 to 3 weeks [facility] Care coordinated repeatedly by [employer] w/ Dr Rodriguez regarding discharge disposition, recommended medications, optimal and most probable follow-up plans; we are in agreement. (2) Hyponatremia: Plan: Sec to Liver Cirrhosis mediated Hypervolemia causing Hypervolemic Hyponatremia. na did go up slightly after iv lasix started. >resuming cirrhosis diuretic regimen Cannot raise his na unless we get some diuresis. Salt tab and urea are not recommended in his case. continue fluid limit 1.5 L max (3) Hyperkalemia: Plan: On adx was low then climbed to 5.8, down to 4.3 today resuming aldactone >> monitor K Hold off K supplements. Lasix and Aldactone as above Admission and Anticipated Discharge Date Admission Date: May 18, 2025 Subjective No interval events. Is adamant he must discharge today. Denies shortness of breath. Ongoing edema which he says is manageable. No new or worrisome voiding concerns. Tolerating p.o. Review of Systems 2 Review of Systems: All systems reviewed & are unremarkable except as noted in Subjective Physical Exam 2 Constitutional: well developed, + cachectic, + frail appearing and cooperative; no acute distress Eyes: EOM intact bilaterally ENMT: Mouth: + dry oral mucous membranes Respiratory: normal respiratory effort Auscultation: + diminished lung sounds Cardiovascular: Rate/Rhythm: regular rate and regular rhythm Extremities: + edema (2+) Gastrointestinal (Abdomen): Inspection/Auscultation: normal bowel sounds P ercussion/Palpation: abdomen soft; abdomen nontender Musculoskeletal: Extremities: strength 5/5 throughout Skin: no rashes, warm and dry Results & Data Vital Signs (Past 12 Hours) Vital Signs Temp Pulse Pulse Resp BP Pulse Ox O2 Del Method 05/28/25 11:19 Room Air 05/28/25 11:00 36.6 C 67 20 118/68 91 Room Air 05/28/25 07:40 36.5 C 59 L 18 105/61 93 Room Air 05/28/25 02:45 36.7 C 62 18 113/64 95 Room Air Laboratory Results 05/28/25 07:41 05/28/25 07:41
[2025-05-28 12:13] VITALS: BP 111/68; PULSE 62
--- NOTE | 2025-05-28 12:15 | Discharge Summary ---
Date of Service May 28, 2025 Admission HPI Per Admitting Provider He is a 54-year-old homeless person with known history of alcoholic cirrhosis, history of GAVE/esophageal varices, portal hypertension, chronic hyponatremia, chronic anemia, thrombocytopenia and diastolic heart failure apparently was found by the neighbor/passerby in the [place]. He has been alert and awake in the emergency room and mentioned that he had back pain and fell in the [place] and remained there for 3 days. He has not been taking any medications and he has not been to any doctor following discharge from the hospital on 03/10/2025. He does not have any place to leave and he sleeps whenever he ends with the day. He has not meeting any medications and has not been drinking. Denies any fever and/or chills and denies any problem with urine and bowel habit. His only complaint in the ER was back pain and extremely weak and tired and wanted to have his oxycodone. significant findings in the ER when noted to be low hemoglobin, High Ammonia, low potassium, high CPK, multiple rib fractures with hemothorax and old findings as as mentioned in the imaging studies and he was admitted to telemetry unit for continuation of care. Admission Exam Per Admitting Provider Physical Exam: Lying in bed with extreme lethargy, closed eyes and minimally communicative Constitutional: + ill appearing and average body habitus Eyes: Closed with right eyelids sticking together ENMT: external ear and nose normal, oropharynx normal Neck: trachea midline, no thyromegaly Respiratory: + respiratory distress ( minimal respira tory distress) Auscultation: + diminished lung sounds and + crackles ( bibasilar crackles) Cardiovascular: Rate/Rhythm: regular rate and regular rhythm; not tachycardic Heart Sounds: normal S1 and normal S2; no murmur Extremities: + edema ( 1-2+ edema bilateral) Gastrointestinal (Abdomen): Inspection/Auscultation: + abdomen distended ( minimally distended) and normal bowel sounds Percussion/Palpation: abdomen soft; abdomen nontender Musculoskeletal: no acute arthritis involving any of the joint Skin: + ecchymosis ( ecchymosis noted in the e xtremities mostly in right upper) and + excoriations ( skin tears noted in right groin, right and left knees) Neurologic: Alert and awake, minimally communicative. Moves all extremities with profound weakness Lymphatic: no cervical or axillary lymphadenopathy Principal Diagnosis Acute hepatic encephalopathy Noncompliant Alcoholic Hepatic cirrhosis, GAVE with ascites Shock, Likely hypovolemic, rule out septic Acute blood loss anemia Acute rhabdomyolysis Fall Right hemothorax S/P thoracentesis Multiple rib fractures (7, 8, 9) Right middle lobe lung collapse Left clavicle fracture--chronic Chronic nasal fractures Generalized weakness: Acute kidney injury on CKD IV Possible hepatorenal syndrome Hyperkalemia, hyponatremia Volume overload Discharge Exam General Appearance:Moderately built and nourished, no apparent distress, +Chronic ill appearing Head: normocephalic, +traumatic , +R facial abrasion , healing healthy Eyes: normal inspection, EOMI Neck: supple, Trachea midline Respiratory/Chest: Decreased breath sounds, CTA, +mild tender No accessory muscle use Cardiovascular: S1, S2, No murmur Abdomen/GI:Soft, Non tender, Bowel sounds present Extremities/Musculoskeletal:normal inspection, 2+ B/L LE edema Neurologic/Psych:AAOX3, grossly no focal neurological deficits Skin: normal color, warm,+ ecchymosis, excoriations on extremities Discharge Data Allergies Allergy/AdvReac Type Severity Reaction Status Date / Time Penicillins Allergy Unknown pt unsure Verified 03/09/25 18:12 of reaction Consultations 05/18/25 07:07 ED Decision to Admit Stat 05/18/25 09:12 Consult Pulmonology Routine 05/24/25 17:45 Consult Nephrology Routine Ordered Studies 05/18/25 03:01 CT head/brain wo con Stat CT lumbar spine w con Stat CT thoracic spine w con Stat 05/18/25 03:02 CT abd pelvis IV con only Stat CT cervical spine wo con Stat CT chest diagnostic w con Stat CT facial bones wo con Stat 05/26/25 07:00 IR paracentesis abd w/img US Routine Hospital Course (1) Acute hepatic encephalopathy: Plan 54-year-old homeless person with known history of alcoholic cirrhosis, history of GAVE/esophageal varices, portal hypertension, chronic hyponatremia, chronic anemia, thrombocytopenia and diastolic heart failure apparently was found by the neighbor/passerby in the [place]. He was brought in 05/18/25. Acute hepatic encephalopathy Noncompliant Alcoholic Hepatic cirrhosis, GAVE with ascites : S/P paracentesis 05/18--2 L of yellow cloudy fluid was removed --CT head:No acute intracranial hemorrhage at present. Soft tissue swelling involving bilateral frontozygomatic regions, with predominant soft tissue swelling in the right parietotemporal region and underlying loculated scalp fluid collection. -- Negative toxicology screen -- Ammonia level 121>>60 --Has been getting paracentesis almost weekly per patient, on Mondays. Advised to maintain compliance. --Continue lactulose w/ goal of 3-5 bowel movements a day, added rifaximin this adm/continue. Status post paracentesis 05/26, 5 L fluid out, status post IV albumin after paracentesis. Patient advised to maintain compliance with Aldactone and Lasix and fluid rest riction of 1500 mL a day. Patient advised to follow-up closely with PCP and nephrology upon discharge. Patient advised to follow-up with hepatology upon discharge. Shock, Likely hypovolemic, rule out septic Acute blood loss anemia S/P PRBCs x3, also has ho anemia of chronic disease and thrombocytopenia iso liver dz. s/p icu care, pressors and iv albumin. random cortisol 15.52 --ECHO: Left ventricle systolic function is normal. EF 60 to 65%. Grade 1 diastolic dysfunction. Mild mitral, tricuspid regurgitation. Mild aortic root dilatation. --Blood, pleural fluid and ascitic fluid cultures: Negative -- Peritoneal WBC 71 Now off of pressors, BP wnl Empirically on IV cefepime, Flagyl>> transition to Augmentin, complicated course on 05/25. Continue midodrine--titrate down as able, decrease to 12.5 mg tid today Hemoglobin today 8.8. Status post 1 unit PRBC on 05/27 Discussed with patient to get chest x-ray to eval for hemothorax, patient stated that he would like to go home now or else he will leave A and does not want chest x-ray. Hypokalemia: Resolved Acute rhabdomyolysis: resolved Fall Right hemothorax S/P thoracentesis Multiple rib fractures (7, 8, 9) Right middle lobe lung collapse Left clavicle fracture--chronic Chronic nasal fractures Generalized weakness: Secondary to fall --CT Chest:New interval development of fractures of the right seventh to ninth ribs with overlying soft tissue swelling. New interval development of mild to moderate right-sided pleural effusion. New interval development of the collapse of the right middle lobe. Interval reduction in the volume of the left-sided pleural effusion with minimal effusion at present. Fracture of the medial end of the left clavicle is again noted, with interval progression of the surrounding periosteal reaction. --Facial CT:Soft tissue swelling involving the entire maxillofacial region with subcutaneous fat stranding and predominant soft tissue swelling in the right parietotemporal region and underlying loculated scalp fluid collection. Recommended clinical correlation. Old fractures or prominent nasal junctions of the nasal bone on both sides, also seen on the prior CT head study. -- Appreciate critical care and pulm help PT OT evaluate as able patient would like to go home. Incentive spirometry. compliance encouraged. Acute kidney injury on CKD IV Possible hepatorenal syndrome Hyperkalemia, hyponatremia Volume overload iso above, echo as above appreciate nephro assistance. on aldactone 200 mg qd and lasix 80 mg qd. K getting lower, Na improving still w/ significant vol overload on exam s/p 5 d octreotide ayanna Patient to follow-up with PCP and nephrology closely upon discharge. DVT Px: SCDs for now--Re: Hemothorax, anemia CODE STATUS: Full code Patient is being discharged to home with following instructions at the point of discharge: Follow-up with your primary care physician within a week time and likely you will need labs CBC/CMP/magnesium/phosphorus. You will need repeat chest x-ray within a week time to follow-up on your Rt hemothorax, coordinate with your PCP office to set up the test Your diuretics dose has been optimized, now you are on Lasix 80 mg daily and Aldactone 200 mg daily. Continue to take your lactulose with a goal of 3-5 bowel movements a day. Follow-up with nephrology in 2 weeks time upon discharge. Follow-up with hepatology in a month time upon discharge, coordinate with your PCP office to set up the referral. You will need weekly labs [CBC and BMP] for 3 weeks, coordinate with your PCP office to set up the test. Avoid NSAIDs. Maintain your weekly paracentesis schedule. Take your medications as prescribed. Please make sure that you are able to get your medications today by calling your pharmacy before you leave the hospital so that your treatment continuity is not broken. [facility] Attestation I certify that this patient is under my care and that I, or a physicians instructional support assistant working with me, had a face to-face encounter that meets the [facility] tant-mr-herg encounter requirements with this patient. The encounter with the patient was in whole, or in part, for the following medical condition, which is the primary reason for home health care (list medical condition): I certify that, based on my findings, the following services are medically necessary home health services: My clinical findings support the need for the above services because: Further, I certify that my clinical findings support that this patient is homebound (i.e. absences from home require considerable and taxing effort and are for medical reasons or spiritism services or infrequently or of short duration when for other reasons) because: Certification for Home Health Services: Based on the above findings, I certify that this patient is confined to the home and needs intermittent mcc care, physical therapy and/or speech therapy or continues to need occupational therapy. The patient is under my care, and I have initiated the establishment of the plan of care. This patient will be followed by a physician who will periodically review the plan of care. Total Time Total Time Spent Total Time Spent (In Minutes): 45 Discharge Plan Discharge Items Patient Disposition: Home - Self-Care Reason For Visit: FALL WITH MULTIPLE #, ANEMIA Discharge Diagnosis: Acute hepatic encephalopathy Noncompliant Alcoholic Hepatic cirrhosis, GAVE with ascites Shock, Likely hypovolemic, rule out septic Acute blood loss anemia Acute rhabdomyolysis Fall Right hemothorax S/P thoracentesis Multiple rib fractures (7, 8, 9) Right middle lobe lung collapse Left clavicle fracture--chronic Chronic nasal fractures Generalized weakness: Acute kidney injury on CKD IV Possible hepatorenal syndrome Hyperkalemia, hyponatremia Volume overload Condition on Discharge: Serious Activity: Resume your previous activity Non-emergency contact: Primary Care Provider Call non-emergency contact if: you have any medication questions Follow-up/Referrals: Rina Neil PA-C [Primary Care Provider] - (Date & Time 06/03/2025 1:00 PM Provider: Rina Neil PA-C [facility] ) Diet: Regular Fluids: 1500ml (6 cups) Diet Texture: Easy to Chew Addtl Attending Provider Instructions: Follow-up with your primary care physician within a week time and likely you will need labs CBC/CMP/magnesium/phosphorus. You will need repeat chest x-ray within a week time to follow-up on your Rt hemothorax, coordinate with your PCP office to set up the test Your diuretics dose has been optimized, now you are on Lasix 80 mg daily and Aldactone 200 mg daily. Continue to take your lactulose with a goal of 3-5 bowel movements a day. Follow-up with nephrology in 2 weeks time upon discharge. Follow-up with hepatology in a month time upon discharge, coordinate with your PCP office to set up the referral. You will need weekly labs [CBC and BMP] for 3 weeks, coordinate with your PCP office to set up the test. Avoid NSAIDs. Maintain your weekly paracentesis schedule. Take your medications as prescribed. Please make sure that you are able to get your medications today by calling your pharmacy before you leave the hospital so that your treatment continuity is not broken. Pending Studies at Discharge: No Stand-Alone Forms: My [facility], Smoking Cessation Medications and DC Order Prescriptions: New Xifaxan 550 mg Tablet 550 mg PO Q12 Qty: 60 0RF midodrine 5 mg tablet 12.5 mg PO TID Qty: 225 0RF Rx Instructions: do not give last dose of day after 6PM or within 4 hrs of bedtime spironolactone 100 mg Tablet 200 mg PO QAM 30 Days Qty: 60 0RF nicotine [Nicoderm CQ] 21 mg/24 hr Patch 24 Hour 1 patch transdermal QAM Qty: 28 0RF oxycodone 5 mg Tablet 5 mg PO BID PRN (Reason: pain) 5 Days Qty: 10 0RF furosemide 80 mg Tablet 80 mg PO QAM Qty: 60 0RF lactulose 10 gram/15 mL Solution 20 g PO TID Qty: 3000 0RF Continued pantoprazole 40 mg tablet,delayed release (DR/EC) 40 mg PO BID Rx Instructions: HAS NOT FILLED SINCE JANUARY 2025 ferrous sulfate [FeroSul] 325 mg (65 mg iron) tablet 325 mg PO DAILY Rx Instructions: HAS NOT FILLED SINCE JANUARY 2025 Discontinued spironolactone 100 mg tablet 100 mg PO QAM Rx Instructions: HAS NOT FILLED SINCE JANUARY 2025 Discharge Orders: Discharge Order (Routine); Ordered 05/28/25 Ordered By: Ha Rodriguez Admission Data Admit Date/Time: 05/18/25 10:55 Attending Provider: Ha Rodriguez Admit Provider: Davonte Perez Primary Care Provider: Rina Neil Other Providers: Juventino Haftield; Diane Haas Roshan
--- NOTE | 2025-05-29 07:45 | Coding Query ---
CODING QUERY To promote full compliance with coding requirements relating to patient care, provider participation is requested in all cases of insurance claims specialist uncertainty. Please assist us with the question(s) below: Coding Question(s): Please specify below, in your clinical opinion, the diagnosis most responsible for occasioning the inpatient admission: ( ) Possible Right hemothorax is the diagnosis most responsible for occasioning the admission - Please clarify below, due to conflicting documentation on the 05/18 Critical Care Consultation of, "Hemothorax has been ruled out", and the 05/19 & 05/20 Critical Care Progress Notes document, "Pleural effusion (hemothorax ruled out)", however the Hospitalist Progress Notes and Discharge Summary document Right Hemothorax: ( ) Possible Right Hemothorax was determined Not Ruled Out ( x ) Possible Right Hemothorax was Ruled Out and there is another diagnosis that is most responsible for occasioning admission. Please specify the diagnosis most responsible: pleural effusion iso decompensated cirrhosis and ascites ( ) Multiple Rib Fractures ( ) Possible Hepatorenal Syndrome ( ) Shock, Likely hypovolemic ( ) Shock, Rule out Septic. Please specify further, in your clinical opinion, the most likely source/cause of possible septic shock: ( ) Acute Hepatic Encephalopathy ( ) Other: Please Specify Physician's Response(s): Thank you Ladan Gomes Principal Diagnosis: "that condition established after study, to be chiefly responsible for occasioning the admission of the patient to the hospital for care." Co-Existing Principal Diagnosis: "when two or more diagnoses equally meet the criteria for principal diagnosis as determined by the circumstances of admission, diagnostic work up, and/or therapy provided, and the Alphabetic Index, Tabular List, or another coding guideline does not provide sequencing direction, any one of the diagnoses may be sequenced first." "When the physician has documented what appears to be a current diagnosis in the body of the record, but has not included the diagnosis in the final diagnostic statement, the physician should be asked whether the diagnosis should be added." (Source Coding Clinic 2 QTR90. p3-4) SONIA
== END 2025-05-28 17:00 | disposition home or self-care (01) | DRG 432 ==
LOC: ED 02:32 → 1E 10:55 → SUATTDRO 10:55 → 1E 11:11 → 2N 05-21 15:33

== ENCOUNTER 2025-06-13 10:58 | Observation (INO) ==
[2025-06-13 12:41] LABS: Hematocrit (blood only) 24.3 % (42.0-52.0); Hemoglobin 8.0 g/dL (14.0-18.0); Immature Granulocytes # (auto) 0.03 K/uL (0.01-0.20); Immature Granulocytes % (auto) 0.4 %; Mean Corpuscular Hemoglobin 30.3 pg (25.0-34.0); Mean Corpuscular Volume 92.0 fL (80.0-100.0); Platelet Count 229 K/uL (130-400); RDW Standard Deviation 68.1 fL (36.4-46.3); Red Blood Count 2.64 M/uL (4.70-6.10); White Blood Count 7.67 K/ul (4.8-10.8)
[2025-06-13] MEDS: CEFEPIME 2000MG 2,000 MG/20 ML SYR IV STA (12:59)
[2025-06-13 13:01] LABS: Alanine Aminotransferase 8.0 U/L (7-52); Albumin Globulin Ratio 0.6 (0.9-2); Albumin Level 2.6 gm/dl (3.4-5.0); Alkaline Phosphatase 119.0 U/L (34-104); Anion Gap 5.0 (3-11); Bilirubin,Total 0.9 mg/dl (0.2-1.0); Blood Urea Nitrogen 31.0 mg/dl (6-23); Calcium 8.1 mg/dl (8.6-10.3); Carbon Dioxide 23.0 mmol/L (21-32); Chloride 103.0 mmol/L (98-107); Creatinine Clr Calc Pharmacy 94.3 ml/min; Globulin 4.1 gm/dl (2.5-4.0); Glucose 108.0 mg/dl (70-99(Fasting)); Potassium 4.3 mmol/L (3.5-5.1); Sodium 131.0 mmol/L (136-145); Total Protein 6.7 gm/dl (6.0-8.3)
[2025-06-13] MEDS ORDERED: VANCOMYCIN CONSULT ACTIVE PRN ×2 (13:01→16:39)
[2025-06-13 13:02] LABS: Acanthocytes 1+; Anisocytosis Present
[2025-06-13 13:15] LABS: INR 1.2 (0.9-1.1); Partial Thromboplastin Time 33 Seconds (21-31); Prothrombin Time 13.0 Seconds (9.0-12.0)
[2025-06-13] MEDS: OPTIRAY 320 100ml IV ONE (13:19)
--- NOTE | 2025-06-13 13:23 | XRay Report ---
XR knee LT 3V CLINICAL HISTORY: knee pain COMPARISON: None FINDINGS: There is mild osteoarthritis. No fracture or dislocation. No evidence of osteomyelitis. Th ere is a mild joint effusion. IMPRESSION: No fracture seen. ACT 112: Negative or not required by law. Electronically signed by: John Titus M.D. 06/13/2025 1:22 PM
[2025-06-13] MEDS: VANCOMYCIN HCL 2,500 MG in SODIUM CHLORIDE 0.9% 500 ML IV ONE (13:41)
--- NOTE | 2025-06-13 13:45 | CT Scan Report ---
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 Clinical concern for acute osteomyelitis. COMPARISON: Knee radiographs of same day TECHNIQUE: Multiple axial CT images of the left knee were obtained with IV contrast. A dose lowering technique was used consistent with the principals of NEDRA. FINDINGS: There is diffuse extensive subcutaneous edema. No soft tissue mass or drainable fluid collection. The re is a small joint effusion of the knee. Superficial venous varicosities. 2.5 x 2.1 cm cutaneous ulc er of the anteromedial knee on image 175 series 3. T there is ill-defined focal subcutaneous fluid de ep to the ulcer extending towards the medial patella on image 188 series 3 without well-defined norma ns and mild peripheral enhancement. There is diffuse dermal thickening. Mild marginal spurring of the knee. Demineralized appearance of the bones. No acute fracture, disloca tion or osseous erosion. Moderate medial joint space narrowing. Mild subchondral sclerosis of the med ial femoral condyle is likely secondary to the arthritis. Avascular necrosis considered less likely. IMPRESSION: 1. No CT evidence of acute osteomyelitis. 2. Diffuse subcutaneous edema suggestive of cellulitis, venous stasis versus lymphedema. 3. 2.5 cm cutaneous ulcer of the anteromedial knee with ill-defined phlegmon deep to the ulcer. No di screte abscess identified at this time. 4. Small joint effusion of the knee. ACT 112: Negative or not required by law. The above report was generated using voice recognition software. It may contain grammatical, syntax o r spelling errors. Electronically signed by: Colton Arango M.D. 06/13/2025 1:44 PM
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
[2025-06-13] MEDS ORDERED: ALBUTEROL 0.083% NEBU SOLN 3 ML VIAL NEB PRN (16:39)
[2025-06-13] MEDS ORDERED: ONDANSETRON INJ 2 MG/ML 2 ML VIAL IV PRN (16:39)
[2025-06-13] MEDS ORDERED: POLYETHYLENE (MIRALAX) 17 GM PACK PO PRN (16:39)
[2025-06-13] MEDS ORDERED: MAGNESIUM HYDROXIDE SUSP 30 ML UDC PO PRN (16:39)
[2025-06-13] MEDS: NICOTINE 14 MG/24 HR PATCH TD SCH (17:11)
--- NOTE | 2025-06-13 17:14 | Pharmacy Report ---
Pharmacy PK ABX Note - Date of Service June 13, 2025 - Assessment and Plan Assessment 54 year old M receiving vancomycin and cefepime for treatment of a knee wound/cellulitis. * Pt is afebrile, renal function is at baseline (SCr= 1.03), Wbc not elevated, and procal normal (0.16) * Blood cultures x 2 from 06/13 are pending. Day # 1 of antimicrobial therapy. Plan Vancomycin * Loading dose: 2500 mg IV x 1 * Maintenance dose: 1250 mg IV every 12 hours * Regimen is predicted to achieve target AUC/LOKESH of 400-600 mg/L.hr * Random level ordered for: 06/15 at 0900. Pharmacy will continue to follow and will adjust dose/frequency as necessary. Thank you. Pharmacy has transitioned to AUC monitoring for vancomycin. AUC/LOKESH is the preferred PK/PD target and is associated with decreased risk of nephrotoxicity compared to traditional trough targets.
[2025-06-13] MEDS: FUROSEMIDE 40 MG/4 ML VIAL IV ONE ×2 (18:35→18:56)
[2025-06-13] MEDS: CEFEPIME 2000MG 2,000 MG/20 ML SYR IV SCH (19:48)
[2025-06-13] MEDS: LACTULOSE SYRUP 20 GM/30 ML UDC PO SCH (19:48)
[2025-06-14] MEDS ORDERED: VANCOMYCIN HCL 1,500 MG in SODIUM CHLORIDE 0.9% 500 ML IV SCH
[2025-06-14] MEDS: ACETAMINOPHEN 325 MG TAB PO PRN (00:37)
[2025-06-14] MEDS: VANCOMYCIN HCL 1,250 MG in SODIUM CHLORIDE 0.9% 250 ML IV SCH (00:37)
[2025-06-14 06:33] LABS: Hematocrit (blood only) 20.6 % (42.0-52.0); Hemoglobin 6.9 g/dL (14.0-18.0); Mean Corpuscular Hemoglobin 30.4 pg (25.0-34.0); Mean Corpuscular Volume 90.7 fL (80.0-100.0); Platelet Count 191 K/uL (130-400); RDW Standard Deviation 67.7 fL (36.4-46.3); Red Blood Count 2.27 M/uL (4.70-6.10); White Blood Count 7.22 K/ul (4.8-10.8)
--- NOTE | 2025-06-14 06:44 | Communication Note ---
Date of Service: June 14, 2025 Made aware by RN of a.m. hemoglobin drop to 6.9 from 8 yesterday. No overt bleed as per RN. AP Progressive anemia Recheck H&H after 4 hours Defer decision for blood transfusion to a.m. provider.
[2025-06-14 06:52] LABS: Alanine Aminotransferase 7.0 U/L (7-52); Albumin Globulin Ratio 0.6 (0.9-2); Albumin Level 2.2 gm/dl (3.4-5.0); Alkaline Phosphatase 90.0 U/L (34-104); Anion Gap 5.0 (3-11); Bilirubin,Total 0.8 mg/dl (0.2-1.0); Blood Urea Nitrogen 32.0 mg/dl (6-23); Calcium 7.5 mg/dl (8.6-10.3); Carbon Dioxide 20.0 mmol/L (21-32); Chloride 106.0 mmol/L (98-107); Creatinine Clr Calc Pharmacy 72.4 ml/min; Globulin 3.5 gm/dl (2.5-4.0); Glucose 109.0 mg/dl (70-99(Fasting)); Potassium 4.2 mmol/L (3.5-5.1); Sodium 131.0 mmol/L (136-145); Total Protein 5.7 gm/dl (6.0-8.3)
[2025-06-14] MEDS ORDERED: FUROSEMIDE 40 MG/4 ML VIAL IV SCH (09:00)
--- NOTE | 2025-06-14 09:19 | Hospitalist Progress Note ---
Date of Service June 14, 2025 Assessment & Plan (1) Open knee wound: (2) Cellulitis, leg: Plan: This is a 54-year-old male with past medical history significant for alcoholic cirrhosis and ascites with weekly paracentesis, esophageal/duodenal varices, alcohol dependence in remission, portal hypertensive gastropathy, GAVE, thrombocytopenia, COPD, CKD stage IV, chronic anemia, chronic hyponatremia, tobacco use disorder, and others listed below presented to ER with c/o left knee pain. #LLE cellulitis -CT without OM but showing diffuse edema, possible cellulitis and a 2.5 cm cutaneous ulcer of the anteromedial knee with ill-defined phlegmon deep to the ulcer. No discrete abscess identified at this time. -Prior wound culture grew PSA and MSSA -Clinically improving -No fever or leukocytosis Plan -Ortho was consulted to evaluate the ulcer, appreciate input -For now, continue empiric coverage with vanc and cefepime -If continued improvement and neg blood cultures, deescalate to ancef and cipro tomorrow -Follow renal function closely while on vanc -Follow vanc levels #Decompensated Alcoholic liver cirrhosis with Ascites -Gets paracentesis weekly. Last on 06/12 with 7L removed -No asterixis. No hepatic encephalopathy Plan -Cr fabio slightly today. Back off lasix and resume home 80mg daily -Continue spironolactone -Lactulose 3 times daily -Xifaxan -Midodrine 10 mg 3 times daily as needed hypotension #Chronic Anemia #Known esophageal/duodenal varices -Baseline Hgb around 8 -Hgb today 6.9 -No evidence of acute blood loss -Rechecking Hgb at 10 AM #Chronic hyponatremia Na: 131 and stable #Chronic hypocalcemia Ca: 8.1 #CKD IV -Monitor renal function closely -Avoid nephrotoxic agents if possible #History of prolonged QTc Avoid QT prolonging Drugs #History of COPD Not using inhalers Nebs as needed #History of alcohol use currently abstaining #Tobacco use Reports cut back cigarettes Nicotine patch DVT Prophylaxis SCDs I spent a total of 58 minutes coordinating, documenting, and providing care for this patient excluding time spent in the performance of separately billed services. This included personally reviewing all current laboratories and imaging studies, medical reconciliation, outpatient chart review and discussion with specialists Admission and Anticipated Discharge Date Admission Date: June 13, 2025 Subjective Feeling much better today. Patient denies F/C, CP, palpitations, SOB, dyspnea, abd pain, N/V/D. still c/o chronic b/l LE edema Physical Exam Physical Exam: Vitals and labs reviewed General: chronically ill appearing. cachectic. NAD HEENT: EOMI, PERRLA Neck: Supple Cardiac: RRR no rubs gallops or murmurs Lungs: CTA no rhonchi wheezing or rales Abd: Distended. pos fluid wave. bs positive. NT : Deffered MSK: Full ROM. No obvious deformities Ext: 2+ b/l LE pitting edema Skin: Warm, Dry. neither leg has any significant erythema Neuro: AOx3 No focal deficits. Psych: Normal Mood Results & Data Results & Data Vital Signs (Past 12 Hours) Vital Signs Temp Pulse Pulse Resp BP Pulse Ox O2 Del Method 06/14/25 07:56 36.6 C 77 18 105/62 94 Room Air 06/14/25 05:55 82 06/14/25 02:21 37.3 C 89 18 121/66 92 Room Air 06/13/25 22:22 38 C H 98 H 18 111/53 L 92 Room Air 06/13/25 22:00 94 H Laboratory Results Abnormal lab results 06/13/25 06/14/25 Range/Units 12:20 05:50 RBC 2.64 L 2.27 L (4.70-6.10) M/uL Hgb 8.0 L 6.9 L* (14.0-18.0) g/dL Hct 24.3 L 20.6 L* (42.0-52.0) % RDW Std Deviation 68.1 H 67.7 H (36.4-46.3) fL RDW Coeff of Ham 20.4 H 20.1 H (11.5-14.5) % MPV 9.0 L 8.7 L (9.4-12.4) fL Lymph # (Auto) 0.79 L (1.20-3.40) K/uL Craven # (Auto) 0.70 H (0.11-0.59) K/uL Eos # (Auto) 1.35 H (0.00-0.50) K/uL ESR 35 H (0-20) mm/hr PT 13.0 H (9.0-12.0) Seconds INR 1.2 H (0.9-1.1) APTT 33 H (21-31) Seconds Sodium 131 L 131 L (136-145) mmol/L Carbon Dioxide 20 L (21-32) mmol/L BUN 31 H 32 H (6-23) mg/dl BUN/Creatinine Ratio 30.1 H 24.1 H (10-20) Glucose 108 H 109 H (70-99(Fasting)) mg/dl Calcium 8.1 L 7.5 L (8.6-10.3) mg/dl Alkaline Phosphatase 119 H (34-104) U/L C-Reactive Protein 3.61 H (0-0.5) mg/dl Total Protein 5.7 L (6.0-8.3) gm/dl Albumin 2.6 L 2.2 L (3.4-5.0) gm/dl Globulin 4.1 H (2.5-4.0) gm/dl Albumin/Globulin Ratio 0.6 L 0.6 L (0.9-2)
[2025-06-14] MEDS: SPIRONOLACTONE 100 MG TAB PO SCH (09:24)
[2025-06-14] MEDS: REMOVE NICODERM PATCH SCH (09:24)
--- NOTE | 2025-06-14 09:48 | Orthopedic Consultation ---
Date of Consultation June 14, 2025 Assessment & Plan (1) Homelessness: (2) Cellulitis, leg: Discussed diagnosis with the patient. He has no evidence of a septic left knee. He does however have cellulitis. Do not recommend aspiration of the knee as this has significant risk of introducing bacteria into the knee and causing him to get a septic joint. Recommend he continues antibiotics per the medicine team to treat his cellulitis. He can weight-bear as tolerated with a cane or walker. Recommend wound consult given his abrasions over the left knee and his chronic wound ulcer in the right knee. Recommend follow-up with plastic surgery regarding the wound on his right leg. Orthopedics will sign off. Please contact orthopedics with any questions. (3) Open knee wound: History of Present Illness Attending Physician: Juventino Hatfield, History of Present Illness This is a 54-year-old male with past medical history significant for alcoholic cirrhosis and ascites with weekly paracentesis, esophageal/duodenal varices, alcohol dependence in remission, portal hypertensive gastropathy, GAVE, thrombocytopenia, COPD, CKD stage IV, chronic anemia, chronic hyponatremia, tobacco use disorder, and others listed below presented to ER with c/o left knee pain. Per inpatient chart review recent [facility] hospitalization 05/18/2025-05/28/2025 for acute hepatic encephalopathy, shock - possible hypovolemia, acute blood loss anemia, received 3 units PRBC, right middle lobe lung collapse, right hemothorax s/p thoracentesis, multiple rib fractures, GRACIELA, rhabdomyolysis, required ICU and pressors. Empirically treated with IV cefepime, Flagyl and was transitioned to Augmentin and completed course on 05/25/25. Received octreotide. Per chart review patient was seen in [facility] ER overnight for episode of dizziness he had last night. Patient states since has eaten milk and cookies and denies any nausea or vomiting. Denies any further dizziness. States discharged and while awaiting for transportation this morning he went out to smoke cigarette and walked and had sudden onset pain to left knee aggravated with ROM. He presented back to ER for evaluation of left knee pain. He reports chronic wounds "that are bad" to bilateral knees. He is unable to state if worse than baseline. He states chronic BLE edema that he feels is better than before. He reports has been taking water pills but is unsure if he is taking Lasix daily and spironolactone and reports taking Lactulose however admits hasn't taken in past 2 days. Patient doesn't think that he is taking midodrine or rifaximin. He did have paracentesis completed yesterday and had 7L removed. He reports has been trying to follow fluid restrictions more closely and feels since that hasn't needed as much volume removed with paracentesis. He denies any known fever. Reports has been cold as he is homeless and out in the cold. Denies JUAREZ, CP, SOB, orthopnea, palpitations, cough, rhinorrhea, abdominal pain, paresthesias, other rashes, urinary symptoms. Orthopedics was consulted for evaluation of his left knee due to concern for septic arthritis. Patient was seen and examined on the floor. He has received IV antibiotics since his admission yesterday and reports that his knee is feeling much better today. He feels like he is able to walk on his leg although he has not been out of bed really since he got admitted. Denies numbness or tingling down the leg. He says he fell about 2 weeks ago because his legs gave out due to pain in his back and that this caused the abrasions over the anterior aspect of his left knee. Allergies Allergy/AdvReac Type Severity Reaction Status Date / Time Penicillins Allergy Unknown pt unsure Verified 05/30/25 20:54 of reaction Home Medications Medication Instructions Recorded Confirmed Type furosemide 80 mg tablet 80 mg PO QAM #60 tabs 05/28/25 06/13/25 Rx spironolactone 100 mg tablet 200 mg (2 x 100 mg) PO QAM 30 days 05/28/25 06/13/25 Rx #60 tabs lactulose 10 gram/15 mL oral 30 ml PO BID 06/13/25 06/13/25 History solution (Constulose) nicotine 21 mg/24 hr daily 1 patch topical QAM 06/13/25 06/13/25 History transdermal patch Patient History Medical History Hypervolemia Symptomatic anemia hospitalized [facility] 02/26/24 for issues related to this Poor historian main details obtained from [place] med record Alcoholic cirrhosis of liver with ascites hospitalized [facility] 02/26/24 for issues related to this Metabolic encephalopathy hospitalized [facility] 02/26/24 for issues related to this PAF (paroxysmal atrial fibrillation) pt denies; hospitalized [facility] 02/26/24, evaluated by tae garcia per cardio consult Esophagitis History of severe sepsis hospitalized 02/26/24, [facility] 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 per med record; hospitalized [facility] 02/26/24 for issues related to this Orthostatic hypotension "he thinks" COPD (chronic obstructive pulmonary disease) History of pneumonia 07/2023, 02/26/24, hospitalized [facility] 02/26/24 for issues related to this S/P abdominal paracentesis 03/21/2024, [facility] Current every day smoker Surgical History History of esophagogastroduodenoscopy (EGD) S/P cataract extraction right eye/left History of tonsillectomy History of hernia surgery infancy Family History Mother Stroke Diabetes Other Colorectal cancer Heart disease Social History Smoking Status: Current every day smoker Tobacco Type: Cigarettes Cigarettes Per Day: 1.5-2; Second Hand Exposure: No; Do You Dip or Chew Tobacco: No; Hx Alcohol Use: Yes Alcohol type: beer, wine and hard liquor Hx Substance Use: Yes Substance Use Type Other:: marijuana Preferred Language: Ethiopian Communication Ability: Effective Educational Programming Director Required: No Beliefs That Will Affect Care: None Current Living Situation: Alone Current Living Situation Comment: homeless Feels Safe at Home: Yes Assistive Devices: None Physical Exam Physical Exam: Resting comfortably in bed in no acute distress. Able to answer questions appropriately. Left lower extremity exam: Patient has a significant amount of edema in his left lower extremity from the hip down to the toes. There is some redness and cellulitis along the medial aspect of his thigh extending to the medial knee. He has tenderness to palpation in this region. Minimal tenderness along the medial and lateral joint lines. His active knee range of motion is from 5 to 95 degrees. Passive range of motion 0 to 105 degrees. Ligamentous exam is stable to varus and valgus stress test at 30 degrees, negative posterior drawer and Barby's test. He reports sensation intact moving light touch throughout his left lower extremity. Toes are warm and well-perfused. Difficult for me to palpate his pulses secondary to the edema in his foot. He has 3 small superficial abrasions over the anterior medial aspect of the knee. Mild serous drainage from these. On his right lower extremity he has approximately 3 x 2 cm area of full- thickness skin ulceration with yellow appearing tissue at the base. Foul- smelling. Patient's not able to describe what kind of wound care he is doing for this. Results & Data Vital Signs (Past 12 Hours) Vital Signs Temp Pulse Pulse Resp BP Pulse Ox O2 Del Method 06/14/25 07:56 36.6 C 77 18 105/62 94 Room Air 06/14/25 05:55 82 06/14/25 02:21 37.3 C 89 18 121/66 92 Room Air 06/13/25 22:22 38 C H 98 H 18 111/53 L 92 Room Air 06/13/25 22:00 94 H Diagnostic Findings Knee X-Ray 06/13/25 11:32 XR knee LT 3V CLINICAL HISTORY: knee pain COMPARISON: None FINDINGS: There is mild osteoarthritis. No fracture or dislocation. No evidence of osteomyelitis. There is a mild joint effusion. IMPRESSION: No fracture seen. ACT 112: Negative or not required by law. Electronically signed by: John Titus M.D. 06/13/2025 1:[address] 06/13/25 12:19 CT knee LT w con HISTORY: 54 years-old Male chronic wounds, concern for joint, abscess soft tissue swelling with chronic wound. Clinical concern for acute osteomyelitis. COMPARISON: Knee radiographs of same day TECHNIQUE: Multiple axial CT images of the left knee were obtained with IV contrast. A dose lowering technique was used consistent with the principals of ALARA. FINDINGS: There is diffuse extensive subcutaneous edema. No soft tissue mass or drainable fluid collection. There is a small joint effusion of the knee. Superficial venous varicosities. 2.5 x 2.1 cm cutaneous ulcer of the anteromedial knee on image 175 series 3. T there is ill-defined focal subcutaneous fluid deep to the ulcer extending towards the medial patella on image 188 series 3 without well- defined margins and mild peripheral enhancement. There is diffuse dermal thickening. Mild marginal spurring of the knee. Demineralized appearance of the bones. No acute fracture, dislocation or osseous erosion. Moderate medial joint space narrowing. Mild subchondral sclerosis of the medial femoral condyle is likely secondary to the arthritis. Avascular necrosis considered less likely. IMPRESSION: 1. No CT evidence of acute osteomyelitis. 2. Diffuse subcutaneous edema suggestive of cellulitis, venous stasis versus lymphedema. 3. 2.5 cm cutaneous ulcer of the anteromedial knee with ill-defined phlegmon deep to the ulcer. No discrete abscess identified at this time. 4. Small joint effusion of the knee. ACT 112: Negative or not required by law. The above report was generated using voice recognition software. It may contain grammatical, syntax or spelling errors. Electronically signed by: Colton Arango M.D. 06/13/2025 1:44 PM I independently interpreted a CT scan of his left knee. I agree with the radiologist that there is no evidence of osteomyelitis. There is minimal joint effusion. Does have evidence of cellulitis and lymphedema. No fractures. No evidence of osteomyelitis.
--- NOTE | 2025-06-14 09:50 | Pharmacy Report ---
Pharmacy PK ABX Note - Date of Service June 14, 2025 - Assessment and Plan Assessment 54 year old M receiving vancomycin and cefepime for treatment of a knee wound/cellulitis. * Fever of 38.0 06/13 2200 * WBC stable at 7.22 * SCr increased from 1.03 to 1.33 - estimated CrCl 72.4 mL/min Day # 2 of antimicrobial therapy. Plan Vancomycin * Loading dose: 2500 mg IV x 1 (given 06/13 @1630) * Previous maintenance dose: 1250 mg IV every 12 hours * Given increase in SCr - reduced dose to 1000 mg IV every 12 hours given previous regimen may be a bit supratherapeutic * Regimen is predicted to achieve target AUC/LOKESH of 400-600 mg/L.hr * Random level ordered for: 06/15 at 0900 Pharmacy will continue to follow and will adjust dose/frequency as necessary. Thank you. Pharmacy has transitioned to AUC monitoring for vancomycin. AUC/LOKESH is the preferred PK/PD target and is associated with decreased risk of nephrotoxicity compared to traditional trough targets.
[2025-06-14 10:33] LABS: Hematocrit (blood only) 21.0 % (42.0-52.0); Hemoglobin 7.0 g/dL (14.0-18.0)
[2025-06-14] MEDS: VANCOMYCIN HCL / NSS 1,000 MG/270 ML BAG IV SCH (13:32)
[2025-06-15 06:15] LABS: Anion Gap 4.0 (3-11); Blood Urea Nitrogen 32.0 mg/dl (6-23); Calcium 7.4 mg/dl (8.6-10.3); Carbon Dioxide 19.0 mmol/L (21-32); Chloride 106.0 mmol/L (98-107); Creatinine Clr Calc Pharmacy 70.2 ml/min; Glucose 86.0 mg/dl (70-99(Fasting)); Potassium 4.5 mmol/L (3.5-5.1); Sodium 129.0 mmol/L (136-145)
[2025-06-15 06:45] LABS: Hematocrit (blood only) 20.2 % (42.0-52.0); Hemoglobin 6.9 g/dL (14.0-18.0); Mean Corpuscular Hemoglobin 30.5 pg (25.0-34.0); Mean Corpuscular Volume 89.4 fL (80.0-100.0); Platelet Count 187 K/uL (130-400); RDW Standard Deviation 65.1 fL (36.4-46.3); Red Blood Count 2.26 M/uL (4.70-6.10); White Blood Count 7.08 K/ul (4.8-10.8)
[2025-06-15] MEDS: FUROSEMIDE 80 MG TAB PO SCH (07:27)
[2025-06-15] MEDS: CIPROFLOXACIN 500 MG TAB PO SCH (08:11)
[2025-06-15] MEDS ORDERED: SODIUM CHLORIDE 0.9% 100 ML IV PRN (09:49)
--- NOTE | 2025-06-15 09:53 | Hospitalist Progress Note ---
Date of Service June 15, 2025 Assessment & Plan (1) Open knee wound: (2) Cellulitis, leg: Plan: This is a 54-year-old male with past medical history significant for alcoholic cirrhosis and ascites with weekly paracentesis, esophageal/duodenal varices, alcohol dependence in remission, portal hypertensive gastropathy, GAVE, thrombocytopenia, COPD, CKD stage IV, chronic anemia, chronic hyponatremia, tobacco use disorder, and others listed below presented to ER with c/o left knee pain. #LLE cellulitis -CT without OM but showing diffuse edema, possible cellulitis and a 2.5 cm cutaneous ulcer of the anteromedial knee with ill-defined phlegmon deep to the ulcer. No discrete abscess identified at this time. -Prior wound culture grew PSA and MSSA -Clinically improving -No fever or leukocytosis -Ortho evaluated, recommended treatment for cellulitis of L knee Plan -Cultures have been negative. switch to ancef and cipro today -Anticipate DC home tomorrow pending Hgb #Decompensated Alcoholic liver cirrhosis with Ascites -Gets paracentesis weekly. Last on 06/12 with 7L removed -No asterixis. No hepatic encephalopathy Plan -Continue home 80mg daily -Continue spironolactone -Lactulose 3 times daily -Xifaxan -Midodrine 10 mg 3 times daily as needed hypotension #Acute on Chronic Anemia #Known esophageal/duodenal varices -Baseline Hgb around 8 -Hgb today 6.9 -No evidence of acute blood loss -No melena hematemesis or brbpr Plan -Transfuse 1 PRBC today. consent obtained -Hgb in AM -Monitor for bleeidng #Chronic hyponatremia Na: 129 and stable #Chronic hypocalcemia #CKD IV -No GRACIELA -Monitor renal function closely -Avoid nephrotoxic agents if possible #History of prolonged QTc Avoid QT prolonging Drugs #History of COPD Not using inhalers Nebs as needed #History of alcohol use currently abstaining #Tobacco use Reports cut back cigarettes Nicotine patch DVT Prophylaxis SCDs I spent a total of 51 minutes coordinating, documenting, and providing care for this patient excluding time spent in the performance of separately billed services. This included personally reviewing all current laboratories and imaging studies, medical reconciliation, outpatient chart review and discussion with specialists Admission and Anticipated Discharge Date Admission Date: June 13, 2025 Subjective Feeling much better today. Patient denies F/C, CP, palpitations, SOB, dyspnea, abd pain, N/V/D. still c/o chronic b/l LE edema Physical Exam Physical Exam: Vitals and labs reviewed General: chronically ill appearing. cachectic. NAD HEENT: EOMI, PERRLA Neck: Supple Cardiac: RRR no rubs gallops or murmurs Lungs: CTA no rhonchi wheezing or rales Abd: Distended. pos fluid wave. bs positive. NT : Deffered MSK: Full ROM. No obvious deformities Ext: 2+ b/l LE pitting edema Skin: Warm, Dry. neither leg has any significant erythema Neuro: AOx3 No focal deficits. Psych: Normal Mood Results & Data Results & Data Vital Signs (Past 12 Hours) Vital Signs Temp Pulse Pulse Resp BP Pulse Ox O2 Del Method 06/15/25 07:08 37.0 C 87 18 104/55 L 93 Room Air 06/15/25 05:32 79 06/15/25 02:34 36.9 C 83 18 118/76 94 Room Air 06/14/25 23:04 91 H 06/14/25 22:58 36.9 C 90 18 125/76 95 Room Air Laboratory Results Abnormal lab results 06/14/25 06/15/25 Range/Units 10:01 05:15 RBC 2.26 L (4.70-6.10) M/uL Hgb 7.0 L 6.9 L* (14.0-18.0) g/dL Hct 21.0 L 20.2 L* (42.0-52.0) % RDW Std Deviation 65.1 H (36.4-46.3) fL RDW Coeff of Ham 19.7 H (11.5-14.5) % MPV 9.0 L (9.4-12.4) fL Sodium 129 L (136-145) mmol/L Carbon Dioxide 19 L (21-32) mmol/L BUN 32 H (6-23) mg/dl BUN/Creatinine Ratio 23.2 H (10-20) Calcium 7.4 L (8.6-10.3) mg/dl
--- NOTE | 2025-06-15 12:11 | Communication Note ---
Date of Service: June 15, 2025 About 90 minutes after blood was running, he c/o dyspnea. evaluated patient again at noon. lungs are clear. he is not diaphoretic. BP stable afebrile and not requiring O2. He now endorses actually missing last week's paracentesis. will consult IR tomorrow for para. SOB likely from volume of blood. will give an extra dose of IV lasix now
[2025-06-15] MEDS: FUROSEMIDE 40 MG/4 ML VIAL IV ONE (12:18)
[2025-06-16 06:46] LABS: Hematocrit (blood only) 24.4 % (42.0-52.0); Hemoglobin 8.1 g/dL (14.0-18.0); Mean Corpuscular Hemoglobin 29.9 pg (25.0-34.0); Mean Corpuscular Volume 90.0 fL (80.0-100.0); Platelet Count 188 K/uL (130-400); RDW Standard Deviation 63.4 fL (36.4-46.3); Red Blood Count 2.71 M/uL (4.70-6.10); White Blood Count 7.89 K/ul (4.8-10.8)
[2025-06-16 07:03] LABS: Anion Gap 5.0 (3-11); Blood Urea Nitrogen 34.0 mg/dl (6-23); Calcium 7.9 mg/dl (8.6-10.3); Carbon Dioxide 20.0 mmol/L (21-32); Chloride 106.0 mmol/L (98-107); Creatinine Clr Calc Pharmacy 62.9 ml/min; Glucose 101.0 mg/dl (70-99(Fasting)); Potassium 4.2 mmol/L (3.5-5.1); Sodium 131.0 mmol/L (136-145)
--- NOTE | 2025-06-16 11:18 | Hospitalist Progress Note ---
Date of Service June 16, 2025 Assessment & Plan (1) Open knee wound: (2) Cellulitis, leg: Plan: This is a 54-year-old male with past medical history significant for alcoholic cirrhosis and ascites with weekly paracentesis, esophageal/duodenal varices, alcohol dependence in remission, portal hypertensive gastropathy, GAVE, thrombocytopenia, COPD, CKD stage IV, chronic anemia, chronic hyponatremia, tobacco use disorder, and others listed below presented to ER with c/o left knee pain. #LLE cellulitis -CT without OM but showing diffuse edema, possible cellulitis and a 2.5 cm cutaneous ulcer of the anteromedial knee with ill-defined phlegmon deep to the ulcer. No discrete abscess identified at this time. -Prior wound culture grew PSA and MSSA -Clinically improving -No fever or leukocytosis -Ortho evaluated, recommended treatment for cellulitis of L knee Plan -Cultures have been negative. switch to ancef and cipro. treat through 06/19 -Anticipate DC home tomorrow pending Hgb #GRACIELA on CKD4 -Cr increased to 1.5 -S/p IV lasix yesterday during blood transfusion, likely secondary to that -Low suspicion for HRS Plan -Recheck BMP in AM -Continue home PO lasix and aldactone, he is overloaded and needs diuretics #Decompensated Alcoholic liver cirrhosis with Ascites -Gets paracentesis weekly. Last on 06/12 with 7L removed -No asterixis. No hepatic encephalopathy Plan -IR consulted for paracentesis -Continue home 80mg daily -Continue spironolactone -Lactulose 3 times daily -Xifaxan -Midodrine 10 mg 3 times daily as needed hypotension #Acute on Chronic Anemia #Known esophageal/duodenal varices -Baseline Hgb around 8 -S/p 1 PRBC on 06/05 -Hgb today 8 -No evidence of acute blood loss -No melena hematemesis or brbpr Plan -Hgb in AM -Monitor for bleeding #Chronic hyponatremia Na: 131 and stable #Chronic hypocalcemia #History of prolonged QTc Avoid QT prolonging Drugs #History of COPD Not using inhalers Nebs as needed #History of alcohol use currently abstaining #Tobacco use Reports cut back cigarettes Nicotine patch DVT Prophylaxis SCDs I spent a total of 53 minutes coordinating, documenting, and providing care for this patient excluding time spent in the performance of separately billed services. This included personally reviewing all current laboratories and imaging studies, medical reconciliation, outpatient chart review and discussion with specialists Admission and Anticipated Discharge Date Admission Date: June 13, 2025 Subjective Feeling much better today. Patient denies F/C, CP, palpitations, SOB, dyspnea, abd pain, N/V/D. still c/o chronic b/l LE edema Physical Exam Physical Exam: Vitals and labs reviewed General: chronically ill appearing. cachectic. NAD HEENT: EOMI, PERRLA Neck: Supple Cardiac: RRR no rubs gallops or murmurs Lungs: CTA no rhonchi wheezing or rales Abd: Distended. pos fluid wave. bs positive. NT : Deffered MSK: Full ROM. No obvious deformities Ext: 2+ b/l LE pitting edema Skin: Warm, Dry. neither leg has any significant erythema Neuro: AOx3 No focal deficits. Psych: Normal Mood Results & Data Results & Data Vital Signs (Past 12 Hours) Vital Signs Temp Pulse Pulse Resp BP Pulse Ox O2 Del Method 06/16/25 09:45 Room Air 06/16/25 08:47 36.4 C L 64 17 114/69 94 Room Air 06/16/25 06:13 70 06/16/25 02:26 36.9 C 75 16 103/63 93 Room Air Laboratory Results Abnormal lab results 06/14/25 06/16/25 Range/Units 10:01 06:03 RBC 2.71 L (4.70-6.10) M/uL Hgb 8.1 L (14.0-18.0) g/dL Hct 24.4 L (42.0-52.0) % RDW Std Deviation 63.4 H (36.4-46.3) fL RDW Coeff of Ham 19.4 H (11.5-14.5) % MPV 8.8 L (9.4-12.4) fL Sodium 131 L (136-145) mmol/L Carbon Dioxide 20 L (21-32) mmol/L BUN 34 H (6-23) mg/dl Creatinine 1.53 H (0.6-1.4) mg/dl BUN/Creatinine Ratio 22.2 H (10-20) Glucose 101 H (70-99(Fasting)) mg/dl Calcium 7.9 L (8.6-10.3) mg/dl Crossmatch See Detail
--- NOTE | 2025-06-16 15:15 | Ultrasound Report ---
ULTRASOUND-GUIDED PARACENTESIS CLINICAL HISTORY: Ascites PROCEDURE: Procedure and risks were explained. Informed consent was obtained. A final timeout was com pleted. A pocket of ascites was identified in the right lower quadrant. The right lower quadrant was prepped and draped in sterile fashion. 1% lidocaine was utilized for skin anesthesia. Utilizing ultrasound guidance, a 5 [place] safety centesis catheter was advanced into the pocket of as cites. Ultrasound image was obtained. A total of 8.6 L of yellow ascites fluid was removed. The joe ter was removed and Band-Aid applied. The patient tolerated the procedure well. Vital signs will be m onitored postprocedure. IMPRESSION: Ultrasound-guided paracentesis as above. Performed, dictated, and signed by Colten Rivas PA-C; to be co-signed by Dr. John Titus. Electronically signed by: John Titus M.D. 06/16/2025 4:08 PM
[2025-06-17 03:24] VITALS: RESP 12; TEMP 98.2; O2SAT 94
[2025-06-17 07:32] LABS: Anion Gap 6.0 (3-11); Blood Urea Nitrogen 31.0 mg/dl (6-23); Calcium 7.7 mg/dl (8.6-10.3); Carbon Dioxide 20.0 mmol/L (21-32); Chloride 106.0 mmol/L (98-107); Creatinine Clr Calc Pharmacy 65.9 ml/min; Glucose 98.0 mg/dl (70-99(Fasting)); Potassium 4.2 mmol/L (3.5-5.1); Sodium 132.0 mmol/L (136-145)
[2025-06-17] MEDS: MIDODRINE HCL 10 MG TAB PO PRN (08:21)
[2025-06-17 10:45] VITALS: PULSE 84
--- NOTE | 2025-06-17 11:20 | Surgery Consultation ---
Date of Consultation June 17, 2025 Assessment & Plan (1) Wounds, multiple open, lower extremity: This is a 54yM with a PMH of homelessness, decompensated alcoholic cirrhosis who undergoes routine paracentesis, acute on chronic anemia, CKD, who presented to the [facility] ED on 06/13/25 with complaints of knee pain. He did undergo a CT of the left knee as this was the knee with most pain and it showed no acute osteomyelitis, cellulitis vs venous stasis vs lymphedema, and a 2.5cm cutaneous ulcer of the anteromedial knee without underlying abscess. Today we have been consulted to evaluate the wounds on patient's bilateral knees. He has been seen by wound care this admission who recommend obtaining our opinion. The patient states his wounds have been present for at least a month. He feels the wounds are getting exposed to the cold/weather and has been on antibiotics for them and they remain present. He denies fevers/chills, CP/SOB, issues with eating. Patient tells me he is suppose to be discharged today. Today blood work shows K 4.2, Cr 1.4, yesterday Hbg 8.1 and WBC 7.8. Vitals stable. On exam patient has multiple wounds around the bilateral knees some with eschar and some with slough; some of them the eschar and slough appear to be loose and peeling up. Patient has been ordered for a diet and has been eating today. He also tells us he is likely going to be discharged today. Discussed the possibility of some debridement to be performed at the bedside if he is able to tolerate and he was agreeable with Dr. Davila. Continue wound care as otherwise outlined dy the wound center and f/u with them as scheduled next week. As above. 3 wounds on his right lower extremity and 1 wound on his left lower extremity were all sharply debrided at the bedside today. Wound care instructions discussed with his nurse. We discussed with the patient to regarding being able to take care of these since he is homeless. He feels strongly that if we send him with supplies he will be able to do it and he has an appointment next Monday I think at the wound clinic. History of Present Illness Attending Physician: Juventino Hatfield, History of Present Illness This is a 54yM with a PMH of homelessness, decompensated alcoholic cirrhosis who undergoes routine paracentesis, acute on chronic anemia, CKD, who presented to the [facility] ED on 06/13/25 with complaints of knee pain. He did undergo a CT of the left knee as this was the knee with most pain and it showed no acute osteomyelitis, cellulitis vs venous stasis vs lymphedema, and a 2.5cm cutaneous ulcer of the anteromedial knee without underlying abscess. Today we have been consulted to evaluate the wounds on patient's bilateral knees. He has been seen by wound care this admission who recommend obtaining our opinion. The patient states his wounds have been present for at least a month. He reports intermittent locking up of his left knee that is now improved and he has full range of motion. He feels the wounds are getting exposed to the cold/weather and has been on antibiotics for them and they remain present. He denies fevers/chills, CP/SOB, issues with eating. Patient tells me he is suppose to be discharged today. Allergies Allergy/AdvReac Type Severity Reaction Status Date / Time Penicillins Allergy Unknown pt unsure Verified 05/30/25 20:54 of reaction Home Medications Medication Instructions Recorded Confirmed Type furosemide 80 mg tablet 80 mg PO QAM #60 tabs 05/28/25 06/13/25 Rx spironolactone 100 mg tablet 200 mg (2 x 100 mg) PO QAM 30 days 05/28/25 06/13/25 Rx #60 tabs lactulose 10 gram/15 mL oral 30 ml PO BID 06/13/25 06/13/25 History solution (Constulose) nicotine 21 mg/24 hr daily 1 patch topical QAM 06/13/25 06/13/25 History transdermal patch Patient History Medical History Hypervolemia Symptomatic anemia hospitalized [facility] 02/26/24 for issues related to this Poor historian main details obtained from [facility] record Alcoholic cirrhosis of liver with ascites hospitalized [facility] 02/26/24 for issues related to this Metabolic encephalopathy hospitalized [facility] 02/26/24 for issues related to this PAF (paroxysmal atrial fibrillation) pt denies; hospitalized [facility] 02/26/24, evaluated by tae garcia per cardio consult Esophagitis History of severe sepsis hospitalized 02/26/24, [facility] 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 per med record; hospitalized [facility] 02/26/24 for issues related to this Orthostatic hypotension "he thinks" COPD (chronic obstructive pulmonary disease) History of pneumonia 07/2023, 02/26/24, hospitalized [facility] 02/26/24 for issues related to this S/P abdominal paracentesis 03/21/2024, [facility] Current every day smoker Surgical History History of esophagogastroduodenoscopy (EGD) S/P cataract extraction right eye/left History of tonsillectomy History of hernia surgery infancy Family History Mother Stroke Diabetes Other Colorectal cancer Heart disease Social History Smoking Status: Current every day smoker Tobacco Type: Cigarettes Cigarettes Per Day: 1.5-2; Second Hand Exposure: No; Do You Dip or Chew Tobacco: No; Hx Alcohol Use: Yes Alcohol type: beer, wine and hard liquor Hx Substance Use: Yes Substance Use Type Other:: marijuana Preferred Language: Nepali Communication Ability: Effective Department Editor Required: No Beliefs That Will Affect Care: None Current Living Situation: Alone Current Living Situation Comment: homeless Feels Safe at Home: Yes Assistive Devices: None Review of Systems Constitutional: no fever and no chills Respiratory: no dyspnea Cardiovascular: no chest pain Gastrointestinal: no nausea Integumentary: presented with left knee pain and has multiple wounds on bilateral knees Physical Exam Physical Exam: awake/alert, no distress Respiratory: normal respiratory effort Skin: patient has multiple wounds around the bilateral knees some with eschar and some with slough; some of them the eschar and slough appear to be loose and peeling up Results & Data Vital Signs (Past 12 Hours) Vital Signs Temp Pulse Pulse Resp BP Pulse Ox O2 Del Method 06/17/25 10:44 98.2 F 84 151/77 H 06/17/25 08:14 80 06/17/25 08:00 Room Air 06/17/25 03:23 98.2 F 80 12 127/61 94 Room Air Diagnostic Findings CT knee LT w con HISTORY: 54 years-old Male chronic wounds, concern for joint, abscess soft tissue swelling with chronic wound. Clinical concern for acute osteomyelitis. COMPARISON: Knee radiographs of same day TECHNIQUE: Multiple axial CT images of the left knee were obtained with IV contrast. A dose lowering technique was used consistent with the principals of ALARA. FINDINGS: There is diffuse extensive subcutaneous edema. No soft tissue mass or drainable fluid collection. There is a small joint effusion of the knee. Superficial venous varicosities. 2.5 x 2.1 cm cutaneous ulcer of the anteromedial knee on image 175 series 3. T there is ill-defined focal subcutaneous fluid deep to the ulcer extending towards the medial patella on image 188 series 3 without well- defined margins and mild peripheral enhancement. There is diffuse dermal thickening. Mild marginal spurring of the knee. Demineralized appearance of the bones. No acute fracture, dislocation or osseous erosion. Moderate medial joint space narrowing. Mild subchondral sclerosis of the medial femoral condyle is likely secondary to the arthritis. Avascular necrosis considered less likely. IMPRESSION: 1. No CT evidence of acute osteomyelitis. 2. Diffuse subcutaneous edema suggestive of cellulitis, venous stasis versus lymphedema. 3. 2.5 cm cutaneous ulcer of the anteromedial knee with ill-defined phlegmon deep to the ulcer. No discrete abscess identified at this time. 4. Small joint effusion of the knee. ACT 112: Negative or not required by law. The above report was generated using voice recognition software. It may contain grammatical, syntax or spelling errors. Electronically signed by: Colton Arango M.D. 06/13/2025 1:44 PM PG Care Time/CCT Total # of Minutes Spent Total Time Spent with Patient: Total time spent is greater than 50% in coordination of care (as documented) at patient's floor/unit and/or counseling patient: Coding Level of Care Code 35010 IN/OBS CONSULT LVL 2,35M Diagnoses Wounds, multiple open, lower extremity S81.809A
--- NOTE | 2025-06-17 12:41 | Operative Report ---
PG Post Operative Report Pre & Post Diagnosis pre-op diagnosis: right lower extremity wounds x 3; left lower extremity wound x 1 post-op diagnosis: right lower extremity wounds x 3. left lower extremity wound x 1 I identified the patient and participated in the time-out.: Yes Procedure 1. sharp debridement of right lower extremity wound down to muscle 4 cm x 3 cm 2. sharp debridement of right lower extremity wound down to muscle 2 cm x x cm 3. sharp debridement of right lower extremity wound down to muscle 3 cm x 2 cm 4. sharp debridement of left lower extremity wound down to sub cutaneous tissue Surgeon Colten Davila, DO Lead Assistant Manager none Estimated Blood Loss 5 Findings Consistent with Post-Op Diagnosis Specimens none Description of Procedure after informed consent was obtained while in the patient's bed we sterilely prepped the wound beds. Using a forcep and a 15 blade scalpel I was able to sharply debride black eschar from the 3 wounds on the right lower extremity. All of these were the same and involved skin down to muscle. All the tissue was discarded. The wound bed was scraped until there was a small amount of bleeding. On left lower extremity wound it was more superficial. There was a central eschar that again I removed using a 15 blade scalpel. This was carried down to subcutaneous tissues. Once all 3 wound beds were cleaned I discussed with nursing and we dressed him with a silver dressing and gauze followed by gauze [place] wrap. We will discuss with wound care regarding potential Santyl ointment placed to the wound beds upon discharge. He villasenor I attest to the content of the Intraoperative Record and any orders documented therein. Any exceptions are noted below.
--- NOTE | 2025-06-17 13:38 | Discharge Summary ---
Discharge Summary Date of Service June 17, 2025 Principal Dx & Hospital Course #1 = Principal Diagnosis (1) Open knee wound: (2) Cellulitis, leg: This is a 54-year-old male with past medical history significant for alcoholic cirrhosis and ascites with weekly paracentesis, esophageal/duodenal varices, alcohol dependence in remission, portal hypertensive gastropathy, GAVE, thrombocytopenia, COPD, CKD stage IV, chronic anemia, chronic hyponatremia, to bacco use disorder, and others listed below presented to ER with c/o left knee pain. He was diagnosed with L knee cellulitis. CT showing cellulitis. Ortho evaluated, low suspicion for joint or bone involvement. he improved very quickly on ancef+ cipro. He will complete a 7 day course with keflex+ cipro. He also was anemic and had 1 PRBC with appropriate and stable Hgb following transfusion. He had mild GRACIELA which improved. He underwent paracentesis yesterday with 8.6L clear yellow fluid removed. he gets weekly paracentesis as OP. No abd pain, fevers to suggest peritonitis. He also has chronic lower extremity and sacral wounds, POA. Per wound care documentation, these wounds are unstageable . Wound care evaluated today and recommended surgery eval for debridement. s/p bedside debridement today by surgery. He has an appt with wound care next week, jun 24. #LLE cellulitis -CT without OM but showing diffuse edema, possible cellulitis and a 2.5 cm cutaneous ulcer of the anteromedial knee with ill-defined phlegmon deep to the ulcer. No discrete abscess identified at this time. -Prior wound culture grew PSA and MSSA -Clinically improving -No fever or leukocytosis -Ortho evaluated, recommended treatment for cellulitis of L knee #GRACIELA on CKD4 -Cr improved today -Low suspicion for HRS #Decompensated Alcoholic liver cirrhosis with Ascites -Gets paracentesis weekly. Last on 06/12 with 7L removed -No asterixis. No hepatic encephalopathy Plan -IR consulted for paracentesis -Continue home 80mg daily -Continue spironolactone -Lactulose 3 times daily -Midodrine 10 mg 3 times daily as needed hypotension #Acute on Chronic Anemia #Known esophageal/duodenal varices -Baseline Hgb around 8 -S/p 1 PRBC on 06/05 -Hgb stable -No evidence of acute blood loss -No melena hematemesis or brbpr #Chronic hyponatremia Na: 131 and stable #Chronic hypocalcemia #History of prolonged QTc Avoid QT prolonging Drugs #History of COPD Not using inhalers Nebs as needed #History of alcohol use currently abstaining #Tobacco use Reports cut back cigarettes Nicotine patch DVT Prophylaxis SCDs I spent a total of 44 minutes coordinating, documenting, and providing care for this patient excluding time spent in the performance of separately billed services. This included personally reviewing all current laboratories and imaging studies, medical reconciliation, outpatient chart review and discussion with specialists Notes For Next Care Provider Medication Changes From Visit keflex and cipro through 06/19 Admission HPI Per Admitting Provider This is a 54-year-old male with past medical history significant for alcoholic cirrhosis and ascites with weekly paracentesis, esophageal/duodenal varices, alcohol dependence in remission, portal hypertensive gastropathy, GAVE, thrombocytopenia, COPD, CKD stage IV, chronic anemia, chronic hyponatremia, tobacco use disorder, and others listed below presented to ER with c/o left knee pain. Per inpatient chart review recent [facility] hospitalization 05/18/2025-05/28/2025 for acute hepatic encephalopathy, shock - possible hypovolemia, acute blood loss anemia, received 3 units PRBC, right middle lobe lung collapse, right hemothorax s/p thoracentesis, multiple rib fractures, GRACIELA, rhabdomyolysis, required ICU and pressors. Empirically treated with IV cefepime, Flagyl and was transitioned to Augmentin and completed course on 05/25/25. Received octreotide. Per chart review patient was seen in [facility] ER overnight for episode of dizziness he had last night. Patient states since has eaten milk and cookies and denies any nausea or vomiting. Denies any further dizziness. States discharged and while awaiting for transportation this morning he went out to smoke cigarette and walked and had sudden onset pain to left knee aggravated with ROM. He presented back to ER for evaluation of left knee pain. He reports chronic wounds "that are bad" to bilateral knees. He is unable to state if worse than baseline. He states chronic BLE edema that he feels is better than before. He reports has been taking water pills but is unsure if he is taking Lasix daily and spironolactone and reports taking Lactulose however admits hasn't taken in past 2 days. Patient doesn't think that he is taking midodrine or rifaximin. He did have paracentesis completed yesterday and had 7L removed. He reports has been trying to follow fluid restrictions more closely and feels since that hasn't needed as much volume removed with paracentesis. He denies any known fever. Reports has been cold as he is homeless and out in the cold. Denies JUAREZ, CP, SOB, orthopnea, palpitations, cough, rhinorrhea, abdominal pain, paresthesias, other rashes, urinary symptoms. Discussed patient with ER provider. ER provider has call to ortho and awaiting call back Discharge Exam Constitutional: Alert, nontoxic HEENT: Mucous membranes moist. Lungs: Clear to auscultation, decreased, no wheezes rales or rhonchi CV: S1-S2, regular Abdomen: Soft, significantly less distended after paracentesis, no tenderness, no guarding Extremities: Chronic lower extremity edema Neuro: No focal deficits Psych: Cooperative, normal mood Updated Medication List Medication Instructions Recorded Confirmed Type furosemide 80 mg tablet 80 mg PO QAM #60 tabs 05/28/25 06/13/25 Rx spironolactone 100 mg tablet 200 mg (2 x 100 mg) PO QAM 30 days 05/28/25 06/13/25 Rx #60 tabs lactulose 10 gram/15 mL oral 30 ml PO BID 06/13/25 06/13/25 History solution (Constulose) nicotine 21 mg/24 hr daily 1 patch topical QAM 06/13/25 06/13/25 History transdermal patch cephalexin 500 mg capsule 500 mg PO BID 3 days #6 caps 06/17/25 Rx ciprofloxacin HCl 500 mg tablet 500 mg PO BID 3 days #6 tabs 06/17/25 Rx Hospital Stay Data Consultations 06/13/25 14:28 ED Decision to Admit Stat 06/13/25 16:39 Consult Orthopedic Surgery Routine 06/17/25 08:50 Consult General Surgery Routine Diagnostic Imagining Performed 06/13/25 12:19 CT knee LT w con Stat 06/16/25 07:20 IR paracentesis abd w/img US Routine Pending Results Patient Have Any Pending Studies at Discharge: No Discharge Instructions Given to Patient (Per Discharging Provider) Finish taking your antibiotics as prescribed. Follow up with your usual paracentesis appointment. follow up with wound care next week. Total Time Total Time Spent Total Time Spent (In Minutes): 44
[2025-06-17 14:25] VITALS: BP 116/70
[2025-06-17] MEDS: COLLAGENASE OINT 30 GM TUBE EXT SCH (14:43)
[2025-06-18] MEDS ORDERED: COLLAGENASE OINT 30 GM TUBE EXT SCH (09:00)
--- NOTE | 2025-06-20 08:08 | Coding Query ---
DEBRIDEMENT DOCUMENTATION To promote full compliance with coding requirements relating to patient care, physician participation is requested in all cases of travel sales consultant uncertainty. Please assist us with the question(s) below: Please place an X in the parenthesis (x). If other, please document the finding: Type of Debridement: ( x) Excisional Debridement- Cutting away necrotic, devitalized tissue or slough to the level of viable tissue using a sharp instrument (i.e. scalpel, scissors, etc.) ( ) Non Excisional Debridement- The removal of necrotic, devitalized tissue or slough by means of scraping, mechanical brushing, flushing, or washing (i.e. irrigation,whirlpool);minor removal of loose fragments. ( ) Other (please specify): Depth of Debridement: ( ) Skin ( x) Skin and Subcutaneous Tissue ( ) Skin, Subcutaneous Tissue and Muscle ( ) Skin, Subcutaneous Tissue, Muscle and Bone ( ) Other (please specify): Please Specify the Size of Debridement in cm2: 26 square cm Thank you Erica Jay,[facility] HOSPITALXiang
== END 2025-06-17 14:50 | disposition home or self-care (01) | DRG 571 ==
LOC: ED 10:58 → 2W 14:45 → INTOOBSV 14:45 → SUATTDRO 14:45 → 2W 15:50 → 2N 22:02

== ENCOUNTER 2025-06-17 19:36 | Inpatient (IN) ==
[2025-06-17 20:37] LABS: Hematocrit (blood only) 28.1 % (42.0-52.0); Hemoglobin 9.4 g/dL (14.0-18.0); Immature Granulocytes # (auto) 0.07 K/uL (0.01-0.20); Immature Granulocytes % (auto) 0.7 %; Mean Corpuscular Hemoglobin 30.2 pg (25.0-34.0); Mean Corpuscular Volume 90.4 fL (80.0-100.0); Platelet Count 209 K/uL (130-400); RDW Standard Deviation 64.0 fL (36.4-46.3); Red Blood Count 3.11 M/uL (4.70-6.10); White Blood Count 10.17 K/ul (4.8-10.8)
[2025-06-17 20:56] LABS: Alanine Aminotransferase 4.0 U/L (7-52); Albumin Globulin Ratio 0.5 (0.9-2); Albumin Level 2.4 gm/dl (3.4-5.0); Alkaline Phosphatase 106.0 U/L (34-104); Anion Gap 6.0 (3-11); Bilirubin,Total 0.9 mg/dl (0.2-1.0); Blood Urea Nitrogen 31.0 mg/dl (6-23); Calcium 7.8 mg/dl (8.6-10.3); Carbon Dioxide 20.0 mmol/L (21-32); Chloride 102.0 mmol/L (98-107); Creatinine Clr Calc Pharmacy 57.5 ml/min; Globulin 4.6 gm/dl (2.5-4.0); Glucose 149.0 mg/dl (70-99(Fasting)); Potassium 4.6 mmol/L (3.5-5.1); Sodium 128.0 mmol/L (136-145); Total Protein 7.0 gm/dl (6.0-8.3)
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
[2025-06-17] MEDS: CIPROFLOXACIN 500 MG TAB PO STA (22:09)
--- NOTE | 2025-06-17 23:14 | Ultrasound Report ---
Exam(s): US VENOUS LEFT LOWER EXTREMITY EXAM: US Duplex Left Lower Extremity Veins CLINICAL HISTORY: Reason for exam: LLE pain, edema, "worse than when I was here". TECHNIQUE: Real-time duplex ultrasound scan of the left lower extremity veins integrating B-mode two-dimensional vascular structure, Doppler spectral analysis, color flow Doppler imaging and compression. COMPARISON: No relevant prior studies available. FINDINGS: Deep veins: No DVT in the visualized common femoral, femoral, proximal deep femoral or popliteal veins. The veins demonstrate normal color flow, are normally compressible, with normal phasic flow and/or augmentation response. Superficial veins: No thrombus in the visualized great saphenous vein. Soft tissues: Soft tissue edema. IMPRESSION: No evidence of acute DVT. Electronically signed by: Juan Trammell M.D. 06/17/25 23:13 PM
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
[2025-06-18] MEDS: ACETAMINOPHEN 325 MG TAB PO STA (00:08)
[2025-06-18 00:24] LABS: Thyroid Stimulating Hormone 4.774 uIu/ml (0.300-4.500)
[2025-06-18] MEDS ORDERED: PROMETHAZINE 6.25 MG/50.25 ML BAG IV PRN (00:46)
[2025-06-18] MEDS ORDERED: ACETAMINOPHEN 500 MG TAB PO PRN (00:46)
[2025-06-18 01:00] LABS: T4 Free Thyroxine 1.07 ng/dl (0.61-1.60)
--- NOTE | 2025-06-18 01:01 | XRay Report ---
EXAM: XR chest 1V portable CLINICAL HISTORY: hyponatremia TECHNIQUE: An X-ray image of the chest is obtained in AP projection. COMPARISON: A comparison is made with the previous CT abdomen and pelvis, as well as the X-ray abdomen, including a chest X-ray, dated June 13, 2025. FINDINGS: The right hemidiaphragm is significantly raised up to 7.3 cm, compared to the left hemidiaphragm, likely due to ascites identified in the last CT abdomen pelvis, dated June 13, 2025. Pulmonary Parenchyma: A small patch of density is identified adjacent to the right heart border. The superimposed right pulmonary artery is also identified. No evidence of collapse. No pulmonary nodules are identified. Radiographically, the right CP angle is acute but slightly hazy. No Radio graphic evidence of pleural effusion or pleural thickening. Radiographically, bilateral Pleural effusion shows interval resolution. Heart and Mediastinum: Senile calcification of their Aortic knuckle is identified. Bilateral hilar and perihilar vascular markings are prominent, which may be due to poor inspiration due to ascites. Heart size and shape are normal. No mediastinal widening or masses. No hilar or mediastinal lymphadenopathy. Bony Thorax: Bony thorax appears intact without fractures or deformities. Soft Tissues: Soft tissues overlying the chest wall are unremarkable. IMPRESSION: 1. A small patch of dens,ty adjacent to the right heart border, likely representing residual and resolving atelectatic changes. Interval decrease is identified. The superimposed right pulmonary artery is also identified. 2. Radiographically, the right CP angle is acute but slightly hazy. Radiographically, bilateral pleural effusion shows complete interval resolution. However an ultrasound of the chest in the upright position is advised to confirm or rule out bilateral pleural effusion 3. The right hemidiaphragm is significantly raised up to 7.3 cm, compared to the left hemidiaphragm, likely due to ascites identified in the last CT abdomen pelvis, dated June 13, 2025. 4. Follow-up is advised. Electronically signed by Timothy Coto 06-18-2025 01:01 AM
[2025-06-18] MEDS: DOXYCYCLINE HYCLATE 100 MG in DEXTROSE 5% MINI-B 100 ML IV STA (01:20)
[2025-06-18] MEDS: SODIUM CHLORIDE 0.9% 500 ML IV ONE (03:07)
[2025-06-18] MEDS: CEFEPIME 2000MG 2,000 MG/20 ML SYR IV SCH (06:17)
[2025-06-18 07:37] LABS: Appearance Urine Clear (Clear); Bacteria Urine Automated None Seen (None Seen); Cast Urine Automated >20 /lpf (0-2); Epithelial Cell Urine Auto 0-2 /hpf (0-2); Glucose Urine UA Negative (Negative); RBC Urine Automated 0-2 /hpf (0-2); WBC Urine Automated 0-5 /hpf (0-5)
[2025-06-18 07:56] LABS: Hematocrit (blood only) 24.8 % (42.0-52.0); Hemoglobin 8.3 g/dL (14.0-18.0); Immature Granulocytes # (auto) 0.06 K/uL (0.01-0.20); Immature Granulocytes % (auto) 0.7 %; Mean Corpuscular Hemoglobin 30.1 pg (25.0-34.0); Mean Corpuscular Volume 89.9 fL (80.0-100.0); Platelet Count 186 K/uL (130-400); RDW Standard Deviation 62.7 fL (36.4-46.3); Red Blood Count 2.76 M/uL (4.70-6.10); White Blood Count 9.16 K/ul (4.8-10.8)
[2025-06-18] MEDS: REMOVE NICODERM PATCH SCH (08:13)
[2025-06-18] MEDS: LACTULOSE SYRUP 20 GM/30 ML UDC PO SCH (08:13)
[2025-06-18] MEDS: NICOTINE 21 MG/24 HR TDSY TD SCH (08:13)
[2025-06-18 08:14] LABS: Anion Gap 4.0 (3-11); Blood Urea Nitrogen 35.0 mg/dl (6-23); Calcium 7.8 mg/dl (8.6-10.3); Carbon Dioxide 20.0 mmol/L (21-32); Chloride 105.0 mmol/L (98-107); Creatinine Clr Calc Pharmacy 62.5 ml/min; Glucose 96.0 mg/dl (70-99(Fasting)); Potassium 4.8 mmol/L (3.5-5.1); Sodium 129.0 mmol/L (136-145)
[2025-06-18 08:53] LABS: Hemoglobin A1C 4.9 % (4.5-5.6)
--- NOTE | 2025-06-18 09:25 | Hospitalist Progress Note ---
Date of Service June 18, 2025 Assessment & Plan (1) Hyponatremia: Plan: 54 year old man with history of chronic diastolic heart failure (EF 55%, TTE 2024), COPD, alcoholic cirrhosis, history of GAVE/esophageal varices, portal hypertension, chronic hyponatremia, chronic anemia (baseline hemoglobin of 7-8), thrombocytopenia as per records, past alcohol abuse, ongoing tobacco abuse, recently hospitalized 06/13-06/17/25 for left knee cellulitis and had b/l d ebridement of RLE/LLE wounds who came back on same day of discharge complaining of increased left knee pain. 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 Monitor Based on patient's labs on [employer] and [employer] over the past year, he has chronic kidney disease stage III LE wounds Recent cellulitis S/p debridement by surgery on 06/17/25 Continue antibiotics for now to complete duration from recent discharge Wound care consult Decompensated alcoholic cirrhosis with ascites Gets weekly paracentesis. Last was on 06/16/25 Chronic anemia Hemoglobin stable Thrombocytopenia as per records Ongoing tobacco abuse Counseled regarding smoking cessation Continue nicotine patch DVT prophylaxis. SCDs RE history of GI bleed/thrombocytopenia Full code CM c/s for social issues/homelessness PT/OT keyonna Montes spent a total of 50 minutes coordinating, documenting and providing care for this patient excluding time spent in performance of separately billed services (2) Hypomagnesemia: Admission and Anticipated Discharge Date Admission Date: June 17, 2025 Subjective Patient seen and examined Reports left knee pain and locking up yesterday after discharge necessitating presentation back to the hospital Denied fever, chills, nausea, vomiting Reports none to minimal pain in right knee Reports he is homeless and Out of the cold has no place to stay No other complaints Physical Exam Constitutional: + well hydrated; no acute distress Eyes: PERRL, conjunctivae normal, anicteric sclerae ENMT: external ear and nose normal, oropharynx normal Respiratory: normal respiratory effort, lungs clear to auscultation Cardiovascular: Rate/Rhythm: regular rate and regular rhythm Gastrointestinal (Abdomen): Soft, distended, nontender, +ascites Musculoskeletal: +b/l BIJAN Wounds on anterior and medial left knee as well as on both sides of right knee Neurologic: PERRL, EOMI, accommodation nl, no face palsy, no dysarthria Psychiatric: A+Ox3, euthymic affect Results & Data Results & Data Vital Signs (Past 12 Hours) Vital Signs Temp Pulse Pulse Resp BP BP Pulse Ox 06/18/25 07:41 36.7 C 70 18 102/55 L 96 06/18/25 01:47 06/18/25 01:47 36.9 C 18 134/70 96 06/18/25 01:00 68 20 133/85 98 06/18/25 00:30 77 17 141/87 H 95 06/18/25 00:00 72 16 125/76 97 06/17/25 23:30 138/83 06/17/25 23:30 78 19 138/83 06/17/25 23:00 74 21 140/94 95 06/17/25 22:57 71 17 126/79 97 06/17/25 22:00 73 18 138/89 06/17/25 21:30 70 15 122/77 97 O2 Del Method 06/18/25 07:41 Room Air 06/18/25 01:47 Room Air 06/18/25 01:47 Room Air 06/18/25 01:00 Room Air 06/18/25 00:30 Room Air 06/18/25 00:00 Room Air 06/17/25 23:30 06/17/25 23:30 06/17/25 23:00 Room Air 06/17/25 22:57 Room Air 06/17/25 22:00 06/17/25 21:30 Laboratory Results Abnormal lab results 06/17/25 06/18/25 06/18/25 Range/Units 19:50 06:10 06:51 RBC 3.11 L 2.76 L (4.70-6.10) M/uL Hgb 9.4 L 8.3 L (14.0-18.0) g/dL Hct 28.1 L 24.8 L (42.0-52.0) % RDW Std Deviation 64.0 H 62.7 H (36.4-46.3) fL RDW Coeff of Ham 19.2 H 19.0 H (11.5-14.5) % MPV 8.9 L 8.9 L (9.4-12.4) fL Neut # (Auto) 6.86 H (1.40-6.50) K/uL Lymph # (Auto) 0.88 L 1.05 L (1.20-3.40) K/uL [place] # (Auto) 0.98 H 0.93 H (0.11-0.59) K/uL Eos # (Auto) 1.29 H 1.77 H (0.00-0.50) K/uL Sodium 128 L 129 L (136-145) mmol/L Carbon Dioxide 20 L 20 L (21-32) mmol/L BUN 31 H 35 H (6-23) mg/dl Creatinine 1.59 H 1.46 H (0.6-1.4) mg/dl BUN/Creatinine Ratio 24.0 H (10-20) Glucose 149 H (70-99(Fasting)) mg/dl Calcium 7.8 L 7.8 L (8.6-10.3) mg/dl ALT 4 L (7-52) U/L Alkaline Phosphatase 106 H (34-104) U/L Albumin 2.4 L (3.4-5.0) gm/dl Globulin 4.6 H (2.5-4.0) gm/dl Albumin/Globulin Ratio 0.5 L (0.9-2) TSH 4.774 H (0.300-4.500) uIu/ml Urine Protein 1+ H (Negative) Urine Ketones Trace H (Negative) Urine Blood Trace H (Negative) U Hyaline Cast (Auto) >20 H (0-2) /lpf Hyaline Casts Present A (None Presnt) /lpf Granular Casts Present A (None Prsent) /lpf Urine Osmolality 456 L (500-800) mOsm/kg
[2025-06-18] MEDS: FUROSEMIDE 80 MG TAB PO SCH (12:06)
[2025-06-18] MEDS: SPIRONOLACTONE 100 MG TAB PO SCH (12:06)
[2025-06-18] MEDS: COLLAGENASE OINT 30 GM TUBE EXT SCH (14:00)
[2025-06-18] MEDS: DOXYCYCLINE HYCLATE 100 MG CAP PO SCH (21:26)
[2025-06-19 07:57] LABS: Hematocrit (blood only) 25.6 % (42.0-52.0); Hemoglobin 8.6 g/dL (14.0-18.0); Mean Corpuscular Hemoglobin 30.4 pg (25.0-34.0); Mean Corpuscular Volume 90.5 fL (80.0-100.0); Platelet Count 202 K/uL (130-400); RDW Standard Deviation 63.1 fL (36.4-46.3); Red Blood Count 2.83 M/uL (4.70-6.10); White Blood Count 9.18 K/ul (4.8-10.8)
[2025-06-19 08:17] LABS: Anion Gap 4.0 (3-11); Blood Urea Nitrogen 35.0 mg/dl (6-23); Calcium 7.9 mg/dl (8.6-10.3); Carbon Dioxide 21.0 mmol/L (21-32); Chloride 105.0 mmol/L (98-107); Creatinine Clr Calc Pharmacy 68.7 ml/min; Glucose 90.0 mg/dl (70-99(Fasting)); Potassium 5.2 mmol/L (3.5-5.1); Sodium 130.0 mmol/L (136-145)
--- NOTE | 2025-06-19 09:26 | Hospitalist Progress Note ---
Date of Service June 19, 2025 Assessment & Plan (1) Hyponatremia: Plan: 54 year old man with history of chronic diastolic heart failure (EF 55%, TTE 2024), COPD, alcoholic cirrhosis, history of GAVE/esophageal varices, portal hypertension, chronic hyponatremia, chronic anemia (baseline hemoglobin of 7-8), thrombocytopenia as per records, past alcohol abuse, ongoing tobacco abuse, recently hospitalized 06/13-06/17/25 for left knee cellulitis and had b/l d ebridement of RLE/LLE wounds who came back on same day of discharge complaining of increased left knee pain. Hyponatremia, Acute on chronic CKD 3 Na is 128 on admission (from 132 prior to discharge) Hypervolemic hyponatremia in a patient with decompensated cirrhosis with ascites Na improved to 130 today K is elevated at 5.2 today. Hold spironolactone for now Continue lasix. Continue fluid restriction. Monitor sodium and electrolytes Based on patient's labs on [facility] and [employer] over the past year, he has chronic kidney disease stage III LE wounds Recent cellulitis S/p debridement by surgery on 06/17/25 Continue antibiotics for now to complete duration from recent discharge Wound care consult Decompensated alcoholic cirrhosis with ascites Gets weekly paracentesis. Last was on 06/16/25 Chronic anemia Hemoglobin stable Thrombocytopenia as per records Ongoing tobacco abuse Counseled regarding smoking cessation Continue nicotine patch DVT prophylaxis. SCDs RE history of GI bleed/thrombocytopenia Full code CM c/s for social issues/homelessness. I spent a total of 35 minutes coordinating, documenting and providing care for this patient excluding time spent in performance of separately billed services (2) Hypomagnesemia: Admission and Anticipated Discharge Date Admission Date: June 17, 2025 Subjective Patient seen and examined Reports feeling better today Pain in left knee is better controlled Physical Exam Constitutional: + well hydrated; no acute distress Eyes: PERRL, conjunctivae normal, anicteric sclerae ENMT: external ear and nose normal, oropharynx normal Respiratory: normal respiratory effort, lungs clear to auscultation Cardiovascular: Rate/Rhythm: regular rate and regular rhythm Gastrointestinal (Abdomen): Distended, nontender, +ascites Musculoskeletal: +b/l BIJAN. Clean dressing over wounds on anterior and medial left knee as well as on both sides of right knee Neurologic: PERRL, EOMI, accommodation nl, no face palsy, no dysarthria Psychiatric: A+Ox3, euthymic affect Results & Data Results & Data Vital Signs (Past 12 Hours) Vital Signs Temp Pulse Pulse Resp BP BP Pulse Ox 06/19/25 07:21 37.1 C 78 18 127/75 95 06/19/25 05:34 76 06/19/25 02:55 36.8 C 82 18 133/78 97 06/18/25 22:17 36.9 C 88 18 119/73 93 06/18/25 22:09 89 O2 Del Method 06/19/25 07:21 Room Air 06/19/25 05:34 06/19/25 02:55 Room Air 06/18/25 22:17 Room Air 06/18/25 22:09 Laboratory Results Abnormal lab results 06/19/25 Range/Units 07:26 RBC 2.83 L (4.70-6.10) M/uL Hgb 8.6 L (14.0-18.0) g/dL Hct 25.6 L (42.0-52.0) % RDW Std Deviation 63.1 H (36.4-46.3) fL RDW Coeff of Ham 19.0 H (11.5-14.5) % MPV 9.0 L (9.4-12.4) fL Sodium 130 L (136-145) mmol/L Potassium 5.2 H (3.5-5.1) mmol/L BUN 35 H (6-23) mg/dl BUN/Creatinine Ratio 25.9 H (10-20) Calcium 7.9 L (8.6-10.3) mg/dl
[2025-06-20 06:37] LABS: Anion Gap 4.0 (3-11); Blood Urea Nitrogen 38.0 mg/dl (6-23); Calcium 8.2 mg/dl (8.6-10.3); Carbon Dioxide 20.0 mmol/L (21-32); Chloride 104.0 mmol/L (98-107); Creatinine Clr Calc Pharmacy 67.2 ml/min; Glucose 100.0 mg/dl (70-99(Fasting)); Magnesium 1.6 mg/dl (1.7-2.4); Potassium 5.0 mmol/L (3.5-5.1); Sodium 128.0 mmol/L (136-145)
[2025-06-20 08:11] VITALS: PULSE 69; RESP 16; TEMP 97.9; O2SAT 97
[2025-06-20] MEDS: MAGNESIUM OXIDE 400 MG TAB PO SCH (08:32)
--- NOTE | 2025-06-20 09:52 | Hospitalist Progress Note ---
Date of Service June 20, 2025 Assessment & Plan Admission and Anticipated Discharge Date Admission Date: June 17, 2025 Results & Data Results & Data Vital Signs (Past 12 Hours) Vital Signs Temp Pulse Resp BP BP Pulse Ox O2 Del Method 06/20/25 08:10 36.6 C 69 16 120/78 97 Room Air 06/20/25 03:45 36.9 C 71 18 133/78 95 Room Air 06/19/25 22:21 36.8 C 77 18 119/71 95 Room Air
--- NOTE | 2025-06-20 14:38 | Discharge Summary ---
Date of Service June 20, 2025 Admission HPI Per Admitting Provider History obtained from patient and records. Medical history significant for chronic diastolic heart failure (EF 55%, TTE 2024), COPD, alcoholic cirrhosis, history of GAVE/esophageal varices, portal hypertension, chronic hyponatremia, chronic anemia (baseline hemoglobin of 7-8), thrombocytopenia as per records, past alcohol abuse, ongoing tobacco abuse. Monthly admissions since December,. Recent confinement June 13 to 2024 for left knee cellulitis in the setting of open knee wound. Debridement done at bedside of RLE and LLE wounds. No growth on cultures. Patient discharged yesterday on Keflex and ciprofloxacin course. 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 No trauma. No chest pain, no SOB. No fever, no chills. Patient return to ER for evaluation. Cefazolin and ciprofloxacin administered at the ER. Medical History as above Surgical History : Tonsillectomy, vascular procedure Family History : Colon cancer, DM, stroke Personal/Social history : 1/4 pack daily, past alcohol abuse Admission Exam Per Admitting Provider GENERAL: Comfortable, chronically ill, no respiratory distress SKIN: Pallor, warm HEENT: Pale palpebral conjunctivae, no ptosis, dry buccal mucosa NECK : Supple, no tenderness CHEST : Decreased breath sounds, no tenderness HEART : RRR, no obvious murmurs ABDOMEN: Marked abdominal distention, nontender EXTREMITIES : Bilateral LE erythematous swelling without minimal tenderness (R > L), palpable pulses, no other conspicuous deformities noted NEUROLOGIC : Coherent, no facial asymmetry, no other gross focality Principal Diagnosis Hyponatremia Lower extremity wounds Discharge Exam Constitutional + well hydrated; no acute distress Eyes PERRL, conjunctivae normal, anicteric sclerae ENMT external ear and nose normal, oropharynx normal Respiratory normal respiratory effort, lungs clear to auscultation Cardiovascular Rate/Rhythm: regular rate and regular rhythm Gastrointestinal (Abdomen) Distended, nontender, +ascites Musculoskeletal +b/l BIJAN. Clean dressing over wounds on anterior and medial left knee as well as on both sides of right knee Neurologic PERRL, EOMI, accommodation nl, no face palsy, no dysarthria Psychiatric A+Ox3, euthymic affect Discharge Data Allergies Allergy/AdvReac Type Severity Reaction Status Date / Time Penicillins Allergy Unknown pt unsure Verified 05/30/25 20:54 of reaction Consultations 06/17/25 23:34 ED Decision to Admit Stat Ordered Studies 06/17/25 21:47 US venous doppler LE LT Stat Hospital Course (1) Hyponatremia: (2) Hypomagnesemia: Plan 54 year old man with history of chronic diastolic heart failure (EF 55%, TTE 2024), COPD, alcoholic cirrhosis, history of GAVE/esophageal varices, portal hypertension, chronic hyponatremia, chronic anemia (baseline hemoglobin of 7-8), thrombocytopenia as per records, past alcohol abuse, ongoing tobacco abuse, recently hospitalized 06/13-06/17/25 for left knee cellulitis and had b/l debridement of RLE/LLE wounds who came back on same day of discharge complaining of increased left knee pain. Hyponatremia, Acute on chronic CKD 3 Na is 128 on admission (from 132 prior to discharge) Hypervolemic hyponatremia in a patient with decompensated cirrhosis with ascites Na improved to 130 yesterday. However, patient did not stick to fluid restriction yesterday as he went out to get water which was not counted per RN Na dropped to 127 today Counseled patient about need for limiting free water intake with his hypervolemia Discharged on his home lasix and spironolactone. Reports he still has them LE wounds Recent cellulitis S/p debridement by surgery on 06/17/25 on previous hospitalization Wound was managed by wound care inpatient Completed antibiotics inpatient. Feeling better Wound care supplies provided on discharge. Has appt on at wound clinic CM arranged [facility] who will find his at the boarding home he will stay at Decompensated alcoholic cirrhosis with ascites Gets weekly paracentesis. Last was on 06/16/25 Total Time Total Time Spent Total Time Spent (In Minutes): 45 Total Time Includes: Examination of the Patient, Discharge Planning, Medication Reconciliation and Other Discharge Plan Discharge Items Patient Disposition: Home - Self-Care Reason For Visit: HYPONATREMIA Discharge Diagnosis: Hyponatremia Lower extremity wounds Condition on Discharge: Good Activity: Resume your previous activity Non-emergency contact: Primary Care Provider Call non-emergency contact if: you have any medication questions and your symptoms worsen Follow-up/Referrals: Rina Neil PA-C [Primary Care Provider] - (Date & Time 06/23/2025 12:00 PM Provider: Rina Neil PA-C Family Practice [facility] ) Wound Care,Nurse [Registered Nurse] - 06/24/25 11:00 am ([facility] [address] [place] [address] ) Diet: Heart Healthy and Low Sodium (2gm) Fluids: 1800ml (7 cups) Addtl Attending Provider Instructions: Mr Amador You were hospitalized and managed for the above listed diagnoses Please ensure follow up with your Primary Doctor and wound care clinic. Please take your meds as prescribed and maintain fluid restriction as recommended. It was a pleasure taking care of you Pending Studies at Discharge: No Stand-Alone Forms: My [facility], Smoking Cessation Medications and DC Order Prescriptions: Continued lactulose [Constulose] 10 gram/15 mL solution 30 ml PO BID spironolactone 100 mg Tablet 200 mg PO QAM 30 Days Qty: 60 0RF furosemide 80 mg Tablet 80 mg PO QAM Qty: 60 0RF nicotine 21 mg/24 hr patch 24 hour 1 patch topical QAM Discontinued ciprofloxacin HCl 500 mg Tablet 500 mg PO BID 3 Days Qty: 6 0RF cephalexin 500 mg capsule 500 mg PO BID 3 Days Qty: 6 0RF Discharge Orders: Discharge Order (Routine); Ordered 06/20/25 Ordered By: Adelaida Muniz/Other Patient Handouts: Hyponatremia Dc Admission Data Admit Date/Time: 06/17/25 23:54 Attending Provider: Adelaida Rubio I. Admit Provider: Julio C Barr Primary Care Provider: Rina Neil. Other Providers: [facility],Home Healthcare; Julio C Barr Other Interventions: Discharge Summary Assessment (RN) Last Done: 06/20/25 14:41
[2025-06-20 14:42] VITALS: BP 133/78
== END 2025-06-20 15:22 | disposition home health service (06) | DRG 603 ==
LOC: ED 19:36 → INTOOBSV 23:54 → 2N 23:54

== ENCOUNTER 2025-06-20 18:53 | Observation (INO) ==
[2025-06-20 20:04] LABS: Hematocrit (blood only) 28.2 % (42.0-52.0); Hemoglobin 9.2 g/dL (14.0-18.0); Mean Corpuscular Hemoglobin 29.8 pg (25.0-34.0); Mean Corpuscular Volume 91.3 fL (80.0-100.0); Platelet Count 217 K/uL (130-400); RDW Standard Deviation 62.1 fL (36.4-46.3); Red Blood Count 3.09 M/uL (4.70-6.10); White Blood Count 9.32 K/ul (4.8-10.8)
[2025-06-20] MEDS: SODIUM CHLORIDE 0.9% 250 ML IV ONE (20:07)
[2025-06-20] MEDS: OPTIRAY 320 125ml IV ONE (20:22)
[2025-06-20 20:23] LABS: Immature Granulocytes # (auto) 0.08 K/uL (0.01-0.20); Immature Granulocytes % (auto) 0.9 %; Polychromasia 1+
[2025-06-20 20:24] LABS: Alanine Aminotransferase 6.0 U/L (7-52); Albumin Globulin Ratio 0.5 (0.9-2); Albumin Level 2.5 gm/dl (3.4-5.0); Alkaline Phosphatase 100.0 U/L (34-104); Anion Gap 6.0 (3-11); Bilirubin,Total 0.9 mg/dl (0.2-1.0); Blood Urea Nitrogen 37.0 mg/dl (6-23); Calcium 8.3 mg/dl (8.6-10.3); Carbon Dioxide 21.0 mmol/L (21-32); Chloride 102.0 mmol/L (98-107); Creatinine Clr Calc Pharmacy 67.8 ml/min; Globulin 5.0 gm/dl (2.5-4.0); Glucose 132.0 mg/dl (70-99(Fasting)); Lipase 102.0 U/L (11-82); Magnesium 1.7 mg/dl (1.7-2.4); Potassium 4.9 mmol/L (3.5-5.1); Sodium 129.0 mmol/L (136-145); Total Protein 7.5 gm/dl (6.0-8.3)
[2025-06-20 20:29] LABS: INR 1.2 (0.9-1.1); Prothrombin Time 12.7 Seconds (9.0-12.0)
--- NOTE | 2025-06-20 20:53 | CT Scan Report ---
Exam(s): CT HEAD Without Contrast EXAM: CT Head Without Intravenous Contrast CLINICAL HISTORY: Reason for exam: dizziness. TECHNIQUE: Axial computed tomography images of the head/brain without intravenous contrast. CTDI is 37.01 mGy and DLP is 156.1 mGy-cm. Automated exposure control was utilized for the study. A dose lowering technique was utilized adhering to the principles of ALARA. COMPARISON: 05/18/2025 FINDINGS: Brain: Slight cerebral atrophy, unchanged. The brain is otherwise unremarkable. No acute large vessel infarct or intracranial hemorrhage is seen. Ventricles: Unremarkable. No ventriculomegaly. Bones/joints: Unremarkable. No acute fracture. Soft tissues: Unremarkable. Sinuses: Unremarkable as visualized. No acute sinusitis. Mastoid air cells: Unremarkable as visualized. No mastoid effusion. IMPRESSION: Slight cerebral atrophy, unchanged. The brain is otherwise unremarkable. No acute large vessel infarct or intracranial hemorrhage is seen. Electronically signed by: Alvaro Smalls MD 06/20/25 20:52 PM
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
--- NOTE | 2025-06-20 21:07 | XRay Report ---
Exam(s): XR CXR 1 VIEW EXAM: XR Chest, 1 View CLINICAL HISTORY: Reason for exam: Chest pain, nonspecific. TECHNIQUE: Frontal view of the chest. COMPARISON: 06/17/2025, CT from [id number] FINDINGS: Lungs: 4.4 cm right middle lobe lung mass or atelectasis. There is a partially elevated right diaphragm. The previously seen right effusion is not visible. No new areas of consolidation are identified. Pleural space: Unremarkable. No pneumothorax. Heart: Probable hiatal hernia measuring 7 cm behind the heart. No cardiomegaly. Mediastinum: Unremarkable. Normal mediastinal contour. Bones/joints: Unremarkable. No acute fracture. Vasculature: Embolization coils near the gastroesophageal junction. The aortic arch is mildly calcified but appears nondilated. IMPRESSION: 1. 4.4 cm right middle lobe lung mass or atelectasis. There is a partially elevated right diaphragm. The previously seen right effusion is not visible. No new areas of consolidation are identified. 2. Probable hiatal hernia measuring 7 cm behind the heart. Electronically signed by: Alvaro Smalls MD 06/20/25 21:06 PM
--- NOTE | 2025-06-20 21:15 | CT Scan Report ---
Exam(s): CTA HEAD With Contrast IV Amt: 119cc opti 320 EXAM: CT Angiography Head With Intravenous Contrast CLINICAL HISTORY: Reason for exam: dizziness. TECHNIQUE: Axial computed tomographic angiography images of the head with intravenous contrast. CTDI is 11.74 mGy and DLP is 431.91 mGy-cm. Automated exposure control was utilized for the study. A dose lowering technique was utilized adhering to the principles of ALARA. MIP reconstructed images were created and reviewed. CONTRAST: Patient received 119cc [id number] of IV contrast COMPARISON: No relevant prior studies available. FINDINGS: Right internal carotid artery: Mild calcified plaque in the distal foot internal carotid artery causing 30% stenosis. No aneurysm. Right anterior cerebral artery: Unremarkable. No occlusion or significant stenosis. No aneurysm. Right middle cerebral artery: Unremarkable. No occlusion or significant stenosis. No aneurysm. Right posterior cerebral artery: Unremarkable. No occlusion or significant stenosis. No aneurysm. Right vertebral artery: Unremarkable as visualized. Left internal carotid artery: 30% stenosis of the distal left internal carotid artery. Left anterior cerebral artery: Unremarkable. No occlusion or significant stenosis. No aneurysm. Left middle cerebral artery: Unremarkable. No occlusion or significant stenosis. No aneurysm. Left posterior cerebral artery: Unremarkable. No occlusion or significant stenosis. No aneurysm. Left vertebral artery: Unremarkable as visualized. Basilar artery: Unremarkable. No occlusion or significant stenosis. No aneurysm. IMPRESSION: The anterior, middle, and posterior cerebral arteries appear within normal limits. No aneurysm, vascular malformation, or large vessel occlusion is identified. Electronically signed by: Alvaro Smalls MD 06/20/25 21:13 PM
--- NOTE | 2025-06-20 21:17 | CT Scan Report ---
Exam(s): CTA NECK With Contrast IV Amt: 119cc opti 320 EXAM: CT Angiography Neck With Intravenous Contrast CLINICAL HISTORY: Reason for exam: dizziness. TECHNIQUE: Routine carotid CT angiography protocol was performed with intravenous contrast. NASCET criteria using the distal ICAs for comparison were used for evaluation of stenoses. CTDI is 11.74 mGy and DLP is 431.91 mGy-cm. Automated exposure control was utilized for the study. A dose lowering technique was utilized adhering to the principles of ALARA. MIP reconstructed images were created and reviewed. CONTRAST: Patient received 119cc [id number] of IV contrast COMPARISON: None. FINDINGS: VASCULATURE: Right common carotid artery: Less than 20% stenosis of the right common carotid artery. No dissection. Right internal carotid artery: Calcified plaque causes 20% stenosis of the proximal right internal carotid artery. No dissection. Right external carotid artery: Unremarkable. No occlusion. Right vertebral artery: Unremarkable. No occlusion or significant stenosis. No dissection. Left common carotid artery: Unremarkable. No occlusion or significant stenosis. No dissection. Left internal carotid artery: Unremarkable. Extracranial segment is patent with no occlusion or significant stenosis. No dissection. Left external carotid artery: Unremarkable. No occlusion. Left vertebral artery: 30% origin stenosis of the left vertebral artery. No dissection. Aorta: The aortic arch is mildly calcified but nondilated. There is no aneurysm or dissection. NECK: Bones/joints: Mild degenerative changes in the cervical spine. No acute fracture or subluxation is seen. Mild emphysematous changes in the lung apices. Chronic incompletely healed fracture of the medial head of the left clavicle. Soft tissues: Unremarkable. Lung apices: Clear. CAROTID STENOSIS REFERENCE USING NASCET CRITERIA: % ICA stenosis = (1 - narrowest ICA diameter/diameter of distal cervical ICA) x 100. Mild - <50% stenosis. Moderate - 50-69% stenosis. Severe - 70-94% stenosis. Near occlusion - 95-99% stenosis. Occluded - 100% stenosis. IMPRESSION: Calcified plaque causes 20% stenosis of the proximal right internal carotid artery. No dissection. The remaining arterial structures of the neck are within normal limits. Electronically signed by: Alvaro Smalls MD 06/20/25 21:15 PM
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
[2025-06-21] MEDS ORDERED: ALBUT/IPRATROP 3MG/0.5MG NEB 3 ML VIAL NEB PRN (01:57)
[2025-06-21] MEDS ORDERED: MECLIZINE 12.5 MG TAB PO PRN (01:57)
[2025-06-21 05:42] LABS: Hematocrit (blood only) 24.5 % (42.0-52.0); Hemoglobin 8.1 g/dL (14.0-18.0); Immature Granulocytes # (auto) 0.08 K/uL (0.01-0.20); Immature Granulocytes % (auto) 0.9 %; Mean Corpuscular Hemoglobin 30.0 pg (25.0-34.0); Mean Corpuscular Volume 90.7 fL (80.0-100.0); Platelet Count 199 K/uL (130-400); RDW Standard Deviation 61.8 fL (36.4-46.3); Red Blood Count 2.70 M/uL (4.70-6.10); White Blood Count 8.99 K/ul (4.8-10.8)
[2025-06-21 05:59] LABS: Alanine Aminotransferase 5.0 U/L (7-52); Albumin Level 2.4 gm/dl (3.4-5.0); Alkaline Phosphatase 91.0 U/L (34-104); Anion Gap 4.0 (3-11); Bilirubin,Total 0.7 mg/dl (0.2-1.0); Blood Urea Nitrogen 39.0 mg/dl (6-23); Calcium 8.0 mg/dl (8.6-10.3); Carbon Dioxide 21.0 mmol/L (21-32); Chloride 104.0 mmol/L (98-107); Creatinine Clr Calc Pharmacy 75.4 ml/min; Glucose 133.0 mg/dl (70-99(Fasting)); Magnesium 1.7 mg/dl (1.7-2.4); Potassium 4.9 mmol/L (3.5-5.1); Sodium 129.0 mmol/L (136-145); Total Protein 6.5 gm/dl (6.0-8.3)
[2025-06-21] MEDS: REMOVE NICODERM PATCH SCH (08:00)
[2025-06-21] MEDS: FUROSEMIDE 80 MG TAB PO SCH (08:00)
[2025-06-21] MEDS: LACTULOSE SYRUP 20 GM/30 ML UDC PO SCH (08:00)
[2025-06-21] MEDS: NICOTINE 21 MG/24 HR TDSY TD SCH (08:00)
[2025-06-21] MEDS: SPIRONOLACTONE 100 MG TAB PO SCH (08:00)
[2025-06-21] MEDS: HEPARIN SOD 5,000 UNIT/0.5 ML VIAL SQ SCH (08:00)
--- NOTE | 2025-06-21 09:40 | Communication Note ---
Date of Service: June 21, 2025 Readmitted again after discharge yesterday Reports he had left the hospital, went to [employer] to buy somethings and smoked some cigarettes. Stated he had not eaten much besides what he ate in the hospital and then got quite dizzy, and back to hospital. Exam notable for chronic ill looking man, distended abd, +ascites, +pedal edema, dressing over wounds I think the main factor in patient's readmissions (this is the 3rd admission in the past 8 days) is his homelessness. I reviewed his labs and imaging. CM to assist with addressing social issues Continue [facility] meds Wound care for wound care If patient is still here by Mon, will get his weekly paracentesis. Other plans as detailed in H/P this AM
[2025-06-21] MEDS: COLLAGENASE OINT 30 GM TUBE EXT SCH (13:45)
--- NOTE | 2025-06-21 18:20 | Electrocardiogram Report ---
Test Reason : Blood Pressure : */* mmHG Vent. Rate : 78 BPM Atrial Rate : 78 BPM P-R Int : 184 ms QRS Dur : 94 ms QT Int : 400 ms P-R-T Axes : 47 41 31 degrees QTcB Int : 456 ms Normal sinus rhythm Low voltage QRS Normal ECG When compared with ECG of 13-Jun-2025 00:37, No significant change was found Confirmed by Chandni Dillard (Jaswinder) on 06/21/2025 6:19:55 PM Referred By: REFERRED SELF Confirmed By: Chandni Dillard
[2025-06-22 07:45] VITALS: BP 104/58; RESP 20; TEMP 98.1; O2SAT 93
[2025-06-22 07:56] LABS: Hematocrit (blood only) 23.6 % (42.0-52.0); Hemoglobin 8.1 g/dL (14.0-18.0); Mean Corpuscular Hemoglobin 31.2 pg (25.0-34.0); Mean Corpuscular Volume 90.8 fL (80.0-100.0); Platelet Count 211 K/uL (130-400); RDW Standard Deviation 62.0 fL (36.4-46.3); Red Blood Count 2.60 M/uL (4.70-6.10); White Blood Count 8.05 K/ul (4.8-10.8)
[2025-06-22 08:13] LABS: Anion Gap 4.0 (3-11); Blood Urea Nitrogen 39.0 mg/dl (6-23); Calcium 8.0 mg/dl (8.6-10.3); Carbon Dioxide 21.0 mmol/L (21-32); Chloride 105.0 mmol/L (98-107); Creatinine Clr Calc Pharmacy 79.4 ml/min; Glucose 76.0 mg/dl (70-99(Fasting)); Potassium 5.4 mmol/L (3.5-5.1); Sodium 130.0 mmol/L (136-145)
--- NOTE | 2025-06-22 11:03 | Discharge Summary ---
Date of Service June 22, 2025 Admission HPI Per Admitting Provider 54-year-old male with past medical significant for COPD, portal hypertension, GAVE, duodenal varices, history of secondary esophageal varices with bleeding, history of diastolic heart failure, history of paroxysmal atrial fibrillation, alcoholic cirrhosis, ascites due to alcoholic cirrhosis, severe protein energy moderation, CKD stage IV, thrombocytopenia congenital and hereditary, anemia, history of alcoholism, hyponatremia, ongoing tobacco use presents with dizziness. Patient has multiple admissions. He was just discharged in the morning. He was admitted for hyponatremia and lower extremity wounds. Patient states after getting discharged from the hospital he went out shopping when suddenly felt very dizzy and lightheaded and felt like passing out. A friend came to see him and was very concerned and called 911. Patient also complains of feeling short of breath. He smokes 2 cigarettes daily currently. Says he stopped drinking alcohol from December 2023. Denies any headache. Lights are bothering him. Has some runny nose. No fevers. Denies any chest pain. No nausea .Micturating okay. Moving bowels okay. Has some abdominal pressure. States he is getting paracentesis weekly. Says he is homeless.. Patient states he ambulates without support. Hemodynamics okay currently. Past medical history. As mentioned above. Past surgical history. Colonoscopy and EGD. Tips. Tonsillectomy. Right heart catheterization. Social history. Currently smoking 2 cigarettes daily as per patient. States not drinking alcohol since December 2023. No drug use currently. Family history. Paternal grandfather had colon cancer. Mother had diabetes. Hypertension. Stroke. Admission Exam Per Admitting Provider General- Not in distress Head- atraumatic Eyes- PERRL. ENT- oropharynx clear Neck- supple, no JVD. Lungs- clear to auscultation no wheezing or crackles Heart- regular rhythm; no murmur, no gallop. Abdomen- normal bowel sounds, distended non tender Extremities- b/l lower extremity edema present. wounds seen around b/l knee regions Neuro- alert, oriented PERRL, no facial palsy; no dysarthria; moves extremities Principal Diagnosis Dizziness Homelessness Discharge Exam Constitutional Chronic ill looking Eyes PERRL EOMI ENMT external ear and nose normal, oropharynx normal Respiratory normal respiratory effort, lungs clear to auscultation Cardiovascular Rate/Rhythm: regular rate and regular rhythm Gastrointestinal (Abdomen) Distended, non tender, +ascites Musculoskeletal + b/l LE edema. Clean dressing over leg wounds, healing well Neurologic PERRL, EOMI, accommodation nl, no face palsy, no dysarthria Psychiatric A+Ox3, euthymic affect Discharge Data Allergies Allergy/AdvReac Type Severity Reaction Status Date / Time Penicillins Allergy Unknown pt unsure Verified 05/30/25 20:54 of reaction Consultations 06/20/25 21:33 ED Decision to Admit Stat Ordered Studies 06/20/25 19:58 CT head/brain wo con Stat CTA head w con [CT angio head w con] Stat CTA neck with con [CT angio neck with con] Stat Hospital Course (1) Dizziness: 54-year-old male with past medical significant for COPD, portal hypertension, GAVE, duodenal varices, history of secondary esophageal varices with bleeding, history of diastolic heart failure, history of paroxysmal atrial fibrillation, alcoholic cirrhosis, ascites due to alcoholic cirrhosis, severe protein energy moderation, CKD stage IV, thrombocytopenia congenital and hereditary, anemia, history of alcoholism, hyponatremia, ongoing tobacco use presents with dizziness. Patient has multiple admissions. He was just discharged in the morning. He was admitted for hyponatremia and lower extremity wounds. Patient states after getting discharged from the hospital he went out shopping when suddenly felt very dizzy and lightheaded and felt like passing out. A friend came to see him and was very concerned and called 911. Patient also complains of feeling short of breath. He smokes 2 cigarettes daily currently. Says he stopped drinking alcohol from December 2023. Denies any headache. Lights are bothering him. Has some runny nose. No fevers. Denies any chest pain. No nausea .Micturating okay. Moving bowels okay. Has some abdominal pressure. States he is getting paracentesis weekly. Says he is homeless.. Patient states he ambulates without support. Hemodynamics okay currently. Dizziness Near syncope CT head, CTA head and neck unremarkable Echo from 04/2025 normal EF and grade 1 diastolic dysfunction Hyponatremia Sodium 129 Hypervolemic hyponatremia with history of liver cirrhosis Continue home diuretics Fluid restrictions Lower extremity wounds S/p debridement surgery on 06/17/2025 Completed antibiotics Follow-up with wound care clinic Alcohol liver cirrhosis with ascites Gets weekly paracentesis Last paracentesis 06/16/2025 as per records Continue home diuretics and lactulose The main factor in patient's readmissions (this is the 3rd admission in the past 8 days) is his homelessness. Patient reports all symptoms has resolved today and wants to be discharged. Said he has a place at a half-way to go to Total Time Total Time Spent Total Time Spent (In Minutes): 45 Total Time Includes: Examination of the Patient, Discharge Planning and Medication Reconciliation Discharge Plan Discharge Items Patient Disposition: Home - Self-Care Reason For Visit: DIZZINESS Discharge Diagnosis: Dizziness Hyponatremia Condition on Discharge: Fair Activity: Resume your previous activity Non-emergency contact: Primary Care Provider Call non-emergency contact if: you have any medication questions Follow-up/Referrals: Rina Neil PA-C [Primary Care Provider] - Diet: Heart Healthy Fluids: 1500ml (6 cups) Addtl Attending Provider Instructions: Mr Amador You were managed for the above listed diagnoses Please continue your medications and keep your appointments as previously scheduled Pending Studies at Discharge: No Stand-Alone Forms: [facility] [employer], Smoking Cessation Medications and DC Order Prescriptions: Continued lactulose [Constulose] 10 gram/15 mL solution 30 ml PO BID spironolactone 100 mg Tablet 200 mg PO QAM 30 Days Qty: 60 0RF furosemide 80 mg Tablet 80 mg PO QAM Qty: 60 0RF nicotine 21 mg/24 hr patch 24 hour 1 patch topical QAM Discharge Orders: Discharge Order (Routine); Ordered 06/22/25 Ordered By: Adelaida Rubio Admission Data Admit Date/Time: 06/21/25 00:03 Attending Provider: Adelaida Rubio I. Admit Provider: Main Hunter Primary Care Provider: Rina Neil Other Providers: Main Hunter Other Interventions: Discharge Summary Assessment (RN) Last Done: 06/22/25 11:00
[2025-06-22 11:10] VITALS: PULSE 76
== END 2025-06-22 11:30 | disposition home or self-care (01) | DRG 641 ==
LOC: ED 18:53 → 2N 06-21 00:03 → INTOOBSV 06-21 00:03 → SUATTDRO 06-21 00:03 → 2N 06-21 01:28